=== PATIENT | female | born 1950 | race Caucasian/White ===

== ENCOUNTER 2016-06-29 10:37 | Day surgery (SDC) | payer OTHER ==
[2016-06-11 14:38] VITALS: BMI 43.0
--- NOTE | 2016-06-11 15:29 | PAT Medication Instructions ---
Service Date Jun 11, 2016. Current Home Medication List Aspirin (Aspirin Ec), 81 MG PO QAM Citalopram (Celexa *), 40 MG PO QAM Dicyclomine Hcl (Dicyclomine Hcl), 1-2 TAB PO QID PRN for RN Diphenoxylate/Atropine (Lomotil), 1 TAB PO QID PRN for RN Furosemide (Lasix), 40 MG PO QAM PRN for EDEMA Insulin Glargine (Lantus Solostar), 52 UNITS SQ BID Lisinopril (Zestril), 10 MG PO HS Lisinopril (Zestril), 5 MG PO QAM Lorazepam (Ativan), 0.5 MG PO TID Multivitamin (Multivitamin), 1 TAB PO QAM Omeprazole (Prilosec), 20 MG PO QAM Pramipexole (Mirapex), 0.25 MG PO HS Pregabalin (Lyrica), 150 MG PO BID Quetiapine Fumarate (Seroquel), 400 MG PO HS Rifaximin (Xifaxan), 550 MG PO TID Medication Instructions For Your Scheduled Surgery - Hold the following medications evening prior to surgery: Pramipexole (Mirapex), 0.25 MG PO HS Lisinopril (Zestril), 10 MG PO HS - Hold the following medications the morning of surgery: Multivitamin (Multivitamin), 1 TAB PO QAM Lisinopril (Zestril), 5 MG PO QAM Furosemide (Lasix), 40 MG PO QAM PRN for EDEMA Diphenoxylate/Atropine (Lomotil), 1 TAB PO QID PRN for RN Dicyclomine Hcl (Dicyclomine Hcl), 1-2 TAB PO QID PRN for RN Rifaximin (Xifaxan), 550 MG PO TID - Take the following medications the morning of surgery with a sip of water: Aspirin (Aspirin Ec), 81 MG PO QAM Citalopram (Celexa *), 40 MG PO QAM Pregabalin (Lyrica), 150 MG PO BID Omeprazole (Prilosec), 20 MG PO QAM Lorazepam (Ativan), 0.5 MG PO TID - Take the following medications as scheduled the night before surgery: Quetiapine Fumarate (Seroquel), 400 MG PO HS Pregabalin (Lyrica), 150 MG PO BLorazepam (Ativan), 0.5 MG PO TID Insulin Glargine (Lantus Solostar), 52 UNITS SQ BID Diphenoxylate/Atropine (Lomotil), 1 TAB PO QID PRN for RN Dicyclomine Hcl (Dicyclomine Hcl), 1-2 TAB PO QID PRN for RN Rifaximin (Xifaxan), 550 MG PO TID CHECK BLOOD SUGAR MORNING OF SURGERY ---If blood sugar is greater than 150, take half of your Lantus dose (Lantus 26 units) ---If blood sugar is less than 150, do not take any Lantus morning of surgery If you have any questions please call us at [phone] or [phone] ( [place]) or [phone]
--- NOTE | 2016-06-11 16:15 | DIAGNOSTIC IMAGING REPORT ---
TWO VIEW CHEST CLINICAL HISTORY: Preoperative examination. FINDINGS: PA and lateral chest radiographs are compared to study dated 02/28/2015. The cardiomediastinal silhouette is unremarkable. There is mild atherosclerotic calcification of the thoracic aorta. Chronic interstitial thickening is similar to previous. The lungs and pleural spaces are otherwise clear. Small calcified granulomas are suspected in the lower lobes. There is no pneumothorax. The skeletal structures are osteopenic. Mild degenerative change is noted throughout the thoracic spine. Cholecystectomy clips are seen in the right upper quadrant. IMPRESSION: No active disease in the chest. Electronically signed by: Leonard Landa M.D. 06/11/2016 4:13 PM Dictated Date/Time: 06/11/2016 4:12 PM
[2016-06-11 16:56] LABS: BASO % 0.4 %; BASO ABS # 0.02 K/uL (0-0.2); COMPLETE YES; EOS % 2.3 %; HEMATOCRIT 37.5 % (37-47); IG% 0.2 %; LYMPH % 29.1 %; LYMPH ABS # 1.52 K/uL (1.2-3.4); MEAN CELL VOLUME 85.4 fL (80-100); MEAN CORPUSCULAR HEMOGLOBIN 28.7 pg (25-34); MEAN CORPUSCULAR HGB CONC 33.6 g/dl (32-36); MEAN PLATELET VOLUME 11.7 fL (7.4-10.4); MONO % 8.4 %; NEUT % 59.6 %; PLATELET COUNT 210 K/uL (130-400); RED BLOOD COUNT 4.39 M/uL (4.2-5.4); WHITE BLOOD COUNT 5.23 K/uL (4.8-10.8)
[2016-06-11 17:09] LABS: PROTHROMBIN TIME (PATIENT) 10.7 SECONDS (9.0-12.0)
[2016-06-11 17:26] LABS: BUN/CREATININE RATIO 15.6 (10-20); CALCIUM 9.3 mg/dl (8.5-10.1); CREATININE 1.1 mg/dl (0.60-1.20); POTASSIUM 4.5 mmol/L (3.5-5.1)
--- NOTE | 2016-06-27 13:02 | HISTORY & PHYSICAL EXAMINATION ---
DATE OF ADMISSION: 06/29/2016 CHIEF COMPLAINT: Severe external impingement and small rotator cuff tear of the right shoulder. HISTORY OF PRESENT ILLNESS: Liane is a pleasant 66-year-old female who has been dealing with chronic right shoulder pain. MRI and clinical examination were diagnostic for severe external impingement with possible small cuff tear. After failing years of conservative treatment and multiple injections, she has elected to proceed with a right shoulder arthroscopy. She understands the risks, benefits, alternatives to the procedure and has elected to proceed. PAST MEDICAL HISTORY: Significant for anxiety, insulin-dependent diabetes, GERD, and obesity. PAST SURGICAL HISTORY: Significant for hysterectomy, cholecystectomy, left total knee arthroplasty and removal of scar tissue from her ovaries. MEDICATIONS: Include insulin 52 units twice a day, blood pressure medications 5 mg in the morning and 10 mg in the evening, Lomotil, Prilosec, Mirapex 0.25 mg at night, and Seroquel 400 mg at night. ALLERGIES: INCLUDE SHELLFISH, BEES AND KLONOPIN. FAMILY HISTORY: Noncontributory. SOCIAL HISTORY: She denies any tobacco, alcohol or IV drug use. She does little activity at this time. REVIEW OF SYSTEMS: She complains of right shoulder pain. All other pertinent review of systems is negative. PHYSICAL EXAMINATION: GENERAL: She is awake, alert and oriented x3. She is in no apparent distress. She is very pleasant. HEENT: Pupils are equal, round and reactive to light. Extraocular motion intact. Oral mucosa is pink and moist. VITAL SIGNS: Regular rate per radial pulse. LUNGS: [place] symmetrically bilaterally with no audible breath sounds. ABDOMEN: Soft, nontender, nondistended. MUSCULOSKELETAL: On physical examination of the right shoulder, she has 100 degrees of forward flexion, 100 degrees of abduction and a lot of pain at end ranges. She has significant tenderness to palpation in the subacromial space and a lot of pain over the AC joint. Very positive Neer and Nunn impingement signs. Her whole shoulder is basically sore. IMAGING: MRI of the shoulder shows severe external impingement with a small far anterior rotator cuff tear. There is also fluid in the AC joint and significant bursitis in the anterior subdeltoid space. IMPRESSION: Severe external impingement on the right shoulder with possible small cuff tear and AC joint arthritis. PLAN: I will proceed with a right shoulder arthroscopy to include decompression, possible rotator cuff repair and distal clavicle resection. Postoperatively, she will be placed in an arm sling and discharged to home on oral pain medications.
[~2016-06-29] VITALS: Ht 172.7 cm; Wt 129.0 kg
[~2016-06-29 10:37] MED LIST: ACETAMINOPHEN 500 MG TAB PO SCH; ASPI81TA28 PO; CEFAZOLIN 3000 MG/65 ML D5W 65 ML IV SCH; CLX20 PO; DICY10CA12 PO; DIPH-416 PO; FAMOTIDINE 20 MG TAB PO SCH; FRS/40 PO; GABAPENTIN 300 MG CAP PO SCH; INSDGIPEN SQ; LACTATED RINGER'S 1000ML 1,000 ML IV SCH; LISI-461 PO; LISI-729 PO; LORA-741 PO; MULT-506 PO; PRAM0.129 PO; PREG100C PO; PRLSR20 PO; QUET-206 PO; RIFA550T2 PO; ROPIVACAINE 0.5% 5 MG/ML 30 ML VIAL ONE
--- NOTE | 2016-06-29 10:49 | History & Physical Bridge Note ---
H&P Re-Evaluation Bridge Note: I have examined the patient, reviewed the History & Physical and in the interval since the performance of the History & Physical I have noted the following changes of clinical significance: No changes noted
[2016-06-29 11:13] VITALS: BP 126/69; PULSE 105; TEMP 36.9; O2SAT 92; Ht 172.7 cm; Wt 129.0 kg
[2016-06-29] MEDS ORDERED: ONDANSETRON INJ 2 MG/ML 2 ML VIAL ONE ×2 (11:54→14:06)
[2016-06-29] MEDS ORDERED: PROPOFOL IV EMULSION 10 MG/ML 20 ML VIAL IV ONE (11:54)
[2016-06-29] MEDS ORDERED: DEXAMETHASONE SOD INJ 4 MG/ML VIAL ONE (11:54)
[2016-06-29] MEDS ORDERED: LIDOCAINE HCL 2% 2 ML VIAL (20MG/ML) ONE (11:54)
[2016-06-29] MEDS ORDERED: MIDAZOLAM HCL 1 MG/ML 2ML VIAL ONE (11:55)
[2016-06-29] MEDS ORDERED: FENTANYL CITRATE INJ 50 MCG/1 ML 2 ML VIAL ONE (11:55)
[2016-06-29] MEDS ORDERED: KETOROLAC TROMETHAMINE 30 MG/ML VIAL IV. PRN (13:30)
[2016-06-29] MEDS ORDERED: FENTANYL CITRATE INJ 50 MCG/1 ML 2 ML VIAL IV PRN (13:30)
[2016-06-29] MEDS ORDERED: LABETALOL HCL IV 5 MG/ML 20ML IV PRN (13:30)
[2016-06-29] MEDS ORDERED: ONDANSETRON INJ 2 MG/ML 2 ML VIAL IV PRN ×2 (13:30→15:00)
[2016-06-29] MEDS ORDERED: ATROPINE SULFATE 0.1 MG/ML 5ML SYR IV PRN (13:30)
[2016-06-29] MEDS ORDERED: EpHEDrine SULFATE 50MG/5ML SYR ONE (13:58)
[2016-06-29] MEDS ORDERED: PHENYLEPHRINE HCL INJ 10 MG/ML VIAL ONE (14:10)
[2016-06-29] MEDS ORDERED: ROCURONIUM BROMIDE 10 MG/ML 5 ML VIAL ONE (14:28)
[2016-06-29] MEDS ORDERED: NEOSTIGMINE METHYLSULFATE 5 MG/5 ML SYR ONE (14:28)
[2016-06-29] MEDS ORDERED: GLYCOPYRROLATE INJ 0.2 MG/ML VIAL ONE (14:28)
--- NOTE | 2016-06-29 14:50 | OPERATIVE REPORT ---
DATE OF OPERATION: 06/29/2016 PREOPERATIVE DIAGNOSES: Severe external impingement of the right shoulder with possible small rotator cuff tear and acromioclavicular joint arthritis. POSTOPERATIVE DIAGNOSES: Severe external impingement with small rotator cuff tear of the right shoulder with acromioclavicular joint arthritis. PROCEDURES: Right shoulder diagnostic arthroscopy with limited debridement, acromioplasty, small traumatic rotator cuff repair and distal clavicle resection. SURGEON: Dr. Parker Cazares. PIPE COVERER HELPER: Mitul Vo PA-C, whose assistance was necessary for positioning the arm and helping with instrumentation. ANESTHESIA: General with a right interscalene nerve block. COMPLICATIONS: None. CONDITION: Stable to PACU. INDICATIONS: Liane is a pleasant 66-year-old female who presented to my office with complaints of right shoulder pain. MRI and clinical examination were diagnostic for severe external impingement, acromioclavicular joint arthritis and possible small cuff tear. After failing conservative treatment, she elected to undergo arthroscopy. DESCRIPTION OF PROCEDURE: On 06/29/2016, she arrived at the [facility] for the above procedures. She was seen in the preoperative holding area and the operative extremity was identified and signed. She was given a preoperative antibiotic and a right interscalene nerve block. She was taken back to the operating room, laid on the table in supine position and put under general anesthesia. She was then put into the beachchair position. The right shoulder was prepped and draped in sterile fashion. Time-out was done and the patient and operative extremity was properly identified. A scope was introduced in the posterior portal. Diagnostic arthroscopy showed no cartilage damage to the humeral head or the glenoid. There was a lot of fraying of the labrum. The biceps tendon was slightly frayed on the anterior aspect. The subscapularis was intact. There was a tear at the mid portion of the supraspinatus. The anterior cable of the supraspinatus was intact. The entire infraspinatus and teres minor were intact. An anterior portal was made. A shaver was used to do a limited debridement of the intraarticular structures and the biceps tendon was arthroscopically tenotomized. The scope was then put into the subacromial space. A lateral portal was made. A shaver was used to do a complete subacromial and subdeltoid bursectomy. An ablator was used to tease the coracoacromial ligament off the undersurface of the acromion and a 5-0 mami was used to complete an acromioplasty of a large Bigliani type 3 acromion. A shaver was used to remove any excess debris and attention was turned to the rotator cuff. An additional anterolateral portal was made and Tanya cannulas were placed in each of the lateral portals. A shaver was used to better define the tear. The greater tuberosity was prepared with a ring curette and a microfracture. The rotator cuff was then fixed with an Arthrex modified SpeedBridge configuration with a single 4.75-mm BioComposite SwiveLock suture anchors placed along the medial row and 2 fiber tapes were passed through the cuff and brought down to a single lateral row SwiveLock suture anchor. This gave a nice knotless repair. Multiple pictures were taken. Attention was turned to the distal clavicle. Through the anterior portal, a shaver and ablator were used to skeletonize the distal clavicle. A 5-0 mami was then used to resect the distal 5 mm from the clavicle. Complete resection was checked under direct visualization. A final debris was removed. No other pathology was found. Arthroscopic instruments were removed from the shoulder. Portal sites were closed with 3-0 nylon. She was then placed in a soft dressing and a regular arm sling. She was then extubated, transferred to a litter and taken to the postanesthesia care unit in stable condition. She tolerated the procedure well. I attest to the content of the Intraoperative Record and any orders documented therein. Any exceptio ns are noted below.
[2016-06-29] MEDS ORDERED: OXYC-57 PO (14:56)
[2016-06-29] MEDS ORDERED: SODIUM CHLORIDE 0.9% 1000ML 1,000 ML IV SCH (14:57)
--- NOTE | 2016-06-29 14:57 | Discharge Instructions ---
Discharge Instructions Admission Reason for Admission: Right Shoulder Impingement Syndrome, Pain, Full Th Discharge Discharge Diagnosis / Problem: SAME ABOVE Discharge Goals Goal(s): Decrease discomfort, Improve function Activity Recommendations Activity Limitations: as noted below Lifting Limitations: until after follow-up appointment Exercise/Sports Limitations: until after follow-up appointment Shower/Bathe: may shower/bathe in 3 days . Instructions / Follow-Up Instructions / Follow-Up MEDICATIONS: * Resume previous medications unless instructed otherwise by your surgeon. * Always take pain medication on a full stomach or with food to avoid upset stomach. * Do not drink alcohol or drive while taking narcotics. * Ibuprofen or Tylenol may be taken if narcotic not needed. SPECIAL CARE INSTRUCTIONS: __ None _X_ Keep extremity elevated and iced x 48 hours; apply ice 20-30 minutes 8-10 times/day. May remove at night. _X_ Sling (MAY REMOVE AFTER 48 HOURS ONLY TO SHOWER AND FOR THERAPY) _X_24 hrs/day __ Remove at night __ Shoulder Immobilizer __ 24 hrs/day __ Remove at night _X_ Dressing __ Maintain until seen in office, may shower with plastic over site _X_ Remove dressings in 24-48 hours and then may shower _X_ Cover incisions with band-aids after showering __ Do not remove steri-strips Call physician if chills or temperature rises above 102 degrees or pain unrelieved by prescribed pain medications at . . Current Hospital Diet Patient's current hospital diet: Discharge Diet Recommended Diet: Regular Diet Fluid Restriction: None Procedures Procedures Performed: Right Shoulder arthroscopy, Rotator cuff repair, Acromioplasty, distal- clavicle repair Pending Studies Studies pending at discharge: no Medical Emergencies . Who to Call and When: Medical Emergencies: If at any time you feel your situation is an emergency, please call 911 immediately. . Non-Emergent Contact Non-Emergency issues call your: Primary Care Provider Call Non-Emergent contact if: you have a fever, temperature is above 101.5 . "Provider Documentation" section prepared by Pranav Vo. VTE Core Measure Inpt VTE Proph given/why not?: Treatment not indicated
[2016-06-29] MEDS ORDERED: OXYCODONE/ACETAMINOPHEN 5-325 TAB PO PRN ×2 (15:00)
--- NOTE | 2016-06-29 15:39 | Anesthesiology Progress Note ---
Anesthesia Post Op Note Date & Time Jun 29, 2016 at 15:39 Vital Signs Pain Intensity: 0 Vital Signs Past 12 Hours Date Time Temp Pulse Resp B/P Pulse Ox O2 Delivery O2 Flow Rate FiO2 06/29/16 15:30 36.2 91 16 108/68 97 Nasal Cannula 2 06/29/16 15:20 36.2 94 16 122/53 94 Nasal Cannula 3 06/29/16 15:10 93 16 101/61 95 Mask 15 06/29/16 15:00 95 16 106/62 92 Mask 15 06/29/16 14:53 36.4 102 16 112/61 93 Mask 15 06/29/16 11:13 36.9 105 20 126/69 92 Room Air Notes Mental Status: alert / awake / arousable, participated in evaluation Pt Amnestic to Procedure: Yes Nausea / Vomiting: adequately controlled Pain: adequately controlled Airway Patency, RR, SpO2: stable & adequate BP & HR: stable & adequate Hydration State: stable & adequate Anesthetic Complications: no major complications apparent
[2016-06-29 15:50] VITALS: BP 96/64; PULSE 89; TEMP 36.5; O2SAT 92
[2016-06-29 16:20] VITALS: BP 101/58; PULSE 89; TEMP 36.7; O2SAT 93
[2016-06-29 16:40] VITALS: BP 141/83; PULSE 98; TEMP 36.3; O2SAT 93
--- NOTE | 2016-06-29 17:17 | [facility] Post Operative Brief Note ---
Immediate Operative Summary Operative Date Jun 29, 2016. Pre-Operative Diagnosis Severe external impingement on the right shoulder with small cuff tear and acromioclavicular joint arthritis Post-Operative Diagnosis Severe external impingement on the right shoulder with small cuff tear and acromioclavicular joint arthritis Procedure(s) Performed Right Shoulder arthroscopy, Rotator cuff repair, Acromioplasty, distal- clavicle repair Surgeon Dr. Parker Cazares Dental Hygiene Instructor Surgeon(s) Pranav Vo Estimated Blood Loss 5 ML Findings as above Specimens None per surgeon Complication(s) None Disposition Recovery Room / PACU
== END 2016-06-29 16:50 | disposition home or self-care (01) ==
LOC: C.ACU 10:37
PROVIDERS: ATTEND Orthopaedic Surgery
DX: M25.811 Other specified joint disorders, right shoulder (principal); M75.101 Unspecified rotator cuff tear or rupture of right shoulder, not specified as traumatic; E11.9 Type 2 diabetes mellitus without complications; K21.9 Gastro-esophageal reflux disease without esophagitis; E66.9 Obesity, unspecified; Z79.4 Long term (current) use of insulin; Z79.899 Other long term (current) drug therapy; Z98.890 Other specified postprocedural states

== ENCOUNTER → 2016-10-07 | Outpatient (CLI) | payer OTHER ==
[~2016-10-07] MED LIST changes: -ACETAMINOPHEN 500 MG TAB PO SCH; -CEFAZOLIN 3000 MG/65 ML D5W 65 ML IV SCH; +CITA40TA4 PO; +CLON0.5T3 PO; +DICL1GEL12 TOP; -FAMOTIDINE 20 MG TAB PO SCH; +FLVHFA110 INH; -GABAPENTIN 300 MG CAP PO SCH; +HYDR-5688 PO; -LACTATED RINGER'S 1000ML 1,000 ML IV SCH; -LORA-741 PO; +MELO7.5T5 PO; +METH1TAB7 PO; +NVLG SQ; +OXYC-57 PO; +PREG1CAP70 PO; +QUET400T PO; -ROPIVACAINE 0.5% 5 MG/ML 30 ML VIAL ONE; +VNTHFA/IN INH
--- NOTE | 2016-10-07 13:09 | DIAGNOSTIC IMAGING REPORT ---
CHEST 2 VIEWS ROUTINE CLINICAL HISTORY: Cough. Congestion. COMPARISON STUDY: Chest radiograph June 11, 2016. FINDINGS: Lung volumes are normal. No pneumothorax or pleural effusion is present. There is no consolidation to suggest pneumonia. Pulmonary vascularity is normal. There are cholecystectomy clips. Cardiomediastinal silhouette is normal. A left lower lung nodular density is unchanged from earlier studies. This is benign. IMPRESSION: No acute cardiopulmonary findings. Electronically signed by: Nolan Gastelum M.D. 10/07/2016 1:08 PM Dictated Date/Time: 10/07/2016 1:06 PM
== END | disposition home or self-care (01) ==
LOC: C.RAD 12:00
PROVIDERS: ATTEND Physician Assistant Medical
DX: J22 Unspecified acute lower respiratory infection (principal)

== ENCOUNTER 2017-01-22 11:30 | Emergency (ER) | payer OTHER ==
[~2017-01-22] VITALS: Ht 172.7 cm; Wt 120.6 kg
[~2017-01-22 11:30] MED LIST changes: -CITA40TA4 PO; -CLON0.5T3 PO; -DICL1GEL12 TOP; -FLVHFA110 INH; -HYDR-5688 PO; -MELO7.5T5 PO; -METH1TAB7 PO; -NVLG SQ; -OXYC-57 PO; -PREG1CAP70 PO; -QUET400T PO; -VNTHFA/IN INH
[2017-01-22 11:37] VITALS: TEMP 36.8; Ht 172.7 cm; Wt 120.6 kg
[2017-01-22] MEDS ORDERED: PREG1CAP70 PO (12:29)
[2017-01-22] MEDS ORDERED: QUET400T PO (12:29)
[2017-01-22] MEDS ORDERED: CITA40TA4 PO (12:29)
[2017-01-22] MEDS ORDERED: METH1TAB7 PO (12:30)
--- NOTE | 2017-01-22 12:50 | DIAGNOSTIC IMAGING REPORT ---
RIGHT FOOT MIN 3 VIEWS ROUTINE, RIGHT ANKLE MIN 3 VIEWS ROUTINE HISTORY: 66 years-old Female R ankle and foot pain; twisted last week Right COMPARISON: Right foot radiographs 09/28/2015 TECHNIQUE: 3 views of the right foot and 3 views of the right ankle FINDINGS: FOOT: Bones are mildly demineralized. Prominent spurring involving the base of the fifth metatarsal is redemonstrated. Mild first MTP joint degenerative changes noted. Nonspecific sclerosis involve the base of the fifth proximal phalanx. No acute fracture or dislocation is identified. Moderate soft tissue swelling is noted about the ankle with small joint effusion. Moderate tibiotalar degenerative changes are noted with prominent spurring about the plantar surface of the calcaneus. Mild dorsal forefoot soft tissue swelling also noted. ANKLE: No acute fracture, dislocation or osteochondral defect. Moderate soft tissue swelling is noted about the ankle, greatest medially with small joint effusion. Moderate tibiotalar degenerative changes are noted. There is prominent spurring of the plantar surface calcaneus. Mild pes planus deformity. IMPRESSION: 1. Moderate soft tissue swelling about the ankle, greatest medially with small joint effusion. No acute bony abnormality of the right foot or ankle. 2. Degenerative changes as above. The above report was generated using voice recognition software. It may contain grammatical, syntax or spelling errors. Electronically signed by: Caleb Campos M.D. 01/22/2017 12:49 PM Dictated Date/Time: 01/22/2017 12:45 PM
[2017-01-22] MEDS ORDERED: HYDR-5688 PO (13:16)
[2017-01-22 13:34] VITALS: BP 124/106; PULSE 79; O2SAT 93
--- NOTE | 2017-01-23 08:46 | EMERGENCY ROOM VISIT NOTE ---
ED Visit Note First contact with patient: 11:46 Chief Complaint: Right ankle and foot pain. History of Present Illness: Ms. Alejandre is a 66-year-old white female who is brought into the ED via wheelchair complaining of right lateral ankle and right foot pain. Patient reports approximately one week ago she was walking up a flight of stairs. Somebody called her from behind and she twisted her body and reports that in the process she twisted her right ankle and foot. Since that time she has been having pain and swelling over the lateral aspect of the right ankle and the lateral aspect of the foot. She reports initially was mild and has gradually increased in intensity. Currently she describes her pain as a sharp and burning sensation. She rates her discomfort 9/10. She feels that the ankle pain is actually radiating into the foot and it also radiates into the lower tibia/fibula area. She has been taken ibuprofen without relief of her discomfort. Ambulation, weightbearing, inversion, plantar flexion and palpation increases her discomfort. She has not identified any alleviating factors related to the pain. Associated with her pain she has noted swelling; historically she has a history of peripheral neuropathy and reports she always has paresthesias or numbness in the feet and this has not worsened since her injury. She denies hip pain, knee pain. She denies any previous significant injuries or surgeries to her ankle or foot. Review of Systems: As noted above in history of present illness. Past Medical History: Diabetes, hypertension, asthma, unspecified urinary symptoms, status post cholecystectomy, hysterectomy cardiac tumor removal and I& D of perianal abscess. Current Medications: Prilosec, Zestril, Lantus, multivitamins, Lasix, Lomotil, Seroquel, Lyrica, citalopram, Mirapex, Xifaxan, methscopolamine, multivitamins. Allergies to Medications: Clonazepam, colestipol, diphenhydramine, doxycycline, hydralazine, iodine, pseudoephedrine, glyburide, aspartame, at [place], tramadol , glyburide, pioglitazone, rosuvastatin. Social History: Patient is not employed; she feels safe in her home environment ; she denies tobacco and alcohol use. Physical Examination: Vital Signs: Date Time Temp Pulse Resp B/P (MAP) Pulse Ox O2 Delivery O2 Flow Rate FiO2 01/22/17 13:34 79 16 124/106 93 01/22/17 11:37 36.8 95 20 133/77 94 Room Air GENERAL: 66-year-old female in moderate distress due to pain, nontoxic-appearing , afebrile and hemodynamically stable. NEUROLOGICAL: Awake, alert and oriented to person, place and time. Answering questions appropriately and following commands. SKIN: Warm, dry and pink. No soft tissue trauma noted. RIGHT LOWER EXTREMITY: No gross bony deformity. No shortening or malrotation. No tenderness over the hip, thigh, knee or proximal lower leg. Moderate tenderness over the distal aspect of the femur without bony deformity, bony crepitus, swelling or ecchymosis. Moderate tenderness over the lateral ankle with no bony deformity or bony crepitus. There is swelling around the malleolus but no ecchymosis. I did not appreciate any ligamentous laxity on testing. Mild tenderness over the medial malleolus with mild swelling but no bony deformity, bony crepitus or ecchymosis. Over the lateral aspect of the foot including the lateral cuneiform and fourth and fifth metatarsals patient had moderate tenderness without bony deformity or crepitus. There is mild swelling in this area but no ecchymosis. Throughout the foot the skin was warm and pink and capillary refill was brisk. Distal pulses were intact. She was not able to distinguish light sensations because of her neuropathy. ED Course: Patient is assessed as noted above. Patient's medication list was reviewed. Patient was offered pain medication and refused. Right Foot X-Rays: Were read by myself and the radiologist showing no acute fractures or dislocations. Moderate soft tissue swelling noted about the ankle with a small joint effusion and moderate tibiotalar degenerative changes. Right Ankle X-Rays: Were read by myself and the radiologist once again showing no acute fractures or dislocations. Moderate swelling was once again noted as well as degenerative changes. Patient's case was reviewed with Dr. Wisdom; she apparently assessed the patient we agreed on diagnostic approach, treatment, disposition and plan. Patient was placed in a gel splint; she was offered a walker but reported she had walker at home. Patient was educated about today's findings and instructed on her treatment plan ; she verbalizes understanding and agreement with this plan. Clinical Impression: Right ankle pain and right foot pain. Disposition: Patient discharged home in stable condition; prior to departure she was reassessed and subjectively reported she was feeling slightly better and rated her discomfort 7/10. Plan: Comfort measures were discussed with the patient including rest, ice, elevation , gel splint and walker use and she was placed on a sliding pain medication scale of acetaminophen and [place]; she was given appropriate narcotic precautions and her name was checked in the state database and no red flags were noted. Patient was encouraged to follow-up with cryptologic support specialist if no better in 5 -6 days. Patient was encouraged return ED for worsening/uncontrolled pain, uncontrolled swelling, worsening numbness/tingling of the foot or any new/concerning symptoms.
== END 2017-01-22 13:35 | disposition home or self-care (01) ==
LOC: C.EDB 11:31 → C.EDD 13:35
DX: M25.571 Pain in right ankle and joints of right foot (principal); M79.671 Pain in right foot; E11.9 Type 2 diabetes mellitus without complications; I10 Essential (primary) hypertension; J45.909 Unspecified asthma, uncomplicated; Z90.710 Acquired absence of both cervix and uterus; Z90.49 Acquired absence of other specified parts of digestive tract; Z79.4 Long term (current) use of insulin; Z79.899 Other long term (current) drug therapy; Z88.8 Allergy status to other drugs, medicaments and biological substances

== ENCOUNTER 2017-01-29 11:56 | Emergency (ER) | payer OTHER ==
[~2017-01-29] VITALS: Ht 172.7 cm; Wt 130.7 kg
[~2017-01-29 11:56] MED LIST changes: -ASPI81TA28 PO; +CITA40TA4 PO; -CLX20 PO; -DICY10CA12 PO; +HYDR-5688 PO; +METH1TAB7 PO; -PREG100C PO; +PREG1CAP70 PO; -QUET-206 PO; +QUET400T PO
[2017-01-29 12:16] VITALS: TEMP 37.1; Ht 172.7 cm; Wt 130.7 kg
[2017-01-29] MEDS ORDERED: MELO7.5T5 PO (12:29)
[2017-01-29] MEDS ORDERED: NVLG SQ (12:32)
[2017-01-29] MEDS ORDERED: VNTHFA/IN INH (12:32)
[2017-01-29] MEDS ORDERED: DICL1GEL12 TOP (12:32)
[2017-01-29] MEDS ORDERED: CLON0.5T3 PO (12:32)
[2017-01-29] MEDS ORDERED: FLVHFA110 INH (12:32)
--- NOTE | 2017-01-29 13:21 | DIAGNOSTIC IMAGING REPORT ---
RIGHT ANKLE 3 VIEWS CLINICAL HISTORY: Right ankle pain. FINDINGS: 3 views of the right ankle are compared to study dated 01/22/2017. The skeletal structures are osteopenic. There is increasing periostitis identified along the distal fibular shaft, likely related to a healing fracture. No acute fracture is seen. The ankle mortise is intact. Degenerative spurring is noted along the anterior tibial plafond and the dorsal aspect of the tarsal bones. There is a large plantar calcaneal enthesophyte. There is a joint effusion as well as soft tissue swelling around the ankle. IMPRESSION: 1. Increasing periostitis is noted along the distal fibular shaft, likely represent a healing fracture/stress fracture. Clinical correlation will be required. 2. Joint effusion and soft tissue swelling. 3. Osteopenia, degenerative change, and large plantar heel spur as above. Electronically signed by: Leonard Landa M.D. 01/29/2017 1:20 PM Dictated Date/Time: 01/29/2017 1:18 PM
[2017-01-29] MEDS ORDERED: HYDR-5688 PO (14:23)
[2017-01-29 14:46] VITALS: BP 104/60; PULSE 94; O2SAT 95
--- NOTE | 2017-01-30 14:22 | EMERGENCY ROOM VISIT NOTE ---
ED Visit Note First contact with patient: 12:27 Chief Complaint: Right ankle pain. History of Present Illness: Ms. Alejandre is a 66-year-old white female who ambulates into the ED with a gel splint on her right ankle complaining of right lateral ankle foot pain. She reports she was seen in the ED last week and was diagnosed with arthritis in her ankle and foot; I saw the patient last week and she was diagnosed with an ankle sprain and told there was degenerative changes related to arthritis in her ankle or foot. She reports since being discharged she has been wearing her ankle splint but because she could not ambulate on crutches she was instructed to use a walker. She reports she uses a walker only at home but does not take it with her. A she reports she's been having ongoing pain over the lateral ankle and lower leg since being discharged. She reports she has contacted Dr. Titus's office for follow-up but has not been given an appointment because he has no openings. Currently she describes the pain as an achy sensation at rest that becomes sharp with ambulation and palpation. She rates her discomfort 9.5/10. Her pain is nonradiating. Her pain worsens with all movement of the ankle, weightbearing, ambulation and palpation. She does report last week she did trip over the sidewalk but did not really injure her ankle. She denies any associated pain including knee pain, foot pain, leg weakness/numbness/tingling. On her last visit she was given [place] for pain and she reports she used her last tablet today; she also reports that was controlling most of her discomfort. Review of Systems: As noted above in history of present illness. Past Medical History: Diabetes, hypertension, asthma, unspecified urinary symptoms, status post cholecystectomy, hysterectomy cardiac tumor removal and I& D of perianal abscess. Current Medications: Prilosec, Zestril, Lantus, multivitamins, Lasix, Lomotil, Seroquel, Lyrica, citalopram, Mirapex, Xifaxan, methscopolamine, multivitamins. Allergies to Medications: Clonazepam, colestipol, diphenhydramine, doxycycline, hydralazine, iodine, pseudoephedrine, glyburide, aspartame, at [place], tramadol , glyburide, pioglitazone, rosuvastatin. Social History: Patient is not employed; she feels safe in her home environment ; she denies tobacco and alcohol use. Physical Examination: Vital Signs: Date Time Temp Pulse Resp B/P (MAP) Pulse Ox O2 Delivery O2 Flow Rate FiO2 01/29/17 14:46 94 104/60 95 01/29/17 14:13 73 16 104/60 97 01/29/17 12:16 37.1 96 18 116/66 95 Room Air GENERAL: 66-year-old female in mild distress due to pain, nontoxic-appearing, afebrile and hemodynamically stable. NEUROLOGICAL: Awake, alert and oriented to person, place and time. Answering questions appropriately and following commands. SKIN: Warm, dry and pink. No soft tissue trauma noted. RIGHT LOWER EXTREMITY: No gross bony deformity. No shortening or malrotation. No tenderness over the hip, thigh, knee or proximal lower leg. Moderate tenderness over the distal aspect of the femur without bony deformity, bony crepitus, swelling or ecchymosis. Moderate tenderness over the lateral ankle with no bony deformity or bony crepitus. There is swelling around the malleolus but no ecchymosis. I did not appreciate any ligamentous laxity on testing. No tenderness over the medial malleolus. Decreased range of motion at the ankle due to pain. No tenderness throughout the foot. Throughout the foot the skin was warm and pink and capillary refill was brisk. Distal pulses were intact. She was not able to distinguish light sensations because of her neuropathy. ED Course: Patient is assessed as noted above. Patient's medication list was reviewed. Right Ankle X-Rays: Were read by myself and the radiologist showing increasing periostitis along the shaft of the distal fibula likely representing a healing/ stress fracture. Joint effusion with soft tissue swelling. Osteopenia, degenerative changes and large plantar calcaneal spur. Patient was placed in a Ortho-Glass ankle stirrup splint. She was encouraged to continue to use her walker. Patient was educated about today's findings and instructed on her treatment plan ; she verbalizes understanding and agreement with this plan. Clinical Impression: Healing right distal fibula fracture. Disposition: Patient discharged home in stable condition; prior to departure she was reassessed and subjectively reported she was feeling slightly better and rated her discomfort 7/10. Plan: Comfort measures were discussed with the patient including rest, ice, elevation , gel splint and walker use and she was placed on a sliding pain medication scale of acetaminophen and [place]; she was given appropriate narcotic precautions and her name was checked in the state database and no red flags were noted. Patient was encouraged to follow-up with orthopedic or definitive care and treatment. Patient was encouraged return ED for worsening/uncontrolled pain, uncontrolled swelling, worsening numbness/tingling of the foot or any new/concerning symptoms.
== END 2017-01-29 14:47 | disposition home or self-care (01) ==
LOC: C.EDB 11:57 → C.EDD 14:47
DX: S82.401D Unspecified fracture of shaft of right fibula, subsequent encounter for closed fracture with routine healing (principal); X58.XXXD Exposure to other specified factors, subsequent encounter; E11.9 Type 2 diabetes mellitus without complications; I10 Essential (primary) hypertension; J45.909 Unspecified asthma, uncomplicated; Z90.49 Acquired absence of other specified parts of digestive tract; Z90.710 Acquired absence of both cervix and uterus; Z79.4 Long term (current) use of insulin; Z79.899 Other long term (current) drug therapy

== ENCOUNTER → 2017-02-13 | Outpatient (CLI) | payer OTHER ==
[~2017-02-13] MED LIST changes: +CLON0.5T3 PO; +DICL1GEL12 TOP; +FLVHFA110 INH; +MELO7.5T5 PO; +NVLG SQ; +VNTHFA/IN INH
--- NOTE | 2017-02-13 13:40 | DIAGNOSTIC IMAGING REPORT ---
RIGHT ANKLE 3 VIEWS CLINICAL HISTORY: Right fibular fracture follow-up. FINDINGS: 3 views of the right ankle are compared to study dated 01/29/2017. A wrap is present around the foot and ankle. The skeletal structures are osteopenic. There is increasing periostitis identified along the distal fibular shaft as compared to 01/29/2017, likely related to a healing fracture. No acute fracture is seen. The ankle mortise is intact. Degenerative spurring is noted along the anterior tibial plafond and the dorsal aspect of the tarsal bones. There is a large plantar calcaneal enthesophyte. There is a joint effusion as well as soft tissue swelling around the ankle. IMPRESSION: 1. Increasing periostitis is noted along the distal fibular shaft, likely represent a healing fracture/stress fracture. Follow-up to resolution is recommended. 2. Joint effusion and soft tissue swelling. 3. Osteopenia, degenerative change, and large plantar heel spur as above. Electronically signed by: Leonard Landa M.D. 02/13/2017 1:38 PM Dictated Date/Time: 02/13/2017 1:37 PM
--- NOTE | 2017-02-26 13:17 | CODING QUERY MEDICAL NECESSITY ---
SUPPORTING DIAGNOSIS NEEDED Luis Miguel HARMON-Demetria, A supporting diagnosis is required for the test/procedure performed on this patient in order for us to be reimbursed by the patient's insurance. Please provide a supporting diagnosis for the following test/procedure listed below next to the test name along with your signature. *If there is no additional diagnosis for this patient that would support the following test/procedure please document that below next to the test/procedure. Test(s)/Procedure(s) that require a supporting diagnosis: * ([id number]) VITAMIN D ASSAY DIAGNOSIS: DATE OF SERVICE: 02/13/17 Provider Signature: Date: Thank you Ernie Kwan [facility] Information Management Once completed, please kindly fax back to [phone] For questions please call [phone]
== END | disposition home or self-care (01) ==
LOC: C.RDSM 12:26
PROVIDERS: ATTEND Physician Assistant
DX: S82.424A Nondisplaced transverse fracture of shaft of right fibula, initial encounter for closed fracture (principal); X58.XXXA Exposure to other specified factors, initial encounter; M84.363A Stress fracture, right fibula, initial encounter for fracture

== ENCOUNTER → 2017-02-13 | Outpatient (CLI) | payer OTHER ==
--- NOTE | 2017-02-26 13:06 | CODING QUERY MEDICAL NECESSITY ---
SUPPORTING DIAGNOSIS NEEDED Luis Miguel HARMON-Demetria, A supporting diagnosis is required for the test/procedure performed on this patient in order for us to be reimbursed by the patient's insurance. Please provide a supporting diagnosis for the following test/procedure listed below next to the test name along with your signature. *If there is no additional diagnosis for this patient that would support the following test/procedure please document that below next to the test/procedure. Test(s)/Procedure(s) that require a supporting diagnosis: * ([id number]) VITAMIN D ASSAY DIAGNOSIS: DATE OF SERVICE: 02/13/17 Provider Signature: Date: Thank you Ernie Kwan [facility] Information Management Once completed, please kindly fax back to [phone] For questions please call [phone]
== END | disposition home or self-care (01) ==
LOC: C.LAB1850 14:05
PROVIDERS: ATTEND Physician Assistant
DX: M84.363A Stress fracture, right fibula, initial encounter for fracture (principal)

== ENCOUNTER → 2017-04-16 | Outpatient (CLI) | payer OTHER ==
--- NOTE | 2017-04-16 10:05 | DIAGNOSTIC IMAGING REPORT ---
R ANKLE MIN 3 VIEWS CLINICAL HISTORY: RIGHT FIBULAR FRACTURE COMPARISON: 02/13/2017 DISCUSSION: Distal fibular fracture with abundant callus formation. The fracture line appears more evident. This could indicate incomplete bony union. No tibial fractures are visualized. The ankle mortise appears intact. There is a plantar calcaneal spur. IMPRESSION: Distal fibular fracture with abundant callus formation. The fracture line is more evident, a finding which may indicate incomplete bony union. Electronically signed by: Jayesh Hamilton M.D. 04/16/2017 10:03 AM Dictated Date/Time: 04/16/2017 10:01 AM
== END | disposition home or self-care (01) ==
LOC: C.RDSM 11:14
PROVIDERS: ATTEND Physician Assistant
DX: S82.301A Unspecified fracture of lower end of right tibia, initial encounter for closed fracture (principal); X58.XXXA Exposure to other specified factors, initial encounter

== ENCOUNTER 2017-08-05 11:26 | Emergency (ER) | payer OTHER ==
[~2017-08-05] VITALS: Ht 172.7 cm; Wt 135.3 kg
[~2017-08-05 11:26] MED LIST changes: -HYDR-5688 PO; +PRAM0.1212 PO; -PRAM0.129 PO
[2017-08-05 11:29] VITALS: Ht 172.7 cm; Wt 135.3 kg
[2017-08-05] MEDS ORDERED: ATOR-22 PO (12:02)
[2017-08-05] MEDS ORDERED: OXYCODONE/ACETAMINOPHEN 5-325 TAB PO ONE (12:30)
--- NOTE | 2017-08-05 12:57 | EMERGENCY ROOM VISIT NOTE ---
ED Visit Note First contact with patient: 11:34 The patient was seen and examined with Misti CHAPMAN. I agree with the history, physical and findings. Please see the note for disposition and details.
[2017-08-05] MEDS ORDERED: LIDOCAINE/EPINEPHRINE 1% 20 ML VIAL INFIL ONE (13:15)
[2017-08-05] MEDS ORDERED: SULFAMETHOXAZOLE/TRIMETHOPRIM DS 800/160MG TAB PO STA (13:39)
[2017-08-05] MEDS ORDERED: CEPHALEXIN MONOHYDRATE 250 MG CAP PO ONE (13:45)
[2017-08-05] MEDS ORDERED: SULF800T23 PO (14:16)
[2017-08-05] MEDS ORDERED: CEPH500C PO (14:16)
--- NOTE | 2017-08-05 14:19 | EMERGENCY ROOM VISIT NOTE ---
ED Visit Note First contact with patient: 11:34 CHIEF COMPLAINT: Infection of the right forehead HISTORY OF PRESENT ILLNESS: This 67-year-old female patient presents to the emergency department by private vehicle with her friend after they noticed a hard, red, tender area on the right forehead. She states the area initially started as a pimple that was very painful and has progressively gotten larger, more painful and tender. She states that now her pain is severe and wraps around her entire head and spreads down both sides of her face. She denies any eye redness, pain, or vision changes. No fever, chills, or loss of appetite. There has been no drainage from the area. There was no injury to the area preceding the infection. They rate the pain as dull and aching and 7/10. Tetanus shot is up to date. They have tried no medications for the pain. The patient is a diabetic. The patient has no history of subcutaneous abscesses. She states she is here because she is concerned this might be shingles, as she had an episode of shingles one year ago on the other side of her forehead that seemed similar. She denies neck pain or stiffness, vision changes, chest pain, shortness of breath, abdominal pain, nausea or vomiting, urinary symptoms. REVIEW OF SYSTEMS: A review of systems was performed with positives and pertinent negatives listed in the history of present illness. All other systems were reviewed and are negative. ALLERGIES: Reviewed in chart. MEDICATIONS: Reviewed in chart. PMH: Reviewed in chart. SOCIAL HISTORY: Lives at home. She is not a smoker. PHYSICAL EXAM: Vital Signs: Reviewed Nurse's notes, vital signs stable. CONSTITUTIONAL: Pleasant and cooperative. No acute distress, but appears to be in pain. Well appearing and well nourished. HEENT: Normocephalic. There is an erythematous, raised and indurated area on the right lateral forehead which measures about 3 cm in diameter. It is fluctuant with central pointing and small scab, but no drainage. There is a zone of inflammation around it but no lymphangitis. PERRL, EOMI, normal conjunctiva and sclera clear bilaterally. Fluorescein uptake was observed with ultraviolet light under slit lamp, noting no dendritic lesions. TMs normal. Pharynx normal. NECK: Supple, full active range of motion without discomfort. No cervical adenopathy. RESPIRATORY: Clear to auscultation bilaterally with no wheezing, crackles, rhonchi or stridor. Equal expansion bilaterally. CARDIOVASCULAR: Regular rate and rhythm with no murmurs, rubs or gallops. Normal peripheral perfusion. No edema. GASTROINTESTINAL: Soft, nontender, nondistended. Bowel sounds present in all quadrants. MUSCULOSKELETAL: Full range of motion of all joints without discomfort. INTEGUMENTARY: No rash or other significant dermatologic conditions noted. NEUROLOGIC: Alert and oriented 4. Cranial nerves II-XII grossly intact. No focal neurologic deficits noted. Normal speech. EMERGENCY DEPARTMENT COURSE: I examined the patient. Differential diagnosis includes rash, abscess, cellulitis, herpes zoster, MRSA, among others. Patient' s history and presentation do not seem consistent with herpes zoster, as her symptoms began as a pimple and has grown larger into a small abscess with surrounding cellulitis. Slit-lamp was performed to the right eye with fluorescein stain, confirming no dendritic lesions to suggest that this is a zoster infection. I obtained verbal consent from the patient to perform the procedure. After chlorhexidine cleansing and 2 mL of 1% buffered lidocaine with epinephrine anesthesia, the abscess was incised with a number 11 scalpel blade. A small amount of purulent material was released with more expressed by pressure. A wound culture was obtained and sent to the lab. The abscess cavity was fully expressed. The abscess cavity was then copiously irrigated with sterile saline under pressure. The wound itself is quite superficial, with no need for packing. After drainage, it was again cleansed with chlorhexidine, bacitracin and Band-Aid were applied. The patient tolerated the procedure well. Hemostasis was achieved. Patient does report a history of exposure to MRSA, will cover for this with Bactrim, as well as Keflex, Rx sent to the pharmacy and patient was given her first doses in the ED. Patient was educated regarding wound care, follow-up, and return precautions, she verbalized understanding. The patient was discharged home in stable condition and ambulatory. Problem List Medical Problems: (1) Allergic rhinitis Status: Chronic (2) Anxiety Status: Chronic (3) Depression Status: Chronic (4) DJD (degenerative joint disease), cervical Status: Chronic (5) DM type 2 (diabetes mellitus, type 2) Status: Chronic (6) Dyslipidemia Status: Chronic (7) GERD (gastroesophageal reflux disease) Status: Chronic (8) Hypertension Status: Chronic (9) IBS (irritable bowel syndrome) Status: Chronic (10) Left Knee DJD Status: Resolved (11) Neuropathy in diabetes Status: Chronic (12) Opioid withdrawal delirium Status: Resolved (13) Osteoporosis Status: Chronic (14) Oxycodone use disorder, severe, dependence Status: Chronic (15) Panic disorder Status: Chronic (16) Venous insufficiency Status: Chronic Surgical Problems: (1) H/O arthroscopic knee surgery Status: Chronic (2) H/O colonoscopy Permanent Comment: 12/07/14- ischemic colitis, hyperplastic polyp Status: Chronic (3) S/P cholecystectomy Status: Chronic (4) S/P hysterectomy Status: Chronic (5) s/p left lung/lymph node biopsy Status: Chronic (6) Total knee replacement status Status: Resolved Current/Historical Medications Scheduled Albuterol Hfa (Ventolin Hfa), 2-4 PUFFS INH Q6H Atorvastatin (Lipitor), 20 MG PO DAILY Cephalexin Monohydrate (Keflex), 500 MG PO QID Citalopram (Citalopram Hydrobromide), 40 MG PO DAILY Fluticasone Propionate (Flovent Hfa), 2 PUFFS INH BID Insulin Aspart (Novolog), 6 UNITS SQ TIDM Insulin Glargine (Lantus Solostar), 52 UNITS SQ BID Lisinopril (Zestril), 10 MG PO HS Lisinopril (Zestril), 5 MG PO QAM Multivitamin (Multivitamin), 1 TAB PO QAM Omeprazole (Prilosec), 20 MG PO QAM Pramipexole (Mirapex), 0.25 MG PO HS Pregabalin (Lyrica), 150 MG PO BID Quetiapine Fumarate (Seroquel), 400 MG PO HS Sulfa/Trimethoprim (Bactrim Ds 800MG/160MG), 1 TAB PO BID Scheduled PRN Clonazepam (Klonopin), 0.5 MG PO UD PRN for Anxiety/Agitation Diphenoxylate/Atropine (Lomotil), 1 TAB PO QID PRN for RN Furosemide (Lasix), 40 MG PO QAM PRN for EDEMA Methscopolamine [place] (Methscopolamine [place]), 2.5 MG PO TID PRN for Diarrhea Rifaximin (Xifaxan), 550 MG PO TID PRN for ABDOMINAL CRAMPING Allergies Coded Allergies: BEE STING (Verified Allergy, Severe, ANAPHYLAXIS, 01/29/17) Iodine (Verified Allergy, Severe, ANAPHYLAXIS, 01/29/17) Aspartame (Unverified Allergy, Unknown, RASH, 01/29/17) Clonazepam (Unverified Allergy, Unknown, ITCHING RASH, 01/29/17) Colestipol (Unverified Allergy, Unknown, RASH, 01/29/17) Diphenhydramine (Unverified Allergy, Unknown, UNKNOWN, 01/29/17) Doxycycline (Unverified Allergy, Unknown, HIVES, 01/29/17) Glimepiride (Unverified Allergy, Unknown, RASH, 01/29/17) Glyburide (Unverified Allergy, Unknown, RASH, 01/29/17) Hydroxyzine (Unverified Allergy, Unknown, MENTAL CONFUSION, 01/29/17) Metformin (Unverified Allergy, Unknown, RASH, 01/29/17) Pioglitazone (Verified Allergy, Unknown, RASH, 01/29/17) Pseudoephedrine (Unverified Allergy, Unknown, JITTERINESS, 01/29/17) Rosuvastatin (Unverified Allergy, Unknown, IRCHING RASH, 01/29/17) Shellfish (Unverified Allergy, Unknown, SWELLING OF FACE AND MOUTH , ) Tramadol (Unverified Allergy, Unknown, NAUSE A VOMITING, 01/29/17) Vital Signs Date Time Temp Pulse Resp B/P (MAP) Pulse Ox O2 Delivery O2 Flow Rate FiO2 08/05/17 14:33 36.7 94 18 124/76 92 08/05/17 14:31 36.7 94 18 124/76 92 Room Air 08/05/17 11:29 36.7 113 20 127/75 93 Room Air Laboratory Results Date/Time Source Procedure Growth Status 08/05/17 13:30 Abscess Face , Right Gram Stain - Final Complete 08/05/17 13:30 Wound Culture - Final Staph. Aureus Mrsa Coag Neg Staphylococcus Complete Medications Administered Medications (Trade) Dose Ordered Sig/Tiarra Route Start Time Stop Time Status Last Admin Dose Admin Oxycodone/ Acetaminophen (Percocet 5-325mg Tab) 1 tab NOW ONCE PO 08/05/17 12:30 08/05/17 12:31 DC 08/05/17 12:40 1 TAB Cephalexin Monohydrate (Keflex Cap) 500 mg NOW ONCE PO 08/05/17 13:45 08/05/17 13:46 DC 08/05/17 13:54 500 MG Trimethoprim/ Sulfamethoxazole (Septra Ds 800/ 160MG Tab) 1 tab NOW STAT PO 08/05/17 13:39 08/05/17 13:42 DC 08/05/17 13:54 1 TAB Departure Information Impression Primary Impression: Abscess of forehead Additional Impression: Cellulitis of forehead Dispostion Home / Self-Care Condition GOOD Prescriptions Cephalexin Monohydrate (Keflex) 500 Mg Cap 500 MG PO QID for 10 Days, #40 CAP Prov: Misti Temple CRNP 08/05/17 Sulfa/Trimethoprim (Bactrim Ds 800MG/160MG) Tab 1 TAB PO BID for 10 Days, #20 TAB Prov: Misti Temple CRNP 08/05/17 Referrals Pranav Sanchez M.D. (PCP) Patient Instructions ED Abscess AlexisndEmiliana, [facility] Additional Instructions You were seen in the Emergency Department for Incision and Drainage of abscess on your forehead. You were prescribed Keflex and Bactrim to be taken for 10 days. Both of these medications are antibiotics to treat your infection, please take as prescribed.. Stop these medications and contact a medical provider if you were to develop any significant adverse side effects including: wheezing, shortness of breath, passing out, vomiting, or a diffuse rash. Always take antibiotics as directed and COMPLETE the ENTIRE course regardless of the improvement of your symptoms. Proper wound care is essential for adequate wound healing and infection prevention. You can shower and clean the wound with soap and water. Do not scour over the wound. Pat dry with a towel. Do not submerse the wound (i.e. bathe or dish wash) until the skin over the wound has fully healed. You can use an antibiotic ointment with a dressing over the wound for the next 3-4 days. After this time you may leave the wound dry and open to the air. If crust develops over the wound you can use a Q-tip to apply a 1:1 peroxide:water solution to clean the wound. Look for signs of worsening infection of the wound including: increased pain, redness swelling, large amount of foul discharge, streaking, or fever/chills. If any of these are noticed you should return to the Emergency Department for further assessment and treatment. As with any laceration you may have received nerve damage to the surrounding tissues. This damage may or may not be permanent. For pain control, you can use the following [id number] medicines (if >12 yo): - Extra strength (500mg/tab) Tylenol (acetaminophen) 1-2 tabs every 6-8 hours as needed. Do not exceed 6 tablets in a 24 hour period. Avoid taking more than 3 grams (3000 mg) of Tylenol per day. This includes any other sources of acetaminophen you may take on a regular basis. - Regular strength (200 mg/tab) Advil (ibuprofen) 1-2 tabs every 4-6 hours as needed. Do not exceed a dose of 2400 mg per day. Please follow-up with your primary care provider in the next 1-2 days for recheck of your infection, or sooner for worsening symptoms. Problem Qualifiers
[2017-08-05 14:33] VITALS: BP 124/76; PULSE 94; TEMP 36.7; O2SAT 92
--- NOTE | 2017-08-09 11:47 | EDITING REQUIRED CODING QUERY ---
TREATMENT RENDERED WITHOUT A DIAGNOSIS To promote full compliance with coding requirements relating to patient care, physician participation is requested in all cases of senior data warehouse architect uncertainty. Please assist us with providing a diagnosis/symptom for the test(s) below: A diagnosis/symptom was not documented. A valid diagnosis/symptom is required to bill all insurances. Please remember that we are unable to code a diagnosis of rule out, probable, possible, questionable, or suspected. Visit that requires a diagnosis: ER Visit 08/05/17 * Please clarify is the Primary Impression is an abscess or cellulitis. Both abscess and cellulitis of the forehead. Diagnoses in the chart have been amended and signed. Provider Signature: Date: Thank you [facility] Information Management Once completed, please kindly fax back to [phone] For questions please call [phone]
== END 2017-08-05 14:34 | disposition home or self-care (01) ==
LOC: C.EDB 11:28 → C.EDD 14:34
DX: L02.01 Cutaneous abscess of face (principal); L03.211 Cellulitis of face; I10 Essential (primary) hypertension; E78.5 Hyperlipidemia, unspecified; E11.40 Type 2 diabetes mellitus with diabetic neuropathy, unspecified; Z79.4 Long term (current) use of insulin; K58.9 Irritable bowel syndrome, unspecified; K21.9 Gastro-esophageal reflux disease without esophagitis; I87.2 Venous insufficiency (chronic) (peripheral); M81.0 Age-related osteoporosis without current pathological fracture; J30.9 Allergic rhinitis, unspecified; F32.9 Major depressive disorder, single episode, unspecified; F41.0 Panic disorder [episodic paroxysmal anxiety]; M47.812 Spondylosis without myelopathy or radiculopathy, cervical region; F11.21 Opioid dependence, in remission; Z96.659 Presence of unspecified artificial knee joint; Z98.890 Other specified postprocedural states; Z90.710 Acquired absence of both cervix and uterus; Z90.49 Acquired absence of other specified parts of digestive tract; Z91.030 Bee allergy status; Z88.8 Allergy status to other drugs, medicaments and biological substances; Z88.1 Allergy status to other antibiotic agents; Z91.013 Allergy to seafood; Z88.5 Allergy status to narcotic agent

== ENCOUNTER → 2017-08-08 | Outpatient (CLI) | payer OTHER ==
[~2017-08-08] MED LIST changes: +ATOR-22 PO; +CEPH500C PO; -DICL1GEL12 TOP; -MELO7.5T5 PO; +SULF800T23 PO
[2017-08-08 12:24] LABS: HEMOGLOBIN A1C 11.8 % (4.5-5.6)
[2017-08-08 12:43] LABS: ALBUMIN 3.5 gm/dl (3.4-5.0); ALKALINE PHOSPHATASE 131 U/L (45-117); ALT/SGPT 56 U/L (12-78); AST/SGOT 36 U/L (15-37); BLOOD UREA NITROGEN 18 mg/dl (7-18); CALCIUM 9.9 mg/dl (8.5-10.1); CARBON DIOXIDE 23 mmol/L (21-32); CREATININE 1.45 mg/dl (0.60-1.20); GLUCOSE 469 mg/dl (70-99); POTASSIUM 4.8 mmol/L (3.5-5.1); SODIUM 128 mmol/L (136-145); TOTAL PROTEIN 7.5 gm/dl (6.4-8.2)
== END | disposition home or self-care (01) ==
LOC: C.LAB1850 11:12
PROVIDERS: ATTEND Internal Medicine Endocrinology, Diabetes & Metabolism
DX: E11.42 Type 2 diabetes mellitus with diabetic polyneuropathy (principal)

== ENCOUNTER → 2017-09-17 | Outpatient (CLI) | payer OTHER ==
[~2017-09-17] MED LIST changes: -CEPH500C PO; +NVLG SC; -NVLG SQ; -SULF800T23 PO
[2017-09-17 16:55] LABS: BLOOD UREA NITROGEN 20 mg/dl (7-18); CALCIUM 9.5 mg/dl (8.5-10.1); CARBON DIOXIDE 27 mmol/L (21-32); CREATININE 1.28 mg/dl (0.60-1.20); GLUCOSE 186 mg/dl (70-99); POTASSIUM 4.2 mmol/L (3.5-5.1); SODIUM 136 mmol/L (136-145)
== END | disposition home or self-care (01) ==
LOC: C.LAB1850 15:23
PROVIDERS: ATTEND Internal Medicine Endocrinology, Diabetes & Metabolism
DX: E11.65 Type 2 diabetes mellitus with hyperglycemia (principal)

== ENCOUNTER 2017-09-21 17:04 | Emergency (ER) | payer OTHER ==
[~2017-09-21] VITALS: Ht 172.7 cm; Wt 140.0 kg
[2017-09-21 17:13] VITALS: TEMP 36.7; Ht 172.7 cm; Wt 140.0 kg
[2017-09-21] MEDS ORDERED: HYDROCODONE/ACETAMIN 5/325MG TAB PO STA (17:30)
[2017-09-21] MEDS ORDERED: ERYTHROMYCIN OP OINT 1 GM PKT OPR STA (17:30)
--- NOTE | 2017-09-21 17:37 | EMERGENCY ROOM VISIT NOTE ---
ED Visit Note First contact with patient: 17:17 CHIEF COMPLAINT: Right eyelid pain and swelling HISTORY OF PRESENT ILLNESS: This 67-year-old female presents to ER with chief complaint that she has pain and swelling to her right eyelid. She states that she thinks it is a stye but she has been using warm compresses without any relief for the past 5 days. The patient denies any visual changes. REVIEW OF SYSTEMS: 6 system review was performed and was negative unless stated otherwise in history of present illness. PMH: The patient is healthy; EMR was reviewed and there are no changes. SOCIAL HISTORY: Patient lives at home. The patient denies tobacco use. PHYSICAL EXAM: Vital Signs: Were reviewed reviewed Nurse's notes. GENERAL: 67- year-old female appears in no acute distress. MENTAL STATUS: Alert and oriented 3. EYES: Pupils are round, equal, and react to light. EOMs are full. There is erythema and edema with a pustule noted on the lid margin of the upper eyelid. There is no drainage at this time. EMERGENCY DEPARTMENT COURSE: The patient was evaluated. The area was cleansed with alcohol since she is allergic to iodine. The stye was lanced with a 27- gauge needle. Purulent fluid was expressed. Erythromycin ointment was applied. Patient was also given Ethel 5/325 mg 1 tablet p.o. for pain. The patient was discharged home in stable condition. DIAGNOSIS: Stye right eye DISCHARGE INSTRUCTIONS AND TREATMENT: Apply erythromycin ointment 3 times a day to the affected area for the next 5 days. Warm compresses frequently to promote drainage. Tylenol as needed for pain. If symptoms persist or worsen, follow-up with your family doctor. Problem List Medical Problems: (1) Allergic rhinitis Status: Chronic (2) Anxiety Status: Chronic (3) Depression Status: Chronic (4) DJD (degenerative joint disease), cervical Status: Chronic (5) DM type 2 (diabetes mellitus, type 2) Status: Chronic (6) Dyslipidemia Status: Chronic (7) GERD (gastroesophageal reflux disease) Status: Chronic (8) Hypertension Status: Chronic (9) IBS (irritable bowel syndrome) Status: Chronic (10) Left Knee DJD Status: Resolved (11) Neuropathy in diabetes Status: Chronic (12) Opioid withdrawal delirium Status: Resolved (13) Osteoporosis Status: Chronic (14) Oxycodone use disorder, severe, dependence Status: Chronic (15) Panic disorder Status: Chronic (16) Venous insufficiency Status: Chronic Surgical Problems: (1) H/O arthroscopic knee surgery Status: Chronic (2) H/O colonoscopy Permanent Comment: 12/07/14- ischemic colitis, hyperplastic polyp Status: Chronic (3) S/P cholecystectomy Status: Chronic (4) S/P hysterectomy Status: Chronic (5) s/p left lung/lymph node biopsy Status: Chronic (6) Total knee replacement status Status: Resolved Current/Historical Medications Scheduled Albuterol Hfa (Ventolin Hfa), 2-4 PUFFS INH Q6H Atorvastatin (Lipitor), 20 MG PO DAILY Citalopram (Citalopram Hydrobromide), 40 MG PO DAILY Fluticasone Propionate (Flovent Hfa), 2 PUFFS INH BID Insulin Aspart (Novolog), 6 UNITS SQ TIDM Insulin Glargine (Lantus Solostar), 52 UNITS SQ BID Lisinopril (Zestril), 10 MG PO HS Lisinopril (Zestril), 5 MG PO QAM Multivitamin (Multivitamin), 1 TAB PO QAM Omeprazole (Prilosec), 20 MG PO QAM Pramipexole (Mirapex), 0.25 MG PO HS Pregabalin (Lyrica), 150 MG PO BID Quetiapine Fumarate (Seroquel), 400 MG PO HS Scheduled PRN Clonazepam (Klonopin), 0.5 MG PO UD PRN for Anxiety/Agitation Diphenoxylate/Atropine (Lomotil), 1 TAB PO QID PRN for RN Furosemide (Lasix), 40 MG PO QAM PRN for EDEMA Methscopolamine [place] (Methscopolamine [place]), 2.5 MG PO TID PRN for Diarrhea Rifaximin (Xifaxan), 550 MG PO TID PRN for ABDOMINAL CRAMPING Allergies Coded Allergies: BEE STING (Verified Allergy, Severe, ANAPHYLAXIS, 01/29/17) Iodine (Verified Allergy, Severe, ANAPHYLAXIS, 01/29/17) Aspartame (Unverified Allergy, Unknown, RASH, 01/29/17) Clonazepam (Unverified Allergy, Unknown, ITCHING RASH, 01/29/17) Colestipol (Unverified Allergy, Unknown, RASH, 01/29/17) Diphenhydramine (Unverified Allergy, Unknown, UNKNOWN, 01/29/17) Doxycycline (Unverified Allergy, Unknown, HIVES, 01/29/17) Glimepiride (Unverified Allergy, Unknown, RASH, 01/29/17) Glyburide (Unverified Allergy, Unknown, RASH, 01/29/17) Hydroxyzine (Unverified Allergy, Unknown, MENTAL CONFUSION, 01/29/17) Metformin (Unverified Allergy, Unknown, RASH, 01/29/17) Pioglitazone (Verified Allergy, Unknown, RASH, 01/29/17) Pseudoephedrine (Unverified Allergy, Unknown, JITTERINESS, 01/29/17) Rosuvastatin (Unverified Allergy, Unknown, IRCHING RASH, 01/29/17) Shellfish (Unverified Allergy, Unknown, SWELLING OF FACE AND MOUTH , ) Tramadol (Unverified Allergy, Unknown, NAUSE A VOMITING, 01/29/17) Vital Signs Date Time Temp Pulse Resp B/P (MAP) Pulse Ox O2 Delivery O2 Flow Rate FiO2 09/21/17 17:13 36.7 115 20 181/82 96 Room Air Departure Information Referrals Pranav Sanchez M.D. (PCP) Patient Instructions My [facility]
[2017-09-21] MEDS ORDERED: ERYTHROMYCIN OP OINT 5 MG/GM 3.5 GM TUBE ONE (17:41)
--- NOTE | 2017-09-21 17:44 | EMERGENCY ROOM VISIT NOTE ---
ED Visit Note First contact with patient: 17:39 I have personally evaluated and examined this patient. I agree with assessment and plan of Rhona Aparicio PA-C. Right upper eyelid sty drained with improvement. Discussed follow up with Ophtho.
[2017-09-21 18:20] VITALS: BP 119/90; PULSE 108; O2SAT 93
== END 2017-09-21 18:20 | disposition home or self-care (01) ==
LOC: C.EDB 17:05 → C.EDD 18:20
DX: H00.011 Hordeolum externum right upper eyelid (principal); E11.9 Type 2 diabetes mellitus without complications; I10 Essential (primary) hypertension; F41.8 Other specified anxiety disorders; E78.5 Hyperlipidemia, unspecified; Z79.4 Long term (current) use of insulin; Z79.899 Other long term (current) drug therapy; Z91.030 Bee allergy status; Z91.041 Radiographic dye allergy status; Z91.018 Allergy to other foods; Z88.8 Allergy status to other drugs, medicaments and biological substances; Z88.1 Allergy status to other antibiotic agents; Z88.6 Allergy status to analgesic agent; Z91.013 Allergy to seafood

== ENCOUNTER 2017-09-24 16:50 | Emergency (ER) | payer OTHER ==
[~2017-09-24] VITALS: Ht 172.7 cm; Wt 137.5 kg
[2017-09-24 17:00] VITALS: Ht 172.7 cm; Wt 137.5 kg
[2017-09-24] MEDS ORDERED: ACET-749 PO (17:46)
--- NOTE | 2017-09-24 17:50 | EMERGENCY ROOM VISIT NOTE ---
ED Visit Note First contact with patient: 17:05 CHIEF COMPLAINT: Stye in the right eyelid HISTORY OF PRESENT ILLNESS: This 67-year-old female patient presents to the emergency department, ambulatory, for the second time complaining of a stye in the right upper eyelid. The patient was here recently and diagnosed with the stye. She states the stye was drained with a needle at that time. She was told to follow-up with ophthalmology, but has not done this. She has been using erythromycin ointment, and warm compresses. She has been attempting to drain the stye with direct compression and squeezing. She has not noticed any improvement, and states she feels that the stye is rubbing against the surface of her cornea. She is uncertain how often she is using the antibiotic ointment. She states she returned to the emergency department because she was told to come back if her symptoms did not improve. She states she was told by the doctor that the stye would be removed here in the emergency department with a needle on the inside of the eyelid. The patient denies any fever, chills, nausea, vomiting, recent illness, purulent drainage from the eye or eyelid, redness of the eye, or other concerning symptoms. REVIEW OF SYSTEMS: A 6 system review of systems was performed with positives and pertinent negatives listed in the history of present illness. All other systems were reviewed and are negative. ALLERGIES: Bee stings, iodine, aspartame, clonazepam, colestipol, Benadryl, doxycycline, glimepiride, glyburide, hydroxyzine, metformin, Pioglitazone, pseudo-ephedrine, rosuvastatin, shellfish, tramadol MEDICATIONS: Albuterol, atorvastatin, citalopram, Klonopin, Lomotil, Flovent, Lasix, NovoLog, Lantus, Zestril, multivitamin, Prilosec, Mirapex, Lyrica, Seroquel, Xifaxan, methscopolamine bromide PMH: Asthma, hyperlipidemia, anxiety, diabetes SOCIAL HISTORY: The patient lives locally with family. She denies drug, alcohol , tobacco use. PHYSICAL EXAM: VITALS: Vitals are noted on the nurse's note and reviewed by myself. Vital signs stable. GENERAL: This is a 67-year-old white female, in no acute distress, nondiaphoretic, well-developed well-nourished. SKIN: The skin was without rashes, erythema, edema, or bruising. There is no tenting of the skin. Capillary reflex less than 2 seconds. HEAD: Normocephalic atraumatic. EYES: Pupils equal round and reactive to light and accommodation. Conjunctivae without injection, sclerae without icterus. Extraocular movements intact. There is an external hordeolum noted in the right upper eyelid. This is erythematous, but there is no head or active drainage at this time. NECK: Supple without nuchal rigidity. No lymphadenopathy. No thyromegaly. Cervical spine is nontender. No JVD. MUSCULOSKELETAL: No muscle atrophy, erythema, or edema noted. Full range of motion without joint tenderness in all extremities. No tenderness to palpation. Normal gait. Strength 5/5 throughout. NEURO: Patient was alert and oriented to person place and time. Normal sensation to light and sharp touch. Deep tendon reflexes 2+ throughout. No focal neurological deficits. EMERGENCY DEPARTMENT COURSE: The patient was seen and evaluated as above. She was educated on the proper use of antibiotic ointment and management of styes. I advised the patient that it will likely take up to 7-10 days for the symptoms to fully improve. I advised her that we would not be draining the stye again were able to remove it here in the emergency department. She would have to see a an pierce and shave press operator for this. She was given the contact information for a local pierce and shave press operator. The patient was given instructions on stye management at home. She was encouraged not to attempt to squeeze the stye for drainage. She did request pain medication and was given Tylenol with codeine. PDMP consulted and no suspicious findings noted. Discharge instructions were reviewed, and the patient was discharged home in good condition. I attest that I have personally reviewed the patient's current medication list. Patient was found to have normal blood pressure on screening and does not require follow-up. Etiologies such as hordeolum, chalazion, conjunctivitis, corneal abrasion, uveitis, glaucoma, periorbital cellulitis, orbital cellulitis, abscess, trauma, as well as others were entertained. DIAGNOSIS: External stye of right upper eye lid The chart was completed utilizing [employer] voice recognition software. Grammatical errors, random word insertions, pronoun errors, and incomplete sentences are an occasional consequence of this system due to software limitations, ambient noise, and hardware issues. Any formal questions or concerns about the content, text, or information contained within the body of this dictation should be directly addressed to the provider for clarification. Problem List Medical Problems: (1) Allergic rhinitis Status: Chronic (2) Anxiety Status: Chronic (3) Depression Status: Chronic (4) DJD (degenerative joint disease), cervical Status: Chronic (5) DM type 2 (diabetes mellitus, type 2) Status: Chronic (6) Dyslipidemia Status: Chronic (7) GERD (gastroesophageal reflux disease) Status: Chronic (8) Hypertension Status: Chronic (9) IBS (irritable bowel syndrome) Status: Chronic (10) Left Knee DJD Status: Resolved (11) Neuropathy in diabetes Status: Chronic (12) Opioid withdrawal delirium Status: Resolved (13) Osteoporosis Status: Chronic (14) Oxycodone use disorder, severe, dependence Status: Chronic (15) Panic disorder Status: Chronic (16) Venous insufficiency Status: Chronic Surgical Problems: (1) H/O arthroscopic knee surgery Status: Chronic (2) H/O colonoscopy Permanent Comment: 12/07/14- ischemic colitis, hyperplastic polyp Status: Chronic (3) S/P cholecystectomy Status: Chronic (4) S/P hysterectomy Status: Chronic (5) s/p left lung/lymph node biopsy Status: Chronic (6) Total knee replacement status Status: Resolved Current/Historical Medications Scheduled Albuterol Hfa (Ventolin Hfa), 2-4 PUFFS INH Q6H Atorvastatin (Lipitor), 20 MG PO DAILY Citalopram (Citalopram Hydrobromide), 40 MG PO DAILY Fluticasone Propionate (Flovent Hfa), 2 PUFFS INH BID Insulin Aspart (Novolog), 1 DOSE SC AC Insulin Glargine (Lantus Solostar), 75 UNITS SQ AMPM Lisinopril (Zestril), 10 MG PO HS Lisinopril (Zestril), 5 MG PO QAM Multivitamin (Multivitamin), 1 TAB PO QAM Omeprazole (Prilosec), 20 MG PO QAM Pramipexole (Mirapex), 0.25 MG PO HS Pregabalin (Lyrica), 150 MG PO BID Quetiapine Fumarate (Seroquel), 400 MG PO HS Scheduled PRN Acetaminophen/Codeine (Tylenol W/Codeine #3), 1 TAB PO Q4-6H PRN for Pain Clonazepam (Klonopin), 0.5 MG PO UD PRN for Anxiety/Agitation Diphenoxylate/Atropine (Lomotil), 1 TAB PO QID PRN for RN Furosemide (Lasix), 40 MG PO QAM PRN for EDEMA Methscopolamine [place] (Methscopolamine [place]), 2.5 MG PO TID PRN for Diarrhea Rifaximin (Xifaxan), 550 MG PO TID PRN for ABDOMINAL CRAMPING Allergies Coded Allergies: BEE STING (Verified Allergy, Severe, ANAPHYLAXIS, 09/21/17) Iodine (Verified Allergy, Severe, ANAPHYLAXIS, 09/21/17) Aspartame (Unverified Allergy, Unknown, RASH, 09/21/17) Clonazepam (Unverified Allergy, Unknown, ITCHING RASH, 09/21/17) Colestipol (Unverified Allergy, Unknown, RASH, 09/21/17) Diphenhydramine (Unverified Allergy, Unknown, UNKNOWN, 09/21/17) Doxycycline (Unverified Allergy, Unknown, HIVES, 09/21/17) Glimepiride (Unverified Allergy, Unknown, RASH, 09/21/17) Glyburide (Unverified Allergy, Unknown, RASH, 09/21/17) Hydroxyzine (Unverified Allergy, Unknown, MENTAL CONFUSION, 09/21/17) Metformin (Unverified Allergy, Unknown, RASH, 09/21/17) Pioglitazone (Verified Allergy, Unknown, RASH, 09/21/17) Pseudoephedrine (Unverified Allergy, Unknown, JITTERINESS, 09/21/17) Rosuvastatin (Unverified Allergy, Unknown, IRCHING RASH, 09/21/17) Shellfish (Unverified Allergy, Unknown, SWELLING OF FACE AND MOUTH , ) Tramadol (Unverified Allergy, Unknown, NAUSE A VOMITING, 09/21/17) Vital Signs Date Time Temp Pulse Resp B/P (MAP) Pulse Ox O2 Delivery O2 Flow Rate FiO2 09/24/17 17:59 37.2 101 20 128/77 95 09/24/17 17:58 101 20 128/77 95 Room Air 09/24/17 17:00 37.2 107 20 132/75 95 Room Air Departure Information Impression Primary Impression: External hordeolum Dispostion Home / Self-Care Condition GOOD Prescriptions Acetaminophen/Codeine (Tylenol W/Codeine #3) 300 Mg/30 Mg Tab 1 TAB PO Q4-6H Y for Pain, #12 TAB For Initial Treatment Prov: Mary Jo Cordoba PA-C 09/24/17 Referrals Pranav Sanchez M.D. (PCP) Lasha Mims D.O. Patient Instructions ED [facility], My [facility] Additional Instructions You have been seen in the Emergency Department for the Hordeolum (Stye) in your right eye. Continue erythromycin ointment as previously prescribed. You have been prescribed Tylenol #3 to be used for pain control. Take 1 tablets every 4-6 hours as needed for pain. This is a narcotic medication. You cannot drive or consume alcohol while on this medicine. This medicine should only be used for pain that cannot be controlled with [id number] pain medicines. Warm, moist compresses to the affected eye is the best treatment. You should follow-up with your Physics Department Chair or Primary Care Provider from today's Emergency Department visit. Problem Qualifiers Primary Impression: External hordeolum Laterality: right Eyelid: upper Qualified Codes: H00.011 - Hordeolum externum right upper eyelid
[2017-09-24 17:59] VITALS: BP 128/77; PULSE 101; TEMP 37.2; O2SAT 95
== END 2017-09-24 18:00 | disposition home or self-care (01) ==
LOC: C.EDB 16:51 → C.EDD 18:00
DX: H00.011 Hordeolum externum right upper eyelid (principal); Z91.030 Bee allergy status; Z88.8 Allergy status to other drugs, medicaments and biological substances; Z91.013 Allergy to seafood; Z79.899 Other long term (current) drug therapy; Z79.4 Long term (current) use of insulin; J45.909 Unspecified asthma, uncomplicated; E78.5 Hyperlipidemia, unspecified; M47.892 Other spondylosis, cervical region; K21.9 Gastro-esophageal reflux disease without esophagitis; I10 Essential (primary) hypertension; K58.9 Irritable bowel syndrome, unspecified; E11.40 Type 2 diabetes mellitus with diabetic neuropathy, unspecified; M81.0 Age-related osteoporosis without current pathological fracture; F41.0 Panic disorder [episodic paroxysmal anxiety]; Z90.49 Acquired absence of other specified parts of digestive tract; Z90.710 Acquired absence of both cervix and uterus; Z96.659 Presence of unspecified artificial knee joint

== ENCOUNTER 2018-01-03 19:48 | Emergency (ER) | payer OTHER ==
[~2018-01-03] VITALS: Ht 172.7 cm; Wt 138.0 kg
[~2018-01-03 19:48] MED LIST changes: -CLON0.5T3 PO; +HYDR-5688 PO; +KLN/5 PO
[2018-01-03 19:52] VITALS: TEMP 36.8; Ht 172.7 cm; Wt 138.0 kg
[2018-01-03] MEDS ORDERED: HYDROCODONE/ACETAMIN 5/325MG TAB PO STA (20:29)
--- NOTE | 2018-01-03 20:58 | DIAGNOSTIC IMAGING REPORT ---
L HUMERUS MIN 2 VIEWS ROUTINE CLINICAL HISTORY: Left upper arm pain following fall to COMPARISON: Left humerus radiographs October 22, 2017. FINDINGS: No acute fracture of the left humerus is identified. Several well-corticated ossific densities along the left humeral head are chronic. Alignment of the left elbow appears anatomic. IMPRESSION: No acute fracture of the left humerus. Electronically signed by: Nolan Gastelum M.D. 01/03/2018 8:56 PM Dictated Date/Time: 01/03/2018 8:55 PM
[2018-01-03] MEDS ORDERED: SRQ/100 PO (21:31)
--- NOTE | 2018-01-03 21:40 | DIAGNOSTIC IMAGING REPORT ---
CT OF THE HEAD WITHOUT CONTRAST CLINICAL HISTORY: CHI/neck pain s/p fall. COMPARISON STUDY: Head CT September 19, 2014. CT DOSE: 1107.12 mGy.cm TECHNIQUE: Helical axial images of the head were obtained without IV contrast. Automated exposure control was utilized for the study. A dose lowering technique was utilized adhering to the principles of ALARA. FINDINGS: No acute intracranial hemorrhage, midline shift or mass effect is present. Brain volume is normal for age. Basilar cisterns are patent. Ventricular system is unremarkable. Aly-white differentiation is maintained. There is no calvarial fracture. IMPRESSION: 1. No acute intracranial findings. 2. No calvarial fracture. Electronically signed by: Nolan Gastelum M.D. 01/03/2018 9:39 PM Dictated Date/Time: 01/03/2018 9:37 PM
--- NOTE | 2018-01-03 21:43 | DIAGNOSTIC IMAGING REPORT ---
CT OF THE CERVICAL SPINE WITHOUT CONTRAST CLINICAL HISTORY: CHI/neck pain s/p fall. COMPARISON STUDY: Cervical spine MRI August 29, 2007 and cervical spine radiographs October 31, 2016. TECHNIQUE: Helical axial images of the cervical spine were obtained without IV contrast. Sagittal and coronal reconstructions were viewed. A dose lowering technique was utilized adhering to the principles of ALARA. FINDINGS: Exam is mildly compromised by artifact. No acute fractures identified. Craniocervical junction is intact. Facet joints are intact. There is no prevertebral edema. Moderate multilevel facet arthrosis is noted as well as mild to moderate multilevel degenerative disc disease. IMPRESSION: No acute cervical spine fracture or subluxation. Electronically signed by: Nolan Gastelum M.D. 01/03/2018 9:42 PM Dictated Date/Time: 01/03/2018 9:39 PM
--- NOTE | 2018-01-03 22:45 | EMERGENCY ROOM VISIT NOTE ---
ED Visit Note First contact with patient: 19:56 I did evaluate and examine this patient myself. I did guide management for the patient. I agree with the PA's assessment as discussed. Please see the PAs dictation for further details. I did independently review the CT scan. She does have degenerative disc disease. Her symptoms are consistent with radiculopathy. She will follow-up with orthopedics. She has no neurologic deficits to warrant emergent MRI at this time.
[2018-01-03 23:01] VITALS: BP 160/94; PULSE 75; O2SAT 94
--- NOTE | 2018-01-04 00:46 | EMERGENCY ROOM VISIT NOTE ---
History First contact with patient: 19:56 Chief Complaint: ARM PAIN Stated Complaint: PAIN IN L ARM History of Present Illness The patient is a 67 year old female who presents to the Emergency Room with complaints of left upper arm pain, as well as neck discomfort radiating across the top of both shoulders, left worse than right. The patient reports that she fell in her home approximately 3 weeks ago when her cat slid across the floor on a rug, landed between her feet, causing her to trip and fall onto her left side. The patient reports that she did hit her head when she fell, and still has persistent headaches. She also reports a history of an arthritic neck. She denies any weakness in wall steamer. Movement of the left shoulder worsens her discomfort. She reports feeling a clicking sensation in the left upper arm region as well. She denies any back pain, chest pain, shortness of breath or abdominal pain. She rates her overall discomfort a 6 out of 10. She has not follow-up with her PCP regarding her symptoms since her fall. Review of Systems HEENT: Denies dizziness, visual problems, hearing loss, tinnitus. Denies difficulty swallowing or oral lesions. PULMONARY: Denies cough, shortness of breath, sputum production or hemoptysis. CARDIOVASCULAR: Denies chest pain, palpitations, dyspnea on exertion, orthopnea or peripheral edema. GASTROINTESTINAL: Denies diarrhea, constipation, nausea, vomiting, or abdominal pain. GENITOURINARY: Denies dysuria, frequency, urgency or nocturia. NEUROLOGIC: Denies history of epilepsy, CVA, TIA or chronic headaches. MUSCULOSKELETAL: History of chronic neck and back pain. SKIN: Denies rashes or lesions. PSYCHIATRIC: History of anxiety and depression. ENDOCRINE: History of diabetes. Denies thyroid disorders. Past Medical/Surgical History Medical Problems: (1) Allergic rhinitis (2) Anxiety (3) Depression (4) DJD (degenerative joint disease), cervical (5) DM type 2 (diabetes mellitus, type 2) (6) Dyslipidemia (7) GERD (gastroesophageal reflux disease) (8) Hypertension (9) IBS (irritable bowel syndrome) (10) Left Knee DJD (11) Neuropathy in diabetes (12) Opioid withdrawal delirium (13) Osteoporosis (14) Oxycodone use disorder, severe, dependence (15) Panic disorder (16) Venous insufficiency Surgical Problems: (1) H/O arthroscopic knee surgery (2) H/O colonoscopy (3) S/P cholecystectomy (4) S/P hysterectomy (5) s/p left lung/lymph node biopsy (6) Total knee replacement status Family History Diabetes mellitus MOTHER SISTER BROTHER FH: cancer FATHER (lung CA) SISTER (colon CA) SISTER (uterine CA) Social History Smoking Status: Never Smoker Alcohol Use: none Drug Use: none Marital Status: Housing Status: lives with family Current/Historical Medications Scheduled Albuterol Hfa (Ventolin Hfa), 2-4 PUFFS INH Q6H Atorvastatin (Lipitor), 20 MG PO DAILY Citalopram (Citalopram Hydrobromide), 40 MG PO DAILY Fluticasone Propionate (Flovent Hfa), 2 PUFFS INH BID Insulin Aspart (Novolog), 1 DOSE SC AC Insulin Glargine (Lantus Solostar), 75 UNITS SQ AMPM Lisinopril (Zestril), 10 MG PO HS Lisinopril (Zestril), 5 MG PO QAM Multivitamin (Multivitamin), 1 TAB PO QAM Omeprazole (Prilosec), 20 MG PO QAM Pramipexole (Mirapex), 0.25 MG PO HS Pregabalin (Lyrica), 150 MG PO BID Quetiapine Fumarate (Seroquel), 100 MG PO HS Scheduled PRN Clonazepam (Klonopin), 0.5 MG PO UD PRN for Anxiety/Agitation Diphenoxylate/Atropine (Lomotil), 1 TAB PO QID PRN for RN Furosemide (Lasix), 40 MG PO QAM PRN for EDEMA Methscopolamine [place] (Methscopolamine [place]), 2.5 MG PO TID PRN for Diarrhea Rifaximin (Xifaxan), 550 MG PO TID PRN for ABDOMINAL CRAMPING Physical Exam Vital Signs Date Time Temp Pulse Resp B/P (MAP) Pulse Ox O2 Delivery O2 Flow Rate FiO2 01/03/18 23:01 75 18 160/94 94 01/03/18 19:52 36.8 98 16 156/92 96 Room Air Physical Exam CONSTITUTIONAL: Morbidly obese female, alert and oriented X 3 with positive affect. She does not appear in any acute distress. HEENT: Normocephalic, atraumatic. Pupils equal, round and reactive. No hemotympanum, epistaxis, subconjunctival hemorrhage, raccoon's eyes or maldonado sign. NECK: The patient is exhibiting practically full active range of motion without obvious discomfort. RESPIRATORY: Clear to auscultation bilaterally with no wheezing, crackles, rhonchi or stridor. CARDIOVASCULAR: Regular rate and rhythm with no murmurs, rubs or gallops. GASTROINTESTINAL: Bowel sounds present in all quadrants. Soft and nontender to palpation. MUSCULOSKELETAL: Examination shows generalized tenderness to palpation of the left upper extremity and left shoulder region. Equal handgrip bilaterally. Distal pulses are intact. INTEGUMENTARY: No rash or other significant dermatologic conditions noted. NEUROLOGIC: Cranial nerves II-XII grossly intact. No focal neurologic deficits noted. Left upper extremity and deltoid sensation are intact. Median , radial and ulnar motor and sensory are intact to the left upper extremity. Medical Decision & Procedures ER Provider Diagnostic Interpretation: My interpretation of left humerus x-rays does not show any obvious fractures, dislocations or separation of the left shoulder, humerus or elbow. Radiologist report is as follows: L HUMERUS MIN 2 VIEWS ROUTINE CLINICAL HISTORY: Left upper arm pain following fall to COMPARISON: Left humerus radiographs October 22, 2017. FINDINGS: No acute fracture of the left humerus is identified. Several well-corticated ossific densities along the left humeral head are chronic. Alignment of the left elbow appears anatomic. IMPRESSION: No acute fracture of the left humerus. Noncontrast CT of the head and cervical spine shows moderate cervical degenerative disc disease. No intracranial bleed, mass-effect or midline shift is noted. Radiologist reports are as follows: CT OF THE CERVICAL SPINE WITHOUT CONTRAST CLINICAL HISTORY: CHI/neck pain s/p fall. COMPARISON STUDY: Cervical spine MRI August 29, 2007 and cervical spine radiographs October 31, 2016. TECHNIQUE: Helical axial images of the cervical spine were obtained without IV contrast. Sagittal and coronal reconstructions were viewed. A dose lowering technique was utilized adhering to the principles of ALARA. FINDINGS: Exam is mildly compromised by artifact. No acute fractures identified. Craniocervical junction is intact. Facet joints are intact. There is no prevertebral edema. Moderate multilevel facet arthrosis is noted as well as mild to moderate multilevel degenerative disc disease. IMPRESSION: No acute cervical spine fracture or subluxation. CT OF THE HEAD WITHOUT CONTRAST CLINICAL HISTORY: CHI/neck pain s/p fall. COMPARISON STUDY: Head CT September 19, 2014. CT DOSE: 1107.12 mGy.cm TECHNIQUE: Helical axial images of the head were obtained without IV contrast. Automated exposure control was utilized for the study. A dose lowering technique was utilized adhering to the principles of ALARA. FINDINGS: No acute intracranial hemorrhage, midline shift or mass effect is present. Brain volume is normal for age. Basilar cisterns are patent. Ventricular system is unremarkable. Aly-white differentiation is maintained. There is no calvarial fracture. IMPRESSION: 1. No acute intracranial findings. 2. No calvarial fracture. Medications Administered Medications (Trade) Dose Ordered Sig/Tiarra Route Start Time Stop Time Status Last Admin Dose Admin Acetaminophen/ Hydrocodone Bitart (Drayden 5/325 Tab) 1 tab ONE STAT PO 01/03/18 20:29 01/03/18 20:30 DC 01/03/18 20:39 1 TAB ED Course Patient history and physical exam were performed. Nurse's notes were reviewed. Vital signs were reviewed, showing an elevated blood pressure 156/92. Patient appears in mild discomfort. She was administered Drayden 5/325 for pain. The patient reports multiple medication allergies. Noncontrast CT of the head and cervical spine were normal, showing moderate degenerative disc disease. Left upper extremity x-rays were normal. The patient was advised that her history is consistent with a cervical radiculitis. She was encouraged to intermittently apply ice to the neck. An arm sling was applied to the left arm. She was encouraged to follow-up with [facility] for further reevaluation as she has had a joint replacement performed by Dr. Titus. She was encouraged alternate ibuprofen and Tylenol as needed for pain. Return to the emergency department for any developing weakness of the left upper extremity or other concerning symptoms. The patient was happy with plan of care, voiced understanding of all discharge instructions, and rated her discomfort a 3 out of 10 at the conclusion of my exam. The case was also discussed with Dr. Kaufman, ED attending physician, who also evaluated the patient and agrees with workup and plan of care. The patient was also instructed to follow-up with her PCP for blood pressure recheck. Medical Decision The patient's injury happened several weeks ago. Her CT imaging of the neck does not show any evidence for fracture. I do believe that the patient is at low risk for cervical cord syndrome. I do not feel that an MRI is warranted at this time, and this was also discussed with Dr. Kaufman who agrees that an MRI is not indicated at this time. [place] Drug Monitoring Program Search Results: patient reviewed within database, no issues identified Medication Reconcilliation Current Medication List: was personally reviewed by me Blood Pressure Screening Patient's blood pressure: Elevated blood pressure Impression Primary Impression: Cervical radiculitis Additional Impression: Elevated blood pressure reading Departure Information Referrals Pranav Sanchez M.D. (PCP) Patient Instructions [facility] Problem Qualifiers
== END 2018-01-03 23:02 | disposition home or self-care (01) ==
LOC: C.EDB 19:50 → C.EDD 23:02
DX: M50.10 Cervical disc disorder with radiculopathy, unspecified cervical region (principal); W01.0XXA Fall on same level from slipping, tripping and stumbling without subsequent striking against object, initial encounter; Y92.009 Unspecified place in unspecified non-institutional (private) residence as the place of occurrence of the external cause; I10 Essential (primary) hypertension; E66.01 Morbid (severe) obesity due to excess calories; E78.5 Hyperlipidemia, unspecified; F32.9 Major depressive disorder, single episode, unspecified; E11.40 Type 2 diabetes mellitus with diabetic neuropathy, unspecified; Z79.4 Long term (current) use of insulin; K21.9 Gastro-esophageal reflux disease without esophagitis; F41.9 Anxiety disorder, unspecified

== ENCOUNTER 2018-05-03 11:07 | Inpatient (IN) ==
[2018-05-03] MEDS ORDERED: SODIUM CHLORIDE 0.9% 1000ML 500 ML IV ONE (11:28)
[2018-05-03 11:53] LABS: Basophils # (auto) 0.01 K/uL (0-0.2); Basophils % (auto) 0.1 %; Eosinophils # (auto) 0.01 K/uL (0-0.5); Eosinophils % (auto) 0.1 %; Hematocrit (blood only) 33.5 % (37-47); Hemoglobin 10.9 g/dL (12.0-16.0); Immature Granulocytes # (auto) 0.01 K/uL (0.00-0.02); Immature Granulocytes % (auto) 0.1 %; Lymphocytes # (auto) 0.57 K/uL (1.2-3.4); Lymphocytes % (auto) 6.4 %; Mean Corpuscular Hgb Conc 32.5 g/dL (32-36); Mean Corpuscular Volume 86.3 fL (80-100); Mean Platelet Volume 11.7 fL (7.4-10.4); Monocytes # (auto) 0.48 K/uL (0.11-0.59); Monocytes % (auto) 5.4 %; Neutrophils # (auto) 7.85 K/uL (1.4-6.5); Neutrophils % (auto) 87.9 %; Platelet Count 178 K/uL (130-400); RDW Standard Deviation 56.1 fL (36.4-46.3); Red Blood Count 3.88 M/uL (4.2-5.4); White Blood Count 8.93 K/uL (4.8-10.8)
--- NOTE | 2018-05-03 11:58 | XRay Report ---
XR chest 1V portable CLINICAL HISTORY: Chest Pain dyspnea COMPARISON STUDY: 06/11/2016 FINDINGS: The bones soft tissues and hemidiaphragms are normal. The cardiomediastinal silhouette is n ormal. The lungs are clear. The pulmonary vasculature is normal. IMPRESSION: Negative chest. The above report was generated using voice recognition software. It may contain grammatical, syntax or spelling errors. Electronically signed by: Parmjit Aparicio M.D. 05/03/2018 11:56 AM
[2018-05-03 12:19] LABS: Alanine Aminotransferase 53 U/L (12-78); Albumin Globulin Ratio 0.7 (0.9-2); Albumin Level 3.4 gm/dl (3.4-5.0); Alkaline Phosphatase 133 U/L (45-117); Aspartate Aminotransferase 81 U/L (15-37); BUN Creatinine Ratio 15.4 (10-20); Bilirubin,Total 0.9 mg/dl (0.1-1); Blood Urea Nitrogen 134 mg/dl (7-18); Calcium 9.4 mg/dl (8.5-10.1); Carbon Dioxide 19 mmol/L (21-32); Chloride 92 mmol/L (98-107); Est GFR (Non-African American) 4.3; Glucose 170 mg/dl (70-99); Magnesium 2.3 mg/dl (1.8-2.4); NT Pro B Type Natriuretic Pept 1439 pg/ml (0-900); Potassium 6.3 mmol/L (3.5-5.1); Sodium 127 mmol/L (136-145); Total Protein 8.4 gm/dl (6.4-8.2); Troponin I < 0.015 ng/ml (0-0.045)
[2018-05-03] MEDS ORDERED: DEXTROSE 50% 50 ML SYRINGE IV STA (12:32)
[2018-05-03] MEDS ORDERED: SODIUM POLYSTYRENE SULFONATE 15G/60ML SUSP PO STA (12:32)
[2018-05-03] MEDS ORDERED: INSULIN HUMAN REGULAR PER UNIT 10 UNITS in SYRINGE 9.9 ML IV STA (12:32)
[2018-05-03] MEDS ORDERED: CALCIUM GLUCONATE 10% 2,000 MG in SODIUM CHLORIDE 0.9% 50 ML IV STA (12:32)
[2018-05-03] MEDS ORDERED: SODIUM CHLORIDE 0.9% 1000ML 1,000 ML IV STA (12:36)
[2018-05-03 12:44] LABS: Phosphorus 8.9 mg/dl (2.5-4.9)
[2018-05-03] MEDS ORDERED: CALCIUM GLUCONATE 10% 10 ML VIAL IV ONE (12:57)
[2018-05-03] MEDS ORDERED: NovoLIN-R INSULIN PER UNIT CHARGE ONE (12:59)
[2018-05-03 13:18] LABS: Base Excess VBG -6.9 mEq/L; HCO3 VBG 19 mmol/L; Oxygen Saturation VBG < 60.0 %; PCO2 VBG 40 mmHg (38-50); PO2 VBG 26 mmHg
--- NOTE | 2018-05-03 14:40 | History & Physical Report ---
Date of Service May 03, 2018 Assessment & Plan (1) Acute renal failure: In the setting of polypharmacy -Initial Cr of 8.7 (baseline ~1 in May 12), K of 6.3, anion gap of 16 -Schaefer catheter in place, recorded urine output of 1.35 L -Repeat BMP with downtrending Cr and K -Nephrology consulted * D5 with 150 meq sodium bicarb @100 cc/hr * No need for HD today -Repeat BMP at 2100 (2) Hyperkalemia: Initial K of 6.3. Given Kayexelate, D50 and insulin in ED -Repeat K of 5.3 -EKG with sinus tachycardia, no T wave changes -Continue IV fluids per nephrology -Monitor on telemetry -Repeat EKG in AM (3) Chest pain: Atypical presentation of chest pain in setting of acute renal failure -States that she "hurts all over" -EKG without acute ST changes, initial troponin negative -Monitor on telemetry (4) Acute metabolic encephalopathy: (5) Polypharmacy: History of altered state due to overtaking prescribed medications -Alert on exam but tangential, has difficulty remembering questions & requires redirection -Sister recently , anxiety and depression are not controlled -Admits to taking more muscle relaxants (Flexeril, Skelatin) and seroquel than prescribed -Will order head CT to r/o bleed due to reported falls at home -Utox negative -Hold all medications for now -Psych consulted. Liaison seeing today. -May require a 1 to 1 (6) Hypertension: Normotensive currently -Holding lisinopril in setting of ARF (7) DM type 2 (diabetes mellitus, type 2): Most recent a1c of 11.8 in July 2017 -Repeat a1c pending -Given 10u IV insulin in ED for hyperkalemia -Hold home meds -SSI while in-patient -NPO for now (8) History of opioid abuse: Utox negative for opioids (9) Anxiety: (10) Depression: States that mood has been worse for past week -Unsure if taking correct dose of Cymbalta. Admits to taking more Seroquel than prescribed -Psych consulted DVT Ppx: SCDs for now Code status: FULL PCP: Luis M Dispo: Admitted to telemetry. Discharge planning ordered. Patient seen in collaboration with Dr. Alisson. Please see addendum. History of Present Illness Chief Complaint: chest pain, AMS Primary Care Provider: Chris Asencio DO This is a 68yo F with a PMH of anxiety, depression, h/o opioid dependence, DM II , HTN, asthma, chronic back pain and other medical problems listed below who presents with altered mental status and chest pain x 2 days. Patient is a poor historian due to altered state, so history was obtained from at bedside. Patient has a history of "over taking" prescribed medications and recently switched to a new PCP, per . He has noticed in the past few days that she has been "acting strangely", and complaining of dizziness and weakness. Slept on the ground in her bedroom last night because she was unable to get up. He states that she has acted this way in the past when she is taking more medication than prescribed. Patient admits to taking more muscle relaxers and seroquel than prescribed, but is unsure whether or not she is taking other prescribed medications appropriately. States that her sister last month and that she has been anxious and sad ever since. Tearful throughout exam. Denies an intentional overdose or suicide attempt, but states that she has been taking medication to "make herself feel better". Endorses auditory hallucinations. States that her daughter has been stealing her medication as well. states that she has been admitted for altered mental status in setting of polypharmacy/prescription medication abuse in the past. Currently, patient endorses dizziness and generalized weakness. Endorses chest pain that she believes is due to panic. Patient is unable to characterize pain. Denies fever chills. Endorses tremors, nausea, decreased urinary output and diarrhea since yesterday. Allergies Allergy/AdvReac Type Severity Reaction Status Date / Time bee venom protein (honey bee) Allergy Severe ANAPHYLAXIS Verified 05/03/18 13:39 iodine Allergy Severe ANAPHYLAXIS Verified 05/03/18 13:39 aspartame Allergy Unknown RASH Unverified 05/03/18 13:39 clonazepam Allergy Unknown ITCHING Unverified 05/03/18 13:39 RASH colestipol Allergy Unknown RASH Unverified 05/03/18 13:39 diphenhydramine Allergy Unknown UNKNOWN Unverified 05/03/18 13:39 doxycycline Allergy Unknown HIVES Unverified 05/03/18 13:39 glimepiride Allergy Unknown RASH Unverified 05/03/18 13:39 glyburide Allergy Unknown RASH Unverified 05/03/18 13:39 hydroxyzine Allergy Unknown MENTAL Unverified 05/03/18 13:39 CONFUSION metformin Allergy Unknown RASH Unverified 05/03/18 13:39 pioglitazone Allergy Unknown RASH Verified 05/03/18 13:39 pseudoephedrine Allergy Unknown JITTERINESS Unverified 05/03/18 13:39 rosuvastatin Allergy Unknown IRCHING Unverified 05/03/18 13:39 RASH shellfish derived Allergy Unknown SWELLING Unverified 05/03/18 13:39 OF FACE AND MOUTH tramadol Allergy Unknown NAUSE A Unverified 05/03/18 13:39 VOMITING Home Medications Home Medications Medication Instructions Recorded Confirmed Type atorvastatin 20 mg PO DAILY 05/03/18 05/03/18 History clonazepam 0.5 mg PO TID PRN 05/03/18 05/03/18 History cyclobenzaprine 10 mg PO BID PRN 05/03/18 05/03/18 History diphenoxylate-atropine 2 tab PO QID PRN 05/03/18 05/03/18 History duloxetine 120 mg PO DAILY 05/03/18 05/03/18 History fluticasone 2 spray INTRANASAL DAILY 05/03/18 05/03/18 History fluticasone [Flovent HFA] 2 puff INHALATION BID 05/03/18 05/03/18 History furosemide 40 mg PO DAILY PRN 05/03/18 05/03/18 History insulin aspart U-100 [Novolog 15 - 25 units SUBCUT QID MDD 100 05/03/18 History Flexpen U-100 Insulin] UNITS insulin glargine U-300 conc 75 units SUBCUT BID 05/03/18 05/03/18 History [Toujeo SoloStar U-300 Insulin] lisinopril 10 mg PO DAILY 05/03/18 05/03/18 History metaxalone 800 mg PO QID PRN 05/03/18 05/03/18 History methscopolamine 2.5 mg PO TID PRN 05/03/18 05/03/18 History omeprazole 20 mg PO DAILY 05/03/18 05/03/18 History pramipexole 1 mg PO TID 05/03/18 05/03/18 History pregabalin [Lyrica] 150 mg PO BID 05/03/18 05/03/18 History quetiapine 1 tab PO HS 05/03/18 05/03/18 History Past Med/Surg History Medical History History of opioid abuse (Chronic) Hypertension (Chronic) Anxiety (Chronic) Dyslipidemia (Chronic) Osteoporosis (Chronic) IBS (irritable bowel syndrome) (Chronic) DM type 2 (diabetes mellitus, type 2) (Chronic) Neuropathy in diabetes (Chronic) Venous insufficiency (Chronic) GERD (gastroesophageal reflux disease) (Chronic) DJD (degenerative joint disease), cervical (Chronic) Depression (Chronic) Panic disorder (Chronic) Allergic rhinitis (Chronic) Surgical History S/P hysterectomy (Chronic) H/O colonoscopy (Chronic) "12/07/14- ischemic colitis, hyperplastic polyp" S/P cholecystectomy (Chronic) H/O arthroscopic knee surgery (Chronic) Family History Other Diabetes Social History Current Living Situation: Spouse current occupational status: retired Other Information That Helps Us Care for You: No Feels Safe at Home: Yes Safety Concerns: Feels Safe At This Time Smoking Status: Never smoker Do You Dip or Chew Tobacco: No Second Hand Exposure: No Tobacco Cessation Education Requested by Patient: No Hx Alcohol Use: No Hx Substance Use: No Beliefs That Will Affect Care: None Preferred Language: Lithuanian Communication Ability: Effective Ship Scraper Required: No Review of Systems All systems reviewed & are unremarkable except as noted in HPI & below Physical Exam 2 Vital Signs (Past 24 Hours): Last Vital Signs Temp 37.1 C 05/03/18 11:26 Pulse 99 H 05/03/18 13:38 Resp 20 05/03/18 13:38 BP 111/66 05/03/18 13:38 Pulse Ox 100 05/03/18 13:38 Physical Exam: General Appearance: WD/WN, bilateral tremors of UE, tearful intermittently Head: normocephalic, atraumatic Eyes: normal inspection, PERRL, EOMI ENT: hearing grossly normal, pharynx normal (dry mucous membranes) Neck: supple, no JVD, no adenopathy Respiratory/Chest: lungs clear to auscultation. No wheezes, rales or rhonci. No respiratory distress or accessory muscle use Cardiovascular: regular rate, rhythm, no murmur, normal peripheral pulses Abdomen/GI: normal bowel sounds, soft, non-tender to palpation Extremities/Musculoskelatal: normal inspection, no calf tenderness, normal capillary refill, 1+ BLE edema Neurologic/Psych: alert and oriented to self, depressed mood, tangential speech requiring redirection Skin: normal color, warm/dry, diffuse small ecchymosis on BLE due to falls Results & Data Laboratory Results Laboratory Results - last 24 hr 05/03/18 05/03/18 05/03/18 11:34 11:34 11:34 WBC 8.93 RBC 3.88 L Hgb 10.9 L Hct 33.5 L MCV 86.3 MCH 28.1 MCHC 32.5 RDW Std Deviation 56.1 H RDW Coeff of Pérez 18.0 H Plt Count 178 MPV 11.7 H Immature Gran % (Auto) 0.1 Neut % (Auto) 87.9 Lymph % (Auto) 6.4 Child[place] % (Auto) 5.4 Eos % (Auto) 0.1 Baso % (Auto) 0.1 Immature Gran # (Auto) 0.01 Neut # (Auto) 7.85 H Lymph # (Auto) 0.57 L Childress # (Auto) 0.48 Eos # (Auto) 0.01 Baso # (Auto) 0.01 VBG pH VBG pCO2 VBG pO2 VBG HCO3 VBG O2 Saturation VBG Base Excess Barometric Pressure Sodium 127 L Potassium 6.3 H* Chloride 92 L Carbon Dioxide 19 L Anion Gap 16.0 H BUN 134 H Creatinine 8.71 H* Est Cr Clr Drug Dosing Not Reportable Est GFR ( Amer) 5.0 Est GFR (Non-Af Amer) 4.3 BUN/Creatinine Ratio 15.4 Glucose 170 H Lactate Calcium 9.4 Phosphorus 8.9 H Magnesium 2.3 Total Bilirubin 0.9 AST 81 H ALT 53 Alkaline Phosphatase 133 H Troponin I < 0.015 NT-Pro-B Natriuret Pep 1439 H Cancelled Total Protein 8.4 H Albumin 3.4 Globulin 5.0 H Albumin/Globulin Ratio 0.7 L Lipase 433 H 05/03/18 05/03/18 13:05 13:05 WBC RBC Hgb Hct MCV MCH MCHC RDW Std Deviation RDW Coeff of Pérez Plt Count MPV Immature Gran % (Auto) Neut % (Auto) Lymph % (Auto) Childress % (Auto) Eos % (Auto) Baso % (Auto) Immature Gran # (Auto) Neut # (Auto) Lymph # (Auto) Childress # (Auto) Eos # (Auto) Baso # (Auto) VBG pH 7.30 L VBG pCO2 40 VBG pO2 26 VBG HCO3 19 VBG O2 Saturation < 60.0 VBG Base Excess -6.9 Barometric Pressure 742.7 Sodium Potassium Chloride Carbon Dioxide Anion Gap BUN Creatinine Est Cr Clr Drug Dosing Est GFR ( Amer) Est GFR (Non-Af Amer) BUN/Creatinine Ratio Glucose Lactate 0.8 Calcium Phosphorus Magnesium Total Bilirubin AST ALT Alkaline Phosphatase Troponin I NT-Pro-B Natriuret Pep Total Protein Albumin Globulin Albumin/Globulin Ratio Lipase Diagnostic Findings CXR: IMPRESSION: Negative chest. CT abd/pelvis: IMPRESSION: No significant abnormality identified within the abdomen or pelvis. ECG Rhythm: sinus tachycardia Code Status & VTE Plan Code Status FULL VTE Prophylaxis Plan VTE Prophylaxis will be ordered: Yes Supervising Physician Co-Signing Physician Notes 68yo F with a PMH of anxiety, depression, h/o opioid dependence, DM II, HTN, asthma, chronic back pain and other medical problems listed below who presents with altered mental status and chest pain. Pt is a very poor historian and unreliable story due to changed in mental status. She said that she was not feeling herself and was afraid because she was not able to urinate. She said that she had diarrhea for the last few days. She said that she has been hearing a voice that is telling her things about herself and cause her to be afraid. In the ER lab showed elevated creatinine above [address] abd/ pelvis showed no significant abnormality identified within the abdomen or pelvis. CT head showed no acute intracranial abnormality. Nephrology on board and recommended to continue IVF with bicarb. Monitor BMP closely. Will monitor in telemetry and I asked for her to give a room next to the nursing station that she can be monitored very closely. Psych consult. Hold benzo or any med that can worsening her mental status. Alisson, MD _ (1) Acute renal failure Acute renal failure type: unspecified Qualified Code(s): N17.9 - Acute kidney failure, unspecified
[2018-05-03] MEDS ORDERED: D5W AND NSS IV SCH (15:00)
[2018-05-03] MEDS ORDERED: SODIUM BICARBONATE IV SCH (15:00)
--- NOTE | 2018-05-03 15:11 | CT Scan Report ---
CT abd pelvis wo con CT DOSE: 1753.65 mGy.cm HISTORY: Pain acute renal failure TECHNIQUE: Multiaxial CT images of the abdomen and pelvis were performed without contrast. A dose lo wering technique was utilized adhering to the principles of ALARA. COMPARISON STUDY: None. FINDINGS: The lung bases are clear. The unenhanced liver, spleen, gallbladder, pancreas, kidneys, and adrenal glands are within normal limits. No bowel wall thickening or obstruction. The pelvic organs are unremarkable. No suspicious lytic or blastic osseous lesions. Prior cholecystectomy. IMPRESSION: No significant abnormality identified within the abdomen or pelvis. The above report was generated using voice recognition software. It may contain grammatical, syntax or spelling errors. Electronically signed by: Parmjit Aparicio M.D. 05/03/2018 3:10 PM
--- NOTE | 2018-05-03 15:13 | Emergency Department Note ---
Entered by Pierce Carter acting as a scribe for History of Present Illness General Chief complaint: Cardiac Assessment Stated complaint: CHEST PAIN, SOB, ABUSED MEDS Time Seen by Provider: 05/03/18 11:13 Source: patient Limitations: no limitations History of Present Illness Provider complaint: Chest Pain Onset (ago): day(s) (3) Location: chest Pain Consistency: + constant Quality: + other (pressure) Associated symptoms: + fever/chills, + nausea/vomiting and + shortness of breath Treatments prior to arrival: none The patient is a 68 year old female who presents to the Emergency Room with complaints of constant chest pain for the past 3 days. The patient states that she has felt chest discomfort for the past 3 days, which she describes as a "pressure." She notes that the pressure was "terrible" earlier today, but has now improved and is only a 2/10 in severity. The patient also complains of intermittent diffuse "tingling" across her body. She adds that she has a history of panic attacks, and admits that her current symptoms feel similar to her panic attack episodes. The patient endorses multiple other symptoms including sorethroat, nausea, vomiting, diarrhea, shortness of breath, and fever. She denies any history of OR, but does note a history of COPD and asthma. She has had asthma attacks over the past year. The patient became tearful and states that she is worried that she is an "addict." She expressed concern that she is addicted to Klonapin but states she only takes her prescribed medications. Home Medications Home Medications Medication Instructions Recorded Confirmed Type atorvastatin 20 mg PO DAILY 05/03/18 05/03/18 History clonazepam 0.5 mg PO TID PRN 05/03/18 05/03/18 History cyclobenzaprine 10 mg PO BID PRN 05/03/18 05/03/18 History diphenoxylate-atropine 2 tab PO QID PRN 05/03/18 05/03/18 History duloxetine 120 mg PO DAILY 05/03/18 05/03/18 History fluticasone 2 spray INTRANASAL DAILY 05/03/18 05/03/18 History fluticasone [Flovent HFA] 2 puff INHALATION BID 05/03/18 05/03/18 History furosemide 40 mg PO DAILY PRN 05/03/18 05/03/18 History insulin aspart U-100 [Novolog 15 - 25 units SUBCUT QID MDD 100 05/03/18 History Flexpen U-100 Insulin] UNITS insulin glargine U-300 conc 75 units SUBCUT BID 05/03/18 05/03/18 History [Mathew SoloStar U-300 Insulin] lisinopril 10 mg PO DAILY 05/03/18 05/03/18 History metaxalone 800 mg PO QID PRN 05/03/18 05/03/18 History methscopolamine 2.5 mg PO TID PRN 05/03/18 05/03/18 History omeprazole 20 mg PO DAILY 05/03/18 05/03/18 History pramipexole 1 mg PO TID 05/03/18 05/03/18 History pregabalin [Lyrica] 150 mg PO BID 05/03/18 05/03/18 History quetiapine 1 tab PO HS 05/03/18 05/03/18 History Allergies Allergy/AdvReac Type Severity Reaction Status Date / Time bee venom protein (honey bee) Allergy Severe ANAPHYLAXIS Verified 05/03/18 13:39 iodine Allergy Severe ANAPHYLAXIS Verified 05/03/18 13:39 aspartame Allergy Unknown RASH Unverified 05/03/18 13:39 clonazepam Allergy Unknown ITCHING Unverified 05/03/18 13:39 RASH colestipol Allergy Unknown RASH Unverified 05/03/18 13:39 diphenhydramine Allergy Unknown UNKNOWN Unverified 05/03/18 13:39 doxycycline Allergy Unknown HIVES Unverified 05/03/18 13:39 glimepiride Allergy Unknown RASH Unverified 05/03/18 13:39 glyburide Allergy Unknown RASH Unverified 05/03/18 13:39 hydroxyzine Allergy Unknown MENTAL Unverified 05/03/18 13:39 CONFUSION metformin Allergy Unknown RASH Unverified 05/03/18 13:39 pioglitazone Allergy Unknown RASH Verified 05/03/18 13:39 pseudoephedrine Allergy Unknown JITTERINESS Unverified 05/03/18 13:39 rosuvastatin Allergy Unknown IRCHING Unverified 05/03/18 13:39 RASH shellfish derived Allergy Unknown SWELLING Unverified 05/03/18 13:39 OF FACE AND MOUTH tramadol Allergy Unknown NAUSE A Unverified 05/03/18 13:39 VOMITING Past Med/Surg History Medical History History of opioid abuse (Chronic) Hypertension (Chronic) Anxiety (Chronic) Dyslipidemia (Chronic) Osteoporosis (Chronic) IBS (irritable bowel syndrome) (Chronic) DM type 2 (diabetes mellitus, type 2) (Chronic) Neuropathy in diabetes (Chronic) Venous insufficiency (Chronic) GERD (gastroesophageal reflux disease) (Chronic) DJD (degenerative joint disease), cervical (Chronic) Depression (Chronic) Panic disorder (Chronic) Allergic rhinitis (Chronic) Surgical History S/P hysterectomy (Chronic) H/O colonoscopy (Chronic) "12/07/14- ischemic colitis, hyperplastic polyp" S/P cholecystectomy (Chronic) H/O arthroscopic knee surgery (Chronic) Family History Other Diabetes Social History Current Living Situation: Spouse current occupational status: retired Other Information That Helps Us Care for You: No Feels Safe at Home: Yes Safety Concerns: Feels Safe At This Time Smoking Status: Never smoker Do You Dip or Chew Tobacco: No Second Hand Exposure: No Tobacco Cessation Education Requested by Patient: No Hx Alcohol Use: No Hx Substance Use: No Beliefs That Will Affect Care: None Preferred Language: Djiboutian Communication Ability: Effective Locker Attendant Required: No Review of Systems See HPI for pertinent positives & negatives. and A total of 10 systems reviewed and were otherwise negative Physical Exam Vital Signs Vital Signs - 24 hr 05/03/18 11:17 05/03/18 11:26 05/03/18 11:34 Temperature 37.1 C 37.1 C Temperature Source Oral Oral Sepsis Recent Fever Within 48 Hours No Sepsis New/Unexplained Change in Mental Status No Sepsis Action Taken by Nursing No Action Required Pulse Rate 106 H Pulse Rate [Apical] 102 H 101 H Pulse Rhythm Regular Respiratory Rate 20 20 20 Respiratory Effort / Characteristics Non-Labored Spontaneous Non-Labored Spontaneous Non-Labored Spontaneous Respiratory Depth Normal Normal Normal Respiratory Pattern Regular Regular Regular Blood Pressure 92/58 L Blood Pressure [Right Arm] 92/58 L 124/64 Blood Pressure Mean 69 Blood Pressure Mean [Right Arm] 69 84 Blood Pressure Position Lying Blood Pressure Position [Right Arm] Lying Lying Pulse Oximetry 95 95 96 Oxygen Delivery Method Room Air Room Air Room Air 05/03/18 12:04 05/03/18 12:30 05/03/18 13:00 Temperature Temperature Source Sepsis Recent Fever Within 48 Hours Sepsis New/Unexplained Change in Mental Status Sepsis Action Taken by Nursing Pulse Rate Pulse Rate [Apical] 102 H 95 H 95 H Pulse Rhythm Respiratory Rate 20 20 20 Respiratory Effort / Characteristics Non-Labored Spontaneous Non-Labored Spontaneous Non-Labored Spontaneous Respiratory Depth Normal Normal Normal Respiratory Pattern Regular Regular Regular Blood Pressure Blood Pressure [Right Arm] 120/59 L 135/49 L 106/76 Blood Pressure Mean Blood Pressure Mean [Right Arm] 79 77 86 Blood Pressure Position Blood Pressure Position [Right Arm] Lying Lying Lying Pulse Oximetry 97 97 97 Oxygen Delivery Method Room Air Room Air Room Air 05/03/18 13:38 05/03/18 14:00 05/03/18 15:10 Temperature Temperature Source Sepsis Recent Fever Within 48 Hours Sepsis New/Unexplained Change in Mental Status Sepsis Action Taken by Nursing Pulse Rate Pulse Rate [Apical] 99 H 101 H Pulse Rhythm Respiratory Rate 20 18 Respiratory Effort / Characteristics Non-Labored Spontaneous Spontaneous Spontaneous Respiratory Depth Normal Normal Normal Respiratory Pattern Regular Regular Regular Blood Pressure Blood Pressure [Right Arm] 111/66 120/60 Blood Pressure Mean Blood Pressure Mean [Right Arm] 81 80 Blood Pressure Position Blood Pressure Position [Right Arm] Lying Pulse Oximetry 100 95 Oxygen Delivery Method Room Air Room Air Room Air 05/03/18 15:11 05/03/18 16:22 05/03/18 16:30 Temperature 37.1 C Temperature Source Oral Sepsis Recent Fever Within 48 Hours Sepsis New/Unexplained Change in Mental Status Sepsis Action Taken by Nursing Pulse Rate 108 H Pulse Rate [Apical] 104 H 108 H Pulse Rhythm Respiratory Rate 18 18 18 Respiratory Effort / Characteristics Spontaneous Respiratory Depth Normal Respiratory Pattern Regular Blood Pressure 113/57 L Blood Pressure [Right Arm] 103/87 113/57 L Blood Pressure Mean Blood Pressure Mean [Right Arm] 92 75 Blood Pressure Position Blood Pressure Position [Right Arm] Pulse Oximetry 95 95 95 Oxygen Delivery Method Room Air Room Air 05/03/18 19:32 Temperature 36.4 C L Temperature Source Oral Sepsis Recent Fever Within 48 Hours Sepsis New/Unexplained Change in Mental Status Sepsis Action Taken by Nursing Pulse Rate Pulse Rate [Apical] 104 H Pulse Rhythm Respiratory Rate 20 Respiratory Effort / Characteristics Respiratory Depth Respiratory Pattern Blood Pressure Blood Pressure [Right Arm] 97/53 L Blood Pressure Mean Blood Pressure Mean [Right Arm] 67 Blood Pressure Position Blood Pressure Position [Right Arm] Lying Pulse Oximetry 94 Oxygen Delivery Method Room Air GENERAL: Awake, alert, anxious appearing. BMI 47.7kg/m2 HENT: Normocephalic, atraumatic. Oropharynx with dry mucous membranes and otherwise unremarkable. EYES: Normal conjunctiva. Sclera non-icteric. NECK: Supple. No nuchal rigidity. FROM. No JVD. RESPIRATORY: Diminished at bases, otherwise clear to auscultation. CARDIAC: Regular rate, normal rhythm. Extremities warm and well perfused. Pulses equal. ABDOMEN: Soft, non-distended. No tenderness to palpation. No rebound or guarding. No masses. RECTAL: Deferred. MUSCULOSKELETAL: Chest examination reveals no tenderness. The back is symmetrical on inspection without obvious abnormality. There is no CVA tenderness to palpation. LOWER EXTREMITIES: Calves are equal size bilaterally and non-tender. 1+ bilateral LE edema. No discoloration. NEURO: Normal sensorium. No sensory or motor deficits noted. SKIN: No rash or jaundice noted. Course 1119: Past medical records reviewed. The patient was evaluated in room C5, and a complete history and physical examination were performed. 1246: I reviewed the patient's case with Dr. Moe Pop. He will evaluate the patient for further management. Consultations Consultation #2: [id number]: I reviewed the patient's case with Dr. Moe Pop. He will evaluate the patient for further management. Administered Medications Sodium Bicarbonate 150 meq/ (Dextrose) 1,150 mls @ 100 mls/hr IV .[id number] [facility] Stop: 06/02/18 15:59 Last Admin: 05/03/18 17:30 Dose: 100 mls/hr Insulin Aspart (Novolog Flexpen) 0 units SC [facility]; Protocol Stop: 06/02/18 19:29 Last Admin: 05/03/18 21:16 Dose: Not Given Admin: 05/03/18 21:06 Dose: 1 units Discontinued Medications Calcium Gluconate (Calcium Gluconate 10%) Confirm Administered Dose 1,000 mg IV .Glazeon-MED ONE Stop: 05/03/18 12:58 Last Admin: 05/03/18 13:16 Dose: Not Given Dextrose (Dextrose 50%) 50 ml IV NOW STA Stop: 05/03/18 12:33 Last Admin: 05/03/18 13:05 Dose: 50 ml Sodium Chloride (Nss 1000ml) 500 mls @ 999 mls/hr IV .Q31M ONE Stop: 05/03/18 11:58 Last Infusion: 05/03/18 12:08 Dose: 0 mls/hr Admin: 05/03/18 11:37 Dose: 999 mls/hr Insulin Human Regular 10 units (/ Syringe) 9.9 mls @ 3 mls/sec IV ONE STA Stop: 05/03/18 12:33 Last Admin: 05/03/18 13:05 Dose: 3 mls/sec Calcium Gluconate 2,000 mg/ (Sodium Chloride) 70 mls @ 240 mls/hr IV NOW STA Stop: 05/03/18 12:46 Last Infusion: 05/03/18 13:32 Dose: 0 mls/hr Admin: 05/03/18 13:14 Dose: 240 mls/hr Sodium Chloride (Nss 1000ml) 1,000 mls @ 125 mls/hr IV .Q8H STA Stop: 05/03/18 20:35 Last Admin: 05/03/18 13:06 Dose: 125 mls/hr Sodium Bicarbonate 150 meq/ (Dextrose/Sodium Chloride) 1,150 mls @ 100 mls/hr IV .[id number] [facility] Stop: 06/02/18 14:59 Last Infusion: 05/03/18 15:37 Dose: 0 mls/hr Admin: 05/03/18 15:16 Dose: 100 mls/hr Insulin Glargine (Lantus Solostar Pen) 60 units SC TODAY@2100 ONE; Protocol Stop: 05/03/18 21:01 Last Admin: 05/03/18 21:07 Dose: 60 units Insulin Human Regular (Novolin R U-100 Per Unit) Confirm Administered Dose 10 units .ROUTE .STK-MED ONE Stop: 05/03/18 13:00 Last Admin: 05/03/18 13:11 Dose: Not Given Sodium Polystyrene Sulfonate (Kayexalate) 15 gm PO NOW STA Stop: 05/03/18 12:33 Last Admin: 05/03/18 13:04 Dose: 15 gm Medical Decision Making Differential Diagnosis Differential diagnosis: Etiologies such as shingles, musculoskeletal pain, pericarditis, myocarditis, cardiac ischemia, pericardial tamponade, pneumonia, pneumothorax, pleural effusion, hemothorax, pleurisy, aortic pathology, pulmonary embolism, intra- abdominal process, as well as others were considered. Medical Records Attestation: I reviewed the patient's medical records. Home Medications Current Medication List: was personally reviewed by me Laboratory Data Attestation: I reviewed the patient's lab results. Result diagrams: 05/03/18 11:34 05/03/18 20:41 Lab Results 05/03/18 05/03/18 05/03/18 Range/Units 11:34 11:34 11:34 WBC 8.93 (4.8-10.8) K/uL RBC 3.88 L (4.2-5.4) M/uL Hgb 10.9 L (12.0-16.0) g/dL Hct 33.5 L (37-47) % MCV 86.3 (80-100) fL MCH 28.1 (25-34) pg MCHC 32.5 (32-36) g/dL RDW Std Deviation 56.1 H (36.4-46.3) fL RDW Coeff of Pérez 18.0 H (11.5-14.5) % Plt Count 178 (130-400) K/uL MPV 11.7 H (7.4-10.4) fL Immature Gran % (Auto) 0.1 % Neut % (Auto) 87.9 % Lymph % (Auto) 6.4 % [place] % (Auto) 5.4 % Eos % (Auto) 0.1 % Baso % (Auto) 0.1 % Immature Gran # (Auto) 0.01 (0.00-0.02) K/uL Neut # (Auto) 7.85 H (1.4-6.5) K/uL Lymph # (Auto) 0.57 L (1.2-3.4) K/uL [place] # (Auto) 0.48 (0.11-0.59) K/uL Eos # (Auto) 0.01 (0-0.5) K/uL Baso # (Auto) 0.01 (0-0.2) K/uL VBG pH (7.36-7.41) VBG pCO2 (38-50) mmHg VBG pO2 mmHg VBG HCO3 mmol/L VBG O2 Saturation % VBG Base Excess mEq/L Barometric Pressure mm/Hg Sodium 127 L (136-145) mmol/L Potassium 6.3 H* (3.5-5.1) mmol/L Chloride 92 L (98-107) mmol/L Carbon Dioxide 19 L (21-32) mmol/L Anion Gap 16.0 H (3-11) BUN 134 H (7-18) mg/dl Creatinine 8.71 H* (0.6-1.2) mg/dl Est Cr Clr Drug Dosing Not Reportable Est GFR ( Amer) 5.0 Est GFR (Non-Af Amer) 4.3 BUN/Creatinine Ratio 15.4 (10-20) Glucose 170 H (70-99) mg/dl POC Glucose (70-99) Osmolality (280-300) mOsm/kg Lactate (0.4-2.0) mmol/L Calcium 9.4 (8.5-10.1) mg/dl Phosphorus 8.9 H (2.5-4.9) mg/dl Magnesium 2.3 (1.8-2.4) mg/dl Total Bilirubin 0.9 (0.1-1) mg/dl AST 81 H (15-37) U/L ALT 53 (12-78) U/L Alkaline Phosphatase 133 H (45-117) U/L Troponin I < 0.015 (0-0.045) ng/ml NT-Pro-B Natriuret Pep 1439 H Cancelled (0-900) pg/ml Total Protein 8.4 H (6.4-8.2) gm/dl Albumin 3.4 (3.4-5.0) gm/dl Globulin 5.0 H (2.5-4.0) gm/dl Albumin/Globulin Ratio 0.7 L (0.9-2) Lipase 433 H (73-393) U/L Urine Color Urine Appearance (Clear) Urine pH (4.5-7.5) Ur Specific Jeffers (1.000-1.030) Urine Protein (Negative) Urine Glucose (UA) (Negative) Urine Ketones (Negative) Urine Blood (Negative) Urine Nitrite (Negative) Urine Bilirubin (Negative) Urine Urobilinogen (Negative) Ur Leukocyte Esterase (Negative) Urine WBC (Auto) (0-5) /hpf Urine RBC (Auto) (0-4) /hpf U Hyaline Cast (Auto) (0-5) /lpf U Epithel Cells (Auto) (0-5) /lpf Urine Bacteria (Auto) (Negative) Urine Osmolality (500-800) mOsm/kg Ur Random Creatinine mg/dl Ur Random Sodium mmol/L Urine Opiates Screen (Neg) Ur Methadone, Qual (Neg) Urine Barbiturates (Neg) Ur Phencyclidine (PCP) (Neg) U Amphetamin/Meth Scrn (Neg) MDMA (Ecstasy) Screen (Neg) U Benzodiazepines Scrn (Neg) Ur Cocaine Metabolite (Neg) U Marijuana (THC) Screen (Neg) 05/03/18 05/03/18 05/03/18 Range/Units 11:34 13:05 13:05 WBC (4.8-10.8) K/uL RBC (4.2-5.4) M/uL Hgb (12.0-16.0) g/dL Hct (37-47) % MCV (80-100) fL MCH (25-34) pg MCHC (32-36) g/dL RDW Std Deviation (36.4-46.3) fL RDW Coeff of Pérez (11.5-14.5) % Plt Count (130-400) K/uL MPV (7.4-10.4) fL Immature Gran % (Auto) % Neut % (Auto) % Lymph % (Auto) % [place] % (Auto) % Eos % (Auto) % Baso % (Auto) % Immature Gran # (Auto) (0.00-0.02) K/uL Neut # (Auto) (1.4-6.5) K/uL Lymph # (Auto) (1.2-3.4) K/uL [place] # (Auto) (0.11-0.59) K/uL Eos # (Auto) (0-0.5) K/uL Baso # (Auto) (0-0.2) K/uL VBG pH 7.30 L (7.36-7.41) VBG pCO2 40 (38-50) mmHg VBG pO2 26 mmHg VBG HCO3 19 mmol/L VBG O2 Saturation < 60.0 % VBG Base Excess -6.9 mEq/L Barometric Pressure 742.7 mm/Hg Sodium (136-145) mmol/L Potassium (3.5-5.1) mmol/L Chloride (98-107) mmol/L Carbon Dioxide (21-32) mmol/L Anion Gap (3-11) BUN (7-18) mg/dl Creatinine (0.6-1.2) mg/dl Est Cr Clr Drug Dosing Est GFR ( Amer) Est GFR (Non-Af Amer) BUN/Creatinine Ratio (10-20) Glucose (70-99) mg/dl POC Glucose (70-99) Osmolality 325 H (280-300) mOsm/kg Lactate 0.8 (0.4-2.0) mmol/L Calcium (8.5-10.1) mg/dl Phosphorus (2.5-4.9) mg/dl Magnesium (1.8-2.4) mg/dl Total Bilirubin (0.1-1) mg/dl AST (15-37) U/L ALT (12-78) U/L Alkaline Phosphatase (45-117) U/L Troponin I (0-0.045) ng/ml NT-Pro-B Natriuret Pep (0-900) pg/ml Total Protein (6.4-8.2) gm/dl Albumin (3.4-5.0) gm/dl Globulin (2.5-4.0) gm/dl Albumin/Globulin Ratio (0.9-2) Lipase (73-393) U/L Urine Color Urine Appearance (Clear) Urine pH (4.5-7.5) Ur Specific Jeffers (1.000-1.030) Urine Protein (Negative) Urine Glucose (UA) (Negative) Urine Ketones (Negative) Urine Blood (Negative) Urine Nitrite (Negative) Urine Bilirubin (Negative) Urine Urobilinogen (Negative) Ur Leukocyte Esterase (Negative) Urine WBC (Auto) (0-5) /hpf Urine RBC (Auto) (0-4) /hpf U Hyaline Cast (Auto) (0-5) /lpf U Epithel Cells (Auto) (0-5) /lpf Urine Bacteria (Auto) (Negative) Urine Osmolality (500-800) mOsm/kg Ur Random Creatinine mg/dl Ur Random Sodium mmol/L Urine Opiates Screen (Neg) Ur Methadone, Qual (Neg) Urine Barbiturates (Neg) Ur Phencyclidine (PCP) (Neg) U Amphetamin/Meth Scrn (Neg) MDMA (Ecstasy) Screen (Neg) U Benzodiazepines Scrn (Neg) Ur Cocaine Metabolite (Neg) U Marijuana (THC) Screen (Neg) 05/03/18 05/03/18 05/03/18 Range/Units 15:08 15:18 18:35 WBC (4.8-10.8) K/uL RBC (4.2-5.4) M/uL Hgb (12.0-16.0) g/dL Hct (37-47) % MCV (80-100) fL MCH (25-34) pg MCHC (32-36) g/dL RDW Std Deviation (36.4-46.3) fL RDW Coeff of Pérez (11.5-14.5) % Plt Count (130-400) K/uL MPV (7.4-10.4) fL Immature Gran % (Auto) % Neut % (Auto) % Lymph % (Auto) % [place] % (Auto) % Eos % (Auto) % Baso % (Auto) % Immature Gran # (Auto) (0.00-0.02) K/uL Neut # (Auto) (1.4-6.5) K/uL Lymph # (Auto) (1.2-3.4) K/uL [place] # (Auto) (0.11-0.59) K/uL Eos # (Auto) (0-0.5) K/uL Baso # (Auto) (0-0.2) K/uL VBG pH (7.36-7.41) VBG pCO2 (38-50) mmHg VBG pO2 mmHg VBG HCO3 mmol/L VBG O2 Saturation % VBG Base Excess mEq/L Barometric Pressure mm/Hg Sodium 131 L (136-145) mmol/L Potassium 5.3 H D (3.5-5.1) mmol/L Chloride 96 L (98-107) mmol/L Carbon Dioxide 19 L (21-32) mmol/L Anion Gap 16.0 H (3-11) BUN 134 H (7-18) mg/dl Creatinine 7.82 H* D (0.6-1.2) mg/dl Est Cr Clr Drug Dosing 10.6 Est GFR ( Amer) 5.7 Est GFR (Non-Af Amer) 4.9 BUN/Creatinine Ratio 17.1 (10-20) Glucose 90 (70-99) mg/dl POC Glucose 130 H (70-99) Osmolality (280-300) mOsm/kg Lactate (0.4-2.0) mmol/L Calcium 9.8 (8.5-10.1) mg/dl Phosphorus (2.5-4.9) mg/dl Magnesium (1.8-2.4) mg/dl Total Bilirubin 0.8 (0.1-1) mg/dl AST 78 H (15-37) U/L ALT 52 (12-78) U/L Alkaline Phosphatase 122 H (45-117) U/L Troponin I (0-0.045) ng/ml NT-Pro-B Natriuret Pep (0-900) pg/ml Total Protein 7.8 (6.4-8.2) gm/dl Albumin 3.1 L (3.4-5.0) gm/dl Globulin 4.7 H (2.5-4.0) gm/dl Albumin/Globulin Ratio 0.7 L (0.9-2) Lipase (73-393) U/L Urine Color Urine Appearance (Clear) Urine pH (4.5-7.5) Ur Specific Jeffers (1.000-1.030) Urine Protein (Negative) Urine Glucose (UA) (Negative) Urine Ketones (Negative) Urine Blood (Negative) Urine Nitrite (Negative) Urine Bilirubin (Negative) Urine Urobilinogen (Negative) Ur Leukocyte Esterase (Negative) Urine WBC (Auto) (0-5) /hpf Urine RBC (Auto) (0-4) /hpf U Hyaline Cast (Auto) (0-5) /lpf U Epithel Cells (Auto) (0-5) /lpf Urine Bacteria (Auto) (Negative) Urine Osmolality (500-800) mOsm/kg Ur Random Creatinine mg/dl Ur Random Sodium mmol/L Urine Opiates Screen Neg (Neg) Ur Methadone, Qual Neg (Neg) Urine Barbiturates Neg (Neg) Ur Phencyclidine (PCP) Neg (Neg) U Amphetamin/Meth Scrn Neg (Neg) MDMA (Ecstasy) Screen Neg (Neg) U Benzodiazepines Scrn Neg (Neg) Ur Cocaine Metabolite Neg (Neg) U Marijuana (THC) Screen Neg (Neg) 05/03/18 05/03/18 05/03/18 Range/Units 20:41 20:45 22:20 WBC (4.8-10.8) K/uL RBC (4.2-5.4) M/uL Hgb (12.0-16.0) g/dL Hct (37-47) % MCV (80-100) fL MCH (25-34) pg MCHC (32-36) g/dL RDW Std Deviation (36.4-46.3) fL RDW Coeff of Pérez (11.5-14.5) % Plt Count (130-400) K/uL MPV (7.4-10.4) fL Immature Gran % (Auto) % Neut % (Auto) % Lymph % (Auto) % [place] % (Auto) % Eos % (Auto) % Baso % (Auto) % Immature Gran # (Auto) (0.00-0.02) K/uL Neut # (Auto) (1.4-6.5) K/uL Lymph # (Auto) (1.2-3.4) K/uL [place] # (Auto) (0.11-0.59) K/uL Eos # (Auto) (0-0.5) K/uL Baso # (Auto) (0-0.2) K/uL VBG pH (7.36-7.41) VBG pCO2 (38-50) mmHg VBG pO2 mmHg VBG HCO3 mmol/L VBG O2 Saturation % VBG Base Excess mEq/L Barometric Pressure mm/Hg Sodium 133 L (136-145) mmol/L Potassium 4.9 (3.5-5.1) mmol/L Chloride 97 L (98-107) mmol/L Carbon Dioxide 17 L (21-32) mmol/L Anion Gap 19.0 H (3-11) BUN 128 H (7-18) mg/dl Creatinine 6.81 H* D (0.6-1.2) mg/dl Est Cr Clr Drug Dosing 12.2 Est GFR ( Amer) 6.7 Est GFR (Non-Af Amer) 5.8 BUN/Creatinine Ratio 18.7 (10-20) Glucose 150 H (70-99) mg/dl POC Glucose 155 H (70-99) Osmolality (280-300) mOsm/kg Lactate (0.4-2.0) mmol/L Calcium 9.2 (8.5-10.1) mg/dl Phosphorus (2.5-4.9) mg/dl Magnesium (1.8-2.4) mg/dl Total Bilirubin (0.1-1) mg/dl AST (15-37) U/L ALT (12-78) U/L Alkaline Phosphatase (45-117) U/L Troponin I (0-0.045) ng/ml NT-Pro-B Natriuret Pep (0-900) pg/ml Total Protein (6.4-8.2) gm/dl Albumin (3.4-5.0) gm/dl Globulin (2.5-4.0) gm/dl Albumin/Globulin Ratio (0.9-2) Lipase (73-393) U/L Urine Color Yellow Urine Appearance Clear (Clear) Urine pH 5.0 (4.5-7.5) Ur Specific [place] 1.011 (1.000-1.030) Urine Protein Trace H (Negative) Urine Glucose (UA) Negative (Negative) Urine Ketones Negative (Negative) Urine Blood 2+ H (Negative) Urine Nitrite Negative (Negative) Urine Bilirubin Negative (Negative) Urine Urobilinogen Negative (Negative) Ur Leukocyte Esterase 2+ H (Negative) Urine WBC (Auto) >30 H (0-5) /hpf Urine RBC (Auto) 0-4 (0-4) /hpf U Hyaline Cast (Auto) 1-5 (0-5) /lpf U Epithel Cells (Auto) 0-5 (0-5) /lpf Urine Bacteria (Auto) 1+ H (Negative) Urine Osmolality (500-800) mOsm/kg Ur Random Creatinine mg/dl Ur Random Sodium mmol/L Urine Opiates Screen (Neg) Ur Methadone, Qual (Neg) Urine Barbiturates (Neg) Ur Phencyclidine (PCP) (Neg) U Amphetamin/Meth Scrn (Neg) MDMA (Ecstasy) Screen (Neg) U Benzodiazepines Scrn (Neg) Ur Cocaine Metabolite (Neg) U Marijuana (THC) Screen (Neg) 05/03/18 05/03/18 Range/Units 22:20 22:20 WBC (4.8-10.8) K/uL RBC (4.2-5.4) M/uL Hgb (12.0-16.0) g/dL Hct (37-47) % MCV (80-100) fL MCH (25-34) pg MCHC (32-36) g/dL RDW Std Deviation (36.4-46.3) fL RDW Coeff of Préez (11.5-14.5) % Plt Count (130-400) K/uL MPV (7.4-10.4) fL Immature Gran % (Auto) % Neut % (Auto) % Lymph % (Auto) % [place] % (Auto) % Eos % (Auto) % Baso % (Auto) % Immature Gran # (Auto) (0.00-0.02) K/uL Neut # (Auto) (1.4-6.5) K/uL Lymph # (Auto) (1.2-3.4) K/uL [place] # (Auto) (0.11-0.59) K/uL Eos # (Auto) (0-0.5) K/uL Baso # (Auto) (0-0.2) K/uL VBG pH (7.36-7.41) VBG pCO2 (38-50) mmHg VBG pO2 mmHg VBG HCO3 mmol/L VBG O2 Saturation % VBG Base Excess mEq/L Barometric Pressure mm/Hg Sodium (136-145) mmol/L Potassium (3.5-5.1) mmol/L Chloride (98-107) mmol/L Carbon Dioxide (21-32) mmol/L Anion Gap (3-11) BUN (7-18) mg/dl Creatinine (0.6-1.2) mg/dl Est Cr Clr Drug Dosing Est GFR ( Amer) Est GFR (Non-Af Amer) BUN/Creatinine Ratio (10-20) Glucose (70-99) mg/dl POC Glucose (70-99) Osmolality (280-300) mOsm/kg Lactate (0.4-2.0) mmol/L Calcium (8.5-10.1) mg/dl Phosphorus (2.5-4.9) mg/dl Magnesium (1.8-2.4) mg/dl Total Bilirubin (0.1-1) mg/dl AST (15-37) U/L ALT (12-78) U/L Alkaline Phosphatase (45-117) U/L Troponin I (0-0.045) ng/ml NT-Pro-B Natriuret Pep (0-900) pg/ml Total Protein (6.4-8.2) gm/dl Albumin (3.4-5.0) gm/dl Globulin (2.5-4.0) gm/dl Albumin/Globulin Ratio (0.9-2) Lipase (73-393) U/L Urine Color Urine Appearance (Clear) Urine pH (4.5-7.5) Ur Specific [place] (1.000-1.030) Urine Protein (Negative) Urine Glucose (UA) (Negative) Urine Ketones (Negative) Urine Blood (Negative) Urine Nitrite (Negative) Urine Bilirubin (Negative) Urine Urobilinogen (Negative) Ur Leukocyte Esterase (Negative) Urine WBC (Auto) (0-5) /hpf Urine RBC (Auto) (0-4) /hpf U Hyaline Cast (Auto) (0-5) /lpf U Epithel Cells (Auto) (0-5) /lpf Urine Bacteria (Auto) (Negative) Urine Osmolality 343 L (500-800) mOsm/kg Ur Random Creatinine 64.5 mg/dl Ur Random Sodium 68 mmol/L Urine Opiates Screen (Neg) Ur Methadone, Qual (Neg) Urine Barbiturates (Neg) Ur Phencyclidine (PCP) (Neg) U Amphetamin/Meth Scrn (Neg) MDMA (Ecstasy) Screen (Neg) U Benzodiazepines Scrn (Neg) Ur Cocaine Metabolite (Neg) U Marijuana (THC) Screen (Neg) Imaging Data Attestation: I personally reviewed and interpreted this imaging study as follows : Radiologist's Impression: XR chest 1V portable CLINICAL HISTORY: Chest Pain dyspnea COMPARISON STUDY: 06/11/2016 FINDINGS: The bones soft tissues and hemidiaphragms are normal. The cardiomediastinal silhouette is normal. The lungs are clear. The pulmonary vasculature is normal. IMPRESSION: Negative chest. The above report was generated using voice recognition software. It may contain grammatical, syntax or spelling errors. Electronically signed by: Parmjit Aparicio M.D. 05/03/2018 11:56 AM ECG Data Attestation: I personally reviewed and interpreted this ECG as follows: Indication: chest pain Rate (beats per minute): 108 Rhythm: sinus tachycardia Findings: + other (Normal axis, no peaked t-waves. QRS is 92. ); no acute ischemic change Blood Pressure Blood Pressure Findings: Low blood pressure Blood Pressure Disposition: further management by hospitalist JAXSON Narrative The patient is a pleasant 68-year-old woman with a past medical history of anxiety, fluid retention on Lasix who presents to emergency department with constant chest pain shortness of breath for the past several days per hpi. Of note, the patient is a poor historian, slightly confused and perseverates on feeling her symptoms are related to her anxiety/panic attacks and is somewhat tearful when saying that she feels she is addicted to her medications for which to me she reports taking only her prescribed medications. On arrival the patient is in no acute distress, afebrile with heart rate in the 100 and blood pressure in the 90s/50s. EKG without evidence of acute ischemia and without peak T waves or QRS widening. Chest x-ray unremarkable. WBC within normal limits. Hemoglobin is 10.9 without reasons for comparison. Chemistry demonstrates new acute renal failure with creatinine of 8.7 and BUN of 134. Hyperkalemia of 6.3. Hyponatremia of 127. Phosphorus 8.9. Troponin negative. Patient ordered for CT abdomen pelvis given new renal failure and is pending. Otherwise, the patient was treated for her renal failure and and hyperkalemia with IV fluid hydration as well as calcium, insulin and Kayexalate. BP improved to 120s/60s with hydration. Case was discussed with Dr. Vinson, [facility] hospitalist, who will evaluate the patient for admission. Impression & Plan Acute renal failure, Hyperkalemia Critical Care Time I have personally spent greater than 60 minutes of critical care time in the direct management of this patient. This includes bedside care, interpretation of diagnostic studies, and testing, discussion with consultants, patient, and family members, and other required patient management activities. This 60 minutes is in excess of all separately billable procedures. Critical Care Time: Yes Total Critical Care Time: 60 Discharge Plan Visit Data *Final* Discharge Date/Time: 05/03/18 16:30 Chief Complaint: Cardiac Assessment Stated Complaint: CHEST PAIN, SOB, ABUSED MEDS ED Provider: Cross,Justin E Discharge Problem: Acute renal failure, Hyperkalemia Patient Disposition: Admitted As Inpatient Discharge Instructions Interventions: ED Discharge Assessment Last Done: 05/03/18 16:30 The scribe's documentation has been prepared under my direction and personally reviewed by me in its entirety. I confirm that the note above accurately reflects all work, treatment, procedures, and medical decision making performed by me.
[2018-05-03 15:52] LABS: Albumin Globulin Ratio 0.7 (0.9-2); Albumin Level 3.1 gm/dl (3.4-5.0); BUN Creatinine Ratio 17.1 (10-20); Bilirubin,Total 0.8 mg/dl (0.1-1); Calcium 9.8 mg/dl (8.5-10.1); Creatinine Clr Calc Pharmacy 10.6 ml/min; Est GFR (African American) 5.7; Est GFR (Non-African American) 4.9; Globulin 4.7 gm/dl (2.5-4.0); Potassium 5.3 mmol/L (3.5-5.1); Total Protein 7.8 gm/dl (6.4-8.2)
[2018-05-03 16:13] LABS: Amphetamines+Metham, Urine Neg (Neg); Barbiturates, Urine Neg (Neg); Benzodiazepine, Urine Neg (Neg); Cocaine, Urine Neg (Neg); MDMA (Ecstacy), Urine Neg (Neg); Methadone, Urine Neg (Neg); Opiate, Urine Neg (Neg); Phencyclidine, Urine Neg (Neg)
[2018-05-03] MEDS ORDERED: PHARMACY GLYCEMIC MGMT CONSULT SCH (17:10)
[2018-05-03] MEDS ORDERED: DEXTROSE 50% 50 ML SYRINGE IV PRN (17:17)
[2018-05-03] MEDS ORDERED: GLUCOSE 10 TABS/TUBE PO PRN (17:17)
[2018-05-03] MEDS ORDERED: GLUCOSE 40% GEL 15 GM TUBE PO PRN (17:17)
[2018-05-03] MEDS ORDERED: GLUCAGON FOR INJ 1 MG VIAL IM PRN (17:17)
--- NOTE | 2018-05-03 17:27 | CT Scan Report ---
CT head/brain wo con CT DOSE: 1228.53 mGy.cm HISTORY: Mental status change repeated falls at home, AMS TECHNIQUE: Multiaxial CT images of the head were performed without the use of intravenous contrast. A dose lowering technique was utilized adhering to the principles of ALARA. Comparison: None. Findings: The paranasal sinuses and mastoid air cells are clear. The calvarium and skull base are int act. The ventricles and sulci are within normal limits. There is no mass, hematoma, midline shift, or acute infarct. Impression: No acute intracranial abnormality. The above report was generated using voice recognition software. It may contain grammatical, syntax or spelling errors. Electronically signed by: Parmjit Aparicio M.D. 05/03/2018 5:25 PM
[2018-05-03] MEDS: SODIUM BICARBONATE 8.4% 150 MEQ in DEXTROSE 5% 1,000 ML IV SCH (17:30)
--- NOTE | 2018-05-03 17:35 | Pharmacy Report ---
Glycemic Control Consultation - Date of Service May 03, 2018 - Scope Scope: Glycemic Pharmacist consulted by Denise Titus PA-C on 05/03/18 for glycemic control and to write orders per [facility] inpatient glycemic control protocol - Objective Weight: 142.3 kg Accuchecks BSG (last 24hrs): 05/03/18 05/03/18 11:34 15:08 Glucose 170 H 90 Laboratory Data (last 24hrs): 05/03/18 05/03/18 05/03/18 11:34 11:34 15:08 Potassium 6.3 H* 5.3 H D Carbon Dioxide 19 L 19 L Anion Gap 16.0 H 16.0 H Creatinine 8.71 H* 7.82 H* D Est Cr Clr Drug Dosing Not Reportable 10.6 Osmolality 325 H - Recent Pertinent Medications Outpatient Anti-diabetic Regimen: * Insulin glargine U-300 units (Toujeo) 75units BID * Novolog 15-25 units QID * A1c = 8.9% 02/11/18 - NOTE Pt on HD Risk Factors for Insulin Resistance: * IVF: D5 + 150meq NaBicarb * Diet: NPO - Assessment & Plan Assessment & Plan: ASSESSMENT: * 68 year old female, admitted with ARF, CP, polypharmacy, admitting to overtaking seroquel, also found to have cyclobenzaprine and metaxalone. * Type 2 diabetic on Toujeo (insulin glargine U-300) and Novolog at home, A1c above goal at 8.9%, although not completely reliable for patient on HD. * With NPO status and patient using Lantus, will give 80% of home Toujeo dose with Lantus as recommended, then begin 1:1 conversion tomorrow morning - based on blood sugars. * Will begin a CF and CR based on a TDD of 210 units (pt uses up to 250 units/ day), and tighten as needed, as BSG is 90mg/dl at this time. * ADA & AACE recommend a goal blood sugar range 140-180 mg/dl for the majority of critically ill & non-critically ill patients. However, more stringent targets may be selected in individual cases. Will utilize more stringent goal of 120-150mg/dl based on patient age & comorbidities. Additionally, tighter glycemic control is warranted to facilitate wound/infection healing. PLAN FOR INPATIENT GLYCEMIC CONTROL: * Basal insulin * Lantus 60 units SQ tonight x 1 then * 75 units SQ BID starting tomorrow morning, after blood sugars evaluated * Bolus insulin * NovoLog per scale Q6hrs NPO * Goal Range: Low 120 mg/dL - High 150 mg/dL * Correction Factor: 12 mg/dL/unit * Nutritional / Prandial insulin per carb ratio of 1 unit per 4 grams CHO consumed * Please note that the plan above was derived based on current level of insulin resistance and hospital stress. These recommendations are appropriate for inpatient admission only. Plan of care upon discharge will need to be reassessed to avoid potential outpatient hypo/hyperglycemia. Thank you.
[2018-05-03] MEDS ORDERED: INSULIN ASPART 100 UNITS/ML 3 ML PEN SC SCH ×2 (18:00)
[2018-05-03] MEDS ORDERED: INSULIN GLARGINE SOLOSTAR 100 UNITS/ML 3 ML PEN SC ONE (21:00)
[2018-05-03] MEDS: INSULIN ASPART 100 UNITS/ML 3 ML PEN SC SCH ×2 (21:06→21:16)
[2018-05-03 21:38] LABS: BUN Creatinine Ratio 18.7 (10-20); Calcium 9.2 mg/dl (8.5-10.1); Creatinine Clr Calc Pharmacy 12.2 ml/min; Est GFR (African American) 6.7; Est GFR (Non-African American) 5.8; Potassium 4.9 mmol/L (3.5-5.1)
[2018-05-03 22:45] LABS: Appearance Urine Clear (Clear); Bacteria Urine Automated 1+ (Negative); Bilirubin Urine Negative (Negative); Color Urine Yellow; Epithelial Cell Urine Auto 0-5 /lpf (0-5); Glucose Urine UA Negative (Negative); Ketones Urine Negative (Negative); Leukocyte Esterase Urine 2+ (Negative); Nitrite Urine Negative (Negative); Protein Urine Trace (Negative); Specific Gravity Urine 1.011 (1.000-1.030); Urobilinogen Urine Negative (Negative); WBC Urine Automated >30 /hpf (0-5)
[2018-05-03 23:18] LABS: Creatinine Urine Random 64.5 mg/dl
--- NOTE | 2018-05-03 23:22 | Hospitalist Progress Note ---
Date of Service May 03, 2018 Subjective Overnight developments : 05/03, 11 PM Made aware by RN of abnormal UA results - WBC esterase positive. IV Cefepime initiated for possible UTI as cause of encephalopathy. 05/04, 3:45 AM SBP 70-80s, patient febrile, sweaty as per RN Cultures obtained, IVF bolus given, IV Vancomycin added to Cefepime for sepsis. Lactic acid noted to be normal. SBP up to 99 later 80s despite fluid resuscitation. Decadron 1 dose given for possible adrenal insufficiency as cause of hypotension. Will relay to AM provider. Physical Exam 2 Vital Signs (Past 24 Hours): Last Vital Signs Temp 36.4 C L 05/03/18 19:32 Pulse 104 H 05/03/18 19:32 Resp 20 05/03/18 19:32 BP 97/53 L 05/03/18 19:32 Pulse Ox 94 05/03/18 19:32
[2018-05-03] MEDS ORDERED: CEFEPIME 2,000 MG in SYRINGE 7.5 ML IV STA (23:49)
[2018-05-04] MEDS ORDERED: ACETAMINOPHEN 650 MG/65 ML VIAL IV ONE (04:05)
[2018-05-04] MEDS ORDERED: VANCOMYCIN CONSULT ACTIVE PRN (04:08)
[2018-05-04] MEDS: SODIUM CHLORIDE 0.9% 500 ML IV ONE ×2 (04:22→05:21)
[2018-05-04] MEDS ORDERED: SODIUM CHLORIDE 0.9% 1,000 ML IV ONE (04:26)
[2018-05-04 04:49] LABS: Basophils # (auto) 0.01 K/uL (0-0.2); Basophils % (auto) 0.2 %; Hematocrit (blood only) 28.1 % (37-47); Hemoglobin 9.4 g/dL (12.0-16.0); Immature Granulocytes # (auto) 0.01 K/uL (0.00-0.02); Immature Granulocytes % (auto) 0.2 %; Lymphocytes # (auto) 0.28 K/uL (1.2-3.4); Lymphocytes % (auto) 6.6 %; Mean Corpuscular Hgb Conc 33.5 g/dL (32-36); Mean Corpuscular Volume 84.6 fL (80-100); Mean Platelet Volume 11.5 fL (7.4-10.4); Monocytes # (auto) 0.69 K/uL (0.11-0.59); Monocytes % (auto) 16.2 %; Neutrophils # (auto) 3.27 K/uL (1.4-6.5); Neutrophils % (auto) 76.8 %; Platelet Count 124 K/uL (130-400); RDW Coefficient of Variation 17.6 % (11.5-14.5); RDW Standard Deviation 54.3 fL (36.4-46.3); Red Blood Count 3.32 M/uL (4.2-5.4); White Blood Count 4.26 K/uL (4.8-10.8)
[2018-05-04 04:51] LABS: Base Excess VBG -0.2 mEq/L; HCO3 VBG 23 mmol/L; Oxygen Saturation VBG 91.9 %; PCO2 VBG 33 mmHg (38-50); PO2 VBG 66 mmHg; pH VBG 7.47 (7.36-7.41)
[2018-05-04] MEDS ORDERED: VANCOMYCIN HCL 2,000 MG in SODIUM CHLORIDE 0.9% 500 ML IV ONE (05:00)
[2018-05-04] MEDS ORDERED: SODIUM CHLORIDE 0.9% 1000ML 1,000 ML IV SCH (05:00)
[2018-05-04 05:23] LABS: Prothrombin Time 10.9 Seconds (9.0-12.0)
[2018-05-04 05:27] LABS: Salicylate 1.8 mg/dl (2.8-20)
[2018-05-04 05:30] LABS: Alanine Aminotransferase 42 U/L (12-78); Albumin Globulin Ratio 0.6 (0.9-2); Albumin Level 2.7 gm/dl (3.4-5.0); Alkaline Phosphatase 108 U/L (45-117); Aspartate Aminotransferase 60 U/L (15-37); BUN Creatinine Ratio 22.8 (10-20); Bilirubin,Total 0.7 mg/dl (0.1-1); Blood Urea Nitrogen 120 mg/dl (7-18); Calcium 8.9 mg/dl (8.5-10.1); Carbon Dioxide 22 mmol/L (21-32); Chloride 96 mmol/L (98-107); Creatine Kinase 848 U/L (26-192); Creatinine Clr Calc Pharmacy 15.8 ml/min; Est GFR (African American) 9.1; Est GFR (Non-African American) 7.9; Globulin 4.4 gm/dl (2.5-4.0); Glucose 189 mg/dl (70-99); Magnesium 1.9 mg/dl (1.8-2.4); Potassium 4.1 mmol/L (3.5-5.1); Sodium 132 mmol/L (136-145); Total Protein 7.1 gm/dl (6.4-8.2); Troponin I < 0.015 ng/ml (0-0.045)
[2018-05-04] MEDS: SODIUM CHLORIDE 0.9% 1000ML 1,000 ML IV SCH ×3 (05:43→17:03)
[2018-05-04] MEDS ORDERED: HEPARIN SOD 5,000 UNIT/0.5 ML VIAL SQ SCH (06:00)
[2018-05-04] MEDS ORDERED: DEXAMETHASONE SOD PHOSPHATE 4 MG in SYRINGE 0 ML IV STA (06:11)
--- NOTE | 2018-05-04 06:58 | Ultrasound Report ---
US venous doppler LE LT CLINICAL HISTORY: Left leg swelling COMPARISON STUDY: No previous studies for comparison. FINDINGS: Real-time and color flow Doppler imaging were performed. Flow was seen within the femoral, popliteal and calf veins with no intraluminal thrombus demonstrated. The saphenous vein is patent. IMPRESSION: No evidence of left lower extremity DVT. Electronically signed by: Jayesh Hamilton M.D. 05/04/2018 6:57 AM
[2018-05-04] MEDS: INSULIN ASPART 100 UNITS/ML 3 ML PEN SC SCH ×4 (07:49→21:07)
[2018-05-04] MEDS: SODIUM BICARBONATE 8.4% 150 MEQ in DEXTROSE 5% 1,000 ML IV SCH (07:51)
[2018-05-04] MEDS ORDERED: INSULIN GLARGINE SOLOSTAR 100 UNITS/ML 3 ML PEN SC SCH ×2 (09:00)
[2018-05-04] MEDS ORDERED: CEFEPIME CONSULT ACTIVE PRN (09:00)
--- NOTE | 2018-05-04 09:34 | Pharmacy Report ---
Pharmacy Abx Initial Consult - Date of Service May 04, 2018 - Pharmacy Dosing Scope Date of Consult: 05/04/18 Consultation requested by: Dr. Aguilar Pharmacy is consulted to initiate Vancomycin and Cefepime IV dosing therapy, order appropriate labs and adjust drug dose/frequency. - Subjective The patient is a 68 year old F admitted on 05/03/18 14:34. - Objective Height: 5 ft 7.99 in Weight: 136.9 kg Vital Signs (Past 12hrs): Vital Signs Temp Pulse Pulse Resp BP BP Pulse Ox 05/04/18 06:36 93/58 L 05/04/18 06:04 88/49 L 05/04/18 05:26 99/47 L 05/04/18 03:24 38.5 C H 101 H 24 84/44 L 76/51 L 90 05/04/18 00:05 37.1 C 99 H 24 127/97 96 05/03/18 23:47 99 H Lab Results (24hrs): Laboratory Tests (24 Hours) 05/04/18 05/04/18 05/03/18 04:37 04:37 20:41 WBC 4.26 L Neut # (Auto) 3.27 Creatinine 5.26 H* D 6.81 H* D Est Cr Clr Drug Dosing 15.8 12.2 Total Creatine Kinase 848 H 05/03/18 05/03/18 05/03/18 15:08 11:34 11:34 WBC 8.93 Neut # (Auto) 7.85 H Creatinine 7.82 H* D 8.71 H* Est Cr Clr Drug Dosing 10.6 Not Reportable Total Creatine Kinase Micro Results: 05/04/18 04:45 Blood Culture - Pending Blood 05/04/18 04:37 Blood Culture - Pending Blood 05/03/18 22:20 Urine Culture - Pending Urine,Clean Catch 05/03/18 22:20 Urine Culture - Pending Urine,Straight Cath - Risk Factors for Resistance * 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 - Assessment & Plan Assessment 68 year old F with h/o COPD and polypharmacy admitted from the ED with acute renal failure (SCr 8.7 >> 5.3, baseline ~1). Urine and blood cultures pending UA +high counts of WBCs and leuk crys, some bacteria. Over 4L of urine drained from [place]. Plan Vancomycin and Cefepime for treatment of complicated UTI. Vancomycin IV * Estimated PK Parameters: Vd 0.7 L/kg, Vinicio 0.0175 hr-1, t1/2 ~40hr * Loading dose: 2000 mg (14 mg/kg) * Goal trough level : 15 to 20 mcg/mL * Due to prolonged estimated 1/2 life, it is likely that the patient will not need another dose of Vancomycin today. Will plan to order a random level with AM labs tomorrow and redose if warranted. However, if patient's renal function improves significantly over the next 8-12 hours, will reassess. * Trough/Random level ordered for 05/05/18 Cefepime * Target dose: 2gm IV Q12h * For CrCl 11-29 mL/min give 1gm IV Q24h * Anticipate dose adjusts will need to be made regularly as renal function improves. Pharmacy will continue to follow and will adjust dose/frequency as necessary. Thank you.
[2018-05-04 12:32] LABS: BUN Creatinine Ratio 29.3 (10-20); Blood Urea Nitrogen 109 mg/dl (7-18); Calcium 8.6 mg/dl (8.5-10.1); Carbon Dioxide 23 mmol/L (21-32); Chloride 101 mmol/L (98-107); Creatinine Clr Calc Pharmacy 21.9 ml/min; Est GFR (African American) 13.9; Glucose 154 mg/dl (70-99); Potassium 4.2 mmol/L (3.5-5.1); Sodium 137 mmol/L (136-145)
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
[2018-05-04 12:37] LABS: Troponin I < 0.015 ng/ml (0-0.045)
--- NOTE | 2018-05-04 13:39 | Pharmacy Report ---
Pharmacy Glycemic Short Note 2 - Date of Service May 04, 2018 - Glycemic Short BSG Results (Last 24 hours): 05/03/18 05/03/18 05/03/18 15:08 18:35 20:41 Glucose 90 150 H POC Glucose 130 H 05/03/18 05/04/18 05/04/18 20:45 04:15 04:37 Glucose 189 H POC Glucose 155 H 208 H 05/04/18 05/04/18 05/04/18 07:26 11:09 11:41 Glucose 154 H POC Glucose 191 H 163 H OUTPATIENT ANTIDIABETIC REGIMEN: * Toujeo 120 75 units SQ BID * NovoLog 15-25 units four times daily * Total daily dose ~ 210-250 units/day ASSESSMENT: * 68yo T2DM female maintained on large outpatient doses of insulin with near- adequate control. * A1c = 8.9% which is above goal of about 7-8%, however, this is a marked improvement from July 2017 when A1c was 11.8% * Concern for possible hypoglycemia with ARF and large outpatient doses may be to cover uncontrolled CHO intake as an outpatient * Renal impairment leads to pharmacodynamic changes which increase insulin sensitivity * BSGs seem to be trending downwards today. Will change Lantus dosing to dosing per scale to prevent hypoglycemia PLAN FOR INPATIENT GLYCEMIC CONTROL: * Basal insulin * Lantus SQ BID - dosing based on BSG * BSG below 140 mg/dl --> 55 units * BSG 140-180 mg/dl --> 65 units * BSG above 180 mg/dl --> 75 units (this is outpatient dosing) * Bolus insulin * NovoLog per scale ACHS or Q6hrs while NPO * Goal Range: Low 120 mg/dL - High 150 mg/dL * Correction Factor: 10 mg/dL/unit * Nutritional / Prandial insulin per carb ratio of 1 unit per 3 grams CHO consumed
--- NOTE | 2018-05-04 14:45 | Progress Note ---
DATE: 05/04/2018 SUBJECTIVE: Overnight, patient has had remarkable improvement. Her mental status seems better. She is awake, alert and oriented. Urine output is very high and renal labs have improved very fast. PHYSICAL EXAMINATION: VITAL SIGNS: Blood pressure 110/54, pulse rate 86, 97% on room air. HEENT: Mucous membrane moist. NECK: Supple. No jugular venous distention. CHEST: Bilaterally clear to auscultation. CARDIOVASCULAR: S1 and S2, regular. ABDOMEN: Soft, nontender, obese. EXTREMITIES: Shows 1+ edema, but related with obesity. LABORATORY TESTS: Reviewed in detail. This morning labs show remarkable improvement with a BUN now down to 109. Creatinine is down to 3.7. Sodium 137, potassium 4.2, chloride 101, bicarbonate 23. Hemoglobin is 9.4, platelet count 124. ASSESSMENT AND PLAN: A 68-year-old female with severe acute renal failure. 1. Acute renal failure. It appears based on the rapid rate of correction etiology was predominantly prerenal. Although it is quite remarkable how bad the renal labs got and how fast they are improving. But she is also having remarkably good urine output. So I believe she will not be any further problem. Continue normal saline at 100 mL per hour. On her initial urinalysis, she did have some blood and protein. So we do like to repeat the UA to see whether she still has hematuria and proteinuria. Renal imaging has already been done and does not have hydronephrosis. Labs can be done once a day. [facility]
--- NOTE | 2018-05-04 14:53 | Hospitalist Progress Note ---
Date of Service May 04, 2018 Assessment & Plan (1) Acute renal failure: Mostly related to dehydration Creatinine on admssion 8.7 (baseline ~1 in May 12) Creatine improved 3.7 after received adequate fluid CT abd/pelvis showed no significant abnormality identified within the abdomen or pelvis. Nephrology on board Case discussed with nephrology IVF changed from bicarb to NSS at 100cc Avoid nephrotoxic agents Lisinopril and furosemide on hold Continue monitor BMP (2) Sepsis: Developed fever with Temp 38.5, tachycardia and hypotension with SBP in the 70's Elevated procalcitonin Urine cx positive for Ecoli Blood cx pending Starting on cefepime and Vanco Received bolus NSS (3) UTI (urinary tract infection): Urine cx grew Ecoli On IV cefepime Follow up urine sensitivity (4) Hypotension: Due to sepsis /dehydration Received IVF bolus BP improves Continue NS at 100ml (5) Hyperkalemia: K on admission 6.3. Received Kayexelate, D50 and insulin in ED K today 4.2 Continue monitor electrolytes (6) Chest pain: Atypical presentation with vague complaint of chest pain, abdominal pain and back pain EKG without acute ST changes Troponin x3 negative Continue monitor in tele ECHO pending (7) Acute metabolic encephalopathy: Due to DAVONTE in the setting of polypharmacy Admits to taking more muscle relaxants (Flexeril, Skelatin) and seroquel than prescribed CT head showed no acute intracranial abnormality Benzo and other antipsychotics med on hold Mental status improves (8) Polypharmacy: History of altered state due to overtaking prescribed medications Received excessive amount of Benzo in Nov On Klonopin/Lyrica/Seroquel/Pramipexole/ cyclobenzaprine/Metaxalone/duloxetine that can alter mental status Will plan to taper on some of these med (9) Hypertension: BP dropped and Bolus NS given Continue holding lisinopril due to DAVONTE and hypotension (10) DM type 2 (diabetes mellitus, type 2): Most recent a1c of 11.8 in July 2017 Repeat a1c pending Monitor BS Hold home meds On SSI while in-patient (11) History of opioid abuse: Utox negative for opioids (12) Anxiety: (13) Depression: Psych on board Ok to continue to hold klonopin for now in the setting of DAVONTE Recommended to start at a low dose of 0.25 mg BID if develops any sign/symptoms of withdrawn Seroquel can start tomorrow at 100mg if her mental status improves Continue monitor DVT Ppx: SCDs Code status: FULL Disposition Monitor in tele Subjective Pt was seen and examined Lying in bed with no distress Pt said that she feels better today She said that early today she had some hallucination She said that she saw her daughter sitting in the room by the wall She said that she had 2 episodes of diarrhea today complaint of back pain radiating across her abdomen Denies any chest pain, palpitation, dizziness and SOB Physical Exam 2 Vital Signs (Past 24 Hours): Last Vital Signs Temp 36.6 C 05/04/18 12:03 Pulse 72 05/04/18 12:03 Resp 16 05/04/18 12:03 BP 145/57 H 05/04/18 12:03 Pulse Ox 97 05/04/18 12:03 Physical Exam: General- No acute distress Head- atraumatic Eyes- PERRL, EOMI, ENT- oropharynx clear Neck- supple, no JVD Lungs- Diminish BS Heart- regular rhythm; no murmur Abdomen- normal bowel sounds, +tender with palpation, obese Extremities- no calf tenderness, +edema Neuro- alert, oriented, PERRL, EOMI; no facial palsy; no dysarthria Skin- warm & dry _ (1) Acute renal failure Acute renal failure type: unspecified Qualified Code(s): N17.9 - Acute kidney failure, unspecified
[2018-05-04 15:53] LABS: Appearance Urine Clear (Clear); Bacteria Urine Automated Negative (Negative); Bilirubin Urine Negative (Negative); Color Urine Yellow; Glucose Urine UA Negative (Negative); Ketones Urine Negative (Negative); Leukocyte Esterase Urine 3+ (Negative); Nitrite Urine Negative (Negative); Protein Urine Trace (Negative); Specific Gravity Urine 1.011 (1.000-1.030); Urobilinogen Urine Negative (Negative); WBC Urine Automated >30 /hpf (0-5); pH Urine 5.5 (4.5-7.5)
[2018-05-04] MEDS: ACETAMINOPHEN 325 MG TAB PO PRN (17:29)
[2018-05-04] MEDS ORDERED: CEFEPIME 1,000 MG in SYRINGE 0 ML IV SCH (20:00)
[2018-05-04] MEDS ORDERED: CEFEPIME 500 MG in SYRINGE 0 ML IV SCH (20:00)
[2018-05-04] MEDS ORDERED: XOPENEX/ATROVENT 1.25mg/0.5MG NEB COMBO NEB PRN (20:13)
[2018-05-04] MEDS ORDERED: XOPENEX/ATROVENT 1.25mg/0.5MG NEB COMBO NEB STA (20:14)
[2018-05-04] MEDS ORDERED: LEVALBUTEROL 1.25MG/0.5ML NEB INH PRN (20:15)
[2018-05-04] MEDS ORDERED: IPRATROPIUM BROMIDE NEB SOLN 0.02% 2.5 ML VIAL INH PRN (20:15)
[2018-05-04] MEDS ORDERED: IPRATROPIUM BROMIDE NEB SOLN 0.02% 2.5 ML VIAL INH STA (20:35)
[2018-05-04] MEDS ORDERED: LEVALBUTEROL 1.25MG/0.5ML NEB INH STA (20:35)
--- NOTE | 2018-05-04 20:40 | XRay Report ---
XR chest 1V portable CLINICAL HISTORY: Shortness of breath COMPARISON STUDY: 05/03/2018 FINDINGS: There is a poor inspiration. The heart is borderline enlarged. There is stable hilar promin ence. There is stable interstitial thickening. There is no lobar consolidation. There are no signific ant pleural effusions.[ IMPRESSION: 1. Low lung volumes 2. Stable hilar fullness 3. No evidence of acute parenchymal consolidation Electronically signed by: Jayesh Hamilton M.D. 05/04/2018 8:38 PM
[2018-05-04] MEDS ORDERED: PIPERACILL/TAZOBAC CONSULT ACTIVE PRN (20:45)
--- NOTE | 2018-05-04 20:46 | Hospitalist Progress Note ---
Date of Service May 04, 2018 Subjective Patient complaning of wheezing episodes asking for inhaler. Coughing out yellow sputum as per patient. Good oxygenation as per RN although notable expiratory wheezes appreciated. CXR interstitial infiltrates AP Aspiration pneumonitis hx admission for decreased sensorium. Change current IV Vanco, Cefepime antibiotics to Zosyn Solu-Medrol, nebs for bronchospasm Will relay to AM provider. Physical Exam 2 Vital Signs (Past 24 Hours): Last Vital Signs Temp 36.7 C 05/04/18 19:28 Pulse 83 05/04/18 19:28 Resp 22 05/04/18 19:28 BP 104/59 L 05/04/18 19:28 Pulse Ox 92 05/04/18 19:28
[2018-05-04] MEDS ORDERED: methylPREDNISolone 20 MG in SYRINGE 0 ML IV ONE (21:00)
[2018-05-04] MEDS: INSULIN GLARGINE SOLOSTAR 100 UNITS/ML 3 ML PEN SC SCH (21:13)
[2018-05-04] MEDS: PIPERACILLIN/TAZOBACTAM 4.5 GM in DEXTROSE 5% 100 ML IV SCH (22:12)
[2018-05-05] MEDS ORDERED: PIPERACILLIN/TAZOBACTAM 4.5 GM in DEXTROSE 5% 100 ML IV SCH (05:00)
[2018-05-05] MEDS: ACETAMINOPHEN 325 MG TAB PO PRN (05:10)
[2018-05-05] MEDS: PIPERACILLIN/TAZOBACTAM 4.5 GM in DEXTROSE 5% 100 ML IV SCH ×3 (05:10→21:39)
[2018-05-05] MEDS: SODIUM CHLORIDE 0.9% 1000ML 1,000 ML IV SCH ×2 (06:06→18:58)
[2018-05-05 06:19] LABS: Estimated Average Glucose 163 mg/dl
[2018-05-05 06:54] LABS: BUN Creatinine Ratio 35.2 (10-20); Calcium 8.7 mg/dl (8.5-10.1); Creatinine Clr Calc Pharmacy 39.8 ml/min; Est GFR (African American) 28.7; Est GFR (Non-African American) 24.8; Potassium 3.6 mmol/L (3.5-5.1)
--- NOTE | 2018-05-05 08:19 | Progress Note ---
DATE: 05/03/2018 REASON FOR CONSULT: Acute renal failure and hyperkalemia. HISTORY OF PRESENT ILLNESS: The patient is a 68-year-old female with past medical history of anxiety, depression, history of opiate dependence, diabetes, hypertension, asthma, chronic back pain and multiple other medical problems, presented to the hospital with altered mental status and chest pain/shortness of breath for 2 days. The patient is a horrible historian due to altered state and psychiatric problems. So history was mainly constructed from the H and P and the records available. Blood work done in the Emergency Department was very abnormal with acute renal failure. Sodium was 127, potassium was 6.3, carbon dioxide/bicarb was 19, anion gap was 16, BUN 134, creatinine 8.71, glucose 160, lactic 0.8, phosphorus 8.9. CT scan already done and does not show hydronephrosis. She is making urine and has a Schaefer catheter. Vital signs are acceptable, 95% on room air and blood pressure most recently is 111/66. She has made 1350 mL of urine already so far. There is a suspicion that patient might have taken multiple medications more than she was supposed to. She denies intentional overdose or suicidal attempt. She has been admitted for altered mental status in the setting of polypharmacy, prescription medication abuse in the past also. HOME MEDICATIONS: List was reviewed in detail. PAST MEDICAL AND SURGICAL HISTORY: Includes hypertension, anxiety, dyslipidemia, osteoporosis, irritable bowel syndrome, type 2 diabetes, neuropathy, chronic venous insufficiency, gastroesophageal reflux disease, degenerative joint disease, depression, panic disorder. PAST SURGICAL HISTORY: Hysterectomy, colonoscopy, cholecystectomy, knee surgery. SOCIAL HISTORY: Reviewed. No smoking. ALLERGIES: List is very extensive and was reviewed in detail. PHYSICAL EXAMINATION: GENERAL: Middle-aged female who is obese. She is awake and alert, but her talk does not make much sense. VITAL SIGNS: Stable with a blood pressure of 110 systolic/60 diastolic, pulse rate is 90, pulse oximetry 95% on room air. HEENT: Mucous membrane is moist. NECK: Supple. No jugular venous distention. CHEST: Bilateral clear to auscultation. CARDIOVASCULAR: S1, S2 regular. ABDOMEN: Soft, nontender, obese. EXTREMITIES: Shows 1+ edema bilaterally but mostly related with obesity. LABORATORY DATA: Laboratory test was reviewed in detailed. CT scan of her abdomen shows no hydronephrosis. Sodium 127, potassium 6.3, bicarbonate 19, creatinine 8.71, BUN 134. Hemoglobin 10.9, platelet count 178. WBC count 8.93. Urine test, not available. ASSESSMENT AND PLAN: A 68-year-old female with severe acute renal failure at this time and associated hyperkalemia as well as metabolic acidosis. The etiology of acute renal failure is hard to pinpoint given very sketchy history, but we still need to do multiple tests including urinalysis, urine electrolytes for further clarification. She does not appear to be severely volume depleted at least based on the exam but for the time being, I would continue with IV fluid to help with the hyperkalemia management. Continue with D5 water with 3 amps of sodium bicarbonate and we will give that at 100 mL per hour. She is making good amount of urine and has already made 1350 mL, so hopefully we should be able to manage her renal failure without dialysis, but that will be evident in the next 24-48 hours. Case was discussed with primary service.
[2018-05-05] MEDS: INSULIN ASPART 100 UNITS/ML 3 ML PEN SC SCH ×4 (08:49→21:37)
--- NOTE | 2018-05-05 09:00 | Hospitalist Progress Note ---
Date of Service May 05, 2018 Assessment & Plan (1) Acute renal failure: Mostly related to dehydration Creatinine on admission 8.7 (baseline ~1 in May 12) Creatinine improved 2.04 after received adequate fluid CT abd/pelvis showed no significant abnormality identified within the abdomen or pelvis. Nephrology on board Case discussed with nephrology recommended to continue IVF @ 75ml Will monitor closely for sign of overload Avoid nephrotoxic agents Lisinopril and furosemide on hold Continue monitor BMP (2) Sepsis: Developed fever with Temp 38.5, tachycardia and hypotension with SBP in the 70's Elevated procalcitonin Urine cx positive for Ecoli Blood cx no growth Vanco d/c Cefepime was changed to Zosyn to cover for any aspiration PNA Stable (3) UTI (urinary tract infection): Urine cx grew Ecoli Cefepime changed to Zosyn (4) Hypotension: Due to sepsis /dehydration Received IVF bolus BP improves Continue NS at 75ml (5) Hyperkalemia: K on admission 6.3. Received Kayexelate, D50 and insulin in ED K today 3.6 Continue monitor electrolytes (6) Chest pain: Atypical presentation with vague complaint of chest pain, abdominal pain and back pain EKG without acute ST changes Troponin x3 negative Continue monitor in tele ECHO pending (7) Acute metabolic encephalopathy: Due to DAVONTE in the setting of polypharmacy Admits to taking more muscle relaxants (Flexeril, Skelatin) and seroquel than prescribed CT head showed no acute intracranial abnormality Benzo and other antipsychotics med on hold has been having hallucination (8) Polypharmacy: History of altered state due to overtaking prescribed medications Received excessive amount of Benzo in Nov On Klonopin/Lyrica/Seroquel/Pramipexole/ cyclobenzaprine/Metaxalone/duloxetine that can alter mental status Will plan to taper on some of these med (9) Hypertension: BP dropped and Bolus NS was given Continue holding lisinopril due to DAVONTE and hypotension BP stable (10) DM type 2 (diabetes mellitus, type 2): Recent Hba1c 7.3 (05/04)g Monitor BS Hold home meds On SSI while in-patient Pharmacy on board for glycemic management (11) Morbid obesity: Counseling on weight loss Diet and exercise (12) History of opioid abuse: Utox negative for opioids (13) Anxiety: (14) Depression: Psych on board Ok to continue to hold klonopin for now in the setting of DAVONTE Recommended to start at a low dose of 0.25 mg BID if develops any sign/symptoms of withdrawn Seroquel can start tomorrow at 100mg if her mental status improves Continue monitor 05/05 Having hallucination and paranoid Will discuss with psych about restarting seroquel and when to resume the klonopin Continue monitor DVT Ppx: SCDs Code status: FULL Disposition Monitor in tele Subjective Pt was seen and examined. Lying in bed with no distress. Pt is having hallucination She said that last night there were men standing at the window watching her her. She said that because of that she did not sleep last night. Pt said that her nurse was talking bad about her last night Last night she was coughing and wheezing She had a neb treatment that helped Currently denies any chest pain, palpitation, dizziness and SOB Physical Exam 2 Vital Signs (Past 24 Hours): Last Vital Signs Temp 37.1 C 05/05/18 06:32 Pulse 82 05/05/18 06:32 Resp 22 05/05/18 06:32 BP 117/61 05/05/18 06:32 Pulse Ox 94 05/05/18 06:32 Physical Exam: General- No acute distress Head- atraumatic Eyes- PERRL, EOMI, ENT- oropharynx clear Neck- supple, no JVD Lungs- Diminish BS Heart- regular rhythm; no murmur Abdomen- normal bowel sounds, +tender with palpation, obese Extremities- no calf tenderness, +edema Neuro- alert, oriented, PERRL, EOMI; no facial palsy; no dysarthria Skin- warm & dry _ (1) Acute renal failure Acute renal failure type: unspecified Qualified Code(s): N17.9 - Acute kidney failure, unspecified
[2018-05-05] MEDS: INSULIN GLARGINE SOLOSTAR 100 UNITS/ML 3 ML PEN SC SCH ×2 (10:02→21:37)
--- NOTE | 2018-05-05 10:51 | Clinical Documentation Query ---
QUERY [address] MOREIRA, Please Document Present on Admission Status for Sepsis The diagnosis of sepsis is not documented in the H/P. For proper coding of this diagnosis, please include the following information with the diagnosis of sepsis: ( ) Sepsis, POA ( x ) Sepsis, not POA QUERY 2 OF 2 In your clinical opinion is this patient being managed for: ( x) Morbid obesity ( ) Not Agree ( ) Other explanation of clinical findings (No explanation is considered a No Response) ( ) Unable to determine ( ) Need to Discuss (Phone CDS or qliq) (No discussion is considered a No Response) BMI: A significantly high (>40) or significantly low (<19) BMI will impact the severity of illness and risk of mortality of your patient. However, the physician must document a correlating diagnosis in the medical record. Please clarify and document your clinical opinion in the progress notes and discharge summary. Terms such as "probable", "suspected", "likely", "questionable", "possible", or "still to be ruled out" are acceptable. IF IN AGREEMENT, YOU MUST DOCUMENT ABOVE DIAGNOSTIC STATEMENT IN DAILY PROGRESS NOTES AND DISCHARGE SUMMARY. This document is not part of the patient' s record. Thank You, Jerrica Portillo RN [phone] NICH[facility] NO[facility]ORIAL HOSPITALEmiliana
--- NOTE | 2018-05-05 10:55 | Progress Note ---
Date of Service May 05, 2018 Assessment & Plan (1) Acute metabolic encephalopathy: 05/04 - agreed with hold Klonopin, will take time to clear given creatinine. Reviewed with patient that she is at risk for a delayed withdrawal reaction and that generally 1.5 mg Klonopin total daily dose would be tapered. May benefit from Klonopin 0.25 mg BID acute dosing then taper if symptoms/signs of withdrawal, will defer at this time. given some of her symptoms, can't exclude an underlying bipolar component, ideally would restart Seroquel at lower dose of 100 mg tomorrow if MSE continues to improve. There is no evidence of agitation or need for acute inpatient psychiatric hospitalization. GRANT signed for outpatient provider and liaison nurse Ion Mcdaniels RN to speak with for collateral and safety plan around meds at home. 05/05 - Consider pursuing recommendations above, as A/V hallucinations and delusions reported regarding comments the patient heard from "nurses" may be consistent with withdrawal from clonazepam overdose. Orders entered to begin clonazepam 0.25mg BID and suggest taper to discontinuation over the course of her hospitalization. Would be appropriate to begin Seroquel as per recommendations above. Subjective Reports from primary team indicated patient has been hallucinating and did not sleep well last evening. Request for psychiatry to make recommendations regarding reports that patient seeing "men standing at the window watching her" and reported hearing "nurses" speaking badly of her last evening. Pt was seen by psychiatric liaison nurse and there is concern patient may be going through withdrawal following her overdose of clonazepam. Physical Exam 2 Vital Signs (Past 24 Hours): Last Vital Signs Temp 37.1 C 05/05/18 06:32 Pulse 82 05/05/18 06:32 Resp 22 05/05/18 06:32 BP 117/61 05/05/18 06:32 Pulse Ox 94 05/05/18 06:32
[2018-05-05] MEDS: clonazePAM 0.5 MG TAB PO SCH ×2 (11:38→20:03)
--- NOTE | 2018-05-05 14:28 | Pharmacy Report ---
Pharmacy Glycemic Short Note 2 - Date of Service May 05, 2018 - Glycemic Short BSG Results (Last 24 hours): 05/04/18 05/04/18 05/04/18 16:24 20:46 23:59 Glucose POC Glucose 117 H 110 H 205 H 05/05/18 05/05/18 05/05/18 05:52 07:33 11:40 Glucose 220 H POC Glucose 236 H 190 H OUTPATIENT ANTIDIABETIC REGIMEN: * Toujeo 120 75 units SQ BID * NovoLog 15-25 units four times daily * Total daily dose ~ 210-250 units/day ASSESSMENT: 05/05 * SCr decrease to 2.04 * Received 199 units of insulin yesterday * 130 units of basal * 69 units of prandial * Fasting was elevated this morning- received lowest dose from scale, patient also received 1x dose of SM- will adjust * Post prandial improved- will continue current bolus parameters 05/04 * 68yo T2DM female maintained on large outpatient doses of insulin with near- adequate control. * A1c = 8.9% which is above goal of about 7-8%, however, this is a marked improvement from July 2017 when A1c was 11.8% * Concern for possible hypoglycemia with ARF and large outpatient doses may be to cover uncontrolled CHO intake as an outpatient * Renal impairment leads to pharmacodynamic changes which increase insulin sensitivity * BSGs seem to be trending downwards today. Will change Lantus dosing to dosing per scale to prevent hypoglycemia PLAN FOR INPATIENT GLYCEMIC CONTROL: * Basal insulin * Lantus SQ BID - dosing based on BSG * BSG less than or equal to 180 mg/dl --> 65 units * BSG above 180 mg/dl --> 75 units (this is outpatient dosing) * Bolus insulin * NovoLog per scale ACHS or Q6hrs while NPO * Goal Range: Low 120 mg/dL - High 150 mg/dL * Correction Factor: 15 mg/dL/unit * Nutritional / Prandial insulin per carb ratio of 1 unit per 3 grams CHO consumed
--- NOTE | 2018-05-05 16:59 | Nephrology Progress Note ---
Date of Service May 05, 2018 Assessment & Plan (1) Acute renal failure: severe prerenal DAVONTE w/ continued improvement. baseline creatinine earlier this year in [facility] labs 1.2-1.4 -cont NS at 75 mL /hr -- electrolytes show this is acceptable ivf currently -daily bmp -cont strict I/O -cont to renally dose meds -no need at this time for renal diet Present on Admission?: Yes (2) Hyperkalemia: hyperkalemia and metabolic acidosis resolved w/ aggressive hydration, other care since admission Present on Admission?: Yes (3) Acute metabolic encephalopathy: per primary service; psych also following Present on Admission?: Yes (4) UTI (urinary tract infection): had been on broad spectrum abtx covering this; bld cxs neg Present on Admission?: Yes Subjective seen on rounds thsi am 0745; difficult to get full ros from pt >> some confusion -- for example states had F ON but was yesterday AM not this AM. eating well. no n/v/d/c. no chest pain; does not feel tachycardia. no flank pain; tolerating fernandes. no rash; no focal numbness/weakness that is new; no sob or cough; no bleeding that she reports; abtx coverage broadened ON w/ concern for aspiration pna component/ more wheezing Physical Exam 2 Vital Signs (Past 24 Hours): Last Vital Signs Temp 36.7 C 05/05/18 16:16 Pulse 91 H 05/05/18 16:16 Resp 18 05/05/18 16:16 BP 144/81 H 05/05/18 16:16 Pulse Ox 94 05/05/18 16:16 Constitutional: well developed and well nourished 02 off while she eats; alert, interactive, some confusion about time Eyes: EOM intact bilaterally ENMT: Ears: no external ear abnormality Nose: no external nose abnormality Mouth: + dry oral mucous membranes Neck: no nuchal rigidity Respiratory: normal respiratory effort Auscultation: + diminished lung sounds Cardiovascular: Rate/Rhythm: + tachycardic (regularly spaced beatsin 90s) Extremities: + edema (pedal) Gastrointestinal (Abdomen): Inspection/Auscultation: normal bowel sounds Percussion/Palpation: abdomen soft; abdomen nontender Musculoskeletal: Extremities: strength 5/5 throughout and + abnormal strength (large effort to roll partway in bed side to side but rolls unassisted) Skin: no rashes, warm and dry Neurologic: pastrana but mild / moderate generalized weakness , fluent speech, no tremor Psychiatric: Orientation: alert and oriented to place Eye Contact: + fair eye contact Affect: + anxious affect some confusion/unreliable hx Results & Data Laboratory Results reveiwed _ (1) Acute renal failure Acute renal failure type: unspecified Qualified Code(s): N17.9 - Acute kidney failure, unspecified (2) UTI (urinary tract infection) Encounter type: subsequent encounter
[2018-05-05] MEDS ORDERED: SODIUM CHLORIDE 0.9% 1000ML 1,000 ML IV SCH (17:00)
[2018-05-05] MEDS: QUETIAPINE FUMARATE 25 MG TABLET PO PRN (18:58)
[2018-05-05] MEDS: QUETIAPINE FUMARATE 100 MG TABLET PO SCH (20:07)
[2018-05-06] MEDS: QUETIAPINE FUMARATE 25 MG TABLET PO PRN ×2 (00:38→02:21)
[2018-05-06] MEDS ORDERED: HALOPERIDOL 5 MG TAB PO ONE (04:46)
[2018-05-06] MEDS: PIPERACILLIN/TAZOBACTAM 4.5 GM in DEXTROSE 5% 100 ML IV SCH ×3 (06:07→21:42)
[2018-05-06 06:16] LABS: Hematocrit (blood only) 34.2 % (37-47); Mean Corpuscular Hgb Conc 32.2 g/dL (32-36); Mean Corpuscular Volume 88.4 fL (80-100); Mean Platelet Volume 11.1 fL (7.4-10.4); Platelet Count 149 K/uL (130-400); RDW Coefficient of Variation 18.4 % (11.5-14.5); RDW Standard Deviation 59.1 fL (36.4-46.3); Red Blood Count 3.87 M/uL (4.2-5.4); White Blood Count 6.05 K/uL (4.8-10.8)
[2018-05-06 07:00] LABS: BUN Creatinine Ratio 30.5 (10-20); Creatinine Clr Calc Pharmacy 62.4 ml/min; Est GFR (African American) 49.5; Est GFR (Non-African American) 42.7; Potassium 3.3 mmol/L (3.5-5.1)
[2018-05-06] MEDS: clonazePAM 0.5 MG TAB PO SCH ×2 (07:52→20:33)
[2018-05-06] MEDS: INSULIN ASPART 100 UNITS/ML 3 ML PEN SC SCH ×4 (07:54→21:39)
[2018-05-06] MEDS: INSULIN GLARGINE SOLOSTAR 100 UNITS/ML 3 ML PEN SC SCH ×2 (07:56→21:41)
--- NOTE | 2018-05-06 09:39 | Nephrology Progress Note ---
Date of Service May 06, 2018 Assessment & Plan (1) Acute renal failure: severe prerenal DAVONTE w/ continued improvement and now resolved/ back to baseline w/ creat today 1.3. baseline creatinine earlier this year in [facility] labs 1.2-1.4 -for another day at least, would continue IVF if tolerating but w/ hyperchloremia and lower K, will change to normosol and turn off hs -daily bmp -cont strict I/O -no need at this time for renal diet (2) Acute metabolic encephalopathy: per primary service; psych also following; c/b hx of major depressive disorder w/ psychotic ff, panic disorder w/ agoraphobia, PTSD, unspecified neurocognitive disorder per psych note from 2017 (3) UTI (urinary tract infection): had been on broad spectrum abtx covering this; bld cxs neg; will remove fernandes (4) Electrolyte disorder: see fluid changes under renal failure above to address hyperchloremia, hypokalemia Present on Admission?: Yes Subjective pt w/ sitter today; again states had F ON; c/o stable chronic L knee pain / L leg swelling. no n/v/d/c. denies palpitations or chest pain; no voiding concerns; still w/ fernandes. denie sfocal weakness - states ambulates to commode for bm w/o issue. denies rash; denies sob or cough or bleeding Physical Exam 2 Vital Signs (Past 24 Hours): Last Vital Signs Temp 36.7 C 05/06/18 06:20 Pulse 98 H 05/06/18 07:20 Resp 18 05/06/18 06:20 BP 140/79 05/06/18 06:20 Pulse Ox 97 05/06/18 06:20 Constitutional: well developed and well nourished sitting in chair on RA going through her purse Eyes: EOM intact bilaterally ENMT: Ears: no external ear abnormality Nose: no external nose abnormality Mouth: + dry oral mucous membranes Neck: no nuchal rigidity Respiratory: normal respiratory effort Auscultation: + diminished lung sounds Cardiovascular: Rate/Rhythm: + tachycardic (regularly spaced beats again in 90s) Extremities: + edema (pedal/ trace L ankle) Gastrointestinal (Abdomen): Inspection/Auscultation: normal bowel sounds Percussion/Palpation: abdomen soft; abdomen nontender Musculoskeletal: Extremities: strength 5/5 throughout and + abnormal strength (large effort to roll partway in bed side to side but rolls unassisted) Skin: no rashes, warm and dry Psychiatric: Orientation: alert and oriented to place Eye Contact: + poor eye contact Affect: + anxious affect Judgement: + limited judgement Genitourinary: dena present Results & Data Laboratory Results Abnormal lab results 05/05/18 05/05/18 05/05/18 Range/Units 11:40 16:18 20:39 RBC (4.2-5.4) M/uL Hgb (12.0-16.0) g/dL Hct (37-47) % RDW Std Deviation (36.4-46.3) fL RDW Coeff of Pérez (11.5-14.5) % MPV (7.4-10.4) fL Potassium (3.5-5.1) mmol/L Chloride (98-107) mmol/L BUN (7-18) mg/dl Creatinine (0.6-1.2) mg/dl BUN/Creatinine Ratio (10-20) POC Glucose 190 H 144 H 157 H (70-99) 05/06/18 05/06/18 Range/Units 06:04 06:04 RBC 3.87 L (4.2-5.4) M/uL Hgb 11.0 L (12.0-16.0) g/dL Hct 34.2 L (37-47) % RDW Std Deviation 59.1 H (36.4-46.3) fL RDW Coeff of Pérez 18.4 H (11.5-14.5) % MPV 11.1 H (7.4-10.4) fL Potassium 3.3 L (3.5-5.1) mmol/L Chloride 108 H (98-107) mmol/L BUN 40 H (7-18) mg/dl Creatinine 1.30 H D (0.6-1.2) mg/dl BUN/Creatinine Ratio 30.5 H (10-20) POC Glucose (70-99) Diagnostic Findings TTE 05/05 > basically unremarkable; impression / results reviewed _ (1) UTI (urinary tract infection) Encounter type: subsequent encounter Hematuria presence: Indwelling urinary catheter type: Urinary tract infection type: (2) Acute renal failure Acute renal failure type: unspecified Qualified Code(s): N17.9 - Acute kidney failure, unspecified
--- NOTE | 2018-05-06 10:34 | Hospitalist Progress Note ---
Date of Service May 06, 2018 Assessment & Plan (1) Acute renal failure: Mostly related to dehydration Creatinine on admission 8.7 (baseline ~1 in May 12) Creatinine improved 1.3 currently Continue IV fluids per nephrology CT abd/pelvis showed no significant abnormality identified within the abdomen or pelvis. Nephrology on board Will monitor closely for sign of overload Avoid nephrotoxic agents Lisinopril and furosemide on hold Continue monitor BMP (2) Sepsis: Developed fever with Temp 38.5, tachycardia and hypotension with SBP in the 70's Afebrile last 48 hours Elevated procalcitonin Urine cx positive for Ecoli Blood cx no growth Off vancomycin Cefepime was changed to Zosyn to cover for any aspiration PNA Stable (3) UTI (urinary tract infection): Urine cx grew Ecoli Cefepime changed to Zosyn (4) Hypotension: Due to sepsis /dehydration Resolved Received IVF bolus BP improved Continue IV fluids per nephrology (5) Hyperkalemia: K on admission 6.3. Received Kayexelate, D50 and insulin in ED K today 3.3 Continue monitor electrolytes (6) Chest pain: Atypical presentation with vague complaint of chest pain, abdominal pain and back pain EKG without acute ST changes Troponin x3 negative Continue monitor in tele ECHO pending (7) Acute metabolic encephalopathy: Due to DAVONTE in the setting of polypharmacy Admits to taking more muscle relaxants (Flexeril, Skelatin) and seroquel than prescribed CT head showed no acute intracranial abnormality Benzo and other antipsychotics med on hold has been having hallucination Required Haldol last night (8) Polypharmacy: History of altered state due to overtaking prescribed medications Received excessive amount of Benzo in Nov On Klonopin/Lyrica/Seroquel/Pramipexole/ cyclobenzaprine/Metaxalone/duloxetine that can alter mental status Will plan to taper on some of these med (9) Hypertension: BP dropped and Bolus NS was given Continue holding lisinopril due to DAVONTE and hypotension BP stable (10) DM type 2 (diabetes mellitus, type 2): Recent Hba1c 7.3 (05/04)g Monitor BS Hold home meds On SSI while in-patient Pharmacy on board for glycemic management (11) Morbid obesity: Counseling on weight loss Diet and exercise (12) History of opioid abuse: Utox negative for opioids (13) Anxiety: As above (14) Depression: Psych on board Ok to continue to hold klonopin for now in the setting of DAVONTE Recommended to start at a low dose of 0.25 mg BID if develops any sign/symptoms of withdrawn Seroquel started at 100mg Continue monitor had a 6 beat run of V. tach last night Having hallucination and paranoia Will discuss with psych about restarting seroquel and when to resume the klonopin Continue monitor DVT Ppx: SCDs Code status: FULL Disposition Monitor in tele Subjective Pt was seen and examined. She was sitting in a recliner. RN reports that she had to be sedated with Haldol last night. She said to me if you leave I am done. ROS-No Headache, No Visual Changes, No Fever, No Chills, No Neck Pain or Stiffness, No Chest Pain, No Palpitations, No SOB, No WILLIAM, No Cough, No Sputum, No Wheezing, No Abdominal Pain, No Diarrhea, No Hematemesis, No Hemoptysis, No Unexpected Weight Loss, No Flank pain, No Melena, No Hematochezia, No Frequency , No Urgency, No Burning, No Hematuria, No Rashes, No Diaphoresis. Appetite is Normal Physical Exam Gen-AAO x 3, NAD, Afebrile, very flat affect, obese Head-NCAT, EOMI, PERRLA, Anicteric Sclera, No Posterior Pharyngeal Erythema Neck-Supple, No JVD, No Thyromegaly, No Masses, No LAD, No Bruits Lungs-Clear to Auscultation Bilaterally, No Rales, No Rhonchi, No Wheezing, No Crepitus Chest-No S4, +S1, +S2, No S3, No Murmurs, No Rubs, No Gallops, No Ectopy Abdomen-Soft, Bowel Sounds Present, Non Tender, Non Distended, No Hepatomegaly, No Splenomegaly, No Palpable Masses, No Rebound, No Rigidity, No Guarding Musculoskeletal-Full Range of Motion Bilaterally, No CVAT Extremities-No Cyanosis, No Clubbing, No Edema Nuero-Cranial Nerves II-XII grossly intact, Motor WNL, DTRs WNL, Strength WNL, No Focal GUFoley catheter in place Psych-psychotic Physical Exam 2 Vital Signs (Past 24 Hours): Last Vital Signs Temp 36.7 C 05/06/18 06:20 Pulse 98 H 05/06/18 07:20 Resp 18 05/06/18 06:20 BP 140/79 05/06/18 06:20 Pulse Ox 97 05/06/18 06:20 Results & Data Laboratory Results Current Diagnoses Sepsis, unspecified organism (05/03/18) Type 2 diabetes mellitus without complications (05/03/18) Morbid (severe) obesity due to excess calories (05/03/18) Hyperkalemia (05/03/18) Major depressive disorder, single episode, unspecified (05/03/18) Anxiety disorder, unspecified (05/03/18) Metabolic encephalopathy (05/03/18) Essential (primary) hypertension (05/03/18) Hypotension, unspecified (05/03/18) Acute kidney failure, unspecified (05/03/18) Urinary tract infection, site not specified (05/03/18) Chest pain, unspecified (05/03/18) 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 (05/03/18) Personal history of other specified conditions (05/03/18) Allergies bee venom protein (honey bee) Allergy (Severe, Verified 05/03/18 13:39) ANAPHYLAXIS iodine Allergy (Severe, Verified 05/03/18 13:39) ANAPHYLAXIS aspartame Allergy (Unknown, Unverified 05/03/18 13:39) RASH clonazepam Allergy (Unknown, Unverified 05/03/18 13:39) ITCHING RASH colestipol Allergy (Unknown, Unverified 05/03/18 13:39) RASH diphenhydramine Allergy (Unknown, Unverified 05/03/18 13:39) UNKNOWN doxycycline Allergy (Unknown, Unverified 05/03/18 13:39) HIVES glimepiride Allergy (Unknown, Unverified 05/03/18 13:39) RASH glyburide Allergy (Unknown, Unverified 05/03/18 13:39) RASH hydroxyzine Allergy (Unknown, Unverified 05/03/18 13:39) MENTAL CONFUSION metformin Allergy (Unknown, Unverified 05/03/18 13:39) RASH pioglitazone Allergy (Unknown, Verified 05/03/18 13:39) RASH pseudoephedrine Allergy (Unknown, Unverified 05/03/18 13:39) JITTERINESS rosuvastatin Allergy (Unknown, Unverified 05/03/18 13:39) IRCHING RASH shellfish derived Allergy (Unknown, Unverified 05/03/18 13:39) SWELLING OF FACE AND MOUTH tramadol Allergy (Unknown, Unverified 05/03/18 13:39) NAUSE A VOMITING Height/Weight/Isolation Height 5 ft 7.9 in Weight 136.8 kg Isolation Type Contact Precautions Chemistry 05/04/18 05/05/18 05/06/18 11:41 05:52 06:04 Sodium 137 140 144 Potassium 4.2 3.6 3.3 L Chloride 101 105 108 H Carbon Dioxide 23 25 26 Anion Gap 13.0 H 10.0 10.0 BUN 109 H 72 H 40 H Creatinine 3.72 H D 2.04 H D 1.30 H D Glucose 154 H 220 H 84 Urinalysis 05/04/18 Unknown Urine Color Yellow Urine Appearance Clear Urine pH 5.5 Ur Specific [place] 1.011 Urine Protein Trace H Urine Glucose (UA) Negative Urine Ketones Negative Urine Blood 2+ H Urine Nitrite Negative Urine Bilirubin Negative Microbiology 05/03/18 22:20 Urine,Clean Catch Urine Culture - Final Escherichia coli 05/04/18 21:20 Sputum, Expectorated Gram Stain - Final 05/04/18 21:20 Sputum, Expectorated Sputum Culture - Final Light normal akiko. 05/03/18 22:20 Urine,Straight Cath Urine Culture - Final Escherichia coli 05/04/18 04:45 Blood Blood Culture - Preliminary No growth to date. 05/04/18 04:37 Blood Blood Culture - Preliminary No growth to date. _ (1) UTI (urinary tract infection) Encounter type: subsequent encounter Hematuria presence: Indwelling urinary catheter type: Urinary tract infection type: (2) Acute renal failure Acute renal failure type: unspecified Qualified Code(s): N17.9 - Acute kidney failure, unspecified
--- NOTE | 2018-05-06 13:08 | Pharmacy Report ---
Pharmacy Glycemic Short Note 2 - Date of Service May 06, 2018 - Glycemic Short BSG Results (Last 24 hours): 05/05/18 05/05/18 05/06/18 16:18 20:39 06:04 Glucose 84 POC Glucose 144 H 157 H OUTPATIENT ANTIDIABETIC REGIMEN: * Toujeo 120 75 units SQ BID * NovoLog 15-25 units four times daily * Total daily dose ~ 210-250 units/day ASSESSMENT: 05/06 * SCr continues to improve, 1.3 today * Received 163 units of insulin yesterday * 140 units of basal * 21 units of prandial * Fasting improved today- random level 84, POC 123, reduced lantus dose this AM with scale * Post prandial continue to be acceptable- no changes 05/05 * SCr decrease to 2.04 * Received 199 units of insulin yesterday * 130 units of basal * 69 units of prandial * Fasting was elevated this morning- received lowest dose from scale, patient also received 1x dose of SM- will adjust * Post prandial improved- will continue current bolus parameters 05/04 * 68yo T2DM female maintained on large outpatient doses of insulin with near- adequate control. * A1c = 8.9% which is above goal of about 7-8%, however, this is a marked improvement from July 2017 when A1c was 11.8% * Concern for possible hypoglycemia with ARF and large outpatient doses may be to cover uncontrolled CHO intake as an outpatient * Renal impairment leads to pharmacodynamic changes which increase insulin sensitivity * BSGs seem to be trending downwards today. Will change Lantus dosing to dosing per scale to prevent hypoglycemia PLAN FOR INPATIENT GLYCEMIC CONTROL: * Basal insulin * Lantus SQ BID - dosing based on BSG * BSG less than or equal to 180 mg/dl --> 65 units * BSG above 180 mg/dl --> 75 units (this is outpatient dosing) * Bolus insulin * NovoLog per scale ACHS or Q6hrs while NPO * Goal Range: Low 120 mg/dL - High 150 mg/dL * Correction Factor: 15 mg/dL/unit * Nutritional / Prandial insulin per carb ratio of 1 unit per 3 grams CHO consumed
[2018-05-06] MEDS ORDERED: NORMOSOL-R 1,000 ML IV SCH (18:15)
[2018-05-06] MEDS: QUETIAPINE FUMARATE 100 MG TABLET PO SCH ×2 (20:32→21:15)
[2018-05-06] MEDS ORDERED: HALOPERIDOL 1 MG TAB PO STA (20:45)
[2018-05-07] MEDS: ACETAMINOPHEN 325 MG TAB PO PRN ×2 (00:45→11:47)
[2018-05-07] MEDS: QUETIAPINE FUMARATE 25 MG TABLET PO PRN ×2 (00:46→15:42)
[2018-05-07 05:49] LABS: Hematocrit (blood only) 34.7 % (37-47); Hemoglobin 11.1 g/dL (12.0-16.0); Mean Corpuscular Volume 88.3 fL (80-100); Mean Platelet Volume 11.1 fL (7.4-10.4); Platelet Count 172 K/uL (130-400); RDW Standard Deviation 58.1 fL (36.4-46.3); Red Blood Count 3.93 M/uL (4.2-5.4); White Blood Count 7.76 K/uL (4.8-10.8)
[2018-05-07 06:14] LABS: Albumin Level 2.9 gm/dl (3.4-5.0); Calcium 8.4 mg/dl (8.5-10.1); Creatinine Clr Calc Pharmacy 58.8 ml/min; Est GFR (African American) 46.1; Est GFR (Non-African American) 39.7
[2018-05-07 06:17] LABS: Albumin Globulin Ratio 0.6 (0.9-2); Bilirubin,Total 0.5 mg/dl (0.1-1); Globulin 4.9 gm/dl (2.5-4.0); Total Protein 7.8 gm/dl (6.4-8.2)
[2018-05-07] MEDS: PIPERACILLIN/TAZOBACTAM 4.5 GM in DEXTROSE 5% 100 ML IV SCH ×2 (06:40→14:17)
[2018-05-07] MEDS ORDERED: POTASSIUM CHLORIDE 20 MEQ TABCR PO STA ×2 (06:48→07:12)
--- NOTE | 2018-05-07 06:49 | Nephrology Progress Note ---
Date of Service May 07, 2018 Assessment & Plan (1) Urinary retention with incomplete bladder emptying: new since fernandes removal last evening; ? relation to psych meds -repeat PVR this am -if no spontaneous void by noon, low threshold for straight cath Present on Admission?: No (2) Electrolyte disorder: ongoing, worsening hypokalemia > gave 40 mEq po now; started 20 mEq tid standing po; will recheck in am hyperchloremia has resolved volume status probably appropriate (3) UTI (urinary tract infection): remains on broad spectrum abtx Subjective pt w/ sitter again today; sleepless night; stable chronic low back and BL L>R knee pain; stable swelling; no n/v/d/c -- denies issues moving bowels. she states she is voiding well after fernandes removal but nurse states after fernandes removal 1999 yesterday but since then BM and no void; PVR this am 275; hospitalist aware. denies dyspnea or cough. poor appetite and some temp in high 37s. denies palpitations or chest pain; no focal weakness - states ambulates to commode for bm w/o issue. denies rash; no bleeding Physical Exam 2 Vital Signs (Past 24 Hours): Last Vital Signs Temp 37.6 C H 05/07/18 04:35 Pulse 106 H 05/07/18 04:35 Resp 18 05/07/18 04:35 BP 107/76 05/07/18 04:35 Pulse Ox 95 05/07/18 04:35 Constitutional: well developed and well nourished sitting up in chair on RA Eyes: EOM intact bilaterally ENMT: Ears: no external ear abnormality Nose: no external nose abnormality Mouth: + dry oral mucous membranes Neck: no nuchal rigidity Respiratory: normal respiratory effort Auscultation: + diminished lung sounds Cardiovascular: Rate/Rhythm: + tachycardic (regularly spaced beats again in 100s) Extremities: + edema (trace BLE) Gastrointestinal (Abdomen): Inspection/Auscultation: normal bowel sounds Percussion/Palpation: abdomen soft; abdomen nontender Musculoskeletal: Extremities: strength 5/5 throughout Skin: no rashes, warm and dry Psychiatric: Orientation: alert and oriented to place Eye Contact: + poor eye contact Affect: + anxious affect Judgement: + limited judgement Results & Data Laboratory Results Abnormal lab results 05/06/18 05/06/18 05/06/18 Range/Units 07:12 11:24 16:16 RBC (4.2-5.4) M/uL Hgb (12.0-16.0) g/dL Hct (37-47) % RDW Std Deviation (36.4-46.3) fL RDW Coeff of Pérez (11.5-14.5) % MPV (7.4-10.4) fL Potassium (3.5-5.1) mmol/L Anion Gap (3-11) BUN (7-18) mg/dl Creatinine (0.6-1.2) mg/dl BUN/Creatinine Ratio (10-20) POC Glucose 123 H 144 H 102 H (70-99) Calcium (8.5-10.1) mg/dl AST (15-37) U/L Albumin (3.4-5.0) gm/dl Globulin (2.5-4.0) gm/dl Albumin/Globulin Ratio (0.9-2) 05/06/18 05/07/18 05/07/18 Range/Units 21:24 05:33 05:33 RBC 3.93 L (4.2-5.4) M/uL Hgb 11.1 L (12.0-16.0) g/dL Hct 34.7 L (37-47) % RDW Std Deviation 58.1 H (36.4-46.3) fL RDW Coeff of Pérez 18.0 H (11.5-14.5) % MPV 11.1 H (7.4-10.4) fL Potassium 3.0 L (3.5-5.1) mmol/L Anion Gap 12.0 H (3-11) BUN 30 H (7-18) mg/dl Creatinine 1.38 H (0.6-1.2) mg/dl BUN/Creatinine Ratio 22.0 H (10-20) POC Glucose 117 H (70-99) Calcium 8.4 L (8.5-10.1) mg/dl AST 68 H (15-37) U/L Albumin 2.9 L (3.4-5.0) gm/dl Globulin 4.9 H (2.5-4.0) gm/dl Albumin/Globulin Ratio 0.6 L (0.9-2) Diagnostic Findings none new _ (1) UTI (urinary tract infection) Encounter type: subsequent encounter Hematuria presence: Indwelling urinary catheter type: Urinary tract infection type:
[2018-05-07] MEDS: clonazePAM 0.5 MG TAB PO SCH ×2 (08:04→20:55)
[2018-05-07] MEDS: INSULIN GLARGINE SOLOSTAR 100 UNITS/ML 3 ML PEN SC SCH (08:06)
[2018-05-07] MEDS: INSULIN ASPART 100 UNITS/ML 3 ML PEN SC SCH ×4 (08:06→21:30)
[2018-05-07] MEDS ORDERED: POTASSIUM CHLORIDE 20 MEQ TABCR PO SCH (09:00)
--- NOTE | 2018-05-07 09:38 | Hospitalist Progress Note ---
Date of Service May 07, 2018 Assessment & Plan (1) Acute renal failure: Mostly related to dehydration Creatinine on admission 8.7 (baseline ~1 in May 12) Creatinine 1.34 currently Replete potassium Continue IV fluids per nephrology CT abd/pelvis showed no significant abnormality identified within the abdomen or pelvis. Nephrology on board Will monitor closely for sign of overload Avoid nephrotoxic agents Lisinopril and furosemide on hold Continue monitor BMP (2) Sepsis: Status post fever with Temp 38.5, tachycardia and hypotension with SBP in the 70's Now afebrile Elevated procalcitonin Urine cx positive for Ecoli Blood cx no growth Off vancomycin On Zosyn to cover for any aspiration PNA Stable (3) UTI (urinary tract infection): Urine cx grew Ecoli On Zosyn (4) Hypotension: Due to sepsis /dehydration Resolved Received IVF bolus BP improved Continue IV fluids per nephrology (5) Hyperkalemia: K on admission 6.3. Received Kayexelate, D50 and insulin in ED K today 3.0 Patient on 40 mEq potassium twice daily and received 80 mEq this morning continue monitor electrolytes (6) Chest pain: Atypical presentation with vague complaint of chest pain, abdominal pain and back pain EKG without acute ST changes Troponin x3 negative Continue monitor in tele ECHO pending (7) Acute metabolic encephalopathy: Due to DAVONTE in the setting of polypharmacy Admits to taking more muscle relaxants (Flexeril, Skelatin) and seroquel than prescribed CT head showed no acute intracranial abnormality Benzo and other antipsychotics med on hold has been having hallucinations Required Haldol 12/9 pm (8) Polypharmacy: History of altered state due to overtaking prescribed medications Received excessive amount of Benzo in Nov On Klonopin/Lyrica/Seroquel/Pramipexole/ cyclobenzaprine/Metaxalone/duloxetine that can alter mental status Will plan to taper on some of these med (9) Hypertension: BP dropped and Bolus NS was given Continue holding lisinopril due to DAVONTE and hypotension BP stable (10) DM type 2 (diabetes mellitus, type 2): Recent Hba1c 7.3 (05/04)g Monitor BS Hold home meds On SSI while in-patient Pharmacy on board for glycemic management (11) Morbid obesity: Counseling on weight loss Diet and exercise (12) History of opioid abuse: Utox negative for opioids (13) Anxiety: As above (14) Depression: Psych on board Recommended to start at a low dose of 0.25 mg BID if develops any sign/symptoms of withdrawn Seroquel 100mg Continue monitor had a 6 beat run of V. tach 05/04 Having hallucination and paranoia Continue monitor DVT Ppx: SCDs Code status: FULL Disposition Needs inpatient psych in my opinion, still hallucinating, await further input from psych Subjective Pt was seen and examined. She was sitting in a recliner. Feels much better than yesterday. ROS-No Headache, No Visual Changes, No Fever, No Chills, No Neck Pain or Stiffness, No Chest Pain, No Palpitations, No SOB, No WILLIAM, No Cough, No Sputum, No Wheezing, No Abdominal Pain, No Diarrhea, No Hematemesis, No Hemoptysis, No Unexpected Weight Loss, No Flank pain, No Melena, No Hematochezia, No Frequency , No Urgency, No Burning, No Hematuria, No Rashes, No Diaphoresis. Appetite is Normal Physical Exam Gen-AAO x 3, NAD, Afebrile, better affect, smiling today, obese Head-NCAT, EOMI, PERRLA, Anicteric Sclera, No Posterior Pharyngeal Erythema Neck-Supple, No JVD, No Thyromegaly, No Masses, No LAD, No Bruits Lungs-Clear to Auscultation Bilaterally, No Rales, No Rhonchi, No Wheezing, No Crepitus Chest-No S4, +S1, +S2, No S3, No Murmurs, No Rubs, No Gallops, No Ectopy Abdomen-Soft, Bowel Sounds Present, Non Tender, Non Distended, No Hepatomegaly, No Splenomegaly, No Palpable Masses, No Rebound, No Rigidity, No Guarding Musculoskeletal-Full Range of Motion Bilaterally, No CVAT Extremities-No Cyanosis, No Clubbing, No Edema Nuero-Cranial Nerves II-XII grossly intact, Motor WNL, DTRs WNL, Strength WNL, No Focal GUFoley catheter in place Psych-still psychotic, hallucinating Physical Exam 2 Vital Signs (Past 24 Hours): Last Vital Signs Temp 37.5 C 05/07/18 06:53 Pulse 100 H 05/07/18 06:53 Resp 20 12/12/18 06:53 BP 121/75 05/07/18 06:53 Pulse Ox 96 05/07/18 06:53 _ (1) Acute renal failure Acute renal failure type: unspecified Qualified Code(s): N17.9 - Acute kidney failure, unspecified (2) UTI (urinary tract infection) Urinary tract infection type: Hematuria presence: Indwelling urinary catheter type: Encounter type: subsequent encounter
--- NOTE | 2018-05-07 13:10 | Pharmacy Report ---
Pharmacy Glycemic Short Note 2 - Date of Service May 07, 2018 - Glycemic Short BSG Results (Last 24 hours): 05/06/18 05/06/18 05/06/18 07:12 11:24 16:16 Glucose POC Glucose 123 H 144 H 102 H 05/06/18 05/07/18 05/07/18 21:24 05:33 07:34 Glucose 98 POC Glucose 117 H 96 05/07/18 11:12 Glucose POC Glucose 86 OUTPATIENT ANTIDIABETIC REGIMEN: * Toujeo 120 75 units SQ BID * NovoLog 15-25 units four times daily * Total daily dose ~ 210-250 units/day ASSESSMENT: 05/07 * Received 142 units of insulin yesterday * 130 units of basal * 12 units of prandial * Fasting 96 today- will decrease lantus slightly * BSGs 86-144- slightly loosen scale 05/06 * SCr continues to improve, 1.3 today * Received 163 units of insulin yesterday * 140 units of basal * 21 units of prandial * Fasting improved today- random level 84, POC 123, reduced lantus dose this AM with scale * Post prandial continue to be acceptable- no changes 05/05 * SCr decrease to 2.04 * Received 199 units of insulin yesterday * 130 units of basal * 69 units of prandial * Fasting was elevated this morning- received lowest dose from scale, patient also received 1x dose of SM- will adjust * Post prandial improved- will continue current bolus parameters 05/04 * 68yo T2DM female maintained on large outpatient doses of insulin with near- adequate control. * A1c = 8.9% which is above goal of about 7-8%, however, this is a marked improvement from July 2017 when A1c was 11.8% * Concern for possible hypoglycemia with ARF and large outpatient doses may be to cover uncontrolled CHO intake as an outpatient * Renal impairment leads to pharmacodynamic changes which increase insulin sensitivity * BSGs seem to be trending downwards today. Will change Lantus dosing to dosing per scale to prevent hypoglycemia PLAN FOR INPATIENT GLYCEMIC CONTROL: * Basal insulin * Lantus SQ BID - dosing based on BSG * 55 units tonight then dosing based on scale set for AM * BSG less than or equal to 180 mg/dl --> 55 units * BSG above 180 mg/dl --> 65 units (this is outpatient dosing) * Bolus insulin * NovoLog per scale ACHS or Q6hrs while NPO * Goal Range: Low 120 mg/dL - High 150 mg/dL * Correction Factor: 15 mg/dL/unit * Nutritional / Prandial insulin per carb ratio of 1 unit per 4 grams CHO consumed
[2018-05-07] MEDS: ZIPRASIDONE 20 MG/ML SDV IM PRN (16:16)
[2018-05-07] MEDS ORDERED: HALOPERIDOL LACTATE 5 MG/ML 1 ML VIAL IV STA (17:23)
[2018-05-07] MEDS: HALOPERIDOL LACTATE 5 MG/ML 1 ML VIAL IV PRN ×4 (18:20→20:10)
[2018-05-07] MEDS: cefUROXime axetil 500 MG TAB PO SCH (20:54)
[2018-05-07] MEDS: POTASSIUM CHLORIDE 20 MEQ TABCR PO SCH (20:54)
[2018-05-07] MEDS: QUETIAPINE FUMARATE 100 MG TABLET PO SCH (20:54)
[2018-05-07] MEDS ORDERED: INSULIN GLARGINE SOLOSTAR 100 UNITS/ML 3 ML PEN SC ONE (21:00)
[2018-05-08 06:21] LABS: Basophils # (auto) 0.03 K/uL (0-0.2); Basophils % (auto) 0.4 %; Eosinophils # (auto) 0.14 K/uL (0-0.5); Eosinophils % (auto) 1.8 %; Hematocrit (blood only) 32.9 % (37-47); Hemoglobin 10.3 g/dL (12.0-16.0); Immature Granulocytes # (auto) 0.16 K/uL (0.00-0.02); Immature Granulocytes % (auto) 2.1 %; Lymphocytes # (auto) 1.74 K/uL (1.2-3.4); Lymphocytes % (auto) 22.8 %; Mean Corpuscular Hgb Conc 31.3 g/dL (32-36); Mean Corpuscular Volume 89.4 fL (80-100); Mean Platelet Volume 10.9 fL (7.4-10.4); Monocytes # (auto) 0.97 K/uL (0.11-0.59); Monocytes % (auto) 12.7 %; Neutrophils # (auto) 4.58 K/uL (1.4-6.5); Neutrophils % (auto) 60.2 %; Platelet Count 140 K/uL (130-400); RDW Coefficient of Variation 18.1 % (11.5-14.5); RDW Standard Deviation 59.3 fL (36.4-46.3); Red Blood Count 3.68 M/uL (4.2-5.4); White Blood Count 7.62 K/uL (4.8-10.8)
[2018-05-08 06:53] LABS: BUN Creatinine Ratio 20.5 (10-20); Creatinine Clr Calc Pharmacy 71.1 ml/min; Est GFR (Non-African American) 50.1; Potassium 3.6 mmol/L (3.5-5.1)
[2018-05-08] MEDS: clonazePAM 0.5 MG TAB PO SCH ×2 (07:37→20:56)
[2018-05-08] MEDS: QUETIAPINE FUMARATE 25 MG TABLET PO PRN (07:37)
[2018-05-08] MEDS: cefUROXime axetil 500 MG TAB PO SCH ×2 (07:38→20:41)
[2018-05-08] MEDS: CARBOHYDRATES FOR HYPOGLYCEMIA PO PRN ×2 (07:39→07:54)
[2018-05-08] MEDS: POTASSIUM CHLORIDE 20 MEQ TABCR PO SCH ×3 (07:39→20:41)
[2018-05-08] MEDS: INSULIN ASPART 100 UNITS/ML 3 ML PEN SC SCH ×4 (07:50→20:48)
--- NOTE | 2018-05-08 09:08 | Hospitalist Progress Note ---
Date of Service May 08, 2018 Assessment & Plan (1) Acute renal failure: Off IV fluids CT abd/pelvis showed no significant abnormality identified within the abdomen or pelvis. Nephrology on board Avoid nephrotoxic agents Lisinopril and furosemide on hold Continue monitor BMP Creatinine 1.14 (2) Sepsis: Status post fever with Temp 38.5, tachycardia and hypotension with SBP in the 70's Now afebrile Urine cx positive for Ecoli Blood cx no growth On Ceftin 500 every 12 until 05/12 (3) UTI (urinary tract infection): Urine cx grew Ecoli Ceftin as above (4) Hypotension: Due to sepsis /dehydration Resolved Received IVF bolus (5) Hyperkalemia: K on admission 6.3. Received Kayexelate, D50 and insulin in ED K today 3.6 Patient on 40 mEq potassium twice daily and received 80 mEq yesterday morning (6) Chest pain: Atypical presentation with vague complaint of chest pain, abdominal pain and back pain EKG without acute ST changes Troponin x3 negative Continue monitor in tele ECHO normal EF 60-65% (7) Acute metabolic encephalopathy: Due to DAVONTE in the setting of polypharmacy Admits to taking more muscle relaxants (Flexeril, Skelatin) and seroquel than prescribed CT head showed no acute intracranial abnormality has been having hallucinations Required Haldol 05/04 and 05/05 No longer encephalopathic, now Psychotic (8) Polypharmacy: History of altered state due to overtaking prescribed medications Received excessive amount of Benzo in Nov On Klonopin/Lyrica/Seroquel/Pramipexole/ cyclobenzaprine/Metaxalone/duloxetine that can alter mental status (9) Hypertension: BP dropped and Bolus NS was given Continue holding lisinopril due to DAVONTE and hypotension BP stable (10) DM type 2 (diabetes mellitus, type 2): Recent Hba1c 7.3 (05/04)g Monitor BS Hold home meds On SSI while in-patient Pharmacy on board for glycemic management Sugar is low today because she is not eating much (11) Morbid obesity: Counseling on weight loss Diet and exercise (12) History of opioid abuse: Utox negative for opioids (13) Anxiety: As above (14) Depression: Psych on board Recommended to start at a low dose of 0.25 mg BID if develops any sign/symptoms of withdrawn Seroquel 100mg Continue monitor had a 6 beat run of V. tach 05/04 none since 03/04 Having hallucination and paranoia Continue monitor DVT Ppx: SCDs Code status: FULL Disposition Needs inpatient psych in my opinion, still hallucinating, await further input from psych. She either needs to go to inpatient psych or be cleared by Psych to go home. Subjective Pt was seen and examined. She was sitting down. Has been very anxious and combative the last couple days. ROS-No Headache, No Visual Changes, No Fever, No Chills, No Neck Pain or Stiffness, No Chest Pain, No Palpitations, No SOB, No WILLIAM, No Cough, No Sputum, No Wheezing, No Abdominal Pain, No Diarrhea, No Hematemesis, No Hemoptysis, No Unexpected Weight Loss, No Flank pain, No Melena, No Hematochezia, No Frequency , No Urgency, No Burning, No Hematuria, No Rashes, No Diaphoresis. Appetite is Normal, anxious Physical Exam Gen-AAO x 3, NAD, Afebrile, better affect, flat affect, obese Head-NCAT, EOMI, PERRLA, Anicteric Sclera, No Posterior Pharyngeal Erythema Neck-Supple, No JVD, No Thyromegaly, No Masses, No LAD, No Bruits Lungs-Clear to Auscultation Bilaterally, No Rales, No Rhonchi, No Wheezing, No Crepitus Chest-No S4, +S1, +S2, No S3, No Murmurs, No Rubs, No Gallops, No Ectopy Abdomen-Soft, Bowel Sounds Present, Non Tender, Non Distended, No Hepatomegaly, No Splenomegaly, No Palpable Masses, No Rebound, No Rigidity, No Guarding Musculoskeletal-Full Range of Motion Bilaterally, No CVAT Extremities-No Cyanosis, No Clubbing, No Edema Nuero-Cranial Nerves II-XII grossly intact, Motor WNL, DTRs WNL, Strength WNL, No Focal GUFoley catheter in place Psych-still psychotic, hallucinating Physical Exam 2 Vital Signs (Past 24 Hours): Last Vital Signs Temp 37.1 C 05/08/18 04:00 Pulse 75 05/08/18 04:00 Resp 20 05/08/18 07:31 BP 106/61 05/08/18 04:00 Pulse Ox 96 12/13/18 04:00 _ (1) UTI (urinary tract infection) Encounter type: subsequent encounter Hematuria presence: Indwelling urinary catheter type: Urinary tract infection type: (2) Acute renal failure Acute renal failure type: unspecified Qualified Code(s): N17.9 - Acute kidney failure, unspecified
--- NOTE | 2018-05-08 09:17 | Communication Note ---
Date of Service: May 08, [address] Corado last evening. Patient had once again been acutely agitated, code chloe called and meds given. He has medically cleared her and believes that she is in need on inpatient psychiatrice treatment. I have attempted to evaluate her today, but she is sedated, unable to participate fully in the interview. She is disoriented thinking that its 2010 and does not know the month, but is aware she is in the hospital. I have asked nursing to call me as soon as she is more alert and I will try to evaluate again.
[2018-05-08] MEDS: CALCIUM CARBONATE 1250MG TAB PO SCH ×2 (09:22→20:42)
[2018-05-08] MEDS: ACETAMINOPHEN 325 MG TAB PO PRN ×3 (10:12→22:12)
--- NOTE | 2018-05-08 13:06 | Psychiatric Progress Note ---
Date of Service May 08, 2018 Impression / Recommendations Impression Patient previously seen by CL team. Judged to be delirious. No psychiatric inpatient treatment indicated at the time. She has since had periods of agitation, particularly in the evenings, requiring antipsychotics and at least 2 code greys. Today she has little recall of yesterday's events, but remembers being fearful. She is now oriented, but quickly loses that grasp if not actively reality oriented. She is not agitated today and not hallucinating. This waxing and waning course is more indicative of a delirium, rather than psychosis, and I have concerns that, given her age and history of medication abuse (opiates and BZD's), she may take longer to clear from delirium. The pattern of worsening behavior and mentation in the evenings is concerning for sundowning and I have asked the liaison nurse to talk with her to inquire about her sleep patterns, memory problems, any similar sundowning symptoms at home, in the event we may be looking at delirium superimposed on an early dementing process. Will have nursing attempt to to obtain a full MoCA test for cognitive functioning. I do no believe that what we are seeing is a primary mental health issue, but delirium, which is a medical problem. It may help to move her HS Seroquel to 8 pm or earlier to target her periods of evening agitation. I have reviewed this extensively with Dr. Pickett who is in agreement with this assessment. (1) Acute metabolic encephalopathy: 05/04 - agreed with hold Klonopin, will take time to clear given creatinine. Reviewed with patient that she is at risk for a delayed withdrawal reaction and that generally 1.5 mg Klonopin total daily dose would be tapered. May benefit from Klonopin 0.25 mg BID acute dosing then taper if symptoms/signs of withdrawal, will defer at this time. given some of her symptoms, can't exclude an underlying bipolar component, ideally would restart Seroquel at lower dose of 100 mg tomorrow if MSE continues to improve. There is no evidence of agitation or need for acute inpatient psychiatric hospitalization. GRANT signed for outpatient provider and liaison nurse Ion Mcdaniels RN to speak with for collateral and safety plan around meds at home. 05/05 - Consider pursuing recommendations above, as A/V hallucinations and delusions reported regarding comments the patient heard from "nurses" may be consistent with withdrawal from clonazepam overdose. Orders entered to begin clonazepam 0.25mg BID and suggest taper to discontinuation over the course of her hospitalization. Would be appropriate to begin Seroquel as per recommendations above. 05/08 - Continues with waxing waning mental status, indicative of ongoing delirium - Would encourage nursing staff to keep awake in the day and asleep at night - Would recommend moving HS Seroquel to 8 pm or earlier to target difficult evening times. - Will have liaison obtain additional supplemental information from relative to a possible early dementing process and also to count her controlled substances to determine if appropriate usage. Risk Factors Assessment Do You Have Access To A Gun?: No Subjective Subjective Patient was seen & assessed and interval progress reviewed with Nursing. Patient was agitated and paranoid yesterday requiring two code greys. Was given ativan, haldol and Geodon which eventually allowed her to calm and sleep. Attempted to see her earlier this AM, but patient sedated and unable to participate. Upon my return later the patient was more alert, seated in the bedside chair. I re-introduce myself and my purpose in being there. She again says that her mental hasn't been stable in the past and says that she has had multiple hospitalizations for mental illness, but can't remember where or when. She is oriented now to person, place, year, month, but not to events. She says that she remembers getting agitated last evening, remembers feeling afraid , but can't say what of. She cannot clearly answer questions regarding hallucinations, saying that she thinks she has had them in the past, but says " I don't remember" when asked for additional information. In trying to further explore her memory of last evening's events she says that she doesn't understand "the program" and what to expect. I remind her that she is in the hospital for medical reasons and that there is no program and she just stares at me. When asked about her mood she says its "not too good" but says "I don't remember" when asked to talk more about that. She does admit that her sleep at home had been disturbed, staying awake at night and taking naps in the day. She also says she was taking 2-3 pills of Klonopin daily at home and maybe 2 pain pills but when asked what kind, says "I don't remember". She denies SI/ HI. Physical Exam Psychiatric Orientation: oriented to person and oriented to time Apperance: appropriately dressed and appropriately groomed Eye Contact: + fair eye contact Motor Behavior: no abnormal motor movements Speech: normal rate/rhythm/volume of speech poverty of thought, no spontaneous conversation Affect: + flat affect Mood: + anxious mood slowed, with latency to responses Thought Content: + cognitive distortions Suicidal Thoughts: denies suicidal thoughts Homicidal Thoughts: denies homicidal thoughts unclear answers Estimated Intelligence: average estimated intelligence Insight: + impaired insight Judgement: + impaired judgement Vital Signs (Past 24 Hours) Last Vital Signs Temp 36.7 C 05/08/18 11:02 Pulse 80 05/08/18 11:02 Resp 20 05/08/18 11:02 BP 93/74 L 05/08/18 11:02 Pulse Ox 94 05/08/18 11:02 Results & Data Laboratory Results Laboratory Results - last 24 hr 05/07/18 05/07/18 05/07/18 16:21 16:39 20:38 WBC RBC Hgb Hct MCV MCH MCHC RDW Std Deviation RDW Coeff of Pérez Plt Count MPV Immature Gran % (Auto) Neut % (Auto) Lymph % (Auto) [place] % (Auto) Eos % (Auto) Baso % (Auto) Immature Gran # (Auto) Neut # (Auto) Lymph # (Auto) [place] # (Auto) Eos # (Auto) Baso # (Auto) Sodium Potassium 3.5 D Chloride Carbon Dioxide Anion Gap BUN Creatinine Est Cr Clr Drug Dosing Est GFR ( Amer) Est GFR (Non-Af Amer) BUN/Creatinine Ratio Glucose POC Glucose 79 80 Calcium Magnesium 05/08/18 05/08/18 05/08/18 06:05 06:05 06:05 WBC 7.62 RBC 3.68 L Hgb 10.3 L Hct 32.9 L MCV 89.4 MCH 28.0 MCHC 31.3 L RDW Std Deviation 59.3 H RDW Coeff of Pérez 18.1 H Plt Count 140 MPV 10.9 H Immature Gran % (Auto) 2.1 Neut % (Auto) 60.2 Lymph % (Auto) 22.8 [place] % (Auto) 12.7 Eos % (Auto) 1.8 Baso % (Auto) 0.4 Immature Gran # (Auto) 0.16 H Neut # (Auto) 4.58 Lymph # (Auto) 1.74 [place] # (Auto) 0.97 H Eos # (Auto) 0.14 Baso # (Auto) 0.03 Sodium 143 Potassium 3.6 Chloride 109 H Carbon Dioxide 26 Anion Gap 8.0 BUN 23 H Creatinine 1.14 Est Cr Clr Drug Dosing 71.1 Est GFR ( Amer) 58.0 Est GFR (Non-Af Amer) 50.1 BUN/Creatinine Ratio 20.5 H Glucose 58 L POC Glucose Calcium 8.0 L Magnesium 1.2 L 05/08/18 05/08/18 05/08/18 07:36 07:54 08:11 WBC RBC Hgb Hct MCV MCH MCHC RDW Std Deviation RDW Coeff of Pérez Plt Count MPV Immature Gran % (Auto) Neut % (Auto) Lymph % (Auto) [place] % (Auto) Eos % (Auto) Baso % (Auto) Immature Gran # (Auto) Neut # (Auto) Lymph # (Auto) [place] # (Auto) Eos # (Auto) Baso # (Auto) Sodium Potassium Chloride Carbon Dioxide Anion Gap BUN Creatinine Est Cr Clr Drug Dosing Est GFR ( Amer) Est GFR (Non-Af Amer) BUN/Creatinine Ratio Glucose POC Glucose 62 L* 65 L* 118 H Calcium Magnesium Current Inpatient Medications Current Inpatient Medications: Current Inpatient Medications Acetaminophen (Tylenol) 325 mg PO Q4H PRN PRN Reason: Mild Pain Stop: 06/03/18 04:17 Last Admin: 05/08/18 10:12 Dose: 325 mg Calcium Carbonate (Os-Marin 500) 1,250 mg PO BID [facility] Stop: 06/07/18 08:59 Last Admin: 05/08/18 09:22 Dose: Not Given Cefuroxime Axetil (Ceftin) 500 mg PO Q12 [facility] Stop: 05/12/18 20:59 Last Admin: 05/08/18 07:38 Dose: 500 mg Clonazepam (Klonopin) 0.25 mg PO BID [facility] Stop: 06/04/18 10:59 Last Admin: 05/08/18 07:37 Dose: 0.25 mg Glucagon (Glucagen) 1 mg IM UD PRN; Protocol PRN Reason: Hypoglycemia Protocol Stop: 06/02/18 17:16 Glucose (Glucose 40%) 15 - 30 gm PO UD PRN; Protocol PRN Reason: Hypoglycemia Protocol Stop: 06/02/18 17:16 Glucose (Dex4 Glucose) 4 - 8 tabs PO UD PRN; Protocol PRN Reason: Hypoglycemia Protocol Stop: 06/02/18 17:16 Insulin Aspart (Novolog Flexpen) 0 units SC ACHS [facility]; Protocol Stop: 06/02/18 19:29 Last Admin: 05/08/18 12:09 Dose: 12 units Insulin Glargine (Lantus Solostar Pen) 0 units SC BID [facility]; Protocol Stop: 06/03/18 20:59 Last Admin: 05/07/18 08:06 Dose: 65 units Ipratropium [place] (Atrovent 0.02% 0.5mg/2.5ml) 0.5 mg INH Q4H PRN PRN Reason: Wheezing Stop: 06/03/18 20:14 Levalbuterol HCl (Xopenex 1.25mg/0.5ml Neb) 1.25 mg INH Q4H PRN PRN Reason: Wheezing Stop: 06/03/18 20:14 Magnesium Oxide (Mag-Ox) 400 mg PO TID [facility] Stop: 05/11/18 23:00 Miscellaneous (Carbohydrates For Hypoglycemia) 15 - 30 gm PO UD PRN PRN Reason: Hypoglycemia Treatment Stop: 06/02/18 17:16 Last Admin: 05/08/18 07:54 Dose: 15 gm Miscellaneous Information (Consult Glycemic Management Pharmacy) 1 ea N/A UD [facility] Stop: 06/02/18 17:09 Potassium Chloride (Klor-Con M20) 40 meq PO BID [facility] Stop: 06/06/18 20:59 Last Admin: 05/08/18 08:31 Dose: Not Given Quetiapine Fumarate (Seroquel) 200 mg PO HS [facility] Stop: 06/04/18 20:59 Last Admin: 05/07/18 20:54 Dose: 200 mg Quetiapine Fumarate (Seroquel) 50 mg PO Q4H PRN PRN Reason: Anxiety/Agitation Stop: 06/04/18 17:29 Last Admin: 05/08/18 07:37 Dose: 50 mg Ziprasidone (Geodon) 20 mg IM Q12 PRN PRN Reason: Agitation Stop: 06/06/18 20:59 Last Admin: 05/07/18 16:16 Dose: 20 mg CPT Code CPT Code 54845
[2018-05-08] MEDS: MAGNESIUM OXIDE 400 MG TAB PO SCH ×2 (14:52→20:42)
[2018-05-08] MEDS ORDERED: INSULIN GLARGINE SOLOSTAR 100 UNITS/ML 3 ML PEN SC ONE ×3 (15:00→21:00)
--- NOTE | 2018-05-08 15:07 | Pharmacy Report ---
PHA: Glycemic Control AP - Date of Service May 08, 2018 - Assessment & Plan Assessment * BSG's ranging 62-96 mg/dL over the last 24 hours. Hypoglycemia noted this AM. Etiology likely 2nd poor po intake per provider note yesterday and Lantus dose being too high (despite being a reduction from home dose). * Of note, patient only received 65 units of Lantus yesterday (which is 1/2 of previous days' totals) but still experienced hypoglycemia this AM * Waited until lunch today to admin AM dose of Lantus to ensure BSG's increased appropriately - lunch BSG 176 mg/dL therefore OK to resume. Will do so at 20% reduction from yesterday's total dose. * Will loosen CHO ratio slightly as patient may experience repeat hypoglycemia due to higher insulin doses if/when CHO intake increases Plan * Basal insulin: Lantus 50 units x1 now. Additional 10 units tonight if BSG > 180 mg/dL * Correctional Insulin: Novolog Correction per scale ACHS Goal Range: Low 120 mg/dL - High 150 mg/dL Correction Factor: 15 mg/dL/unit * Prandial insulin: Per carb ratio of 1 unit per 5 grams CHO consumed Pharmacy will continue to monitor patient daily and write orders per [facility] ED inpatient glycemic control protocol. Thanks. * Please note that the plan above was derived based on current level of insulin resistance and hospital stress. These recommendations are appropriate for inpatient admission only. Plan of care upon discharge will need to be reassessed to avoid potential outpatient hypo/hyperglycemia.
[2018-05-08] MEDS: QUETIAPINE FUMARATE 100 MG TABLET PO SCH (20:40)
[2018-05-09] MEDS: ZIPRASIDONE 20 MG/ML SDV IM PRN (01:30)
[2018-05-09] MEDS: ACETAMINOPHEN 325 MG TAB PO PRN (04:10)
[2018-05-09 07:44] LABS: Hematocrit (blood only) 33.5 % (37-47); Hemoglobin 10.8 g/dL (12.0-16.0); Mean Corpuscular Hgb Conc 32.2 g/dL (32-36); Mean Corpuscular Volume 89.6 fL (80-100); Mean Platelet Volume 11.4 fL (7.4-10.4); Platelet Count 154 K/uL (130-400); RDW Coefficient of Variation 17.9 % (11.5-14.5); RDW Standard Deviation 58.7 fL (36.4-46.3); Red Blood Count 3.74 M/uL (4.2-5.4); White Blood Count 9.18 K/uL (4.8-10.8)
[2018-05-09 08:22] LABS: BUN Creatinine Ratio 20.5 (10-20); Calcium 8.6 mg/dl (8.5-10.1); Creatinine Clr Calc Pharmacy 87.2 ml/min; Est GFR (African American) 74.2; Potassium 4.4 mmol/L (3.5-5.1)
[2018-05-09] MEDS ORDERED: INSULIN GLARGINE SOLOSTAR 100 UNITS/ML 3 ML PEN SC STA (08:22)
[2018-05-09] MEDS: CALCIUM CARBONATE 1250MG TAB PO SCH (09:27)
[2018-05-09] MEDS: MAGNESIUM OXIDE 400 MG TAB PO SCH ×2 (09:27→13:31)
[2018-05-09] MEDS: clonazePAM 0.5 MG TAB PO SCH (09:27)
[2018-05-09] MEDS: cefUROXime axetil 500 MG TAB PO SCH (09:28)
[2018-05-09] MEDS: POTASSIUM CHLORIDE 20 MEQ TABCR PO SCH (09:28)
[2018-05-09] MEDS: INSULIN ASPART 100 UNITS/ML 3 ML PEN SC SCH ×2 (09:30→13:32)
--- NOTE | 2018-05-09 12:32 | Discharge Summary ---
Date of Service May 09, 2018 Admission HPI Per Admitting Provider Mrs. Alejandre is a 68yo F with a PMH of anxiety, depression, h/o opioid dependence, DM II, HTN, who was previously evaluated by our service in 2014. Patient was also admitted at that time with AMS with concern about not taking medications as prescribed. On admission her reported to hospitalist that she was complaining of dizziness and weakness, to the point that he slept on the ground in her bedroom because she was unable to get up. Today patient describes stress related to her daughter's bipolar disorder and the same paranoid belief that daughter may be taking her medications. She states that she uses a pill minder and keeps her remaining meds in a lock box but that Klonopin have gone missing. There are concerns that maybe she was taking more muscle relaxers and seroquel than prescribed as her sister last month and that she has been anxious and sad ever since. She continues to deny any intentional overdose or suicide attempt. She had also endorsed non- specific auditory hallucinations but denies them at the time of the exam. Principal Diagnosis Acute renal failure Hyperkalemia Chest pain Acute metabolic encephalopathy Polypharmacy Hypertension DM type 2 History of opioid abuse Anxiety Depression Discharge Exam Pt was seen and examined. She looks great today compared to all the other days discussed with her she is comfortable to go home and she is we will DC her today she can follow-up with psych as an outpatient when she will be on a tapering dose of Klonopin and she will be on Seroquel 100 mg at 8 PM 50 mg in the morning ROS-No Headache, No Visual Changes, No Fever, No Chills, No Neck Pain or Stiffness, No Chest Pain, No Palpitations, No SOB, No WILLIAM, No Cough, No Sputum, No Wheezing, No Abdominal Pain, No Diarrhea, No Hematemesis, No Hemoptysis, No Unexpected Weight Loss, No Flank pain, No Melena, No Hematochezia, No Frequency , No Urgency, No Burning, No Hematuria, No Rashes, No Diaphoresis. Appetite is Normal, calm today Physical Exam Gen-AAO x 3, NAD, Afebrile, very pleasant today, obese Head-NCAT, EOMI, PERRLA, Anicteric Sclera, No Posterior Pharyngeal Erythema Neck-Supple, No JVD, No Thyromegaly, No Masses, No LAD, No Bruits Lungs-Clear to Auscultation Bilaterally, No Rales, No Rhonchi, No Wheezing, No Crepitus Chest-No S4, +S1, +S2, No S3, No Murmurs, No Rubs, No Gallops, No Ectopy Abdomen-Soft, Bowel Sounds Present, Non Tender, Non Distended, No Hepatomegaly, No Splenomegaly, No Palpable Masses, No Rebound, No Rigidity, No Guarding Musculoskeletal-Full Range of Motion Bilaterally, No CVAT Extremities-No Cyanosis, No Clubbing, No Edema Nuero-Cranial Nerves II-XII grossly intact, Motor WNL, DTRs WNL, Strength WNL, No Focal Psych-pleasant mood today Discharge Data Allergies Allergy/AdvReac Type Severity Reaction Status Date / Time bee venom protein (honey bee) Allergy Severe ANAPHYLAXIS Verified 05/03/18 13:39 iodine Allergy Severe ANAPHYLAXIS Verified 05/03/18 13:39 aspartame Allergy Unknown RASH Unverified 05/03/18 13:39 clonazepam Allergy Unknown ITCHING Unverified 05/03/18 13:39 RASH colestipol Allergy Unknown RASH Unverified 05/03/18 13:39 diphenhydramine Allergy Unknown UNKNOWN Unverified 05/03/18 13:39 doxycycline Allergy Unknown HIVES Unverified 05/03/18 13:39 glimepiride Allergy Unknown RASH Unverified 05/03/18 13:39 glyburide Allergy Unknown RASH Unverified 05/03/18 13:39 hydroxyzine Allergy Unknown MENTAL Unverified 05/03/18 13:39 CONFUSION metformin Allergy Unknown RASH Unverified 05/03/18 13:39 pioglitazone Allergy Unknown RASH Verified 05/03/18 13:39 pseudoephedrine Allergy Unknown JITTERINESS Unverified 05/03/18 13:39 rosuvastatin Allergy Unknown IRCHING Unverified 05/03/18 13:39 RASH shellfish derived Allergy Unknown SWELLING Unverified 05/03/18 13:39 OF FACE AND MOUTH tramadol Allergy Unknown NAUSE A Unverified 05/03/18 13:39 VOMITING Consultations 05/03/18 12:37 ED Decision to Admit Stat 05/03/18 17:06 Consult Case Management - Discharge Planning Routine Consult Nephrology Routine Consult Psychiatry Routine 05/07/18 15:58 Consult Psychiatry Routine Ordered Studies 05/03/18 12:35 CT abd pelvis wo con Stat 05/03/18 16:37 CT head/brain wo con Urgent 05/03/18 22:39 US venous doppler LE LT Urgent Hospital Course (1) Acute renal failure: Patient was admitted with acute renal failure and sepsis secondary to urinary tract infection. She was placed on IV Zosyn. She had delirium secondary to polypharmacy and infection. She had a long and [facility] hospital course was evaluated by psychiatry who felt that she was delirious and had metabolic encephalopathy instead of psychosis. Her renal function returned to normal with IV fluids. Her mood is now normal. She will go home today on a tapering dose of Klonopin and Seroquel at the evening and in the morning. She has follow-up appointments with her primary care physician as well as psychiatry (2) Urinary retention with incomplete bladder emptying: Schaefer catheter is out (3) Acute delirium: Tapering dose of Klonopin and twice daily Seroquel (4) Sepsis: Resolved status post Zosyn and Ceftin (5) Electrolyte disorder: Resolved (6) Morbid obesity: Weight loss discussed with patient (7) Hypotension: Resolved with IV fluids (8) UTI (urinary tract infection): Resolved (9) Chest pain: Cardiac workup negative (10) Polypharmacy: Was counseled on polypharmacy (11) Acute metabolic encephalopathy: Resolved at this point continue Seroquel and Klonopin (12) History of opioid abuse: Not on any opiates (13) Hyperkalemia: Resolved Total Time Total Time Spent Total Time Spent (In Minutes): 60 mins Discharge Plan Discharge Items Patient Disposition: Home - Self-Care Reason For Visit: ACUTE RENAL FAILURE, MEDICATION OVERDOSE Discharge Diagnosis: Acute Renal Failure UTI Delirium Discharge Goals: Decrease discomfort, Improve disease control and Improve function Activity: Resume your previous activity Lifting: Gradually increase as tolerated Exercise/Sports: Gradually increase as tolerated Non-emergency contact: Primary Care Provider and Psychiatrist Call non-emergency contact if: you have any medication questions, your symptoms worsen, your pain is concerning for you and you have a fever Follow-up/Referrals: Chris Asencio DO [Primary Care Provider] - 05/14/18 11:00 am Diet: Carb Consistent or DM2 Addtl Provider Instructions: Take 1/2 tablet of 0.5mg clonazepam (Klonopin) for 3 days then stop Increase quetiapine (Seroquel) to 4 50mg tablets at 8pm STOP taking: lisinopril, duloxetine (Cymbalta), pregabalin (Lyrica) Follow up with PCP as scheduled Follow up with Dr. Tomlinson at [facility] as scheduled Prescriptions: New clonazepam 0.5 mg Tablet 0.25 mg PO DAILY 3 Days Qty: 1.5 RF: 0 quetiapine [Seroquel] 50 mg tablet 200 mg PO HS Qty: 1 RF: 0 Continue cyclobenzaprine 10 mg tablet 10 mg PO BID PRN (Reason: Muscle Spasm) RF: 0 pramipexole 1 mg Tablet 1 mg PO TID RF: 0 furosemide 40 mg tablet 40 mg PO DAILY PRN (Reason: Edema) RF: 0 atorvastatin 20 mg Tablet 20 mg PO DAILY RF: 0 diphenoxylate-atropine 2.5-0.025 mg tablet 2 tab PO QID PRN (Reason: Diarrhea) RF: 0 methscopolamine 2.5 mg tablet 2.5 mg PO TID PRN (Reason: Cramps) RF: 0 omeprazole 20 mg Capsule,Delayed Release(Dr/Ec) 20 mg PO DAILY RF: 0 fluticasone [Flovent HFA] 220 mcg/actuation HFA aerosol inhaler 2 puff Inhalation BID RF: 0 fluticasone 50 mcg/actuation spray,suspension 2 spray Intranasal DAILY RF: 0 metaxalone 800 mg tablet 800 mg PO QID PRN (Reason: Pain) RF: 0 insulin aspart U-100 [Novolog Flexpen U-100 Insulin] 100 unit/mL insulin pen 15 - 25 units subcut QID MDD 100 UNITS RF: 0 insulin glargine U-300 conc [Toujeo SoloStar U-300 Insulin] 300 unit/mL (1.5 mL) insulin pen 75 units subcut BID RF: 0 Discontinued clonazepam 0.5 mg tablet 0.5 mg PO TID PRN (Reason: Anxiety) RF: 0 lisinopril 10 mg tablet 10 mg PO DAILY RF: 0 duloxetine 60 mg capsule,delayed release(DR/EC) 120 mg PO DAILY RF: 0 pregabalin [Lyrica] 150 mg capsule 150 mg PO BID RF: 0 quetiapine 50 mg tablet 150 mg PO HS RF: 0 Visit Report Forms: My [facility] Portal Discharge Orders: Discharge Order (Routine); Ordered 05/09/18 Ordered By: Deangelo Corado Admission Data Admit Date/Time: 05/03/18 14:34 Attending Provider: Deangelo Corado Admit Provider: Cathryn Vinson Primary Care Provider: Chris Asencio Other Providers: Home,Nursing Agency ; Cathryn Vinson ; Analisa Day ; Nataliia Gamboa ; Catherine Pickett Service: Telemetry
--- NOTE | 2018-05-13 09:22 | Coding Query ---
PRESENT ON ADMISSION QUERY To promote full compliance with coding requirements relating to pateint care, physician participation is requested in all cases of test and turn up technician uncertainty. Please assist us with the question(s) below: Please place an X within the parenthesis (x). The following diagnosis(es) listed in this patient's medical record require physician assistance to determine if they were present on admission (POA) or not. Please advise for each diagnosis whether it was present on admission, not present on admission, or if it was clinically undetermined. 1. SEPSIS (documented beginning with your 05/03 Progress Note and onward throughout the record) ( ) Present On Admission ( ) Not Present On Admission ( ) Clinically Undetermined Thank you Katelynn Zhang *Definition of the present on admission (POA)-Present on admission is defined as present at the time the order for inpatient admission occurs. Conditions that develop during an outpatient encounter prior to a written order for inpatient admission (including emergency department, observation, or outpatient surgery) are considered present on admission. CHIARAD
--- NOTE | 2018-05-30 06:44 | Coding Query ---
PRESENT ON ADMISSION QUERY To promote full compliance with coding requirements relating to pateint care, physician participation is requested in all cases of medical coder uncertainty. Please assist us with the question(s) below: Please place an X within the parenthesis (x). The following diagnosis(es) listed in this patient's medical record require physician assistance to determine if they were present on admission (POA) or not. Please advise for each diagnosis whether it was present on admission, not present on admission, or if it was clinically undetermined. 1. SEPSIS (documented beginning with your 05/03 Progress Note and onward throughout the record) ( ) Present On Admission ( x) Not Present On Admission ( ) Clinically Undetermined Thank you Katelynn Zhang *Definition of the present on admission (POA)-Present on admission is defined as present at the time the order for inpatient admission occurs. Conditions that develop during an outpatient encounter prior to a written order for inpatient admission (including emergency department, observation, or outpatient surgery) are considered present on admission. BLAIR
== END 2018-05-09 17:10 | disposition home or self-care (01) | DRG 682 ==
LOC: ED 11:07 → 2E 14:34 → SUATTDRO 14:34 → 2E 16:30 → 4E 05-08 12:14

== ENCOUNTER 2018-08-26 07:56 | Inpatient (IN) ==
--- NOTE | 2018-08-05 14:21 | PAT Medication Instructions ---
Medication Instructions Date of Service August 05, 2018 Home Medications Medication Instructions Recorded quetiapine 200 mg PO HS #14 tab 05/09/18 atorvastatin 20 mg PO HS cyclobenzaprine 10 mg PO BID PRN diphenoxylate-atropine 2 tab PO TID PRN furosemide 40 mg PO DAILY PRN metaxalone 800 mg PO BID PRN methscopolamine 2.5 mg PO TID PRN omeprazole 20 mg PO BID pramipexole 1 mg PO TID quetiapine 200 mg PO HS acetaminophen [Tylenol Arthritis 1,300 mg PO Q12H PRN aspirin [Aspir-81] 81 mg PO QAM diclofenac sodium 2 g TOPICAL QID PRN fluticasone [Flovent HFA] 1 puff INHALATION BID PRN fluticasone-vilanterol [Breo 1 inh INHALATION QAM Toujeo (insulin glargine) 75 unit SUBCUT BID insulin aspart U-100 [Novolog 10 - 20 unit SUBCUT QID lactobacillus combination no.4 3,000 mmu cells PO QAM lisinopril 5 mg PO QAM meloxicam 7.5 mg PO BID multivitamin 2 tab PO QAM ondansetron 4 mg PO Q6H PRN pregabalin [Lyrica] 50 mg PO TID ranitidine HCl [Zantac] 150 mg PO BID ASK your surgeon for instructions meloxicam 7.5 mg PO BID STOP taking 24 hours before surgery diclofenac sodium 2 g TOPICAL QID PRN pramipexole 1 mg PO TID DO NOT take the morning of surgery cyclobenzaprine 10 mg PO BID PRN diphenoxylate-atropine 2 tab PO TID PRN furosemide 40 mg PO DAILY PRN metaxalone 800 mg PO BID PRN methscopolamine 2.5 mg PO TID PRN lactobacillus combination no.4 3,000 mmu cells PO QAM lisinopril 5 mg PO QAM multivitamin 2 tab PO QAM ranitidine HCl [Zantac] 150 mg PO BID insulin aspart U-100 [Novolog 10 - 20 unit SUBCUT QID Take morning of surgery With a small sip of water, OTHERWISE NOTHING TO EAT OR DRINK AFTER MIDNIGHT: omeprazole 20 mg PO BID acetaminophen [Tylenol Arthritis 1,300 mg PO Q12H PRN (okay to take up to 4 hours prior to surgery if needed) aspirin [Aspir-81] 81 mg PO QAM fluticasone [Flovent HFA] 1 puff INHALATION BID PRN (if needed) fluticasone-vilanterol [Breo 1 inh INHALATION QAM ondansetron 4 mg PO Q6H PRN (if needed) pregabalin [Lyrica] 50 mg PO TID Insulin Dependent Diabetic Patients * Test your blood sugar the morning of surgery * If Blood Sugar is GREATER THAN 150, take HALF of your regular dose of: Toujeo (insulin glargine); take 37 units * If Blood Sugar is LESS THAN 150, DO NOT TAKE ANY: Toujeo (insulin glargine) Other Notes If you have any questions please call us at [phone] or [phone] or [phone] or [phone]
--- NOTE | 2018-08-06 10:57 | Anesthesiology Consultation ---
Date of Service August 06, 2018 Assessment & Plan (1) Encounter for pre-operative examination: - Check BSG AM DOS - Hx glidescope intubation: RIGHT SHOULDER SCOPE WITH RCR= 06/29/16= GLIDESCOPE #3 "GOOD VIEW", ETT 7 AT [facility] - PCP= 07/10/18= "stable on current regimen." Aware of upcoming TKA. Chart Review Chart Review: Acceptable Risk for Surgery and Patient seen in Pre Admission Testing Teaching & Discussion Pre-Anesthesia Teaching/Discussion Notes: Instructed NPO after midnight before surgery,except medications with 15 cc of water. Medication instructions provided according to the PAT guidelines. History Surgery Operation Date: 08/26/18 07:00 Proposed Procedures p Right Total Knee Arthroplasty - Beni Titus MD Height/Weight Height: 5 ft 8 in Weight: 127 kg Allergies Allergy/AdvReac Type Severity Reaction Status Date / Time bee venom protein (honey bee) Allergy Severe ANAPHYLAXIS Verified 07/22/18 09:18 iodine Allergy Severe ANAPHYLAXIS Verified 07/22/18 09:18 -SHELLFISH aspartame Allergy Unknown RASH Verified 07/22/18 09:18 colestipol Allergy Unknown RASH Verified 07/22/18 09:18 diphenhydramine Allergy Unknown HEAD GOES Verified 07/22/18 09:18 CRAZY-RINGING EARS,STRANGE doxycycline Allergy Unknown HIVES Verified 07/22/18 09:18 glimepiride Allergy Unknown RASH Verified 07/22/18 09:18 glyburide Allergy Unknown RASH Verified 07/22/18 09:18 hydroxyzine Allergy Unknown MENTAL Verified 07/22/18 09:18 CONFUSION metformin Allergy Unknown RASH Verified 07/22/18 09:18 pioglitazone Allergy Unknown RASH Verified 07/22/18 09:18 pseudoephedrine Allergy Unknown JITTERINESS Verified 07/22/18 09:18 rosuvastatin Allergy Unknown ITCHING Unverified 07/22/18 09:18 RASH shellfish derived Allergy Unknown SWELLING Verified 07/22/18 09:18 OF FACE AND MOUTH tramadol Allergy Unknown EARS RING, Verified 07/22/18 09:18 FUZZY VISION amitriptyline [From Elavil] AdvReac Unknown WT GAIN Verified 07/22/18 09:19 Medications Home Medications Medication Instructions Recorded Confirmed Last Taken atorvastatin 20 mg PO HS 05/03/18 07/22/18 Unknown cyclobenzaprine 10 mg PO BID PRN 05/03/18 07/22/18 Unknown diphenoxylate-atropine 2 tab PO TID PRN 05/03/18 07/22/18 Unknown furosemide 40 mg PO DAILY PRN 05/03/18 07/22/18 Unknown metaxalone 800 mg PO BID PRN 05/03/18 07/22/18 Unknown methscopolamine 2.5 mg PO TID PRN 05/03/18 07/22/18 Unknown omeprazole 20 mg PO BID 05/03/18 07/22/18 Unknown pramipexole 1 mg PO TID 05/03/18 07/22/18 Unknown quetiapine 200 mg PO HS #14 tab 05/09/18 07/22/18 Unknown acetaminophen [Tylenol Arthritis 1,300 mg PO Q12H PRN 07/22/18 07/22/18 Unknown Pain] aspirin [Aspir-81] 81 mg PO QAM 07/22/18 07/22/18 Unknown diclofenac sodium 2 g TOPICAL QID PRN 07/22/18 07/22/18 Unknown fluticasone [Flovent HFA] 1 puff INHALATION BID PRN 07/22/18 07/22/18 Unknown fluticasone-vilanterol [Breo 1 inh INHALATION QAM 07/22/18 07/22/18 Unknown Ellipta] insulin aspart U-100 [Novolog 10 - 20 unit SUBCUT QID 07/22/18 07/22/18 Unknown Flexpen U-100 Insulin] lactobacillus combination no.4 3,000 mmu cells PO QAM 07/22/18 07/22/18 Unknown [Probiotic] lisinopril 5 mg PO QAM 07/22/18 07/22/18 Unknown meloxicam 7.5 mg PO BID 07/22/18 07/22/18 Unknown multivitamin 2 tab PO QAM 07/22/18 07/22/18 Unknown ondansetron 4 mg PO Q6H PRN 07/22/18 07/22/18 Unknown pregabalin [Lyrica] 50 mg PO TID 07/22/18 07/22/18 Unknown ranitidine HCl [Zantac] 150 mg PO BID 07/22/18 07/22/18 Unknown insulin glargine U-300 conc 75 unit SUBCUT BID 08/05/18 08/05/18 Unknown [Mathew Burks U-300 Insulin] Past Medical History Medical History History of difficult intubation RIGHT SHOULDER SCOPE WITH RCR= 06/29/16= GLIDESCOPE #3 "GOOD VIEW", ETT 7 AT [facility] History of opioid abuse PER RECORDS Hypertension Anxiety Dyslipidemia Osteoporosis IBS (irritable bowel syndrome) DM type 2 (diabetes mellitus, type 2) IDDM Venous insufficiency GERD (gastroesophageal reflux disease) DJD (degenerative joint disease), cervical Depression Panic disorder Asthma Chronic back pain LOWER 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 Diverticular disease GERD (gastroesophageal reflux disease) CONTROLLED Migraine Neuropathy DIABETIC NEUROPATHY- FEET Osteoarthritis Temporomandibular joint disorder + CLICKING; NO LOCKING Past Family History Family History Sister Family history of diabetes mellitus Family hx of colon cancer Brother Family history of diabetes mellitus Grandmother (Maternal) Family history of diabetes mellitus Family/Other Family history of diabetes mellitus Other Diabetes Past Surgical History Surgical History S/P hysterectomy H/O colonoscopy S/P cholecystectomy H/O arthroscopic knee surgery LEFT History of colonoscopy History of esophagogastroduodenoscopy (EGD) History of repair of rotator cuff B/L History of total knee replacement LEFT Perianal abscess S/P DRAINAGE Past Anesthesia History Difficult Airway (RIGHT SHOULDER SCOPE WITH RCR= 06/29/16= GLIDESCOPE #3 "GOOD VIEW", ETT 7 AT [facility]) and No Family Hx of Anesthesia Complications History of PONV No Motion Sickness Screening History of Motion Sickness: No Social History Smoking Status: Never smoker Do You Dip or Chew Tobacco: No Hx Alcohol Use: No Hx Substance Use: No Exercise / Class Metabolic Activity III < 4 Walking/Shop/Light housework Review of Systems Patient denies chest pain, shortness of breath, cough, wheezing, palpitations. Physical Exam Vital Signs VITALS BP 122/81 P 84 TEMP 98.2 SP02 93%RA RESP 18 PHYSICAL Full neck and c-spine range of motion. Full TMJ range of motion. TMD 3 finger breaths Mallampati Score 2 Dentition: intact Lungs: clear throughout to auscultation Cardiac: regular rate and rhythm, no murmurs noted Spine: cervical fat pad noted Carotid arteries: negative bruit Extremities: no edema Short thick neck Testing Electrocardiogram Date: 08/06/18 Findings: + NSR @ (79) Chest X-Ray Date: 08/06/18 Findings: + NAD Chronic interstitial thickening is similar to previous. There is no airspace consolidation or pleural effusion. A calcified granuloma is seen at the left lung base. Echocardiogram Date: 05/04/18 EF 60-65%. No RWMA. No significant valvular disease. Technically limited study. Laboratory Results 08/06/18 11:25 08/06/18 11:25 Blood Type B Positive 08/06/18 11:25 Antibody Screen NEGATIVE 08/06/18 11:25 PT 10.3 Seconds (9.0-12.0) 08/06/18 11:25 INR 1.0 (0.9-1.1) 08/06/18 11:25 APTT 24.8 Seconds (21.0-31.0) 08/06/18 11:25 Hemoglobin A1c 6.6 % (4.5-5.6) H 08/06/18 11:25
--- NOTE | 2018-08-06 12:12 | XRay Report ---
TWO VIEW CHEST CLINICAL HISTORY: Preoperative examination. FINDINGS: PA and lateral chest radiographs are compared to study dated 05/04/2018. The cardiomediastin al silhouette is unremarkable. Chronic interstitial thickening is similar to previous. There is no ai rspace consolidation or pleural effusion. A calcified granuloma is seen at the left lung base. There is no pneumothorax. The skeletal structures are osteopenic. Degenerative change is noted throughout t he thoracic spine. The bony thorax appears intact. Cholecystectomy clips are noted. IMPRESSION: No active disease in the chest. Electronically signed by: Leonard Landa M.D. 08/06/2018 12:11 PM
[2018-08-06 12:14] LABS: Basophils # (auto) 0.01 K/uL (0-0.2); Basophils % (auto) 0.1 %; Eosinophils # (auto) 0.08 K/uL (0-0.5); Eosinophils % (auto) 1.2 %; Hematocrit (blood only) 39.1 % (37-47); Hemoglobin 12.5 g/dL (12.0-16.0); Immature Granulocytes # (auto) 0.02 K/uL (0.00-0.02); Immature Granulocytes % (auto) 0.3 %; Lymphocytes # (auto) 1.22 K/uL (1.2-3.4); Mean Corpuscular Volume 90.3 fL (80-100); Mean Platelet Volume 11.6 fL (7.4-10.4); Monocytes # (auto) 0.52 K/uL (0.11-0.59); Monocytes % (auto) 7.7 %; Neutrophils # (auto) 4.91 K/uL (1.4-6.5); Neutrophils % (auto) 72.7 %; Platelet Count 297 K/uL (130-400); RDW Coefficient of Variation 15.9 % (11.5-14.5); RDW Standard Deviation 53.2 fL (36.4-46.3); Red Blood Count 4.33 M/uL (4.2-5.4); White Blood Count 6.76 K/uL (4.8-10.8)
[2018-08-06 12:28] LABS: BUN Creatinine Ratio 16.3 (10-20); Blood Urea Nitrogen 16 mg/dl (7-18); C Reactive Protein < 0.29 mg/dl (0-0.29); Calcium 8.8 mg/dl (8.5-10.1); Carbon Dioxide 27 mmol/L (21-32); Chloride 103 mmol/L (98-107); Creatinine Clr Calc Pharmacy 78.7 ml/min; Est GFR (African American) 68.8; Est GFR (Non-African American) 59.4; Glucose 95 mg/dl (70-99); Potassium 3.9 mmol/L (3.5-5.1); Sodium 135 mmol/L (136-145)
[2018-08-06 12:31] LABS: Partial Thromboplastin Ratio 0.9; Partial Thromboplastin Time 24.8 Seconds (21.0-31.0); Prothrombin Time 10.3 Seconds (9.0-12.0)
[2018-08-06 12:56] LABS: Estimated Average Glucose 143 mg/dl; Hemoglobin A1C 6.6 % (4.5-5.6)
--- NOTE | 2018-08-20 13:14 | History and Physical Report ---
DATE OF ADMISSION: 08/26/2018 CHIEF COMPLAINT: Right knee pain and discomfort. HISTORY OF PRESENT ILLNESS: This is a 68-year-old white female who presents for surgical treatment of her right knee. She had a long history of knee problems and had her left knee replaced back in February of 2015. She has done well from that side. She has developed increased pain and discomfort in her right knee. I have seen her on multiple occasions and injected her knee which provided some temporary relief only. This has become less successful over time. Pain has become more debilitating. She has global pain. The more she walks, the more she hurts. She has difficulty walking more than a couple blocks. She has nighttime pain. She would like to proceed with knee replacement. Of note, the patient does have a history of MRSA infection in the past. PAST MEDICAL HISTORY: 1. Hypertension. 2. Elevated cholesterol. 3. Anxiety. 4. Asthma. 5. Diabetes. 6. Gastroesophageal reflux disease. 7. Obesity with a BMI of 43 and a recent 45-pound weight loss. 8. History of kidney failure, on multiple medicines, but now back to normal. PAST SURGICAL HISTORY: Previous surgeries include: 1. Left knee replacement done on 03/15/2015. 2. Hysterectomy. 3. Cholecystectomy. ALLERGIES: BEE STINGS. CURRENT MEDICINES: Include: 1. Flovent 2 puffs as needed. 2. Breo 100/25. 3. Klonopin 0.5 mg 3 times a day. 4. Seroquel 200 mg at nighttime. 5. Lyrica 50 mg at night. 6. Lisinopril 5 mg q.a.m. 7. Meloxicam 1-2 tablets a day. 8. Zantac 150 mg twice a day. 9. Pramipexole 1 mg 3 times a day. 10. Aspirin 81 mg a day. 11. Atorvastatin 20 mg at nighttime. 12. Omeprazole 20 mg a day. 13. Methscopolamine 2.5 mg 3 times a day. 14. NovoLog insulin. 15. Toujeo 75 units in the morning and evening. 16. Extra-strength Tylenol. SOCIAL HISTORY: A 68-year-old white female. She is from [place]. Lives with one of her children. Does not smoke. FAMILY HISTORY: Noncontributory. REVIEW OF SYSTEMS: Significant for diabetes, pretty well controlled. Denies any chest pain or shortness of breath. No history of DVT or PE. She has had recent intentional weight loss. PHYSICAL EXAMINATION: GENERAL: Physical examination shows a pleasant 68-year-old white female. HEENT: Benign. NECK: Supple. No lymphadenopathy. LUNGS: Clear to auscultation. HEART: Regular rate and rhythm. ABDOMEN: Soft, nontender, nondistended. EXTREMITIES: Grossly neurovascularly intact except as follows: Examination of the right knee and leg reveals the patient walks with a significant limp. She walks with bit of a stiff knee gait. She has got a small to moderate sized knee effusion. She is tender diffusely around the knee. Range of motion is 5 degrees short of full extension and 120 degrees of flexion. There is no instability. No pain with hip motion. Examination of the left knee reveals well-healed incision. Range of motion 0-120. Good straight leg raise. X-RAYS: X-ray of the right knee reviewed. Shows advanced right knee DJD. She has complete loss of medial joint space. She has some tibial femoral subluxation. She has tricompartment disease. Significant patellofemoral disease as well. ASSESSMENT: A 68-year-old white female status post left knee replacement with multiple underlying medical issues with advanced right knee degenerative joint disease. She has failed conservative treatment and would like to have her right knee replaced. PLAN: We are going to proceed with right total knee replacement. The risks and benefits of this procedure were explained to the patient and include but not limited to DVT, PE, , infection, neurological injury, vascular injury, bleeding problem, pain, limited range of motion, stiffness, failure to relieve symptoms, incomplete relief of symptoms, need for further surgery in the future, fracture, leg length inequality, nerve palsy, etc. The patient understands and desires to proceed. Informed consent was obtained. We did talk about holding her lisinopril in the morning of surgery. She does not do well with tramadol and will likely use oxycodone for pain. She does have this history of MRSA infections, so we are going to give her vancomycin and Ancef preoperatively.
[~2018-08-26 07:56] MED LIST changes: +ACETAMINOPHEN 500 MG TAB PO SCH; -ATOR-22 PO; +BUPIVACAINE 0.5 % 5 MG/1 ML PF 10ML VIAL ONE; +BUPIVACAINE LIPOSOME/PF 266 MG, BUPIVACAINE/EPINEPHRINE 50 ML, SODIUM CHLORIDE 0.9% 30 ... INFIL SCH; +CEFAZOLIN 3000MG 65 ML IV SCH; -CITA40TA4 PO; -DIPH-416 PO; +FAMOTIDINE 20 MG TAB PO SCH; -FLVHFA110 INH; -FRS/40 PO; +GABAPENTIN 300 MG PO SCH; -HYDR-5688 PO; -INSDGIPEN SQ; -KLN/5 PO; -LISI-461 PO; -LISI-729 PO; +LR 500ML BOLUS, THEN 15ML/HR IV SCH; +LR 60ML/HR IV SCH; -METH1TAB7 PO; +METOCLOPRAMIDE HCL 10 MG TABLET PO SCH; +MIDAZOLAM HCL 1 MG/ML 2ML VIAL ONE; -MULT-506 PO; -NVLG SC; -PRAM0.1212 PO; -PREG1CAP70 PO; -PRLSR20 PO; -QUET400T PO; -RIFA550T2 PO; +ROPIVACAINE 0.5% 5 MG/ML 30 ML VIAL ONE; +SCOPOLAMINE 1.5 MG TDSY TD SCH; +TRANEXAMIC ACID 1,000 MG **IV Intra-op IV SCH; +VANCOMYCIN HCL 2,000 MG in SODIUM CHLORIDE 0.9% 500 ML IV SCH; -VNTHFA/IN INH; +fentaNYL citrate 100 MCG/2 ML VIAL ONE
--- NOTE | 2018-08-26 09:02 | History & Physical Bridge Note ---
Date of Service August 26, 2018 History & Physical Bridge Note I have examined the patient, reviewed the History & Physical and in the interval since the performance of the History & Physical I have noted the following changes of clinical significance: no changes noted
[2018-08-26] MEDS ORDERED: ATROPINE SULFATE 0.1 MG/ML 10ML SYR IV PRN (09:53)
[2018-08-26] MEDS ORDERED: ePHEDrine sulfate 50 MG/ML AMP IV PRN (09:53)
[2018-08-26] MEDS ORDERED: BACITRACIN INJ 50,000 UNIT VIAL ONE (10:54)
[2018-08-26] MEDS ORDERED: BUPIVACAINE LIPOSOME 1.3% 266 MG/20 ML VIAL ONE (10:54)
[2018-08-26] MEDS ORDERED: SODIUM CHLORIDE 0.9% PF 50 ML VIAL ONE (10:54)
[2018-08-26] MEDS ORDERED: BUPIVACAINE 0.25% 30 ML VIAL ONE (10:54)
[2018-08-26] MEDS ORDERED: EPINEPHrine INJ 1 MG/ML AMP ONE (10:54)
[2018-08-26] MEDS ORDERED: VANCOMYCIN HCL 1000MG/20ML VIAL ONE (11:15)
[2018-08-26] MEDS ORDERED: PROPOFOL IV EMULSION 10 MG/ML 20 ML VIAL IV ONE (12:46)
[2018-08-26] MEDS ORDERED: MIDAZOLAM HCL 1 MG/ML 2ML VIAL ONE (12:46)
[2018-08-26] MEDS ORDERED: LIDOCAINE HCL 2% 2 ML VIAL/AMP(20MG/ML) INFIL ONE (12:47)
[2018-08-26] MEDS ORDERED: PHENYLEPHRINE HCL 10 MG/ML VIAL ONE (12:47)
[2018-08-26] MEDS ORDERED: ONDANSETRON INJ 2 MG/ML 2 ML VIAL ONE (12:47)
[2018-08-26] MEDS ORDERED: PHENYLEPHRINE 100MCG/ML 5ML SYR ONE (12:48)
--- NOTE | 2018-08-26 12:55 | Post Operative Brief Note ---
Immediate Post Op Note v1 Date of Surgery August 26, 2018 Pre & Post Diagnosis Operation Date: 08/26/18 10:40 Pre-Op Diagnosis: Right Knee Advanced Degenerative Joint Disease Post-Op Diagnosis: Right Knee Advanced Degenerative Joint Disease Procedure Operation Date: 08/26/18 10:40 Actual Procedures p Right Total Knee Arthroplasty(Right) - Beni Titus MD Surgeon Beni Titus MD Deputy Administrator Shahnaz, PAC Estimated Blood Loss 50 Findings Consistent with Post-Op Diagnosis Fluids 1200 cc Specimens Right Knee Drains Fernandes Catheter (16 German fernandes catheter was inserted by FAUSTINO Alonzo, without difficulty, clear yellow urine obtained, output to be monitored by Anesthesia.) Anesthesia Type Spinal MAC Complications none Disposition Accompanied Patient To Recovery: No Disposition: Recovery Room
[2018-08-26] MEDS ORDERED: fentaNYL citrate 100 MCG/2 ML VIAL ONE (13:31)
[2018-08-26] MEDS: fentaNYL citrate 100 MCG/2 ML VIAL IV PRN ×3 (13:34→13:54)
--- NOTE | 2018-08-26 14:02 | Orthopedic Progress Note ---
Date of Service August 26, 2018 Assessment & Plan (1) Total knee replacement status: We will continue to follow this along. She can't feel touch yet in foot but does report this burning. She has good capillary refill. I did check on her a second time in pacu and she still had some burning in the right foot but states that it did improve some. Dr. Titus aware. Subjective I was called about Liane in pacu. She's complaining of burning in her right foot. Says it feels similar to her neuropathy symptoms but worse. Physical Exam Vital Signs (Past 24 Hours): Last Vital Signs Temp 36.6 C 08/26/18 13:01 Pulse 92 H 08/26/18 13:40 Resp 16 08/26/18 13:40 BP 101/55 L 08/26/18 13:40 Pulse Ox 96 08/26/18 13:40 Musculoskeletal: Right foot: not able to move toes or foot yet. She has brisk capillary refill. Dressing is appropriate, does not seem too tight. Reports that she cannot feel sensation to touch yet.
--- NOTE | 2018-08-26 14:05 | Anesthesiology Progress Note ---
Date of Service August 26, 2018 Anesthesia Post Procedure Vital Signs Vital Signs: Temp Pulse Pulse Resp BP Pulse Ox 08/26/18 13:50 89 16 119/71 93 08/26/18 13:40 92 H 16 101/55 L 96 08/26/18 13:30 90 16 144/70 H 98 08/26/18 13:20 90 16 108/63 98 08/26/18 13:10 90 16 125/68 98 08/26/18 13:01 36.6 C 94 H 16 101/55 L 95 08/26/18 08:35 36.0 C L 102 H 16 116/75 94 Pain Intensity Right Knee: Pain Intensity: 5 Notes Mental Status: alert / awake / arousable and participated in evaluation Patient Amnestic to Procedure: Yes Nausea / Vomiting: adequately controlled Pain: adequately controlled Airway Patency, RR, SpO2: stable & adequate BP & HR: stable & adequate Hydration State: stable & adequate Neuraxial Anesthesia: was administered and sensory block is resolving Anesthetic Complications: no major complications apparent
--- NOTE | 2018-08-26 14:09 | XRay Report ---
XR knee RT 2V routine HISTORY: 68 years-old Female Surgical Post Op right knee total joint arthroplasty. History of genita l disease. COMPARISON: None available TECHNIQUE: 2 views of the right knee FINDINGS: Right knee total joint arthroplasty with patellar resurfacing. Anterior midline skin spencer are note d along with expected postsurgical soft tissue swelling and deep tissue air. No acute fracture or ret ained foreign body. Satisfactory alignment. IMPRESSION: Right knee total joint arthroplasty and patella resurfacing with satisfactory alignment. The above report was generated using voice recognition software. It may contain grammatical, syntax o r spelling errors. Electronically signed by: Caleb Campos M.D. 08/26/2018 2:07 PM
[2018-08-26] MEDS ORDERED: PHARMACY GLYCEMIC MGMT CONSULT STA (14:35)
[2018-08-26] MEDS ORDERED: BISACODYL 10 MG SUPP PR PRN (14:35)
[2018-08-26] MEDS ORDERED: DICLOFENAC SOD 1% GEL 100 GM TUBE EXT PRN (14:35)
[2018-08-26] MEDS ORDERED: ONDANSETRON 4 MG OD TAB PO PRN (14:35)
[2018-08-26] MEDS ORDERED: METOCLOPRAMIDE HCL INJ 5 MG/ML 2 ML VIAL IV PRN (14:35)
[2018-08-26] MEDS ORDERED: ONDANSETRON INJ 2 MG/ML 2 ML VIAL IV PRN (14:35)
[2018-08-26] MEDS ORDERED: FUROSEMIDE 40 MG TAB PO PRN (14:35)
[2018-08-26] MEDS ORDERED: VANCOMYCIN CONSULT ACTIVE PRN (14:35)
[2018-08-26] MEDS ORDERED: GLUCOSE 10 TABS/TUBE PO PRN (14:35)
[2018-08-26] MEDS ORDERED: NALOXONE HCL 0.4 MG/1 ML VIAL/CARP IV PRN (14:35)
[2018-08-26] MEDS ORDERED: DEXTROSE 50% 50 ML SYRINGE IV PRN (14:35)
[2018-08-26] MEDS ORDERED: GLUCAGON FOR INJ 1 MG VIAL SQ PRN (14:35)
[2018-08-26] MEDS ORDERED: HYDROmorphone INJ 0.5 MG/0.5 ML SYR IV PRN (14:35)
[2018-08-26] MEDS ORDERED: ALUMINUM/MAGNESIUM SUSP 30 ML UDC PO PRN (14:35)
[2018-08-26] MEDS ORDERED: MAGNESIUM HYDROXIDE SUSP 30 ML UDC PO PRN (14:35)
[2018-08-26] MEDS ORDERED: DIPHENOXYLATE/ATROPINE 2.5/0.025MG TAB PO PRN (14:35)
[2018-08-26] MEDS ORDERED: FLUTICASONE HFA 220 MCG INHALER INH PRN (14:35)
[2018-08-26] MEDS ORDERED: METAXALONE 800 MG TABLET PO PRN (14:35)
[2018-08-26] MEDS ORDERED: GLUCOSE 40% GEL 15 GM TUBE PO PRN (14:35)
[2018-08-26] MEDS ORDERED: PHARMACY GLYCEMIC MGMT CONSULT PRN (14:44)
--- NOTE | 2018-08-26 14:44 | Operative Report ---
DATE OF OPERATION: 08/26/2018 SURGEON: Beni Titus MD [employer] REPRESENTATIVE: FAUSTINO Harkins PREOPERATIVE DIAGNOSIS: Right knee degenerative joint disease. POSTOPERATIVE DIAGNOSIS: Right knee degenerative joint disease. PROCEDURE PERFORMED: Right cemented posterior stabilized total knee arthroplasty. COMPLICATIONS: None. ESTIMATED BLOOD LOSS: 50 mL. FLUID REPLACEMENT: 1200 mL crystalloid fluid replacement. TOURNIQUET TIME: 60 minutes at 300 mmHg. ANESTHESIA: Spinal with adductor canal block. DRAINS: None. SPECIMENS: Right knee sent for pathology. OPERATIVE INDICATIONS: The patient is a 68-year-old female with underlying diabetes with a history of a left knee replacement done several years ago, who has developed increasing pain and discomfort in her right knee over the past several years. She has been through extensive conservative treatment in the past that have become less successful. X-rays showed advanced knee DJD. She elected to proceed with surgical treatment. OPERATIVE FINDINGS: Operative findings revealed advanced right knee DJD. She had grade 4 changes in all 3 compartments pretty severe, but most severe in the medial and patellofemoral compartments with eburnation of both surfaces. She had more spotty changes laterally. She had osteophytes in all 3 compartments. Some moderate osteopenia. She had moderate knee effusion. OPERATIVE IMPLANTS: Operative implants consisted of: 1. A Biomet Vanguard size 62.5 right posterior stabilized femoral component. 2. A Biomet size 71 tibial tray. 3. A 12 mm posterior stabilized polyethylene insert. 4. A 31 x 8 all poly patella. OPERATIVE PROCEDURE: The patient was taken to the operating room, identified and placed on the operative table in supine position. All contact areas were appropriately padded. IV antibiotics provided by anesthesia team. A spinal anesthetic and adductor canal block had been provided in the holding area. Schaefer catheter was placed in sterile fashion. A right thigh tourniquet was then placed and the right lower extremity was then prepped and draped in usual sterile fashion. The right leg was elevated and exsanguinated using Esmarch and tourniquet was placed at 300 mmHg. An anterior approach to the right knee was then performed through a longitudinal incision centered over the patella. Sharp dissection was carried through the subcutaneous tissues down to the level of the extensor mechanism. A medial parapatellar arthrotomy incision was made. Some subperiosteal dissection was carried out medially. The fat pad resected from beneath the patellar tendon. Lateral patellofemoral ligament was released. The patella was everted and knee was flexed. The osteophytes were taken off the distal femur. The ACL and PCL were then released from the distal femur. The tibia subluxated anteriorly. The external tibial alignment jig was then placed in the anterior face of the tibia and adjusted 14 mm medially. Proximal tibial cut was made to remove about 2 mm of bone from the most deficient aspect of the medial tibial side. Some osteophytes were taken off medial and posteromedially. Tibia was sized to a size 71. Attention was then drawn to the femur. The distal femur was entered with a sharp drill bit. Intramedullary canal was suctioned. A right 5-degree valgus cutting guide was placed. Distal femoral cutting block was pinned in place. Distal femoral cut was made to take an additional 5 mm of bone off the distal femur. She did have a flexion contracture preoperatively. We did need to take 5 mm in order to get just a little bit beyond the base of the notch area. The femur was then sized to a size 62.5. We did downsize this slightly. The AP cutting block was pinned parallel to the epicondylar axis, which was 5 degrees of external rotation. The anterior cut, anterior chamfer, posterior cut, posterior chamfer cuts were made. Box cutting guide was placed and adjusted slightly lateral and the box cut was made. The knee was flexed. The remnants of the medial and lateral menisci were excised. The osteophytes were taken off the posterior aspect of the femur. Trial femoral component was placed. Tibial tray was pinned in maximum external rotation and drill and stem punch were used to create defect in proximal tibia for the tibial tray. The knee was then trialed and the 12 mm insert fit most appropriately. Attention was then drawn to patella. The patella was cleaned of all soft tissues. Patella thickness measured 20 mm in thickness, it was cut down to 14. It was sized to a size 31 patella. Lug holes were drilled for 31 patella. Lateral osteophyte was removed. Patella button was placed. Knee was taken through range of motion and patella tracked nicely with no thumbs test. Attention was then turned toward placing the permanent components. All trial components were removed. A bone plug was placed in the distal femur. A double batch of Palacos G cement was mixed. 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 A Biomet Vanguard size 62.5 right posterior stabilized femoral component, a size 71 tibial tray, a 12 mm posterior stabilized polyethylene insert, and a 31 x 8 all poly patella then cemented in place. Knee was brought down into full extension until cement hardened. A final cement check was then performed. Pericapsular tissues were injected with a total of 100 mL of a combination of 20 mL Exparel, 30 mL of normal saline, 50 mL of 0.25% Marcaine with epinephrine. The patient did receive 1 gram of tranexamic acid. The tourniquet was then let down for a final tourniquet time of 60 minutes. Hemostasis was assured using electrocautery. The extensor mechanism was then closed with a combination of #1 PDS suture and #1 Vicryl suture in [id number] fashion. Extensor mechanism was checked and found to be intact. The subcutaneous tissue was then closed with #2 Dexon suture in a buried interrupted fashion. Skin was closed with skin spencer. Leg was then cleaned and dried and a sterile dressing of Xeroform, 4 x 4s, sterile cast padding and Bryant bandage were applied. The patient then transferred to the recovery room in stable condition. The patient tolerated the procedure well with no complications. All needle and sponge counts were correct at the end of the operation. I attest to the content of the Intraoperative Record and any orders documented therein. Any exception s are noted below.
[2018-08-26] MEDS ORDERED: INSULIN GLARGINE 100 UNIT/ML VIAL SC ONE (15:45)
--- NOTE | 2018-08-26 16:24 | Pharmacy Report ---
Pharmacy Glycemic Short Note 2 - Date of Service August 26, 2018 - Glycemic Short BSG Results (Last 24 hours): 08/26/18 08/26/18 08:23 13:07 POC Glucose 134 H 129 H OUTPATIENT ANTIDIABETIC REGIMEN: * Toujeo 75 units SQ BID * Aspart 10-20 units SQ QID * A1c 6.6% (08/06/18) ASSESSMENT: * 68 yr old T2DM female s/p R TKA * Patient is known to the glycemic service from past admission in April of 2019. Of note, her A1c has significantly improved and weight has significantly decreased since then (A1c 8.9-> 6.6, weight 142 kg -> 127 kg). During her previous admission, her insulin requirements decreased to 80 units/day compared to 210-250 units at home. * Her last dose of basal insulin was taken 08/25 @ 1900 (75 units) * I have ordered a one time dose of 75 units for now since patient is basal deficient at this point in time. Further Lantus dosing will be decreased to 35-40 units BID (based on needs of ~80 units/day). PLAN FOR INPATIENT GLYCEMIC CONTROL: * Basal insulin * Lantus 75 units SQ x 1, then per scale BID: * 35 units for BSG 140 mg/dL or less * 40 units for BSG > 140 mg/dL * Bolus insulin * NovoLog per scale ACHS or Q6hrs while NPO * Goal Range: Low 110 mg/dL - High 140 mg/dL * Correction Factor: 15 mg/dL/unit * Nutritional / Prandial insulin per carb ratio of 1 unit per 4 grams CHO consumed * Add overnight checks on POD #0 thank you
[2018-08-26] MEDS: CHECK SCOPOLAMINE PATCH PLACEMENT SCH (16:42)
[2018-08-26] MEDS: HYDROmorphone HCL 2 MG TAB PO PRN ×2 (16:49→23:24)
[2018-08-26] MEDS: PREGABALIN 50 MG CAP PO SCH ×2 (16:49→20:25)
[2018-08-26] MEDS: KETOROLAC TROMETHAMINE 15 MG/ML VIAL IV SCH ×2 (16:53→21:31)
[2018-08-26] MEDS: FERROUS GLUCONATE 324 MG TAB PO SCH (16:55)
[2018-08-26] MEDS: INSULIN ASPART 100 UNITS/ML 3 ML PEN SQ SCH ×2 (18:39→21:32)
[2018-08-26] MEDS: ACETAMINOPHEN 500 MG TAB PO SCH (18:44)
[2018-08-26] MEDS ORDERED: TRANEXAMIC ACID 1,000 MG in 0.9 % SODIUM CHLORIDE 100 ML IV SCH (19:00)
[2018-08-26] MEDS: CYCLOBENZAPRINE HCL 10 MG TAB PO PRN (19:35)
[2018-08-26] MEDS: SODIUM CHLORIDE 0.9% 1000ML 1,000 ML IV SCH ×2 (19:39→23:24)
[2018-08-26] MEDS: ASPIRIN 81 MG ECTAB PO SCH (19:42)
[2018-08-26] MEDS: DOCUSATE SODIUM 100 MG CAP PO SCH (19:42)
[2018-08-26] MEDS: ATORVASTATIN 20 MG TAB PO SCH (19:43)
[2018-08-26] MEDS: PRAMIPEXOLE DIHYDROCHLO 0.5 MG TAB PO SCH (19:44)
[2018-08-26] MEDS: PANTOprazole 40 MG TAB PO SCH (19:45)
[2018-08-26] MEDS: SENNA 8.6 MG TAB PO SCH (19:45)
[2018-08-26] MEDS: QUETIAPINE FUMARATE 100 MG TABLET PO SCH (19:46)
[2018-08-26] MEDS: clonazePAM 0.5 MG TAB PO PRN (20:25)
[2018-08-26] MEDS: TAPENTADOL HCL ER 50 MG TABCR PO SCH (20:25)
[2018-08-26] MEDS: CEFAZOLIN 2000MG 2,000 MG/15 ML SYR IV SCH (20:26)
[2018-08-26] MEDS ORDERED: INSULIN GLARGINE U U SQ SCH (21:00)
[2018-08-26] MEDS ORDERED: VANCOMYCIN HCL 2,000 MG in SODIUM CHLORIDE 0.9% 500 ML IV SCH (21:00)
[2018-08-27] MEDS: CHECK SCOPOLAMINE PATCH PLACEMENT SCH
[2018-08-27] MEDS: CARBOHYDRATES FOR HYPOGLYCEMIA PO PRN ×2 (00:04→00:21)
[2018-08-27] MEDS: INSULIN ASPART 100 UNITS/ML 3 ML PEN SQ SCH ×6 (00:05→21:17)
[2018-08-27] MEDS ORDERED: INSULIN ASPART 100 UNITS/ML 3 ML PEN SQ SCH (02:00)
[2018-08-27] MEDS: KETOROLAC TROMETHAMINE 15 MG/ML VIAL IV SCH ×4 (04:25→21:09)
[2018-08-27] MEDS: SODIUM CHLORIDE 0.9% 1000ML 1,000 ML IV SCH (04:48)
[2018-08-27] MEDS: HYDROmorphone HCL 2 MG TAB PO PRN ×5 (04:48→23:14)
[2018-08-27] MEDS: CEFAZOLIN 2000MG 2,000 MG/15 ML SYR IV SCH (04:48)
[2018-08-27] MEDS: ACETAMINOPHEN 500 MG TAB PO SCH ×3 (04:49→21:09)
[2018-08-27 06:08] LABS: Hematocrit (blood only) 34.3 % (37-47); Hemoglobin 10.8 g/dL (12.0-16.0); Mean Corpuscular Hgb Conc 31.5 g/dL (32-36); Mean Corpuscular Volume 87.9 fL (80-100); Mean Platelet Volume 10.5 fL (7.4-10.4); Platelet Count 207 K/uL (130-400); RDW Coefficient of Variation 15.6 % (11.5-14.5); RDW Standard Deviation 50.4 fL (36.4-46.3); White Blood Count 6.39 K/uL (4.8-10.8)
[2018-08-27 06:43] LABS: BUN Creatinine Ratio 11.7 (10-20); Calcium 8.6 mg/dl (8.5-10.1); Creatinine Clr Calc Pharmacy 97.3 ml/min; Est GFR (Non-African American) 76.8; Potassium 3.9 mmol/L (3.5-5.1)
[2018-08-27] MEDS: MULTIVITAMIN TAB PO SCH (07:55)
[2018-08-27] MEDS: ASPIRIN 81 MG ECTAB PO SCH ×2 (07:55→21:07)
[2018-08-27] MEDS: FERROUS GLUCONATE 324 MG TAB PO SCH ×2 (07:56→17:31)
[2018-08-27] MEDS: PRAMIPEXOLE DIHYDROCHLO 0.5 MG TAB PO SCH ×3 (07:56→21:08)
[2018-08-27] MEDS: PANTOprazole 40 MG TAB PO SCH ×2 (07:56→21:08)
[2018-08-27] MEDS: FLUTICASONE/VILANTEROL INHALER INH SCH (07:57)
[2018-08-27] MEDS: CYCLOBENZAPRINE HCL 10 MG TAB PO PRN (07:58)
[2018-08-27] MEDS: PREGABALIN 50 MG CAP PO SCH ×3 (07:58→21:08)
[2018-08-27] MEDS: TAPENTADOL HCL ER 50 MG TABCR PO SCH ×2 (07:58→21:08)
[2018-08-27] MEDS: LACTOBACILLUS ACIDOPHILUS 1 GM PACK PO SCH (07:58)
[2018-08-27] MEDS: DOCUSATE SODIUM 100 MG CAP PO SCH ×2 (07:59→21:07)
[2018-08-27] MEDS: LISINOPRIL 5 MG TAB PO SCH (08:00)
--- NOTE | 2018-08-27 08:03 | Anesthesiology Progress Note ---
Date of Service August 27, 2018 Anesthesia Post Procedure Vital Signs Vital Signs: Temp Pulse Pulse Pulse Resp BP Pulse Ox 08/27/18 07:48 37.5 C 115 H 19 129/65 91 08/27/18 02:34 37.0 C 97 H 14 133/83 94 08/26/18 23:13 37.0 C 83 15 117/74 94 08/26/18 20:10 36.4 C L 83 17 99/68 L 97 08/26/18 17:28 36.4 C L 86 17 123/74 97 08/26/18 16:35 85 14 99/64 L 95 08/26/18 16:15 36.4 C L 84 18 121/59 L 93 08/26/18 15:26 36.5 C 86 18 115/77 100 08/26/18 14:37 36.8 C 88 14 121/73 99 08/26/18 14:20 90 16 112/90 98 08/26/18 14:10 90 16 111/74 96 08/26/18 14:00 36.2 C L 90 16 112/61 96 08/26/18 13:50 89 16 119/71 93 08/26/18 13:40 92 H 16 101/55 L 96 08/26/18 13:30 90 16 144/70 H 98 08/26/18 13:20 90 16 108/63 98 08/26/18 13:10 90 16 125/68 98 08/26/18 13:01 36.6 C 94 H 16 101/55 L 95 08/26/18 08:35 36.0 C L 102 H 16 116/75 94 Pain Intensity Right Knee: Pain Intensity: 8 Bilateral Foot: Pain Intensity: 3 Notes Mental Status: alert / awake / arousable and participated in evaluation Patient Amnestic to Procedure: Yes Nausea / Vomiting: adequately controlled Pain: see Notes below Airway Patency, RR, SpO2: stable & adequate BP & HR: stable & adequate Hydration State: stable & adequate Neuraxial Anesthesia: was administered and sensory block resolved Anesthetic Complications: no major complications apparent Notes: patient c/o bad knee pain (8/10) spreading up into the back. Tacho has not yet been to see patient but RN and patient aware of need to notify him of uncontrolled pain/ location of pain.
[2018-08-27] MEDS ORDERED: MULTIVITAMIN PO SCH (09:00)
[2018-08-27] MEDS ORDERED: INSULIN GLARGINE 100 UNIT/ML VIAL SC SCH (09:00)
--- NOTE | 2018-08-27 11:15 | Pharmacy Report ---
Pharmacy Glycemic Short Note 2 - Date of Service August 27, 2018 - Glycemic Short BSG Results (Last 24 hours): 08/26/18 08/26/18 08/26/18 13:07 17:31 20:41 Glucose POC Glucose 129 H 161 H 158 H 08/27/18 08/27/18 08/27/18 00:02 00:04 00:20 Glucose POC Glucose 63 L* 69 L* 60 L* 08/27/18 08/27/18 08/27/18 00:37 02:03 04:11 Glucose POC Glucose 75 125 H 144 H 08/27/18 08/27/18 05:44 07:52 Glucose 137 H POC Glucose 154 H OUTPATIENT ANTIDIABETIC REGIMEN: * Toujeo 75 units SQ BID * Aspart 10-20 units SQ QID * A1c 6.6% (08/06/18) ASSESSMENT: * 68 yr old T2DM female s/p R TKA * Patient is known to the glycemic service from past admission in April of 2019. Of note, her A1c has significantly improved and weight has significantly decreased since then (A1c 8.9-> 6.6, weight 142 kg -> 127 kg). During her previous admission, her insulin requirements decreased to 80 units/day compared to 210-250 units at home. * Her last dose of basal insulin was taken 08/25 @ 1900 (75 units) * I have ordered a one time dose of 75 units for now since patient is basal deficient at this point in time. Further Lantus dosing will be decreased to 35-40 units BID (based on needs of ~80 units/day). 08/27: * Patient received total of 95 units of insulin yesterday, of which 75 units were basal insulin * Fasting this am 154 mg/dL - however patient BSGs low overnight at 63 mg/dL and 69 mg/dL - unclear to reasoning/loosened CF/CR for this morning; did treat with some juice * Nurse states that patient decided to take her own insulin this morning. States they were checking her morning BSG and patient told nurse that she took her own Toujeo 74 units to "make it easier for us". Emphasized importance to patient to not take her own medications for safety reasons. Plan is to have patient send her Toujeo pen home with family. * Confirmed with nurse patient has diet ordered as anticipate BSGs to likely trend down with this higher dosing of insulin this morning. * Went in and spoke with patient to reemphasize not taking her home insulin and that we will manage it for her. When asked about BSGs at home she states that her BSGs range from 60s - 200s. She follows Dr. Chris Asencio for her diabetes outpatient and states she was recently in there and he kept her insulin dosing the same. Asked if she had told him about having low BSGs in 60s and she states she did not. Since last admission she has lost about 30 lbs and A1C has improved. States she does use short acting insulin scale, but she does her own thing and does not follow her PCP's recommendations. Anticipate her needs to be less than her home dosing - will continue to follow however will likely need adjustments to her insulin regimen on discharge and close follow up outpatient. PLAN FOR INPATIENT GLYCEMIC CONTROL: * Basal insulin * Patient took home Toujeo this morning 74 units x 1 * Will continue to hold further Lantus * Bolus insulin - loosen and add overnight checks * NovoLog per scale ACHS or Q6hrs while NPO * Goal Range: Low 110 mg/dL - High 140 mg/dL * Correction Factor: 20 mg/dL/unit * Nutritional / Prandial insulin per carb ratio of 1 unit per 6 grams CHO consumed thank you
--- NOTE | 2018-08-27 16:05 | Progress Note ---
DATE: 08/27/2018 SUBJECTIVE: A 68-year-old white female postop day #1 from right knee replacement. She has been pretty anxious at this hospital visit. She did get her Klonopin and is doing better since that. Complaining of quite a bit of pain in her entire right leg. No chest pain or shortness of breath. OBJECTIVE: VITAL SIGNS: Temperature 37.7. Vital signs stable. Some mild hypertension and tachycardia intermittently. PHYSICAL EXAMINATION: GENERAL: The patient is sitting up in her chair. She looks pretty comfortable, but is clearly pretty pessimistic about the outlook. EXTREMITIES: Examination of the right leg reveals the dressing to be clean, dry and intact. Leg is well aligned. She can dorsiflex and plantarflex her foot appropriately. She cannot quite do a straight leg raise. She is otherwise neurologically intact. LABORATORY DATA: Hemoglobin is 10.8. Hematocrit 34.3. Electrolytes are stable. ASSESSMENT: A 68-year-old white female postop day #1 from right knee replacement, doing okay. She has been fairly pessimistic the whole admission including even before surgery a bit. She seems to have a lot of anxiety. She is doing better since she took some Klonopin, which she takes at home. PLAN: 1. DVT prophylaxis including thigh-high TEDs, SCDs, and aspirin twice a day. 2. PT/OT. Weightbear as tolerated. Right total knee protocol. 3. Pain control. Will continue the current pain regimen. She does not do well with some meds but seems to be taking Dilaudid okay. 4. Disposition: She is hoping to be discharged to rehab. I think rehab would be appropriate for her considering her underlying social situation and mental situation.
[2018-08-27] MEDS: SENNA 8.6 MG TAB PO SCH (21:07)
[2018-08-27] MEDS: ATORVASTATIN 20 MG TAB PO SCH (21:08)
[2018-08-27] MEDS: QUETIAPINE FUMARATE 100 MG TABLET PO SCH (21:09)
[2018-08-27] MEDS ORDERED: INSULIN GLARGINE 100 UNIT/ML VIAL SC ONE (21:15)
[2018-08-28] MEDS: INSULIN ASPART 100 UNITS/ML 3 ML PEN SQ SCH ×6 (00:21→21:37)
[2018-08-28] MEDS: HYDROmorphone HCL 2 MG TAB PO PRN ×4 (03:26→17:07)
[2018-08-28] MEDS: KETOROLAC TROMETHAMINE 15 MG/ML VIAL IV SCH ×2 (04:14→09:19)
[2018-08-28] MEDS: ACETAMINOPHEN 500 MG TAB PO SCH ×3 (06:21→21:31)
--- NOTE | 2018-08-28 07:42 | Progress Note ---
DATE: 08/28/2018 SUBJECTIVE: A 68-year-old white female postop day 2 from right knee replacement. She is doing a bit better today. The pain is a little bit better controlled. She seems to be a bit more optimistic as well. Denies any chest pain or shortness of breath. Not feeling dizzy or lightheaded. OBJECTIVE: VITAL SIGNS: Temperature 36.3. Vital signs stable. GENERAL: Physical examination shows a pleasant, middle-aged female. She is lying in bed, seems a bit more comfortable today. Also, more optimistic. EXTREMITIES: Examination of the right leg reveals the dressing to be clean, dry and intact. Her leg is well aligned. Calf is soft and supple. She can dorsiflex and plantarflex her foot appropriately. She is neurologically intact. ASSESSMENT: A 68-year-old white female postop day 2 from right knee replacement, doing better. Seems more optimistic. Her pain is better controlled. She is neurologically intact. PLAN: 1. DVT prophylaxis including thigh-high TEDs, SCDs, and aspirin twice a day. 2. PT/OT. She is weight bear as tolerated. Right total knee protocol. 3. Pain control, doing pretty well with current pain regimen. Does not really tolerate narcotics well, but seems to be doing okay with Dilaudid. 4. Disposition: Plan to discharge to either rehab or correction facility. She does not feel like she is able to go home with the assistance that she has. Social service is working on that.
[2018-08-28] MEDS: PREGABALIN 50 MG CAP PO SCH ×3 (07:57→21:29)
[2018-08-28] MEDS: DOCUSATE SODIUM 100 MG CAP PO SCH ×2 (07:58→21:29)
[2018-08-28] MEDS: LACTOBACILLUS ACIDOPHILUS 1 GM PACK PO SCH (07:58)
[2018-08-28] MEDS: TAPENTADOL HCL ER 50 MG TABCR PO SCH ×2 (07:58→21:30)
[2018-08-28] MEDS: PRAMIPEXOLE DIHYDROCHLO 0.5 MG TAB PO SCH ×3 (07:59→21:30)
[2018-08-28] MEDS: FERROUS GLUCONATE 324 MG TAB PO SCH ×2 (07:59→17:09)
[2018-08-28] MEDS: MULTIVITAMIN TAB PO SCH (07:59)
[2018-08-28] MEDS: LISINOPRIL 5 MG TAB PO SCH (07:59)
[2018-08-28] MEDS: ASPIRIN 81 MG ECTAB PO SCH ×2 (07:59→21:29)
[2018-08-28] MEDS: PANTOprazole 40 MG TAB PO SCH ×2 (07:59→21:30)
[2018-08-28] MEDS: FLUTICASONE/VILANTEROL INHALER INH SCH (08:02)
[2018-08-28] MEDS ORDERED: INSULIN GLARGINE SOLOSTAR 100 UNITS/ML 3 ML PEN SC STA ×2 (09:14→14:41)
--- NOTE | 2018-08-28 14:59 | Pharmacy Report ---
Pharmacy Glycemic Short Note 2 - Date of Service August 28, 2018 - Glycemic Short BSG Results (Last 24 hours): 08/27/18 08/27/18 08/28/18 17:07 20:13 00:17 POC Glucose 133 H 257 H 141 H 08/28/18 08/28/18 08/28/18 04:09 07:51 12:05 POC Glucose 107 H 124 H 222 H OUTPATIENT ANTIDIABETIC REGIMEN: * Toujeo 75 units SQ BID * Aspart 10-20 units SQ QID * A1c 6.6% (08/06/18) ASSESSMENT: * Pt's BSGs hyperglycemic this afternoon. Likely 2/2 to carb heavy breakfast. Pt verbalized this morning that she is not to administer her home Rx of Toujeo. PLAN FOR INPATIENT GLYCEMIC CONTROL: * Basal insulin Lantus per scale * BSGs <140mg/dL give 55 units * BSGs 140-200mg/dL give 65 units * BSGs > 200mg/dL give 75 units, home Rx * Bolus insulin - loosen and add overnight checks * NovoLog per scale ACHS or Q6hrs while NPO * Goal Range: Low 110 mg/dL - High 140 mg/dL * Correction Factor: 20 mg/dL/unit * Nutritional / Prandial insulin per carb ratio of 1 unit per 6 grams CHO consumed
[2018-08-28] MEDS ORDERED: INSULIN GLARGINE SOLOSTAR 100 UNITS/ML 3 ML PEN SC SCH (21:00)
[2018-08-28] MEDS: SENNA 8.6 MG TAB PO SCH (21:28)
[2018-08-28] MEDS: ATORVASTATIN 20 MG TAB PO SCH (21:29)
[2018-08-28] MEDS: QUETIAPINE FUMARATE 100 MG TABLET PO SCH (21:31)
[2018-08-29] MEDS: HYDROmorphone HCL 2 MG TAB PO PRN ×3 (04:46→14:44)
[2018-08-29] MEDS: ACETAMINOPHEN 500 MG TAB PO SCH ×2 (05:55→13:56)
[2018-08-29] MEDS ORDERED: INSULIN GLARGINE SOLOSTAR 100 UNITS/ML 3 ML PEN SC SCH (09:00)
[2018-08-29] MEDS: ASPIRIN 81 MG ECTAB PO SCH (09:22)
[2018-08-29] MEDS: PREGABALIN 50 MG CAP PO SCH ×2 (09:22→13:56)
[2018-08-29] MEDS: FERROUS GLUCONATE 324 MG TAB PO SCH (09:22)
[2018-08-29] MEDS: TAPENTADOL HCL ER 50 MG TABCR PO SCH (09:22)
[2018-08-29] MEDS: DOCUSATE SODIUM 100 MG CAP PO SCH (09:22)
[2018-08-29] MEDS: MULTIVITAMIN TAB PO SCH (09:23)
[2018-08-29] MEDS: PANTOprazole 40 MG TAB PO SCH (09:23)
[2018-08-29] MEDS: PRAMIPEXOLE DIHYDROCHLO 0.5 MG TAB PO SCH ×2 (09:23→13:56)
[2018-08-29] MEDS: LISINOPRIL 5 MG TAB PO SCH (09:24)
[2018-08-29] MEDS: FLUTICASONE/VILANTEROL INHALER INH SCH (09:26)
[2018-08-29] MEDS: LACTOBACILLUS ACIDOPHILUS 1 GM PACK PO SCH (09:26)
[2018-08-29] MEDS: INSULIN ASPART 100 UNITS/ML 3 ML PEN SQ SCH ×2 (09:28→12:49)
--- NOTE | 2018-08-29 10:55 | Pharmacy Report ---
Pharmacy Glycemic Short Note 2 - Date of Service August 29, 2018 - Glycemic Short BSG Results (Last 24 hours): 08/28/18 08/28/18 08/28/18 12:05 16:58 20:14 POC Glucose 222 H 124 H 164 H 08/29/18 08:19 POC Glucose 139 H OUTPATIENT ANTIDIABETIC REGIMEN: * Toujeo 75 units SQ BID * Aspart 10-20 units SQ QID * A1c 6.6% (08/06/18) ASSESSMENT: 08/29 * Pt's BSG 177 mg/dL this AM after receiving a total of 120 units of basal insulin yesterday. 08/28 * Pt's BSGs hyperglycemic this afternoon. Likely 2/2 to carb heavy breakfast. Pt verbalized this morning that she is not to administer her home Rx of Toujeo. PLAN FOR INPATIENT GLYCEMIC CONTROL: * Basal insulin- * will increase to Lantus 65 units BID to correct for AM hyperglycemia * Bolus insulin - loosen and add overnight checks * NovoLog per scale ACHS or Q6hrs while NPO * Goal Range: Low 110 mg/dL - High 140 mg/dL * Correction Factor: 20 mg/dL/unit * Nutritional / Prandial insulin per carb ratio of 1 unit per 6 grams CHO consumed
[2018-08-29] MEDS: clonazePAM 0.5 MG TAB PO PRN (11:16)
--- NOTE | 2018-08-29 13:07 | Progress Note ---
DATE: 08/29/2018 SUBJECTIVE: A 68-year-old white female postop day 3 from a right knee replacement. Seems to be getting a little bit better daily. Still a little bit pessimistic attitude. She is frustrated that she cannot do a leg lift on her own. She describes a lot of aching in her quad area. No chest pain or shortness of breath. Not feeling dizzy or lightheaded. OBJECTIVE: VITAL SIGNS: Temperature 37.2. Vital signs stable. GENERAL: Physical examination shows a pleasant, middle-aged female. She is sitting up in her bed. Does not look particularly uncomfortable. EXTREMITIES: Examination of the right leg reveals the dressing to be clean, dry and intact. Leg is well aligned. Calf is soft and supple. She can dorsiflex and plantarflex her foot appropriately. She is neurologically intact. ASSESSMENT: A 68-year-old white female postop day 3 from right knee replacement, doing pretty well clinically. She has a little bit of a pessimistic attitude and frustrated that she cannot lift her leg which is all normal. PLAN: I explained to her that inability to lift her leg at this point is normal and more the rule than the exception. We will continue DVT prophylaxis including thigh-high TEDs, SCDs, and aspirin twice a day. We will continue current pain regimen. She is hoping to be discharged to rehab. This is pending.
--- NOTE | 2018-09-01 16:48 | Discharge Summary ---
ADMITTING PHYSICIAN AND SURGEON: Dr. Beni Titus. ADMITTING DIAGNOSIS: Right knee degenerative joint disease. SURGERY PERFORMED: Right total knee arthroplasty. SECONDARY DIAGNOSES: Hypertension, elevated cholesterol, anxiety, asthma, diabetes, gastroesophageal reflux disease, obesity, history of kidney failure. CONSULTS: None obtained. HISTORY AND PHYSICAL EXAMINATION: Well documented in the patient's chart. HOSPITAL COURSE: The patient was admitted on 08/26/2018 underwent total knee arthroplasty. She tolerated the procedure well. There were no complications. She was transferred to the PACU postoperatively and later to the orthopedic for further care. She was given Ancef for antibiotic prophylaxis, DEL stockings, SCDs and aspirin for DVT prophylaxis. Hemoglobin, hematocrit and vital signs were monitored during hospital stay and remained stable. She did not require any blood transfusions. There were no complications. By postoperative day 3 she was tolerating a diabetic diet. Pain was reasonably controlled with oral pain medicine. She was participating in physical therapy. On postop day 3 she was discharged and [facility]. She was given printed discharge instructions including new prescription for extra strength Tylenol, aspirin, iron supplement, hydromorphone. Continue her home medications with the exception of her home dose of Tylenol, which was changed and Vicodin which was stopped. Continue physical therapy, weightbearing as tolerated, DEL stockings. Follow up approximately 2 weeks postoperatively or sooner if there are any problems or concerns.
== END 2018-08-29 16:19 | DRG 470 ==
LOC: ASU 07:56 → 3E 12:57

== ENCOUNTER 2021-09-14 13:30 | Inpatient (IN) ==
[2021-09-14] MEDS ORDERED: dexAMETHasone**PF** 10 MG/ML VIAL IV ONE (13:51)
[2021-09-14] MEDS ORDERED: ALBUT/IPRATROP 3MG/0.5MG NEB 3 ML VIAL NEB ONE (13:51)
[2021-09-14] MEDS ORDERED: SODIUM CHLORIDE 0.9% 1000ML 1,000 ML IV ONE (13:53)
--- NOTE | 2021-09-14 13:58 | Emergency Department Note ---
Impression & Plan Hypoxia, SOB (shortness of breath), Asthma exacerbation, COVID-19 ED Provider Note NAME: EVA FOOTE AGE: 71 SEX: F : 1950 ARRIVES VIA: Walk-In INFORMANT: [Patient] ED PROVIDER(S): [Leonard Daly MD] CHIEF COMPLAINT: Asthma, short of breath HISTORY OF PRESENT ILLNESS: The patient is a 71-year-old female who has felt short of breath with some congestion for 6 days. For the first 2 days, she was able to maintain her breathing on her own with her at home medications. She does have a nebulizer. She went to urgent care a few days ago and was diagnosed with a bronchitis. She was placed on Zithromax and prednisone. She has become more short of breath. She also feels weak and has some diarrhea, she thinks that the diarrhea is from the Zithromax. Patient is not improving on the meds she was given, she did have a COVID test this week which was negative. She has not been tested for the flu. There has been no fever, no vomiting. Her chest feels tight, she does not really have chest pain. REVIEW OF SYSTEMS: See HPI for pertinent positives and negatives. A total of ten systems were reviewed and were otherwise negative. PMHx/PSHx: See Below SOCIAL HISTORY: See Below. PHYSICAL EXAM: GENERAL: Patient is in moderate respiratory distress. HEENT: No acute trauma, normocephalic atraumatic, mucous membranes moist, mild nasal congestion, no scleral icterus. NECK: No stridor, no adenopathy, no meningismus, trachea is midline. LUNGS: Accessory muscle use, increased respiratory rate, dry cough noted. She is wheezing throughout both the right and left lung. Breath sounds are diminished bilaterally. Moderate respiratory distress present. HEART: Rhythm seems regular but I cannot really assess for murmurs with the overriding lung sounds. ABDOMEN: Soft, nontender, bowel sounds positive, no hernias, no peritonitis. EXTREMITIES: No cyanosis or edema, full range of motion of all the joints without pain or difficulty, no signs for acute trauma. NEUROLOGIC: Oriented x 3, no acute motor or sensory deficits, no focal weakness. SKIN: No rash, no jaundice, no diaphoresis. DIFFERENTIAL DIAGNOSIS: Reactive airway disease, COVID-19, influenza, viral illness, pneumonia, pneumothorax, COPD, CHF, infection, dehydration, cardiac ischemia, pulmonary embolism, bronchitis, musculoskeletal, gastrointestinal, as well as other pathologies. EMERGENCY DEPARTMENT COURSE/PROCEDURES: ECG: Indication was shortness of breath. The ECG shows a normal sinus rhythm with a rate of 69. There is no ST elevation, no PVCs. The QTc is 390. Continuous Cardiac Monitoring: An order was placed for continuous cardiac monitoring. The monitor shows a rate of 102 with sinus tachycardia. Critical Care Note: I have personally spent 41 minutes of critical care time in the direct management of this patient. This includes bedside care, inte rpretation of diagnostic studies, and testing, discussion with consultants, patient, and family members, and other required patient management activities. This 41 minutes is in excess of all separately billable procedures. MEDICAL DECISION MAKING: There is no leukocytosis or concerning anemia. There is a normal platelet count. No significant electrolyte abnormality or renal failure. Lactic acid level is not elevated making severe sepsis less likely. No concerning liver enzyme elevation. ECG shows a sinus rhythm, no ischemia. Cardiac enzyme testing x1 is not consistent with acute cardiac injury. Respiratory bio fire testing returned positive for coronavirus as well as COVID-19. Chest film showed some parenchymal congestion throughout, no focal pneumonia. No pneumothorax. On exam, the patient was visibly short of breath, she was wheezing. She seemed in moderate respiratory distress. The patient was aggressively managed. She received a 1 hour DuoNeb. She was given oral Tylenol, IV saline, she received IV Decadron. With the above treatment, the patient has made improvement. She has required a low amount of O2 supplementation to keep her saturation adequate. The patient has COVID-19 as well as a another coronavirus. This has flared her asthma and led to her dyspnea, wheezing and hypoxia. I do think a hospital stay is warranted. I did speak with the patient and case fitter. The on-call hospitalist was consulted. 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 Depression Diverticular disease DJD (degenerative joint disease), cervical DM type 2 (diabetes mellitus, type 2) IDDM Dyslipidemia GERD (gastroesophageal reflux disease) GERD (gastroesophageal reflux disease) CONTROLLED History of opioid abuse PER RECORDS Hypertension IBS (irritable bowel syndrome) Migraine Neuropathy DIABETIC NEUROPATHY- FEET KATERIN (obstructive sleep apnea) Osteoarthritis Osteoporosis Panic disorder Pulmonary HTN RLS (restless legs syndrome) Temporomandibular joint disorder + CLICKING; NO LOCKING Venous insufficiency Surgical History (Updated 09/14/21 @ 17:10 by Marlee Law PA-C) H/O arthroscopic knee surgery LEFT H/O colonoscopy History of colonoscopy 02/2021, sigmoid diverticulosis, poor prep History of difficult intubation RIGHT SHOULDER SCOPE WITH RCR= 06/29/16= GLIDESCOPE #3 "GOOD VIEW", ETT 7 AT [facility] History of esophagogastroduodenoscopy (EGD) History of repair of rotator cuff B/L History of total knee replacement LEFT Perianal abscess S/P DRAINAGE S/P cholecystectomy S/P hysterectomy Family History Sister Family history of diabetes mellitus Family hx of colon cancer Brother Family history of diabetes mellitus Grandmother (Maternal) Family history of diabetes mellitus Family/Other Family history of diabetes mellitus Other Diabetes Social History Smoking Status: Never smoker Second Hand Exposure: No; Hx Alcohol Use: No Hx Substance Use: No Preferred Language: Greenlandic Communication Ability: Effective 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: No Beliefs That Will Affect Care: None marital status: Current Living Situation: Spouse and Family current occupational status: retired Feels Safe at Home: Yes Assistive Devices: Walker Allergies Allergies Allergy/AdvReac Type Severity Reaction Status Date / Time bee venom protein (honey bee) Allergy Severe ANAPHYLAXIS Verified 09/14/21 17:11 iodine Allergy Severe ANAPHYLAXIS Verified 09/14/21 17:11 -SHELLFISH aspartame Allergy Unknown RASH Verified 09/14/21 17:11 colestipol Allergy Unknown RASH Verified 09/14/21 17:11 doxycycline Allergy Unknown HIVES Verified 09/14/21 17:11 glimepiride Allergy Unknown RASH Verified 09/14/21 17:11 glyburide Allergy Unknown RASH Verified 09/14/21 17:11 metformin Allergy Unknown RASH Verified 09/14/21 17:11 ondansetron [From Zofran] Allergy Unknown Unknown Verified 09/14/21 17:35 pioglitazone Allergy Unknown RASH Verified 09/14/21 17:11 rosuvastatin Allergy Unknown ITCHING Verified 09/14/21 17:11 RASH shellfish derived Allergy Unknown SWELLING Verified 09/14/21 17:11 OF FACE AND MOUTH tramadol Allergy Unknown EARS RING, Verified 09/14/21 17:11 FUZZY VISION amitriptyline [From Elavil] AdvReac Unknown WT GAIN Verified 09/14/21 17:11 diphenhydramine AdvReac Unknown HEAD GOES Verified 09/14/21 17:11 CRAZY-RINGING EARS,STRANGE hydroxyzine AdvReac Unknown MENTAL Verified 09/14/21 17:11 CONFUSION pseudoephedrine AdvReac Unknown JITTERINESS Verified 09/14/21 17:11 sulfamethoxazole AdvReac Unknown Unknown Verified 09/14/21 17:35 [From Bactrim] trimethoprim [From Bactrim] AdvReac Unknown Unknown Verified 09/14/21 17:35 Home Meds Home Medications Medication Instructions Recorded Confirmed diphenoxylate-atropine 2.5 2 tab PO TID PRN 05/03/18 09/14/21 mg-0.025 mg tablet furosemide 40 mg tablet 40 mg PO HS 05/03/18 09/14/21 methscopolamine 2.5 mg tablet 2.5 mg PO TID PRN 05/03/18 09/14/21 omeprazole 20 mg capsule,delayed 20 mg PO QAM 05/03/18 09/14/21 release pramipexole 1 mg tablet 1 mg PO QAM 05/03/18 09/14/21 diclofenac sodium 1 % topical gel 2 g TOPICAL QID PRN 07/22/18 09/14/21 fluticasone furoate 100 1 inh INHALATION QAM 07/22/18 09/14/21 mcg-vilanterol 25 mcg/dose inhalation powder (Breo Ellipta) fluticasone propionate 220 1 - 2 puff INHALATION BID PRN 07/22/18 09/14/21 mcg/actuation HFA aerosol inhaler (Flovent HFA) insulin aspart U-100 100 unit/mL 0 unit SUBCUT QID 07/22/18 09/14/21 (3 mL) subcutaneous pen (Novolog Flexpen U-100 Insulin aspart) multivitamin 1 tab PO QAM 07/22/18 09/14/21 ondansetron 4 mg disintegrating 4 mg PO Q6H PRN 07/22/18 09/14/21 tablet insulin glargine U-300 conc 300 60 unit SUBCUT BID 08/05/18 09/14/21 unit/mL (1.5 mL) subcutaneous pen (Toujesseo SoloStar U-300 Insulin) acetaminophen 500 mg tablet 1,000 mg PO Q6H PRN 09/14/21 09/14/21 (Tylenol Extra Strength) albuterol sulfate 2.5 mg CONTINUOUS NEBULIZATION Q4 09/14/21 09/14/21 PRN albuterol sulfate 90 mcg/actuation 1 - 2 inh INHALATION QID PRN 09/14/21 09/14/21 aerosol inhaler (Proventil HFA) alosetron 1 mg tablet 1 mg PO BID 09/14/21 09/14/21 alosetron 1 mg tablet 1 mg PO BID 09/14/21 09/14/21 aspirin 81 mg chewable tablet 81 mg PO DAILY 09/14/21 09/14/21 atorvastatin 40 mg tablet 40 mg PO QPM 09/14/21 09/14/21 azithromycin 250 mg tablet 250 mg PO DAILY 09/14/21 09/14/21 clonazepam 0.5 mg tablet 0.5 mg PO TID 09/14/21 09/14/21 clonidine HCl 0.1 mg tablet 0.1 mg PO HS 09/14/21 09/14/21 doxepin 100 mg capsule 100 mg PO 09/14/21 09/14/21 famotidine 40 mg tablet 40 mg PO DAILY 09/14/21 09/14/21 ferrous gluconate 240 mg (27 mg 240 mg PO QAM 09/14/21 09/14/21 iron) tablet fluticasone propionate 50 1 spray INTRANASAL BID 09/14/21 09/14/21 mcg/actuation nasal spray,suspension lisinopril 20 mg tablet 20 mg PO QAM 09/14/21 09/14/21 metoprolol succinate 25 mg 12.5 mg PO HS 09/14/21 09/14/21 tablet,extended release 24 hr metoprolol succinate 25 mg 25 mg PO QAM 09/14/21 09/14/21 tablet,extended release 24 hr peg 400-propylene glycol (PF) 0.4 1 drp OPB QID 09/14/21 09/14/21 %-0.3 % eye drops in a dropperette (Systane (PF)) pramipexole 1 mg tablet 2 mg PO HS 09/14/21 09/14/21 prednisone 10 mg tablet 10 mg PO .TAPER UD 09/14/21 09/14/21 prochlorperazine maleate 10 mg 10 mg PO Q6H PRN 09/14/21 09/14/21 tablet (Compazine) Results & Data (ED) Vital Signs Vital Signs - 24 hr 09/14/21 13:32 09/14/21 14:09 09/14/21 14:11 Temperature 36.8 C Temperature Source Temporal Artery Scan Pulse Rate 77 77 Pulse Rate [Finger] 69 Pulse Rate from SpO2 Sensor Pulse Rhythm Regular Regular Pulse Strength Normal Respiratory Rate 26 H 24 24 Respiratory Effort / Characteristics Non-Labored Spontaneous Spontaneous Short of Breath Respiratory Depth Normal Respiratory Pattern Regular Blood Pressure 159/86 H Blood Pressure Mean 110 Blood Pressure Position Sitting Pulse Oximetry 96 96 96 Oxygen Delivery Method Room Air Nasal Cannula Nasal Cannula Oxygen Flow Rate 2 2 Sepsis Recent Fever Within 48 Hours No Sepsis New/Unexplained Change in Mental Status N/A Sepsis Action Taken by Nursing No Action Required 09/14/21 14:18 09/14/21 14:38 09/14/21 17:00 Temperature Temperature Source Pulse Rate 61 102 H Pulse Rate [Finger] Pulse Rate from SpO2 Sensor 61 Pulse Rhythm Pulse Strength Respiratory Rate 17 17 Respiratory Effort / Characteristics Spontaneous Short of Breath Respiratory Depth Normal Respiratory Pattern Regular Blood Pressure 134/84 152/82 H Blood Pressure Mean 100 105 Blood Pressure Position Pulse Oximetry 92 93 Oxygen Delivery Method Nasal Cannula Nebulizer Nasal Cannula Oxygen Flow Rate 2 2 Sepsis Recent Fever Within 48 Hours Sepsis New/Unexplained Change in Mental Status Sepsis Action Taken by Skilled Nursing Medications Current Medication List: was personally reviewed by me Laboratory Data Attestation: I reviewed the patient's lab results. Result diagrams: 09/14/21 14:03 09/14/21 14:03 Lab Results 09/14/21 09/14/21 09/14/21 Range/Units 14:02 14:03 14:03 WBC 7.21 (4.8-10.8) K/uL RBC 4.97 (4.2-5.4) M/uL Hgb 14.5 (12.0-16.0) g/dL Hct 43.5 (37-47) % MCV 87.5 (80-100) fL MCH 29.2 (25-34) pg MCHC 33.3 (32-36) g/dL RDW Std Deviation 49.3 H (36.4-46.3) fL RDW Coeff of Pérez 15.3 H (11.5-14.5) % Plt Count 287 (130-400) K/uL MPV 10.9 H (7.4-10.4) fL Immature Gran % (Auto) 0.1 % Neut % (Auto) 80.5 % Lymph % (Auto) 13.9 % [place] % (Auto) 5.1 % Eos % (Auto) 0.1 % Baso % (Auto) 0.3 % Neut # (Auto) 5.80 (1.4-6.5) K/uL Lymph # (Auto) 1.00 L (1.2-3.4) K/uL [place] # (Auto) 0.37 (0.11-0.59) K/uL Eos # (Auto) 0.01 (0-0.5) K/uL Baso # (Auto) 0.02 (0-0.2) K/uL Immature Gran # (Auto) 0.01 (0.00-0.02) K/uL Sodium 136 (136-145) mmol/L Potassium 4.5 (3.5-5.1) mmol/L Chloride 104 (98-107) mmol/L Carbon Dioxide 23 (21-32) mmol/L Anion Gap 9 (3-11) BUN 25 H (6-23) mg/dl Creatinine 1.02 (0.6-1.2) mg/dl Est Cr Clr Drug Dosing 73.7 ml/min Est GFR ( Amer) 65.0 ml/min Est GFR (Non-Af Amer) 56.1 ml/min BUN/Creatinine Ratio 24.5 H (10-20) Glucose 140 H (70-99(Fasting)) mg/dl Lactate (0.4-2.0) mmol/L Calcium 9.4 (8.5-10.1) mg/dl Magnesium 2.0 (1.7-2.4) mg/dl Total Bilirubin 0.4 (0.2-1.0) mg/dl AST 22 (13-39) U/L ALT 15 (7-52) U/L Alkaline Phosphatase 94 (34-104) U/L Troponin I High Sens 9.4 (0-14) pg/ml Total Protein 7.7 (6.0-8.3) gm/dl Albumin 4.0 (3.4-5.0) gm/dl Globulin 3.7 (2.5-4.0) gm/dl Albumin/Globulin Ratio 1.1 (0.9-2) Adenovirus (PCR) (NotDetected) B. pertussis DNA (PCR) (NotDetected) B.parapertussis DNA PCR (NotDetected) C. pneumoniae DNA (PCR) (NotDetected) Coronavirus OC43 (PCR) (NotDetected) Coronavirus HKU1 (PCR) (NotDetected) Coronavirus 229E (PCR) (NotDetected) SARS-CoV-2 (PCR) (NotDetected) Coronavirus NL63 (PCR) (NotDetected) Human Metapneumovir PCR (NotDetected) Influenza Type A (PCR) (NotDetected) Influenza Type B (PCR) (NotDetected) M. pneumoniae (PCR) (NotDetected) Parainfluenza 1 (PCR) (NotDetected) Parainfluenza 2 (PCR) (NotDetected) Parainfluenza 3 (PCR) (NotDetected) Parainfluenza 4 (PCR) (NotDetected) RSV (PCR) (NotDetected) Entero/Rhino (PCR) (NotDetected) 09/14/21 09/14/21 Range/Units 14:03 14:11 WBC (4.8-10.8) K/uL RBC (4.2-5.4) M/uL Hgb (12.0-16.0) g/dL Hct (37-47) % MCV (80-100) fL MCH (25-34) pg MCHC (32-36) g/dL RDW Std Deviation (36.4-46.3) fL RDW Coeff of Pérez (11.5-14.5) % Plt Count (130-400) K/uL MPV (7.4-10.4) fL Immature Gran % (Auto) % Neut % (Auto) % Lymph % (Auto) % [place] % (Auto) % Eos % (Auto) % Baso % (Auto) % Neut # (Auto) (1.4-6.5) K/uL Lymph # (Auto) (1.2-3.4) K/uL [place] # (Auto) (0.11-0.59) K/uL Eos # (Auto) (0-0.5) K/uL Baso # (Auto) (0-0.2) K/uL Immature Gran # (Auto) (0.00-0.02) K/uL Sodium (136-145) mmol/L Potassium (3.5-5.1) mmol/L Chloride (98-107) mmol/L Carbon Dioxide (21-32) mmol/L Anion Gap (3-11) BUN (6-23) mg/dl Creatinine (0.6-1.2) mg/dl Est Cr Clr Drug Dosing ml/min Est GFR ( Amer) ml/min Est GFR (Non-Af Amer) ml/min BUN/Creatinine Ratio (10-20) Glucose (70-99(Fasting)) mg/dl Lactate 1.9 (0.4-2.0) mmol/L Calcium (8.5-10.1) mg/dl Magnesium (1.7-2.4) mg/dl Total Bilirubin (0.2-1.0) mg/dl AST (13-39) U/L ALT (7-52) U/L Alkaline Phosphatase (34-104) U/L Troponin I High Sens (0-14) pg/ml Total Protein (6.0-8.3) gm/dl Albumin (3.4-5.0) gm/dl Globulin (2.5-4.0) gm/dl Albumin/Globulin Ratio (0.9-2) Adenovirus (PCR) Not Detected (NotDetected) B. pertussis DNA (PCR) Not Detected (NotDetected) B.parapertussis DNA PCR Not Detected (NotDetected) C. pneumoniae DNA (PCR) Not Detected (NotDetected) Coronavirus OC43 (PCR) DETECTED A* (NotDetected) Coronavirus HKU1 (PCR) Not Detected (NotDetected) Coronavirus 229E (PCR) Not Detected (NotDetected) SARS-CoV-2 (PCR) DETECTED A* (NotDetected) Coronavirus NL63 (PCR) Not Detected (NotDetected) Human Metapneumovir PCR Not Detected (NotDetected) Influenza Type A (PCR) Not Detected (NotDetected) Influenza Type B (PCR) Not Detected (NotDetected) M. pneumoniae (PCR) Not Detected (NotDetected) Parainfluenza 1 (PCR) Not Detected (NotDetected) Parainfluenza 2 (PCR) Not Detected (NotDetected) Parainfluenza 3 (PCR) Not Detected (NotDetected) Parainfluenza 4 (PCR) Not Detected (NotDetected) RSV (PCR) Not Detected (NotDetected) Entero/Rhino (PCR) Not Detected (NotDetected) Administered Medications Discontinued Medications Acetaminophen (Acetaminophen 500 Mg Tab) Confirm Administered Dose 1,000 mg .ROUTE .STK-MED ONE Stop: 09/14/21 17:32 Last Admin: 09/14/21 17:33 Dose: 1,000 mg Documented by: [id number] Albuterol (Albut/Ipratrop 3mg/0.5mg Neb 3 Ml Vial) 12 ml NEB ONE ONE; Protocol Stop: 09/14/21 13:52 Last Admin: 09/14/21 14:10 Dose: 12 ml Documented by: [id number] Dexamethasone Sodium Phosphate (DexamethasonePf 10 Mg/Ml Vial) 6 mg IV NOW ONE Stop: 09/14/21 13:52 Last Admin: 09/14/21 14:10 Dose: 6 mg Documented by: [id number] Sodium Chloride (Nss 1000ml) 1,000 mls @ 999 mls/hr IV .Q1H1M ONE Stop: 09/14/21 14:53 Last Infusion: 09/14/21 16:13 Dose: 0 mls/hr Documented by: [id number] Admin: 09/14/21 14:19 Dose: 999 mls/hr Documented by: [id number] Imaging Data Radiologist's Impression: Chest X-Ray 09/14/21 13:53 XR chest 1V portable HISTORY: 71 years-old Female Dyspnea acute shortness of breath COMPARISON: Chest radiographs 09/12/2021 TECHNIQUE: Portable AP view of the chest FINDINGS: Cardiac silhouette is mildly enlarged. Mild nonspecific interstitial coarsening is again noted. Mild bibasilar densities. No pneumothorax, pleural effusion or lobar airspace consolidation. Degenerative changes of the shoulders and spine. IMPRESSION: Mild bibasilar densities suggest atelectasis. A mild nonspecific pneumonitis could appear similarly. ACT 112: Negative or not required by law. The above report was generated using voice recognition software. It may contain grammatical, syntax or spelling errors. Electronically signed by: Mauri Campos M.D. 09/14/2021 2:59 PM Discharge Plan Visit Data Chief Complaint: Asthma Stated Complaint: SHORTNESS OF BREATH ED Provider: Leonard Daly Discharge Problem: Hypoxia, SOB (shortness of breath), Asthma exacerbation, COVID-19 Patient Disposition: Admitted As Inpatient Condition: Fair Forms Stand Alone Forms: [facility] [place] [employer] Prescriptions Prescriptions: No Action pramipexole 1 mg Tablet 1 mg PO QAM RF: 0 furosemide 40 mg tablet 40 mg PO HS RF: 0 diphenoxylate-atropine 2.5-0.025 mg tablet 2 tab PO TID PRN (Reason: Diarrhea) RF: 0 methscopolamine 2.5 mg tablet 2.5 mg PO TID PRN (Reason: Cramps) RF: 0 omeprazole 20 mg Capsule,Delayed Release(Dr/Ec) 20 mg PO QAM RF: 0 Flovent HFA 220 mcg/actuation Hfa Aerosol Inhaler 1 - 2 puff INHALATION BID PRN (Reason: Wheezing) RF: 0 insulin aspart U-100 [Novolog Flexpen U-100 Insulin] 100 unit/mL Insulin Pen 0 unit SUBCUT QID RF: 0 Breo Ellipta 100-25 mcg/dose Blister With Device 1 inh INHALATION QAM RF: 0 multivitamin Tablet,Chewable 1 tab PO QAM RF: 0 diclofenac sodium 1 % Gel 2 g TOPICAL QID PRN (Reason: Pain) RF: 0 ondansetron 4 mg Tablet,Disintegrating 4 mg PO Q6H PRN (Reason: Nausea) RF: 0 Toujeo SoloStar U-300 Insulin 300 unit/mL (1.5 mL) Insulin Pen 60 unit SUBCUT BID RF: 0 aspirin 81 mg tablet,chewable 81 mg PO DAILY RF: 0 atorvastatin 40 mg tablet 40 mg PO QPM RF: 0 lisinopril 20 mg tablet 20 mg PO QAM RF: 0 acetaminophen [Tylenol Extra Strength] 500 mg Tablet 1,000 mg PO Q6H PRN (Reason: Pain) RF: 0 pramipexole 1 mg tablet 2 mg PO HS RF: 0 albuterol sulfate 2.5 mg /3 mL (0.083 %) solution for nebulization 2.5 mg continuous nebulization Q4 PRN (Reason: Shortness Of Breath Or Wheezing) RF: 0 famotidine 40 mg tablet 40 mg PO DAILY RF: 0 prochlorperazine maleate [Compazine] 10 mg Tablet 10 mg PO Q6H PRN (Reason: Nausea) RF: 0 ferrous gluconate 240 mg (27 mg iron) tablet 240 mg PO QAM RF: 0 metoprolol succinate 25 mg tablet extended release 24 hr 25 mg PO QAM RF: 0 metoprolol succinate 25 mg tablet extended release 24 hr 12.5 mg PO HS RF: 0 albuterol sulfate [Proventil HFA] 90 mcg/actuation Hfa Aerosol Inhaler 1 - 2 inh INHALATION QID PRN (Reason: Shortness Of Breath Or Wheezing) RF: 0 clonidine HCl 0.1 mg tablet 0.1 mg PO HS RF: 0 prednisone 10 mg tablet 10 mg PO .TAPER UD RF: 0 azithromycin 250 mg tablet 250 mg PO DAILY RF: 0 clonazepam 0.5 mg tablet 0.5 mg PO TID RF: 0 alosetron 1 mg tablet 1 mg PO BID RF: 0 fluticasone propionate 50 mcg/actuation spray,suspension 1 spray INTRANASAL BID RF: 0 Systane (PF) 0.4-0.3 % Dropperette 1 drp OPB QID RF: 0 alosetron 1 mg tablet 1 mg PO BID RF: 0 doxepin 100 mg capsule 100 mg PO HS RF: 0 Referrals Referrals: Chris Asencio DO [Primary Care Provider] -
[2021-09-14 14:18] LABS: Basophils # (auto) 0.02 K/uL (0-0.2); Basophils % (auto) 0.3 %; Eosinophils # (auto) 0.01 K/uL (0-0.5); Eosinophils % (auto) 0.1 %; Hematocrit (blood only) 43.5 % (37-47); Hemoglobin 14.5 g/dL (12.0-16.0); Immature Granulocytes # (auto) 0.01 K/uL (0.00-0.02); Immature Granulocytes % (auto) 0.1 %; Lymphocytes % (auto) 13.9 %; Mean Corpuscular Hemoglobin 29.2 pg (25-34); Mean Corpuscular Hgb Conc 33.3 g/dL (32-36); Mean Corpuscular Volume 87.5 fL (80-100); Mean Platelet Volume 10.9 fL (7.4-10.4); Monocytes # (auto) 0.37 K/uL (0.11-0.59); Monocytes % (auto) 5.1 %; Neutrophils % (auto) 80.5 %; Platelet Count 287 K/uL (130-400); RDW Coefficient of Variation 15.3 % (11.5-14.5); RDW Standard Deviation 49.3 fL (36.4-46.3); Red Blood Count 4.97 M/uL (4.2-5.4); White Blood Count 7.21 K/uL (4.8-10.8)
[2021-09-14 14:37] LABS: Albumin Globulin Ratio 1.1 (0.9-2); BUN Creatinine Ratio 24.5 (10-20); Bilirubin,Total 0.4 mg/dl (0.2-1.0); Calcium 9.4 mg/dl (8.5-10.1); Creatinine Clr Calc Pharmacy 73.7 ml/min; Est GFR (Non-African American) 56.1 ml/min; Globulin 3.7 gm/dl (2.5-4.0); Potassium 4.5 mmol/L (3.5-5.1); Total Protein 7.7 gm/dl (6.0-8.3)
--- NOTE | 2021-09-14 15:00 | XRay Report ---
XR chest 1V portable HISTORY: 71 years-old Female Dyspnea acute shortness of breath COMPARISON: Chest radiographs 09/12/2021 TECHNIQUE: Portable AP view of the chest FINDINGS: Cardiac silhouette is mildly enlarged. Mild nonspecific interstitial coarsening is again noted. Mild bibasilar densities. No pneumothorax, pleural effusion or lobar airspace consolidation. Degenerative changes of the shoulders and spine. IMPRESSION: Mild bibasilar densities suggest atelectasis. A mild nonspecific pneumonitis could appear similarly. ACT 112: Negative or not required by law. The above report was generated using voice recognition software. It may contain grammatical, syntax o r spelling errors. Electronically signed by: Mauri Campos M.D. 09/14/2021 2:59 PM
[2021-09-14 15:45] LABS: Adenovirus PCR Not Detected (NotDetected); Bordetella parapertussis PCR Not Detected (NotDetected); Bordetella pertussis PCR Not Detected (NotDetected); Chlamydia pneumoniae PCR Not Detected (NotDetected); Coronavirus 229E PCR Not Detected (NotDetected); Coronavirus HKU1 PCR Not Detected (NotDetected); Coronavirus NL63 PCR Not Detected (NotDetected); Human Metapneumovirus PCR Not Detected (NotDetected); Influenza A PCR Not Detected (NotDetected); Influenza B PCR Not Detected (NotDetected); Mycoplasma pneumoniae PCR Not Detected (NotDetected); Parainfluenza Virus 1 PCR Not Detected (NotDetected); Parainfluenza Virus 2 PCR Not Detected (NotDetected); Parainfluenza Virus 3 PCR Not Detected (NotDetected); Parainfluenza Virus 4 PCR Not Detected (NotDetected); Respiratory Syncytial VirusPCR Not Detected (NotDetected); Rhinovirus/Enterovirus PCR Not Detected (NotDetected)
[2021-09-14 15:47] LABS: Coronavirus CoV-2 (COVID19)PCR DETECTED (NotDetected); Coronavirus OC43PCR DETECTED (NotDetected)
--- NOTE | 2021-09-14 17:13 | History & Physical Report ---
Date of Service September 14, 2021 Assessment & Plan (1) Hypoxia: Plan: 2/2 asthma exacerbation in setting of COVID-19 infection (2) Asthma exacerbation: Plan: wheezing in lungs despite steroids and 1 hr neb treatment. Still requiring oxygen. Typically uses oxygen at night only. No pneumonia on CXR. Procalcitonin and CRP pending. Admit to medicine for monitoring. Trend CRP. Cont daily decadron, start remdesivir. Lovenox for DVT prophylaxis. COVID isolation precautions. Scheduled albuterol nebs. (3) COVID-19: Plan: Plan as above including decadron and remdesivir until hypoxia has resolved. She is an obese diabetic making her more high risk for complications of this viral infection. (4) RLS (restless legs syndrome): Plan: chronic, stable. Cont home pramipexole. (5) KATERIN (obstructive sleep apnea): Plan: Noncompliant with BIPAP. Follows with [facility] pulm/sleep medicine. Nocturnal hypoxia at baseline and uses 3-4 LPM overnight. (6) CKD (chronic kidney disease) stage 3, GFR 30-59 ml/min: Plan: chronic, stable. Creat at baseline. Follows with [facility]ph[facility]. (7) Morbid obesity: Plan: Lifestyle changes recommended to decrease percent body fat and increase lean muscle mass. (8) Anxiety: Plan: chronic, patient reports increased anxiety related to her SOB. Takes clonazepam TID scheduled as monotherapy. (9) IBS (irritable bowel syndrome): Plan: chronic, diarrhea predominant. With recent abx use will order stool study to rule out c-diff (10) DM type 2 (diabetes mellitus, type 2): Plan: Insulin dependent. A1c in am. Cont basal bolus insulin at higher scale with steroids on board. (11) DVT prophylaxis: Plan: Lovenox DNR confirmed, agrees this is how she has always felt. Dispo-to med tele. To home when feeling improved and off oxygen. Pt does have a portable concentrator for oxygen at home. [facility] History of Present Illness Chief Complaint: SOB Primary Care Provider: Chris Asencio DO 71 yo F presenting with shortness of breath. Symptoms began last Fridya with a severe runny nose. Other family members also sick with these symptoms. On 09/12 was seen at urgent care reporting sinus drainage, congestion that went into upper chest and then was having cough with yellow mucus x 4 days. She has a h/o KATERIN, asthma, pulmonary HTN, obesity and diabetes. She has been noncompliant with her BIPAP for 4 months now because she cannot sleep with the mask and feels claustrophobic. She reports using 3-4 LPM nocturnal oxygen instead--reports no daytime sleepiness, but states "I have to keep moving and doing things." At the urgent care visit, she was given a Zpak, prednisone taper and albuterol inhaler, also Flonase. She began getting more SOB, audibly wheezing, coughing and anxious. Also reported some diarrhea from the Zpak. She has a h/o IBS and chronic diarrhea at baseline and reports some chronic colon tenderness. She reported a lot of mucous production and nothing was relieving her symptoms. In the ER today she has received Tylenol for a headache, which has now improved, an hour long albuterol neb and decadron, which has started to help her symptoms. She still reports anxiety, back pain from the bed and lateral neck pain related to her arhritis. She is tolerating PO and asking for food. She has some cough. Denies fevers, chills. "Liquid diarrhea all day long today." Denies abdominal pain or symptoms and no urinary symptoms. Denies sore throat, ear pain, sinus pressure or tenderness. in the room and corroborates her story. Allergies Allergy/AdvReac Type Severity Reaction Status Date / Time bee venom protein (honey bee) Allergy Severe ANAPHYLAXIS Verified 09/14/21 17:11 iodine Allergy Severe ANAPHYLAXIS Verified 09/14/21 17:11 -SHELLFISH aspartame Allergy Unknown RASH Verified 09/14/21 17:11 colestipol Allergy Unknown RASH Verified 09/14/21 17:11 doxycycline Allergy Unknown HIVES Verified 09/14/21 17:11 glimepiride Allergy Unknown RASH Verified 09/14/21 17:11 glyburide Allergy Unknown RASH Verified 09/14/21 17:11 metformin Allergy Unknown RASH Verified 09/14/21 17:11 ondansetron [From Zofran] Allergy Unknown Unknown Verified 09/14/21 17:35 pioglitazone Allergy Unknown RASH Verified 09/14/21 17:11 rosuvastatin Allergy Unknown ITCHING Verified 09/14/21 17:11 RASH shellfish derived Allergy Unknown SWELLING Verified 09/14/21 17:11 OF FACE AND MOUTH tramadol Allergy Unknown EARS RING, Verified 09/14/21 17:11 FUZZY VISION amitriptyline [From Elavil] AdvReac Unknown WT GAIN Verified 09/14/21 17:11 diphenhydramine AdvReac Unknown HEAD GOES Verified 09/14/21 17:11 CRAZY-RINGING EARS,STRANGE hydroxyzine AdvReac Unknown MENTAL Verified 09/14/21 17:11 CONFUSION pseudoephedrine AdvReac Unknown JITTERINESS Verified 09/14/21 17:11 sulfamethoxazole AdvReac Unknown Unknown Verified 09/14/21 17:35 [From Bactrim] trimethoprim [From Bactrim] AdvReac Unknown Unknown Verified 09/14/21 17:35 Home Medications Medication Instructions Recorded Confirmed Type diphenoxylate-atropine 2.5 2 tab PO TID PRN 05/03/18 09/14/21 History mg-0.025 mg tablet furosemide 40 mg tablet 40 mg PO HS 05/03/18 09/14/21 History methscopolamine 2.5 mg tablet 2.5 mg PO TID PRN 05/03/18 09/14/21 History omeprazole 20 mg capsule,delayed 20 mg PO QAM 05/03/18 09/14/21 History release pramipexole 1 mg tablet 1 mg PO QAM 05/03/18 09/14/21 History diclofenac sodium 1 % topical gel 2 g TOPICAL QID 07/22/18 09/14/21 History fluticasone furoate 100 1 inh INHALATION QAM 07/22/18 09/14/21 History mcg-vilanterol 25 mcg/dose inhalation powder (Breo Ellipta) fluticasone propionate 220 1 - 2 puff INHALATION BID PRN 07/22/18 09/14/21 History mcg/actuation HFA aerosol inhaler (Flovent HFA) insulin aspart U-100 100 unit/mL 0 unit SUBCUT TIDM 07/22/18 09/14/21 History (3 mL) subcutaneous pen (Novolog Flexpen U-100 Insulin aspart) multivitamin 1 tab PO QAM 07/22/18 09/14/21 History ondansetron 4 mg disintegrating 4 mg PO Q6H PRN 07/22/18 09/14/21 History tablet insulin glargine U-300 conc 300 60 unit SUBCUT BID 08/05/18 09/14/21 History unit/mL (1.5 mL) subcutaneous pen (Mathew Vicentear U-300 Insulin) acetaminophen 500 mg tablet 1,000 mg PO Q6H PRN 09/14/21 09/14/21 History (Tylenol Extra Strength) albuterol sulfate 2.5 mg CONTINUOUS NEBULIZATION Q4 09/14/21 09/14/21 History PRN albuterol sulfate 90 mcg/actuation 1 - 2 inh INHALATION QID PRN 09/14/21 09/14/21 History aerosol inhaler (Proventil HFA) alosetron 1 mg tablet 1 mg PO BID 09/14/21 09/14/21 History aspirin 81 mg chewable tablet 81 mg PO DAILY 09/14/21 09/14/21 History atorvastatin 40 mg tablet 40 mg PO QPM 09/14/21 09/14/21 History azithromycin 250 mg tablet 250 mg PO DAILY 09/14/21 09/14/21 History clonazepam 0.5 mg tablet 0.5 mg PO TID 09/14/21 09/14/21 History clonidine HCl 0.1 mg tablet 0.1 mg PO HS 09/14/21 09/14/21 History doxepin 100 mg capsule 100 mg PO HS 09/14/21 09/14/21 History famotidine 40 mg tablet 40 mg PO DAILY 09/14/21 09/14/21 History ferrous gluconate 240 mg (27 mg 240 mg PO QAM 09/14/21 09/14/21 History iron) tablet fluticasone propionate 50 1 spray INTRANASAL BID 09/14/21 09/14/21 History mcg/actuation nasal spray,suspension lisinopril 20 mg tablet 20 mg PO QAM 09/14/21 09/14/21 History metoprolol succinate 25 mg 12.5 mg PO HS 09/14/21 09/14/21 History tablet,extended release 24 hr metoprolol succinate 25 mg 25 mg PO QAM 09/14/21 09/14/21 History tablet,extended release 24 hr montelukast 10 mg tablet 10 mg PO QAM 09/14/21 09/14/21 History nystatin-triamcinolone 100,000 1 applic TOPICAL BID 09/14/21 09/14/21 History unit/g-0.1 % topical cream peg 400-propylene glycol (PF) 0.4 1 drp OPB QID 09/14/21 09/14/21 History %-0.3 % eye drops in a dropperette (Systane (PF)) pramipexole 1 mg tablet 2 mg PO HS 09/14/21 09/14/21 History prednisone 10 mg tablet 10 mg PO .TAPER UD 09/14/21 09/14/21 History prochlorperazine maleate 10 mg 10 mg PO Q6H PRN 09/14/21 09/14/21 History tablet (Compazine) 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 Depression Diverticular disease DJD (degenerative joint disease), cervical DM type 2 (diabetes mellitus, type 2) IDDM Dyslipidemia GERD (gastroesophageal reflux disease) GERD (gastroesophageal reflux disease) CONTROLLED History of opioid abuse PER RECORDS Hypertension IBS (irritable bowel syndrome) Migraine Neuropathy DIABETIC NEUROPATHY- FEET KATERIN (obstructive sleep apnea) Osteoarthritis Osteoporosis Panic disorder Pulmonary HTN RLS (restless legs syndrome) Temporomandibular joint disorder + CLICKING; NO LOCKING Venous insufficiency Surgical History H/O arthroscopic knee surgery LEFT H/O colonoscopy History of colonoscopy 02/2021, sigmoid diverticulosis, poor prep History of difficult intubation RIGHT SHOULDER SCOPE WITH RCR= 06/29/16= GLIDESCOPE #3 "GOOD VIEW", ETT 7 AT [facility] History of esophagogastroduodenoscopy (EGD) History of repair of rotator cuff B/L History of total knee replacement LEFT Perianal abscess S/P DRAINAGE S/P cholecystectomy S/P hysterectomy Family History Sister Family history of diabetes mellitus Family hx of colon cancer Brother Family history of diabetes mellitus Grandmother (Maternal) Family history of diabetes mellitus Family/Other Family history of diabetes mellitus Other Diabetes Social History Smoking Status: Never smoker Second Hand Exposure: No; Hx Alcohol Use: No Hx Substance Use: No Preferred Language: Pashto Communication Ability: Effective Network Admin Required: No Beliefs That Will Affect Care: None marital status: Current Living Situation: Spouse and Family current occupational status: retired Feels Safe at Home: Yes Assistive Devices: Walker Review of Systems Review of Systems: All systems were reviewed and negative except as indicated above. Physical Exam Physical Exam: CONSTITUTIONAL: obesity, vitals as above, generally well- appearing, NAD EYES: normal conjunctivae, no scleral icterus, ENT: external ear and nose normal, MMM NECK: trachea midline RESPIRATORY: wheezing in upper lung [place]k both posteriorly and anteriorly, no crackles or rales. Expiratory wheezing most audible in upper airways. She is on 1LPM supplemental oxygen and is not tachypneic. She is speaking in full sentences. CARDIOVASCULAR: regular rate and rhythm, S1 and 2 heard without murmurs, gallops or rubs, no JVD, no peripheral edema CHEST: inspection of chest was normal GASTROINTESTINAL: soft, mild tenderness in upper abdomen, ND, no guarding MUSCULOSKELETAL: strength 5/5 throughout, head is normocephalic and atraumatic SKIN: warm and dry, +circular rash that is flat and purplish in color- 2 quarter sized on her legs, scattered rash on her abdomen. NEUROLOGIC: CN 2-12 grossly intact, no sensory deficit, normal cognition, normal speech, no tremor PSYCHIATRIC: alert cooperative and oriented to person, place and time. Anxious appearing. Results & Data Results & Data ([facility]) Vital Signs (Past 12 Hours) Vital Signs Temp Pulse Pulse Resp BP Pulse Ox 09/14/21 14:38 61 17 134/84 92 09/14/21 14:11 69 24 96 09/14/21 14:09 77 24 96 09/14/21 13:32 36.8 C 77 26 H 159/86 H 96 Laboratory Results Short CBC 09/14/21 Range/Units 14:03 WBC 7.21 (4.8-10.8) K/uL Hgb 14.5 (12.0-16.0) g/dL Hct 43.5 (37-47) % Plt Count 287 (130-400) K/uL BMP 09/14/21 14:03 Sodium 136 Potassium 4.5 Chloride 104 Carbon Dioxide 23 BUN 25 H Creatinine 1.02 Glucose 140 H Calcium 9.4 Liver Function 09/14/21 Range/Units 14:03 Total Bilirubin 0.4 (0.2-1.0) mg/dl AST 22 (13-39) U/L ALT 15 (7-52) U/L Alkaline Phosphatase 94 (34-104) U/L Albumin 4.0 (3.4-5.0) gm/dl Diagnostic Findings Chest X-Ray 09/14/21 13:53 XR chest 1V portable HISTORY: 71 years-old Female Dyspnea acute shortness of breath COMPARISON: Chest radiographs 09/12/2021 TECHNIQUE: Portable AP view of the chest FINDINGS: Cardiac silhouette is mildly enlarged. Mild nonspecific interstitial coarsening is again noted. Mild bibasilar densities. No pneumothorax, pleural effusion or lobar airspace consolidation. Degenerative changes of the shoulders and spine. IMPRESSION: Mild bibasilar densities suggest atelectasis. A mild nonspecific pneumonitis could appear similarly. ACT 112: Negative or not required by law. The above report was generated using voice recognition software. It may contain grammatical, syntax or spelling errors. Electronically signed by: Mauri Campos M.D. 09/14/2021 2:59 PM Code Status & VTE Plan VTE Prophylaxis Plan VTE Prophylaxis will be ordered: Yes (1) Asthma exacerbation Asthma persistence: persistent Asthma severity: severe Qualified Code(s): J 45.51 - Severe persistent asthma with (acute) exacerbation
[2021-09-14] MEDS ORDERED: ACETAMINOPHEN 500 MG TAB ONE (17:31)
[2021-09-14] MEDS ORDERED: REMDESIVIR 200 MG in SODIUM CHLORIDE 0.9% 210 ML IV STA (18:01)
[2021-09-14] MEDS ORDERED: GLUCOSE 10 TABS/TUBE PO PRN (18:41)
[2021-09-14] MEDS ORDERED: PROCHLORPERAZINE MALEATE 10 MG TAB PO PRN (18:41)
[2021-09-14] MEDS ORDERED: DEXTROSE 50% 50 ML SYRINGE IV PRN (18:41)
[2021-09-14] MEDS ORDERED: CARBOHYDRATES FOR HYPOGLYCEMIA PO PRN (18:41)
[2021-09-14] MEDS ORDERED: GLUCOSE 40% GEL 15 GM TUBE PO PRN (18:41)
[2021-09-14] MEDS ORDERED: GLUCAGON FOR INJ 1 MG VIAL SQ PRN (18:41)
[2021-09-14] MEDS: ALBUTEROL 0.083% NEBU SOLN 3 ML VIAL NEB SCH (19:33)
[2021-09-14] MEDS: clonazePAM 0.5 MG TAB PO SCH (20:31)
[2021-09-14] MEDS: ATORVASTATIN 40 MG TAB PO SCH (20:31)
[2021-09-14] MEDS: METOPROLOL SUCC 25MG EXT REL TAB PO SCH (20:31)
[2021-09-14] MEDS: DOXEPIN HCL 50 MG CAPSULE PO SCH (20:32)
[2021-09-14] MEDS: PRAMIPEXOLE DIHYDROCHLO 0.5 MG TAB PO SCH (20:32)
[2021-09-14] MEDS: cloNIDine HCL 0.1 MG TAB PO SCH (20:33)
[2021-09-14] MEDS: FUROSEMIDE 40 MG TAB PO SCH (20:33)
[2021-09-14] MEDS: ENOXAPARIN INJ 40 MG/0.4 ML SYR SQ SCH (20:34)
[2021-09-14] MEDS: ACETAMINOPHEN 325 MG TAB PO PRN (20:34)
[2021-09-14] MEDS: NYSTATIN/TRIAMCIN CR 15 GM TUBE EXT SCH (20:35)
[2021-09-14] MEDS ORDERED: PRAMIPEXOLE DIHYDROCHLORIDE 1 MG TAB PO SCH (21:00)
[2021-09-14] MEDS ORDERED: INSULIN GLARGINE SOLOSTAR 100 UNITS/ML 3 ML PEN SC SCH (21:00)
[2021-09-14] MEDS: INSULIN ASPART PER UNIT SC SCH (21:16)
[2021-09-15] MEDS: ACETAMINOPHEN 325 MG TAB PO PRN ×2 (03:25→13:01)
[2021-09-15] MEDS: ALBUTEROL 0.083% NEBU SOLN 3 ML VIAL NEB SCH ×4 (07:29→19:31)
[2021-09-15] MEDS ORDERED: PHARMACY GLYCEMIC MGMT CONSULT PRN (07:46)
[2021-09-15] MEDS: ENOXAPARIN INJ 40 MG/0.4 ML SYR SQ SCH ×2 (08:13→20:39)
[2021-09-15] MEDS: MONTELUKAST SODIUM 10 MG TABLET PO SCH (08:14)
[2021-09-15] MEDS: ALOSETRON HCL 1 MG EXT SCH ×2 (08:14→20:40)
[2021-09-15] MEDS: PANTOprazole 40 MG TAB PO SCH (08:15)
[2021-09-15] MEDS: FAMOTIDINE 40 MG TABLET PO SCH (08:15)
[2021-09-15] MEDS: FERROUS GLUCONATE 324 MG TAB PO SCH (08:15)
[2021-09-15] MEDS: METOPROLOL SUCC 25MG EXT REL TAB PO SCH ×2 (08:16→20:37)
[2021-09-15] MEDS: lisinopril 20 MG TAB PO SCH (08:16)
[2021-09-15] MEDS: FLUTICASONE/VILANTEROL 100/25MCG 14 PUFFS/INHALER INH SCH (08:16)
[2021-09-15] MEDS: ASPIRIN 81 MG CHEW PO SCH (08:16)
[2021-09-15] MEDS: MULTIVITAMIN CHEWABLE TAB PO SCH (08:16)
[2021-09-15] MEDS: PRAMIPEXOLE DIHYDROCHLO 0.5 MG TAB PO SCH ×2 (08:17→20:36)
[2021-09-15] MEDS: dexAMETHasone 6 MG in SYRINGE 0 ML IV SCH (08:18)
[2021-09-15] MEDS: NYSTATIN/TRIAMCIN CR 15 GM TUBE EXT SCH ×2 (08:21→20:41)
[2021-09-15] MEDS: INSULIN ASPART PER UNIT SC SCH ×4 (08:34→20:54)
[2021-09-15 08:46] LABS: Hematocrit (blood only) 40.8 % (37-47); Hemoglobin 13.5 g/dL (12.0-16.0); Mean Corpuscular Hemoglobin 28.8 pg (25-34); Mean Corpuscular Hgb Conc 33.1 g/dL (32-36); Mean Corpuscular Volume 87.2 fL (80-100); Mean Platelet Volume 10.8 fL (7.4-10.4); Platelet Count 262 K/uL (130-400); RDW Coefficient of Variation 16.1 % (11.5-14.5); RDW Standard Deviation 50.9 fL (36.4-46.3); Red Blood Count 4.68 M/uL (4.2-5.4); White Blood Count 7.98 K/uL (4.8-10.8)
--- NOTE | 2021-09-15 08:47 | Pharmacy Report ---
Pharmacy Glycemic Short Note 2 - Date of Service September 15, 2021 - Glycemic Short BSG Results (Last 24 hours): 09/14/21 09/14/21 09/14/21 14:03 20:29 20:48 Glucose 140 H POC Glucose 304 H* 291 H 09/15/21 08:05 Glucose POC Glucose 127 H OUTPATIENT ANTIDIABETIC REGIMEN: * Toujeo 60 units SC BID * Novolog sliding scale TIDM (up to 25 units) * HbA1c pending ASSESSMENT: * DF is a 71 year old female admitted evening of 09/14/21 for inpatient treatment of asthma exacerbation secondary to COVID-19 * BSG last evening of 304 mg/dL likely elevated secondary to administration of IV dexamethasone in ED * Given Novolog and Lantus, BSG of 127 mg/dL this morning * Patient received 85 units of basal insulin yesterday, 60 units reported prior to admission and 25 units at HS * Ordered dexamethasone 6 mg IV daily -> will plan to cover with NPH insulin PLAN FOR INPATIENT GLYCEMIC CONTROL: * Basal insulin * Lantus 50 units SQ daily * NPH 35 units SC daily (~0.4 unit/kg of adjusted body weight) with IV dexamethasone * Bolus insulin * NovoLog per scale ACHS or Q6hrs while NPO * Goal Range: Low 110 mg/dL - High 140 mg/dL * Correction Factor: 15 mg/dL/unit * Nutritional / Prandial insulin per carb ratio of 1 unit per 4 grams CHO consumed
[2021-09-15] MEDS: clonazePAM 0.5 MG TAB PO SCH ×3 (08:53→20:59)
[2021-09-15] MEDS ORDERED: INSULIN HUMAN NPH SC SCH (09:00)
[2021-09-15] MEDS ORDERED: INSULIN GLARGINE SOLOSTAR 100 UNITS/ML 3 ML PEN SC SCH (09:00)
[2021-09-15 09:15] LABS: Estimated Average Glucose 131 mg/dl; Hemoglobin A1C 6.2 % (4.5-5.6)
[2021-09-15 09:24] LABS: Anion Gap 9 (3-11); BUN Creatinine Ratio 29.1 (10-20); Blood Urea Nitrogen 25 mg/dl (6-23); C Reactive Protein < 0.50 mg/dl (0-0.5); Calcium 9.1 mg/dl (8.5-10.1); Carbon Dioxide 22 mmol/L (21-32); Chloride 104 mmol/L (98-107); Creatinine Clr Calc Pharmacy 86.1 ml/min; Est GFR (African American) 79.9 ml/min; Est GFR (Non-African American) 68.9 ml/min; Glucose 128 mg/dl (70-99(Fasting)); Potassium 4.3 mmol/L (3.5-5.1); Sodium 135 mmol/L (136-145)
--- NOTE | 2021-09-15 12:08 | Electrocardiogram Report ---
Test Reason : Blood Pressure : / mmHG Vent. Rate : 069 BPM Atrial Rate : 069 BPM P-R Int : 142 ms QRS Dur : 086 ms QT Int : 364 ms P-R-T Axes : 037 009 046 degrees QTc Int : 390 ms Poor data quality, interpretation may be adversely affected Normal sinus rhythm Normal ECG When compared with ECG of 06-AUG-2018 11:20, No significant change was found Confirmed by Lasha Adair ([id number]) on 09/15/2021 12:08:18 PM Referred By: REFERRED SELF Confirmed By:Gera Adair
[2021-09-15] MEDS: BENZONATATE 100 MG CAPSULE PO SCH ×2 (14:04→20:59)
--- NOTE | 2021-09-15 14:38 | Hospitalist Progress Note ---
Date of Service September 15, 2021 Assessment & Plan (1) Hypoxia: Plan: Likely Multifactorial due to COVID-19 infection, asthma exacerbation, obstructive sleep apnea Chronic oxygen dependency--on 4 L at bedtime Wean off of supplemental oxygen during daytime as able (2) Asthma exacerbation: Plan: --CXR:Mild bibasilar densities suggest atelectasis. A mild nonspecific pneumonitis could appear similarly. Continue IV steroids Continue DuoNebs Supplemental oxygen as needed (3) COVID-19: Plan: COVID 19 Infection Possible Pneumonia due to COVID Normal CRP, procalcitonin Continue on Decadron, remdesivir Monitor LFTs On Lovenox for DVT prophylaxis Isolation precautions Wean off of supplemental oxygen as able (4) RLS (restless legs syndrome): Plan: Continue pramipexole (5) KATERIN (obstructive sleep apnea): Plan: Noncompliant with BIPAP. Follows with [facility] pulm/sleep medicine Nocturnal hypoxia at baseline and uses 3-4 LPM overnight (6) CKD (chronic kidney disease) stage 3, GFR 30-59 ml/min: Plan: Creatinine at baseline. Follows with [facility]. Monitor renal function (7) Morbid obesity: Plan: Lifestyle changes BMI:44 (8) Anxiety: Plan: On clonazepam TID PRN (9) IBS (irritable bowel syndrome): Plan: chronic, diarrhea predominant Stool study to rule out c-diff (10) DM type 2 (diabetes mellitus, type 2): Plan: HbA1C: 6.2 Continue Insulin Monitor BGs (11) DVT prophylaxis: Plan: Lovenox SQ Code Status DNR/DNI Admission and Anticipated Discharge Date Admission Date: September 14, 2021 Subjective Patient is seen and examined at bedside States feeling tired and has generalized weakness Feels short of breath, also reports wheezing Denies any chest pain, dizziness, nausea, abdominal pain Also has chronic arthritic pain Review of Systems Review of Systems: All systems reviewed & are unremarkable except as noted in Subjective Physical Exam Physical Exam: Physical Exam: Vitals signs as noted above General Appearance:Morbidly obese, no apparent distress Head: normocephalic, Atraumatic Eyes: normal inspection, EOMI Neck: supple, Trachea midline Respiratory/Chest: Decreased breath sounds, Scattered wheezes, No accessory muscle use Cardiovascular: S1, S2, No murmur Abdomen/GI:Soft, Non tender, Bowel sounds present Extremities/Musculoskeletal:normal inspection, Trace pedal edema Neurologic/Psych:AAOX3, grossly no focal neurological deficits Skin: normal color, warm Results & Data Results & Data ([facility]) Vital Signs (Past 12 Hours) Vital Signs Temp Pulse Pulse Resp BP Pulse Ox 09/15/21 10:58 36.5 C 69 20 106/65 94 09/15/21 10:35 78 18 98 09/15/21 07:35 53 L 09/15/21 07:29 56 L 16 96 09/15/21 07:20 36.4 C L 55 L 18 124/67 97 09/15/21 03:12 37.2 C 64 16 112/69 97 Laboratory Results Short CBC 09/15/21 Range/Units 08:00 WBC 7.98 (4.8-10.8) K/uL Hgb 13.5 (12.0-16.0) g/dL Hct 40.8 (37-47) % Plt Count 262 (130-400) K/uL BMP 09/14/21 09/15/21 14:03 08:00 Sodium 136 135 L Potassium 4.5 4.3 Chloride 104 104 Carbon Dioxide 23 22 BUN 25 H 25 H Creatinine 1.02 0.86 Glucose 140 H 128 H Calcium 9.4 9.1 Liver Function 09/14/21 Range/Units 14:03 Total Bilirubin 0.4 (0.2-1.0) mg/dl AST 22 (13-39) U/L ALT 15 (7-52) U/L Alkaline Phosphatase 94 (34-104) U/L Albumin 4.0 (3.4-5.0) gm/dl (1) Asthma exacerbation Asthma persistence: persistent Asthma severity: severe Qualified Code(s): J45.51 - Severe persistent asthma with (acute) exacerbation
[2021-09-15] MEDS: DICLOFENAC SOD 1% GEL 100 GM TUBE EXT SCH ×2 (16:05→20:40)
[2021-09-15] MEDS: REMDESIVIR 100 MG in SODIUM CHLORIDE 0.9% 230 ML IV SCH (20:35)
[2021-09-15] MEDS: cloNIDine HCL 0.1 MG TAB PO SCH (20:38)
[2021-09-15] MEDS: ATORVASTATIN 40 MG TAB PO SCH (20:38)
[2021-09-15] MEDS: DOXEPIN HCL 50 MG CAPSULE PO SCH (20:38)
[2021-09-15] MEDS: INSULIN GLARGINE SOLOSTAR 100 UNITS/ML 3 ML PEN SC SCH (20:55)
[2021-09-15] MEDS: FUROSEMIDE 40 MG TAB PO SCH (21:12)
[2021-09-16] MEDS ORDERED: INSULIN ASPART PER UNIT SC SCH (02:00)
[2021-09-16 05:49] LABS: Hematocrit (blood only) 39.3 % (37-47); Hemoglobin 12.9 g/dL (12.0-16.0); Mean Corpuscular Hemoglobin 29.3 pg (25-34); Mean Corpuscular Hgb Conc 32.8 g/dL (32-36); Mean Corpuscular Volume 89.3 fL (80-100); Mean Platelet Volume 10.9 fL (7.4-10.4); Platelet Count 240 K/uL (130-400); RDW Coefficient of Variation 15.5 % (11.5-14.5); RDW Standard Deviation 50.8 fL (36.4-46.3); White Blood Count 6.67 K/uL (4.8-10.8)
[2021-09-16 06:13] LABS: BUN Creatinine Ratio 34.6 (10-20); Calcium 9.1 mg/dl (8.5-10.1); Creatinine Clr Calc Pharmacy 91.4 ml/min; Est GFR (African American) 85.9 ml/min; Est GFR (Non-African American) 74.1 ml/min; Magnesium 2.2 mg/dl (1.7-2.4)
[2021-09-16] MEDS: ALBUTEROL 0.083% NEBU SOLN 3 ML VIAL NEB SCH ×4 (07:53→19:04)
[2021-09-16] MEDS: dexAMETHasone 6 MG in SYRINGE 0 ML IV SCH (08:12)
[2021-09-16] MEDS: FAMOTIDINE 40 MG TABLET PO SCH (08:14)
[2021-09-16] MEDS: FLUTICASONE/VILANTEROL 100/25MCG 14 PUFFS/INHALER INH SCH (08:14)
[2021-09-16] MEDS: MONTELUKAST SODIUM 10 MG TABLET PO SCH (08:15)
[2021-09-16] MEDS: PANTOprazole 40 MG TAB PO SCH (08:15)
[2021-09-16] MEDS: ASPIRIN 81 MG CHEW PO SCH (08:15)
[2021-09-16] MEDS: FERROUS GLUCONATE 324 MG TAB PO SCH (08:15)
[2021-09-16] MEDS: METOPROLOL SUCC 25MG EXT REL TAB PO SCH ×2 (08:15→23:11)
[2021-09-16] MEDS: lisinopril 20 MG TAB PO SCH (08:15)
[2021-09-16] MEDS: MULTIVITAMIN CHEWABLE TAB PO SCH (08:15)
[2021-09-16] MEDS: PRAMIPEXOLE DIHYDROCHLO 0.5 MG TAB PO SCH ×2 (08:15→23:11)
[2021-09-16] MEDS: ALOSETRON HCL 1 MG EXT SCH ×2 (08:16→21:58)
[2021-09-16] MEDS: ENOXAPARIN INJ 40 MG/0.4 ML SYR SQ SCH ×2 (08:18→23:11)
[2021-09-16] MEDS: DICLOFENAC SOD 1% GEL 100 GM TUBE EXT SCH ×2 (08:19→21:58)
[2021-09-16] MEDS: NYSTATIN/TRIAMCIN CR 15 GM TUBE EXT SCH ×2 (08:19→21:59)
[2021-09-16] MEDS ORDERED: INSULIN GLARGINE SOLOSTAR 100 UNITS/ML 3 ML PEN SC SCH (09:00)
[2021-09-16] MEDS: INSULIN ASPART PER UNIT SC SCH ×4 (09:04→21:41)
[2021-09-16] MEDS: INSULIN HUMAN NPH SC SCH (09:05)
[2021-09-16] MEDS: BENZONATATE 100 MG CAPSULE PO SCH ×3 (09:06→23:12)
[2021-09-16] MEDS: clonazePAM 0.5 MG TAB PO SCH ×3 (09:06→21:55)
[2021-09-16] MEDS: ACETAMINOPHEN 325 MG TAB PO PRN ×2 (11:37→21:55)
[2021-09-16] MEDS: guaiFENesin 600 MG TABCR PO SCH ×2 (12:55→23:12)
--- NOTE | 2021-09-16 14:02 | Hospitalist Progress Note ---
Date of Service September 16, 2021 Assessment & Plan (1) Hypoxia: Plan: Likely Multifactorial due to COVID-19 infection, asthma exacerbation, obstructive sleep apnea Chronic oxygen dependency--on 4 L at bedtime Wean off of supplemental oxygen during daytime as able (2) Asthma exacerbation: Plan: --CXR:Mild bibasilar densities suggest atelectasis. A mild nonspecific pneumonitis could appear similarly. Continue IV steroids Continue DuoNebs Supplemental oxygen as needed Continue current management (3) COVID-19: Plan: COVID 19 Infection Possible Pneumonia due to COVID Normal CRP, procalcitonin Continue on Decadron, remdesivir Monitor LFTs On Lovenox for DVT prophylaxis Isolation precautions Wean off of supplemental oxygen as able Pulmonary Hygiene Added Mucinex (4) RLS (restless legs syndrome): Plan: Continue pramipexole (5) KATERIN (obstructive sleep apnea): Plan: Noncompliant with BIPAP. Follows with [facility] pulm/sleep medicine Nocturnal hypoxia at baseline and uses 3-4 LPM overnight (6) CKD (chronic kidney disease) stage 3, GFR 30-59 ml/min: Plan: Creatinine at baseline. Follows with [facility]. Monitor renal function (7) Morbid obesity: Plan: Lifestyle changes BMI:44 (8) Anxiety: Plan: On clonazepam TID PRN (9) IBS (irritable bowel syndrome): Plan: chronic, diarrhea predominant Stool study to rule out c-diff (10) DM type 2 (diabetes mellitus, type 2): Plan: HbA1C: 6.2 Continue Insulin Monitor BGs (11) DVT prophylaxis: Plan: Lovenox SQ Code Status DNR/DNI Admission and Anticipated Discharge Date Admission Date: September 14, 2021 Subjective Patient is seen and examined at bedside Cough, Dyspnea about same as yesterday Feels chest is congested Has poor appetite and feels tired Denies any chest pain, dizziness, abdominal pain, diarrhea Offers no other complaints Review of Systems Review of Systems: All systems reviewed & are unremarkable except as noted in Subjective Physical Exam Physical Exam: Physical Exam: Vitals signs as noted above General Appearance:Morbidly obese, no apparent distress Head: normocephalic, Atraumatic Eyes: normal inspection, EOMI Neck: supple, Trachea midline Respiratory/Chest: Decreased breath sounds, Scattered wheezes, No accessory muscle use Cardiovascular: S1, S2, No murmur Abdomen/GI:Soft, Non tender, Bowel sounds present Extremities/Musculoskeletal:normal inspection, Trace pedal edema Neurologic/Psych:AAOX3, grossly no focal neurological deficits Skin: normal color, warm Results & Data Results & Data ([facility]) Vital Signs (Past 12 Hours) Vital Signs Temp Pulse Pulse Resp BP Pulse Ox 09/16/21 11:39 37.1 C 76 18 136/84 94 09/16/21 11:24 71 16 94 09/16/21 09:44 49 L 09/16/21 07:56 73 16 93 09/16/21 07:41 36.4 C L 53 L 19 117/61 93 09/16/21 04:00 36.7 C 59 L 18 108/72 92 Laboratory Results Short CBC 09/16/21 Range/Units 05:37 WBC 6.67 (4.8-10.8) K/uL Hgb 12.9 (12.0-16.0) g/dL Hct 39.3 (37-47) % Plt Count 240 (130-400) K/uL BMP 09/16/21 05:37 Sodium 135 L Potassium 4.0 Chloride 103 Carbon Dioxide 27 BUN 28 H Creatinine 0.81 Glucose 114 H Calcium 9.1 Liver Function 09/16/21 Range/Units 05:37 AST 14 (13-39) U/L ALT 12 (7-52) U/L (1) Asthma exacerbation Asthma persistence: persistent Asthma severity: severe Qualified Code(s): J45.51 - Severe persistent asthma with (acute) exacerbation
[2021-09-16] MEDS: INSULIN GLARGINE SOLOSTAR 100 UNITS/ML 3 ML PEN SC SCH (21:42)
[2021-09-16] MEDS: REMDESIVIR 100 MG in SODIUM CHLORIDE 0.9% 230 ML IV SCH (21:51)
[2021-09-16] MEDS: cloNIDine HCL 0.1 MG TAB PO SCH (23:11)
[2021-09-16] MEDS: ATORVASTATIN 40 MG TAB PO SCH (23:12)
[2021-09-16] MEDS: DOXEPIN HCL 50 MG CAPSULE PO SCH (23:12)
[2021-09-16] MEDS: FUROSEMIDE 40 MG TAB PO SCH (23:12)
[2021-09-17 06:59] LABS: Hematocrit (blood only) 40.3 % (37-47); Hemoglobin 13.5 g/dL (12.0-16.0); Mean Corpuscular Hemoglobin 28.8 pg (25-34); Mean Corpuscular Hgb Conc 33.5 g/dL (32-36); Mean Corpuscular Volume 86.1 fL (80-100); Mean Platelet Volume 10.6 fL (7.4-10.4); Platelet Count 221 K/uL (130-400); RDW Coefficient of Variation 15.5 % (11.5-14.5); RDW Standard Deviation 49.1 fL (36.4-46.3); Red Blood Count 4.68 M/uL (4.2-5.4)
[2021-09-17] MEDS: ALBUTEROL 0.083% NEBU SOLN 3 ML VIAL NEB SCH ×4 (07:09→18:56)
[2021-09-17 07:17] LABS: BUN Creatinine Ratio 31.8 (10-20); Calcium 8.9 mg/dl (8.5-10.1); Creatinine Clr Calc Pharmacy 87.2 ml/min; Est GFR (Non-African American) 69.9 ml/min; Potassium 3.6 mmol/L (3.5-5.1)
[2021-09-17] MEDS: clonazePAM 0.5 MG TAB PO SCH ×3 (08:25→20:52)
[2021-09-17] MEDS: INSULIN ASPART PER UNIT SC SCH ×4 (08:25→20:48)
[2021-09-17] MEDS: dexAMETHasone 6 MG in SYRINGE 0 ML IV SCH (08:25)
[2021-09-17] MEDS: BENZONATATE 100 MG CAPSULE PO SCH ×3 (08:25→20:52)
[2021-09-17] MEDS: INSULIN HUMAN NPH SC SCH (08:25)
[2021-09-17] MEDS: ENOXAPARIN INJ 40 MG/0.4 ML SYR SQ SCH ×2 (08:25→21:00)
[2021-09-17] MEDS: guaiFENesin 600 MG TABCR PO SCH ×2 (08:26→20:54)
[2021-09-17] MEDS: lisinopril 20 MG TAB PO SCH (08:28)
[2021-09-17] MEDS: FERROUS GLUCONATE 324 MG TAB PO SCH (08:29)
[2021-09-17] MEDS: FAMOTIDINE 40 MG TABLET PO SCH (08:29)
[2021-09-17] MEDS: FLUTICASONE/VILANTEROL 100/25MCG 14 PUFFS/INHALER INH SCH (08:29)
[2021-09-17] MEDS: ASPIRIN 81 MG CHEW PO SCH (08:30)
[2021-09-17] MEDS: MONTELUKAST SODIUM 10 MG TABLET PO SCH (08:30)
[2021-09-17] MEDS: METOPROLOL SUCC 25MG EXT REL TAB PO SCH ×3 (08:30→20:55)
[2021-09-17] MEDS: DICLOFENAC SOD 1% GEL 100 GM TUBE EXT SCH ×2 (08:30→20:59)
[2021-09-17] MEDS: PANTOprazole 40 MG TAB PO SCH (08:30)
[2021-09-17] MEDS: MULTIVITAMIN CHEWABLE TAB PO SCH (08:30)
[2021-09-17] MEDS: PRAMIPEXOLE DIHYDROCHLO 0.5 MG TAB PO SCH ×2 (08:31→21:01)
[2021-09-17] MEDS: NYSTATIN/TRIAMCIN CR 15 GM TUBE EXT SCH ×2 (08:31→20:59)
[2021-09-17] MEDS: ALOSETRON HCL 1 MG EXT SCH ×2 (08:31→20:57)
[2021-09-17] MEDS ORDERED: INSULIN GLARGINE SOLOSTAR 100 UNITS/ML 3 ML PEN SC SCH (09:00)
[2021-09-17] MEDS ORDERED: DOCUSATE SODIUM 100 MG CAP PO PRN (10:55)
[2021-09-17] MEDS ORDERED: DOCUSATE SODIUM 100 MG CAP PO SCH (11:00)
[2021-09-17] MEDS: POLYETHYLENE (MIRALAX) 17 GM PACK PO PRN (14:23)
--- NOTE | 2021-09-17 14:25 | Pharmacy Report ---
Pharmacy Glycemic Short Note 2 - Date of Service September 17, 2021 - Glycemic Short BSG Results (Last 24 hours): 09/16/21 09/16/21 09/17/21 17:03 21:39 02:26 Glucose POC Glucose 120 H 148 H 113 H 09/17/21 09/17/21 09/17/21 06:12 07:49 07:50 Glucose 70 POC Glucose 67 L* 69 L* 09/17/21 12:07 Glucose POC Glucose 87 OUTPATIENT ANTIDIABETIC REGIMEN: * Toujeo 60 units SC BID * Novolog sliding scale TIDM (up to 25 units) * HbA1c pending ASSESSMENT: 09/17/21 * Patient's BSGs yesterday were 35-156-605-148 mg/dL. This morning's fasting BSG is 69 mg/dL. * Patient received 100 units of basal yesterday (70 units of Lantus and 30 units of NPH). This was a decrease of 25% from 09/15/21. * Held AM Lantus. Will cut Lantus in half to 30 units nightly. Continue NPH as BSGs throughout the day were stable. * Loosen Novolog to prevent overcorrection. BACKGROUND * DF is a 71 year old female admitted evening of 09/14/21 for inpatient treatment of asthma exacerbation secondary to COVID-19 * BSG last evening of 304 mg/dL likely elevated secondary to administration of IV dexamethasone in ED * Given Novolog and Lantus, BSG of 127 mg/dL this morning * Patient received 85 units of basal insulin yesterday, 60 units reported prior to admission and 25 units at HS * Ordered dexamethasone 6 mg IV daily -> will plan to cover with NPH insulin PLAN FOR INPATIENT GLYCEMIC CONTROL: * Basal insulin * Lantus 30 units SQ HS * NPH 30 units SC daily with IV dexamethasone * Bolus insulin * NovoLog per scale ACHS or Q6hrs while NPO * Goal Range: Low 110 mg/dL - High 140 mg/dL * Correction Factor: 18 mg/dL/unit * Nutritional / Prandial insulin per carb ratio of 1 unit per 5 grams CHO consumed
--- NOTE | 2021-09-17 14:55 | Hospitalist Progress Note ---
Date of Service September 17, 2021 Assessment & Plan (1) Hypoxia: Plan: Likely Multifactorial due to COVID-19 infection, asthma exacerbation, obstructive sleep apnea Chronic oxygen dependency--on 4 L at bedtime Weaned off of supplemental oxygen during daytime Saturating well on room air (2) Asthma exacerbation: Plan: --CXR:Mild bibasilar densities suggest atelectasis. A mild nonspecific pneumonitis could appear similarly. Continue IV steroids Continue DuoNebs Supplemental oxygen as needed Continue current management Slowly improving (3) COVID-19: Plan: COVID 19 Infection Possible Pneumonia due to COVID Normal CRP, procalcitonin Continue on Decadron, remdesivir Monitor LFTs On Lovenox for DVT prophylaxis Isolation precautions Wean off of supplemental oxygen as able Pulmonary Hygiene Added Mucinex Slowly improving (4) RLS (restless legs syndrome): Plan: Continue pramipexole (5) KATERIN (obstructive sleep apnea): Plan: Noncompliant with BIPAP. Follows with [facility] pulm/sleep medicine Nocturnal hypoxia at baseline and uses 3-4 LPM overnight (6) CKD (chronic kidney disease) stage 3, GFR 30-59 ml/min: Plan: Creatinine at baseline. Follows with [facility]. Monitor renal function (7) Morbid obesity: Plan: Lifestyle changes BMI:44 (8) Anxiety: Plan: On clonazepam TID PRN (9) IBS (irritable bowel syndrome): Plan: chronic, diarrhea predominant Stool study to rule out c-diff No recurrence of diarrhea (10) DM type 2 (diabetes mellitus, type 2): Plan: HbA1C: 6.2 Continue Insulin Monitor BGs (11) DVT prophylaxis: Plan: Lovenox SQ Code Status DNR/DNI Admission and Anticipated Discharge Date Admission Date: September 14, 2021 Subjective Patient is seen and examined at bedside Wheezing, Cough, Dyspnea slowly improving Saturating well on room air States feeling tired and has nausea intermittency Denies any chest pain, dizziness, abdominal pain, diarrhea Review of Systems Review of Systems: All systems reviewed & are unremarkable except as noted in Subjective Physical Exam Physical Exam: Physical Exam: Vitals signs as noted above General Appearance:Morbidly obese, no apparent distress Head: normocephalic, Atraumatic Eyes: normal inspection, EOMI Neck: supple, Trachea midline Respiratory/Chest: Decreased breath sounds, CTA, No accessory muscle use Cardiovascular: S1, S2, No murmur Abdomen/GI:Soft, Non tender, Bowel sounds present Extremities/Musculoskeletal:normal inspection, Trace pedal edema Neurologic/Psych:AAOX3, grossly no focal neurological deficits Skin: normal color, warm Results & Data Results & Data ([facility]) Vital Signs (Past 12 Hours) Vital Signs Temp Pulse Pulse Pulse Resp BP BP 09/17/21 13:40 52 L 09/17/21 10:55 36.7 C 96 H 20 114/63 09/17/21 08:39 55 L 106/64 09/17/21 07:51 36.2 C L 51 L 20 93/57 L 09/17/21 07:11 49 L 16 Pulse Ox 09/17/21 13:40 09/17/21 10:55 96 09/17/21 08:39 09/17/21 07:51 96 09/17/21 07:11 97 Laboratory Results Short CBC 09/17/21 Range/Units 06:12 WBC 7.30 (4.8-10.8) K/uL Hgb 13.5 (12.0-16.0) g/dL Hct 40.3 (37-47) % Plt Count 221 (130-400) K/uL BMP 09/17/21 06:12 Sodium 136 Potassium 3.6 Chloride 103 Carbon Dioxide 26 BUN 27 H Creatinine 0.85 Glucose 70 Calcium 8.9 Liver Function 09/17/21 Range/Units 06:12 AST 13 (13-39) U/L ALT 14 (7-52) U/L (1) Asthma exacerbation Asthma persistence: persistent Asthma severity: severe Qualified Code(s): J45.51 - Severe persistent asthma with (acute) exacerbation
[2021-09-17] MEDS: REMDESIVIR 100 MG in SODIUM CHLORIDE 0.9% 230 ML IV SCH (20:47)
[2021-09-17] MEDS: INSULIN GLARGINE SOLOSTAR 100 UNITS/ML 3 ML PEN SC SCH (20:49)
[2021-09-17] MEDS: FUROSEMIDE 40 MG TAB PO SCH (20:51)
[2021-09-17] MEDS: ATORVASTATIN 40 MG TAB PO SCH (20:52)
[2021-09-17] MEDS: cloNIDine HCL 0.1 MG TAB PO SCH (20:53)
[2021-09-17] MEDS: DOXEPIN HCL 50 MG CAPSULE PO SCH (20:54)
[2021-09-18] MEDS: ALBUTEROL 0.083% NEBU SOLN 3 ML VIAL NEB SCH ×4 (07:08→19:05)
[2021-09-18] MEDS: POLYETHYLENE (MIRALAX) 17 GM PACK PO PRN (08:18)
[2021-09-18] MEDS: clonazePAM 0.5 MG TAB PO SCH ×3 (08:18→22:35)
[2021-09-18] MEDS: dexAMETHasone 6 MG in SYRINGE 0 ML IV SCH (08:18)
[2021-09-18] MEDS: BENZONATATE 100 MG CAPSULE PO SCH ×3 (08:19→21:46)
[2021-09-18] MEDS: MULTIVITAMIN CHEWABLE TAB PO SCH (08:19)
[2021-09-18] MEDS: lisinopril 20 MG TAB PO SCH (08:20)
[2021-09-18] MEDS: MONTELUKAST SODIUM 10 MG TABLET PO SCH (08:20)
[2021-09-18] MEDS: FAMOTIDINE 40 MG TABLET PO SCH (08:20)
[2021-09-18] MEDS: FERROUS GLUCONATE 324 MG TAB PO SCH (08:20)
[2021-09-18] MEDS: guaiFENesin 600 MG TABCR PO SCH ×2 (08:20→21:47)
[2021-09-18] MEDS: PANTOprazole 40 MG TAB PO SCH (08:20)
[2021-09-18] MEDS: PRAMIPEXOLE DIHYDROCHLO 0.5 MG TAB PO SCH ×2 (08:20→21:45)
[2021-09-18] MEDS: ASPIRIN 81 MG CHEW PO SCH (08:20)
[2021-09-18] MEDS: FLUTICASONE/VILANTEROL 100/25MCG 14 PUFFS/INHALER INH SCH (08:21)
[2021-09-18] MEDS: DICLOFENAC SOD 1% GEL 100 GM TUBE EXT SCH ×2 (08:21→21:48)
[2021-09-18] MEDS: ENOXAPARIN INJ 40 MG/0.4 ML SYR SQ SCH ×2 (08:21→21:44)
[2021-09-18] MEDS: ALOSETRON HCL 1 MG EXT SCH ×2 (08:23→21:43)
[2021-09-18] MEDS: NYSTATIN/TRIAMCIN CR 15 GM TUBE EXT SCH ×2 (08:23→21:49)
[2021-09-18] MEDS: METOPROLOL SUCC 25MG EXT REL TAB PO SCH ×3 (08:23→21:45)
[2021-09-18 08:59] LABS: BUN Creatinine Ratio 34.9 (10-20); Calcium 9.1 mg/dl (8.5-10.1); Creatinine Clr Calc Pharmacy 85.3 ml/min; Est GFR (African American) 79.9 ml/min; Est GFR (Non-African American) 68.9 ml/min
[2021-09-18] MEDS: INSULIN ASPART PER UNIT SC SCH ×4 (09:07→22:32)
[2021-09-18] MEDS: INSULIN HUMAN NPH SC SCH (09:08)
--- NOTE | 2021-09-18 14:17 | Pharmacy Report ---
Pharmacy Glycemic Short Note 2 - Date of Service September 18, 2021 - Glycemic Short BSG Results (Last 24 hours): 09/17/21 09/17/21 09/18/21 17:14 20:27 07:53 Glucose POC Glucose 110 H 195 H 108 H 09/18/21 09/18/21 08:21 12:06 Glucose 106 H POC Glucose 160 H OUTPATIENT ANTIDIABETIC REGIMEN: * Toujeo 60 units SC BID * Novolog sliding scale TIDM (up to 25 units) * HbA1c pending ASSESSMENT: 09/18: * BSGS [phone] mg/dL yesterday. This AM fasting with lantus reduction 108 mg/dL. Will continue current lantus dosing, monitor for need to increase * Continue current novolog parameters 09/17/21 * Patient's BSGs yesterday were [phone] mg/dL. This morning's fasting BSG is 69 mg/dL. * Patient received 100 units of basal yesterday (70 units of Lantus and 30 units of NPH). This was a decrease of 25% from 09/15/21. * Held AM Lantus. Will cut Lantus in half to 30 units nightly. Continue NPH as BSGs throughout the day were stable. * Loosen Novolog to prevent overcorrection. BACKGROUND * DF is a 71 year old female admitted evening of 09/14/21 for inpatient treatment of asthma exacerbation secondary to COVID-19 * BSG last evening of 304 mg/dL likely elevated secondary to administration of IV dexamethasone in ED * Given Novolog and Lantus, BSG of 127 mg/dL this morning * Patient received 85 units of basal insulin yesterday, 60 units reported prior to admission and 25 units at HS * Ordered dexamethasone 6 mg IV daily -> will plan to cover with NPH insulin PLAN FOR INPATIENT GLYCEMIC CONTROL: * Basal insulin * Lantus 30 units SQ HS * NPH 30 units SC daily with IV dexamethasone * Bolus insulin * NovoLog per scale ACHS or Q6hrs while NPO * Goal Range: Low 110 mg/dL - High 140 mg/dL * Correction Factor: 18 mg/dL/unit * Nutritional / Prandial insulin per carb ratio of 1 unit per 5 grams CHO consumed
--- NOTE | 2021-09-18 15:18 | Hospitalist Progress Note ---
Date of Service September 18, 2021 Assessment & Plan (1) Hypoxia: Plan: Likely Multifactorial due to COVID-19 infection, asthma exacerbation, obstructive sleep apnea Chronic oxygen dependency--on 4 L at bedtime Weaned off of supplemental oxygen during daytime Saturating well on room air (2) Asthma exacerbation: Plan: --CXR:Mild bibasilar densities suggest atelectasis. A mild nonspecific pneumonitis could appear similarly. Continue IV steroids Continue DuoNebs Supplemental oxygen as needed Still has mild wheezing on exam (3) COVID-19: Plan: COVID 19 Infection Possible Pneumonia due to COVID Normal CRP, procalcitonin Continue on Decadron, remdesivir Day #5 Monitor LFTs On Lovenox for DVT prophylaxis Isolation precautions Pulmonary Hygiene Added Mucinex Saturating well on room air (4) RLS (restless legs syndrome): Plan: Continue pramipexole (5) KATERIN (obstructive sleep apnea): Plan: Noncompliant with BIPAP. Follows with [facility] pulm/sleep medicine Nocturnal hypoxia at baseline and uses 3-4 LPM overnight (6) CKD (chronic kidney disease) stage 3, GFR 30-59 ml/min: Plan: Creatinine at baseline. Follows with [facility]. Monitor renal function (7) Morbid obesity: Plan: Lifestyle changes BMI:44 (8) Anxiety: Plan: On clonazepam TID PRN (9) IBS (irritable bowel syndrome): Plan: chronic, diarrhea predominant Stool study to rule out c-diff No recurrence of diarrhea (10) DM type 2 (diabetes mellitus, type 2): Plan: HbA1C: 6.2 Continue Insulin Monitor BGs (11) DVT prophylaxis: Plan: Lovenox SQ Code Status DNR/DNI Admission and Anticipated Discharge Date Admission Date: September 14, 2021 Subjective Patient is seen and examined at bedside States feeling better Still has cough with expectoration and WILLIMA Reports being tired Denies any chest pain, dizziness, abdominal pain, diarrhea No other complaints Review of Systems Review of Systems: All systems reviewed & are unremarkable except as noted in Subjective Physical Exam Physical Exam: Physical Exam: Vitals signs as noted above General Appearance:Morbidly obese, no apparent distress Head: normocephalic, Atraumatic Eyes: normal inspection, EOMI Neck: supple, Trachea midline Respiratory/Chest: Decreased breath sounds, scant wheezing, No accessory muscle use Cardiovascular: S1, S2, No murmur Abdomen/GI:Soft, Non tender, Bowel sounds present Extremities/Musculoskeletal:normal inspection, Trace pedal edema Neurologic/Psych:AAOX3, grossly no focal neurological deficits Skin: normal color, warm Results & Data Results & Data ([facility]) Vital Signs (Past 12 Hours) Vital Signs Temp Pulse Pulse Resp BP Pulse Ox Pulse Ox 09/18/21 15:11 62 20 96 09/18/21 12:20 36.8 C 62 20 125/73 96 09/18/21 10:55 55 L 20 95 95 09/18/21 07:54 36.0 C L 50 L 22 116/72 96 09/18/21 07:09 52 L 22 95 09/18/21 07:02 44 L (1) Asthma exacerbation Asthma persistence: persistent Asthma severity: severe Qualified Code(s): J45.51 - Severe persistent asthma with (acute) exacerbation
[2021-09-18] MEDS: REMDESIVIR 100 MG in SODIUM CHLORIDE 0.9% 230 ML IV SCH (20:29)
[2021-09-18] MEDS: ATORVASTATIN 40 MG TAB PO SCH (21:45)
[2021-09-18] MEDS: DOXEPIN HCL 50 MG CAPSULE PO SCH (21:46)
[2021-09-18] MEDS: FUROSEMIDE 40 MG TAB PO SCH (21:47)
[2021-09-18] MEDS: INSULIN GLARGINE SOLOSTAR 100 UNITS/ML 3 ML PEN SC SCH (22:33)
[2021-09-19] MEDS: ALBUTEROL 0.083% NEBU SOLN 3 ML VIAL NEB SCH ×4 (07:11→19:42)
[2021-09-19 08:16] LABS: Creatinine Clr Calc Pharmacy 72.2 ml/min; Est GFR (African American) 62.8 ml/min; Est GFR (Non-African American) 54.1 ml/min
[2021-09-19] MEDS ORDERED: INSULIN GLARGINE SOLOSTAR 100 UNITS/ML 3 ML PEN SC SCH ×2 (09:00→21:00)
[2021-09-19] MEDS: INSULIN ASPART PER UNIT SC SCH ×4 (09:15→22:18)
[2021-09-19] MEDS: dexAMETHasone 6 MG in SYRINGE 0 ML IV SCH (09:36)
[2021-09-19] MEDS: clonazePAM 0.5 MG TAB PO SCH ×3 (09:36→21:15)
[2021-09-19] MEDS: MONTELUKAST SODIUM 10 MG TABLET PO SCH (09:39)
[2021-09-19] MEDS: FAMOTIDINE 40 MG TABLET PO SCH (09:39)
[2021-09-19] MEDS: FERROUS GLUCONATE 324 MG TAB PO SCH (09:39)
[2021-09-19] MEDS: guaiFENesin 600 MG TABCR PO SCH ×2 (09:39→21:38)
[2021-09-19] MEDS: PRAMIPEXOLE DIHYDROCHLO 0.5 MG TAB PO SCH ×2 (09:39→21:12)
[2021-09-19] MEDS: MULTIVITAMIN CHEWABLE TAB PO SCH (09:39)
[2021-09-19] MEDS: PANTOprazole 40 MG TAB PO SCH (09:39)
[2021-09-19] MEDS: ENOXAPARIN INJ 40 MG/0.4 ML SYR SQ SCH ×2 (09:39→21:11)
[2021-09-19] MEDS: ASPIRIN 81 MG CHEW PO SCH (09:40)
[2021-09-19] MEDS: BENZONATATE 100 MG CAPSULE PO SCH ×3 (09:40→21:15)
[2021-09-19] MEDS: FLUTICASONE/VILANTEROL 100/25MCG 14 PUFFS/INHALER INH SCH (09:40)
[2021-09-19] MEDS: ALOSETRON HCL 1 MG EXT SCH ×3 (09:42→21:11)
[2021-09-19] MEDS: lisinopril 20 MG TAB PO SCH (09:48)
[2021-09-19] MEDS: DICLOFENAC SOD 1% GEL 100 GM TUBE EXT SCH ×2 (09:54→21:22)
[2021-09-19] MEDS: NYSTATIN/TRIAMCIN CR 15 GM TUBE EXT SCH ×2 (09:54→21:22)
[2021-09-19] MEDS: METOPROLOL SUCC 25MG EXT REL TAB PO SCH ×2 (10:19→21:14)
[2021-09-19] MEDS: INSULIN HUMAN NPH SC SCH (10:20)
[2021-09-19] MEDS: POLYETHYLENE (MIRALAX) 17 GM PACK PO PRN (13:04)
--- NOTE | 2021-09-19 15:39 | Electrocardiogram Report ---
Test Reason : Blood Pressure : / mmHG Vent. Rate : 063 BPM Atrial Rate : 063 BPM P-R Int : 150 ms QRS Dur : 090 ms QT Int : 394 ms P-R-T Axes : 058 016 040 degrees QTc Int : 403 ms Normal sinus rhythm Normal ECG When compared with ECG of 14-SEP-2021 14:09, No significant change was found Confirmed by Andrés Harmon ([id number]) on 09/19/2021 3:39:04 PM Referred By: REFERRED SELF Confirmed By:Andrés Harmon
--- NOTE | 2021-09-19 17:10 | Hospitalist Progress Note ---
Date of Service September 19, 2021 Assessment & Plan (1) Hypoxia: Plan: Likely Multifactorial due to COVID-19 infection, asthma exacerbation, obstructive sleep apnea Chronic oxygen dependency--on 4 L at bedtime Weaned off of supplemental oxygen during daytime Saturating well on room air (2) Asthma exacerbation: Plan: --CXR:Mild bibasilar densities suggest atelectasis. A mild nonspecific pneumonitis could appear similarly. Continue IV steroids Continue DuoNebs Supplemental oxygen as needed Improved (3) COVID-19: Plan: COVID 19 Infection Possible Pneumonia due to COVID Normal CRP, procalcitonin Continue on Decadron Completed Remdesivir Day #5/5 Monitor LFTs On Lovenox for DVT prophylaxis Isolation precautions Pulmonary Hygiene Added Mucinex Saturating well on room air (4) RLS (restless legs syndrome): Plan: Continue pramipexole (5) KATERIN (obstructive sleep apnea): Plan: Noncompliant with BIPAP. [facility] Nocturnal hypoxia at baseline and uses 3-4 LPM overnight Sinus Bradycardia Hypotension Clonidine, lisinopril held today Metoprolol dose decreased to 12.5 mg a.m., 12.5 mg at bedtime Monitor on tele (6) CKD (chronic kidney disease) stage 3, GFR 30-59 ml/min: Plan: Creatinine at baseline. Follows with [facility] Neph[facility]. Monitor renal function (7) Morbid obesity: Plan: Lifestyle changes BMI:44 (8) Anxiety: Plan: On clonazepam TID PRN (9) IBS (irritable bowel syndrome): Plan: chronic, diarrhea predominant Stool study to rule out c-diff No recurrence of diarrhea (10) DM type 2 (diabetes mellitus, type 2): Plan: HbA1C: 6.2 Continue Insulin Monitor BGs (11) DVT prophylaxis: Plan: Lovenox SQ Code Status DNR/DNI Admission and Anticipated Discharge Date Admission Date: September 14, 2021 Subjective Patient is seen and examined at bedside Hypotensive this morning Less cough and dyspnea No new complaints States having minimal dizziness and chest discomfort earlier today Troponins within normal limits, EKG showed no acute changes No other complaints Review of Systems Review of Systems: All systems reviewed & are unremarkable except as noted in Subjective Physical Exam Physical Exam: Physical Exam: Vitals signs as noted above General Appearance:Morbidly obese, no apparent distress Head: normocephalic, Atraumatic Eyes: normal inspection, EOMI Neck: supple, Trachea midline Respiratory/Chest: Decreased breath sounds, CTA, No accessory muscle use Cardiovascular: S1, S2, No murmur Abdomen/GI:Soft, Non tender, Bowel sounds present Extremities/Musculoskeletal:normal inspection, Trace pedal edema Neurologic/Psych:AAOX3, grossly no focal neurological deficits Skin: normal color, warm Results & Data Results & Data ([facility]) Vital Signs (Past 12 Hours) Vital Signs Temp Pulse Pulse Resp BP BP Pulse Ox 09/19/21 16:37 36.9 C 77 16 148/88 H 95 09/19/21 15:25 73 20 96 09/19/21 15:20 68 09/19/21 12:06 36.5 C 95 H 14 114/69 96 09/19/21 10:56 57 L 18 97 09/19/21 08:18 45 L 09/19/21 07:54 36.5 C 63 16 92/61 L 96 09/19/21 07:13 54 L 18 97 Laboratory Results BMP 09/19/21 07:34 Creatinine 1.05 Liver Function 09/19/21 Range/Units 07:34 AST 13 (13-39) U/L ALT 18 (7-52) U/L (1) Asthma exacerbation Asthma persistence: persistent Asthma severity: severe Qualified Code(s): J45.51 - Severe persistent asthma with (acute) exacerbation
[2021-09-19] MEDS: DOXEPIN HCL 50 MG CAPSULE PO SCH (21:14)
[2021-09-19] MEDS: FUROSEMIDE 40 MG TAB PO SCH (21:14)
[2021-09-19] MEDS: ATORVASTATIN 40 MG TAB PO SCH (21:15)
[2021-09-19] MEDS: INSULIN GLARGINE SOLOSTAR 100 UNITS/ML 3 ML PEN SC SCH (22:18)
[2021-09-20] MEDS: ALBUTEROL 0.083% NEBU SOLN 3 ML VIAL NEB SCH ×4 (07:24→19:30)
[2021-09-20] MEDS: ENOXAPARIN INJ 40 MG/0.4 ML SYR SQ SCH (08:08)
[2021-09-20] MEDS: MONTELUKAST SODIUM 10 MG TABLET PO SCH (08:08)
[2021-09-20] MEDS: ASPIRIN 81 MG CHEW PO SCH (08:09)
[2021-09-20] MEDS: FERROUS GLUCONATE 324 MG TAB PO SCH (08:10)
[2021-09-20] MEDS: FLUTICASONE/VILANTEROL 100/25MCG 14 PUFFS/INHALER INH SCH (08:11)
[2021-09-20] MEDS: MULTIVITAMIN CHEWABLE TAB PO SCH (08:11)
[2021-09-20] MEDS: PRAMIPEXOLE DIHYDROCHLO 0.5 MG TAB PO SCH (08:11)
[2021-09-20] MEDS: BENZONATATE 100 MG CAPSULE PO SCH ×2 (08:11→12:26)
[2021-09-20] MEDS: FAMOTIDINE 40 MG TABLET PO SCH (08:15)
[2021-09-20] MEDS: guaiFENesin 600 MG TABCR PO SCH (08:15)
[2021-09-20] MEDS: NYSTATIN/TRIAMCIN CR 15 GM TUBE EXT SCH (08:16)
[2021-09-20] MEDS: ALOSETRON HCL 1 MG EXT SCH ×2 (08:16→15:53)
[2021-09-20] MEDS: PANTOprazole 40 MG TAB PO SCH (08:17)
[2021-09-20] MEDS: DICLOFENAC SOD 1% GEL 100 GM TUBE EXT SCH (08:18)
[2021-09-20] MEDS: dexAMETHasone 6 MG in SYRINGE 0 ML IV SCH (08:19)
[2021-09-20] MEDS: clonazePAM 0.5 MG TAB PO SCH ×2 (08:25→12:25)
[2021-09-20 08:36] LABS: Hematocrit (blood only) 44.5 % (37-47); Hemoglobin 15.1 g/dL (12.0-16.0); Mean Corpuscular Hemoglobin 28.9 pg (25-34); Mean Corpuscular Hgb Conc 33.9 g/dL (32-36); Mean Corpuscular Volume 85.1 fL (80-100); Platelet Count 259 K/uL (130-400); RDW Coefficient of Variation 15.5 % (11.5-14.5); RDW Standard Deviation 48.3 fL (36.4-46.3); Red Blood Count 5.23 M/uL (4.2-5.4); White Blood Count 10.34 K/uL (4.8-10.8)
[2021-09-20 08:38] LABS: BUN Creatinine Ratio 30.5 (10-20); Calcium 9.4 mg/dl (8.5-10.1); Creatinine Clr Calc Pharmacy 79.7 ml/min; Est GFR (African American) 70.8 ml/min; Est GFR (Non-African American) 61.1 ml/min; Potassium 3.8 mmol/L (3.5-5.1)
[2021-09-20] MEDS: INSULIN ASPART PER UNIT SC SCH ×3 (08:46→17:43)
[2021-09-20] MEDS: INSULIN HUMAN NPH SC SCH (08:47)
[2021-09-20] MEDS ORDERED: METOPROLOL SUCC 25MG EXT REL TAB PO SCH (09:00)
--- NOTE | 2021-09-20 13:34 | Hospitalist Progress Note ---
Date of Service September 20, 2021 Assessment & Plan (1) Hypoxia: Plan: per Dr. Emerson's notes with addendum: Likely Multifactorial due to COVID-19 infection, asthma exacerbation, obstructive sleep apnea Chronic oxygen dependency--on 4 L at bedtime Weaned off of supplemental oxygen during daytime Saturating well on room air 2 step exercise test pending (2) Asthma exacerbation: Plan: --CXR:Mild bibasilar densities suggest atelectasis. A mild nonspecific pneumonitis could appear similarly. given IV steroids and DuoNebs Supplemental oxygen as needed wheezing resolved (3) COVID-19: Plan: COVID 19 Infection Possible Pneumonia due to COVID Normal CRP, procalcitonin CXR: Mild bibasilar densities suggest atelectasis. A mild nonspecific pneumonitis could appear similarly. given IV Decadron Completed Remdesivir Day #5/ Mucinex LFTs ok Lovenox for DVT prophylaxis Pulmonary Hygiene Added Saturating well on room air Discharge plan: Prednisone taper x 4 days Mucinex Incentive spirometer encouraged to ambulate frequently Isolate x 5 more days to complete 10 days PCP in 1 week (4) RLS (restless legs syndrome): Plan: Continue pramipexole (5) KATERIN (obstructive sleep apnea): Plan: Noncompliant with BIPAP. [facility] pul[facility] Nocturnal hypoxia at baseline and uses 3-4 LPM overnight Sinus Bradycardia Hypotension noted while admitted on 09/19 HR 45-47 Clonidine, lisinopril held Metoprolol dose decreased to 12.5 mg a.m., 12.5 mg at bedtime 09/20: HR 80s BP elevated resume Lisinopril Metoprolol 12.5mg BID hold clonidine ff up with PCP in 1 week (6) CKD (chronic kidney disease) stage 3, GFR 30-59 ml/min: Plan: Creatinine at baseline. Follows with [facility] Nephrology. renal function stable (7) Morbid obesity: Plan: Lifestyle changes BMI:44 (8) Anxiety: Plan: On clonazepam TID PRN (9) IBS (irritable bowel syndrome): Plan: chronic, diarrhea predominant No recurrence of diarrhea (10) DM type 2 (diabetes mellitus, type 2): Plan: HbA1C: 6.2 Continue Insulin Monitor BGs (11) DVT prophylaxis: Plan: Lovenox SQ Code Status DNR/DNI Plan: plan of care discussed with patient in detail and at length all questions answered she is understanding, agreeable, comfortable with the plan of care Admission and Anticipated Discharge Date Admission Date: September 14, 2021 Subjective ff up for acute hypoxic respiratory failure, COVID 19 pneumonia, etc seen resting in bed, sitting up on room air comfortable in good spirits states she feels better overall cough is much less no chest pain, fever/chills no palpitations, dizziness, shortness of breath or leg pain no other symptoms states she is ready and would like to be discharged today Review of Systems Review of Systems: all noted and negative except for above Physical Exam Physical Exam: General- oriented x 3, not in distress, speaks in sentences with no effort or accessory muscle use Eyes- anicteric Neck- no JVD Lungs- clear breath sounds bilaterally, no rales/wheezes Heart- normal rate, regular rhythm; no murmurs Abdomen- normal bowel sounds, nondistended, soft, nontender Extremities- no pretibial edema, no calf tenderness Neuro- alert, oriented x 3; no gross focal neurologic deficits Skin- warm & dry Results & Data Results & Data ([facility]) Vital Signs (Past 12 Hours) Vital Signs Temp Pulse Pulse Resp BP Pulse Ox 09/20/21 12:08 37.4 C 84 20 164/98 H 96 09/20/21 11:05 60 16 95 09/20/21 07:25 63 16 94 09/20/21 07:02 53 L 09/20/21 06:37 36.8 C 51 L 18 119/63 95 all noted and reviewed including below (1) Asthma exacerbation Asthma persistence: persistent Asthma severity: severe Qualified Code(s): J45.51 - Severe persistent asthma with (acute) exacerbation
[2021-09-20] MEDS ORDERED: lisinopril 20 MG TAB PO ONE (14:40)
--- NOTE | 2021-09-20 18:25 | Discharge Summary ---
Date of Service September 20, 2021 Admission HPI Per Admitting Provider 71 yo F presenting with shortness of breath. Symptoms began last with a severe runny nose. Other family members also sick with these symptoms. On 09/12 was seen at urgent care reporting sinus drainage, congestion that went into upper chest and then was having cough with yellow mucus x 4 days. She has a h/o KATERIN, asthma, pulmonary HTN, obesity and diabetes. She has been noncompliant with her BIPAP for 4 months now because she cannot sleep with the mask and feels claustrophobic. She reports using 3-4 LPM nocturnal oxygen instead--reports no daytime sleepiness, but states "I have to keep moving and doing things." At the urgent care visit, she was given a Zpak, prednisone taper and albuterol inhaler, also Flonase. She began getting more SOB, audibly wheezing, coughing and anxious. Also reported some diarrhea from the Zpak. She has a h/o IBS and chronic diarrhea at baseline and reports some chronic colon tenderness. She reported a lot of mucous production and nothing was relieving her symptoms. In the ER today she has received Tylenol for a headache, which has now improved, an hour long albuterol neb and decadron, which has started to help her symptoms. She still reports anxiety, back pain from the bed and lateral neck pain related to her arhritis. She is tolerating PO and asking for food. She has some cough. Denies fevers, chills. "Liquid diarrhea all day long today." Denies abdominal pain or symptoms and no urinary symptoms. Denies sore throat, ear pain, sinus pressure or tenderness. in the room and corroborates her story. Discharge Data Allergies Allergy/AdvReac Type Severity Reaction Status Date / Time bee venom protein (honey bee) Allergy Severe ANAPHYLAXIS Verified 09/14/21 17:11 iodine Allergy Severe ANAPHYLAXIS Verified 09/14/21 17:11 -SHELLFISH colestipol Allergy Unknown RASH Verified 09/14/21 17:11 doxycycline Allergy Unknown HIVES Verified 09/14/21 17:11 glimepiride Allergy Unknown RASH Verified 09/14/21 17:11 glyburide Allergy Unknown RASH Verified 09/14/21 17:11 metformin Allergy Unknown RASH Verified 09/14/21 17:11 ondansetron [From Zofran] Allergy Unknown Unknown Verified 09/14/21 17:35 pioglitazone Allergy Unknown RASH Verified 09/14/21 17:11 rosuvastatin Allergy Unknown ITCHING Verified 09/14/21 17:11 RASH shellfish derived Allergy Unknown SWELLING Verified 09/14/21 17:11 OF FACE AND MOUTH tramadol Allergy Unknown EARS RING, Verified 09/14/21 17:11 FUZZY VISION amitriptyline [From Elavil] AdvReac Unknown WT GAIN Verified 09/14/21 17:11 diphenhydramine AdvReac Unknown HEAD GOES Verified 09/14/21 17:11 CRAZY-RINGING EARS,STRANGE hydroxyzine AdvReac Unknown MENTAL Verified 09/14/21 17:11 CONFUSION pseudoephedrine AdvReac Unknown JITTERINESS Verified 09/14/21 17:11 sulfamethoxazole AdvReac Unknown Unknown Verified 09/14/21 17:35 [From Bactrim] trimethoprim [From Bactrim] AdvReac Unknown Unknown Verified 09/14/21 17:35 Consultations 09/14/21 16:39 ED Decision to Admit Stat Hospital Course (1) Hypoxia: per Dr. Emerson's notes with addendum: Likely Multifactorial due to COVID-19 infection, asthma exacerbation, obstructive sleep apnea Chronic oxygen dependency--on 4 L at bedtime Weaned off of supplemental oxygen during daytime Saturating well on room air 2 step exercise test pending (2) Asthma exacerbation: --CXR:Mild bibasilar densities suggest atelectasis. A mild nonspecific pneumonitis could appear similarly. given IV steroids and DuoNebs Supplemental oxygen as needed wheezing resolved (3) COVID-19: COVID 19 Infection Possible Pneumonia due to COVID Normal CRP, procalcitonin CXR: Mild bibasilar densities suggest atelectasis. A mild nonspecific pneumonitis could appear similarly. given IV Decadron Completed Remdesivir Day #5/5 Mucinex LFTs ok Lovenox for DVT prophylaxis Pulmonary Hygiene Added Saturating well on room air Discharge plan: Prednisone taper x 4 days Mucinex Incentive spirometer encouraged to ambulate frequently Isolate x 5 more days to complete 10 days PCP in 1 week (4) RLS (restless legs syndrome): Continue pramipexole (5) KATERIN (obstructive sleep apnea): Noncompliant with BIPAP. Follows with [facility] pulm/sleep medicine Nocturnal hypoxia at baseline and uses 3-4 LPM overnight Sinus Bradycardia Hypotension noted while admitted on 09/19 HR 45-47 Clonidine, lisinopril held Metoprolol dose decreased to 12.5 mg a.m., 12.5 mg at bedtime 09/20: HR 80s BP elevated resume Lisinopril Metoprolol 12.5mg BID hold clonidine ff up with PCP in 1 week (6) CKD (chronic kidney disease) stage 3, GFR 30-59 ml/min: Creatinine at baseline. Follows with [facility]. renal function stable (7) Morbid obesity: Lifestyle changes BMI:44 (8) Anxiety: On clonazepam TID PRN (9) IBS (irritable bowel syndrome): chronic, diarrhea predominant No recurrence of diarrhea (10) DM type 2 (diabetes mellitus, type 2): HbA1C: 6.2 Continue Insulin Monitor BGs (11) DVT prophylaxis: Lovenox SQ Code Status DNR/DNI plan of care discussed with patient in detail and at length all questions answered she is understanding, agreeable, comfortable with the plan of care Discharge Plan Discharge Items Patient Disposition: Home - Self-Care Reason For Visit: ASTHMA EXACERBATION, COVID + Discharge Diagnosis: COVID 19 PNEUMONIA WITH HYPOXIA ASTHMA EXACERBATION Activity: As commented below Activity Comment: INCREASE GRADUALLY TOLERATED Lifting: Wait until after follow-up appointment Exercise/Sports: Wait until after follow-up appointment Driving/Machine Use: NO DRIVING UNTIL RE-EVALUATED AND ALLOWED BY PRIMARY CARE PHYSICIAN Non-emergency contact: Primary Care Provider Call non-emergency contact if: you have any medication questions, your symptoms worsen, your pain is not controlled and you have a fever Follow-up/Referrals: [facility] [Other] ([facility] will contact you this afternoon or tomorrow to set up humidification for your nighttime oxygen.) Chris Asencio DO [Primary Care Provider] - (Date & Time 09/28/2021 10:20 AM Provider Chris Asencio DO [facility] ) Diet: Carb Consistent or DM2 and Heart Healthy Addtl Attending Provider Instructions: PLEASE REFER TO YOUR NEW MEDICATION LIST AND FOLLOW INSTRUCTIONS CAREFULLY. YOUR NEW MEDICATIONS INCLUDE: PREDNISONE TAPER 40MG X 1 DAY, THEN 30MG X 1 DAY, THEN 20MG X 1 DAY, THEN 10MG X 1 DAY THEN STOP MUCINEX REDUCE METOPROLOL TO 12.5MG TWICE A DAY. DISCONTINUE CLONIDINE. CHECK YOUR BLOOD PRESSURE AT LEAST ONCE A DAY 2 HRS AFTER TAKING LISINOPRIL AND METOPROLOL. CALL YOUR DOCTOR IMMEDIATELY IF SYSTOLIC BP IS PERSISTENTLY ABOVE 150 AND/OR HEART RATE BELOW 60. PLEASE CALL YOUR PRIMARY CARE PHYSICIAN OR RETURN TO THE ER IF WITH WORSENING OF SYMPTOMS, INCLUDING WORSENING SHORTNESS OF BREATH, COUGH, CHEST PAIN, WEAKNESS, DIZZINESS, LEG SWELLING OR PAIN. ALWAYS AMBULATE FREQUENTLY TO PREVENT BLOOD CLOTS. USE INCENTIVE SPIROMETRY EVERY 2-3 HOURS. FOLLOW UP WITH PRIMARY CARE PHYSICIAN OUTLINED ABOVE. YOU STILL NEED TO ISOLATE AT HOME, IN YOUR OWN ROOM FOR AT LEAST 5 MORE DAYS. Home Isolation COVID-19 Instructions The following information about Home Isolation is from the CDC Website: https://www.cdc.gov/coronavirus/2019-ncov/hcp/bubjaxwb-nmijvhf-ryvxzl.html Stay home except to get medical care People who are mildly ill with COVID-19 are able to isolate at home during their illness. You should restrict activities outside your home, except for getting medical care. Do not go to work, school, or public areas. Avoid using public transportation, ride-sharing, or taxis. Separate yourself from other people and animals in your home People: As much as possible, you should stay in a specific room and away from other people in your home. Also, you should use a separate bathroom, if available. Animals: You should restrict contact with pets and other animals while you are sick with COVID-19, just like you would around other people. Although there have not been reports of pets or other animals becoming sick with COVID-19, it is still recommended that people sick with COVID-19 limit contact with animals until more information is known about the virus. When possible, have another member of your household care for your animals while you are sick. If you are sick with COVID-19, avoid contact with your pet, including petting, snuggling, being kissed or licked, and sharing food. If you must care for your pet or be around animals while you are sick, wash your hands before and after you interact with pets and wear a face mask. Call ahead before visiting your doctor If you have a medical appointment, call the healthcare provider and tell them that you have or may have COVID-19. This will help the healthcare providers office take steps to keep other people from getting infected or exposed. Wear a face mask You should wear a face mask when you are around other people (e.g., sharing a room or vehicle) or pets and before you enter a healthcare providers office. If you are not able to wear a face mask (for example, because it causes trouble breathing), then people who live with you should not stay in the same room with you, or they should wear a face mask if they enter your room. Cover your coughs and sneezes Cover your mouth and nose with a tissue when you cough or sneeze. Throw used tissues in a lined trash can. Immediately wash your hands with soap and water for at least 20 seconds or, if soap and water are not available, clean your hands with an alcohol-based hand clam bed worker that contains at least 60% alcohol. Clean your hands often Wash your hands often with soap and water for at least 20 seconds, especially after blowing your nose, coughing, or sneezing; going to the bathroom; and before eating or preparing food. If soap and water are not readily available, use an alcohol-based hand clam bed worker with at least 60% alcohol, covering all surfaces of your hands and rubbing them together until they feel dry. Soap and water are the best option if hands are visibly dirty. Avoid touching your eyes, nose, and mouth with unwashed hands. Avoid sharing personal household items You should not share dishes, drinking glasses, cups, eating utensils, towels, or bedding with other people or pets in your home. After using these items, they should be washed thoroughly with soap and water. Clean all high-touch surfaces everyday High touch surfaces include counters, tabletops, doorknobs, bathroom fixtures, toilets, phones, keyboards, tablets, and bedside tables. Also, clean any surfaces that may have blood, stool, or body fluids on them. Use a household cleaning spray or wipe, according to the label instructions. Labels contain instructions for safe and effective use of the cleaning product including precautions you should take when applying the product, such as wearing gloves and making sure you have good ventilation during use of the product. Monitor your symptoms Seek prompt medical attention if your illness is worsening (e.g., difficulty breathing).Beforeseeking care, call your healthcare provider and tell them that you have, or are being evaluated for, COVID-19. Put on a face mask before you enter the facility. These steps will help the healthcare providers office to keep other people in the office or waiting room from getting infected or exposed. Ask your healthcare provider to call the local or state health department. Persons who are placed under active monitoring or facilitated self- monitoring should follow instructions provided by their local health department or occupational health professionals, as appropriate. When working with your local health department check their available hours. If you have a medical emergency and need to call 911, notify the dispatch personnel that you have, or are being evaluated for COVID-19. If possible, put on a face mask before emergency medical services arrive. Discontinuing home isolation Patients with confirmed COVID-19 should remain under home isolation precautions until the risk of secondary transmission to others is thought to be low. The decision to discontinue home isolation precautions should be made on a c ase-by-case basis, in consultation with healthcare providers and [facility] and [facility] health departments. Pending Studies at Discharge: No Stand-Alone Forms: My [facility] [place], Smoking Cessation Medications and DC Order Prescriptions: New prednisone 10 mg tablet 10 mg PO UD Qty: 10 RF: 0 guaifenesin [Mucinex] 600 mg Tablet Extended Release 12hr 600 mg PO Q12 2 Days Qty: 4 RF: 0 Continued pramipexole 1 mg Tablet 1 mg PO QAM RF: 0 furosemide 40 mg tablet 40 mg PO HS RF: 0 diphenoxylate-atropine 2.5-0.025 mg tablet 2 tab PO TID PRN (Reason: Diarrhea) RF: 0 methscopolamine 2.5 mg tablet 2.5 mg PO TID PRN (Reason: Cramps) RF: 0 omeprazole 20 mg Capsule,Delayed Release(Dr/Ec) 20 mg PO QAM RF: 0 Flovent HFA 220 mcg/actuation Hfa Aerosol Inhaler 1 - 2 puff INHALATION BID PRN (Reason: Wheezing) RF: 0 insulin aspart U-100 [Novolog Flexpen U-100 Insulin] 100 unit/mL Insulin Pen 0 unit SUBCUT TIDM RF: 0 Breo Ellipta 100-25 mcg/dose Blister With Device 1 inh INHALATION QAM RF: 0 multivitamin Tablet,Chewable 1 tab PO QAM RF: 0 diclofenac sodium 1 % Gel 2 g TOPICAL QID RF: 0 ondansetron 4 mg Tablet,Disintegrating 4 mg PO Q6H PRN (Reason: Nausea) RF: 0 Mathew SoloStar U-300 Insulin 300 unit/mL (1.5 mL) Insulin Pen 60 unit SUBCUT BID RF: 0 aspirin 81 mg tablet,chewable 81 mg PO DAILY RF: 0 atorvastatin 40 mg tablet 40 mg PO QPM RF: 0 lisinopril 20 mg tablet 20 mg PO QAM RF: 0 acetaminophen [Tylenol Extra Strength] 500 mg Tablet 1,000 mg PO Q6H PRN (Reason: Pain) RF: 0 pramipexole 1 mg tablet 2 mg PO HS RF: 0 albuterol sulfate 2.5 mg /3 mL (0.083 %) solution for nebulization 2.5 mg continuous nebulization Q4 PRN (Reason: Shortness Of Breath Or Wheezing) RF: 0 famotidine 40 mg tablet 40 mg PO DAILY RF: 0 prochlorperazine maleate [Compazine] 10 mg Tablet 10 mg PO Q6H PRN (Reason: Nausea) RF: 0 ferrous gluconate 240 mg (27 mg iron) tablet 240 mg PO QAM RF: 0 metoprolol succinate 25 mg tablet extended release 24 hr 12.5 mg PO HS RF: 0 albuterol sulfate [Proventil HFA] 90 mcg/actuation Hfa Aerosol Inhaler 1 - 2 inh INHALATION QID PRN (Reason: Shortness Of Breath Or Wheezing) RF: 0 fluticasone propionate 50 mcg/actuation spray,suspension 1 spray INTRANASAL BID RF: 0 Systane (PF) 0.4-0.3 % Dropperette 1 drp OPB QID RF: 0 alosetron 1 mg tablet 1 mg PO BID RF: 0 clonazepam 0.5 mg tablet 0.5 mg PO TID RF: 0 doxepin 100 mg capsule 100 mg PO HS RF: 0 nystatin-triamcinolone 100,000-0.1 unit/g-% cream 1 applic TOPICAL BID RF: 0 montelukast 10 mg tablet 10 mg PO QAM RF: 0 Changed metoprolol succinate 25 mg tablet extended release 24 hr 12.5 mg PO QAM 30 Days Qty: 0 RF: 0 Discontinued clonidine HCl 0.1 mg tablet 0.1 mg PO HS RF: 0 prednisone 10 mg tablet 10 mg PO .TAPER UD RF: 0 azithromycin 250 mg tablet 250 mg PO DAILY RF: 0 Discharge Orders: Discharge Order (Routine); Ordered 09/20/21 Ordered By: Berhane Mcadams Admission Data Admit Date/Time: 09/14/21 17:03 Attending Provider: Berhane Mcadams Admit Provider: Eliana Carter Primary Care Provider: Chris Asencio Other Providers: Eliana Carter ; Oscar Emerson
== END 2021-09-20 21:40 | disposition home or self-care (01) | DRG 177 ==
LOC: ED 13:30 → 2N 17:03 → SUATTDRO 17:03 → 2N 17:58

== ENCOUNTER 2022-12-12 18:57 | Inpatient (IN) ==
[2022-12-12] MEDS ORDERED: SODIUM CHLORIDE 0.9% 1000ML 1,000 ML IV SCH (19:30)
--- NOTE | 2022-12-12 19:42 | Emergency Department Note ---
History of Present Illness General Chief complaint: Diarrhea Stated complaint: DIARREAH 5 DAYS,SICK,VOMIT Time Seen by Provider: 12/12/22 19:08 History of Present Illness Provider Complaint: + diarrhea and + abdominal pain Onset (ago): week(s) 1 Description of Diarrhea: + blood-streaked; no mucousy, no tarry or no bloody (bright red) Associated Abdominal Pain: Yes Location of pain: + diffuse Radiation: + diffuse Severity: moderate Quality: + cramping Pain Consistency: + intermittent Relieved By: + none Exacerbated By: + none Context: + marijuana use; no foreign travel, no possible food poisoning, no sick contacts, no recent antibiotic use, no alcohol abuse, no trauma, no NSAID use, no caffeine or no self induced Associated symptoms: + myalgias; no chest pain, no cough, no fever/chills, no headaches, no nausea/vomiting, no dysuria, no syncope, no weakness, no decreased urine output or no altered mental status Home Medications Medication Instructions Recorded Confirmed Type diphenoxylate-atropine 2.5 2 tab PO Q6 PRN Diarrhea 05/03/18 12/12/22 History mg-0.025 mg tablet furosemide 40 mg tablet 40 mg PO DAILY 05/03/18 12/12/22 History methscopolamine 2.5 mg tablet 2.5 mg PO TID PRN Cramps 05/03/18 12/12/22 History omeprazole 20 mg capsule,delayed 20 mg PO QAM 05/03/18 12/12/22 History release diclofenac sodium 1 % topical gel 2 g topical QID 07/22/18 12/12/22 History fluticasone furoate 100 1 inh inhalation QAM 07/22/18 12/12/22 History mcg-vilanterol 25 mcg/dose inhalation powder (Breo Ellipta) ondansetron 4 mg disintegrating 4 mg PO Q6H PRN Nausea 07/22/18 12/12/22 History tablet albuterol sulfate 2.5 mg/3 mL 2.5 mg continuous nebulization Q4 09/14/21 12/12/22 History (0.083 %) solution for nebulization PRN Shortness Of Breath Or Wheezing albuterol sulfate 90 mcg/actuation 1 - 2 inh inhalation QID PRN 09/14/21 12/12/22 History aerosol inhaler (Proventil HFA) Shortness Of Breath Or Wheezing alosetron 1 mg tablet 1 mg PO BID 09/14/21 12/12/22 History aspirin 81 mg chewable tablet 81 mg PO DAILY 09/14/21 12/12/22 History atorvastatin 40 mg tablet 40 mg PO QAM 09/14/21 12/12/22 History clonazepam 0.5 mg tablet 0.5 mg PO TID PRN Anxiety 09/14/21 12/12/22 History doxepin 100 mg capsule 100 mg PO HS 09/14/21 12/12/22 History famotidine 40 mg tablet 40 mg PO DAILY 09/14/21 12/12/22 History fluticasone propionate 50 2 spray intranasal BID 09/14/21 12/12/22 History mcg/actuation nasal spray,suspension lisinopril 20 mg tablet 20 mg PO QAM 09/14/21 12/12/22 History metoprolol succinate 25 mg 25 mg PO QAM 09/14/21 12/12/22 History tablet,extended release 24 hr montelukast 10 mg tablet 10 mg PO QAM 09/14/21 12/12/22 History pramipexole 1 mg tablet 1 mg PO HS 09/14/21 12/12/22 History prochlorperazine maleate 10 mg 10 mg PO Q6H PRN Nausea 09/14/21 12/12/22 History tablet (Compazine) clonidine HCl 0.1 mg tablet 0.1 mg PO BID 12/12/22 12/12/22 History ferrous gluconate 240 mg (27 mg 240 mg PO DAILY 12/12/22 12/12/22 History iron) tablet (Ferate) metoprolol succinate 25 mg 12.5 mg PO HS 12/12/22 12/12/22 History tablet,extended release 24 hr semaglutide 2 mg/dose (8 mg/3 mL) 0.75 mg subcut WK 12/12/22 12/12/22 History subcutaneous pen injector (Ozempic) Allergies Allergy/AdvReac Type Severity Reaction Status Date / Time bee venom protein (honey bee) Allergy Severe ANAPHYLAXIS Verified 09/14/21 17:11 iodine Allergy Severe ANAPHYLAXIS Verified 09/14/21 17:11 -SHELLFISH colestipol Allergy Unknown RASH Verified 09/14/21 17:11 doxycycline Allergy Unknown HIVES Verified 09/14/21 17:11 glimepiride Allergy Unknown RASH Verified 09/14/21 17:11 glyburide Allergy Unknown RASH Verified 09/14/21 17:11 metformin Allergy Unknown RASH Verified 09/14/21 17:11 ondansetron [From Zofran] Allergy Unknown Unknown Verified 09/14/21 17:35 pioglitazone Allergy Unknown RASH Verified 09/14/21 17:11 rosuvastatin Allergy Unknown ITCHING Verified 09/14/21 17:11 RASH shellfish derived Allergy Unknown SWELLING Verified 09/14/21 17:11 OF FACE AND MOUTH tramadol Allergy Unknown EARS RING, Verified 09/14/21 17:11 FUZZY VISION amitriptyline [From Elavil] AdvReac Unknown WT GAIN Verified 09/14/21 17:11 diphenhydramine AdvReac Unknown HEAD GOES Verified 09/14/21 17:11 CRAZY-RINGING EARS,STRANGE hydroxyzine AdvReac Unknown MENTAL Verified 09/14/21 17:11 CONFUSION pseudoephedrine AdvReac Unknown JITTERINESS Verified 09/14/21 17:11 sulfamethoxazole AdvReac Unknown Unknown Verified 09/14/21 17:35 [From Bactrim] trimethoprim [From Bactrim] AdvReac Unknown Unknown Verified 09/14/21 17:35 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 Depression Diverticular disease DJD (degenerative joint disease), cervical DM type 2 (diabetes mellitus, type 2) IDDM Dyslipidemia GERD (gastroesophageal reflux disease) GERD (gastroesophageal reflux disease) CONTROLLED History of opioid abuse PER RECORDS Hypertension IBS (irritable bowel syndrome) Migraine Neuropathy DIABETIC NEUROPATHY- FEET KATERIN (obstructive sleep apnea) Osteoarthritis Osteoporosis Panic disorder Pulmonary HTN RLS (restless legs syndrome) Temporomandibular joint disorder + CLICKING; NO LOCKING Venous insufficiency Surgical History H/O arthroscopic knee surgery LEFT H/O colonoscopy History of colonoscopy 02/2021, sigmoid diverticulosis, poor prep History of difficult intubation RIGHT SHOULDER SCOPE WITH RCR= 06/29/16= GLIDESCOPE #3 "GOOD VIEW", ETT 7 AT [facility] History of esophagogastroduodenoscopy (EGD) History of repair of rotator cuff B/L History of total knee replacement LEFT Perianal abscess S/P DRAINAGE S/P cholecystectomy S/P hysterectomy Family History Sister Family history of diabetes mellitus Family hx of colon cancer Brother Family history of diabetes mellitus Grandmother (Maternal) Family history of diabetes mellitus Family/Other Family history of diabetes mellitus Other Diabetes Social History Smoking Status: Never smoker Second Hand Exposure: No; Do You Dip or Chew Tobacco: No; Hx Alcohol Use: No Hx Substance Use: No Preferred Language: Latvian Communication Ability: Effective Agency Recruiter Required: No Beliefs That Will Affect Care: None marital status: Current Living Situation: Spouse Current Living Situation Comment: home current occupational status: retired Feels Safe at Home: Yes Assistive Devices: Cane, Glasses, Oxygen - at Night and Walker Physical Exam Vital Signs: Vital Signs - 24 hr 12/12/22 19:02 12/12/22 19:35 12/12/22 19:35 Temperature 36.4 C Temperature Source Oral Pulse Rate 79 74 Pulse Rate [Apical ] 75 Pulse Rate from Sp O2 Sensor Pulse Rhythm [Apic al] Pulse Strength [Ap ical] Respiratory Rate 16 18 Respiratory Effort / Characteristics Respiratory Depth Respiratory Patter n Blood Pressure 65/49 L Blood Pressure [Ri ght Arm] 117/56 L Blood Pressure Jimena n 54 Blood Pressure Jimena n [Right Arm] 76 Pulse Oximetry 98 98 Oxygen Delivery Me thod Room Air Sepsis Recent Feve r Within 48 Hours No Sepsis New/Unexpla ined Change in Men enrique Status No Sepsis Action Take n by Nursing No Action Required 12/12/22 19:35 12/12/22 19:49 12/12/22 20:21 Temperature Temperature Source Pulse Rate Pulse Rate [Apical ] 79 74 Pulse Rate from Sp O2 Sensor Pulse Rhythm [Apic al] Pulse Strength [Ap ical] Respiratory Rate 20 Respiratory Effort / Characteristics Non-Labored Respiratory Depth Normal Respiratory Patter n Regular Blood Pressure Blood Pressure [Ri ght Arm] 107/51 L 74/45 L Blood Pressure Jimena n Blood Pressure Jimena n [Right Arm] 69 54 Pulse Oximetry 98 98 Oxygen Delivery Me thod Room Air Sepsis Recent Feve r Within 48 Hours Sepsis New/Unexpla ined Change in Men enrique Status Sepsis Action Take n by Nursing 12/12/22 20:49 12/12/22 20:57 12/12/22 19:29 Temperature Temperature Source Pulse Rate 74 Pulse Rate [Apical ] 85 82 Pulse Rate from Sp O2 Sensor Pulse Rhythm [Apic al] Regular Pulse Strength [Ap ical] Normal Respiratory Rate 21 22 23 Respiratory Effort / Characteristics Non-Labored Non-Labored Respiratory Depth Normal Normal Respiratory Patter n Regular Regular Blood Pressure Blood Pressure [Ri ght Arm] 91/43 L 70/43 L Blood Pressure Jimena n Blood Pressure Jimena n [Right Arm] 59 52 Pulse Oximetry 100 98 Oxygen Delivery Me thod Room Air Sepsis Recent Feve r Within 48 Hours Sepsis New/Unexpla ined Change in Men enrique Status Sepsis Action Take n by Nursing 12/12/22 19:30 12/12/22 19:35 12/12/22 19:40 Temperature Temperature Source Pulse Rate 75 74 74 Pulse Rate [Apical ] Pulse Rate from Sp O2 Sensor Pulse Rhythm [Apic al] Pulse Strength [Ap ical] Respiratory Rate 21 18 18 Respiratory Effort / Characteristics Respiratory Depth Respiratory Patter n Blood Pressure Blood Pressure [Ri ght Arm] Blood Pressure Jimena n Blood Pressure Jimena n [Right Arm] Pulse Oximetry Oxygen Delivery Me thod Sepsis Recent Feve r Within 48 Hours Sepsis New/Unexpla ined Change in Men enrique Status Sepsis Action Take n by Nursing 12/12/22 19:45 12/12/22 19:50 12/12/22 19:55 Temperature Temperature Source Pulse Rate 80 78 78 Pulse Rate [Apical ] Pulse Rate from Sp O2 Sensor Pulse Rhythm [Apic al] Pulse Strength [Ap ical] Respiratory Rate 24 20 24 Respiratory Effort / Characteristics Respiratory Depth Respiratory Patter n Blood Pressure Blood Pressure [Ri ght Arm] Blood Pressure Jimena n Blood Pressure Jimena n [Right Arm] Pulse Oximetry Oxygen Delivery Me thod Sepsis Recent Feve r Within 48 Hours Sepsis New/Unexpla ined Change in Men enrique Status Sepsis Action Take n by Nursing 12/12/22 20:12 12/12/22 20:12 12/12/22 20:15 Temperature Temperature Source Pulse Rate 76 76 Pulse Rate [Apical ] Pulse Rate from Sp O2 Sensor Pulse Rhythm [Apic al] Pulse Strength [Ap ical] Respiratory Rate 19 28 H Respiratory Effort / Characteristics Respiratory Depth Respiratory Patter n Blood Pressure 84/42 L Blood Pressure [Ri ght Arm] Blood Pressure Jimena n 50 Blood Pressure Jimena n [Right Arm] Pulse Oximetry Oxygen Delivery Me thod Sepsis Recent Feve r Within 48 Hours Sepsis New/Unexpla ined Change in Men enrique Status Sepsis Action Take n by Nursing 12/12/22 20:16 12/12/22 20:16 12/12/22 20:20 Temperature Temperature Source Pulse Rate 78 75 Pulse Rate [Apical ] Pulse Rate from Sp O2 Sensor Pulse Rhythm [Apic al] Pulse Strength [Ap ical] Respiratory Rate 21 19 Respiratory Effort / Characteristics Respiratory Depth Respiratory Patter n Blood Pressure 74/45 L Blood Pressure [Ri ght Arm] Blood Pressure Jimena n 63 Blood Pressure Jimena n [Right Arm] Pulse Oximetry Oxygen Delivery Me thod Sepsis Recent Feve r Within 48 Hours Sepsis New/Unexpla ined Change in Men enrique Status Sepsis Action Take n by Nursing 12/12/22 20:25 12/12/22 20:26 12/12/22 20:26 Temperature Temperature Source Pulse Rate 75 80 Pulse Rate [Apical ] Pulse Rate from Sp O2 Sensor Pulse Rhythm [Apic al] Pulse Strength [Ap ical] Respiratory Rate 22 27 H Respiratory Effort / Characteristics Respiratory Depth Respiratory Patter n Blood Pressure 81/42 L Blood Pressure [Ri ght Arm] Blood Pressure Jimena n 50 Blood Pressure Jimena n [Right Arm] Pulse Oximetry Oxygen Delivery Me thod Sepsis Recent Feve r Within 48 Hours Sepsis New/Unexpla ined Change in Men enrique Status Sepsis Action Take n by Nursing 12/12/22 20:30 12/12/22 20:33 12/12/22 20:33 Temperature Temperature Source Pulse Rate 77 75 Pulse Rate [Apical ] Pulse Rate from Sp O2 Sensor Pulse Rhythm [Apic al] Pulse Strength [Ap ical] Respiratory Rate 21 20 Respiratory Effort / Characteristics Respiratory Depth Respiratory Patter n Blood Pressure 82/34 L Blood Pressure [Ri ght Arm] Blood Pressure Jimena n 48 Blood Pressure Jimena n [Right Arm] Pulse Oximetry Oxygen Delivery Me thod Sepsis Recent Feve r Within 48 Hours Sepsis New/Unexpla ined Change in Men enrique Status Sepsis Action Take n by Nursing 12/12/22 20:35 12/12/22 20:35 12/12/22 20:40 Temperature Temperature Source Pulse Rate 80 Pulse Rate [Apical ] Pulse Rate from Sp O2 Sensor Pulse Rhythm [Apic al] Pulse Strength [Ap ical] Respiratory Rate 22 Respiratory Effort / Characteristics Respiratory Depth Respiratory Patter n Blood Pressure 63/43 L 75/46 L Blood Pressure [Ri ght Arm] Blood Pressure Jimena n 51 55 Blood Pressure Jimena n [Right Arm] Pulse Oximetry Oxygen Delivery Me thod Sepsis Recent Feve r Within 48 Hours Sepsis New/Unexpla ined Change in Men enrique Status Sepsis Action Take n by Nursing 12/12/22 20:40 12/12/22 20:45 12/12/22 20:45 Temperature Temperature Source Pulse Rate 81 81 Pulse Rate [Apical ] Pulse Rate from Sp O2 Sensor 78 81 Pulse Rhythm [Apic al] Pulse Strength [Ap ical] Respiratory Rate 20 22 Respiratory Effort / Characteristics Respiratory Depth Respiratory Patter n Blood Pressure 91/43 L Blood Pressure [Ri ght Arm] Blood Pressure Jimena n 61 Blood Pressure Jimena n [Right Arm] Pulse Oximetry 97 100 Oxygen Delivery Me thod Sepsis Recent Feve r Within 48 Hours Sepsis New/Unexpla ined Change in Men enrique Status Sepsis Action Take n by Nursing 12/12/22 20:50 12/12/22 20:55 12/12/22 20:56 Temperature Temperature Source Pulse Rate 84 80 Pulse Rate [Apical ] Pulse Rate from Sp O2 Sensor 84 Pulse Rhythm [Apic al] Pulse Strength [Ap ical] Respiratory Rate 21 25 H Respiratory Effort / Characteristics Respiratory Depth Respiratory Patter n Blood Pressure 70/43 L Blood Pressure [Ri ght Arm] Blood Pressure Jimena n 50 Blood Pressure Jimena n [Right Arm] Pulse Oximetry 98 Oxygen Delivery Me thod Sepsis Recent Feve r Within 48 Hours Sepsis New/Unexpla ined Change in Men enrique Status Sepsis Action Take n by Nursing 12/12/22 20:56 12/12/22 21:00 12/12/22 21:01 Temperature Temperature Source Pulse Rate 82 82 82 Pulse Rate [Apical ] Pulse Rate from Sp O2 Sensor Pulse Rhythm [Apic al] Pulse Strength [Ap ical] Respiratory Rate 22 29 H 23 Respiratory Effort / Characteristics Respiratory Depth Respiratory Patter n Blood Pressure Blood Pressure [Ri ght Arm] Blood Pressure Jimena n Blood Pressure Jimena n [Right Arm] Pulse Oximetry Oxygen Delivery Me thod Sepsis Recent Feve r Within 48 Hours Sepsis New/Unexpla ined Change in Men enrique Status Sepsis Action Take n by Nursing 12/12/22 21:01 12/12/22 21:05 12/12/22 21:06 Temperature Temperature Source Pulse Rate 83 83 Pulse Rate [Apical ] Pulse Rate from Sp O2 Sensor 87 86 Pulse Rhythm [Apic al] Pulse Strength [Ap ical] Respiratory Rate 25 H 25 H Respiratory Effort / Characteristics Respiratory Depth Respiratory Patter n Blood Pressure 83/30 L Blood Pressure [Ri ght Arm] Blood Pressure Jimena n 59 Blood Pressure Jimena n [Right Arm] Pulse Oximetry 100 90 Oxygen Delivery Me thod Sepsis Recent Feve r Within 48 Hours Sepsis New/Unexpla ined Change in Men enrique Status Sepsis Action Take n by Nursing 12/12/22 21:06 12/12/22 21:10 12/12/22 21:11 Temperature Temperature Source Pulse Rate 83 85 Pulse Rate [Apical ] Pulse Rate from Sp O2 Sensor 83 102 H Pulse Rhythm [Apic al] Pulse Strength [Ap ical] Respiratory Rate 23 23 Respiratory Effort / Characteristics Respiratory Depth Respiratory Patter n Blood Pressure 75/45 L Blood Pressure [Ri ght Arm] Blood Pressure Jimena n 58 Blood Pressure Jimena n [Right Arm] Pulse Oximetry 98 73 L Oxygen Delivery Me thod Sepsis Recent Feve r Within 48 Hours Sepsis New/Unexpla ined Change in Men enrique Status Sepsis Action Take n by Nursing 12/12/22 21:11 12/12/22 21:15 12/12/22 21:20 Temperature Temperature Source Pulse Rate 85 88 Pulse Rate [Apical ] Pulse Rate from Sp O2 Sensor 85 84 Pulse Rhythm [Apic al] Pulse Strength [Ap ical] Respiratory Rate 23 28 H Respiratory Effort / Characteristics Respiratory Depth Respiratory Patter n Blood Pressure 93/45 L Blood Pressure [Ri ght Arm] Blood Pressure Jimena n 46 Blood Pressure Jimena n [Right Arm] Pulse Oximetry 98 98 Oxygen Delivery Me thod Sepsis Recent Feve r Within 48 Hours Sepsis New/Unexpla ined Change in Men enrique Status Sepsis Action Take n by Nursing 12/12/22 21:21 12/12/22 21:21 12/12/22 21:25 Temperature Temperature Source Pulse Rate 89 Pulse Rate [Apical ] Pulse Rate from Sp O2 Sensor Pulse Rhythm [Apic al] Pulse Strength [Ap ical] Respiratory Rate 25 H Respiratory Effort / Characteristics Respiratory Depth Respiratory Patter n Blood Pressure 70/37 L 77/41 L Blood Pressure [Ri ght Arm] Blood Pressure Jimena n 56 61 Blood Pressure Jimena n [Right Arm] Pulse Oximetry 72 L Oxygen Delivery Me thod Sepsis Recent Feve r Within 48 Hours Sepsis New/Unexpla ined Change in Men enrique Status Sepsis Action Take n by Nursing 12/12/22 21:25 12/12/22 21:30 12/12/22 21:30 Temperature Temperature Source Pulse Rate 87 89 Pulse Rate [Apical ] Pulse Rate from Sp O2 Sensor 86 83 Pulse Rhythm [Apic al] Pulse Strength [Ap ical] Respiratory Rate 21 20 Respiratory Effort / Characteristics Respiratory Depth Respiratory Patter n Blood Pressure 84/46 L Blood Pressure [Ri ght Arm] Blood Pressure Jimena n 51 Blood Pressure Jimena n [Right Arm] Pulse Oximetry 99 98 Oxygen Delivery Me thod Sepsis Recent Feve r Within 48 Hours Sepsis New/Unexpla ined Change in Men enrique Status Sepsis Action Take n by Nursing 12/12/22 21:46 12/12/22 21:35 12/12/22 21:36 Temperature 36.5 C Temperature Source Oral Pulse Rate 84 Pulse Rate [Apical ] Pulse Rate from Sp O2 Sensor 84 Pulse Rhythm [Apic al] Pulse Strength [Ap ical] Respiratory Rate 17 Respiratory Effort / Characteristics Respiratory Depth Respiratory Patter n Blood Pressure 79/40 L Blood Pressure [Ri ght Arm] Blood Pressure Jimena n 54 Blood Pressure Jimena n [Right Arm] Pulse Oximetry 99 Oxygen Delivery Me thod Sepsis Recent Feve r Within 48 Hours Sepsis New/Unexpla ined Change in Men enrique Status Sepsis Action Take n by Nursing 12/12/22 21:36 12/12/22 21:40 12/12/22 21:40 Temperature Temperature Source Pulse Rate 83 81 Pulse Rate [Apical ] Pulse Rate from Sp O2 Sensor 82 82 Pulse Rhythm [Apic al] Pulse Strength [Ap ical] Respiratory Rate 21 23 Respiratory Effort / Characteristics Respiratory Depth Respiratory Patter n Blood Pressure 53/39 L Blood Pressure [Ri ght Arm] Blood Pressure Jimena n 46 Blood Pressure Jimena n [Right Arm] Pulse Oximetry 98 97 Oxygen Delivery Me thod Sepsis Recent Feve r Within 48 Hours Sepsis New/Unexpla ined Change in Men enrique Status Sepsis Action Take n by Nursing 12/12/22 21:44 12/12/22 21:44 12/12/22 21:45 Temperature Temperature Source Pulse Rate 83 83 Pulse Rate [Apical ] Pulse Rate from Sp O2 Sensor 84 80 Pulse Rhythm [Apic al] Pulse Strength [Ap ical] Respiratory Rate 21 20 Respiratory Effort / Characteristics Respiratory Depth Respiratory Patter n Blood Pressure 75/40 L Blood Pressure [Ri ght Arm] Blood Pressure Jimena n 54 Blood Pressure Jimena n [Right Arm] Pulse Oximetry 96 91 Oxygen Delivery Me thod Sepsis Recent Feve r Within 48 Hours Sepsis New/Unexpla ined Change in Men enrique Status Sepsis Action Take n by Nursing 12/12/22 21:46 12/12/22 21:46 12/12/22 21:50 Temperature Temperature Source Pulse Rate 82 88 Pulse Rate [Apical ] Pulse Rate from Sp O2 Sensor 82 79 Pulse Rhythm [Apic al] Pulse Strength [Ap ical] Respiratory Rate 22 21 Respiratory Effort / Characteristics Respiratory Depth Respiratory Patter n Blood Pressure 89/42 L Blood Pressure [Ri ght Arm] Blood Pressure Jimena n 54 Blood Pressure Jimena n [Right Arm] Pulse Oximetry 99 91 Oxygen Delivery Me thod Sepsis Recent Feve r Within 48 Hours Sepsis New/Unexpla ined Change in Men enrique Status Sepsis Action Take n by Nursing 12/12/22 21:51 12/12/22 21:51 12/12/22 21:55 Temperature Temperature Source Pulse Rate 87 87 Pulse Rate [Apical ] Pulse Rate from Sp O2 Sensor 82 87 Pulse Rhythm [Apic al] Pulse Strength [Ap ical] Respiratory Rate 21 25 H Respiratory Effort / Characteristics Respiratory Depth Respiratory Patter n Blood Pressure 129/56 L Blood Pressure [Ri ght Arm] Blood Pressure Jimena n 75 Blood Pressure Jimena n [Right Arm] Pulse Oximetry 95 100 Oxygen Delivery Me thod Sepsis Recent Feve r Within 48 Hours Sepsis New/Unexpla ined Change in Men enrique Status Sepsis Action Take n by Nursing Physical Exam: Physical Exam HENT: Exam performed. -Head: Normocephalic and atraumatic. -Right Ear: External ear normal. No mastoid erythema -Left Ear: External ear normal. No mastoid erythema -Mouth/Throat: The oropharynx is clear and moist. No trismus in the jaw. No dental abscesses or uvula swelling. No oropharyngeal exudate or tonsillar abscesses. EYES: Conjunctivae and EOM are normal. Right eye exhibits no discharge. Left eye exhibits no discharge. No scleral icterus. NECK: Normal range of motion. Neck supple. No tracheal deviation and normal range of motion present. CV: Normal rate, regular rhythm, normal heart sounds and intact distal pulses. There is no peripheral edema. Palpable radial pulses bue. PULM/CHEST: Effort normal and breath sounds normal. No respiratory distress. No stridor. She has no wheezes. She has no rales. ABD: The abdomen is soft.There is diffuse tenderness to palpation. There is no rebound, no guarding. MUSC: pelvis stable NEURO: She is alert and oriented to person, place, and time. She has normal strength. No cranial nerve deficit or sensory deficit. Coordination and gait normal. GCS eye subscore is 4. GCS verbal subscore is 5. GCS motor subscore is 6. Cerebellar tests wnl. Course Course 1907: The patient was evaluated in room C11. A complete history and physical exam was performed Cardiac monitoring: An order was placed for continuous cardiac monitoring. The monitor shows a rate of 80 with sinus rhythm interpreted by nj Sepsis protocols initiated. EKG shows peaked T waves. 1954: Blood pressure improved with IV fluids. Lactic acid is elevated 2.7. Second liter of IV fluids ordered for the patient for 30 cc/kg bolus based off the patient's ideal body weight. 2029: Patient becoming hypotensive again. Labs show leukocytosis of 31.14. Hemoglobin 10.7. VBG venous pH 7.22. Venous PCO2 25. Venous bicarb 10. Sodium 122. Potassium 6.6. Chloride 88. Bicarb 9. BUN 174. Creatinine 13.3. Patient has history of CKD however her last creatinine in 2021 was 0.95. Lactic acid 2.7. Troponin 81.7. Total CK7 21. Procalcitonin 14.61. Third l iter of IV fluid ordered for the patient. Procalcitonin 14.61. Cefepime 2 g ordered for the patient, Schaefer catheter was placed and appears very cloudy. Spoke with Dr. Mimi Trejo nephrology and I went over the labs and electrolytes with him verbatim. He states he thinks that the patient is in prerenal DAVONTE. He agrees with the calcium gluconate dextrose and insulin combination for hyperkalemia. He agrees with continuing the IV fluids third liter as necessary. He states to give 2 Amps of bicarb at this time. He recommends no bicarb drip and no insulin drip at this time. He recommends Lokelma 30 g p.o. immediately and then 10 g PO 3 times daily after that. He recommends checking a BMP every 4 hours and states that the patient can be managed at this facility no need for transfer at this time. He states that the hospitalist team can call him if they need help with her electrolyte management. It is thought that the patient is most likely suffering from sepsis which is resulting in the patient's DAVONTE. Discussed the case with Sy SUPERVISOR SALVAGE for ICU made him aware that the patient will be coming over to the ICU. [facility] who is in agreement with the plan also. 2054: Repeat blood pressure 91/43 with IV fluids running. We will continue IV fluids. 2115: Blood pressure 90/40 receiving third liter of fluid. Dr. Hinton at bedside evaluating the patient. 2139: Patient becoming hypotensive again with third liter of normal saline almo st done, patient be started on Levophed drip. Administered Medications Norepinephrine Bitartrate (Levophed/D5w) 4 mg in 250 mls @ 20.963 mls/hr IV .[id number] [facility]; Protocol Stop: 01/11/23 21:29 Last Titration: 12/12/22 21:41 Dose: 0.15 mcg/kg/min, 62.9 mls/hr Documented By: Admin: 12/12/22 21:28 Dose: 0.05 mcg/kg/min, 21 mls/hr Documented By: JACKELIN Co-signed By: JEISON Discontinued Medications Dextrose (Dextrose 50% 50 Ml Syringe) 50 ml IV NOW STA Stop: 12/12/22 20:11 Last Admin: 12/12/22 20:29 Dose: 50 ml Documented By: PHYLLIS Sodium Chloride (Nss 1000ml) 1,000 mls @ 999 mls/hr IV .Q1H1M FRANCESCO Stop: 12/12/22 20:30 Last Infusion: 12/12/22 21:08 Dose: 0 mls/hr Documented By: Admin: 12/12/22 19:38 Dose: 999 mls/hr Documented By: PHYLLIS Sodium Chloride (Nss 1000ml) 1,000 mls @ 999 mls/hr IV .Q1H1M ONE Stop: 12/12/22 20:48 Last Infusion: 12/12/22 21:38 Dose: 0 mls/hr Documented By: Admin: 12/12/22 20:29 Dose: 999 mls/hr Documented By: PHYLLIS Calcium Chloride 500 mg/ (Dextrose) 55 mls @ 240 mls/hr IV ONCE STA Stop: 12/12/22 20:23 Last Infusion: 12/12/22 21:08 Dose: 0 mls/hr Documented By: Admin: 12/12/22 20:38 Dose: 240 mls/hr Documented By: PHYLLIS Insulin Human Regular 10 units (/ Syringe) 9.9 mls @ 3 mls/sec IV ONE STA Stop: 12/12/22 20:11 Last Admin: 12/12/22 20:28 Dose: 3 mls/sec Documented By: PHYLLIS Co-signed By: JACKELIN Cefepime HCl (Maxipime) 2,000 mg in 20 mls @ 5 mls/min IV NOW STA; Protocol Stop: 12/12/22 20:23 Last Admin: 12/12/22 20:29 Dose: 5 mls/min Documented By: PHYLLIS Sodium Bicarbonate 150 meq/ (Dextrose) 1,150 mls @ 290 mls/hr IV .Q3H58M STA Stop: 12/13/22 00:21 Last Admin: 12/12/22 20:47 Dose: Not Given Documented By: PHYLLIS Acetaminophen (Ofirmev) 1,000 mg in 100 mls @ 400 mls/hr IV NOW STA Stop: 12/12/22 22:11 Last Admin: 12/12/22 22:03 Dose: 400 mls/hr Documented By: JACKELIN Insulin Human Regular (Novolin-R Insulin Per Unit Charge) Confirm Administered Dose 10 units .ROUTE .STK-MED ONE Stop: 12/12/22 20:26 Last Admin: 12/12/22 20:29 Dose: Not Given Documented By: PHYLLIS Norepinephrine Bitartrate (Norepinephrine/D5w 4 Mg/250 Ml) Confirm Administered Dose 4 mg IV .STK-MED ONE Stop: 12/12/22 21:24 Last Admin: 12/12/22 21:28 Dose: Not Given Documented By: JACKELIN Sodium Bicarbonate (Sodium Bicarb 8.4% Inj 50 Meq/50 Ml Syr) 50 meq IV NOW STA Stop: 12/12/22 20:33 Last Admin: 12/12/22 20:40 Dose: 50 meq Documented By: PHYLLIS Sodium Bicarbonate (Sodium Bicarb 8.4% Inj 50 Meq/50 Ml Syr) 50 meq IV NOW STA Stop: 12/12/22 20:33 Last Admin: 12/12/22 20:40 Dose: 50 meq Documented By: PHYLLIS Sodium Zirconium Cyclosilicate (Sodium Zirconium Cyclosilicate 10 Gm Packet) 30 gm PO NOW STA Stop: 12/12/22 20:35 Last Admin: 12/12/22 20:41 Dose: 30 gm Documented By: PHYLLIS Medical Decision Making Laboratory Data Attestation: I reviewed the patient's lab results. 12/12/22 19:27 12/12/22 19:27 Lab Results 12/12/22 12/12/22 12/12/22 Range/Units 19:27 19:27 19:27 WBC 31.14 H* (4.8-10.8) K/ul RBC 3.51 L (4.20-5.40) M/uL Hgb 10.7 L (12.0-16.0) g/dl Hct 30.8 L (37.0-47.0) % MCV 87.7 (80.0-100.0) fL MCH 30.5 (25.0-34.0) pg MCHC 34.7 (32.0-36.0) g/dL RDW Std Deviation 46.5 H (36.4-46.3) fL RDW Coeff of Pérez 14.5 (11.5-14.5) % Plt Count 300 (130-400) K/uL MPV 12.4 (9.4-12.4) fL Immature Gran % (Auto) 1.3 % Neut % (Auto) 91.2 % Lymph % (Auto) 1.5 % [place] % (Auto) 5.4 % Eos % (Auto) 0.4 % Baso % (Auto) 0.2 % Neut # (Auto) 28.40 H (1.40-6.50) K/uL Lymph # (Auto) 0.47 L (1.2-3.4) K/uL [place] # (Auto) 1.68 H (0.11-0.59) K/uL Eos # (Auto) 0.11 (0-0.50) K/uL Baso # (Auto) 0.07 (0-0.2) K/uL Immature Gran # (Auto) 0.41 H (0.01-0.20) K/uL Dohle Bodies 1+ Polychromasia 1+ Echinocytes 1+ PT 11.9 (9.0-12.0) Seconds INR 1.1 (0.9-1.1) APTT 24.2 (21.0-31.0) Seconds PTT Ratio 0.9 VBG pH (7.36-7.41) VBG pCO2 (38-50) mmHg VBG pO2 mmHg VBG HCO3 mmol/L VBG O2 Saturation % VBG Base Excess mEq/L Sodium 122 L (136-145) mmol/L Potassium 6.6 H* (3.5-5.1) mmol/L Chloride 88 L (98-107) mmol/L Carbon Dioxide 9 L* (21-32) mmol/L Anion Gap 25 H (3-11) BUN 174 H (6-23) mg/dl Creatinine 13.30 H* (0.6-1.2) mg/dl Est Cr Clr Drug Dosing Not Reportable Est GFR ( Amer) 2.9 ml/min Est GFR (Non-Af Amer) 2.5 ml/min BUN/Creatinine Ratio 13.1 (10-20) Glucose 230 H (70-99(Fasting)) mg/dl POC Glucose (70-99) mg/dl Lactate (0.4-2.0) mmol/L Calcium 9.7 (8.6-10.3) mg/dl Magnesium 1.8 (1.7-2.4) mg/dl Total Bilirubin 0.6 (0.2-1.0) mg/dl Direct Bilirubin 0.3 H (0-0.2) mg/dl AST 53 H (13-39) U/L ALT 32 (7-52) U/L Alkaline Phosphatase 246 H (34-104) U/L Total Creatine Kinase 721 H (26-192) U/L Troponin I High Sens 81.7 H* (0-14) pg/ml Total Protein 7.3 (6.0-8.3) gm/dl Albumin 3.4 (3.4-5.0) gm/dl Lipase 187 H (11-82) U/L Procalcitonin (0-0.5) ng/ml Urine Color Urine Appearance (Clear) Urine pH (4.5-7.5) Ur Specific [place] (1.000-1.030) Urine Protein (Negative) Urine Glucose (UA) (Negative) Urine Ketones (Negative) Urine Blood (Negative) Urine Nitrite (Negative) Urine Bilirubin (Negative) Urine Urobilinogen (Negative) Ur Leukocyte Esterase (Negative) Urine WBC (Auto) (0-5) /hpf Urine RBC (Auto) (0-4) /hpf U Hyaline Cast (Auto) (0-5) /lpf U Epithel Cells (Auto) (0-5) /lpf Urine Bacteria (Auto) (Negative) Ur Renal Epithelial Cell (0-5) /lpf Urine Yeast Adenovirus (PCR) (NotDetected) B. pertussis DNA (PCR) (NotDetected) B.parapertussis DNA PCR (NotDetected) C. pneumoniae DNA (PCR) (NotDetected) Coronavirus OC43 (PCR) (NotDetected) Coronavirus HKU1 (PCR) (NotDetected) Coronavirus 229E (PCR) (NotDetected) SARS-CoV-2 (PCR) (NotDetected) Coronavirus NL63 (PCR) (NotDetected) Human Metapneumovir PCR (NotDetected) Influenza Type A (PCR) (NotDetected) Influenza Type B (PCR) (NotDetected) M. pneumoniae (PCR) (NotDetected) Parainfluenza 1 (PCR) (NotDetected) Parainfluenza 2 (PCR) (NotDetected) Parainfluenza 3 (PCR) (NotDetected) Parainfluenza 4 (PCR) (NotDetected) RSV (PCR) (NotDetected) Entero/Rhino (PCR) (NotDetected) 12/12/22 12/12/22 12/12/22 Range/Units 19:27 19:27 19:27 WBC (4.8-10.8) K/ul RBC (4.20-5.40) M/uL Hgb (12.0-16.0) g/dl Hct (37.0-47.0) % MCV (80.0-100.0) fL MCH (25.0-34.0) pg MCHC (32.0-36.0) g/dL RDW Std Deviation (36.4-46.3) fL RDW Coeff of Pérez (11.5-14.5) % Plt Count (130-400) K/uL MPV (9.4-12.4) fL Immature Gran % (Auto) % Neut % (Auto) % Lymph % (Auto) % [place] % (Auto) % Eos % (Auto) % Baso % (Auto) % Neut # (Auto) (1.40-6.50) K/uL Lymph # (Auto) (1.2-3.4) K/uL [place] # (Auto) (0.11-0.59) K/uL Eos # (Auto) (0-0.50) K/uL Baso # (Auto) (0-0.2) K/uL Immature Gran # (Auto) (0.01-0.20) K/uL Dohle Bodies Polychromasia Echinocytes PT (9.0-12.0) Seconds INR (0.9-1.1) APTT (21.0-31.0) Seconds PTT Ratio VBG pH (7.36-7.41) VBG pCO2 (38-50) mmHg VBG pO2 mmHg VBG HCO3 mmol/L VBG O2 Saturation % VBG Base Excess mEq/L Sodium (136-145) mmol/L Potassium (3.5-5.1) mmol/L Chloride (98-107) mmol/L Carbon Dioxide (21-32) mmol/L Anion Gap (3-11) BUN (6-23) mg/dl Creatinine (0.6-1.2) mg/dl Est Cr Clr Drug Dosing Est GFR ( Amer) ml/min Est GFR (Non-Af Amer) ml/min BUN/Creatinine Ratio (10-20) Glucose (70-99(Fasting)) mg/dl POC Glucose (70-99) mg/dl Lactate 2.7 H* (0.4-2.0) mmol/L Calcium (8.6-10.3) mg/dl Magnesium (1.7-2.4) mg/dl Total Bilirubin (0.2-1.0) mg/dl Direct Bilirubin (0-0.2) mg/dl AST (13-39) U/L ALT (7-52) U/L Alkaline Phosphatase (34-104) U/L Total Creatine Kinase (26-192) U/L Troponin I High Sens (0-14) pg/ml Total Protein (6.0-8.3) gm/dl Albumin (3.4-5.0) gm/dl Lipase (11-82) U/L Procalcitonin 14.61 H (0-0.5) ng/ml Urine Color Urine Appearance (Clear) Urine pH (4.5-7.5) Ur Specific [place] (1.000-1.030) Urine Protein (Negative) Urine Glucose (UA) (Negative) Urine Ketones (Negative) Urine Blood (Negative) Urine Nitrite (Negative) Urine Bilirubin (Negative) Urine Urobilinogen (Negative) Ur Leukocyte Esterase (Negative) Urine WBC (Auto) (0-5) /hpf Urine RBC (Auto) (0-4) /hpf U Hyaline Cast (Auto) (0-5) /lpf U Epithel Cells (Auto) (0-5) /lpf Urine Bacteria (Auto) (Negative) Ur Renal Epithelial Cell (0-5) /lpf Urine Yeast Adenovirus (PCR) Not Detected (NotDetected) B. pertussis DNA (PCR) Not Detected (NotDetected) B.parapertussis DNA PCR Not Detected (NotDetected) C. pneumoniae DNA (PCR) Not Detected (NotDetected) Coronavirus OC43 (PCR) Not Detected (NotDetected) Coronavirus HKU1 (PCR) Not Detected (NotDetected) Coronavirus 229E (PCR) Not Detected (NotDetected) SARS-CoV-2 (PCR) Not Detected (NotDetected) Coronavirus NL63 (PCR) Not Detected (NotDetected) Human Metapneumovir PCR Not Detected (NotDetected) Influenza Type A (PCR) Not Detected (NotDetected) Influenza Type B (PCR) Not Detected (NotDetected) M. pneumoniae (PCR) Not Detected (NotDetected) Parainfluenza 1 (PCR) Not Detected (NotDetected) Parainfluenza 2 (PCR) Not Detected (NotDetected) Parainfluenza 3 (PCR) Not Detected (NotDetected) Parainfluenza 4 (PCR) Not Detected (NotDetected) RSV (PCR) Not Detected (NotDetected) Entero/Rhino (PCR) Not Detected (NotDetected) 12/12/22 12/12/22 12/12/22 Range/Units 19:34 19:46 20:33 WBC (4.8-10.8) K/ul RBC (4.20-5.40) M/uL Hgb (12.0-16.0) g/dl Hct (37.0-47.0) % MCV (80.0-100.0) fL MCH (25.0-34.0) pg MCHC (32.0-36.0) g/dL RDW Std Deviation (36.4-46.3) fL RDW Coeff of Pérez (11.5-14.5) % Plt Count (130-400) K/uL MPV (9.4-12.4) fL Immature Gran % (Auto) % Neut % (Auto) % Lymph % (Auto) % [place] % (Auto) % Eos % (Auto) % Baso % (Auto) % Neut # (Auto) (1.40-6.50) K/uL Lymph # (Auto) (1.2-3.4) K/uL [place] # (Auto) (0.11-0.59) K/uL Eos # (Auto) (0-0.50) K/uL Baso # (Auto) (0-0.2) K/uL Immature Gran # (Auto) (0.01-0.20) K/uL Dohle Bodies Polychromasia Echinocytes PT (9.0-12.0) Seconds INR (0.9-1.1) APTT (21.0-31.0) Seconds PTT Ratio VBG pH 7.22 L (7.36-7.41) VBG pCO2 25 L (38-50) mmHg VBG pO2 39 mmHg VBG HCO3 10 mmol/L VBG O2 Saturation < 60.0 % VBG Base Excess -15.8 mEq/L Sodium (136-145) mmol/L Potassium (3.5-5.1) mmol/L Chloride (98-107) mmol/L Carbon Dioxide (21-32) mmol/L Anion Gap (3-11) BUN (6-23) mg/dl Creatinine (0.6-1.2) mg/dl Est Cr Clr Drug Dosing Est GFR ( Amer) ml/min Est GFR (Non-Af Amer) ml/min BUN/Creatinine Ratio (10-20) Glucose (70-99(Fasting)) mg/dl POC Glucose 236 H (70-99) mg/dl Lactate (0.4-2.0) mmol/L Calcium (8.6-10.3) mg/dl Magnesium (1.7-2.4) mg/dl Total Bilirubin (0.2-1.0) mg/dl Direct Bilirubin (0-0.2) mg/dl AST (13-39) U/L ALT (7-52) U/L Alkaline Phosphatase (34-104) U/L Total Creatine Kinase (26-192) U/L Troponin I High Sens (0-14) pg/ml Total Protein (6.0-8.3) gm/dl Albumin (3.4-5.0) gm/dl Lipase (11-82) U/L Procalcitonin (0-0.5) ng/ml Urine Color Dark Yellow Urine Appearance Turbid A (Clear) Urine pH 7.0 (4.5-7.5) Ur Specific [place] 1.016 (1.000-1.030) Urine Protein 3+ H (Negative) Urine Glucose (UA) Negative (Negative) Urine Ketones Negative (Negative) Urine Blood 3+ H (Negative) Urine Nitrite Negative (Negative) Urine Bilirubin Negative (Negative) Urine Urobilinogen Negative (Negative) Ur Leukocyte Esterase 3+ H (Negative) Urine WBC (Auto) >30 H (0-5) /hpf Urine RBC (Auto) 10-30 H (0-4) /hpf U Hyaline Cast (Auto) 0 (0-5) /lpf U Epithel Cells (Auto) >30 H (0-5) /lpf Urine Bacteria (Auto) 4+ H (Negative) Ur Renal Epithelial Cell 10-20 H (0-5) /lpf Urine Yeast Not Reportable Adenovirus (PCR) (NotDetected) B. pertussis DNA (PCR) (NotDetected) B.parapertussis DNA PCR (NotDetected) C. pneumoniae DNA (PCR) (NotDetected) Coronavirus OC43 (PCR) (NotDetected) Coronavirus HKU1 (PCR) (NotDetected) Coronavirus 229E (PCR) (NotDetected) SARS-CoV-2 (PCR) (NotDetected) Coronavirus NL63 (PCR) (NotDetected) Human Metapneumovir PCR (NotDetected) Influenza Type A (PCR) (NotDetected) Influenza Type B (PCR) (NotDetected) M. pneumoniae (PCR) (NotDetected) Parainfluenza 1 (PCR) (NotDetected) Parainfluenza 2 (PCR) (NotDetected) Parainfluenza 3 (PCR) (NotDetected) Parainfluenza 4 (PCR) (NotDetected) RSV (PCR) (NotDetected) Entero/Rhino (PCR) (NotDetected) 12/12/22 Range/Units 21:33 WBC (4.8-10.8) K/ul RBC (4.20-5.40) M/uL Hgb (12.0-16.0) g/dl Hct (37.0-47.0) % MCV (80.0-100.0) fL MCH (25.0-34.0) pg MCHC (32.0-36.0) g/dL RDW Std Deviation (36.4-46.3) fL RDW Coeff of Pérez (11.5-14.5) % Plt Count (130-400) K/uL MPV (9.4-12.4) fL Immature Gran % (Auto) % Neut % (Auto) % Lymph % (Auto) % [place] % (Auto) % Eos % (Auto) % Baso % (Auto) % Neut # (Auto) (1.40-6.50) K/uL Lymph # (Auto) (1.2-3.4) K/uL [place] # (Auto) (0.11-0.59) K/uL Eos # (Auto) (0-0.50) K/uL Baso # (Auto) (0-0.2) K/uL Immature Gran # (Auto) (0.01-0.20) K/uL Dohle Bodies Polychromasia Echinocytes PT (9.0-12.0) Seconds INR (0.9-1.1) APTT (21.0-31.0) Seconds PTT Ratio VBG pH (7.36-7.41) VBG pCO2 (38-50) mmHg VBG pO2 mmHg VBG HCO3 mmol/L VBG O2 Saturation % VBG Base Excess mEq/L Sodium (136-145) mmol/L Potassium (3.5-5.1) mmol/L Chloride (98-107) mmol/L Carbon Dioxide (21-32) mmol/L Anion Gap (3-11) BUN (6-23) mg/dl Creatinine (0.6-1.2) mg/dl Est Cr Clr Drug Dosing Est GFR ( Amer) ml/min Est GFR (Non-Af Amer) ml/min BUN/Creatinine Ratio (10-20) Glucose (70-99(Fasting)) mg/dl POC Glucose (70-99) mg/dl Lactate 2.4 H* (0.4-2.0) mmol/L Calcium (8.6-10.3) mg/dl Magnesium (1.7-2.4) mg/dl Total Bilirubin (0.2-1.0) mg/dl Direct Bilirubin (0-0.2) mg/dl AST (13-39) U/L ALT (7-52) U/L Alkaline Phosphatase (34-104) U/L Total Creatine Kinase (26-192) U/L Troponin I High Sens (0-14) pg/ml Total Protein (6.0-8.3) gm/dl Albumin (3.4-5.0) gm/dl Lipase (11-82) U/L Procalcitonin (0-0.5) ng/ml Urine Color Urine Appearance (Clear) Urine pH (4.5-7.5) Ur Specific [place] (1.000-1.030) Urine Protein (Negative) Urine Glucose (UA) (Negative) Urine Ketones (Negative) Urine Blood (Negative) Urine Nitrite (Negative) Urine Bilirubin (Negative) Urine Urobilinogen (Negative) Ur Leukocyte Esterase (Negative) Urine WBC (Auto) (0-5) /hpf Urine RBC (Auto) (0-4) /hpf U Hyaline Cast (Auto) (0-5) /lpf U Epithel Cells (Auto) (0-5) /lpf Urine Bacteria (Auto) (Negative) Ur Renal Epithelial Cell (0-5) /lpf Urine Yeast Adenovirus (PCR) (NotDetected) B. pertussis DNA (PCR) (NotDetected) B.parapertussis DNA PCR (NotDetected) C. pneumoniae DNA (PCR) (NotDetected) Coronavirus OC43 (PCR) (NotDetected) Coronavirus HKU1 (PCR) (NotDetected) Coronavirus 229E (PCR) (NotDetected) SARS-CoV-2 (PCR) (NotDetected) Coronavirus NL63 (PCR) (NotDetected) Human Metapneumovir PCR (NotDetected) Influenza Type A (PCR) (NotDetected) Influenza Type B (PCR) (NotDetected) M. pneumoniae (PCR) (NotDetected) Parainfluenza 1 (PCR) (NotDetected) Parainfluenza 2 (PCR) (NotDetected) Parainfluenza 3 (PCR) (NotDetected) Parainfluenza 4 (PCR) (NotDetected) RSV (PCR) (NotDetected) Entero/Rhino (PCR) (NotDetected) Imaging Data Attestation: I personally reviewed and interpreted this imaging study as follows: My Impression: No significant change from the x-ray in August 2021 Radiologist's Impression: Abdomen/Pelvis CT 12/12/22 19:21 Exam(s): CT ABDOMEN + PELVIS Without Contrast EXAM: CT Abdomen and Pelvis Without Intravenous Contrast CLINICAL HISTORY: Reason for exam: abd apin. TECHNIQUE: Axial computed tomography images of the abdomen and pelvis without intravenous contrast. CTDI is 28.14 mGy and DLP is 1415.4 mGy-cm. Automated exposure control was utilized for the study. A dose lowering technique was utilized adhering to the principles of ALARA. COMPARISON: No relevant prior studies available. FINDINGS: Lung bases: Unremarkable. No mass. No consolidation. ABDOMEN: Liver: Unremarkable. Gallbladder and bile ducts: Cholecystectomy clips. No ductal dilation. Pancreas: Unremarkable. No ductal dilation. Spleen: Unremarkable. No splenomegaly. Adrenals: Unremarkable. No mass. Kidneys and ureters: Unremarkable. No hydronephrosis or nephrolithiasis. Stomach and bowel: Circumferential wall thickening of the descending and sigmoid colon, with mild pericolonic fat stranding, consistent with mild colitis. No obstruction. PELVIS: Appendix: No findings to suggest acute appendicitis. Bladder: Decompressed urinary bladder. No stones. Reproductive: Unremarkable as visualized. ABDOMEN and PELVIS: Intraperitoneal space: Unremarkable. No free air. No significant fluid collection. Bones/joints: Degenerative changes of the spine. No acute fracture. No dislocation. Soft tissues: Unremarkable. Vasculature: Atherosclerotic changes of the aorta. No abdominal aortic aneurysm. Lymph nodes: Unremarkable. No enlarged lymph nodes. IMPRESSION: Circumferential wall thickening of the descending and sigmoid colon, with mild pericolonic fat stranding, consistent with mild colitis. Electronically signed by: Cezar Hansen MD 12/12/22 20:14 PM ECG Data Attestation: I personally reviewed and interpreted this ECG as follows: Indication: palpitations Rate (beats per minute): 73 Rhythm: normal sinus Findings: + peaked T-waves; no ST depression, no ST elevation or no prolonged QT MDM Narrative 1907: The patient was evaluated in room C11. A complete history and physical exam was performed Cardiac monitoring: An order was placed for continuous cardiac monitoring. The monitor shows a rate of 80 with sinus rhythm interpreted by nj Sepsis protocols initiated. EKG shows peaked T waves. 1954: Blood pressure improved with IV fluids. Lactic acid is elevated 2.7. Second liter of IV fluids ordered for the patient for 30 cc/kg bolus based off the patient's ideal body weight. 2029: Patient becoming hypotensive again. Labs show leukocytosis of 31.14. Hemoglobin 10.7. VBG venous pH 7.22. Venous PCO2 25. Venous bicarb 10. Sodium 122. Potassium 6.6. Chloride 88. Bicarb 9. BUN 174. Creatinine 13.3. Patient has history of CKD however her last creatinine in 2021 was 0.95. Lactic acid 2.7. Troponin 81.7. Total CK7 21. Procalcitonin 14.61. Third liter of IV fluid ordered for the patient. Procalcitonin 14.61. Cefepime 2 g ordered for the patient, Schaefer catheter was placed and appears very cloudy. Spoke with Dr. Mimi Trejo nephrology and I went over the labs and electrolytes with him verbatim. He states he thinks that the patient is in prerenal DAVONTE. He agrees with the calcium gluconate dextrose and insulin combination for hyperkalemia. He agrees with continuing the IV fluids third liter as necessary. He states to give 2 Amps of bicarb at this time. He recommends no bicarb drip and no insulin drip at this time. He recommends Lokelma 30 g p.o. immediately and then 10 g PO 3 times daily after that. He recommends checking a BMP every 4 hours and states that the patient can be managed at this facility no need for transfer at this time. He states that the hospitalist team can call him if they need help with her electrolyte management. It is thought that the patient is most likely suffering from sepsis which is resulting in the patient's DAVONTE. Discussed the case with Sy SUPERVISOR SALVAGE for ICU made him aware that the patient will be coming over to the ICU. Discussed case with Dr. Jamaal Trejo hospitalist who is in agreement with the plan also. 2054: Repeat blood pressure 91/43 with IV fluids running. We will continue IV fluids. 2115: Blood pressure 90/40 receiving third liter of fluid. Dr. Hinton at bedside evaluating the patient. 2139: Patient becoming hypotensive again with third liter of normal saline almost done, patient be started on Levophed drip. Impression & Plan Sepsis, DAVONTE (acute kidney injury) Critical Care Time Critical Care Time: Yes Total Critical Care Time: 107 I have personally spent greater than 107 minutes of critical care time in the direct management of this patient. This includes bedside care, interpretation of diagnostic studies, and testing, discussion with consultants, patient, and family members, and other required patient management activities. This 107 minutes is in excess of all separately billable procedures. Discharge Plan Visit Data Chief Complaint: Diarrhea Stated Complaint: DIARREAH 5 DAYS,SICK,VOMIT ED Provider: Eliezer Dixon Discharge Problem: Sepsis, DAVONTE (acute kidney injury) Patient Disposition: Admitted As Inpatient Discharge Instructions Interventions: ED Discharge Assessment Last Done: 12/12/22 22:21
[2022-12-12] MEDS ORDERED: SODIUM CHLORIDE 0.9% 1000ML 1,000 ML IV ONE (19:48)
[2022-12-12 20:04] LABS: Hematocrit (blood only) 30.8 % (37.0-47.0); Hemoglobin 10.7 g/dl (12.0-16.0); Mean Corpuscular Hemoglobin 30.5 pg (25.0-34.0); Mean Corpuscular Hgb Conc 34.7 g/dL (32.0-36.0); Mean Corpuscular Volume 87.7 fL (80.0-100.0); Mean Platelet Volume 12.4 fL (9.4-12.4); Platelet Count 300 K/uL (130-400); RDW Coefficient of Variation 14.5 % (11.5-14.5); RDW Standard Deviation 46.5 fL (36.4-46.3); Red Blood Count 3.51 M/uL (4.20-5.40); White Blood Count 31.14 K/ul (4.8-10.8)
[2022-12-12] MEDS ORDERED: CALCIUM CHLORIDE 10% 500 MG in DEXTROSE 5% 50 ML IV STA (20:10)
[2022-12-12] MEDS ORDERED: INSULIN HUMAN REGULAR PER UNIT 10 UNITS in SYRINGE 9.9 ML IV STA (20:10)
[2022-12-12] MEDS ORDERED: DEXTROSE 50% 50 ML SYRINGE IV STA (20:10)
[2022-12-12 20:11] LABS: INR 1.1 (0.9-1.1); Partial Thromboplastin Ratio 0.9; Partial Thromboplastin Time 24.2 Seconds (21.0-31.0); Prothrombin Time 11.9 Seconds (9.0-12.0)
[2022-12-12 20:12] LABS: Base Excess VBG -15.8 mEq/L; HCO3 VBG 10 mmol/L; Oxygen Saturation VBG < 60.0 %; PCO2 VBG 25 mmHg (38-50); PO2 VBG 39 mmHg; pH VBG 7.22 (7.36-7.41)
[2022-12-12 20:14] LABS: Alanine Aminotransferase 32 U/L (7-52); Albumin Level 3.4 gm/dl (3.4-5.0); Alkaline Phosphatase 246 U/L (34-104); Anion Gap 25 (3-11); Aspartate Aminotransferase 53 U/L (13-39); Bilirubin Direct 0.3 mg/dl (0-0.2); Bilirubin,Total 0.6 mg/dl (0.2-1.0); Calcium 9.7 mg/dl (8.6-10.3); Carbon Dioxide 9 mmol/L (21-32); Chloride 88 mmol/L (98-107); Creatine Kinase 721 U/L (26-192); Est GFR (African American) 2.9 ml/min; Est GFR (Non-African American) 2.5 ml/min; Glucose 230 mg/dl (70-99(Fasting)); Magnesium 1.8 mg/dl (1.7-2.4); Potassium 6.6 mmol/L (3.5-5.1); Sodium 122 mmol/L (136-145); Total Protein 7.3 gm/dl (6.0-8.3); Troponin I High Sensitivity 81.7 pg/ml (0-14)
--- NOTE | 2022-12-12 20:14 | CT Scan Report ---
Exam(s): CT ABDOMEN + PELVIS Without Contrast EXAM: CT Abdomen and Pelvis Without Intravenous Contrast CLINICAL HISTORY: Reason for exam: abd apin. TECHNIQUE: Axial computed tomography images of the abdomen and pelvis without intravenous contrast. CTDI is 28.14 mGy and DLP is 1415.4 mGy-cm. Automated exposure control was utilized for the study. A dose lowering technique was utilized adhering to the principles of ALARA. COMPARISON: No relevant prior studies available. FINDINGS: Lung bases: Unremarkable. No mass. No consolidation. ABDOMEN: Liver: Unremarkable. Gallbladder and bile ducts: Cholecystectomy clips. No ductal dilation. Pancreas: Unremarkable. No ductal dilation. Spleen: Unremarkable. No splenomegaly. Adrenals: Unremarkable. No mass. Kidneys and ureters: Unremarkable. No hydronephrosis or nephrolithiasis. Stomach and bowel: Circumferential wall thickening of the descending and sigmoid colon, with mild pericolonic fat stranding, consistent with mild colitis. No obstruction. PELVIS: Appendix: No findings to suggest acute appendicitis. Bladder: Decompressed urinary bladder. No stones. Reproductive: Unremarkable as visualized. ABDOMEN and PELVIS: Intraperitoneal space: Unremarkable. No free air. No significant fluid collection. Bones/joints: Degenerative changes of the spine. No acute fracture. No dislocation. Soft tissues: Unremarkable. Vasculature: Atherosclerotic changes of the aorta. No abdominal aortic aneurysm. Lymph nodes: Unremarkable. No enlarged lymph nodes. IMPRESSION: Circumferential wall thickening of the descending and sigmoid colon, with mild pericolonic fat stranding, consistent with mild colitis. Electronically signed by: Cezar Hansen MD 12/12/22 20:14 PM
[2022-12-12 20:18] LABS: BUN Creatinine Ratio 13.1 (10-20); Basophils # (auto) 0.07 K/uL (0-0.2); Basophils % (auto) 0.2 %; Blood Urea Nitrogen 174 mg/dl (6-23); Dohle Bodies 1+; Echinocytes 1+; Eosinophils # (auto) 0.11 K/uL (0-0.50); Eosinophils % (auto) 0.4 %; Immature Granulocytes # (auto) 0.41 K/uL (0.01-0.20); Immature Granulocytes % (auto) 1.3 %; Lymphocytes # (auto) 0.47 K/uL (1.2-3.4); Lymphocytes % (auto) 1.5 %; Monocytes # (auto) 1.68 K/uL (0.11-0.59); Monocytes % (auto) 5.4 %; Neutrophils % (auto) 91.2 %; Polychromasia 1+
[2022-12-12] MEDS ORDERED: CEFEPIME 2,000 MG/20 ML VIAL IV STA (20:20)
[2022-12-12] MEDS ORDERED: SODIUM BICARBONATE 8.4% 150 MEQ in DEXTROSE 5% 1,000 ML IV STA (20:24)
[2022-12-12] MEDS ORDERED: NovoLIN-R INSULIN PER UNIT CHARGE ONE (20:25)
[2022-12-12] MEDS ORDERED: SODIUM BICARB 8.4% INJ 50 MEQ/50 ML SYR IV STA ×2 (20:32)
[2022-12-12] MEDS ORDERED: SODIUM ZIRCONIUM CYCLOSILICATE 10 GM PACKET PO STA (20:34)
[2022-12-12 21:12] LABS: Adenovirus PCR Not Detected (NotDetected); Bordetella parapertussis PCR Not Detected (NotDetected); Bordetella pertussis PCR Not Detected (NotDetected); Chlamydia pneumoniae PCR Not Detected (NotDetected); Coronavirus 229E PCR Not Detected (NotDetected); Coronavirus CoV-2 (COVID19)PCR Not Detected (NotDetected); Coronavirus HKU1 PCR Not Detected (NotDetected); Coronavirus NL63 PCR Not Detected (NotDetected); Coronavirus OC43PCR Not Detected (NotDetected); Human Metapneumovirus PCR Not Detected (NotDetected); Influenza A PCR Not Detected (NotDetected); Influenza B PCR Not Detected (NotDetected); Mycoplasma pneumoniae PCR Not Detected (NotDetected); Parainfluenza Virus 1 PCR Not Detected (NotDetected); Parainfluenza Virus 2 PCR Not Detected (NotDetected); Parainfluenza Virus 3 PCR Not Detected (NotDetected); Parainfluenza Virus 4 PCR Not Detected (NotDetected); Respiratory Syncytial VirusPCR Not Detected (NotDetected); Rhinovirus/Enterovirus PCR Not Detected (NotDetected)
[2022-12-12 21:23] LABS: Appearance Urine Turbid (Clear); Bacteria Urine Automated 4+ (Negative); Bilirubin Urine Negative (Negative); Blood Urine 3+ (Negative); Color Urine Dark Yellow; Epithelial Cell Urine Auto >30 /lpf (0-5); Glucose Urine UA Negative (Negative); Ketones Urine Negative (Negative); Leukocyte Esterase Urine 3+ (Negative); Nitrite Urine Negative (Negative); Protein Urine 3+ (Negative); Specific Gravity Urine 1.016 (1.000-1.030); Urobilinogen Urine Negative (Negative); WBC Urine Automated >30 /hpf (0-5)
[2022-12-12] MEDS ORDERED: NOREPINEPHRINE/D5W 4 MG/250 ML IV ONE (21:23)
[2022-12-12 21:24] LABS: Lipase 187 U/L (11-82)
[2022-12-12] MEDS ORDERED: STAT IV Infusion **Titration per Protocol STA ×2 (21:25→22:59)
[2022-12-12] MEDS: NOREPINEPHRINE/D5W 4 MG/250 ML PLCT IV SCH (21:28)
[2022-12-12 21:55] LABS: Cast Urine Automated 0 /lpf (0-5)
[2022-12-12] MEDS ORDERED: ACETAMINOPHEN 1,000 MG/100 ML VIAL IV STA (21:57)
--- NOTE | 2022-12-12 22:10 | History & Physical Report ---
Date of Service December 12, 2022 Assessment & Plan (1) Severe sepsis: Plan: 72-year-old female past medical history significant for type 2 diabetes, on long-term insulin, iron metabolism disease, diabetic retinopathy, hyperlipidemia, moderate persistent asthma, obstructive sleep apnea does not tolerate BiPAP nocturnal oxygen 3 to 4 L, hypertension, pulmonary hypertension, PVCs, irritable bowel syndrome, GERD, chronic kidney disease stage III, restless leg syndrome, medical marijuana use, depression, KARI, PTSD, panic disorder, history of COVID, presents with diarrhea going on for 1 week and found to have severe sepsis, DAVONTE, hyperkalemia, hyponatremia and metabolic acidosis. Severe sepsis Hypotension and elevated lactic acid 2.7 and WBC of 31 and procalcitonin of 14. UA positive. Most likely UTI. Also has cough and phlegm. Chest x-ray looks okay. Empirically started Zosyn and daptomycin. Received cefepime in the ER. Received 3 L of fluids in the ER but still hypotensive so started on Levophed drip. We will follow the cultures. Close monitor in ICU. DAVONTE on chronic and stage III Presented to creatinine of 13.3 Baseline creatinine 0.8-1 Patient states having diarrhea since last 1 week since her Ozempic dose was increased Discussed with nephrology mostly prerenal To follow BMP every 4 hours Close monitoring ICU Nephrology consulted. Hyponatremia Presented with sodium of 122 Already received 3 L of fluids for sepsis. Nephrology recommended to follow BMP every 4 hours. If sodium level increased by 2 points next labs to start on D5 water at 100 ml per hour as per nephrology Close monitoring. Hyperkalemia Presents with potassium 6.6 Received insulin and dextrose and 2 Amps of bicarb and Lokelma 30 g Nephrology recommended Lokelma 10 g p.o. 3 times daily We will closely follow the labs. Metabolic acidosis Bicarb of 9 Received 2 A of bicarb We will follow the labs Elevated troponin Troponin 1 of 81 we will follow serial enzymes Mostly from DAVONTE and demand ischemia from sepsis If any concerns will consult cardiology. Diarrhea We will follow stool studies Mild colitis on CT scan -Consider consult GI We will monitor the hemodynamics Possible side effect of Ozempic increased dose. Diabetes Patient states this takes 8o units of long-acting insulin the morning and and as needed short-acting She is also on Ozempic Currently we will place on insulin sliding scale Consult pharmacy. We will follow HbA1c levels and blood sugars. Obstructive sleep apnea Does not tolerate BiPAP On oxygen 3 to 4 L nightly Restless leg syndrome On pramipexole which is on hold for now Hypertension Holding lisinopril metoprolol and Lasix as patient currently having DAVONTE and hypotension. Insomnia On clonidine nightly which we will hold for hypotension. Hyperlipidemia Hold statin while patient is on Dapto Irritable bowel syndrome Hold home medications for now History of asthma Continue home inhalers and nebs as needed GERD Will place on IV. Pepcid DVT prophylaxis Heparin subcu Disposition Close monitoring ICU Full code (2) DAVONTE (acute kidney injury): (3) Hyponatremia: (4) Metabolic acidosis: (5) Diarrhea: History of Present Illness Chief Complaint: Diarrhea and weakness. Primary Care Provider: Chrsi Asencio DO This is 72-year-old female with past medical history significant for type 2 diabetes, on long-term insulin, iron metabolism disease, diabetic retinopathy, hyperlipidemia, moderate persistent asthma, obstructive sleep apnea does not tolerate BiPAP nocturnal oxygen 3 to 4 L, hypertension, pulmonary hypertension, PVCs, irritable bowel syndrome, GERD, chronic kidney disease stage III, restless leg syndrome, medical marijuana use, depression, KARI, PTSD, panic disorder, history of COVID, presents with diarrhea going on for 1 week but got worse last 3 to 4 days and weakness and not feeling well. Patient states that she was Ozempic 1 mg dose and last over 96 pounds in last 1 year and recently it was increased to 2 mg dose about 10 days ago since then she thinks started having diarrhea. Also has some chest on and off discomfort. Has some neck pain. C omplains of cough with phlegm going on for last few days. Denies any fevers. Has abdominal pain in the middle of the abdomen. Has some nausea. Patient somewhat shaky but she thinks she is anxious. Denies any headache. On and off blurred visions. No earache. Has some runny nose and sore throat. Has some blood in the stools but she thinks it is from irritation from diarrhea. Says she has not been making much urine lately. Patient was hypotensive in the ER. Even after 3 L of fluids she still was hypotensive so was started on Levophed. Patient states she takes marijuana sometimes for her pain Allergies Allergy/AdvReac Type Severity Reaction Status Date / Time bee venom protein (honey bee) Allergy Severe ANAPHYLAXIS Verified 09/14/21 17:11 iodine Allergy Severe ANAPHYLAXIS Verified 09/14/21 17:11 -SHELLFISH colestipol Allergy Unknown RASH Verified 09/14/21 17:11 doxycycline Allergy Unknown HIVES Verified 09/14/21 17:11 glimepiride Allergy Unknown RASH Verified 09/14/21 17:11 glyburide Allergy Unknown RASH Verified 09/14/21 17:11 metformin Allergy Unknown RASH Verified 09/14/21 17:11 ondansetron [From Zofran] Allergy Unknown Unknown Verified 09/14/21 17:35 pioglitazone Allergy Unknown RASH Verified 09/14/21 17:11 rosuvastatin Allergy Unknown ITCHING Verified 09/14/21 17:11 RASH shellfish derived Allergy Unknown SWELLING Verified 09/14/21 17:11 OF FACE AND MOUTH tramadol Allergy Unknown EARS RING, Verified 09/14/21 17:11 FUZZY VISION amitriptyline [From Elavil] AdvReac Unknown WT GAIN Verified 09/14/21 17:11 diphenhydramine AdvReac Unknown HEAD GOES Verified 09/14/21 17:11 CRAZY-RINGING EARS,STRANGE hydroxyzine AdvReac Unknown MENTAL Verified 09/14/21 17:11 CONFUSION pseudoephedrine AdvReac Unknown JITTERINESS Verified 09/14/21 17:11 sulfamethoxazole AdvReac Unknown Unknown Verified 09/14/21 17:35 [From Bactrim] trimethoprim [From Bactrim] AdvReac Unknown Unknown Verified 09/14/21 17:35 Home Medications Medication Instructions Recorded Confirmed Type diphenoxylate-atropine 2.5 2 tab PO Q6 PRN Diarrhea 05/03/18 12/12/22 History mg-0.025 mg tablet furosemide 40 mg tablet 40 mg PO DAILY 05/03/18 12/12/22 History methscopolamine 2.5 mg tablet 2.5 mg PO TID PRN Cramps 05/03/18 12/12/22 History omeprazole 20 mg capsule,delayed 20 mg PO QAM 05/03/18 12/12/22 History release diclofenac sodium 1 % topical gel 2 g topical QID 07/22/18 12/12/22 History fluticasone furoate 100 1 inh inhalation QAM 07/22/18 12/12/22 History mcg-vilanterol 25 mcg/dose inhalation powder (Breo Ellipta) ondansetron 4 mg disintegrating 4 mg PO Q6H PRN Nausea 07/22/18 12/12/22 History tablet albuterol sulfate 2.5 mg/3 mL 2.5 mg continuous nebulization Q4 09/14/21 12/12/22 History (0.083 %) solution for nebulization PRN Shortness Of Breath Or Wheezing albuterol sulfate 90 mcg/actuation 1 - 2 inh inhalation QID PRN 09/14/21 12/12/22 History aerosol inhaler (Proventil HFA) Shortness Of Breath Or Wheezing alosetron 1 mg tablet 1 mg PO BID 09/14/21 12/12/22 History aspirin 81 mg chewable tablet 81 mg PO DAILY 09/14/21 12/12/22 History atorvastatin 40 mg tablet 40 mg PO QAM 09/14/21 12/12/22 History clonazepam 0.5 mg tablet 0.5 mg PO TID PRN Anxiety 09/14/21 12/12/22 History doxepin 100 mg capsule 100 mg PO HS 09/14/21 12/12/22 History famotidine 40 mg tablet 40 mg PO DAILY 09/14/21 12/12/22 History fluticasone propionate 50 2 spray intranasal BID 09/14/21 12/12/22 History mcg/actuation nasal spray,suspension lisinopril 20 mg tablet 20 mg PO QAM 09/14/21 12/12/22 History metoprolol succinate 25 mg 25 mg PO QAM 09/14/21 12/12/22 History tablet,extended release 24 hr montelukast 10 mg tablet 10 mg PO QAM 09/14/21 12/12/22 History pramipexole 1 mg tablet 1 mg PO HS 09/14/21 12/12/22 History prochlorperazine maleate 10 mg 10 mg PO Q6H PRN Nausea 09/14/21 12/12/22 History tablet (Compazine) clonidine HCl 0.1 mg tablet 0.1 mg PO BID 12/12/22 12/12/22 History ferrous gluconate 240 mg (27 mg 240 mg PO DAILY 12/12/22 12/12/22 History iron) tablet (Ferate) metoprolol succinate 25 mg 12.5 mg PO HS 12/12/22 12/12/22 History tablet,extended release 24 hr semaglutide 2 mg/dose (8 mg/3 mL) 0.75 mg subcut WK 12/12/22 12/12/22 History subcutaneous pen injector (Ozempic) 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 Depression Diverticular disease DJD (degenerative joint disease), cervical DM type 2 (diabetes mellitus, type 2) IDDM Dyslipidemia GERD (gastroesophageal reflux disease) GERD (gastroesophageal reflux disease) CONTROLLED History of opioid abuse PER RECORDS Hypertension IBS (irritable bowel syndrome) Migraine Neuropathy DIABETIC NEUROPATHY- FEET KATERIN (obstructive sleep apnea) Osteoarthritis Osteoporosis Panic disorder Pulmonary HTN RLS (restless legs syndrome) Temporomandibular joint disorder + CLICKING; NO LOCKING Venous insufficiency Surgical History H/O arthroscopic knee surgery LEFT H/O colonoscopy History of colonoscopy 02/2021, sigmoid diverticulosis, poor prep History of difficult intubation RIGHT SHOULDER SCOPE WITH RCR= 06/29/16= GLIDESCOPE #3 "GOOD VIEW", ETT 7 AT [facility] History of esophagogastroduodenoscopy (EGD) History of repair of rotator cuff B/L History of total knee replacement LEFT Perianal abscess S/P DRAINAGE S/P cholecystectomy S/P hysterectomy Family History Sister Family history of diabetes mellitus Family hx of colon cancer Brother Family history of diabetes mellitus Grandmother (Maternal) Family history of diabetes mellitus Family/Other Family history of diabetes mellitus Other Diabetes Social History Smoking Status: Never smoker Second Hand Exposure: No; Do You Dip or Chew Tobacco: No; Hx Alcohol Use: No Hx Substance Use: No Preferred Language: Setswana Communication Ability: Effective Window/Distribution Clerk Required: No Beliefs That Will Affect Care: None marital status: Current Living Situation: Spouse Current Living Situation Comment: home current occupational status: retired Feels Safe at Home: Yes Assistive Devices: Cane, Glasses, Oxygen - at Night and Walker Review of Systems Review of Systems: All systems reviewed & are unremarkable except as noted in Subjective Physical Exam Physical Exam: General- adult Head- atraumatic Eyes- PERRL ENT- oropharynx dry Neck- supple, no JVD, Lungs- clear to auscultation and percussion Heart- regular rhythm; no murmur, no gallop, no rub appreciated Abdomen- normal bowel sounds, soft, mild diffuse tenderness , no masses or hepatosplenomegaly Extremities- trace pretibial edema present, No erythema seen Neuro- alert, oriented x 3; PERRL, EOMI; no facial palsy; no dysarthria; non focal. Skin- warm & dry Results & Data Results & Data Vital Signs (Past 12 Hours) Vital Signs Temp Pulse Pulse Resp BP BP Pulse Ox 12/12/22 22:05 87 24 98 12/12/22 22:01 91/40 L 12/12/22 22:01 86 23 98 12/12/22 22:00 86 23 99 12/12/22 21:56 124/53 L 12/12/22 21:56 87 21 98 12/12/22 21:55 87 25 H 100 12/12/22 21:51 129/56 L 12/12/22 21:51 87 21 95 12/12/22 21:50 88 21 91 12/12/22 21:46 89/42 L 12/12/22 21:46 82 22 99 12/12/22 21:45 83 20 91 12/12/22 21:44 75/40 L 12/12/22 21:44 83 21 96 12/12/22 21:40 81 23 97 12/12/22 21:40 53/39 L 12/12/22 21:36 83 21 98 12/12/22 21:36 79/40 L 12/12/22 21:35 84 17 99 12/12/22 21:46 36.5 C 12/12/22 21:30 89 20 98 12/12/22 21:30 84/46 L 12/12/22 21:25 87 21 99 12/12/22 21:25 77/41 L 12/12/22 21:21 70/37 L 12/12/22 21:21 89 25 H 72 L 12/12/22 21:20 88 28 H 98 12/12/22 21:15 85 23 98 12/12/22 21:11 93/45 L 12/12/22 21:11 85 23 73 L 12/12/22 21:10 83 23 98 12/12/22 21:06 75/45 L 12/12/22 21:06 83 25 H 90 12/12/22 21:05 83 25 H 100 12/12/22 21:01 83/30 L 12/12/22 21:01 82 23 12/12/22 21:00 82 29 H 12/12/22 20:56 82 22 12/12/22 20:56 70/43 L 12/12/22 20:55 80 25 H 12/12/22 20:50 84 21 98 12/12/22 20:45 81 22 100 12/12/22 20:45 91/43 L 12/12/22 20:40 81 20 97 12/12/22 20:40 75/46 L 12/12/22 20:35 80 22 12/12/22 20:35 63/43 L 12/12/22 20:33 75 20 12/12/22 20:33 82/34 L 12/12/22 20:30 77 21 12/12/22 20:26 81/42 L 12/12/22 20:26 80 27 H 12/12/22 20:25 75 22 12/12/22 20:20 75 19 12/12/22 20:16 74/45 L 12/12/22 20:16 78 21 12/12/22 20:15 76 28 H 12/12/22 20:12 76 19 12/12/22 20:12 84/42 L 12/12/22 19:55 78 24 12/12/22 19:50 78 20 12/12/22 19:45 80 24 12/12/22 19:40 74 18 12/12/22 19:35 74 18 12/12/22 19:30 75 21 12/12/22 19:29 74 23 12/12/22 20:57 82 22 70/43 L 98 12/12/22 20:49 85 21 91/43 L 100 12/12/22 20:21 74 74/45 L 12/12/22 19:49 79 20 107/51 L 98 12/12/22 19:35 98 12/12/22 19:35 75 18 117/56 L 98 12/12/22 19:35 74 12/12/22 19:02 36.4 C 79 16 65/49 L 98 O2 Del Method 12/12/22 22:05 12/12/22 22:01 12/12/22 22:01 Room Air 12/12/22 22:00 12/12/22 21:56 12/12/22 21:56 12/12/22 21:55 12/12/22 21:51 12/12/22 21:51 12/12/22 21:50 12/12/22 21:46 12/12/22 21:46 12/12/22 21:45 12/12/22 21:44 12/12/22 21:44 12/12/22 21:40 12/12/22 21:40 12/12/22 21:36 12/12/22 21:36 12/12/22 21:35 12/12/22 21:46 12/12/22 21:30 12/12/22 21:30 12/12/22 21:25 12/12/22 21:25 12/12/22 21:21 12/12/22 21:21 12/12/22 21:20 12/12/22 21:15 12/12/22 21:11 12/12/22 21:11 12/12/22 21:10 12/12/22 21:06 12/12/22 21:06 12/12/22 21:05 12/12/22 21:01 12/12/22 21:01 12/12/22 21:00 12/12/22 20:56 12/12/22 20:56 12/12/22 20:55 12/12/22 20:50 12/12/22 20:45 12/12/22 20:45 12/12/22 20:40 12/12/22 20:40 12/12/22 20:35 12/12/22 20:35 12/12/22 20:33 12/12/22 20:33 12/12/22 20:30 12/12/22 20:26 12/12/22 20:26 12/12/22 20:25 12/12/22 20:20 12/12/22 20:16 12/12/22 20:16 12/12/22 20:15 12/12/22 20:12 12/12/22 20:12 12/12/22 19:55 12/12/22 19:50 12/12/22 19:45 12/12/22 19:40 12/12/22 19:35 12/12/22 19:30 12/12/22 19:29 12/12/22 20:57 12/12/22 20:49 Room Air 12/12/22 20:21 12/12/22 19:49 Room Air 12/12/22 19:35 12/12/22 19:35 12/12/22 19:35 12/12/22 19:02 Room Air Laboratory Results Laboratory Results WBC 31.14 K/ul (4.8-10.8) H* 12/12/22 19: RBC 3.51 M/uL (4.20-5.40) L 12/12/22 19: Hgb 10.7 g/dl (12.0-16.0) L 12/12/22 19: Hct 30.8 % (37.0-47.0) L 12/12/22 19: MCV 87.7 fL (80.0-100.0) 12/12/22 19: MCH 30.5 pg (25.0-34.0) 12/12/22 19: MCHC 34.7 g/dL (32.0-36.0) 12/12/22 19: RDW Std Deviation 46.5 fL (36.4-46.3) H 12/12/22: RDW Coeff of Pérez 14.5 % (11.5-14.5) 12/12/22 19: Plt Count 300 K/uL (130-400) 12/12/22 19: MPV 12.4 fL (9.4-12.4) 12/12/22 19: Immature Gran % (Auto) 1.3 % 12/12/22 19: Neut % (Auto) 91.2 % 12/12/22 19: Lymph % (Auto) 1.5 % 12/12/22: Yell % (Auto) 5.4 % 12/12/22 19: Eos % (Auto) 0.4 % 12/12/22 19:27 Baso % (Auto) 0.2 % 12/12/22 19:27 Neut # (Auto) 28.40 K/uL (1.40-6.50) H 12/12/22 19:27 Lymph # (Auto) 0.47 K/uL (1.2-3.4) L 12/12/22 19:27 Yell # (Auto) 1.68 K/uL (0.11-0.59) H 12/12/22 19:27 Eos # (Auto) 0.11 K/uL (0-0.50) 12/12/22 19:27 Baso # (Auto) 0.07 K/uL (0-0.2) 12/12/22 19: Immature Gran # (Auto) 0.41 K/uL (0.01-0.20) H 12/12/22 19:27 Dohle Bodies 1+ 12/12/22 19:27 Polychromasia 1+ 12/12/22 19:27 Echinocytes 1+ 12/12/22 19:27 PT 11.9 Seconds (9.0-12.0) 12/12/22 19: INR 1.1 (0.9-1.1) 12/12/22 19: APTT 24.2 Seconds (21.0-31.0) 12/12/22 19:27 PTT Ratio 0.9 12/12/22 19:27 VBG pH 7.22 (7.36-7.41) L 12/12/22 19:46 VBG pCO2 25 mmHg (38-50) L 12/12/22 19:46 VBG pO2 39 mmHg 12/12/22 19:46 VBG HCO3 10 mmol/L 12/12/22 19:46 VBG O2 Saturation < 60.0 % 12/12/22 19:46 VBG Base Excess -15.8 mEq/L 12/12/22 19:46 Sodium 122 mmol/L (136-145) L 12/12/22 19:27 Potassium 6.6 mmol/L (3.5-5.1) H* 12/12/22 19:27 Chloride 88 mmol/L (98-107) L 12/12/22 19:27 Carbon Dioxide 9 mmol/L (21-32) L* 12/12/22 19:27 Anion Gap 25 (3-11) H 12/12/22 19:27 BUN 174 mg/dl (6-23) H 12/12/22 19: Creatinine 13.30 mg/dl (0.6-1.2) H* 12/12/22 19:27 Est Cr Clr Drug Dosing Not Reportable 12/12/22 19: Est GFR ( Amer) 2.9 ml/min 12/12/22 19: Est GFR (Non-Af Amer) 2.5 ml/min 12/12/22 19: BUN/Creatinine Ratio 13.1 (10-20) 12/12/22 19:27 Glucose 230 mg/dl (70-99(Fasting)) H 12/12/22 19: POC Glucose 236 mg/dl (70-99) H 12/12/22 19:34 Lactate 2.4 mmol/L (0.4-2.0) H* 12/12/22 21:33 Calcium 9.7 mg/dl (8.6-10.3) 12/12/22 19: Magnesium 1.8 mg/dl (1.7-2.4) 12/12/22 19:27 Total Bilirubin 0.6 mg/dl (0.2-1.0) 12/12/22 19: Direct Bilirubin 0.3 mg/dl (0-0.2) H 12/12/22 19:27 AST 53 U/L (13-39) H 12/12/22 19:27 ALT 32 U/L (7-52) 12/12/22 19:27 Alkaline Phosphatase 246 U/L (34-104) H 12/12/22 19:27 Total Creatine Kinase 721 U/L (26-192) H 12/12/22 19:27 Troponin I High Sens 81.7 pg/ml (0-14) H* 12/12/22 19:27 Total Protein 7.3 gm/dl (6.0-8.3) 12/12/22 19:27 Albumin 3.4 gm/dl (3.4-5.0) 12/12/22 19: Lipase 187 U/L (11-82) H 12/12/22 19:27 Procalcitonin 14.61 ng/ml (0-0.5) H 12/12/22 19: Urine Color Dark Yellow 12/12/22 20:33 Urine Appearance Turbid (Clear) A 12/12/22 20: Urine pH 7.0 (4.5-7.5) 12/12/22 20:33 Ur Specific [place] 1.016 (1.000-1.030) 12/12/22 20:33 Urine Protein 3+ (Negative) H 12/12/22 20:33 Urine Glucose (UA) Negative (Negative) 12/12/22 20: Urine Ketones Negative (Negative) 12/12/22 20: Urine Blood 3+ (Negative) H 12/12/22 20: Urine Nitrite Negative (Negative) 12/12/22 20: Urine Bilirubin Negative (Negative) 12/12/22 20: Urine Urobilinogen Negative (Negative) 12/12/22 20:33 Ur Leukocyte Esterase 3+ (Negative) H 12/12/22 20:33 Urine WBC (Auto) >30 /hpf (0-5) H 12/12/22 20:33 Urine RBC (Auto) 10-30 /hpf (0-4) H 12/12/22 20:33 U Hyaline Cast (Auto) 0 /lpf (0-5) 12/12/22 20:33 U Epithel Cells (Auto) >30 /lpf (0-5) H 12/12/22 20:33 Urine Bacteria (Auto) 4+ (Negative) H 12/12/22 20:33 Ur Renal Epithelial Cell 10-20 /lpf (0-5) H 12/12/22 20:33 Urine Yeast Not Reportable 12/12/22 20:33 Adenovirus (PCR) Not Detected (NotDetected) 12/12/22 19: B. pertussis DNA (PCR) Not Detected (NotDetected) 12/12/22 19: B.parapertussis DNA PCR Not Detected (NotDetected) 12/12/22 19: C. pneumoniae DNA (PCR) Not Detected (NotDetected) 12/12/22 19: Coronavirus OC43 (PCR) Not Detected (NotDetected) 12/12/22 19: Coronavirus HKU1 (PCR) Not Detected (NotDetected) 12/12/22 19:27 Coronavirus 229E (PCR) Not Detected (NotDetected) 12/12/22 19:27 SARS-CoV-2 (PCR) Not Detected (NotDetected) 12/12/22 19:27 Coronavirus NL63 (PCR) Not Detected (NotDetected) 12/12/22 19:27 Human Metapneumovir PCR Not Detected (NotDetected) 12/12/22 19:27 Influenza Type A (PCR) Not Detected (NotDetected) 12/12/22 19:27 Influenza Type B (PCR) Not Detected (NotDetected) 12/12/22 19:27 M. pneumoniae (PCR) Not Detected (NotDetected) 12/12/22 19:27 Parainfluenza 1 (PCR) Not Detected (NotDetected) 12/12/22 19:27 Parainfluenza 2 (PCR) Not Detected (NotDetected) 12/12/22 19:27 Parainfluenza 3 (PCR) Not Detected (NotDetected) 12/12/22 19:27 Parainfluenza 4 (PCR) Not Detected (NotDetected) 12/12/22 19:27 RSV (PCR) Not Detected (NotDetected) 12/12/22 19:27 Entero/Rhino (PCR) Not Detected (NotDetected) 12/12/22 19:27 Impressions Abdomen/Pelvis CT 12/12/22 19:21 Exam(s): CT ABDOMEN + PELVIS Without Contrast EXAM: CT Abdomen and Pelvis Without Intravenous Contrast CLINICAL HISTORY: Reason for exam: abd apin. TECHNIQUE: Axial computed tomography images of the abdomen and pelvis without intravenous contrast. CTDI is 28.14 mGy and DLP is 1415.4 mGy-cm. Automated exposure control was utilized for the study. A dose lowering technique was utilized adhering to the principles of ALARA. COMPARISON: No relevant prior studies available. FINDINGS: Lung bases: Unremarkable. No mass. No consolidation. ABDOMEN: Liver: Unremarkable. Gallbladder and bile ducts: Cholecystectomy clips. No ductal dilation. Pancreas: Unremarkable. No ductal dilation. Spleen: Unremarkable. No splenomegaly. Adrenals: Unremarkable. No mass. Kidneys and ureters: Unremarkable. No hydronephrosis or nephrolithiasis. Stomach and bowel: Circumferential wall thickening of the descending and sigmoid colon, with mild pericolonic fat stranding, consistent with mild colitis. No obstruction. PELVIS: Appendix: No findings to suggest acute appendicitis. Bladder: Decompressed urinary bladder. No stones. Reproductive: Unremarkable as visualized. ABDOMEN and PELVIS: Intraperitoneal space: Unremarkable. No free air. No significant fluid collection. Bones/joints: Degenerative changes of the spine. No acute fracture. No dislocation. Soft tissues: Unremarkable. Vasculature: Atherosclerotic changes of the aorta. No abdominal aortic aneurysm. Lymph nodes: Unremarkable. No enlarged lymph nodes. IMPRESSION: Circumferential wall thickening of the descending and sigmoid colon, with mild pericolonic fat stranding, consistent with mild colitis. Electronically signed by: Cezar Hansen MD 12/12/22 20:14 PM ECG Additional Comments: ECG normal sinus rhythm at a rate of 73 and T wave inversions in inferior leads. Code Status & VTE Plan VTE Prophylaxis Plan VTE Prophylaxis will be ordered: Yes
[2022-12-12] MEDS ORDERED: GLUCOSE 10 TAB/TUBE PO PRN (22:32)
[2022-12-12] MEDS ORDERED: CARBOHYDRATES FOR HYPOGLYCEMIA PO PRN (22:32)
[2022-12-12] MEDS ORDERED: GLUCAGON FOR INJ 1 MG VIAL SQ PRN (22:32)
[2022-12-12] MEDS ORDERED: DEXTROSE 50% 50 ML SYRINGE IV PRN (22:32)
[2022-12-12] MEDS ORDERED: ALBUTEROL 0.083% NEBU SOLN 3 ML VIAL NEB PRN (22:32)
[2022-12-12] MEDS ORDERED: GLUCOSE 40% GEL 15 GM TUBE PO PRN (22:32)
[2022-12-12] MEDS ORDERED: ALBUTEROL HFA 8 GM INHALER INH PRN (22:32)
[2022-12-12] MEDS ORDERED: PHARMACY GLYCEMIC MGMT CONSULT PRN (22:32)
[2022-12-12] MEDS ORDERED: PIPERACILLIN/TAZOBACTAM 4.5 GM (over 30 mins) IV ONE (22:45)
[2022-12-12] MEDS: HEPARIN SOD 5,000 UNIT/0.5 ML VIAL SQ SCH (23:02)
[2022-12-12] MEDS: VASOPRESSIN 20 UNITS in 0.9 % SODIUM CHLORIDE 100 ML IV SCH (23:26)
[2022-12-12] MEDS ORDERED: DAPTOmycin 500 MG in SYRINGE 0 ML IV SCH (23:30)
--- NOTE | 2022-12-12 23:32 | Critical Care Consultation ---
Date of Consultation December 12, 2022 Assessment & Plan (1) Septic shock: Reason Critically Ill: 72-year-old female with extensive past medical history presents to the ICU with septic shock and acute renal failure, currently on vasopressor support and bicarb drip, following 1 week of diarrhea and urinalysis concerning for UTI. Neuro - [facility] ICU: Negative Anxiety and depression Doxepin and clonazepam currently on hold. Continue when appropriate Neuropathysecondary to history of diabetes and spinal radiculopathy. Patient reports use of marijuana for control of her pain in the outpatient in favor of opioids. Cardiac - Septic shock Suspect primarily due to sepsis although acute renal failure Likely contributing. Cannot rule out component of heart failure at this time -Received 3 Liters crystalloid bolus in the ED, continue with IV fluid resuscitation with bicarb drip - Last TTE 2017 with normal Cardiac function, will repeat study -Mildly elevated troponin of 81 in the setting of renal failure and septic shock. EKG without ST elevation. Trend troponin for now but low suspicion for developing ACS - Random cortisol 33, no indication for hydrocortisone at this time - See treatment of sepsis below - Hold antihypertensives - Levophed drip, titrate to maintain MAP greater than 65. Vasopressin added to augment. - CVC and A-line inserted. Continuous hemodynamic monitoring HLDcontinue statin Respiratory - Asthma/KATERIN No issue at this time. Continuous monitoring on pulse ox. Continue Breo Ellipta. Nebs as needed GI - Diarrhea Reports 7 days of diarrhea. No incidence at this time. C. difficile and stool culture pending collection. - Correlates with increased dose of Ozempic. Consider discontinuing this med in the outpatient - CT abdomen and pelvis concerning for colitis GERDPPI RENAL/LYTES - Acute renal failure History of CKD stage III, now has creatinine of 12 with hyperkalemia and metabolic acidosis -Adding bicarb drip - Nonoliguric, appears to be making adequate urine. - We will continue with fluid resuscitation and maintaining maps greater than 65 -Avoid nephrotoxins and renally adjust medications - Continue Lokelma - Trend BMPs every 4 hours - Follow-up nephrology recommendations Hyponatremia Improved from 122-125 with 3 L NSS bolus. Goal correction of 8 mEq per 24 hours - Currently on bicarb drip 150 mEq/h. Monitoring BMPs every 4 hours and will adjust fluids as necessary - Nephrology following, appreciate recommendations - Foleystrict I's and O's ENDO - DM type IIhemoglobin A1c pending. Continue with sliding scale for now. ICU hyperglycemic protocol HEME - H&H stable, monitor routine CBC ID - Sepsis Unclear source at this time although urinalysis concerning for UTI with +4 bacteria, diarrhea x1 week - Pro-Marin elevated at 12, WBC 32,000, lactate 2.7 - CT abdomen pelvis as above - Urine culture and blood cultures pending -Continue broad-spectrum antibiotics with daptomycin and Zosyn for now LINES/IV ACCESS - Right IJ CVC, right radial A-line DVT PROPHYLAXIS - SCDs, Subcu heparin I have personally spent 80 minutes of critical care time in the direct management of this patient. This is a life/limb threatening event. This includes time spent evaluating patient, direct bedside care, chart review, placing orders, interpretation of diagnostic studies, discussion with consultants, patient, and family members, as well as other required patient management activities. This time is exclusive of all separately billable procedures, and teaching time and separate from and in addition to any other critical care service time. Thank you for allowing us to participate in the care of this patient. Please refer to my attending physician's documentation for any further recommendations. (2) Metabolic acidosis: (3) Hyponatremia: (4) Acute renal failure: (5) CKD (chronic kidney disease) stage 3, GFR 30-59 ml/min: (6) KATERIN (obstructive sleep apnea): (7) RLS (restless legs syndrome): (8) Hypertension: (9) Anxiety: (10) Dyslipidemia: (11) DM type 2 (diabetes mellitus, type 2): (12) GERD (gastroesophageal reflux disease): (13) DJD (degenerative joint disease), cervical: (14) Depression: History of Present Illness Attending Physician: Sean Castro MD History of Present Illness Patient is a 72-year-old female with past medical history significant for DM type II, HLD, asthma, KATERIN (3 to 4 L nasal cannula at bedtime), HTN, pulmonary HTN, IBS, GERD, CKD stage III anxiety and depression, Neuropathy, and chronic pain (treated with medicinal marijuana) who presented to the emergency department earlier this evening with complaints of diarrhea x1 week. Patient developed generalized weakness with worsening diarrhea over the past 3 to 4 days. Patient states that she has been on Ozempic 1 mg dose over the last year and has lost 96 pounds. Her dose was increased to 2 mg 10 days ago and she developed significant diarrhea. CT abdomen and pelvis concerning for colitis, but otherwise unremarkable. She was found to be hypotensive in the emergency department and received 3 L crystalloid bolus. She remained hypotensive and was started on Levophed drip. Patient was also found to be in acute renal failure with creatinine of 12, hyperkalemic with potassium of 6.6, Hyponatremic with sodium of 122, and metabolic acidosis with pH of 7.22. Her procalcitonin was elevated at 12 and she had a leukocytosis with WBC 36. Lactic acid elevated at 2.7. Urinalysis concerning for UTI. Blood cultures were drawn and she was started on broad-spectrum antibiotics. Schaefer was inserted and she was noted to be making urine. Nephrology consulted and recommended fluid resuscitation with bicarb bolus. Patient is now being admitted to ICU for further management at this time. On arrival to the ICU the patient is alert and oriented. Patient is very shaky and states that she often has muscle spasms. She reports headache for the past 3 days, neck stiffness which has been chronic for several years, generalized joint pain, abdominal pain, diarrhea x1 week, and generalized weakness. She also reports swelling in her feet bilaterally. She also reports recent pr oductive cough x1 week. She denies dizziness, fevers, shortness of breath, chest pain or palpitations, nausea or vomiting. Allergies Allergy/AdvReac Type Severity Reaction Status Date / Time bee venom protein (honey bee) Allergy Severe ANAPHYLAXIS Verified 09/14/21 17:11 iodine Allergy Severe ANAPHYLAXIS Verified 09/14/21 17:11 -SHELLFISH colestipol Allergy Unknown RASH Verified 09/14/21 17:11 doxycycline Allergy Unknown HIVES Verified 09/14/21 17:11 glimepiride Allergy Unknown RASH Verified 09/14/21 17:11 glyburide Allergy Unknown RASH Verified 09/14/21 17:11 metformin Allergy Unknown RASH Verified 09/14/21 17:11 ondansetron [From Zofran] Allergy Unknown Unknown Verified 09/14/21 17:35 pioglitazone Allergy Unknown RASH Verified 09/14/21 17:11 rosuvastatin Allergy Unknown ITCHING Verified 09/14/21 17:11 RASH shellfish derived Allergy Unknown SWELLING Verified 09/14/21 17:11 OF FACE AND MOUTH tramadol Allergy Unknown EARS RING, Verified 09/14/21 17:11 FUZZY VISION amitriptyline [From Elavil] AdvReac Unknown WT GAIN Verified 09/14/21 17:11 diphenhydramine AdvReac Unknown HEAD GOES Verified 09/14/21 17:11 CRAZY-RINGING EARS,STRANGE hydroxyzine AdvReac Unknown MENTAL Verified 09/14/21 17:11 CONFUSION pseudoephedrine AdvReac Unknown JITTERINESS Verified 09/14/21 17:11 sulfamethoxazole AdvReac Unknown Unknown Verified 09/14/21 17:35 [From Bactrim] trimethoprim [From Bactrim] AdvReac Unknown Unknown Verified 09/14/21 17:35 Home Medications Medication Instructions Recorded Confirmed Type diphenoxylate-atropine 2.5 2 tab PO Q6 PRN Diarrhea 05/03/18 12/12/22 History mg-0.025 mg tablet furosemide 40 mg tablet 40 mg PO DAILY 05/03/18 12/12/22 History methscopolamine 2.5 mg tablet 2.5 mg PO TID PRN Cramps 05/03/18 12/12/22 History omeprazole 20 mg capsule,delayed 20 mg PO QAM 05/03/18 12/12/22 History release diclofenac sodium 1 % topical gel 2 g topical QID 07/22/18 12/12/22 History fluticasone furoate 100 1 inh inhalation QAM 07/22/18 12/12/22 History mcg-vilanterol 25 mcg/dose inhalation powder (Breo Ellipta) ondansetron 4 mg disintegrating 4 mg PO Q6H PRN Nausea 07/22/18 12/12/22 History tablet albuterol sulfate 2.5 mg/3 mL 2.5 mg continuous nebulization Q4 09/14/21 12/12/22 History (0.083 %) solution for nebulization PRN Shortness Of Breath Or Wheezing albuterol sulfate 90 mcg/actuation 1 - 2 inh inhalation QID PRN 09/14/21 12/12/22 History aerosol inhaler (Proventil HFA) Shortness Of Breath Or Wheezing alosetron 1 mg tablet 1 mg PO BID 09/14/21 12/12/22 History aspirin 81 mg chewable tablet 81 mg PO DAILY 09/14/21 12/12/22 History atorvastatin 40 mg tablet 40 mg PO QAM 09/14/21 12/12/22 History clonazepam 0.5 mg tablet 0.5 mg PO TID PRN Anxiety 09/14/21 12/12/22 History doxepin 100 mg capsule 100 mg PO HS 09/14/21 12/12/22 History famotidine 40 mg tablet 40 mg PO DAILY 09/14/21 12/12/22 History fluticasone propionate 50 2 spray intranasal BID 09/14/21 12/12/22 History mcg/actuation nasal spray,suspension lisinopril 20 mg tablet 20 mg PO QAM 09/14/21 12/12/22 History metoprolol succinate 25 mg 25 mg PO QAM 09/14/21 12/12/22 History tablet,extended release 24 hr montelukast 10 mg tablet 10 mg PO QAM 09/14/21 12/12/22 History pramipexole 1 mg tablet 1 mg PO HS 09/14/21 12/12/22 History prochlorperazine maleate 10 mg 10 mg PO Q6H PRN Nausea 09/14/21 12/12/22 History tablet (Compazine) clonidine HCl 0.1 mg tablet 0.1 mg PO BID 12/12/22 12/12/22 History ferrous gluconate 240 mg (27 mg 240 mg PO DAILY 12/12/22 12/12/22 History iron) tablet (Ferate) metoprolol succinate 25 mg 12.5 mg PO HS 12/12/22 12/12/22 History tablet,extended release 24 hr semaglutide 2 mg/dose (8 mg/3 mL) 0.75 mg subcut WK 12/12/22 12/12/22 History subcutaneous pen injector (Ozempic) Patient History Medical History Anxiety Asthma moderate persistent Chronic back pain LOWER CKD (chronic kidney disease) stage 3, GFR 30-59 ml/min 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 Depression Diverticular disease DJD (degenerative joint disease), cervical DM type 2 (diabetes mellitus, type 2) IDDM Dyslipidemia GERD (gastroesophageal reflux disease) GERD (gastroesophageal reflux disease) CONTROLLED History of opioid abuse PER RECORDS Hypertension IBS (irritable bowel syndrome) Migraine Neuropathy DIABETIC NEUROPATHY- FEET KATERIN (obstructive sleep apnea) Osteoarthritis Osteoporosis Panic disorder Pulmonary HTN RLS (restless legs syndrome) Temporomandibular joint disorder + CLICKING; NO LOCKING Venous insufficiency Surgical History H/O arthroscopic knee surgery LEFT H/O colonoscopy History of colonoscopy 02/2021, sigmoid diverticulosis, poor prep History of difficult intubation RIGHT SHOULDER SCOPE WITH RCR= 06/29/16= GLIDESCOPE #3 "GOOD VIEW", ETT 7 AT [facility] History of esophagogastroduodenoscopy (EGD) History of repair of rotator cuff B/L History of total knee replacement LEFT Perianal abscess S/P DRAINAGE S/P cholecystectomy S/P hysterectomy Family History Sister Family history of diabetes mellitus Family hx of colon cancer Brother Family history of diabetes mellitus Grandmother (Maternal) Family history of diabetes mellitus Family/Other Family history of diabetes mellitus Other Diabetes Social History Smoking Status: Never smoker Second Hand Exposure: No; Do You Dip or Chew Tobacco: No; Hx Alcohol Use: No Hx Substance Use: No Preferred Language: Greenlandic Communication Ability: Effective 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: No Beliefs That Will Affect Care: None marital status: Current Living Situation: Spouse Current Living Situation Comment: home current occupational status: retired Feels Safe at Home: Yes Assistive Devices: Cane Physical Exam Constitutional: cooperative and comfortable; no acute distress Eyes: PERRL, conjunctivae normal, anicteric sclerae ENMT: external ear and nose normal, oropharynx normal Neck: trachea midline, no thyromegaly Respiratory: normal respiratory effort, lungs clear to auscultation Cardiovascular: RRR, no murmur, no edema Heart Sounds: normal S1 and normal S2; no murmur Extremities: normal capillary refill and + edema (Bilateral pedal edema +1) Gastrointestinal (Abdomen): Abdomen soft, obese, tender to palpation in all 4 quadrants, bowel sounds auscultated all 4 quadrants Musculoskeletal: no cyanosis or clubbing, extremities motor strength 5/5 Skin: no rashes, warm and dry Neurologic: PERRL, EOMI, accommodation nl, no face palsy, no dysarthria Psychiatric: A+Ox3, euthymic affect Genitourinary: Indwelling Schaefer catheter present, urine dark concentrated yellow, no sediment Results & Data Results & Data Vital Signs (Past 12 Hours) Vital Signs Temp Pulse Pulse Resp BP BP Pulse Ox 12/12/22 22:11 96/39 L 12/12/22 22:11 84 24 98 12/12/22 22:10 84 25 H 99 12/12/22 22:06 103/71 12/12/22 22:06 87 22 96 12/12/22 22:05 87 24 98 12/12/22 22:01 91/40 L 12/12/22 22:01 86 23 98 12/12/22 22:00 86 23 99 12/12/22 21:56 124/53 L 12/12/22 21:56 87 21 98 12/12/22 21:55 87 25 H 100 12/12/22 21:51 129/56 L 12/12/22 21:51 87 21 95 12/12/22 21:50 88 21 91 12/12/22 21:46 89/42 L 12/12/22 21:46 82 22 99 12/12/22 21:45 83 20 91 12/12/22 21:44 75/40 L 12/12/22 21:44 83 21 96 12/12/22 21:40 81 23 97 12/12/22 21:40 53/39 L 12/12/22 21:36 83 21 98 12/12/22 21:36 79/40 L 12/12/22 21:35 84 17 99 12/12/22 21:46 36.5 C 12/12/22 21:30 89 20 98 12/12/22 21:30 84/46 L 12/12/22 21:25 87 21 99 12/12/22 21:25 77/41 L 12/12/22 21:21 70/37 L 12/12/22 21:21 89 25 H 72 L 12/12/22 21:20 88 28 H 98 12/12/22 21:15 85 23 98 12/12/22 21:11 93/45 L 12/12/22 21:11 85 23 73 L 12/12/22 21:10 83 23 98 12/12/22 21:06 75/45 L 12/12/22 21:06 83 25 H 90 12/12/22 21:05 83 25 H 100 12/12/22 21:01 83/30 L 12/12/22 21:01 82 23 12/12/22 21:00 82 29 H 12/12/22 20:56 82 22 12/12/22 20:56 70/43 L 12/12/22 20:55 80 25 H 12/12/22 20:50 84 21 98 12/12/22 20:45 81 22 100 12/12/22 20:45 91/43 L 12/12/22 20:40 81 20 97 12/12/22 20:40 75/46 L 12/12/22 20:35 80 22 12/12/22 20:35 63/43 L 12/12/22 20:33 75 20 12/12/22 20:33 82/34 L 12/12/22 20:30 77 21 12/12/22 20:26 81/42 L 12/12/22 20:26 80 27 H 12/12/22 20:25 75 22 12/12/22 20:20 75 19 12/12/22 20:16 74/45 L 12/12/22 20:16 78 21 12/12/22 20:15 76 28 H 12/12/22 20:12 76 19 12/12/22 20:12 84/42 L 12/12/22 19:55 78 24 12/12/22 19:50 78 20 12/12/22 19:45 80 24 12/12/22 19:40 74 18 12/12/22 19:35 74 18 12/12/22 19:30 75 21 12/12/22 19:29 74 23 12/12/22 20:57 82 22 70/43 L 98 12/12/22 20:49 85 21 91/43 L 100 12/12/22 20:21 74 74/45 L 12/12/22 19:49 79 20 107/51 L 98 12/12/22 19:35 98 12/12/22 19:35 75 18 117/56 L 98 12/12/22 19:35 74 12/12/22 19:02 36.4 C 79 16 65/49 L 98 O2 Del Method 12/12/22 22:11 12/12/22 22:11 12/12/22 22:10 07/19/23 22:06 12/12/22 22:06 12/12/22 22:05 12/12/22 22:01 12/12/22 22:01 Room Air 12/12/22 22:00 12/12/22 21:56 12/12/22 21:56 12/12/22 21:55 12/12/22 21:51 12/12/22 21:51 12/12/22 21:50 12/12/22 21:46 12/12/22 21:46 12/12/22 21:45 12/12/22 21:44 12/12/22 21:44 12/12/22 21:40 12/12/22 21:40 12/12/22 21:36 12/12/22 21:36 12/12/22 21:35 12/12/22 21:46 12/12/22 21:30 12/12/22 21:30 12/12/22 21:25 12/12/22 21:25 12/12/22 21:21 12/12/22 21:21 12/12/22 21:20 12/12/22 21:15 12/12/22 21:11 12/12/22 21:11 12/12/22 21:10 12/12/22 21:06 12/12/22 21:06 12/12/22 21:05 12/12/22 21:01 12/12/22 21:01 12/12/22 21:00 12/12/22 20:56 12/12/22 20:56 12/12/22 20:55 12/12/22 20:50 12/12/22 20:45 12/12/22 20:45 12/12/22 20:40 12/12/22 20:40 12/12/22 20:35 12/12/22 20:35 12/12/22 20:33 12/12/22 20:33 12/12/22 20:30 12/12/22 20:26 12/12/22 20:26 12/12/22 20:25 12/12/22 20:20 12/12/22 20:16 12/12/22 20:16 12/12/22 20:15 12/12/22 20:12 12/12/22 20:12 12/12/22 19:55 12/12/22 19:50 12/12/22 19:45 12/12/22 19:40 12/12/22 19:35 12/12/22 19:30 12/12/22 19:29 12/12/22 20:57 12/12/22 20:49 Room Air 12/12/22 20:21 12/12/22 19:49 Room Air 12/12/22 19:35 12/12/22 19:35 12/12/22 19:35 12/12/22 19:02 Room Air Coding Level of Care Code 92835 CRITICAL CARE EA ADD 30M Diagnoses Septic shock A41.9; R65.21 Metabolic acidosis E87.20 Hyponatremia E87.1 Acute renal failure N17.9 Acute renal failure type: unspecified CKD (chronic kidney disease) stage 3, GFR 30-59 ml/min N18.30 KATERIN (obstructive sleep apnea) G47.33 RLS (restless legs syndrome) G25.81 Hypertension I10 Anxiety F41.9 Dyslipidemia E78.5 DM type 2 (diabetes mellitus, type 2) E11.9 GERD (gastroesophageal reflux disease) K21.9 DJD (degenerative joint disease), cervical M47.812 Depression F32.9 (4) Acute renal failure Acute renal failure type: unspecified Qualified Code(s): N17.9 - Acute kidney failure, unspecified
[2022-12-13] MEDS: INSULIN ASPART PER UNIT CHARGE SC SCH ×7 (00:17→23:42)
[2022-12-13 00:39] LABS: Base Excess VBG -12.8 mEq/L; HCO3 VBG 12 mmol/L; Oxygen Saturation VBG 75.5 %; PCO2 VBG 26 mmHg (38-50); PO2 VBG 47 mmHg; pH VBG 7.28 (7.36-7.41)
[2022-12-13] MEDS: NOREPINEPHRINE/D5W 4 MG/250 ML PLCT IV SCH ×4 (00:49→14:10)
--- NOTE | 2022-12-13 01:04 | Procedure Note ---
Procedure Note Date of Service December 13, 2022 Note INTERNAL JUGULAR CENTRAL LINE PROCEDURE NOTE: Procedure: Internal Jugular Central Line Placement Attending: Dr. Evan Johnson Provider: ADELA Deal Indication: Central Drug Administration, Poor Venous Access, Multiple Lab Draws Necessary, etc. Anesthesia: Lidocaine 1% Consent was signed and placed on the chart prior to procedure. Indication, risks, and benefits were explained at length. A time-out was completed verifying correct patient, procedure, site, positioning, and implants(s) or special equipment if applicable. Patients Right Neck was cleansed and draped in the typical sterile fashion using Chloraprep. The Internal Jugular Vein and Carotid Artery were identified using ultrasound. The superficial tissue was anesthetized using 3 mL of 1% lidocaine without epinephrine under direct visualization with the ultrasound. After adequate anesthetization was achieved, the Internal Jugular vein was cannulated under direct ultrasound guidance using an introducer needle on a syringe. Good venous blood return was maintained prior to removal of syringe from introducer needle. Using Seldinger Technique, a guide wire was advanced through the introducer needle without resistance. The introducer needle was removed and ultrasound images were obtained of the guide wire within the Internal Jugular Vein and saved to the patients medical record. A small incision was made in penetrating fashion at the guide wire insertion site utilizing an 11 blade scalpel. The dilator was advanced to the vessel without resistance. The dilator was exchanged for the triple lumen catheter which was advanced into the vessel without resistance. The guide wire was removed intact from the catheter without issue. Claves were placed on each catheter tip with confirmation of good blood flow from each lumen. Each port was easily flushed with sterile saline. The catheter was placed at 16 cm and sutured in place. BioPatch was applied to the catheter and a sterile Tegaderm dressing was applied over the catheter with careful attention to sterility. Patient tolerated procedure well. No immediate complications were met. Post procedure x-ray was completed, placement was appropriate and no pneumothorax was noted. Images obtained are saved for permanent record Procedural Ultrasound Guidance: Procedure Date: 12/13/2022 Indication: Central venous catheter insertion Attending: Dr. Johnson Provider: ADELA Deal Artery AND Vein visualized: Yes Compressible Vein: Yes Guidewire or Short Catheter seen in vein prior to dilation: Yes Line confirmed in Vein with ultrasound: Yes Images obtained are saved for permanent record. Coding CPT Codes Tubes, Drains, and Vasc Access - Tubes, Drains, and Vasc Access: [id number] Place catheter in vein superior or inferior vena cava ([id number]) Tubes, Drains, and Vasc Access - Tubes, Drains, and Vasc Access: [id number] Ultrasound Guidance For Vascular ([id number]) [facility] [place] Codes (Charges) Tubes, Drains, and Vasc Access Procedure 1: Tubes, Drains, and Vasc Access: [id number] Place catheter in vein superior or inferior vena cava Procedure 2: Tubes, Drains, and Vasc Access: [id number] Ultrasound Guidance For Vascular
[2022-12-13 01:08] LABS: Calcium 8.5 mg/dl (8.6-10.3); Creatinine Clr Calc Pharmacy 5.9 ml/min; Est GFR (African American) 3.4 ml/min; Est GFR (Non-African American) 2.9 ml/min; Potassium 5.3 mmol/L (3.5-5.1); Troponin I High Sensitivity 88.9 pg/ml (0-14)
--- NOTE | 2022-12-13 01:31 | Procedure Note ---
Procedure Note Date of Service December 13, 2022 Note ARTERIAL LINE PROCEDURE NOTE: Procedure: Arterial Line Placement Attending: Dr. Johnson Provider: ADELA Deal Indication: Monitoring on Pressors Anesthesia: Lidocaine 1% Consent was signed and placed on the chart prior to procedure. Indication, risks, and benefits were explained at length. A time-out was completed verifying correct patient, procedure, site, positioning, and implant(s) or special equipment if applicable. Allens test was performed to ensure adequate perfusion. Patients right wrist was prepped and draped in the usual sterile fashion. Ultrasound guidance was used to aid needle placement. A 20g Arrow arterial line was introduced into the right radial artery. Catheter was threaded, and the needle was removed with appropriate blood return. Good waveform was observed. The patient tolerated the procedure well. Confirmation of placement with ultrasound. Blood Loss: Minimal Complications: None Procedural Ultrasound Guidance: Procedure Date: 12/13/2022 Indication: Arterial line insertion Attending: Dr. Johnson Provider: ADELA Deal Artery Identified: YES Line confirmed in Artery with ultrasound: Yes Complications: NONE Patient tolerated procedure: WELL Coding CPT Codes Tubes, Drains, and Vasc Access - Tubes, Drains, and Vasc Access: [id number] Arterial Cath/Cannulation Sampling/Monitoring/Transfusion ([id number]) Tubes, Drains, and Vasc Access - Tubes, Drains, and Vasc Access: [id number] Ultrasound Guidance For Vascular ([id number]) [facility] [place] Procedure Codes (Charges) Tubes, Drains, and Vasc Access Procedure 1: Tubes, Drains, and Vasc Access: [id number] Arterial Cath/Cannulation Sampling/Monitoring/Transfusion Procedure 2: Tubes, Drains, and Vasc Access: [id number] Ultrasound Guidance For Vascular
[2022-12-13 01:32] LABS: BUN Creatinine Ratio 14.6 (10-20)
[2022-12-13] MEDS ORDERED: SODIUM CHLORIDE 0.9% 1000ML 500 ML IV ONE (01:35)
[2022-12-13] MEDS: SODIUM BICARBONATE 8.4% 150 MEQ in WATER, STERILE 1,000 ML IV SCH ×3 (01:48→19:03)
[2022-12-13 03:23] LABS: HCO3 VBG 13 mmol/L; Oxygen Saturation VBG 81.1 %; PCO2 VBG 27 mmHg (38-50); PO2 VBG 51 mmHg; pH VBG 7.29 (7.36-7.41)
[2022-12-13 03:45] LABS: Calcium 8.4 mg/dl (8.6-10.3); Creatinine Clr Calc Pharmacy 6.2 ml/min; Est GFR (African American) 3.6 ml/min; Est GFR (Non-African American) 3.1 ml/min; Potassium 4.4 mmol/L (3.5-5.1)
[2022-12-13 04:03] LABS: BUN Creatinine Ratio 14.9 (10-20)
[2022-12-13] MEDS ORDERED: SODIUM CHLORIDE 0.45 % 500 ML IV ONE (04:44)
[2022-12-13] MEDS ORDERED: VANCOMYCIN CONSULT ACTIVE PRN (04:45)
[2022-12-13] MEDS ORDERED: VANCOMYCIN HCL 2,250 MG in SODIUM CHLORIDE 0.9% 500 ML IV SCH (05:00)
[2022-12-13] MEDS ORDERED: VANCOMYCIN HCL 2,250 MG in SODIUM CHLORIDE 0.9% 500 ML IV ONE (05:00)
[2022-12-13 05:43] LABS: Hematocrit (blood only) 27.4 % (37.0-47.0); Hemoglobin 9.8 g/dl (12.0-16.0); Mean Corpuscular Hemoglobin 30.4 pg (25.0-34.0); Mean Corpuscular Hgb Conc 35.8 g/dL (32.0-36.0); Mean Corpuscular Volume 85.1 fL (80.0-100.0); Mean Platelet Volume 11.7 fL (9.4-12.4); Platelet Count 248 K/uL (130-400); RDW Coefficient of Variation 14.1 % (11.5-14.5); RDW Standard Deviation 43.8 fL (36.4-46.3); Red Blood Count 3.22 M/uL (4.20-5.40); White Blood Count 28.73 K/ul (4.8-10.8)
[2022-12-13 06:00] LABS: Albumin Level 2.7 gm/dl (3.4-5.0); Bilirubin Direct 0.6 mg/dl (0-0.2); Bilirubin,Total 0.9 mg/dl (0.2-1.0); Magnesium 1.6 mg/dl (1.7-2.4); Phosphorus 6.3 mg/dl (2.5-4.9)
[2022-12-13] MEDS: HEPARIN SOD 5,000 UNIT/0.5 ML VIAL SQ SCH ×3 (06:00→22:18)
[2022-12-13 06:03] LABS: Basophils # (auto) 0.06 K/uL (0-0.2); Basophils % (auto) 0.2 %; Dohle Bodies 1+; Echinocytes 2+; Eosinophils # (auto) 0.34 K/uL (0-0.50); Eosinophils % (auto) 1.2 %; Immature Granulocytes # (auto) 0.45 K/uL (0.01-0.20); Immature Granulocytes % (auto) 1.6 %; Lymphocytes # (auto) 0.48 K/uL (1.2-3.4); Lymphocytes % (auto) 1.7 %; Monocytes # (auto) 2.04 K/uL (0.11-0.59); Monocytes % (auto) 7.1 %; Neutrophils # (auto) 25.36 K/uL (1.40-6.50); Neutrophils % (auto) 88.2 %
[2022-12-13 06:25] LABS: Estimated Average Glucose 137 mg/dl; Hemoglobin A1C 6.4 % (4.5-5.6)
[2022-12-13] MEDS: VASOPRESSIN 20 UNITS in 0.9 % SODIUM CHLORIDE 100 ML IV SCH ×2 (06:25→14:12)
[2022-12-13] MEDS: MAGNESIUM SULFATE / D5W 1 GM/100 ML BAG IV SCH ×3 (06:33→10:15)
--- NOTE | 2022-12-13 06:44 | XRay Report ---
XR chest 1V portable CLINICAL HISTORY: Sepsis TECHNIQUE: Single frontal radiograph of the chest was obtained. Comparison: Comparison is made to chest radiograph 09/14/2021 FINDINGS: No lines and tubes are seen. The cardiomediastinal silhouette is normal. The lungs are clear. No evid ence of pleural effusion or pneumothorax. IMPRESSION: No acute abnormalities and in particular no radiographic evidence of pneumonia. ACT 112: Negative or not required by law. Electronically signed by: Liban Jessica M.D. 12/13/2022 6:42 AM
--- NOTE | 2022-12-13 06:59 | XRay Report ---
XR chest 1V portable CLINICAL HISTORY: new central line R IJ placement TECHNIQUE: Single frontal radiograph of the chest was obtained. Comparison: Comparison is made to chest radiograph 12/12/2022 FINDINGS: Right sided venous catheter terminates in the lower SVC. The cardiomediastinal silhouette is normal. The lungs are clear. No evidence of pleural effusion or pneumothorax. IMPRESSION: Satisfactory position of right central line without evidence of pneumothorax. ACT 112: Negative or not required by law. Electronically signed by: Liban Jessica M.D. 12/13/2022 6:58 AM
[2022-12-13] MEDS ORDERED: SODIUM ZIRCONIUM CYCLOSILICATE 10 GM PACKET PO SCH (07:00)
[2022-12-13] MEDS ORDERED: PIPERACILLIN/TAZOBACTAM 4.5 GM in DEXTROSE 5% 100 ML IV SCH (07:00)
[2022-12-13 07:29] LABS: Base Excess VBG -10.9 mEq/L; HCO3 VBG 13 mmol/L; Oxygen Saturation VBG 98.8 %; PCO2 VBG 24 mmHg (38-50); PO2 VBG 95 mmHg; pH VBG 7.35 (7.36-7.41)
[2022-12-13] MEDS ORDERED: ICU Protocol for HYPERglycemia SCH (07:30)
--- NOTE | 2022-12-13 07:31 | Nephrology Consultation ---
Date of Consultation December 13, 2022 Assessment & Plan (1) DAVONTE (acute kidney injury): improving stage 3 non oliguric DAOVNTE on progressive CKD 3 versus preexisting DAVONTE based on August 2022 creatinine reading of 1.7. Patient is clinically and in terms of labs from a kidney standpoint improving though still critical. Note also however her OP creatinine is increasing dramatically over the past year from 1.0 on 08/2021 [facility] labs to 1.1 in 02/2022 and 1.7 08/2022 on [facility] readings; no definite baseline value at this time; would guess around 1.5 but this is a guess only and no way to establish it. inflamed, nephritic UA noted > could be UTI, could be interstitial, tubular, or glomerular process at this point. Paula wisdom w/ RTE in UA is ATN. -currently no strong indication for dialysis discussion though her situation is still tenuous clinically and cannot rule out need -continue supoortive care for GN bacteremia > BP support, targeted abtx -continue strict I/O -contiue pressors and bicarb gtt current rate 125 ml/hr for now (2) Severe sepsis: blood cultures as I complete this consult now 08/28 GNR along w/ urine culture; pt [id number] hx of e coli UTI >f/u pending culture data >broad spectrum abtx now narrowed to ceftriaxone >continue BP support -f/u TTE report (3) Hyponatremia: needs urine osm, urine sodium, serum osms > so ordered goal is sNa 128-130 for this evening >continue q 4-6 hr bmp -maintain eukalemia (especially tricky w/ her creatinine) >may need to modify fluid tonicity to control rate of change Na >> will follow for this; may need pressors longer depending on status History of Present Illness Reason for Consultation: DAVONTE, hyponatremia, hyperkalemia Requesting Physician: Dr Hinton Attending Physician: Sean Castro MD History of Present Illness 72-year-old female whom I am asked to see for acute kidney injury, hyponatremia, hyperkalemia was admitted overnight with septic shock after presenting with a week of diarrhea. Past medical history includes nonproteinuric CKD 3 w/ labile creatinine (1.1 in 02/2022 and 1.7 08/2022 on [facility] labs, [facility]), HTN, DM2, HL, asthma, KATERIN (3 to 4 L NC HS), pulmonary HTN, IBS, GERD, anxiety and depression, RLS, neuropathy and chronic pain. Pt had increased her ozempic dose about 10 days prior to presentation. A few days after dose increase she developed diarrhea > 7 bm daily w/ some formed and darker bm as week progressed. She had markedly decreased po same timeframe but continued her OP medications. No nsaid use. Presenting creatinine 13.3 > 11.1 this AM. Presenting BUN 174. Presenting K 6.6 w/ bicarb of 9 > 4.4 and 13 this am respectively. sodium was 122 1930 last evening >126 this am at 0300. WBC 31K > 29. UA collected in ER contaminated specimen but also w/ 4+ bacteria and renal tubular cells. CT a/p non con and CXR w/o acute process apart from possible colitis. She had 3 L of saline and then emergency department followed by a bicarb drip currently at 125 ml/hr. Currently requiring Levophed and vasopressin to maintain MAP greater than 65, though pressor needs downtrending. As of this AM she is 1.5L positive and has made 2L of urine. She was started on zosyn and vancomycin. She has not had BM since arrival to hospital. denies dysuria, gross hematuria. no nausea though tells me she did have emesis x 1 day of admission NBNB. no f/c. significant wt loss (about 90 lb) in past year on ozempic. no rash. no edema. no abdominal pain. marked generalized weakness and some tremors/spasms. stable chronic neck stiffness and generalized stable chronic joint pain. 3 days of WARNER. Rest of 12 system review otherwise negative. Allergies Allergy/AdvReac Type Severity Reaction Status Date / Time bee venom protein (honey bee) Allergy Severe ANAPHYLAXIS Verified 09/14/21 17:11 iodine Allergy Severe ANAPHYLAXIS Verified 09/14/21 17:11 -SHELLFISH colestipol Allergy Unknown RASH Verified 09/14/21 17:11 doxycycline Allergy Unknown HIVES Verified 09/14/21 17:11 glimepiride Allergy Unknown RASH Verified 09/14/21 17:11 glyburide Allergy Unknown RASH Verified 09/14/21 17:11 metformin Allergy Unknown RASH Verified 09/14/21 17:11 ondansetron [From Zofran] Allergy Unknown Unknown Verified 09/14/21 17:35 pioglitazone Allergy Unknown RASH Verified 09/14/21 17:11 rosuvastatin Allergy Unknown ITCHING Verified 09/14/21 17:11 RASH shellfish derived Allergy Unknown SWELLING Verified 09/14/21 17:11 OF FACE AND MOUTH tramadol Allergy Unknown EARS RING, Verified 09/14/21 17:11 FUZZY VISION amitriptyline [From Elavil] AdvReac Unknown WT GAIN Verified 09/14/21 17:11 diphenhydramine AdvReac Unknown HEAD GOES Verified 09/14/21 17:11 CRAZY-RINGING EARS,STRANGE hydroxyzine AdvReac Unknown MENTAL Verified 09/14/21 17:11 CONFUSION pseudoephedrine AdvReac Unknown JITTERINESS Verified 09/14/21 17:11 sulfamethoxazole AdvReac Unknown Unknown Verified 09/14/21 17:35 [From Bactrim] trimethoprim [From Bactrim] AdvReac Unknown Unknown Verified 09/14/21 17:35 Home Medications Medication Instructions Recorded Confirmed Type diphenoxylate-atropine 2.5 2 tab PO Q6 PRN Diarrhea 05/03/18 12/12/22 History mg-0.025 mg tablet furosemide 40 mg tablet 40 mg PO DAILY 05/03/18 12/12/22 History methscopolamine 2.5 mg tablet 2.5 mg PO TID PRN Cramps 05/03/18 12/12/22 History omeprazole 20 mg capsule,delayed 20 mg PO QAM 05/03/18 12/12/22 History release diclofenac sodium 1 % topical gel 2 g topical QID 07/22/18 12/12/22 History fluticasone furoate 100 1 inh inhalation QAM 07/22/18 12/12/22 History mcg-vilanterol 25 mcg/dose inhalation powder (Breo Ellipta) ondansetron 4 mg disintegrating 4 mg PO Q6H PRN Nausea 07/22/18 12/12/22 History tablet albuterol sulfate 2.5 mg/3 mL 2.5 mg continuous nebulization Q4 09/14/21 12/12/22 History (0.083 %) solution for nebulization PRN Shortness Of Breath Or Wheezing albuterol sulfate 90 mcg/actuation 1 - 2 inh inhalation QID PRN 09/14/21 12/12/22 History aerosol inhaler (Proventil HFA) Shortness Of Breath Or Wheezing alosetron 1 mg tablet 1 mg PO BID 09/14/21 12/12/22 History aspirin 81 mg chewable tablet 81 mg PO DAILY 09/14/21 12/12/22 History atorvastatin 40 mg tablet 40 mg PO QAM 09/14/21 12/12/22 History clonazepam 0.5 mg tablet 0.5 mg PO TID PRN Anxiety 09/14/21 12/12/22 History doxepin 100 mg capsule 100 mg PO HS 09/14/21 12/12/22 History famotidine 40 mg tablet 40 mg PO DAILY 09/14/21 12/12/22 History fluticasone propionate 50 2 spray intranasal BID 09/14/21 12/12/22 History mcg/actuation nasal spray,suspension lisinopril 20 mg tablet 20 mg PO QAM 09/14/21 12/12/22 History metoprolol succinate 25 mg 25 mg PO QAM 09/14/21 12/12/22 History tablet,extended release 24 hr montelukast 10 mg tablet 10 mg PO QAM 09/14/21 12/12/22 History pramipexole 1 mg tablet 1 mg PO HS 09/14/21 12/12/22 History prochlorperazine maleate 10 mg 10 mg PO Q6H PRN Nausea 09/14/21 12/12/22 History tablet (Compazine) clonidine HCl 0.1 mg tablet 0.1 mg PO BID 12/12/22 12/12/22 History ferrous gluconate 240 mg (27 mg 240 mg PO DAILY 12/12/22 12/12/22 History iron) tablet (Ferate) metoprolol succinate 25 mg 12.5 mg PO HS 12/12/22 12/12/22 History tablet,extended release 24 hr semaglutide 2 mg/dose (8 mg/3 mL) 0.75 mg subcut WK 12/12/22 12/12/22 History subcutaneous pen injector (Ozempic) Patient History Medical History Anxiety Asthma moderate persistent Chronic back pain LOWER CKD (chronic kidney disease) stage 3, GFR 30-59 ml/min 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 Depression Diverticular disease DJD (degenerative joint disease), cervical DM type 2 (diabetes mellitus, type 2) IDDM Dyslipidemia GERD (gastroesophageal reflux disease) GERD (gastroesophageal reflux disease) CONTROLLED History of opioid abuse PER RECORDS Hypertension IBS (irritable bowel syndrome) Migraine Neuropathy DIABETIC NEUROPATHY- FEET KATERIN (obstructive sleep apnea) Osteoarthritis Osteoporosis Panic disorder Pulmonary HTN RLS (restless legs syndrome) Temporomandibular joint disorder + CLICKING; NO LOCKING Venous insufficiency Surgical History H/O arthroscopic knee surgery LEFT H/O colonoscopy History of colonoscopy 02/2021, sigmoid diverticulosis, poor prep History of difficult intubation RIGHT SHOULDER SCOPE WITH RCR= 06/29/16= GLIDESCOPE #3 "GOOD VIEW", ETT 7 AT [facility] History of esophagogastroduodenoscopy (EGD) History of repair of rotator cuff B/L History of total knee replacement LEFT Perianal abscess S/P DRAINAGE S/P cholecystectomy S/P hysterectomy Family History Sister Family history of diabetes mellitus Family hx of colon cancer Brother Family history of diabetes mellitus Grandmother (Maternal) Family history of diabetes mellitus Family/Other Family history of diabetes mellitus Other Diabetes Social History Smoking Status: Never smoker Second Hand Exposure: No; Do You Dip or Chew Tobacco: No; Hx Alcohol Use: No Hx Substance Use: No Preferred Language: [place]an Communication Ability: Effective Manager Biostatistics Required: No Beliefs That Will Affect Care: None marital status: Current Living Situation: Spouse Current Living Situation Comment: home current occupational status: retired Other Information That Helps Us Care for You: No Feels Safe at Home: Yes Safety Concerns: Feels Safe At This Time Assistive Devices: Cane Review of Systems Review of Systems: All systems reviewed & are unremarkable except as noted in HPI & below Physical Exam Constitutional: well developed, well nourished, + frail appearing and hernán ative; no acute distress Eyes: EOM intact bilaterally ENMT: Ears: no external ear abnormality Nose: no external nose abnormality Mouth: + dry oral mucous membranes Neck: no nuchal rigidity Respiratory: normal respiratory effort Auscultation: lungs clear to auscultation bilaterally and + diminished lung sounds Cardiovascular: Rate/Rhythm: regular rate and regular rhythm Extremities: no edema Gastrointestinal (Abdomen): Inspection/Auscultation: normal bowel sounds Percussion/Palpation: abdomen soft; abdomen nontender Musculoskeletal: Extremities: strength 5/5 throughout Skin: no rashes, warm and dry Neurologic: pastrana, fluent speech, + limb tremor Psychiatric: Orientation: alert and oriented x 3 Genitourinary: fernandes w/ ample light yellow urine Results & Data Vital Signs (Past 12 Hours) Vital Signs Temp Pulse Pulse Resp BP BP Pulse Ox 12/13/22 06:31 89 21 123/59 L 94 12/13/22 06:00 92 H 24 124/56 L 95 12/13/22 05:30 130/71 12/13/22 05:30 94 H 25 H 94 12/13/22 05:00 93 H 24 93 12/13/22 05:00 118/62 12/13/22 04:31 101 H 29 H 128/57 L 94 12/13/22 04:00 92 H 24 128/68 92 12/13/22 03:30 36.9 C 92 H 26 H 120/66 92 12/13/22 03:00 89 25 H 122/55 L 91 12/13/22 02:31 103 H 20 127/58 L 94 12/13/22 02:00 101 H 29 H 94 12/13/22 01:31 93 H 18 132/60 94 12/13/22 04:00 93 H 120/49 L 12/13/22 00:00 89 12/13/22 01:00 36.5 C 94 H 16 120/69 98 12/13/22 00:30 92 H 20 101/43 L 98 12/13/22 00:01 93 H 30 H 107/41 L 97 12/12/22 23:52 94 H 19 115/45 L 98 12/12/22 23:29 97 H 20 74/43 L 12/12/22 23:00 91 H 18 102/50 L 97 12/12/22 22:45 36.4 C L 90 23 96/78 L 97 12/12/22 22:32 92 H 12/12/22 23:00 12/13/22 01:20 89 130/41 L 12/12/22 23:35 36.4 C L 88 18 105/64 98 12/12/22 22:11 96/39 L 12/12/22 22:11 84 24 98 12/12/22 22:10 84 25 H 99 12/12/22 22:06 103/71 12/12/22 22:06 87 22 96 12/12/22 22:05 87 24 98 12/12/22 22:01 91/40 L 12/12/22 22:01 86 23 98 12/12/22 22:00 86 23 99 12/12/22 21:56 124/53 L 12/12/22 21:56 87 21 98 12/12/22 21:55 87 25 H 100 12/12/22 21:51 129/56 L 12/12/22 21:51 87 21 95 12/12/22 21:50 88 21 91 12/12/22 21:46 89/42 L 12/12/22 21:46 82 22 99 12/12/22 21:45 83 20 91 12/12/22 21:44 75/40 L 12/12/22 21:44 83 21 96 12/12/22 21:40 81 23 97 12/12/22 21:40 53/39 L 12/12/22 21:36 83 21 98 12/12/22 21:36 79/40 L 12/12/22 21:35 84 17 99 12/12/22 21:46 36.5 C 12/12/22 21:30 89 20 98 12/12/22 21:30 84/46 L 12/12/22 21:25 87 21 99 12/12/22 21:25 77/41 L 12/12/22 21:21 70/37 L 12/12/22 21:21 89 25 H 72 L 12/12/22 21:20 88 28 H 98 12/12/22 21:15 85 23 98 12/12/22 21:11 93/45 L 12/12/22 21:11 85 23 73 L 12/12/22 21:10 83 23 98 12/12/22 21:06 75/45 L 12/12/22 21:06 83 25 H 90 12/12/22 21:05 83 25 H 100 12/12/22 21:01 83/30 L 12/12/22 21:01 82 23 07/19/23 21:00 82 29 H 12/12/22 20:56 82 22 12/12/22 20:56 70/43 L 12/12/22 20:55 80 25 H 12/12/22 20:50 84 21 98 12/12/22 20:45 81 22 100 12/12/22 20:45 91/43 L 12/12/22 20:40 81 20 97 12/12/22 20:40 75/46 L 12/12/22 20:35 80 22 12/12/22 20:35 63/43 L 12/12/22 20:33 75 20 12/12/22 20:33 82/34 L 12/12/22 20:30 77 21 12/12/22 20:26 81/42 L 12/12/22 20:26 80 27 H 12/12/22 20:25 75 22 12/12/22 20:20 75 19 12/12/22 20:16 74/45 L 12/12/22 20:16 78 21 12/12/22 20:15 76 28 H 12/12/22 20:12 76 19 12/12/22 20:12 84/42 L 12/12/22 19:55 78 24 12/12/22 19:50 78 20 12/12/22 19:45 80 24 12/12/22 19:40 74 18 12/12/22 19:35 74 18 12/12/22 19:30 75 21 12/12/22 19:29 74 23 12/12/22 20:57 82 22 70/43 L 98 12/12/22 20:49 85 21 91/43 L 100 12/12/22 20:21 74 74/45 L 12/12/22 19:49 79 20 107/51 L 98 12/12/22 19:35 98 12/12/22 19:35 75 18 117/56 L 98 12/12/22 19:35 74 O2 Del Method 12/13/22 06:31 12/13/22 06:00 12/13/22 05:30 12/13/22 05:30 12/13/22 05:00 12/13/22 05:00 12/13/22 04:31 Room Air 12/13/22 04:00 Room Air 12/13/22 03:30 Room Air 12/13/22 03:00 12/13/22 02:31 12/13/22 02:00 12/13/22 01:31 Room Air 12/13/22 04:00 12/13/22 00:00 12/13/22 01:00 Room Air 12/13/22 00:30 12/13/22 00:01 12/12/22 23:52 12/12/22 23:29 12/12/22 23:00 12/12/22 22:45 Room Air 12/12/22 22:32 12/12/22 23:00 Room Air 12/13/22 01:20 12/12/22 23:35 Room Air 12/12/22 22:11 12/12/22 22:11 12/12/22 22:10 12/12/22 22:06 12/12/22 22:06 12/12/22 22:05 12/12/22 22:01 12/12/22 22:01 Room Air 12/12/22 22:00 12/12/22 21:56 12/12/22 21:56 12/12/22 21:55 12/12/22 21:51 12/12/22 21:51 12/12/22 21:50 12/12/22 21:46 12/12/22 21:46 12/12/22 21:45 12/12/22 21:44 12/12/22 21:44 12/12/22 21:40 12/12/22 21:40 12/12/22 21:36 12/12/22 21:36 12/12/22 21:35 12/12/22 21:46 12/12/22 21:30 12/12/22 21:30 12/12/22 21:25 12/12/22 21:25 12/12/22 21:21 12/12/22 21:21 12/12/22 21:20 12/12/22 21:15 12/12/22 21:11 12/12/22 21:11 12/12/22 21:10 12/12/22 21:06 12/12/22 21:06 12/12/22 21:05 12/12/22 21:01 12/12/22 21:01 12/12/22 21:00 12/12/22 20:56 12/12/22 20:56 12/12/22 20:55 12/12/22 20:50 12/12/22 20:45 12/12/22 20:45 12/12/22 20:40 12/12/22 20:40 12/12/22 20:35 12/12/22 20:35 12/12/22 20:33 12/12/22 20:33 12/12/22 20:30 12/12/22 20:26 12/12/22 20:26 12/12/22 20:25 12/12/22 20:20 12/12/22 20:16 12/12/22 20:16 12/12/22 20:15 12/12/22 20:12 12/12/22 20:12 12/12/22 19:55 12/12/22 19:50 12/12/22 19:45 12/12/22 19:40 12/12/22 19:35 12/12/22 19:30 12/12/22 19:29 12/12/22 20:57 12/12/22 20:49 Room Air 12/12/22 20:21 12/12/22 19:49 Room Air 12/12/22 19:35 12/12/22 19:35 12/12/22 19:35 Laboratory Results 0700 BMP > 125/ 4.7/ 93/ 14/ 156/ 10 bmp, VBG, UACM reviewed Diagnostic Findings CT a/p non con IMPRESSION: Circumferential wall thickening of the descending and sigmoid colon, with mild pericolonic fat stranding, consistent with mild colitis. (kidneys/ureters/adrenals unremarkable) CXR w/o acute abnormality
[2022-12-13] MEDS ORDERED: LANTUS PER UNIT CHARGE SC ONE ×2 (08:00→20:00)
[2022-12-13 08:14] LABS: BUN Creatinine Ratio 15.6 (10-20); Calcium 8.1 mg/dl (8.6-10.3); Creatinine Clr Calc Pharmacy 6.7 ml/min; Est GFR (African American) 4.1 ml/min; Est GFR (Non-African American) 3.5 ml/min; Potassium 4.7 mmol/L (3.5-5.1)
[2022-12-13 08:26] LABS: A calco-baum cmplx NotReported Not Detected (NotDetected); Bact fragilis Not Reported Not Detected (NotDetected); C auris Not Reported Not Detected (NotDetected); CTX-M Resistant Gene Not Detected (NotDetected); Calbicans Not Reported Not Detected (NotDetected); Candida glabrata Not Reported Not Detected (NotDetected); Candida krusei Not Reported Not Detected (NotDetected); Cneoformans/gatti Not Reported Not Detected (NotDetected); Cparapsilosis Not Reported Not Detected (NotDetected); Ctropicalis Not Reported Not Detected (NotDetected); E cloacae compx Not Reported Not Detected (NotDetected); Efaecalis Not Reported Not Detected (NotDetected); Efaecium Not Reported Not Detected (NotDetected); Enterobacterales DETECTED (NotDetected); Enterobacterales Not Reported DETECTED (NotDetected); Escherichia coli Not Reported Not Detected (NotDetected); H influenzae Not Reported Not Detected (NotDetected); IMP Resistant Gene Not Detected (NotDetected); K aerogenes Not Reported Not Detected (NotDetected); KPC Resistant Gene Not Detected (NotDetected); Koxytoca Not Reported Not Detected (NotDetected); Kpneumoniae grp Not Reported DETECTED (NotDetected); Lmonocyt Not Reported Not Detected (NotDetected); N meningitidis Not Reported Not Detected (NotDetected); NDM Resistant Gene Not Detected (NotDetected); OXA 48 Like Resistant Gene Not Detected (NotDetected); P aeruginosa Not Reported Not Detected (NotDetected); Proteus spp Not Reported Not Detected (NotDetected); Salmonella spp Not Reported Not Detected (NotDetected); Smarcescens Not Reported Not Detected (NotDetected); Staph lugdunensis Not Reported Not Detected (NotDetected); Staph spp. Not Reported Not Detected (NotDetected); Staphaureus Not Reported Not Detected (NotDetected); Staphepi Not Reported Not Detected (NotDetected); Stenmaltophilia Not Reported Not Detected (NotDetected); Strep agal(GrpB) Not Reported Not Detected (NotDetected); Strep pneum Not Reported Not Detected (NotDetected); Strep pyog (GrpA) Not Reported Not Detected (NotDetected); Strep spp Not Reported Not Detected (NotDetected); VIM Resistant Gene Not Detected (NotDetected); mcr-1 Colistin Resistant Gene Not Detected (NotDetected)
[2022-12-13] MEDS: FLUTICASONE/VILANTEROL 100/25MCG 14 PUFFS/INHALER INH SCH (08:41)
[2022-12-13] MEDS: ASPIRIN 81 MG ECTAB PO SCH (08:42)
[2022-12-13] MEDS: PANTOprazole 40 MG TAB PO SCH (08:42)
[2022-12-13] MEDS: MONTELUKAST SODIUM 10 MG TABLET PO SCH (08:42)
[2022-12-13 08:56] LABS: Klebsiella pneumoniae group DETECTED (NotDetected)
[2022-12-13] MEDS ORDERED: FAMOTIDINE 20 MG in SYRINGE 3 ML IV SCH (09:00)
--- NOTE | 2022-12-13 11:18 | Pharmacy Report ---
Pharmacy Glycemic Short Note 2 - Date of Service December 13, 2022 - Glycemic Short BSG Results (Last 24 hours): 12/12/22 12/12/22 12/12/22 19:27 19:34 22:57 Glucose 230 H POC Glucose 236 H 183 H POC Glucose (other) 12/13/22 12/13/22 12/13/22 00:23 03:14 04:31 Glucose 204 H 199 H POC Glucose POC Glucose (other) 217 H 12/13/22 12/13/22 07:11 07:25 Glucose 250 H POC Glucose POC Glucose (other) 250 H OUTPATIENT ANTIDIABETIC REGIMEN: * Ozempic * Note: diarrhea on admission correlates with increased Ozempic dose * HbA1c 6/4% on 12/13/22 ASSESSMENT: * 72 yo F with T2DM admitted to the ICU with sepsis 2nd K. pneumo bacteremia, likely UTI or GI source. Currently NPO and weaning off pressors. * Previous admissions reviewed - most recent one where patient was on steroids for COVID - not likely helpful for this admission while not on steroids. Also reviewed multiple day admission in 2018 while not on steroids. Lantus dose initially exceeded 130 units/day for many days initially but was decreased down to ~50 units/day after AM hypoglycemic episode ~3 days into the admission. * Will half Lantus dose as compared to the end of the previous admission due to NPO status and also ICU status (goal BSG 140-180 mg/dL) * OK to utilized more aggressive correction factor - similar to previous and also low-dose Lantus. Weight-based moderate stress CHO ratio for if/when patient is ordered a diet PLAN FOR INPATIENT GLYCEMIC CONTROL: * Hold outpatient diabetes medications * Basal insulin * Lantus 25 units SQ x1. Additional 10 units tonight if BSG >180 mg/dL * Bolus insulin * NovoLog per scale ACHS or Q6hrs while NPO * Goal Range: Low 140 mg/dL - High 180 mg/dL * Correction Factor: 15 mg/dL/unit * Nutritional / Prandial insulin per carb ratio of 1 unit per 7 grams CHO consumed
[2022-12-13] MEDS ORDERED: ALBUMIN 25% 25 GM/100 ML VIAL IV ONE (11:46)
[2022-12-13] MEDS ORDERED: CALCIUM CHLORIDE 10% 1,000 MG in DEXTROSE 5% 50 ML IV STA (11:46)
--- NOTE | 2022-12-13 11:48 | Critical Care Progress Note ---
Date of Service December 13, 2022 Assessment & Plan (1) Septic shock: (2) DAVONTE (acute kidney injury): (3) Severe sepsis: (4) Metabolic acidosis: (5) Bacteremia due to Klebsiella pneumoniae: (6) Pyelonephritis: Plan Reason Critically Ill: 72-year-old female with extensive past medical history presents to the ICU with septic shock and acute renal failure, currently on vasopressor support and bicarb drip, following 1 week of diarrhea and urinalysis concerning for UTI. 24-hour events: Patient was admitted to the ICU from the ER. A central line and arterial line were placed. She continued high-dose vasopressor agents. She was adequately resuscitated with IV volume. Her lactate is cleared. Kidney function is improving. Nephrology consult completed. Recommendations Neuro -no current issues. Holding outpatient anxiolytic and antidepressant medications. Cardiac -severe sepsis with septic shock due to ascending urinary tract infection with gram-negative bacteremia. Await follow-up echocardiogram. Tropo janie trivially elevated due to supply/demand mismatch. Continue efforts to wean norepinephrine and then vasopressin to off. We will give single dose of albumin for volume expansion. Respiratory -history of sleep disordered breathing and asthma. Continue Breo inhaler. Not bronchospastic. Minimal oxygen requirement currently. Wean as tolerated to defend oxygen saturations greater than or equal to 90% GI -antecedent history of diarrhea. CT scan showed some evidence of colitis. Continue metronidazole and supportive care. Keep on clear liquids for now. Once vasopressor requirements decreased we will advance diet as tolerated. Continue PPI RENAL/LYTES -acute renal failure, likely secondary to hypovolemia and acute ATN. Discussed with nephrology today. Serum creatinine is slowly improving. Continue bicarb drip. Continue serial labs. No indication for acute renal replacement currently. We will replace calcium. No evidence of uremic complications. No evidence of hydronephrosis or perinephric stranding or perinephric abscess on CT imaging. - Foleystrict I's and O's ENDO -random cortisol appropriate. Glycemic control per protocol. HEME - H&H stable, monitor routine CBC ID -gram-negative bacteremia (Klebsiella). Antibiogram shows sensitivity to Rocephin. Will transition antibiotics to Rocephin metronidazole for now. Anticipate 7-day course. LINES/IV ACCESS - Right IJ CVC, right radial A-line DVT PROPHYLAXIS - SCDs, Subcu heparin The patient is critically ill on vasopressor support. Significant probability of clinical decline and or . A total of 55 minutes in critical care time was spent in evaluation management and coordinating care of this patient including on multidisciplinary rounds and discussion with multiple consultants. Admission and Anticipated Discharge Date Admission Date: December 12, 2022 Subjective Patient seen and examined. EMR reviewed. Discussed on multidisciplinary rounds. The patient reports that she is feeling better this morning. She is tolerating ice chips without difficulty. Her norepinephrine has been weaned down but she remains on 2 vasopressors. Her blood cultures and urine culture largely resulted positive with Klebsiella. She denies any abdominal pain. No nausea or vomiting. Review of Systems Review of Systems: All systems reviewed & are unremarkable except as noted in Subjective Physical Exam Constitutional: WD/WN, vitals as above Neck: trachea midline, no thyromegaly Respiratory: normal respiratory effort, lungs clear to auscultation Cardiovascular: RRR, no murmur, no edema Gastrointestinal (Abdomen): normal bowel sounds, soft, nontender, no hepatosplenomegaly Musculoskeletal: Extremities: extremities normal to inspection Skin: no rashes, warm and dry Neurologic: Nonfocal exam Lymphatic: no cervical lymphadenopathy Results & Data Results & Data Vital Signs (Past 12 Hours) Vital Signs Temp Pulse Resp BP Pulse Ox O2 Del Method 12/13/22 09:47 Room Air 12/13/22 10:15 68 24 94 12/13/22 10:01 72 24 94 12/13/22 10:01 118/51 L 12/13/22 10:00 72 25 H 95 12/13/22 09:45 74 22 96 12/13/22 09:31 118/41 L 12/13/22 09:31 68 20 93 12/13/22 09:30 70 23 96 12/13/22 09:15 69 22 96 12/13/22 09:00 78 20 94 12/13/22 09:00 117/54 L 12/13/22 08:45 72 20 94 12/13/22 08:30 78 17 94 12/13/22 08:30 103/61 12/13/22 08:15 76 25 H 93 12/13/22 08:01 84/70 L 12/13/22 08:01 83 18 94 12/13/22 08:00 84 22 94 12/13/22 07:45 78 22 93 12/13/22 07:30 82 24 94 12/13/22 07:30 135/78 12/13/22 07:15 86 22 94 12/13/22 07:00 82 22 94 12/13/22 07:00 127/66 12/13/22 06:45 83 24 94 12/13/22 08:00 Room Air 12/13/22 08:00 36.8 C 12/13/22 08:00 89 12/13/22 08:00 89 12/13/22 06:31 89 21 123/59 L 94 12/13/22 06:00 92 H 24 124/56 L 95 12/13/22 05:30 130/71 12/13/22 05:30 94 H 25 H 94 12/13/22 05:00 93 H 24 93 12/13/22 05:00 118/62 12/13/22 04:31 101 H 29 H 128/57 L 94 Room Air 12/13/22 04:00 92 H 24 128/68 92 Room Air 12/13/22 03:30 36.9 C 92 H 26 H 120/66 92 Room Air 12/13/22 03:00 89 25 H 122/55 L 91 12/13/22 02:31 103 H 20 127/58 L 94 12/13/22 02:00 101 H 29 H 94 12/13/22 01:31 93 H 18 132/60 94 Room Air 12/13/22 04:00 93 H 120/49 L 12/13/22 00:00 89 12/13/22 01:00 36.5 C 94 H 16 120/69 98 Room Air 12/13/22 00:30 92 H 20 101/43 L 98 12/13/22 00:01 93 H 30 H 107/41 L 97 12/12/22 23:52 94 H 19 115/45 L 98 12/13/22 01:20 89 130/41 L Critical Care Results & Data Vital Signs (Past 12 Hours) Vital Signs Temp Pulse Resp BP Pulse Ox O2 Del Method 12/13/22 09:47 Room Air 12/13/22 10:15 68 24 94 12/13/22 10:01 72 24 94 12/13/22 10:01 118/51 L 12/13/22 10:00 72 25 H 95 12/13/22 09:45 74 22 96 12/13/22 09:31 118/41 L 12/13/22 09:31 68 20 93 12/13/22 09:30 70 23 96 12/13/22 09:15 69 22 96 12/13/22 09:00 78 20 94 12/13/22 09:00 117/54 L 12/13/22 08:45 72 20 94 12/13/22 08:30 78 17 94 12/13/22 08:30 103/61 12/13/22 08:15 76 25 H 93 12/13/22 08:01 84/70 L 12/13/22 08:01 83 18 94 12/13/22 08:00 84 22 94 12/13/22 07:45 78 22 93 12/13/22 07:30 82 24 94 12/13/22 07:30 135/78 12/13/22 07:15 86 22 94 12/13/22 07:00 82 22 94 12/13/22 07:00 127/66 12/13/22 06:45 83 24 94 12/13/22 08:00 Room Air 12/13/22 08:00 36.8 C 12/13/22 08:00 89 12/13/22 08:00 89 12/13/22 06:31 89 21 123/59 L 94 12/13/22 06:00 92 H 24 124/56 L 95 12/13/22 05:30 130/71 12/13/22 05:30 94 H 25 H 94 12/13/22 05:00 93 H 24 93 12/13/22 05:00 118/62 12/13/22 04:31 101 H 29 H 128/57 L 94 Room Air 12/13/22 04:00 92 H 24 128/68 92 Room Air 12/13/22 03:30 36.9 C 92 H 26 H 120/66 92 Room Air 12/13/22 03:00 89 25 H 122/55 L 91 12/13/22 02:31 103 H 20 127/58 L 94 12/13/22 02:00 101 H 29 H 94 12/13/22 01:31 93 H 18 132/60 94 Room Air 12/13/22 04:00 93 H 120/49 L 12/13/22 00:00 89 12/13/22 01:00 36.5 C 94 H 16 120/69 98 Room Air 07/20/23 00:30 92 H 20 101/43 L 98 12/13/22 00:01 93 H 30 H 107/41 L 97 12/12/22 23:52 94 H 19 115/45 L 98 12/13/22 01:20 89 130/41 L Lab & Micro Results (Past 24 Hours) RBC 3.22 M/uL (4.20-5.40) L 12/13/22 WBC 28.73 K/ul (4.8-10.8) H 12/13/22 Hgb 9.8 g/dl (12.0-16.0) L 12/13/22 Hct 27.4 % (37.0-47.0) L 12/13/22 MCV 85.1 fL (80.0-100.0) 12/13/22 MCH 30.4 pg (25.0-34.0) 12/13/22 MCHC 35.8 g/dL (32.0-36.0) 12/13/22 RDW Standard Deviation 43.8 fL (36.4-46.3) 12/13/22 RDW Coefficient of Variation 14.1 % (11.5-14.5) 12/13/22 Plt Count 248 K/uL (130-400) 12/13/22 MPV 11.7 fL (9.4-12.4) 12/13/22 Neutrophils (%) (Auto) 88.2 % 12/13/22 Lymphocytes (%) (Auto) 1.7 % 12/13/22 Monocytes # (Auto) 2.04 K/uL (0.11-0.59) H 12/13/22 Eosinophils # (Auto) 0.34 K/uL (0-0.50) 12/13/22 Immature Granulocyte % (Auto) 1.6 % 12/13/22 Neutrophils # (Auto) 25.36 K/uL (1.40-6.50) H 12/13/22 Lymphocytes # (Auto) 0.48 K/uL (1.2-3.4) L 12/13/22 Monocytes # (Auto) 2.04 K/uL (0.11-0.59) H 12/13/22 Eosinophils # (Auto) 0.34 K/uL (0-0.50) 12/13/22 Basophils # (Auto) 0.06 K/uL (0-0.2) 12/13/22 Immature Granulocyte # (Auto) 0.45 K/uL (0.01-0.20) H 12/13 Polychromasia 1+ 12/12/22 Echinocytes 2+ 12/13/22 Dohle Bodies 1+ 12/13/22 Na 125 mmol/L (136-145) L 12/13/22 K 4.7 mmol/L (3.5-5.1) 12/13/22 Cl 93 mmol/L (98-107) L 12/13/22 CO2 14 mmol/L (21-32) L 12/13/22 Anion Gap 18 (3-11) H 12/13/22 BUN 156 mg/dl (6-23) H 12/13/22 Creatinine 10.00 mg/dl (0.6-1.2) H* 12/13/22 Estimated GFR ( Amer) 4.1 ml/min 12/13/22 Estimated GFR (Non-Af Amer) 3.5 ml/min 12/13/22 BUN/Creatinine Ratio 15.6 (10-20) 12/13/22 Glu 250 mg/dl (70-99(Fasting)) H 12/13/22 Ca 8.1 mg/dl (8.6-10.3) L 12/13/22 Phosphorus Level 6.3 mg/dl (2.5-4.9) H 12/13/22 Total Bilirubin 0.9 mg/dl (0.2-1.0) 12/13/22 Direct Bilirubin 0.6 mg/dl (0-0.2) H 12/13/22 AST 45 U/L (13-39) H 12/13/22 ALT 26 U/L (7-52) 12/13/22 Alkaline Phosphatase 219 U/L (34-104) H 12/13/22 TP 6.0 gm/dl (6.0-8.3) 12/13/22 Albumin 2.7 gm/dl (3.4-5.0) L 12/13/22 Mg 1.6 mg/dl (1.7-2.4) L 12/13/22 05:25 Calcium Level 8.1 mg/dl (8.6-10.3) L 12/13/22 07:11 Prothromb Time International Ratio 1.1 (0.9-1.1) 12/12/22 19:2 7 Venous Blood pH 7.42 (7.36-7.41) H 12/13/22 11:39 Venous Blood Partial Pressure CO2 25 mmHg (38-50) L 12/13/22 11 :39 Venous Blood Partial Pressure O2 84 mmHg 12/13/22 11:39 Venous Blood HCO3 16 mmol/L 12/13/22 11:39 Venous Blood Base Excess -7.0 mEq/L 12/13/22 11:39 Venous Blood Oxygen Saturation 98.5 % 12/13/22 11:39 Microbiology 12/12/22 19:46 Aerobic Blood Culture - Preliminary Blood Gram negative bacilli Anaerobic Blood Culture - Preliminary Gram negative bacilli 12/12/22 19:27 Aerobic Blood Culture - Preliminary Blood Gram negative bacilli Anaerobic Blood Culture - Preliminary Gram negative bacilli 12/12/22 20:33 Urine Culture - Preliminary Urine,Clean Catch Gram negative bacilli Diagnostic Findings (Past 24 Hours) Chest X-Ray 12/12/22 19:19 XR chest 1V portable CLINICAL HISTORY: Sepsis TECHNIQUE: Single frontal radiograph of the chest was obtained. Comparison: Comparison is made to chest radiograph 09/14/2021 FINDINGS: No lines and tubes are seen. The cardiomediastinal silhouette is normal. The lungs are clear. No evidence of pleural effusion or pneumothorax. IMPRESSION: No acute abnormalities and in particular no radiographic evidence of pneumonia. ACT 112: Negative or not required by law. Electronically signed by: Liban Jessica M.D. 12/13/2022 6:42 AM Abdomen/Pelvis CT 12/12/22 19:21 Exam(s): CT ABDOMEN + PELVIS Without Contrast EXAM: CT Abdomen and Pelvis Without Intravenous Contrast CLINICAL HISTORY: Reason for exam: abd apin. TECHNIQUE: Axial computed tomography images of the abdomen and pelvis without intravenous contrast. CTDI is 28.14 mGy and DLP is 1415.4 mGy-cm. Automated exposure control was utilized for the study. A dose lowering technique was utilized adhering to the principles of ALARA. COMPARISON: No relevant prior studies available. FINDINGS: Lung bases: Unremarkable. No mass. No consolidation. ABDOMEN: Liver: Unremarkable. Gallbladder and bile ducts: Cholecystectomy clips. No ductal dilation. Pancreas: Unremarkable. No ductal dilation. Spleen: Unremarkable. No splenomegaly. Adrenals: Unremarkable. No mass. Kidneys and ureters: Unremarkable. No hydronephrosis or nephrolithiasis. Stomach and bowel: Circumferential wall thickening of the descending and sigmoid colon, with mild pericolonic fat stranding, consistent with mild colitis. No obstruction. PELVIS: Appendix: No findings to suggest acute appendicitis. Bladder: Decompressed urinary bladder. No stones. Reproductive: Unremarkable as visualized. ABDOMEN and PELVIS: Intraperitoneal space: Unremarkable. No free air. No significant fluid collection. Bones/joints: Degenerative changes of the spine. No acute fracture. No dislocation. Soft tissues: Unremarkable. Vasculature: Atherosclerotic changes of the aorta. No abdominal aortic aneurysm. Lymph nodes: Unremarkable. No enlarged lymph nodes. IMPRESSION: Circumferential wall thickening of the descending and sigmoid colon, with mild pericolonic fat stranding, consistent with mild colitis. Electronically signed by: Cezar Hansen MD 12/12/22 20:14 PM Chest X-Ray 12/12/22 23:57 XR chest 1V portable CLINICAL HISTORY: new central line R IJ placement TECHNIQUE: Single frontal radiograph of the chest was obtained. Comparison: Comparison is made to chest radiograph 12/12/2022 FINDINGS: Right sided venous catheter terminates in the lower SVC. The cardiomediastinal silhouette is normal. The lungs are clear. No evidence of pleural effusion or pneumothorax. IMPRESSION: Satisfactory position of right central line without evidence of pneumothorax. ACT 112: Negative or not required by law. Electronically signed by: Liban Jessica M.D. 12/13/2022 6:58 AM I & O Totals 24 Hours 12/12/22 12/13/22 12/14/22 06:59 06:59 06:59 Intake Total 3761.135 / 3761.135 2691.858 / 2691.858 Output Total 2250 / 2250 1300 / 1300 Balance 1511.135 / 4921.972 0879.858 / 1391.858 Cumulative 12/12/22 18:57 thru 12/13/22 10:15 Intake Total 6452.993 Output Total 3550 Balance 2902.993 RT Ventilator Mngmt (Last Documented) Ventilator Ordered Settings Respiratory Rate 24 12/13/22 10:15 Ventilator - PT Measurements Respiratory Rate 24 Coding Level of Care Code 38246 CRITICAL CARE 1ST 30-74M Diagnoses Septic shock A41.9; R65.21 DAVONTE (acute kidney injury) N17.9 Severe sepsis A41.9; R65.20 Metabolic acidosis E87.20 Bacteremia due to Klebsiella pneumoniae R78.81; B96.1 Pyelonephritis N12
[2022-12-13 11:50] LABS: HCO3 VBG 16 mmol/L; Oxygen Saturation VBG 98.5 %; PCO2 VBG 25 mmHg (38-50); PO2 VBG 84 mmHg; pH VBG 7.42 (7.36-7.41)
--- NOTE | 2022-12-13 11:59 | Hospitalist Progress Note ---
Date of Service December 13, 2022 Assessment & Plan (1) Severe sepsis: Plan: 72-year-old female past medical history significant for type 2 diabetes, on long-term insulin, iron metabolism disease, diabetic retinopathy, hyperlipidemia, moderate persistent asthma, obstructive sleep apnea does not tolerate BiPAP nocturnal oxygen 3 to 4 L, hypertension, pulmonary hypertension, PVCs, irritable bowel syndrome, GERD, chronic kidney disease stage III, restless leg syndrome, medical marijuana use, depression, KARI, PTSD, panic disorder, history of COVID, presents with diarrhea going on for 1 week and found to have severe sepsis, DAVONTE, hyperkalemia, hyponatremia and metabolic acidosis. Septic shock Urosepsis Hypotension and elevated lactic acid 2.7 Leukocytosis present Urinalysis suggestive of infection Blood culture positive for Klebsiella pneumoniae on PCR Continue hemodynamic support with vasopressors, IV fluids. Currently on ceftriaxone and Flagyl. Await sensitivities on blood culture Repeat blood culture tomorrow a.m. Rest of care per ICU DAVONTE Hyponatremia Hyperkalemia Metabolic acidosis DAVONTE likely due to septic shock Resulting in hyponatremia, hyperkalemia and metabolic acidosis Urine output reassuring Presented to creatinine of 13.3 Baseline creatinine 0.8-1 Currently on bicarb drip; continue till acidosis resolved. Nephrology on board Close monitoring of serum sodium and potassium level Elevated troponin likely due to demand ischemia from septic shock High-sensitivity troponin elevated Mostly from DAVONTE and demand ischemia from sepsis Diarrhea Decreased appetite We will follow stool studies CT abdomen and pelvis reviewed; consistent with colitis. -Consider consult GI We will monitor the hemodynamics Possible side effect of Ozempic increased dose. Type II diabetes Patient states this takes 8o units of long-acting insulin the morning and and as needed short-acting She is also on Ozempic Currently we will place on insulin sliding scale Consult pharmacy. We will follow HbA1c levels and blood sugars. Obstructive sleep apnea Does not tolerate BiPAP On oxygen 3 to 4 L nightly Restless leg syndrome On pramipexole which is on hold for now Hypertension Holding lisinopril metoprolol and Lasix as patient currently having DAVONTE and hypotension. Insomnia On clonidine nightly which we will hold for hypotension. Hyperlipidemia Currently on hold due to elevated CK. Irritable bowel syndrome Hold home medications for now History of asthma Continue home inhalers and nebs as needed GERD Will place on IV. Pepcid DVT prophylaxis Heparin subcu Disposition Close monitoring ICU Full code Time spent evaluating patient, direct bedside care, chart review, placing orders, interpretation of diagnostic studies, discussion with consultants, patient, and family members, as well as other required patient management activities is 60 minutes. Please note the above document was generated using voice recognition software. It may contain grammatical, syntax or spelling errors. Any formal questions or concerns about the content, text or information contained within the body of this dictation should be directly addressed to the provider for clarification (2) DAVONTE (acute kidney injury): (3) Hyponatremia: (4) Metabolic acidosis: (5) Diarrhea: Admission and Anticipated Discharge Date Admission Date: December 12, 2022 Subjective Patient seen and examined at bedside. She is lying in the bed; reports that she is feeling better compared to yesterday. She is alert oriented x3. Urine output assuring. Currently on norepinephrine and vasopressin. Review of Systems Review of Systems: All systems reviewed & are unremarkable except as noted in Subjective Physical Exam Physical Exam: Constitutional: Awake, alert orient x3. Not in any distress Respiratory: Bilateral vesicular breath sound Cardiovascular: RRR, no murmur, no edema Vessels: no JVD or carotid bruit Chest: normal inspection of chest Abdomen: normal bowel sounds, soft, nontender, no hepatosplenomegaly. Schaefer in place draining clear urine. Musculoskeletal: no cyanosis or clubbing, extremities motor strength 5/5 Skin: no rashes, warm and dry normal turgor Neurologic: PERRL, EOMI, accommodation nl, no face palsy, no dysarthria CN's II- XI intact bilaterally and moves all extremities Psychiatric: A+Ox3, euthymic affect Results & Data Results & Data Vital Signs (Past 12 Hours) Vital Signs Temp Pulse Resp BP Pulse Ox O2 Del Method 12/13/22 09:47 Room Air 12/13/22 10:15 68 24 94 12/13/22 10:01 72 24 94 12/13/22 10:01 118/51 L 12/13/22 10:00 72 25 H 95 12/13/22 09:45 74 22 96 12/13/22 09:31 118/41 L 12/13/22 09:31 68 20 93 12/13/22 09:30 70 23 96 12/13/22 09:15 69 22 96 12/13/22 09:00 78 20 94 12/13/22 09:00 117/54 L 12/13/22 08:45 72 20 94 12/13/22 08:30 78 17 94 12/13/22 08:30 103/61 12/13/22 08:15 76 25 H 93 12/13/22 08:01 84/70 L 12/13/22 08:01 83 18 94 12/13/22 08:00 84 22 94 12/13/22 07:45 78 22 93 12/13/22 07:30 82 24 94 12/13/22 07:30 135/78 12/13/22 07:15 86 22 94 12/13/22 07:00 82 22 94 12/13/22 07:00 127/66 12/13/22 06:45 83 24 94 12/13/22 08:00 Room Air 12/13/22 08:00 36.8 C 12/13/22 08:00 89 12/13/22 08:00 89 12/13/22 06:31 89 21 123/59 L 94 12/13/22 06:00 92 H 24 124/56 L 95 12/13/22 05:30 130/71 12/13/22 05:30 94 H 25 H 94 12/13/22 05:00 93 H 24 93 12/13/22 05:00 118/62 12/13/22 04:31 101 H 29 H 128/57 L 94 Room Air 12/13/22 04:00 92 H 24 128/68 92 Room Air 12/13/22 03:30 36.9 C 92 H 26 H 120/66 92 Room Air 12/13/22 03:00 89 25 H 122/55 L 91 12/13/22 02:31 103 H 20 127/58 L 94 12/13/22 02:00 101 H 29 H 94 12/13/22 01:31 93 H 18 132/60 94 Room Air 12/13/22 04:00 93 H 120/49 L 12/13/22 00:00 89 12/13/22 01:00 36.5 C 94 H 16 120/69 98 Room Air 12/13/22 00:30 92 H 20 101/43 L 98 12/13/22 00:01 93 H 30 H 107/41 L 97 12/13/22 01:20 89 130/41 L Laboratory Results Laboratory Results WBC 28.73 K/ul (4.8-10.8) H 12/13/22 05:25 RBC 3.22 M/uL (4.20-5.40) L 12/13/22 05:25 Hgb 9.8 g/dl (12.0-16.0) L 12/13/22 05:25 Hct 27.4 % (37.0-47.0) L 12/13/22 05:25 MCV 85.1 fL (80.0-100.0) 12/13/22 05:25 MCH 30.4 pg (25.0-34.0) 12/13/22 05:25 MCHC 35.8 g/dL (32.0-36.0) 12/13/22 05:25 RDW Std Deviation 43.8 fL (36.4-46.3) 12/13/22 05:25 RDW Coeff of Pérez 14.1 % (11.5-14.5) 12/13/22 05:25 Plt Count 248 K/uL (130-400) 12/13/22 05:25 MPV 11.7 fL (9.4-12.4) 12/13/22 05:25 Immature Gran % (Auto) 1.6 % 12/13/22 05:25 Neut % (Auto) 88.2 % 12/13/22 05:25 Lymph % (Auto) 1.7 % 12/13/22 05:25 Rich % (Auto) 7.1 % 12/13/22 05:25 Eos % (Auto) 1.2 % 12/13/22 05:25 Baso % (Auto) 0.2 % 12/13/22 05:25 Neut # (Auto) 25.36 K/uL (1.40-6.50) H 12/13/22 05:25 Lymph # (Auto) 0.48 K/uL (1.2-3.4) L 12/13/22 05:25 Rich # (Auto) 2.04 K/uL (0.11-0.59) H 12/13/22 05:25 Eos # (Auto) 0.34 K/uL (0-0.50) 12/13/22 05:25 Baso # (Auto) 0.06 K/uL (0-0.2) 12/13/22 05:25 Immature Gran # (Auto) 0.45 K/uL (0.01-0.20) H 12/13/22 05:25 Dohle Bodies 1+ 12/13/22 05:25 Polychromasia 1+ 12/12/22 19:27 Echinocytes 2+ 12/13/22 05:25 PT 11.9 Seconds (9.0-12.0) 12/12/22 19: INR 1.1 (0.9-1.1) 12/12/22 19: APTT 24.2 Seconds (21.0-31.0) 12/12/22 19: PTT Ratio 0.9 12/12/22 19:27 VBG pH 7.42 (7.36-7.41) H 12/13/22 11:39 VBG pCO2 25 mmHg (38-50) L 12/13/22 11:39 VBG pO2 84 mmHg 12/13/22 11:39 VBG HCO3 16 mmol/L 12/13/22 11:39 VBG O2 Saturation 98.5 % 12/13/22 11:39 VBG Base Excess -7.0 mEq/L 12/13/22 11:39 Sodium 125 mmol/L (136-145) L 12/13/22 07:11 Potassium 4.7 mmol/L (3.5-5.1) 12/13/22 07:11 Chloride 93 mmol/L (98-107) L 12/13/22 07:11 Carbon Dioxide 14 mmol/L (21-32) L 12/13/22 07:11 Anion Gap 18 (3-11) H 12/13/22 07:11 BUN 156 mg/dl (6-23) H 12/13/22 07:11 Creatinine 10.00 mg/dl (0.6-1.2) H* D 12/13/22 07:11 Est Cr Clr Drug Dosing 6.7 ml/min 12/13/22 07:11 Est GFR ( Amer) 4.1 ml/min 12/13/22 07:11 Est GFR (Non-Af Amer) 3.5 ml/min 12/13/22 07:11 BUN/Creatinine Ratio 15.6 (10-20) 12/13/22 07:11 Glucose 250 mg/dl (70-99(Fasting)) H 12/13/22 07:11 POC Glucose 183 mg/dl (70-99) H 12/12/22 22:57 POC Glucose (other) 250 mg/dl (70-99) H 12/13/22 07:25 Estimat Average Glucose 137 mg/dl 12/13/22 05:25 Hemoglobin A1c 6.4 % (4.5-5.6) H 12/13/22 05:25 Lactate 1.3 mmol/L (0.4-2.0) 12/13/22 00:27 Calcium 8.1 mg/dl (8.6-10.3) L 12/13/22 07:11 Phosphorus 6.3 mg/dl (2.5-4.9) H 12/13/22 05:25 Magnesium 1.6 mg/dl (1.7-2.4) L 12/13/22 05:25 Total Bilirubin 0.9 mg/dl (0.2-1.0) 12/13/22 05:25 Direct Bilirubin 0.6 mg/dl (0-0.2) H 12/13/22 05:25 AST 45 U/L (13-39) H 12/13/22 05:25 ALT 26 U/L (7-52) 12/13/22 05:25 Alkaline Phosphatase 219 U/L (34-104) H 12/13/22 05:25 Total Creatine Kinase 721 U/L (26-192) H 12/12/22 19:27 Troponin I High Sens 93.4 pg/ml (0-14) H* 12/13/22 05:25 Total Protein 6.0 gm/dl (6.0-8.3) 12/13/22 05:25 Albumin 2.7 gm/dl (3.4-5.0) L 12/13/22 05:25 Lipase 187 U/L (11-82) H 12/12/22 19:27 Procalcitonin 14.61 ng/ml (0-0.5) H 12/12/22 19:27 Random Cortisol 31.95 mcg/dl 12/13/22 00:23 Urine Color Dark Yellow 12/12/22 20:33 Urine Appearance Turbid (Clear) A 12/12/22 20:33 Urine pH 7.0 (4.5-7.5) 12/12/22 20:33 Ur Specific [place] 1.016 (1.000-1.030) 12/12/22 20:33 Urine Protein 3+ (Negative) H 12/12/22 20:33 Urine Glucose (UA) Negative (Negative) 12/12/22 20:33 Urine Ketones Negative (Negative) 12/12/22 20:33 Urine Blood 3+ (Negative) H 12/12/22 20:33 Urine Nitrite Negative (Negative) 12/12/22 20:33 Urine Bilirubin Negative (Negative) 12/12/22 20:33 Urine Urobilinogen Negative (Negative) 12/12/22 20:33 Ur Leukocyte Esterase 3+ (Negative) H 12/12/22 20:33 Urine WBC (Auto) >30 /hpf (0-5) H 12/12/22 20:33 Urine RBC (Auto) 10-30 /hpf (0-4) H 12/12/22 20:33 U Hyaline Cast (Auto) 0 /lpf (0-5) 12/12/22 20:33 U Epithel Cells (Auto) >30 /lpf (0-5) H 12/12/22 20:33 Urine Bacteria (Auto) 4+ (Negative) H 12/12/22 20:33 Ur Renal Epithelial Cell 10-20 /lpf (0-5) H 12/12/22 20:33 Urine Yeast Not Reportable 12/12/22 20:33 Nasal Screen MRSA (PCR) Positive (Negative) A 12/12/22 23:00 Adenovirus (PCR) Not Detected (NotDetected) 12/12/22 19:27 B. pertussis DNA (PCR) Not Detected (NotDetected) 12/12/22 19:27 B.parapertussis DNA PCR Not Detected (NotDetected) 12/12/22 19:27 C. pneumoniae DNA (PCR) Not Detected (NotDetected) 12/12/22 19:27 Coronavirus OC43 (PCR) Not Detected (NotDetected) 12/12/22 19:27 Coronavirus HKU1 (PCR) Not Detected (NotDetected) 12/12/22 19:27 Coronavirus 229E (PCR) Not Detected (NotDetected) 12/12/22 19:27 SARS-CoV-2 (PCR) Not Detected (NotDetected) 12/12/22 19:27 Coronavirus NL63 (PCR) Not Detected (NotDetected) 12/12/22 19:27 Enterobacterales (PCR) DETECTED (NotDetected) A 12/12/22 19:27 Human Metapneumovir PCR Not Detected (NotDetected) 12/12/22 19:27 Influenza Type A (PCR) Not Detected (NotDetected) 12/12/22 19:27 Influenza Type B (PCR) Not Detected (NotDetected) 12/12/22 19:27 K. pneumoniae group (PCR) DETECTED (NotDetected) A 12/12/22 19:27 M. pneumoniae (PCR) Not Detected (NotDetected) 12/12/22 19:27 Parainfluenza 1 (PCR) Not Detected (NotDetected) 12/12/22 19:27 Parainfluenza 2 (PCR) Not Detected (NotDetected) 12/12/22 19:27 Parainfluenza 3 (PCR) Not Detected (NotDetected) 12/12/22 19:27 Parainfluenza 4 (PCR) Not Detected (NotDetected) 12/12/22 19:27 RSV (PCR) Not Detected (NotDetected) 12/12/22 19:27 Entero/Rhino (PCR) Not Detected (NotDetected) 12/12/22 19:27 mcr-1 Colistin Res Gene PCR Not Detected (NotDetected) 12/12/22 19:27 blaIMP Car res Gene PCR Not Detected (NotDetected) 12/12/22 19:27 KPC-Carbap Res Gene PCR Not Detected (NotDetected) 12/12/22 19:27 blaNDM Car Res Gene PCR Not Detected (NotDetected) 12/12/22 19:27 OXA-48 Carbapenem Resis Gene (PCR) Not Detected (NotDetected) 12/12/22 19: 27 blaVIM Car Res Gene PCR Not Detected (NotDetected) 12/12/22 19:27 CTX-M Gene Resistance (PCR) Not Detected (NotDetected) 12/12/22 19:27 Bld Cult ID Panel PCR See PCR Comment (NotDetected) 12/12/22 19:27 Impressions Abdomen/Pelvis CT 12/12/22 19:21 Exam(s): CT ABDOMEN + PELVIS Without Contrast EXAM: CT Abdomen and Pelvis Without Intravenous Contrast CLINICAL HISTORY: Reason for exam: abd apin. TECHNIQUE: Axial computed tomography images of the abdomen and pelvis without intravenous contrast. CTDI is 28.14 mGy and DLP is 1415.4 mGy-cm. Automated exposure control was utilized for the study. A dose lowering technique was utilized adhering to the principles of ALARA. COMPARISON: No relevant prior studies available. FINDINGS: Lung bases: Unremarkable. No mass. No consolidation. ABDOMEN: Liver: Unremarkable. Gallbladder and bile ducts: Cholecystectomy clips. No ductal dilation. Pancreas: Unremarkable. No ductal dilation. Spleen: Unremarkable. No splenomegaly. Adrenals: Unremarkable. No mass. Kidneys and ureters: Unremarkable. No hydronephrosis or nephrolithiasis. Stomach and bowel: Circumferential wall thickening of the descending and sigmoid colon, with mild pericolonic fat stranding, consistent with mild colitis. No obstruction. PELVIS: Appendix: No findings to suggest acute appendicitis. Bladder: Decompressed urinary bladder. No stones. Reproductive: Unremarkable as visualized. ABDOMEN and PELVIS: Intraperitoneal space: Unremarkable. No free air. No significant fluid collection. Bones/joints: Degenerative changes of the spine. No acute fracture. No dislocation. Soft tissues: Unremarkable. Vasculature: Atherosclerotic changes of the aorta. No abdominal aortic aneurysm. Lymph nodes: Unremarkable. No enlarged lymph nodes. IMPRESSION: Circumferential wall thickening of the descending and sigmoid colon, with mild pericolonic fat stranding, consistent with mild colitis. Electronically signed by: Cezar Hansen MD 12/12/22 20:14 PM Chest X-Ray 12/12/22 23:57 XR chest 1V portable CLINICAL HISTORY: new central line R IJ placement TECHNIQUE: Single frontal radiograph of the chest was obtained. Comparison: Comparison is made to chest radiograph 12/12/2022 FINDINGS: Right sided venous catheter terminates in the lower SVC. The cardiomediastinal silhouette is normal. The lungs are clear. No evidence of pleural effusion or pneumothorax. IMPRESSION: Satisfactory position of right central line without evidence of pneumothorax. ACT 112: Negative or not required by law. Electronically signed by: Liban Jessica M.D. 12/13/2022 6:58 AM
[2022-12-13 12:33] LABS: BUN Creatinine Ratio 16.5 (10-20); Calcium 8.2 mg/dl (8.6-10.3); Creatinine Clr Calc Pharmacy 7.4 ml/min; Est GFR (African American) 4.5 ml/min; Est GFR (Non-African American) 3.9 ml/min; Potassium 4.6 mmol/L (3.5-5.1)
[2022-12-13] MEDS: metroNIDAZOLE 500 MG/100 ML BAG IV SCH ×2 (14:04→22:17)
--- NOTE | 2022-12-13 14:32 | Electrocardiogram Report ---
Test Reason : Blood Pressure : / mmHG Vent. Rate : 073 BPM Atrial Rate : 073 BPM P-R Int : 172 ms QRS Dur : 094 ms QT Int : 338 ms P-R-T Axes : 034 -08 009 degrees QTc Int : 372 ms Normal sinus rhythm Inferior infarct , age undetermined Poor R wave progression, consider anterior GA vs. lead placement vs. LVH Abnormal ECG When compared with ECG of 19-SEP-2021 13:23, T wave inversion now evident in Inferior leads Confirmed by Lasha Adair ([id number]) on 12/13/2022 2:32:21 PM Referred By: REFERRED SELF Confirmed By:Gera Adair
[2022-12-13 15:37] LABS: Base Excess VBG -4.9 mEq/L; HCO3 VBG 18 mmol/L; Oxygen Saturation VBG > 100.0 %; PCO2 VBG 26 mmHg (38-50); PO2 VBG 95 mmHg; pH VBG 7.44 (7.36-7.41)
[2022-12-13 16:00] LABS: Calcium 8.9 mg/dl (8.6-10.3); Creatinine Clr Calc Pharmacy 7.9 ml/min; Est GFR (African American) 4.9 ml/min; Est GFR (Non-African American) 4.2 ml/min; Potassium 4.4 mmol/L (3.5-5.1)
[2022-12-13 16:14] LABS: BUN Creatinine Ratio 16.8 (10-20)
[2022-12-13] MEDS: cefTRIAXone SODIUM 2,000 MG in DEXTROSE 5% 50 ML IV SCH (16:19)
[2022-12-13] MEDS: ACETAMINOPHEN 325 MG TAB PO PRN (17:00)
[2022-12-13] MEDS: SODIUM CHLORIDE 0.9% 1000ML 1,000 ML IV SCH (19:41)
[2022-12-13 19:55] LABS: Calcium 8.8 mg/dl (8.6-10.3); Creatinine Clr Calc Pharmacy 7.8 ml/min; Est GFR (African American) 4.9 ml/min; Est GFR (Non-African American) 4.2 ml/min; Potassium 3.8 mmol/L (3.5-5.1)
[2022-12-13 20:03] LABS: Troponin I High Sensitivity 146.2 pg/ml (0-14)
[2022-12-13] MEDS: POTASSIUM CHLORIDE / WTR 10 MEQ/100 ML PLCT IV SCH ×2 (22:17→23:18)
[2022-12-13 23:30] LABS: Base Excess VBG -1.5 mEq/L; HCO3 VBG 21 mmol/L; Oxygen Saturation VBG 98.3 %; PCO2 VBG 29 mmHg (38-50); PO2 VBG 81 mmHg; pH VBG 7.47 (7.36-7.41)
[2022-12-14 00:21] LABS: BUN Creatinine Ratio 16.4 (10-20); Calcium 8.7 mg/dl (8.6-10.3); Creatinine Clr Calc Pharmacy 8.1 ml/min; Est GFR (African American) 5.1 ml/min; Est GFR (Non-African American) 4.4 ml/min; Potassium 3.8 mmol/L (3.5-5.1)
[2022-12-14] MEDS ORDERED: POTASSIUM CHLORIDE CRTAB 20 MEQ TABCR PO STA (00:37)
[2022-12-14] MEDS: SODIUM CHLORIDE 0.9% 1000ML 1,000 ML IV SCH ×3 (03:47→19:02)
[2022-12-14] MEDS: INSULIN ASPART PER UNIT CHARGE SC SCH ×5 (04:28→20:14)
[2022-12-14] MEDS: metroNIDAZOLE 500 MG/100 ML BAG IV SCH ×3 (04:45→22:56)
[2022-12-14] MEDS: HEPARIN SOD 5,000 UNIT/0.5 ML VIAL SQ SCH ×3 (04:46→22:56)
[2022-12-14 05:09] LABS: Albumin Level 2.9 gm/dl (3.4-5.0); Bilirubin Direct 0.4 mg/dl (0-0.2); Bilirubin,Total 0.9 mg/dl (0.2-1.0); Magnesium 1.8 mg/dl (1.7-2.4); Phosphorus 6.6 mg/dl (2.5-4.9)
[2022-12-14 05:12] LABS: Basophils # (auto) 0.03 K/uL (0-0.2); Basophils % (auto) 0.2 %; Eosinophils # (auto) 0.02 K/uL (0-0.50); Eosinophils % (auto) 0.1 %; Hematocrit (blood only) 23.4 % (37.0-47.0); Hemoglobin 8.6 g/dl (12.0-16.0); Immature Granulocytes # (auto) 0.12 K/uL (0.01-0.20); Immature Granulocytes % (auto) 0.8 %; Lymphocytes # (auto) 0.52 K/uL (1.2-3.4); Lymphocytes % (auto) 3.6 %; Mean Corpuscular Hemoglobin 30.7 pg (25.0-34.0); Mean Corpuscular Hgb Conc 36.8 g/dL (32.0-36.0); Mean Corpuscular Volume 83.6 fL (80.0-100.0); Monocytes # (auto) 1.35 K/uL (0.11-0.59); Monocytes % (auto) 9.4 %; Neutrophils # (auto) 12.29 K/uL (1.40-6.50); Neutrophils % (auto) 85.9 %; Platelet Count 182 K/uL (130-400); RDW Coefficient of Variation 13.6 % (11.5-14.5); RDW Standard Deviation 41.5 fL (36.4-46.3); White Blood Count 14.33 K/ul (4.8-10.8)
[2022-12-14] MEDS: NOREPINEPHRINE/D5W 4 MG/250 ML PLCT IV SCH (06:24)
[2022-12-14] MEDS: MAGNESIUM SULFATE / D5W 1 GM/100 ML BAG IV SCH ×2 (06:40→08:44)
[2022-12-14 07:32] LABS: BUN Creatinine Ratio 16.7 (10-20); Calcium 8.4 mg/dl (8.6-10.3); Creatinine Clr Calc Pharmacy 9.4 ml/min; Est GFR (Non-African American) 5.2 ml/min; Potassium 3.5 mmol/L (3.5-5.1)
--- NOTE | 2022-12-14 07:50 | Critical Care Progress Note ---
Date of Service December 14, 2022 Assessment & Plan (1) Septic shock: (2) DAVONTE (acute kidney injury): (3) Severe sepsis: (4) Metabolic acidosis: (5) Bacteremia due to Klebsiella pneumoniae: (6) Pyelonephritis: Plan Reason Critically Ill: 72-year-old female with extensive past medical history presents to the ICU with gram-negative bacteremia (Klebsiella) likely from a urinary source with severe sepsis and severe septic shock in acute renal failure 24-hour events: Vasopressin weaned off. Cultures resulted with sensitive Klebsiella. Patient feels better and wants to get out of bed. She is requesting BALWINDER Recommendations Neuro -no current issues. Holding outpatient anxiolytic and antidepressant medications. Cardiac -severe sepsis with septic shock due to Klebsiella bacteremia. Echo reviewed and unremarkable. Troponin trivially elevated due to supply/demand mismatch. Now off vasopressin. Will place on low-dose oral midodrine to see if we can get her off norepinephrine. Respiratory -history of sleep disordered breathing and asthma. Continue Breo inhaler. Not bronchospastic. Minimal oxygen requirement currently. Wean as tolerated to defend oxygen saturations greater than or equal to 90% GI -antecedent history of diarrhea. CT scan showed some evidence of colitis. Continue metronidazole and supportive care. Keep on clear liquids for now. Advance diet to liquids and follow. RENAL/LYTES -acute renal failure, likely secondary to hypovolemia and acute ATN. Serum creatinine is slowly improving. Off bicarb drip. Continue serial labs. No indication for acute renal replacement currently. No evidence of uremic complications. No evidence of hydronephrosis or perinephric stranding or perinephric abscess on CT imaging. - Foleystrict I's and O's ENDO -random cortisol appropriate. Glycemic control per protocol. HEME - H&H stable, monitor routine CBC ID -gram-negative bacteremia (Klebsiella). Antibiogram shows sensitivity to Rocephin. Check surveillance cultures today. D#3/7 rocephin/flagyl LINES/IV ACCESS - Right IJ CVC, right radial A-line DVT PROPHYLAXIS - SCDs, Subcu heparin The patient is critically ill on vasopressor support. Significant probability of clinical decline and or . A total of 45 minutes in critical care time was spent in evaluation management and coordinating care of this patient including on multidisciplinary rounds and discussion with multiple consultants. Admission and Anticipated Discharge Date Admission Date: December 12, 2022 Subjective Patient seen and examined. EMR reviewed. The patient is awake alert and conversant this morning. She states she feels better. Her abdominal discomfort is resolved. She is tolerating ice chips. Vasopressin's been weaned off. She is on a low-dose of norepinephrine but so far we have been unable to successfully wean it off. She is not experiencing any chest pain or palpitations. No shortness of breath. She overall feels significantly improved Review of Systems Review of Systems: All systems reviewed & are unremarkable except as noted in Subjective Physical Exam Constitutional: WD/WN, vitals as above Neck: trachea midline, no thyromegaly Respiratory: normal respiratory effort, lungs clear to auscultation Cardiovascular: RRR, no murmur, no edema Gastrointestinal (Abdomen): normal bowel sounds, soft, nontender, no hepatosplenomegaly Musculoskeletal: Extremities: extremities normal to inspection Skin: no rashes, warm and dry Lymphatic: no cervical lymphadenopathy Results & Data Results & Data Vital Signs (Past 12 Hours) Vital Signs Temp Pulse Pulse Resp BP Pulse Ox O2 Del Method 12/14/22 06:00 83 21 105/42 L 94 12/14/22 05:30 88 14 118/50 L 94 12/14/22 05:00 90 22 125/51 L 93 12/14/22 05:00 125/51 L 12/14/22 04:30 88 22 135/56 L 94 12/14/22 04:00 84 24 122/54 L 92 12/14/22 03:30 87 22 115/46 L 92 12/14/22 03:00 88 20 107/45 L 95 12/14/22 02:30 85 24 106/48 L 94 12/14/22 02:00 83 21 105/41 L 95 12/14/22 01:30 84 21 95/42 L 96 12/14/22 01:01 85 22 107/51 L 98 12/14/22 00:30 88 18 91/46 L 98 12/14/22 00:00 91 H 24 103/70 96 12/13/22 23:32 78 21 83/32 L 97 12/13/22 23:30 81 17 113/36 L 95 12/14/22 01:00 75 12/13/22 23:42 78 16 96 Room Air 12/13/22 23:00 75 20 113/36 L 94 12/13/22 22:30 74 19 97 12/13/22 22:24 73 21 106/60 97 12/13/22 22:00 69 15 96 12/13/22 21:30 77 17 95 12/13/22 23:09 37.0 C 12/13/22 21:00 75 19 95 12/13/22 20:00 74 21 96 Critical Care Results & Data Vital Signs (Past 12 Hours) Vital Signs Temp Pulse Pulse Resp BP Pulse Ox O2 Del Method 12/14/22 06:00 83 21 105/42 L 94 12/14/22 05:30 88 14 118/50 L 94 12/14/22 05:00 90 22 125/51 L 93 12/14/22 05:00 125/51 L 12/14/22 04:30 88 22 135/56 L 94 12/14/22 04:00 84 24 122/54 L 92 12/14/22 03:30 87 22 115/46 L 92 12/14/22 03:00 88 20 107/45 L 95 12/14/22 02:30 85 24 106/48 L 94 12/14/22 02:00 83 21 105/41 L 95 12/14/22 01:30 84 21 95/42 L 96 12/14/22 01:01 85 22 107/51 L 98 12/14/22 00:30 88 18 91/46 L 98 12/14/22 00:00 91 H 24 103/70 96 12/13/22 23:32 78 21 83/32 L 97 12/13/22 23:30 81 17 113/36 L 95 12/14/22 01:00 75 12/13/22 23:42 78 16 96 Room Air 12/13/22 23:00 75 20 113/36 L 94 12/13/22 22:30 74 19 97 12/13/22 22:24 73 21 106/60 97 12/13/22 22:00 69 15 96 12/13/22 21:30 77 17 95 12/13/22 23:09 37.0 C 12/13/22 21:00 75 19 95 12/13/22 20:00 74 21 96 Lab & Micro Results (Past 24 Hours) RBC 2.80 M/uL (4.20-5.40) L 12/14/22 WBC 14.33 K/ul (4.8-10.8) H 12/14/22 Hgb 8.6 g/dl (12.0-16.0) L 12/14/22 Hct 23.4 % (37.0-47.0) L 12/14/22 MCV 83.6 fL (80.0-100.0) 12/14/22 MCH 30.7 pg (25.0-34.0) 12/14/22 MCHC 36.8 g/dL (32.0-36.0) H 12/14/22 RDW Standard Deviation 41.5 fL (36.4-46.3) 12/14/22 RDW Coefficient of Variation 13.6 % (11.5-14.5) 12/14/22 Plt Count 182 K/uL (130-400) 12/14/22 MPV 12.0 fL (9.4-12.4) 12/14/22 Neutrophils (%) (Auto) 85.9 % 12/14/22 Lymphocytes (%) (Auto) 3.6 % 12/14/22 Monocytes # (Auto) 1.35 K/uL (0.11-0.59) H 12/14/22 Eosinophils # (Auto) 0.02 K/uL (0-0.50) 12/14/22 Immature Granulocyte % (Auto) 0.8 % 12/14/22 Neutrophils # (Auto) 12.29 K/uL (1.40-6.50) H 12/14/22 Lymphocytes # (Auto) 0.52 K/uL (1.2-3.4) L 12/14/22 Monocytes # (Auto) 1.35 K/uL (0.11-0.59) H 12/14/22 Eosinophils # (Auto) 0.02 K/uL (0-0.50) 12/14/22 Basophils # (Auto) 0.03 K/uL (0-0.2) 12/14/22 Immature Granulocyte # (Auto) 0.12 K/uL (0.01-0.20) 3 Na 130 mmol/L (136-145) L 12/14/22 K 3.5 mmol/L (3.5-5.1) 12/14/22 Cl 93 mmol/L (98-107) L 12/14/22 CO2 22 mmol/L (21-32) 12/14/22 Anion Gap 15 (3-11) H 12/14/22 BUN 122 mg/dl (6-23) H 12/14/22 Creatinine 7.30 mg/dl (0.6-1.2) H* 12/14/22 Estimated GFR ( Amer) 6.0 ml/min 12/14/22 Estimated GFR (Non-Af Amer) 5.2 ml/min 12/14/22 BUN/Creatinine Ratio 16.7 (10-20) 12/14/22 Glu 133 mg/dl (70-99(Fasting)) H 12/14/22 Ca 8.4 mg/dl (8.6-10.3) L 12/14/22 Phosphorus Level 6.6 mg/dl (2.5-4.9) H 12/14/22 Total Bilirubin 0.9 mg/dl (0.2-1.0) 12/14/22 Direct Bilirubin 0.4 mg/dl (0-0.2) H 12/14/22 AST 51 U/L (13-39) H 12/14/22 ALT 26 U/L (7-52) 12/14/22 Alkaline Phosphatase 183 U/L (34-104) H 12/14/22 TP 6.0 gm/dl (6.0-8.3) 12/14/22 Albumin 2.9 gm/dl (3.4-5.0) L 12/14/22 Mg 1.8 mg/dl (1.7-2.4) 12/14/22 04:10 Calcium Level 8.4 mg/dl (8.6-10.3) L 12/14/22 06:43 Venous Blood pH 7.47 (7.36-7.41) H 12/13/22 23:21 Venous Blood Partial Pressure CO2 29 mmHg (38-50) L 12/13/22 23 :21 Venous Blood Partial Pressure O2 81 mmHg 12/13/22 23:21 Venous Blood HCO3 21 mmol/L 12/13/22 23:21 Venous Blood Base Excess -1.5 mEq/L 12/13/22 23:21 Venous Blood Oxygen Saturation 98.3 % 12/13/22 23:21 Microbiology 12/12/22 19:46 Aerobic Blood Culture - Preliminary Blood Gram negative bacilli Anaerobic Blood Culture - Preliminary Gram negative bacilli 12/12/22 19:27 Aerobic Blood Culture - Preliminary Blood Gram negative bacilli Anaerobic Blood Culture - Preliminary Gram negative bacilli 12/12/22 20:33 Urine Culture - Preliminary Urine,Clean Catch Klebsiella pneumoniae I & O Totals 24 Hours 12/13/22 12/14/22 12/15/22 06:59 06:59 06:59 Intake Total 3761.135 / 3761.135 6752.699 / 6752.699 Output Total 2250 / 2250 5327 / 5327 Balance 1511.135 / 1046.974 7771.699 / 1425.699 Cumulative 12/12/22 18:57 thru 12/14/22 06:09 Intake Total 90338.834 Output Total 7577 Balance 2936.834 RT Ventilator Mngmt (Last Documented) Ventilator Ordered Settings Respiratory Rate 21 12/14/22 06:00 Ventilator - PT Measurements Respiratory Rate 21 Coding Level of Care Code 46784 CRITICAL CARE 1ST 30-74M Diagnoses Septic shock A41.9; R65.21 DAVONTE (acute kidney injury) N17.9 Severe sepsis A41.9; R65.20 Metabolic acidosis E87.20 Bacteremia due to Klebsiella pneumoniae R78.81; B96.1 Pyelonephritis N12
--- NOTE | 2022-12-14 08:12 | Nephrology Progress Note ---
Date of Service December 14, 2022 Assessment & Plan (1) DAVONTE (acute kidney injury): Plan: further improving stage 3 non oliguric DAVONTE on progressive CKD 3 versus preexisti ng DAVONTE based on August 2022 creatinine reading of 1.7. Patient is clinically and in terms of labs from a kidney standpoint improving though still critical. Note also however her OP creatinine is increasing dramatically over the past year from 1.0 on 08/2021 [facility] labs to 1.1 in 02/2022 and 1.7 08/2022 on G readings; no definite baseline value at this time; would guess around 1.5 but this is a guess only and no way to establish it. inflamed, nephritic UA noted > could be UTI, could be interstitial, tubular, or glomerular process at this point. Likeliest w/ RTE in UA is ATN. -currently no strong indication for dialysis discussion though improving daily her situation is still tenuous clinically and cannot rule out need -continue supportive care for GN bacteremia presume Kp> BP support, targeted abtx -continue strict I/O -continue pressor >NS is for now appropriate cyrstalloid; agree w/ current rate 125 ml/hr (2) Severe sepsis: Plan: blood cultures remain 08/28 GNR along w/ K pniaeurine culture; pt w/ 2017 hx of e coli UTI. persistent hypotension/pressor dependence >> TTE w/o WMA, abnormal EF, or valvular pathology >f/u pending culture data >broad spectrum abtx now narrowed to ceftriaxone >continue BP support (3) Hyponatremia: Plan: goal is sNa in low normal range for tomorrow AM >would do BMP q8-12 hrs now -maintain eukalemia (especially tricky w/ her creatinine) Admission and Anticipated Discharge Date Admission Date: December 12, 2022 Subjective can't get off of NE; IVF changed to NS; no specific c/o but when asked further c/o R hip pain. no sob, no n/v, minimal appetite. ur cx klebsiella; 4.8 L UOP Review of Systems Review of Systems: All systems reviewed & are unremarkable except as noted in Subjective Physical Exam Constitutional: well developed, well nourished, + frail appearing and cooperative; no acute distress Eyes: EOM intact bilaterally ENMT: Ears: no external ear abnormality Nose: no external nose abnormality Mouth: + dry oral mucous membranes Neck: no nuchal rigidity Respiratory: normal respiratory effort; no labored breathing and no cough Auscultation: + diminished lung sounds and + crackles (fine bibasilar) Cardiovascular: Rate/Rhythm: regular rate and regular rhythm Extremities: no edema Gastrointestinal (Abdomen): Inspection/Auscultation: normal bowel sounds Percussion/Palpation: abdomen soft; abdomen nontender Musculoskeletal: Extremities: strength 5/5 throughout Skin: no rashes, warm and dry Neurologic: pastrana, fluent speech, no tremor Psychiatric: Orientation: alert and oriented x 3 Speech: normal rate/rhythm/volume of speech some slight issues w/ recall Results & Data Vital Signs (Past 12 Hours) Vital Signs Temp Pulse Pulse Resp BP Pulse Ox O2 Del Method 12/14/22 06:00 83 21 105/42 L 94 12/14/22 05:30 88 14 118/50 L 94 12/14/22 05:00 90 22 125/51 L 93 12/14/22 05:00 125/51 L 12/14/22 04:30 88 22 135/56 L 94 12/14/22 04:00 84 24 122/54 L 92 12/14/22 03:30 87 22 115/46 L 92 12/14/22 03:00 88 20 107/45 L 95 12/14/22 02:30 85 24 106/48 L 94 12/14/22 02:00 83 21 105/41 L 95 12/14/22 01:30 84 21 95/42 L 96 12/14/22 01:01 85 22 107/51 L 98 12/14/22 00:30 88 18 91/46 L 98 12/14/22 00:00 91 H 24 103/70 96 12/13/22 23:32 78 21 83/32 L 97 12/13/22 23:30 81 17 113/36 L 95 12/14/22 01:00 75 12/13/22 23:42 78 16 96 Room Air 12/13/22 23:00 75 20 113/36 L 94 12/13/22 22:30 74 19 97 12/13/22 22:24 73 21 106/60 97 12/13/22 22:00 69 15 96 12/13/22 21:30 77 17 95 12/13/22 23:09 37.0 C 12/13/22 21:00 75 19 95 Laboratory Results 12/14/22 04:10 12/14/22 06:43 cxs reviewed
[2022-12-14] MEDS ORDERED: INSULIN ASPART PER UNIT CHARGE SC SCH (08:15)
[2022-12-14] MEDS: FLUTICASONE/VILANTEROL 100/25MCG 14 PUFFS/INHALER INH SCH (08:46)
[2022-12-14] MEDS: ASPIRIN 81 MG ECTAB PO SCH (08:51)
[2022-12-14] MEDS: PANTOprazole 40 MG TAB PO SCH (08:51)
[2022-12-14] MEDS: MIDODRINE HCL 2.5 MG TAB PO SCH ×3 (08:51→17:08)
[2022-12-14] MEDS: MONTELUKAST SODIUM 10 MG TABLET PO SCH (08:51)
[2022-12-14] MEDS ORDERED: LANTUS PER UNIT CHARGE SC SCH ×2 (09:00→21:00)
[2022-12-14] MEDS: VASOPRESSIN 20 UNITS in 0.9 % SODIUM CHLORIDE 100 ML IV SCH (09:43)
--- NOTE | 2022-12-14 11:46 | Pharmacy Report ---
Pharmacy Glycemic Short Note 2 - Date of Service December 14, 2022 - Glycemic Short BSG Results (Last 24 hours): 12/13/22 12/13/22 12/13/22 11:32 11:39 15:25 Glucose 250 H 215 H POC Glucose POC Glucose (other) 249 H 12/13/22 12/13/22 12/13/22 15:29 19:17 19:50 Glucose 173 H POC Glucose 175 H POC Glucose (other) 215 H 12/13/22 12/13/22 12/14/22 23:21 23:31 04:13 Glucose 157 H POC Glucose 146 H 149 H POC Glucose (other) 12/14/22 12/14/22 12/14/22 06:43 07:48 10:55 Glucose 133 H POC Glucose 249 H POC Glucose (other) 142 H OUTPATIENT ANTIDIABETIC REGIMEN: * Ozempic 2 mg SC once weekly * Note: diarrhea on admission correlates with increased Ozempic dose * HbA1c 6/4% on 12/13/22 ASSESSMENT: 12/14: * Liane received 43 units of insulin yesterday, 25 units basal + 18 units bolus. BSGs were: [phone] mg/dL. * Remains on Ceftriaxone and Metronidazole today. Vasopressin was titrated off over night. Still requiring a very minor dose of Norepinephrine to maintain MAPs > 65. Midodrine added this morning to help titrate off pressor. NS is running at 125 mL/hr. Diet was advanced to full liquid this morning. * Fasting BSG was 142 mg/dL this AM. Gave a 20 unit dose of Lantus this AM. Will also add a scaled basal dose for this evening given patient is now eating (tolerated 42 g of CHO with breakfast). * Postprandial BSG at lunch was elevated at 249 mg/dL. Will tighten carb ratio. 12/13: * 72 yo F with T2DM admitted to the ICU with sepsis 2nd K. pneumo bacteremia, likely UTI or GI source. Currently NPO and weaning off pressors. * Previous admissions reviewed - most recent one where patient was on steroids for COVID - not likely helpful for this admission while not on steroids. Also reviewed multiple day admission in 2018 while not on steroids. Lantus dose initially exceeded 130 units/day for many days initially but was decreased down to ~50 units/day after AM hypoglycemic episode ~3 days into the admission. * Will half Lantus dose as compared to the end of the previous admission due to NPO status and also ICU status (goal BSG 140-180 mg/dL) * OK to utilized more aggressive correction factor - similar to previous and also low-dose Lantus. Weight-based moderate stress CHO ratio for if/when patient is ordered a diet PLAN FOR INPATIENT GLYCEMIC CONTROL: * Basal insulin * Lantus 20 units SC daily * Lantus 5-10 units SC HS (see eMAR for more details) * Bolus insulin * NovoLog per scale ACHS or Q6hrs while NPO * Goal Range: Low 110 mg/dL - High 140 mg/dL * Correction Factor: 15 mg/dL/unit * Nutritional / Prandial insulin per carb ratio of 1 unit per 5 grams CHO consumed
--- NOTE | 2022-12-14 12:04 | Electrocardiogram Report ---
Test Reason : Blood Pressure : / mmHG Vent. Rate : 087 BPM Atrial Rate : 087 BPM P-R Int : 156 ms QRS Dur : 096 ms QT Int : 368 ms P-R-T Axes : 040 002 016 degrees QTc Int : 442 ms Poor data quality, interpretation may be adversely affected Normal sinus rhythm Normal ECG When compared with ECG of 13-DEC-2022 06:15, No significant change was found Confirmed by Javon Posey ([id number]) on 12/14/2022 12:04:03 PM Referred By: REFERRED SELF Confirmed By:Javon Posey
--- NOTE | 2022-12-14 12:10 | Hospitalist Progress Note ---
Date of Service December 14, 2022 Assessment & Plan (1) Severe sepsis: Plan: 72-year-old female past medical history significant for type 2 diabetes, on long-term insulin, iron metabolism disease, diabetic retinopathy, hyperlipidemia, moderate persistent asthma, obstructive sleep apnea does not tolerate BiPAP nocturnal oxygen 3 to 4 L, hypertension, pulmonary hypertension, PVCs, irritable bowel syndrome, GERD, chronic kidney disease stage III, restless leg syndrome, medical marijuana use, depression, KARI, PTSD, panic disorder, history of COVID, presents with diarrhea going on for 1 week and found to have severe sepsis, DAVONTE, hyperkalemia, hyponatremia and metabolic acidosis. Septic shock Urosepsis On admission, hypotension and elevated lactic acid 2.7. Required vasopressors. Leukocytosis present, downtrending Urinalysis suggestive of infection Blood culture positive for Klebsiella pneumoniae Off vasopressors; was started on midodrine. On IV normal saline at 125 cc/h Currently on ceftriaxone and Flagyl. Await sensitivities on blood culture Repeat blood culture done today. Rest of care per ICU DAVONTE Hyponatremia Hyperkalemia Metabolic acidosis DAVONTE likely due to septic shock Resulting in hyponatremia, hyperkalemia and metabolic acidosis, improving Urine output reassuring Presented to creatinine of 13.3, downtrending. Baseline creatinine 0.8-1 Currently on normal saline at 125 cc/h Close monitoring of serum sodium and potassium level Elevated troponin likely due to demand ischemia from septic shock High-sensitivity troponin elevated Mostly from DAVONTE and demand ischemia from sepsis Echocardiogram showed EF of 55 to 60%; no significant valvular abnormity or wall motion abnormalities. Diarrhea Decreased appetite CT abdomen and pelvis reviewed; consistent with colitis. Possible side effect of Ozempic increased dose. Type II diabetes Patient states this takes 8o units of long-acting insulin the morning and and as needed short-acting She is also on Ozempic Currently we will place on insulin sliding scale Pharmacy on board. Obstructive sleep apnea Does not tolerate BiPAP On oxygen 3 to 4 L nightly Restless leg syndrome On pramipexole which is on hold for now Hypertension Holding lisinopril metoprolol and Lasix as patient currently having DAVONTE and hypotension. Insomnia On clonidine nightly which we will hold for hypotension. Hyperlipidemia Statin currently on hold due to elevated CK. Irritable bowel syndrome Hold home medications for now History of asthma Continue home inhalers and nebs as needed GERD Will place on IV. Pepcid DVT prophylaxis Heparin subcu Disposition Close monitoring ICU Full code Time spent evaluating patient, direct bedside care, chart review, placing orders, interpretation of diagnostic studies, discussion with consultants, patient, and family members, as well as other required patient management activities is 60 minutes. Please note the above document was generated using voice recognition software. It may contain grammatical, syntax or spelling errors. Any formal questions or concerns about the content, text or information contained within the body of this dictation should be directly addressed to the provider for clarification (2) DAVONTE (acute kidney injury): (3) Hyponatremia: (4) Metabolic acidosis: (5) Diarrhea: Admission and Anticipated Discharge Date Admission Date: December 12, 2022 Subjective Patient seen and examined at bedside. She is sitting up on the bed comfortably; not in distress. Urine output of 4.6 L. Review of Systems Review of Systems: All systems reviewed & are unremarkable except as noted in Subjective Physical Exam Physical Exam: Constitutional: Awake, alert orient x3. Not in any distress Respiratory: Bilateral vesicular breath sound Cardiovascular: RRR, no murmur, no edema Vessels: no JVD or carotid bruit Chest: normal inspection of chest Abdomen: normal bowel sounds, soft, nontender, no hepatosplenomegaly. Schaefer in place draining clear urine. Musculoskeletal: no cyanosis or clubbing, extremities motor strength 5/5 Skin: no rashes, warm and dry normal turgor Neurologic: PERRL, EOMI, accommodation nl, no face palsy, no dysarthria CN's II- XI intact bilaterally and moves all extremities Psychiatric: A+Ox3, euthymic affect Results & Data Results & Data Vital Signs (Past 12 Hours) Vital Signs Pulse Resp BP Pulse Ox O2 Del Method 12/14/22 11:00 84 17 95 12/14/22 10:45 88 19 93 12/14/22 10:30 89 25 H 94 12/14/22 10:30 99/40 L 12/14/22 10:15 86 22 94 12/14/22 10:00 87 20 93 12/14/22 10:00 92/35 L 12/14/22 09:45 86 19 94 12/14/22 09:35 91/42 L 12/14/22 09:35 88 22 94 12/14/22 09:30 87/36 L 12/14/22 09:39 Room Air 12/14/22 09:30 88 23 93 12/14/22 09:28 94/42 L 12/14/22 09:28 87 22 95 12/14/22 09:15 90 19 94 12/14/22 09:00 87 23 96 12/14/22 08:45 85 20 96 12/14/22 08:30 85 17 96 12/14/22 08:15 83 24 94 12/14/22 08:00 86 18 94 12/14/22 07:45 93 H 25 H 94 12/14/22 07:30 91 H 21 96 12/14/22 07:30 128/52 L 12/14/22 07:15 81 20 94 12/14/22 07:00 80 20 94 12/14/22 07:00 100/45 L 12/14/22 06:45 85 20 96 12/14/22 06:30 83 21 95 12/14/22 06:30 119/52 L 12/14/22 06:15 80 20 93 12/14/22 08:00 83 12/14/22 06:00 83 21 105/42 L 94 12/14/22 05:30 88 14 118/50 L 94 12/14/22 05:00 90 22 125/51 L 93 12/14/22 05:00 125/51 L 12/14/22 04:30 88 22 135/56 L 94 12/14/22 04:00 84 24 122/54 L 92 12/14/22 03:30 87 22 115/46 L 92 12/14/22 03:00 88 20 107/45 L 95 12/14/22 02:30 85 24 106/48 L 94 12/14/22 02:00 83 21 105/41 L 95 12/14/22 01:30 84 21 95/42 L 96 12/14/22 01:01 85 22 107/51 L 98 12/14/22 00:30 88 18 91/46 L 98 12/14/22 01:00 75 Laboratory Results Laboratory Results WBC 14.33 K/ul (4.8-10.8) H D 12/14/22 04:10 RBC 2.80 M/uL (4.20-5.40) L 12/14/22 04:10 Hgb 8.6 g/dl (12.0-16.0) L 12/14/22 04:10 Hct 23.4 % (37.0-47.0) L 12/14/22 04:10 MCV 83.6 fL (80.0-100.0) 12/14/22 04:10 MCH 30.7 pg (25.0-34.0) 12/14/22 04:10 MCHC 36.8 g/dL (32.0-36.0) H 12/14/22 04:10 RDW Std Deviation 41.5 fL (36.4-46.3) 12/14/22 04:10 RDW Coeff of Pérez 13.6 % (11.5-14.5) 12/14/22 04:10 Plt Count 182 K/uL (130-400) 12/14/22 04:10 MPV 12.0 fL (9.4-12.4) 12/14/22 04:10 Immature Gran % (Auto) 0.8 % 12/14/22 04:10 Neut % (Auto) 85.9 % 12/14/22 04:10 Lymph % (Auto) 3.6 % 12/14/22 04:10 [place] % (Auto) 9.4 % 12/14/22 04:10 Eos % (Auto) 0.1 % 12/14/22 04:10 Baso % (Auto) 0.2 % 12/14/22 04:10 Neut # (Auto) 12.29 K/uL (1.40-6.50) H 12/14/22 04:10 Lymph # (Auto) 0.52 K/uL (1.2-3.4) L 12/14/22 04:10 [place] # (Auto) 1.35 K/uL (0.11-0.59) H 12/14/22 04:10 Eos # (Auto) 0.02 K/uL (0-0.50) 12/14/22 04:10 Baso # (Auto) 0.03 K/uL (0-0.2) 12/14/22 04:10 Immature Gran # (Auto) 0.12 K/uL (0.01-0.20) 12/14/22 04:10 Dohle Bodies 1+ 12/13/22 05:25 Polychromasia 1+ 12/12/22 19:27 Echinocytes 2+ 12/13/22 05:25 PT 11.9 Seconds (9.0-12.0) 12/12/22 19: INR 1.1 (0.9-1.1) 12/12/22 19: APTT 24.2 Seconds (21.0-31.0) 12/12/22 19: PTT Ratio 0.9 12/12/22 19: VBG pH 7.47 (7.36-7.41) H 12/13/22 23:21 VBG pCO2 29 mmHg (38-50) L 12/13/22 23:21 VBG pO2 81 mmHg 12/13/22 23:21 VBG HCO3 21 mmol/L 12/13/22 23: VBG O2 Saturation 98.3 % 12/13/22 23: VBG Base Excess -1.5 mEq/L 12/13/22 23:21 Sodium 130 mmol/L (136-145) L 12/14/22 06:43 Potassium 3.5 mmol/L (3.5-5.1) 12/14/22 06:43 Chloride 93 mmol/L (98-107) L 12/14/22 06:43 Carbon Dioxide 22 mmol/L (21-32) 12/14/22 06:43 Anion Gap 15 (3-11) H 12/14/22 06:43 BUN 122 mg/dl (6-23) H 12/14/22 06:43 Creatinine 7.30 mg/dl (0.6-1.2) H* D 12/14/22 06:43 Est Cr Clr Drug Dosing 9.4 ml/min 12/14/22 06:43 Est GFR ( Amer) 6.0 ml/min 12/14/22 06:43 Est GFR (Non-Af Amer) 5.2 ml/min 12/14/22 06:43 BUN/Creatinine Ratio 16.7 (10-20) 12/14/22 06:43 Glucose 133 mg/dl (70-99(Fasting)) H 12/14/22 06:43 POC Glucose 249 mg/dl (70-99) H 12/14/22 10:55 POC Glucose (other) 142 mg/dl (70-99) H 12/14/22 07:48 Estimat Average Glucose 137 mg/dl 12/13/22 05:25 Hemoglobin A1c 6.4 % (4.5-5.6) H 12/13/22 05:25 Lactate 1.3 mmol/L (0.4-2.0) 12/13/22 00:27 Calcium 8.4 mg/dl (8.6-10.3) L 12/14/22 06:43 Phosphorus 6.6 mg/dl (2.5-4.9) H 12/14/22 04:10 Magnesium 1.8 mg/dl (1.7-2.4) 12/14/22 04:10 Total Bilirubin 0.9 mg/dl (0.2-1.0) 12/14/22 04:10 Direct Bilirubin 0.4 mg/dl (0-0.2) H 12/14/22 04:10 AST 51 U/L (13-39) H 12/14/22 04:10 ALT 26 U/L (7-52) 12/14/22 04:10 Alkaline Phosphatase 183 U/L (34-104) H 12/14/22 04:10 Total Creatine Kinase 721 U/L (26-192) H 12/12/22 19:27 Troponin I High Sens 146.2 pg/ml (0-14) H* 12/13/22 19:17 Troponin I High Sens Cancelled 12/13/22 19:17 Total Protein 6.0 gm/dl (6.0-8.3) 12/14/22 04:10 Albumin 2.9 gm/dl (3.4-5.0) L 12/14/22 04:10 Lipase 187 U/L (11-82) H 12/12/22 19:27 Procalcitonin 14.61 ng/ml (0-0.5) H 12/12/22 19:27 Random Cortisol 31.95 mcg/dl 12/13/22 00:23 Urine Color Dark Yellow 12/12/22 20:33 Urine Appearance Turbid (Clear) A 12/12/22 20:33 Urine pH 7.0 (4.5-7.5) 12/12/22 20:33 Ur Specific [place] 1.016 (1.000-1.030) 12/12/22 20:33 Urine Protein 3+ (Negative) H 12/12/22 20:33 Urine Glucose (UA) Negative (Negative) 12/12/22 20:33 Urine Ketones Negative (Negative) 12/12/22 20:33 Urine Blood 3+ (Negative) H 12/12/22 20:33 Urine Nitrite Negative (Negative) 12/12/22 20:33 Urine Bilirubin Negative (Negative) 12/12/22 20:33 Urine Urobilinogen Negative (Negative) 12/12/22 20:33 Ur Leukocyte Esterase 3+ (Negative) H 12/12/22 20:33 Urine WBC (Auto) >30 /hpf (0-5) H 12/12/22 20:33 Urine RBC (Auto) 10-30 /hpf (0-4) H 12/12/22 20:33 U Hyaline Cast (Auto) 0 /lpf (0-5) 12/12/22 20:33 U Epithel Cells (Auto) >30 /lpf (0-5) H 12/12/22 20:33 Urine Bacteria (Auto) 4+ (Negative) H 12/12/22 20:33 Ur Renal Epithelial Cell 10-20 /lpf (0-5) H 12/12/22 20:33 Urine Yeast Not Reportable 12/12/22 20:33 Nasal Screen MRSA (PCR) Positive (Negative) A 12/12/22 23:00 Adenovirus (PCR) Not Detected (NotDetected) 12/12/22 19:27 B. pertussis DNA (PCR) Not Detected (NotDetected) 12/12/22 19:27 B.parapertussis DNA PCR Not Detected (NotDetected) 12/12/22 19:27 C. pneumoniae DNA (PCR) Not Detected (NotDetected) 12/12/22 19:27 Coronavirus OC43 (PCR) Not Detected (NotDetected) 12/12/22 19:27 Coronavirus HKU1 (PCR) Not Detected (NotDetected) 12/12/22 19:27 Coronavirus 229E (PCR) Not Detected (NotDetected) 12/12/22 19:27 SARS-CoV-2 (PCR) Not Detected (NotDetected) 12/12/22 19:27 Coronavirus NL63 (PCR) Not Detected (NotDetected) 12/12/22 19:27 Enterobacterales (PCR) DETECTED (NotDetected) A 12/12/22 19:27 Human Metapneumovir PCR Not Detected (NotDetected) 12/12/22 19:27 Influenza Type A (PCR) Not Detected (NotDetected) 12/12/22 19:27 Influenza Type B (PCR) Not Detected (NotDetected) 12/12/22 19:27 K. pneumoniae group (PCR) DETECTED (NotDetected) A 12/12/22 19:27 M. pneumoniae (PCR) Not Detected (NotDetected) 12/12/22 19:27 Parainfluenza 1 (PCR) Not Detected (NotDetected) 12/12/22 19:27 Parainfluenza 2 (PCR) Not Detected (NotDetected) 12/12/22 19:27 Parainfluenza 3 (PCR) Not Detected (NotDetected) 12/12/22 19:27 Parainfluenza 4 (PCR) Not Detected (NotDetected) 12/12/22 19:27 RSV (PCR) Not Detected (NotDetected) 12/12/22 19:27 Entero/Rhino (PCR) Not Detected (NotDetected) 12/12/22 19:27 mcr-1 Colistin Res Gene PCR Not Detected (NotDetected) 12/12/22 19:27 blaIMP Car res Gene PCR Not Detected (NotDetected) 12/12/22 19:27 KPC-Carbap Res Gene PCR Not Detected (NotDetected) 12/12/22 19:27 blaNDM Car Res Gene PCR Not Detected (NotDetected) 12/12/22 19:27 OXA-48 Carbapenem Resis Gene (PCR) Not Detected (NotDetected) 12/12/22 19:27 blaVIM Car Res Gene PCR Not Detected (NotDetected) 12/12/22 19:27 CTX-M Gene Resistance (PCR) Not Detected (NotDetected) 12/12/22 19:27 Bld Cult ID Panel PCR See PCR Comment (NotDetected) 12/12/22 19:27 Impressions Abdomen/Pelvis CT 12/12/22 19:21 Exam(s): CT ABDOMEN + PELVIS Without Contrast EXAM: CT Abdomen and Pelvis Without Intravenous Contrast CLINICAL HISTORY: Reason for exam: abd apin. TECHNIQUE: Axial computed tomography images of the abdomen and pelvis without intravenous contrast. CTDI is 28.14 mGy and DLP is 1415.4 mGy-cm. Automated exposure control was utilized for the study. A dose lowering technique was utilized adhering to the principles of ALARA. COMPARISON: No relevant prior studies available. FINDINGS: Lung bases: Unremarkable. No mass. No consolidation. ABDOMEN: Liver: Unremarkable. Gallbladder and bile ducts: Cholecystectomy clips. No ductal dilation. Pancreas: Unremarkable. No ductal dilation. Spleen: Unremarkable. No splenomegaly. Adrenals: Unremarkable. No mass. Kidneys and ureters: Unremarkable. No hydronephrosis or nephrolithiasis. Stomach and bowel: Circumferential wall thickening of the descending and sigmoid colon, with mild pericolonic fat stranding, consistent with mild colitis. No obstruction. PELVIS: Appendix: No findings to suggest acute appendicitis. Bladder: Decompressed urinary bladder. No stones. Reproductive: Unremarkable as visualized. ABDOMEN and PELVIS: Intraperitoneal space: Unremarkable. No free air. No significant fluid collection. Bones/joints: Degenerative changes of the spine. No acute fracture. No dislocation. Soft tissues: Unremarkable. Vasculature: Atherosclerotic changes of the aorta. No abdominal aortic aneurysm. Lymph nodes: Unremarkable. No enlarged lymph nodes. IMPRESSION: Circumferential wall thickening of the descending and sigmoid colon, with mild pericolonic fat stranding, consistent with mild colitis. Electronically signed by: Cezar Hansen MD 12/12/22 20:14 PM Chest X-Ray 12/12/22 23:57 XR chest 1V portable CLINICAL HISTORY: new central line R IJ placement TECHNIQUE: Single frontal radiograph of the chest was obtained. Comparison: Comparison is made to chest radiograph 12/12/2022 FINDINGS: Right sided venous catheter terminates in the lower SVC. The cardiomediastinal silhouette is normal. The lungs are clear. No evidence of pleural effusion or pneumothorax. IMPRESSION: Satisfactory position of right central line without evidence of pneumothorax. ACT 112: Negative or not required by law. Electronically signed by: Liban Jessica M.D. 12/13/2022 6:58 AM
[2022-12-14] MEDS: cefTRIAXone SODIUM 2,000 MG in DEXTROSE 5% 50 ML IV SCH (14:01)
[2022-12-15] MEDS: SODIUM CHLORIDE 0.9% 1000ML 1,000 ML IV SCH ×3 (04:13→22:26)
[2022-12-15 04:50] LABS: Basophils # (auto) 0.01 K/uL (0-0.2); Basophils % (auto) 0.1 %; Eosinophils # (auto) 0.06 K/uL (0-0.50); Eosinophils % (auto) 0.6 %; Hematocrit (blood only) 21.6 % (37.0-47.0); Hemoglobin 7.7 g/dl (12.0-16.0); Immature Granulocytes # (auto) 0.28 K/uL (0.01-0.20); Immature Granulocytes % (auto) 2.6 %; Lymphocytes # (auto) 0.64 K/uL (1.2-3.4); Lymphocytes % (auto) 5.9 %; Mean Corpuscular Hemoglobin 29.7 pg (25.0-34.0); Mean Corpuscular Hgb Conc 35.6 g/dL (32.0-36.0); Mean Corpuscular Volume 83.4 fL (80.0-100.0); Mean Platelet Volume 11.9 fL (9.4-12.4); Monocytes # (auto) 0.95 K/uL (0.11-0.59); Monocytes % (auto) 8.8 %; Neutrophils # (auto) 8.88 K/uL (1.40-6.50); Platelet Count 170 K/uL (130-400); RDW Coefficient of Variation 13.8 % (11.5-14.5); RDW Standard Deviation 42.1 fL (36.4-46.3); Red Blood Count 2.59 M/uL (4.20-5.40); White Blood Count 10.82 K/ul (4.8-10.8)
[2022-12-15 05:01] LABS: Albumin Level 2.5 gm/dl (3.4-5.0); BUN Creatinine Ratio 20.7 (10-20); Bilirubin Direct 0.3 mg/dl (0-0.2); Bilirubin,Total 0.7 mg/dl (0.2-1.0); Est GFR (African American) 8.9 ml/min; Est GFR (Non-African American) 7.6 ml/min; Magnesium 1.9 mg/dl (1.7-2.4); Phosphorus 5.9 mg/dl (2.5-4.9); Total Protein 5.6 gm/dl (6.0-8.3)
[2022-12-15 05:08] LABS: RBC Morphology Unremarkable
[2022-12-15] MEDS ORDERED: POTASSIUM CHLORIDE CRTAB 20 MEQ TABCR PO STA (06:06)
[2022-12-15] MEDS: metroNIDAZOLE 500 MG/100 ML BAG IV SCH ×3 (06:12→22:44)
[2022-12-15] MEDS: HEPARIN SOD 5,000 UNIT/0.5 ML VIAL SQ SCH ×3 (06:13→22:46)
[2022-12-15] MEDS: NOREPINEPHRINE/D5W 4 MG/250 ML PLCT IV SCH (07:08)
[2022-12-15] MEDS: INSULIN ASPART PER UNIT CHARGE SC SCH ×4 (07:49→20:09)
[2022-12-15] MEDS: FLUTICASONE/VILANTEROL 100/25MCG 14 PUFFS/INHALER INH SCH (07:51)
[2022-12-15] MEDS: ASPIRIN 81 MG ECTAB PO SCH (07:52)
[2022-12-15] MEDS: MONTELUKAST SODIUM 10 MG TABLET PO SCH (07:52)
[2022-12-15] MEDS: PANTOprazole 40 MG TAB PO SCH (07:52)
[2022-12-15] MEDS: MIDODRINE HCL 2.5 MG TAB PO SCH ×3 (07:52→17:32)
--- NOTE | 2022-12-15 08:18 | Critical Care Progress Note ---
Date of Service December 15, 2022 Assessment & Plan (1) Septic shock: (2) DAVONTE (acute kidney injury): (3) Severe sepsis: (4) Metabolic acidosis: (5) Bacteremia due to Klebsiella pneumoniae: (6) Pyelonephritis: Plan Reason Critically Ill: 72-year-old female with extensive past medical history presents to the ICU with gram-negative bacteremia (Klebsiella) likely from a urinary source with severe sepsis and severe septic shock in acute renal failure 24-hour events: Pressors now weaned off completely. She is hemodynamically stable. She has been out of bed to the chair. She is tolerating a diet. Recommendations Neuro -no current issues. Holding outpatient anxiolytic and antidepressant medications given her renal function. She seems to be doing well clinically. May consider restarting them depending on clinical scenario and kidney function. Cardiac -severe sepsis with septic shock due to Klebsiella bacteremia. Echo reviewed and unremarkable. Troponin trivially elevated due to supply/demand mismatch. Off pressors since yesterday morning. Continue midodrine for now with plans to wean off as tolerated by blood pressure. Hold on diuretics given kidney function and blood pressure issues Respiratory -history of sleep disordered breathing and asthma. Continue Breo inhaler. Not bronchospastic. Minimal oxygen requirement currently. Wean as tolerated to defend oxygen saturations greater than or equal to 90% GI -antecedent history of diarrhea. CT scan showed some evidence of colitis. Continue metronidazole and supportive care. Advance diet as tolerated RENAL/LYTES -acute renal failure, likely secondary to hypovolemia and acute ATN. Serum creatinine is slowly improving. Continues to show slow and steady improvement. Potassium repleted. Continue per nephrology. - Foleystrict I's and O's ENDO -random cortisol appropriate. Glycemic control per protocol. HEME - H&H stable, monitor routine CBC ID -gram-negative bacteremia (Klebsiella). Antibiogram shows sensitivity to Rocephin. Surveillance cultures no growth to date. D#4/7 rocephin/flagyl LINES/IV ACCESS - Right IJ CVC, right radial A-line. We will discontinue central line prior to transfer out of the ICU as long as peripheral access is okay DVT PROPHYLAXIS - SCDs, Subcu heparin Discussed with bedside critical care nurse as well as with pharmacist on multidisciplinary rounds. The patient is doing well and no longer requires critical care services. She can transfer out of the ICU. Critical care will sign off and the patient will be turned back over to the hospitalist. Feel free to contact us with additional questions or concerns. Admission and Anticipated Discharge Date Admission Date: December 12, 2022 Subjective Patient continues to show clinical improvement. She states she feels quite a bit better today. She is not experiencing any abdominal pain. She is tolerating a diet. No nausea or vomiting. No chest pain or palpitations. She continues to make an adequate amount of urine. No abdominal pain or flank pain. Review of Systems Review of Systems: All systems reviewed & are unremarkable except as noted in Subjective Physical Exam Constitutional: WD/WN, vitals as above Neck: trachea midline, no thyromegaly Respiratory: normal respiratory effort, lungs clear to auscultation Cardiovascular: RRR, no murmur, no edema Gastrointestinal (Abdomen): normal bowel sounds, soft, nontender, no hepatosplenomegaly Musculoskeletal: Extremities: extremities normal to inspection Skin: no rashes, warm and dry Lymphatic: no cervical lymphadenopathy Results & Data Results & Data Vital Signs (Past 12 Hours) Vital Signs Temp Pulse Resp BP Pulse Ox O2 Del Method 12/15/22 07:00 79 23 112/50 L 96 Room Air 12/15/22 07:28 36.8 C 12/15/22 06:30 77 17 116/51 L 95 12/15/22 05:31 78 21 91/52 L 97 12/15/22 05:00 73 19 107/45 L 93 12/15/22 04:50 75 19 107/56 L 96 12/15/22 04:40 78 17 111/53 L 98 12/15/22 04:30 79 21 105/51 L 97 12/15/22 04:20 80 18 109/55 L 97 12/15/22 04:00 110 H 21 100/54 L 96 12/15/22 04:00 100/54 L 12/15/22 03:50 82 14 110/52 L 95 12/15/22 03:40 80 20 94/51 L 96 12/15/22 03:20 71 18 93/52 L 97 12/15/22 03:10 74 17 90/39 L 96 12/15/22 03:00 73 16 96/43 L 95 12/15/22 02:50 73 18 93/42 L 97 12/15/22 02:40 75 18 90/40 L 95 12/15/22 02:30 75 19 95/41 L 95 12/15/22 02:20 75 18 85/39 L 96 12/15/22 02:00 86 23 104/50 L 95 12/15/22 01:30 92 H 18 109/50 L 95 12/15/22 01:20 91 H 15 97/57 L 96 12/15/22 01:11 98 H 24 112/61 96 12/15/22 01:05 91 H 23 115/55 L 99 12/15/22 01:00 92 H 27 H 97/49 L 94 12/14/22 22:30 88 20 111/65 97 12/14/22 21:40 88 16 120/60 12/14/22 20:31 88 17 99/55 L 94 Critical Care Results & Data Vital Signs (Past 12 Hours) Vital Signs Temp Pulse Resp BP Pulse Ox O2 Del Method 12/15/22 08:00 81 23 102/56 L 96 Room Air 12/15/22 07:00 79 23 112/50 L 96 Room Air 12/15/22 07:28 36.8 C 12/15/22 06:30 77 17 116/51 L 95 12/15/22 05:31 78 21 91/52 L 97 12/15/22 05:00 73 19 107/45 L 93 12/15/22 04:50 75 19 107/56 L 96 12/15/22 04:40 78 17 111/53 L 98 12/15/22 04:30 79 21 105/51 L 97 12/15/22 04:20 80 18 109/55 L 97 12/15/22 04:00 110 H 21 100/54 L 96 12/15/22 04:00 100/54 L 12/15/22 03:50 82 14 110/52 L 95 12/15/22 03:40 80 20 94/51 L 96 12/15/22 03:20 71 18 93/52 L 97 12/15/22 03:10 74 17 90/39 L 96 12/15/22 03:00 73 16 96/43 L 95 12/15/22 02:50 73 18 93/42 L 97 12/15/22 02:40 75 18 90/40 L 95 12/15/22 02:30 75 19 95/41 L 95 12/15/22 02:20 75 18 85/39 L 96 12/15/22 02:00 86 23 104/50 L 95 12/15/22 01:30 92 H 18 109/50 L 95 12/15/22 01:20 91 H 15 97/57 L 96 12/15/22 01:11 98 H 24 112/61 96 12/15/22 01:05 91 H 23 115/55 L 99 12/15/22 01:00 92 H 27 H 97/49 L 94 12/14/22 22:30 88 20 111/65 97 12/14/22 21:40 88 16 120/60 12/14/22 20:31 88 17 99/55 L 94 Lab & Micro Results (Past 24 Hours) RBC 2.59 M/uL (4.20-5.40) L 12/15/22 WBC 10.82 K/ul (4.8-10.8) H 12/15/22 Hgb 7.7 g/dl (12.0-16.0) L 12/15/22 Hct 21.6 % (37.0-47.0) L 12/15/22 MCV 83.4 fL (80.0-100.0) 12/15/22 MCH 29.7 pg (25.0-34.0) 12/15/22 MCHC 35.6 g/dL (32.0-36.0) 12/15/22 RDW Standard Deviation 42.1 fL (36.4-46.3) 12/15/22 RDW Coefficient of Variation 13.8 % (11.5-14.5) 12/15/22 Plt Count 170 K/uL (130-400) 12/15/22 MPV 11.9 fL (9.4-12.4) 12/15/22 Neutrophils (%) (Auto) 82.0 % 12/15/22 Lymphocytes (%) (Auto) 5.9 % 12/15/22 Monocytes # (Auto) 0.95 K/uL (0.11-0.59) H 12/15/22 Eosinophils # (Auto) 0.06 K/uL (0-0.50) 12/15/22 Immature Granulocyte % (Auto) 2.6 % 12/15/22 Neutrophils # (Auto) 8.88 K/uL (1.40-6.50) H 12/15/22 Lymphocytes # (Auto) 0.64 K/uL (1.2-3.4) L 12/15/22 Monocytes # (Auto) 0.95 K/uL (0.11-0.59) H 12/15/22 Eosinophils # (Auto) 0.06 K/uL (0-0.50) 12/15/22 Basophils # (Auto) 0.01 K/uL (0-0.2) 12/15/22 Immature Granulocyte # (Auto) 0.28 K/uL (0.01-0.20) H 12/15 Red Blood Cell Morphology Unremarkable 12/15/22 Na 135 mmol/L (136-145) L 12/15/22 K 3.0 mmol/L (3.5-5.1) L 12/15/22 Cl 100 mmol/L (98-107) 12/15/22 CO2 21 mmol/L (21-32) 12/15/22 Anion Gap 14 (3-11) H 12/15/22 BUN 109 mg/dl (6-23) H 12/15/22 Creatinine 5.27 mg/dl (0.6-1.2) H* 12/15/22 Estimated GFR ( Amer) 8.9 ml/min 12/15/22 Estimated GFR (Non-Af Amer) 7.6 ml/min 12/15/22 BUN/Creatinine Ratio 20.7 (10-20) H 12/15/22 Glu 138 mg/dl (70-99(Fasting)) H 12/15/22 Ca 8.0 mg/dl (8.6-10.3) L 12/15/22 Phosphorus Level 5.9 mg/dl (2.5-4.9) H 12/15/22 Total Bilirubin 0.7 mg/dl (0.2-1.0) 12/15/22 Direct Bilirubin 0.3 mg/dl (0-0.2) H 12/15/22 AST 45 U/L (13-39) H 12/15/22 ALT 23 U/L (7-52) 12/15/22 Alkaline Phosphatase 163 U/L (34-104) H 12/15/22 TP 5.6 gm/dl (6.0-8.3) L 12/15/22 Albumin 2.5 gm/dl (3.4-5.0) L 12/15/22 Mg 1.9 mg/dl (1.7-2.4) 12/15/22 04:17 Calcium Level 8.0 mg/dl (8.6-10.3) L 12/15/22 04:17 Microbiology 12/12/22 19:27 Aerobic Blood Culture - Preliminary Blood Klebsiella pneumoniae Anaerobic Blood Culture - Preliminary Gram negative bacilli 12/12/22 20:33 Urine Culture - Final Urine,Clean Catch Klebsiella pneumoniae 12/12/22 19:46 Aerobic Blood Culture - Preliminary Blood Gram negative bacilli Anaerobic Blood Culture - Preliminary Gram negative bacilli I & O Totals 24 Hours 12/14/22 12/15/22 12/16/22 06:59 06:59 06:59 Intake Total 6752.699 / 6752.699 5827.143 / 5827.143 199.107 / 199.107 Output Total 5327 / 5327 4751 / 4751 Balance 1425.699 / 6734.449 5517.143 / 1076.143 199.107 / 199.107 Cumulative 12/12/22 18:57 thru 12/15/22 07:26 Intake Total 40771.084 Output Total 91942 Balance 4212.084 RT Ventilator Mngmt (Last Documented) Ventilator Ordered Settings Respiratory Rate 23 12/15/22 08:00 Ventilator - PT Measurements Respiratory Rate 23 Coding Level of Care Code 36644 SUB INP/OBS CARE 2/35MIN Diagnoses Septic shock A41.9; R65.21 DAVONTE (acute kidney injury) N17.9 Severe sepsis A41.9; R65.20 Metabolic acidosis E87.20 Bacteremia due to Klebsiella pneumoniae R78.81; B96.1 Pyelonephritis N12
[2022-12-15] MEDS: POTASSIUM CHLORIDE 20 MEQ/15 ML UDC PO SCH ×2 (08:29→20:50)
[2022-12-15] MEDS ORDERED: LANTUS PER UNIT CHARGE SC SCH ×2 (09:00→16:30)
[2022-12-15 10:47] LABS: Cdiff Toxin B Gene (2yr or >) Positive Cdiff Gene (Neg)
[2022-12-15 11:24] LABS: Adenovirus F 40/41 PCR Not Detected (NotDetected); Astrovirus PCR Not Detected (NotDetected); Campylobacter PCR Not Detected (NotDetected); Cryptosporidium PCR Not Detected (NotDetected); Cyclospora cayetanensis PCR Not Detected (NotDetected); Entamoeba histolytica PCR Not Detected (NotDetected); Enteroaggregative E.coli(EAEC) Not Detected (NotDetected); Enteropathogenic E.coli (EPEC) Not Detected (NotDetected); Enterotoxigenic E.coli (ETEC) Not Detected (NotDetected); Giardia lamblia PCR Not Detected (NotDetected); Norovirus GI/GII PCR Not Detected (NotDetected); Plesiomonas shigelloides PCR Not Detected (NotDetected); Rotavirus A PCR Not Detected (NotDetected); Salmonella PCR Not Detected (NotDetected); Sapovirus PCR Not Detected (NotDetected); Shiga-like Toxin E.coli (STEC) Not Detected (NotDetected); Shigella/Enteroinvasive E.coli Not Detected (NotDetected); Vibrio cholerae PCR Not Detected (NotDetected); Vibrio species PCR Not Detected (NotDetected); Yersinia enterocolitica PCR Not Detected (NotDetected)
[2022-12-15 11:30] LABS: Cdiff Antigen Positive
[2022-12-15 11:31] LABS: Cdiff Toxin A+B Negative Cdiff Toxin (Negative)
[2022-12-15] MEDS ORDERED: clonazePAM 0.25 MG TAB PO PRN (11:50)
--- NOTE | 2022-12-15 11:51 | Hospitalist Progress Note ---
Date of Service December 15, 2022 Assessment & Plan (1) Severe sepsis: (2) DAVONTE (acute kidney injury): (3) Hyponatremia: (4) Metabolic acidosis: (5) Diarrhea: Plan 72-year-old female past medical history significant for type 2 diabetes, on long-term insulin, iron metabolism disease, diabetic retinopathy, hyperlipidemia, moderate persistent asthma, obstructive sleep apnea does not tolerate BiPAP nocturnal oxygen 3 to 4 L, hypertension, pulmonary hypertension, PVCs, irritable bowel syndrome, GERD, chronic kidney disease stage III, restless leg syndrome, medical marijuana use, depression, KARI, PTSD, panic disorder, history of COVID, presents with diarrhea going on for 1 week and found to have severe sepsis, DAVONTE, hyperkalemia, hyponatremia and metabolic acidosis. Septic shock on POA Urosepsis on POA On admission, hypotension and elevated lactic acid 2.7. Required vasopressors. Leukocytosis present on admission, downtrending Urinalysis suggestive of infection Blood culture on admission positive for Klebsiella pneumoniae; pansensitive Repeat blood cultures negative so far. Currently on ceftriaxone and Flagyl. Plan to treat with total duration of antibiotic for 10 days for bacteremia. Will stop Flagyl after 5 days. Follow-up on repeat blood culture Transfer out of ICU. DAVONTE Hyponatremia Hyperkalemia Metabolic acidosis DAVONTE likely due to septic shock Resulting in hyponatremia, hyperkalemia and metabolic acidosis, improving Urine output reassuring Presented to creatinine of 13.3, downtrending. Baseline creatinine 0.8-1 Normal saline rate decreased to 100 cc/h. Continue strict input and output monitoring. Close monitoring of serum sodium and potassium level Elevated troponin likely due to demand ischemia from septic shock High-sensitivity troponin elevated Mostly from DAVONTE and demand ischemia from sepsis Echocardiogram showed EF of 55 to 60%; no significant valvular abnormity or wall motion abnormalities. Diarrhea Decreased appetite C. difficile colonization CT abdomen and pelvis reviewed; consistent with colitis. Possible side effect of Ozempic increased dose. C. difficile gene positive, toxin negative; likely due to colonization. Monitor for now. MRSA nares positive: Bactroban 2% on anterior nares for 5 days Type II diabetes Patient states this takes 8o units of long-acting insulin the morning and and as needed short-acting She is also on Ozempic Currently we will place on insulin sliding scale Pharmacy on board. Obstructive sleep apnea Does not tolerate BiPAP On oxygen 3 to 4 L nightly Restless leg syndrome On pramipexole Hypertension Holding lisinopril metoprolol and Lasix as patient currently having DAVONTE and hypotension. Insomnia On clonidine nightly which we will hold for hypotension. Patient not taking it. Will discontinue at discharge. Hyperlipidemia Statin currently on hold due to elevated CK. Irritable bowel syndrome Hold home medications for now History of asthma Continue home inhalers and nebs as needed GERD Will place on IV. Pepcid DVT prophylaxis Heparin subcu Disposition Transfer out of ICU today Full code Time spent evaluating patient, direct bedside care, chart review, placing orders, interpretation of diagnostic studies, discussion with consultants, patient, and family members, as well as other required patient management activities is 60 minutes. Please note the above document was generated using voice recognition software. It may contain grammatical, syntax or spelling errors. Any formal questions or concerns about the content, text or information contained within the body of this dictation should be directly addressed to the provider for clarification Admission and Anticipated Discharge Date Admission Date: December 12, 2022 Subjective Patient seen and examined at bedside. She is sitting up on the chair; comfortably. She reports that she is feeling much better. Off vasopressors. Review of Systems Review of Systems: All systems reviewed & are unremarkable except as noted in Subjective Physical Exam Physical Exam: Constitutional: Awake, alert orient x3. Not in any distress Respiratory: Bilateral vesicular breath sound Cardiovascular: RRR, no murmur, no edema Vessels: no JVD or carotid bruit Chest: normal inspection of chest Abdomen: normal bowel sounds, soft, nontender, no hepatosplenomegaly. Schaefer in place draining clear urine. Musculoskeletal: no cyanosis or clubbing, extremities motor strength 5/5 Skin: no rashes, warm and dry normal turgor Neurologic: PERRL, EOMI, accommodation nl, no face palsy, no dysarthria CN's II- XI intact bilaterally and moves all extremities Psychiatric: A+Ox3, euthymic affect Results & Data Results & Data Vital Signs (Past 12 Hours) Vital Signs Temp Pulse Pulse Resp BP BP Pulse Ox 12/15/22 11:05 36.8 C 79 18 112/84 93 12/15/22 08:00 81 23 102/56 L 96 12/15/22 07:00 79 23 112/50 L 96 12/15/22 07:28 36.8 C 12/15/22 06:30 77 17 116/51 L 95 12/15/22 05:31 78 21 91/52 L 97 12/15/22 05:00 73 19 107/45 L 93 12/15/22 04:50 75 19 107/56 L 96 12/15/22 04:40 78 17 111/53 L 98 12/15/22 04:30 79 21 105/51 L 97 12/15/22 04:20 80 18 109/55 L 97 12/15/22 04:00 110 H 21 100/54 L 96 12/15/22 04:00 100/54 L 12/15/22 03:50 82 14 110/52 L 95 12/15/22 03:40 80 20 94/51 L 96 12/15/22 03:20 71 18 93/52 L 97 12/15/22 03:10 74 17 90/39 L 96 12/15/22 03:00 73 16 96/43 L 95 12/15/22 02:50 73 18 93/42 L 97 12/15/22 02:40 75 18 90/40 L 95 12/15/22 02:30 75 19 95/41 L 95 12/15/22 02:20 75 18 85/39 L 96 12/15/22 02:00 86 23 104/50 L 95 12/15/22 01:30 92 H 18 109/50 L 95 12/15/22 01:20 91 H 15 97/57 L 96 12/15/22 01:11 98 H 24 112/61 96 12/15/22 01:05 91 H 23 115/55 L 99 12/15/22 01:00 92 H 27 H 97/49 L 94 O2 Del Method 12/15/22 11:05 Room Air 12/15/22 08:00 Room Air 12/15/22 07:00 Room Air 12/15/22 07:28 12/15/22 06:30 12/15/22 05:31 12/15/22 05:00 12/15/22 04:50 12/15/22 04:40 12/15/22 04:30 12/15/22 04:20 12/15/22 04:00 12/15/22 04:00 12/15/22 03:50 12/15/22 03:40 12/15/22 03:20 12/15/22 03:10 12/15/22 03:00 12/15/22 02:50 12/15/22 02:40 12/15/22 02:30 12/15/22 02:20 12/15/22 02:00 12/15/22 01:30 12/15/22 01:20 12/15/22 01:11 12/15/22 01:05 12/15/22 01:00 Laboratory Results Laboratory Results WBC 10.82 K/ul (4.8-10.8) H 12/15/22 04:17 RBC 2.59 M/uL (4.20-5.40) L 12/15/22 04:17 Hgb 7.7 g/dl (12.0-16.0) L 12/15/22 04:17 Hct 21.6 % (37.0-47.0) L 12/15/22 04:17 MCV 83.4 fL (80.0-100.0) 12/15/22 04:17 MCH 29.7 pg (25.0-34.0) 12/15/22 04:17 MCHC 35.6 g/dL (32.0-36.0) 12/15/22 04:17 RDW Std Deviation 42.1 fL (36.4-46.3) 12/15/22 04:17 RDW Coeff of Pérez 13.8 % (11.5-14.5) 12/15/22 04:17 Plt Count 170 K/uL (130-400) 12/15/22 04:17 MPV 11.9 fL (9.4-12.4) 12/15/22 04:17 Immature Gran % (Auto) 2.6 % 12/15/22 04:17 Neut % (Auto) 82.0 % 12/15/22 04:17 Lymph % (Auto) 5.9 % 12/15/22 04:17 Centre % (Auto) 8.8 % 12/15/22 04:17 Eos % (Auto) 0.6 % 12/15/22 04:17 Baso % (Auto) 0.1 % 12/15/22 04:17 Neut # (Auto) 8.88 K/uL (1.40-6.50) H 12/15/22 04:17 Lymph # (Auto) 0.64 K/uL (1.2-3.4) L 12/15/22 04:17 Centre # (Auto) 0.95 K/uL (0.11-0.59) H 12/15/22 04:17 Eos # (Auto) 0.06 K/uL (0-0.50) 12/15/22 04:17 Baso # (Auto) 0.01 K/uL (0-0.2) 12/15/22 04:17 Immature Gran # (Auto) 0.28 K/uL (0.01-0.20) H 12/15/22 04:17 Dohle Bodies 1+ 12/13/22 05:25 RBC Morphology Unremarkable 12/15/22 04:17 Polychromasia 1+ 12/12/22 19:27 Echinocytes 2+ 12/13/22 05:25 PT 11.9 Seconds (9.0-12.0) 12/12/22 19:27 INR 1.1 (0.9-1.1) 12/12/22 19:27 APTT 24.2 Seconds (21.0-31.0) 12/12/22 19:27 PTT Ratio 0.9 12/12/22 19:27 VBG pH 7.47 (7.36-7.41) H 12/13/22 23:21 VBG pCO2 29 mmHg (38-50) L 12/13/22 23:21 VBG pO2 81 mmHg 12/13/22 23:21 VBG HCO3 21 mmol/L 12/13/22 23:21 VBG O2 Saturation 98.3 % 12/13/22 23:21 VBG Base Excess -1.5 mEq/L 12/13/22 23:21 Sodium 135 mmol/L (136-145) L 12/15/22 04:17 Potassium 3.0 mmol/L (3.5-5.1) L 12/15/22 04:17 Chloride 100 mmol/L (98-107) 12/15/22 04:17 Carbon Dioxide 21 mmol/L (21-32) 12/15/22 04:17 Anion Gap 14 (3-11) H 12/15/22 04:17 BUN 109 mg/dl (6-23) H 12/15/22 04:17 Creatinine 5.27 mg/dl (0.6-1.2) H* D 12/15/22 04:17 Est Cr Clr Drug Dosing 13.0 ml/min 12/15/22 04:17 Est GFR ( Amer) 8.9 ml/min 12/15/22 04:17 Est GFR (Non-Af Amer) 7.6 ml/min 12/15/22 04:17 BUN/Creatinine Ratio 20.7 (10-20) H 12/15/22 04:17 Glucose 138 mg/dl (70-99(Fasting)) H 12/15/22 04:17 POC Glucose 225 mg/dl (70-99) H 12/15/22 10:59 POC Glucose (other) 94 mg/dl (70-99) 12/14/22 16:26 Estimat Average Glucose 137 mg/dl 12/13/22 05:25 Hemoglobin A1c 6.4 % (4.5-5.6) H 12/13/22 05:25 Lactate 1.3 mmol/L (0.4-2.0) 12/13/22 00:27 Calcium 8.0 mg/dl (8.6-10.3) L 12/15/22 04:17 Phosphorus 5.9 mg/dl (2.5-4.9) H 12/15/22 04:17 Magnesium 1.9 mg/dl (1.7-2.4) 12/15/22 04:17 Total Bilirubin 0.7 mg/dl (0.2-1.0) 12/15/22 04:17 Direct Bilirubin 0.3 mg/dl (0-0.2) H 12/15/22 04:17 AST 45 U/L (13-39) H 12/15/22 04:17 ALT 23 U/L (7-52) 12/15/22 04:17 Alkaline Phosphatase 163 U/L (34-104) H 12/15/22 04:17 Total Creatine Kinase 721 U/L (26-192) H 12/12/22 19:27 Troponin I High Sens 146.2 pg/ml (0-14) H* 12/13/22 19:17 Troponin I High Sens Cancelled 12/13/22 19:17 Total Protein 5.6 gm/dl (6.0-8.3) L 07/22/23 04:17 Albumin 2.5 gm/dl (3.4-5.0) L 12/15/22 04:17 Lipase 187 U/L (11-82) H 12/12/22 19:27 Procalcitonin 14.61 ng/ml (0-0.5) H 12/12/22 19:27 Random Cortisol 31.95 mcg/dl 12/13/22 00:23 Urine Color Dark Yellow 12/12/22 20:33 Urine Appearance Turbid (Clear) A 12/12/22 20: Urine pH 7.0 (4.5-7.5) 12/12/22 20:33 Ur Specific [place] 1.016 (1.000-1.030) 12/12/22 20:33 Urine Protein 3+ (Negative) H 12/12/22 20:33 Urine Glucose (UA) Negative (Negative) 12/12/22 20: Urine Ketones Negative (Negative) 12/12/22 20: Urine Blood 3+ (Negative) H 12/12/22 20:33 Urine Nitrite Negative (Negative) 12/12/22 20: Urine Bilirubin Negative (Negative) 12/12/22 20:33 Urine Urobilinogen Negative (Negative) 12/12/22 20:33 Ur Leukocyte Esterase 3+ (Negative) H 12/12/22 20:33 Urine WBC (Auto) >30 /hpf (0-5) H 12/12/22 20:33 Urine RBC (Auto) 10-30 /hpf (0-4) H 12/12/22 20:33 U Hyaline Cast (Auto) 0 /lpf (0-5) 12/12/22 20:33 U Epithel Cells (Auto) >30 /lpf (0-5) H 12/12/22 20:33 Urine Bacteria (Auto) 4+ (Negative) H 12/12/22 20:33 Ur Renal Epithelial Cell 10-20 /lpf (0-5) H 12/12/22 20:33 Urine Yeast Not Reportable 12/12/22 20:33 Nasal Screen MRSA (PCR) Positive (Negative) A 12/12/22 23:00 Stl C. cayetanensis PCR Not Detected (NotDetected) 12/15/22 09:27 Stool Rotavirus A PCR Not Detected (NotDetected) 12/15/22 09:27 Stl Adenov F 40/41 PCR Not Detected (NotDetected) 12/15/22 09:27 Stool Astrovirus (PCR) Not Detected (NotDetected) 12/15/22 09:27 Stool Campylobacter PCR Not Detected (NotDetected) 12/15/22 09:27 Stl C. diff Tox B Gene Positive Cdiff Gene (Neg) H 12/15/22 09:27 Stl C.difficile Tox A&B Negative Cdiff Toxin (Negative) 12/15/22 09:27 Stool Cryptosporidium PCR Not Detected (NotDetected) 12/15/22 09:27 Stl E.coli Shiga Tox PCR Not Detected (NotDetected) 12/15/22 09:27 Stl Enterotoxigenic E PCR Not Detected (NotDetected) 12/15/22 09:27 Stool EPEC (PCR) Not Detected (NotDetected) 12/15/22 09:27 Stool EAEC (PCR) Not Detected (NotDetected) 12/15/22 09:27 Stl E. histolytica PCR Not Detected (NotDetected) 12/15/22 09:27 Stool Giardia Lamblia PCR Not Detected (NotDetected) 12/15/22 09:27 Stool Salmonella PCR Not Detected (NotDetected) 12/15/22 09:27 Stool Sapovirus (PCR) Not Detected (NotDetected) 12/15/22 09:27 Stl P. shigelloides PCR Not Detected (NotDetected) 12/15/22 09:27 Stl Shigella/EIEC PCR Not Detected (NotDetected) 12/15/22 09:27 St Y.enterocolitica PCR Not Detected (NotDetected) 12/15/22 09:27 Stool Vibrio (PCR) Not Detected (NotDetected) 12/15/22 09:27 Stl Vibrio cholerae PCR Not Detected (NotDetected) 12/15/22 09:27 Stl Norovirus GI/GII PCR Not Detected (NotDetected) 12/15/22 09:27 Adenovirus (PCR) Not Detected (NotDetected) 12/12/22 19:27 B. pertussis DNA (PCR) Not Detected (NotDetected) 12/12/22 19:27 B.parapertussis DNA PCR Not Detected (NotDetected) 12/12/22 19:27 C. pneumoniae DNA (PCR) Not Detected (NotDetected) 12/12/22 19:27 Coronavirus OC43 (PCR) Not Detected (NotDetected) 12/12/22 19:27 Coronavirus HKU1 (PCR) Not Detected (NotDetected) 12/12/22 19:27 Coronavirus 229E (PCR) Not Detected (NotDetected) 12/12/22 19:27 SARS-CoV-2 (PCR) Not Detected (NotDetected) 12/12/22 19:27 Coronavirus NL63 (PCR) Not Detected (NotDetected) 12/12/22 19:27 Enterobacterales (PCR) DETECTED (NotDetected) A 12/12/22 19:27 Human Metapneumovir PCR Not Detected (NotDetected) 12/12/22 19:27 Influenza Type A (PCR) Not Detected (NotDetected) 12/12/22 19:27 Influenza Type B (PCR) Not Detected (NotDetected) 12/12/22 19:27 K. pneumoniae group (PCR) DETECTED (NotDetected) A 12/12/22 19:27 M. pneumoniae (PCR) Not Detected (NotDetected) 12/12/22 19:27 Parainfluenza 1 (PCR) Not Detected (NotDetected) 12/12/22 19:27 Parainfluenza 2 (PCR) Not Detected (NotDetected) 12/12/22 19:27 Parainfluenza 3 (PCR) Not Detected (NotDetected) 12/12/22 19:27 Parainfluenza 4 (PCR) Not Detected (NotDetected) 12/12/22 19:27 RSV (PCR) Not Detected (NotDetected) 12/12/22 19:27 Entero/Rhino (PCR) Not Detected (NotDetected) 12/12/22 19:27 mcr-1 Colistin Res Gene PCR Not Detected (NotDetected) 12/12/22 19:27 blaIMP Car res Gene PCR Not Detected (NotDetected) 12/12/22 19:27 KPC-Carbap Res Gene PCR Not Detected (NotDetected) 07/19/23 19:27 blaNDM Car Res Gene PCR Not Detected (NotDetected) 12/12/22 19:27 OXA-48 Carbapenem Resis Gene (PCR) Not Detected (NotDetected) 12/12/22 19:27 blaVIM Car Res Gene PCR Not Detected (NotDetected) 12/12/22 19:27 CTX-M Gene Resistance (PCR) Not Detected (NotDetected) 12/12/22 19:27 Bld Cult ID Panel PCR See PCR Comment (NotDetected) 12/12/22 19:27 Impressions Abdomen/Pelvis CT 12/12/22 19:21 Exam(s): CT ABDOMEN + PELVIS Without Contrast EXAM: CT Abdomen and Pelvis Without Intravenous Contrast CLINICAL HISTORY: Reason for exam: abd apin. TECHNIQUE: Axial computed tomography images of the abdomen and pelvis without intravenous contrast. CTDI is 28.14 mGy and DLP is 1415.4 mGy-cm. Automated exposure control was utilized for the study. A dose lowering technique was utilized adhering to the principles of ALARA. COMPARISON: No relevant prior studies available. FINDINGS: Lung bases: Unremarkable. No mass. No consolidation. ABDOMEN: Liver: Unremarkable. Gallbladder and bile ducts: Cholecystectomy clips. No ductal dilation. Pancreas: Unremarkable. No ductal dilation. Spleen: Unremarkable. No splenomegaly. Adrenals: Unremarkable. No mass. Kidneys and ureters: Unremarkable. No hydronephrosis or nephrolithiasis. Stomach and bowel: Circumferential wall thickening of the descending and sigmoid colon, with mild pericolonic fat stranding, consistent with mild colitis. No obstruction. PELVIS: Appendix: No findings to suggest acute appendicitis. Bladder: Decompressed urinary bladder. No stones. Reproductive: Unremarkable as visualized. ABDOMEN and PELVIS: Intraperitoneal space: Unremarkable. No free air. No significant fluid collection. Bones/joints: Degenerative changes of the spine. No acute fracture. No dislocation. Soft tissues: Unremarkable. Vasculature: Atherosclerotic changes of the aorta. No abdominal aortic aneurysm. Lymph nodes: Unremarkable. No enlarged lymph nodes. IMPRESSION: Circumferential wall thickening of the descending and sigmoid colon, with mild pericolonic fat stranding, consistent with mild colitis. Electronically signed by: Cezar Hansen MD 12/12/22 20:14 PM Chest X-Ray 12/12/22 23:57 XR chest 1V portable CLINICAL HISTORY: new central line R IJ placement TECHNIQUE: Single frontal radiograph of the chest was obtained. Comparison: Comparison is made to chest radiograph 12/12/2022 FINDINGS: Right sided venous catheter terminates in the lower SVC. The cardiomediastinal silhouette is normal. The lungs are clear. No evidence of pleural effusion or pneumothorax. IMPRESSION: Satisfactory position of right central line without evidence of pneumothorax. ACT 112: Negative or not required by law. Electronically signed by: Liban Jessica M.D. 12/13/2022 6:58 AM
[2022-12-15] MEDS: MUPIROCIN 2% OINT 22 GM TUBE EXT SCH ×2 (12:09→20:45)
[2022-12-15] MEDS: cefTRIAXone SODIUM 2,000 MG in DEXTROSE 5% 50 ML IV SCH (13:58)
--- NOTE | 2022-12-15 15:43 | Nephrology Progress Note ---
Date of Service December 15, 2022 Assessment & Plan Admission and Anticipated Discharge Date Admission Date: December 12, 2022 Subjective Assessment & Plan (1) DAVONTE (acute kidney injury): Plan: further improving stage 3 non oliguric DAVONTE on progressive CKD 3 versus preexisting DAVONTE based on August 2022 creatinine reading of 1.7. Patient is clinically and in terms of labs from a kidney standpoint improving though still critical. Note also however her OP creatinine is increasing dramatically over the past year from 1.0 on 08/2021 [facility] labs to 1.1 in 02/2022 and 1.7 08/2022 on G readings; no definite baseline value at this time; would guess around 1.5 but this is a guess only and no way to establish it. inflamed, nephritic UA noted > could be UTI, could be interstitial, tubular, or glomerular process at this point. Likeliest w/ RTE in UA is ATN. Currently no indication for dialysis discussion improving daily continue supportive care for GN bacteremia continue strict I/O NS is for now appropriate Change lower to 75/hr. She is autodiuresing very well from post ATN diuresis--4750 ml urine. K dropped to 3 from this--agree with kcl supplement. may need more. Also check for low mag and low Phos with Autodiuresis (3) Hyponatremia: Plan: na is rising nicely with Diuresis as expected Subjective Now totally off pressors and with decent BP. made 4750 ml urine. On NS. C/o Some abd pain. Review of Systems Review of Systems: All systems reviewed & are unremarkable except as noted in Subjective Physical Exam Constitutional: well developed, well nourished, + frail appearing and cooperative; no acute distress Eyes: EOM intact bilaterally ENMT: Ears: no external ear abnormality Nose: no external nose abnormality Mouth: + dry oral mucous membranes Neck: no nuchal rigidity Respiratory: normal respiratory effort; no labored breathing and no cough Auscultation: + diminished lung sounds and + crackles (fine bibasilar) Cardiovascular: Rate/Rhythm: regular rate and regular rhythm Extremities: no edema Gastrointestinal (Abdomen): Inspection/Auscultation: normal bowel sounds Percussion/Palpation: abdomen soft; abdomen nontender Musculoskeletal: Extremities: strength 5/5 throughout Skin: no rashes, warm and dry Neurologic: pastrana, fluent speech, no tremor Psychiatric: Orientation: alert and oriented x 3 Speech: normal rate/rhythm/volume of speech some slight issues w/ recall Results & Data Vital Signs (Past 12 Hours) Vital Signs Temp Pulse Pulse Resp BP BP Pulse Ox 12/15/22 15:17 82 12/15/22 11:05 36.8 C 79 18 112/84 93 12/15/22 08:00 81 23 102/56 L 96 12/15/22 07:00 79 23 112/50 L 96 12/15/22 07:28 36.8 C 12/15/22 06:30 77 17 116/51 L 95 12/15/22 05:31 78 21 91/52 L 97 12/15/22 05:00 73 19 107/45 L 93 12/15/22 04:50 75 19 107/56 L 96 12/15/22 04:40 78 17 111/53 L 98 12/15/22 04:30 79 21 105/51 L 97 12/15/22 04:20 80 18 109/55 L 97 12/15/22 04:00 110 H 21 100/54 L 96 12/15/22 04:00 100/54 L 12/15/22 03:50 82 14 110/52 L 95 O2 Del Method 12/15/22 15:17 12/15/22 11:05 Room Air 12/15/22 08:00 Room Air 12/15/22 07:00 Room Air 12/15/22 07:28 12/15/22 06:30 12/15/22 05:31 12/15/22 05:00 12/15/22 04:50 12/15/22 04:40 12/15/22 04:30 12/15/22 04:20 12/15/22 04:00 12/15/22 04:00 12/15/22 03:50
[2022-12-16] MEDS: metroNIDAZOLE 500 MG/100 ML BAG IV SCH ×3 (06:23→21:09)
[2022-12-16 07:34] LABS: BUN Creatinine Ratio 23.8 (10-20); Calcium 7.8 mg/dl (8.6-10.3); Creatinine Clr Calc Pharmacy 16.9 ml/min; Est GFR (African American) 12.2 ml/min; Est GFR (Non-African American) 10.5 ml/min; Magnesium 1.5 mg/dl (1.7-2.4); Phosphorus 4.8 mg/dl (2.5-4.9); Potassium 3.2 mmol/L (3.5-5.1)
[2022-12-16 07:35] LABS: Hematocrit (blood only) 20.2 % (37.0-47.0); Mean Corpuscular Hemoglobin 29.9 pg (25.0-34.0); Mean Corpuscular Hgb Conc 34.7 g/dL (32.0-36.0); Mean Corpuscular Volume 86.3 fL (80.0-100.0); Mean Platelet Volume 11.2 fL (9.4-12.4); Platelet Count 185 K/uL (130-400); RDW Coefficient of Variation 13.8 % (11.5-14.5); RDW Standard Deviation 43.1 fL (36.4-46.3); Red Blood Count 2.34 M/uL (4.20-5.40); White Blood Count 8.87 K/ul (4.8-10.8)
[2022-12-16 07:46] LABS: Basophils # (auto) 0.01 K/uL (0-0.2); Basophils % (auto) 0.1 %; Eosinophils # (auto) 0.16 K/uL (0-0.50); Eosinophils % (auto) 1.8 %; Immature Granulocytes # (auto) 0.12 K/uL (0.01-0.20); Immature Granulocytes % (auto) 1.4 %; Lymphocytes # (auto) 0.74 K/uL (1.2-3.4); Lymphocytes % (auto) 8.3 %; Monocytes # (auto) 1.02 K/uL (0.11-0.59); Monocytes % (auto) 11.5 %; Neutrophils # (auto) 6.82 K/uL (1.40-6.50); Neutrophils % (auto) 76.9 %; RBC Morphology Unremarkable
[2022-12-16] MEDS: HEPARIN SOD 5,000 UNIT/0.5 ML VIAL SQ SCH (07:49)
[2022-12-16] MEDS: POTASSIUM CHLORIDE / WTR 10 MEQ/100 ML PLCT IV SCH ×4 (08:03→12:06)
[2022-12-16] MEDS ORDERED: LANTUS PER UNIT CHARGE SC SCH (09:00)
[2022-12-16] MEDS: MIDODRINE HCL 2.5 MG TAB PO SCH ×2 (09:11→12:44)
[2022-12-16] MEDS: PANTOprazole 40 MG TAB PO SCH (09:11)
[2022-12-16] MEDS: MONTELUKAST SODIUM 10 MG TABLET PO SCH (09:11)
[2022-12-16] MEDS: FLUTICASONE/VILANTEROL 100/25MCG 14 PUFFS/INHALER INH SCH (09:13)
[2022-12-16] MEDS: MUPIROCIN 2% OINT 22 GM TUBE EXT SCH ×2 (09:13→21:08)
[2022-12-16] MEDS: POTASSIUM CHLORIDE 20 MEQ/15 ML UDC PO SCH ×2 (09:13→21:07)
[2022-12-16] MEDS: INSULIN ASPART PER UNIT CHARGE SC SCH ×4 (09:26→21:08)
[2022-12-16] MEDS: LANTUS PER UNIT CHARGE SC SCH (09:27)
[2022-12-16] MEDS: ACETAMINOPHEN 325 MG TAB PO PRN (11:12)
--- NOTE | 2022-12-16 11:31 | Nephrology Progress Note ---
Date of Service December 16, 2022 Assessment & Plan Admission and Anticipated Discharge Date Admission Date: December 12, 2022 Subjective Subjective Assessment & Plan (1) DAVONTE (acute kidney injury): Plan: further improving stage 3 non oliguric DAVONTE on progressive CKD 3 versus preexisting DAVONTE based on August 2022 creatinine reading of 1.7. Patient is clinically and in terms of labs from a kidney standpoint improving though still critical. Note also however her OP creatinine is increasing dramatically over the past year from 1.0 on 08/2021 [facility] labs to 1.1 in 02/2022 and 1.7 08/2022 on [facility] readings; no definite baseline value at this time; would guess around 1.5 but this is a guess only and no way to establish it. inflamed, nephritic UA not ed > could be UTI, could be interstitial, tubular, or glomerular process at this point. Likeliest w/ RTE in UA is ATN. Currently no indication for dialysis discussion improving daily continue supportive care for GN bacteremia continue strict I/O NS is for now appropriate 75/hr. She is auto diuresing very well from post ATN diuresis kcl supplement. may need more. 2 gmiv for low mag Daily labs. No need of dialysis and now recovering really fast (3) Hyponatremia: Plan: na is rising nicely with Diuresis as expected Subjective Now totally off pressors and with decent BP. made 2750 ml urine. On NS. C/o Some abd pain. Review of Systems Review of Systems: All systems reviewed & are unremarkable except as noted in Subjective Physical Exam Constitutional: well developed, well nourished, + frail appearing and cooperative; no acute distress Eyes: EOM intact bilaterally ENMT: Ears: no external ear abnormality Nose: no external nose abnormality Mouth: + dry oral mucous membranes Neck: no nuchal rigidity Respiratory: normal respiratory effort; no labored breathing and no cough Auscultation: + diminished lung sounds and + crackles (fine bibasilar) Cardiovascular: Rate/Rhythm: regular rate and regular rhythm Extremities: no edema Gastrointestinal (Abdomen): Inspection/Auscultation: normal bowel sounds Percussion/Palpation: abdomen soft; abdomen nontender Musculoskeletal: Extremities: strength 5/5 throughout Skin: no rashes, warm and dry Neurologic: pastrana, fluent speech, no tremor Psychiatric: Orientation: alert and oriented x 3 Speech: normal rate/rhythm/volume of speech some slight issues w/ recall Results & Data Vital Signs (Past 12 Hours) Vital Signs Temp Pulse Pulse Resp BP Pulse Ox O2 Del Method 12/16/22 08:00 82 12/16/22 07:24 36.7 C 85 18 105/51 L 95 Room Air 12/16/22 03:36 36.9 C 75 18 116/69 96 Room Air 12/15/22 23:38 82 12/15/22 23:35 36.6 C 83 19 100/61 95 Room Air
[2022-12-16] MEDS: MAGNESIUM SULFATE / D5W 1 GM/100 ML BAG IV SCH ×2 (11:53→13:44)
[2022-12-16] MEDS ORDERED: SODIUM CHLORIDE 0.9% 250 ML IV PRN (12:35)
--- NOTE | 2022-12-16 12:51 | Hospitalist Progress Note ---
Date of Service December 16, 2022 Assessment & Plan (1) Severe sepsis: (2) DAVONTE (acute kidney injury): (3) Hyponatremia: (4) Metabolic acidosis: (5) Diarrhea: Plan 72-year-old female past medical history significant for type 2 diabetes, on long-term insulin, iron metabolism disease, diabetic retinopathy, hyperlipidemia, moderate persistent asthma, obstructive sleep apnea does not tolerate BiPAP nocturnal oxygen 3 to 4 L, hypertension, pulmonary hypertension, PVCs, irritable bowel syndrome, GERD, chronic kidney disease stage III, restless leg syndrome, medical marijuana use, depression, KARI, PTSD, panic disorder, history of COVID, presents with diarrhea going on for 1 week and found to have severe sepsis, DAVONTE, hyperkalemia, hyponatremia and metabolic acidosis. Septic shock on POA Urosepsis on POA On admission, hypotension and elevated lactic acid 2.7. Required vasopressors. Leukocytosis present on admission, normalized. Urinalysis suggestive of infection Blood culture on admission positive for Klebsiella pneumoniae; pansensitive Repeat blood cultures negative so far. Currently on ceftriaxone and Flagyl. Plan to treat with total duration of antibiotic for 10 days for bacteremia. Will stop Flagyl after 5 days. Repeat blood culture negative so far. DAVONTE Hyponatremia Hyperkalemia Metabolic acidosis DAVONTE likely due to septic shock Resulting in hyponatremia, hyperkalemia and metabolic acidosis, improving Urine output reassuring Presented to creatinine of 13.3, downtrending. Baseline creatinine 0.8-1 Normal saline rate decreased to 75 cc/h. Continue strict input and output monitoring. Close monitoring of serum sodium and potassium level Acute blood loss anemia Likely secondary to upper GI bleed Hemoglobin down trended from 10.7 on admission to 7 today. Fecal occult positive Started on Protonix IV twice daily N.p.o. from midnight Transfuse 1 unit of packed RBC GI consulted. Hold aspirin and heparin Elevated troponin likely due to demand ischemia from septic shock High-sensitivity troponin elevated Mostly from DAVONTE and demand ischemia from sepsis Echocardiogram showed EF of 55 to 60%; no significant valvular abnormity or wall motion abnormalities. Diarrhea Decreased appetite C. difficile colonization CT abdomen and pelvis reviewed; consistent with colitis. Possible side effect of Ozempic increased dose. C. difficile gene positive, toxin negative; likely due to colonization. Monitor for now. MRSA nares positive: Bactroban 2% on anterior nares for 5 days Type II diabetes Patient states this takes 8o units of long-acting insulin the morning and and as needed short-acting She is also on Ozempic Currently we will place on insulin sliding scale Pharmacy on board. Obstructive sleep apnea Does not tolerate BiPAP On oxygen 3 to 4 L nightly Restless leg syndrome On pramipexole Hypertension Holding lisinopril metoprolol and Lasix as patient currently having DAVONTE and hypotension. Insomnia On clonidine nightly which we will hold for hypotension. Patient not taking it. Will discontinue at discharge. Hyperlipidemia Statin currently on hold due to elevated CK. Irritable bowel syndrome Hold home medications for now History of asthma Continue home inhalers and nebs as needed GERD on Protonix DVT prophylaxis Heparin on hold due to concern for upper GI bleed. Disposition PT OT evaluation done. Recommend rehab. Case management on board. Full code Time spent evaluating patient, direct bedside care, chart review, placing orders, interpretation of diagnostic studies, discussion with consultants, patient, and family members, as well as other required patient management activities is 60 minutes. Please note the above document was generated using voice recognition software. It may contain grammatical, syntax or spelling errors. Any formal questions or concerns about the content, text or information contained within the body of this dictation should be directly addressed to the provider for clarification Admission and Anticipated Discharge Date Admission Date: December 12, 2022 Subjective Patient seen and examined at bedside. She is sitting up on the chair comfortably; not in distress. Hemodynamically stable. Afebrile Urine output reassuring. Review of Systems Review of Systems: All systems reviewed & are unremarkable except as noted in Subjective Physical Exam Physical Exam: Constitutional: Awake, alert orient x3. Not in any distress Respiratory: Bilateral vesicular breath sound Cardiovascular: RRR, no murmur, no edema Vessels: no JVD or carotid bruit Chest: normal inspection of chest Abdomen: normal bowel sounds, soft, nontender, no hepatosplenomegaly. Schaefer in place draining clear urine. Musculoskeletal: no cyanosis or clubbing, extremities motor strength 5/5 Skin: no rashes, warm and dry normal turgor Neurologic: PERRL, EOMI, accommodation nl, no face palsy, no dysarthria CN's II- XI intact bilaterally and moves all extremities Psychiatric: A+Ox3, euthymic affect Results & Data Results & Data Vital Signs (Past 12 Hours) Vital Signs Temp Pulse Pulse Resp BP Pulse Ox O2 Del Method 12/16/22 11:28 36.7 C 92 H 18 112/70 97 Room Air 12/16/22 08:00 82 12/16/22 07:24 36.7 C 85 18 105/51 L 95 Room Air 12/16/22 03:36 36.9 C 75 18 116/69 96 Room Air Laboratory Results Laboratory Results WBC 8.87 K/ul (4.8-10.8) 12/16/22 06:41 RBC 2.34 M/uL (4.20-5.40) L 12/16/22 06:41 Hgb 7.0 g/dl (12.0-16.0) L 12/16/22 06:41 Hct 20.2 % (37.0-47.0) L* 12/16/22 06:41 MCV 86.3 fL (80.0-100.0) 12/16/22 06:41 MCH 29.9 pg (25.0-34.0) 12/16/22 06:41 MCHC 34.7 g/dL (32.0-36.0) 12/16/22 06:41 RDW Std Deviation 43.1 fL (36.4-46.3) 12/16/22 06:41 RDW Coeff of Pérez 13.8 % (11.5-14.5) 12/16/22 06:41 Plt Count 185 K/uL (130-400) 12/16/22 06:41 MPV 11.2 fL (9.4-12.4) 12/16/22 06:41 Immature Gran % (Auto) 1.4 % 12/16/22 06:41 Neut % (Auto) 76.9 % 12/16/22 06:41 Lymph % (Auto) 8.3 % 12/16/22 06:41 [place] % (Auto) 11.5 % 12/16/22 06:41 Eos % (Auto) 1.8 % 12/16/22 06:41 Baso % (Auto) 0.1 % 12/16/22 06:41 Neut # (Auto) 6.82 K/uL (1.40-6.50) H 12/16/22 06:41 Lymph # (Auto) 0.74 K/uL (1.2-3.4) L 12/16/22 06:41 [place] # (Auto) 1.02 K/uL (0.11-0.59) H 12/16/22 06:41 Eos # (Auto) 0.16 K/uL (0-0.50) 12/16/22 06:41 Baso # (Auto) 0.01 K/uL (0-0.2) 12/16/22 06:41 Immature Gran # (Auto) 0.12 K/uL (0.01-0.20) 12/16/22 06:41 Dohle Bodies 1+ 12/13/22 05:25 RBC Morphology Unremarkable 12/16/22 06:41 Polychromasia 1+ 12/12/22 19:27 Echinocytes 2+ 12/13/22 05:25 PT 11.9 Seconds (9.0-12.0) 12/12/22 19:27 INR 1.1 (0.9-1.1) 12/12/22 19:27 APTT 24.2 Seconds (21.0-31.0) 12/12/22 19:27 PTT Ratio 0.9 12/12/22 19:27 VBG pH 7.47 (7.36-7.41) H 12/13/22 23:21 VBG pCO2 29 mmHg (38-50) L 12/13/22 23:21 VBG pO2 81 mmHg 12/13/22 23:21 VBG HCO3 21 mmol/L 12/13/22 23:21 VBG O2 Saturation 98.3 % 12/13/22 23:21 VBG Base Excess -1.5 mEq/L 12/13/22 23:21 Sodium 138 mmol/L (136-145) 12/16/22 06:41 Potassium 3.2 mmol/L (3.5-5.1) L 12/16/22 06:41 Chloride 105 mmol/L (98-107) 12/16/22 06:41 Carbon Dioxide 22 mmol/L (21-32) 12/16/22 06:41 Anion Gap 11 (3-11) 12/16/22 06:41 BUN 96 mg/dl (6-23) H 12/16/22 06:41 Creatinine 4.04 mg/dl (0.6-1.2) H D 12/16/22 06:41 Est Cr Clr Drug Dosing 16.9 ml/min 12/16/22 06:41 Est GFR ( Amer) 12.2 ml/min 12/16/22 06:41 Est GFR (Non-Af Amer) 10.5 ml/min 12/16/22 06:41 BUN/Creatinine Ratio 23.8 (10-20) H 12/16/22 06:41 Glucose 99 mg/dl (70-99(Fasting)) 12/16/22 06:41 POC Glucose 184 mg/dl (70-99) H 12/16/22 11:21 POC Glucose (other) 94 mg/dl (70-99) 12/14/22 16:26 Estimat Average Glucose 137 mg/dl 12/13/22 05:25 Hemoglobin A1c 6.4 % (4.5-5.6) H 12/13/22 05:25 Lactate 1.3 mmol/L (0.4-2.0) 12/13/22 00:27 Calcium 7.8 mg/dl (8.6-10.3) L 12/16/22 06:41 Phosphorus 4.8 mg/dl (2.5-4.9) D 12/16/22 06:41 Magnesium 1.5 mg/dl (1.7-2.4) L 12/16/22 06:41 Total Bilirubin 0.7 mg/dl (0.2-1.0) 12/15/22 04:17 Direct Bilirubin 0.3 mg/dl (0-0.2) H 12/15/22 04:17 AST 45 U/L (13-39) H 12/15/22 04:17 ALT 23 U/L (7-52) 12/15/22 04:17 Alkaline Phosphatase 163 U/L (34-104) H 12/15/22 04:17 Total Creatine Kinase 721 U/L (26-192) H 12/12/22 19:27 Troponin I High Sens 146.2 pg/ml (0-14) H* 12/13/22 19:17 Troponin I High Sens Cancelled 12/13/22 19:17 Total Protein 5.6 gm/dl (6.0-8.3) L 12/15/22 04:17 Albumin 2.5 gm/dl (3.4-5.0) L 12/15/22 04:17 Lipase 187 U/L (11-82) H 12/12/22 19:27 Procalcitonin 14.61 ng/ml (0-0.5) H 12/12/22 19: Random Cortisol 31.95 mcg/dl 12/13/22 00:23 Urine Color Dark Yellow 12/12/22 20:33 Urine Appearance Turbid (Clear) A 12/12/22 20:33 Urine pH 7.0 (4.5-7.5) 12/12/22 20:33 Ur Specific [place] 1.016 (1.000-1.030) 12/12/22 20:33 Urine Protein 3+ (Negative) H 12/12/22 20:33 Urine Glucose (UA) Negative (Negative) 12/12/22 20: Urine Ketones Negative (Negative) 12/12/22 20:33 Urine Blood 3+ (Negative) H 12/12/22 20:33 Urine Nitrite Negative (Negative) 12/12/22 20:33 Urine Bilirubin Negative (Negative) 12/12/22 20:33 Urine Urobilinogen Negative (Negative) 12/12/22 20:33 Ur Leukocyte Esterase 3+ (Negative) H 12/12/22 20:33 Urine WBC (Auto) >30 /hpf (0-5) H 12/12/22 20:33 Urine RBC (Auto) 10-30 /hpf (0-4) H 12/12/22 20:33 U Hyaline Cast (Auto) 0 /lpf (0-5) 12/12/22 20:33 U Epithel Cells (Auto) >30 /lpf (0-5) H 12/12/22 20:33 Urine Bacteria (Auto) 4+ (Negative) H 12/12/22 20:33 Ur Renal Epithelial Cell 10-20 /lpf (0-5) H 12/12/22 20:33 Urine Yeast Not Reportable 12/12/22 20:33 Nasal Screen MRSA (PCR) Positive (Negative) A 12/12/22 23:00 Stool Occult Bld Scrn Positive (Negative) A 12/16/22 10:45 Stl C. cayetanensis PCR Not Detected (NotDetected) 12/15/22 09:27 Stool Rotavirus A PCR Not Detected (NotDetected) 12/15/22 09:27 Stl Adenov F 40/41 PCR Not Detected (NotDetected) 12/15/22 09:27 Stool Astrovirus (PCR) Not Detected (NotDetected) 12/15/22 09:27 Stool Campylobacter PCR Not Detected (NotDetected) 12/15/22 09:27 Stl C. diff Tox B Gene Positive Cdiff Gene (Neg) H 12/15/22 09:27 Stl C.difficile Tox A&B Negative Cdiff Toxin (Negative) 12/15/22 09:27 Stool Cryptosporidium PCR Not Detected (NotDetected) 12/15/22 09:27 Stl E.coli Shiga Tox PCR Not Detected (NotDetected) 12/15/22 09:27 Stl Enterotoxigenic E PCR Not Detected (NotDetected) 12/15/22 09:27 Stool EPEC (PCR) Not Detected (NotDetected) 12/15/22 09:27 Stool EAEC (PCR) Not Detected (NotDetected) 12/15/22 09:27 Stl E. histolytica PCR Not Detected (NotDetected) 12/15/22 09:27 Stool Giardia Lamblia PCR Not Detected (NotDetected) 12/15/22 09:27 Stool Salmonella PCR Not Detected (NotDetected) 12/15/22 09:27 Stool Sapovirus (PCR) Not Detected (NotDetected) 12/15/22 09:27 Stl P. shigelloides PCR Not Detected (NotDetected) 12/15/22 09:27 Stl Shigella/EIEC PCR Not Detected (NotDetected) 12/15/22 09:27 St Y.enterocolitica PCR Not Detected (NotDetected) 12/15/22 09:27 Stool Vibrio (PCR) Not Detected (NotDetected) 12/15/22 09:27 Stl Vibrio cholerae PCR Not Detected (NotDetected) 12/15/22 09:27 Stl Norovirus GI/GII PCR Not Detected (NotDetected) 12/15/22 09:27 Adenovirus (PCR) Not Detected (NotDetected) 12/12/22 19:27 B. pertussis DNA (PCR) Not Detected (NotDetected) 12/12/22 19:27 B.parapertussis DNA PCR Not Detected (NotDetected) 12/12/22 19:27 C. pneumoniae DNA (PCR) Not Detected (NotDetected) 12/12/22 19:27 Coronavirus OC43 (PCR) Not Detected (NotDetected) 12/12/22 19:27 Coronavirus HKU1 (PCR) Not Detected (NotDetected) 12/12/22 19:27 Coronavirus 229E (PCR) Not Detected (NotDetected) 12/12/22 19:27 SARS-CoV-2 (PCR) Not Detected (NotDetected) 12/12/22 19:27 Coronavirus NL63 (PCR) Not Detected (NotDetected) 12/12/22 19:27 Enterobacterales (PCR) DETECTED (NotDetected) A 12/12/22 19:27 Human Metapneumovir PCR Not Detected (NotDetected) 12/12/22 19:27 Influenza Type A (PCR) Not Detected (NotDetected) 12/12/22 19:27 Influenza Type B (PCR) Not Detected (NotDetected) 12/12/22 19:27 K. pneumoniae group (PCR) DETECTED (NotDetected) A 12/12/22 19:27 M. pneumoniae (PCR) Not Detected (NotDetected) 12/12/22 19:27 Parainfluenza 1 (PCR) Not Detected (NotDetected) 12/12/22 19:27 Parainfluenza 2 (PCR) Not Detected (NotDetected) 12/12/22 19:27 Parainfluenza 3 (PCR) Not Detected (NotDetected) 12/12/22 19:27 Parainfluenza 4 (PCR) Not Detected (NotDetected) 12/12/22 19:27 RSV (PCR) Not Detected (NotDetected) 12/12/22 19:27 Entero/Rhino (PCR) Not Detected (NotDetected) 12/12/22 19:27 mcr-1 Colistin Res Gene PCR Not Detected (NotDetected) 12/12/22 19:27 blaIMP Car res Gene PCR Not Detected (NotDetected) 12/12/22 19:27 KPC-Carbap Res Gene PCR Not Detected (NotDetected) 12/12/22 19:27 blaNDM Car Res Gene PCR Not Detected (NotDetected) 12/12/22 19:27 OXA-48 Carbapenem Resis Gene (PCR) Not Detected (NotDetected) 12/12/22 19:27 blaVIM Car Res Gene PCR Not Detected (NotDetected) 12/12/22 19:27 CTX-M Gene Resistance (PCR) Not Detected (NotDetected) 12/12/22 19:27 Bld Cult ID Panel PCR See PCR Comment (NotDetected) 12/12/22 19:27 Impressions Abdomen/Pelvis CT 12/12/22 19:21 Exam(s): CT ABDOMEN + PELVIS Without Contrast EXAM: CT Abdomen and Pelvis Without Intravenous Contrast CLINICAL HISTORY: Reason for exam: abd apin. TECHNIQUE: Axial computed tomography images of the abdomen and pelvis without intravenous contrast. CTDI is 28.14 mGy and DLP is 1415.4 mGy-cm. Automated exposure control was utilized for the study. A dose lowering technique was utilized adhering to the principles of ALARA. COMPARISON: No relevant prior studies available. FINDINGS: Lung bases: Unremarkable. No mass. No consolidation. ABDOMEN: Liver: Unremarkable. Gallbladder and bile ducts: Cholecystectomy clips. No ductal dilation. Pancreas: Unremarkable. No ductal dilation. Spleen: Unremarkable. No splenomegaly. Adrenals: Unremarkable. No mass. Kidneys and ureters: Unremarkable. No hydronephrosis or nephrolithiasis. Stomach and bowel: Circumferential wall thickening of the descending and sigmoid colon, with mild pericolonic fat stranding, consistent with mild colitis. No obstruction. PELVIS: Appendix: No findings to suggest acute appendicitis. Bladder: Decompressed urinary bladder. No stones. Reproductive: Unremarkable as visualized. ABDOMEN and PELVIS: Intraperitoneal space: Unremarkable. No free air. No significant fluid collection. Bones/joints: Degenerative changes of the spine. No acute fracture. No dislocation. Soft tissues: Unremarkable. Vasculature: Atherosclerotic changes of the aorta. No abdominal aortic aneurysm. Lymph nodes: Unremarkable. No enlarged lymph nodes. IMPRESSION: Circumferential wall thickening of the descending and sigmoid colon, with mild pericolonic fat stranding, consistent with mild colitis. Electronically signed by: Cezar Hansen MD 12/12/22 20:14 PM Chest X-Ray 12/12/22 23:57 XR chest 1V portable CLINICAL HISTORY: new central line R IJ placement TECHNIQUE: Single frontal radiograph of the chest was obtained. Comparison: Comparison is made to chest radiograph 12/12/2022 FINDINGS: Right sided venous catheter terminates in the lower SVC. The cardiomediastinal silhouette is normal. The lungs are clear. No evidence of pleural effusion or pneumothorax. IMPRESSION: Satisfactory position of right central line without evidence of pneumothorax. ACT 112: Negative or not required by law. Electronically signed by: Liban Jessica M.D. 12/13/2022 6:58 AM
[2022-12-16] MEDS: cefTRIAXone SODIUM 2,000 MG in DEXTROSE 5% 50 ML IV SCH (16:02)
[2022-12-16 19:35] LABS: Hematocrit (blood only) 24.8 % (37.0-47.0); Hemoglobin 8.5 g/dl (12.0-16.0)
[2022-12-16] MEDS: PANTOprazole 40 MG in SYRINGE 0 ML IV SCH (21:07)
[2022-12-17] MEDS: metroNIDAZOLE 500 MG/100 ML BAG IV SCH (06:08)
[2022-12-17 06:28] LABS: Basophils # (auto) 0.02 K/uL (0-0.2); Basophils % (auto) 0.2 %; Eosinophils # (auto) 0.12 K/uL (0-0.50); Eosinophils % (auto) 1.3 %; Hemoglobin 8.6 g/dl (12.0-16.0); Immature Granulocytes # (auto) 0.15 K/uL (0.01-0.20); Immature Granulocytes % (auto) 1.6 %; Lymphocytes # (auto) 0.81 K/uL (1.2-3.4); Lymphocytes % (auto) 8.5 %; Mean Corpuscular Hemoglobin 30.1 pg (25.0-34.0); Mean Corpuscular Hgb Conc 34.4 g/dL (32.0-36.0); Mean Corpuscular Volume 87.4 fL (80.0-100.0); Mean Platelet Volume 11.2 fL (9.4-12.4); Monocytes # (auto) 0.94 K/uL (0.11-0.59); Monocytes % (auto) 9.9 %; Neutrophils # (auto) 7.47 K/uL (1.40-6.50); Neutrophils % (auto) 78.5 %; Platelet Count 204 K/uL (130-400); RDW Coefficient of Variation 14.6 % (11.5-14.5); RDW Standard Deviation 46.7 fL (36.4-46.3); Red Blood Count 2.86 M/uL (4.20-5.40); White Blood Count 9.51 K/ul (4.8-10.8)
[2022-12-17 06:52] LABS: BUN Creatinine Ratio 23.8 (10-20); Calcium 8.2 mg/dl (8.6-10.3); Creatinine Clr Calc Pharmacy 21.4 ml/min; Est GFR (African American) 16.3 ml/min; Magnesium 1.6 mg/dl (1.7-2.4); Phosphorus 3.7 mg/dl (2.5-4.9); Potassium 3.6 mmol/L (3.5-5.1)
[2022-12-17] MEDS: INSULIN ASPART PER UNIT CHARGE SC SCH ×4 (08:41→20:34)
[2022-12-17] MEDS ORDERED: LANTUS PER UNIT CHARGE SC SCH (09:00)
[2022-12-17] MEDS: SODIUM CHLORIDE 0.9% 1000ML 1,000 ML IV SCH ×2 (09:23→22:40)
[2022-12-17] MEDS: FLUTICASONE/VILANTEROL 100/25MCG 14 PUFFS/INHALER INH SCH (09:23)
[2022-12-17] MEDS: MONTELUKAST SODIUM 10 MG TABLET PO SCH (09:23)
[2022-12-17] MEDS: MUPIROCIN 2% OINT 22 GM TUBE EXT SCH ×2 (09:23→20:35)
[2022-12-17] MEDS: PANTOprazole 40 MG in SYRINGE 0 ML IV SCH ×2 (09:24→20:38)
[2022-12-17] MEDS: clonazePAM 0.5 MG TAB PO PRN ×2 (09:36→20:35)
--- NOTE | 2022-12-17 10:42 | Nephrology Progress Note ---
Date of Service December 17, 2022 Assessment & Plan (1) DAVONTE (acute kidney injury): Plan: Stage 3 non oliguric DAVONTE on progressive CKD 3 versus preexisting DAVONTE based on Ap ril 2022 creatinine reading of 1.7. Renal function is improving with a creatinine of 3.19 today from 4 yesterday. Note also however her OP creatinine is increasing dramatically over the past year from 1.0 on 08/2021 [facility] labs to 1.1 in 02/2022 and 1.7 08/2022 on [facility] readings; baseline creatinine around 1.5. inflamed, nephritic UA noted > could be UTI, could be interstitial, tubular, or glomerular process at this point. Likeliest w/ RTE in UA is ATN. -continue supportive care for GN bacteremia presume Kp> BP support, targeted abtx -continue strict I/O -Daily BMP Admission and Anticipated Discharge Date Admission Date: December 12, 2022 Subjective Seen in follow-up for acute kidney injury in setting of sepsis. She is making urine. Creatinine is improving. She denies shortness of breath. She is having an anxiety attack this morning and frustrated by the prolonged hospital stay. Review of Systems Review of Systems: All other systems were reviewed and negative except as noted in HPI Physical Exam Physical Exam: General exam: Appears comfortable, no acute distress HEENT: Pupils are equal and reactive to light Neck: No JVD, neck is supple trachea is midline Respiratory system: Clear breath sounds bilaterally. Gastrointestinal: Abdomen is soft, non distended, non tender, bowel sounds are present CVS: Regular rate and rhythm. No murmurs, rubs or gallops Musculoskeletal: No joint or muscle tenderness Extremities: Non tender, no edema, peripheral pulses are present Neuro: Oriented, no tremors, no focal neurological deficits Skin: No rashes Results & Data Vital Signs (Past 12 Hours) Vital Signs Temp Pulse Pulse Resp BP Pulse Ox O2 Del Method 12/17/22 08:00 85 12/17/22 07:36 37 C 83 18 136/81 96 Room Air 12/17/22 02:35 37.2 C 88 18 108/69 94 Room Air 12/16/22 23:16 82 12/16/22 23:01 36.6 C 83 18 144/66 H 100 Room Air Laboratory Results 12/17/22 05:31 12/17/22 12/17/22 05:31 05:31 WBC 9.51 RBC 2.86 L MCV 87.4 MCH 30.1 MCHC 34.4 RDW Std Deviation 46.7 H RDW Coeff of Pérez 14.6 H Plt Count 204 MPV 11.2 Phosphorus 3.7 D
--- NOTE | 2022-12-17 10:58 | History & Physical Bridge Note ---
Date of Service December 17, 2022 History & Physical Bridge Note I have examined the patient, reviewed the History & Physical and in the interval since the performance of the History & Physical I have noted the following changes of clinical significance: no changes noted Full consult note is pending. We were asked to do an upper endoscopy for evaluation of her recent drop in hemoglobin and hematocrit in the setting of diarrhea and heme positive stool. Patient does have a history of COPD and numerous problems to include chronic renal insufficiency. She denies having difficulty with swallowing pain with swallowing or dark sticky stools today. Plan Upper endoscopy If upper endoscopy is negative we will recommend outpatient colonoscopy.
--- NOTE | 2022-12-17 11:03 | Gastrointestinal Consultation ---
Date of Consultation December 17, 2022 Assessment & Plan (1) Diarrhea: Most recent colonoscopy was in 2020 with sigmoid diverticulosis. For now because stool studies are negative, would recommend antidiarrheal such as Imodium 3 times daily if needed. (2) GERD (gastroesophageal reflux disease): EGD today by Dr. Mora. Further recommendations to follow EGD. (3) Acute blood loss anemia: EGD today by Dr. Mora. Further recommendations to follow EGD Plan See above. Supervising Physician Co-Signing Physician Notes Asked to see the patient with a recent drop in her hemoglobin and hematocrit. Has had a prior colonoscopy which was performed in 2000 notable for diverticulosis of the colon and a poor bowel preparation. The patient notes having some pain with swallowing but denies having difficulty with swallowing fevers chills or sweats. She does note having irregular bowel movements described as diarrhea which has been ongoing for a number of years. Bright red blood per rectum or dark sticky stool today. Physical examination Elderly appearing female, no obvious distress Obese Patient had difficulty with ambulation Impression: consulted for evaluation of drop in hemoglobin and hematocrit. Gastrointestinal bleeding. We will plan to do upper endoscopy today for further assessment. If the upper endoscopy is negative the patient may benefit from outpatient colonoscopy as her prior bowel preparation 2020 was fair.: History of Present Illness Reason for Consultation: Concern for Upper GI bleed Requesting Physician: Dr. Castro Attending Physician: Sean Castro MD History of Present Illness Ms. Liane white is a 72 yr old female pt of Dr. Chris Asencio w a hx of DM-2 requiring insulin, Dm retinopathy, hyperlipidemia, asthma, KATERIN on BIPAP, Pulm HTN, CKD 3, who presented to the ED 12/12 and is being tx for acute on chronic CKD and urosepsis. GI is consulted for drop in Hb which was 10.7 on arrival and today is 8.6. She has not had gross GI bleeding. She denies abdominal pain. She has had diarrhea x about 2 wks. she is C. difficile gene positive, toxin negative other GI pathogens negative. Allergies Allergy/AdvReac Type Severity Reaction Status Date / Time bee venom protein (honey bee) Allergy Severe ANAPHYLAXIS Verified 09/14/21 17:11 iodine Allergy Severe ANAPHYLAXIS Verified 09/14/21 17:11 -SHELLFISH colestipol Allergy Unknown RASH Verified 09/14/21 17:11 doxycycline Allergy Unknown HIVES Verified 09/14/21 17:11 glimepiride Allergy Unknown RASH Verified 09/14/21 17:11 glyburide Allergy Unknown RASH Verified 09/14/21 17:11 metformin Allergy Unknown RASH Verified 09/14/21 17:11 ondansetron [From Zofran] Allergy Unknown Unknown Verified 09/14/21 17:35 pioglitazone Allergy Unknown RASH Verified 09/14/21 17:11 rosuvastatin Allergy Unknown ITCHING Verified 09/14/21 17:11 RASH shellfish derived Allergy Unknown SWELLING Verified 09/14/21 17:11 OF FACE AND MOUTH tramadol Allergy Unknown EARS RING, Verified 09/14/21 17:11 FUZZY VISION amitriptyline [From Elavil] AdvReac Unknown WT GAIN Verified 09/14/21 17:11 diphenhydramine AdvReac Unknown HEAD GOES Verified 09/14/21 17:11 CRAZY-RINGING EARS,STRANGE hydroxyzine AdvReac Unknown MENTAL Verified 09/14/21 17:11 CONFUSION pseudoephedrine AdvReac Unknown JITTERINESS Verified 09/14/21 17:11 sulfamethoxazole AdvReac Unknown Unknown Verified 09/14/21 17:35 [From Bactrim] trimethoprim [From Bactrim] AdvReac Unknown Unknown Verified 09/14/21 17:35 Home Medications Medication Instructions Recorded Confirmed Type diphenoxylate-atropine 2.5 2 tab PO Q6 PRN Diarrhea 05/03/18 12/12/22 History mg-0.025 mg tablet furosemide 40 mg tablet 40 mg PO DAILY 05/03/18 12/12/22 History methscopolamine 2.5 mg tablet 2.5 mg PO TID PRN Cramps 05/03/18 12/12/22 History omeprazole 20 mg capsule,delayed 20 mg PO QAM 05/03/18 12/12/22 History release diclofenac sodium 1 % topical gel 2 g topical QID 07/22/18 12/12/22 History fluticasone furoate 100 1 inh inhalation QAM 07/22/18 12/12/22 History mcg-vilanterol 25 mcg/dose inhalation powder (Breo Ellipta) ondansetron 4 mg disintegrating 4 mg PO Q6H PRN Nausea 07/22/18 12/12/22 History tablet albuterol sulfate 2.5 mg/3 mL 2.5 mg continuous nebulization Q4 09/14/21 12/12/22 History (0.083 %) solution for nebulization PRN Shortness Of Breath Or Wheezing albuterol sulfate 90 mcg/actuation 1 - 2 inh inhalation QID PRN 09/14/21 12/12/22 History aerosol inhaler (Proventil HFA) Shortness Of Breath Or Wheezing alosetron 1 mg tablet 1 mg PO BID 09/14/21 12/12/22 History aspirin 81 mg chewable tablet 81 mg PO DAILY 09/14/21 12/12/22 History atorvastatin 40 mg tablet 40 mg PO QAM 09/14/21 12/12/22 History clonazepam 0.5 mg tablet 0.5 mg PO TID PRN Anxiety 09/14/21 12/12/22 History doxepin 100 mg capsule 100 mg PO HS 09/14/21 12/12/22 History famotidine 40 mg tablet 40 mg PO DAILY 09/14/21 12/12/22 History fluticasone propionate 50 2 spray intranasal BID 09/14/21 12/12/22 History mcg/actuation nasal spray,suspension lisinopril 20 mg tablet 20 mg PO QAM 09/14/21 12/12/22 History metoprolol succinate 25 mg 25 mg PO QAM 09/14/21 12/12/22 History tablet,extended release 24 hr montelukast 10 mg tablet 10 mg PO QAM 09/14/21 12/12/22 History pramipexole 1 mg tablet 1 mg PO HS 09/14/21 12/12/22 History prochlorperazine maleate 10 mg 10 mg PO Q6H PRN Nausea 09/14/21 12/12/22 History tablet (Compazine) clonidine HCl 0.1 mg tablet 0.1 mg PO BID 12/12/22 12/12/22 History ferrous gluconate 240 mg (27 mg 240 mg PO DAILY 12/12/22 12/12/22 History iron) tablet (Ferate) metoprolol succinate 25 mg 12.5 mg PO HS 12/12/22 12/12/22 History tablet,extended release 24 hr semaglutide 2 mg/dose (8 mg/3 mL) 0.75 mg subcut WK 12/12/22 12/12/22 History subcutaneous pen injector (Ozempic) Patient History Medical History Anxiety Asthma moderate persistent Chronic back pain LOWER CKD (chronic kidney disease) stage 3, GFR 30-59 ml/min 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 Depression Diverticular disease DJD (degenerative joint disease), cervical DM type 2 (diabetes mellitus, type 2) IDDM Dyslipidemia GERD (gastroesophageal reflux disease) GERD (gastroesophageal reflux disease) CONTROLLED History of opioid abuse PER RECORDS Hypertension IBS (irritable bowel syndrome) Migraine Neuropathy DIABETIC NEUROPATHY- FEET KATERIN (obstructive sleep apnea) Osteoarthritis Osteoporosis Panic disorder Pulmonary HTN RLS (restless legs syndrome) Temporomandibular joint disorder + CLICKING; NO LOCKING Venous insufficiency Surgical History H/O arthroscopic knee surgery LEFT H/O colonoscopy History of colonoscopy 02/2021, sigmoid diverticulosis, poor prep History of difficult intubation RIGHT SHOULDER SCOPE WITH RCR= 06/29/16= GLIDESCOPE #3 "GOOD VIEW", ETT 7 AT [facility] History of esophagogastroduodenoscopy (EGD) History of repair of rotator cuff B/L History of total knee replacement LEFT Perianal abscess S/P DRAINAGE S/P cholecystectomy S/P hysterectomy Family History Sister Family history of diabetes mellitus Family hx of colon cancer Brother Family history of diabetes mellitus Grandmother (Maternal) Family history of diabetes mellitus Family/Other Family history of diabetes mellitus Other Diabetes Social History Smoking Status: Never smoker Second Hand Exposure: No; Do You Dip or Chew Tobacco: No; Hx Alcohol Use: No Hx Substance Use: No Preferred Language: [place] Communication Ability: Effective [employer] Required: No Beliefs That Will Affect Care: None marital status: Current Living Situation: Spouse Current Living Situation Comment: home current occupational status: retired Other Information That Helps Us Care for You: No Feels Safe at Home: Yes Safety Concerns: Feels Safe At This Time Assistive Devices: Cane, Oxygen - at Night, Oxygen - Continuous and Walker Review of Systems Review of Systems: ROS: Gen: Weakness, improving Eyes: No eye redness, or pain, no recent vision changes Resp: No SOB, no cough Cardio: No palpitations/irregular beats, no chest pain GI: As per HPI otherwise negative : Denies pain on urination Skin: No jaundice, itching or new rashes Physical Exam Constitutional: well developed, well nourished and + overweight; no acute distress Eyes: PERRL, conjunctivae normal, anicteric sclerae ENMT: external ear and nose normal, oropharynx normal Neck: trachea midline, no thyromegaly Respiratory: normal respiratory effort, lungs clear to auscultation Cardiovascular: Rate/Rhythm: regular rate and regular rhythm Gastrointestinal (Abdomen): normal bowel sounds, soft, nontender, no hepatosplenomegaly Skin: no rashes, warm and dry Psychiatric: A+Ox3, euthymic affect Results & Data Vital Signs (Past 12 Hours) Vital Signs Temp Pulse Pulse Resp BP Pulse Ox O2 Del Method 12/17/22 08:00 85 12/17/22 07:36 37 C 83 18 136/81 96 Room Air 12/17/22 02:35 37.2 C 88 18 108/69 94 Room Air 12/16/22 23:16 82 12/16/22 23:01 36.6 C 83 18 144/66 H 100 Room Air Laboratory Results WBC 9, Hb 8.6, HCT 25, PLT 204, NA 138, K3.6, CL 107, CO2 27, BUN 96, CR 3.19, glucose 109, magnesium one-point Diagnostic Findings CTAP 12/11/22: Circumferential wall thickening of the descending and sigmoid colon, with mild pericolonic fat stranding, consistent with mild colitis.
--- NOTE | 2022-12-17 11:07 | Anesthesiology Consultation ---
Date of Service December 17, 2022 Assessment & Plan Chart Review Chart Review: Acceptable Risk for Surgery, Patient NOT seen in Pre Admission Testing and life agent initiated Consults Requested none History Surgery Operation Date: 12/17/22 17:15 Proposed Procedures p Esophagogastroduodenoscopy Dr Morgan Mora, Height/Weight Height: 5 ft 9 in Weight: 107.5 kg Allergies Allergy/AdvReac Type Severity Reaction Status Date / Time bee venom protein (honey bee) Allergy Severe ANAPHYLAXIS Verified 09/14/21 17:11 iodine Allergy Severe ANAPHYLAXIS Verified 09/14/21 17:11 -SHELLFISH colestipol Allergy Unknown RASH Verified 09/14/21 17:11 doxycycline Allergy Unknown HIVES Verified 09/14/21 17:11 glimepiride Allergy Unknown RASH Verified 09/14/21 17:11 glyburide Allergy Unknown RASH Verified 09/14/21 17:11 metformin Allergy Unknown RASH Verified 09/14/21 17:11 ondansetron [From Zofran] Allergy Unknown Unknown Verified 09/14/21 17:35 pioglitazone Allergy Unknown RASH Verified 09/14/21 17:11 rosuvastatin Allergy Unknown ITCHING Verified 09/14/21 17:11 RASH shellfish derived Allergy Unknown SWELLING Verified 09/14/21 17:11 OF FACE AND MOUTH tramadol Allergy Unknown EARS RING, Verified 09/14/21 17:11 FUZZY VISION amitriptyline [From Elavil] AdvReac Unknown WT GAIN Verified 09/14/21 17:11 diphenhydramine AdvReac Unknown HEAD GOES Verified 09/14/21 17:11 CRAZY-RINGING EARS,STRANGE hydroxyzine AdvReac Unknown MENTAL Verified 09/14/21 17:11 CONFUSION pseudoephedrine AdvReac Unknown JITTERINESS Verified 09/14/21 17:11 sulfamethoxazole AdvReac Unknown Unknown Verified 09/14/21 17:35 [From Bactrim] trimethoprim [From Bactrim] AdvReac Unknown Unknown Verified 09/14/21 17:35 Medications Home Medications Medication Instructions Recorded Confirmed Last Taken diphenoxylate-atropine 2.5 2 tab PO Q6 PRN Diarrhea 05/03/18 12/12/22 09/14/21 08:00 mg-0.025 mg tablet furosemide 40 mg tablet 40 mg PO DAILY 05/03/18 12/12/22 09/14/21 08:00 methscopolamine 2.5 mg tablet 2.5 mg PO TID PRN Cramps 05/03/18 12/12/22 08/25/18 20:00 omeprazole 20 mg capsule,delayed 20 mg PO QAM 05/03/18 12/12/22 09/14/21 08:00 release diclofenac sodium 1 % topical gel 2 g topical QID 07/22/18 12/12/22 08/23/17 fluticasone furoate 100 1 inh inhalation QAM 07/22/18 12/12/22 09/14/21 08:00 mcg-vilanterol 25 mcg/dose inhalation powder (Breo Ellipta) ondansetron 4 mg disintegrating 4 mg PO Q6H PRN Nausea 07/22/18 12/12/22 Unknown tablet albuterol sulfate 2.5 mg/3 mL 2.5 mg continuous nebulization Q4 09/14/2109/14/21 08:00 (0.083 %) solution for nebulization PRN Shortness Of Breath Or Wheezing albuterol sulfate 90 mcg/actuation 1 - 2 inh inhalation QID PRN 09/14/21 12/12/22 Unknown aerosol inhaler (Proventil HFA) Shortness Of Breath Or Wheezing alosetron 1 mg tablet 1 mg PO BID 09/14/21 12/12/22 09/14/21 08:00 aspirin 81 mg chewable tablet 81 mg PO DAILY 09/14/21 12/12/22 09/14/21 08:00 atorvastatin 40 mg tablet 40 mg PO QAM 09/14/21 12/12/22 Unknown clonazepam 0.5 mg tablet 0.5 mg PO TID PRN Anxiety 09/14/21 12/12/22 Unknown doxepin 100 mg capsule 100 mg PO HS 09/14/21 12/12/22 Unknown famotidine 40 mg tablet 40 mg PO DAILY 09/14/21 12/12/22 Unknown fluticasone propionate 50 2 spray intranasal BID 09/14/21 12/12/22 09/14/21 08:00 mcg/actuation nasal spray,suspension lisinopril 20 mg tablet 20 mg PO QAM 09/14/21 12/12/22 Unknown metoprolol succinate 25 mg 25 mg PO QAM 09/14/21 12/12/22 Unknown tablet,extended release 24 hr montelukast 10 mg tablet 10 mg PO QAM 09/14/21 12/12/22 09/14/21 08:00 pramipexole 1 mg tablet 1 mg PO HS 09/14/21 12/12/22 Unknown prochlorperazine maleate 10 mg 10 mg PO Q6H PRN Nausea 09/14/21 12/12/22 Unknown tablet (Compazine) clonidine HCl 0.1 mg tablet 0.1 mg PO BID 12/12/22 12/12/22 Unknown ferrous gluconate 240 mg (27 mg 240 mg PO DAILY 12/12/22 12/12/22 Unknown iron) tablet (Ferate) metoprolol succinate 25 mg 12.5 mg PO HS 12/12/22 12/12/22 Unknown tablet,extended release 24 hr semaglutide 2 mg/dose (8 mg/3 mL) 0.75 mg subcut WK 12/12/22 12/12/22 Unknown subcutaneous pen injector (Ozempic) Active Medications Generic Name Dose Route Start Last Admin Trade Name Freq PRN Reason Stop Dose Admin Acetaminophen 650 mg 12/13/22 16:40 12/16/22 11:12 Acetaminophen 325 Mg Tab PO 01/12/23 16:39 650 mg Q4H PRN Administration Fever/Mild Pain (Pain 1,2,3) Albuterol 1 - 2 puffs 12/12/22 22:32 12/13/22 23:42 Albuterol Hfa 8 Gm Inhaler INH 01/11/23 22:31 2 puffs QID PRN Administration Shortness Of Breath Or Wheezin Aspirin 81 mg 12/13/22 09:00 12/15/22 07:52 Aspirin 81 Mg Ectab PO 01/12/23 08:59 81 mg DAILY FRANCESCO Administration Clonazepam 0.5 mg 12/17/22 09:22 12/17/22 09:36 Clonazepam 0.5 Mg Tab PO 01/16/23 09:21 0.5 mg TID PRN Administration Anxiety Fluticasone/Vilanterol 1 puffs 12/13/22 09:00 12/17/22 09:23 Fluticasone/Vilanterol 100/25mcg 14 Puffs/Inhaler INH 01/12/23 08:59 1 puffs QAM FRANCESCO Administration Heparin Sodium (Porcine) 5,000 units 12/12/22 22:32 12/16/22 07:49 Heparin Sod 5,000 Unit/0.5 Ml Vial SQ 01/11/23 22:31 Not Given Q8 FRANCESCO Ceftriaxone Sodium 2,000 mg/ 70 mls @ 140 mls/hr 12/13/22 14:00 12/16/22 16: 32 Dextrose IV 12/27/22 13:59 Infused Q24H FRANCESCO Infusion Metronidazole 500 mg in 100 mls @ 100 mls/hr 12/13/22 14:00 12/17/22 07:07 Flagyl IV 12/27/22 13:59 Infused Q8 FRANCESCO Infusion Pantoprazole Sodium 40 mg/ 10 mls @ 5 mls/min 12/16/22 21:00 12/17/22 09:24 Syringe IV 01/15/23 20:59 5 mls/min BID FRANCESCO Administration Sodium Chloride 1,000 mls @ 75 mls/hr 12/17/22 08:00 12/17/22 09:23 Nss 1000ml IV 01/16/23 07:59 75 mls/hr .[id number] FRANCESCO Administration Insulin Aspart 0 units 12/16/22 16:30 12/16/22 21:08 Insulin Aspart Per Unit Charge RI 01/15/23 16:29 2 units DAILY@1130,1630,2100 [facility] Administration Protocol Insulin Aspart 0 units 12/17/22 07:30 12/17/22 08:41 Insulin Aspart Per Unit Charge RI 01/16/23 07:29 Not Given DAILY@0730 [facility] Protocol Insulin Glargine 25 units 12/16/22 09:00 12/16/22 09:27 Lantus Per Unit Charge RI 01/15/23 08:59 25 units DAILY FRANCESCO Administration Protocol Montelukast Sodium 10 mg 12/13/22 09:00 12/17/22 09:23 Montelukast Sodium 10 Mg Tablet PO 01/12/23 08:59 10 mg QAM FRANCESCO Administration Mupirocin 1 appln 12/15/22 12:00 12/17/22 09:23 Mupirocin 2% Oint 22 Gm Tube EXT 12/20/22 11:59 1 appln BID FRANCESCO Administration NPO Date Last Intake of Fluids: 12/17/22 Time Last Intake of Fluids: 09:00 Date Last Intake of Solids: 12/16/22 Time Last Intake of Solids: 18:00 Past Medical History Medical History Anxiety Asthma moderate persistent Chronic back pain LOWER CKD (chronic kidney disease) stage 3, GFR 30-59 ml/min 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 Depression Diverticular disease DJD (degenerative joint disease), cervical DM type 2 (diabetes mellitus, type 2) IDDM Dyslipidemia GERD (gastroesophageal reflux disease) GERD (gastroesophageal reflux disease) CONTROLLED History of opioid abuse PER RECORDS Hypertension IBS (irritable bowel syndrome) Migraine Neuropathy DIABETIC NEUROPATHY- FEET KATERIN (obstructive sleep apnea) Osteoarthritis Osteoporosis Panic disorder Pulmonary HTN RLS (restless legs syndrome) Temporomandibular joint disorder + CLICKING; NO LOCKING Venous insufficiency Past Family History Family History Sister Family history of diabetes mellitus Family hx of colon cancer Brother Family history of diabetes mellitus Grandmother (Maternal) Family history of diabetes mellitus Family/Other Family history of diabetes mellitus Other Diabetes Past Surgical History Surgical History H/O arthroscopic knee surgery LEFT H/O colonoscopy History of colonoscopy 02/2021, sigmoid diverticulosis, poor prep History of difficult intubation RIGHT SHOULDER SCOPE WITH RCR= 06/29/16= GLIDESCOPE #3 "GOOD VIEW", ETT 7 AT [facility] History of esophagogastroduodenoscopy (EGD) History of repair of rotator cuff B/L History of total knee replacement LEFT Perianal abscess S/P DRAINAGE S/P cholecystectomy S/P hysterectomy Social History Smoking Status: Never smoker Do You Dip or Chew Tobacco: No Hx Alcohol Use: No Hx Substance Use: No substance use type: does not use Physical Exam Vital Signs Last Vital Signs Temp 37 C 12/17/22 10:54 Pulse 103 H 12/17/22 10:54 Resp 18 12/17/22 10:54 BP 121/61 12/17/22 10:54 Pulse Ox 98 12/17/22 10:54 O2 Del Method Room Air 12/17/22 10:54 Testing Laboratory Results 12/17/22 05:31 12/17/22 05:31 PT 11.9 Seconds (9.0-12.0) 12/12/22 19: INR 1.1 (0.9-1.1) 12/12/22 19: APTT 24.2 Seconds (21.0-31.0) 12/12/22 19: Hemoglobin A1c 6.4 % (4.5-5.6) H 12/13/22 05:25 Urine Color Dark Yellow 12/12/22 20:33 Urine Appearance Turbid (Clear) A 12/12/22 20:33 Urine pH 7.0 (4.5-7.5) 12/12/22 20:33 Ur Specific [place] 1.016 (1.000-1.030) 12/12/22 20:33 Urine Protein 3+ (Negative) H 12/12/22 20:33 Urine Glucose (UA) Negative (Negative) 12/12/22 20: Urine Ketones Negative (Negative) 12/12/22 20:33 Urine Nitrite Negative (Negative) 12/12/22 20:33 Ur Leukocyte Esterase 3+ (Negative) H 12/12/22 20:33 Urine WBC (Auto) >30 /hpf (0-5) H 12/12/22 20:33 Urine RBC (Auto) 10-30 /hpf (0-4) H 12/12/22 20:33 U Hyaline Cast (Auto) 0 /lpf (0-5) 12/12/22 20:33 U Epithel Cells (Auto) >30 /lpf (0-5) H 12/12/22 20:33 Urine Bacteria (Auto) 4+ (Negative) H 12/12/22 20:33 Blood Type B Positive 12/16/22 13:02 Antibody Screen NEGATIVE 12/16/22 13:02 12/14/22 08:53 Aerobic Blood Culture - Preliminary Blood No growth in Aerobic bottle after 48 hours. Anaerobic Blood Culture - Preliminary No growth in Anaerobic bottle after 48 hours. 12/14/22 08:53 Aerobic Blood Culture - Preliminary Blood No growth in Aerobic bottle after 48 hours. Anaerobic Blood Culture - Preliminary No growth in Anaerobic bottle after 48 hours. 12/12/22 19:46 Aerobic Blood Culture - Final Blood Klebsiella pneumoniae Anaerobic Blood Culture - Final Klebsiella pneumoniae 12/12/22 19:27 Aerobic Blood Culture - Final Blood Klebsiella pneumoniae Anaerobic Blood Culture - Final Klebsiella pneumoniae 12/12/22 20:33 Urine Culture - Final Urine,Clean Catch Klebsiella pneumoniae 12/17/22 12/17/22 08:49 06:06 POC Glucose 124 H 108 H Electrocardiogram Date: 12/13/22 :[id number] 13-DEC-2022 06:15:57 [facility] ROUTINE RETRIEVAL Normal sinus rhythm Normal ECG When compared with ECG of 12-DEC-2022 19:27, (unconfirmed) Non specific T wave abnormality has replaced inverted T waves in Inferior leads Confirmed by Lasha Adair ([id number]) on 12/13/2022 2:35:55 PM 25mm/s10mm/[id number]: [id number] by: REFERRED SELF Confirmed By: Lasha Moura. rate 91 BPM NJ interval 162 ms QRS duration 90 ms Chest X-Ray Date: 12/12/22 XR chest 1V portable CLINICAL HISTORY: new central line R IJ placement TECHNIQUE: Single frontal radiograph of the chest was obtained. Comparison: Comparison is made to chest radiograph 12/12/2022 FINDINGS: Right sided venous catheter terminates in the lower SVC. The cardiomediastinal silhouette is normal. The lungs are clear. No evidence of pleural effusion or pneumothorax. IMPRESSION: Satisfactory position of right central line without evidence of pneumothorax. Echocardiogram Date: 12/13/22 EF: 55-60% LV Function: normal RWMA: + none Other Findings: + LVH (borderline) Valvular Disease: + MR (trace)
[2022-12-17] MEDS ORDERED: LIDOCAINE 2% 2 ML VIAL/AMP(20MG/ML) INFIL ONE (11:18)
[2022-12-17] MEDS ORDERED: PROPOFOL IV EMULSION 10 MG/ML 20 ML VIAL IV ONE ×2 (11:18→11:35)
--- NOTE | 2022-12-17 11:40 | Communication Note ---
Date of Service: December 17, 2022 The patient underwent upper endoscopy today without any complications. The patient was found to have what appears to be a severe Harriet esophagitis. The re was also evidence of mild gastritis, biopsies were obtained from the stomach and esophagus. Recommendations Proceed with Diflucan 200 mg day 1 and then 100 mg daily for 14 days OP colonoscopy to be scheduled Advance diet as tolerated Please call with any questions or concerns
--- NOTE | 2022-12-17 11:45 | GI REPORT ---
Patient Name: Liane Alejandre Procedure Date: 12/17/2022 11:08 AM Date of : 1950 Admit Type: Inpatient Age: 72 Gender: Female Attending MD: Jennifer Mora DO, Procedure: Upper GI endoscopy Providers: Jennifer Mora DO Referring MD: Sean Castro Md Indications: Iron deficiency anemia secondary to chronic blood loss, Diarrhea Medicines: Monitored Anesthesia Care Complications: No immediate complications. Estimated blood loss: Minimal. Estimated Blood Loss: Estimated blood loss was minimal. Procedure: Pre-Anesthesia Assessment: - Prior to the procedure, a History and Physical was performed, and patient medications, allergies and sensitivities were reviewed. The patient's tolerance of previous anesthesia was reviewed. - The risks and benefits of the procedure and the sedation options and risks were discussed with the patient. All questions were answered and informed consent was obtained. - Patient identification and proposed procedure were verified prior to the procedure by the physician, the nurse and the fitting room supervisor. The procedure was verified in the procedure room. - Pre-procedure physical examination revealed no contraindications to sedation. - ASA Grade Assessment: III - A patient with severe systemic disease. - After reviewing the risks and benefits, the patient was deemed in satisfactory condition to undergo the procedure. - The anesthesia plan was to use monitored anesthesia care (MAC). - Immediately prior to administration of medications, the patient was re-assessed for adequacy to receive sedatives. - The heart rate, respiratory rate, oxygen saturations, blood pressure, adequacy of pulmonary ventilation, and response to care were monitored throughout the procedure. - The physical status of the patient was re-assessed after the procedure. After obtaining informed consent, the endoscope was passed under direct vision. Throughout the procedure, the patient's blood pressure, pulse, and oxygen saturations were monitored continuously. The Endoscope was introduced through the mouth, and advanced to the third part of duodenum. The upper GI endoscopy was accomplished without difficulty. The patient tolerated the procedure well. Findings: Diffuse, white plaques were found in the entire esophagus. Cells for cytology were obtained by brushing. Biopsies were taken with a cold forceps for histology. The pathology specimen was placed into Bottle C. Estimated blood loss was minimal. Diffuse moderate inflammation characterized by congestion (edema) and granularity was found in the entire examined stomach. Biopsies were taken with a cold forceps for histology. The pathology specimen was placed into Bottle B. Estimated blood loss was minimal. The examined duodenum was normal. Biopsies were taken with a cold forceps for histology. The pathology specimen was placed into Bottle A. Estimated blood loss was minimal. Impression: - Esophageal plaques were found, suspicious for candidiasis. Cells for cytology obtained. Biopsied. - Diffuse gastritis, likely medication related. Biopsied. - Normal examined duodenum. Biopsied. Recommendation: - Return patient to [facility] for [facility] care. - Advance diet as tolerated. - Diflucan (fluconazole) 200 mg day 1 then 100 mg PO daily for 2 weeks. - Perform a colonoscopy at appointment to be scheduled (outpatient with a 2 day bowel preparation). Jennifer Mora D.O. Jennifer Mora, DO 12/17/2022 11:45:17 AM This report has been signed electronically. Note Initiated On: 12/17/2022 11:08 AM Number of Addenda: 0 I attest to the content of the Intraoperative Record and orders documented therein, exceptions below {[id number]}
[2022-12-17] MEDS ORDERED: FLUCONAZOLE 100 MG TAB PO ONE ×2 (11:48→14:15)
--- NOTE | 2022-12-17 12:29 | Hospitalist Progress Note ---
Date of Service December 17, 2022 Assessment & Plan (1) Severe sepsis: (2) DAVONTE (acute kidney injury): (3) Hyponatremia: (4) Metabolic acidosis: (5) Diarrhea: Plan 72-year-old female past medical history significant for type 2 diabetes, on long-term insulin, iron metabolism disease, diabetic retinopathy, hyperlipidemia, moderate persistent asthma, obstructive sleep apnea does not tolerate BiPAP nocturnal oxygen 3 to 4 L, hypertension, pulmonary hypertension, PVCs, irritable bowel syndrome, GERD, chronic kidney disease stage III, restless leg syndrome, medical marijuana use, depression, KARI, PTSD, panic disorder, history of COVID, presents with diarrhea going on for 1 week and found to have severe sepsis, DAVONTE, hyperkalemia, hyponatremia and metabolic acidosis. Septic shock on POA Urosepsis on POA On admission, hypotension and elevated lactic acid 2.7. Required vasopressors. Leukocytosis present on admission, normalized. Urinalysis suggestive of infection Blood culture on admission positive for Klebsiella pneumoniae; pansensitive Repeat blood cultures negative so far. Currently on ceftriaxone and Flagyl. Plan to treat with total duration of antibiotic for 10 days for bacteremia. Will stop Flagyl after 5 days. Repeat blood culture negative so far. DAVONTE Hyponatremia Hyperkalemia Metabolic acidosis DAVONTE likely due to septic shock Resulting in hyponatremia, hyperkalemia and metabolic acidosis, improving Urine output reassuring Presented to creatinine of 13.3, downtrending. Baseline creatinine 0.8-1 Normal saline rate decreased to 75 cc/h. Continue strict input and output monitoring. Close monitoring of serum sodium and potassium level Acute blood loss anemia Likely secondary to upper GI bleed Esophageal candidiasis Diffuse gastritis Hemoglobin down trended from 10.7 on admission to 7 on 12/16/2022 Transfuse 1 unit of packed RBC Fecal occult positive Underwent endoscopy on 12/17esophageal plaques found suspicious for candidiasis. Diffuse gastritis. Started on Diflucan as per recommendation. Plan for colonoscopy as outpatient. Continue Protonix twice daily. Elevated troponin likely due to demand ischemia from septic shock High-sensitivity troponin elevated Mostly from DAVONTE and demand ischemia from sepsis Echocardiogram showed EF of 55 to 60%; no significant valvular abnormity or wall motion abnormalities. Diarrhea Decreased appetite C. difficile colonization CT abdomen and pelvis reviewed; consistent with colitis. Possible side effect of Ozempic increased dose. C. difficile gene positive, toxin negative; likely due to colonization. Monitor for now. MRSA nares positive: Bactroban 2% on anterior nares for 5 days Type II diabetes Patient states this takes 8o units of long-acting insulin the morning and and as needed short-acting She is also on Ozempic Currently we will place on insulin sliding scale Pharmacy on board. Obstructive sleep apnea Does not tolerate BiPAP On oxygen 3 to 4 L nightly Restless leg syndrome On pramipexole Hypertension Holding lisinopril metoprolol and Lasix as patient currently having DAVONTE and hypotension. Anxiety Resume Klonopin. Insomnia On clonidine nightly. Patient not taking it. Will discontinue at discharge. Hyperlipidemia Statin currently on hold due to elevated CK. Irritable bowel syndrome Hold home medications for now History of asthma Continue home inhalers and nebs as needed GERD on Protonix DVT prophylaxis Heparin . Disposition PT OT evaluation done. Recommend rehab. Case management on board. DNR/DNI Time spent evaluating patient, direct bedside care, chart review, placing orders, interpretation of diagnostic studies, discussion with consultants, patient, and family members, as well as other required patient management activities is 60 minutes. Please note the above document was generated using voice recognition software. It may contain grammatical, syntax or spelling errors. Any formal questions or concerns about the content, text or information contained within the body of this dictation should be directly addressed to the provider for clarification Admission and Anticipated Discharge Date Admission Date: December 12, 2022 Subjective Patient seen and examined at bedside. She feels anxious. No overnight events. Urine output of 2400 cc. Review of Systems Review of Systems: All systems reviewed & are unremarkable except as noted in Subjective Physical Exam Physical Exam: Constitutional: Awake, alert orient x3. Not in any distress Respiratory: Bilateral vesicular breath sound Cardiovascular: RRR, no murmur, no edema Vessels: no JVD or carotid bruit Chest: normal inspection of chest Abdomen: normal bowel sounds, soft, nontender, no hepatosplenomegaly. Musculoskeletal: no cyanosis or clubbing, extremities motor strength 5/5 Skin: no rashes, warm and dry normal turgor Neurologic: PERRL, EOMI, accommodation nl, no face palsy, no dysarthria CN's II- XI intact bilaterally and moves all extremities Psychiatric: A+Ox3, euthymic affect Results & Data Results & Data Vital Signs (Past 12 Hours) Vital Signs Temp Pulse Pulse Pulse Resp BP Pulse Ox 12/17/22 12:05 88 16 139/73 100 12/17/22 11:50 89 16 135/63 100 12/17/22 11:35 85 16 110/49 L 100 12/17/22 10:54 37 C 103 H 18 121/61 98 12/17/22 08:00 85 12/17/22 07:36 37 C 83 18 136/81 96 12/17/22 02:35 37.2 C 88 18 108/69 94 O2 Del Method 12/17/22 12:05 Room Air 12/17/22 11:50 Room Air 12/17/22 11:35 Room Air 12/17/22 10:54 Room Air 12/17/22 08:00 12/17/22 07:36 Room Air 12/17/22 02:35 Room Air Laboratory Results Laboratory Results WBC 9.51 K/ul (4.8-10.8) 12/17/22 05:31 RBC 2.86 M/uL (4.20-5.40) L 12/17/22 05:31 Hgb 8.6 g/dl (12.0-16.0) L 12/17/22 05:31 Hct 25.0 % (37.0-47.0) L 12/17/22 05:31 MCV 87.4 fL (80.0-100.0) 12/17/22 05:31 MCH 30.1 pg (25.0-34.0) 12/17/22 05:31 MCHC 34.4 g/dL (32.0-36.0) 12/17/22 05:31 RDW Std Deviation 46.7 fL (36.4-46.3) H 12/17/22 05:31 RDW Coeff of Pérez 14.6 % (11.5-14.5) H 12/17/22 05:31 Plt Count 204 K/uL (130-400) 12/17/22 05:31 MPV 11.2 fL (9.4-12.4) 12/17/22 05:31 Immature Gran % (Auto) 1.6 % 12/17/22 05:31 Neut % (Auto) 78.5 % 12/17/22 05:31 Lymph % (Auto) 8.5 % 12/17/22 05:31 [place] % (Auto) 9.9 % 12/17/22 05:31 Eos % (Auto) 1.3 % 12/17/22 05:31 Baso % (Auto) 0.2 % 12/17/22 05:31 Neut # (Auto) 7.47 K/uL (1.40-6.50) H 12/17/22 05:31 Lymph # (Auto) 0.81 K/uL (1.2-3.4) L 12/17/22 05:31 [place] # (Auto) 0.94 K/uL (0.11-0.59) H 12/17/22 05:31 Eos # (Auto) 0.12 K/uL (0-0.50) 12/17/22 05:31 Baso # (Auto) 0.02 K/uL (0-0.2) 12/17/22 05:31 Immature Gran # (Auto) 0.15 K/uL (0.01-0.20) 12/17/22 05:31 Dohle Bodies 1+ 12/13/22 05:25 RBC Morphology Unremarkable 12/16/22 06:41 Polychromasia 1+ 12/12/22 19:27 Echinocytes 2+ 12/13/22 05:25 PT 11.9 Seconds (9.0-12.0) 12/12/22 19:27 INR 1.1 (0.9-1.1) 12/12/22 19:27 APTT 24.2 Seconds (21.0-31.0) 12/12/22 19:27 PTT Ratio 0.9 12/12/22 19:27 VBG pH 7.47 (7.36-7.41) H 12/13/22 23:21 VBG pCO2 29 mmHg (38-50) L 12/13/22 23:21 VBG pO2 81 mmHg 12/13/22 23:21 VBG HCO3 21 mmol/L 12/13/22 23:21 VBG O2 Saturation 98.3 % 12/13/22 23:21 VBG Base Excess -1.5 mEq/L 12/13/22 23:21 Sodium 138 mmol/L (136-145) 12/17/22 05:31 Potassium 3.6 mmol/L (3.5-5.1) 12/17/22 05:31 Chloride 107 mmol/L (98-107) 12/17/22 05:31 Carbon Dioxide 22 mmol/L (21-32) 12/17/22 05:31 Anion Gap 9 (3-11) 12/17/22 05:31 BUN 76 mg/dl (6-23) H D 12/17/22 05:31 Creatinine 3.19 mg/dl (0.6-1.2) H D 12/17/22 05:31 Est Cr Clr Drug Dosing 21.4 ml/min 12/17/22 05:31 Est GFR ( Amer) 16.3 ml/min 12/17/22 05:31 Est GFR (Non-Af Amer) 14.0 ml/min 12/17/22 05:31 BUN/Creatinine Ratio 23.8 (10-20) H 12/17/22 05:31 Glucose 107 mg/dl (70-99(Fasting)) H 12/17/22 05:31 POC Glucose 124 mg/dl (70-99) H 12/17/22 08:49 POC Glucose (other) 94 mg/dl (70-99) 12/14/22 16:26 Estimat Average Glucose 137 mg/dl 12/13/22 05:25 Hemoglobin A1c 6.4 % (4.5-5.6) H 12/13/22 05:25 Lactate 1.3 mmol/L (0.4-2.0) 12/13/22 00:27 Calcium 8.2 mg/dl (8.6-10.3) L 12/17/22 05:31 Phosphorus 3.7 mg/dl (2.5-4.9) D 12/17/22 05:31 Magnesium 1.6 mg/dl (1.7-2.4) L 12/17/22 05:31 Total Bilirubin 0.7 mg/dl (0.2-1.0) 12/15/22 04:17 Direct Bilirubin 0.3 mg/dl (0-0.2) H 12/15/22 04:17 AST 45 U/L (13-39) H 12/15/22 04:17 ALT 23 U/L (7-52) 12/15/22 04:17 Alkaline Phosphatase 163 U/L (34-104) H 12/15/22 04:17 Total Creatine Kinase 721 U/L (26-192) H 12/12/22 19:27 Troponin I High Sens 146.2 pg/ml (0-14) H* 12/13/22 19:17 Troponin I High Sens Cancelled 12/13/22 19:17 Total Protein 5.6 gm/dl (6.0-8.3) L 12/15/22 04:17 Albumin 2.5 gm/dl (3.4-5.0) L 12/15/22 04:17 Lipase 187 U/L (11-82) H 12/12/22 19:27 Procalcitonin 14.61 ng/ml (0-0.5) H 12/12/22 19: Random Cortisol 31.95 mcg/dl 12/13/22 00:23 Urine Color Dark Yellow 12/12/22 20:33 Urine Appearance Turbid (Clear) A 12/12/22 20:33 Urine pH 7.0 (4.5-7.5) 12/12/22 20:33 Ur Specific [place] 1.016 (1.000-1.030) 12/12/22 20:33 Urine Protein 3+ (Negative) H 12/12/22 20:33 Urine Glucose (UA) Negative (Negative) 12/12/22 20:33 Urine Ketones Negative (Negative) 12/12/22 20:33 Urine Blood 3+ (Negative) H 12/12/22 20:33 Urine Nitrite Negative (Negative) 12/12/22 20:33 Urine Bilirubin Negative (Negative) 12/12/22 20:33 Urine Urobilinogen Negative (Negative) 12/12/22 20:33 Ur Leukocyte Esterase 3+ (Negative) H 12/12/22 20:33 Urine WBC (Auto) >30 /hpf (0-5) H 12/12/22 20:33 Urine RBC (Auto) 10-30 /hpf (0-4) H 12/12/22 20:33 U Hyaline Cast (Auto) 0 /lpf (0-5) 12/12/22 20:33 U Epithel Cells (Auto) >30 /lpf (0-5) H 12/12/22 20:33 Urine Bacteria (Auto) 4+ (Negative) H 12/12/22 20:33 Ur Renal Epithelial Cell 10-20 /lpf (0-5) H 12/12/22 20:33 Urine Yeast Not Reportable 12/12/22 20:33 Nasal Screen MRSA (PCR) Positive (Negative) A 12/12/22 23:00 Stool Occult Bld Scrn Positive (Negative) A 12/16/22 10:45 Stl C. cayetanensis PCR Not Detected (NotDetected) 12/15/22 09:27 Stool Rotavirus A PCR Not Detected (NotDetected) 12/15/22 09:27 Stl Adenov F 40/41 PCR Not Detected (NotDetected) 12/15/22 09:27 Stool Astrovirus (PCR) Not Detected (NotDetected) 12/15/22 09:27 Stool Campylobacter PCR Not Detected (NotDetected) 12/15/22 09:27 Stl C. diff Tox B Gene Positive Cdiff Gene (Neg) H 12/15/22 09:27 Stl C.difficile Tox A&B Negative Cdiff Toxin (Negative) 12/15/22 09:27 Stool Cryptosporidium PCR Not Detected (NotDetected) 12/15/22 09:27 Stl E.coli Shiga Tox PCR Not Detected (NotDetected) 12/15/22 09:27 Stl Enterotoxigenic E PCR Not Detected (NotDetected) 12/15/22 09:27 Stool EPEC (PCR) Not Detected (NotDetected) 12/15/22 09:27 Stool EAEC (PCR) Not Detected (NotDetected) 12/15/22 09:27 Stl E. histolytica PCR Not Detected (NotDetected) 12/15/22 09:27 Stool Giardia Lamblia PCR Not Detected (NotDetected) 12/15/22 09:27 Stool Salmonella PCR Not Detected (NotDetected) 12/15/22 09:27 Stool Sapovirus (PCR) Not Detected (NotDetected) 12/15/22 09:27 Stl P. shigelloides PCR Not Detected (NotDetected) 12/15/22 09:27 Stl Shigella/EIEC PCR Not Detected (NotDetected) 12/15/22 09:27 St Y.enterocolitica PCR Not Detected (NotDetected) 12/15/22 09:27 Stool Vibrio (PCR) Not Detected (NotDetected) 12/15/22 09:27 Stl Vibrio cholerae PCR Not Detected (NotDetected) 12/15/22 09:27 Stl Norovirus GI/GII PCR Not Detected (NotDetected) 12/15/22 09:27 Adenovirus (PCR) Not Detected (NotDetected) 12/12/22 19:27 B. pertussis DNA (PCR) Not Detected (NotDetected) 12/12/22 19:27 B.parapertussis DNA PCR Not Detected (NotDetected) 12/12/22 19:27 C. pneumoniae DNA (PCR) Not Detected (NotDetected) 12/12/22 19:27 Coronavirus OC43 (PCR) Not Detected (NotDetected) 12/12/22 19:27 Coronavirus HKU1 (PCR) Not Detected (NotDetected) 12/12/22 19:27 Coronavirus 229E (PCR) Not Detected (NotDetected) 12/12/22 19:27 SARS-CoV-2 (PCR) Not Detected (NotDetected) 12/12/22 19:27 Coronavirus NL63 (PCR) Not Detected (NotDetected) 12/12/22 19:27 Enterobacterales (PCR) DETECTED (NotDetected) A 12/12/22 19:27 Human Metapneumovir PCR Not Detected (NotDetected) 12/12/22 19:27 Influenza Type A (PCR) Not Detected (NotDetected) 12/12/22 19:27 Influenza Type B (PCR) Not Detected (NotDetected) 12/12/22 19:27 K. pneumoniae group (PCR) DETECTED (NotDetected) A 12/12/22 19:27 M. pneumoniae (PCR) Not Detected (NotDetected) 12/12/22 19:27 Parainfluenza 1 (PCR) Not Detected (NotDetected) 12/12/22 19:27 Parainfluenza 2 (PCR) Not Detected (NotDetected) 12/12/22 19:27 Parainfluenza 3 (PCR) Not Detected (NotDetected) 12/12/22 19:27 Parainfluenza 4 (PCR) Not Detected (NotDetected) 12/12/22 19:27 RSV (PCR) Not Detected (NotDetected) 07/19/23 19:27 Entero/Rhino (PCR) Not Detected (NotDetected) 12/12/22 19:27 mcr-1 Colistin Res Gene PCR Not Detected (NotDetected) 12/12/22 19:27 blaIMP Car res Gene PCR Not Detected (NotDetected) 12/12/22 19:27 KPC-Carbap Res Gene PCR Not Detected (NotDetected) 12/12/22 19:27 blaNDM Car Res Gene PCR Not Detected (NotDetected) 12/12/22 19:27 OXA-48 Carbapenem Resis Gene (PCR) Not Detected (NotDetected) 12/12/22 19:27 blaVIM Car Res Gene PCR Not Detected (NotDetected) 12/12/22 19:27 CTX-M Gene Resistance (PCR) Not Detected (NotDetected) 12/12/22 19:27 Bld Cult ID Panel PCR See PCR Comment (NotDetected) 12/12/22 19:27 Blood Type B Positive 12/16/22 13:02 Antibody Screen NEGATIVE 12/16/22 13:02 Crossmatch See Detail 12/16/22 13:02 Impressions Abdomen/Pelvis CT 12/12/22 19:21 Exam(s): CT ABDOMEN + PELVIS Without Contrast EXAM: CT Abdomen and Pelvis Without Intravenous Contrast CLINICAL HISTORY: Reason for exam: abd apin. TECHNIQUE: Axial computed tomography images of the abdomen and pelvis without intravenous contrast. CTDI is 28.14 mGy and DLP is 1415.4 mGy-cm. Automated exposure control was utilized for the study. A dose lowering technique was utilized adhering to the principles of ALARA. COMPARISON: No relevant prior studies available. FINDINGS: Lung bases: Unremarkable. No mass. No consolidation. ABDOMEN: Liver: Unremarkable. Gallbladder and bile ducts: Cholecystectomy clips. No ductal dilation. Pancreas: Unremarkable. No ductal dilation. Spleen: Unremarkable. No splenomegaly. Adrenals: Unremarkable. No mass. Kidneys and ureters: Unremarkable. No hydronephrosis or nephrolithiasis. Stomach and bowel: Circumferential wall thickening of the descending and sigmoid colon, with mild pericolonic fat stranding, consistent with mild colitis. No obstruction. PELVIS: Appendix: No findings to suggest acute appendicitis. Bladder: Decompressed urinary bladder. No stones. Reproductive: Unremarkable as visualized. ABDOMEN and PELVIS: Intraperitoneal space: Unremarkable. No free air. No significant fluid collection. Bones/joints: Degenerative changes of the spine. No acute fracture. No dislocation. Soft tissues: Unremarkable. Vasculature: Atherosclerotic changes of the aorta. No abdominal aortic aneurysm. Lymph nodes: Unremarkable. No enlarged lymph nodes. IMPRESSION: Circumferential wall thickening of the descending and sigmoid colon, with mild pericolonic fat stranding, consistent with mild colitis. Electronically signed by: Cezar Hansen MD 12/12/22 20:14 PM Chest X-Ray 12/12/22 23:57 XR chest 1V portable CLINICAL HISTORY: new central line R IJ placement TECHNIQUE: Single frontal radiograph of the chest was obtained. Comparison: Comparison is made to chest radiograph 12/12/2022 FINDINGS: Right sided venous catheter terminates in the lower SVC. The cardiomediastinal silhouette is normal. The lungs are clear. No evidence of pleural effusion or pneumothorax. IMPRESSION: Satisfactory position of right central line without evidence of pneumothorax. ACT 112: Negative or not required by law. Electronically signed by: Liban Jessica M.D. 12/13/2022 6:58 AM
--- NOTE | 2022-12-17 12:38 | Anesthesiology Progress Note ---
Date of Service December 17, 2022 Anesthesia Post Procedure Vital Signs Vital Signs: Temp Pulse Pulse Pulse Resp BP BP 12/17/22 12:05 88 16 139/73 12/17/22 11:50 89 16 135/63 12/17/22 11:35 85 16 110/49 L 12/17/22 10:54 37 C 103 H 18 121/61 12/17/22 08:00 85 12/17/22 07:36 37 C 83 18 136/81 12/17/22 02:35 37.2 C 88 18 108/69 12/16/22 23:16 82 12/16/22 23:01 36.6 C 83 18 144/66 H 12/16/22 18:59 36.7 C 86 18 112/67 12/16/22 18:24 36.7 C 93 H 18 118/78 12/16/22 17:47 36.6 C 88 18 119/77 12/16/22 16:00 80 12/16/22 16:47 36.7 C 82 18 118/65 12/16/22 16:17 36.6 C 82 18 113/58 L 12/16/22 16:02 36.7 C 83 18 116/63 12/16/22 15:38 36.6 C 88 18 118/56 L Pulse Ox O2 Del Method 12/17/22 12:05 100 Room Air 12/17/22 11:50 100 Room Air 12/17/22 11:35 100 Room Air 12/17/22 10:54 98 Room Air 12/17/22 08:00 12/17/22 07:36 96 Room Air 12/17/22 02:35 94 Room Air 12/16/22 23:16 12/16/22 23:01 100 Room Air 12/16/22 18:59 100 Room Air 12/16/22 18:24 96 12/16/22 17:47 98 12/16/22 16:00 12/16/22 16:47 98 12/16/22 16:17 96 12/16/22 16:02 96 12/16/22 15:38 98 Pain Intensity Back: Pain Intensity: 2 Abdomen: Pain Intensity: 0 Transfer of Care Handoff Completed per policy Notes Mental Status: alert / awake / arousable and participated in evaluation Patient Amnestic to Procedure: Yes Nausea / Vomiting: adequately controlled Pain: adequately controlled Airway Patency, RR, SpO2: stable & adequate BP & HR: stable & adequate Hydration State: stable & adequate Anesthetic Complications: no major complications apparent
--- NOTE | 2022-12-17 12:40 | Pharmacy Report ---
Pharmacy Glycemic Short Note 2 - Date of Service December 17, 2022 - Glycemic Short BSG Results (Last 24 hours): 12/16/22 12/16/22 12/17/22 16:23 20:03 05:31 Glucose 107 H POC Glucose 208 H 168 H 12/17/22 12/17/22 06:06 08:49 Glucose POC Glucose 108 H 124 H OUTPATIENT ANTIDIABETIC REGIMEN: * Ozempic 2 mg SC once weekly * Note: diarrhea on admission correlates with increased Ozempic dose * HbA1c 6/4% on 12/13/22 ASSESSMENT: 12/17: * Patient received 57 units of insulin yesterday, 25 of which were basal. BSGs were [phone] mg/dL and today's fasting was 107 mg/dL. * Lantus dose was decreased somewhat this morning as patient was NPO at the time pending GI evaluation. Patient is now ordered a diet, but no carbs consumed for breakfast and lunch. Lunch BSG elevation at 221 mg/dL may be in part a stress response immediately post endoscopy. Will resume previous lantus dose of 25 units for tomorrow morning. * Will assess dinner BSG trend again today to determine if tighter CR is needed at lunchtime. 12/14: * Liane received 43 units of insulin yesterday, 25 units basal + 18 units bolus. BSGs were: [phone] mg/dL. * Remains on Ceftriaxone and Metronidazole today. Vasopressin was titrated off over night. Still requiring a very minor dose of Norepinephrine to maintain MAPs > 65. Midodrine added this morning to help titrate off pressor. NS is running at 125 mL/hr. Diet was advanced to full liquid this morning. * Fasting BSG was 142 mg/dL this AM. Gave a 20 unit dose of Lantus this AM. Will also add a scaled basal dose for this evening given patient is now eating (tolerated 42 g of CHO with breakfast). * Postprandial BSG at lunch was elevated at 249 mg/dL. Will tighten carb ratio. 12/13: * 72 yo F with T2DM admitted to the ICU with sepsis 2nd K. pneumo bacteremia, likely UTI or GI source. Currently NPO and weaning off pressors. * Previous admissions reviewed - most recent one where patient was on steroids for COVID - not likely helpful for this admission while not on steroids. Also reviewed multiple day admission in 2018 while not on steroids. Lantus dose initially exceeded 130 units/day for many days initially but was decreased down to ~50 units/day after AM hypoglycemic episode ~3 days into the admission. * Will half Lantus dose as compared to the end of the previous admission due to NPO status and also ICU status (goal BSG 140-180 mg/dL) * OK to utilized more aggressive correction factor - similar to previous and also low-dose Lantus. Weight-based moderate stress CHO ratio for if/when patient is ordered a diet PLAN FOR INPATIENT GLYCEMIC CONTROL: * Basal insulin * Lantus 18 units SC X 1 today, 25 units SC qam to resume tomorrow * Bolus insulin * NovoLog per scale ACHS or Q6hrs while NPO * Goal Range: Low 110 mg/dL - High 140 mg/dL * Correction Factor: 20 mg/dL/unit * Nutritional / Prandial insulin per carb ratio of 1 unit per 5 (4 for breakfast) grams CHO consumed
[2022-12-17] MEDS: cefTRIAXone SODIUM 2,000 MG in DEXTROSE 5% 50 ML IV SCH (13:28)
[2022-12-17] MEDS: HEPARIN SOD 5,000 UNIT/0.5 ML VIAL SQ SCH ×2 (13:29→22:23)
[2022-12-17] MEDS: ACETAMINOPHEN 325 MG TAB PO PRN (17:29)
[2022-12-18] MEDS: HEPARIN SOD 5,000 UNIT/0.5 ML VIAL SQ SCH ×3 (06:22→21:18)
[2022-12-18 07:41] LABS: BUN Creatinine Ratio 25.8 (10-20); Calcium 8.1 mg/dl (8.6-10.3); Est GFR (African American) 23.4 ml/min; Est GFR (Non-African American) 20.2 ml/min; Magnesium 1.2 mg/dl (1.7-2.4); Phosphorus 3.4 mg/dl (2.5-4.9); Potassium 3.7 mmol/L (3.5-5.1)
[2022-12-18 07:47] LABS: Basophils # (auto) 0.01 K/uL (0-0.2); Basophils % (auto) 0.1 %; Eosinophils # (auto) 0.12 K/uL (0-0.50); Eosinophils % (auto) 1.5 %; Hematocrit (blood only) 26.3 % (37.0-47.0); Hemoglobin 8.6 g/dl (12.0-16.0); Immature Granulocytes % (auto) 1.3 %; Lymphocytes # (auto) 0.58 K/uL (1.2-3.4); Lymphocytes % (auto) 7.3 %; Mean Corpuscular Hemoglobin 30.4 pg (25.0-34.0); Mean Corpuscular Hgb Conc 32.7 g/dL (32.0-36.0); Mean Corpuscular Volume 92.9 fL (80.0-100.0); Mean Platelet Volume 10.9 fL (9.4-12.4); Monocytes # (auto) 0.58 K/uL (0.11-0.59); Monocytes % (auto) 7.3 %; Neutrophils # (auto) 6.59 K/uL (1.40-6.50); Neutrophils % (auto) 82.5 %; Platelet Count 186 K/uL (130-400); RDW Coefficient of Variation 15.1 % (11.5-14.5); RDW Standard Deviation 51.8 fL (36.4-46.3); Red Blood Count 2.83 M/uL (4.20-5.40); White Blood Count 7.98 K/ul (4.8-10.8)
[2022-12-18] MEDS ORDERED: FLUCONAZOLE 100 MG TAB PO ONE (08:48)
[2022-12-18] MEDS: INSULIN ASPART PER UNIT CHARGE SC SCH ×4 (09:00→20:22)
[2022-12-18] MEDS: LANTUS PER UNIT CHARGE SC SCH (09:00)
[2022-12-18] MEDS: MAGNESIUM SULFATE / D5W 1 GM/100 ML BAG IV SCH ×4 (09:01→15:33)
[2022-12-18] MEDS: FLUTICASONE/VILANTEROL 100/25MCG 14 PUFFS/INHALER INH SCH (09:02)
[2022-12-18] MEDS: MUPIROCIN 2% OINT 22 GM TUBE EXT SCH ×2 (09:03→21:24)
[2022-12-18] MEDS: FLUCONAZOLE 100 MG TAB PO SCH (09:03)
[2022-12-18] MEDS: MONTELUKAST SODIUM 10 MG TABLET PO SCH (09:03)
[2022-12-18] MEDS: PANTOprazole 40 MG in SYRINGE 0 ML IV SCH (09:04)
--- NOTE | 2022-12-18 10:26 | Nephrology Progress Note ---
Date of Service December 18, 2022 Assessment & Plan Admission and Anticipated Discharge Date Admission Date: December 12, 2022 Subjective Assessment & Plan (1) DAVONTE (acute kidney injury): Plan: further improving stage 3 non oliguric DAVONTE on progressive CKD 3 versus preexisting DAVONTE based on August 2022 creatinine reading of 1.7. Patient is clinically and in terms of labs from a kidney standpoint improving though still critical. Note also however her OP creatinine is increasing dramatically over the past year from 1.0 on 08/2021 [facility] labs to 1.1 in 02/2022 and 1.7 08/2022 on [facility] readings; no definite baseline value at this time; would guess around 1.5. continue supportive care for GN bacteremia continue strict I/O Good urine Output. Creat trending down nicely and no in the 2's. No issues with na or K today. Daily labs. Subjective Good urine. had EGD yesterday and had Harriet esophagitis. Review of Systems Review of Systems: All systems reviewed & are unremarkable except as noted in Subjective Physical Exam Constitutional: well developed, well nourished, + frail appearing and cooperative; no acute distress Eyes: EOM intact bilaterally ENMT: Ears: no external ear abnormality Nose: no external nose abnormality Mouth: + dry oral mucous membranes Neck: no nuchal rigidity Respiratory: normal respiratory effort; no labored breathing and no cough Auscultation: + diminished lung sounds and + crackles (fine bibasilar) Cardiovascular: Rate/Rhythm: regular rate and regular rhythm Extremities: no edema Gastrointestinal (Abdomen): Inspection/Auscultation: normal bowel sounds Percussion/Palpation: abdomen soft; abdomen nontender Musculoskeletal: Extremities: strength 5/5 throughout Skin: no rashes, warm and dry Neurologic: pastrana, fluent speech, no tremor Psychiatric: Orientation: alert and oriented x 3 Results & Data Vital Signs (Past 12 Hours) Vital Signs Temp Pulse Pulse Pulse Resp BP Pulse Ox 12/18/22 08:00 36.7 C 20 L 69 18 121/66 97 12/18/22 07:25 75 12/18/22 03:19 36.6 C 89 18 136/80 97 12/18/22 01:44 70 12/17/22 22:50 37 C 75 18 114/51 L 96 O2 Del Method 12/18/22 08:00 Room Air 12/18/22 07:25 12/18/22 03:19 Room Air 12/18/22 01:44 12/17/22 22:50 Room Air
[2022-12-18] MEDS: clonazePAM 0.5 MG TAB PO PRN ×2 (12:36→21:22)
--- NOTE | 2022-12-18 12:47 | Hospitalist Progress Note ---
Date of Service December 18, 2022 Assessment & Plan (1) Severe sepsis: (2) DAVONTE (acute kidney injury): (3) Hyponatremia: (4) Metabolic acidosis: (5) Diarrhea: Plan 72-year-old female past medical history significant for type 2 diabetes, on long-term insulin, iron metabolism disease, diabetic retinopathy, hyperlipidemia, moderate persistent asthma, obstructive sleep apnea does not tolerate BiPAP nocturnal oxygen 3 to 4 L, hypertension, pulmonary hypertension, PVCs, irritable bowel syndrome, GERD, chronic kidney disease stage III, restless leg syndrome, medical marijuana use, depression, KARI, PTSD, panic disorder, history of COVID, presents with diarrhea going on for 1 week and found to have severe sepsis, DAVONTE, hyperkalemia, hyponatremia and metabolic acidosis. Septic shock on POA Urosepsis on POA On admission, hypotension and elevated lactic acid 2.7. Required vasopressors. Leukocytosis present on admission, normalized. Urine culture growing Klebsiella pneumoniae; pansensitive. Blood culture on admission positive for Klebsiella pneumoniae; pansensitive Repeat blood cultures negative so far. Currently on ceftriaxone and Flagyl. Plan to treat with total duration of antibiotic for 10 days for bacteremia. Will stop Flagyl after 5 days. Repeat blood culture negative so far. DAVONTE Hyponatremia Hyperkalemia Metabolic acidosis DAVONTE likely due to septic shock Resulting in hyponatremia, hyperkalemia and metabolic acidosis, improving Urine output reassuring Presented to creatinine of 13.3, downtrending. Baseline creatinine 0.8-1 Stop IV fluids. Continue strict input and output monitoring. Close monitoring of serum sodium and potassium level Acute blood loss anemia Likely secondary to upper GI bleed Esophageal candidiasis Diffuse gastritis Hemoglobin down trended from 10.7 on admission to 7 on 12/16/2022 Transfuse 1 unit of packed RBC Fecal occult positive Underwent endoscopy on 12/17esophageal plaques found suspicious for candidiasis. Diffuse gastritis. Started on Diflucan as per recommendation. Plan for colonoscopy as outpatient. Continue Protonix twice daily. Elevated troponin likely due to demand ischemia from septic shock High-sensitivity troponin elevated Mostly from DAVONTE and demand ischemia from sepsis Echocardiogram showed EF of 55 to 60%; no significant valvular abnormality or wall motion abnormalities. Diarrhea Decreased appetite C. difficile colonization CT abdomen and pelvis reviewed; consistent with colitis. Possible side effect of Ozempic increased dose. C. difficile gene positive, toxin negative; likely due to colonization. Monitor for now. MRSA nares positive: Bactroban 2% on anterior nares for 5 days Type II diabetes Patient states this takes 8o units of long-acting insulin the morning and and as needed short-acting She is also on Ozempic Currently we will place on insulin sliding scale Pharmacy on board. Obstructive sleep apnea Does not tolerate BiPAP On oxygen 3 to 4 L nightly Restless leg syndrome On pramipexole Hypertension Holding lisinopril metoprolol and Lasix as patient currently having DAVONTE and hypotension. Anxiety Resume Klonopin. Insomnia On clonidine nightly. Patient not taking it. Will discontinue at discharge. Hyperlipidemia Statin currently on hold due to elevated CK. Irritable bowel syndrome Hold home medications for now History of asthma Continue home inhalers and nebs as needed GERD on Protonix DVT prophylaxis Heparin . Disposition PT OT evaluation done. Recommend rehab. Case management on board. Patient wants to go home. DNR/DNI Time spent evaluating patient, direct bedside care, chart review, placing orders, interpretation of diagnostic studies, discussion with consultants, patient, and family members, as well as other required patient management activities is 60 minutes. Please note the above document was generated using voice recognition software. It may contain grammatical, syntax or spelling errors. Any formal questions or concerns about the content, text or information contained within the body of this dictation should be directly addressed to the provider for clarification Admission and Anticipated Discharge Date Admission Date: December 12, 2022 Subjective Patient seen and patient seen and examined at bedside. She reports that she is feeling much stronger. Hemodynamics better Afebrile. Review of Systems Review of Systems: All systems reviewed & are unremarkable except as noted in Subjective Physical Exam Physical Exam: Constitutional: Awake, alert orient x3. Not in any distress Respiratory: Bilateral vesicular breath sound Cardiovascular: RRR, no murmur, no edema Vessels: no JVD or carotid bruit Chest: normal inspection of chest Abdomen: normal bowel sounds, soft, nontender, no hepatosplenomegaly. Musculoskeletal: no cyanosis or clubbing, extremities motor strength 5/5 Skin: no rashes, warm and dry normal turgor Neurologic: PERRL, EOMI, accommodation nl, no face palsy, no dysarthria CN's II- XI intact bilaterally and moves all extremities Psychiatric: A+Ox3, euthymic affect Results & Data Results & Data Vital Signs (Past 12 Hours) Vital Signs Temp Pulse Pulse Pulse Resp BP Pulse Ox 12/18/22 11:00 36.8 C 76 18 120/59 L 99 12/18/22 08:00 36.7 C 20 L 69 18 121/66 97 12/18/22 07:25 75 12/18/22 03:19 36.6 C 89 18 136/80 97 12/18/22 01:44 70 O2 Del Method 12/18/22 11:00 Room Air 12/18/22 08:00 Room Air 12/18/22 07:25 12/18/22 03:19 Room Air 12/18/22 01:44 Laboratory Results Laboratory Results WBC 7.98 K/ul (4.8-10.8) 12/18/22 06:39 RBC 2.83 M/uL (4.20-5.40) L 12/18/22 06:39 Hgb 8.6 g/dl (12.0-16.0) L 12/18/22 06:39 Hct 26.3 % (37.0-47.0) L 12/18/22 06:39 MCV 92.9 fL (80.0-100.0) D 12/18/22 06:39 MCH 30.4 pg (25.0-34.0) 12/18/22 06:39 MCHC 32.7 g/dL (32.0-36.0) 12/18/22 06:39 RDW Std Deviation 51.8 fL (36.4-46.3) H 12/18/22 06:39 RDW Coeff of Pérez 15.1 % (11.5-14.5) H 12/18/22 06:39 Plt Count 186 K/uL (130-400) 12/18/22 06:39 MPV 10.9 fL (9.4-12.4) 12/18/22 06:39 Immature Gran % (Auto) 1.3 % 12/18/22 06:39 Neut % (Auto) 82.5 % 12/18/22 06:39 Lymph % (Auto) 7.3 % 12/18/22 06:39 Roane % (Auto) 7.3 % 12/18/22 06:39 Eos % (Auto) 1.5 % 12/18/22 06:39 Baso % (Auto) 0.1 % 12/18/22 06:39 Neut # (Auto) 6.59 K/uL (1.40-6.50) H 12/18/22 06:39 Lymph # (Auto) 0.58 K/uL (1.2-3.4) L 12/18/22 06:39 Roane # (Auto) 0.58 K/uL (0.11-0.59) 12/18/22 06:39 Eos # (Auto) 0.12 K/uL (0-0.50) 12/18/22 06:39 Baso # (Auto) 0.01 K/uL (0-0.2) 12/18/22 06:39 Immature Gran # (Auto) 0.10 K/uL (0.01-0.20) 12/18/22 06:39 Dohle Bodies 1+ 12/13/22 05:25 RBC Morphology Unremarkable 12/16/22 06:41 Polychromasia 1+ 12/12/22 19:27 Echinocytes 2+ 12/13/22 05:25 PT 11.9 Seconds (9.0-12.0) 12/12/22 19:27 INR 1.1 (0.9-1.1) 12/12/22 19:27 APTT 24.2 Seconds (21.0-31.0) 12/12/22 19:27 PTT Ratio 0.9 12/12/22 19:27 VBG pH 7.47 (7.36-7.41) H 12/13/22 23:21 VBG pCO2 29 mmHg (38-50) L 12/13/22 23:21 VBG pO2 81 mmHg 12/13/22 23:21 VBG HCO3 21 mmol/L 12/13/22 23:21 VBG O2 Saturation 98.3 % 12/13/22 23:21 VBG Base Excess -1.5 mEq/L 12/13/22 23:21 Sodium 139 mmol/L (136-145) 12/18/22 06:39 Potassium 3.7 mmol/L (3.5-5.1) 12/18/22 06:39 Chloride 109 mmol/L (98-107) H 12/18/22 06:39 Carbon Dioxide 21 mmol/L (21-32) 12/18/22 06:39 Anion Gap 9 (3-11) 12/18/22 06:39 BUN 61 mg/dl (6-23) H 12/18/22 06:39 Creatinine 2.36 mg/dl (0.6-1.2) H D 12/18/22 06:39 Est Cr Clr Drug Dosing 29.0 ml/min 12/18/22 06:39 Est GFR ( Amer) 23.4 ml/min 12/18/22 06:39 Est GFR (Non-Af Amer) 20.2 ml/min 12/18/22 06:39 BUN/Creatinine Ratio 25.8 (10-20) H 12/18/22 06:39 Glucose 115 mg/dl (70-99(Fasting)) H 12/18/22 06:39 POC Glucose 279 mg/dl (70-99) H 12/18/22 11:07 POC Glucose (other) 94 mg/dl (70-99) 12/14/22 16:26 Estimat Average Glucose 137 mg/dl 12/13/22 05:25 Hemoglobin A1c 6.4 % (4.5-5.6) H 12/13/22 05:25 Lactate 1.3 mmol/L (0.4-2.0) 12/13/22 00:27 Calcium 8.1 mg/dl (8.6-10.3) L 12/18/22 06:39 Phosphorus 3.4 mg/dl (2.5-4.9) 12/18/22 06:39 Magnesium 1.2 mg/dl (1.7-2.4) L 12/18/22 06:39 Total Bilirubin 0.7 mg/dl (0.2-1.0) 12/15/22 04:17 Direct Bilirubin 0.3 mg/dl (0-0.2) H 12/15/22 04:17 AST 45 U/L (13-39) H 12/15/22 04:17 ALT 23 U/L (7-52) 12/15/22 04:17 Alkaline Phosphatase 163 U/L (34-104) H 12/15/22 04:17 Total Creatine Kinase 721 U/L (26-192) H 12/12/22 19:27 Troponin I High Sens 146.2 pg/ml (0-14) H* 12/13/22 19:17 Troponin I High Sens Cancelled 12/13/22 19:17 Total Protein 5.6 gm/dl (6.0-8.3) L 12/15/22 04:17 Albumin 2.5 gm/dl (3.4-5.0) L 12/15/22 04:17 Lipase 187 U/L (11-82) H 12/12/22 19:27 Procalcitonin 14.61 ng/ml (0-0.5) H 12/12/22 19:27 Random Cortisol 31.95 mcg/dl 12/13/22 00:23 Urine Color Dark Yellow 12/12/22 20:33 Urine Appearance Turbid (Clear) A 12/12/22 20: Urine pH 7.0 (4.5-7.5) 12/12/22 20:33 Ur Specific [place] 1.016 (1.000-1.030) 12/12/22 20:33 Urine Protein 3+ (Negative) H 12/12/22 20:33 Urine Glucose (UA) Negative (Negative) 12/12/22 20: Urine Ketones Negative (Negative) 12/12/22 20:33 Urine Blood 3+ (Negative) H 12/12/22 20:33 Urine Nitrite Negative (Negative) 12/12/22 20:33 Urine Bilirubin Negative (Negative) 12/12/22 20:33 Urine Urobilinogen Negative (Negative) 12/12/22 20:33 Ur Leukocyte Esterase 3+ (Negative) H 12/12/22 20:33 Urine WBC (Auto) >30 /hpf (0-5) H 12/12/22 20:33 Urine RBC (Auto) 10-30 /hpf (0-4) H 12/12/22 20:33 U Hyaline Cast (Auto) 0 /lpf (0-5) 12/12/22 20:33 U Epithel Cells (Auto) >30 /lpf (0-5) H 12/12/22 20:33 Urine Bacteria (Auto) 4+ (Negative) H 12/12/22 20:33 Ur Renal Epithelial Cell 10-20 /lpf (0-5) H 12/12/22 20:33 Urine Yeast Not Reportable 12/12/22 20:33 Nasal Screen MRSA (PCR) Positive (Negative) A 12/12/22 23:00 Stool Occult Bld Scrn Positive (Negative) A 12/16/22 10:45 Stl C. cayetanensis PCR Not Detected (NotDetected) 12/15/22 09:27 Stool Rotavirus A PCR Not Detected (NotDetected) 12/15/22 09:27 Stl Adenov F 40/41 PCR Not Detected (NotDetected) 12/15/22 09:27 Stool Astrovirus (PCR) Not Detected (NotDetected) 12/15/22 09:27 Stool Campylobacter PCR Not Detected (NotDetected) 12/15/22 09:27 Stl C. diff Tox B Gene Positive Cdiff Gene (Neg) H 12/15/22 09:27 Stl C.difficile Tox A&B Negative Cdiff Toxin (Negative) 12/15/22 09:27 Stool Cryptosporidium PCR Not Detected (NotDetected) 12/15/22 09:27 Stl E.coli Shiga Tox PCR Not Detected (NotDetected) 12/15/22 09:27 Stl Enterotoxigenic E PCR Not Detected (NotDetected) 12/15/22 09:27 Stool EPEC (PCR) Not Detected (NotDetected) 12/15/22 09:27 Stool EAEC (PCR) Not Detected (NotDetected) 12/15/22 09:27 Stl E. histolytica PCR Not Detected (NotDetected) 12/15/22 09:27 Stool Giardia Lamblia PCR Not Detected (NotDetected) 12/15/22 09:27 Stool Salmonella PCR Not Detected (NotDetected) 12/15/22 09:27 Stool Sapovirus (PCR) Not Detected (NotDetected) 12/15/22 09:27 Stl P. shigelloides PCR Not Detected (NotDetected) 12/15/22 09:27 Stl Shigella/EIEC PCR Not Detected (NotDetected) 12/15/22 09:27 St Y.enterocolitica PCR Not Detected (NotDetected) 12/15/22 09:27 Stool Vibrio (PCR) Not Detected (NotDetected) 12/15/22 09:27 Stl Vibrio cholerae PCR Not Detected (NotDetected) 12/15/22 09:27 Stl Norovirus GI/GII PCR Not Detected (NotDetected) 12/15/22 09:27 Adenovirus (PCR) Not Detected (NotDetected) 12/12/22 19:27 B. pertussis DNA (PCR) Not Detected (NotDetected) 12/12/22 19:27 B.parapertussis DNA PCR Not Detected (NotDetected) 12/12/22 19:27 C. pneumoniae DNA (PCR) Not Detected (NotDetected) 12/12/22 19:27 Coronavirus OC43 (PCR) Not Detected (NotDetected) 12/12/22 19:27 Coronavirus HKU1 (PCR) Not Detected (NotDetected) 12/12/22 19:27 Coronavirus 229E (PCR) Not Detected (NotDetected) 12/12/22 19:27 SARS-CoV-2 (PCR) Not Detected (NotDetected) 12/12/22 19:27 Coronavirus NL63 (PCR) Not Detected (NotDetected) 12/12/22 19:27 Enterobacterales (PCR) DETECTED (NotDetected) A 12/12/22 19:27 Human Metapneumovir PCR Not Detected (NotDetected) 12/12/22 19:27 Influenza Type A (PCR) Not Detected (NotDetected) 12/12/22 19:27 Influenza Type B (PCR) Not Detected (NotDetected) 12/12/22 19:27 K. pneumoniae group (PCR) DETECTED (NotDetected) A 12/12/22 19:27 M. pneumoniae (PCR) Not Detected (NotDetected) 12/12/22 19:27 Parainfluenza 1 (PCR) Not Detected (NotDetected) 12/12/22 19:27 Parainfluenza 2 (PCR) Not Detected (NotDetected) 12/12/22 19:27 Parainfluenza 3 (PCR) Not Detected (NotDetected) 12/12/22 19:27 Parainfluenza 4 (PCR) Not Detected (NotDetected) 12/12/22 19:27 RSV (PCR) Not Detected (NotDetected) 12/12/22 19:27 Entero/Rhino (PCR) Not Detected (NotDetected) 12/12/22 19:27 mcr-1 Colistin Res Gene PCR Not Detected (NotDetected) 12/12/22 19:27 blaIMP Car res Gene PCR Not Detected (NotDetected) 12/12/22 19:27 KPC-Carbap Res Gene PCR Not Detected (NotDetected) 12/12/22 19:27 blaNDM Car Res Gene PCR Not Detected (NotDetected) 12/12/22 19:27 OXA-48 Carbapenem Resis Gene (PCR) Not Detected (NotDetected) 12/12/22 19:27 blaVIM Car Res Gene PCR Not Detected (NotDetected) 12/12/22 19:27 CTX-M Gene Resistance (PCR) Not Detected (NotDetected) 12/12/22 19:27 Bld Cult ID Panel PCR See PCR Comment (NotDetected) 12/12/22 19:27 Blood Type B Positive 12/16/22 13:02 Antibody Screen NEGATIVE 12/16/22 13:02 Crossmatch See Detail 12/16/22 13:02 Impressions Abdomen/Pelvis CT 12/12/22 19:21 Exam(s): CT ABDOMEN + PELVIS Without Contrast EXAM: CT Abdomen and Pelvis Without Intravenous Contrast CLINICAL HISTORY: Reason for exam: abd apin. TECHNIQUE: Axial computed tomography images of the abdomen and pelvis without intravenous contrast. CTDI is 28.14 mGy and DLP is 1415.4 mGy-cm. Automated exposure control was utilized for the study. A dose lowering technique was utilized adhering to the principles of ALARA. COMPARISON: No relevant prior studies available. FINDINGS: Lung bases: Unremarkable. No mass. No consolidation. ABDOMEN: Liver: Unremarkable. Gallbladder and bile ducts: Cholecystectomy clips. No ductal dilation. Pancreas: Unremarkable. No ductal dilation. Spleen: Unremarkable. No splenomegaly. Adrenals: Unremarkable. No mass. Kidneys and ureters: Unremarkable. No hydronephrosis or nephrolithiasis. Stomach and bowel: Circumferential wall thickening of the descending and sigmoid colon, with mild pericolonic fat stranding, consistent with mild colitis. No obstruction. PELVIS: Appendix: No findings to suggest acute appendicitis. Bladder: Decompressed urinary bladder. No stones. Reproductive: Unremarkable as visualized. ABDOMEN and PELVIS: Intraperitoneal space: Unremarkable. No free air. No significant fluid collection. Bones/joints: Degenerative changes of the spine. No acute fracture. No dislocation. Soft tissues: Unremarkable. Vasculature: Atherosclerotic changes of the aorta. No abdominal aortic aneurysm. Lymph nodes: Unremarkable. No enlarged lymph nodes. IMPRESSION: Circumferential wall thickening of the descending and sigmoid colon, with mild pericolonic fat stranding, consistent with mild colitis. Electronically signed by: Cezar Hansen MD 12/12/22 20:14 PM Chest X-Ray 12/12/22 23:57 XR chest 1V portable CLINICAL HISTORY: new central line R IJ placement TECHNIQUE: Single frontal radiograph of the chest was obtained. Comparison: Comparison is made to chest radiograph 12/12/2022 FINDINGS: Right sided venous catheter terminates in the lower SVC. The cardiomediastinal silhouette is normal. The lungs are clear. No evidence of pleural effusion or pneumothorax. IMPRESSION: Satisfactory position of right central line without evidence of pneumothorax. ACT 112: Negative or not required by law. Electronically signed by: Liban Jessica M.D. 12/13/2022 6:58 AM
[2022-12-18] MEDS: cefTRIAXone SODIUM 2,000 MG in DEXTROSE 5% 50 ML IV SCH (15:02)
[2022-12-18] MEDS: PANTOprazole 40 MG TAB PO SCH (21:17)
[2022-12-19] MEDS: HEPARIN SOD 5,000 UNIT/0.5 ML VIAL SQ SCH ×3 (05:48→21:54)
[2022-12-19 06:18] LABS: Basophils # (auto) 0.02 K/uL (0-0.2); Basophils % (auto) 0.2 %; Eosinophils % (auto) 1.2 %; Hematocrit (blood only) 25.9 % (37.0-47.0); Hemoglobin 8.6 g/dl (12.0-16.0); Immature Granulocytes # (auto) 0.15 K/uL (0.01-0.20); Immature Granulocytes % (auto) 1.8 %; Lymphocytes # (auto) 0.87 K/uL (1.2-3.4); Lymphocytes % (auto) 10.2 %; Mean Corpuscular Hemoglobin 30.5 pg (25.0-34.0); Mean Corpuscular Hgb Conc 33.2 g/dL (32.0-36.0); Mean Corpuscular Volume 91.8 fL (80.0-100.0); Mean Platelet Volume 10.7 fL (9.4-12.4); Monocytes # (auto) 0.71 K/uL (0.11-0.59); Monocytes % (auto) 8.3 %; Neutrophils # (auto) 6.69 K/uL (1.40-6.50); Neutrophils % (auto) 78.3 %; Platelet Count 223 K/uL (130-400); RDW Coefficient of Variation 14.6 % (11.5-14.5); RDW Standard Deviation 49.3 fL (36.4-46.3); Red Blood Count 2.82 M/uL (4.20-5.40); White Blood Count 8.54 K/ul (4.8-10.8)
[2022-12-19 06:41] LABS: BUN Creatinine Ratio 25.4 (10-20); Calcium 8.5 mg/dl (8.6-10.3); Creatinine Clr Calc Pharmacy 37.7 ml/min; Est GFR (African American) 32.3 ml/min; Est GFR (Non-African American) 27.8 ml/min; Potassium 4.2 mmol/L (3.5-5.1)
[2022-12-19] MEDS: INSULIN ASPART PER UNIT CHARGE SC SCH ×4 (07:58→21:54)
[2022-12-19] MEDS: clonazePAM 0.5 MG TAB PO PRN ×2 (07:59→21:54)
[2022-12-19] MEDS: FLUTICASONE/VILANTEROL 100/25MCG 14 PUFFS/INHALER INH SCH (08:01)
[2022-12-19] MEDS: LANTUS PER UNIT CHARGE SC SCH (08:01)
[2022-12-19] MEDS: MONTELUKAST SODIUM 10 MG TABLET PO SCH (08:05)
[2022-12-19] MEDS: PANTOprazole 40 MG TAB PO SCH ×2 (08:05→21:57)
[2022-12-19] MEDS: FLUCONAZOLE 100 MG TAB PO SCH (08:05)
[2022-12-19] MEDS: MUPIROCIN 2% OINT 22 GM TUBE EXT SCH (08:37)
[2022-12-19] MEDS ORDERED: FLUCONAZOLE 100 MG TAB PO SCH (09:00)
--- NOTE | 2022-12-19 10:06 | Nephrology Progress Note ---
Date of Service December 19, 2022 Assessment & Plan Admission and Anticipated Discharge Date Admission Date: December 12, 2022 Subjective Assessment & Plan (1) DAVONTE (acute kidney injury): Plan: further improving stage 3 non oliguric DAVONTE on progressive CKD 3 versus preexisting DAVONTE based on August 2022 creatinine reading of 1.7. Patient is clinically and in terms of labs from a kidney standpoint improving though still critical. Note also however her OP creatinine is increasing dramatically over the past year from 1.0 on 08/2021 [facility] labs to 1.1 in 02/2022 and 1.7 08/2022 on [facility] readings; no definite baseline value at this time; would guess around 1.5. continue supportive care for GN bacteremia continue strict I/O Good urine Output. Creat trending down nicely and now 06/03 close enough to baseline. No electrolyte issues either. Daily labs. will sign off. Call if any new issues. Subjective Good urine. had EGD and had Harriet esophagitis. Review of Systems Review of Systems: All systems reviewed & are unremarkable except as noted in Subjective Physical Exam Constitutional: well developed, well nourished, + frail appearing and cooperative; no acute distress Eyes: EOM intact bilaterally ENMT: Ears: no external ear abnormality Nose: no external nose abnormality Mouth: + dry oral mucous membranes Neck: no nuchal rigidity Respiratory: normal respiratory effort; no labored breathing and no cough Auscultation: + diminished lung sounds and + crackles (fine bibasilar) Cardiovascular: Rate/Rhythm: regular rate and regular rhythm Extremities: no edema Gastrointestinal (Abdomen): Inspection/Auscultation: normal bowel sounds Percussion/Palpation: abdomen soft; abdomen nontender Musculoskeletal: Extremities: strength 5/5 throughout Skin: no rashes, warm and dry Neurologic: pastrana, fluent speech, no tremor Psychiatric: Orientation: alert and oriented x 3 Results & Data Vital Signs (Past 12 Hours) Vital Signs Temp Pulse Pulse Resp BP Pulse Ox O2 Del Method 12/19/22 07:30 88 12/19/22 07:12 37.2 C 85 18 101/63 97 Room Air 12/19/22 02:35 36.7 C 70 18 112/89 98 Room Air 12/18/22 23:07 79 12/18/22 22:43 37 C 72 18 135/68 98 Room Air
--- NOTE | 2022-12-19 11:34 | Hospitalist Progress Note ---
Date of Service December 19, 2022 Assessment & Plan (1) Severe sepsis: (2) DAVONTE (acute kidney injury): (3) Hyponatremia: (4) Metabolic acidosis: (5) Diarrhea: Plan 72-year-old female past medical history significant for type 2 diabetes, on long-term insulin, iron metabolism disease, diabetic retinopathy, hyperlipidemia, moderate persistent asthma, obstructive sleep apnea does not tolerate BiPAP nocturnal oxygen 3 to 4 L, hypertension, pulmonary hypertension, PVCs, irritable bowel syndrome, GERD, chronic kidney disease stage III, restless leg syndrome, medical marijuana use, depression, KARI, PTSD, panic disorder, history of COVID, presents with diarrhea going on for 1 week and found to have severe sepsis, DAVONTE, hyperkalemia, hyponatremia and metabolic acidosis. Septic shock on POA Urosepsis on POA On admission, hypotension and elevated lactic acid 2.7. Required vasopressors. Leukocytosis present on admission, normalized. Urine culture growing Klebsiella pneumoniae; pansensitive. Blood culture on admission positive for Klebsiella pneumoniae; pansensitive Repeat blood cultures negative so far. Status post Flagyl for 5 days. Plan to treat bacteremia with IV ceftriaxone for total of 10 days. She will switch over to p.o. ciprofloxacin if discharged before 10 days. 3 more days of antibiotic. Repeat blood culture negative so far. DAVONTE Hyponatremia Hyperkalemia Metabolic acidosis DAVONTE likely due to septic shock Resulting in hyponatremia, hyperkalemia and metabolic acidosis, improving Urine output reassuring Presented to creatinine of 13.3, downtrending. Baseline creatinine 0.8-1 Continue strict input and output monitoring. Close monitoring of serum sodium and potassium level Acute blood loss anemia Likely secondary to upper GI bleed Esophageal candidiasis Diffuse gastritis Hemoglobin down trended from 10.7 on admission to 7 on 12/16/2022 Transfuse 1 unit of packed RBC Fecal occult positive Underwent endoscopy on 12/17esophageal plaques found suspicious for candidiasis. Diffuse gastritis. Started on Diflucan as per recommendation. Currently on Diflucan 100 mg; plan to continue for 2 weeks. Plan for colonoscopy as outpatient. Continue Protonix twice daily. Elevated troponin likely due to demand ischemia from septic shock High-sensitivity troponin elevated Mostly from DAVONTE and demand ischemia from sepsis Echocardiogram showed EF of 55 to 60%; no significant valvular abnormality or wall motion abnormalities. Diarrhea Decreased appetite C. difficile colonization CT abdomen and pelvis reviewed; consistent with colitis. Possible side effect of Ozempic increased dose. C. difficile gene positive, toxin negative; likely due to colonization. Monitor for now. MRSA nares positive: Bactroban 2% on anterior nares for 5 days Type II diabetes Patient states this takes 8o units of long-acting insulin the morning and and as needed short-acting She is also on Ozempic Currently we will place on insulin sliding scale Pharmacy on board. Obstructive sleep apnea Does not tolerate BiPAP On oxygen 3 to 4 L nightly Restless leg syndrome On pramipexole Hypertension Holding lisinopril metoprolol and Lasix as patient currently having AK. Anxiety Resume Klonopin. Insomnia On clonidine nightly. Patient not taking it. Will discontinue at discharge. Hyperlipidemia Statin resumed. CK down trended. Irritable bowel syndrome Hold home medications for now History of asthma Continue home inhalers and nebs as needed GERD on Protonix DVT prophylaxis Heparin . Disposition PT OT evaluation done. Recommend rehab. Initially, patient wants to go home. Discussed in detail with the patient that she will benefit from going to rehab given the prolonged hospitalization with multiple medical issues. She is open to the idea of rehab. Case management informed. DNR/DNI Time spent evaluating patient, direct bedside care, chart review, placing orders, interpretation of diagnostic studies, discussion with consultants, patient, and family members, as well as other required patient management activities is 60 minutes. Please note the above document was generated using voice recognition software. It may contain grammatical, syntax or spelling errors. Any formal questions or concerns about the content, text or information contained within the body of this dictation should be directly addressed to the provider for clarification Admission and Anticipated Discharge Date Admission Date: December 12, 2022 Subjective Patient seen and examined at bedside. She is sitting up on the bed comfortably; not in distress. Denies fever or chills. Tolerating diet well. Review of Systems Review of Systems: All systems reviewed & are unremarkable except as noted in Subjective Physical Exam Physical Exam: Constitutional: Awake, alert orient x3. Not in any distress Respiratory: Bilateral vesicular breath sound Cardiovascular: RRR, no murmur, no edema Vessels: no JVD or carotid bruit Chest: normal inspection of chest Abdomen: normal bowel sounds, soft, nontender, no hepatosplenomegaly. Musculoskeletal: no cyanosis or clubbing, extremities motor strength 5/5. 1+ pitting edema present. Skin: no rashes, warm and dry normal turgor Neurologic: PERRL, EOMI, accommodation nl, no face palsy, no dysarthria CN's II- XI intact bilaterally and moves all extremities Psychiatric: A+Ox3, euthymic affect Results & Data Results & Data Vital Signs (Past 12 Hours) Vital Signs Temp Pulse Pulse Resp BP Pulse Ox O2 Del Method 12/19/22 11:17 37.1 C 87 18 109/78 98 Room Air 12/19/22 07:30 88 12/19/22 07:12 37.2 C 85 18 101/63 97 Room Air 12/19/22 02:35 36.7 C 70 18 112/89 98 Room Air Laboratory Results Laboratory Results WBC 8.54 K/ul (4.8-10.8) 12/19/22 06:01 RBC 2.82 M/uL (4.20-5.40) L 12/19/22 06:01 Hgb 8.6 g/dl (12.0-16.0) L 12/19/22 06:01 Hct 25.9 % (37.0-47.0) L 12/19/22 06:01 MCV 91.8 fL (80.0-100.0) 12/19/22 06:01 MCH 30.5 pg (25.0-34.0) 12/19/22 06:01 MCHC 33.2 g/dL (32.0-36.0) 12/19/22 06:01 RDW Std Deviation 49.3 fL (36.4-46.3) H 12/19/22 06:01 RDW Coeff of Pérez 14.6 % (11.5-14.5) H 12/19/22 06:01 Plt Count 223 K/uL (130-400) 12/19/22 06:01 MPV 10.7 fL (9.4-12.4) 12/19/22 06:01 Immature Gran % (Auto) 1.8 % 12/19/22 06:01 Neut % (Auto) 78.3 % 12/19/22 06:01 Lymph % (Auto) 10.2 % 12/19/22 06:01 [place] % (Auto) 8.3 % 12/19/22 06:01 Eos % (Auto) 1.2 % 12/19/22 06:01 Baso % (Auto) 0.2 % 12/19/22 06:01 Neut # (Auto) 6.69 K/uL (1.40-6.50) H 12/19/22 06:01 Lymph # (Auto) 0.87 K/uL (1.2-3.4) L 12/19/22 06:01 [place] # (Auto) 0.71 K/uL (0.11-0.59) H 12/19/22 06:01 Eos # (Auto) 0.10 K/uL (0-0.50) 12/19/22 06:01 Baso # (Auto) 0.02 K/uL (0-0.2) 12/19/22 06:01 Immature Gran # (Auto) 0.15 K/uL (0.01-0.20) 12/19/22 06:01 Dohle Bodies 1+ 12/13/22 05:25 RBC Morphology Unremarkable 12/16/22 06:41 Polychromasia 1+ 12/12/22 19:27 Echinocytes 2+ 12/13/22 05:25 PT 11.9 Seconds (9.0-12.0) 12/12/22 19:27 INR 1.1 (0.9-1.1) 12/12/22 19:27 APTT 24.2 Seconds (21.0-31.0) 12/12/22 19:27 PTT Ratio 0.9 12/12/22 19:27 VBG pH 7.47 (7.36-7.41) H 12/13/22 23:21 VBG pCO2 29 mmHg (38-50) L 12/13/22 23:21 VBG pO2 81 mmHg 12/13/22 23:21 VBG HCO3 21 mmol/L 12/13/22 23:21 VBG O2 Saturation 98.3 % 12/13/22 23:21 VBG Base Excess -1.5 mEq/L 12/13/22 23:21 Sodium 136 mmol/L (136-145) 12/19/22 06:01 Potassium 4.2 mmol/L (3.5-5.1) 12/19/22 06:01 Chloride 107 mmol/L (98-107) 12/19/22 06:01 Carbon Dioxide 21 mmol/L (21-32) 12/19/22 06:01 Anion Gap 8 (3-11) 12/19/22 06:01 BUN 46 mg/dl (6-23) H 12/19/22 06:01 Creatinine 1.81 mg/dl (0.6-1.2) H D 12/19/22 06:01 Est Cr Clr Drug Dosing 37.7 ml/min 12/19/22 06:01 Est GFR ( Amer) 32.3 ml/min 12/19/22 06:01 Est GFR (Non-Af Amer) 27.8 ml/min 12/19/22 06:01 BUN/Creatinine Ratio 25.4 (10-20) H 12/19/22 06:01 Glucose 143 mg/dl (70-99(Fasting)) H 12/19/22 06:01 POC Glucose 132 mg/dl (70-99) H 12/19/22 11:19 POC Glucose (other) 94 mg/dl (70-99) 12/14/22 16:26 Estimat Average Glucose 137 mg/dl 12/13/22 05:25 Hemoglobin A1c 6.4 % (4.5-5.6) H 12/13/22 05:25 Lactate 1.3 mmol/L (0.4-2.0) 12/13/22 00:27 Calcium 8.5 mg/dl (8.6-10.3) L 12/19/22 06:01 Phosphorus 3.4 mg/dl (2.5-4.9) 12/18/22 06:39 Magnesium 1.2 mg/dl (1.7-2.4) L 12/18/22 06:39 Total Bilirubin 0.7 mg/dl (0.2-1.0) 12/15/22 04:17 Direct Bilirubin 0.3 mg/dl (0-0.2) H 12/15/22 04:17 AST 45 U/L (13-39) H 12/15/22 04:17 ALT 23 U/L (7-52) 12/15/22 04:17 Alkaline Phosphatase 163 U/L (34-104) H 12/15/22 04:17 Total Creatine Kinase 42 U/L (26-192) 12/19/22 06:01 Troponin I High Sens 146.2 pg/ml (0-14) H* 12/13/22 19:17 Troponin I High Sens Cancelled 12/13/22 19:17 Total Protein 5.6 gm/dl (6.0-8.3) L 12/15/22 04:17 Albumin 2.5 gm/dl (3.4-5.0) L 12/15/22 04:17 Lipase 187 U/L (11-82) H 12/12/22 19:27 Procalcitonin 14.61 ng/ml (0-0.5) H 12/12/22 19:27 Random Cortisol 31.95 mcg/dl 12/13/22 00:23 Urine Color Dark Yellow 12/12/22 20:33 Urine Appearance Turbid (Clear) A 12/12/22 20:33 Urine pH 7.0 (4.5-7.5) 12/12/22 20:33 Ur Specific [place] 1.016 (1.000-1.030) 12/12/22 20:33 Urine Protein 3+ (Negative) H 12/12/22 20:33 Urine Glucose (UA) Negative (Negative) 12/12/22 20:33 Urine Ketones Negative (Negative) 12/12/22 20:33 Urine Blood 3+ (Negative) H 12/12/22 20:33 Urine Nitrite Negative (Negative) 12/12/22 20:33 Urine Bilirubin Negative (Negative) 12/12/22 20:33 Urine Urobilinogen Negative (Negative) 12/12/22 20:33 Ur Leukocyte Esterase 3+ (Negative) H 12/12/22 20:33 Urine WBC (Auto) >30 /hpf (0-5) H 12/12/22 20:33 Urine RBC (Auto) 10-30 /hpf (0-4) H 12/12/22 20:33 U Hyaline Cast (Auto) 0 /lpf (0-5) 12/12/22 20:33 U Epithel Cells (Auto) >30 /lpf (0-5) H 12/12/22 20:33 Urine Bacteria (Auto) 4+ (Negative) H 12/12/22 20:33 Ur Renal Epithelial Cell 10-20 /lpf (0-5) H 12/12/22 20:33 Urine Yeast Not Reportable 12/12/22 20:33 Nasal Screen MRSA (PCR) Positive (Negative) A 12/12/22 23:00 Stool Occult Bld Scrn Positive (Negative) A 12/16/22 10:45 Stl C. cayetanensis PCR Not Detected (NotDetected) 12/15/22 09:27 Stool Rotavirus A PCR Not Detected (NotDetected) 12/15/22 09:27 Stl Adenov F 40/41 PCR Not Detected (NotDetected) 12/15/22 09:27 Stool Astrovirus (PCR) Not Detected (NotDetected) 12/15/22 09:27 Stool Campylobacter PCR Not Detected (NotDetected) 12/15/22 09:27 Stl C. diff Tox B Gene Positive Cdiff Gene (Neg) H 12/15/22 09:27 Stl C.difficile Tox A&B Negative Cdiff Toxin (Negative) 12/15/22 09:27 Stool Cryptosporidium PCR Not Detected (NotDetected) 12/15/22 09:27 Stl E.coli Shiga Tox PCR Not Detected (NotDetected) 12/15/22 09:27 Stl Enterotoxigenic E PCR Not Detected (NotDetected) 12/15/22 09:27 Stool EPEC (PCR) Not Detected (NotDetected) 12/15/22 09:27 Stool EAEC (PCR) Not Detected (NotDetected) 12/15/22 09:27 Stl E. histolytica PCR Not Detected (NotDetected) 12/15/22 09:27 Stool Giardia Lamblia PCR Not Detected (NotDetected) 12/15/22 09:27 Stool Salmonella PCR Not Detected (NotDetected) 12/15/22 09:27 Stool Sapovirus (PCR) Not Detected (NotDetected) 12/15/22 09:27 Stl P. shigelloides PCR Not Detected (NotDetected) 12/15/22 09:27 Stl Shigella/EIEC PCR Not Detected (NotDetected) 12/15/22 09:27 St Y.enterocolitica PCR Not Detected (NotDetected) 12/15/22 09:27 Stool Vibrio (PCR) Not Detected (NotDetected) 12/15/22 09:27 Stl Vibrio cholerae PCR Not Detected (NotDetected) 12/15/22 09:27 Stl Norovirus GI/GII PCR Not Detected (NotDetected) 12/15/22 09:27 Adenovirus (PCR) Not Detected (NotDetected) 12/12/22 19:27 B. pertussis DNA (PCR) Not Detected (NotDetected) 12/12/22 19:27 B.parapertussis DNA PCR Not Detected (NotDetected) 12/12/22 19:27 C. pneumoniae DNA (PCR) Not Detected (NotDetected) 12/12/22 19:27 Coronavirus OC43 (PCR) Not Detected (NotDetected) 12/12/22 19:27 Coronavirus HKU1 (PCR) Not Detected (NotDetected) 12/12/22 19:27 Coronavirus 229E (PCR) Not Detected (NotDetected) 12/12/22 19:27 SARS-CoV-2 (PCR) Not Detected (NotDetected) 12/12/22 19:27 Coronavirus NL63 (PCR) Not Detected (NotDetected) 12/12/22 19:27 Enterobacterales (PCR) DETECTED (NotDetected) A 12/12/22 19:27 Human Metapneumovir PCR Not Detected (NotDetected) 12/12/22 19:27 Influenza Type A (PCR) Not Detected (NotDetected) 12/12/22 19:27 Influenza Type B (PCR) Not Detected (NotDetected) 12/12/22 19:27 K. pneumoniae group (PCR) DETECTED (NotDetected) A 12/12/22 19:27 M. pneumoniae (PCR) Not Detected (NotDetected) 12/12/22 19:27 Parainfluenza 1 (PCR) Not Detected (NotDetected) 12/12/22 19:27 Parainfluenza 2 (PCR) Not Detected (NotDetected) 12/12/22 19:27 Parainfluenza 3 (PCR) Not Detected (NotDetected) 12/12/22 19:27 Parainfluenza 4 (PCR) Not Detected (NotDetected) 12/12/22 19:27 RSV (PCR) Not Detected (NotDetected) 12/12/22 19:27 Entero/Rhino (PCR) Not Detected (NotDetected) 12/12/22 19:27 mcr-1 Colistin Res Gene PCR Not Detected (NotDetected) 12/12/22 19:27 blaIMP Car res Gene PCR Not Detected (NotDetected) 12/12/22 19:27 KPC-Carbap Res Gene PCR Not Detected (NotDetected) 12/12/22 19:27 blaNDM Car Res Gene PCR Not Detected (NotDetected) 12/12/22 19:27 OXA-48 Carbapenem Resis Gene (PCR) Not Detected (NotDetected) 12/12/22 19:27 blaVIM Car Res Gene PCR Not Detected (NotDetected) 12/12/22 19:27 CTX-M Gene Resistance (PCR) Not Detected (NotDetected) 12/12/22 19:27 Bld Cult ID Panel PCR See PCR Comment (NotDetected) 12/12/22 19:27 Blood Type B Positive 12/16/22 13:02 Antibody Screen NEGATIVE 12/16/22 13:02 Crossmatch See Detail 12/16/22 13:02 Impressions Abdomen/Pelvis CT 12/12/22 19:21 Exam(s): CT ABDOMEN + PELVIS Without Contrast EXAM: CT Abdomen and Pelvis Without Intravenous Contrast CLINICAL HISTORY: Reason for exam: abd apin. TECHNIQUE: Axial computed tomography images of the abdomen and pelvis without intravenous contrast. CTDI is 28.14 mGy and DLP is 1415.4 mGy-cm. Automated exposure control was utilized for the study. A dose lowering technique was utilized adhering to the principles of ALARA. COMPARISON: No relevant prior studies available. FINDINGS: Lung bases: Unremarkable. No mass. No consolidation. ABDOMEN: Liver: Unremarkable. Gallbladder and bile ducts: Cholecystectomy clips. No ductal dilation. Pancreas: Unremarkable. No ductal dilation. Spleen: Unremarkable. No splenomegaly. Adrenals: Unremarkable. No mass. Kidneys and ureters: Unremarkable. No hydronephrosis or nephrolithiasis. Stomach and bowel: Circumferential wall thickening of the descending and sigmoid colon, with mild pericolonic fat stranding, consistent with mild colitis. No obstruction. PELVIS: Appendix: No findings to suggest acute appendicitis. Bladder: Decompressed urinary bladder. No stones. Reproductive: Unremarkable as visualized. ABDOMEN and PELVIS: Intraperitoneal space: Unremarkable. No free air. No significant fluid collection. Bones/joints: Degenerative changes of the spine. No acute fracture. No dislocation. Soft tissues: Unremarkable. Vasculature: Atherosclerotic changes of the aorta. No abdominal aortic aneurysm. Lymph nodes: Unremarkable. No enlarged lymph nodes. IMPRESSION: Circumferential wall thickening of the descending and sigmoid colon, with mild pericolonic fat stranding, consistent with mild colitis. Electronically signed by: Cezar Hansen MD 12/12/22 20:14 PM Chest X-Ray 12/12/22 23:57 XR chest 1V portable CLINICAL HISTORY: new central line R IJ placement TECHNIQUE: Single frontal radiograph of the chest was obtained. Comparison: Comparison is made to chest radiograph 12/12/2022 FINDINGS: Right sided venous catheter terminates in the lower SVC. The cardiomediastinal silhouette is normal. The lungs are clear. No evidence of pleural effusion or pneumothorax. IMPRESSION: Satisfactory position of right central line without evidence of pneumothorax. ACT 112: Negative or not required by law. Electronically signed by: Liban Jessica M.D. 12/13/2022 6:58 AM
--- NOTE | 2022-12-19 12:09 | Pharmacy Report ---
Pharmacy Glycemic Short Note 2 - Date of Service December 19, 2022 - Glycemic Short BSG Results (Last 24 hours): 12/18/22 12/18/22 12/19/22 16:08 20:18 06:01 Glucose 143 H POC Glucose 106 H 137 H 12/19/22 12/19/22 07:14 11:19 Glucose POC Glucose 139 H 132 H OUTPATIENT ANTIDIABETIC REGIMEN: * Ozempic 2 mg SC once weekly * Note: diarrhea on admission correlates with increased Ozempic dose * HbA1c 6/4% on 12/13/22 ASSESSMENT: 12/19: * Patient received 51 units of insulin yesterday, 25 of which were basal. BSGs were [phone] mg/dL and fasting this morning was 139 mg/dL. * Will continue with current basal dose. * Breakfast NovoLog CR was tightened this morning and lunch BSG subsequently improved at 132 mg/dL. 12/17: * Patient received 57 units of insulin yesterday, 25 of which were basal. BSGs were [phone] mg/dL and today's fasting was 107 mg/dL. * Lantus dose was decreased somewhat this morning as patient was NPO at the time pending GI evaluation. Patient is now ordered a diet, but no carbs consumed for breakfast and lunch. Lunch BSG elevation at 221 mg/dL may be in part a stress response immediately post endoscopy. Will resume previous lantus dose of 25 units for tomorrow morning. * Will assess dinner BSG trend again today to determine if tighter CR is needed at lunchtime. 12/14: * Liane received 43 units of insulin yesterday, 25 units basal + 18 units bolus. BSGs were: [phone] mg/dL. * Remains on Ceftriaxone and Metronidazole today. Vasopressin was titrated off over night. Still requiring a very minor dose of Norepinephrine to maintain MA Ps > 65. Midodrine added this morning to help titrate off pressor. NS is running at 125 mL/hr. Diet was advanced to full liquid this morning. * Fasting BSG was 142 mg/dL this AM. Gave a 20 unit dose of Lantus this AM. Will also add a scaled basal dose for this evening given patient is now eating (tolerated 42 g of CHO with breakfast). * Postprandial BSG at lunch was elevated at 249 mg/dL. Will tighten carb ratio. 12/13: * 72 yo F with T2DM admitted to the ICU with sepsis 2nd K. pneumo bacteremia, likely UTI or GI source. Currently NPO and weaning off pressors. * Previous admissions reviewed - most recent one where patient was on steroids for COVID - not likely helpful for this admission while not on steroids. Also reviewed multiple day admission in 2018 while not on steroids. Lantus dose in itially exceeded 130 units/day for many days initially but was decreased down to ~50 units/day after AM hypoglycemic episode ~3 days into the admission. * Will half Lantus dose as compared to the end of the previous admission due to NPO status and also ICU status (goal BSG 140-180 mg/dL) * OK to utilized more aggressive correction factor - similar to previous and also low-dose Lantus. Weight-based moderate stress CHO ratio for if/when patient is ordered a diet PLAN FOR INPATIENT GLYCEMIC CONTROL: * Basal insulin * Lantus 18 units SC X 1 today, 25 units SC qam to resume tomorrow * Bolus insulin * NovoLog per scale ACHS or Q6hrs while NPO * Goal Range: Low 110 mg/dL - High 140 mg/dL * Correction Factor: 20 mg/dL/unit * Nutritional / Prandial insulin per carb ratio of 1 unit per 5 (3 for breakfast) grams CHO consumed
[2022-12-19] MEDS: ATORVASTATIN 40 MG TAB PO SCH (12:37)
[2022-12-19] MEDS: ASPIRIN 81 MG ECTAB PO SCH (12:55)
[2022-12-19] MEDS: ACETAMINOPHEN 325 MG TAB PO PRN (13:25)
[2022-12-19] MEDS: cefTRIAXone SODIUM 2,000 MG in DEXTROSE 5% 50 ML IV SCH (13:26)
[2022-12-19] MEDS: PRAMIPEXOLE DIHYDROCHLO 0.5 MG TAB PO SCH (21:57)
[2022-12-20] MEDS: HEPARIN SOD 5,000 UNIT/0.5 ML VIAL SQ SCH ×3 (06:29→21:17)
[2022-12-20 07:28] LABS: Basophils # (auto) 0.01 K/uL (0-0.2); Basophils % (auto) 0.2 %; Eosinophils # (auto) 0.09 K/uL (0-0.50); Eosinophils % (auto) 1.4 %; Hematocrit (blood only) 24.2 % (37.0-47.0); Hemoglobin 7.7 g/dl (12.0-16.0); Immature Granulocytes # (auto) 0.12 K/uL (0.01-0.20); Immature Granulocytes % (auto) 1.9 %; Lymphocytes # (auto) 0.87 K/uL (1.2-3.4); Lymphocytes % (auto) 13.9 %; Mean Corpuscular Hemoglobin 29.6 pg (25.0-34.0); Mean Corpuscular Hgb Conc 31.8 g/dL (32.0-36.0); Mean Corpuscular Volume 93.1 fL (80.0-100.0); Mean Platelet Volume 11.2 fL (9.4-12.4); Monocytes # (auto) 0.57 K/uL (0.11-0.59); Monocytes % (auto) 9.1 %; Neutrophils # (auto) 4.61 K/uL (1.40-6.50); Neutrophils % (auto) 73.5 %; Platelet Count 231 K/uL (130-400); RDW Coefficient of Variation 14.6 % (11.5-14.5); RDW Standard Deviation 49.5 fL (36.4-46.3); White Blood Count 6.27 K/ul (4.8-10.8)
[2022-12-20 07:53] LABS: RBC Morphology Unremarkable
[2022-12-20 07:54] LABS: Albumin Globulin Ratio 0.7 (0.9-2); Albumin Level 2.7 gm/dl (3.4-5.0); BUN Creatinine Ratio 21.1 (10-20); Bilirubin,Total 0.4 mg/dl (0.2-1.0); Calcium 8.4 mg/dl (8.6-10.3); Creatinine Clr Calc Pharmacy 46.1 ml/min; Est GFR (African American) 39.8 ml/min; Est GFR (Non-African American) 34.4 ml/min; Globulin 3.9 gm/dl (2.5-4.0); Potassium 4.4 mmol/L (3.5-5.1); Total Protein 6.6 gm/dl (6.0-8.3)
[2022-12-20] MEDS: INSULIN ASPART PER UNIT CHARGE SC SCH ×4 (08:23→20:51)
[2022-12-20] MEDS: LANTUS PER UNIT CHARGE SC SCH (08:25)
[2022-12-20] MEDS: MONTELUKAST SODIUM 10 MG TABLET PO SCH (08:27)
[2022-12-20] MEDS: PANTOprazole 40 MG TAB PO SCH ×2 (08:28→21:18)
[2022-12-20] MEDS: ATORVASTATIN 40 MG TAB PO SCH (08:28)
[2022-12-20] MEDS: FLUCONAZOLE 100 MG TAB PO SCH (08:29)
[2022-12-20] MEDS: ASPIRIN 81 MG ECTAB PO SCH (08:31)
[2022-12-20] MEDS: FLUTICASONE/VILANTEROL 100/25MCG 14 PUFFS/INHALER INH SCH (08:32)
[2022-12-20] MEDS: clonazePAM 0.5 MG TAB PO PRN ×2 (08:35→21:18)
[2022-12-20] MEDS: FUROSEMIDE 40 MG/4 ML VIAL IV SCH ×2 (10:17→14:41)
--- NOTE | 2022-12-20 12:38 | Hospitalist Progress Note ---
Date of Service December 20, 2022 Assessment & Plan (1) Severe sepsis: (2) DAVONTE (acute kidney injury): (3) Hyponatremia: (4) Metabolic acidosis: (5) Diarrhea: Plan 72-year-old female past medical history significant for type 2 diabetes, on long-term insulin, iron metabolism disease, diabetic retinopathy, hyperlipidemia, moderate persistent asthma, obstructive sleep apnea does not tolerate BiPAP nocturnal oxygen 3 to 4 L, hypertension, pulmonary hypertension, PVCs, irritable bowel syndrome, GERD, chronic kidney disease stage III, restless leg syndrome, medical marijuana use, depression, KARI, PTSD, panic disorder, history of COVID, presents with diarrhea going on for 1 week and found to have severe sepsis, DAVONTE, hyperkalemia, hyponatremia and metabolic acidosis. Septic shock on POA Urosepsis on POA On admission, hypotension and elevated lactic acid 2.7. Required vasopressors. Leukocytosis present on admission, normalized. Urine culture growing Klebsiella pneumoniae; pansensitive. Blood culture on admission positive for Klebsiella pneumoniae; pansensitive Repeat blood cultures negative so far. Status post Flagyl for 5 days. Plan to treat bacteremia with IV ceftriaxone for total of 10 days. She will switch over to p.o. ciprofloxacin if discharged before 10 days. 2 more days of antibiotic. Repeat blood culture negative so far. Ambulatory dysfunction Patient has 3+ pitting edema in bilateral lower extremities. Likely due to volume resuscitation during the hospitalization due to septic shock Reports difficulty putting on shoes and ambulation due to it. Plan to start diuretics 40 mg twice daily. PT OT evaluation has completed; recommended rehab. However, patient has declined to go to rehab and plans to go home with home PT OT. DAVONTE Hyponatremia Hyperkalemia Metabolic acidosis DAVONTE likely due to septic shock Resulting in hyponatremia, hyperkalemia and metabolic acidosis, improving Urine output reassuring Presented to creatinine of 13.3, downtrending. Baseline creatinine 1.5 as per nephrology. Continue strict input and output monitoring. Close monitoring of serum sodium and potassium level Acute blood loss anemia Likely secondary to upper GI bleed Esophageal candidiasis Diffuse gastritis Hemoglobin down trended from 10.7 on admission to 7 on 12/16/2022 Transfuse 1 unit of packed RBC Fecal occult positive Underwent endoscopy on 12/17esophageal plaques found suspicious for candidiasis. Diffuse gastritis. Started on Diflucan as per recommendation. Currently on Diflucan 100 mg; plan to continue for 2 weeks. Plan for colonoscopy as outpatient. Continue Protonix twice daily. Elevated troponin likely due to demand ischemia from septic shock High-sensitivity troponin elevated Mostly from DAVONTE and demand ischemia from sepsis Echocardiogram showed EF of 55 to 60%; no significant valvular abnormality or wall motion abnormalities. Diarrhea Decreased appetite C. difficile colonization CT abdomen and pelvis reviewed; consistent with colitis. Possible side effect of Ozempic increased dose. C. difficile gene positive, toxin negative; likely due to colonization. Monitor for now. MRSA nares positive: Bactroban 2% on anterior nares for 5 days Type II diabetes Patient states this takes 8o units of long-acting insulin the morning and and as needed short-acting She is also on Ozempic Currently we will place on insulin sliding scale Pharmacy on board. Obstructive sleep apnea Does not tolerate BiPAP On oxygen 3 to 4 L nightly Restless leg syndrome On pramipexole Hypertension Holding lisinopril metoprolol and Lasix as patient currently having AK. Anxiety Resume Klonopin. Insomnia On clonidine nightly. Patient not taking it. Will discontinue at discharge. Hyperlipidemia Statin resumed. CK down trended. Irritable bowel syndrome Hold home medications for now History of asthma Continue home inhalers and nebs as needed GERD on Protonix DVT prophylaxis Heparin . Disposition PT OT evaluation done. Recommend rehab. Initially, patient wants to go home. Discussed in detail with the patient that she will benefit from going to rehab given the prolonged hospitalization with multiple medical issues. Patient continues to be hospitalized due to need for IV diuretics. DNR/DNI Time spent evaluating patient, direct bedside care, chart review, placing orders, interpretation of diagnostic studies, discussion with consultants, patient, and family members, as well as other required patient management activities is 60 minutes. Please note the above document was generated using voice recognition software. It may contain grammatical, syntax or spelling errors. Any formal questions or concerns about the content, text or information contained within the body of this dictation should be directly addressed to the provider for clarification Admission and Anticipated Discharge Date Admission Date: December 12, 2022 Subjective Patient seen and examined at bedside. She reports swelling of bilateral leg with significant edema. Reports that she has difficulty ambulation due to it. Review of Systems Review of Systems: All systems reviewed & are unremarkable except as noted in Subjective Physical Exam Physical Exam: Constitutional: Awake, alert orient x3. Not in any distress Respiratory: Bilateral vesicular breath sound Cardiovascular: RRR, no murmur, no edema Vessels: no JVD or carotid bruit Chest: normal inspection of chest Abdomen: normal bowel sounds, soft, nontender, no hepatosplenomegaly. Musculoskeletal: no cyanosis or clubbing, extremities motor strength 5/5. 3+ pitting edema present. Skin: no rashes, warm and dry normal turgor Neurologic: PERRL, EOMI, accommodation nl, no face palsy, no dysarthria CN's II- XI intact bilaterally and moves all extremities Psychiatric: A+Ox3, euthymic affect Results & Data Results & Data Vital Signs (Past 12 Hours) Vital Signs Temp Pulse Pulse Resp BP Pulse Ox O2 Del Method 12/20/22 11:34 36.9 C 91 H 18 130/83 96 Room Air 12/20/22 06:00 83 12/20/22 07:14 37.3 C 87 18 139/74 97 Room Air 12/20/22 03:21 36.9 C 84 16 129/77 97 Room Air Laboratory Results Laboratory Results WBC 6.27 K/ul (4.8-10.8) 12/20/22 06:32 RBC 2.60 M/uL (4.20-5.40) L 12/20/22 06:32 Hgb 7.7 g/dl (12.0-16.0) L 12/20/22 06:32 Hct 24.2 % (37.0-47.0) L 12/20/22 06:32 MCV 93.1 fL (80.0-100.0) 12/20/22 06:32 MCH 29.6 pg (25.0-34.0) 12/20/22 06:32 MCHC 31.8 g/dL (32.0-36.0) L 12/20/22 06:32 RDW Std Deviation 49.5 fL (36.4-46.3) H 12/20/22 06:32 RDW Coeff of Pérez 14.6 % (11.5-14.5) H 12/20/22 06:32 Plt Count 231 K/uL (130-400) 12/20/22 06:32 MPV 11.2 fL (9.4-12.4) 12/20/22 06:32 Immature Gran % (Auto) 1.9 % 12/20/22 06:32 Neut % (Auto) 73.5 % 12/20/22 06:32 Lymph % (Auto) 13.9 % 12/20/22 06:32 [place] % (Auto) 9.1 % 12/20/22 06:32 Eos % (Auto) 1.4 % 12/20/22 06:32 Baso % (Auto) 0.2 % 12/20/22 06:32 Neut # (Auto) 4.61 K/uL (1.40-6.50) 12/20/22 06:32 Lymph # (Auto) 0.87 K/uL (1.2-3.4) L 12/20/22 06:32 [place] # (Auto) 0.57 K/uL (0.11-0.59) 12/20/22 06:32 Eos # (Auto) 0.09 K/uL (0-0.50) 12/20/22 06:32 Baso # (Auto) 0.01 K/uL (0-0.2) 12/20/22 06:32 Immature Gran # (Auto) 0.12 K/uL (0.01-0.20) 12/20/22 06:32 Dohle Bodies 1+ 12/13/22 05:25 RBC Morphology Unremarkable 12/20/22 06:32 Polychromasia 1+ 12/12/22 19: Echinocytes 2+ 12/13/22 05:25 PT 11.9 Seconds (9.0-12.0) 12/12/22 19: INR 1.1 (0.9-1.1) 12/12/22 19: APTT 24.2 Seconds (21.0-31.0) 12/12/22 19: PTT Ratio 0.9 12/12/22 19: VBG pH 7.47 (7.36-7.41) H 12/13/22 23: VBG pCO2 29 mmHg (38-50) L 12/13/22 23:21 VBG pO2 81 mmHg 12/13/22 23:21 VBG HCO3 21 mmol/L 12/13/22 23:21 VBG O2 Saturation 98.3 % 12/13/22 23: VBG Base Excess -1.5 mEq/L 12/13/22 23:21 Sodium 136 mmol/L (136-145) 12/20/22 06:32 Potassium 4.4 mmol/L (3.5-5.1) 12/20/22 06:32 Chloride 108 mmol/L (98-107) H 12/20/22 06:32 Carbon Dioxide 21 mmol/L (21-32) 12/20/22 06:32 Anion Gap 7 (3-11) 12/20/22 06:32 BUN 32 mg/dl (6-23) H 12/20/22 06:32 Creatinine 1.52 mg/dl (0.6-1.2) H 12/20/22 06:32 Est Cr Clr Drug Dosing 46.1 ml/min 12/20/22 06:32 Est GFR ( Amer) 39.8 ml/min 12/20/22 06:32 Est GFR (Non-Af Amer) 34.4 ml/min 12/20/22 06:32 BUN/Creatinine Ratio 21.1 (10-20) H 12/20/22 06:32 Glucose 160 mg/dl (70-99(Fasting)) H 12/20/22 06:32 POC Glucose 122 mg/dl (70-99) H 12/20/22 11:37 POC Glucose (other) 94 mg/dl (70-99) 12/14/22 16:26 Estimat Average Glucose 137 mg/dl 12/13/22 05:25 Hemoglobin A1c 6.4 % (4.5-5.6) H 12/13/22 05:25 Lactate 1.3 mmol/L (0.4-2.0) 12/13/22 00:27 Calcium 8.4 mg/dl (8.6-10.3) L 12/20/22 06:32 Phosphorus 3.4 mg/dl (2.5-4.9) 12/18/22 06:39 Magnesium 1.2 mg/dl (1.7-2.4) L 12/18/22 06:39 Total Bilirubin 0.4 mg/dl (0.2-1.0) 12/20/22 06:32 Direct Bilirubin 0.3 mg/dl (0-0.2) H 12/15/22 04:17 AST 19 U/L (13-39) 12/20/22 06:32 ALT 17 U/L (7-52) 12/20/22 06:32 Alkaline Phosphatase 117 U/L (34-104) H 12/20/22 06:32 Total Creatine Kinase 42 U/L (26-192) 12/19/22 06:01 Troponin I High Sens 146.2 pg/ml (0-14) H* 12/13/22 19:17 Troponin I High Sens Cancelled 12/13/22 19:17 Total Protein 6.6 gm/dl (6.0-8.3) 12/20/22 06:32 Albumin 2.7 gm/dl (3.4-5.0) L 12/20/22 06:32 Globulin 3.9 gm/dl (2.5-4.0) 12/20/22 06:32 Albumin/Globulin Ratio 0.7 (0.9-2) L 12/20/22 06:32 Lipase 187 U/L (11-82) H 12/12/22 19:27 Procalcitonin 14.61 ng/ml (0-0.5) H 12/12/22 19:27 Random Cortisol 31.95 mcg/dl 12/13/22 00:23 Urine Color Dark Yellow 12/12/22 20:33 Urine Appearance Turbid (Clear) A 12/12/22 20:33 Urine pH 7.0 (4.5-7.5) 12/12/22 20:33 Ur Specific [place] 1.016 (1.000-1.030) 12/12/22 20:33 Urine Protein 3+ (Negative) H 12/12/22 20:33 Urine Glucose (UA) Negative (Negative) 12/12/22 20:33 Urine Ketones Negative (Negative) 12/12/22 20:33 Urine Blood 3+ (Negative) H 12/12/22 20:33 Urine Nitrite Negative (Negative) 12/12/22 20:33 Urine Bilirubin Negative (Negative) 12/12/22 20:33 Urine Urobilinogen Negative (Negative) 12/12/22 20:33 Ur Leukocyte Esterase 3+ (Negative) H 12/12/22 20:33 Urine WBC (Auto) >30 /hpf (0-5) H 12/12/22 20:33 Urine RBC (Auto) 10-30 /hpf (0-4) H 12/12/22 20:33 U Hyaline Cast (Auto) 0 /lpf (0-5) 12/12/22 20:33 U Epithel Cells (Auto) >30 /lpf (0-5) H 12/12/22 20:33 Urine Bacteria (Auto) 4+ (Negative) H 12/12/22 20:33 Ur Renal Epithelial Cell 10-20 /lpf (0-5) H 12/12/22 20:33 Urine Yeast Not Reportable 12/12/22 20:33 Nasal Screen MRSA (PCR) Positive (Negative) A 12/12/22 23:00 Stool Occult Bld Scrn Positive (Negative) A 12/16/22 10:45 Stl C. cayetanensis PCR Not Detected (NotDetected) 12/15/22 09:27 Stool Rotavirus A PCR Not Detected (NotDetected) 12/15/22 09:27 Stl Adenov F 40/41 PCR Not Detected (NotDetected) 12/15/22 09:27 Stool Astrovirus (PCR) Not Detected (NotDetected) 12/15/22 09:27 Stool Campylobacter PCR Not Detected (NotDetected) 12/15/22 09:27 Stl C. diff Tox B Gene Positive Cdiff Gene (Neg) H 12/15/22 09:27 Stl C.difficile Tox A&B Negative Cdiff Toxin (Negative) 12/15/22 09:27 Stool Cryptosporidium PCR Not Detected (NotDetected) 12/15/22 09:27 Stl E.coli Shiga Tox PCR Not Detected (NotDetected) 12/15/22 09:27 Stl Enterotoxigenic E PCR Not Detected (NotDetected) 12/15/22 09:27 Stool EPEC (PCR) Not Detected (NotDetected) 12/15/22 09:27 Stool EAEC (PCR) Not Detected (NotDetected) 12/15/22 09:27 Stl E. histolytica PCR Not Detected (NotDetected) 12/15/22 09:27 Stool Giardia Lamblia PCR Not Detected (NotDetected) 12/15/22 09:27 Stool Salmonella PCR Not Detected (NotDetected) 12/15/22 09:27 Stool Sapovirus (PCR) Not Detected (NotDetected) 12/15/22 09:27 Stl P. shigelloides PCR Not Detected (NotDetected) 12/15/22 09:27 Stl Shigella/EIEC PCR Not Detected (NotDetected) 12/15/22 09:27 St Y.enterocolitica PCR Not Detected (NotDetected) 12/15/22 09:27 Stool Vibrio (PCR) Not Detected (NotDetected) 12/15/22 09:27 Stl Vibrio cholerae PCR Not Detected (NotDetected) 12/15/22 09:27 Stl Norovirus GI/GII PCR Not Detected (NotDetected) 12/15/22 09:27 Adenovirus (PCR) Not Detected (NotDetected) 12/12/22 19:27 B. pertussis DNA (PCR) Not Detected (NotDetected) 12/12/22 19:27 B.parapertussis DNA PCR Not Detected (NotDetected) 12/12/22 19:27 C. pneumoniae DNA (PCR) Not Detected (NotDetected) 12/12/22 19:27 Coronavirus OC43 (PCR) Not Detected (NotDetected) 12/12/22 19:27 Coronavirus HKU1 (PCR) Not Detected (NotDetected) 12/12/22 19:27 Coronavirus 229E (PCR) Not Detected (NotDetected) 12/12/22 19:27 SARS-CoV-2 (PCR) Not Detected (NotDetected) 12/12/22 19:27 Coronavirus NL63 (PCR) Not Detected (NotDetected) 12/12/22 19:27 Enterobacterales (PCR) DETECTED (NotDetected) A 12/12/22 19:27 Human Metapneumovir PCR Not Detected (NotDetected) 12/12/22 19:27 Influenza Type A (PCR) Not Detected (NotDetected) 12/12/22 19:27 Influenza Type B (PCR) Not Detected (NotDetected) 12/12/22 19:27 K. pneumoniae group (PCR) DETECTED (NotDetected) A 12/12/22 19:27 M. pneumoniae (PCR) Not Detected (NotDetected) 12/12/22 19:27 Parainfluenza 1 (PCR) Not Detected (NotDetected) 12/12/22 19:27 Parainfluenza 2 (PCR) Not Detected (NotDetected) 12/12/22 19:27 Parainfluenza 3 (PCR) Not Detected (NotDetected) 12/12/22 19:27 Parainfluenza 4 (PCR) Not Detected (NotDetected) 12/12/22 19:27 RSV (PCR) Not Detected (NotDetected) 12/12/22 19:27 Entero/Rhino (PCR) Not Detected (NotDetected) 12/12/22 19:27 mcr-1 Colistin Res Gene PCR Not Detected (NotDetected) 12/12/22 19:27 blaIMP Car res Gene PCR Not Detected (NotDetected) 12/12/22 19:27 KPC-Carbap Res Gene PCR Not Detected (NotDetected) 12/12/22 19:27 blaNDM Car Res Gene PCR Not Detected (NotDetected) 12/12/22 19:27 OXA-48 Carbapenem Resis Gene (PCR) Not Detected (NotDetected) 12/12/22 19:27 blaVIM Car Res Gene PCR Not Detected (NotDetected) 12/12/22 19:27 CTX-M Gene Resistance (PCR) Not Detected (NotDetected) 12/12/22 19:27 Bld Cult ID Panel PCR See PCR Comment (NotDetected) 12/12/22 19:27 Blood Type B Positive 12/16/22 13:02 Antibody Screen NEGATIVE 12/16/22 13:02 Crossmatch See Detail 12/16/22 13:02 Impressions Abdomen/Pelvis CT 12/12/22 19:21 Exam(s): CT ABDOMEN + PELVIS Without Contrast EXAM: CT Abdomen and Pelvis Without Intravenous Contrast CLINICAL HISTORY: Reason for exam: abd apin. TECHNIQUE: Axial computed tomography images of the abdomen and pelvis without intravenous contrast. CTDI is 28.14 mGy and DLP is 1415.4 mGy-cm. Automated exposure control was utilized for the study. A dose lowering technique was utilized adhering to the principles of ALARA. COMPARISON: No relevant prior studies available. FINDINGS: Lung bases: Unremarkable. No mass. No consolidation. ABDOMEN: Liver: Unremarkable. Gallbladder and bile ducts: Cholecystectomy clips. No ductal dilation. Pancreas: Unremarkable. No ductal dilation. Spleen: Unremarkable. No splenomegaly. Adrenals: Unremarkable. No mass. Kidneys and ureters: Unremarkable. No hydronephrosis or nephrolithiasis. Stomach and bowel: Circumferential wall thickening of the descending and sigmoid colon, with mild pericolonic fat stranding, consistent with mild colitis. No obstruction. PELVIS: Appendix: No findings to suggest acute appendicitis. Bladder: Decompressed urinary bladder. No stones. Reproductive: Unremarkable as visualized. ABDOMEN and PELVIS: Intraperitoneal space: Unremarkable. No free air. No significant fluid collection. Bones/joints: Degenerative changes of the spine. No acute fracture. No dislocation. Soft tissues: Unremarkable. Vasculature: Atherosclerotic changes of the aorta. No abdominal aortic aneurysm. Lymph nodes: Unremarkable. No enlarged lymph nodes. IMPRESSION: Circumferential wall thickening of the descending and sigmoid colon, with mild pericolonic fat stranding, consistent with mild colitis. Electronically signed by: Cezar Hansen MD 12/12/22 20:14 PM Chest X-Ray 12/12/22 23:57 XR chest 1V portable CLINICAL HISTORY: new central line R IJ placement TECHNIQUE: Single frontal radiograph of the chest was obtained. Comparison: Comparison is made to chest radiograph 12/12/2022 FINDINGS: Right sided venous catheter terminates in the lower SVC. The cardiomediastinal silhouette is normal. The lungs are clear. No evidence of pleural effusion or pneumothorax. IMPRESSION: Satisfactory position of right central line without evidence of pneumothorax. ACT 112: Negative or not required by law. Electronically signed by: Liban Jessica M.D. 12/13/2022 6:58 AM
[2022-12-20] MEDS ORDERED: FUROSEMIDE 40 MG/4 ML VIAL IV ONE (14:00)
[2022-12-20] MEDS: cefTRIAXone SODIUM 2,000 MG in DEXTROSE 5% 50 ML IV SCH (14:30)
[2022-12-20] MEDS: ACETAMINOPHEN 325 MG TAB PO PRN (14:48)
[2022-12-20] MEDS: PRAMIPEXOLE DIHYDROCHLO 0.5 MG TAB PO SCH (21:18)
[2022-12-21] MEDS: PROMETHAZINE HCL 12.5 MG in SODIUM CHLORIDE 0.9% 50 ML IV PRN ×2 (00:59→08:56)
[2022-12-21] MEDS: HEPARIN SOD 5,000 UNIT/0.5 ML VIAL SQ SCH ×3 (06:16→19:51)
[2022-12-21 06:50] LABS: BUN Creatinine Ratio 18.4 (10-20); Creatinine Clr Calc Pharmacy 49.8 ml/min; Est GFR (African American) 43.6 ml/min; Est GFR (Non-African American) 37.6 ml/min; Potassium 3.9 mmol/L (3.5-5.1)
[2022-12-21] MEDS: FUROSEMIDE 40 MG/4 ML VIAL IV SCH ×2 (08:09→14:11)
[2022-12-21] MEDS: FLUCONAZOLE 100 MG TAB PO SCH (08:10)
[2022-12-21] MEDS: ASPIRIN 81 MG ECTAB PO SCH (08:10)
[2022-12-21] MEDS: MONTELUKAST SODIUM 10 MG TABLET PO SCH (08:10)
[2022-12-21] MEDS: FLUTICASONE/VILANTEROL 100/25MCG 14 PUFFS/INHALER INH SCH (08:10)
[2022-12-21] MEDS: PANTOprazole 40 MG TAB PO SCH ×2 (08:10→19:53)
[2022-12-21] MEDS: ATORVASTATIN 40 MG TAB PO SCH (08:10)
[2022-12-21] MEDS: clonazePAM 0.5 MG TAB PO PRN ×3 (08:20→19:50)
[2022-12-21] MEDS: LANTUS PER UNIT CHARGE SC SCH (08:20)
[2022-12-21] MEDS: INSULIN ASPART PER UNIT CHARGE SC SCH ×4 (08:20→20:57)
[2022-12-21 09:19] LABS: Basophils # (auto) 0.02 K/uL (0-0.2); Basophils % (auto) 0.4 %; Eosinophils # (auto) 0.09 K/uL (0-0.50); Eosinophils % (auto) 1.7 %; Hematocrit (blood only) 23.9 % (37.0-47.0); Hemoglobin 7.7 g/dl (12.0-16.0); Immature Granulocytes # (auto) 0.05 K/uL (0.01-0.20); Lymphocytes # (auto) 0.88 K/uL (1.2-3.4); Mean Corpuscular Hemoglobin 30.6 pg (25.0-34.0); Mean Corpuscular Hgb Conc 32.2 g/dL (32.0-36.0); Mean Corpuscular Volume 94.8 fL (80.0-100.0); Mean Platelet Volume 11.3 fL (9.4-12.4); Monocytes # (auto) 0.46 K/uL (0.11-0.59); Monocytes % (auto) 8.9 %; Neutrophils # (auto) 3.69 K/uL (1.40-6.50); Platelet Count 226 K/uL (130-400); RDW Coefficient of Variation 14.5 % (11.5-14.5); RDW Standard Deviation 49.6 fL (36.4-46.3); Red Blood Count 2.52 M/uL (4.20-5.40); White Blood Count 5.19 K/ul (4.8-10.8)
[2022-12-21 09:51] LABS: RBC Morphology Unremarkable
--- NOTE | 2022-12-21 12:15 | Pharmacy Report ---
Pharmacy Glycemic Short Note 2 - Date of Service December 21, 2022 - Glycemic Short BSG Results (Last 24 hours): 12/20/22 12/20/22 12/21/22 16:23 20:29 05:39 Glucose 156 H POC Glucose 187 H 126 H 12/21/22 10:59 Glucose POC Glucose 171 H OUTPATIENT ANTIDIABETIC REGIMEN: * Ozempic 2 mg SC once weekly * Note: diarrhea on admission correlates with increased Ozempic dose * HbA1c 6/4% on 12/13/22 ASSESSMENT: 12/21: * BSGs within goal range the last 48h. Received 25 units of basal and 33 units of bolus insulin yesterday. * Tolerating diet, other stressors stable. * Continue current regimen of Lantus 25 units daily and Novolog ACHS with 20/3 at breakfast and 20/5 all other times of day. 12/19: * Patient received 51 units of insulin yesterday, 25 of which were basal. BSGs were [phone] mg/dL and fasting this morning was 139 mg/dL. * Will continue with current basal dose. * Breakfast NovoLog CR was tightened this morning and lunch BSG subsequently improved at 132 mg/dL. 12/17: * Patient received 57 units of insulin yesterday, 25 of which were basal. BSGs were [phone] mg/dL and today's fasting was 107 mg/dL. * Lantus dose was decreased somewhat this morning as patient was NPO at the time pending GI evaluation. Patient is now ordered a diet, but no carbs consumed for breakfast and lunch. Lunch BSG elevation at 221 mg/dL may be in part a stress response immediately post endoscopy. Will resume previous lantus dose of 25 units for tomorrow morning. * Will assess dinner BSG trend again today to determine if tighter CR is needed at lunchtime. 12/14: * Liane received 43 units of insulin yesterday, 25 units basal + 18 units bolus. BSGs were: [phone] mg/dL. * Remains on Ceftriaxone and Metronidazole today. Vasopressin was titrated off over night. Still requiring a very minor dose of Norepinephrine to maintain MAPs > 65. Midodrine added this morning to help titrate off pressor. NS is running at 125 mL/hr. Diet was advanced to full liquid this morning. * Fasting BSG was 142 mg/dL this AM. Gave a 20 unit dose of Lantus this AM. Will also add a scaled basal dose for this evening given patient is now eating (tolerated 42 g of CHO with breakfast). * Postprandial BSG at lunch was elevated at 249 mg/dL. Will tighten carb ratio. 12/13: * 72 yo F with T2DM admitted to the ICU with sepsis 2nd K. pneumo bacteremia, likely UTI or GI source. Currently NPO and weaning off pressors. * Previous admissions reviewed - most recent one where patient was on steroids for COVID - not likely helpful for this admission while not on steroids. Also reviewed multiple day admission in 2018 while not on steroids. Lantus dose initially exceeded 130 units/day for many days initially but was decreased down to ~50 units/day after AM hypoglycemic episode ~3 days into the a dmission. * Will half Lantus dose as compared to the end of the previous admission due to NPO status and also ICU status (goal BSG 140-180 mg/dL) * OK to utilized more aggressive correction factor - similar to previous and also low-dose Lantus. Weight-based moderate stress CHO ratio for if/when patient is ordered a diet PLAN FOR INPATIENT GLYCEMIC CONTROL: * Basal insulin * Lantus 25 units SQ qAM * Bolus insulin * NovoLog per scale ACHS or Q6hrs while NPO * Goal Range: Low 110 mg/dL - High 140 mg/dL * Correction Factor: 20 mg/dL/unit * Nutritional / Prandial insulin per carb ratio of 1 unit per 5 (3 for breakfast) grams CHO consumed
--- NOTE | 2022-12-21 13:16 | Hospitalist Progress Note ---
Date of Service December 21, 2022 Assessment & Plan (1) Severe sepsis: (2) DAVONTE (acute kidney injury): (3) Hyponatremia: (4) Metabolic acidosis: (5) Diarrhea: Plan 72-year-old female past medical history significant for type 2 diabetes, on long-term insulin, iron metabolism disease, diabetic retinopathy, hyperlipidemia, moderate persistent asthma, obstructive sleep apnea does not tolerate BiPAP nocturnal oxygen 3 to 4 L, hypertension, pulmonary hypertension, PVCs, irritable bowel syndrome, GERD, chronic kidney disease stage III, restless leg syndrome, medical marijuana use, depression, KARI, PTSD, panic disorder, history of COVID, presents with diarrhea going on for 1 week and found to have severe sepsis, DAVONTE, hyperkalemia, hyponatremia and metabolic acidosis. Septic shock on POA Urosepsis on POA On admission, hypotension and elevated lactic acid 2.7. Required vasopressors. Leukocytosis present on admission, normalized. Urine culture growing Klebsiella pneumoniae; pansensitive. Blood culture on admission positive for Klebsiella pneumoniae; pansensitive Repeat blood cultures negative so far. Status post Flagyl for 5 days. Plan to treat bacteremia with IV ceftriaxone for total of 10 days. She will switch over to p.o. ciprofloxacin if discharged before 10 days. 1 more days of antibiotic. Repeat blood culture negative so far. Ambulatory dysfunction . Overload Patient has 3+ pitting edema in bilateral lower extremities. Likely due to volume resuscitation during the hospitalization due to septic shock Reports difficulty putting on shoes and ambulation due to it. Started on diuretics 40 mg twice daily. PT OT evaluation has completed; recommended rehab. However, patient has declined to go to rehab and plans to go home with home PT OT. DAVONTE Hyponatremia Hyperkalemia Metabolic acidosis DAVONTE likely due to septic shock Resulting in hyponatremia, hyperkalemia and metabolic acidosis, improving Urine output reassuring Presented to creatinine of 13.3, downtrending. Baseline creatinine 1.5 as per nephrology. Continue strict input and output monitoring. Close monitoring of serum sodium and potassium level Acute blood loss anemia Likely secondary to upper GI bleed Esophageal candidiasis Diffuse gastritis Hemoglobin down trended from 10.7 on admission to 7 on 12/16/2022 Transfuse 1 unit of packed RBC Fecal occult positive Underwent endoscopy on 12/17esophageal plaques found suspicious for candidiasis. Diffuse gastritis. Started on Diflucan as per recommendation. Currently on Diflucan 100 mg; plan to continue for 2 weeks. Plan for colonoscopy as outpatient. Continue Protonix twice daily. Elevated troponin likely due to demand ischemia from septic shock High-sensitivity troponin elevated Mostly from DAVONTE and demand ischemia from sepsis Echocardiogram showed EF of 55 to 60%; no significant valvular abnormality or wall motion abnormalities. Diarrhea Decreased appetite C. difficile colonization CT abdomen and pelvis reviewed; consistent with colitis. Possible side effect of Ozempic increased dose. C. difficile gene positive, toxin negative; likely due to colonization. Monitor for now. MRSA nares positive: Bactroban 2% on anterior nares for 5 days Type II diabetes Patient states this takes 8o units of long-acting insulin the morning and and as needed short-acting She is also on Ozempic Currently we will place on insulin sliding scale Pharmacy on board. Obstructive sleep apnea Does not tolerate BiPAP On oxygen 3 to 4 L nightly Restless leg syndrome On pramipexole Hypertension Holding lisinopril metoprolol and Lasix as patient currently having AK. Anxiety Resume Klonopin. Insomnia On clonidine nightly. Patient not taking it. Will discontinue at discharge. Hyperlipidemia Statin resumed. CK down trended. Irritable bowel syndrome Hold home medications for now History of asthma Continue home inhalers and nebs as needed GERD on Protonix DVT prophylaxis Heparin . Disposition PT OT evaluation done. Recommend rehab. Initially, patient wants to go home. Discussed in detail with the patient that she will benefit from going to rehab given the prolonged hospitalization with multiple medical issues. Patient continues to be hospitalized due to need for IV diuretics. DNR/DNI Time spent evaluating patient, direct bedside care, chart review, placing orders, interpretation of diagnostic studies, discussion with consultants, patient, and family members, as well as other required patient management activities is 60 minutes. Please note the above document was generated using voice recognition software. It may contain grammatical, syntax or spelling errors. Any formal questions or concerns about the content, text or information contained within the body of this dictation should be directly addressed to the provider for clarification Admission and Anticipated Discharge Date Admission Date: December 12, 2022 Subjective Patient seen and examined at bedside. Reports that her leg swelling is slightly better compared to yesterday. Urine output of 4 L overnight. Review of Systems Review of Systems: All systems reviewed & are unremarkable except as noted in Subjective Physical Exam Physical Exam: Constitutional: Awake, alert orient x3. Not in any distress Respiratory: Bilateral vesicular breath sound Cardiovascular: RRR, no murmur, no edema Vessels: no JVD or carotid bruit Chest: normal inspection of chest Abdomen: normal bowel sounds, soft, nontender, no hepatosplenomegaly. Musculoskeletal: no cyanosis or clubbing, extremities motor strength 5/5. 3+ pitting edema present. Skin: no rashes, warm and dry normal turgor Neurologic: PERRL, EOMI, accommodation nl, no face palsy, no dysarthria CN's II- XI intact bilaterally and moves all extremities Psychiatric: A+Ox3, euthymic affect Results & Data Results & Data Vital Signs (Past 12 Hours) Vital Signs Temp Pulse Pulse Resp BP Pulse Ox O2 Del Method 12/21/22 11:12 36.7 C 77 19 114/65 95 Room Air 12/21/22 07:39 36.6 C 79 20 131/53 L 97 Room Air 12/21/22 07:27 74 12/21/22 03:11 36.9 C 80 18 129/67 98 Room Air Laboratory Results Laboratory Results WBC 5.19 K/ul (4.8-10.8) 12/21/22 05:39 RBC 2.52 M/uL (4.20-5.40) L 12/21/22 05:39 Hgb 7.7 g/dl (12.0-16.0) L 12/21/22 05:39 Hct 23.9 % (37.0-47.0) L 12/21/22 05:39 MCV 94.8 fL (80.0-100.0) 12/21/22 05:39 MCH 30.6 pg (25.0-34.0) 12/21/22 05:39 MCHC 32.2 g/dL (32.0-36.0) 12/21/22 05:39 RDW Std Deviation 49.6 fL (36.4-46.3) H 12/21/22 05:39 RDW Coeff of Pérez 14.5 % (11.5-14.5) 12/21/22 05:39 Plt Count 226 K/uL (130-400) 12/21/22 05:39 MPV 11.3 fL (9.4-12.4) 12/21/22 05:39 Immature Gran % (Auto) 1.0 % 12/21/22 05:39 Neut % (Auto) 71.0 % 12/21/22 05:39 Lymph % (Auto) 17.0 % 12/21/22 05:39 Travis % (Auto) 8.9 % 12/21/22 05:39 Eos % (Auto) 1.7 % 12/21/22 05:39 Baso % (Auto) 0.4 % 12/21/22 05:39 Neut # (Auto) 3.69 K/uL (1.40-6.50) 12/21/22 05:39 Lymph # (Auto) 0.88 K/uL (1.2-3.4) L 12/21/22 05:39 Travis # (Auto) 0.46 K/uL (0.11-0.59) 12/21/22 05:39 Eos # (Auto) 0.09 K/uL (0-0.50) 12/21/22 05:39 Baso # (Auto) 0.02 K/uL (0-0.2) 12/21/22 05:39 Immature Gran # (Auto) 0.05 K/uL (0.01-0.20) 12/21/22 05:39 Dohle Bodies 1+ 12/13/22 05:25 RBC Morphology Unremarkable 12/21/22 05:39 Polychromasia 1+ 12/12/22 19:27 Echinocytes 2+ 12/13/22 05:25 PT 11.9 Seconds (9.0-12.0) 12/12/22 19:27 INR 1.1 (0.9-1.1) 12/12/22 19:27 APTT 24.2 Seconds (21.0-31.0) 12/12/22 19:27 PTT Ratio 0.9 12/12/22 19:27 VBG pH 7.47 (7.36-7.41) H 12/13/22 23:21 VBG pCO2 29 mmHg (38-50) L 12/13/22 23:21 VBG pO2 81 mmHg 12/13/22 23:21 VBG HCO3 21 mmol/L 12/13/22 23:21 VBG O2 Saturation 98.3 % 12/13/22 23:21 VBG Base Excess -1.5 mEq/L 12/13/22 23:21 Sodium 138 mmol/L (136-145) 12/21/22 05:39 Potassium 3.9 mmol/L (3.5-5.1) 12/21/22 05:39 Chloride 106 mmol/L (98-107) 12/21/22 05:39 Carbon Dioxide 26 mmol/L (21-32) 12/21/22 05:39 Anion Gap 6 (3-11) 12/21/22 05:39 BUN 26 mg/dl (6-23) H 12/21/22 05:39 Creatinine 1.41 mg/dl (0.6-1.2) H 12/21/22 05:39 Est Cr Clr Drug Dosing 49.8 ml/min 12/21/22 05:39 Est GFR ( Amer) 43.6 ml/min 12/21/22 05:39 Est GFR (Non-Af Amer) 37.6 ml/min 12/21/22 05:39 BUN/Creatinine Ratio 18.4 (10-20) 12/21/22 05:39 Glucose 156 mg/dl (70-99(Fasting)) H 12/21/22 05:39 POC Glucose 171 mg/dl (70-99) H 12/21/22 10:59 POC Glucose (other) 94 mg/dl (70-99) 12/14/22 16:26 Estimat Average Glucose 137 mg/dl 12/13/22 05:25 Hemoglobin A1c 6.4 % (4.5-5.6) H 12/13/22 05:25 Lactate 1.3 mmol/L (0.4-2.0) 12/13/22 00:27 Calcium 8.0 mg/dl (8.6-10.3) L 12/21/22 05:39 Phosphorus 3.4 mg/dl (2.5-4.9) 12/18/22 06:39 Magnesium 1.2 mg/dl (1.7-2.4) L 12/18/22 06:39 Total Bilirubin 0.4 mg/dl (0.2-1.0) 12/20/22 06:32 Direct Bilirubin 0.3 mg/dl (0-0.2) H 12/15/22 04:17 AST 19 U/L (13-39) 12/20/22 06:32 ALT 17 U/L (7-52) 12/20/22 06:32 Alkaline Phosphatase 117 U/L (34-104) H 12/20/22 06:32 Total Creatine Kinase 42 U/L (26-192) 12/19/22 06:01 Troponin I High Sens 146.2 pg/ml (0-14) H* 12/13/22 19:17 Troponin I High Sens Cancelled 12/13/22 19:17 Total Protein 6.6 gm/dl (6.0-8.3) 12/20/22 06:32 Albumin 2.7 gm/dl (3.4-5.0) L 12/20/22 06:32 Globulin 3.9 gm/dl (2.5-4.0) 12/20/22 06:32 Albumin/Globulin Ratio 0.7 (0.9-2) L 12/20/22 06:32 Lipase 187 U/L (11-82) H 12/12/22 19:27 Procalcitonin 14.61 ng/ml (0-0.5) H 12/12/22 19:27 Random Cortisol 31.95 mcg/dl 12/13/22 00:23 Urine Color Dark Yellow 12/12/22 20:33 Urine Appearance Turbid (Clear) A 12/12/22 20:33 Urine pH 7.0 (4.5-7.5) 12/12/22 20:33 Ur Specific [place] 1.016 (1.000-1.030) 12/12/22 20:33 Urine Protein 3+ (Negative) H 12/12/22 20:33 Urine Glucose (UA) Negative (Negative) 12/12/22 20:33 Urine Ketones Negative (Negative) 12/12/22 20:33 Urine Blood 3+ (Negative) H 12/12/22 20:33 Urine Nitrite Negative (Negative) 12/12/22 20:33 Urine Bilirubin Negative (Negative) 12/12/22 20:33 Urine Urobilinogen Negative (Negative) 12/12/22 20:33 Ur Leukocyte Esterase 3+ (Negative) H 12/12/22 20:33 Urine WBC (Auto) >30 /hpf (0-5) H 12/12/22 20:33 Urine RBC (Auto) 10-30 /hpf (0-4) H 12/12/22 20:33 U Hyaline Cast (Auto) 0 /lpf (0-5) 12/12/22 20:33 U Epithel Cells (Auto) >30 /lpf (0-5) H 12/12/22 20:33 Urine Bacteria (Auto) 4+ (Negative) H 12/12/22 20:33 Ur Renal Epithelial Cell 10-20 /lpf (0-5) H 12/12/22 20:33 Urine Yeast Not Reportable 12/12/22 20:33 Nasal Screen MRSA (PCR) Positive (Negative) A 12/12/22 23:00 Stool Occult Bld Scrn Positive (Negative) A 12/16/22 10:45 Stl C. cayetanensis PCR Not Detected (NotDetected) 12/15/22 09:27 Stool Rotavirus A PCR Not Detected (NotDetected) 12/15/22 09:27 Stl Adenov F 40/41 PCR Not Detected (NotDetected) 12/15/22 09:27 Stool Astrovirus (PCR) Not Detected (NotDetected) 12/15/22 09:27 Stool Campylobacter PCR Not Detected (NotDetected) 12/15/22 09:27 Stl C. diff Tox B Gene Positive Cdiff Gene (Neg) H 12/15/22 09:27 Stl C.difficile Tox A&B Negative Cdiff Toxin (Negative) 12/15/22 09:27 Stool Cryptosporidium PCR Not Detected (NotDetected) 12/15/22 09:27 Stl E.coli Shiga Tox PCR Not Detected (NotDetected) 12/15/22 09:27 Stl Enterotoxigenic E PCR Not Detected (NotDetected) 12/15/22 09:27 Stool EPEC (PCR) Not Detected (NotDetected) 12/15/22 09:27 Stool EAEC (PCR) Not Detected (NotDetected) 12/15/22 09:27 Stl E. histolytica PCR Not Detected (NotDetected) 12/15/22 09:27 Stool Giardia Lamblia PCR Not Detected (NotDetected) 12/15/22 09:27 Stool Salmonella PCR Not Detected (NotDetected) 12/15/22 09:27 Stool Sapovirus (PCR) Not Detected (NotDetected) 12/15/22 09:27 Stl P. shigelloides PCR Not Detected (NotDetected) 12/15/22 09:27 Stl Shigella/EIEC PCR Not Detected (NotDetected) 12/15/22 09:27 St Y.enterocolitica PCR Not Detected (NotDetected) 12/15/22 09:27 Stool Vibrio (PCR) Not Detected (NotDetected) 12/15/22 09:27 Stl Vibrio cholerae PCR Not Detected (NotDetected) 12/15/22 09:27 Stl Norovirus GI/GII PCR Not Detected (NotDetected) 12/15/22 09:27 Adenovirus (PCR) Not Detected (NotDetected) 12/12/22 19:27 B. pertussis DNA (PCR) Not Detected (NotDetected) 12/12/22 19:27 B.parapertussis DNA PCR Not Detected (NotDetected) 12/12/22 19:27 C. pneumoniae DNA (PCR) Not Detected (NotDetected) 12/12/22 19:27 Coronavirus OC43 (PCR) Not Detected (NotDetected) 12/12/22 19:27 Coronavirus HKU1 (PCR) Not Detected (NotDetected) 12/12/22 19:27 Coronavirus 229E (PCR) Not Detected (NotDetected) 12/12/22 19:27 SARS-CoV-2 (PCR) Not Detected (NotDetected) 12/12/22 19:27 Coronavirus NL63 (PCR) Not Detected (NotDetected) 12/12/22 19:27 Enterobacterales (PCR) DETECTED (NotDetected) A 12/12/22 19:27 Human Metapneumovir PCR Not Detected (NotDetected) 12/12/22 19:27 Influenza Type A (PCR) Not Detected (NotDetected) 12/12/22 19:27 Influenza Type B (PCR) Not Detected (NotDetected) 12/12/22 19:27 K. pneumoniae group (PCR) DETECTED (NotDetected) A 12/12/22 19:27 M. pneumoniae (PCR) Not Detected (NotDetected) 12/12/22 19:27 Parainfluenza 1 (PCR) Not Detected (NotDetected) 12/12/22 19:27 Parainfluenza 2 (PCR) Not Detected (NotDetected) 12/12/22 19:27 Parainfluenza 3 (PCR) Not Detected (NotDetected) 12/12/22 19:27 Parainfluenza 4 (PCR) Not Detected (NotDetected) 12/12/22 19:27 RSV (PCR) Not Detected (NotDetected) 12/12/22 19:27 Entero/Rhino (PCR) Not Detected (NotDetected) 12/12/22 19:27 mcr-1 Colistin Res Gene PCR Not Detected (NotDetected) 12/12/22 19:27 blaIMP Car res Gene PCR Not Detected (NotDetected) 12/12/22 19:27 KPC-Carbap Res Gene PCR Not Detected (NotDetected) 12/12/22 19:27 blaNDM Car Res Gene PCR Not Detected (NotDetected) 12/12/22 19:27 OXA-48 Carbapenem Resis Gene (PCR) Not Detected (NotDetected) 12/12/22 19:27 blaVIM Car Res Gene PCR Not Detected (NotDetected) 12/12/22 19:27 CTX-M Gene Resistance (PCR) Not Detected (NotDetected) 12/12/22 19:27 Bld Cult ID Panel PCR See PCR Comment (NotDetected) 12/12/22 19:27 Blood Type B Positive 12/16/22 13:02 Antibody Screen NEGATIVE 12/16/22 13:02 Crossmatch See Detail 12/16/22 13:02 Impressions Abdomen/Pelvis CT 12/12/22 19:21 Exam(s): CT ABDOMEN + PELVIS Without Contrast EXAM: CT Abdomen and Pelvis Without Intravenous Contrast CLINICAL HISTORY: Reason for exam: abd apin. TECHNIQUE: Axial computed tomography images of the abdomen and pelvis without intravenous contrast. CTDI is 28.14 mGy and DLP is 1415.4 mGy-cm. Automated exposure control was utilized for the study. A dose lowering technique was utilized adhering to the principles of ALARA. COMPARISON: No relevant prior studies available. FINDINGS: Lung bases: Unremarkable. No mass. No consolidation. ABDOMEN: Liver: Unremarkable. Gallbladder and bile ducts: Cholecystectomy clips. No ductal dilation. Pancreas: Unremarkable. No ductal dilation. Spleen: Unremarkable. No splenomegaly. Adrenals: Unremarkable. No mass. Kidneys and ureters: Unremarkable. No hydronephrosis or nephrolithiasis. Stomach and bowel: Circumferential wall thickening of the descending and sigmoid colon, with mild pericolonic fat stranding, consistent with mild colitis. No obstruction. PELVIS: Appendix: No findings to suggest acute appendicitis. Bladder: Decompressed urinary bladder. No stones. Reproductive: Unremarkable as visualized. ABDOMEN and PELVIS: Intraperitoneal space: Unremarkable. No free air. No significant fluid collection. Bones/joints: Degenerative changes of the spine. No acute fracture. No dislocation. Soft tissues: Unremarkable. Vasculature: Atherosclerotic changes of the aorta. No abdominal aortic aneurysm. Lymph nodes: Unremarkable. No enlarged lymph nodes. IMPRESSION: Circumferential wall thickening of the descending and sigmoid colon, with mild pericolonic fat stranding, consistent with mild colitis. Electronically signed by: Cezar Hansen MD 12/12/22 20:14 PM Chest X-Ray 12/12/22 23:57 XR chest 1V portable CLINICAL HISTORY: new central line R IJ placement TECHNIQUE: Single frontal radiograph of the chest was obtained. Comparison: Comparison is made to chest radiograph 12/12/2022 FINDINGS: Right sided venous catheter terminates in the lower SVC. The cardiomediastinal silhouette is normal. The lungs are clear. No evidence of pleural effusion or pneumothorax. IMPRESSION: Satisfactory position of right central line without evidence of pneumothorax. ACT 112: Negative or not required by law. Electronically signed by: Liban Jessica M.D. 12/13/2022 6:58 AM
[2022-12-21] MEDS: cefTRIAXone SODIUM 2,000 MG in DEXTROSE 5% 50 ML IV SCH (14:10)
[2022-12-21] MEDS: ACETAMINOPHEN 325 MG TAB PO PRN (19:50)
[2022-12-21] MEDS: PRAMIPEXOLE DIHYDROCHLO 0.5 MG TAB PO SCH (19:53)
[2022-12-22] MEDS: HEPARIN SOD 5,000 UNIT/0.5 ML VIAL SQ SCH ×2 (05:35→13:20)
[2022-12-22 06:22] LABS: Basophils # (auto) 0.02 K/uL (0-0.2); Basophils % (auto) 0.3 %; Eosinophils % (auto) 1.5 %; Hemoglobin 8.2 g/dl (12.0-16.0); Immature Granulocytes # (auto) 0.05 K/uL (0.01-0.20); Immature Granulocytes % (auto) 0.7 %; Lymphocytes # (auto) 1.13 K/uL (1.2-3.4); Lymphocytes % (auto) 16.4 %; Mean Corpuscular Hemoglobin 30.3 pg (25.0-34.0); Mean Corpuscular Hgb Conc 32.8 g/dL (32.0-36.0); Mean Corpuscular Volume 92.3 fL (80.0-100.0); Mean Platelet Volume 11.2 fL (9.4-12.4); Monocytes # (auto) 0.63 K/uL (0.11-0.59); Monocytes % (auto) 9.2 %; Neutrophils # (auto) 4.94 K/uL (1.40-6.50); Neutrophils % (auto) 71.9 %; Platelet Count 290 K/uL (130-400); RDW Coefficient of Variation 14.2 % (11.5-14.5); RDW Standard Deviation 48.1 fL (36.4-46.3); Red Blood Count 2.71 M/uL (4.20-5.40); White Blood Count 6.87 K/ul (4.8-10.8)
[2022-12-22 06:35] LABS: BUN Creatinine Ratio 17.8 (10-20); Calcium 8.2 mg/dl (8.6-10.3); Creatinine Clr Calc Pharmacy 54.5 ml/min; Est GFR (African American) 48.6 ml/min; Est GFR (Non-African American) 41.9 ml/min
[2022-12-22] MEDS: FUROSEMIDE 40 MG/4 ML VIAL IV SCH ×2 (07:55→13:20)
[2022-12-22] MEDS: FLUCONAZOLE 100 MG TAB PO SCH (07:59)
[2022-12-22] MEDS: ASPIRIN 81 MG ECTAB PO SCH (07:59)
[2022-12-22] MEDS: MONTELUKAST SODIUM 10 MG TABLET PO SCH (07:59)
[2022-12-22] MEDS: ATORVASTATIN 40 MG TAB PO SCH (07:59)
[2022-12-22] MEDS: PANTOprazole 40 MG TAB PO SCH (08:00)
[2022-12-22] MEDS: FLUTICASONE/VILANTEROL 100/25MCG 14 PUFFS/INHALER INH SCH (08:00)
[2022-12-22] MEDS: INSULIN ASPART PER UNIT CHARGE SC SCH ×2 (08:12→12:13)
[2022-12-22] MEDS: clonazePAM 0.5 MG TAB PO PRN (08:14)
[2022-12-22] MEDS: LANTUS PER UNIT CHARGE SC SCH (08:14)
[2022-12-22] MEDS: ACETAMINOPHEN 325 MG TAB PO PRN (12:56)
--- NOTE | 2022-12-22 13:00 | Hospitalist Progress Note ---
Date of Service December 22, 2022 Assessment & Plan (1) Severe sepsis: (2) DAVONTE (acute kidney injury): (3) Hyponatremia: (4) Metabolic acidosis: (5) Diarrhea: Plan Patient is a 72 yr female with H/O Type 2 diabetes, on long-term insulin, iron metabolism disease, diabetic retinopathy, hyperlipidemia, moderate persistent asthma, obstructive sleep apnea does not tolerate BiPAP nocturnal oxygen 3 to 4 L, hypertension, pulmonary hypertension, PVCs, irritable bowel syndrome, GERD, chronic kidney disease stage III, restless leg syndrome, medical marijuana use, depression, KARI, PTSD, panic disorder, history of COVID, presents with diarrhea going on for 1 week and found to have severe sepsis, DAVONTE, hyperkalemia, hyponatremia and metabolic acidosis. Septic shock on POA Urosepsis on POA Off pressors. Urine culture and Blood culture grew Klebsiella pneumoniae; pansensitive. Repeat blood cultures negative so far. Status post Flagyl for 5 days Completed IV ceftriaxone coarse. Ambulatory dysfunction Volume Overload Patient has 3+ pitting edema in bilateral lower extremities. Likely due to volume resuscitation during the hospitalization due to septic shock Started on diuretics 40 mg twice daily. PT OT evaluation has completed; recommended rehab. Patient declined to go to rehab and plans to go home with home PT OT. Continue home diuretics on discharge DAVONTE Hyponatremia Hyperkalemia Metabolic acidosis DVAONTE likely due to septic shock Cr level improved to 1.2 Appreciate Nephrology Input Avoid nephrotoxic agents as able Acute blood loss anemia Likely secondary to upper GI bleed Esophageal candidiasis Diffuse gastritis Hemoglobin down trended from 10.7 on admission to 7 on 12/16/2022 S/P 1 unit of packed RBC Fecal occult positive --Underwent endoscopy on 12/17esophageal plaques found suspicious for candidiasis. Diffuse gastritis. --Started on Diflucan as per recommendation. Currently on Diflucan 100 mg; plan to continue for 2 weeks. Plan for colonoscopy as outpatient. Continue Protonix twice daily Continue fluconazole to complete the course Elevated troponin likely due to demand ischemia from septic shock, DAVONTE Echocardiogram showed EF of 55 to 60%; no significant valvular abnormality or wall motion abnormalities. Diarrhea Decreased appetite C. difficile colonization --CT abdomen and pelvis reviewed; consistent with colitis. Possible side effect of Ozempic increased dose. C. difficile gene positive, toxin negative; likely due to colonization. Improved MRSA nares positive: Bactroban 2% on anterior nares for 5 days Type II diabetes Patient states this takes 8o units of long-acting insulin the morning and and as needed short-acting HbA1c 6.4 She is also on Ozempic Currently we will place on insulin sliding scale Pharmacy on board. Obstructive sleep apnea Does not tolerate BiPAP On oxygen 3 to 4 L nightly Restless leg syndrome On pramipexole Hypertension Hold lisinopril, clonidine Advised to follow-up with PCP for further management Anxiety Continue Klonopin. Insomnia Monitor Irritable bowel syndrome Continue home medication History of asthma Continue home inhalers and nebs as needed GERD on Protonix DVT prophylaxis Heparin . Code Status DNR/DNI Disposition Home with HH Refused Rehab Admission and Anticipated Discharge Date Admission Date: December 12, 2022 Subjective Patient is seen and examined at bedside States feeling tired but otherwise feels well Denies any chest pain, dyspnea, dizziness, nausea, vomiting, abdominal pain No other complaints Eager to get discharged Review of Systems Review of Systems: All systems reviewed & are unremarkable except as noted in Subjective Physical Exam Physical Exam: Physical Exam: Vitals signs as noted above General Appearance:Obese, no apparent distress Head: normocephalic, Atraumatic Eyes: normal inspection, EOMI Neck: supple, Trachea midline Respiratory/Chest: Normal breath sounds, CTA, No accessory muscle use Cardiovascular: S1, S2, No murmur Abdomen/GI:Soft, Non tender, Bowel sounds present Extremities/Musculoskeletal:normal inspection, 2+ Pedal edema Neurologic/Psych:AAOX3, grossly no focal neurological deficits Skin: normal color, warm Results & Data Results & Data Vital Signs (Past 12 Hours) Vital Signs Temp Pulse Pulse Resp BP Pulse Ox O2 Del Method 12/22/22 11:45 37.1 C 76 19 121/72 97 Room Air 12/22/22 07:14 73 12/22/22 06:58 37.1 C 75 18 139/77 97 Room Air 12/22/22 03:53 36.9 C 72 15 127/57 L 97 Room Air Laboratory Results Short CBC 12/22/22 Range/Units 05:39 WBC 6.87 (4.8-10.8) K/ul Hgb 8.2 L (12.0-16.0) g/dl Hct 25.0 L (37.0-47.0) % Plt Count 290 (130-400) K/uL BMP 12/22/22 05:39 Sodium 136 Potassium 4.0 Chloride 102 Carbon Dioxide 26 BUN 23 Creatinine 1.29 H Glucose 120 H Calcium 8.2 L
[2022-12-22] MEDS: cefTRIAXone SODIUM 2,000 MG in DEXTROSE 5% 50 ML IV SCH (13:19)
--- NOTE | 2022-12-22 17:34 | Discharge Summary ---
Date of Service December 22, 2022 Admission HPI Per Admitting Provider This is 72-year-old female with past medical history significant for type 2 diabetes, on long-term insulin, iron metabolism disease, diabetic retinopathy, hyperlipidemia, moderate persistent asthma, obstructive sleep apnea does not tolerate BiPAP nocturnal oxygen 3 to 4 L, hypertension, pulmonary hypertension, PVCs, irritable bowel syndrome, GERD, chronic kidney disease stage III, restless leg syndrome, medical marijuana use, depression, KARI, PTSD, panic disorder, history of COVID, presents with diarrhea going on for 1 week but got worse last 3 to 4 days and weakness and not feeling well. Patient states that she was Ozempic 1 mg dose and last over 96 pounds in last 1 year and recently it was increased to 2 mg dose about 10 days ago since then she thinks started having diarrhea. Also has some chest on and off discomfort. Has some neck pain. Complains of cough with phlegm going on for last few days. Denies any fevers. Has abdominal pain in the middle of the abdomen. Has some nausea. Patient somewhat shaky but she thinks she is anxious. Denies any headache. On and off blurred visions. No earache. Has some runny nose and sore throat. Has some blood in the stools but she thinks it is from irritation from diarrhea. Says she has not been making much urine lately. Patient was hypotensive in the ER. Even after 3 L of fluids she still was hypotensive so was started on Levophed. Patient states she takes marijuana sometimes for her pain Admission Exam Per Admitting Provider General- adult Head- atraumatic Eyes- PERRL ENT- oropharynx dry Neck- supple, no JVD, Lungs- clear to auscultation and percussion Heart- regular rhythm; no murmur, no gallop, no rub appreciated Abdomen- normal bowel sounds, soft, mild diffuse tenderness , no masses or hepatosplenomegaly Extremities- trace pretibial edema present, No erythema seen Neuro- alert, oriented x 3; PERRL, EOMI; no facial palsy; no dysarthria; non foc al. Skin- warm & dry Principal Diagnosis Septic shock Urinary tract infection Volume overload Acute kidney injury Hyponatremia Hyperkalemia Metabolic acidosis Esophageal candidiasis Diffuse Gastritis Acute blood loss anemia Discharge Data Allergies Allergy/AdvReac Type Severity Reaction Status Date / Time bee venom protein (honey bee) Allergy Severe ANAPHYLAXIS Verified 09/14/21 17:11 iodine Allergy Severe ANAPHYLAXIS Verified 09/14/21 17:11 -SHELLFISH colestipol Allergy Unknown RASH Verified 09/14/21 17:11 doxycycline Allergy Unknown HIVES Verified 09/14/21 17:11 glimepiride Allergy Unknown RASH Verified 09/14/21 17:11 glyburide Allergy Unknown RASH Verified 09/14/21 17:11 metformin Allergy Unknown RASH Verified 09/14/21 17:11 ondansetron [From Zofran] Allergy Unknown Unknown Verified 09/14/21 17:35 pioglitazone Allergy Unknown RASH Verified 09/14/21 17:11 rosuvastatin Allergy Unknown ITCHING Verified 09/14/21 17:11 RASH shellfish derived Allergy Unknown SWELLING Verified 09/14/21 17:11 OF FACE AND MOUTH tramadol Allergy Unknown EARS RING, Verified 09/14/21 17:11 FUZZY VISION amitriptyline [From Elavil] AdvReac Unknown WT GAIN Verified 09/14/21 17:11 diphenhydramine AdvReac Unknown HEAD GOES Verified 09/14/21 17:11 CRAZY-RINGING EARS,STRANGE hydroxyzine AdvReac Unknown MENTAL Verified 09/14/21 17:11 CONFUSION pseudoephedrine AdvReac Unknown JITTERINESS Verified 09/14/21 17:11 sulfamethoxazole AdvReac Unknown Unknown Verified 09/14/21 17:35 [From Bactrim] trimethoprim [From Bactrim] AdvReac Unknown Unknown Verified 09/14/21 17:35 Consultations 12/12/22 20:44 ED Decision to Admit Stat 12/12/22 22:32 Consult Monitoring And Evaluation Advisor Routine 12/13/22 08:00 Consult Nephrology Routine 12/16/22 12:38 Consult Gastroenterology Routine Procedures Performed Operation Date: 12/17/22 17:15 Actual Procedures p EGD Biopsy Cytology - Jennifer Mora DO Ordered Studies 12/12/22 19:21 CT abd pelvis wo con Stat 12/12/22 23:32 US point of care ultrasound Stat Laboratory Results WBC 6.87 K/ul (4.8-10.8) 12/22/22 05:39 RBC 2.71 M/uL (4.20-5.40) L 12/22/22 05:39 Hgb 8.2 g/dl (12.0-16.0) L 12/22/22 05:39 Hct 25.0 % (37.0-47.0) L 12/22/22 05:39 MCV 92.3 fL (80.0-100.0) 12/22/22 05:39 MCH 30.3 pg (25.0-34.0) 12/22/22 05:39 MCHC 32.8 g/dL (32.0-36.0) 12/22/22 05:39 RDW Std Deviation 48.1 fL (36.4-46.3) H 12/22/22 05:39 RDW Coeff of Pérez 14.2 % (11.5-14.5) 12/22/22 05:39 Plt Count 290 K/uL (130-400) 12/22/22 05:39 MPV 11.2 fL (9.4-12.4) 12/22/22 05:39 Immature Gran % (Auto) 0.7 % 12/22/22 05:39 Neut % (Auto) 71.9 % 12/22/22 05:39 Lymph % (Auto) 16.4 % 12/22/22 05:39 Cameron % (Auto) 9.2 % 12/22/22 05:39 Eos % (Auto) 1.5 % 12/22/22 05:39 Baso % (Auto) 0.3 % 12/22/22 05:39 Neut # (Auto) 4.94 K/uL (1.40-6.50) 12/22/22 05:39 Lymph # (Auto) 1.13 K/uL (1.2-3.4) L 12/22/22 05:39 Cameron # (Auto) 0.63 K/uL (0.11-0.59) H 12/22/22 05:39 Eos # (Auto) 0.10 K/uL (0-0.50) 12/22/22 05:39 Baso # (Auto) 0.02 K/uL (0-0.2) 12/22/22 05:39 Immature Gran # (Auto) 0.05 K/uL (0.01-0.20) 12/22/22 05:39 Dohle Bodies 1+ 12/13/22 05:25 RBC Morphology Unremarkable 12/21/22 05:39 Polychromasia 1+ 12/12/22 19: Echinocytes 2+ 12/13/22 05:25 PT 11.9 Seconds (9.0-12.0) 12/12/22 19: INR 1.1 (0.9-1.1) 12/12/22 19: APTT 24.2 Seconds (21.0-31.0) 12/12/22 19: PTT Ratio 0.9 12/12/22 19: VBG pH 7.47 (7.36-7.41) H 12/13/22 23:21 VBG pCO2 29 mmHg (38-50) L 12/13/22 23:21 VBG pO2 81 mmHg 12/13/22 23:21 VBG HCO3 21 mmol/L 12/13/22 23:21 VBG O2 Saturation 98.3 % 12/13/22 23:21 VBG Base Excess -1.5 mEq/L 12/13/22 23:21 Sodium 136 mmol/L (136-145) 12/22/22 05:39 Potassium 4.0 mmol/L (3.5-5.1) 12/22/22 05:39 Chloride 102 mmol/L (98-107) 12/22/22 05:39 Carbon Dioxide 26 mmol/L (21-32) 12/22/22 05:39 Anion Gap 8 (3-11) 12/22/22 05:39 BUN 23 mg/dl (6-23) 12/22/22 05:39 Creatinine 1.29 mg/dl (0.6-1.2) H 12/22/22 05:39 Est Cr Clr Drug Dosing 54.5 ml/min 12/22/22 05:39 Est GFR ( Amer) 48.6 ml/min 12/22/22 05:39 Est GFR (Non-Af Amer) 41.9 ml/min 12/22/22 05:39 BUN/Creatinine Ratio 17.8 (10-20) 12/22/22 05:39 Glucose 120 mg/dl (70-99(Fasting)) H 12/22/22 05:39 POC Glucose 178 mg/dl (70-99) H 12/22/22 10:54 POC Glucose (other) 94 mg/dl (70-99) 12/14/22 16:26 Estimat Average Glucose 137 mg/dl 12/13/22 05:25 Hemoglobin A1c 6.4 % (4.5-5.6) H 12/13/22 05:25 Lactate 1.3 mmol/L (0.4-2.0) 12/13/22 00:27 Calcium 8.2 mg/dl (8.6-10.3) L 12/22/22 05:39 Phosphorus 3.4 mg/dl (2.5-4.9) 12/18/22 06:39 Magnesium 1.2 mg/dl (1.7-2.4) L 12/18/22 06:39 Total Bilirubin 0.4 mg/dl (0.2-1.0) 12/20/22 06:32 Direct Bilirubin 0.3 mg/dl (0-0.2) H 12/15/22 04:17 AST 19 U/L (13-39) 12/20/22 06:32 ALT 17 U/L (7-52) 12/20/22 06:32 Alkaline Phosphatase 117 U/L (34-104) H 12/20/22 06:32 Total Creatine Kinase 42 U/L (26-192) 12/19/22 06:01 Troponin I High Sens 146.2 pg/ml (0-14) H* 12/13/22 19:17 Troponin I High Sens Cancelled 12/13/22 19:17 Total Protein 6.6 gm/dl (6.0-8.3) 12/20/22 06:32 Albumin 2.7 gm/dl (3.4-5.0) L 12/20/22 06:32 Globulin 3.9 gm/dl (2.5-4.0) 12/20/22 06:32 Albumin/Globulin Ratio 0.7 (0.9-2) L 12/20/22 06:32 Lipase 187 U/L (11-82) H 12/12/22 19:27 Procalcitonin 14.61 ng/ml (0-0.5) H 12/12/22 19:27 Random Cortisol 31.95 mcg/dl 12/13/22 00:23 Urine Color Dark Yellow 12/12/22 20:33 Urine Appearance Turbid (Clear) A 12/12/22 20:33 Urine pH 7.0 (4.5-7.5) 12/12/22 20:33 Ur Specific [place] 1.016 (1.000-1.030) 12/12/22 20:33 Urine Protein 3+ (Negative) H 12/12/22 20:33 Urine Glucose (UA) Negative (Negative) 12/12/22 20:33 Urine Ketones Negative (Negative) 12/12/22 20:33 Urine Blood 3+ (Negative) H 12/12/22 20:33 Urine Nitrite Negative (Negative) 12/12/22 20:33 Urine Bilirubin Negative (Negative) 12/12/22 20:33 Urine Urobilinogen Negative (Negative) 12/12/22 20:33 Ur Leukocyte Esterase 3+ (Negative) H 12/12/22 20:33 Urine WBC (Auto) >30 /hpf (0-5) H 12/12/22 20:33 Urine RBC (Auto) 10-30 /hpf (0-4) H 12/12/22 20:33 U Hyaline Cast (Auto) 0 /lpf (0-5) 12/12/22 20:33 U Epithel Cells (Auto) >30 /lpf (0-5) H 12/12/22 20:33 Urine Bacteria (Auto) 4+ (Negative) H 12/12/22 20:33 Ur Renal Epithelial Cell 10-20 /lpf (0-5) H 12/12/22 20:33 Urine Yeast Not Reportable 12/12/22 20:33 Nasal Screen MRSA (PCR) Positive (Negative) A 12/12/22 23:00 Stool Occult Bld Scrn Positive (Negative) A 12/16/22 10:45 Stl C. cayetanensis PCR Not Detected (NotDetected) 12/15/22 09:27 Stool Rotavirus A PCR Not Detected (NotDetected) 12/15/22 09:27 Stl Adenov F 40/41 PCR Not Detected (NotDetected) 12/15/22 09:27 Stool Astrovirus (PCR) Not Detected (NotDetected) 12/15/22 09:27 Stool Campylobacter PCR Not Detected (NotDetected) 12/15/22 09:27 Stl C. diff Tox B Gene Positive Cdiff Gene (Neg) H 12/15/22 09:27 Stl C.difficile Tox A&B Negative Cdiff Toxin (Negative) 12/15/22 09:27 Stool Cryptosporidium PCR Not Detected (NotDetected) 12/15/22 09:27 Stl E.coli Shiga Tox PCR Not Detected (NotDetected) 12/15/22 09:27 Stl Enterotoxigenic E PCR Not Detected (NotDetected) 12/15/22 09:27 Stool EPEC (PCR) Not Detected (NotDetected) 12/15/22 09:27 Stool EAEC (PCR) Not Detected (NotDetected) 12/15/22 09:27 Stl E. histolytica PCR Not Detected (NotDetected) 12/15/22 09:27 Stool Giardia Lamblia PCR Not Detected (NotDetected) 12/15/22 09:27 Stool Salmonella PCR Not Detected (NotDetected) 12/15/22 09:27 Stool Sapovirus (PCR) Not Detected (NotDetected) 12/15/22 09:27 Stl P. shigelloides PCR Not Detected (NotDetected) 12/15/22 09:27 Stl Shigella/EIEC PCR Not Detected (NotDetected) 12/15/22 09:27 St Y.enterocolitica PCR Not Detected (NotDetected) 12/15/22 09:27 Stool Vibrio (PCR) Not Detected (NotDetected) 12/15/22 09:27 Stl Vibrio cholerae PCR Not Detected (NotDetected) 12/15/22 09:27 Stl Norovirus GI/GII PCR Not Detected (NotDetected) 12/15/22 09:27 Adenovirus (PCR) Not Detected (NotDetected) 12/12/22 19:27 B. pertussis DNA (PCR) Not Detected (NotDetected) 12/12/22 19:27 B.parapertussis DNA PCR Not Detected (NotDetected) 12/12/22 19:27 C. pneumoniae DNA (PCR) Not Detected (NotDetected) 12/12/22 19:27 Coronavirus OC43 (PCR) Not Detected (NotDetected) 12/12/22 19:27 Coronavirus HKU1 (PCR) Not Detected (NotDetected) 12/12/22 19:27 Coronavirus 229E (PCR) Not Detected (NotDetected) 12/12/22 19:27 SARS-CoV-2 (PCR) Not Detected (NotDetected) 12/12/22 19:27 Coronavirus NL63 (PCR) Not Detected (NotDetected) 12/12/22 19:27 Enterobacterales (PCR) DETECTED (NotDetected) A 12/12/22 19:27 Human Metapneumovir PCR Not Detected (NotDetected) 12/12/22 19:27 Influenza Type A (PCR) Not Detected (NotDetected) 12/12/22 19:27 Influenza Type B (PCR) Not Detected (NotDetected) 12/12/22 19:27 K. pneumoniae group (PCR) DETECTED (NotDetected) A 12/12/22 19:27 M. pneumoniae (PCR) Not Detected (NotDetected) 12/12/22 19:27 Parainfluenza 1 (PCR) Not Detected (NotDetected) 12/12/22 19:27 Parainfluenza 2 (PCR) Not Detected (NotDetected) 12/12/22 19:27 Parainfluenza 3 (PCR) Not Detected (NotDetected) 12/12/22 19:27 Parainfluenza 4 (PCR) Not Detected (NotDetected) 12/12/22 19:27 RSV (PCR) Not Detected (NotDetected) 12/12/22 19:27 Entero/Rhino (PCR) Not Detected (NotDetected) 12/12/22 19:27 mcr-1 Colistin Res Gene PCR Not Detected (NotDetected) 12/12/22 19:27 blaIMP Car res Gene PCR Not Detected (NotDetected) 12/12/22 19:27 KPC-Carbap Res Gene PCR Not Detected (NotDetected) 12/12/22 19:27 blaNDM Car Res Gene PCR Not Detected (NotDetected) 12/12/22 19:27 OXA-48 Carbapenem Resis Gene (PCR) Not Detected (NotDetected) 12/12/22 19:27 blaVIM Car Res Gene PCR Not Detected (NotDetected) 12/12/22 19:27 CTX-M Gene Resistance (PCR) Not Detected (NotDetected) 12/12/22 19:27 Bld Cult ID Panel PCR See PCR Comment (NotDetected) 12/12/22 19:27 Blood Type B Positive 12/16/22 13:02 Antibody Screen NEGATIVE 12/16/22 13:02 Crossmatch See Detail 12/16/22 13:02 Impressions Abdomen/Pelvis CT 12/12/22 19:21 Exam(s): CT ABDOMEN + PELVIS Without Contrast EXAM: CT Abdomen and Pelvis Without Intravenous Contrast CLINICAL HISTORY: Reason for exam: abd apin. TECHNIQUE: Axial computed tomography images of the abdomen and pelvis without intravenous contrast. CTDI is 28.14 mGy and DLP is 1415.4 mGy-cm. Automated exposure control was utilized for the study. A dose lowering technique was utilized adhering to the principles of ALARA. COMPARISON: No relevant prior studies available. FINDINGS: Lung bases: Unremarkable. No mass. No consolidation. ABDOMEN: Liver: Unremarkable. Gallbladder and bile ducts: Cholecystectomy clips. No ductal dilation. Pancreas: Unremarkable. No ductal dilation. Spleen: Unremarkable. No splenomegaly. Adrenals: Unremarkable. No mass. Kidneys and ureters: Unremarkable. No hydronephrosis or nephrolithiasis. Stomach and bowel: Circumferential wall thickening of the descending and sigmoid colon, with mild pericolonic fat stranding, consistent with mild colitis. No obstruction. PELVIS: Appendix: No findings to suggest acute appendicitis. Bladder: Decompressed urinary bladder. No stones. Reproductive: Unremarkable as visualized. ABDOMEN and PELVIS: Intraperitoneal space: Unremarkable. No free air. No significant fluid collection. Bones/joints: Degenerative changes of the spine. No acute fracture. No dislocation. Soft tissues: Unremarkable. Vasculature: Atherosclerotic changes of the aorta. No abdominal aortic aneurysm. Lymph nodes: Unremarkable. No enlarged lymph nodes. IMPRESSION: Circumferential wall thickening of the descending and sigmoid colon, with mild pericolonic fat stranding, consistent with mild colitis. Electronically signed by: Cezar Hansen MD 12/12/22 20:14 PM Chest X-Ray 12/12/22 23:57 XR chest 1V portable CLINICAL HISTORY: new central line R IJ placement TECHNIQUE: Single frontal radiograph of the chest was obtained. Comparison: Comparison is made to chest radiograph 12/12/2022 FINDINGS: Right sided venous catheter terminates in the lower SVC. The cardiomediastinal silhouette is normal. The lungs are clear. No evidence of pleural effusion or pneumothorax. IMPRESSION: Satisfactory position of right central line without evidence of pneumothorax. ACT 112: Negative or not required by law. Electronically signed by: Liban Jessica M.D. 12/13/2022 6:58 AM Hospital Course (1) Severe sepsis: (2) DAVONTE (acute kidney injury): (3) Hyponatremia: (4) Metabolic acidosis: (5) Diarrhea: Plan Patient is a 72 yr female with H/O Type 2 diabetes, on long-term insulin, iron metabolism disease, diabetic retinopathy, hyperlipidemia, moderate persistent asthma, obstructive sleep apnea does not tolerate BiPAP nocturnal oxygen 3 to 4 L, hypertension, pulmonary hypertension, PVCs, irritable bowel syndrome, GERD, chronic kidney disease stage III, restless leg syndrome, medical marijuana use, depression, KARI, PTSD, panic disorder, history of COVID, presents with diarrhea going on for 1 week and found to have severe sepsis, DAVONTE, hyperkalemia, hyponatremia and metabolic acidosis. Septic shock on POA Urosepsis on POA Off pressors. Urine culture and Blood culture grew Klebsiella pneumoniae; pansensitive. Repeat blood cultures negative so far. Status post Flagyl for 5 days Completed IV ceftriaxone coarse. Ambulatory dysfunction Volume Overload Patient has 3+ pitting edema in bilateral lower extremities. Likely due to volume resuscitation during the hospitalization due to septic shock Started on diuretics 40 mg twice daily. PT OT evaluation has completed; recommended rehab. Patient declined to go to rehab and plans to go home with home PT OT. Continue home diuretics on discharge DAVONTE Hyponatremia Hyperkalemia Metabolic acidosis DAVONTE likely due to septic shock Cr level improved to 1.2 Appreciate Nephrology Input Avoid nephrotoxic agents as able Acute blood loss anemia Likely secondary to upper GI bleed Esophageal candidiasis Diffuse gastritis Hemoglobin down trended from 10.7 on admission to 7 on 12/16/2022 S/P 1 unit of packed RBC Fecal occult positive --Underwent endoscopy on 12/17esophageal plaques found suspicious for candidiasis. Diffuse gastritis. --Started on Diflucan as per recommendation. Currently on Diflucan 100 mg; plan to continue for 2 weeks. Plan for colonoscopy as outpatient. Continue Protonix twice daily Continue fluconazole to complete the course Elevated troponin likely due to demand ischemia from septic shock, DAVONTE Echocardiogram showed EF of 55 to 60%; no significant valvular abnormality or wall motion abnormalities. Diarrhea Decreased appetite C. difficile colonization --CT abdomen and pelvis reviewed; consistent with colitis. Possible side effect of Ozempic increased dose. C. difficile gene positive, toxin negative; likely due to colonization. Improved MRSA nares positive: Bactroban 2% on anterior nares for 5 days Type II diabetes Patient states this takes 8o units of long-acting insulin the morning and and as needed short-acting HbA1c 6.4 She is also on Ozempic Currently we will place on insulin sliding scale Pharmacy on board. Obstructive sleep apnea Does not tolerate BiPAP On oxygen 3 to 4 L nightly Restless leg syndrome On pramipexole Hypertension Hold lisinopril, clonidine Advised to follow-up with PCP for further management Anxiety Continue Klonopin. Insomnia Monitor Irritable bowel syndrome Continue home medication History of asthma Continue home inhalers and nebs as needed GERD on Protonix DVT prophylaxis Heparin . Code Status DNR/DNI Disposition Home with HH Refused Rehab Total Time Total Time Spent Total Time Spent (In Minutes): 56 minutes Discharge Plan Discharge Items Patient Disposition: Home - Home Health Services Reason For Visit: DIARREAH Discharge Diagnosis: Septic shock Urinary tract infection Volume overload Acute kidney injury Hyponatremia Hyperkalemia Metabolic acidosis Esophageal candidiasis Diffuse Gastritis Acute blood loss anemia Activity: Per Instructions section Exercise/Sports: Gradually increase as tolerated Non-emergency contact: Primary Care Provider Call non-emergency contact if: you have any medication questions, your symptoms worsen, your pain is concerning for you and you have a fever Follow-up/Referrals: Chris Asencio, [Primary Care Provider] - (Date & Time 12/24/2022 3:20 PM Provider ADELA Shaikh Department [facility] ) Diet: Carb Consistent or DM2 and Heart Healthy Addtl Attending Provider Instructions: Follow-up with your primary care physician Dr. Chris Asencio on 12/24/2022 3:20 PM Follow up with your campground attendant Dr. Mora in 2 to 4 weeks. --Obtain colonoscopy as outpatient as recommended by your campground attendant. -- Your blood pressure medications are held due to low blood pressure. Monitor your blood pressure regularly at home and discuss with your primary care physician for further adjustment of medications as needed. --Complete the fluconazole course for esophageal candidiasis as advised. Seek immediate medical attention if your symptoms reoccur or worsen Please take all medications as instructed on discharge list below. Please call if you have any questions or problems. You can reach a [facility] hospitalist on duty at [facility] 24 hours a day by calling [phone] Pending Studies at Discharge: No Stand-Alone Forms: My [facility], Smoking Cessation Medications and DC Order Prescriptions: New fluconazole [Diflucan] 100 mg Tablet 100 mg PO QAM Qty: 9 0RF pantoprazole 40 mg Tablet,Delayed Release (Dr/Ec) 40 mg PO BID Qty: 60 1RF Continued furosemide 40 mg tablet 40 mg PO DAILY diphenoxylate-atropine 2.5-0.025 mg tablet 2 tab PO Q6 PRN (Reason: Diarrhea) methscopolamine 2.5 mg tablet 2.5 mg PO TID PRN (Reason: Cramps) Rx Instructions: TAKE 1 TAB UP TO 3 TIMES DAILY NEEDED FOR ABD CRAMPS & DIARRHEA fluticasone furoate-vilanterol [Breo Ellipta] 100-25 mcg/dose Blister With Device 1 inh INHALATION QAM diclofenac sodium 1 % Gel 2 g TOPICAL QID Rx Instructions: Apply to both knees ondansetron 4 mg Tablet,Disintegrating 4 mg PO Q6H PRN (Reason: Nausea) aspirin 81 mg tablet,chewable 81 mg PO DAILY atorvastatin 40 mg tablet 40 mg PO QAM pramipexole 1 mg tablet 1 mg PO HS albuterol sulfate 2.5 mg /3 mL (0.083 %) solution for nebulization 2.5 mg continuous nebulization Q4 PRN (Reason: Shortness Of Breath Or Wheezing) famotidine 40 mg tablet 40 mg PO DAILY prochlorperazine maleate [Compazine] 10 mg Tablet 10 mg PO Q6H PRN (Reason: Nausea) metoprolol succinate 25 mg tablet extended release 24 hr 25 mg PO QAM albuterol sulfate [Proventil HFA] 90 mcg/actuation Hfa Aerosol Inhaler 1 - 2 inh INHALATION QID PRN (Reason: Shortness Of Breath Or Wheezing) fluticasone propionate 50 mcg/actuation spray,suspension 2 spray INTRANASAL BID alosetron 1 mg tablet 1 mg PO BID clonazepam 0.5 mg tablet 0.5 mg PO TID PRN (Reason: Anxiety) doxepin 100 mg capsule 100 mg PO HS montelukast 10 mg tablet 10 mg PO QAM Ozempic 2 mg/dose (8 mg/3 mL) pen injector 0.75 mg SUBCUT WK metoprolol succinate 25 mg tablet extended release 24 hr 12.5 mg PO HS ferrous gluconate [Ferate] 240 mg (27 mg iron) tablet 240 mg PO DAILY Held lisinopril 20 mg tablet 20 mg PO QAM Hold Instructions: To be determined by Primary Care Physician as to when to resume clonidine HCl 0.1 mg tablet 0.1 mg PO BID Hold Instructions: To be determined by Primary Care Physician as to when to resume Discontinued omeprazole 20 mg Capsule,Delayed Release(Dr/Ec) 20 mg PO QAM Discharge Orders: Discharge Order (Routine); Ordered 12/22/22 Ordered By: Oscar Zhou/Other Patient Handouts: Managing Type 2 Diabetes, Special Foot Care for Diabetes Admission Data Admit Date/Time: 12/12/22 21:56 Attending Provider: Oscar Emerson Admit Provider: Carlitos Hinton Primary Care Provider: Chris Asencio Other Providers: Carlitos Hinton ; Parker Chavez ; Ernie Le ; Geovanna Bahena ; Chandra Stahl ; Naila Almaraz ; Kellie Padron ; Torri Dickey ; Rossy Gonzales ; Tavon Sherman ; Jose Keenan ; Jennifer Mora ; Sumit Pike ; Adán De La Garza ; Linda Miller ; Shalini Springer ; Clare Madrigal ; Brittany Blackman ; Samira Simons ; Haider Lam ; Jose Elias Dave ; Esthela Kang ; Krystle Eaton Jr ; [facility] ; [facility],Referral Center ; [facility],Home Healthcare Other Interventions: Discharge Summary Assessment (RN) Last Done: 12/22/22 13:42 Discharge Summary Assessment (RN) Last Done: 12/17/22 11:39
== END 2022-12-22 15:02 | disposition home health service (06) | DRG 871 ==
LOC: ED 18:57 → SUATTDRO 21:56 → 1E 21:56 → 2E 12-15 14:43

== ENCOUNTER 2023-06-19 15:10 | Inpatient (IN) ==
--- NOTE | 2023-06-19 15:16 | ED Triage Note ---
Date of Service June 19, 2023 Provider in Triage Author: Olya Hernandez History of Present Illness This patient was briefly evaluated while in triage. An abbreviated physical exam was performed. This patient is a 73-year-old Female who presents to the ED for evaluation following referral by PCP. Outpatient labs demonstrate hyperkalemia and ARF. Denies any illness or pain. Physical Exam Constitutional: alert and oriented x3. no acute distress. HEENT: normocephalic, atraumatic. normal conjunctiva.PERRLA. EOM's grossly intact. Respiratory: equal chest rise. normal respiratory effort, no accessory muscle use. Cardiovascular: regular rate and rhythm. MSK: moves all 4 extremities spontaneously Psych:appropriate mood and affect. Initial orders for labs and / or imaging were placed and patient was placed in the waiting area until a bed is available. Please see further documentation for the full ED course.
[2023-06-19 16:25] LABS: Basophils # (auto) 0.01 K/uL (0.00-0.20); Basophils % (auto) 0.1 %; Eosinophils # (auto) 0.13 K/uL (0.00-0.50); Eosinophils % (auto) 1.7 %; Hematocrit (blood only) 35.5 % (37.0-47.0); Hemoglobin 11.6 g/dl (12.0-16.0); Immature Granulocytes # (auto) 0.03 K/uL (0.01-0.20); Immature Granulocytes % (auto) 0.4 %; Lymphocytes # (auto) 1.21 K/uL (1.20-3.40); Lymphocytes % (auto) 16.1 %; Mean Corpuscular Hgb Conc 32.7 g/dL (32.0-36.0); Mean Corpuscular Volume 91.7 fL (80.0-100.0); Mean Platelet Volume 10.9 fL (9.4-12.4); Monocytes # (auto) 0.48 K/uL (0.11-0.59); Monocytes % (auto) 6.4 %; Neutrophils # (auto) 5.66 K/uL (1.40-6.50); Neutrophils % (auto) 75.3 %; Platelet Count 300 K/uL (130-400); RDW Coefficient of Variation 15.8 % (11.5-14.5); RDW Standard Deviation 53.1 fL (36.4-46.3); Red Blood Count 3.87 M/uL (4.20-5.40); White Blood Count 7.52 K/ul (4.8-10.8)
[2023-06-19 16:34] LABS: Alanine Aminotransferase 11 U/L (7-52); Albumin Globulin Ratio 1.3 (0.9-2); Albumin Level 4.7 gm/dl (3.4-5.0); Alkaline Phosphatase 110 U/L (34-104); Anion Gap 9 (3-11); Aspartate Aminotransferase 12 U/L (13-39); BUN Creatinine Ratio 23.5 (10-20); Bilirubin,Total 0.8 mg/dl (0.2-1.0); Blood Urea Nitrogen 95 mg/dl (6-23); Calcium 10.3 mg/dl (8.6-10.3); Carbon Dioxide 25 mmol/L (21-32); Chloride 97 mmol/L (98-107); Est GFR (African American) 12.1 ml/min; Est GFR (Non-African American) 10.4 ml/min; Globulin 3.5 gm/dl (2.5-4.0); Glucose 173 mg/dl (70-99(Fasting)); Potassium 5.2 mmol/L (3.5-5.1); Sodium 131 mmol/L (136-145); Total Protein 8.2 gm/dl (6.0-8.3)
--- NOTE | 2023-06-19 16:50 | XRay Report ---
XR chest 1V portable HISTORY: 73 years-old Female cP acute chest pain COMPARISON: 12/13/2022 TECHNIQUE: AP view of the chest FINDINGS: Cardiac silhouette is mildly enlarged. No pneumothorax, pleural effusion or pulmonary edema. Mild sub segmental left basilar atelectasis versus scarring. Numerous round radiodensities projected of the le ft shoulder redemonstrated. Degenerative changes of the shoulders and spine. IMPRESSION: No acute process. ACT 112: Negative or not required by law. The above report was generated using voice recognition software. It may contain grammatical, syntax o r spelling errors. Electronically signed by: Mauri Campos M.D. 06/19/2023 4:49 PM
--- NOTE | 2023-06-19 17:50 | History & Physical Report ---
Date of Service June 19, 2023 Assessment & Plan (1) Acute renal failure: Plan: Acute on chronic renal failure likely combination of possible underlying renal disease? in combination with lisinopril, lasix and NSAID use in addition to poor PO intake. This patient has a h/o sepsis induced ATN with a high creatinine peaking around 13 during admission November 2022 that was responsive to fluids and she did not require hemodialysis. She had two episodes of this type of thing in the past. 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 Cont with IVF overnight and trend BMP in am. Cont voltaren gel for now pending further recs from nephrology. Otherwise avoid NSAIDs, ACEI and diuretics. Notably ANCA neg, ANU, MILAGROS, ds MILAGROS all negative and no proteinuria per outpatient records reviewed. Urine studies are pending. Nephrology consulted. (2) Hyperkalemia: Plan: K is elevated but not critical at 5.2 today on repeat check. Counseled her on avoiding fruit juices and bananas or other high K sources of food. Holding lisinopril. Trend in am. (3) DM type 2 (diabetes mellitus, type 2): Plan: chronic, well controlled on care home insulin therapy. Cont basal/bolus insulin. (4) Hypertension: Plan: chronic, currently hypotensive. Holding antihypertensives. (5) Morbid obesity: Plan: weight loss recommended for overall better health. Chronic pain possibly contributing. Scheduled tylenol for joint pain. She continues on Ozempic on fridays. (6) Anxiety: Plan: chronic, controlled. Cont scheduled clonazepam per home regimen and doxepin. Heparin-DVT proph Full Code-initial resuscitation ok with temporary ventilator support. NO PROLONGED VENTILATOR SUPPORT DESIRED, per my conversation with she and her on admission. Dispo-to telemetry. Will be here for a min of two midnights. I spent a total [id number] coordinating, documenting, and providing care for this patient excluding time spent in the performance of separately billed services Eliana Carter DO [facility] Hospitalist History of Present Illness Chief Complaint: abnormal labs Primary Care Provider: Chris Asencio DO 73-year-old female referred by her medical records analyst after outpatient testing revealed hyperkalemia with a K of 6.2 and an elevated creatinine despite stopping lisinopril and Lasix. The patient has a history of sepsis induced ATN with a max creatinine of around 13 with her last admission over the summer 2022. She has recently been noted on trending lab work to have a rising creatinine. She is being followed by Dr. Soni of [facility] nephrology who recently ordered complement and ANCA panels which were negative. ANU, MILAGROS and dsDNA evaluations were also negative. No evidence of proteinuria on outpatient lab work yesterday. Was told to stop her lasix and lisinopril. She just stopped two weeks ago as advised but then restarted the lisinopril again because of high BP readings at home. Then she noticed her urine output decreasing despite drinking 3-4 small jugs of water each day. Noticed her hands and feet were swelling and that she was starting to gain weight. She restarted the lasix again but only took 40mg once per day. This helped her symptoms and improved her urine output initially, but then felt her urine output decreasing again, so she gave herself a second dose of 40mg in the afternoons, and the urine output improved again. She was feeling fine but noticed her urine output declining again. Noted having recently taken naproxen two days only about 1-2 weeks ago for severe joint pain. Denies chest pain, SOB, abd pain, nausea, vomiting, changes in bowels, no urination issues except for that lower amount noted above. Reports a 13 lb weight gain in last 2-4 weeks from poor appetite. Reports food didn't taste good to her. is at bedside and assists with the history. Allergies Allergy/AdvReac Type Severity Reaction Status Date / Time bee venom protein (honey bee) Allergy Severe ANAPHYLAXIS Verified 06/19/23 17:11 iodine Allergy Severe ANAPHYLAXIS Verified 06/19/23 17:11 -SHELLFISH colestipol Allergy Unknown RASH Verified 06/19/23 17:11 doxycycline Allergy Unknown HIVES Verified 06/19/23 17:11 glimepiride Allergy Unknown RASH Verified 06/19/23 17:11 glyburide Allergy Unknown RASH Verified 06/19/23 17:11 metformin Allergy Unknown RASH Verified 06/19/23 17:11 ondansetron [From Zofran] Allergy Unknown Unknown Verified 06/19/23 17:11 pioglitazone Allergy Unknown RASH Verified 06/19/23 17:11 rosuvastatin Allergy Unknown ITCHING Verified 06/19/23 17:11 RASH shellfish derived Allergy Unknown SWELLING Verified 06/19/23 17:11 OF FACE AND MOUTH tramadol Allergy Unknown EARS RING, Verified 06/19/23 17:11 FUZZY VISION melatonin AdvReac Intermediate Causes Unverified 06/19/23 17:12 insomnia and makes me wide awake amitriptyline [From Elavil] AdvReac Unknown WT GAIN Verified 06/19/23 17:11 diphenhydramine AdvReac Unknown HEAD GOES Verified 06/19/23 17:11 CRAZY-RINGING EARS,STRANGE hydroxyzine AdvReac Unknown MENTAL Verified 06/19/23 17:11 CONFUSION pseudoephedrine AdvReac Unknown JITTERINESS Verified 06/19/23 17:11 sulfamethoxazole AdvReac Unknown Unknown Verified 06/19/23 17:11 [From Bactrim] trimethoprim [From Bactrim] AdvReac Unknown Unknown Verified 06/19/23 17:11 Home Medications Medication Instructions Recorded Confirmed Type furosemide 40 mg tablet 40 mg PO QAM 05/03/18 06/19/23 History methscopolamine 2.5 mg tablet 2.5 mg PO QAM Cramps 05/03/18 06/19/23 History diclofenac sodium 1 % topical gel 2 g topical QID PRN joint pain 07/22/18 06/19/23 History fluticasone furoate 100 1 inh inhalation QAM 07/22/18 06/19/23 History mcg-vilanterol 25 mcg/dose inhalation powder (Breo Ellipta) ondansetron 4 mg disintegrating 4 mg PO Q6H PRN Nausea 07/22/18 06/19/23 History tablet albuterol sulfate 90 mcg/actuation 1 - 2 inh inhalation QID PRN 09/14/21 4 History aerosol inhaler (Proventil HFA) Shortness Of Breath Or Wheezing aspirin 81 mg chewable tablet 81 mg PO QAM 09/14/21 06/19/23 History atorvastatin 40 mg tablet 40 mg PO HS 09/14/21 06/19/23 History clonazepam 0.5 mg tablet 0.5 mg PO TID Anxiety 09/14/21 06/19/23 History famotidine 40 mg tablet 40 mg PO QAM 09/14/21 06/19/23 History fluticasone propionate 50 2 spray intranasal BID 09/14/21 06/19/23 History mcg/actuation nasal spray,suspension lisinopril 20 mg tablet 20 mg PO QAM 09/14/21 06/19/23 History metoprolol succinate 25 mg See Rx Instructions .Route .COMPLEX 09/14/21 06/19/23 History tablet,extended release 24 hr montelukast 10 mg tablet 10 mg PO QAM 09/14/21 06/19/23 History pramipexole 1 mg tablet 1 mg PO HS 09/14/21 06/19/23 History ferrous gluconate 240 mg (27 mg 240 mg PO Q2D 12/12/22 06/19/23 History iron) tablet (Ferate) pantoprazole 40 mg tablet,delayed 40 mg PO BID #60 tabs 12/22/22 06/19/23 Rx release budesonide 0.5 mg/2 mL suspension 0.5 mg inhalation BID 06/19/23 06/19/23 History for nebulization conjugated estrogens 0.625 mg/gram 1 applic vaginal HS 06/19/23 06/19/23 History vaginal cream (Premarin) doxepin 150 mg capsule 150 mg PO HS 06/19/23 06/19/23 History insulin aspart U-100 100 unit/mL 4 unit subcut TID PRN sliding scale 06/19/23 06/19/23 History (3 mL) subcutaneous pen (Novolog FlexPen U-100 Insulin aspart) insulin glargine U-300 conc 300 22 unit subcut QAM 06/19/23 06/19/23 History unit/mL (1.5 mL) subcutaneous pen (Toujeo SoloStar U-300 Insulin) semaglutide 0.25 mg or 0.5 mg (2 0.5 mg subcut WK 06/19/23 06/19/23 History mg/3 mL) subcutaneous pen injector (Ozempic) Past Med/Surg History Medical History RLS (restless legs syndrome) Pulmonary HTN KATERIN (obstructive sleep apnea) CKD (chronic kidney disease) stage 3, GFR 30-59 ml/min 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 Neuropathy DIABETIC NEUROPATHY- FEET Chronic back pain LOWER Osteoarthritis Temporomandibular joint disorder + CLICKING; NO LOCKING Diverticular disease GERD (gastroesophageal reflux disease) CONTROLLED Asthma moderate persistent Migraine History of opioid abuse PER RECORDS Panic disorder Depression DJD (degenerative joint disease), cervical GERD (gastroesophageal reflux disease) Venous insufficiency DM type 2 (diabetes mellitus, type 2) IDDM IBS (irritable bowel syndrome) Osteoporosis Dyslipidemia Anxiety Hypertension Surgical History History of difficult intubation RIGHT SHOULDER SCOPE WITH RCR= 06/29/16= GLIDESCOPE #3 "GOOD VIEW", ETT 7 AT [facility] Perianal abscess S/P DRAINAGE History of repair of rotator cuff B/L History of esophagogastroduodenoscopy (EGD) History of colonoscopy 02/2021, sigmoid diverticulosis, poor prep History of total knee replacement LEFT H/O arthroscopic knee surgery LEFT S/P cholecystectomy H/O colonoscopy S/P hysterectomy Family History Sister Family history of diabetes mellitus Family hx of colon cancer Brother Family history of diabetes mellitus Grandmother (Maternal) Family history of diabetes mellitus Family/Other Family history of diabetes mellitus Other Diabetes Social History Smoking Status: Never smoker Second Hand Exposure: No; Do You Dip or Chew Tobacco: No; Hx Alcohol Use: No Hx Substance Use: No Preferred Language: Romanian Communication Ability: Effective Wedding Designer Required: No Beliefs That Will Affect Care: None marital status: Current Living Situation: Spouse Current Living Situation Comment: home current occupational status: retired Feels Safe at Home: Yes Assistive Devices: Cane, Oxygen - at Night, Oxygen - Continuous and Walker Physical Exam Physical Exam: CONSTITUTIONAL: obese, vitals as above, generally well-appearing, NAD EYES: pupils are round and equal bilaterally, normal conjunctivae, no scleral icterus ENT: external ear and nose normal, oropharynx clear, MMM NECK: trachea midline, RESPIRATORY: clear to auscultation bilaterally, no crackles, rales or wheezes, normal respiratory effort CARDIOVASCULAR: regular rate and rhythm, S1 and 2 heard without murmurs, gallops or rubs, no JVD, no peripheral edema CHEST: inspection of chest was normal GASTROINTESTINAL: soft, nontender, ND, no guarding MUSCULOSKELETAL: strength 5/5 throughout, head is normocephalic and atraumatic SKIN: warm and dry NEUROLOGIC: CN 2-12 grossly intact, no sensory deficit, normal cognition, normal speech, no tremor PSYCHIATRIC: alert cooperative and oriented to person, place and time. Euthymic mood, makes good eye contact, language grossly intact, recent and remote memory grossly intact. Results & Data Results & Data Vital Signs (Past 12 Hours) Vital Signs Temp Pulse Resp BP Pulse Ox O2 Del Method 06/19/23 16:13 71 06/19/23 15:15 36.6 C 74 20 120/65 95 Room Air Laboratory Results Short CBC 06/19/23 Range/Units 15:46 WBC 7.52 (4.8-10.8) K/ul Hgb 11.6 L (12.0-16.0) g/dl Hct 35.5 L (37.0-47.0) % Plt Count 300 (130-400) K/uL BMP 06/19/23 15:46 Sodium 131 L Potassium 5.2 H Chloride 97 L Carbon Dioxide 25 BUN 95 H Creatinine 4.05 H Glucose 173 H Calcium 10.3 Liver Function 06/19/23 Range/Units 15:46 Total Bilirubin 0.8 (0.2-1.0) mg/dl AST 12 L (13-39) U/L ALT 11 (7-52) U/L Alkaline Phosphatase 110 H (34-104) U/L Albumin 4.7 (3.4-5.0) gm/dl Diagnostic Findings Chest X-Ray 06/19/23 15:17 XR chest 1V portable HISTORY: 73 years-old Female cP acute chest pain COMPARISON: 12/13/2022 TECHNIQUE: AP view of the chest FINDINGS: Cardiac silhouette is mildly enlarged. No pneumothorax, pleural effusion or pulmonary edema. Mild subsegmental left basilar atelectasis versus scarring. Numerous round radiodensities projected of the left shoulder redemonstrated. Degenerative changes of the shoulders and spine. IMPRESSION: No acute process. ACT 112: Negative or not required by law. The above report was generated using voice recognition software. It may contain grammatical, syntax or spelling errors. Electronically signed by: Mauri Campos M.D. 06/19/2023 4:49 PM (1) Acute renal failure Acute renal failure type: unspecified Qualified Code(s): N17.9 - Acute kidney failure, unspecified
[2023-06-19] MEDS: SODIUM CHLORIDE 0.9% 1,000 ML IV SCH (18:31)
[2023-06-19 18:33] LABS: Appearance Urine Clear (Clear); Bacteria Urine Automated Negative (Negative); Bilirubin Urine Negative (Negative); Blood Urine Negative (Negative); Cast Urine Automated 0 /lpf (0-5); Color Urine Yellow; Epithelial Cell Urine Auto >30 /lpf (0-5); Glucose Urine UA Negative (Negative); Ketones Urine Negative (Negative); Leukocyte Esterase Urine 1+ (Negative); Nitrite Urine Negative (Negative); Protein Urine Negative (Negative); RBC Urine Automated 0-4 /hpf (0-4); Specific Gravity Urine 1.007 (1.000-1.030); Urobilinogen Urine Negative (Negative); pH Urine 5.5 (4.5-7.5)
[2023-06-19 19:17] LABS: Amphetamines+Metham, Urine Neg (Neg); Barbiturates, Urine Neg (Neg); Benzodiazepine, Urine Neg (Neg); Cocaine, Urine Neg (Neg); MDMA (Ecstacy), Urine Neg (Neg); Marijuana, Urine Neg (Neg); Methadone, Urine Neg (Neg); Opiate, Urine Neg (Neg); Phencyclidine, Urine Neg (Neg)
[2023-06-19 20:23] LABS: Total Protein Urine Random 8.1 mg/dl (0-11.9)
[2023-06-19 20:28] LABS: Creatinine Urine Random 26.9 mg/dl; Protein Creatinine Ratio Urine 0.3 (0-0.2)
--- NOTE | 2023-06-19 21:28 | Emergency Department Note ---
History of Present Illness General Chief Complaint: Referred by Doctor Stated Complaint: DOC TOLD TO COME OVER Time Seen by Provider: 06/19/23 15:58 History of Present Illness Provider Complaint: + abnormal lab Description of abnormal result: Potassium 6.2 BUN 91 creatinine 3.8 referred by [facility] neph[facility] Dr. Rutledge Associated symptoms: + none; no fever, no chills, no chest pain, no shortness of breath, no rash or no abdominal pain Home Medications Medication Instructions Recorded Confirmed Type furosemide 40 mg tablet 40 mg PO QAM 05/03/18 06/19/23 History methscopolamine 2.5 mg tablet 2.5 mg PO QAM Cramps 05/03/18 06/19/23 History diclofenac sodium 1 % topical gel 2 g topical QID PRN joint pain 07/22/18 06/19/23 History fluticasone furoate 100 1 inh inhalation QAM 07/22/18 06/19/23 History mcg-vilanterol 25 mcg/dose inhalation powder (Breo Ellipta) ondansetron 4 mg disintegrating 4 mg PO Q6H PRN Nausea 07/22/18 06/19/23 History tablet albuterol sulfate 90 mcg/actuation 1 - 2 inh inhalation QID PRN 09/14/21 06/19/23 History aerosol inhaler (Proventil HFA) Shortness Of Breath Or Wheezing aspirin 81 mg chewable tablet 81 mg PO QAM 09/14/21 06/19/23 History atorvastatin 40 mg tablet 40 mg PO HS 09/14/21 06/19/23 History clonazepam 0.5 mg tablet 0.5 mg PO TID Anxiety 09/14/21 06/19/23 History famotidine 40 mg tablet 40 mg PO QAM 09/14/21 06/19/23 History fluticasone propionate 50 2 spray intranasal BID 09/14/21 06/19/23 History mcg/actuation nasal spray,suspension lisinopril 20 mg tablet 20 mg PO QAM 09/14/21 06/19/23 History metoprolol succinate 25 mg See Rx Instructions .Route .COMPLEX 09/14/21 06/19/23 History tablet,extended release 24 hr montelukast 10 mg tablet 10 mg PO QAM 09/14/21 06/19/23 History pramipexole 1 mg tablet 1 mg PO HS 09/14/21 06/19/23 History ferrous gluconate 240 mg (27 mg 240 mg PO Q2D 12/12/22 06/19/23 History iron) tablet (Ferate) pantoprazole 40 mg tablet,delayed 40 mg PO BID #60 tabs 12/22/22 06/19/23 Rx release budesonide 0.5 mg/2 mL suspension 0.5 mg inhalation BID 06/19/23 06/19/23 History for nebulization conjugated estrogens 0.625 mg/gram 1 applic vaginal HS 06/19/23 06/19/23 History vaginal cream (Premarin) doxepin 150 mg capsule 150 mg PO HS 06/19/23 06/19/23 History insulin aspart U-100 100 unit/mL 4 unit subcut TID PRN sliding scale 06/19/23 06/19/23 History (3 mL) subcutaneous pen (Novolog FlexPen U-100 Insulin aspart) insulin glargine U-300 conc 300 22 unit subcut QAM 06/19/23 06/19/23 History unit/mL (1.5 mL) subcutaneous pen (Toujeo SoloStar U-300 Insulin) semaglutide 0.25 mg or 0.5 mg (2 0.5 mg subcut WK 06/19/23 06/19/23 History mg/3 mL) subcutaneous pen injector (Ozempic) Allergies Allergy/AdvReac Type Severity Reaction Status Date / Time bee venom protein (honey bee) Allergy Severe ANAPHYLAXIS Verified 06/19/23 17:11 iodine Allergy Severe ANAPHYLAXIS Verified 06/19/23 17:11 -SHELLFISH colestipol Allergy Unknown RASH Verified 06/19/23 17:11 doxycycline Allergy Unknown HIVES Verified 06/19/23 17:11 glimepiride Allergy Unknown RASH Verified 06/19/23 17:11 glyburide Allergy Unknown RASH Verified 06/19/23 17:11 metformin Allergy Unknown RASH Verified 06/19/23 17:11 ondansetron [From Zofran] Allergy Unknown Unknown Verified 06/19/23 17:11 pioglitazone Allergy Unknown RASH Verified 06/19/23 17:11 rosuvastatin Allergy Unknown ITCHING Verified 06/19/23 17:11 RASH shellfish derived Allergy Unknown SWELLING Verified 06/19/23 17:11 OF FACE AND MOUTH tramadol Allergy Unknown EARS RING, Verified 06/19/23 17:11 FUZZY VISION melatonin AdvReac Intermediate Causes Unverified 06/19/23 17:12 insomnia and makes me wide awake amitriptyline [From Elavil] AdvReac Unknown WT GAIN Verified 06/19/23 17:11 diphenhydramine AdvReac Unknown HEAD GOES Verified 06/19/23 17:11 CRAZY-RINGING EARS,STRANGE hydroxyzine AdvReac Unknown MENTAL Verified 06/19/23 17:11 CONFUSION pseudoephedrine AdvReac Unknown JITTERINESS Verified 06/19/23 17:11 sulfamethoxazole AdvReac Unknown Unknown Verified 06/19/23 17:11 [From Bactrim] trimethoprim [From Bactrim] AdvReac Unknown Unknown Verified 06/19/23 17:11 Past Med/Surg History Medical History RLS (restless legs syndrome) Pulmonary HTN KATERIN (obstructive sleep apnea) CKD (chronic kidney disease) stage 3, GFR 30-59 ml/min 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 Neuropathy DIABETIC NEUROPATHY- FEET Chronic back pain LOWER Osteoarthritis Temporomandibular joint disorder + CLICKING; NO LOCKING Diverticular disease GERD (gastroesophageal reflux disease) CONTROLLED Asthma moderate persistent Migraine History of opioid abuse PER RECORDS Panic disorder Depression DJD (degenerative joint disease), cervical GERD (gastroesophageal reflux disease) Venous insufficiency DM type 2 (diabetes mellitus, type 2) IDDM IBS (irritable bowel syndrome) Osteoporosis Dyslipidemia Anxiety Hypertension Surgical History History of difficult intubation RIGHT SHOULDER SCOPE WITH RCR= 06/29/16= GLIDESCOPE #3 "GOOD VIEW", ETT 7 AT [facility] Perianal abscess S/P DRAINAGE History of repair of rotator cuff B/L History of esophagogastroduodenoscopy (EGD) History of colonoscopy 02/2021, sigmoid diverticulosis, poor prep History of total knee replacement LEFT H/O arthroscopic knee surgery LEFT S/P cholecystectomy H/O colonoscopy S/P hysterectomy Family History Sister Family history of diabetes mellitus Family hx of colon cancer Brother Family history of diabetes mellitus Grandmother (Maternal) Family history of diabetes mellitus Family/Other Family history of diabetes mellitus Other Diabetes Social History Smoking Status: Never smoker Second Hand Exposure: No; Do You Dip or Chew Tobacco: No; Hx Alcohol Use: No Hx Substance Use: No Preferred Language: [place] Communication Ability: Effective Trouble Tracer Required: No Beliefs That Will Affect Care: None marital status: Current Living Situation: Spouse Current Living Situation Comment: home current occupational status: retired Feels Safe at Home: Yes Assistive Devices: Cane, Oxygen - at Night, Oxygen - Continuous and Walker Physical Exam 2 Vital Signs: Vital Signs - 24 hr 06/19/23 15:15 06/19/23 16:03 06/19/23 16:10 Temperature 36.6 C Temperature Source Oral Pulse Rate 74 72 73 Pulse Rate [Apical ] Pulse Rate from Sp O2 Sensor 73 Respiratory Rate 20 15 21 Respiratory Effort / Characteristics Non-Labored Respiratory Depth Normal Blood Pressure 120/65 Blood Pressure [Le ft Arm] Blood Pressure Jimena n 83 Blood Pressure Jimena n [Left Arm] Pulse Oximetry 95 98 Oxygen Delivery Me thod Room Air Sepsis Recent Feve r Within 48 Hours No Sepsis New/Unexpla ined Change in Men enrique Status No Sepsis Action Take n by Nursing No Action Required 06/19/23 16:13 06/19/23 16:20 06/19/23 16:30 Temperature Temperature Source Pulse Rate 71 68 Pulse Rate [Apical ] Pulse Rate from Sp O2 Sensor 69 72 Respiratory Rate 19 Respiratory Effort / Characteristics Respiratory Depth Blood Pressure Blood Pressure [Le ft Arm] Blood Pressure Jimena n Blood Pressure Jimena n [Left Arm] Pulse Oximetry 98 97 Oxygen Delivery Me thod Sepsis Recent Feve r Within 48 Hours Sepsis New/Unexpla ined Change in Men enrique Status Sepsis Action Take n by Nursing 06/19/23 16:40 06/19/23 16:50 06/19/23 17:00 Temperature Temperature Source Pulse Rate 71 94 H Pulse Rate [Apical ] Pulse Rate from Sp O2 Sensor 71 67 66 Respiratory Rate 23 21 Respiratory Effort / Characteristics Respiratory Depth Blood Pressure Blood Pressure [Le ft Arm] Blood Pressure Jimena n Blood Pressure Jimena n [Left Arm] Pulse Oximetry 99 98 98 Oxygen Delivery Me thod Sepsis Recent Feve r Within 48 Hours Sepsis New/Unexpla ined Change in Men enrique Status Sepsis Action Take n by Nursing 06/19/23 17:10 06/19/23 17:20 06/19/23 17:30 Temperature Temperature Source Pulse Rate 68 72 67 Pulse Rate [Apical ] Pulse Rate from Sp O2 Sensor 66 66 67 Respiratory Rate 18 18 18 Respiratory Effort / Characteristics Respiratory Depth Blood Pressure Blood Pressure [Le ft Arm] Blood Pressure Jimena n Blood Pressure Jimena n [Left Arm] Pulse Oximetry 99 98 98 Oxygen Delivery Me thod Sepsis Recent Feve r Within 48 Hours Sepsis New/Unexpla ined Change in Men enrique Status Sepsis Action Take n by Nursing 06/19/23 17:40 06/19/23 17:50 06/19/23 18:00 Temperature Temperature Source Pulse Rate 68 67 76 Pulse Rate [Apical ] Pulse Rate from Sp O2 Sensor 67 66 Respiratory Rate 18 17 20 Respiratory Effort / Characteristics Respiratory Depth Blood Pressure Blood Pressure [Le ft Arm] Blood Pressure Jimena n Blood Pressure Jimena n [Left Arm] Pulse Oximetry 100 100 Oxygen Delivery Me thod Sepsis Recent Feve r Within 48 Hours Sepsis New/Unexpla ined Change in Men enrique Status Sepsis Action Take n by Nursing 06/19/23 18:10 06/19/23 18:20 06/19/23 18:30 Temperature Temperature Source Pulse Rate 64 63 63 Pulse Rate [Apical ] Pulse Rate from Sp O2 Sensor 64 63 64 Respiratory Rate 14 19 17 Respiratory Effort / Characteristics Respiratory Depth Blood Pressure Blood Pressure [Le ft Arm] Blood Pressure Jimena n Blood Pressure Jimena n [Left Arm] Pulse Oximetry 99 100 100 Oxygen Delivery Me thod Sepsis Recent Feve r Within 48 Hours Sepsis New/Unexpla ined Change in Men enrique Status Sepsis Action Take n by Nursing 06/19/23 18:30 06/19/23 18:36 06/19/23 18:40 Temperature Temperature Source Pulse Rate 65 Pulse Rate [Apical ] 62 Pulse Rate from Sp O2 Sensor 64 Respiratory Rate 15 16 Respiratory Effort / Characteristics Respiratory Depth Blood Pressure 98/72 L Blood Pressure [Le ft Arm] 98/72 L Blood Pressure Jimena n 79 Blood Pressure Jimena n [Left Arm] 80 Pulse Oximetry 99 100 Oxygen Delivery Me thod Room Air Sepsis Recent Feve r Within 48 Hours Sepsis New/Unexpla ined Change in Men enrique Status Sepsis Action Take n by Nursing 06/19/23 18:50 06/19/23 19:00 06/19/23 19:10 Temperature Temperature Source Pulse Rate 64 63 Pulse Rate [Apical ] Pulse Rate from Sp O2 Sensor 65 65 66 Respiratory Rate 23 18 19 Respiratory Effort / Characteristics Respiratory Depth Blood Pressure Blood Pressure [Le ft Arm] Blood Pressure Jimena n Blood Pressure Jimena n [Left Arm] Pulse Oximetry 100 99 96 Oxygen Delivery Me thod Sepsis Recent Feve r Within 48 Hours Sepsis New/Unexpla ined Change in Men enrique Status Sepsis Action Take n by Nursing 06/19/23 19:20 06/19/23 19:27 06/19/23 19:27 Temperature Temperature Source Pulse Rate 79 62 Pulse Rate [Apical ] Pulse Rate from Sp O2 Sensor 66 62 Respiratory Rate 18 14 Respiratory Effort / Characteristics Respiratory Depth Blood Pressure 100/60 Blood Pressure [Le ft Arm] Blood Pressure Jimena n 73 Blood Pressure Jimena n [Left Arm] Pulse Oximetry 97 100 Oxygen Delivery Me thod Sepsis Recent Feve r Within 48 Hours Sepsis New/Unexpla ined Change in Men enrique Status Sepsis Action Take n by Nursing 06/19/23 19:30 06/19/23 19:40 06/19/23 19:50 Temperature Temperature Source Pulse Rate 127 H 70 67 Pulse Rate [Apical ] Pulse Rate from Sp O2 Sensor 71 71 67 Respiratory Rate 13 23 13 Respiratory Effort / Characteristics Respiratory Depth Blood Pressure Blood Pressure [Le ft Arm] Blood Pressure Jimena n Blood Pressure Jimena n [Left Arm] Pulse Oximetry 100 100 100 Oxygen Delivery Me thod Sepsis Recent Feve r Within 48 Hours Sepsis New/Unexpla ined Change in Men enrique Status Sepsis Action Take n by Nursing 06/19/23 20:00 06/19/23 20:10 06/19/23 20:20 Temperature Temperature Source Pulse Rate 69 84 Pulse Rate [Apical ] Pulse Rate from Sp O2 Sensor 69 69 70 Respiratory Rate 14 22 12 Respiratory Effort / Characteristics Respiratory Depth Blood Pressure Blood Pressure [Le ft Arm] Blood Pressure Jimena n Blood Pressure Jimena n [Left Arm] Pulse Oximetry 98 98 98 Oxygen Delivery Me thod Sepsis Recent Feve r Within 48 Hours Sepsis New/Unexpla ined Change in Men enrique Status Sepsis Action Take n by Nursing 06/19/23 20:30 06/19/23 20:40 06/19/23 20:43 Temperature Temperature Source Pulse Rate 71 79 68 Pulse Rate [Apical ] Pulse Rate from Sp O2 Sensor 71 72 Respiratory Rate 17 13 Respiratory Effort / Characteristics Respiratory Depth Blood Pressure Blood Pressure [Le ft Arm] Blood Pressure Jimena n Blood Pressure Jimena n [Left Arm] Pulse Oximetry 98 98 Oxygen Delivery Me thod Sepsis Recent Feve r Within 48 Hours Sepsis New/Unexpla ined Change in Men enrique Status Sepsis Action Take n by Nursing 06/19/23 20:50 Temperature Temperature Source Pulse Rate 68 Pulse Rate [Apical ] Pulse Rate from Sp O2 Sensor 68 Respiratory Rate 18 Respiratory Effort / Characteristics Respiratory Depth Blood Pressure Blood Pressure [Le ft Arm] Blood Pressure Jimena n Blood Pressure Jimena n [Left Arm] Pulse Oximetry 97 Oxygen Delivery Me thod Sepsis Recent Feve r Within 48 Hours Sepsis New/Unexpla ined Change in Men enrique Status Sepsis Action Take n by Nursing Physical Exam: Physical Exam GENERAL: oriented to person, place, and time. appears well-developed and well- nourished. HENT: Exam performed. - Head: Normocephalic and atraumatic. EYES: Conjunctivae and EOM are normal. Right eye exhibits no discharge. Left eye exhibits no discharge. No scleral icterus. NECK: Normal range of motion. Neck supple. No JVD present. CV: Normal rate, regular rhythm, normal heart sounds and intact distal pulses. There is no peripheral edema. Palpable radial pulses bue. PULM/CHEST: Effort normal and breath sounds normal. No respiratory distress. No stridor. no wheezes. no rales. ABD: The abdomen is soft. There is no tenderness. NEURO: Motor and sensation grossly intact. SKIN: Skin is warm and dry. He is not diaphoretic. PSYCH: normal mood and affect. Behavior is normal. Judgment and thought content normal. Course Course 1558: The patient was evaluated in room C1. A complete history and physical exam was performed Cardiac monitoring: An order was placed for continuous cardiac monitoring. The monitor shows a rate of 70 with sinus rhythm interpreted by me 1710: Vital signs stable. Labs are significant for potassium of 5.2 BUN of 95 creatinine of 4.05. Patient will be admitted to the [facility] service Dr. Carter's team will be notified. Administered Medications Sodium Chloride (Nss) 1,000 mls @ 125 mls/hr IV .Q8H FRANCESCO Stop: 06/20/23 09:59 Last Admin: 06/19/23 18:31 Dose: 125 mls/hr Documented By: [facility] Medical Decision Making Laboratory Data Attestation: I reviewed the patient's lab results. 06/19/23 15:46 06/19/23 15:46 Lab Results 06/19/23 06/19/23 Range/Units 15:46 18:00 WBC 7.52 (4.8-10.8) K/ul RBC 3.87 L (4.20-5.40) M/uL Hgb 11.6 L (12.0-16.0) g/dl Hct 35.5 L (37.0-47.0) % MCV 91.7 (80.0-100.0) fL MCH 30.0 (25.0-34.0) pg MCHC 32.7 (32.0-36.0) g/dL RDW Std Deviation 53.1 H (36.4-46.3) fL RDW Coeff of Pérez 15.8 H (11.5-14.5) % Plt Count 300 (130-400) K/uL MPV 10.9 (9.4-12.4) fL Immature Gran % (Auto) 0.4 % Neut % (Auto) 75.3 % Lymph % (Auto) 16.1 % [place] % (Auto) 6.4 % Eos % (Auto) 1.7 % Baso % (Auto) 0.1 % Neut # (Auto) 5.66 (1.40-6.50) K/uL Lymph # (Auto) 1.21 (1.20-3.40) K/uL [place] # (Auto) 0.48 (0.11-0.59) K/uL Eos # (Auto) 0.13 (0.00-0.50) K/uL Baso # (Auto) 0.01 (0.00-0.20) K/uL Immature Gran # (Auto) 0.03 (0.01-0.20) K/uL Sodium 131 L (136-145) mmol/L Potassium 5.2 H (3.5-5.1) mmol/L Chloride 97 L (98-107) mmol/L Carbon Dioxide 25 (21-32) mmol/L Anion Gap 9 (3-11) BUN 95 H (6-23) mg/dl Creatinine 4.05 H (0.6-1.2) mg/dl Est Cr Clr Drug Dosing Not Reportable Est GFR ( Amer) 12.1 ml/min Est GFR (Non-Af Amer) 10.4 ml/min BUN/Creatinine Ratio 23.5 H (10-20) Glucose 173 H (70-99(Fasting)) mg/dl Calcium 10.3 (8.6-10.3) mg/dl Total Bilirubin 0.8 (0.2-1.0) mg/dl AST 12 L (13-39) U/L ALT 11 (7-52) U/L Alkaline Phosphatase 110 H (34-104) U/L Total Protein 8.2 (6.0-8.3) gm/dl Albumin 4.7 (3.4-5.0) gm/dl Globulin 3.5 (2.5-4.0) gm/dl Albumin/Globulin Ratio 1.3 (0.9-2) Urine Color Yellow Urine Appearance Clear (Clear) Urine pH 5.5 (4.5-7.5) Ur Specific [place] 1.007 (1.000-1.030) Urine Protein Negative (Negative) Urine Glucose (UA) Negative (Negative) Urine Ketones Negative (Negative) Urine Blood Negative (Negative) Urine Nitrite Negative (Negative) Urine Bilirubin Negative (Negative) Urine Urobilinogen Negative (Negative) Ur Leukocyte Esterase 1+ H (Negative) Urine WBC (Auto) 10-30 H (0-5) /hpf Urine RBC (Auto) 0-4 (0-4) /hpf U Hyaline Cast (Auto) 0 (0-5) /lpf U Epithel Cells (Auto) >30 H (0-5) /lpf Urine Bacteria (Auto) Negative (Negative) Urine Osmolality 229 L (500-800) mOsm/kg Ur Random Creatinine 26.9 mg/dl U Random Total Protein 8.1 (0-11.9) mg/dl Ur Random Sodium 48 mmol/L Protein/Creatinin Ratio 0.3 H (0-0.2) Urine Opiates Screen Neg (Neg) Ur Methadone, Qual Neg (Neg) Urine Barbiturates Neg (Neg) Ur Phencyclidine (PCP) Neg (Neg) U Amphetamin/Meth Scrn Neg (Neg) MDMA (Ecstasy) Screen Neg (Neg) U Benzodiazepines Scrn Neg (Neg) Ur Cocaine Metabolite Neg (Neg) U Marijuana (THC) Screen Neg (Neg) Imaging Data Attestation: I personally reviewed and interpreted this imaging study as follows: My Impression: Chest x-ray negative. Airway clear. No pneumothorax. No consolidation. No cardiomegaly or cephalization.. No free air under the diaphragm. No fractures of the skeletal structures. Radiologist's Impression: Chest X-Ray 06/19/23 15:17 XR chest 1V portable HISTORY: 73 years-old Female cP acute chest pain COMPARISON: 12/13/2022 TECHNIQUE: AP view of the chest FINDINGS: Cardiac silhouette is mildly enlarged. No pneumothorax, pleural effusion or pulmonary edema. Mild subsegmental left basilar atelectasis versus scarring. Numerous round radiodensities projected of the left shoulder redemonstrated. Degenerative changes of the shoulders and spine. IMPRESSION: No acute process. ACT 112: Negative or not required by law. The above report was generated using voice recognition software. It may contain grammatical, syntax or spelling errors. Electronically signed by: Mauri Campos M.D. 06/19/2023 4:49 PM ECG Data Attestation: I personally reviewed and interpreted this ECG as follows: Rate (beats per minute): 70 Rhythm: normal sinus Findings: no ST depression, no ST elevation or no prolonged QT Additional Comments: Left ventricular hypertrophy [facility] Narrative 1558: The patient was evaluated in room C1. A complete history and physical exam was performed Cardiac monitoring: An order was placed for continuous cardiac monitoring. The monitor shows a rate of 70 with sinus rhythm interpreted by me 1710: Vital signs stable. Labs are significant for potassium of 5.2 BUN of 95 creatinine of 4.05. Patient will be admitted to the [facility] service Dr. Carter's team will be notified. Impression & Plan DAVONTE (acute kidney injury) Discharge Plan Visit Data Chief Complaint: Referred by Doctor Stated Complaint: DOC TOLD TO COME OVER ED Provider: Eliezer Dixon Discharge Problem: DAVONTE (acute kidney injury) Patient Disposition: Admitted As Inpatient Forms Stand Alone Forms: My [facility] [employer] Prescriptions Prescriptions: No Action furosemide 40 mg tablet 40 mg PO QAM methscopolamine 2.5 mg tablet 2.5 mg PO QAM Rx Instructions: Can take 2.5mg by mouth later in the day if needed fluticasone furoate-vilanterol [Breo Ellipta] 100-25 mcg/dose Blister With Device 1 inh INHALATION QAM diclofenac sodium 1 % Gel 2 g TOPICAL QID PRN (Reason: joint pain) Rx Instructions: Apply to both knees ondansetron 4 mg Tablet,Disintegrating 4 mg PO Q6H PRN (Reason: Nausea) aspirin 81 mg tablet,chewable 81 mg PO QAM atorvastatin 40 mg tablet 40 mg PO HS lisinopril 20 mg tablet 20 mg PO QAM Hold Instructions: To be determined by Primary Care Physician as to when to resume pramipexole 1 mg tablet 1 mg PO HS famotidine 40 mg tablet 40 mg PO QAM metoprolol succinate 25 mg tablet extended release 24 hr See Rx Instructions .ROUTE .COMPLEX Rx Instructions: Take 25mg by mouth in the morning and 12.5mg by mouth at bedtime albuterol sulfate [Proventil HFA] 90 mcg/actuation Hfa Aerosol Inhaler 1 - 2 inh INHALATION QID PRN (Reason: Shortness Of Breath Or Wheezing) fluticasone propionate 50 mcg/actuation spray,suspension 2 spray INTRANASAL BID clonazepam 0.5 mg tablet 0.5 mg PO TID montelukast 10 mg tablet 10 mg PO QAM Premarin 0.625 mg/gram cream 1 applic vaginal HS budesonide 0.5 mg/2 mL suspension for nebulization 0.5 mg inhalation BID doxepin 150 mg capsule 150 mg PO HS insulin aspart U-100 [Novolog FlexPen U-100 Insulin] 100 unit/mL (3 mL) insulin pen 4 unit SUBCUT TID PRN (Reason: sliding scale) Toujeo SoloStar U-300 Insulin 300 unit/mL (1.5 mL) insulin pen 22 unit SUBCUT QAM Ozempic 0.25 mg or 0.5 mg (2 mg/3 mL) pen injector 0.5 mg SUBCUT WK Rx Instructions: Fridays ferrous gluconate [Ferate] 240 mg (27 mg iron) tablet 240 mg PO Q2D pantoprazole 40 mg Tablet,Delayed Release (Dr/Ec) 40 mg PO BID Qty: 60 1RF Referrals Referrals: Chris Asencio DO [Primary Care Provider] -
[2023-06-19] MEDS ORDERED: LANTUS PER UNIT CHARGE SQ SCH (21:59)
[2023-06-19] MEDS ORDERED: CARBOHYDRATES FOR HYPOGLYCEMIA PO PRN (21:59)
[2023-06-19] MEDS ORDERED: DEXTROSE 50% 50 ML SYRINGE IV PRN (21:59)
[2023-06-19] MEDS ORDERED: DICLOFENAC SOD 1% GEL 100 GM TUBE EXT PRN (21:59)
[2023-06-19] MEDS ORDERED: GLUCAGON FOR INJ 1 MG VIAL SQ PRN (21:59)
[2023-06-19] MEDS ORDERED: PROCHLORPERAZINE MALEATE 10 MG TAB PO PRN (21:59)
[2023-06-19] MEDS ORDERED: METOPROLOL SUCC 25MG EXT REL TAB PO SCH (21:59)
[2023-06-19] MEDS ORDERED: GLUCOSE 10 TAB/TUBE PO PRN (21:59)
[2023-06-19] MEDS: BUDESONIDE 0.5 MG/2 ML VIAL (PULMICORT) INH SCH (22:27)
[2023-06-19] MEDS: INSULIN ASPART PER UNIT CHARGE SC SCH (22:39)
[2023-06-19] MEDS: PREMARIN VAG CRM 14 APPLN/30 GM TUBE PV SCH (22:41)
[2023-06-19] MEDS: FLUTICASONE PROPIONATE NA SPR 16 GM BTL NAE SCH (22:41)
[2023-06-19] MEDS: DOXEPIN HCL 75 MG CAPSULE PO SCH (22:42)
[2023-06-19] MEDS: PRAMIPEXOLE DIHYDROCHLO 0.5 MG TAB PO SCH (22:42)
[2023-06-19] MEDS: ATORVASTATIN 40 MG TAB PO SCH (22:42)
[2023-06-19] MEDS: PANTOprazole 40 MG TAB PO SCH (22:42)
[2023-06-19] MEDS: clonazePAM 0.5 MG TAB PO SCH (22:47)
[2023-06-19] MEDS: ACETAMINOPHEN 500 MG TAB PO SCH (22:47)
[2023-06-19] MEDS: HEPARIN SOD 5,000 UNIT/0.5 ML VIAL SQ SCH (22:58)
--- OUTSIDE RECORDS SUMMARY | 2023-06-20 00:27 | External Medical Summary | Summary of Care ---
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 Name Role Phone Chris Asencioanay Primary Care Provider Reason for Visit * Reason Comments Outpatient Testing Encounter Details Date Type Department Care Team (Late st Contact Info) Description 06/18/2023 12:00 PM EST Laboratory Laboratory, [place] [address] [place] [address] [place] [address] [place] [address] [employer] Other*[id number]; Hypertensive kidney disease with stage 3b chronic kidney disease (HCC) Allergies Active Allergy Reactions Criticality Noted Date Comments Pioglitazone Hydrochloride Rash 03/01/2010 Amaryl 01/02/2007 Sulfamethoxazole-Trimeth oprim Other (Please comment) 02/16/2021 Headache reported Bismuth Nausea/vomiting 03/01/2022 Codeine Itching 08/05/2013 Colestipol Hcl 05/05/2015 Rash Prochlorperazine 05/06/2023 "Nervous" Rosuvastatin Itching,Rash 04/16/2016 Diphenhydramine Hcl 09/09/2007 Doxycycline 08/07/1999 hives (per patient) Glyburide 11/04/2006 Rash Hydroxyzine Hcl Neuro complications (Please comment) 06/06/2010 Mental confusion Melatonin Low 10/18/2020 Nervous , anxiety Metformin Hcl Rash 03/01/2010 Nutritional Supplements Other (Please comment) Medium 12/13/2008 Facial swelling, some throat swelling, pt does not use epi pen Other Allergy (See Comments) 06/01/2020 Silicone Shellfish Anaphylaxis High 10/15/2008 Pseudoephedrine 03/01/2010 jitteriness Tramadol Nausea/vomiting 08/15/2010 Hydroxyzine Hcl 08/24/2011 "thousand of lights going off" Ondansetron Other (Please comment) 09/06/2020 Pt requesting zofran be placed on allergy list due to extreme tiredness and fatigue after medication. documented as of this encounter (statuses as of 06/18/2023) Medications Medication Sig Dispensed Refills Start Date End Date Status Spacer/Aero-Holding Chambers DEVIIndications:Moder ate persistent asthma without complication Use with inhaler. 1 Device 0 07/10/2018 Active multivitamin (MVI) Tablet TAKE 1 TABLET BY MOUTH EVERY DAY FOR SUPPLEMENT 1 09/17/2018 Active ONETOUCH DELICA LANCETS FINE MISC Use up to four times a day as directed DX E11.9 400 Each 3 04/16/2019 Active Additional Information Patient not taking.Reported on 05/09/2023 clonazePAM 0.5 MG Oral Tablet Take 1 Tablet by mouth 3 times a day as needed for Anxiety. 0 Active Doxepin HCl 100 MG Oral Capsule (SINEquan) Take 150 mg by mouth at bedtime. 0 08/10/2020 Active Dexcom G6 TransmitterIndication s:Type 2 diabetes mellitus with stage 3a chronic kidney disease, with long-term current use of insulin (HCC) Use as directed. 1 Each 1 10/20/2020 Active Dexcom G6 SensorIndications:Typ e 2 diabetes mellitus with stage 3a chronic kidney disease, with long-term current use of insulin (HCC) Use as directed. 1 Each 5 10/20/2020 Active Dexcom G6 Gold Marker DeviceIndications:Typ e 2 diabetes mellitus with stage 3a chronic kidney disease, with long-term current use of insulin (HCC) Use as directed. 1 Each 1 10/20/2020 Active Systane Complete 0.6 % Ophthalmic Solution (Propylene Glycol) Instill 1 Drop into both eyes in the morning and 1 Drop at noon and 1 Drop in the evening and 1 Drop before bedtime. 0 Active Proventil HFA 108 (90 Base) MCG/ACT Inhalation Aerosol Solution Inhale 1-2 Puffs by mouth 4 times a day as needed for Shortness of Breath or Wheezing. As needed 0 Active Acetaminophen ER 650 MG Oral Tablet Extended Release Take 1 Tablet by mouth every 8 hours as needed. 0 Active EpiPen 2-Ronni 0.3 MG/0.3ML Injection Solution Auto-injectorIndicati ons:Allergy, subsequent encounter For a severe reaction: Place orange end against the outer thigh, press firmly, hold in place for 10 seconds and go to the Emergency room. 2 Each 3 09/06/2022 Active Additional Information Patient not taking.Reported on 05/09/2023 Vitamin C 500 MG Oral Capsule Take 1 Capsule by mouth in the morning and 1 Capsule before bedtime. 0 Active Ferrous Gluconate 240 (27 Fe) MG Oral Tablet (Ferate) Take 1 Tablet by mouth in the morning. 0 Active NovoLOG FlexPen 100 UNIT/ML Subcutaneous Solution Pen-injector (insulin aspart)Indications:No t taking 4 units under the skin with breakfast 0 03/22/2023 Active OneTouch Verio In Vitro Strip (Glucose Blood)Indications:Typ e 2 diabetes mellitus with stage 3b chronic kidney disease, with long-term current use of insulin (HCC) Use up to 3 times a day E11.9 400 Strip 5 04/17/2023 Active Additional Information Patient not taking.Reported on 05/09/2023 OneTouch UltraSoft LancetsIndications:Ty pe 2 diabetes mellitus with stage 3b chronic kidney disease, with long-term current use of insulin (HCC) Use as directed 4 times a day. Use up to four times a day as directed to check blood glucose E 11.9 400 Each 5 04/17/2023 Active Additional Information Patient not taking.Reported on 05/09/2023 Aspirin 81 MG Oral Tablet Chewable (Aspirin Low Dose)Indications:Type 2 diabetes mellitus with diabetic nephropathy, with long-term current use of insulin (HCC) CHEW 1 TABLET BY MOUTH EVERY DAY 90 Tablet 3 05/09/2023 Active Diphenoxylate-Atropin e 2.5-0.025 MG Oral Tablet (Lomotil)Indications: Irritable bowel syndrome with diarrhea Take 2 Tablets by mouth every 6 hours as needed for Diarrhea. 60 Tablet 5 05/09/2023 Active Atorvastatin Calcium 40 MG Oral Tablet (Lipitor)Indications: Dyslipidemia, goal LDL below 70 TAKE 1 TABLET BY MOUTH EVERY DAY IN THE MORNING 90 Tablet 3 05/09/2023 Active BD Pen Needle Mini U/F 31G X 5 MM (Insulin Pen Needle)Indications:Ty pe 2 diabetes mellitus with diabetic nephropathy, with long-term current use of insulin (HCC) USE DIRECTED WITH NOVOLOG 300 Each 1 05/09/2023 Active Fluticasone Furoate-Vilanterol 100-25 MCG/ACT Inhalation Aerosol Powder Breath Activated (BREO ellipta)Indications:M oderate persistent asthma without complication INHALE 1 PUFF BY MOUTH EVERY DAY 180 Each 3 05/09/2023 Active Budesonide 0.5 MG/2ML Inhalation Suspension (Pulmicort)Indication s:Acute respiratory disease due to COVID-19 virus INHALE VIA NEBULIZER 1 VIAL IN THE MORNING AND 1 VIAL BEFORE BEDTIME 360 mL 3 05/09/2023 Active Diclofenac Sodium 1 % External Gel (Voltaren)Indications :Right knee pain, unspecified chronicity PLACE 4 GRAMS TOPICALLY ON THE SKIN TWICE DAILY DIRECTED 300 g 4 05/09/2023 Active Estrogens Conjugated 0.625 MG/GM Vaginal Cream (Premarin)Indications :Vaginal atrophy Administer 0.5 g into the vagina at bedtime. Do this 3 evenings per week 30 g 5 05/09/2023 Active Famotidine 40 MG Oral Tablet (Pepcid)Indications:G astroesophageal reflux disease with esophagitis without hemorrhage Take 1 Tablet by mouth in the morning. 90 Tablet 3 05/09/2023 Active Fluticasone Propionate 50 MCG/ACT Nasal Suspension (Flonase)Indications: LRTI (lower respiratory tract infection),Moderate persistent asthma with acute exacerbation,Acute URI Administer 2 Sprays into each nostril in the morning and 2 Sprays before bedtime. 48 mL 3 05/09/2023 Active Methscopolamine [place] 2.5 MG Oral TabletIndications:Irr itable bowel syndrome with diarrhea TAKE 1 TAB UP TO 3 TIMES DAILY NEEDED FOR ABDOMINAL CRAMPS & DIARRHEA, 270 Tablet 1 05/09/2023 Active Metoprolol Succinate ER 25 MG Oral Tablet Extended Release 24 Hour (toPROL XL)Indications:PVC's (premature ventricular contractions) TAKE 1 TAB BY MOUTH EVERY MORNING AND ONE-HALF TAB AT BEDTIME. 135 Tablet 3 05/09/2023 Active Montelukast Sodium 10 MG Oral Tablet (Singulair)Indication s:Moderate persistent asthma without complication Take 1 Tablet by mouth in the morning. 90 Tablet 3 05/09/2023 Active Ozempic (0.25 or 0.5 MG/DOSE) 2 MG/3ML Solution Pen-injector (Semaglutide(0.25 or 0.5MG/DOS))Indication s:Type 2 diabetes mellitus with stage 3b chronic kidney disease, with long-term current use of insulin (HCC) Inject 0.5 mg under the skin once a week. 9 mL 3 05/09/2023 Active Pantoprazole Sodium 40 MG Oral Tablet Delayed Release (Protonix)Indications :Gastroesophageal reflux disease with esophagitis without hemorrhage Take 1 Tablet by mouth in the morning and 1 Tablet before bedtime. 180 Tablet 3 05/09/2023 Active Pramipexole Dihydrochloride 1 MG Oral Tablet (Mirapex)Indications: Right knee pain, unspecified chronicity Take 1 Tablet by mouth at bedtime. 90 Tablet 3 05/09/2023 Active Toujeo SoloStar 300 UNIT/ML Subcutaneous Solution Pen-injector (Insulin Glargine (1 Unit Dial))Indications:Typ e 2 diabetes mellitus with stage 3a chronic kidney disease, with long-term current use of insulin ([facility]),Type II diabetes mellitus with neurological manifestations (HCC) INJECT UNDER THE SKIN 20 units in am. 9 mL 5 05/09/2023 Active Triamcinolone Acetonide 0.1 % External Cream (Aristocort)Indicatio ns:Rash and nonspecific skin eruption Apply to rash on body nightly as needed 80 g 3 05/09/2023 Active ClassiphixTouch Verio Flex System DeviceIndications:Typ e 2 diabetes mellitus with stage 3b chronic kidney disease, with long-term current use of insulin ([facility]) Use 1 Device as directed every evening. Up to 4 times a day to check blood glucose E11.9 1 Each 0 05/16/2023 Active Hospital, Clinic, or Other Facility Administered Medication Ordered Dose Route Frequency Start Date End Date Status albuterol sulfate (PROVENTIL) (2.5 MG/3ML) 0.083% inhalation solution 2.5 mgIndications:Moderate persistent asthma without complication 2.5 mg NEBULIZER Q4H PRN 08/13/2018 Active documented as of this encounter (statuses as of 06/18/2023) Active Problems Patient Care Coordination No te Formatting of this note migh t be different from the original. Patient's 'Red Flags': 1. N/v/diarrhea 2. Decreased urine output 3. 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 08/22/2021 Unspecified mood (affective) disorder 08/22/2021 Panic disorder 08/22/2021 KARI (generalized anxiety disorder) 10/14/2020 PVC's (premature ventricular contractions) 10/14 PTSD (post-traumatic stress disorder) 10/14/2020 Persistent insomnia 10/05/2020 Type 2 diabetes mellitus wit h stage 3a chronic kidney disease, with long-term current use of insulin 10/04/2020 Overview: Per CKD protocol Last Assessment & Plan: Current Status: "Stable" for patient / At or near baseline Degree of Condition Awareness: Demonstrates very good awareness of condition, disease course, and prognosis "RED FLAG" Diabetic symptoms: none Goal HgbA1c <7 Diabetic Complications Vascular (examples: PVD, PAD, CAD, CVA) Neurologic (example: Peripheral Neuropathy) Renal (example: CKD, Proteinuria, Dialysis) Medication Regimen GLP-1 Agonist (ex: Victoza, Trulicity, Ozempic) Other: toujeo DM Secondary Prevention CLARITA Inhibitor / ARB Moderate-High Intensity Statin Aspirin Routine Podiatry Care Yearly Diabetic Eye Exam Hemoglobin AIC Results: Lab Results Component Value Date/Time HEMOGLOBIN A1C - [facility] 6.0 (H) 01/24/2023 01:57 PM HEMOGLOBIN A1C - [facility] 6.7 (H) 09/06/2022 12:35 PM HEMOGLOBIN A1C - [facility] 6.7 (H) 08/10/2022 11:22 AM HEMOGLOBIN A1C - [facility] 6.7 (H) 05/24/2020 11:20 AM HEMOGLOBIN A1C - [facility] 7.0 (H) 11/13/2019 03:25 PM HEMOGLOBIN A1C - [facility] 7.6 (H) 05/06/2019 11:23 AM Major depressive disorder, recurrent, moderate 0 08/15/2020 Iron metabolism disease 08/15/2020 KATERIN (obstructive sleep apnea) 11/13/2019 Last Assessment & Plan: Reports she does not tolerate BIPAP Medical marijuana use 11/13/2019 Ganglion cyst of volar aspect of left wrist 09/2019 Primary pulmonary hypertension 11/04/2018 Last Assessment & Plan: Continue diuretic Type 2 diabetes mellitus wit h diabetic nephropathy, with long-term current use of insulin 11/04/2018 Moderate persistent asthma without complication 07/10/2018 Last Assessment & Plan: singulair daily breo daily pulmicort nebs BID PFT 2018 Has rescue inhaler uses very seldom Cannot use albuterol nebs d/t hear racing and increased anxiety Restless legs syndrome 07/10/2018 Type II diabetes mellitus with neurological ana festations 06/05/2018 HTN, goal below 130/80 08/01/2015 Overview: Per HTN Protocol #27. Gastroesophageal reflux dise ase with esophagitis without hemorrhage 01/16/2012 Last Assessment & Plan: protonix 40 mg BID Irritable bowel syndrome documented as of this encounter (statuses as of 06/18/2023) Resolved Problems Problem Noted Date Diagnosed Date Resolved Date Type 2 diabetes mellitus wit h stage 3b chronic kidney disease, with long-term current use of insulin 01/07/2023 03/26/2023 Overview: Per CKD protocol Cardiogenic shock 01/03/2023 01/03/2023 Acute respiratory disease du e to COVID-19 virus 09/22/2021 02/15/2022 Chronic kidney disease, stage 3a 10/04/2020 01/10/2023 Overview: Per CKD protocol Unspecified mood (affective) disorder 08/15/2020 10/14/2020 Hypertensive kidney disease with stage 3a chronic kidney disease 04/04/2020 01/10/2023 Overview: Per CKD protocol - HTN + CKD III - conditions have assumed relationship per current coding guidelines. Last Assessment & Plan: Current Status: "Stable" for patient / At or near baseline Degree of Condition Awareness: Demonstrates very good awareness of condition, disease course, and prognosis Current CKD Stage: Stage III "RED FLAG" symptoms: o Swelling of the legs, hands, or feet ("I have to keep my legs elevated all of the time or else they swell", "I can't wear a wedding ring anymore since starting HD because my hands are so swollen") CKD Complications: o CAD o HTN Continues furosemide 40 mg daily Lisinopril remains on hold 2/2 hypotension Type 2 diabetes mellitus wit h stage 3 chronic kidney disease, with long-term current use of insulin 10/27/2019 10/06/2020 Overview: DM2 + CKD III - conditions have assumed relationship per current coding guidelines. Hypertensive kidney disease with chronic kidney disease stage III 10/27/2019 04/07/2020 Overview: HTN + CKD III - conditions have assumed relationship per current coding guidelines. Kidney disease, chronic, sta ge III (GFR 30-59 ml/min) 06/08/2019 11/05/2019 Overview: Per CKD protocol Type 2 diabetes mellitus wit h hemoglobin A1c goal of less than 8.0% 11/04/2018 01/03/2023 Current use of insulin 07/10/201810/14 Body mass index (BMI) of 40. 0 to 44.9 in adult 06/09/2018 10/27/2019 Overview: Per Obesity protocol #1 Duplicate. Primary osteoarthritis of right knee 06/05/2018 11/13/2019 Acute adjustment disorder with anxiety 04/07/2018 10/14/2020 Diabetes mellitus due to und erlying condition with diabetic mononeuropathy 04/07/2018 05/14/2018 Adult BMI 45.0-49.9 kg/sq m 04/07/2018 06/13/2018 Overview: Per Obesity protocol #1 Opioid dependence in remission 04/07/2018 05/14/2018 Body mass index (BMI) of 45. 0 to 49.9 in adult 03/03/2018 05/09/2018 Overview: Per Obesity protocol #1 Morbid obesity with body mas s index of 40.0-44.9 in adult 07/10/2017 09/06/2022 Moderate persistent asthma with exacerbation 8 07/10/2018 Uncontrolled type 2 diabetes mellitus with microalbuminuria, with long-term current use of insulin 07/10/2017 07/10/2018 Asthma exacerbation 10/17/2016 02/03/20 17 MEDICATION USE AGREEMENT 06/04/2014 Overview: Signed 06/04/2014 Pranav Sanchez MD [facility] [place] Spinal pain 06/04/2014 02/02/2017 Type 2 diabetes mellitus wit h hemoglobin A1c goal of 7.0%-8.0% 05/13/2014 10/14/2020 Overview: ICD-10 update of inactive term Spinal pain 05/13/2014 06/04/2014 DM type 2 causing renal disease 06/16/2012 10/14/2020 HTN, GOAL BELOW 140/80 01/14/201208/31 Overview: Per HTN Protocol #27. Acute cystitis 06/12/2010 03/09/2011 OBESITY, BMI 30-34 (SEE ACTUAL BMI) 08/18/2009 01/07/2018 Overview: Per Obesity Taxonomy HTN, GOAL BELOW 130/80 06/22/200901/16 Overview: Per HTN Taxonomy. Dyslipidemia 05/11/2009 08/09/2022 Overview: Per Lipid Taxonomy. Type 2 diabetes mellitus wit h hemoglobin A1c goal of less than 7.0% 03/24/2009 06/16/2012 Overview: Per Diabetes Taxonomy. ICD-10 update of inactive term Type 2 diabetes mellitus wit h hemoglobin A1c goal of less than 7.0% 08/20/2006 03/24/2009 Overview: Per Diabetes Taxonomy. ICD-10 update of inactive term ADVANCE DIRECTIVE INFORMATION 01/08/2006 03/09/2011 Overview: Pt declines booklet. Carpal tunnel syndrome 09/11/200503/09 HTN, goal below 140/90 07/11/200509/06 Overview: Per HTN Taxonomy. OBESITY, UNSPECIFIED 08/13/2004 010 Overview: Per Obesity Taxonomy Venous insufficiency 04/27/2002 021 NEURALGIA-NEURITIS NOS 12/18/200107/24 OTHER SPECIFIED COMPLICATION S OF PROCEDURES NOT ELSEWHERE CLASSIFIED 06/16/2001 07/24/2011 Edema 03/06/2001 07/24/2011 Mixed dyslipidemia 03/06/2001 9 Overview: Per Lipid Taxonomy. Varicose vein of leg 11/21/2000 018 FAMILY HX-BREAST MALIG 03/18/200010/26 FAMILY HX-GI MALIGNANCY 06/08/199706/27 Panic disorder 10/14/2020 CLASSICAL MIGRAINE WITHOU ME NTION OF INTRACTABLE MIGRAINE 09/24/2013 BACKACHE NOS 02/02/2017 Menopause 07/24/2011 Allergic rhinitis 10/27/2019 Overview: Acute. Dysthymic disorder 1 Neuralgia of chest 8 Asthma exacerbation 10/18/19 17 Asthma dependent on inhaled steroids 02/02/2017 documented as of this encounter (statuses as of 06/18/2023) Immunizations Name Administration Dates Next Due COVID-19 mRNA, LNP-s, No Pre serve, 2-Dose Series (Pfizer) 09/09/2020,08/19/2020 Pneumococcal Conjugate Vacc, 13 Valent (Prevnar) 04/03/2018,10/17/2016 Pneumococcal Polysaccharide PPV23 (Pneumovax) 04/04/2019,11/04/2018,12/10/2006 Seasonal Influenza, PF, 6 M & above, IM , (FluLaval or Fluzone) 02/25/2020,02/05/2019,01/29/2018,04/16 Seasonal Influenza, Quadriva lent Hd (Fluzone Hd) 01/24/2023,03/01/2022,03/27/2021 Seasonal Influenza, Quadriva lent, No Preserve, IM 03/04/2020,02/25/2020,04/16/2016 Seasonal Influenza, Split, I IV3, With Preserve, Inj 01/27/2015,02/10/2014,03/12/2013,06/10,02/13/2011,03/01/2010,07/19/2009 ,04/19/2008,03/10/2007,04/12/2006 Seasonal Influenza, Trivalen t, High Dose, No Preserve, IM 02/16/2019,01/29/2018 TD, Preservative Free 04/16/2016 TDAP (age 11 and older)(Adacel) 04/12/2006 Varicella Zoster Vaccine (Adult) 03/12/2013 documented as of this encounter Social History Tobacco Use Types Packs/Day Years Used Date Smoking Tobacco: Never Smokeless Tobacco: Never Comments:Vape THC every nigh t to help with pain to sleep Alcohol Use Standard Drinks/Week Comments No 0 (1 standard drink = 0.6 oz pur e alcohol) PHQ-2 Answer Date Recorded PHQ Adult Total Score 1 10/12/2022 Hunger Vital Sign Answer Date Recorded Within the past 12 months, y ou worried that your food would run out before you got the money to buy more. Never true 10/13/19 23 Within the past 12 months, t he food you bought just didn't last and you didn't have money to get more. Never true 10/12/2022 Sex and Gender Information Value Date Recorded Sex Assigned at Female 02/25/2020 5:15 PM EDT Gender Identity Female 02/25/2020 5:15 PM EDT Sexual Orientation Straight 02/25/2020 5: 15 PM EDT Job Start Date Occupation Industry Not on file Not on file Not on file documented as of this encounter Plan of Treatment Upcoming Encounters Date Type Department Care Team (Late st Contact Info) Description 06/21/2023 1:40 PM EST Office Visit Nephrology, [facility] [address] [place] [address] Eric Day MD [address] [place] [address] 06/28/2023 4:00 PM EST Telemedicine Orthopaedics [facility] [address] [place] [address] Carlos A Cid MD [address] [place] [phone] 08/08/2023 2:00 PM EDT Office Visit Family Practice [facility] [address] [place] [address] Taty Tobar CRNP [address] [place] [address] 08/30/2023 2:00 PM EDT Office Visit Nephrology, Misty Calderon [address] [place] [address] Eric Day MD [address] [place] [address] 09/25/2023 1:00 PM EDT Laboratory Laboratory, [place] [address] [place] [phone] [facility] [address] [place] [address] 10/02/2023 4:00 PM EDT Office Visit [facility]ology[facility] [address] [place] [address] Henok Stauffer MD [address] [place] [address] 10/03/2023 6:20 PM EDT [facility] [place] [address] Chris Asencio, DO [address] [place] [address] 11/07/2023 3:40 PM EDT Office Visit [facility] [address] [facility] [place] [address] Chris Asencio, DO [address] [facility] [place] [address] 02/06/2024 2:00 PM EDT Office Visit [facility] [address] [facility] [place] [address] Taty Tobar CRNP [address] [facility] [place] [address] 02/28/2024 1:30 PM EDT Imaging Radiology [facility] 1st Floor, [place] [address] [facility] [place] [address] 03/05/2024 2:00 PM EDT Office Visit Ophthalmology, [facility] [address] [facility] [place] [address] Ernie Rivers, DO [address] [place] [address] 05/14/2024 1:00 PM EST Office Visit [facility] [address] [facility] [place] [address] Chris Asencio, DO [address] [place] [address] Pending Results Name Type Priority Associated Diagnoses Date /Time MYCODE SUBSEQUENT ADULT Lab Routine MyCode Research Other*[id number] 06/18/2023 12:06 PM EST ANCA REFLEX PANEL Lab Routine Hypertensive kidney disease with stage 3b chronic kidney disease (HCC) 06/18/2023 12:06 PM EST ANTINUCLEAR ANTIBODY (ANU) EIA SCREEN WITH REFLEX AB QUANT Lab Routine Hypertensive kidney disease with stage 3b chronic kidney disease (HCC) 06/18/2023 12:06 PM EST COMPLEMENT C3 Lab Routine Hypertensive kidney disease with stage 3b chronic kidney disease (HCC) 06/18/2023 12:06 PM EST COMPLEMENT C4 Lab Routine Hypertensive kidney disease with stage 3b chronic kidney disease (HCC) 06/18/2023 12:06 PM EST CBC Lab Routine Hypertensive kidney disease with stage 3b chronic kidney disease (HCC) 06/18/2023 12:06 PM EST RENAL FUNCTION PANEL Lab Routine Hypertensive kidney disease with stage 3b chronic kidney disease (HCC) 06/18/2023 12:06 PM EST URINALYSIS WITH MICROSCOPIC EXAM Lab Routine Hypertensive kidney disease with stage 3b chronic kidney disease (HCC) 06/18/2023 12:06 PM EST PROTEIN/ CREATININE RATIO, URINE Lab Routine Hypertensive kidney disease with stage 3b chronic kidney disease (HCC) 06/18/2023 12:06 PM EST MYCODE SST1 Lab Routine MyCode Research Other*[id number] 06/18/2023 12:06 PM EST MYCODE SST2 Lab Routine MyCode Research Other*[id number] 06/18/2023 12:06 PM EST ANCA, IFA Lab Routine Hypertensive kidney disease with stage 3b chronic kidney disease (HCC) 06/18/2023 12:06 PM EST ANTINUCLEAR ANTIBODY (ANU) SCREEN, TRACEY Lab Routine Hypertensive kidney disease with stage 3b chronic kidney disease (HCC) 06/18/2023 12:06 PM EST Scheduled Procedures Name Priority Associated Diagnoses Date/Ti me COLONOSCOPY FLEXIBLE PROXIMA L DIAGNOSTIC Recall Family history of colon cancer Health Maintenance Due Date Last Done Comments Hepatitis B (1 of 3 - Risk 3-dose series) 2012 Zoster Vaccines (2 of 3) 05/07/2013 03/12/2013 Diabetic Foot Exam 05/23/2021 05/23/2020, 1 06/06/2018, 06/05/2018, Additional history exists COVID-19 Vaccine ( season) 2023 09/09/2020, 08/19/2020 Depression Screening 10/13/2023 10/12/2022 HbA1c 10/23/2023 04/24/2023, 12/27, 09/06/2022, Additional history exists GFR 12/05/2023 06/06/2023, 06/2023, 05/06/2023, Additional history exists Albumin/Creatinine Ratio 01/25/2024 023, 09/06/2022, 11/24/2021, Additional history exists Diabetic Eye Exam 02/22/2024 02/21/2023, , 02/21/2023, Additional history exists Mammogram 02/27/2024 02/26/2023, 12/26, 01/02/2022, Additional history exists CKD HGB USE SMARTSET [id number] 05/28/202405/28, 05/28/2023, 05/06/2023, Additional history exists CKD PHOS USE SMARTSET 60232 06/06/202405/27, 05/06/2023, 01/10/2023, Additional history exists COLONOSCOPY-EVERY 5 YRS AGES 18-100 03/17/2026 03/17/2021, 03/17/2021, 12/07/2014, Additional history exists DTaP,Tdap,and Td Vaccines (3 - Td or Tdap) 04/16/2026 04/16/2016, 04/12/2006 Lipid Panel 01/25/2028 01/24/2023, 08/25, 03/01/2022, Additional history exists DXA Scan 08/22/2031 08/21/2022, 10/2019, 01/19/2008 Pneumococcal Vaccine: 65+ Years Completed 04/04/2019, 11/04/2018, 04/03/2018, Additional history exists Influenza Vaccine (FLU shot) Completed , 03/01/2022, 03/27/2021, Additional history exists GARDASIL-HPV IMMUNIZATION SERIES Aged Out No longer eligible based on patient's age to complete this topic MENINGOCOCCAL (MENACTRA/MENVEO) Aged Out No longer eligible based on patient's age to complete this topic documented as of this encounter Medical Devices Not on filedocumented as of this encounter Visit Diagnoses Diagnosis MyCode Research Other*[id number] Hypertensive kidney disease with stage 3b chronic kidney disease (HCC) documented in this encounter Advance Directives Documents on File Type Date Recorded 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 Question Answer Comments Discussion of Advance Directives occurred with: Patient Does the patient have a Living Will? No Does the patient have Health Care Power of Termination Clerk? No Care Teams Splicer Operator Relationship Specialty Start Date End Date Chris Asencio DO [address] [place] [address] PCP - General Family Medicine 01/07/18 documented as of this encounter
--- OUTSIDE RECORDS SUMMARY | 2023-06-20 00:27 | External Medical Summary ---
Author Name Unknown Address Unknown Organization K01:[facility] [address] [place] [address] Laboratory Report Ordering Provider Test Date Status JOSE HAWKJULISA 06/18/2023 12:06:45 Final Observation Date Value Abnormality Reference (Units ) Status C4 06/18/2023 12:06:45 30 10-40 (mg/ dL) Final Performing Location [facility] - [address] [place] [address]
--- OUTSIDE RECORDS SUMMARY | 2023-06-20 00:27 | External Medical Summary ---
Author Name Unknown Address Unknown Organization [id number]:[facility] [place] [address] [place] [address] Laboratory Report Ordering Provider Test Date Status KALEB JJ 06/18/2023 12:06:45 Final Observation Date Value Abnormality Reference (Units ) Status MYCODE SPECIMEN-SST 06/18/2023 12:06:45 Freezing of extracted DNA, whole blood and/or serum. Final Performing Location [facility] - [address] [place] [address]
--- OUTSIDE RECORDS SUMMARY | 2023-06-20 00:27 | External Medical Summary ---
Author Name Unknown Address Unknown Organization K01:[facility] [place] [address] [facility] [address] Laboratory Report Ordering Provider Test Date Status ERIKA HAWK 06/18/2023 12:06:45 Final Observation Date Value Abnormality Reference (Units ) Status Nuclear IgG Ab [Ratio] in Serum by Immunoassay 06/18/2023 12:06:45 Negative Negative Final DNA double strand Ab [Presence] in Serum 06/18/2023 12:06:45 Negative Negative Final DOUBLE STRANDED DNA VALUE - [facility] 06/18/2023 12:06:45 2.4 <20 (IU/mL) Final Extractable nuclear Ab [Presence] in Serum 06/18/2023 12:06:45 Negative Negative Final Nuclear IgG Ab [Ratio] in Serum by Immunoassay 06/18/2023 12:06:45 0.2 <0.7 (Ratio) Final Screening is based on detect ion of the following antibodies: dsDNA, U1-AGILITY INSTRUCTOR (RNP70, A, C), SS-A/Ro, SS-B / La, Briana-1, Scl-70, Centromere B proteins and Sm proteins. In conjunction with clinical findings, this can aid in the diagnosis of systemic lupus erythematosous (SLE), mixed connective tissue disease (MCTD), Sjogren's syndrome, scleroderma and polymyositis/dermatomyositis.
However, a negative result does not rule out systemic rheumatic or other autoimmune disease. If clinically suspected, further evaluation and testing may be necessary. Please consult with Rheumatology Department.
Methodology: Fluorescent Enzyme Immunoassay. Performing Location [facility]ATORY [place] [address] [facility] [address]
--- OUTSIDE RECORDS SUMMARY | 2023-06-20 00:27 | External Medical Summary ---
Author Name Unknown Address Unknown Organization K01:LABORATORY [facility] [place] - [address] [place] [address] Laboratory Report Ordering Provider Test Date Status ERIKA HAWK 06/18/2023 12:06:45 Final Observation Date Value Abnormality Reference (Units ) Status Complement C3c [Mass/volume] in Serum or Plasma 06/18/2023 12:06:45 133 90-180 (mg/dL) Final Performing Location [facility] - [address] [place] [address]
--- OUTSIDE RECORDS SUMMARY | 2023-06-20 00:27 | External Medical Summary ---
Author Name Unknown Address Unknown Organization K01:[facility] [place] [address] [place] [address] Laboratory Report Ordering Provider Test Date Status KALEB JJ 06/18/2023 12:06:45 Final Observation Date Value Abnormality Reference (Units ) Status MYCODE SPECIMEN-SST 06/18/2023 12:06:45 Freezing of extracted DNA, whole blood and/or serum. Final Performing Location [facility] - [address] [place] [address]
--- OUTSIDE RECORDS SUMMARY | 2023-06-20 00:27 | External Medical Summary ---
Author Name Unknown Address Unknown Organization K01:[facility] [place] [address] [place] [address] Laboratory Report Ordering Provider Test Date Status ERIKA HAWK 06/18/2023 12:06:45 Final Observation Date Value Abnormality Reference (Units ) Status Neutrophil cytoplasmic Ab [Presence] in Serum by Immunofluorescence 06/18/2023 12:06:45 Negative Negative Final Neutrophil cytoplasmic Ab [Presence] in Serum by Immunofluorescence 06/18/2023 12:06:45 Negative Negative Final Negative for ANCA. Performing Location LABORATORY [facility] - [address] [place] [address]
--- OUTSIDE RECORDS SUMMARY | 2023-06-20 00:27 | External Medical Summary ---
Author Name Unknown Address Unknown Organization K01:LABORATORY [facility] [place] - [address] [facility] [address] Laboratory Report Ordering Provider Test Date Status ERIKA HAWK 06/18/2023 12:06:45 Final Observation Date Value Abnormality Reference (Units ) Status Color of Urine by Auto 06/18/2023 12:06:45 Light Yellow Colorless, Light Yellow, Yellow, Dark Yellow Final Clarity, Urine 06/18/2023 12:06:45 Clear Clear Final Glucose [Mass/volume] in Urine by Automated test strip 06/18/2023 12:06:45 Negative Negative (mg/dL) Final Bilirubin.total [Presence] in Urine by Automated test strip 06/18/2023 12:06:45 Negative Negative Final Ketones [Mass/volume] in Urine by Automated test strip 06/18/2023 12:06:45 Negative Negative (mg/dL) Final Specific gravity, Urine 06/18/2023 12:06:45 1.013 1.003-1.030 Final Hemoglobin [Presence] in Urine by Automated test strip 06/18/2023 12:06:45 Negative Negative Final pH, Urine 06/18/2023 12:06:45 6.0 5.0-7.5 (Units) Final Protein [Mass/volume] in Urine by Automated test strip 06/18/2023 12:06:45 Negative Negative (mg/dL) Final Urobilinogen [Mass/volume] in Urine by Automated test strip 06/18/2023 12:06:45 Normal Normal (mg/dL) Final Nitrite [Presence] in Urine by Automated test strip 06/18/2023 12:06:45 Negative Negative Final Leukocyte esterase [Presence] in Urine by Automated test strip 06/18/2023 12:06:45 Moderate Abnormal Negative Final RBC, Urine 06/18/2023 12:06:45 0-2 0-2 (/HPF) Final WBC, Urine 06/18/2023 12:06:45 10-19 Abnormal 0-2 (/HPF) Final Bacteria [#/area] in Urine sediment by Microscopy high power field 06/18/2023 12:06:45 51-100 Abnormal 0-25 (/HPF) Final Hyaline casts, Urine 06/18/2023 12:06:45 5-9 Abnormal None (/LPF) Final Performing Location [facility] [place] [address] [facility] [address]
--- OUTSIDE RECORDS SUMMARY | 2023-06-20 00:27 | External Medical Summary ---
Author Name Unknown Address Unknown Organization K01:LABORATORY [facility] [place] - [address] [place] [address] Laboratory Report Ordering Provider Test Date Status ERIKA HAWK 06/18/2023 12:06:45 Final Observation Date Value Abnormality Reference (Units ) Status WBC, Total 06/18/2023 12:06:45 8.48 4.00-10.80 (K/uL) Final RBC 06/18/2023 12:06:45 3.60 3.85-5.15 (M/uL) Final Hemoglobin 06/18/2023 12:06:45 11.1 Below low normal 12.0-15.3 (g/dL) Final HCT 06/18/2023 12:06:45 34.6 Below low normal 36.0-45.2 (%) Final MCV 06/18/2023 12:06:45 96.1 81.5-97.5 (fL) Final MCH 06/18/2023 12:06:45 30.8 27.0-34.0 (pg) Final MCHC 06/18/2023 12:06:45 32.1 32.0-36.0 (g/dL) Final RDW 06/18/2023 12:06:45 15.9 11.5-15.5 (%) Final Platelets 06/18/2023 12:06:45 304 140-400 (K/uL) Final MPV 06/18/2023 12:06:45 11.5 6.6-11.1 (fL) Final Nucleated erythrocytes/100 leukocytes [Ratio] in Blood by Automated count 06/18/2023 12:06:45 0 <=0 (/100 WBCs) Final Performing Location LABORATORY [facility] [place] - [address] [place] [address]
--- OUTSIDE RECORDS SUMMARY | 2023-06-20 00:28 | External Medical Summary | Summary of Care ---
Author Name Unknown Organization [facility] Address [address] [address] Phone [phone] Care Team Providers Care Auto Tire Recapper Name Role Phone Chris Asencio DO Primary Care Provider Reason for Visit * Reason Onset Date Comments FYI 04/15/2023 Encounter Details Date Type Department Care Team (Late st Contact Info) Description 04/15/2023 Telephone Family Practice [facility] [address] [place] [address] Chris Asencio DO [address] [place] [address] FYI Allergies Active Allergy Reactions Criticality Noted Date [...] as of this encounter (statuses as of 06/13/2023) Medications Medication Sig Dispensed Refills Start Date End Date Status Spacer/Aero-Holding Chambers DEVIIndications:Mode rate persistent asthma without complication Use with inhaler. [...] at bedtime. 0 08/10/2020 Active Dexcom G6 TransmitterIndicatio ns:Type 2 diabetes mellitus with stage 3a chronic kidney disease, with long-term current use of insulin (HCC) Use as directed. 1 Each 1 10/20/2020 Active Dexcom G6 SensorIndications:Ty pe 2 diabetes mellitus with stage 3a chronic kidney disease, with long-term current use of insulin (HCC) Use as directed. 1 Each 5 10/20/2020 Active Dexcom G6 Land Sales Agent DeviceIndications:Ty pe 2 diabetes mellitus with stage 3a chronic [...] Active EpiPen 2-Ronni 0.3 MG/0.3ML Injection Solution Auto-injectorIndicat ions:Allergy, subsequent encounter For a severe reaction: Place [...] FlexPen 100 UNIT/ML Subcutaneous Solution Pen-injector (insulin aspart)Indications:N ot taking 4 units under the skin with breakfast 0 03/22/2023 Active Hospital, Clinic, or Other Facility Administered Medication Ordered Dose Route Frequency Start Date End Date Status albuterol sulfate (PROVENTIL) (2.5 MG/3ML) 0.083% inhalation solution 2.5 mgIndications:Moderate persistent asthma without complication 2.5 mg NEBULIZER Q4H PRN 08/13/2018 Active documented as of this encounter (statuses as of 06/13/2023) Active Problems Patient Care Coordination No te [...] daily breo daily pulmicort nebs BID PFT 2019 Has rescue inhaler uses very seldom Cannot [...] as of this encounter (statuses as of 06/13/2023) Resolved Problems Problem Noted Date Diagnosed Date [...] 06/04/2014 Overview: Signed 06/04/2014 Pranav Sanchez MD [facility] [place] Spinal pain 06/04/2014 02/02/2017 Type 2 diabetes [...] as of this encounter (statuses as of 06/13/2023) Immunizations Name Administration Dates Next Due COVID-19 mRNA, LNP-s, No Pre serve, 2-Dose Series (ePod Solar) 09/09/2020,08/19/2020 Pneumococcal Conjugate Vacc, 13 Valent (Prevnar) [...] on file documented as of this encounter Miscellaneous Notes * Telephone Encounter - Екатерина Lizarraga MED ASSIST - 04/17/2023 7:58 AM EST Addressed in another encounter. * Telephone Encounter - Ronn Obando OSA - 04/15/2023 12:04 PM EST Pt called stated the test strips for her new glucometer are not covered by her insurance would likeDr. Asencio to send in a override or a PA to her insurance so they can possibly be covered documented in this encounter Plan of Treatment Upcoming Encounters Date Type Department Care Team (Late st Contact Info) Description 06/21/2023 1:40 PM EST Office Visit [facility] [address] [place] [address] Eric Day MD [address] [place] [address] 06/28/2023 4:00 PM EST Telemedicine Orthopaedics [facility] [address] [place] [address] Carlos A Cid MD [address] [place] [id number] 08/08/2023 2:00 PM EDT Office Visit Family Practice [facility] [address] [place] [address] Taty Tobar CRNP [address] [place] [address] 08/30/2023 2:00 PM EDT Office Visit Nephrology, [facility] [address] [place] [address] Eric Day MD [address] [place] [address] 09/25/2023 1:00 PM EDT Laboratory Laboratory, [place] [address] [place] [phone] [place] [address] [place] [address] 10/02/2023 4:00 PM EDT Office Visit Hematology/Oncology [facility] [address] [place] [address] Henok Stauffer MD [address] [place] [address] 10/03/2023 6:20 PM EDT Office Visit [facility] [address] [facility] [place] [address] Chris Asencio, DO [address] [facility] [place] [address] 11/07/2023 3:40 PM EDT Office Visit [facility] [address] [facility] [address] [place] [address] Chris Asencio, DO [address] [facility] [place] [address] 02/06/2024 2:00 PM EDT Office Visit [facility] [address] [facility] [place] [address] Taty Tobar CRNP [address] [facility] [place] [address] 02/28/2024 1:30 PM EDT Imaging Radiology [facility] [address] [facility] [place] [address] 03/05/2024 2:00 PM EDT Office Visit Ophthalmology, [facility] [address] [facility] [place] [address] Ernie Rivers, DO [address] [facility] [place] [address] 05/14/2024 1:00 PM EST Office Visit [facility] [address] [facility] [place] [address] Chris Asencio DO [address] [facility] [place] [address] Scheduled Procedures Name Priority Associated Diagnoses Date/Ti me COLONOSCOPY FLEXIBLE PROXIMA L DIAGNOSTIC Recall Family history of colon cancer Health Maintenance Due Date Last Done Comments Hepatitis B (1 of 3 - Risk 3-dose series) 2012 Zoster Vaccines (2 of 3) 05/07/2013 03/12/2013 Diabetic Foot Exam 05/23/2021 05/23/2020, 1 06/06/2018, 06/05/2018, Additional history exists COVID-19 Vaccine (3 - season) 2023 09/09/2020, 08/19/2020 Depression Screening 10/13/2023 10/12/2022 HbA1c 10/23/2023 04/24/2023, 12/27, 09/06/2022, Additional history exists GFR 12/05/2023 06/06/2023, 06/2023, 05/06/2023, Additional history exists Albumin/Creatinine Ratio 01/25/2024 023, 09/06/2022, 11/24/2021, Additional history exists Diabetic Eye Exam 02/22/2024 02/21/2023, , 02/21/2023, Additional history exists Mammogram 02/27/2024 02/26/2023, 12/26, 01/02/2022, Additional history exists CKD HGB USE SMARTSET 11011 05/28/202405/28, 05/28/2023, 05/06/2023, Additional history exists CKD PHOS USE SMARTSET 16337 06/06/202405/27, 05/06/2023, 01/10/2023, Additional history exists COLONOSCOPY-EVERY [...] Not on filedocumented as of this encounter Advance Directives Documents on File Type Date Recorded 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 Question Answer Comments Discussion of Advance Directives occurred with: Patient Does the patient have a Living Will? No Does the patient have Health Care Power of Air Director? No Care Teams Auto Tire Recapper Relationship Specialty Start Date End Date Chris Asencio DO [address] [address] PCP - General Family Medicine 01/07/18 documented as of this encounter
--- OUTSIDE RECORDS SUMMARY | 2023-06-20 00:28 | External Medical Summary | Summary of Care ---
Author Name Unknown Organization [facility] Address [address] [place] [address] Phone [phone] Care Team Providers Care Electric Power Machine Operator Name Role Phone Chris Asencio DO Primary Care Provider Reason for Visit * Reason Onset Date Comments Outpatient Testing 06/06/2023 Encounter Details Date Type Department Care Team (Late st Contact Info) Description 06/06/2023 Telephone [facility] [address] [place] [address] Eric Day MD 200 [place] [address] Outpatient Testing Allergies Active Allergy Reactions Criticality Noted Date [...] as of this encounter (statuses as of 06/06/2023) Medications Medication Sig Dispensed Refills Start Date [...] 1 Each 5 10/20/2020 Active Dexcom G6 Veneer Supervisor DeviceIndications:Typ e 2 diabetes mellitus with stage [...] the morning. 90 Tablet 3 05/09/2023 Active Furosemide 40 MG Oral Tablet (Lasix)Indications:Bi lateral lower extremity edema Take 1 Tablet by mouth in the morning and 1 Tablet before bedtime. for fluid accumulation or weight gain. 180 Tablet 11 05/09/2023 Active Fluticasone Propionate 50 MCG/ACT Nasal Suspension (Flonase)Indications: LRTI (lower respiratory tract infection),Moderate persistent asthma with acute exacerbation,Acute URI Administer 2 Sprays into each nostril in the morning and 2 Sprays before bedtime. 48 mL 3 05/09/2023 Active Lisinopril 20 MG Oral Tablet (Prinivil)Indications :HTN, goal below 130/80,Stage 3a chronic kidney disease (HCC) Take 1 Tablet by mouth in the morning. 90 Tablet 3 05/09/2023 Active Methscopolamine [place] 2.5 MG Oral TabletIndications:Irr itable bowel syndrome [...] disease, with long-term current use of insulin ([facility]) Inject 0.5 mg under the skin once [...] disease, with long-term current use of insulin (HCC),Type II diabetes mellitus with neurological manifestations (HCC) INJECT UNDER THE SKIN 20 units in am. 9 mL 5 05/09/2023 Active Triamcinolone Acetonide 0.1 % External Cream (Aristocort)Indicatio ns:Rash and nonspecific skin eruption Apply to rash on body nightly as needed 80 g 3 05/09/2023 Active BatesHook Verio Flex System DeviceIndications: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 [...] as of this encounter (statuses as of 06/06/2023) Active Problems Patient Care Coordination No te [...] as of this encounter (statuses as of 06/06/2023) Resolved Problems Problem Noted Date Diagnosed Date [...] 06/04/2014 Overview: Signed 06/04/2014 Pranav Sanchez MD [facility] [place] Spinal pain 06/04/2014 02/02/2017 Type 2 diabetes [...] 06/16/2001 07/24/2011 Edema 03/06/2001 07/24/2011 Mixed dyslipidemia 03/06/200105/11/200 9 Overview: Per Lipid Taxonomy. Varicose vein of leg 11/21/2000 018 FAMILY HX-BREAST MALIG 03/18/200010/26 FAMILY HX-GI MALIGNANCY 06/08/199706/27 Panic disorder 10/14/2020 CLASSICAL MIGRAINE WITHOU ME NTION OF INTRACTABLE MIGRAINE 09/24/2013 BACKACHE NOS 02/02/2017 Menopause 07/24/2011 Allergic rhinitis 10/27/2019 Overview: Acute. Dysthymic disorder 05/21/202 1 Neuralgia of chest 8 Asthma exacerbation 10/18/19 17 Asthma dependent on inhaled steroids 02/02/2017 documented as of this encounter (statuses as of 06/06/2023) Immunizations Name Administration Dates Next Due COVID-19 [...] encounter Miscellaneous Notes * Telephone Encounter - Domi Mallory RN - 06/06/2023 9:49 AM EST LMAM and message sent via [employer]. * Telephone Encounter - Domi Mallory RN - 06/06/2023 9:45 AM EST ----- Message from Eric Day MD sent at 06/03/2023 2:54 PM EST ----- Regarding: Labs She had labs done through Hematology on May 28. I see her kidney function was lot worse but since I did not order the test it did not come to my inbox. She has history of very severe renal failure in the past. I do want to repeat the renal panel this week. Eric Day MD documented in this encounter Plan of Treatment Upcoming Encounters Date Type Department Care Team (Late st Contact Info) Description 06/07/2023 10:30 AM EST Office Visit Gastroenterology, [facility] [address] [place] [address] Geovanna Bahena CRNP [address] [place] [address] 06/11/2023 1:30 PM EST Office Visit Cardiology, [facility] [address] [place] [address] Sophy Sands PA-C [address] [place] [address] 06/21/2023 1:40 PM EST Office Visit Nephrology, [facility] [address] [employer], [place] [address] Eric Day MD [address] [place] [address] 06/28/2023 4:00 PM EST Telemedicine Orthopaedics [facility] [address] [place] [address] Carlos A Cid MD [address] [place] [phone] 07/05/2023 8:00 AM EST Office Visit Nutrition & Weight Management, [facility] [address] [place] [address] Iris Cerrato PA-C [address] [place] [address] 08/08/2023 2:00 PM EDT Office Visit Family Practice [facility] [address] [place] [address] Taty Tobar CRNP [address] [place] [address] 08/30/2023 2:00 PM EDT Office Visit Nephrology, [facility] [address] [place] [address] Eric Day MD [address] [place] [address] 09/25/2023 1:00 PM EDT Laboratory Laboratory, [address] [phone] [address] [address] 10/02/2023 4:00 PM EDT Office Visit Hematology/Oncology [facility] 200 [facility] [place] [address] Henok Stauffer MD 200 [facility] [place] [address] 10/03/2023 6:20 PM EDT Office [facility] [place] [address] Chris Asencio, [address] [place] [address] 11/07/2023 3:40 PM EDT Office Visit [facility] [place] [address] Chris Asencio, [address] [place] [address] 02/06/2024 2:00 PM EDT Office Visit [facility] 132 [facility] [place] [address] Taty Tobar CRNP [address] [place] [address] 02/28/2024 1:30 PM EDT Imaging [facility] [address] [facility] [place] [address] 03/05/2024 2:00 PM EDT Office Visit Ophthalmology, [facility] [address] [facility] [place] [address] Ernie Rivers, DO [address] [facility] [place] [address] 05/14/2024 1:00 PM EST Office Visit Family Practice [facility] [address] [place] [address] Chris Asencio, [address] [place] [address] Scheduled Orders Name Type Priority Associated Diagnoses Orde r Schedule RENAL FUNCTION PANEL Lab Routine Hypertensive kidney disease with stage 3b chronic kidney disease (HCC) Expected: 06/07/2023 (Approximate), Expires: 06/06/2024 Scheduled Procedures Name Priority Associated Diagnoses Date/Ti [...] 04/24/2023, 12/27, 09/06/2022, Additional history exists GFR 11/26/2023 05/28/2023, 04/26, 01/24/2023, Additional history exists Albumin/Creatinine Ratio 01/25/2024 023, 09/06/2022, 11/24/2021, Additional history exists Diabetic Eye Exam 02/22/2024 02/21/2023, , 02/21/2023, Additional history exists Mammogram 02/27/2024 02/26/2023, 12/26, 01/02/2022, Additional history exists CKD PHOS USE SMARTSET 52533 05/06/202404/26, 01/10/2023, 09/06/2022, Additional history exists CKD HGB USE SMARTSET 42151 05/28/202405/28, 05/28/2023, 05/06/2023, Additional history exists COLONOSCOPY-EVERY 5 YRS AGES [...] as of this encounter Visit Diagnoses Diagnosis Hypertensive kidney disease with stage 3b chronic kidney disease (HCC)- Primary documented in this encounter Advance Directives Documents on File Type Date Recorded 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 Question Answer Comments Discussion of Advance Directives occurred with: Patient Does the patient have a Living Will? No Does the patient have Health Care Power of Driver'S License Examiner? No Care Teams Electric Power Machine Operator Relationship Specialty Start Date End Date Chris Asencio DO [address] [place] [place] [address] PCP - General Family Medicine 01/07/18 documented as of this encounter
--- OUTSIDE RECORDS SUMMARY | 2023-06-20 00:28 | External Medical Summary ---
Author Name Unknown Address Unknown Organization K01:[facility] [place] [address] [place] [address] Laboratory Report Ordering Provider Test Date Status ERIKA HAWK 06/18/2023 12:06:45 Final Normal: <150 mg/ g creatinine
High: 150-500 mg/g creatinine
Very High: >500 mg/g creatinine
Nephrotic: >3000 mg/g creatinine Observation Date Value Abnormality Reference (Units ) Status Protein/Creatinine [Ratio] in Urine 06/18/2023 12:06:45 110 <150 (mg/g ) Final Protein, Urine 06/18/2023 12:06:45 8 (mg/dL) Final Creatinine, Urine 06/18/2023 12:06:45 73 (mg/dL) Final Performing Location [facility] [place] [address] [place] [address]
--- OUTSIDE RECORDS SUMMARY | 2023-06-20 00:28 | External Medical Summary | Summary of Care ---
Author Name Unknown Organization [facility] Address [address] [place] [address] Phone [phone] Care Team Providers Care Sofa Back Upholsterer Name Role Phone Chris Asencioanay Primary Care Provider Reason for Visit * Reason Onset Date Comments Test Results 06/07/2023 Encounter Details Date Type Department Care Team (Late st Contact Info) Description 06/07/2023 Telephone [facility] [address] [place] [address] Eric Day MD 200 [place] [address] Test Results Allergies Active Allergy Reactions Criticality Noted Date [...] as of this encounter (statuses as of 06/07/2023) Medications Medication Sig Dispensed Refills Start Date End Date Status Spacer/Aero-Holding Chambers DEVIIndications:Mode rate persistent asthma without complication Use with inhaler. 1 Device 0 9 Active multivitamin (MVI) Tablet TAKE 1 TABLET BY MOUTH EVERY DAY FOR SUPPLEMENT 1 9 Active ONETOUCH DELICA LANCETS FINE MISC Use up to four times a day as directed DX E11.9 400 Each 3 9 Active Additional Information Patient not taking.Reported on 05/09/2023 clonazePAM 0.5 MG Oral Tablet Take 1 Tablet by mouth 3 times a day as needed for Anxiety. 0 Active Doxepin HCl 100 MG Oral Capsule (SINEquan) Take 150 mg by mouth at bedtime. 0 1 Active Dexcom G6 TransmitterIndicatio ns:Type 2 diabetes mellitus with stage 3a chronic kidney disease, with long-term current use of insulin (HCC) Use as directed. 1 Each 1 1 Active Dexcom G6 SensorIndications:Ty pe 2 diabetes mellitus with stage 3a chronic kidney disease, with long-term current use of insulin (HCC) Use as directed. 1 Each 5 1 Active Dexcom G6 Squaring Shear Operator DeviceIndications:Ty pe 2 diabetes mellitus with stage 3a chronic kidney disease, with long-term current use of insulin (HCC) Use as directed. 1 Each 1 1 Active Systane Complete 0.6 % Ophthalmic Solution [...] to the Emergency room. 2 Each 3 3 Active Additional Information Patient not taking.Reported on [...] units under the skin with breakfast 0 3 Active OneTouch Verio In Vitro Strip (Glucose Blood)Indications:Ty pe 2 diabetes mellitus with stage 3b chronic kidney disease, with long-term current use of insulin (HCC) Use up to 3 times a day E11.9 400 Strip 5 3 Active Additional Information Patient not taking.Reported on 05/09/2023 OneTouch UltraSoft LancetsIndications:T ype 2 diabetes mellitus with stage 3b chronic kidney disease, with long-term current use of insulin (HCC) Use as directed 4 times a day. 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 60 Tablet 5 3 Active Atorvastatin Calcium 40 MG Oral Tablet (Lipitor)Indications :Dyslipidemia, goal LDL below 70 TAKE 1 TABLET BY MOUTH EVERY DAY IN THE MORNING 90 Tablet 3 3 Active BD Pen Needle Mini U/F 31G X 5 MM (Insulin Pen Needle)Indications:T ype 2 diabetes mellitus with diabetic nephropathy, with long-term current use of insulin (HCC) USE DIRECTED WITH NOVOLOG 300 Each 1 3 Active Fluticasone Furoate-Vilanterol 100-25 MCG/ACT Inhalation Aerosol Powder Breath Activated (BREO ellipta)Indications: Moderate persistent asthma without complication INHALE 1 PUFF BY MOUTH EVERY DAY 180 Each 3 3 Active Budesonide 0.5 MG/2ML Inhalation Suspension (Pulmicort)Indicatio ns:Acute respiratory disease due to COVID-19 virus INHALE VIA NEBULIZER 1 VIAL IN THE MORNING AND 1 VIAL BEFORE BEDTIME 360 mL 3 3 Active Diclofenac Sodium 1 % External Gel (Voltaren)Indication s:Right knee pain, unspecified chronicity PLACE 4 GRAMS TOPICALLY ON THE SKIN TWICE DAILY DIRECTED 300 g 4 3 Active Estrogens Conjugated 0.625 MG/GM Vaginal Cream (Premarin)Indication s:Vaginal atrophy Administer 0.5 g into the vagina at bedtime. Do this 3 evenings per week 30 g 5 3 Active Famotidine 40 MG Oral Tablet (Pepcid)Indications: Gastroesophageal reflux disease with esophagitis without hemorrhage Take 1 Tablet by mouth in the morning. 90 Tablet 3 3 Active Fluticasone Propionate 50 MCG/ACT Nasal Suspension (Flonase)Indications :LRTI (lower respiratory tract infection),Moderate persistent asthma with acute exacerbation,Acute URI Administer 2 Sprays into each nostril in the morning and 2 Sprays before bedtime. 48 mL 3 3 Active Methscopolamine [place] 2.5 MG Oral TabletIndications:Ir ritable bowel syndrome with diarrhea TAKE 1 TAB UP TO 3 TIMES DAILY NEEDED FOR ABDOMINAL CRAMPS & DIARRHEA, 270 Tablet 1 3 Active Metoprolol Succinate ER 25 MG Oral Tablet Extended Release 24 Hour (toPROL XL)Indications:PVC's (premature ventricular contractions) TAKE 1 TAB BY MOUTH EVERY MORNING AND ONE-HALF TAB AT BEDTIME. 135 Tablet 3 3 Active Montelukast Sodium 10 MG Oral Tablet (Singulair)Indicatio ns:Moderate persistent asthma without complication Take 1 Tablet by mouth in the morning. 90 Tablet 3 3 Active Ozempic (0.25 or 0.5 MG/DOSE) 2 MG/3ML Solution Pen-injector (Semaglutide(0.25 or 0.5MG/DOS))Indicatio ns:Type 2 diabetes mellitus with stage 3b chronic kidney disease, with long-term current use of insulin ([facility]) Inject 0.5 mg under the skin once a week. 9 mL 3 3 Active Pantoprazole Sodium 40 MG Oral Tablet Delayed Release (Protonix)Indication s:Gastroesophageal reflux disease with esophagitis without hemorrhage Take 1 Tablet by mouth in the morning and 1 Tablet before bedtime. 180 Tablet 3 3 Active Pramipexole Dihydrochloride 1 MG Oral Tablet (Mirapex)Indications :Right knee pain, unspecified chronicity Take 1 Tablet by mouth at bedtime. 90 Tablet 3 3 Active Toujeo SoloStar 300 UNIT/ML Subcutaneous Solution Pen-injector (Insulin Glargine (1 Unit Dial))Indications:Ty pe 2 diabetes mellitus with stage 3a chronic kidney disease, with long-term current use of insulin ([facility]),Type II diabetes mellitus with neurological manifestations ([facility]) INJECT UNDER THE SKIN 20 units in am. 9 mL 5 3 Active Triamcinolone Acetonide 0.1 % External Cream (Aristocort)Indicati ons:Rash and nonspecific skin eruption Apply to rash on body nightly as needed 80 g 3 3 Active OneTouch Verio Flex System DeviceIndications:Ty pe 2 diabetes mellitus with stage 3b chronic kidney disease, with long-term current use of insulin ([facility]) Use 1 Device as directed every evening. Up to 4 times a day to check blood glucose E11.9 1 Each 0 3 Active Furosemide 40 MG Oral Tablet (Lasix)Indications:B ilateral lower extremity edema Take 1 Tablet by mouth in the morning and 1 Tablet before bedtime. for fluid accumulation or weight gain. 180 Tablet 11 3 06/07/19 24 Discontinu ed(Patient preference /discontin uation) Lisinopril 20 MG Oral Tablet (Prinivil)Indication s:HTN, goal below 130/80,Stage 3a chronic kidney disease (HCC) Take 1 Tablet by mouth in the morning. 90 Tablet 3 3 06/07/19 24 Discontinu ed(Patient preference /discontin uation) Hospital, Clinic, or Other Facility Administered Medication Ordered Dose Route Frequency Start Date End Date Status albuterol sulfate (PROVENTIL) (2.5 MG/3ML) 0.083% inhalation solution 2.5 mgIndications:Moderate persistent asthma without complication 2.5 mg NEBULIZER Q4H PRN 08/13/2018 Active documented as of this encounter (statuses as of 06/07/2023) Active Problems Patient Care Coordination No te [...] as of this encounter (statuses as of 06/07/2023) Resolved Problems Problem Noted Date Diagnosed Date [...] 06/04/2014 Overview: Signed 06/04/2014 Pranav Sanchez MD [facility] [place] Spinal pain 06/04/2014 02/02/2017 Type 2 diabetes [...] as of this encounter (statuses as of 06/07/2023) Immunizations Name Administration Dates Next Due COVID-19 [...] Telephone Encounter - Domi Mallory RN - 06/07/2023 3:26 PM EST TE with pt regarding lab results . She repeated all instructions given back to me-Stop Lisinopril and Lasix. She states she had taken some Naproxen. She is aware that she should not take this type ofmedication and she is aware that it is OK to take Tylenol for pain but no NSAIDs. Orders placed andpt is aware to complete these tests on Saturday. She is going to monitor her blood pressure and notify her home nurse. She is aware to increase her water intake. * Telephone Encounter - Domi Mallory RN - 06/07/2023 3:19 PM EST ----- Message from Eric Day MD sent at 06/07/2023 2:57 PM EST ----- Renal function even worse now. Stop lisinopril and stop Lasix Repeat labs on Saturday Do ANCA, ANU, c3 and c4, CBC, renal panel UA, protein to creatinine ratio on Saturday--very important. Tell her to drink more water and make sure not taking any NSAIDs documented in this encounter Plan of Treatment Upcoming Encounters Date Type Department Care Team (Late st Contact Info) Description 06/11/2023 1:30 PM EST Office Visit Cardiology, [facility] [address] [place] [address] Sophy Sands PA-C [address] [place] [address] 06/21/2023 1:40 PM EST Office Visit Nephrology, [facility] [address] [place] [address] Eric Day MD [address] [place] [address] 06/28/2023 4:00 PM EST Telemedicine Orthopaedics [facility] [address] [place] [address] Carlos A Cid MD [address] [place] [phone] 07/05/2023 8:00 AM EST Office Visit Nutrition & Weight Management, [facility] [address] [place] [address] Iris Cerrato PA-C [address] [place] [address] 08/08/2023 2:00 PM EDT Office Visit Family Practice [facility] [address] [place] [address] Taty Tobar CRNP [address] [place] [address] 08/30/2023 2:00 PM EDT Office Visit Nephrology, [facility] [address] [place] [address] Eric Day MD [address] [place] [address] 09/25/2023 1:00 PM EDT Laboratory Laboratory, [place] [address] [place] [facility] [address] [facility] [address] [place] [address] 10/02/2023 4:00 PM EDT Office Visit Hematology/Oncology [facility] 200 [facility] [place] [address] Henok Stauffer MD 200 [facility] [place] [address] 10/03/2023 6:20 PM EDT Office Visit [facility] [address] [place] [address] Chris Asencio, [address] [place] [address] 11/07/2023 3:40 PM EDT Office Visit [facility] [address] [place] [address] Chris Asencio, [address] [place] [address] 02/06/2024 2:00 PM EDT Office Visit [facility] [address] [place] [address] Taty Tobar CRNP [address] [place] [address] 02/28/2024 1:30 PM EDT Imaging Radiology [facility] [address] [place] [address] 03/05/2024 2:00 PM EDT Office Visit Ophthalmology, [facility] [address] [place] [address] Ernie Rivers, DO [address] [place] [address] 05/14/2024 1:00 PM EST Office Visit Family [facility] [address] [place] [address] Chris Asencio, DO [address] [place] [address] Scheduled Orders Name Type Priority Associated Diagnoses Orde r Schedule ANCA REFLEX PANEL Lab Routine Hypertensive kidney disease with stage 3b chronic kidney disease (HCC) Expected: 06/10/2023 (Approximate), Expires: 06/07/2024 ANTINUCLEAR ANTIBODY (ANU) EIA SCREEN WITH REFLEX AB QUANT Lab Routine Hypertensive kidney disease with stage 3b chronic kidney disease (HCC) Expected: 06/10/2023 (Approximate), Expires: 06/07/2024 COMPLEMENT C3 Lab Routine Hypertensive kidney disease with stage 3b chronic kidney disease (HCC) Expected: 06/10/2023 (Approximate), Expires: 06/07/2024 COMPLEMENT C4 Lab Routine Hypertensive kidney disease with stage 3b chronic kidney disease (HCC) Expected: 06/10/2023 (Approximate), Expires: 06/07/2024 CBC Lab Routine Hypertensive kidney disease with stage 3b chronic kidney disease (HCC) Expected: 06/10/2023 (Approximate), Expires: 06/07/2024 RENAL FUNCTION PANEL Lab Routine Hypertensive kidney disease with stage 3b chronic kidney disease (HCC) Expected: 06/10/2023 (Approximate), Expires: 06/07/2024 URINALYSIS WITH MICROSCOPIC EXAM Lab Routine Hypertensive kidney disease with stage 3b chronic kidney disease (HCC) Expected: 06/10/2023 (Approximate), Expires: 06/07/2024 PROTEIN/ CREATININE RATIO, URINE Lab Routine Hypertensive kidney disease with stage 3b chronic kidney disease (HCC) Expected: 06/10/2023 (Approximate), Expires: 06/07/2024 Scheduled Procedures Name Priority Associated Diagnoses Date/Ti me COLONOSCOPY FLEXIBLE PROXIMA L DIAGNOSTIC Recall Family history of colon cancer Health Maintenance Due Date Last Done Comments Hepatitis B (1 of 3 - Risk 3-dose series) 2012 Zoster Vaccines (2 of 3) 05/07/2013 03/12/2013 Diabetic Foot Exam 05/23/2021 05/23/2020, 1 06/06/2018, 06/05/2018, Additional history exists COVID-19 Vaccine (3 - 2022- season) 2023 09/09/2020, 08/19/2020 Depression Screening 10/13/2023 10/12/2022 HbA1c 10/23/2023 04/24/2023, 12/27, 09/06/2022, Additional history exists GFR 12/05/2023 06/06/2023, 06/2023, 05/06/2023, Additional history exists Albumin/Creatinine Ratio 01/25/2024 023, 09/06/2022, 11/24/2021, Additional history exists Diabetic Eye Exam 02/22/2024 02/21/2023, , 02/21/2023, Additional history exists Mammogram 02/27/2024 02/26/2023, 12/26, 01/02/2022, Additional history exists CKD HGB USE SMARTSET 01422 05/28/202405/28, 05/28/2023, 05/06/2023, Additional history exists CKD PHOS USE SMARTSET 31960 06/06/202405/27, 05/06/2023, 01/10/2023, Additional history exists COLONOSCOPY-EVERY [...] Documents on File Type Date Recorded 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 Question Answer Comments Discussion of Advance Directives occurred with: Patient Does the patient have a Living Will? No Does the patient have Health Care Power of Chemical Educator? No Care Teams Sofa Back Upholsterer Relationship Specialty Start Date End Date Chris Asencio DO [address] [place] [address] PCP - General Family Medicine 01/07/18 documented as of this encounter
--- OUTSIDE RECORDS SUMMARY | 2023-06-20 00:28 | External Medical Summary | Summary of Care ---
Author Name Unknown Organization [facility] Address [address] [place] [address] Phone [phone] Care Team Providers Care Strike On Machine Operator Name Role Phone Chris Asencio Primary Care Provider Encounter Details Date Type Department Care Team (Late st Contact Info) Description 06/06/2023 Population Health External Data Unspecified Department Allergies Active Allergy Reactions Criticality Noted Date [...] as of this encounter (statuses as of 06/10/2023) Medications Medication Sig Dispensed Refills Start Date [...] 1 Each 5 10/20/2020 Active Dexcom G6 Procedure Writer DeviceIndications:Typ e 2 diabetes mellitus with stage [...] bedtime. 48 mL 3 05/09/2023 Active Methscopolamine Frederick 2.5 MG Oral TabletIndications:Irr itable bowel syndrome [...] as needed 80 g 3 05/09/2023 Active PLYmediaToGetaround Verio Flex System DeviceIndications:Typ e 2 diabetes mellitus with stage 3b chronic kidney disease, with long-term current use of insulin ([facility]) Use 1 Device as directed [...] as of this encounter (statuses as of 06/10/2023) Active Problems Patient Care Coordination No te [...] as of this encounter (statuses as of 06/10/2023) Resolved Problems Problem Noted Date Diagnosed Date [...] 06/04/2014 Overview: Signed 06/04/2014 Pranav Sanchez MD [facility] [place] Spinal pain 06/04/2014 02/02/2017 Type 2 diabetes [...] as of this encounter (statuses as of 06/10/2023) Immunizations Name Administration Dates Next Due COVID-19 mRNA, LNP-s, No Pre serve, 2-Dose Series ([employer]) 09/09/2020,08/19/2020 Pneumococcal Conjugate Vacc, 13 Valent (Prevnar) [...] 06/11/2023 1:30 PM EST Office Visit Cardiology, [address] [place] [address] Sophy Sands PA-C [address] [place] [address] 06/21/2023 1:40 PM EST Office Visit Nephrology, [facility] [address] [place] [address] Eric Day MD [address] [place] [address] 06/28/2023 4:00 PM EST Telemedicine Orthopaedics [facility] [address] [place] [address] Carlos A Cid MD [address] [place] [phone] 08/08/2023 2:00 PM EDT Office Visit Family Practice [facility] [address] [facility] [place] [address] Taty Tobar CRNP [address] [place] [address] 08/30/2023 2:00 PM EDT Office Visit Nephrology, [facility] [address] [place] [address] Eric Day MD [address] [place], [place] [address] 09/25/2023 1:00 PM EDT Laboratory Laboratory, [place] [address] [place] [phone] [place], [facility] [address] [place] [address] 10/02/2023 4:00 PM EDT Office Visit Hematology/Oncology [facility] [address] [place] [address] Henok Stauffer MD 200 [facility] [address] [place], [place] [address] 10/03/2023 6:20 PM EDT Office Visit [facility] [address] [place] [address] Chris Asencio, DO [address] [place] [address] 11/07/2023 3:40 PM EDT Office Visit [facility] 132 [facility] [place] [address] Chris Asencio, DO 132 [facility] [place] [address] 02/06/2024 2:00 PM EDT Office Visit [facility] 132 [facility] [place] [address] Taty Tobar CRNP 132 [facility] [place] [address] 02/28/2024 1:30 PM EDT Imaging Radiology [facility] 1st Floor, [place] 132 [facility] [place] [address] 03/05/2024 2:00 PM EDT Office Visit Ophthalmology, [facility] 132 [facility] [place] [address] Ernie Rivers, DO [address] [facility] [place] [address] 05/14/2024 1:00 PM EST Office Visit [facility] 132 [facility] [place] [address] Chris Asencio, 132 [facility] [place] [address] Scheduled Procedures Name Priority Associated Diagnoses Date/Ti [...] Additional history exists CKD HGB USE SMARTSET 43603 05/28/202405/28, 05/28/2023, 05/06/2023, Additional history exists CKD PHOS USE SMARTSET 10088 06/06/202405/27, 05/06/2023, 01/10/2023, Additional history exists COLONOSCOPY-EVERY [...] Documents on File Type Date Recorded Patient Sld Educational Aide Expl anation POLST 10/20/2021 [place] OR [facility] FOR LIFE-SUSTAINING TREATMENT Latest Code Status on File Code Status Date Activated Date Inactivated Comments Full Code 03/30/2022 6:40 AM 03/30/2022 2:12 PM This order reflects the patients wishes and were consensually agreed upon. Question Answer Comments Discussion of Advance Directives occurred with: Patient Does the patient have a Living Will? No Does the patient have Health Care Power of Cabin Furnishings Installer? No Care Teams Strike On Machine Operator Relationship Specialty Start Date End Date Chris Asenico DO [address] [place] [address] PCP - General Family Medicine 01/07/18 documented as of this encounter
--- OUTSIDE RECORDS SUMMARY | 2023-06-20 00:28 | External Medical Summary | Summary of Care ---
Author Name Unknown Organization [facility] Address [address] [place] [address] Phone [phone] Care Team Providers Care Room Service Server Name Role Phone Chris Asencioanay Primary Care Provider Reason for Visit * Reason Comments Outpatient Testing Encounter Details Date Type Department Care Team (Late st Contact Info) Description 06/06/2023 11:20 AM EST Laboratory Laboratory, [place] [address] [place] [address] [place], Laboratory [address] [place] [address] Hypertensive kidney disease with stage 3b chronic [...] 1 Each 5 10/20/2020 Active Dexcom G6 Specialty Department Supervisor DeviceIndications:Typ e 2 diabetes mellitus with [...] morning. 90 Tablet 3 05/09/2023 Active Methscopolamine [place] 2.5 MG Oral TabletIndications:Irr itable bowel syndrome [...] of insulin ([facility]),Type II diabetes mellitus with neurological manifestations ([facility]) INJECT UNDER THE SKIN 20 units in am. 9 mL 5 05/09/2023 Active Triamcinolone Acetonide 0.1 % External Cream (Aristocort)Indicatio ns:Rash and nonspecific skin eruption Apply to rash on body nightly as needed 80 g 3 05/09/2023 Active GCommerceio Flex System DeviceIndications:Typ e 2 diabetes mellitus with stage 3b chronic kidney disease, with long-term current use of insulin ([facility]) Use 1 Device as directed every evening. [...] GLP-1 Agonist (ex: Victoza, Trulicity, Ozempic) Other: toufrederick DM Secondary Prevention CLARITA Inhibitor / ARB [...] 06/04/2014 Overview: Signed 06/04/2014 Pranav Sanchez MD [facility] [place] Spinal pain 06/04/2014 02/02/2017 Type 2 diabetes [...] 06/07/2023 10:30 AM EST Office Visit Gastroenterology, [facility] [address] [place] [address] Geovanna Bahena CRNP [address] [place] [address] 06/11/2023 1:30 PM EST Office Visit Cardiology, [facility] 132 [facility] [place] [address] Sophy Sands, LG [facility] [place] [address] 06/21/2023 1:40 PM EST Office Visit Nephrology, [facility] [address] [place] [address] Eric Day MD [address] [place] [address] 06/28/2023 4:00 PM EST Telemedicine Orthopaedics [facility] 132 [facility] [place] [address] Carlos A Cid MD [address] [place] [phone] 07/05/2023 8:00 AM EST Office Visit Nutrition & Weight Management, [facility] [address] [facility] [place], [place] [address] Iris Cerrato PA-C [address] [place], [place] [address] 08/08/2023 2:00 PM EDT Office Visit [facility] 132 [facility] [place] [address] Taty Tobar CRNP [address] [place] [address] 08/30/2023 2:00 PM EDT Office Visit Nephrology, [facility] [address] [place] [address] Eric Day MD 200 [facility] [address] 09/25/2023 1:00 PM EDT Laboratory Laboratory, [address] [phone] [place] [address] [place] [address] 10/02/2023 4:00 PM EDT Office Visit Hematology/Oncology [facility] [address] [place] [address] Henok Stauffer MD [address] [place] [address] 10/03/2023 6:20 PM EDT Office Visit [facility] 132 [facility] [place] [address] Chris Asencio DO [address] [place] [address] 11/07/2023 3:40 PM EDT Office Visit [facility] 132 [facility] [place] [address] Chris Asencio, DO 132 [facility] [place] [address] 02/06/2024 2:00 PM EDT Office Visit [facility] 132 [facility] [place] [address] Taty Tobar CRNP 132 [facility] [place] [address] 02/28/2024 1:30 PM EDT Imaging Radiology [facility] 1st Floor, [place] 132 [facility] [place] [address] 03/05/2024 2:00 PM EDT Office Visit Ophthalmology, [facility] 132 [facility] [place] [address] Ernie Rivers, DO [address] [facility] [place] [address] 05/14/2024 1:00 PM EST Office Visit [facility] 132 [facility] [place] [address] Chris Asencio, 132 [facility] [place] [address] Pending Results Name Type Priority Associated Diagnoses Date /Time RENAL FUNCTION PANEL Lab Routine Hypertensive kidney disease with stage 3b chronic kidney disease (HCC) 06/06/2023 11:28 AM EST Scheduled Procedures Name Priority Associated Diagnoses Date/Ti me COLONOSCOPY FLEXIBLE PROXIMA L DIAGNOSTIC Recall Family history of colon cancer Health Maintenance Due Date Last Done Comments Hepatitis B (1 of 3 - Risk 3-dose series) 2012 Zoster Vaccines (2 of 3) 05/07/2013 03/12/2013 Diabetic Foot Exam 05/23/2021 05/23/2020, 1 06/06/2018, 06/05/2018, Additional history exists COVID-19 Vaccine (3 - 2022-24 season) 2023 09/09/2020, 08/19/2020 Depression Screening 10/13/2023 10/12/2022 HbA1c 10/23/2023 04/24/2023, 12/27, 09/06/2022, Additional history exists GFR 11/26/2023 05/28/2023, 04/26, 01/24/2023, Additional history exists Albumin/Creatinine Ratio 01/25/2024 023, 09/06/2022, 11/24/2021, Additional history exists Diabetic Eye Exam 02/22/2024 02/21/2023, , 02/21/2023, Additional history exists Mammogram 02/27/2024 02/26/2023, 12/26, 01/02/2022, Additional history exists CKD PHOS USE SMARTSET 24712 05/06/202404/26, 01/10/2023, 09/06/2022, Additional history exists CKD HGB USE SMARTSET 61684 05/28/202405/28, 05/28/2023, 05/06/2023, Additional history exists COLONOSCOPY-EVERY [...] Documents on File Type Date Recorded Patient Conference Planning Manager Expl anation POLST 10/20/2021 [place] OR [facility] FOR LIFE-SUSTAINING TREATMENT Latest Code Status on File Code Status Date Activated Date Inactivated Comments Full Code 03/30/2022 6:40 AM 03/30/2022 2:12 PM This order reflects the patients wishes and were consensually agreed upon. Question Answer Comments Discussion of Advance Directives occurred with: Patient Does the patient have a Living Will? No Does the patient have Health Care Power of Civilian Jail Officer? No Care Teams Room Service Server Relationship Specialty Start Date End Date Chris Asencio DO [address] [place] [address] PCP - General Family Medicine 01/07/18 documented as of this encounter
--- OUTSIDE RECORDS SUMMARY | 2023-06-20 00:28 | External Medical Summary | Summary of Care ---
Author Name Unknown Organization [facility] [address] [facility] [address] Phone [phone] Care Team Providers Care Armature Balancer Name Role Phone Asencio Chris Fabiananay Primary Care Provider Encounter Details Date Type Department Care Team (Late st Contact Info) Description 06/11/2023 Orders Only PATIENT PORTAL DO NOT DELETE THIS DEPT USED BY [place] [id number] Allergies Active Allergy Reactions Criticality Noted Date [...] as of this encounter (statuses as of 06/11/2023) Medications Medication Sig Dispensed Refills Start Date [...] 1 Each 5 10/20/2020 Active Dexcom G6 Booster Operator DeviceIndications:Typ e 2 diabetes mellitus with stage [...] bedtime. 48 mL 3 05/09/2023 Active Methscopolamine [place] 2.5 MG Oral TabletIndications:Irr itable bowel syndrome [...] as needed 80 g 3 05/09/2023 Active OneTouch Verio Flex System DeviceIndications:Typ e 2 diabetes mellitus with stage 3b chronic kidney disease, with long-term current use of insulin ([facility]) Use 1 Device as directed every evening. [...] as of this encounter (statuses as of 06/11/2023) Active Problems Patient Care Coordination No te [...] as of this encounter (statuses as of 06/11/2023) Resolved Problems Problem Noted Date Diagnosed Date [...] Pranav Sanchez MD [facility] [place] Spinal pain 06/04/2014 02/02/2017 Type 2 diabetes [...] as of this encounter (statuses as of 06/11/2023) Immunizations Name Administration Dates Next Due COVID-19 mRNA, LNP-s, No Pre serve, 2-Dose Series ([employer]) 09/09/2020,08/19/2020 Pneumococcal Conjugate Vacc, 13 Valent (Prevnar) [...] 06/21/2023 1:40 PM EST Office Visit Nephrology, [facility] [place] [address] [facility], [place] [address] Eric Day MD [address] [place], [place] [address] 06/28/2023 4:00 PM EST Telemedicine Orthopaedics [facility] [address] [facility] [place] [address] Carlos A Cid MD [address] [place] [phone] 08/08/2023 2:00 PM EDT Office Visit [facility] [place] [address] Taty Tobar CRNP [address] [place] [address] 08/30/2023 2:00 PM EDT Office Visit Nephrology, [facility] [address] [place] [address] Eric Day MD [address] [place], [place] [address] 09/25/2023 1:00 PM EDT Laboratory Laboratory, [address] [address] [address] 10/02/2023 4:00 PM EDT Office Visit Hematology/Oncology [facility] [place] [address] [place] [address] Henok Stauffer MD [address] [place] [address] 10/03/2023 6:20 PM EDT Office Visit [facility] [place] [address] Chris Asencio, DO [address] [place] [address] 11/07/2023 3:40 PM EDT Office Visit [facility] [address] [place] [address] Chris Asencio, DO [address] [place] [address] 02/06/2024 2:00 PM EDT Office Visit [facility] [place] [address] Taty Tobar CRNP [address] [place] [address] 02/28/2024 1:30 PM EDT Imaging [facility] [address] [place] [address] 03/05/2024 2:00 PM EDT Office Visit Ophthalmology, [facility] 132 [facility] [place] [address] Ernie Rivers, DO [address] [place] [address] 05/14/2024 1:00 PM EST Office Visit [facility] [address] [place] [address] Chris Asencio, DO [address] [place] [address] Scheduled Procedures Name Priority Associated Diagnoses Date/Ti me COLONOSCOPY FLEXIBLE PROXIMA L DIAGNOSTIC Recall Family history of colon cancer Health Maintenance Due Date Last Done Comments Hepatitis B (1 of 3 - Risk 3-dose series) 2012 Zoster Vaccines (2 of 3) 05/07/2013 03/12/2013 Diabetic Foot Exam 05/23/2021 05/23/2020, 1 06/06/2018, 06/05/2018, Additional history exists COVID-19 Vaccine ( - 2022- season) 2023 09/09/2020, 08/19/2020 Depression Screening 10/13/2023 10/12/2022 HbA1c 10/23/2023 04/24/2023, 12/27, 09/06/2022, Additional history exists GFR 12/05/2023 06/06/2023, 06/2023, 05/06/2023, Additional history exists Albumin/Creatinine Ratio 01/25/2024 023, 09/06/2022, 11/24/2021, Additional history exists Diabetic Eye Exam 02/22/2024 02/21/2023, , 02/21/2023, Additional history exists Mammogram 02/27/2024 02/26/2023, 12/26, 01/02/2022, Additional history exists CKD HGB USE SMARTSET 13418 05/28/202405/28, 05/28/2023, 05/06/2023, Additional history exists CKD PHOS USE SMARTSET 92002 06/06/202405/27, 05/06/2023, 01/10/2023, Additional history exists COLONOSCOPY-EVERY [...] Documents on File Type Date Recorded 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 Question Answer Comments Discussion of Advance Directives occurred with: Patient Does the patient have a Living Will? No Does the patient have Health Care Power of Assembler Caterpillar Spider? No Care Teams Armature Balancer Relationship Specialty Start Date End Date Chris Asencio DO [address] [place] [address] PCP - General Family Medicine 01/07/18 documented as of this encounter
--- OUTSIDE RECORDS SUMMARY | 2023-06-20 00:28 | External Medical Summary ---
Author Name Unknown Address Unknown Organization K01:LABORATORY [facility] - [facility] [address] [place] [address] Laboratory Report Ordering Provider Test Date Status ERIKA HAWK 06/06/2023 11:28:43 Final Observation Date Value Abnormality Reference (Units ) Status BUN 06/06/2023 11:28:43 79 Above high normal 6-20 (mg/dL) Final Creatinine 06/06/2023 11:28:43 3.1 Above high normal 0.5-1.0 (mg/dL) Final Glomerular filtration rate/1.73 sq M.predicted [Volume Rate/Area] in Serum, Plasma or Blood by Creatinine-based formula (CKD-EPI) 06/06/2023 11:28:43 15 Below low normal >=60 (mL/min) Final eGFR is calculated based on the CKD-EPI 2020 equation SODIUM 06/06/2023 11:28:43 136 135-146 (m mol/L) Final Potassium 06/06/2023 11:28:43 4.7 3.5-5.1 (m mol/L) Final Cl 06/06/2023 11:28:43 97 Below low normal 98- 107 (mmol/L) Final CO2 06/06/2023 11:28:43 23 22-32 (mmo l/L) Final Anion gap 06/06/2023 11:28:43 16 Above high normal 7- 15 (mmol/L) Final Glucose 06/06/2023 11:28:43 123 Above high normal 70 -120 (mg/dL) Final Calcium 06/06/2023 11:28:43 9.6 8.4-10.2 ( mg/dL) Final Albumin 06/06/2023 11:28:43 4.4 3.8-5.0 (g /dL) Final Phosphate 06/06/2023 11:28:43 5.1 Above high normal 2. 5-4.8 (mg/dL) Final Performing Location [facility]ATORY [facility] - [address] [facility] [address]
--- OUTSIDE RECORDS SUMMARY | 2023-06-20 00:28 | External Medical Summary ---
Author Name Unknown Address Unknown Organization K01:LABORATORY [facility] - [address] [place] [address] Laboratory Report Ordering Provider Test Date Status ERIKA HAWK 06/18/2023 12:06:45 Final Observation Date Value Abnormality Reference (Units ) Status BUN 06/18/2023 12:06:45 91 Above high normal 6-20 (mg/dL) Final Creatinine 06/18/2023 12:06:45 3.8 Above high normal 0.5-1.0 (mg/dL) Final Glomerular filtration rate/1.73 sq M.predicted [Volume Rate/Area] in Serum, Plasma or Blood by Creatinine-based formula (CKD-EPI) 06/18/2023 12:06:45 12 Below low normal >=60 (mL/min) Final eGFR is calculated based on the CKD-EPI 2020 equation SODIUM 06/18/2023 12:06:45 134 Below low normal 135 -146 (mmol/L) Final Potassium 06/18/2023 12:06:45 6.2 Above high normal 3. 5-5.1 (mmol/L) Final Cl 06/18/2023 12:06:45 96 Below low normal 98- 107 (mmol/L) Final CO2 06/18/2023 12:06:45 25 22-32 (mmo l/L) Final Anion gap 06/18/2023 12:06:45 13 7-15 (mmol /L) Final Glucose 06/18/2023 12:06:45 99 70-120 (mg /dL) Final Calcium 06/18/2023 12:06:45 10.4 Above high normal 8. 4-10.2 (mg/dL) Final Albumin 06/18/2023 12:06:45 4.5 3.8-5.0 (g /dL) Final Phosphate 06/18/2023 12:06:45 5.4 Above high normal 2. 5-4.8 (mg/dL) Final Performing Location [facility] - [address] [facility] [address]
--- OUTSIDE RECORDS SUMMARY | 2023-06-20 00:29 | External Medical Summary | Summary of Care ---
Author Name Unknown Organization [facility] Address [address] [facility] [place] [address] Phone [phone] Care Team Providers Care Ocean Freight Agent Name Role Phone Jessica Asencio DO Primary Care Provider Reason for Visit * Reason Onset Date Comments Medication Refill 05/15/2023 Encounter Details Date Type Department Care Team (Late st Contact Info) Description 05/15/2023 Refill Family Practice [facility] [address] [place] [address] eJssica Asencio DO [address] [place] [address] Type 2 diabetes mellitus with stage 3b chronic kidney disease, with long-term current use of insulin ([facility]) Allergies Active Allergy Reactions Criticality Noted Date [...] as of this encounter (statuses as of 05/16/2023) Medications Medication Sig Dispensed Refills Start Date [...] 1 Each 5 1 Active Dexcom G6 Cutter Out DeviceIndications:Ty pe 2 diabetes mellitus with stage [...] the morning. 90 Tablet 3 3 Active Furosemide 40 MG Oral Tablet (Lasix)Indications:B ilateral lower extremity edema Take 1 Tablet by mouth in the morning and 1 Tablet before bedtime. for fluid accumulation or weight gain. 180 Tablet 11 3 Active Fluticasone Propionate 50 MCG/ACT Nasal Suspension (Flonase)Indications :LRTI (lower respiratory tract infection),Moderate persistent asthma with acute exacerbation,Acute URI Administer 2 Sprays into each nostril in the morning and 2 Sprays before bedtime. 48 mL 3 3 Active Lisinopril 20 MG Oral Tablet (Prinivil)Indication s:HTN, goal below 130/80,Stage 3a chronic kidney disease (HCC) Take 1 Tablet by mouth in the morning. 90 Tablet 3 3 Active Methscopolamine [place] 2.5 MG Oral TabletIndications:Ir ritable bowel syndrome [...] long-term current use of insulin ([facility]) Inject 0.5 mg under the skin once [...] long-term current use of insulin ([facility]),Type II diabetes mellitus with neurological manifestations ([facility]) INJECT UNDER THE SKIN 20 units in am. 9 mL 5 3 Active Triamcinolone Acetonide 0.1 % External Cream (Aristocort)Indicati ons:Rash and nonspecific skin eruption Apply to rash on body nightly as needed 80 g 3 3 Active predniSONE 20 MG Oral Tablet (Deltasone) Take 1 Tablet by mouth in the morning for 5 days. 10 Tablet 0 3 05/18/20 23 Active OneTouch Verio Flex System DeviceIndications:Ty pe 2 diabetes mellitus with stage 3b chronic kidney disease, with long-term current use of insulin (HCC) Use 1 Device as directed every evening. Up to 4 times a day to check blood glucose E11.9 1 Each 0 3 Active OneTouch Verio Flex System DeviceIndications:Ty pe 2 diabetes mellitus with stage 3b chronic kidney disease, with long-term current use of insulin (HCC) Use 1 Device as directed every evening. Up to 4 times a day to check blood glucose E11.9 1 Each 0 3 05/15/20 23 Discontinu ed(Refill) Hospital, Clinic, or Other Facility Administered Medication Ordered Dose Route Frequency Start Date End Date Status albuterol sulfate (PROVENTIL) (2.5 MG/3ML) 0.083% inhalation solution 2.5 mgIndications:Moderate persistent asthma without complication 2.5 mg NEBULIZER Q4H PRN 08/13/2018 Active documented as of this encounter (statuses as of 05/16/2023) Active Problems Patient Care Coordination No te [...] as of this encounter (statuses as of 05/16/2023) Resolved Problems Problem Noted Date Diagnosed Date [...] 06/04/2014 Overview: Signed 06/04/2014 Pranav Sanchez MD [facility] [place] Spinal pain 06/04/2014 02/02/2017 Type 2 diabetes [...] as of this encounter (statuses as of 05/16/2023) Immunizations Name Administration Dates Next Due COVID-19 mRNA, LNP-s, No Pre serve, 2-Dose Series (Captalis) 09/09/2020,08/19/2020 Pneumococcal Conjugate Vacc, 13 Valent (Prevnar) [...] encounter Miscellaneous Notes * Telephone Encounter - Jessica Asencio DO - 05/16/2023 8:57 AM EST Signed Prescriptions: Disp Refills OneTouch Verio Flex System Device 1 Each 0 Sig: Use 1 Device as directed every evening. Up to 4 times a day to check blood glucose E11.9 Authorizing Provider: JESSICA ASENCIO * Telephone Encounter - Madison Jones LPN - 05/16/2023 8:06 AM ESTPending Prescriptions: Disp Refills OneTouch Verio Flex System Device 1 Each 0 Sig: Use 1 Device as directed every evening. Up to 4 times a day to check blood glucose E11.9 * Telephone Encounter - Soni Ortiz OSA - 05/15/2023 1:55 PM EST Did you pend patient's preferred pharmacy and medication before forwarding?yes Pharmacy: [id number] [address] [facility] Pending Prescriptions: Disp Refills ORDISSIMO Flex System Device 1 Each 0 Sig: Use 1 Device as directed every evening. Up to 4 times a day to check blood glucose E11.9 Last Visit: 05/09/2023 (in office), 06/30/2021 (telemedicine) Next Visit: 08/08/2023 If no future appointments scheduled, and last appointment is greater than a year ago, please schedule patient for a follow-up appointment Last date the medication was ordered: 04.17.23 Is this request for a controlled substance?No 90 day refill request Urine Drug Screen:No results found. However, due to the size of the patient record, not all encounters were searched. Please check Results Review for a complete set of results. Patient Phone Numbers Labs: Lab Results Component Value Date/Time CREAT 1.9 (H) 05/06/2023 04:36 PM CREAT 0.95 09/20/2021 12:00 AM CREAT 1.0 05/24/2020 11:20 AM POTASSIUM 4.4 05/06/2023 04:36 PM POTASSIUM 3.8 09/20/2021 12:00 AM POTASSIUM 4.0 05/24/2020 11:20 AM TSH 3.15 12/28/2022 11:49 AM TSH 1.19 05/06/2019 11:23 AM LDLCALC 34 09/06/2022 12:35 PM LDLCALC 78 05/14/2018 12:26 PM LDLDIRECT 51 01/24/2023 01:57 PM LDLDIRECT 61 10/30/2019 03:49 PM LDLDIRECT 71 05/14/2017 01:52 PM ALT 10 01/24/2023 01:57 PM ALT 15 10/30/2019 03:49 PM HGBA1C 6.9 (H) 04/24/2023 11:18 AM HGBA1C 6.2 (A) 09/15/2021 12:00 AM HGBA1C 6.7 (H) 05/24/2020 11:20 AM documented in this encounter Plan of Treatment Upcoming Encounters Date Type Department Care Team (Late st Contact Info) Description 05/17/2023 10:00 AM EST Home Visit [facility] at [facility] [address] [place] [address] Penny Parikh RN [address] [facility] [place] [address] 05/28/2023 11:30 AM EST Laboratory Laboratory, [place] [address] [place] [address] [place] [address] [place] [address] 06/03/2023 2:30 PM EST Office Visit [facility] [address] [place] [address] Henok Stauffer MD [address] [place] [address] 06/07/2023 10:30 AM EST Office Visit Gastroenterology, [facility] [address] [place] [address] Geovanna Bahena CRNP [address] [place] [address] 06/11/2023 1:30 PM EST Office Visit Cardiology, [facility] [address] [place] [address] Sophy Sands PA-C [address] [place] [address] 06/28/2023 4:00 PM EST Telemedicine Orthopaedics [facility] [address] [place] [address] Carlos A Cid MD [address] [place] [phone] 07/05/2023 8:00 AM EST Office Visit Nutrition & Weight Management, [facility] [address] [place] [address] Iris Cerrato PA-C [address] [place] [address] 08/08/2023 2:00 PM EDT Office Visit Family Practice [facility] [place] [address] Taty Tobar CRNP [address] [place] [address] 08/30/2023 2:00 PM EDT Office Visit Nephrology, [facility] [address] [place] [address] Eric Day MD [address] [place] [address] 10/03/2023 6:20 PM EDT Office Visit Family Practice [facility] [address] [place] [address] Jessica Asencio DO [address] [place] [address] 11/07/2023 3:40 PM EDT Office Visit [facility] [address] [facility] [place] [address] Jessica Asencio, DO [address] [facility] [place] [address] 02/06/2024 2:00 PM EDT Office Visit [facility] [address] [facility] [place] [address] Taty Tobar CRNP [address] [facility] [place] [address] 02/28/2024 1:30 PM EDT Imaging Radiology [facility] 1st Floor, [place] [address] [facility] [place] [address] 03/05/2024 2:00 PM EDT Office Visit Ophthalmology, [facility] [address] [facility] [place] [address] Ernie Rivers, DO [address] [facility] [place] [address] 05/14/2024 1:00 PM EST Office Visit [facility] [address] [facility] [place] [address] Jessica Asencio, [address] [facility] [place] [address] Scheduled Procedures Name Priority Associated Diagnoses Date/Ti [...] 04/24/2023, 12/27, 09/06/2022, Additional history exists GFR 11/05/2023 05/06/2023, 12/27, 01/10/2023, Additional history exists Albumin/Creatinine Ratio 01/25/2024 023, 09/06/2022, 11/24/2021, Additional history exists Diabetic Eye Exam 02/22/2024 02/21/2023, , 02/21/2023, Additional history exists Mammogram 02/27/2024 02/26/2023, 12/26, 01/02/2022, Additional history exists CKD HGB USE SMARTSET 69294 05/06/202405/06, 05/06/2023, 01/24/2023, Additional history exists CKD PHOS USE SMARTSET 76012 05/06/202404/26, 01/10/2023, 09/06/2022, Additional history exists COLONOSCOPY-EVERY 5 YRS AGES [...] as of this encounter Visit Diagnoses Diagnosis Type 2 diabetes mellitus with stage 3b chronic kidney disease, with long-term current use of insulin (HCC) documented in this encounter Advance Directives Documents on File Type Date Recorded Patient Trouble Operator Expl anation POLST 10/20/2021 [place] [facility] FOR LIFE-SUSTAINING TREATMENT Latest Code Status on File Code Status Date Activated Date Inactivated Comments Full Code 03/30/2022 6:40 AM 03/30/2022 2:12 PM This order reflects the patients wishes and were consensually agreed upon. Question Answer Comments Discussion of Advance Directives occurred with: Patient Does the patient have a Living Will? No Does the patient have Health Care Power of Demurrage Agent? No Care Teams Ocean Freight Agent Relationship Specialty Start Date End Date Jessica Asencio DO [address] [place] [address] PCP - General Family Medicine 01/07/18 documented as of this encounter
--- OUTSIDE RECORDS SUMMARY | 2023-06-20 00:29 | External Medical Summary ---
Author Name Unknown Address Unknown Organization K01:[facility] [place] [address] [facility] [place] [address] Laboratory Report Ordering Provider Test Date Status RIGO LEE 05/28/2023 11:35:03 Final Observation Date Value Abnormality Reference (Units ) Status SYNC LEUKOCYTES IN BLOOD BY AUTOMATED COUNT 05/28/2023 11:35:03 9.64 4.00-10.80 (K/uL) Final Segs 05/28/2023 11:35:03 75.8 Above high normal 40.0-75.0 (%) Final Lymphs % 05/28/2023 11:35:03 15.7 Below low normal 18.0-42.0 (%) Final Monos 05/28/2023 11:35:03 6.2 1.0-11.0 (%) Final Eosinophils 05/28/2023 11:35:03 1.3 0.0-6.0 (%) Final Basos 05/28/2023 11:35:03 0.4 0.0-2.0 (%) Final Immature Granulocyte, Percent 05/28/2023 11:35:03 0.6 0.0-2.0 (%) Final Absolute Segs 05/28/2023 11:35:03 7.30 1.80-7.70 (K/uL) Final Lymphs, absolute 05/28/2023 11:35:03 1.51 1.00-4.80 (K/ul) Final Monos, Abs 05/28/2023 11:35:03 0.60 0.00-1.10 (K/uL) Final Eos, Abs 05/28/2023 11:35:03 0.13 0.00-0.70 (K/uL) Final Basos, Abs 05/28/2023 11:35:03 0.04 0.00-0.20 (K/uL) Final Immature Granulocytes, Number 05/28/2023 11:35:03 0.06 0.00-0.20 (K/uL) Final Performing Location [facility] [place] [facility] [place] [address]
--- OUTSIDE RECORDS SUMMARY | 2023-06-20 00:29 | External Medical Summary | Summary of Care ---
Author Name Unknown Organization [facility] Address [address] [place] [address] Phone [phone] Care Team Providers Care Mold Chipper Name Role Phone Chris Asencio DO Primary Care Provider Reason for Visit * Reason Comments Outpatient Testing Encounter Details Date Type Department Care Team (Late st Contact Info) Description 05/28/2023 11:30 AM EST Laboratory Laboratory, [place] [address] [place] [address] [place], Laboratory [address] [place] [address] Anemia, unspecified type; Type 2 diabetes mellitus with stage 3a chronic kidney disease, with long-term current use of insulin (HCC) Allergies Active Allergy Reactions Criticality Noted [...] as of this encounter (statuses as of 05/28/2023) Medications Medication Sig Dispensed Refills Start Date [...] 1 Each 5 10/20/2020 Active Dexcom G6 Mechanical Insulator DeviceIndications:Typ e 2 diabetes mellitus with stage [...] morning. 90 Tablet 3 05/09/2023 Active Methscopolamine [place] 2.5 MG Oral TabletIndications:Irr itable bowel syndrome [...] long-term current use of insulin ([facility]) Inject 0.5 mg under the [...] long-term current use of insulin ([facility]),Type II diabetes mellitus with neurological manifestations ([facility]) INJECT UNDER THE SKIN 20 units in am. 9 mL 5 05/09/2023 Active Triamcinolone Acetonide 0.1 % External Cream (Aristocort)Indicatio ns:Rash and nonspecific skin eruption Apply to rash on body nightly as needed 80 g 3 05/09/2023 Active ExhbitToGroupTie Verio Flex System DeviceIndications:Typ e 2 diabetes mellitus with stage 3b chronic kidney disease, with long-term current use of insulin ([facility]) Use 1 Device as directed [...] as of this encounter (statuses as of 05/28/2023) Active Problems Patient Care Coordination No te [...] as of this encounter (statuses as of 05/28/2023) Resolved Problems Problem Noted Date Diagnosed Date [...] 06/04/2014 Overview: Signed 06/04/2014 Pranav Sanchez MD [facility] [place] Spinal pain 06/04/2014 02/02/2017 Type 2 diabetes [...] as of this encounter (statuses as of 05/28/2023) Immunizations Name Administration Dates Next Due COVID-19 [...] Care Team (Late st Contact Info) Description 06/03/2023 2:30 PM EST Office Visit Hematology/[facility] [address] [facility] [place] [address] Henok Stauffer MD [address] [facility] [place] [address] 06/07/2023 10:30 AM EST Office Visit Gastroenterology, [facility] [address] [facility] [place] [address] Geovanna Bahena CRNP [address] [place] [address] 06/11/2023 1:30 PM EST Office Visit Cardiology, [facility] [place] [address] Sophy Sands PA-C [address] [place] [address] 06/28/2023 4:00 PM EST Telemedicine Orthopaedics [facility] [address] [place] [address] Carlos A Cid MD [address] [place] [phone] 07/05/2023 8:00 AM EST Office Visit Nutrition & Weight Management, [facility] [address] [place] [address] Iris Cerraot PA-C [address] [place] [address] 08/08/2023 2:00 PM EDT Office Visit [facility] [address] [place] [address] Taty Tobar CRNP [address] [place] [address] 08/30/2023 2:00 PM EDT Office Visit Nephrology, [facility] [address] [place], [place] [address] Eric Day MD [address] [facility] [place], [place] [address] 10/03/2023 6:20 PM EDT Office Visit [facility] [address] [place] [address] Chris Asencio, DO [address] [place] [address] 11/07/2023 3:40 PM EDT Office Visit [facility] [address] [place] [address] Chris Asencio, DO [address] [place] [address] 02/06/2024 2:00 PM EDT Office Visit [facility] [address] [place] [address] Taty Tobar CRNP [address] [place] [address] 02/28/2024 1:30 PM EDT Imaging Radiology [facility] 1st Floor, [place] [address] [facility] [place] [address] 03/05/2024 2:00 PM EDT Office Visit Ophthalmology, [facility] [address] [facility] [place] [address] Ernie Rivers, DO [facility] [place] [address] 05/14/2024 1:00 PM EST Office Visit Family Practice [facility] [address] [facility] [place] [address] Chris Asencio, DO [address] [place] [address] Pending Results Name Type Priority Associated Diagnoses Date /Time CBC WITH WBC DIFFERENTIAL Lab Routine Anemia, unspecified type 05/28/2023 11:35 AM EST COMPREHENSIVE METABOLIC PANEL Lab Routine Anemia, unspecified type 05/28/2023 11:35 AM EST FERRITIN Lab Routine Anemia, unspecified type 05/28/2023 11:35 AM EST ERYTHROPOIETIN (EPO) Lab Routine Anemia, unspecified type 05/28/2023 11:35 AM EST CBC Lab Routine Anemia, unspecified type 05/28/2023 11:35 AM EST DIFFERENTIAL, AUTOMATED Lab Routine Anemia, unspecified type 05/28/2023 11:35 AM EST Scheduled Procedures Name Priority Associated [...] Additional history exists CKD HGB USE SMARTSET 39467 05/06/202405/06, 05/06/2023, 01/24/2023, Additional history exists CKD PHOS USE SMARTSET 47502 05/06/202404/26, 01/10/2023, 09/06/2022, Additional history exists COLONOSCOPY-EVERY [...] as of this encounter Visit Diagnoses Diagnosis Anemia, unspecified type Type 2 diabetes mellitus with stage 3a chronic kidney disease, with long-term current use of insulin (HCC) documented in this encounter Advance Directives Documents on File Type Date Recorded 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 Question Answer Comments Discussion of Advance Directives occurred with: Patient Does the patient have a Living Will? No Does the patient have Health Care Power of Health Education Director? No Care Teams Mold Chipper Relationship Specialty Start Date End Date Chris Asencio DO [address] [place] [address] PCP - General Family Medicine 01/07/18 documented as of this encounter
--- OUTSIDE RECORDS SUMMARY | 2023-06-20 00:29 | External Medical Summary ---
Author Name Unknown Address Unknown Organization K01:[facility] [place] [facility] [address] [facility] [place] [address] Laboratory Report Ordering Provider Test Date Status RIGO LEE 05/28/2023 11:35:03 Final Observation Date Value Abnormality Reference (Units ) Status BUN 05/28/2023 11:35:03 57 Above high normal 6-20 (mg/dL) Final Creatinine 05/28/2023 11:35:03 2.7 Above high normal 0.5-1.0 (mg/dL) Final Glomerular filtration rate/1.73 sq M.predicted [Volume Rate/Area] in Serum, Plasma or Blood by Creatinine-based formula (CKD-EPI) 05/28/2023 11:35:03 18 Below low normal >=60 (mL/min) Final eGFR is calculated based on the CKD-EPI 2020 equation SODIUM 05/28/2023 11:35:03 134 Below low normal 135 -146 (mmol/L) Final Potassium 05/28/2023 11:35:03 5.1 3.5-5.1 (m mol/L) Final Cl 05/28/2023 11:35:03 95 Below low normal 98- 107 (mmol/L) Final CO2 05/28/2023 11:35:03 26 22-32 (mmo l/L) Final Anion gap 05/28/2023 11:35:03 13 7-15 (mmol /L) Final Glucose 05/28/2023 11:35:03 120 70-120 (mg /dL) Final Albumin 05/28/2023 11:35:03 4.3 3.8-5.0 (g /dL) Final AST (Aspartate aminotransferase) 05/28/2023 11:35:03 15 10-35 (U/L) Fin al Alk Phos 05/28/2023 11:35:03 100 35-130 (U/ L) Final Bilirubin, Total 05/28/2023 11:35:03 0.7 <=1 .2 (mg/dL) Final Calcium 05/28/2023 11:35:03 9.8 8.4-10.2 ( mg/dL) Final Protein 05/28/2023 11:35:03 7.0 6.0-8.3 (g /dL) Final ALT (Alanine aminotransferase) 05/28/2023 11:35:03 20 10-35 (U/L) Spencer galvez Performing Location [facility] [place] - [facility] [address] [address]
--- OUTSIDE RECORDS SUMMARY | 2023-06-20 00:29 | External Medical Summary ---
Author Name Unknown Address Unknown Organization K01:LAB[facility]ATORY [facility] [place] - [address] [place] [address] Laboratory Report Ordering Provider Test Date Status RIGO LEE 05/28/2023 11:35:03 Final Observation Date Value Abnormality Reference (Units ) Status Ferritin 05/28/2023 11:35:03 281 Above high normal 13 -150 (ng/mL) Final Postmenopausal women have hi gher ferritin levels than pre-menopausal women. The above reference interval is based on pre-menopausal women. Performing Location LABORATORY [facility] [place] - [address] [place] [address]
--- OUTSIDE RECORDS SUMMARY | 2023-06-20 00:29 | External Medical Summary | Summary of Care ---
Author Name Unknown Organization [facility] Address [address] [facility] [place] [address] Phone [phone] Care Team Providers Care Supervisor Denture Department Name Role Phone Chris Asencio DO Primary Care Provider Reason for Visit * Reason Onset Date Comments Advice 05/22/2023 Encounter Details Date Type Department Care Team (Late st Contact Info) Description 05/22/2023 Telephone Family Practice [facility] [address] [place] [address] Chris Asencio DO [address] [place] [address] Advice Allergies Active Allergy Reactions Criticality Noted Date [...] as of this encounter (statuses as of 05/23/2023) Medications Medication Sig Dispensed Refills Start Date [...] 1 Each 5 10/20/2020 Active Dexcom G6 Chief Chemist DeviceIndications:Typ e 2 diabetes mellitus with stage [...] morning. 90 Tablet 3 05/09/2023 Active Methscopolamine Chad[place] 2.5 MG Oral TabletIndications:Irr itable bowel syndrome [...] long-term current use of insulin ([facility]) Inject 0.5 mg under the skin [...] (HCC),Type II diabetes mellitus with neurological manifestations ([facility]) INJECT UNDER THE SKIN 20 units in am. 9 mL 5 05/09/2023 Active Triamcinolone Acetonide 0.1 % External Cream (Aristocort)Indicatio ns:Rash and nonspecific skin eruption Apply to rash on body nightly as needed 80 g 3 05/09/2023 Active SERVICEINFINITYio Flex System DeviceIndications:Typ e 2 diabetes mellitus with stage 3b chronic kidney disease, with long-term current use of insulin ([facility]) Use 1 Device as directed every [...] as of this encounter (statuses as of 05/23/2023) Active Problems Patient Care Coordination No te [...] GLP-1 Agonist (ex: Victoza, Trulicity, Ozempic) Other: flory DM Secondary Prevention CLARITA Inhibitor / ARB [...] as of this encounter (statuses as of 05/23/2023) Resolved Problems Problem Noted Date Diagnosed Date [...] 06/04/2014 Overview: Signed 06/04/2014 Pranav Sanchez MD [facility] Pharm[facility] [place] Spinal pain 06/04/2014 02/02/2017 Type 2 diabetes [...] as of this encounter (statuses as of 05/23/2023) Immunizations Name Administration Dates Next Due COVID-19 [...] encounter Miscellaneous Notes * Telephone Encounter - Bridgette Crowell MED ASSIST - 05/23/2023 10:21 AM EST Patient informed. * Telephone Encounter - Chris Asencio DO - 05/22/2023 1:44 PM EST Advise trying OTC lidocaine patches? * Telephone Encounter - Keisha Merino LPN - 05/22/2023 12:47 PM EST Patient is calling. She has a history of kidney failure. She is going to PT twice a week for her shoulder. Doing ultrasound, ice and attenuation unit. It helps while she is there. Taking tylenol only. She was told there is a patch she can put on her shoulder for inflammation. Can't take advil. Ghislaine has voltaren gel. Tried the ones at the drug store. They heat up and she was told that makes the inflammation worse in a joint that is bad. She doesn't know what else she can do. PT is helping, but it hurts if she even has a drink in her left hand. Has to walk with a cane with her right hand. She was told the name of the patches, but she can't remember it. She doesn't want to take anything that would cause her kidneys to be under stress. She is between a rock and a hard place. She takes theTylenol ES release and it does help. Just needs something more to take the edge off. documented in this encounter Plan of Treatment Upcoming Encounters Date Type Department Care Team (Late st Contact Info) Description 05/28/2023 11:30 AM EST Laboratory Laboratory, [place] [address] [place] [facility] [place] [id number] [facility] [address] [place] [facility] [place] [address] 06/03/2023 2:30 PM EST Office Visit Hematology/Oncology [facility] [address] [facility] [place] [address] Henok Stauffer MD [address] [place] [address] 06/07/2023 10:30 AM EST Office Visit Gastroenterology, [facility] [place] [address] Geovanna Bahena CRNP [address] [place] [address] 06/11/2023 1:30 PM EST Office Visit Cardiology, [facility] [address] [facility] [place] [address] Sophy Sands PA-C [address] [place] [address] 06/28/2023 4:00 PM EST Telemedicine Orthopaedics [facility] [address] [place] [address] Carlos A Cid MD [address] [place] [address] 07/05/2023 8:00 AM EST Office Visit Nutrition & Weight Management, [facility] [address] [place] [address] Iris Cerrato PA-C [address] [place] [address] 08/08/2023 2:00 PM EDT Office Visit [facility] [address] [place] [address] Taty Tobar CRNP [address] [place] [address] 08/30/2023 2:00 PM EDT Office Visit Nephrology, [facility] [address] [facility] [place], [place] [address] Eric Day MD [address] [facility] [place], [place] [address] 10/03/2023 6:20 PM EDT Office Visit [facility] [address] [place] [address] Chris Asencio, [address] [place] [address] 11/07/2023 3:40 PM EDT Office Visit [facility] [address] [place] [address] Chris Asencio, [address] [place] [address] 02/06/2024 2:00 PM EDT Office Visit [facility] [address] [place] [address] Taty Tobar CRNP [address] [place] [address] 02/28/2024 1:30 PM EDT Imaging Radiology [facility] 1st Floor, [place] [address] [facility] [place] [address] 03/05/2024 2:00 PM EDT Office Visit Ophthalmology, [facility] [address] [place] [address] Ernie Rivers, DO [address] [facility] [place] [address] 05/14/2024 1:00 PM EST Office Visit Family Practice [facility] [address] [facility] [place] [address] Chris Asencio, [address] [place] [address] Scheduled Procedures Name Priority Associated Diagnoses Date/Ti [...] Additional history exists CKD HGB USE SMARTSET 32200 05/06/202405/06, 05/06/2023, 01/24/2023, Additional history exists CKD PHOS USE SMARTSET 98927 05/06/202404/26, 01/10/2023, 09/06/2022, Additional history exists COLONOSCOPY-EVERY [...] Documents on File Type Date Recorded 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 Question Answer Comments Discussion of Advance Directives occurred with: Patient Does the patient have a Living Will? No Does the patient have Health Care Power of [place]? No Care Teams Supervisor Denture Department Relationship Specialty Start Date End Date Chris Asencio DO [facility] [place] [address] PCP - General Family Medicine 01/07/18 documented as of this encounter
--- OUTSIDE RECORDS SUMMARY | 2023-06-20 00:29 | External Medical Summary | Summary of Care ---
Author Name Unknown Organization [facility] Address [address] [place] [facility] [place] [address] Phone [phone] Care Team Providers Care Search Engine Optimization Specialist Name Role Phone Chris Asencio DO Primary Care Provider Reason for Visit * Reason Onset Date Comments No Show 05/17/2023 Encounter Details Date Type Department Care Team (Late st Contact Info) Description 05/17/2023 10:00 AM EST [facility] [place] [address] Penny Parikh, RN [facility] [place] [address] NO SHOW/FAILED TO KEEP APPOINTMENT* Allergies Active Allergy Reactions Criticality Noted Date [...] as of this encounter (statuses as of 05/17/2023) Medications Medication Sig Dispensed Refills Start Date [...] 1 Each 5 10/20/2020 Active Dexcom G6 Truck Sales Representative DeviceIndications:Typ e 2 diabetes mellitus with stage [...] morning. 90 Tablet 3 05/09/2023 Active Methscopolamine [place] 2.5 MG Oral TabletIndications:Irr itable bowel syndrome [...] disease, with long-term current use of insulin ([facility]) Inject 0.5 mg under the skin [...] as needed 80 g 3 05/09/2023 Active predniSONE 20 MG Oral Tablet (Deltasone) Take 1 Tablet by mouth in the morning for 5 days. 10 Tablet 0 05/13/2023 Active [email or web address] System DeviceIndications:Typ e 2 diabetes mellitus with [...] as of this encounter (statuses as of 05/17/2023) Active Problems Patient Care Coordination No te [...] as of this encounter (statuses as of 05/17/2023) Resolved Problems Problem Noted Date Diagnosed Date [...] Overview: Signed 06/04/2014 Pranav Sanchez MD [facility] Pharm[facility] [place] Spinal pain 06/04/2014 02/02/2017 Type 2 diabetes [...] as of this encounter (statuses as of 05/17/2023) Immunizations Name Administration Dates Next Due COVID-19 [...] on file documented as of this encounter Progress Notes * Penny Parikh RN - 05/17/2023 9:38 AM EST Patient failed to keep scheduled appointment. Penny Parikh RN documented in this encounter Plan of Treatment Upcoming Encounters Date Type Department Care Team (Late st Contact Info) Description 05/28/2023 11:30 AM EST Laboratory Laboratory, [address] [address] [place] [address] [place] [address] 06/03/2023 2:30 PM EST Office Visit Hematology/Oncology [facility] [address] [place] [address] Henok Stauffer MD [address] [facility] [place] [address] 06/07/2023 10:30 AM EST Office Visit Gastroenterology, [facility] [address] [place] [address] Geovanna Bahena CRNP [address] [place] [address] 06/11/2023 1:30 PM EST Office Visit Cardiology, [facility] [address] [place] [address] Sophy Sands PALillyC [address] [place] [address] 06/28/2023 4:00 PM EST Telemedicine Orthopaedics [facility] [address] [place] [address] Carlos A Cid MD [address] [place] [address] 07/05/2023 8:00 AM EST Office Visit Nutrition & Weight Management, [facility] [address] [place] [address] Iris Cerrato PA-C [address] [place] [address] 08/08/2023 2:00 PM EDT Office Visit Family Practice [facility] [address] [place] [address] Taty Tobar CRNP [address] [place] [address] 08/30/2023 2:00 PM EDT Office Visit Nephrology, [facility] [address] [place] [address] Eric Day MD [address] [place] [address] 10/03/2023 6:20 PM EDT Office Visit Family Practice [facility] [address] [place] [address] Chris Asencio DO [address] [place] [address] 11/07/2023 3:40 PM EDT Office Visit [facility] [address] [place] [address] Chris Asencio, DO [address] [place] [address] 02/06/2024 2:00 PM EDT Office Visit [facility] [place] [address] Taty Tobar CRNP [address] [place] [address] 02/28/2024 1:30 PM EDT Imaging Radiology [facility] 1st Floor, [place] [address] [facility] [place] [address] 03/05/2024 2:00 PM EDT Office Visit Ophthalmology, [facility] [address] [facility] [place] [address] Ernie Rivers, DO [address] [facility] [place] [address] 05/14/2024 1:00 PM EST Office Visit [facility] [address] [facility] [place] [address] Chris Asencio, DO [address] 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 Question Answer Comments Discussion of Advance Directives occurred with: Patient Does the patient have a Living Will? No Does the patient have Health Care Power of Lens Blank Gauger? No Care Teams Search Engine Optimization Specialist Relationship Specialty Start Date End Date Chris Asencio DO [address] [place] [address] PCP - General Family Medicine 01/07/18 documented as of this encounter
--- OUTSIDE RECORDS SUMMARY | 2023-06-20 00:29 | External Medical Summary | Summary of Care ---
Author Name Unknown Organization [facility] Address [address] [place] [facility] [place] [place] [address] Phone [phone] Care Team Providers Care Clinical Professor Name Role Phone Chris Asencio DO Primary Care Provider Reason for Visit * Reason Onset Date Comments [facility]: Maintenance 06/03/2023 Encounter Details Date Type Department Care Team ([facility] st Contact Info) Description 06/03/2023 Telephone [facility], [facility] [address] [place] [address] [facility], Nurse [facility] [address] [place] [address] [facility]: Maintenance Allergies Active Allergy Reactions Criticality Noted Date [...] as of this encounter (statuses as of 06/03/2023) Medications Medication Sig Dispensed Refills Start Date [...] 1 Each 5 10/20/2020 Active Dexcom G6 Campus Recruiting Intern DeviceIndications:Typ e 2 diabetes mellitus with stage [...] morning. 90 Tablet 3 05/09/2023 Active Methscopolamine [place] 2.5 MG Oral TabletIndications:Irr itable bowel syndrome [...] long-term current use of insulin ([facility]) Inject 0.5 mg under the [...] long-term current use of insulin ([facility]),Type II diabetes mellitus with neurological manifestations ([facility]) INJECT UNDER THE SKIN 20 units in am. 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, with long-term current use of insulin ([facility]) Use 1 Device as directed [...] as of this encounter (statuses as of 06/03/2023) Active Problems Patient Care Coordination No te [...] as of this encounter (statuses as of 06/03/2023) Resolved Problems Problem Noted Date Diagnosed Date [...] 06/04/2014 Overview: Signed 06/04/2014 Pranav Sanchez MD [facility] [place] Spinal pain 06/04/2014 02/02/2017 Type 2 diabetes [...] as of this encounter (statuses as of 06/03/2023) Immunizations Name Administration Dates Next Due COVID-19 [...] encounter Miscellaneous Notes * Telephone Encounter - Evon Martin RN - 06/03/2023 3:11 PM EST Patient calling. She had an appointment today with hem/onc. She said her iron levels are better. Blood work showed worsening Kidney function and she has an appt with nephrology on 07/04/23. She said she wants her appt moved up. Chart reviewed and appt with Nephrology 07/04/23 was canceled and rescheduled to 08/30/23. She said it should not of been canceled. I told her I am unable to tell her why it as canceled and she would have to call his office to reschedule. I provided her his number. Attempted ot do direct transfer but it did not go through. She will call. Routed to care team\\\\Evon Martin. RN [facility] RN [phone]' documented in this encounter Plan of Treatment Upcoming Encounters Date Type Department Care Team (Late st Contact Info) Description 06/07/2023 10:30 AM EST Office Visit Gastroenterology, [facility] [address] [place] [address] Geovanna Bahena CRNP [address] [place] [address] 06/11/2023 1:30 PM EST Office Visit Cardiology, [facility] [address] [place] [address] Sophy Sands PA-C [address] [place] [address] 06/21/2023 1:40 PM EST Office Visit Nephrology, [facility] [address] [place] [address] Eric Day MD [address] [place] [address] 06/28/2023 4:00 PM EST Telemedicine Orthopaedics [facility] [address] [place] [address] Carlos A Cid MD [address] [place] [address] 07/05/2023 8:00 AM EST Office Visit Nutrition & Weight Management, [facility] [address] [place] [address] Iris Cerrato PA-C [address] [place] [address] 08/08/2023 2:00 PM EDT Office Visit Family Practice [facility] [address] [place] [address] Taty Tobar CRNP [address] [place] [address] 08/30/2023 2:00 PM EDT Office Visit Nephrology, [facility] [address] [place] [address] Eric Day MD [address] [place] [address] 09/25/2023 1:00 PM EDT Laboratory Laboratory, [address] [place] [address] [facility] [address] [facility] [address] 10/02/2023 4:00 PM EDT Office Visit Hematology/Oncology [facility] [address] [place] [address] Henok Stauffer MD [address] [place] [address] 10/03/2023 6:20 PM EDT Office Visit [facility] [address] [place] [address] Chris Asencio, [address] [place] [address] 11/07/2023 3:40 PM EDT Office Visit [facility] [address] [place] [address] Chris Asencio DO [address] [place] [address] 02/06/2024 2:00 PM EDT Office Visit [facility] [address] [place] [address] Taty Tobar CRNP [address] [place] [address] 02/28/2024 1:30 PM EDT Imaging [facility] [address] [place] [address] 03/05/2024 2:00 PM EDT Office Visit Ophthalmology, [facility] [address] [place] [address] Ernie Rivers, DO [address] [facility] [place] [address] 05/14/2024 1:00 PM EST Office Visit Family Practice [facility] [address] [place] [address] Chris Asencio, [address] [address] Scheduled Procedures Name Priority Associated Diagnoses Date/Ti [...] Additional history exists CKD PHOS USE SMARTSET 05421 05/06/202404/26, 01/10/2023, 09/06/2022, Additional history exists CKD HGB USE SMARTSET 31114 05/28/202405/28, 05/28/2023, 05/06/2023, Additional history exists COLONOSCOPY-EVERY 5 YRS AGES 18-100 03/17/2026 03/17/2021, 03/17/2021, 12/07/2014, Additional history exists DTaP,Tdap,and Td Vaccines (3 - Td or Tdap) 04/16/2026 04/16/2016, 04/12/2006 Lipid Panel 01/25/2028 01/24/2023, 04/1 07/2022, 03/01/2022, Additional history exists DXA Scan 08/22/2031 [...] Documents on File Type Date Recorded 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 Question Answer Comments Discussion of Advance Directives occurred with: Patient Does the patient have a Living Will? No Does the patient have Health Care Power of Complaint Coordinator? No Care Teams Clinical Professor Relationship Specialty Start Date End Date Chris Asencio DO [address] [place] [address] PCP - General Family Medicine 01/07/18 documented as of this encounter
--- OUTSIDE RECORDS SUMMARY | 2023-06-20 00:29 | External Medical Summary | Summary of Care ---
Author Name Unknown Organization [facility] Address [address] [place] [address] Phone [phone] Care Team Providers Care Rug Repairer Name Role Phone Chris Asencio DO Primary Care Provider Reason for Visit * Reason Comments Follow Up 4m Encounter Details Date Type Department Care Team (Late st Contact Info) Description 06/03/2023 2:30 PM EST Office Visit Hematology/Oncology Misty Calderon [place] [address] [facility] [place] [address] Henok Stauffer MD [address] [facility] [place] [address] Anemia, chronic disease* Allergies Active Allergy Reactions Criticality Noted Date [...] 1 Each 5 10/20/2020 Active Dexcom G6 Cannon Pinion Adjuster DeviceIndications:Typ e 2 diabetes mellitus with stage [...] morning. 90 Tablet 3 05/09/2023 Active Methscopolamine [place] 2.5 MG Oral TabletIndications:Irr itable bowel syndrome [...] disease, with long-term current use of insulin ([facility]) Inject 0.5 mg under the skin once [...] disease, with long-term current use of insulin ([facility]),Type II diabetes mellitus with neurological manifestations ([facility]) INJECT UNDER THE SKIN 20 units in am. 9 mL 5 05/09/2023 Active Triamcinolone Acetonide 0.1 % External Cream (Aristocort)Indicatio ns:Rash and nonspecific skin eruption Apply to rash on body nightly as needed 80 g 3 05/09/2023 Active Proxioio Flex System DeviceIndications:Typ e 2 diabetes mellitus with stage 3b chronic kidney disease, with long-term current use of insulin ([facility]) Use 1 Device as directed every evening. [...] 06/04/2014 Overview: Signed 06/04/2014 Pranav Sanchez MD [facility] [place] Spinal pain 06/04/2014 02/02/2017 Type 2 diabetes [...] Date Smoking Tobacco: Never Smokeless Tobacco: Never Tobacco Cessation:Counseling Given: Not Answered Comments:Vape THC every night to help with pain to sleep Alcohol [...] on file documented as of this encounter Last Filed Vital Signs Vital Sign Reading Time Taken Comments Blood Pressure 138/81 06/03/2023 2:09 PM EST Pulse 66 06/03/2023 2:09 PM EST Temperature 36.7 C (98.1 F) 06/03/2023 2:09 PM ES T Respiratory Rate 16 06/03/2023 2:09 PM EST Oxygen Saturation 95% 06/03/2023 2:09 PM EST Inhaled Oxygen Concentration - - Weight 111.6 kg (246 lb) 06/03/2023 2:09 PM EST Height - - Body Mass Index 36.33 10/12/2022 2:18 PM EDT documented in this encounter Progress Notes * Henok Stauffer MD - 06/03/2023 2:35 PM EST Outpatient Consult Note Data Source: Patient, Epic record. Data Source: Patient, Epic record. 06/03/2023 2:35 PM Liane Alejandre [id number] 73 year old Patient Encounter: HEMATOLOGY/ONCOLOGY [facility] Cancer Diagnosis: Iron deficiency anemia? Current Treatment: Previous Treatment: Oncologic History : 73-year-old female with complicated past medical history including diabetes, on long-term insulin, iron metabolism disease, diabetic retinopathy, hyperlipidemia, moderate persistent asthma, obstructive sleep apnea does not tolerate BiPAP nocturnal oxygen 3 to 4 L, hypertension, pulmonary hypertension, PVCs, irritable bowel syndrome, GERD, chronic kidney disease stage III, restless leg syndrome, depression, KARI, PTSD, , history of COVID referred with the above diagnosis. She was admitted in [facility] November 2022 and was discharged December 22. Admission was for sepsis, respiratory failure and acute renal failure with a peak creatinine of 13.3 BUN of 174 and a potassium of 6.6. On the day of discharge creatinine was down to 1.3. She had upper endoscopy done on 12/17/2022 which showed esophageal plaques and diffuse gastritis. Biopsy was positive for Harriet esophagitis with negative for dysplasia or malignancy. Biopsy from the stomach and duodenal were negative. Last colonoscopy was done on 03/17/2021 which showed diverticulosis in the sigmoid colon and biopsywas negative for malignancy or any other abnormality. Recent blood test were done on 01/24/2023 which shows WBC count of 5.07, hemoglobin 10.8 and platelet count 250. Creatinine was 1.2 and the rest of the electrolytes and LFTs are within acceptable range. She had anemia workup done including vitamin B12, folic acid and TSH all within normal limit. Reticulocyte count was normal. Iron screen revealed normal iron level, iron binding capacity and transferrin saturation and ferritin level was 419. She is complaining generalized weakness and fatigue. Denies any blurred vision, chest pain, headache, palpitation, abdominal pain, nausea, vomiting, fever, night sweats. Her appetite is improving. She denies smoking or drinking. Family history significant for father was diagnosed of lung cancer and he was smoker. Sister was diagnosed of colon cancer. Maternal grandmother was diagnosed of cancer involving the spine and grandfather was diagnosed of testicular cancer. One niece was diagnosed of labial cancer. Interval History: Overall clinically she is stable without any new symptoms complain. Denies any dizziness, blurred vision, chest pain, palpitation abdominal pain or distention, nausea vomiting, fever, night sweats, bleeding, bruising. LABS/IMAGING: Results for orders placed or performed in visit on 05/28/23 COMPREHENSIVE METABOLIC PANEL Result Value Ref Range BUN 57 (H) 6 - 20 mg/dL Creatinine 2.7 (H) 0.5 - 1.0 mg/dL Estimated Glomerular Filtration Rate 18 (L) >=60 mL/min Sodium 134 (L) 135 - 146 mmol/L Potassium 5.1 3.5 - 5.1 mmol/L Chloride 95 (L) 98 - 107 mmol/L CO2 26 22 - 32 mmol/L Anion Gap 13 7 - 15 mmol/L Glucose 120 70 - 120 mg/dL Albumin 4.3 3.8 - 5.0 g/dL AST 15 10 - 35 U/L Alkaline Phosphatase 100 35 - 130 U/L Bilirubin, Total 0.7 <=1.2 mg/dL Calcium 9.8 8.4 - 10.2 mg/dL Protein 7.0 6.0 - 8.3 g/dL ALT 20 10 - 35 U/L FERRITIN Result Value Ref Range Ferritin 281 (H) 13 - 150 ng/mL ERYTHROPOIETIN (EPO) Result Value Ref Range Erythropoietin (EPO) 7.6 2.6 - 18.5 mIU/mL CBC Result Value Ref Range WBC 9.64 4.00 - 10.80 K/uL RBC 3.96 3.85 - 5.15 M/uL HGB 11.7 (L) 12.0 - 15.3 g/dL HCT 36.5 36.0 - 45.2 % MCV 92.2 81.5 - 97.5 fL MCH 29.5 27.0 - 34.0 pg MCHC 32.1 32.0 - 36.0 g/dL RDW 16.4 11.5 - 15.5 % PLT 253 140 - 400 K/uL MPV 11.5 6.6 - 11.1 fL nRBCs 0 <=0 /100 WBCs DIFFERENTIAL, AUTOMATED Result Value Ref Range WBC 9.64 4.00 - 10.80 K/uL Neutrophils % 75.8 (H) 40.0 - 75.0 % Lymphocytes % 15.7 (L) 18.0 - 42.0 % Monocytes % 6.2 1.0 - 11.0 % Eosinophils % 1.3 0.0 - 6.0 % Basophils % 0.4 0.0 - 2.0 % Immature Granulocytes % 0.6 0.0 - 2.0 % Absolute Neutrophils 7.30 1.80 - 7.70 K/uL Absolute Lymphocytes 1.51 1.00 - 4.80 K/ul Absolute Monocytes 0.60 0.00 - 1.10 K/uL Absolute Eosinophils 0.13 0.00 - 0.70 K/uL Absolute Basophils 0.04 0.00 - 0.20 K/uL Absolute Immature Granulocytes 0.06 0.00 - 0.20 K/uL *Note: Due to a large number of results and/or encounters for the requested time period, some results have not been displayed. A complete set of results can be found in Results Review. Kidney function is getting worse with increasing creatinine and decreasing GFR and she is followingNephrology. Hemoglobin is stable at 11.7 with normal WBC count and platelet counts. MCV and RDW allwithin normal limit. Ferritin is 281 and erythropoietin level is 7.6. REVIEW OF SYSTEMS: General: No Fever, chills, night sweats, or weight loss. HEENT: No change in visual acuity, blurred or double vision. No epistaxis, facial pain, nasal discharge or change in hearing. Denies dysphagia, no muscosal ulceration, or sores noted. Cardiovascular: No chest pain, WILLIAM, or palpitations Respiratory: No shortness of breath, cough, hemoptysis, or pleuritic chest pain Gastrointestinal: No abdominal pain, nausea, vomiting, diarrhea, rectal pain or bleeding Genitourinary: Denies Hematuria or dysuria Musculoskeletal: No bone pain Psychiatric: No vegetative signs of depression Endocrine: No symptoms of hypothyroidism or hyperglycemia Hematologic: No bleeding or lymph nodes noted As mentioned above, all of the systems were reviewed in full and are unremarkable. Past Medical History: Diagnosis Date Acute respiratory disease due to COVID-19 virus 09/22/2021 Asthma dependent on inhaled steroids Asthma exacerbation Atypical ductal hyperplasia of breast 02/14/2022 Dyslipidemia, goal to be determined KARI (generalized anxiety disorder) 10/14/2020 Irritable bowel syndrome Medical marijuana use 11/13/2019 Mixed sleep apnea 11/13/2019 Neuralgia of chest post surgery Osteoporosis severe in back & knee's per pt Other specified complications 04/2001 lung disease PTSD (post-traumatic stress disorder) 10/14/2020 PVC's (premature ventricular contractions) 10/14/2020 Sleep apnea, obstructive Current Outpatient Medications Medication Sig Dispense Refill Spacer/Aero-Holding Chambers LAURA Use with inhaler. 1 Device 0 multivitamin (MVI) Tablet TAKE 1 TABLET BY MOUTH EVERY DAY FOR SUPPLEMENT 1 ONETOUCH DELICA LANCETS FINE MISC Use up to four times a day as directed DX E11.9 (Patient not taking: Reported on 05/09/2023) 400 Each 3 clonazePAM 0.5 MG Oral Tablet Take 1 Tablet by mouth 3 times a day as needed for Anxiety. Doxepin HCl 100 MG Oral Capsule (SINEquan) Take 150 mg by mouth at bedtime. Dexcom G6 Transmitter Use as directed. 1 Each 1 Dexcom G6 Sensor Use as directed. 1 Each 5 Dexcom G6 Cannon Pinion Adjuster Device Use as directed. 1 Each 1 Systane Complete 0.6 % Ophthalmic Solution (Propylene Glycol) Instill 1 Drop into both eyes in the morning and 1 Drop at noon and 1 Drop in the evening and 1 Drop before bedtime. Proventil HFA 108 (90 Base) MCG/ACT Inhalation Aerosol Solution Inhale 1-2 Puffs by mouth 4 times aday as needed for Shortness of Breath or Wheezing. As needed Acetaminophen ER 650 MG Oral Tablet Extended Release Take 1 Tablet by mouth every 8 hours as needed. EpiPen 2-Ronni 0.3 MG/0.3ML Injection Solution Auto-injector For a severe reaction: Place orange end against the outer thigh, press firmly, hold in place for 10 seconds and go to the Emergency room. (Patient not taking: Reported on 05/09/2023) 2 Each 3 Vitamin C 500 MG Oral Capsule Take 1 Capsule by mouth in the morning and 1 Capsule before bedtime. Ferrous Gluconate 240 (27 Fe) MG Oral Tablet (Ferate) Take 1 Tablet by mouth in the morning. NovoLOG FlexPen 100 UNIT/ML Subcutaneous Solution Pen-injector (insulin aspart) 4 units under the skin with breakfast OneTouch Verio In Vitro Strip (Glucose Blood) Use up to 3 times a day E11.9 (Patient not taking: Reported on 05/09/2023) 400 Strip 5 OneTouch UltraSoft Lancets Use as directed 4 times a day. Use up to four times a day as directed [facility] blood glucose E 11.9 (Patient not taking: Reported on 05/09/2023) 400 Each 5 Aspirin 81 MG Oral Tablet Chewable (Aspirin Low Dose) CHEW 1 TABLET BY MOUTH EVERY DAY 90 Tablet 3 Diphenoxylate-Atropine 2.5-0.025 MG Oral Tablet (Lomotil) Take 2 Tablets by mouth every 6 hours as needed for Diarrhea. 60 Tablet 5 Atorvastatin Calcium 40 MG Oral Tablet (Lipitor) TAKE 1 TABLET BY MOUTH EVERY DAY IN THE MORNING 90Tablet 3 BD Pen Needle Mini U/F 31G X 5 MM (Insulin Pen Needle) USE DIRECTED WITH NOVOLOG 300 Each 1 Fluticasone Furoate-Vilanterol 100-25 MCG/ACT Inhalation Aerosol Powder Breath Activated (BREO ellipta) INHALE 1 PUFF BY MOUTH EVERY DAY 180 Each 3 Budesonide 0.5 MG/2ML Inhalation Suspension (Pulmicort) INHALE VIA NEBULIZER 1 VIAL IN THE MORNING AND 1 VIAL BEFORE BEDTIME 360 mL 3 Diclofenac Sodium 1 % External Gel (Voltaren) PLACE 4 GRAMS TOPICALLY ON THE SKIN TWICE DAILY DIRECTED 300 g 4 Estrogens Conjugated 0.625 MG/GM Vaginal Cream (Premarin) Administer 0.5 g into the vagina at bedtime. Do this 3 evenings per week 30 g 5 Famotidine 40 MG Oral Tablet (Pepcid) Take 1 Tablet by mouth in the morning. 90 Tablet 3 Furosemide 40 MG Oral Tablet (Lasix) Take 1 Tablet by mouth in the morning and 1 Tablet before bedtime. for fluid accumulation or weight gain. 180 Tablet 11 Fluticasone Propionate 50 MCG/ACT Nasal Suspension (Flonase) Administer 2 Sprays into each nostril in the morning and 2 Sprays before bedtime. 48 mL 3 Lisinopril 20 MG Oral Tablet (Prinivil) Take 1 Tablet by mouth in the morning. 90 Tablet 3 Methscopolamine [place] 2.5 MG Oral Tablet TAKE 1 TAB UP TO 3 TIMES DAILY NEEDED FOR ABDOMINAL CRAMPS & DIARRHEA, 270 Tablet 1 Metoprolol Succinate ER 25 MG Oral Tablet Extended Release 24 Hour (toPROL XL) TAKE 1 TAB BY MOUTH EVERY MORNING AND ONE-HALF TAB AT BEDTIME. 135 Tablet 3 Montelukast Sodium 10 MG Oral Tablet (Singulair) Take 1 Tablet by mouth in the morning. 90 Tablet 3 Ozempic (0.25 or 0.5 MG/DOSE) 2 MG/3ML Solution Pen-injector (Semaglutide(0.25 or 0.5MG/DOS)) Inject 0.5 mg under the skin once a week. 9 mL 3 Pantoprazole Sodium 40 MG Oral Tablet Delayed Release (Protonix) Take 1 Tablet by mouth in the morning and 1 Tablet before bedtime. 180 Tablet 3 Pramipexole Dihydrochloride 1 MG Oral Tablet (Mirapex) Take 1 Tablet by mouth at bedtime. 90 Tablet3 Toujeo SoloStar 300 UNIT/ML Subcutaneous Solution Pen-injector (Insulin Glargine (1 Unit Dial)) INJECT UNDER THE SKIN 20 units in am. 9 mL 5 Triamcinolone Acetonide 0.1 % External Cream (Aristocort) Apply to rash on body nightly as needed 80 g 3 [employer] System Device Use 1 Device as directed every evening. Up to 4 times a day to check blood glucose E11.9 1 Each 0 Current Facility-Administered Medications Medication Dose Route Frequency Provider Last Rate Last Admin albuterol sulfate (PROVENTIL) (2.5 MG/3ML) 0.083% inhalation solution 2.5 mg 2.5 mg Nebulizer Q4H PRN Ernie Coker PA-C 2.5 mg at 08/22/18 1326 Social History Tobacco Use Smoking status: Never Smokeless tobacco: Never Tobacco comments: Vape THC every night to help with pain to sleep Vaping Use Vaping Use: Every day Substances: THC Devices: Disposable Substance Use Topics Alcohol use: No Drug use: No Review of patient's allergies indicates: Allergen Reactions Shellfish Anaphylaxis Nutritional Supplements Other (Please comment) Facial swelling, some throat swelling, pt does not use epi pen Actos [Pioglitazone Hydrochloride] Rash Amaryl Bactrim [Sulfamethoxazole-Trimethoprim] Other (Please comment) Headache reported Bismuth Nausea/vomiting Codeine Itching Colestid [Colestipol Hcl] Rash Compazine [Prochlorperazine] "Nervous" Crestor [Rosuvastatin] Itching and Rash Diphenhydramine Hcl Doxycycline hives (per patient) Glyburide Rash Hydroxyzine Hcl Neuro complications (Please comment) Mental confusion Metformin Hcl Rash Other Allergy (See Comments) Silicone Sudafed [Pseudoephedrine] jitteriness Tramadol Nausea/vomiting Vistaril [Hydroxyzine Hcl] "thousand of lights going off" Zofran [Ondansetron] Other (Please comment) Pt requesting zofran be placed on allergy list due to extreme tiredness and fatigue after medication. Melatonin Nervous , anxiety PHYSICAL EXAMINATION: General Appearance: Healthy appearing patient in no acute distress BP 138/81 (BP Site: Left Arm, BP Position: Sitting, BP Cuff Size: Large) | Pulse 66 | Temp 36.7 C(98.1 F) (Tympanic) | Resp 16 | Wt 111.6 kg (246 lb) | SpO2 95% | BMI 36.33 kg/m | BSA 2.33 m Vitals reviewed. HEENT: No oral or pharyngeal masses, ulceration or thrush noted, no sinus tenderness. Neck is supple with no thyromegaly or JVD noted. Lymph Nodes: No lymphadenopathy noted in the occipital, pre and post auricular, cervical, supra andinfraclavicular, axillary, epitrochlear, inguinal, and popliteal region. Lungs/Thorax: Clear to auscultation, no accessory muscles of respiration being used. Heart: Regular rate and rhythm, normal S1, S2 Abdomen: Soft, nontender, bowel sounds present, no appreciable hepatosplenomegaly, no palpable masses Extremeties: Good pulses bilaterally, no peripheral edema. ASSESSMENT: 73-year-old female with complicated past medical history including diabetes, on long-term insulin, iron metabolism disease, diabetic retinopathy, hyperlipidemia, moderate persistent asthma, obstructive sleep apnea does not tolerate BiPAP nocturnal oxygen 3 to 4 L, hypertension, pulmonary hypertension, PVCs, irritable bowel syndrome, GERD, chronic kidney disease stage III, restless leg syndrome, depression, KARI, PTSD, , history of COVID referred with a diagnosis of iron deficiency anemia. Patient had anemia workup done including vitamin B12, ferritin, retic count, TSH, ferritin and iron screen. Ferritin was elevated. Most likely patient has anemia of chronic disease. Cause can be because of the underlying multiple medical comorbid condition, infection, medication or underlying bone marrow issues. As far as her hemoglobin is stable, best option is to continue to monitor the patient clinically. Overall clinically she is stable without any new symptoms complain. Recent blood test shows stable hemoglobin level but worsening kidney function. She will continue follow nephrology and has follow-up appointment on 07/04/2023. Discussed with the patient about diagnosis reviewed all the available blood test result with her. As far as her hemoglobin is stable, the best option is continue to monitor the patient clinically. PLAN: Return to clinic in 4 months with CBC and CMP. She will continue follow her PCP and Nephrology for all other medical problems. The patient voiced understanding of all of the above. All questions and concerns were addressed in an apparently satisfactory manner. Henok Stauffer MD (This note was completed using the dictation program Fluency Direct. As such, there may be misspellings, word substitutions, or other variations that should not change the essence of the clinical content of this encounter note. If there is need for further clarification, please direct questions to me.) documented in this encounter Nursing Notes * Samantha Asencio CMA - 06/03/2023 2:14 PM EST Patient identifed by name and birthdate Do you have any concerns about pain management for today's visit? No Living Will or Advance Directive for Health Care as noted on the problem list. [facility] is a way you can talk to your provider on line through e-mail. Would you like to sign up? I can activate it for you? ALREADY ACTIVE Filed Vitals: 06/03/23 1409 BP: 138/81 Pulse: 66 Resp: 16 Temp: 36.7 C (98.1 F) TempSrc: Tympanic SpO2: 95% Weight: 111.6 kg (246 lb) Patient was instructed to not get up on the exam table/exam chair until directed and assisted by their provider; patient is to remain seated in the chair/ wheelchair/ exam table/ exam chair for fall prevention and safety reasons. Patient is aware to have assistance to step down off exam table/exam chair with personnel. Patient voiced full comprehension of instructions. documented in this encounter Plan of Treatment Upcoming Encounters Date Type Department Care Team (Late st Contact Info) Description 06/07/2023 10:30 AM EST Office Visit Gastroenterology, [facility] [address] [place] [address] Geovanna Bahena CRNP [address] [place] [address] 06/11/2023 1:30 PM EST Office Visit Cardiology, [facility] [address] [place] [address] Sophy Sands PA-C [address] [place] [address] 06/28/2023 4:00 PM EST Telemedicine Orthopaedics [facility] [address] [place] [address] Carlos A Cid MD [address] [place] [id number] 07/05/2023 8:00 AM EST Office Visit Nutrition & Weight Management, [facility] [address] [place] [address] Iris Cerrato PA-C [address] [place] [address] 08/08/2023 2:00 PM EDT [facility] [place] [address] Taty Tobar CRNP [address] [place] [address] 08/30/2023 2:00 PM EDT Office Visit Nephrology, [facility] [address] [place] [address] Eric Day MD [address] [place] [address] 09/25/2023 1:00 PM EDT Laboratory Laboratory, [address] [id number] [address] [address] 10/02/2023 4:00 PM EDT Office Visit Hematology/Oncology [facility] [address] [place] [address] Henok Stauffer MD [address] [place] [address] 10/03/2023 6:20 PM EDT Office [facility] [place] [address] Chris Asencio DO [address] [place] [address] 11/07/2023 3:40 PM EDT Office [facility] [place] [address] Chris Asencio, DO [address] [place] [address] 02/06/2024 2:00 PM EDT Office [facility] [place] [address] Taty Tobar CRNP [address] [place] [address] 02/28/2024 1:30 PM EDT Imaging Radiology [facility] 1st Floor, [place] [address] [facility] [place] [address] 03/05/2024 2:00 PM EDT Office Visit Ophthalmology, [facility] [address] [facility] [place] [address] Ernie Rivers, DO [address] [facility] [place] [address] 05/14/2024 1:00 PM EST Office Visit [facility] [address] [facility] [place] [address] Chris Asencio, [address] [facility] [place] [address] Scheduled Orders Name Type Priority Associated Diagnoses Orde r Schedule CBC WITH WBC DIFFERENTIAL Lab Routine Anemia, chronic disease Expected: 09/30/2023, Expires: 05/19/2024 COMPREHENSIVE METABOLIC PANEL Lab Routine Anemia, chronic disease Expected: 09/30/2023, Expires: 05/19/2024 LD Lab Routine Anemia, chronic disease Expected: 09/30/2023, Expires: 05/19/2024 Scheduled Procedures Name Priority Associated Diagnoses Date/Ti [...] Additional history exists CKD PHOS USE SMARTSET 86947 05/06/202404/26, 01/10/2023, 09/06/2022, Additional history exists CKD HGB USE SMARTSET 20358 05/28/202405/28, 05/28/2023, 05/06/2023, Additional history exists COLONOSCOPY-EVERY [...] of this encounter Visit Diagnoses Diagnosis Anemia, chronic disease- Primary Anemia of other chronic disease documented in this encounter Advance Directives Documents on File Type Date 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 Question Answer Comments Discussion of Advance Directives occurred with: Patient Does the patient have a Living Will? No Does the patient have Health Care Power of Real Estate Account Executive? No Care Teams Rug Repairer Relationship Specialty Start Date End Date Chris Asencio DO [address] [place] [address] PCP - General Family Medicine 01/07/18 documented as of this encounter
--- OUTSIDE RECORDS SUMMARY | 2023-06-20 00:29 | External Medical Summary ---
Author Name Unknown Address Unknown Organization K01:[facility] [place] [facility] [address] [place] [address] Laboratory Report Ordering Provider Test Date Status RIGO LEE 05/28/2023 11:35:03 Final Observation Date Value Abnormality Reference (Units ) Status WBC, Total 05/28/2023 11:35:03 9.64 4.00-10.80 (K/uL) Final RBC 05/28/2023 11:35:03 3.96 3.85-5.15 (M/uL) Final Hemoglobin 05/28/2023 11:35:03 11.7 Below low normal 12.0-15.3 (g/dL) Final HCT 05/28/2023 11:35:03 36.5 36.0-45.2 (%) Final MCV 05/28/2023 11:35:03 92.2 81.5-97.5 (fL) Final MCH 05/28/2023 11:35:03 29.5 27.0-34.0 (pg) Final MCHC 05/28/2023 11:35:03 32.1 32.0-36.0 (g/dL) Final RDW 05/28/2023 11:35:03 16.4 11.5-15.5 (%) Final Platelets 05/28/2023 11:35:03 253 140-400 (K/uL) Final MPV 05/28/2023 11:35:03 11.5 6.6-11.1 (fL) Final Nucleated erythrocytes/100 leukocytes [Ratio] in Blood by Automated count 05/28/2023 11:35:03 0 <=0 (/100 WBCs) Final Performing Location [facility] [place] [address] [place] [address]
--- OUTSIDE RECORDS SUMMARY | 2023-06-20 00:29 | External Medical Summary ---
Author Name Unknown Address Unknown Organization : Laboratory Report Ordering Provider Test Date Status RIGO LEE 05/28/2023 11:35:03 Final Observation Date Value Abnormality Reference (Units ) Status ERYTHROPOIETIN (EPO) 05/28/2023 11:35:03 7.6 2.6-18.5 (mIU/mL) Final
Test Performed at:
[email or web address]
[address]
[place] [address]
Rafael Duarte M.D., Ph.D.,Director of Laboratories Performing Location
--- OUTSIDE RECORDS SUMMARY | 2023-06-20 00:30 | External Medical Summary | Summary of Care ---
Author Name Unknown Organization [facility] Address [address] [place] [address] Phone [phone] Care Team Providers Care Assembly Machine Tender Name Role Phone Luis M Chris Fabiananay Primary Care Provider Reason for Visit * Reason Comments eRx-Medication Refill Encounter Details Date Type Department Care Team (Late st Contact Info) Description 05/14/2023 Refill Dermatology [facility] [address] 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 Up to 4 times a day to check blood glucose E11.9 1 Each 0 04/17/2023 Active Additional Information Patient not taking.Reported [...] morning. 90 Tablet 3 05/09/2023 Active Methscopolamine [place] 2.5 MG Oral TabletIndications:Irr itable bowel syndrome [...] disease, with long-term current use of insulin ([facility]) Inject 0.5 mg under the skin [...] disease, with long-term current use of insulin ([facility]),Type II diabetes mellitus with neurological manifestations ([facility]) INJECT UNDER THE SKIN 20 units in am. 9 mL 5 05/09/2023 Active Triamcinolone Acetonide 0.1 % External Cream (Aristocort)Indicatio ns:Rash and nonspecific skin eruption Apply to rash on body nightly as needed 80 g 3 05/09/2023 Active predniSONE 20 MG Oral Tablet (Deltasone) Take 1 Tablet by mouth in the morning for 5 days. 10 Tablet 0 05/13/2023 3 Active Hospital, Clinic, or Other Facility Administered Medication Ordered Dose Route Frequency Start Date End Date Status albuterol sulfate (PROVENTIL) (2.5 MG/3ML) 0.083% inhalation solution 2.5 mgIndications:Moderate persistent asthma without complication 2.5 mg NEBULIZER Q4H PRN 08/13/2018 Active documented as of this encounter (statuses as of 05/14/2023) Active Problems Patient Care Coordination No te [...] as of this encounter (statuses as of 05/14/2023) Resolved Problems Problem Noted Date Diagnosed Date [...] MD [facility] [place] Spinal pain 06/04/2014 02/02/2017 Type 2 diabetes [...] as of this encounter (statuses as of 05/14/2023) Immunizations Name Administration Dates Next Due COVID-19 [...] encounter Miscellaneous Notes * Telephone Encounter - Rosangela Stern LPN - 05/14/2023 10:24 AM EST Refused Prescriptions: Disp Refills Triamcinolone Acetonide 0.1 % External Cre*30 g Sig: APPLY TO RASH ON BODY NIGHTLY NEEDEDRefused By: ROSANGELA STERN for Refusal: Duplicate Request---- documented in this encounter Plan of Treatment Upcoming Encounters Date Type Department Care Team (Late st Contact Info) Description 05/17/2023 10:00 AM EST Home Visit [facility] [address] [address] Penny Parikh RN [address] [place] [address] 05/28/2023 11:30 AM EST [facility], [place] [address] [facility] [id number] [facility] [address] [facility] [id number] 06/03/2023 2:30 PM EST Office [facility]ology/[facility] [address] [facility] [place] [address] Henok Stauffer MD [address] [facility] [place] [address] 06/07/2023 10:30 AM EST Office Visit Gastroenterology, [facility] [address] [place] [address] Geovanna Bahena CRNP [address] [place] [address] 06/11/2023 1:30 PM EST Office Visit Cardiology, [facility] [address] [place] [address] Sophy Sands [place] [address] [place] [address] 06/28/2023 4:00 PM EST Telemedicine Orthopaedics [facility] [address] [place] [address] Carlos A Cid MD [address] [place] [phone] 07/05/2023 8:00 AM EST Office Visit Nutrition & Weight Management, [facility] [address] [place] [address] Iris Cerrato [place] [address] [place] [address] 08/08/2023 2:00 PM EDT Office Visit Family Practice [facility] [address] [place] [address] Taty Tobar CRNP [address] [place] [address] 08/30/2023 2:00 PM EDT Office Visit Nephrology, [facility] [address] [place] [address] Eric Day MD [address] [place] [address] 10/03/2023 6:20 PM EDT Office Visit [facility] [address] [place] [address] Chris Asencio, [address] [place] [address] 11/07/2023 3:40 PM EDT Office Visit [facility] [address] [place] [address] Chris Asencio, [address] [place] [address] 02/06/2024 2:00 PM EDT Office Visit [facility] [address] [place] [address] Taty Tobar CRNP [address] [place] [address] 02/28/2024 1:30 PM EDT Imaging Rad[facility] [address] [place] [address] 03/05/2024 2:00 PM EDT Office Visit Ophthalmology, [facility] [address] [place] [address] Ernie Rivers, DO [address] [facility] [place] [address] 05/14/2024 1:00 PM EST Office Visit Family Practice [facility] [address] [place] [address] Chris Asencio, [address] [place] [address] Scheduled Procedures Name Priority Associated Diagnoses Date/Ti [...] Additional history exists CKD HGB USE SMARTSET 16351 05/06/202405/06, 05/06/2023, 01/24/2023, Additional history exists CKD PHOS USE SMARTSET 97516 05/06/202404/26, 01/10/2023, 09/06/2022, Additional history exists COLONOSCOPY-EVERY 5 YRS AGES 18-100 03/17/2026 03/17/2021, 03/17/2021, 12/07/2014, Additional history exists DTaP,Tdap,and Td Vaccines (3 - Td or Tdap) 04/16/2026 04/16/2016, 04/12/2006 Lipid Panel 01/25/2028 01/24/2023, 04/07/2022, 03/01/2022, Additional history exists DXA Scan 08/22/2031 [...] as of this encounter Visit Diagnoses Diagnosis Rash and nonspecific skin eruption Rash and other nonspecific skin eruption documented in this encounter Advance Directives Documents on File Type Date Recorded Patient Product Development Director Expl anation POLST 10/20/2021 [place] [facility]SUSTAINING TREATMENT Latest Code Status on File Code Status Date Activated Date Inactivated Comments Full Code 03/30/2022 6:40 AM 03/30/2022 2:12 PM This order reflects the patients wishes and were consensually agreed upon. Question Answer Comments Discussion of Advance Directives occurred with: Patient Does the patient have a Living Will? No Does the patient have Health Care Power of Bread Dumper? No Care Teams Assembly Machine Tender Relationship Specialty Start Date End Date Chris Asencio DO [address] [place] [address] PCP - General Family Medicine 01/07/18 documented as of this encounter
--- OUTSIDE RECORDS SUMMARY | 2023-06-20 00:30 | External Medical Summary | Summary of Care ---
Author Name Unknown Organization [facility] Address [address] [place] [address] Phone [phone] Care Team Providers Care Emery Wheel Worker Name Role Phone Chris Asencio DO Primary Care Provider Reason for Visit * Reason Comments Return Visit Pt here for f/o, has questions re: recent labs ordered from Dr. Day. Encounter Details Date Type Department Care Team (Latest Contact Info) Description 05/09/2023 1:40 PM EST Office Visit [facility] [address] [facility] [address] Chris Asencio DO [address] [facility] [place] [address] Type 2 diabetes mellitus with stage 3a chronic kidney disease, with long-term current use of insulin ([facility])*; Type II diabetes mellitus with neurological manifestations ([facility]); Type 2 diabetes mellitus with diabetic nephropathy, with long-term current use of insulin ([facility]); Type 2 diabetes mellitus with both eyes affected by mild nonproliferative retinopathy without macular edema, without long-term current use of insulin ([facility]); Dyslipidemia, goal LDL below 70; KATERIN (obstructive sleep apnea); Moderate persistent asthma without complication; HTN, goal below 130/80; Pulmonary hypertension, unspecified (HCC); Primary pulmonary hypertension (HCC); Irritable bowel syndrome with diarrhea; Acute respiratory disease due to COVID-19 virus; Vaginal atrophy; Bilateral lower extremity edema; LRTI (lower respiratory tract infection); Moderate persistent asthma with acute exacerbation; Acute URI; Stage 3a chronic kidney disease (HCC); PVC's (premature ventricular contractions); Type 2 diabetes mellitus with stage 3b chronic kidney disease, with long-term current use of insulin (HCC); Gastroesophageal reflux disease with esophagitis without hemorrhage; Right knee pain, unspecified chronicity; Rash and nonspecific skin eruption Allergies Active [...] as of this encounter (statuses as of 05/09/2023) Medications Medication Sig Dispensed Refills Start Date [...] 1 Each 5 1 Active Dexcom G6 Cnc Set Up Operator DeviceIndications:Ty pe 2 diabetes mellitus with stage 3a chronic kidney disease, with long-term current use of insulin ([facility]) Use as directed. 1 Each 1 1 [...] taking.Reported on 05/09/2023 OneTouch Verio Flex System DeviceIndications:Ty pe 2 diabetes mellitus with stage 3b chronic kidney disease, with long-term current use of insulin (HCC) Use 1 Device as directed every evening. Up to 4 times a day to check blood glucose E11.9 1 Each 0 3 Active Additional Information Patient not taking.Reported [...] morning. 90 Tablet 3 3 Active Methscopolamine [place] 2.5 MG Oral TabletIndications:Ir ritable bowel syndrome [...] disease, with long-term current use of insulin ([facility]) Inject 0.5 mg under the [...] disease, with long-term current use of insulin ([facility]),Type II diabetes mellitus with neurological manifestations ([facility]) INJECT UNDER THE SKIN 20 units in am. 9 mL 5 3 Active Triamcinolone Acetonide 0.1 % External Cream (Aristocort)Indicati ons:Rash and nonspecific skin eruption Apply to rash on body nightly as needed 80 g 3 3 Active BD Pen Needle Mini U/F 31G X 5 MM (Insulin Pen Needle) USE DIRECTED WITH NOVOLOG 300 Each 1 1 05/09/20 23 Discontinu ed(Refill) Aspirin Low Dose 81 MG Oral Tablet Chewable (aspirin)Indications :Type 2 diabetes mellitus with diabetic nephropathy, with long-term current use of insulin ([facility]) CHEW 1 TABLET BY MOUTH EVERY DAY 90 Tablet 1 2 05/09/20 23 Discontinu ed(Refill) Budesonide 0.5 MG/2ML Inhalation Suspension (Pulmicort)Indicatio ns:Acute respiratory disease due to COVID-19 virus INHALE VIA NEBULIZER 1 VIAL IN THE MORNING AND 1 VIAL BEFORE BEDTIME 360 mL 2 3 05/09/20 23 Discontinu ed(Refill) Lisinopril 20 MG Oral Tablet (Prinivil)Indication s:HTN, goal below 130/80,Stage 3a chronic kidney disease (HCC) Take 1 Tablet by mouth in the morning. 90 Tablet 3 3 05/09/20 23 Discontinu ed(Refill) Diphenoxylate-Atropi ne 2.5-0.025 MG Oral Tablet (Lomotil)Indications :Irritable bowel syndrome with diarrhea Take 2 Tablets by mouth every 6 hours as needed for Diarrhea. 30 Tablet 3 3 05/09/20 Discontinu ed(Refill) Breo Ellipta 100-25 MCG/ACT Inhalation Aerosol Powder Breath Activated (fluticasone furoate-vilanterol)I ndications:Moderate persistent asthma without complication INHALE 1 PUFF BY MOUTH EVERY DAY 180 Each 1 3 05/09/20 Discontinu ed(Refill) Pramipexole Dihydrochloride 1 MG Oral Tablet (Mirapex)Indications :Right knee pain, unspecified chronicity Take 1 Tablet by mouth at bedtime. 90 Tablet 3 3 05/09/20 Discontinu ed(Refill) Pantoprazole Sodium 40 MG Oral Tablet Delayed Release (Protonix)Indication s:Gastroesophageal reflux disease with esophagitis without hemorrhage Take 1 Tablet by mouth in the morning and 1 Tablet before bedtime. 180 Tablet 3 3 05/09/20 Discontinu ed(Refill) Furosemide 40 MG Oral Tablet (Lasix)Indications:B ilateral lower extremity edema Take 1 Tablet by mouth in the morning and 1 Tablet before bedtime. for fluid accumulation or weight gain. 180 Tablet 11 3 05/09/20 Discontinu ed(Refill) Ozempic (0.25 or 0.5 MG/DOSE) 2 MG/3ML Solution Pen-injector (Semaglutide(0.25 or 0.5MG/DOS))Indicatio ns:Type 2 diabetes mellitus with stage 3b chronic kidney disease, with long-term current use of insulin ([facility]) Inject 0.5 mg under the skin once a week. 9 mL 3 3 05/09/20 Discontinu ed(Refill) Toujeo SoloStar 300 UNIT/ML Subcutaneous Solution Pen-injector (Insulin Glargine (1 Unit Dial))Indications:Ty pe 2 diabetes mellitus with stage 3a chronic kidney disease, with long-term current use of insulin (HCC),Type II diabetes mellitus with neurological manifestations (HCC) INJECT UNDER THE SKIN 20 units in am. 0 3 05/09/20 Discontinu ed(Refill) Triamcinolone Acetonide 0.1 % External Cream (Aristocort)Indicati ons:Rash and nonspecific skin eruption Apply to rash on body nightly as needed 30 g 0 3 05/09/20 Discontinu ed(Refill) Metoprolol Succinate ER 25 MG Oral Tablet Extended Release 24 Hour (toPROL XL)Indications:PVC's (premature ventricular contractions) TAKE 1 TAB BY MOUTH EVERY MORNING AND ONE-HALF TAB AT BEDTIME. 135 Tablet 3 3 05/09/20 Discontinu ed(Refill) Atorvastatin Calcium 40 MG Oral Tablet (Lipitor) TAKE 1 TABLET BY MOUTH EVERY DAY IN THE MORNING 90 Tablet 3 3 05/09/20 Discontinu ed(Refill) Famotidine 40 MG Oral Tablet (Pepcid) TAKE 1 TABLET BY MOUTH EVERY DAY 90 Tablet 3 3 05/09/20 Discontinu ed(Refill) Montelukast Sodium 10 MG Oral Tablet (Singulair) TAKE 1 TABLET BY MOUTH EVERY DAY 90 Tablet 3 3 05/09/20 Discontinu ed(Refill) Fluticasone Propionate 50 MCG/ACT Nasal Suspension (Flonase)Indications :LRTI (lower respiratory tract infection),Moderate persistent asthma with acute exacerbation,Acute URI Administer 2 Sprays into each nostril in the morning and 2 Sprays before bedtime. 48 mL 3 3 05/09/20 Discontinu ed(Refill) Diclofenac Sodium 1 % External Gel (Voltaren) PLACE 4 GRAMS TOPICALLY ON THE SKIN TWICE DAILY DIRECTED 300 g 4 3 05/09/20 Discontinu ed(Refill) Methscopolamine [place] 2.5 MG Oral TabletIndications:Ir ritable bowel syndrome with diarrhea TAKE 1 TAB UP TO 3 TIMES DAILY NEEDED FOR ABDOMINAL CRAMPS & DIARRHEA, 270 Tablet 1 3 05/09/20 Discontinu ed(Refill) Estrogens Conjugated 0.625 MG/GM Vaginal Cream (Premarin)Indication s:Vaginal atrophy Administer 0.5 g into the vagina at bedtime. Do this 3 evenings per week 30 g 5 3 05/09/20 23 Discontinu ed(Refill) Hospital, Clinic, or Other Facility Administered Medication Ordered Dose Route Frequency Start Date End Date Status albuterol sulfate (PROVENTIL) (2.5 MG/3ML) 0.083% inhalation solution 2.5 mgIndications:Moderate persistent asthma without complication 2.5 mg NEBULIZER Q4H PRN 08/13/2018 Active documented as of this encounter (statuses as of 05/09/2023) Active Problems Patient Care Coordination No te [...] as of this encounter (statuses as of 05/09/2023) Resolved Problems Problem Noted Date Diagnosed Date [...] 06/04/2014 Overview: Signed 06/04/2014 Pranav Sanchez MD [facility] Spinal pain 06/04/2014 02/02/2017 Type 2 diabetes [...] as of this encounter (statuses as of 05/09/2023) Immunizations Name Administration Dates Next Due COVID-19 [...] Sign Reading Time Taken Comments Blood Pressure 124/68 05/09/2023 1:19 PM EST Pulse 68 05/09/2023 1:19 PM EST Temperature 36.8 C (98.2 F) 05/09/2023 1:19 PM ES T Respiratory Rate 16 05/09/2023 1:19 PM EST Oxygen Saturation 96% 05/09/2023 1:19 PM EST Inhaled Oxygen Concentration - - Weight - - Height - - Body Mass Index - - documented in this encounter Progress Notes * Chris Asencio, DO - 05/09/2023 1:23 PM EST Images from the original note were not included. Assessment and Plan CKD stage 3b Will repeat BMP in 1 week With good hydration Type 2 diabetes mellitus with stage 3a chronic kidney disease, with long-term current use of insulin ([facility]) - Toujeo SoloStar 300 UNIT/ML Subcutaneous Solution Pen-injector (Insulin Glargine (1 Unit Dial)); INJECT UNDER THE SKIN 20 units in am. - BASIC METABOLIC PANEL; Future Type II diabetes mellitus with neurological manifestations ([facility]) - Toujeo SoloStar 300 UNIT/ML Subcutaneous Solution Pen-injector (Insulin Glargine (1 Unit Dial));INJECT UNDER THE SKIN 20 units in am. Type 2 diabetes mellitus with diabetic nephropathy, with long-term current use of insulin (HCC) - Aspirin 81 MG Oral Tablet Chewable (Aspirin Low Dose); CHEW 1 TABLET BY MOUTH EVERY DAY - BD Pen Needle Mini U/F 31G X 5 MM (Insulin Pen Needle); USE DIRECTED WITH NOVOLOG Type 2 diabetes mellitus with both eyes affected by mild nonproliferative retinopathy without macular edema, without long-term current use of insulin (HCC) Dyslipidemia, goal LDL below 70 - Atorvastatin Calcium 40 MG Oral Tablet (Lipitor); TAKE 1 TABLET BY MOUTH EVERY DAY IN THE MORNING KATERIN (obstructive sleep apnea) Moderate persistent asthma without complication - Fluticasone Furoate-Vilanterol 100-25 MCG/ACT Inhalation Aerosol Powder Breath Activated (BREO ellipta); INHALE 1 PUFF BY MOUTH EVERY DAY - Montelukast Sodium 10 MG Oral Tablet (Singulair); Take 1 Tablet by mouth in the morning. HTN, goal below 130/80 - Lisinopril 20 MG Oral Tablet (Prinivil); Take 1 Tablet by mouth in the morning. Pulmonary hypertension, unspecified (HCC) Primary pulmonary hypertension (HCC) Irritable bowel syndrome with diarrhea - Diphenoxylate-Atropine 2.5-0.025 MG Oral Tablet (Lomotil); Take 2 Tablets by mouth every 6 hours as needed for Diarrhea. - Methscopolamine [place] 2.5 MG Oral Tablet; TAKE 1 TAB UP TO 3 TIMES DAILY NEEDED FOR ABDOMINAL CRAMPS & DIARRHEA, Acute respiratory disease due to COVID-19 virus - Budesonide 0.5 MG/2ML Inhalation Suspension (Pulmicort); INHALE VIA NEBULIZER 1 VIAL IN THE MORNING AND 1 VIAL BEFORE BEDTIME Vaginal atrophy - Estrogens Conjugated 0.625 MG/GM Vaginal Cream (Premarin); Administer 0.5 g into the vagina at bedtime. Do this 3 evenings per week Bilateral lower extremity edema - Furosemide 40 MG Oral Tablet (Lasix); Take 1 Tablet by mouth in the morning and 1 Tablet before bedtime. for fluid accumulation or weight gain. LRTI (lower respiratory tract infection) - Fluticasone Propionate 50 MCG/ACT Nasal Suspension (Flonase); Administer 2 Sprays into each nostril in the morning and 2 Sprays before bedtime. Moderate persistent asthma with acute exacerbation - Fluticasone Propionate 50 MCG/ACT Nasal Suspension (Flonase); Administer 2 Sprays into each nostril in the morning and 2 Sprays before bedtime. Acute URI - Fluticasone Propionate 50 MCG/ACT Nasal Suspension (Flonase); Administer 2 Sprays into each nostril in the morning and 2 Sprays before bedtime. Stage 3a chronic kidney disease (HCC) - Lisinopril 20 MG Oral Tablet (Prinivil); Take 1 Tablet by mouth in the morning. PVC's (premature ventricular contractions) - Metoprolol Succinate ER 25 MG Oral Tablet Extended Release 24 Hour (toPROL XL); TAKE 1 TAB BY MOUTH EVERY MORNING AND ONE-HALF TAB AT BEDTIME. Type 2 diabetes mellitus with stage 3b chronic kidney disease, with long-term current use of insulin ([facility]) - Ozempic (0.25 or 0.5 MG/DOSE) 2 MG/3ML Solution Pen-injector (Semaglutide(0.25 or 0.5MG/DOS)); Inject 0.5 mg under the skin once a week. Gastroesophageal reflux disease with esophagitis without hemorrhage - Famotidine 40 MG Oral Tablet (Pepcid); Take 1 Tablet by mouth in the morning. - Pantoprazole Sodium 40 MG Oral Tablet Delayed Release (Protonix); Take 1 Tablet by mouth in the morning and 1 Tablet before bedtime. Right knee pain, unspecified chronicity - Diclofenac Sodium 1 % External Gel (Voltaren); PLACE 4 GRAMS TOPICALLY ON THE SKIN TWICE DAILY ASDIRECTED - Pramipexole Dihydrochloride 1 MG Oral Tablet (Mirapex); Take 1 Tablet by mouth at bedtime. Rash and nonspecific skin eruption - Triamcinolone Acetonide 0.1 % External Cream (Aristocort); Apply to rash on body nightly as needed History of Present Illness Liane Alejandre is a 73 year old female that presents for Return Visit (Pt here for f/o, has questions re: recent labs ordered from Dr. Day. ) Presents today in f/u Doing well overall and Doing well with medications Has questions about her renal function That concerned her with her recent labs Physical Exam Vitals: 05/09/23 1319 Temp: 36.8 C (98.2 F) Pulse: 68 Resp: 16 SpO2: 96% BP: 124/68 Physical Exam Constitutional: Appearance: Normal appearance. HENT: Head: Normocephalic and atraumatic. Eyes: Extraocular Movements: Extraocular movements intact. Pupils: Pupils are equal, round, and reactive to light. Cardiovascular: Rate and Rhythm: Normal rate and regular rhythm. Pulmonary: Effort: Pulmonary effort is normal. Breath sounds: Normal breath sounds. Neurological: General: No focal deficit present. Mental Status: She is alert and oriented to person, place, and time. Psychiatric: Mood and Affect: Mood normal. Behavior: Behavior normal. Wrap-Up Time: Total time today was 43 minutes excluding any time spent in the performance of separately billed services. documented in this encounter Plan of Treatment Upcoming Encounters Date Type Department Care Team (Late st Contact Info) Description 05/17/2023 10:00 AM EST Home Visit [facility] at [facility] [address] [facility] [place] [address] Penny Parikh RN [address] [facility] [place] [address] 05/28/2023 11:30 AM EST Laboratory Laboratory, [facility] [address] [place] [address] [facility] [address] [place] [address] 06/03/2023 2:30 PM EST Office Visit Hematology/Oncology [facility] [address] [facility] [place] [address] Henok Stauffer MD [address] [facility] [address] 06/07/2023 10:30 AM EST Office Visit Gastroenterology, [facility] [address] [facility] [place] [address] Geovanna Bahena CRNP [address] [place] [address] 06/11/2023 1:30 PM EST Office Visit Cardiology, [facility] [address] [facility] [place] [address] Sophy Sands PA-C [address] [place] [address] 06/28/2023 4:00 PM EST Telemedicine Orthopaedics [facility] [address] [place] [address] Carlos A Cid MD [address] [place] [id number] 07/05/2023 8:00 AM EST Office Visit Nutrition & Weight Management, [facility] [address] [place] [address] Iris Cerrato PA-C [address] [place] [address] 08/08/2023 2:00 PM EDT Office Visit Family [facility] [address] [place] [address] Taty Tobar CRNP [address] [place] [address] 08/30/2023 2:00 PM EDT Office Visit Nephrology, [facility] [address] [place] [address] Eric Day MD [address] [facility] [place], [place] [address] 10/03/2023 6:20 PM EDT Office Visit [facility] [address] [place] [address] Chris Asencio DO [address] [place] [address] 11/07/2023 3:40 PM EDT Office Visit Family [facility] [address] [place] [address] Chris Asencio, DO [address] [place] [address] 02/06/2024 2:00 PM EDT Office Visit [facility] [address] [place] [address] Taty Tobar CRNP [address] [place] [address] 02/28/2024 1:30 PM EDT Imaging Radiology [facility] 1st Floor, [place] [address] [facility] [place] [address] 03/05/2024 2:00 PM EDT Office Visit Ophthalmology, [facility] [address] [facility] [place] [address] Ernie Rivers, DO [address] [facility] [place] [address] 05/14/2024 1:00 PM EST Office Visit [facility] [place] [address] Chris Asencio, [address] [place] [address] Scheduled Orders Name Type Priority Associated Diagnoses Orde r Schedule BASIC METABOLIC PANEL Lab Routine Type 2 diabetes mellitus with stage 3a chronic kidney disease, with long-term current use of insulin (HCC) Expected: 05/16/2023 (Approximate), Expires: 05/08/2024 Scheduled Procedures Name Priority Associated Diagnoses Date/Ti [...] Additional history exists CKD HGB USE SMARTSET 67052 05/06/202405/06, 05/06/2023, 01/24/2023, Additional history exists CKD PHOS USE SMARTSET 80690 05/06/202404/26, 01/10/2023, 09/06/2022, Additional history exists COLONOSCOPY-EVERY [...] Diagnosis Type 2 diabetes mellitus with stage 3a chronic kidney disease, with long-term current use of insulin (HCC)- Primary Type II diabetes mellitus with neurological manifestations (HCC) Type II or unspecified type diabetes mellitus with neurological manifestations, not stated as uncontrolled Type 2 diabetes mellitus with diabetic nephropathy, with long-term current use of insulin (HCC) Type 2 diabetes mellitus with both eyes affected by mild nonproliferative retinopathy without macular edema, without long-term current use of insulin (HCC) Dyslipidemia, goal LDL below 70 Other and unspecified hyperlipidemia KATERIN (obstructive sleep apnea) Obstructive sleep apnea (adult) (pediatric) Moderate persistent asthma without complication Unspecified asthma HTN, goal below 130/80 Unspecified essential hypertension Pulmonary hypertension, unspecified (HCC) Primary pulmonary hypertension (HCC) Primary pulmonary hypertension Irritable bowel syndrome with diarrhea Irritable bowel syndrome Acute respiratory disease due to COVID-19 virus Vaginal atrophy Postmenopausal atrophic vaginitis Bilateral lower extremity edema Edema LRTI (lower respiratory tract infection) Other diseases of respiratory system, not elsewhere classified Moderate persistent asthma with acute exacerbation Acute URI Acute upper respiratory infections of unspecified site Stage 3a chronic kidney disease (HCC) PVC's (premature ventricular contractions) Other premature beats Type 2 diabetes mellitus with stage 3b chronic kidney disease, with long-term current use of insulin (HCC) Gastroesophageal reflux disease with esophagitis without hemorrhage Right knee pain, unspecified chronicity Rash and nonspecific skin eruption Rash and other nonspecific skin eruption documented in this encounter Advance Directives Documents on File Type Date Recorded Patient Rn Compliance Expl anation POLST 10/20/2021 [place] [facility] FOR LIFE-SUSTAINING TREATMENT Latest Code Status on File Code Status Date Activated Date Inactivated Comments Full Code 03/30/2022 6:40 AM 03/30/2022 2:12 PM This order reflects the patients wishes and were consensually agreed upon. Question Answer Comments Discussion of Advance Directives occurred with: Patient Does the patient have a Living Will? No Does the patient have Health Care Power of [employer] Specialist? No Care Teams Emery Wheel Worker Relationship Specialty Start Date End Date Chris Asencio DO [facility] [place] [address] PCP - General Family Medicine 01/07/18 documented as of this encounter
--- OUTSIDE RECORDS SUMMARY | 2023-06-20 00:30 | External Medical Summary | Summary of Care ---
Author Name Unknown Organization [facility] Address [address] [facility] [place] [address] Phone [phone] Care Team Providers Care Junior Architect Name Role Phone Chris Asencio DO Primary Care Provider Reason for Visit * Reason Onset Date Comments Advice 05/10/2023 Encounter Details Date Type Department Care Team (Late st Contact Info) Description 05/10/2023 Telephone Family Practice [facility] [address] [place] [address] Chris Asencio DO [address] [place] [address] Advice Allergies Active Allergy Reactions Criticality Noted [...] as of this encounter (statuses as of 05/13/2023) Medications Medication Sig Dispensed Refills Start Date [...] 1 Each 5 10/20/2020 Active Dexcom G6 Bakery Manager DeviceIndications:Typ e 2 diabetes mellitus with stage [...] the skin with breakfast 0 03/22/2023 Active Carmenta BioscienceTouch Verio In Vitro Strip (Glucose Blood)Indications:Typ e [...] morning. 90 Tablet 3 05/09/2023 Active Methscopolamine [place] 2.5 MG Oral TabletIndications:Irr itable bowel syndrome [...] long-term current use of insulin ([facility]),Type II diabetes mellitus with neurological manifestations ([facility]) INJECT UNDER THE SKIN 20 units in am. 9 mL 5 05/09/2023 Active Triamcinolone Acetonide 0.1 % External Cream (Aristocort)Indicatio ns:Rash and nonspecific skin eruption Apply to rash on body nightly as needed 80 g 3 05/09/2023 Active predniSONE 20 MG Oral Tablet (Deltasone) Take 1 Tablet by mouth in the morning for 5 days. 10 Tablet 0 05/13/2023 Active Hospital, Clinic, or Other Facility Administered Medication Ordered Dose Route Frequency Start Date End Date Status albuterol sulfate (PROVENTIL) (2.5 MG/3ML) 0.083% inhalation solution 2.5 mgIndications:Moderate persistent asthma without complication 2.5 mg NEBULIZER Q4H PRN 08/13/2018 Active documented as of this encounter (statuses as of 05/13/2023) Active Problems Patient Care Coordination No te [...] mood (affective) disorder 08/22/2021 Panic disorder 08/22/2021 KAIR (generalized anxiety disorder) 10/14/2020 PVC's (premature ventricular [...] as of this encounter (statuses as of 05/13/2023) Resolved Problems Problem Noted Date Diagnosed Date [...] 06/04/2014 Overview: Signed 06/04/2014 Pranav Sanchez MD [facility] [place] Spinal pain 06/04/2014 02/02/2017 Type 2 diabetes [...] as of this encounter (statuses as of 05/13/2023) Immunizations Name Administration Dates Next Due COVID-19 [...] encounter Miscellaneous Notes * Telephone Encounter - Kellie Gutierres LPN - 05/10/2023 11:36 AM EST Patient calling in stating that she saw Dr. Asencio yesterday. She stated that she has a rash from her diabetes. She said that her outbound sales advisor prescribed her a cream but she has run out of it and yesterday Dr. Asencio refilled the cream, he also asked if she needed a refill on the prednisone which she declined yesterday but she believes that she needs the prednisone now. She stated that her outbound sales advisor usually gives her prednisone 20mg for 5 days. documented in this encounter Plan of Treatment Upcoming Encounters Date Type Department Care Team (Late st Contact Info) Description 05/17/2023 10:00 AM EST Home Visit [facility] [address] [place] [address] Penny Parikh RN [address] [place] [address] 05/28/2023 11:30 AM EST Laboratory Laboratory, [place] [address] [address] [facility] [phone] [facility] [address] [facility] [address] 06/03/2023 2:30 PM EST Office Visit Hematology/Oncology [facility] [address] [facility] [place] [address] Henok Stauffer MD [address] [facility] [place] [address] 06/07/2023 10:30 AM EST Office Visit Gastroenterology, [facility] [address] [place] [address] Geovanna Bahena CRNP [address] [place] [address] 06/11/2023 1:30 PM EST Office Visit Cardiology, [facility] [address] [place] [address] Sophy Sands PALillyC [address] [place] [address] 06/28/2023 4:00 PM EST Telemedicine Orthopaedics [facility] [address] [place] [address] Carlos A Cid MD [address] [place] [address] 07/05/2023 8:00 AM EST Office Visit Nutrition & Weight Management, [facility] [address] [place] [address] Iris Cerrato PA-C [address] [place] [address] 08/08/2023 2:00 PM EDT Office Visit Family Practice [facility] [address] [place] [address] Taty Tobar CRNP [address] [place] [address] 08/30/2023 2:00 PM EDT Office Visit Nephrology, [facility] [address] [place] [address] Eric Day MD [address] [facility] [place] [place] [address] 10/03/2023 6:20 PM EDT Office Visit [facility] [address] [place] [address] Chris Asencio DO [address] [place] [address] 11/07/2023 3:40 PM EDT Office Visit [facility] [address] [place] [address] Chris Asencio DO [address] [place] [address] 02/06/2024 2:00 PM EDT Office Visit [facility] [address] [facility] [place] [address] Taty Tobar CRNP [address] [place] [address] 02/28/2024 1:30 PM EDT Imaging [facility] [address] [place] [address] 03/05/2024 2:00 PM EDT Office Visit Ophthalmology, [facility] [place] [address] Ernie Rivers, DO [address] [facility] [place] [address] 05/14/2024 1:00 PM EST Office Visit Family Practice [facility] [address] [place] [address] Chris Asencio, [address] [place] [address] Scheduled Procedures Name Priority Associated Diagnoses Date/Ti [...] Additional history exists CKD HGB USE SMARTSET 38099 05/06/202405/06, 05/06/2023, 01/24/2023, Additional history exists CKD PHOS USE SMARTSET 03813 05/06/202404/26, 01/10/2023, 09/06/2022, Additional history exists COLONOSCOPY-EVERY [...] Documents on File Type Date Recorded 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 FOR LIFE-SUSTAINING TREATMENT Latest Code Status on File Code Status Date Activated Date Inactivated Comments Full Code 03/30/2022 6:40 AM 03/30/2022 2:12 PM This order reflects the patients wishes and were consensually agreed upon. Question Answer Comments Discussion of Advance Directives occurred with: Patient Does the patient have a Living Will? No Does the patient have Health Care Power of Sound Engineer? No Care Teams Junior Architect Relationship Specialty Start Date End Date Chris Asencio DO [address] [place] [address] PCP - General Family Medicine 01/07/18 documented as of this encounter
--- OUTSIDE RECORDS SUMMARY | 2023-06-20 00:30 | External Medical Summary | Summary of Care ---
Author Name Unknown Organization [facility] Address [address] [facility] [place] [address] Phone [phone] Care Team Providers Care E Marketing Specialist Name Role Phone Chris Asencio DO Primary Care Provider Reason for Visit * Reason Onset Date Comments Test Results 05/03/2023 Encounter Details Date Type Department Care Team (Late st Contact Info) Description 05/03/2023 Telephone Family Practice [facility] [address] [place] [address] Chris Asencio DO [address] [place] [address] Test Results Allergies Active Allergy Reactions Criticality [...] as of this encounter (statuses as of 05/07/2023) Medications Medication Sig Dispensed Refills Start Date End Date Status Spacer/Aero-Holding Chambers DEVIIndications:Mod erate persistent asthma without complication Use with inhaler. 1 Device 0 9 Active multivitamin (MVI) Tablet TAKE 1 TABLET BY MOUTH EVERY DAY FOR SUPPLEMENT 1 9 Active ONETOUCH DELICA LANCETS FINE MISC Use up to four times a day as directed DX E11.9 400 Each 3 9 Active clonazePAM 0.5 MG Oral Tablet Take 1 Tablet by mouth 3 times a day as needed for Anxiety. 0 Active Doxepin HCl 100 MG Oral Capsule (SINEquan) Take 150 mg by mouth at bedtime. 0 1 Active Dexcom G6 TransmitterIndicati ons:Type 2 diabetes mellitus with stage 3a chronic kidney disease, with long-term current use of insulin (HCC) Use as directed. 1 Each 1 1 Active Dexcom G6 SensorIndications:T ype 2 diabetes mellitus with stage 3a chronic kidney disease, with long-term current use of insulin (HCC) Use as directed. 1 Each 5 1 Active Dexcom G6 Squirrel Man DeviceIndications:T ype 2 diabetes mellitus with stage 3a chronic kidney disease, with long-term current use of insulin (HCC) Use as directed. 1 Each 1 1 Active BD Pen Needle Mini U/F 31G X 5 MM (Insulin Pen Needle) USE DIRECTED WITH NOVOLOG 300 Each 1 1 Active Systane Complete 0.6 [...] every 8 hours as needed. 0 Active Aspirin Low Dose 81 MG Oral Tablet Chewable (aspirin)Indication s:Type 2 diabetes mellitus with diabetic nephropathy, with long-term current use of insulin (HCC) CHEW 1 TABLET BY MOUTH EVERY DAY 90 Tablet 1 2 Active Additional Information Patient not taking.Reported on 05/06/2023 Budesonide 0.5 MG/2ML Inhalation Suspension (Pulmicort)Indicati ons:Acute respiratory disease due to COVID-19 virus INHALE VIA NEBULIZER 1 VIAL IN THE MORNING AND 1 VIAL BEFORE BEDTIME 360 mL 2 3 Active EpiPen 2-Ronni 0.3 MG/0.3ML Injection Solution Auto-injectorIndica tions:Allergy, subsequent encounter For a severe reaction: Place orange end against the outer thigh, press firmly, hold in place for 10 seconds and go to the Emergency room. 2 Each 3 3 Active Lisinopril 20 MG Oral Tablet (Prinivil)Indicatio ns:HTN, goal below 130/80,Stage 3a chronic kidney disease (HCC) Take 1 Tablet by mouth in the morning. 90 Tablet 3 3 Active Diphenoxylate-Atrop ine 2.5-0.025 MG Oral Tablet (Lomotil)Indication s:Irritable bowel syndrome with diarrhea Take 2 Tablets by mouth every 6 hours as needed for Diarrhea. 30 Tablet 3 3 Active Breo Ellipta 100-25 MCG/ACT Inhalation Aerosol Powder Breath Activated (fluticasone furoate-vilanterol) Indications:Moderat e persistent asthma without complication INHALE 1 PUFF BY MOUTH EVERY DAY 180 Each 1 3 Active Pramipexole Dihydrochloride 1 MG Oral Tablet (Mirapex)Indication s:Right knee pain, unspecified chronicity Take 1 Tablet by mouth at bedtime. 90 Tablet 3 3 Active Pantoprazole Sodium 40 MG Oral Tablet Delayed Release (Protonix)Indicatio ns:Gastroesophageal reflux disease with esophagitis without hemorrhage Take 1 Tablet by mouth in the morning and 1 Tablet before bedtime. 180 Tablet 3 3 Active Furosemide 40 MG Oral Tablet (Lasix)Indications: Bilateral lower extremity edema Take 1 Tablet by mouth in the morning and 1 Tablet before bedtime. for fluid accumulation or weight gain. 180 Tablet 11 3 Active Vitamin C 500 MG Oral Capsule Take 1 Capsule by mouth in the morning and 1 Capsule before bedtime. 0 Active Ferrous Gluconate 240 (27 Fe) MG Oral Tablet (Ferate) Take 1 Tablet by mouth in the morning. 0 Active Ozempic (0.25 or 0.5 MG/DOSE) 2 MG/3ML Solution Pen-injector (Semaglutide(0.25 or 0.5MG/DOS))Indicati ons:Type 2 diabetes mellitus with stage 3b chronic kidney disease, with long-term current use of insulin (HCC) Inject 0.5 mg under the skin once a week. 9 mL 3 3 Active Toujeo SoloStar 300 UNIT/ML Subcutaneous Solution Pen-injector (Insulin Glargine (1 Unit Dial))Indications:T ype 2 diabetes mellitus with stage 3a chronic kidney disease, with long-term current use of insulin (HCC),Type II diabetes mellitus with neurological manifestations (HCC) INJECT UNDER THE SKIN 20 units in am. 0 3 Active NovoLOG FlexPen 100 UNIT/ML Subcutaneous Solution Pen-injector (insulin aspart)Indications: Not taking 4 units under the skin with breakfast 0 3 Active Triamcinolone Acetonide 0.1 % External Cream (Aristocort)Indicat ions:Rash and nonspecific skin eruption Apply to rash on body nightly as needed 30 g 0 3 Active OneTouch Verio In Vitro Strip (Glucose Blood)Indications:T ype 2 diabetes mellitus with stage 3b chronic kidney disease, with long-term current use of insulin (HCC) Use up to 3 times a day E11.9 400 Strip 5 3 Active OneTouch Verio Flex System DeviceIndications:T ype 2 diabetes mellitus with stage 3b chronic kidney disease, with long-term current use of insulin (HCC) Use 1 Device as directed every evening. Up to 4 times a day to check blood glucose E11.9 1 Each 0 3 Active OneTouch UltraSoft LancetsIndications: Type 2 diabetes mellitus with stage 3b chronic kidney disease, with long-term current use of insulin (HCC) Use as directed 4 times a day. Use up to four times a day as directed to check blood glucose E 11.9 400 Each 5 3 Active Metoprolol Succinate ER 25 MG Oral Tablet Extended Release 24 Hour (toPROL XL)Indications:PVC' s (premature ventricular contractions) TAKE 1 TAB BY MOUTH EVERY MORNING AND ONE-HALF TAB AT BEDTIME. 135 Tablet 3 3 Active Atorvastatin Calcium 40 MG Oral Tablet (Lipitor) TAKE 1 TABLET BY MOUTH EVERY DAY IN THE MORNING 90 Tablet 3 3 Active Famotidine 40 MG Oral Tablet (Pepcid) TAKE 1 TABLET BY MOUTH EVERY DAY 90 Tablet 3 3 Active Montelukast Sodium 10 MG Oral Tablet (Singulair) TAKE 1 TABLET BY MOUTH EVERY DAY 90 Tablet 3 3 Active Fluticasone Propionate 50 MCG/ACT Nasal Suspension (Flonase)Indication s:LRTI (lower respiratory tract infection),Moderate persistent asthma with acute exacerbation,Acute URI Administer 2 Sprays into each nostril in the morning and 2 Sprays before bedtime. 48 mL 3 3 Active Diclofenac Sodium 1 % External Gel (Voltaren) PLACE 4 GRAMS TOPICALLY ON THE SKIN TWICE DAILY DIRECTED 300 g 4 3 Active Methscopolamine [place] 2.5 MG Oral TabletIndications:I rritable bowel syndrome with diarrhea TAKE 1 TAB UP TO 3 TIMES DAILY NEEDED FOR ABDOMINAL CRAMPS & DIARRHEA, 270 Tablet 1 3 Active Estrogens Conjugated 0.625 MG/GM Vaginal Cream (Premarin)Indicatio ns:Vaginal atrophy Administer 0.5 g into the vagina at bedtime. Do this 3 evenings per week 30 g 5 3 Active Prochlorperazine Maleate 10 MG Oral Tablet (Compazine)Indicati ons:Gastroesophagea l reflux disease with esophagitis without hemorrhage,Irritabl e bowel syndrome, unspecified type TAKE 1 TABLET BY MOUTH EVERY 6 HOURS NEEDED FOR NAUSEA 30 Tablet 0 3 023 Discontinued predniSONE 20 MG Oral Tablet (Deltasone)Indicati ons:Type 2 diabetes mellitus with stage 3b chronic kidney disease, with long-term current use of insulin (HCC) Take 2 Tablets by mouth in the morning. 10 Tablet 0 3 023 Discontinued Hospital, Clinic, or Other Facility Administered Medication Ordered Dose Route Frequency Start Date End Date Status albuterol sulfate (PROVENTIL) (2.5 MG/3ML) 0.083% inhalation solution 2.5 mgIndications:Moderate persistent asthma without complication 2.5 mg NEBULIZER Q4H PRN 08/13/2018 Active documented as of this encounter (statuses as of 05/07/2023) Active Problems Patient Care Coordination No te [...] as of this encounter (statuses as of 05/07/2023) Resolved Problems Problem Noted Date Diagnosed Date [...] 06/04/2014 Overview: Signed 06/04/2014 Pranav Sanchez MD [facility] Pharm[facility] [place] Spinal pain 06/04/2014 02/02/2017 Type 2 diabetes [...] as of this encounter (statuses as of 05/07/2023) Immunizations Name Administration Dates Next Due COVID-19 [...] encounter Miscellaneous Notes * Telephone Encounter - Misti Alcaraz LPN - 05/07/2023 9:58 AM EST Patient returned call. Informed of message. Verbalized understanding. * Telephone Encounter - Rosi Armstrong OSA - 05/07/2023 9:56 AM EST Pt calling back, states someone from clinic called but did not leave a message. Please advise. * Telephone Encounter - Chris Asencio DO - 05/06/2023 4:21 PM EST The repeat chest x-ray was ok Shoulder x-ray pending * Telephone Encounter - Misti Alcaraz LPN - 05/06/2023 1:51 PM EST Pt calling to check on repeat chest xray returned. Year ago she had tumors removed on the left side of her chest, she wonder if the incidental findings from shoulder xray could be scar tissue from the previous surgery. Please advise. * Telephone Encounter - Екатерина Lizarraga MED ASSIST - 05/03/2023 11:31 AM EST Tests are still in-process at this time. * Telephone Encounter - Nisha Liu LPN - 05/03/2023 10:35 AM EST Who is Requesting Test Results: Patient Primary Care Provider : Chris Asencio DO Tests Results Requested : CXR and Shoulder Xray Date of Test : 05/02/23 Location of Test: [facility] Ordering Provider: Chris Asencio DO Callback Number: [phone] Patient has been made aware that the turnaround time for test results are typically as follows: Laboratory results = within 2 days Urine Cultures = within 2-3 days depending on growth within the culture Pathology results (biopsy results/PAP) = 1-2 weeks Radiology results = within 1 week Cologuard results = within 2 weeks from the shipment date COVID results = within 2 days Test results are still in process. No final result at this time. documented in this encounter Plan of Treatment Upcoming Encounters Date Type Department Care Team (Late st Contact Info) Description 05/09/2023 1:40 PM EST Office Visit [facility] [address] [address] Chris Asencio DO [address] [address] 05/17/2023 10:00 AM EST Home Visit [facility] [address] [address] Penny Parikh, RN [address] [address] 05/28/2023 11:30 AM EST Laboratory Laboratory, [place] [address] [facility] [place] [address] [facility] [address] [facility] [place] [address] 06/03/2023 2:30 PM EST Office Visit Hematology/Oncology [facility] [address] [facility] [place] [address] Henok Stauffer MD [address] [facility] [place] [address] 06/07/2023 10:30 AM EST Office Visit Gastroenterology, [facility] [address] [place] [address] Geovanna Bahena CRNP [address] [place] [address] 06/11/2023 1:30 PM EST Office Visit Cardiology, [facility] [address] [place] [address] Sophy Sands PALillyC [address] [place] [address] 06/28/2023 4:00 PM EST Telemedicine Orthopaedics [facility] [address] [place] [address] Carlos A Cid MD [address] [place] [address] 07/05/2023 8:00 AM EST Office Visit Nutrition & Weight Management, [facility] [address] [place] [address] Iris Cerrato PALillyC [address] [place] [address] 08/08/2023 2:00 PM EDT Office Visit [facility] [address] [place], [place] [address] Taty Tobar CRNP [address] [place] [address] 08/30/2023 2:00 PM EDT Office Visit Nephrology, [facility] [place] [address] [place] [address] Eric Day MD [address] [place] [address] 10/03/2023 6:20 PM EDT Office Visit [facility] [address] [place] [address] Chris Asencio DO [address] [place] [address] 11/07/2023 3:40 PM EDT Office Visit [facility] [address] [place] [address] Chris Asencio, [address] [place] [address] 02/06/2024 2:00 PM EDT Office Visit [facility] [address] [place] [address] Taty Tobar CRNP [address] [place] [address] 02/28/2024 1:30 PM EDT Imaging Radiology [facility] [facility] [address] [place] [address] 03/05/2024 2:00 PM EDT Office Visit Ophthalmology, [facility] 132 [facility] [place] [address] Ernie Rivers, DO [address] [place] [id number] Scheduled Procedures Name Priority Associated Diagnoses Date/Ti [...] Additional history exists CKD HGB USE SMARTSET 59643 05/06/202405/06, 05/06/2023, 01/24/2023, Additional history exists CKD PHOS USE SMARTSET 45045 05/06/202404/26, 01/10/2023, 09/06/2022, Additional history exists COLONOSCOPY-EVERY [...] Documents on File Type Date Recorded 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 Question Answer Comments Discussion of Advance Directives occurred with: Patient Does the patient have a Living Will? No Does the patient have Health Care Power of Bisque Kiln Placer? No Care Teams E Marketing Specialist Relationship Specialty Start Date End Date Chris Asencio DO [address] [place] [address] PCP - General Family Medicine 01/07/18 documented as of this encounter
--- OUTSIDE RECORDS SUMMARY | 2023-06-20 00:30 | External Medical Summary | Summary of Care ---
Author Name Unknown Organization [facility] Address [address] [place] [address] Phone [phone] Care Team Providers Care Evs Tech Name Role Phone Luis M Chris Fabiananay Primary Care Provider Reason for Visit * Reason Onset Date Comments Advice 05/07/2023 Encounter Details Date Type Department Care Team (Late st Contact Info) Description 05/07/2023 Telephone Nephrology, [address] [phone] Services, Scheduling [address] [place] [address] Advice Allergies Active Allergy Reactions Criticality Noted [...] DX E11.9 400 Each 3 04/16/2019 Active clonazePAM 0.5 MG Oral Tablet Take [...] 1 Each 5 10/20/2020 Active Dexcom G6 Fiscal Accounting Clerk DeviceIndications:Typ e 2 diabetes mellitus with stage 3a chronic kidney disease, with long-term current use of insulin ([facility]) Use as directed. 1 Each 1 10/20/2020 Active BD Pen Needle Mini U/F 31G X 5 MM (Insulin Pen Needle) USE DIRECTED WITH NOVOLOG 300 Each 1 04/19/2021 Active Systane Complete 0.6 % Ophthalmic Solution [...] Low Dose 81 MG Oral Tablet Chewable (aspirin)Indications: Type 2 diabetes mellitus with diabetic nephropathy, with long-term current use of insulin (HCC) CHEW 1 TABLET BY MOUTH EVERY DAY 90 Tablet 1 09/22/2021 Active Additional Information Patient not taking.Reported on 05/06/2023 Budesonide 0.5 MG/2ML Inhalation Suspension (Pulmicort)Indication s:Acute respiratory disease due to COVID-19 virus INHALE VIA NEBULIZER 1 VIAL IN THE MORNING AND 1 VIAL BEFORE BEDTIME 360 mL 2 08/06/2022 Active EpiPen 2-Ronni 0.3 MG/0.3ML Injection Solution Auto-injectorIndicati ons:Allergy, subsequent encounter For a severe reaction: Place orange end against the outer thigh, press firmly, hold in place for 10 seconds and go to the Emergency room. 2 Each 3 09/06/2022 Active Lisinopril 20 MG Oral Tablet (Prinivil)Indications :HTN, goal below 130/80,Stage 3a chronic kidney disease (HCC) Take 1 Tablet by mouth in the morning. 90 Tablet 3 09/06/2022 Active Diphenoxylate-Atropin e 2.5-0.025 MG Oral Tablet (Lomotil)Indications: Irritable bowel syndrome with diarrhea Take 2 Tablets by mouth every 6 hours as needed for Diarrhea. 30 Tablet 3 09/06/2022 Active Breo Ellipta 100-25 MCG/ACT Inhalation Aerosol Powder Breath Activated (fluticasone furoate-vilanterol)In dications:Moderate persistent asthma without complication INHALE 1 PUFF BY MOUTH EVERY DAY 180 Each 1 09/13/2022 Active Pramipexole Dihydrochloride 1 MG Oral Tablet (Mirapex)Indications: Right knee pain, unspecified chronicity Take 1 Tablet by mouth at bedtime. 90 Tablet 3 10/23/2022 Active Pantoprazole Sodium 40 MG Oral Tablet Delayed Release (Protonix)Indications :Gastroesophageal reflux disease with esophagitis without hemorrhage Take 1 Tablet by mouth in the morning and 1 Tablet before bedtime. 180 Tablet 3 01/24/2023 Active Furosemide 40 MG Oral Tablet (Lasix)Indications:Bi lateral lower extremity edema Take 1 Tablet by mouth in the morning and 1 Tablet before bedtime. for fluid accumulation or weight gain. 180 Tablet 11 01/24/2023 Active Vitamin C 500 MG Oral Capsule [...] skin once a week. 9 mL 3 03/05/2023 Active Toujeo SoloStar 300 UNIT/ML Subcutaneous Solution Pen-injector (Insulin Glargine (1 Unit Dial))Indications:Typ e 2 diabetes mellitus with stage 3a chronic kidney disease, with long-term current use of insulin (HCC),Type II diabetes mellitus with neurological manifestations (HCC) INJECT UNDER THE SKIN 20 units in am. 0 03/22/2023 Active NovoLOG FlexPen 100 UNIT/ML Subcutaneous Solution Pen-injector (insulin aspart)Indications:No t taking 4 units under the skin with breakfast 0 03/22/2023 Active Triamcinolone Acetonide 0.1 % External Cream (Aristocort)Indicatio ns:Rash and nonspecific skin eruption Apply to rash on body nightly as needed 30 g 0 04/15/2023 Active OneTouch Verio In Vitro Strip (Glucose Blood)Indications:Typ e 2 diabetes mellitus with stage 3b chronic kidney disease, with long-term current use of insulin (HCC) Use up to 3 times a day E11.9 400 Strip 5 04/17/2023 Active OneTouch Verio Flex System DeviceIndications: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 Up to 4 times a day to check blood glucose E11.9 1 Each 0 04/17/2023 Active OneTouch UltraSoft LancetsIndications:Ty pe 2 diabetes mellitus with stage 3b chronic kidney disease, with long-term current use of insulin (HCC) Use as directed 4 times a day. Use up to four times a day as directed to check blood glucose E 11.9 400 Each 5 04/17/2023 Active Metoprolol Succinate ER 25 MG Oral Tablet Extended Release 24 Hour (toPROL XL)Indications:PVC's (premature ventricular contractions) TAKE 1 TAB BY MOUTH EVERY MORNING AND ONE-HALF TAB AT BEDTIME. 135 Tablet 3 04/17/2023 Active Atorvastatin Calcium 40 MG Oral Tablet (Lipitor) TAKE 1 TABLET BY MOUTH EVERY DAY IN THE MORNING 90 Tablet 3 04/17/2023 Active Famotidine 40 MG Oral Tablet (Pepcid) TAKE 1 TABLET BY MOUTH EVERY DAY 90 Tablet 3 04/17/2023 Active Montelukast Sodium 10 MG Oral Tablet (Singulair) TAKE 1 TABLET BY MOUTH EVERY DAY 90 Tablet 3 04/17/2023 Active Fluticasone Propionate 50 MCG/ACT Nasal Suspension (Flonase)Indications: LRTI (lower respiratory tract infection),Moderate persistent asthma with acute exacerbation,Acute URI Administer 2 Sprays into each nostril in the morning and 2 Sprays before bedtime. 48 mL 3 04/22/2023 Active Diclofenac Sodium 1 % External Gel (Voltaren) PLACE 4 GRAMS TOPICALLY ON THE SKIN TWICE DAILY DIRECTED 300 g 4 04/22/2023 Active Methscopolamine [place] 2.5 MG Oral TabletIndications:Irr itable bowel syndrome with diarrhea TAKE 1 TAB UP TO 3 TIMES DAILY NEEDED FOR ABDOMINAL CRAMPS & DIARRHEA, 270 Tablet 1 04/22/2023 Active Estrogens Conjugated 0.625 MG/GM Vaginal Cream (Premarin)Indications :Vaginal atrophy Administer 0.5 g into the vagina at bedtime. Do this 3 evenings per week 30 g 5 04/23/2023 Active Hospital, Clinic, or Other Facility Administered [...] Sanchez MD [facility] [place] Spinal pain 06/04/2014 02/02/2017 Type 2 diabetes [...] mRNA, LNP-s, No Pre serve, 2-Dose Series (Zefanclub) 09/09/2020,08/19/2020 Pneumococcal Conjugate Vacc, 13 Valent (Prevnar) [...] encounter Miscellaneous Notes * Telephone Encounter - Ayesha Be OSA - 05/07/2023 11:00 AM EST Pt has concerns about lab work and would like a phone call to go over everything [phone] documented in this encounter Plan of Treatment Upcoming Encounters Date Type Department Care Team (Late st Contact Info) Description 05/09/2023 1:40 PM EST Office Visit Family Practice [facility] [address] [place] [address] Chris Asencio DO [address] [place] [address] 05/17/2023 10:00 AM EST Home Visit [facility] [address] [place] [address] Penny Parikh RN [address] [facility] [place] [address] 05/28/2023 11:30 AM EST Laboratory Laboratory, [place] [address] [place] [phone] [facility] [address] [place] [address] 06/03/2023 2:30 PM EST Office Visit Hematology/Oncology [facility] [place] [address] [place] [address] Henok Stauffer MD [address] [place] [address] 06/07/2023 10:30 AM EST Office Visit Gastroenterology, [facility] [address] [place] [address] [address] Geovanna Bahena CRNP [address] [place] [address] 06/11/2023 1:30 PM EST Office Visit Cardiology, [facility] [address] [place] [address] Sophy Sands PA-C [address] [place] [address] 06/28/2023 4:00 PM EST Telemedicine Orthopaedics [facility] [address] [place] [address] Carlos A Cid MD [address] [place] [phone] 07/05/2023 8:00 AM EST Office Visit Nutrition & Weight Management, [facility] [address] [place] [address] Iris Cerrato PA-C [address] [place] [address] 08/08/2023 2:00 PM EDT Office [facility] [place] [address] Taty Tobar CRNP [address] [place] [address] 08/30/2023 2:00 PM EDT Office Visit Nephrology, [facility] [address] [place] [address] Eric Day MD [address] [place] [address] 10/03/2023 6:20 PM EDT Office Visit Family Practice [facility] [address] [place] [address] Chris Asencio DO [address] [place] [address] 11/07/2023 3:40 PM EDT Office Visit [facility] [address] [place] [address] Chris Asencio, [address] [place] [address] 02/06/2024 2:00 PM EDT Office Visit [facility] [place] [address] Taty Tobar CRNP [address] [place] [address] 02/28/2024 1:30 PM EDT Imaging Radiology [facility] 1st Floor, [place] [address] [facility] [place] [address] 03/05/2024 2:00 PM EDT Office Visit Ophthalmology, [facility] [address] [facility] [place] [address] Ernie Rivers, DO [address] [place] [address] Scheduled Procedures Name Priority Associated Diagnoses Date/Ti [...] Additional history exists CKD HGB USE SMARTSET 51732 05/06/202405/06, 05/06/2023, 01/24/2023, Additional history exists CKD PHOS USE SMARTSET 61903 05/06/202404/26, 01/10/2023, 09/06/2022, Additional history exists COLONOSCOPY-EVERY [...] Documents on File Type Date Recorded Patient Suede Brusher Expl anation POLST 10/20/2021 [place] OR [facility] FOR LIFE-SUSTAINING TREATMENT Latest Code Status on File Code Status Date Activated Date Inactivated Comments Full Code 03/30/2022 6:40 AM 03/30/2022 2:12 PM This order reflects the patients wishes and were consensually agreed upon. Question Answer Comments Discussion of Advance Directives occurred with: Patient Does the patient have a Living Will? No Does the patient have Health Care Power of Admissions Supervisor? No Care Teams Evs Tech Relationship Specialty Start Date End Date Chris Asencio DO [address] [place] [address] PCP - General Family Medicine 01/07/18 documented as of this encounter
--- OUTSIDE RECORDS SUMMARY | 2023-06-20 00:30 | External Medical Summary | Summary of Care ---
Author Name Unknown Organization [facility] Address [address] [place] [address] Phone [phone] Care Team Providers Care Setter Off Name Role Phone Luis M Chris Fabiananay Primary Care Provider Reason for Visit * Reason Onset Date Comments Advice 05/07/2023 Encounter Details Date Type Department Care Team (Late st Contact Info) Description 05/07/2023 Telephone Nephrology, [address] [phone] Services, Scheduling [address] [place] [address] Advice Allergies Active Allergy Reactions Criticality Noted [...] 1 Each 5 10/20/2020 Active Dexcom G6 Fruit Vendor DeviceIndications:Typ e 2 diabetes mellitus with stage 3a chronic kidney disease, with long-term current use of insulin ([facility]) Use as directed. 1 Each 1 10/20/2020 [...] DIRECTED 300 g 4 04/22/2023 Active Methscopolamine [place] 2.5 MG Oral TabletIndications:Irr itable bowel syndrome [...] Sanchez MD [facility] [place] Spinal pain 06/04/2014 02/02/2017 Type 2 diabetes [...] mRNA, LNP-s, No Pre serve, 2-Dose Series (Astaro) 09/09/2020,08/19/2020 Pneumococcal Conjugate Vacc, 13 Valent (Prevnar) 04/03/2018,10/17/2016 Pneumococcal Polysaccharide PPV23 (Pneumovax) 04/04/2019,11/04/2018,12/10/2006 Seasonal Influenza, PF, 6 M & above, IM , (FluLaval or Fluzone) 02/25/2020,02/05/2019,01/29/2018,04/16 Seasonal Influenza, Quadriva lent Hd (Fluzone Hd) 01/24/2023,03/01/2022,03/27/2021 Seasonal Influenza, Quadriva lent, No Preserve, IM 03/04/2020,02/25/2020,04/16/2016 Seasonal Influenza, Split, I IV3, With Preserve, Inj 01/27/2015,02/10/2014,03/12/2013,06/10,02/13/2011,03/01/2010,07/19/2009 ,04/19/2008,03/10/2007,04/12/2006,02/25 Seasonal Influenza, Trivalen t, High Dose, No [...] encounter Miscellaneous Notes * Telephone Encounter - Faby Milan LPN - 05/07/2023 11:36 AM EST Spoke with pt in regards to lab results. * Telephone Encounter - Ayesha Be OSA - 05/07/2023 11:00 AM EST Pt has concerns about lab work and would like a phone call to go over everything [phone] documented in this encounter Plan of Treatment Upcoming Encounters Date Type Department Care Team (Late st Contact Info) Description 05/09/2023 1:40 PM EST Office Visit [facility] [place] [address] Chris Asencio DO [address] [place] [address] 05/17/2023 10:00 AM EST Home Visit [facility] [address] [place] [address] Penny Parikh RN [address] [place] [address] 05/28/2023 11:30 AM EST Laboratory Laboratory, [place] [address] [place] [address] [place] [address] [place] [address] 06/03/2023 2:30 PM EST Office Visit Hematology/Oncology Misty Calderon [place] [address] [place] [address] Henok Stauffer MD [address] [place] [address] 06/07/2023 10:30 AM EST Office Visit Gastroenterology, [facility] [address] [place] [address] Geovanna Bahena CRNP [address] [place] [address] 06/11/2023 1:30 PM EST Office Visit Cardiology, [facility] [address] [facility] [place] [address] Sophy Sands PA-C [address] [place] [address] 06/28/2023 4:00 PM EST Telemedicine Orthopaedics [facility] [address] [place] [address] Carlos A Cid MD [address] [place] [phone] 07/05/2023 8:00 AM EST Office Visit Nutrition & Weight Management, [facility] [address] [place] [address] Iris Cerrato PA-C [address] [place] [address] 08/08/2023 2:00 PM EDT Office Visit Family Practice [facility] [address] [place] [address] Taty Tobar CRNP [address] [place] [address] 08/30/2023 2:00 PM EDT Office Visit Nephrology, [facility] [address] [place] [address] Eric Day MD [address] [place] [address] 10/03/2023 6:20 PM EDT Office Visit [facility] [address] [facility] [place] [address] Chris Asencio, DO [address] [place] [address] 11/07/2023 3:40 PM EDT Office Visit [facility] [address] [place] [address] Chris Asencio, DO [address] [place] [address] 02/06/2024 2:00 PM EDT Office Visit [facility] [address] [place] [address] Taty Tobar CRNP [address] [facility] [place] [address] 02/28/2024 1:30 PM EDT Imaging Radiology [facility] 1st Floor, [place] [address] [place] [address] 03/05/2024 2:00 PM EDT Office Visit Ophthalmology, [facility] [address] [place] [address] Ernie Rivers, DO [address] [place] [address] Scheduled Procedures Name Priority Associated Diagnoses Date/Ti [...] Additional history exists CKD HGB USE SMARTSET 89127 05/06/202405/06, 05/06/2023, 01/24/2023, Additional history exists CKD PHOS USE SMARTSET 09199 05/06/202404/26, 01/10/2023, 09/06/2022, Additional history exists COLONOSCOPY-EVERY [...] Documents on File Type Date Recorded 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 Question Answer Comments Discussion of Advance Directives occurred with: Patient Does the patient have a Living Will? No Does the patient have Health Care Power of Coating Technician? No Care Teams Setter Off Relationship Specialty Start Date End Date Chris Asencio DO [address] [place] [address] PCP - General Family Medicine 01/07/18 documented as of this encounter
--- OUTSIDE RECORDS SUMMARY | 2023-06-20 00:31 | External Medical Summary ---
Author Name Unknown Address Unknown Organization K01:[facility] [address] [facility] [place] [address] Laboratory Report Ordering Provider Test Date Status ERIKA HAWK 05/06/2023 16:36:23 Final Observation Date Value Abnormality Reference (Units ) Status SYNC LEUKOCYTES IN BLOOD BY AUTOMATED COUNT 05/06/2023 16:36:23 5.51 4.00-10.80 (K/uL) Final Segs 05/06/2023 16:36:23 67.3 40.0-75.0 (%) Final Lymphs % 05/06/2023 16:36:23 22.7 18.0-42.0 (%) Final Monos 05/06/2023 16:36:23 7.3 1.0-11.0 (%) Final Eosinophils 05/06/2023 16:36:23 1.8 0.0-6.0 (%) Final Basos 05/06/2023 16:36:23 0.5 0.0-2.0 (%) Final Immature Granulocyte, Percent 05/06/2023 16:36:23 0.4 0.0-2.0 (%) Final Absolute Segs 05/06/2023 16:36:23 3.71 1.80-7.70 (K/uL) Final Lymphs, absolute 05/06/2023 16:36:23 1.25 1.00-4.80 (K/ul) Final Monos, Abs 05/06/2023 16:36:23 0.40 0.00-1.10 (K/uL) Final Eos, Abs 05/06/2023 16:36:23 0.10 0.00-0.70 (K/uL) Final Basos, Abs 05/06/2023 16:36:23 0.03 0.00-0.20 (K/uL) Final Immature Granulocytes, Number 05/06/2023 16:36:23 0.02 0.00-0.20 (K/uL) Final Performing Location [facility] [place] [address]
--- OUTSIDE RECORDS SUMMARY | 2023-06-20 00:31 | External Medical Summary | Summary of Care ---
Author Name Unknown Organization [facility] Address [address] [place] [address] Phone [phone] Care Team Providers Care [place] Conservationist Name Role Phone Chris Asencio DO Primary Care Provider Reason for Visit * Reason Comments Follow Up Recheck "wants to di scuss shoulder surgery" Encounter Details Date Type Department Care Team (Late st Contact Info) Description 05/06/2023 3:20 PM EST Office Visit Nephrology, [facility] [address] [place] [address] Eric Day MD [address] [facility] [place] [address] Stage 3a chronic kidney disease (HCC)*; DAVONTE (acute kidney injury) (HCC); HTN, goal below 130/80 Allergies Active Allergy Reactions Criticality Noted Date [...] as of this encounter (statuses as of 05/06/2023) Medications Medication Sig Dispensed Refills Start Date [...] 1 Each 5 1 Active Dexcom G6 Silk Trimmer DeviceIndications:T ype 2 diabetes mellitus with stage [...] DIRECTED 300 g 4 3 Active Methscopolamine Cameron 2.5 MG Oral TabletIndications:I rritable bowel syndrome [...] as of this encounter (statuses as of 05/06/2023) Active Problems Patient Care Coordination No te [...] as of this encounter (statuses as of 05/06/2023) Resolved Problems Problem Noted Date Diagnosed Date [...] 06/04/2014 Overview: Signed 06/04/2014 Pranav Sanchez MD [facility] [place] Spinal pain 06/04/2014 02/02/2017 Type 2 diabetes [...] as of this encounter (statuses as of 05/06/2023) Immunizations Name Administration Dates Next Due COVID-19 mRNA, LNP-s, No Pre serve, 2-Dose Series ([employer]) 09/09/2020,08/19/2020 Pneumococcal Conjugate Vacc, 13 Valent (Prevnar) 04/03/2018,10/17/2016 Pneumococcal Polysaccharide PPV23 (Pneumovax) 04/04/2019,11/04/2018,12/10/2006 SEASONAL INFLUENZA, PF, 6 M & Above, IM , (FLULAVAL or FLUZONE) 02/25/2020,02/05/2019,01/29/2018,04/16 Seasonal Influenza, Quadriva lent Hd (Fluzone [...] Sign Reading Time Taken Comments Blood Pressure 106/60 05/06/2023 3:25 PM EST Pulse 66 05/06/2023 3:25 PM EST Temperature 36.4 C (97.6 F) 05/06/2023 3:25 PM ES T Respiratory Rate 18 05/06/2023 3:25 PM EST Oxygen Saturation 97% 05/06/2023 3:25 PM EST Inhaled Oxygen Concentration - - Weight 110.2 kg (243 lb) 05/06/2023 3:25 PM EST Height - - Body Mass Index 35.88 10/12/2022 2:18 PM EDT documented in this encounter Progress Notes * Eric Day MD - 05/06/2023 3:39 PM EST Chief Complaint Patient presents with Follow Up Recheck "wants to discuss shoulder surgery" HPI: 72/F with h/o Severe ARF peak creat 8+ in 04/2018 with high K ( sec to ATN in the setting of Polypharmacy drug overdose). Got better with iv fluids and no dialysis. Recent baseline creat normal.Last 2 BMP abnormal with creat 1.3 GFR 41. Has DM2 on insulin for 10+ years, obesity, lymphedema onChronic Lasix 40 , Primary Pulm HTN, Chronic NSAID/meloxicam--stopped just recently. Has Sig Psych problems too. ----was admitted in [facility] November 2022 and was discharged December 22. Admission was for sepsis respiratory failure acute renal failure with a peak creatinine of 13.3 BUNof 174 and a potassium of 6.6 !!!!. Summary of other hospital issues : [facility] 12/12/22 to 12/22/22 UTI, severe sepsis, DAVONTE, blood transfusion. Her Ozempic dose was increase to 2 mg and she had severe diarrhea about 10 days prior to admission. Urosepsis - Klebsiella pneumoniae, treated with IV flagyl and ceftriaxone Acute blood loss anemia EGD on 12/17 gastritis and esophageal candidiasis Hgb down from 10.7 on admission to 7 1 unit of PRBC + Fecal occult Protonix BID Fluconazole Outpatient colonoscopy planned Diarrhea C.diff colonization, CT abdo/pelvis colitis Ambulatory dysfunction Declined rehab, home PT/OT Since last visit ---no major health issues. She is back on lisinopril as well as Lasix. Feelsshe is back to her baseline She is making good urine and edema is going down. She has not restarted Ozempic yet. 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 Moderate persistent asthma without complication J45.40 Restless legs syndrome G25.81 Primary pulmonary hypertension (HCC) I27.0 Type 2 diabetes mellitus with diabetic nephropathy, with long-term current use of insulin ([facility]) E11.21, Z79.4 Ganglion cyst of volar aspect of left wrist M67.432 KATERIN (obstructive sleep apnea) G47.33 Medical marijuana use Z79.899 Major depressive disorder, recurrent, moderate ([facility]) F33.1 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 Persistent insomnia G47.00 Type 2 diabetes mellitus with stage 3a chronic kidney disease, with long-term current use of insulin ([facility]) E11.22, N18.31, Z79.4 KARI (generalized anxiety disorder) F41.1 PVC's (premature ventricular contractions) I49.3 PTSD (post-traumatic stress disorder) F43.10 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 1 Device 0 multivitamin (MVI) Tablet TAKE 1 TABLET BY MOUTH EVERY DAY FOR SUPPLEMENT 1 clonazePAM 0.5 MG Oral Tablet Take 1 Tablet by mouth 3 times a day as needed for Anxiety. Doxepin HCl 100 MG Oral Capsule (SINEquan) Take 150 mg by mouth at bedtime. Dexcom G6 Transmitter Use as directed. 1 Each 1 Dexcom G6 Sensor Use as directed. 1 Each 5 Dexcom G6 Silk Trimmer Device Use as directed. 1 Each 1 BD Pen Needle Mini U/F 31G X 5 MM (Insulin Pen Needle) USE DIRECTED WITH NOVOLOG 300 Each 1 Systane Complete 0.6 % Ophthalmic [...] by mouth every 8 hours as needed. Budesonide 0.5 MG/2ML Inhalation Suspension (Pulmicort) INHALE VIA NEBULIZER 1 VIAL IN THE MORNING AND 1 VIAL BEFORE BEDTIME 360 mL 2 EpiPen 2-Ronni 0.3 MG/0.3ML Injection Solution Auto-injector For a severe reaction: Place orange end against the outer thigh, press firmly, hold in place for 10 seconds and go to the Emergency room. 2 Each 3 Lisinopril 20 MG Oral Tablet (Prinivil) Take 1 Tablet by mouth in the morning. 90 Tablet 3 Diphenoxylate-Atropine 2.5-0.025 MG Oral Tablet (Lomotil) Take 2 Tablets by mouth every 6 hours as needed for Diarrhea. 30 Tablet 3 Breo Ellipta 100-25 MCG/ACT Inhalation Aerosol Powder Breath Activated (fluticasone furoate-vilanterol) INHALE 1 PUFF BY MOUTH EVERY DAY 180 Each 1 Pramipexole Dihydrochloride 1 MG Oral Tablet (Mirapex) Take 1 Tablet by mouth at bedtime. 90 Tablet3 Pantoprazole Sodium 40 MG Oral Tablet Delayed Release (Protonix) Take 1 Tablet by mouth in the morning and 1 Tablet before bedtime. 180 Tablet 3 Furosemide 40 MG Oral Tablet (Lasix) Take 1 Tablet by mouth in the morning and 1 Tablet before bedtime. for fluid accumulation or weight gain. 180 Tablet 11 Vitamin C 500 MG Oral Capsule Take 1 Capsule by mouth in the morning and 1 Capsule before bedtime. Ferrous Gluconate 240 (27 Fe) MG Oral Tablet (Ferate) Take 1 Tablet by mouth in the morning. Ozempic (0.25 or 0.5 MG/DOSE) 2 MG/3ML Solution Pen-injector (Semaglutide(0.25 or 0.5MG/DOS)) Inject 0.5 mg under the skin once a week. 9 mL 3 Toujeo SoloStar 300 UNIT/ML Subcutaneous Solution Pen-injector (Insulin Glargine (1 Unit Dial)) INJECT UNDER THE SKIN 20 units in am. NovoLOG FlexPen 100 UNIT/ML Subcutaneous Solution Pen-injector (insulin aspart) 4 units under the skin with breakfast Triamcinolone Acetonide 0.1 % External Cream (Aristocort) Apply to rash on body nightly as needed 30 g 0 Metoprolol Succinate ER 25 MG Oral Tablet Extended Release 24 Hour (toPROL XL) TAKE 1 TAB BY MOUTH EVERY MORNING AND ONE-HALF TAB AT BEDTIME. 135 Tablet 3 Atorvastatin Calcium 40 MG Oral Tablet (Lipitor) TAKE 1 TABLET BY MOUTH EVERY DAY IN THE MORNING 90Tablet 3 Famotidine 40 MG Oral Tablet (Pepcid) TAKE 1 TABLET BY MOUTH EVERY DAY 90 Tablet 3 Montelukast Sodium 10 MG Oral Tablet (Singulair) TAKE 1 TABLET BY MOUTH EVERY DAY 90 Tablet 3 Fluticasone Propionate 50 MCG/ACT Nasal Suspension (Flonase) Administer 2 Sprays into each nostril in the morning and 2 Sprays before bedtime. 48 mL 3 Diclofenac Sodium 1 % External Gel (Voltaren) PLACE 4 GRAMS TOPICALLY ON THE SKIN TWICE DAILY DIRECTED 300 g 4 Methscopolamine Cameron 2.5 MG Oral Tablet TAKE 1 TAB UP TO 3 TIMES DAILY NEEDED FOR ABDOMINAL CRAMPS & DIARRHEA, 270 Tablet 1 Estrogens Conjugated 0.625 MG/GM Vaginal Cream (Premarin) Administer 0.5 g into the vagina at bedtime. Do this 3 evenings per week 30 g 5 ONETOUCH DELICA LANCETS FINE MISC Use up to four times a day as directed DX E11.9 400 Each 3 Aspirin Low Dose 81 MG Oral Tablet Chewable (aspirin) CHEW 1 TABLET BY MOUTH EVERY DAY (Patient nottaking: Reported on 05/06/2023) 90 Tablet 1 OneTouch Verio In Vitro Strip (Glucose Blood) Use up to 3 times a day E11.9 400 Strip 5 OneTouch Verio Flex System Device Use 1 Device as directed every evening. Up to 4 times a day to check blood glucose E11.9 1 Each 0 OneTouch UltraSoft Lancets Use as directed 4 times a day. Use up to four times a day as directed tocheck blood glucose E 11.9 400 Each 5 Current Facility-Administered Medications Medication Dose Route Frequency Provider Last Rate Last Admin albuterol sulfate (PROVENTIL) (2.5 MG/3ML) 0.083% inhalation solution 2.5 mg 2.5 mg Nebulizer Q4H PRN Ernie Coker PA-C 2.5 mg at 08/22/18 1326 Past Medical History: Diagnosis Date Acute respiratory [...] (premature ventricular contractions) 10/14/2020 Sleep apnea, obstructive Past Surgical History: Procedure Laterality Date ANESTHESIA, CLOSED CHEST PROCEDURE Left 04/2001 Left video-assisted, lung/lymph node biopsy ARTHROPLASTY KNEE TOTAL 02/2015 L BREAST BIOPSY Right 10/21/2014 Benign BREAST BIOPSY Right 02/14/2022 ADH COLONOSCOPY 1999 COLONOSCOPY W/ BIOPSY (RECTUM) 12/17/2008 diverticulosis, stool aspirate,repeat in 5 yrs , random bx show no evidence of microscopic colitis COLONOSCOPY, DIAGNOSTIC (RECTUM) 12/07/2014 ischemic colitis, hyperplastic polyp, repeat 5 yrs/[facility] COLONOSCOPY, DIAGNOSTIC (RECTUM) 03/17/2021 poor prep/sigmoid diverticulosis/biopsies normal/recall 5 years/COLONOSCOPY FLEXIBLE PROXIMAL DIAGNOSTIC performed by Brittany Blackman MD at ENDOSCOPY [facility] EGD, FLEXIBLE, DIAGNOSTIC N/A 12/17/2022 esophageal plaques, suspicious for candidias/diffuse gastritis/biopsies confirm casie/EGD/PR EXC BREAST LESION RADMARK Right 03/30/2022 EXCISION OF BREAST LESION RADIOLOGICAL MARKER performed by Lila Mora MD at OR [facility] KNEE ARTHROSCOPY, DIAGNOSTIC 1989 Knee Arthroscopy REMOVE GALLBLADDER 1974 Cholecystectomy, Open TOTAL ABD HYSTERECTOMY W/WO REMOVAL OF TUBE(S) 1986 for endometriosis Review of patient's allergies indicates: Allergen Reactions [...] fatigue after medication. Melatonin Nervous , anxiety Family History Problem Relation Age of Onset Musculo-skeletal Disorder Mother severe osteoporosis, age 76 Diabetes Mother Cancer Father lung cancer Colon cancer Sister Uterine cancer Sister Diabetes Sister Diabetes Sister Diabetes Brother Family Status Relation Status Mo Fa at age 50 Lung Ca Sis at age 51 Colon CA Sis Alive Sis Alive Bro Alive Laura Alive Son Alive Bro at age 62 Social History Socioeconomic History Marital status: Spouse name: Igor Number of children: 2 Years of education: Not on file Highest education level: Not on file Occupational History Occupation: on disability Social Needs Financial resource strain: Not on file Food insecurity Worry: Never true Inability: Never true Transportation needs Medical: Not on file Non-medical: Not on file Tobacco Use Smoking status: Never Smoker Smokeless tobacco: Never Used Substance and Sexual Activity Alcohol use: No Drug use: No Sexual activity: Never Lifestyle Physical activity Days per week: Not on file Minutes per session: Not on file Stress: Not on file Relationships Social connections Talks on phone: Not on file Gets together: Not on file Attends episcopal service: Not on file Active member of club or organization: Not on file Attends meetings of clubs or organizations: Not on file Relationship status: Not on file Intimate partner violence Fear of current or ex partner: Not on file Emotionally abused: Not on file Physically abused: Not on file Forced sexual activity: Not on file Other Topics Concern Service Not Asked Blood Transfusions Yes Comment: plasma after hysterectomy Caffeine Concern Not Asked Occupational Exposure Not Asked Hobby Hazards Not Asked Sleep Concern Yes Comment: due to pain in neck Stress Concern Yes Comment: pain Weight Concern No Special Diet Yes Comment: bland diet, allergic to shellfish Back Care Not Asked Exercise Not Asked Bike Helmet Not Asked Seat Belt Yes Self-Exams Not Asked Social History Narrative Not on file Vaping/E-Cigarette Use Vaping/E-Cigarette Use Current Every Day User Comments uses every night to help with pain Vaping/E-Cigarette Substances Nicotine No Other No Flavoring No THC Yes Cannabidiol (CBD) No Vaping/E-Cigarette Devices Disposable Yes Review of Systems: 12 systems reviewed and negative OBJECTIVE:Physical Exam: BP 106/60 (BP Site: Right Arm, BP Position: Sitting) | Pulse 66 | Temp 36.4 C (97.6 F) (Tympanic) | Resp 18 | Wt 110.2 kg (243 lb) | SpO2 97% | BMI 35.88 kg/m | BSA 2.32 m MM-moist. No JVD Chest CTA CVS---RRR Abd--Soft non tender Ext--1+ edema. NEPH-FLOW Latest Ref Rng & Units 10/30/2019 11/13/2019 05/24/2020 Bun 6 - 20 mg/dL 20 19 Cr 0.5 - 1.0 mg/dL 1.1 (H) 1.0 eGFR >=60.0 mL/min eGFR >60 54.3 (L) 57.8 (L) K 3.5 - 5.1 mmol/L 4.4 4.0 Hb 12.0 - 15.3 g/dL 13.8 13.1 Microalb/cr ratio <30 mg/g Creat NEPH-FLOW Latest Ref Rng & Units 09/22/2020 11/01/2020 11/15/2020 Bun 6 - 20 mg/dL 25 (H) 38 (H) Cr 0.5 - 1.0 mg/dL 1.4 (H) 1.3 (H) eGFR >=60.0 mL/min 39.0 (L) 41.5 (L) eGFR >60 K 3.5 - 5.1 mmol/L 4.6 4.9 Hb 12.0 - 15.3 g/dL Microalb/cr ratio <30 mg/g Creat <10 NEPH-FLOW Latest Ref Rng & Units 12/27/2020 03/27/2021 08/23/2021 Bun 6 - 20 mg/dL 17 16 16 Cr 0.5 - 1.0 mg/dL 0.9 1.0 1.0 eGFR >=60 mL/min 69.6 62 60 eGFR >60 K 3.5 - 5.1 mmol/L 5.1 4.7 4.3 Hb 12.0 - 15.3 g/dL 14.8 14.5 Pro/Cr ratio <150 mg/g 70 Microalb/cr ratio <30 mg/g creat Stage 3a chronic kidney disease (HCC) (Primary) CKD stage 3 with somewhat fluctuating creatinine given multiple episodes of acute renal failure of severe type She has been stable now for many months so blood work we have today could be regarded as her baseline Etiology of underlying CKD multifactorial with hypertension diabetes repeated acute renal failure with partial recovery No edema on current dose of Lasix plus she also uses compression stockings - CBC WITH WBC DIFFERENTIAL; Future; Expected date: 05/06/2023 - PTH; Future; Expected date: 05/06/2023 - PROTEIN/ CREATININE RATIO, URINE; Future; Expected date: 05/06/2023 - RENAL FUNCTION PANEL; Future; Expected date: 05/06/2023 - URINALYSIS WITH MICROSCOPIC EXAM; Future; Expected date: 05/06/2023 - IRON SCREEN, INCLUDING TIBC; Future; Expected date: 05/06/2023 DAVONTE (acute kidney injury) (HCC) H/o Severe DAVONTE 2 times. November 2022 peak creatinine of 13 and previous episode in 2018 with a peak creatinine of 8.8. Both time caused by sepsis with ATN and recovered without dialysis HTN, goal below 130/80 Bp is at goal. Continue same. Follow Up: Return in about 6 months (around 11/05/2023). Eric Day MD documented in this encounter Nursing Notes * Milind Lee LPN - 05/06/2023 3:20 PM EST Chief Complaint Patient presents with Follow Up Recheck "wants to discuss shoulder surgery" documented in this encounter Plan of Treatment Upcoming Encounters Date Type Department Care Team (Late st Contact Info) Description 05/09/2023 1:40 PM EST Office Visit [facility] [address] [facility] [place] [address] Chris Asencio DO [address] [place] [address] 05/17/2023 10:00 AM EST Home Visit [facility] [place], [facility] [address] [place] [address] Penny Parikh RN [address] [place] [address] 05/28/2023 11:30 AM EST Laboratory Laboratory, [place] [address] [facility] [place] [id number] [place], Laboratory [address] [place] [address] 06/03/2023 2:30 PM EST Office Visit Hematology/Oncology [facility] [place] [address] [place] [address] Henok Stauffer MD [address] [place] [address] 06/07/2023 10:30 AM EST Office Visit Gastroenterology, [facility] [address] [facility] [place] [address] Geovanna Bahena CRNP [address] [place] [address] 06/11/2023 1:30 PM EST Office Visit Cardiology, [facility] [address] [facility] [place] [address] Sophy Sands [place] [address] [place] [address] 06/28/2023 4:00 PM EST Telemedicine Orthopaedics [facility] [address] [facility] [place] [address] Carlos A Cid MD [address] [place] [phone] 07/05/2023 8:00 AM EST Office Visit Nutrition & Weight Management, [facility] [address] [facility] [place] [address] Iris Cerrato PA-C [address] [place] [address] 08/08/2023 2:00 PM EDT Office Visit Family Practice [facility] [address] [place] [address] Taty Tobar CRNP [address] [place] [address] 08/30/2023 2:00 PM EDT Office Visit Nephrology, [facility] [address] [place] [address] Eric Day MD [address] [place] [address] 10/03/2023 6:20 PM EDT Office Visit [facility] [address] [facility] [place] [address] Chris Asencio, DO [address] [place] [address] 11/07/2023 3:40 PM EDT Office Visit [facility] [address] [facility] [place] [address] Chris Asencio, DO [address] [place] [address] 02/06/2024 2:00 PM EDT Office Visit [facility] [address] [facility] [place] [address] Taty Tobar CRNP [address] [facility] [address] 02/28/2024 1:30 PM EDT Imaging Radiology [facility] 1st Floor, [place] [address] [facility] [place] [address] 03/05/2024 2:00 PM EDT Office Visit Ophthalmology, [facility] [address] [facility] [place] [address] Ernie Rivers, DO [address] [place] [address] Scheduled Orders Name Type Priority Associated Diagnoses Orde r Schedule CBC WITH WBC DIFFERENTIAL Lab Routine Stage 3a chronic kidney disease (HCC) Expected: 05/06/2023 (Approximate), Expires: 11/02/2023 PTH Lab Routine Stage 3a chronic kidney disease (HCC) Expected: 05/06/2023 (Approximate), Expires: 11/02/2023 PROTEIN/ CREATININE RATIO, URINE Lab Routine Stage 3a chronic kidney disease (HCC) Expected: 05/06/2023 (Approximate), Expires: 11/02/2023 RENAL FUNCTION PANEL Lab Routine Stage 3a chronic kidney disease (HCC) Expected: 05/06/2023 (Approximate), Expires: 11/02/2023 URINALYSIS WITH MICROSCOPIC EXAM Lab Routine Stage 3a chronic kidney disease (HCC) Expected: 05/06/2023 (Approximate), Expires: 11/02/2023 IRON SCREEN, INCLUDING TIBC Lab Routine Stage 3a chronic kidney disease (HCC) Expected: 05/06/2023 (Approximate), Expires: 11/02/2023 Scheduled Procedures Name Priority Associated Diagnoses Date/Ti me COLONOSCOPY FLEXIBLE PROXIMA L DIAGNOSTIC Recall Family history of colon cancer Health Maintenance Due Date Last Done Comments Hepatitis B (1 of 3 - Risk 3-dose series) 2012 Zoster Vaccines (2 of 3) 05/07/2013 03/12/2013 Diabetic Foot Exam 05/23/2021 05/23/2020, 1 06/06/2018, 06/05/2018, Additional history exists COVID-19 Vaccine ( season) 2023 09/09/2020, 08/19/2020 GFR 07/25/2023 01/24/2023, 12/25, 01/03/2023, Additional history exists Depression Screening 10/13/2023 10/12/2022 HbA1c 10/23/2023 04/24/2023, 08/05/2022, 09/06/2022, Additional history exists CKD PHOS USE SMARTSET 57136 01/11/202412/25, 09/06/2022, 03/01/2022, Additional history exists Albumin/Creatinine Ratio 01/25/202401/24/ 023, 09/06/2022, 11/24/2021, Additional history exists CKD HGB USE SMARTSET 37767 01/25/202401/24, 01/24/2023, 01/10/2023, Additional history exists Diabetic Eye Exam 02/22/2024 02/21/2023, , 02/21/2023, Additional history exists Mammogram 02/27/2024 02/26/2023, 12/26, 01/02/2022, Additional history exists COLONOSCOPY-EVERY 5 YRS AGES [...] as of this encounter Visit Diagnoses Diagnosis Stage 3a chronic kidney disease (HCC)- Primary DAVONTE (acute kidney injury) (HCC) Acute kidney failure, unspecified HTN, goal below 130/80 Unspecified essential hypertension documented in this encounter Advance Directives Documents on File Type Date Recorded 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 Question Answer Comments Discussion of Advance Directives occurred with: Patient Does the patient have a Living Will? No Does the patient have Health Care Power of Pharmacy Informaticist? No Care Teams Grass[employer] Conservationist Relationship Specialty Start Date End Date Chris Asencio DO [address] [place] [address] PCP - General Family Medicine 01/07/18 documented as of this encounter
--- OUTSIDE RECORDS SUMMARY | 2023-06-20 00:31 | External Medical Summary | Summary of Care ---
Author Name Unknown Organization [facility] Address [address] [place] [address] Phone [phone] Care Team Providers Care Edger Technician Name Role Phone Chris Asencio DO Primary Care Provider Reason for Visit * Reason Comments Outpatient Testing Encounter Details Date Type Department Care Team (Late st Contact Info) Description 05/06/2023 11:10 AM EST Laboratory Laboratory Scenery [facility] [address] [place] [address] [facility] [address] [place] [address] Stage 3a chronic kidney disease (HCC) Allergies Active Allergy [...] 1 Each 5 10/20/2020 Active Dexcom G6 Partner Marketing Manager DeviceIndications:Typ e 2 diabetes mellitus with [...] DIRECTED 300 g 4 04/22/2023 Active Methscopolamine [place] 2.5 MG Oral TabletIndications:Irr itable bowel syndrome [...] Signed 06/04/2014 Pranav Sanchez MD [facility] [place] Spinal pain 06/04/2014 02/02/2017 Type 2 diabetes [...] mRNA, LNP-s, No Pre serve, 2-Dose Series ([employer] 09/09/2020,08/19/2020 Pneumococcal Conjugate Vacc, 13 Valent (Prevnar) [...] 1:40 PM EST Office Visit Family Practice [facility] [address] [place] [address] Chris Asencio DO [address] [place] [address] 05/17/2023 10:00 AM EST [facility] [address] [place] [address] Penny Parikh RN [address] [place] [address] 05/28/2023 11:30 AM EST Laboratory Laboratory, [place] [address] [place] [phone] [facility] [address] [place] [address] 06/03/2023 2:30 PM EST Office Visit Hematology/Oncology [facility] [address] [facility] [place] [address] Henok Stauffer MD [address] [facility] [place] [address] 06/07/2023 10:30 AM EST Office Visit [facility]ology, [facility] [place] [address] Geovanna Bahena CRNP [address] [place] [address] 06/11/2023 1:30 PM EST Office Visit Cardiology, [facility] [place] [address] Sophy Sands PA-C [address] [place] [address] 06/28/2023 4:00 PM EST Telemedicine Orthopaedics [facility] [address] [place] [address] Carlos A Cid MD [address] [place] [phone] 07/05/2023 8:00 AM EST Office Visit Nutrition & Weight Management, [facility] [address] [place] [address] Iris Cerrato PA-C [address] [place] [address] 08/08/2023 2:00 PM EDT Office Visit Family Practice [facility] [address] [place] [address] Taty Tobar CRNP [address] [place] [address] 08/30/2023 2:00 PM EDT Office Visit Nephrology, [facility] [address] [facility] [place], [place] [address] Erci Day MD [address] [facility] [place], [place] [address] 10/03/2023 6:20 PM EDT Office Visit Family [facility] [address] [place] [address] Chris Asencio, [address] [place] [address] 11/07/2023 3:40 PM EDT Office Visit Family [facility] [address] [place] [address] Chris Asencio, DO [address] [place] [address] 02/06/2024 2:00 PM EDT Office Visit Family Practice [facility] [address] [place] [address] Taty Tobar CRNP [address] [place] [address] 02/28/2024 1:30 PM EDT Imaging [facility] [address] [facility] [place] [address] 03/05/2024 2:00 PM EDT Office Visit Ophthalmology, [facility] [address] [facility] [place] [address] Ernie Rivers, DO [address] [facility] [place] [address] Pending Results Name Type Priority Associated Diagnoses Date /Time CBC WITH WBC DIFFERENTIAL Lab Routine Stage 3a chronic kidney disease (HCC) 05/06/2023 4:36 PM EST PTH Lab Routine Stage 3a chronic kidney disease (HCC) 05/06/2023 4:36 PM EST PROTEIN/ CREATININE RATIO, URINE Lab Routine Stage 3a chronic kidney disease (HCC) 05/06/2023 4:36 PM EST RENAL FUNCTION PANEL Lab Routine Stage 3a chronic kidney disease (HCC) 05/06/2023 4:36 PM EST URINALYSIS WITH MICROSCOPIC EXAM Lab Routine Stage 3a chronic kidney disease (HCC) 05/06/2023 4:36 PM EST IRON SCREEN, INCLUDING TIBC Lab Routine Stage 3a chronic kidney disease (HCC) 05/06/2023 4:36 PM EST CBC Lab Routine Stage 3a chronic kidney disease (HCC) 05/06/2023 4:36 PM EST DIFFERENTIAL, AUTOMATED Lab Routine Stage 3a chronic kidney disease (HCC) 05/06/2023 4:36 PM EST Scheduled Procedures Name Priority Associated [...] (3 - 2022- season) 2023 09/09/2020, 08/19/2020 GFR 07/25/2023 01/24/2023, 12/25, 01/03/2023, Additional history exists Depression Screening 10/13/2023 10/12/2022 HbA1c 10/23/2023 04/24/2023, 12/27, 09/06/2022, Additional history exists CKD PHOS USE SMARTSET 62289 01/11/202412/25, 09/06/2022, 03/01/2022, Additional history exists Albumin/Creatinine Ratio 01/25/2024 023, 09/06/2022, 11/24/2021, Additional history exists CKD HGB USE SMARTSET 67235 01/25/202401/24, 01/24/2023, 01/10/2023, Additional history exists Diabetic Eye Exam 02/22/2024 02/21/2023, , 02/21/2023, Additional history exists Mammogram 02/27/2024 02/26/2023, 12/26, 01/02/2022, Additional history exists COLONOSCOPY-EVERY 5 YRS AGES 18-100 03/17/2026 03/17/2021, 03/17/2021, 12/07/2014, Additional history exists DTaP,Tdap,and Td Vaccines (3 - Td or Tdap) 04/16/2026 04/16/2016, 04/12/2006 Lipid Panel 01/25/2028 01/24/2023, 08/25, 03/01/2022, Additional history exists DXA Scan 08/22/2031 08/21/2022, 01/0 10/2019, 01/19/2008 Pneumococcal Vaccine: 65+ Years Completed [...] Diagnoses Diagnosis Stage 3a chronic kidney disease (HCC) documented in this encounter Advance Directives Documents on File Type Date Recorded 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 Question Answer Comments Discussion of Advance Directives occurred with: Patient Does the patient have a Living Will? No Does the patient have Health Care Power of Cable Ferryboat Operator? No Care Teams Edger Technician Relationship Specialty Start Date End Date Chris Asencio DO [address] [place] [address] PCP - General Family Medicine 01/07/18 documented as of this encounter
--- OUTSIDE RECORDS SUMMARY | 2023-06-20 00:31 | External Medical Summary | Summary of Care ---
Author Name Unknown Organization [facility] Address [address] [place] [address] Phone [phone] Care Team Providers Care Apple Peeler Operator Name Role Phone Chris Asencio DO Primary Care Provider Reason for Referral * Evaluate & Treat - Unlimited Visits (Within 10 days (routine)) - Authorized Specialty Diagnoses / Procedures Referred By Kristin mayer Referred To Contact Physical Therapy / Physical Medicine And Rehab Diagnoses Glenohumeral arthritis, left Carlos A Cid MD [address] [place] [phone] Referral ID Status Reason Start Date Expiration Date Visits Requested Visits Authorized [id number] Authorized Specialty Services Required 05/02/[phone] Question Answer Referral Priority Within 10 days (routine) Where should this appointment be scheduled? [facility] Comments Left shoulder glenohumeral arthritis Deep massage ROM, ADLs 2x week for 4-6 weeks Reason for Visit * Reason Comments Joint Pain Left shoulder * Evaluate & Treat - Unlimited Visits (Within 10 days (routine)) - Authorized Specialty Diagnoses / Procedures Referred By Kristin mayer Referred To Contact Orthopaedic Surgery / Orthopedics Diagnoses Chronic left shoulder pain Chris Asencio DO [address] [place] [address] Referral ID Status Reason Start Date Expiration Date Visits Requested Visits Authorized [id number] Authorized Specialty Services Required [phone] Encounter Details Date Type Department Care Team (Late st Contact Info) Description 05/02/2023 2:00 PM EST Office Visit Orthopaedics [facility] [address] [place] [address] Carlos A Cid MD [address] [place] [phone] Glenohumeral arthritis, left*; Type 2 diabetes mellitus with stage 3a chronic kidney disease, with long-term current use of insulin (HCC); Chronic kidney disease, stage 3b (HCC) Allergies Active Allergy Reactions Criticality Noted Date Comments Pioglitazone Hydrochloride Rash 03/01/2010 Amaryl 01/02/2007 Sulfamethoxazole-Trimet hoprim Other (Please comment) 02/16/2021 Headache reported Bismuth Nausea/vomiting 03/01/2022 Codeine Itching 08/05/2013 Colestipol Hcl 05/05/2015 Rash Rosuvastatin Itching,Rash 04/16/2016 Diphenhydramine Hcl 09/09/2007 Doxycycline [...] as of this encounter (statuses as of 05/02/2023) Medications Medication Sig Dispensed Refills Start Date End Date Status Spacer/Aero-Holding Chambers DEVIIndications:Moder ate persistent asthma without complication Use with inhaler. 1 Device 0 07/10/2018 Active multivitamin (MVI) Tablet TAKE 1 TABLET BY MOUTH EVERY DAY FOR SUPPLEMENT 1 09/17/2018 Active ONETOUCH DELLALO LANCYVONNE FINE MISC Use up to four times [...] disease, with long-term current use of insulin ([facility]) Use as directed. 1 Each 1 10/20/2020 Active Dexcom G6 SensorIndications:Typ e 2 diabetes mellitus with stage 3a chronic kidney disease, with long-term current use of insulin ([facility]) Use as directed. 1 Each 5 10/20/2020 Active Dexcom G6 Eyeglass Lens Grinder DeviceIndications:Typ e 2 diabetes mellitus with stage 3a chronic kidney disease, with long-term current use of insulin ([facility]) Use as directed. 1 Each 1 10/20/2020 [...] EVERY DAY 90 Tablet 1 09/22/2021 Active Budesonide 0.5 MG/2ML Inhalation Suspension (Pulmicort)Indication [...] the morning. 90 Tablet 3 09/06/2022 Active Prochlorperazine Maleate 10 MG Oral Tablet (Compazine)Indication s:Gastroesophageal reflux disease with esophagitis without hemorrhage,Irritable bowel syndrome, unspecified type TAKE 1 TABLET BY MOUTH EVERY 6 HOURS NEEDED FOR NAUSEA 30 Tablet 0 09/06/2022 Active Additional Information Patient not taking.Reported on 02/01/2023 Diphenoxylate-Atropin e 2.5-0.025 MG Oral Tablet (Lomotil)Indications: Irritable bowel syndrome with diarrhea Take 2 Tablets by mouth every 6 hours as needed for Diarrhea. 30 Tablet 3 09/06/2022 Active Breo Ellipta 100-25 MCG/ACT Inhalation Aerosol Powder Breath Activated (fluticasone furoate-vilanterol)In dications:Moderate persistent asthma without complication INHALE 1 PUFF BY MOUTH EVERY DAY 180 Each 09/13/2022 Active Pramipexole Dihydrochloride 1 MG Oral [...] as needed 30 g 0 04/15/2023 Active predniSONE 20 MG Oral Tablet (Deltasone)Indication s:Type 2 diabetes mellitus with stage 3b chronic kidney disease, with long-term current use of insulin ([facility]) Take 2 Tablets by mouth in the morning. 10 Tablet 0 04/15/2023 Active OneTouch Verio In Vitro Strip (Glucose Blood)Indications:Typ e 2 diabetes mellitus with stage 3b chronic kidney disease, with long-term current use of insulin ([facility]) Use up to 3 times a day E11.9 400 Strip 5 04/17/2023 Active OneTouch Verio Flex System DeviceIndications:Typ e 2 diabetes mellitus with stage 3b chronic kidney disease, with long-term current use of insulin ([facility]) Use 1 Device as directed every evening. Up to 4 times a day to check blood glucose E11.9 1 Each 0 04/17/2023 Active OneTouch UltraSoft LancetsIndications:Ty pe 2 diabetes mellitus with stage 3b chronic kidney disease, with long-term current use of insulin ([facility]) Use as directed 4 times a day. [...] DIRECTED 300 g 4 04/22/2023 Active Methscopolamine [place] 2.5 MG Oral TabletIndications:Irr itable bowel syndrome [...] as of this encounter (statuses as of 05/02/2023) Active Problems Patient Care Coordination No te [...] as of this encounter (statuses as of 05/02/2023) Resolved Problems Problem Noted Date Diagnosed Date [...] Overview: Signed 06/04/2014 Pranav Sanchez MD [facility] [place] Spinal pain 06/04/2014 02/02/2017 Type 2 diabetes [...] as of this encounter (statuses as of 05/02/2023) Immunizations Name Administration Dates Next Due COVID-19 mRNA, LNP-s, No Pre serve, 2-Dose Series (eROI) 09/09/2020,08/19/2020 Pneumococcal Conjugate Vacc, 13 Valent (Prevnar) [...] as of this encounter Progress Notes * Carlos A Cid MD - 05/02/2023 2:40 PM EST CHIEF COMPLAINT: Chief Complaint Patient presents with Joint Pain Left shoulder Impression: M19.012 Glenohumeral arthritis, left (primary encounter diagnosis) E11.22,N18.31,Z79.4 Type 2 diabetes mellitus with stage 3a chronic kidney disease, with long-term current use of insulin (HCC) N18.32 Chronic kidney disease, stage 3b (HCC) Recent treatment of sepsis in the ICU at [facility] 3 months ago Plan: We discussed the diagnosis and treatment options with the patient today. We discussed the patient'streatment options with the left shoulder arthritis. Considering the patient's comorbidities and recent history of being in the ICU for sepsis we recommend course of conservative management. Patient would benefit from a course of physical therapy. We instructed her on the use of ice and avoidance of heat for her left shoulder. Patient will continue with the Voltaren gel anti-inflammatory cream that she uses for her knees. We would not recommend cortisone injections at this time secondary to her recent history of sepsis and UTIs. Follow Up: Return in about 8 weeks (around 06/27/2023) for Telephone Visit. | For: Telephone Visit. If her infection history stabilizes and she continues to have shoulder pain she may benefit from seeing non operative sports medicine for ultrasound-guided injection to the glenohumeral joint. There are no Patient Instructions on file for this visit. HISTORY OF PRESENT ILLNESS: Liane Alejandre is a 73 year old right hand dominant female who presents to orthopedic Sports Medicine for consultation at the request of Chris Asencio DO to us with a history of left shoulder pain . Patient states that she started having left shoulder pain and proximally 3 weeks ago. He feels it may be related to doing her crocheting and with using heat on the shoulder. States she has difficulty with raising the arm above her head. She denies any recent trauma. Of note patient was in the ICU 3 months ago and underwent treatment for sepsis. She states she is currently dealing with frequent UTIs. Patient also has history of diabetes and stage 3 kidney disease. Patient states that she does have pain down the arm to the elbow. She also complains of pain aroundthe shoulder blade. Wakes at night? no. Physical Therapy? no. Injections? no. Nursing Notes: Tatiana Robertson LPN 05/02/[address] Chris Asencio for left shoulder pain X 1 month much worse. Pt is RHD. Tatiana Auugstin LPN Past Surgical History: Procedure Laterality Date ANESTHESIA, [...] 12/07/2014 ischemic colitis, hyperplastic polyp, repeat 5 yrs/[facility] COLONOSCOPY, DIAGNOSTIC (RECTUM) 03/17/2021 poor prep/sigmoid diverticulosis/biopsies normal/recall 5 years/COLONOSCOPY FLEXIBLE PROXIMAL DIAGNOSTIC performed by Brittany Blackman MD at ENDOSCOPY [facility] EGD, FLEXIBLE, DIAGNOSTIC N/A 12/17/2022 esophageal plaques, suspicious for candidias/diffuse gastritis/biopsies confirm casie/EGD/[place] EXC BREAST LESION RADMARK Right 03/30/2022 EXCISION OF BREAST LESION RADIOLOGICAL MARKER performed by Lila Mora MD at OR [facility] KNEE ARTHROSCOPY, DIAGNOSTIC 1989 Knee Arthroscopy REMOVE [...] Nausea/vomiting Codeine Itching Colestid [Colestipol Hcl] Rash Crestor [Rosuvastatin] Itching and Rash Diphenhydramine Hcl [...] fatigue after medication. Melatonin Nervous , anxiety Current Outpatient Medications Medication Sig Dispense Refill Spacer/Aero-Holding Chambers LAURA Use with inhaler. 1 Device 0 multivitamin (MVI) Tablet TAKE 1 TABLET BY MOUTH EVERY DAY FOR SUPPLEMENT 1 ONETOUCH DELICA LANCETS FINE MISC Use up to four times a day as directed DX E11.9 400 Each 3 clonazePAM 0.5 MG Oral Tablet Take 1 Tablet by mouth 3 times a day as needed for Anxiety. Doxepin HCl 100 MG Oral Capsule (SINEquan) Take 150 mg by mouth at bedtime. Dexcom G6 Transmitter Use as directed. 1 Each 1 Dexcom G6 Sensor Use as directed. 1 Each 5 Dexcom G6 Eyeglass Lens Grinder Device Use as directed. 1 Each 1 [...] by mouth every 8 hours as needed. Aspirin Low Dose 81 MG Oral Tablet Chewable (aspirin) CHEW 1 TABLET BY MOUTH EVERY DAY 90 Tablet 1 Budesonide 0.5 MG/2ML Inhalation Suspension (Pulmicort) INHALE [...] mouth in the morning. 90 Tablet 3 Prochlorperazine Maleate 10 MG Oral Tablet (Compazine) TAKE 1 TABLET BY MOUTH EVERY 6 HOURS NEEDED FOR NAUSEA (Patient not taking: Reported on 02/01/2023) 30 Tablet 0 Diphenoxylate-Atropine 2.5-0.025 MG Oral Tablet (Lomotil) Take [...] body nightly as needed 30 g 0 predniSONE 20 MG Oral Tablet (Deltasone) Take 2 Tablets by mouth in the morning. 10 Tablet 0 OneTouch Verio In Vitro Strip (Glucose Blood) Use up to 3 times a day E11.9 400 Strip 5 OneTouch Verio Flex System Device Use 1 Device as directed every evening. Up to 4 times a day to check blood glucose E11.9 1 Each 0 OneTouch UltraSoft Lancets Use as directed 4 times a day. Use up to four times a day as directed [facility] blood glucose E 11.9 400 Each 5 Metoprolol Succinate ER 25 MG Oral Tablet [...] TWICE DAILY DIRECTED 300 g 4 Methscopolamine [place] 2.5 MG Oral Tablet TAKE 1 TAB UP TO 3 TIMES DAILY NEEDED FOR ABDOMINAL CRAMPS & DIARRHEA, 270 Tablet 1 Estrogens Conjugated 0.625 MG/GM Vaginal Cream (Premarin) Administer 0.5 g into the vagina at bedtime. Do this 3 evenings per week 30 g 5 Current Facility-Administered Medications Medication Dose Route Frequency Provider Last Rate Last Admin albuterol sulfate (PROVENTIL) (2.5 MG/3ML) 0.083% inhalation solution 2.5 mg 2.5 mg Nebulizer Q4H PRN Ernie Coker PA-C 2.5 mg at 08/22/18 1326 Social History Socioeconomic History Marital status: Spouse name: Igor Number of children: 2 Occupational History Occupation: on disability Tobacco Use Smoking status: Never Smokeless tobacco: Never Tobacco comments: Vape THC every night to help with pain to sleep Vaping Use Vaping Use: Every day Substances: THC Devices: Disposable Substance and Sexual Activity Alcohol use: No Drug use: No Sexual activity: Never Other Topics Concern Blood Transfusions Yes Comment: plasma after hysterectomy Sleep Concern Yes Comment: due to pain in neck Stress Concern Yes Comment: pain Weight Concern No Special Diet Yes Comment: bland diet, allergic to shellfish Seat Belt Yes Social Determinants of Health Food Insecurity: No Food Insecurity (10/12/2022) Hunger Vital Sign Worried About Running Out of Food in the Last Year: Never true Ran Out of Food in the Last Year: Never true Family History Problem Relation Age of Onset Musculo-skeletal Disorder Mother severe osteoporosis, age 76 Diabetes Mother Cancer Father lung cancer Colon cancer Sister Uterine cancer Sister Diabetes Sister Diabetes Sister Diabetes Brother Past Medical History: Diagnosis Date Acute respiratory [...] (premature ventricular contractions) 10/14/2020 Sleep apnea, obstructive ROS: Constitional: No change in weight, No weakness, No fatigue, and No fevers, sweats, or chills Skin: No edema, No rash, and No itching Psychiatric: No depression, No anxiety, and No psychosis Xray: I personally reviewed the xrays. Patient underwent x-rays of the left shoulder today. Those x-rays show evidence of concentric wear of the glenohumeral joint consistent with moderate to severe glenohumeral DJD. There is evidence of multiple loose chondral bodies most likely in the subdeltoid and bicipital space. No evidence of fracture. No evidence dislocation. PHYSICAL EXAM: General: generally well-nourished and in no acute distress HEENT: normocephalic, atraumatic, EOMI, sclera anicteric. Psych: mood and affect normal , cooperative Card: Peripheral pulses: normal in affected extremity (s) Resp: equal chest rise, non-tachypneic, non-labored breathing Skin: no rash, normal Neuro: Coordination: normal; Sensation: normal on affected extremity (s) Skin: normal. C-Spine evaluation: Does patient have neck symptoms and/or numbness/tingling in upper extremities: no Inspection: bilateral and symmetrical without apparent abnormality Shoulder ROM: ABD (170') - Right - 170 degrees Left - 140 degrees ER (40') - Bilateral and equal Passive ER -Bilateral and equal IR (T10) - right T12 left T12 FF (180') - Right - 150 degrees Left - 140 degrees Scapular elevation with forward flexion:negativeBilateral Tenderness/Location: yes - SS , AC , and Traps/Levs Inspection AC Joint Prominence: normal Cross-arm maneuver: positive Impingement sign: positive Sulcus sign: negative Lift-off test: negative Apprehension:negative [place]'s test: negative Load and shift: negative Speed's test: negative Drop-arm test: negative Instability Testing: Shoulder instability testing: normal bilaterally negative scapular winging negative scapular dyskinesis Strength: ABD: Right - 5/5 Left - 5/5 ER: Right - 5/5 Left - 5/5 IR: Right - 5/5 Left - 5/5 Biceps: Right - 5/5 Left - 5/5 "Empty can": Right - 5/5 Left - 5/5 Neurovascular assessment: negative for deficit Neck ROM: Extension 10 Flexion to the chest Spurlings test: Right negative Left negative Lateral bending and rotation pain: right negative left negative TTP: negative Ligamentous laxity testing: negative Bilateral Carlos A Cid MD Orthopaed[facility] [address] [facility] [place] [address] Orthopedic Sports Medicine Surgery 05/02/2023 2:40 PM This chart was completed in part utilizing [employer] Speech Voice Recognition Software. Grammatical errors, random word insertions, pronoun errors, and incomplete sentences are an occasional consequence of this system due to software limitations, ambient noise, and hardware issues. Any formal questions or concerns about the content, text, or information contained within the body of this dictation should be directly addressed to the provider for clarification. documented in this encounter Nursing Notes * Tatiana Robertson LPN - 05/02/2023 1:24 PM EST Referred by Dr Chris Asencio for left shoulder pain X 1 month much worse. Pt is RHD. Tatiana Augustin LPN documented in this encounter Plan of Treatment Upcoming Encounters Date Type Department Care Team (Late st Contact Info) Description 05/06/2023 3:20 PM EST Office Visit Nephrology, [facility] Calder[facility] [address] [place] [address] Eric Day MD [address] [place] [address] 05/09/2023 1:40 PM EST Office Visit Family Practice [facility] [address] [facility] [place] [address] Chris Asencio, [address] [place] [address] 05/17/2023 10:00 AM EST Home Visit [facility]inger at [facility] [address] [place] [address] Penny Parikh, RN [address] [place] [address] 05/28/2023 11:30 AM EST Laboratory Laboratory, [place] [address] [place] [id number] [facility] [address] [place] [address] 06/03/2023 2:30 PM EST Office Visit Hematology/Oncology [facility] [address] [facility] [place] [address] Henok Stauffer MD [address] [facility] [place] [address] 06/07/2023 10:30 AM EST Office Visit Gastroenterology, [facility] [address] [facility] [place] [address] Geovanna Bahena CRNP [address] [facility] [place] [address] 06/11/2023 1:30 PM EST Office Visit Cardiology, [facility] [address] [facility] [place] [address] Sophy Sands PA-C [facility] [place] [address] 06/28/2023 4:00 PM EST Telemedicine [facility]opaedics [facility] [place] [address] Carlos A Cid MD [address] [place] [phone] 07/05/2023 8:00 AM EST Office Visit Nutrition & Weight Management, [facility] [address] [place] [address] Iris Cerrato PA-C [address] [place] [address] 08/08/2023 2:00 PM EDT Office Visit [facility] [address] [place] [address] Taty Tobar CRNP [address] [place] [address] 10/03/2023 6:20 PM EDT Office Visit [facility] [address] [place] [address] Chris Asencio DO [address] [place] [address] 11/07/2023 3:40 PM EDT Office Visit [facility] [address] [place] [address] Chris Asencio, [address] [place] [address] 02/06/2024 2:00 PM EDT Office Visit [facility] [address] [place] [address] Taty Tobar CRNP [address] [place] [address] 02/28/2024 1:30 PM EDT Imaging Radiology [facility] 1st Floor, [place] [address] [place] [address] 03/05/2024 2:00 PM EDT Office Visit Ophthalmology, [facility] [address] [place] [address] Ernie Rivers, DO [address] [place] [address] Pending Results Name Type Priority Associated Diagnoses Date /Time XR SHOULDER, 2 OR MORE VIEWS Medical Imaging Routine 05/02/2023 1:51 PM EST Scheduled Procedures Name Priority Associated Diagnoses Date/Ti me COLONOSCOPY FLEXIBLE PROXIMA L DIAGNOSTIC Recall Family history of colon cancer Scheduled Referrals Name Type Priority Associated Diagnoses Orde r Schedule PHYSICAL THERAPY REFERRAL OP Referral Within 10 days (routine) Glenohumeral arthritis, left Ordered: 05/02/2023 Health Maintenance Due Date Last Done Comments Hepatitis B (1 of 3 - Risk 3-dose series) 2012 Zoster Vaccines (2 of 3) 05/07/2013 03/12/2013 Diabetic Foot Exam 05/23/2021 05/23/2020, 1 06/06/2018, 06/05/2018, Additional history exists COVID-19 Vaccine ( season) 2023 09/09/2020, 08/19/2020 GFR 07/25/2023 01/24/2023, 12/25, 01/03/2023, Additional history exists Depression Screening 10/13/2023 10/12/2022 HbA1c 10/23/2023 04/24/2023, 0805/2022, 09/06/2022, Additional history exists CKD PHOS USE SMARTSET 77266 01/11/202412/25, 09/06/2022, 03/01/2022, Additional history exists Albumin/Creatinine Ratio 01/25/20242 023, 09/06/2022, 11/24/2021, Additional history exists CKD HGB USE SMARTSET 37369 01/25/202401/24, 01/24/2023, 01/10/2023, Additional history exists Diabetic [...] as of this encounter Visit Diagnoses Diagnosis Glenohumeral arthritis, left- Primary Type 2 diabetes mellitus with stage 3a chronic kidney disease, with long-term current use of insulin (HCC) Chronic kidney disease, stage 3b (HCC) documented in this encounter Advance Directives Documents on File Type Date Recorded 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 Question Answer Comments Discussion of Advance Directives occurred with: Patient Does the patient have a Living Will? No Does the patient have Health Care Power of Securities Compliance Examiner? No Care Teams Apple Peeler Operator Relationship Specialty Start Date End Date Chris Asencio DO [address] [place] [address] PCP - General Family Medicine 01/07/18 documented as of this encounter
--- OUTSIDE RECORDS SUMMARY | 2023-06-20 00:31 | External Medical Summary ---
Author Name Unknown Address Unknown Organization K01:[facility]ORY [facility] [place], [place] - [address] [place] [address] Laboratory Report Ordering Provider Test Date Status ERIKA HAWK 05/06/2023 16:36:23 Final Normal: <150 mg/ g creatinine
High: 150-500 mg/g creatinine
Very High: >500 mg/g creatinine
Nephrotic: >3000 mg/g creatinine Observation Date Value Abnormality Reference (Units ) Status Protein/Creatinine [Ratio] in Urine 05/06/2023 16:36:23 <114 <150 (mg/g ) Final Protein, Urine 05/06/2023 16:36:23 <4 (mg/dL) Final Creatinine, Urine 05/06/2023 16:36:23 35 (mg/dL) Final Performing Location LAB[facility]ORY [facility] [place], [place] - [address] [place] [address]
--- OUTSIDE RECORDS SUMMARY | 2023-06-20 00:31 | External Medical Summary ---
Author Name Unknown Address Unknown Organization K01:LABORATORY [facility] [place] - [address] [facility] [address] Laboratory Report Ordering Provider Test Date Status ERIKA HAWK 05/06/2023 16:36:23 Final Observation Date Value Abnormality Reference (Units ) Status Color of Urine by Auto 05/06/2023 16:36:23 Colorless Colorless, Light Yellow, Yellow, Dark Yellow Final Clarity, Urine 05/06/2023 16:36:23 Clear Clear Final Glucose [Mass/volume] in Urine by Automated test strip 05/06/2023 16:36:23 Negative Negative (mg/dL) Final Bilirubin.total [Presence] in Urine by Automated test strip 05/06/2023 16:36:23 Negative Negative Final Ketones [Mass/volume] in Urine by Automated test strip 05/06/2023 16:36:23 Negative Negative (mg/dL) Final Specific gravity, Urine 05/06/2023 16:36:23 1.009 1.003-1.030 Final Hemoglobin [Presence] in Urine by Automated test strip 05/06/2023 16:36:23 Negative Negative Final pH, Urine 05/06/2023 16:36:23 6.5 5.0-7.5 (Units) Final Protein [Mass/volume] in Urine by Automated test strip 05/06/2023 16:36:23 Negative Negative (mg/dL) Final Urobilinogen [Mass/volume] in Urine by Automated test strip 05/06/2023 16:36:23 Normal Normal (mg/dL) Final Nitrite [Presence] in Urine by Automated test strip 05/06/2023 16:36:23 Negative Negative Final Leukocyte esterase [Presence] in Urine by Automated test strip 05/06/2023 16:36:23 Small Abnormal Negative Final RBC, Urine 05/06/2023 16:36:23 0-2 0-2 (/HPF) Final WBC, Urine 05/06/2023 16:36:23 3-5 Abnormal 0-2 (/HPF) Final Bacteria [#/area] in Urine sediment by Microscopy high power field 05/06/2023 16:36:23 0-25 0-25 (/HPF) Final Hyaline casts, Urine 05/06/2023 16:36:23 5-9 Abnormal None (/LPF) Final Transitional cells [#/area] in Urine sediment by Microscopy high power field 05/06/2023 16:36:23 1-4 Abnormal None (/HPF) Final Performing Location LABORATORY [facility] [place] - [address] [facility] [address]
--- OUTSIDE RECORDS SUMMARY | 2023-06-20 00:31 | External Medical Summary ---
Author Name Unknown Address Unknown Organization K01:LABORATORY [facility] [place] - [address] [place] [address] Laboratory Report Ordering Provider Test Date Status ERIKA HAWK 05/06/2023 16:36:23 Final Observation Date Value Abnormality Reference (Units ) Status Iron 05/06/2023 16:36:23 59 33-151 (ug /dL) Final Iron-binding capacity 05/06/2023 16:36:23 308 250-425 (ug/dL) Final Transferrin Sat % 05/06/2023 16:36:23 19 15 -55 (%) Final Performing Location LABORATORY [facility] [place] - [address] [place] [address]
--- OUTSIDE RECORDS SUMMARY | 2023-06-20 00:31 | External Medical Summary ---
Author Name Unknown Address Unknown Organization K01:[facility]ATORY [facility] [place] - [facility] [address] [facility] [address] Laboratory Report Ordering Provider Test Date Status ERIKA HAWK 05/06/2023 16:36:23 Final Observation Date Value Abnormality Reference (Units ) Status WBC, Total 05/06/2023 16:36:23 5.51 4.00-10.80 (K/uL) Final RBC 05/06/2023 16:36:23 4.10 3.85-5.15 (M/uL) Final Hemoglobin 05/06/2023 16:36:23 12.1 12.0-15.3 (g/dL) Final HCT 05/06/2023 16:36:23 37.5 36.0-45.2 (%) Final MCV 05/06/2023 16:36:23 91.5 81.5-97.5 (fL) Final MCH 05/06/2023 16:36:23 29.5 27.0-34.0 (pg) Final MCHC 05/06/2023 16:36:23 32.3 32.0-36.0 (g/dL) Final RDW 05/06/2023 16:36:23 15.8 11.5-15.5 (%) Final Platelets 05/06/2023 16:36:23 238 140-400 (K/uL) Final MPV 05/06/2023 16:36:23 11.3 6.6-11.1 (fL) Final Nucleated erythrocytes/100 leukocytes [Ratio] in Blood by Automated count 05/06/2023 16:36:23 0 <=0 (/100 WBCs) Final Performing Location [facility]ORY [facility] [place] - [address] [place] [address]
--- OUTSIDE RECORDS SUMMARY | 2023-06-20 00:31 | External Medical Summary ---
Author Name Unknown Address Unknown Organization K01:[facility] [place] [address] [place] [address] Laboratory Report Ordering Provider Test Date Status ERIKA HAWK 05/06/2023 16:36:23 Final Observation Date Value Abnormality Reference (Units ) Status BUN 05/06/2023 16:36:23 41 Above high normal 6-20 (mg/dL) Final Creatinine 05/06/2023 16:36:23 1.9 Above high normal 0.5-1.0 (mg/dL) Final Glomerular filtration rate/1.73 sq M.predicted [Volume Rate/Area] in Serum, Plasma or Blood by Creatinine-based formula (CKD-EPI) 05/06/2023 16:36:23 28 Below low normal >=60 (mL/min) Final eGFR is calculated based on the CKD-EPI 2020 equation SODIUM 05/06/2023 16:36:23 139 135-146 (m mol/L) Final Potassium 05/06/2023 16:36:23 4.4 3.5-5.1 (m mol/L) Final Cl 05/06/2023 16:36:23 103 98-107 (mm ol/L) Final CO2 05/06/2023 16:36:23 24 22-32 (mmo l/L) Final Anion gap 05/06/2023 16:36:23 12 7-15 (mmol /L) Final Glucose 05/06/2023 16:36:23 90 70-120 (mg /dL) Final Calcium 05/06/2023 16:36:23 9.8 8.4-10.2 ( mg/dL) Final Albumin 05/06/2023 16:36:23 4.3 3.8-5.0 (g /dL) Final Phosphate 05/06/2023 16:36:23 3.8 2.5-4.8 (m g/dL) Final Performing Location LABORATORY [facility] - [address] [place] [address]
--- OUTSIDE RECORDS SUMMARY | 2023-06-20 00:31 | External Medical Summary | Summary of Care ---
Author Name Unknown Organization [facility] Address [address] [place] [address] Phone [phone] Care Team Providers Care Chemical Pumper Name Role Phone Luis M Chris Fabiananay Primary Care Provider Encounter Details Date Type Department Care Team (Late st Contact Info) Description 05/06/2023 Patient Reported Data Patient Survey Ortho OBERD Allergies Active Allergy Reactions Criticality Noted Date [...] 1 Each 5 10/20/2020 Active Dexcom G6 Lace And Textiles Restorer DeviceIndications:Typ e 2 diabetes mellitus with stage [...] disease, with long-term current use of insulin ([facility]) Take 2 Tablets by mouth in the [...] DIRECTED 300 g 4 04/22/2023 Active Methscopolamine [place] 2.5 MG Oral TabletIndications:Irr itable bowel syndrome [...] 06/04/2014 Overview: Signed 06/04/2014 Pranav Sanchez MD [facility] Pharmacy [place] Spinal pain 06/04/2014 02/02/2017 Type 2 diabetes [...] 05/06/2023 3:20 PM EST Office Visit [facility], [facility] [address] [facility] [place] [address] Eric Day MD [address] [facility] [place] [address] 05/09/2023 1:40 PM EST Office Visit Family Practice [facility] [address] [facility] [place] [place] [address] Chris Asencio DO [address] [facility] [place] [address] 05/17/2023 10:00 AM EST [facility] [address] [facility] [place] [place] [address] Penny Parikh, RN [address] [place] [address] 05/28/2023 11:30 AM EST Laboratory Laboratory, [address] [id number] [place] [address] [place] [address] 06/03/2023 2:30 PM EST Office Visit Hematology/Oncology [facility] [address] [facility] [place] [address] Henok Stauffer MD [address] [place] [address] 06/07/2023 10:30 AM EST Office Visit [facility]ology, [facility] [place] [address] Geovanna Bahena CRNP [address] [place] [address] 06/11/2023 1:30 PM EST Office Visit Cardiology, [facility] [address] [place] [address] Sophy Sands, PALillyC [address] [place] [address] 06/28/2023 4:00 PM EST Telemedicine Orthopaedics [facility] [address] [place] [address] Carlos A Cid MD [address] [place] [phone] 07/05/2023 8:00 AM EST Office Visit Nutrition & Weight Management, [facility] [address] [place] [address] Iris Cerrato PA-C [address] [place] [address] 08/08/2023 2:00 PM EDT Office Visit [facility] [address] [place] [address] Taty Tobar CRNP [address] [place] [address] 10/03/2023 6:20 PM EDT Office Visit [facility] [address] [place] [address] Chris Asencio DO [address] [place] [address] 11/07/2023 3:40 PM EDT Office Visit [facility] [address] [place] [address] Chris Asencio, DO [address] [place] [address] 02/06/2024 2:00 PM EDT Office Visit Family Practice [facility] 132 [facility] [place] [address] Taty Tobar CRNP 132 [facility] [place] [address] 02/28/2024 1:30 PM EDT Imaging Radiology [facility] 1st Floor, [place] [address] [place] [address] 03/05/2024 2:00 PM EDT Office Visit Ophthalmology, [facility] 132 [facility] [place] [address] Ernie Rivers, DO [address] [facility] [place] [address] Scheduled Procedures Name Priority Associated Diagnoses Date/Ti [...] Additional history exists CKD PHOS USE SMARTSET 42878 01/11/202412/25, 09/06/2022, 03/01/2022, Additional history exists Albumin/Creatinine Ratio 01/25/2024 023, 09/06/2022, 11/24/2021, Additional history exists CKD HGB USE SMARTSET 57429 01/25/202401/24, 01/24/2023, 01/10/2023, Additional history exists Diabetic [...] Documents on File Type Date Recorded 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 Question Answer Comments Discussion of Advance Directives occurred with: Patient Does the patient have a Living Will? No Does the patient have Health Care Power of Car Worker Helper? No Care Teams Chemical Pumper Relationship Specialty Start Date End Date Chris Asencio DO [address] [place] [address] PCP - General Family Medicine 01/07/18 documented as of this encounter
--- OUTSIDE RECORDS SUMMARY | 2023-06-20 00:31 | External Medical Summary ---
Author Name Unknown Address Unknown Organization K01:[facility] [place] - [address] [place] [address] Laboratory Report Ordering Provider Test Date Status KENNERIKA 05/06/2023 16:36:23 Final Observation Date Value Abnormality Reference (Units ) Status Parathyrin.intact [Mass/volume] in Serum or Plasma 05/06/2023 16:36:23 60 15-65 (pg/mL) Final Performing Location LAB[facility] [place] - [address] [place] [address]
--- OUTSIDE RECORDS SUMMARY | 2023-06-20 00:32 | External Medical Summary | Summary of Care ---
Author Name Unknown Organization [facility] Address [address] [place] [address] Phone [phone] Care Team Providers Care Chief Security Officer Name Role Phone Jessica Asencio DO Primary Care Provider Reason for Visit * Reason Onset Date Comments Test Results 04/26/2023 Unexpected or In determinate Result Encounter Details Date Type Department Care Team ([facility] st Contact Info) Description 04/26/2023 Telephone Laboratory, [facility] [address] [place] [address] Jessica Asencio DO [address] [place] [address] Test Results (Unexpected or Indeterminate ... Allergies Active Allergy Reactions Criticality Noted Date [...] as of this encounter (statuses as of 04/30/2023) Medications Medication Sig Dispensed Refills Start Date [...] 1 Each 5 10/20/2020 Active Dexcom G6 Hat And Cap Parts Cutter Hand DeviceIndications:Typ e 2 diabetes mellitus with stage [...] DIRECTED 300 g 4 04/22/2023 Active Methscopolamine [place] 2.5 MG Oral TabletIndications:Irr itable bowel syndrome [...] as of this encounter (statuses as of 04/30/2023) Active Problems Patient Care Coordination No te [...] as of this encounter (statuses as of 04/30/2023) Resolved Problems Problem Noted Date Diagnosed Date [...] 06/04/2014 Overview: Signed 06/04/2014 Pranav Sanchez MD [facility] Pharmacy [place] Spinal pain 06/04/2014 02/02/2017 Type 2 diabetes [...] as of this encounter (statuses as of 04/30/2023) Immunizations Name Administration Dates Next Due COVID-19 [...] encounter Miscellaneous Notes * Telephone Encounter - Michelle Marion LPN - 04/30/2023 12:43 PM EST Message left on identified voice mail of information as noted per Dr. Asencio and x-ray instructions. Advised to return call for any question or concerns. * Telephone Encounter - Salud Asencio OSA - 04/29/2023 12:48 PM EST FYI ortho already scheduled and for the x-ray she can walk I no appt needed * Addendum Note - Jessica Asencio DO - 04/29/2023 12:39 PM ESTAddended by: JESSICA ASENCIO on: 04/29/2023 12:39 PM Modules accepted: Orders * Telephone Encounter - Jessica Asencio DO - 04/29/2023 12:37 PM EST Aware of message Please let patient know that her x-ray showed severe arthritis of the shoulder Advise f/u with ortho as scheduled The x-ray also showed an abnormal finding in the lung that wasn't visualized well on the shoulder x-ray and the radiologist would like her to have a dedicated chest xray to fully evaluate Please have it done at her earliest convenience Thank you! * Telephone Encounter - Yvette Mcgrath LPN - 04/29/2023 10:18 AM EST [facility] calling again, wanting to see if you saw this message. Please address. Thanks. * Telephone Encounter - Brandy López OSA - 04/26/2023 11:51 AM EST Hello- The radiologist discovered an unexpected or indeterminate finding on Liane Alejandre ([id number]) and asks that you review the following report. Study Type:XR SHOULDER, 2 OR MORE VIEWS Date of Study: 04/23/2023 IMPRESSION 1. 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 2. Mild acromioclavicular joint osteoarthritis. 3. Increased opacity is noted at the left lung base. This is incompletely characterized. Dedicated upright PA and lateral views of the chest is recommended for further assessment. Please respond to this encounter to acknowledge receipt of this message and take responsibility to ensure this report is reviewed. Thank you, KATERIN Mnoet Client Service [facility] documented in this encounter Plan of Treatment Upcoming Encounters Date Type Department Care Team (Late st Contact Info) Description 05/02/2023 2:00 PM EST Office Visit Orthopaedics [facility] [address] [place] [address] Carlos A Cid MD [address] [place] [address] 05/06/2023 3:20 PM EST Office Visit Nephrology, [facility] [address] [place] [address] Eric Day MD [address] [place] [address] 05/09/2023 1:40 PM EST Office Visit Family Practice [facility] 132 [facility] [place] [address] Jessica Asencio DO [address] [place] [address] 05/17/2023 10:00 AM EST [facility] [place] [address] Penny Parikh, RN [facility] [place] [address] 05/28/2023 11:30 AM EST Laboratory Laboratory, [place] [address] [place] [phone] [place] [address] [place] [address] 06/03/2023 2:30 PM EST Office Visit Hematology/Oncology [facility] 200 [facility] [place] [address] Henok Stauffer MD 200 [facility] [place] [address] 06/07/2023 10:30 AM EST Office Visit Gastroenterology, [facility] 132 [facility] [place] [address] Geovanna Bahena CRNP [facility] [place] [address] 06/11/2023 1:30 PM EST Office Visit Cardiology, [facility] [place] [address] Sophy Sands PA-C [address] [place] [address] 07/05/2023 8:00 AM EST Office Visit Nutrition & Weight Management, [facility] [address] [place] [address] Iris Cerrato PA-C [address] [place] [address] 08/08/2023 2:00 PM EDT Office Visit [facility] Practice [facility] [address] [place] [address] Taty Tobar CRNP [address] [place] [address] 10/03/2023 6:20 PM EDT Office Visit [facility] [address] [place] [address] Jessica Asencio, DO [address] [place] [address] 11/07/2023 3:40 PM EDT Office Visit [facility] [address] [place] [address] Jessica Asencio, DO [address] [place] [address] 02/06/2024 2:00 PM EDT Office Visit [facility] Practice [facility] [address] [place] [address] Taty Tobar CRNP [address] [place] [address] 02/28/2024 1:30 PM EDT Imaging Radiology [facility] 1st Floor, [place] [address] [place] [address] 03/05/2024 2:00 PM EDT Office Visit Ophthalmology, [facility] [address] [place] [address] Ernie Rivers, DO 21 [facility] [place] [address] Scheduled Orders Name Type Priority Associated Diagnoses Orde r Schedule XR CHEST 2 VIEWS Medical Imaging Routine Abnormal imaging of intrathoracic organ Ordered: 04/29/2023 Scheduled Procedures Name Priority Associated Diagnoses Date/Ti [...] Additional history exists CKD PHOS USE SMARTSET 68692 01/11/202412/25, 09/06/2022, 03/01/2022, Additional history exists Albumin/Creatinine Ratio 01/25/2024 023, 09/06/2022, 11/24/2021, Additional history exists CKD HGB USE SMARTSET 45632 01/25/202401/24, 01/24/2023, 01/10/2023, Additional history exists Diabetic [...] as of this encounter Visit Diagnoses Diagnosis Abnormal imaging of intrathoracic organ- Primary documented in this encounter Advance Directives Documents on File Type Date Recorded 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 Question Answer Comments Discussion of Advance Directives occurred with: Patient Does the patient have a Living Will? No Does the patient have Health Care Power of Auditor/Quality? No Care Teams Chief Security Officer Relationship Specialty Start Date End Date Jessica Asencio DO [address] [place] [address] PCP - General Family Medicine 01/07/18 documented as of this encounter
--- OUTSIDE RECORDS SUMMARY | 2023-06-20 00:32 | External Medical Summary | Summary of Care ---
Author Name Unknown Organization [facility] Address [address] [place] [address] Phone [phone] Care Team Providers Care News Production Supervisor Name Role Phone Jessica Asencio DO Primary Care Provider Reason for Visit * Reason Onset Date Comments Test Results 04/26/2023 Unexpected or In determinate Result Encounter Details Date Type Department Care Team ([facility] st Contact Info) Description 04/26/2023 Telephone Laboratory, [place] [address] [place] [address] Jessica Asencio DO [address] [place] [address] Test Results (Unexpected or Indeterminate [...] as of this encounter (statuses as of 04/29/2023) Medications Medication Sig Dispensed Refills Start Date [...] 1 Each 5 10/20/2020 Active Dexcom G6 Advisory Internship DeviceIndications:Typ e 2 diabetes mellitus with stage [...] DIRECTED 300 g 4 04/22/2023 Active Methscopolamine [place] 2.5 MG Oral TabletIndications:Irr itable bowel syndrome [...] as of this encounter (statuses as of 04/29/2023) Active Problems Patient Care Coordination No te [...] as of this encounter (statuses as of 04/29/2023) Resolved Problems Problem Noted Date Diagnosed Date [...] Overview: Signed 06/04/2014 Pranav Sanchez MD [facility] Pharmacy [place] Spinal pain 06/04/2014 02/02/2017 Type 2 diabetes [...] as of this encounter (statuses as of 04/29/2023) Immunizations Name Administration Dates Next Due COVID-19 [...] as of this encounter Miscellaneous Notes * Addendum Note - Jessica Asencio DO [...] Mcgrath LPN - 04/29/2023 10:18 AM EST [facility]ology calling again, wanting to see if you saw this message. Please address. Thanks. * Telephone Encounter - Brandy López, KATERIN - 04/26/2023 11:51 AM EST Hello- The radiologist discovered an unexpected or indeterminate finding on Liane A Pili ([id number]) and asks that you review the following [...] this report is reviewed. Thank you, KATERIN Monet Client Service Rep [facility] Medicine [place] documented in this encounter Plan of Treatment Upcoming Encounters Date Type Department Care Team (Late st Contact Info) Description 05/02/2023 2:00 PM EST Office Visit Orthopaedics [facility] [address] [place] [address] Carlos A Cid MD [address] [place] [phone] 05/06/2023 3:20 PM EST Office Visit Nephrology, [facility] 200 [facility] [place] [address] Eric Day MD 200 [facility] [place] [address] 05/09/2023 1:40 PM EST Office Visit Family Practice [facility] [address] [address] Jessica Asencio DO [address] [place] [address] 05/17/2023 10:00 AM EST Home Visit [facility] [address] [place] [address] Penny Parikh, RN [address] [place] [address] 05/28/2023 11:30 AM EST Laboratory Laboratory, [place] [address] [facility], [place] [address] [facility] [address] [facility], [place] [address] 06/03/2023 2:30 PM EST Office Visit [facility]ematology[facility]On[facility] 200 [facility] [place] [address] Henok Stauffer MD 200 [facility] [place] [address] 06/07/2023 10:30 AM EST Office Visit Gastroenterology, [facility] [address] [place] [address] Geovanna Bahena CRNP [address] [place] [address] 06/11/2023 1:30 PM EST Office Visit Cardiology, [facility] [address] [place] [address] Sophy Sands PA-C [address] [place] [address] 07/05/2023 8:00 AM EST Office Visit Nutrition & Weight Management, [facility] [address] [place] [address] Iris Cerrato PA-C [address] [place] [address] 08/08/2023 2:00 PM EDT Office Visit Family Practice [facility] [address] [place] [address] Taty Tobar CRNP [address] [place] [address] 10/03/2023 6:20 PM EDT Office Visit [facility] 132 [facility] [place] [address] Jessica Asencio, DO 132 [facility] [place] [address] 11/07/2023 3:40 PM EDT Office Visit [facility] 132 [facility] [place] [address] Jessica Asencio, DO 132 [facility] [place] [address] 02/06/2024 2:00 PM EDT Office Visit [facility] 132 [facility] [place] [address] Taty Tobar CRNP 132 [facility] [place] [address] 02/28/2024 1:30 PM EDT Imaging Radiology [facility] 1st Floor, [place] [facility] [place] [address] 03/05/2024 2:00 PM EDT Office Visit Ophthalmology, [facility] 132 [facility] [place] [address] Ernie Rivers, DO [address] [facility] [place] [address] Scheduled Orders Name Type Priority Associated Diagnoses [...] ( - 2022- season) 2023 09/09/2020, 08/19/2020 GFR 07/25/2023 01/24/2023, 12/25, 01/03/2023, Additional history exists Depression Screening 10/13/2023 10/12/2022 HbA1c 10/23/2023 04/24/2023, 12/27, 09/06/2022, Additional history exists CKD PHOS USE SMARTSET 98204 01/11/202412/25, 09/06/2022, 03/01/2022, Additional history exists Albumin/Creatinine Ratio 01/25/2024 023, 09/06/2022, 11/24/2021, Additional history exists CKD HGB USE SMARTSET 92195 01/25/202401/24, 01/24/2023, 01/10/2023, Additional history exists Diabetic [...] Documents on File Type Date Recorded 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 Question Answer Comments Discussion of Advance Directives occurred with: Patient Does the patient have a Living Will? No Does the patient have Health Care Power of Scouring Train Operator Chief? No Care Teams News Production Supervisor Relationship Specialty Start Date End Date Jessica Asencio DO [address] [place] [address] PCP - General Family Medicine 01/07/18 documented as of this encounter
--- OUTSIDE RECORDS SUMMARY | 2023-06-20 00:32 | External Medical Summary | Summary of Care ---
Author Name Unknown Organization [facility] Address [address] [place] [address] Phone [phone] Care Team Providers Care Animal Breeder Name Role Phone Jessica Asencio DO Primary Care Provider Reason for Visit * Reason Onset Date Comments Test Results 04/26/2023 Unexpected or In determinate Result Encounter Details Date Type Department Care Team ([facility] st Contact Info) Description 04/26/2023 Telephone Laboratory, [place] [address] [place] [address] Jessica Asencio DO [address] [place] [address] Test Results (Unexpected or Indeterminate [...] 1 Each 5 10/20/2020 Active Dexcom G6 Junior Technical Writer DeviceIndications:Typ e 2 diabetes mellitus with [...] DIRECTED 300 g 4 04/22/2023 Active Methscopolamine [place] 2.5 MG Oral TabletIndications:Irr itable bowel syndrome [...] 06/04/2014 Overview: Signed 06/04/2014 Pranav Sanchez MD [facility] [place] Spinal pain 06/04/2014 02/02/2017 Type 2 diabetes [...] mail of information as noted per Dr. Asencoi and x-ray instructions. Advised to return call [...] Mcgrath LPN - 04/29/2023 10:18 AM EST [place] radiology calling again, wanting to see if you saw this message. Please address. Thanks. * Telephone Encounter - Brandy López OSA - 04/26/2023 11:51 AM EST Hello- The radiologist discovered an unexpected or indeterminate finding on Liane Alejandre ([id number]) and asks that you review the following [...] reviewed. Thank you, KATERIN Monet Client Service [facility] documented in this encounter Plan of Treatment Upcoming Encounters Date Type Department Care Team (Late st Contact Info) Description 05/02/2023 2:00 PM EST Office Visit Orthopaedics [facility] [address] [address] Carlos A Cid MD [address] [place] [address] 05/06/2023 3:20 PM EST Office Visit Nephrology, [facility] [address] [place] [place] [address] Eric Day MD [address] [place] [address] 05/09/2023 1:40 PM EST Office Visit Family Practice [facility] 132 [facility] [place] [address] Jessica Asencio DO [address] [place] [address] 05/17/2023 10:00 AM EST [facility] [place] [address] Penny Parikh, RN [facility] [place] [address] 05/28/2023 11:30 AM EST Laboratory Laboratory, [place] [address] [place] [phone] [place] [address] [place] [address] 06/03/2023 2:30 PM EST Office Visit Hematology/Oncology [facility] [address] [facility] [place] [address] Henok Stauffer MD [address] [facility] [place] [address] 06/07/2023 10:30 AM EST Office Visit Gastroenterology, [facility] 132 [facility] [place] [address] Geovanna Bahena CRNP [facility] [place] [address] 06/11/2023 1:30 PM EST Office Visit Cardiology, [facility] [address] [facility] [place] [address] Sophy Sands PA-C [address] [place] [address] 07/05/2023 8:00 AM EST Office Visit Nutrition & Weight Management, [facility] [address] [place] [address] Iris Cerrato PA-C [address] [place] [address] 08/08/2023 2:00 PM EDT Office Visit [facility] [address] [place] [address] Taty Tobar CRNP [address] [place] [address] 10/03/2023 6:20 PM EDT Office Visit [facility] [address] [place] [address] Jessica Asencio, DO [address] [place] [address] 11/07/2023 3:40 PM EDT Office Visit [facility] [address] [place] [address] Jessica Asencio, DO [address] [place] [address] 02/06/2024 2:00 PM EDT Office Visit [facility] [address] [place] [address] Taty Tobar CRNP [address] [place] [address] 02/28/2024 1:30 PM EDT Imaging Radiology [facility] 1st Floor, [place] [address] [place] [address] 03/05/2024 2:00 PM EDT Office Visit Ophthalmology, [facility] [address] [place] [address] Ernie Rivers, DO [address] [facility] [place] [address] Scheduled Orders Name Type Priority Associated Diagnoses [...] Additional history exists CKD PHOS USE SMARTSET 25881 01/11/202412/25, 09/06/2022, 03/01/2022, Additional history exists Albumin/Creatinine Ratio 01/25/2024 023, 09/06/2022, 11/24/2021, Additional history exists CKD HGB USE SMARTSET 69070 01/25/202401/24, 01/24/2023, 01/10/2023, Additional history exists Diabetic [...] Documents on File Type Date Recorded 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 Question Answer Comments Discussion of Advance Directives occurred with: Patient Does the patient have a Living Will? No Does the patient have Health Care Power of Production Assistant? No Care Teams Animal Breeder Relationship Specialty Start Date End Date Jessica Asencio DO [address] [address] PCP - General Family Medicine 01/07/18 documented as of this encounter
--- OUTSIDE RECORDS SUMMARY | 2023-06-20 00:32 | External Medical Summary | Summary of Care ---
Author Name Unknown Organization [facility] Address [address] [place] [address] Phone [phone] Care Team Providers Care Mower Mechanic Name Role Phone Jessica Asencio DO Primary Care Provider Reason for Visit * Reason Onset Date Comments Test Results 04/26/2023 Unexpected or In determinate Result Encounter Details Date Type Department Care Team ([facility] st Contact Info) Description 04/26/2023 Telephone Laboratory, [place] [address] [place] [address] Jessica Asencio DO [address] [place] [address] Test Results (Unexpected or Indeterminate [...] 1 Each 5 10/20/2020 Active Dexcom G6 Manager Gallery DeviceIndications:Typ e 2 diabetes mellitus with stage [...] DIRECTED 300 g 4 04/22/2023 Active Methscopolamine [place] 2.5 MG Oral TabletIndications:Irr itable bowel syndrome [...] 06/04/2014 Overview: Signed 06/04/2014 Pranav Sanchez MD [facility] [place] Spinal pain 06/04/2014 02/02/2017 Type 2 diabetes [...] encounter Miscellaneous Notes * Telephone Encounter - [place] Asencio OSA [...] Mcgrath LPN - 04/29/2023 10:18 AM EST [place] radiology calling again, wanting to see if you saw this message. Please address. Thanks. * Telephone Encounter - Brandy López OSA - 04/26/2023 11:51 AM EST [place]- The radiologist discovered an unexpected or indeterminate finding on Liane Alejandre ([id number]) and asks that you review the following [...] Thank you, KATERIN Monet Client Service Rep [facility] documented in this encounter Plan of Treatment Upcoming Encounters Date Type Department Care Team (Late st Contact Info) Description 05/02/2023 2:00 PM EST Office Visit Orthopaedics [facility] [address] [address] Carlos A Cid MD [address] [phone] 05/06/2023 3:20 PM EST Office Visit Nephrology, [facility] [address] [place] [address] Eric Day MD [address] [place] [address] 05/09/2023 1:40 PM EST Office Visit Family Practice [facility] [address] [place] [address] Jessica Asencio DO [address] [place] [address] 05/17/2023 10:00 AM EST [facility] [address] [place] [address] Penny Parikh RN [address] [place] [address] 05/28/2023 11:30 AM EST Laboratory Laboratory, [place] [address] [place] [address] [facility] [address] [place] [address] 06/03/2023 2:30 PM EST Office Visit [facility]ematology/Oncology [facility] [address] [facility] [place] [address] Henok Stauffer MD 200 [facility] [place] [address] 06/07/2023 10:30 AM EST Office Visit Gastroenterology, [facility] 132 [facility] [place] [address] Geovanna Bahena CRNP [facility] [place] [address] 06/11/2023 1:30 PM EST Office Visit Cardiology, [facility] 132 [facility] [place] [address] Sophy Sands PA-C [address] [place] [address] 07/05/2023 8:00 AM EST Office Visit Nutrition & Weight Management, [facility] [address] [place] [address] Iris Cerrato PA-C [address] [place] [address] 08/08/2023 2:00 PM EDT Office Visit [facility] 132 [facility] [place] [address] Taty Tobar CRNP [address] [place] [address] 10/03/2023 6:20 PM EDT Office Visit [facility] 132 [facility] [place] [address] Jessica Asencio, 132 [facility] [place] [address] 11/07/2023 3:40 PM EDT Office Visit [facility] 132 [facility] [place] [address] Jessica Asencio, 132 [facility] [place] [address] 02/06/2024 2:00 PM EDT Office Visit [facility] 132 [facility] [place] [address] Taty Tobar CRNP 132 [facility] [place] [address] 02/28/2024 1:30 PM EDT Imaging Radiology [facility] 132 [facility] [place] [address] 03/05/2024 2:00 PM EDT Office Visit Ophthalmology, [facility] 132 [facility] [place] [address] Ernie Rivers, DO [address] [place] [address] Scheduled Orders Name Type Priority Associated Diagnoses [...] Additional history exists CKD PHOS USE SMARTSET 65369 01/11/202412/25, 09/06/2022, 03/01/2022, Additional history exists Albumin/Creatinine Ratio 01/25/2024 023, 09/06/2022, 11/24/2021, Additional history exists CKD HGB USE SMARTSET 59441 01/25/202401/24, 01/24/2023, 01/10/2023, Additional history exists Diabetic [...] Documents on File Type Date Recorded 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 Question Answer Comments Discussion of Advance Directives occurred with: Patient Does the patient have a Living Will? No Does the patient have Health Care Power of Nursery Supervisor? No Care Teams Mower Mechanic Relationship Specialty Start Date End Date Jessica Asencio DO [address] [place] [address] PCP - General Family Medicine 01/07/18 documented as of this encounter
--- OUTSIDE RECORDS SUMMARY | 2023-06-20 00:32 | External Medical Summary | Summary of Care ---
Author Name Unknown Organization [facility] Address [address] [place] [address] Phone [phone] Care Team Providers Care Checkroom Chief Name Role Phone Jessica Asencio DO Primary Care Provider Reason for Visit * Reason Onset Date Comments Test Results 04/26/2023 Unexpected or In determinate Result Encounter Details Date Type Department Care Team ([facility] st Contact Info) Description 04/26/2023 Telephone Laboratory, [place] [address] [place] [address] Jessica Asencio DO [address] [place] [address] Test Results (Unexpected or Indeterminate [...] 1 Each 5 10/20/2020 Active Dexcom G6 Consumer Loan Processor DeviceIndications:Typ e 2 diabetes mellitus with stage [...] DIRECTED 300 g 4 04/22/2023 Active Methscopolamine [place] 2.5 MG Oral TabletIndications:Irr itable bowel syndrome [...] 06/04/2014 Overview: Signed 06/04/2014 Pranav Sanchez MD [facility] Pharm[facility] [place] Spinal pain 06/04/2014 02/02/2017 Type 2 diabetes [...] Mcgrath LPN - 04/29/2023 10:18 AM EST [place] radiology calling again, wanting to see if you saw this message. Please address. Thanks. * Telephone Encounter - Brandy López OSA - 04/26/2023 11:51 AM EST Hello- The radiologist discovered an unexpected or indeterminate finding on Liane Alejandre ([id number]) and asks that you review the following [...] reviewed. Thank you, KATERIN Monet Client Service [facility] documented in this encounter Plan of Treatment Upcoming Encounters Date Type Department Care Team (Late st Contact Info) Description 05/02/2023 2:00 PM EST Office Visit Orthopaedics [facility] [address] [address] Carlos A Cid MD [address] [place] [address] 05/06/2023 3:20 PM EST Office Visit Nephrology, [facility] [address] [place] [address] Eric Day MD [address] [place] [address] 05/09/2023 1:40 PM EST Office Visit Family Practice [facility] 132 [facility] [place] [address] Jessica Asencio DO [address] [place] [address] 05/17/2023 10:00 AM EST [facility] [place] [address] Penny Parikh, RN [facility] [place] [address] 05/28/2023 11:30 AM EST Laboratory Laboratory, [place] [address] [place] [address] [place] [address] [place] [address] 06/03/2023 2:30 PM EST Office Visit Hematology/Oncology [facility] 200 [facility] [place] [address] Henok Stauffer MD 200 [facility] [place] [address] 06/07/2023 10:30 AM EST Office Visit Gastroenterology, [facility] 132 [facility] [place] [address] Geovanna Bahena CRNP [facility] [place] [address] 06/11/2023 1:30 PM EST Office Visit Cardiology, [facility] [place] [address] Sophy Sands PA-C [address] [place] [address] 07/05/2023 8:00 AM EST Office Visit Nutrition & Weight Management, [facility] [address] [place] [address] Iris Cerrato PA-C [address] [place] [address] 08/08/2023 2:00 PM EDT Office Visit [facility] Practice [facility] [address] [place] [address] Taty Tobar CRNP [address] [place] [address] 10/03/2023 6:20 PM EDT Office Visit [facility] [address] [place] [address] Jessica Asencio, DO [address] [place] [address] 11/07/2023 3:40 PM EDT Office Visit [facility] Practice [facility] [address] [place] [address] Jessica Asencio, DO [address] [place] [address] 02/06/2024 2:00 PM EDT Office Visit [facility] Practice [facility] [address] [place] [address] Taty Tobar CRNP [address] [place] [address] 02/28/2024 1:30 PM EDT Imaging Radiology [facility] 1st Floor, [place] [address] [place] [address] 03/05/2024 2:00 PM EDT Office Visit Ophthalmology, [facility] [address] [place] [address] Ernie Rivers, DO 21 [facility] [place] [address] Scheduled Orders Name Type Priority Associated Diagnoses [...] Additional history exists CKD PHOS USE SMARTSET 01214 01/11/202412/25, 09/06/2022, 03/01/2022, Additional history exists Albumin/Creatinine Ratio 01/25/2024 023, 09/06/2022, 11/24/2021, Additional history exists CKD HGB USE SMARTSET 22017 01/25/202401/24, 01/24/2023, 01/10/2023, Additional history exists Diabetic [...] Documents on File Type Date Recorded Patient Flag Decorator Expl anation POLST 10/20/2021 [place] OR [facility] FOR LIFE-SUSTAINING TREATMENT Latest Code Status on File Code Status Date Activated Date Inactivated Comments Full Code 03/30/2022 6:40 AM 03/30/2022 2:12 PM This order reflects the patients wishes and were consensually agreed upon. Question Answer Comments Discussion of Advance Directives occurred with: Patient Does the patient have a Living Will? No Does the patient have Health Care Power of Computer Help Desk Specialist? No Care Teams Checkroom Chief Relationship Specialty Start Date End Date Jessica Asencio DO [address] [address] PCP - General Family Medicine 01/07/18 documented as of this encounter
--- OUTSIDE RECORDS SUMMARY | 2023-06-20 00:33 | External Medical Summary | Summary of Care ---
Author Name Unknown Organization [facility] Address [address] [place] [address] Phone [phone] Care Team Providers Care Culinary Specialist Name Role Phone Chris Asencio DO Primary Care Provider Reason for Visit * Reason Onset Date Comments Test Results 04/26/2023 Unexpected or In determinate Result Encounter Details Date Type Department Care Team ([facility] st Contact Info) Description 04/26/2023 Telephone Laboratory, [place] [address] [place] [address] Chris Asencio DO [address] [place] [address] Test Results (Unexpected or Indeterminate [...] as of this encounter (statuses as of 04/26/2023) Medications Medication Sig Dispensed Refills Start Date [...] 1 Each 5 10/20/2020 Active Dexcom G6 Prison Warden DeviceIndications:Typ e 2 diabetes mellitus with stage [...] DIRECTED 300 g 4 04/22/2023 Active Methscopolamine [place] 2.5 MG Oral TabletIndications:Irr itable bowel syndrome [...] as of this encounter (statuses as of 04/26/2023) Active Problems Patient Care Coordination No te [...] as of this encounter (statuses as of 04/26/2023) Resolved Problems Problem Noted Date Diagnosed Date [...] 06/04/2014 Overview: Signed 06/04/2014 Pranav Sanchez MD [facility] [place] Spinal pain 06/04/2014 02/02/2017 Type 2 diabetes [...] as of this encounter (statuses as of 04/26/2023) Immunizations Name Administration Dates Next Due COVID-19 [...] encounter Miscellaneous Notes * Telephone Encounter - Brandy López OSA - 04/26/2023 11:51 AM EST Hello- The radiologist discovered an unexpected or indeterminate finding on Liane Alejandre ([id number]) and asks that you review the following [...] Thank you, KATERIN Monet Client Service Rep [facility] [place] documented in this encounter Plan of Treatment Upcoming Encounters Date Type Department Care Team (Late st Contact Info) Description 04/30/2023 2:00 PM EST Office Visit Orthopaedics [facility] [address] [address] Carlos A Cid MD [address] [place] [address] 05/06/2023 3:20 PM EST Office Visit [facility] [address] [place] [address] Eric Day MD [address] [place] [address] 05/09/2023 1:40 PM EST Office Visit Family Practice [facility] [place] [address] Chris Asencio DO [address] [place] [address] 05/17/2023 10:00 AM EST [facility] [place] [address] Penny Parikh RN [address] [place] [address] 05/28/2023 11:30 AM EST Laboratory Laboratory, [address] [phone] [place] [address] [place] [address] 06/03/2023 2:30 PM EST Office Visit Hematology/Oncology [facility] 200 [facility] [place] [address] Henok Stauffer MD [address] [facility] [place] [address] 06/07/2023 10:30 AM EST Office Visit Gastroenterology, [facility] 132 [facility] [place] [address] Geovanna Bahena CRNP [address] [place] [address] 06/11/2023 1:30 PM EST Office Visit Cardiology, [facility] 132 [facility] [place] [address] Sophy Sands PA-C [address] [place] [address] 07/05/2023 8:00 AM EST Office Visit Nutrition & Weight Management, [facility] [address] [place] [address] Iris Cerrato PA-C [address] [place] [address] 08/08/2023 2:00 PM EDT Office Visit Family Practice [facility] [address] [place] [address] Taty Tobar CRNP [address] [place] [address] 10/03/2023 6:20 PM EDT Office Visit Family Practice [facility] [address] [place] [address] Chris Asencio, DO [address] [place] [address] 11/07/2023 3:40 PM EDT Office Visit [facility] [place] [address] [place] [address] Chris Asencio, DO [address] [place] [address] 02/06/2024 2:00 PM EDT Office Visit [facility] Practice [facility] [address] [place] [address] Taty Tobar CRNP [address] [place] [address] 02/28/2024 1:30 PM EDT Imaging Radiology [facility] 1st Floor, [place] [address] [place] [address] 03/05/2024 2:00 PM EDT Office Visit Ophthalmology, [facility] [address] [place] [address] Ernie Rivers, DO [address] [place] [address] Scheduled Procedures Name Priority Associated Diagnoses Date/Ti [...] Additional history exists CKD PHOS USE SMARTSET 53344 01/11/202412/25, 09/06/2022, 03/01/2022, Additional history exists Albumin/Creatinine Ratio 01/25/2024 023, 09/06/2022, 11/24/2021, Additional history exists CKD HGB USE SMARTSET 45245 01/25/202401/24, 01/24/2023, 01/10/2023, Additional history exists Diabetic Eye Exam 02/22/2024 02/21/2023, , 02/21/2023, Additional history exists Mammogram 02/27/2024 02/26/2023, 12/26, 01/02/2022, Additional history exists COLONOSCOPY-EVERY 5 YRS AGES 18-100 03/17/2026 03/17/2021, 03/17/2021, 12/07/2014, Additional history exists DTaP,Tdap,and Td Vaccines (3 - Td or Tdap) 04/16/2026 04/16/2016, 04/12/2006 Lipid Panel 01/25/2028 01/24/2023, 04/1 07/2022, 03/01/2022, Additional history exists DXA Scan 08/22/2031 08/21/2022, 0 10/2019, 01/19/2008 Pneumococcal Vaccine: 65+ Years Completed [...] Documents on File Type Date Recorded 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 Question Answer Comments Discussion of Advance Directives occurred with: Patient Does the patient have a Living Will? No Does the patient have Health Care Power of Tank House Supervisor? No Care Teams Culinary Specialist Relationship Specialty Start Date End Date Chris Asencio DO [address] [place] [address] PCP - General Family Medicine 01/07/18 documented as of this encounter
--- OUTSIDE RECORDS SUMMARY | 2023-06-20 00:33 | External Medical Summary | Summary of Care ---
Author Name Unknown Organization [facility] Address [address] [place] [address] Phone [phone] Care Team Providers Care Roll Forger Name Role Phone Chris Asencio DO Primary Care Provider Reason for Visit * Reason Onset Date Comments Test Results 04/26/2023 Unexpected or In determinate Result Encounter Details Date Type Department Care Team ([facility] st Contact Info) Description 04/26/2023 Telephone Laboratory, [place] [address] [place] [address] Chris Asencio DO [address] [place] [address] Test Results (Unexpected or Indeterminate [...] 1 Each 5 10/20/2020 Active Dexcom G6 Metal Box Maker DeviceIndications:Typ e 2 diabetes mellitus with stage [...] DIRECTED 300 g 4 04/22/2023 Active Methscopolamine [place] 2.5 MG Oral TabletIndications:Irr itable bowel syndrome [...] 06/04/2014 Overview: Signed 06/04/2014 Pranav Sanchez MD [facility] [place] Spinal pain 06/04/2014 02/02/2017 Type 2 diabetes [...] unexpected or indeterminate finding on Liane Alejandre ([id number]) and asks that you review the following [...] Thank you, KATERIN Monet Client Service Rep [facility] Medicine [place] documented in this encounter Plan of Treatment Upcoming Encounters Date Type Department Care Team (Late st Contact Info) Description 04/30/2023 2:00 PM EST Office Visit Orthopaedics [facility] [address] [address] Carlos A Cid MD [address] [place] [phone] 05/06/2023 3:20 PM EST Office Visit [place] [address] [place] [address] Eric Day MD [address] [place] [address] 05/09/2023 1:40 PM EST Office Visit Family Practice [facility] [place] [address] Chris Asencio DO [address] [place] [address] 05/17/2023 10:00 AM EST [facility] [place] [address] Penny Parikh RN [address] [place] [address] 05/28/2023 11:30 AM EST Laboratory Laboratory, [address] [phone] [place] [address] [place] [address] 06/03/2023 2:30 PM EST Office Visit Hematology/Oncology [facility] [address] [facility] [place] [address] Henok Stauffer MD [address] [facility] [place] [address] 06/07/2023 10:30 AM EST Office Visit Gastroenterology, [facility] [address] [facility] [place] [address] Geovanna Bahena CRNP [address] [place] [address] 06/11/2023 1:30 PM EST Office Visit Cardiology, [facility] [address] [facility] [place] [address] Sophy Sands PA-C [address] [place] [address] 07/05/2023 8:00 AM EST Office Visit Nutrition & Weight Management, [facility] [address] [place] [address] Iris Cerrato PA-C [address] [place] [address] 08/08/2023 2:00 PM EDT Office Visit Family Practice [facility] [address] [place] [address] Taty Tobar CRNP [address] [place] [address] 10/03/2023 6:20 PM EDT Office Visit Family Practice [facility] [address] [place] [address] Chris Asencio, DO [address] [place] [address] 11/07/2023 3:40 PM EDT Office Visit [facility] [address] [place] [address] Chris Asencio, DO [address] [place] [address] 02/06/2024 2:00 PM EDT Office Visit [facility] Practice [facility] [address] [place] [address] Taty Tobar CRNP [address] [place] [address] 02/28/2024 1:30 PM EDT Imaging Radiology [facility] 1st Floor, [place] [address] [place] [address] 03/05/2024 2:00 PM EDT Office Visit Ophthalmology, 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 No Care Teams Roll Forger Relationship Specialty Start Date End Date Chris Asencio DO [address] [place] [address] PCP - General Family Medicine 01/07/18 documented as of this encounter
--- OUTSIDE RECORDS SUMMARY | 2023-06-20 00:33 | External Medical Summary | Summary of Care ---
Author Name Unknown Organization [facility] Address [address] [place] [address] Phone [phone] Care Team Providers Care Carriage Setter Name Role Phone Chris Asencio DO Primary Care Provider Reason for Visit * Reason Onset Date Comments Test Results 04/26/2023 Unexpected or In determinate Result Encounter Details Date Type Department Care Team ([facility] st Contact Info) Description 04/26/2023 Telephone Laboratory, [place] [address] [place] [address] Chris Asencio DO [address] [place] [address] Test Results (Unexpected or Indeterminate [...] 1 Each 5 10/20/2020 Active Dexcom G6 Production Officer DeviceIndications:Typ e 2 diabetes mellitus with stage [...] DIRECTED 300 g 4 04/22/2023 Active Methscopolamine [place] 2.5 MG Oral TabletIndications:Irr itable bowel syndrome [...] 06/04/2014 Overview: Signed 06/04/2014 Pranav Sanchez MD [facility] Pharmacy [place] Spinal pain 06/04/2014 02/02/2017 Type 2 diabetes [...] encounter Miscellaneous Notes * Telephone Encounter - Yvette Mcgrath LPN - 04/29/2023 10:18 AM EST [place] radiology calling again, wanting to see if you saw this message. Please address. Thanks. * Telephone Encounter - Brandy López OSA - 04/26/2023 11:51 AM EST Hello- The radiologist discovered an unexpected or indeterminate finding on Liane Alejandre ([id number]) and asks that you review the following [...] Thank you, KATERIN Monet Client Service Rep [facility] [place] documented in this encounter Plan of Treatment Upcoming Encounters Date Type Department Care Team (Late st Contact Info) Description 05/02/2023 2:00 PM EST Office Visit Orthopaedics [facility] 132 [facility] [place] [address] Carlos A Cid MD [address] [place] [phone] 05/06/2023 3:20 PM EST Office Visit Nephrology, [facility] [address] [facility] [place], [place] [address] Eric Day MD [address] [facility] [place], [place] [address] 05/09/2023 1:40 PM EST Office Visit Family Practice [facility] [place] [address] Chris Asencio DO [address] [facility] [place] [address] 05/17/2023 10:00 AM EST Home Visit [facility] [address] [place] [address] Penny Parikh RN [facility] [place] [address] 05/28/2023 11:30 AM EST Laboratory Laboratory, [address] [phone] [address] [address] 06/03/2023 2:30 PM EST Office Visit Hematology/Oncology [facility] [address] [facility] [place], [place] [address] Henok Stauffer MD [address] [facility] [place] [address] 06/07/2023 10:30 AM EST Office Visit Gastroenterology, [facility] [address] Geovanna Bahena CRNP [address] [place] [address] 06/11/2023 1:30 PM EST Office Visit Cardiology, [facility] [address] [place] [address] Sophy Sands [place] [address] [place] [address] 07/05/2023 8:00 AM EST Office Visit Nutrition & Weight Management, [facility] [address] [place] [address] Iris Cerrato PA-C [address] [place] [address] 08/08/2023 2:00 PM EDT Office Visit [facility] Practice [facility] [address] [place] [address] Taty Tobar CRNP [address] [place] [address] 10/03/2023 6:20 PM EDT [facility] [address] [place] [address] Chris Asencio, [address] [place] [address] 11/07/2023 3:40 PM EDT Office Visit [facility] Practice [facility] [address] [place] [address] Chris Asencio, [address] [place] [address] 02/06/2024 2:00 PM EDT [facility] [address] [place] [address] Taty Tobar CRNP [address] [place] [address] 02/28/2024 1:30 PM EDT Imaging Radiology [address] [place] [address] 03/05/2024 2:00 PM EDT Office Visit Ophthalmology, [facility] 132 [facility] [place] [address] Ernie Rivers, DO [address] [place] [address] Scheduled Procedures Name Priority Associated Diagnoses Date/Ti [...] Additional history exists CKD PHOS USE SMARTSET 85889 01/11/202412/25, 09/06/2022, 03/01/2022, Additional history exists Albumin/Creatinine Ratio 01/25/20242 023, 09/06/2022, 11/24/2021, Additional history exists CKD HGB USE SMARTSET 29441 01/25/202401/24, 01/24/2023, 01/10/2023, Additional history exists Diabetic [...] Documents on File Type Date Recorded Patient Stocking And Box Shop Supervisor Expl anation POLST 10/20/2021 [place] [facility] Latest Code Status on File Code Status Date Activated Date Inactivated Comments Full Code 03/30/2022 6:40 AM 03/30/2022 2:12 PM This order reflects the patients wishes and were consensually agreed upon. Question Answer Comments Discussion of Advance Directives occurred with: Patient Does the patient have a Living Will? No Does the patient have Health Care Power of Experimental Aircraft Mechanic? No Care Teams Carriage Setter Relationship Specialty Start Date End Date Chris Asencio DO [address] [place] [address] PCP - General Family Medicine 01/07/18 documented as of this encounter
--- OUTSIDE RECORDS SUMMARY | 2023-06-20 00:34 | External Medical Summary ---
Author Name Unknown Address Unknown Organization K01:[facility] [place] - [address] [facility] [id number] Laboratory Report Ordering Provider Test Date Status HARLEY LOPEZ 04/24/2023 11:18:51 Final Observation Date Value Abnormality Reference (Units ) Status HbA1C 04/24/2023 11:18:51 6.9 Above high normal 4. 0-5.6 (%) Final The use of HbA1c to monitor glycemic status is based on normal hemoglobin and HbA composition. This test should not be used in patients with abnormal hemoglobin that affects the half life of the red blood cell or the in vivo glycation rates. Glucose, estimated average 04/24/2023 11:18:51 151 Above high normal <126 (mg/dL) Spencer galvez Performing Location [facility] [place] - [address] [facility] [id number]
--- OUTSIDE RECORDS SUMMARY | 2023-06-20 00:34 | External Medical Summary | Summary of Care ---
Author Name Unknown Organization [facility] Address [address] [place] [address] Phone [phone] Care Team Providers Care Electric Distribution Engineer Name Role Phone Chris Asencio DO Primary Care Provider Reason for Referral * Evaluate & Treat - Unlimited Visits (Within 10 days (routine)) - Authorized Specialty Diagnoses / Procedures Referred By Kristin mayer Referred To Contact Orthopaedic Surgery / Orthopedics Diagnoses Chronic left shoulder pain Chris Asencio DO [address] [place] [address] Referral ID Status Reason Start Date Expiration Date Visits Requested Visits Authorized [id number] Authorized Specialty Services Required 3 [phone] Question Answer Referral Priority Within 10 days (routine) Where should this appointment be scheduled? [facility] What body part is the patient being seen for? Shoulder What condition is the patient being seen for? Arthritis including related infection Reason for Visit * Reason Comments Return Visit Pt here for return v isit. 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, unspecified whether fpc insulin use ([facility]); Dyslipidemia, goal LDL below 70; Moderate persistent asthma without complication; HTN, goal below 130/80; Pulmonary hypertension, unspecified ([facility]); Gastroesophageal reflux disease with esophagitis without hemorrhage; Hypertensive kidney disease with stage 3b chronic kidney disease ([facility]); Chronic kidney disease, stage 3b ([facility]); Major depressive disorder, recurrent, moderate ([facility]); PTSD (post-traumatic stress disorder); Unspecified mood (affective) disorder ([facility]); Vaginal atrophy; Chronic left shoulder pain Allergies Active Allergy Reactions Criticality Noted Date [...] as of this encounter (statuses as of 04/23/2023) Medications Medication Sig Dispensed Refills Start Date End Date Status Spacer/Aero-Holding Chambers DEVIIndications:Moder ate persistent asthma without complication Use with inhaler. 1 Device 0 07/10/2018 Active multivitamin (MVI) Tablet TAKE 1 TABLET BY MOUTH EVERY DAY FOR SUPPLEMENT 1 09/17/2018 Active ONETOUCH PAWAN BORGES FINE MISC Use up to four times [...] with long-term current use of insulin ([facility]) Use as directed. 1 Each 1 10/20/2020 Active Dexcom G6 SensorIndications:Typ e 2 diabetes mellitus with stage 3a chronic kidney disease, with long-term current use of insulin ([facility]) Use as directed. 1 Each 5 10/20/2020 Active Dexcom G6 Horse Show Judge DeviceIndications:Typ e 2 diabetes mellitus with stage 3a chronic kidney disease, with long-term current use of insulin ([facility]) Use as directed. 1 [...] DIRECTED 300 g 4 04/22/2023 Active Methscopolamine [place] 2.5 MG Oral TabletIndications:Irr itable bowel syndrome [...] as of this encounter (statuses as of 04/23/2023) Active Problems Patient Care Coordination No te [...] as of this encounter (statuses as of 04/23/2023) Resolved Problems Problem Noted Date Diagnosed Date [...] 06/04/2014 Overview: Signed 06/04/2014 Pranav Sanchez MD [facility] Pharm[facility] [place] Spinal pain 06/04/2014 02/02/2017 Type 2 diabetes [...] as of this encounter (statuses as of 04/23/2023) Immunizations Name Administration Dates Next Due COVID-19 mRNA, LNP-s, No Pre serve, 2-Dose Series (Powervation) 09/09/2020,08/19/2020 Pneumococcal Conjugate Vacc, 13 Valent (Prevnar) [...] Sign Reading Time Taken Comments Blood Pressure 110/68 04/23/2023 2:02 PM EST Pulse 70 04/23/2023 2:02 PM EST Temperature 35.6 C (96.1 F) 04/23/2023 2:02 PM ES T Respiratory Rate 16 04/23/2023 2:02 PM EST Oxygen Saturation 97% 04/23/2023 2:02 PM EST Inhaled Oxygen Concentration - - Weight 111.6 kg (246 lb) 04/23/2023 2:02 PM EST Height - - Body Mass Index 36.33 10/12/2022 2:18 PM EDT documented in this encounter Progress Notes * Nazia Asencior Jammie, DO - 04/23/2023 2:11 PM EST Images from the original note were not included. 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,unspecified whether fpc insulin use (HCC) Dyslipidemia, goal LDL below 70 Stable on current regimen Moderate persistent asthma without complication Stable respiratory status Continue to monitor HTN, goal below 130/80 Stable BP Continue meds Pulmonary hypertension, unspecified (HCC) Gastroesophageal reflux disease with esophagitis without hemorrhage stable Hypertensive kidney disease with stage 3b chronic kidney disease (HCC) Chronic kidney disease, stage 3b (HCC) Major depressive disorder, recurrent, moderate (HCC) PTSD (post-traumatic stress disorder) Unspecified mood (affective) disorder (HCC) Vaginal atrophy - Estrogens Conjugated 0.625 MG/GM Vaginal Cream (Premarin); Administer 0.5 g into the vagina at bedtime. Do this 3 evenings per week Chronic left shoulder pain - XR SHOULDER, 2 OR MORE VIEWS - ORTHOPAEDICS REFERRAL OP History of Present Illness Liane Alejandre is a 72 year old female that presents for Return Visit (Pt here for return visit.) Presents in f/u today Doing very well overall And compliant with meds Labs done in December were excellent from the Diabetic control standpoint Having some vaginal irritation and frequent UTI's Notes that her vaginal tissue feels dry Physical Exam Vitals: 04/23/23 1402 Temp: 35.6 C (96.1 F) Pulse: 70 Resp: 16 SpO2: 97% BP: 110/68 Physical Exam Constitutional: Appearance: Normal appearance. HENT: [...] Affect: Mood normal. Behavior: Behavior normal. Wrap-Up Follow-up: Return in about 3 months (around 07/24/2023). | Check-out note: Every other with [facility] prior to next f/u Time: Total time today was 42 minutes excluding any time spent in the performance of separately billed services. documented in this encounter Plan of Treatment Upcoming Encounters Date Type Department Care Team (Late st Contact Info) Description 04/23/2023 3:00 PM EST Imaging Radiology [facility] 1st Floor, [place] [address] [facility] [place] [address] Arrived 04/24/2023 2:00 PM EST Office Visit Pharmacy, [facility] [address] [facility] [place] [address] [facility] [address] [facility] [place] [address] 04/30/2023 2:00 PM EST Office Visit Orthopaedics [facility] [address] [facility] [place] [address] Carlos A Cid MD [address] [place] [phone] 05/06/2023 3:20 PM EST Office Visit Nephrology, [address] [place] [address] Eric Day MD [address] [facility] [place], [place] [address] 05/09/2023 1:40 PM EST Office Visit Family Practice [facility] [address] [place] [address] Chris Asencio DO 132 [place] [address] 05/17/2023 10:00 AM EST [facility] [address] [place] [address] Penny Parikh RN [facility] [place] [address] 05/28/2023 11:30 AM EST Laboratory Laboratory, [place] [address] [place] [phone] [facility] [address] [place] [address] 06/03/2023 2:30 PM EST Office Visit Hematology/Oncology [facility] [address] [place], [place] [address] Henok Stauffer MD [address] [facility] [place], [place] [address] 06/07/2023 10:30 AM EST Office Visit Gastroenterology, [facility] [address] [facility] [place] [address] Geovanna Bahena CRNP [facility] [place] [address] 06/11/2023 1:30 PM EST Office Visit Cardiology, [facility] [address] [facility] [place] [address] Sophy Sands PA-C [address] [place] [address] 07/05/2023 8:00 AM EST Office Visit Nutrition & Weight Management, [facility] [address] [place] [address] Iris Cerrato PA-C [address] [place] [address] 08/08/2023 2:00 PM EDT Office Visit Family Practice [facility] [address] [place] [address] Taty Tobar CRNP [address] [place] [address] 10/03/2023 6:20 PM EDT Office Visit Family Practice [facility] [address] [place] [address] Chris Asencio DO [address] [place] [address] 11/07/2023 3:40 PM EDT Office Visit [facility] Practice [facility] [address] [place] [address] Chris Asencio DO [address] [place] [address] 02/06/2024 2:00 PM EDT Office Visit [facility] Practice [facility] [address] [place] [address] Taty Tobar CRNP [address] [place] [address] 02/28/2024 1:30 PM EDT Imaging Radiology [facility] [address] [facility] [place] [address] 03/05/2024 2:00 PM EDT Office Visit Ophthalmology, [facility] [address] [facility] [place] [address] Ernie Rivers, DO [address] [facility] [address] [place] [address] Pending Results Name Type Priority Associated Diagnoses Date /Time XR SHOULDER, 2 OR MORE VIEWS Medical Imaging Routine Chronic left shoulder pain 04/23/2023 2:36 PM EST Scheduled Orders Name Type Priority Associated Diagnoses Orde r Schedule HEMOGLOBIN A1C Lab Routine Type II diabetes mellitus with neurological manifestations (HCC) Expected: 04/23/2023 (Approximate), Expires: 04/22/2024 Scheduled Procedures Name Priority Associated Diagnoses Date/Ti me COLONOSCOPY FLEXIBLE PROXIMA L DIAGNOSTIC Recall Family history of colon cancer Scheduled Referrals Name Type Priority Associated Diagnoses Order Schedule ORTHOPAEDICS REFERRAL OP Referral Within 10 days (routine) Chronic left shoulder pain Ordered: 04/23/2023 Health Maintenance Due Date Last Done Comments Hepatitis B (1 of 3 - Risk 3-dose series) 2012 Zoster Vaccines (2 of 3) 05/07/2013 03/12/2013 Diabetic Foot Exam 05/23/2021 05/23/2020, 1 06/06/2018, 06/05/2018, Additional history exists COVID-19 Vaccine ( season) 2023 09/09/2020, 08/19/2020 GFR 07/25/2023 01/24/2023, 12/25, 01/03/2023, Additional history exists HbA1c 07/25/2023 01/24/2023, 08/25, 08/10/2022, Additional history exists Depression Screening 10/13/2023 10/12/2022 CKD PHOS USE SMARTSET 29504 01/11/202412/25, 09/06/2022, 03/01/2022, Additional history exists Albumin/Creatinine Ratio 01/25/2024 023, 09/06/2022, 11/24/2021, Additional history exists CKD HGB USE SMARTSET 86161 01/25/202401/24, 01/24/2023, 01/10/2023, Additional history exists Diabetic [...] of this encounter Visit Diagnoses Diagnosis Type II diabetes mellitus with neurological manifestations (HCC)- Primary Type II or unspecified type diabetes mellitus with neurological manifestations, not stated as uncontrolled Type 2 diabetes mellitus with stage 3a chronic kidney disease, with long-term current use of insulin (HCC) Type 2 diabetes mellitus with diabetic nephropathy, with long-term current use of insulin (HCC) 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, unspecified whether superintendent container terminal insulin use (HCC) Dyslipidemia, goal LDL below 70 Other and unspecified hyperlipidemia Moderate persistent asthma without complication Unspecified asthma HTN, goal below 130/80 Unspecified essential hypertension Pulmonary hypertension, unspecified (HCC) Gastroesophageal reflux disease with esophagitis without hemorrhage Hypertensive kidney disease with stage 3b chronic kidney disease (HCC) Chronic kidney disease, stage 3b (HCC) Major depressive disorder, recurrent, moderate (HCC) Major depressive disorder, recurrent episode, moderate PTSD (post-traumatic stress disorder) Posttraumatic stress disorder Unspecified mood (affective) disorder (HCC) Vaginal atrophy Postmenopausal atrophic vaginitis Chronic left shoulder pain Pain in joint, shoulder region documented in this encounter Advance Directives Documents on File Type Date Recorded Patient [employer] Expl anation POLST 10/20/2021 [place] OR [facility] FOR LIFE-SUSTAINING [...] the patient have Health Care Power of Comb Tender? No Care Teams Electric Distribution Engineer Relationship Specialty Start Date End Date Chris Asencio DO [address] [address] PCP - General Family Medicine 01/07/18 documented as of this encounter
--- OUTSIDE RECORDS SUMMARY | 2023-06-20 00:34 | External Medical Summary | Summary of Care ---
Author Name Unknown Organization [facility] Address [address] [place] [place] [address] Phone [phone] Care Team Providers Care Dialysis Technician Name Role Phone Chris Asencio DO Primary Care Provider Reason for Visit * Reason Comments Dosage Adjustment In Person (Anticoag Cl inic) Diabetes Follow-Up Encounter Details Date Type Department Care Team (Late st Contact Info) Description 04/24/2023 10:40 AM EST Office Visit Pharm[facility], [facility] [address] [facility] 132 [facility] [place] [address] Type 2 diabetes mellitus with hemoglobin A1c goal of 7.0%-8.0% ([facility])* Allergies Active Allergy Reactions Criticality Noted Date [...] as of this encounter (statuses as of 04/24/2023) Medications Medication Sig Dispensed Refills Start Date [...] 1 Each 5 10/20/2020 Active Dexcom G6 Linseed Oil Order Filler DeviceIndications:Typ e 2 diabetes mellitus with stage [...] long-term current use of insulin ([facility]) Inject 0.5 mg under the skin once a week. 9 mL 3 03/05/2023 Active Toujeo SoloStar 300 UNIT/ML Subcutaneous Solution Pen-injector (Insulin Glargine (1 Unit Dial))Indications:Typ e 2 diabetes mellitus with stage 3a chronic kidney disease, with long-term current use of insulin ([facility]),Type II diabetes mellitus with neurological manifestations (HCC) [...] long-term current use of insulin ([facility]) Take 2 Tablets by mouth in the morning. 10 Tablet 0 04/15/2023 Active OneTouch Verio In Vitro Strip (Glucose Blood)Indications:Typ e 2 diabetes mellitus with stage 3b chronic kidney disease, with long-term current use of insulin ([facility]) Use up to 3 times a day [...] DIRECTED 300 g 4 04/22/2023 Active Methscopolamine [place] 2.5 MG Oral TabletIndications:Irr itable bowel syndrome [...] as of this encounter (statuses as of 04/24/2023) Active Problems Patient Care Coordination No te [...] as of this encounter (statuses as of 04/24/2023) Resolved Problems Problem Noted Date Diagnosed Date [...] 06/04/2014 Overview: Signed 06/04/2014 Pranav Sanchez MD [facility] Pharm[facility] [place] Spinal pain 06/04/2014 02/02/2017 Type 2 diabetes [...] as of this encounter (statuses as of 04/24/2023) Immunizations Name Administration Dates Next Due COVID-19 [...] money to buy more. Never true 10/13/19 Within the past 12 months, t he [...] as of this encounter Progress Notes * Kate Ye, [facility] - 04/24/2023 10:31 AM EST Medication Therapy Disease Management Clinic - Diabetes Management Progress Note Liane Alejandre, identified by name and date of , is a 72 year old female being seen for diabetes management/education. Patient presents for return diabetic visit. DIABETES: Current diabetic medications: Toujeo U300 22 units daily *rash noted with metformin Ozempic 0.5 mg weekly Novolog 4 units with breakfast Medication Injection Site: Abdomen Lifestyle: Diet: unchanged Glucose Review/SMBG: Readings per patient memory/recall: Patient is currently testing 1-2 times a day Hypoglycemia: Does your blood sugar go below 70 mg/dL? No Hyperglycemia symptoms present: none Recent Labs Units 01/24/23 1357 09/06/22 1235 08/10/22 1122 HEMOGLOBIN A1C - [facility] % 6.0* 6.7* 6.7* Recent Labs Units 01/24/23 1357 01/10/23 0908 01/03/23 1002 ESTIMATED GLOMERULAR FILTRATION RATE - [facility] mL/min 49* 35* 27* CREATININE - [facility] mg/dL 1.2* 1.6* 1.9* HYPERTENSION: Patient on ACEi/ARB: no, not indicated BP Readings from Last 3 Encounters: 04/23/23 110/68 04/16/23 142/80 03/22/23 100/60 Blood pressure at goal: yes HYPERLIPIDEMIA: Patient is taking moderate or high intensity statin: yes HEALTH MAINTENANCE REVIEW: Health Maintenance Due Topic Date Due Hepatitis B (1 of 3 - Risk 3-dose series) Never done Zoster Vaccines (2 of 3) 05/07/2013 Diabetic Foot Exam 05/23/2021 COVID-19 Vaccine ( season) 2023 ASSESSMENT & PLAN: No diagnosis found. BG Readings - Blood sugars controlled. A1c of 6.0%. Medications - Reviewed current regimen, patient is adherent to regimen. Will continue at this time. Diet, Exercise, Lifestyle - No significant lifestyle changes since last visit. Discussed with patient . Patient is agreeable to CGM Patient aware to contact clinic if any hypoglycemia before next visit. MEDICATION CHANGES: no change Diabetic Medications: Toujeo U300 22 units daily *rash noted with metformin Ozempic 0.5 mg weekly Novolog 4 units with breakfast HEALTH MAINTENANCE INTERVENTIONS: Labs: Up to Date Immunizations: Up to Date Foot Exam: Up to Date Eye Exam: Up to Date Annual Wellness Visit: Up to Date FOLLOW UP: This patient has met their goal HgA1C and has been graduated from the [facility] Diabetes Management Program effective today Yes. Kate Ye [facility] Clinical Pharmacist - Bilingual Legal Assistant Medication Therapy Management Clinic 04/24/2023, 10:31 AM documented in this encounter Plan of Treatment Upcoming Encounters Date Type Department Care Team (Late st Contact Info) Description 04/24/2023 11:50 AM EST [facility] [address] [place] [phone] Castillo Garza [address] [place] [address] Type II diabetes mellitus with neurological manifestations (HCC) 04/30/2023 2:00 PM EST [facility] [address] [place] [address] Carlos A Cid MD [address] [phone] 05/06/2023 3:20 PM EST Office Visit Nephrology, [facility] [address] [place] [address] Eric Day MD 200 [facility] [place] [address] 05/09/2023 1:40 PM EST Office Visit Family [facility] [place] [address] Chris Asencio DO [address] [place] [address] 05/17/2023 10:00 AM EST [facility] [place] [address] Penny Parikh RN [address] [facility] [place] [place] [address] 05/28/2023 11:30 AM EST [facility] [place] [address] [place] [phone] [place] [address] [place] [address] 06/03/2023 2:30 PM EST Office Visit Hematology/Oncology [facility] [address] [facility] [place] [address] Henok Stauffer MD [address] [facility] [place] [address] 06/07/2023 10:30 AM EST Office Visit Gastroenterology, [facility] [address] [facility] [place] [address] Geovanna Bahena CRNP [facility] [place] [address] 06/11/2023 1:30 PM EST Office Visit Cardiology, [facility] [address] [facility] [place] [address] Sophy [place] [address] [place] [address] 07/05/2023 8:00 AM EST Office Visit Nutrition & Weight Management, [facility] [address] [place] [address] Iris Cerrato PA-C [address] [place] [address] 08/08/2023 2:00 PM EDT Office Visit [facility] Practice [facility] [address] [place] [address] Taty Tobar CRNP [address] [place] [address] 10/03/2023 6:20 PM EDT Office Visit Family Practice [facility] [address] [place] [address] Chris Asencio DO [address] [place] [address] 11/07/2023 3:40 PM EDT Office Visit [facility] [place] [address] [place] [address] Chris Asencio, [address] [place] [address] 02/06/2024 2:00 PM EDT Office Visit [facility] [place] [address] [place] [address] Taty Tobar CRNP [address] [place] [address] 02/28/2024 1:30 PM EDT Imaging [facility] [address] [place] [address] 03/05/2024 2:00 PM EDT Office Visit Ophthalmology, [facility] [address] [place] [address] Ernie Rivers, DO [address] [place] [address] Scheduled Procedures Name Priority Associated Diagnoses Date/Ti [...] Screening 10/13/2023 10/12/2022 CKD PHOS USE SMARTSET 92959 01/11/202412/25, 09/06/2022, 03/01/2022, Additional history exists Albumin/Creatinine Ratio 01/25/2024 023, 09/06/2022, 11/24/2021, Additional history exists CKD HGB USE SMARTSET 91401 01/25/202401/24, 01/24/2023, 01/10/2023, Additional history exists Diabetic [...] Diagnoses Diagnosis Type 2 diabetes mellitus with hemoglobin A1c goal of 7.0%-8.0% (HCC)- Primary Type II diabetes mellitus with neurological manifestations (HCC) Type II or unspecified type diabetes mellitus with neurological manifestations, not stated as uncontrolled documented in this encounter Advance Directives Documents on File Type Date Recorded Patient [employer] Department Head Expl anation POLST 10/20/2021 [place] OR [facility] FOR LIFE-SUSTAINING [...] the patient have Health Care Power of Stand Grinder? No Care Teams Dialysis Technician Relationship Specialty Start Date End Date Chris Asencio DO [address] [place] [place] [address] PCP - General Family Medicine 01/07/18 documented as of this encounter
--- OUTSIDE RECORDS SUMMARY | 2023-06-20 00:34 | External Medical Summary | Summary of Care ---
Author Name Unknown Organization [facility] Address [address] [place] [facility] [place] [address] Phone [phone] Care Team Providers Care Shake Maker Name Role Phone Chris Asencio DO Primary Care Provider Reason for Visit * Reason Comments Outpatient Testing Encounter Details Date Type Department Care Team (Late st Contact Info) Description 04/24/2023 11:50 AM EST Laboratory Laboratory, [facility] [address] [facility] [place] [address] [facility] [address] [facility] [place] [address] Type II diabetes mellitus with neurological manifestations (HCC) Allergies Active Allergy Reactions Criticality Noted [...] 1 Each 5 10/20/2020 Active Dexcom G6 Operations And Maintenance Technican DeviceIndications:Typ e 2 diabetes mellitus with stage [...] DIRECTED 300 g 4 04/22/2023 Active Methscopolamine Arm[place] 2.5 MG Oral TabletIndications:Irr itable bowel syndrome [...] 06/04/2014 Overview: Signed 06/04/2014 Pranav Sanchez MD [facility] [place] Spinal pain 06/04/2014 02/02/2017 Type 2 diabetes [...] 04/30/2023 2:00 PM EST Office Visit Orthopaedics [facility] [address] [address] Carlos A Cid MD [address] [phone] 05/06/2023 3:20 PM EST Office Visit Nephrology, [facility] [address] [facility] [place] [address] Eric Day MD [address] [facility] [place] [address] 05/09/2023 1:40 PM EST Office Visit Family Practice [facility] [address] [address] Chris Asencio DO [address] [address] 05/17/2023 10:00 AM EST [facility] Visit [facility], [facility] [address] [address] Penny Parikh, RN [address] [address] 05/28/2023 11:30 AM EST [address], [address] [id number] [facility] [address] [place] [place] [address] 06/03/2023 2:30 PM EST Office Visit Hematology/Oncology [facility] [address] [facility] [place] [address] Henok Stauffer MD [address] [facility] [place] [address] 06/07/2023 10:30 AM EST Office Visit Gastroenterology, [facility] [address] [place] [address] Geovanna Bahena CRNP [address] [place] [address] 06/11/2023 1:30 PM EST Office Visit Cardiology, [facility] [address] [place] [address] Sophy Sands PA-C [address] [place] [address] 07/05/2023 8:00 AM EST Office Visit Nutrition & Weight Management, [facility] [address] [place] [address] Iris Cerrato PA-C [address] [place] [address] 08/08/2023 2:00 PM EDT Office Visit Family Practice [facility] [address] [place] [address] Taty Tobar CRNP [address] [place] [address] 10/03/2023 6:20 PM EDT Office Visit Family [facility] [address] [facility] [place] [address] Chris Asencio, DO [address] [facility] [place] [address] 11/07/2023 3:40 PM EDT Office Visit [facility] [address] [facility] [place] [address] Chris Asencio, DO 132 [facility] [place] [address] 02/06/2024 2:00 PM EDT Office Visit [facility] [address] [facility] [place] [address] Taty Tobar CRNP 132 [facility] [place] [address] 02/28/2024 1:30 PM EDT Imaging Radiology [facility] 1st Floor, [place] [address] [facility] [place] [address] 03/05/2024 2:00 PM EDT Office Visit Ophthalmology, [facility] [address] [facility] [place] [address] Ernie Rivers, DO [address] [facility] [place] [address] Pending Results Name Type Priority Associated Diagnoses Date /Time HEMOGLOBIN A1C Lab Routine Type II diabetes mellitus with neurological manifestations (HCC) 04/24/2023 11:18 AM EST Scheduled Procedures Name Priority Associated [...] Screening 10/13/2023 10/12/2022 CKD PHOS USE SMARTSET 97043 01/11/202412/25, 09/06/2022, 03/01/2022, Additional history exists Albumin/Creatinine Ratio 01/25/2024 023, 09/06/2022, 11/24/2021, Additional history exists CKD HGB USE SMARTSET 59206 01/25/202401/24, 01/24/2023, 01/10/2023, Additional history exists Diabetic [...] Documents on File Type Date Recorded Patient Nurses' Association Counselor Expl anation POLST 10/20/2021 [place] [facility] FOR LIFE-SUSTAINING TREATMENT Latest Code Status on File Code Status Date Activated Date Inactivated Comments Full Code 03/30/2022 6:40 AM 03/30/2022 2:12 PM This order reflects the patients wishes and were consensually agreed upon. Question Answer Comments Discussion of Advance Directives occurred with: Patient Does the patient have a Living Will? No Does the patient have Health Care Power of Macroeconomics Professor? No Care Teams Shake Maker Relationship Specialty Start Date End Date Chris Asencio DO [address] [address] PCP - General Family Medicine 01/07/18 documented as of this encounter
--- OUTSIDE RECORDS SUMMARY | 2023-06-20 00:35 | External Medical Summary | Summary of Care ---
Author Name Unknown Organization [facility] Address [address] [facility] [address] Phone [phone] Care Team Providers Care Legal Contracts Specialist Name Role Phone Chris Asencio DO Primary Care Provider Reason for Visit * Reason Onset Date Comments Medication Problem 04/10/2023 Encounter Details Date Type Department Care Team (Late st Contact Info) Description 04/10/2023 Telephone Family Practice [facility] [address] [place] [address] Chris Asencio DO [address] [place] [address] Medication Problem Allergies Active Allergy Reactions Criticality Noted Date [...] as of this encounter (statuses as of 04/17/2023) Medications Medication Sig Dispensed Refills Start Date [...] 1 Each 5 1 Active Dexcom G6 Facility Rehab Director DeviceIndications:T ype 2 diabetes mellitus with stage [...] EVERY DAY 90 Tablet 1 2 Active Diclofenac Sodium 1 % External Gel (Voltaren) PLACE 4 GRAMS TOPICALLY ON THE SKIN TWICE DAILY TO AFFECTED AREAS DIRECTED 300 g 4 2 Active Additional Information Patient taking differently: 2 g QID(AM/NOON/PM/HS), PLACE 4 GRAMS TOPICALLY ON THE SKIN TWICE DAILY TO AFFECTED AREAS DIRECTED, Reported on 12/24/2022 Atorvastatin Calcium 40 MG Oral Tablet (Lipitor) TAKE 1 TABLET BY MOUTH EVERY DAY IN THE MORNING 90 Tablet 3 2 Active Montelukast Sodium 10 MG Oral Tablet (Singulair) TAKE 1 TABLET BY MOUTH EVERY DAY 90 Tablet 2 3 Active Fluticasone Propionate 50 MCG/ACT Nasal Suspension (Flonase)Indication s:LRTI (lower respiratory tract infection),Moderate persistent asthma with acute exacerbation,Acute URI ADMINISTER INTO EACH NOSTRIL 2 SPRAYS IN THE MORNING. 48 mL 2 3 Active Additional Information Patient taking differently:2 [place] Each NostrilBID (.AM/PM), Reported on 12/24/2022 Famotidine 40 MG Oral Tablet (Pepcid) TAKE 1 TABLET BY MOUTH EVERY DAY 90 Tablet 2 3 Active Budesonide 0.5 MG/2ML Inhalation Suspension (Pulmicort)Indicati ons:Acute respiratory disease due to COVID-19 virus INHALE VIA NEBULIZER 1 VIAL IN THE MORNING AND 1 VIAL BEFORE BEDTIME 360 mL 2 3 Active Metoprolol Succinate ER 25 MG Oral Tablet Extended Release 24 Hour (toPROL XL)Indications:PVC' s (premature ventricular contractions) TAKE 1 TAB BY MOUTH EVERY MORNING AND ONE-HALF TAB AT BEDTIME. 135 Tablet 3 3 Active EpiPen 2-Ronni 0.3 MG/0.3ML Injection [...] the morning. 90 Tablet 3 3 Active Prochlorperazine Maleate 10 MG Oral Tablet (Compazine)Indicati ons:Gastroesophagea l reflux disease with esophagitis without hemorrhage,Irritabl e bowel syndrome, unspecified type TAKE 1 TABLET BY MOUTH EVERY 6 HOURS NEEDED FOR NAUSEA 30 Tablet 0 3 Active Additional Information Patient not taking.Reported on 02/01/2023 Diphenoxylate-Atrop ine 2.5-0.025 MG Oral Tablet (Lomotil)Indication [...] at bedtime. 90 Tablet 3 3 Active Methscopolamine [place] 2.5 MG Oral TabletIndications:I rritable bowel syndrome with diarrhea TAKE 1 TAB UP TO 3 TIMES DAILY NEEDED FOR ABDOMINAL CRAMPS & DIARRHEA, 270 Tablet 1 3 Active Pantoprazole Sodium 40 MG Oral [...] the skin with breakfast 0 3 Active Nitrofurantoin Monohyd Macro 100 MG Oral Capsule (Macrobid)Indicatio ns:Suspected urinary tract infection Take 1 Capsule by mouth in the morning and 1 Capsule before bedtime. Do all this for 7 days. With food until gone. 14 Capsule 0 3 023 Active OneTouch Verio In Vitro Strip (Glucose [...] E 11.9 400 Each 5 3 Active Accu-Chek Guide In Vitro Strip (Glucose Blood) Use to test blood sugar three times daily E 11.9 400 Strip 5 3 023 Discontinued Hospital, Clinic, or Other Facility Administered Medication Ordered Dose Route Frequency Start Date End Date Status albuterol sulfate (PROVENTIL) (2.5 MG/3ML) 0.083% inhalation solution 2.5 mgIndications:Moderate persistent asthma without complication 2.5 mg NEBULIZER Q4H PRN 08/13/2018 Active documented as of this encounter (statuses as of 04/17/2023) Active Problems Patient Care Coordination No te [...] as of this encounter (statuses as of 04/17/2023) Resolved Problems Problem Noted Date Diagnosed Date [...] 06/04/2014 Overview: Signed 06/04/2014 Pranav Sanchez MD [facility] [place] Spinal pain 06/04/2014 02/02/2017 Type 2 diabetes [...] as of this encounter (statuses as of 04/17/2023) Immunizations Name Administration Dates Next Due COVID-19 mRNA, LNP-s, No Pre serve, 2-Dose Series (QuantumSphere) 09/09/2020,08/19/2020 Pneumococcal Conjugate Vacc, 13 Valent (Prevnar) [...] Miscellaneous Notes * Telephone Encounter - Bridgette Whitney OSA - 04/17/2023 9:35 AM EST Patient has been notified of the message. Patient has no further questions. * Telephone Encounter - Екатерина Lizarraga MED CHELA - 04/17/2023 8:31 AM EST Unable to reach, left message to return call. * Telephone Encounter - Chris Asencio DO - 04/17/2023 7:44 AM EST Signed Thank you for pending! Dr Asencio * Telephone Encounter - Madison Jones LPN - 04/16/2023 2:22 PM EST Called [facility]-- Accu- Chek strips are not on pts formulary. We need to order the one touch verio strips and the meter that goes with it: flex or reflex and lancets if needed. Pended what's needed for pt * Telephone Encounter - Vy Gold LPN - 04/10/2023 4:40 PM EST Pt is calling to reports that the accu-check test strips are going to cost her $170. States that [facility] told her that Dr. Bhardwaj office has to call the insurance company to override the test strips. documented in this encounter Plan of Treatment Upcoming Encounters Date Type Department Care Team (Late st Contact Info) Description 04/23/2023 2:20 PM EST Office Visit [facility] [address] [place] [address] Chris Asencio, [address] [place] [address] 04/24/2023 2:00 PM EST Office Visit Pharmacy, [facility] [address] [place] [address] [facility] [address] [place] [address] 05/06/2023 3:20 PM EST Office Visit Nephrology, [facility] [address] [facility] [place] [address] Eric Day MD 200 [facility] [place] [address] 05/09/2023 1:40 PM EST Office Visit [facility] [address] [place] [address] Chris Asencio, [address] [place] [address] 05/17/2023 10:00 AM EST Home Visit [facility], [facility] [address] [place] [address] Penny Parikh, RN [address] [place] [address] 05/28/2023 11:30 AM EST Laboratory Laboratory, [place] [address] [place] [facility] [place] [address] [facility] [address] [place] [facility] [address] 06/03/2023 2:30 PM EST Office Visit Hematology/Oncology [facility] [address] [facility] [place] [address] Henok Stauffer MD 200 [facility] [place] [address] 06/07/2023 10:30 AM EST Office Visit Gastroenterology, [facility] [address] [place] [address] Geovanna Bahena CRNP [address] [place] [address] 06/11/2023 1:30 PM EST Office Visit Cardiology, [facility] [address] [place] [address] Sophy Sands PA-C [address] [place] [address] 07/05/2023 8:00 AM EST Office Visit Nutrition & Weight Management, [facility] [address] [place] [address] Iris Cerrato PA-C [address] [place] [address] 08/08/2023 2:00 PM EDT Office Visit Family Practice [facility] [address] [place] [address] Taty Tobar CRNP [address] [place] [address] 10/03/2023 6:20 PM EDT Office Visit [facility] [address] [place] [address] Chris Asencio, DO [address] [place] [address] 11/07/2023 3:40 PM EDT Office Visit [facility] [address] [place] [address] Chris Asencio, DO [address] [place] [address] 02/06/2024 2:00 PM EDT Office Visit [facility] [address] [place] [address] Taty Tobar CRNP [address] [place] [address] 02/28/2024 1:30 PM EDT Imaging Radiology [facility] [facility] [address] [place] [address] 03/05/2024 2:00 PM EDT Office Visit Ophthalmology, [facility] [address] [place] [address] Ernie Rivers, DO [facility] [place] [address] Scheduled Procedures Name Priority Associated Diagnoses Date/Ti me COLONOSCOPY FLEXIBLE PROXIMA L DIAGNOSTIC Recall Family history of colon cancer Health Maintenance Due Date Last Done Comments Hepatitis B (1 of 3 - Risk 3-dose series) 2012 Zoster Vaccines (2 of 3) 05/07/2013 03/12/2013 Diabetic Foot Exam 05/23/2021 05/23/2020, 1 06/06/2018, 06/05/2018, Additional history exists COVID-19 Vaccine (2022- season) 2023 09/09/2020, 08/19/2020 GFR 07/25/2023 01/24/2023, 12/25, 01/03/2023, Additional history exists HbA1c 07/25/2023 01/24/2023, 08/25, 08/10/2022, Additional history exists Depression Screening 10/13/2023 10/12/2022 CKD PHOS USE SMARTSET 41297 01/11/202412/25, 09/06/2022, 03/01/2022, Additional history exists Albumin/Creatinine Ratio 01/25/2024 023, 09/06/2022, 11/24/2021, Additional history exists CKD HGB USE SMARTSET 66072 01/25/202401/24, 01/24/2023, 01/10/2023, Additional history exists Diabetic [...] long-term current use of insulin (HCC)- Primary documented in this encounter Advance Directives Documents on File Type Date Recorded Patient Garbage Person Expl anation POLST 10/20/2021 [place] OR [facility] FOR LIFE-SUSTAINING TREATMENT [...] the patient have Health Care Power of Residential Subcontractor? No Care Teams Legal Contracts Specialist Relationship Specialty Start Date End Date Chris Asencio DO [address] [address] PCP - General Family Medicine 01/07/18 documented as of this encounter
--- OUTSIDE RECORDS SUMMARY | 2023-06-20 00:35 | External Medical Summary | Summary of Care ---
Author Name Unknown Organization [facility] Address [address] [facility] [address] Phone [phone] Care Team Providers Care Enrollment Consultant Name Role Phone Jessica Asencio DO Primary Care Provider Reason for Visit * Reason Comments eRx-Medication Refill Encounter Details Date Type Department Care Team (Late st Contact Info) Description 04/17/2023 Refill Family Practice [facility] [address] [place] [address] Jessica Asencio DO [address] [place] [address] LRTI (lower respiratory tract infection); Moderate persistent asthma with acute exacerbation; Acute URI; Irritable bowel syndrome with diarrhea Allergies Active Allergy Reactions Criticality Noted Date [...] as of this encounter (statuses as of 04/22/2023) Medications Medication Sig Dispensed Refills Start Date [...] 1 Each 5 1 Active Dexcom G6 Activities Director DeviceIndications:T ype 2 diabetes mellitus with [...] EVERY DAY 90 Tablet 1 2 Active Budesonide 0.5 MG/2ML Inhalation Suspension (Pulmicort)Indicati [...] long-term current use of insulin ([facility]) Inject 0.5 mg under the [...] as needed 30 g 0 3 Active predniSONE 20 MG Oral Tablet (Deltasone)Indicati ons:Type 2 diabetes mellitus with stage 3b chronic kidney disease, with long-term current use of insulin (HCC) Take 2 Tablets by mouth in the morning. 10 Tablet 0 3 Active OneTouch Verio In Vitro [...] DIRECTED 300 g 4 3 Active Methscopolamine [place] 2.5 MG Oral TabletIndications:I rritable bowel syndrome with diarrhea TAKE 1 TAB UP TO 3 TIMES DAILY NEEDED FOR ABDOMINAL CRAMPS & DIARRHEA, 270 Tablet 1 3 Active Diclofenac Sodium 1 % External Gel (Voltaren) PLACE 4 GRAMS TOPICALLY ON THE SKIN TWICE DAILY TO AFFECTED AREAS DIRECTED 300 g 4 10/20/202 2 023 Discontinued Atorvastatin Calcium 40 MG Oral Tablet (Lipitor) TAKE 1 TABLET BY MOUTH EVERY DAY IN THE MORNING 90 Tablet 3 2 023 Discontinued Montelukast Sodium 10 MG Oral Tablet (Singulair) TAKE 1 TABLET BY MOUTH EVERY DAY 90 Tablet 2 3 023 Discontinued Fluticasone Propionate 50 MCG/ACT Nasal Suspension (Flonase)Indication s:LRTI (lower respiratory tract infection),Moderate persistent asthma with acute exacerbation,Acute URI ADMINISTER INTO EACH NOSTRIL 2 SPRAYS IN THE MORNING. 48 mL 2 3 023 Discontinued Famotidine 40 MG Oral Tablet (Pepcid) TAKE 1 TABLET BY MOUTH EVERY DAY 90 Tablet 2 3 023 Discontinued Methscopolamine [place] 2.5 MG Oral TabletIndications:I rritable bowel syndrome with diarrhea TAKE 1 TAB UP TO 3 TIMES DAILY NEEDED FOR ABDOMINAL CRAMPS & DIARRHEA, 270 Tablet 1 3 023 Discontinued Nitrofurantoin Monohyd Macro 100 MG Oral Capsule (Macrobid)Indicatio ns:Suspected urinary tract infection Take 1 Capsule by mouth in the morning and 1 Capsule before bedtime. Do all this for 7 days. With food until gone. 14 Capsule 0 3 023 Hospital, Clinic, or Other Facility Administered Medication Ordered Dose Route Frequency Start Date End Date Status albuterol sulfate (PROVENTIL) (2.5 MG/3ML) 0.083% inhalation solution 2.5 mgIndications:Moderate persistent asthma without complication 2.5 mg NEBULIZER Q4H PRN 08/13/2018 Active documented as of this encounter (statuses as of 04/22/2023) Active Problems Patient Care Coordination No te [...] as of this encounter (statuses as of 04/22/2023) Resolved Problems Problem Noted Date Diagnosed Date [...] 06/04/2014 Overview: Signed 06/04/2014 Pranav Sanchez MD [facility] [place] Spinal pain 06/04/2014 02/02/2017 Type 2 diabetes [...] as of this encounter (statuses as of 04/22/2023) Immunizations Name Administration Dates Next Due COVID-19 mRNA, LNP-s, No Pre serve, 2-Dose Series ([employer]) 09/09/2020,08/19/2020 Pneumococcal Conjugate Vacc, 13 Valent (Prevnar) [...] encounter Miscellaneous Notes * Telephone Encounter - Emma Arellano MD - 04/22/2023 12:06 PM EST Signed Prescriptions: Disp Refills Atorvastatin Calcium 40 MG Oral Tablet (Li*90 Tab*3 Sig: TAKE 1 TABLET BY MOUTH EVERY DAY IN THE MORNING Authorizing Provider: JESSICA ASENCIO Ordering User: TRAVIS NOEL Famotidine 40 MG Oral Tablet (Pepcid) 90 Tab*3 Sig: TAKE 1 TABLET BY MOUTH EVERY DAY Authorizing Provider: JESSICA ASENCIO Ordering User: TRAVIS COSTA Montelukast Sodium 10 MG Oral Tablet (Sing*90 Tab*3 Sig: TAKE 1 TABLET BY MOUTH EVERY DAY Authorizing Provider: JESSICA ASENCIO Ordering User: TRAVIS NOEL Fluticasone Propionate 50 MCG/ACT Nasal Avelar*48 mL 3 Sig: Administer 2 Sprays into each nostril in the morning and 2 Sprays before bedtime. Authorizing Provider: EMMA ARELLANO Diclofe nac Sodium 1 % External Gel (Voltar*300 g 4 Sig: PLACE 4 GRAMS TOPICALLY ON THE SKIN TWICE DAILY DIRECTED Authorizing Provider: EMMA ARELLANO Methscopolamine [place] 2.5 MG Oral Tablet 270 Ta*1 Sig: TAKE 1 TAB UP TO 3 TIMES DAILY NEEDED FOR ABDOMINAL CRAMPS & DIARRHEA, Authorizing Provider: EMMA ARELLANO * Telephone Encounter - Travis Noel, [facility] - 04/17/2023 5:10 PM EST Pending Prescriptions: Disp Refills Fluticasone Propionate 50 MCG/ACT Nasal Avelar*48 mL 3 Sig: Administer 2 Sprays into each nostril in the morning and 2 Sprays before bedtime. Diclofenac Sodium 1 % External Gel (Voltar*300 g 4 Sig: PLACE 4 GRAMS TOPICALLY ON THE SKIN TWICE DAILY DIRECTED Methscopolamine [place] 2.5 MG Oral Tablet 270 Ta*1 Sig: T JENNYFER 1 TAB UP TO 3 TIMES DAILY NEEDED FOR ABDOMINAL CRAMPS & DIARRHEA, Signed Prescriptions: Disp Refills Atorvastatin Calcium 40 MG Oral Tablet (Li*90 Tab*3 Sig: TAKE 1 TABLET BY MOUTH EVERY DAY IN THE MORNING Authorizing Provider: JESSICA ASENCIO Ordering User: TRAVIS NOEL Famotidine 40 MG Oral Tablet (Pepcid) 90 Tab*3 Sig: TAKE 1 TABLET BY MOUTH EVERY DAY Authorizing Provider: JESSICA ASENCIO Ordering User: TRAVIS NOEL Montelukast Sodium 10 MG Oral Tablet (Sing*90 Tab*3 Sig: TAKE 1 TABLET BY MOUTH EVERY DAY Authorizing Provider: JESSICA ASENCIO Ordering User: TRAVIS NOEL * Telephone Encounter - Travis Noel RPh - 04/17/2023 5:09 PM EST [facility] is currently not authorized to approve refills for the pended medication(s) per refill protocol. Please approve if appropriate. Thanks, Travis Noel, PharmD Clinical Pharmacist [facility] ([facility]) [phone] 04/17/2023, 5:10 PM documented in this encounter Plan of Treatment Upcoming Encounters Date Type Department Care Team (Late st Contact Info) Description 04/23/2023 2:20 PM EST Office Visit Family Practice [facility] [address] [place] [address] [address] Jessica Asencio, [address] [place] [address] 04/24/2023 2:00 PM EST Office Visit Pharmacy, [facility] [address] [place] [address] [address] [facility] [address] [facility] [place] [address] 05/06/2023 3:20 PM EST Office Visit Nephrology, [facility] [address] [place], [place] [address] Eric Day MD [address] [place], [place] [address] 05/09/2023 1:40 PM EST Office Visit Family Practice [facility] [address] [facility] [place] [address] Jessica Asencio DO [address] [place] [address] 05/17/2023 10:00 AM EST [facility] [address] [place] [address] Penny Parikh RN [address] [place] [address] 05/28/2023 11:30 AM EST Laboratory Laboratory, [address] [id number] [place] [address] [place] [address] 06/03/2023 2:30 PM EST Office Visit Hematology/Oncology [facility] [address] [place], [place] [address] Henok Stauffer MD [address] [place] [address] 06/07/2023 10:30 AM EST Office Visit Gastroenterology, [facility] [address] [place] [address] Geovanna Bahena CRNP [address] [place] [address] 06/11/2023 1:30 PM EST Office Visit Cardiology, [facility] [address] [place] [address] Sophy Sands PALillyC [address] [place] [address] 07/05/2023 8:00 AM EST Office Visit Nutrition & Weight Management, [facility] [address] [place] [address] Iris Cerrato PA-C [address] [place] [address] 08/08/2023 2:00 PM EDT Office Visit [facility] [address] [place] [address] Taty Tobar CRNP [address] [place] [address] 10/03/2023 6:20 PM EDT Office Visit [facility] [address] [place] [address] Jessica Asencio, [address] [place] [address] 11/07/2023 3:40 PM EDT Office Visit [facility] [address] [place] [address] eJssica Asencio, [address] [place] [address] 02/06/2024 2:00 PM EDT Office Visit [facility] [address] [place] [address] Taty Tobar CRNP [address] [place] [address] 02/28/2024 1:30 PM EDT Imaging Radiology [facility] [place] [address] 03/05/2024 2:00 PM EDT Office Visit Ophthalmology, [facility] [address] [facility] [place] [address] Ernie Rivers, DO [address] [place] [address] Scheduled Procedures Name Priority Associated Diagnoses Date/Ti [...] Screening 10/13/2023 10/12/2022 CKD PHOS USE SMARTSET 95184 01/11/202412/25, 09/06/2022, 03/01/2022, Additional history exists Albumin/Creatinine Ratio 01/25/2024 023, 09/06/2022, 11/24/2021, Additional history exists CKD HGB USE SMARTSET 02826 01/25/202401/24, 01/24/2023, 01/10/2023, Additional history exists Diabetic [...] as of this encounter Visit Diagnoses Diagnosis LRTI (lower respiratory tract infection) Other diseases of respiratory system, not elsewhere classified Moderate persistent asthma with acute exacerbation Acute URI Acute upper respiratory infections of unspecified site Irritable bowel syndrome with diarrhea Irritable bowel syndrome documented in this encounter Advance Directives Documents on File Type Date Recorded 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 Question Answer Comments Discussion of Advance Directives occurred with: Patient Does the patient have a Living Will? No Does the patient have Health Care Power of Abstractor? No Care Teams Enrollment Consultant Relationship Specialty Start Date End Date Jessica Asencio DO [address] [place] [address] [address] PCP - General Family Medicine 01/07/18 documented as of this encounter
--- OUTSIDE RECORDS SUMMARY | 2023-06-20 00:35 | External Medical Summary | Summary of Care ---
Author Name Unknown Organization [facility] Address [address] [place] [address] Phone [phone] Care Team Providers Care Senior Windows Engineer Name Role Phone Luis M Chris Sheranay Primary Care Provider Reason for Visit * Reason Onset Date Comments Med Request 04/15/2023 Pt requesting me ds Encounter Details Date Type Department Care Team (Late st Contact Info) Description 04/15/2023 Telephone Dermatology [facility] [address] [place] [address] Services, Scheduling [address] [place] [address] Med Request (Pt requesting meds) Allergies Active Allergy Reactions Criticality Noted Date [...] as of this encounter (statuses as of 04/15/2023) Medications Medication Sig Dispensed Refills Start Date [...] 1 Each 5 1 Active Dexcom G6 Human Resources Department Supervisor DeviceIndications:Ty pe 2 diabetes mellitus with stage [...] 3 Active Additional Information Patient taking differently:2 Justice Each NostrilBID (.AM/PM), Reported on 12/24/2022 Famotidine [...] Active Prochlorperazine Maleate 10 MG Oral Tablet (Compazine)Indicatio ns:Gastroesophageal reflux disease with esophagitis without hemorrhage,Irritable bowel syndrome, unspecified type TAKE 1 TABLET BY MOUTH EVERY 6 HOURS NEEDED FOR NAUSEA 30 Tablet 0 3 Active Additional Information Patient not taking.Reported on 02/01/2023 Diphenoxylate-Atropi ne 2.5-0.025 MG Oral Tablet (Lomotil)Indications [...] bedtime. 90 Tablet 3 3 Active Methscopolamine [place] 2.5 MG Oral TabletIndications:Ir ritable bowel syndrome [...] long-term current use of insulin ([facility]) Inject 0.5 mg under the skin once a week. 9 mL 3 3 Active Toujeo SoloStar 300 UNIT/ML Subcutaneous Solution Pen-injector (Insulin Glargine (1 Unit Dial))Indications:Ty pe 2 diabetes mellitus with stage 3a chronic kidney disease, with long-term current use of insulin ([facility]),Type II diabetes mellitus with neurological manifestations (HCC) INJECT UNDER THE SKIN 20 units in am. 0 3 Active NovoLOG FlexPen 100 UNIT/ML Subcutaneous Solution Pen-injector (insulin aspart)Indications:N ot taking 4 units under the skin with breakfast 0 3 Active Accu-Chek Guide In Vitro Strip (Glucose Blood) Use to test blood sugar three times daily E 11.9 400 Strip 5 3 Active Nitrofurantoin Monohyd Macro 100 MG Oral Capsule (Macrobid)Indication s:Suspected urinary tract infection Take 1 Capsule by mouth in the morning and 1 Capsule before bedtime. Do all this for 7 days. With food until gone. 14 Capsule 0 3 04/17/20 23 Active Triamcinolone Acetonide 0.1 % External Cream (Aristocort)Indicati ons:Rash and nonspecific skin eruption Apply to rash on body nightly as needed 30 g 0 3 Active predniSONE 20 MG Oral Tablet (Deltasone)Indicatio ns:Type 2 diabetes mellitus with stage 3b chronic kidney disease, with long-term current use of insulin ([facility]) Take 2 Tablets by mouth in the morning. 10 Tablet 0 3 Active predniSONE 20 MG Oral Tablet (Deltasone)Indicatio ns:Type 2 diabetes mellitus with stage 3b chronic kidney disease, with long-term current use of insulin ([facility]) Take 2 Tablets by mouth in the morning for 5 days. 10 Tablet 0 3 04/15/20 23 Discontinu ed(Refill) Hospital, Clinic, or Other Facility Administered Medication Ordered Dose Route Frequency Start Date End Date Status albuterol sulfate (PROVENTIL) (2.5 MG/3ML) 0.083% inhalation solution 2.5 mgIndications:Moderate persistent asthma without complication 2.5 mg NEBULIZER Q4H PRN 08/13/2018 Active documented as of this encounter (statuses as of 04/15/2023) Active Problems Patient Care Coordination No te [...] as of this encounter (statuses as of 04/15/2023) Resolved Problems Problem Noted Date Diagnosed Date [...] 06/04/2014 Overview: Signed 06/04/2014 Pranav Sanchez MD [facility] [place] Spinal pain 06/04/2014 02/02/2017 Type 2 diabetes [...] as of this encounter (statuses as of 04/15/2023) Immunizations Name Administration Dates Next Due COVID-19 mRNA, LNP-s, No Pre serve, 2-Dose Series (An[employer]on) 09/09/2020,08/19/2020 Pneumococcal Conjugate Vacc, 13 Valent (Prevnar) [...] encounter Miscellaneous Notes * Addendum Note - Tati Bolton MD - 04/15/2023 2:03 PM ESTAddended by: TATI BOLTON on: 04/15/2023 02:03 PM Modules accepted: Orders * Addendum Note - Boris Davis MED ASSIST - 04/15/2023 11:21 AM ESTAddended by: BORIS DAVIS on: 04/15/2023 11:21 AM Modules accepted: Orders * Telephone Encounter - Boris Davis MED ASSIST - 04/15/2023 11:18 AM EST Pending Prescriptions: Disp Refills Triamcinolone Acetonide 0.1 % External Cr*30 g 0 Sig: Apply to rash on body nightly as needed predniSONE 20 MG Oral Tablet (Deltasone) 10 Tab*0 Sig: Take 2 Tablets by mouth in the morning. Last Visit: 10/18/2022 (in office), 08/22/2022 (telemedicine) Next Visit: Visit date not found Last medication order date: 02/2023- prednisone 08/16 triamcinolone ACTION FOR REFILL: Prescriptions pended for your approval. * Telephone Encounter - Lenora Vasquez OSA - 04/15/2023 10:44 AM EST Richie, Patient called. Would like refill on this cream and prednisone. Pharmacy [facility] [place] Triamcinolone Acetonide 0.1 % External Cream (Aristocort) (Discontinued) 30 g 0 Pt requesting Prednisone as well. Thank you. KATERIN Rodrigues documented in this encounter Plan of Treatment Upcoming Encounters Date Type Department Care Team (Late st Contact Info) Description 04/16/2023 10:00 AM EST Home Visit [facility] [address] [place] [address] Penny Parikh RN [address] [place] [address] 04/23/2023 2:20 PM EST Office Visit [facility] [address] [place] [address] [address] Chris Asencio, [address] [place] [address] 04/24/2023 2:00 PM EST Office Visit Pharmacy, [facility] [address] [place] [address] [facility] [address] [place] [address] 05/06/2023 3:20 PM EST Office Visit Nephrology, [facility] [address] [place] [address] Eric Day MD [address] [place] [address] 05/09/2023 1:40 PM EST Office Visit [facility] [address] [place] [address] [address] Chris Asencio, [address] [place] [address] 05/28/2023 11:30 AM EST Laboratory Laboratory, [place] [address] [employer] [place] [phone] [facility] [address] [facility] [place] [address] 06/03/2023 2:30 PM EST [facility] [address] [facility] [place] [address] Henok Stauffer MD [address] [facility] [place] [address] 06/07/2023 10:30 AM EST Office Visit Gastroenterology, [facility] [address] [place] [address] Geovanna Bahena CRNP [address] [place] [address] 06/11/2023 1:30 PM EST Office Visit Cardiology, [facility] [address] [place] [address] Sophy Sands PA-C [address] [place] [address] 07/05/2023 8:00 AM EST Office Visit Nutrition & Weight Management, [facility] [address] [place] [address] Iris Cerrato PA-C [address] [place] [address] 08/08/2023 2:00 PM EDT Office Visit Family Practice [facility] [address] [place] [address] Taty oTbar CRNP [address] [place] [address] 10/03/2023 6:20 PM EDT Office Visit [facility] [address] [facility] [place] [address] Chris Asencio, DO [address] [facility] [place] [address] 11/07/2023 3:40 PM EDT Office Visit [facility] [address] [facility] [place] [address] Chris Asencio, DO [address] [facility] [place] [address] 02/06/2024 2:00 PM EDT Office Visit [facility] [address] [facility] [place] [address] Taty Tobar CRNP [address] [place] [address] 02/28/2024 1:30 PM EDT Imaging Radiology [facility] 1st Floor, [place] [address] [facility] [place] [address] 03/05/2024 2:00 PM EDT Office Visit Ophthalmology, [facility] [address] [facility] [place] [address] Ernie Rivers, DO [address] [place] [address] Scheduled Procedures Name Priority Associated Diagnoses Date/Ti me COLONOSCOPY FLEXIBLE PROXIMA L DIAGNOSTIC Recall Family history of colon cancer Health Maintenance Due Date Last Done Comments Hepatitis B (1 of 3 - Risk 3-dose series) 2012 Zoster Vaccines (2 of 3) 05/07/2013 03/12/2013 Diabetic Foot Exam 05/23/2021 05/23/2020, 1 06/06/2018, 06/05/2018, Additional history exists COVID-19 Vaccine (3 - 2022-24 season) 2023 09/09/2020, 08/19/2020 GFR 07/25/2023 01/24/2023, 12/25, 01/03/2023, Additional history exists HbA1c 07/25/2023 01/24/2023, 08/25, 08/10/2022, Additional history exists Depression Screening 10/13/2023 10/12/2022 CKD PHOS USE SMARTSET 17093 01/11/202412/25, 09/06/2022, 03/01/2022, Additional history exists Albumin/Creatinine Ratio 01/25/2024 023, 09/06/2022, 11/24/2021, Additional history exists CKD HGB USE SMARTSET 71723 01/25/202401/24, 01/24/2023, 01/10/2023, Additional history exists Diabetic [...] eruption Rash and other nonspecific skin eruption Type 2 diabetes mellitus with stage 3b chronic kidney disease, with long-term current use of insulin (HCC) documented in this encounter Advance Directives Documents on File Type Date Recorded 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 No Care Teams Senior Windows Engineer Relationship Specialty Start Date End Date Chris Asencio DO [address] [place] [address] [address] PCP - General Family Medicine 01/07/18 documented as of this encounter
--- OUTSIDE RECORDS SUMMARY | 2023-06-20 00:35 | External Medical Summary | Summary of Care ---
Author Name Unknown Organization [facility] Address [address] [facility] [address] Phone [phone] Care Team Providers Care Family Coach Name Role Phone Chris Asencio DO Primary Care Provider Reason for Visit * Reason Comments [facility]: Maintenance Encounter Details Date Type Department Care Team (Late st Contact Info) Description 04/16/2023 10:00 AM EST [facility] Visit [facility], [facility] [address] [place] [address] Penny Parikh, RN [address] [place] [address] Allergies Active Allergy Reactions Criticality Noted Date [...] as of this encounter (statuses as of 04/16/2023) Medications Medication Sig Dispensed Refills Start Date [...] 1 Each 5 10/20/2020 Active Dexcom G6 Biological Sciences Instructor DeviceIndications:Typ e 2 diabetes mellitus with stage [...] EVERY DAY 90 Tablet 1 09/22/2021 Active Diclofenac Sodium 1 % External Gel (Voltaren) PLACE 4 GRAMS TOPICALLY ON THE SKIN TWICE DAILY TO AFFECTED AREAS DIRECTED 300 g 4 03/15/2022 Active Additional Information Patient taking differently: 2 g QID(AM/NOON/PM/HS), PLACE 4 GRAMS TOPICALLY ON THE SKIN TWICE DAILY TO AFFECTED AREAS DIRECTED, Reported on 12/24/2022 Atorvastatin Calcium 40 MG Oral Tablet (Lipitor) TAKE 1 TABLET BY MOUTH EVERY DAY IN THE MORNING 90 Tablet 3 04/04/2022 Active Montelukast Sodium 10 MG Oral Tablet (Singulair) TAKE 1 TABLET BY MOUTH EVERY DAY 90 Tablet 2 08/06/2022 Active Fluticasone Propionate 50 MCG/ACT Nasal Suspension (Flonase)Indications: LRTI (lower respiratory tract infection),Moderate persistent asthma with acute exacerbation,Acute URI ADMINISTER INTO EACH NOSTRIL 2 SPRAYS IN THE MORNING. 48 mL 2 08/06/2022 Active Additional Information Patient taking differently:2 [place] Each NostrilBID (.AM/PM), Reported on 12/24/2022 Famotidine 40 MG Oral Tablet (Pepcid) TAKE 1 TABLET BY MOUTH EVERY DAY 90 Tablet 2 08/06/2022 Active Budesonide 0.5 MG/2ML Inhalation Suspension (Pulmicort)Indication s:Acute respiratory disease due to COVID-19 virus INHALE VIA NEBULIZER 1 VIAL IN THE MORNING AND 1 VIAL BEFORE BEDTIME 360 mL 2 08/06/2022 Active Metoprolol Succinate ER 25 MG Oral Tablet Extended Release 24 Hour (toPROL XL)Indications:PVC's (premature ventricular contractions) TAKE 1 TAB BY MOUTH EVERY MORNING AND ONE-HALF TAB AT BEDTIME. 135 Tablet 3 08/06/2022 Active EpiPen 2-Ronni 0.3 MG/0.3ML Injection [...] at bedtime. 90 Tablet 3 10/23/2022 Active Methscopolamine Junior 2.5 MG Oral TabletIndications:Irr itable bowel syndrome with diarrhea TAKE 1 TAB UP TO 3 TIMES DAILY NEEDED FOR ABDOMINAL CRAMPS & DIARRHEA, 270 Tablet 1 11/08/2022 Active Pantoprazole Sodium 40 MG Oral Tablet [...] disease, with long-term current use of insulin ([facility]) Inject 0.5 mg under the skin once a week. 9 mL 3 03/05/2023 Active Toujeo SoloStar 300 UNIT/ML Subcutaneous Solution Pen-injector (Insulin Glargine (1 Unit Dial))Indications:Typ e 2 diabetes mellitus with stage 3a chronic kidney disease, with long-term current use of insulin ([facility]),Type II diabetes mellitus with neurological manifestations ([facility]) INJECT UNDER THE SKIN 20 units in am. 0 03/22/2023 Active NovoLOG FlexPen 100 UNIT/ML Subcutaneous Solution Pen-injector (insulin aspart)Indications:No t taking 4 units under the skin with breakfast 0 03/22/2023 Active Accu-Chek Guide In Vitro Strip (Glucose Blood) Use to test blood sugar three times daily E 11.9 400 Strip 5 04/09/2023 Active Nitrofurantoin Monohyd Macro 100 MG Oral Capsule (Macrobid)Indications :Suspected urinary tract infection Take 1 Capsule by mouth in the morning and 1 Capsule before bedtime. Do all this for 7 days. With food until gone. 14 Capsule 0 04/10/2023 3 Active Triamcinolone Acetonide 0.1 % External Cream (Aristocort)Indicatio ns:Rash and nonspecific skin eruption Apply to rash on body nightly as needed 30 g 0 04/15/2023 Active predniSONE 20 MG Oral Tablet (Deltasone)Indication s:Type 2 diabetes mellitus with stage 3b chronic kidney disease, with long-term current use of insulin ([facility]) Take 2 Tablets by mouth in the morning. 10 Tablet 0 04/15/2023 Active Hospital, Clinic, or Other Facility Administered Medication Ordered Dose Route Frequency Start Date End Date Status albuterol sulfate (PROVENTIL) (2.5 MG/3ML) 0.083% inhalation solution 2.5 mgIndications:Moderate persistent asthma without complication 2.5 mg NEBULIZER Q4H PRN 08/13/2018 Active documented as of this encounter (statuses as of 04/16/2023) Active Problems Patient Care Coordination No te [...] as of this encounter (statuses as of 04/16/2023) Resolved Problems Problem Noted Date Diagnosed Date [...] MD [facility] [place] Spinal pain 06/04/2014 02/02/2017 Type 2 diabetes [...] as of this encounter (statuses as of 04/16/2023) Immunizations Name Administration Dates Next Due COVID-19 [...] Sign Reading Time Taken Comments Blood Pressure 142/80 04/16/2023 10:33 AM EST Pulse 62 04/16/2023 10:33 AM EST Temperature 36.9 C (98.4 F) 04/16/2023 10:[address] Respiratory Rate 18 04/16/2023 10:33 AM EST Oxygen Saturation 95% 04/16/2023 10:33 AM EST Inhaled Oxygen Concentration - - Weight - - Height - - Body Mass Index - - documented in this encounter Progress Notes * Penny Parikh, RN - 04/16/2023 10:25 AM EST [facility] [employer] [facility] [employer] Consultant Visit Date: 04/16/2023 Time: 10:25 AM Name: Liane Alejandre : 1950 Current Concerns: Pt seen for return RNCM visit Uses Dexcom G7 for blood sugar monitoring Also has a glucometer and checks blood sugar manually daily to compare Per Dexcom log, readings for the past week averate 134 and she has been in range 91%- of the time She feels she is doing well with her diabetes management Pt reports she has had to use her rescue inhaler more Feels she has been a little more SOB than normal Lungs are clear bilaterally. No increased LE edema Vitals stable Physical Exam: BP 142/80 | Pulse 62 | Temp 36.9 C (98.4 F) | Resp 18 | SpO2 95% Pain 0 Physical Exam Constitutional: General: She is not in acute distress. Cardiovascular: Rate and Rhythm: Normal rate and regular rhythm. Pulses: Normal pulses. Heart sounds: Normal heart sounds. Pulmonary: Effort: Pulmonary effort is normal. Breath sounds: Normal breath sounds. Abdominal: General: Bowel sounds are normal. Palpations: Abdomen is soft. Musculoskeletal: Right lower leg: Edema present. Left lower leg: Edema present. Skin: General: Skin is warm and dry. Neurological: Mental Status: She is alert and oriented to person, place, and time. Problems/Symptoms: Review of Systems Constitutional: Negative. HENT: Negative. Eyes: Negative. Respiratory: Positive for shortness of breath. Cardiovascular: Positive for leg swelling. Gastrointestinal: Negative. Endocrine: Negative. Genitourinary: Negative. Musculoskeletal: Positive for arthralgias. Skin: Negative. Neurological: Negative. Hematological: Negative. Psychiatric/Behavioral: Negative. Medication Reconciliation: (See medication list) Does patient take medications as ordered: Yes Patient Well Being: PHQ2/9: No questionnaires available. No change in living situation Denies falls [facility] Completed this Visit: No. Routine visit and No falls since last visit Advanced Care Planning: POLST. Patient's Goals of Care: To be able to work in garden Be useful to others Reinforcement/Education: Educated on home safety: Create a fall proof home Clear floors of clutter, loose wires, throw rugs, and cords. Make sure halls, stairways, and entrances are well lit. Install a nightlight in your bedroom, hallway and bathroom. Install grab bars or handrails in the bathroom and on stairs. Use a non-skid tub/shower mat. Avoid climbing on a chair; instead use a step stool with a high handrail. Keep sidewalks and steps in good repair Keep steps and sidewalks free of snow and ice. Using aids to support and prevent falls If you have poor balance or have fallen in the past, consider additional support such as a cane or walker. Use a cane with good support and that is the proper length for you. Use a walker if a cane doesnt provide enough support. Avoid medications that increase the risk of falling by causing dizziness, change in sensation or slowed reflexes. Certain medicines may cause falls - blood pressure pills, heart medicines, water pills, or sleepingpills. Be sure to understand each medicine that you are taking and any side effects that may occur. Improve your balance and flexibility with muscle strengthening exercises. Ask your health care provider for some exercises that will be right for you. Reinforced safety education and fall prevention. and Reinforced medication regimen. Timing., Dosing., and Purspose. Treatment/Plan: Continue to hold bp meds until otherwise instructed Compression socks - on in am, off in pm Low sodium diet Dexcom G7 for glucose monitoring MTM for DM management Elevate legs when sitting Follow up with nephrology Home Interventions Provided: Home Intervention: Other; eval Reinforced current Plan of Care, including self-management and medication regimen Patient's 'Red Flags': N/V/D Decreased urine output Increased weakness or fatigue Patient Needs to Remember: Call [facility] at with any new or worsening health concerns or problems, red flag symptoms. Referrals Needed: Other none Follow Up: Is there cellular connectivity/connectivity in the home? Yes Does the patient have internet in the home? Yes Patient encouraged to call the intake phone number for all urgent but not emergent issues. Is the patient new to [facility] within the last 30 days? No, Assess appropriateness for upcoming telehealth visits. Cancel telehealth visits & schedule home visit with care steam pressure chamber operator(s)as indicated. Provider is in agreement with Plan of Care: Yes Scheduled to follow up with patient in 5 weeks. Penny Parikh RN 04/16/2023 10:25 AM documented in this encounter Plan of Treatment Upcoming Encounters Date Type Department Care Team (Late st Contact Info) Description 04/23/2023 2:20 PM EST Office Visit Family [facility] [address] [place] [address] Chris Asencio DO [address] [place] [address] 04/24/2023 2:00 PM EST Office Visit Pharmacy, [facility] [address] [place] [address] [facility] [address] [place] [address] 05/06/2023 3:20 PM EST Office Visit Nephrology, [facility] [address] [place] [address] Eric Day MD [address] [place] [address] 05/09/2023 1:40 PM EST Office Visit [facility] [address] [place] [address] Chris Asencio DO [address] [place] [address] 05/17/2023 10:00 AM EST [facility] 132 [facility] [place] [address] Penny Parikh RN 132 [place] [address] 05/28/2023 11:30 AM EST Laboratory Laboratory, [place] [address] [place] [id number] [facility] [address] [place] [address] 06/03/2023 2:30 PM EST Office Visit Hematology/Oncology [facility] 200 [facility] [place] [address] Henok Stauffer MD 200 [facility] [place] [address] 06/07/2023 10:30 AM EST Office Visit [facility]ology, [facility] [address] Geovanna Bahena CRNP 132 [facility] [address] 06/11/2023 1:30 PM EST Office Visit Cardiology, [facility] 132 [facility] [place] [address] Sophy Sands [place] 132 [facility] [place] [address] 07/05/2023 8:00 AM EST Office Visit Nutrition & Weight Management, [facility] [address] [place] [address] Iris Cerrato PA-C [address] [place] [address] 08/08/2023 2:00 PM EDT Office Visit [facility] [address] [place] [address] Taty Tobar CRNP [address] [place] [address] 10/03/2023 6:20 PM EDT Office Visit [facility] [address] [place] [address] Chris Asencio DO [address] [place] [address] 11/07/2023 3:40 PM EDT Office Visit [facility] [address] [place] [address] Chris Asencio DO [address] [place] [address] 02/06/2024 2:00 PM EDT Office Visit [facility] [address] [place] [address] Taty Tobar CRNP [address] [place] [address] 02/28/2024 1:30 PM EDT Imaging [facility] [address] [place] [address] 03/05/2024 2:00 PM EDT Office Visit Ophthalmology, [facility] [address] [place] [address] Ernie Rivers DO [address] [facility] [address] [place] [address] Scheduled Procedures Name Priority Associated Diagnoses Date/Ti [...] Screening 10/13/2023 10/12/2022 CKD PHOS USE SMARTSET 56286 01/11/202412/25, 09/06/2022, 03/01/2022, Additional history exists Albumin/Creatinine Ratio 01/25/2024 023, 09/06/2022, 11/24/2021, Additional history exists CKD HGB USE SMARTSET 87128 01/25/202401/24, 01/24/2023, 01/10/2023, Additional history exists Diabetic Eye Exam 02/22/2024 02/21/2023, , 02/21/2023, Additional history exists Mammogram 02/27/2024 02/26/2023, 12/26, 01/02/2022, Additional history exists COLONOSCOPY-EVERY 5 YRS AGES 18-100 03/17/2026 03/17/2021, 03/17/2021, 12/07/2014, Additional history exists DTaP,Tdap,and Td Vaccines (3 - Td or Tdap) 04/16/2026 04/16/2016, 04/12/2006 Lipid Panel 01/25/2028 01/24/2023, 0407/2022, 03/01/2022, Additional history exists DXA Scan 08/22/2031 [...] Documents on File Type Date Recorded 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 Question Answer Comments Discussion of Advance Directives occurred with: Patient Does the patient have a Living Will? No Does the patient have Health Care Power of Wood Cutter? No Care Teams Family Coach Relationship Specialty Start Date End Date Chris Asencio DO [address] [place] [address] PCP - General Family Medicine 01/07/18 documented as of this encounter
--- OUTSIDE RECORDS SUMMARY | 2023-06-20 00:35 | External Medical Summary | Summary of Care ---
Author Name Unknown Organization [facility] Address [address] [place] [address] Phone [phone] Care Team Providers Care Material Handling Supervisor Name Role Phone Asencio Chris Fabiananay Primary Care Provider Reason for Visit * Reason Comments eRx-Medication Refill Encounter Details Date Type Department Care Team (Late st Contact Info) Description 04/17/2023 Refill Dermatology [facility] 200 [facility] [place] [address] Tati Bolton MD 200 [facility] [place] [address] Rash and nonspecific skin eruption Allergies Active [...] 1 Each 5 10/20/2020 Active Dexcom G6 Pile Driver Operator Barge Mounted DeviceIndications:Typ e 2 diabetes mellitus with stage [...] TO AFFECTED AREAS DIRECTED, Reported on 12/24/2022 Fluticasone Propionate 50 MCG/ACT Nasal Suspension (Flonase)Indications: LRTI (lower respiratory tract infection),Moderate persistent asthma with acute exacerbation,Acute URI ADMINISTER INTO EACH NOSTRIL 2 SPRAYS IN THE MORNING. 48 mL 2 08/06/2022 Active Additional Information Patient taking differently:2 [place] Each NostrilBID (.AM/PM), Reported on 12/24/2022 Budesonide 0.5 MG/2ML Inhalation Suspension (Pulmicort)Indication s:Acute [...] bedtime. 90 Tablet 3 10/23/2022 Active Methscopolamine [place] 2.5 MG Oral TabletIndications:Irr itable bowel syndrome [...] insulin ([facility]) Inject 0.5 mg under the skin once a week. 9 mL 3 03/05/2023 Active Toujesseo SoloStar 300 UNIT/ML Subcutaneous Solution Pen-injector (Insulin [...] the skin with breakfast 0 03/22/2023 Active Nitrofurantoin Monohyd Macro 100 MG Oral [...] EVERY DAY 90 Tablet 3 04/17/2023 Active Hospital, Clinic, or Other Facility Administered [...] 06/04/2014 Overview: Signed 06/04/2014 Pranav Sanchez MD [facility] Pharm[facility] [place] Spinal pain 06/04/2014 02/02/2017 Type 2 diabetes [...] mRNA, LNP-s, No Pre serve, 2-Dose Series ([employer]) 09/09/2020,08/19/2020 Pneumococcal Conjugate Vacc, 13 Valent (Prevnar) [...] encounter Miscellaneous Notes * Telephone Encounter - Tati Bolton MD - 04/17/2023 5:21 PM EST Refused Prescriptions: Disp Refills Triamcinolone Acetonide 0.1 % External Cre*30 g 0 Sig: APPLY TORASH ON BODY NIGHTLY NEEDEDRefused By: TATI BOLTON LReason for Refusal: Duplicate Request * Telephone Encounter - Jennifer Stern LPN - 04/17/2023 10:12 AM EST Pending Prescriptions: Disp Refills Triamcinolone Acetonide 0.1 % External Cre*30 g 0 Sig: Apply torash on body nightly as needed documented in this encounter Plan of Treatment Upcoming Encounters Date Type Department Care Team (Late st Contact Info) Description 04/23/2023 2:20 PM EST Office Visit Family Practice [facility] [address] [place] [address] Chris Asencio, [address] [place] [address] 04/24/2023 2:00 PM EST Office Visit Pharmacy, [facility] [place] [address] [address] [facility] [place] [address] [place] [address] 05/06/2023 3:20 PM EST Office Visit Nephrology, [facility] [address] [place] [address] Eric Day MD [address] [place] [address] 05/09/2023 1:40 PM EST Office Visit [facility] [address] [place] [address] Chris Asencio, [address] [place] [address] 05/17/2023 10:00 AM EST [facility] [address] [place] [address] Penny Parikh, RN [address] [place] [address] 05/28/2023 11:30 AM EST Laboratory Laboratory, [place] [address] [place] [id number] [facility] [address] [facility] [place] [address] 06/03/2023 2:30 PM EST Office Visit [facility]ology[facility] [address] [facility] [place] [address] Henok Stauffer MD 200 [facility] [place] [address] 06/07/2023 10:30 AM EST Office Visit Gastroenterology, [facility] [address] [place] [address] Geovanna Bahena CRNP [address] [place] [address] 06/11/2023 1:30 PM EST Office Visit Cardiology, [facility] [address] [place] [address] Sophy Sands PA-C [address] [place] [address] 07/05/2023 8:00 AM EST Office Visit Nutrition & Weight Management, [facility] [address] [place] [address] Iris Cerrato PA-C [address] [place] [address] 08/08/2023 2:00 PM EDT Office Visit Family Practice [facility] [address] [place] [address] Tayt Tobar CRNP [address] [place] [address] 10/03/2023 6:20 PM EDT Office Visit [facility] [address] [place] [address] Chris Asencio, DO [address] [place] [address] 11/07/2023 3:40 PM EDT Office Visit [facility] [address] [place] [address] Chris Asencio, DO [address] [place] [address] 02/06/2024 2:00 PM EDT Office Visit [facility] 132 [facility] [place] [address] Taty Tobar CRNP [address] [place] [address] 02/28/2024 1:30 PM EDT Imaging Radiology [facility] 1st Floor, [place] 132 [facility] [place] [address] 03/05/2024 2:00 PM EDT Office Visit Ophthalmology, [facility] 132 [facility] [place] [address] Ernie Rivers, DO 21 [facility] [place] [address] Scheduled Procedures Name Priority Associated Diagnoses Date/Ti [...] Screening 10/13/2023 10/12/2022 CKD PHOS USE SMARTSET 44030 01/11/202412/25, 09/06/2022, 03/01/2022, Additional history exists Albumin/Creatinine Ratio 01/25/2024 023, 09/06/2022, 11/24/2021, Additional history exists CKD HGB USE SMARTSET 15288 01/25/202401/24, 01/24/2023, 01/10/2023, Additional history exists Diabetic [...] Documents on File Type Date Recorded 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 Question Answer Comments Discussion of Advance Directives occurred with: Patient Does the patient have a Living Will? No Does the patient have Health Care Power of Pants Presser Automatic? No Care Teams Material Handling Supervisor Relationship Specialty Start Date End Date Chris Asencio DO [address] [place] [address] PCP - General Family Medicine 01/07/18 documented as of this encounter
--- OUTSIDE RECORDS SUMMARY | 2023-06-20 00:35 | External Medical Summary | Summary of Care ---
Author Name Unknown Organization [facility] Address [address] [facility] [address] Phone [phone] Care Team Providers Care Juice Mixer Name Role Phone Luis M Chris Agudelo DO Primary Care Provider Reason for Visit * Reason Comments eRx-Medication Refill Encounter Details Date Type Department Care Team (Late st Contact Info) Description 04/17/2023 Refill Cardiology, [facility] [address] [place] [phone] Alexia Parikh PA-C [address] [place] [address] PVC's (premature ventricular contractions) Allergies Active Allergy Reactions Criticality Noted Date [...] 1 Each 5 1 Active Dexcom G6 Registered Nurse Cardiovascular Icu DeviceIndications:T ype 2 diabetes mellitus with stage [...] 3 Active Additional Information Patient taking differently:2 [place] Each NostrilBID (.AM/PM), Reported on 12/24/2022 Famotidine [...] bedtime. 90 Tablet 3 3 Active Methscopolamine [place] 2.5 MG Oral TabletIndications:I rritable bowel syndrome [...] a week. 9 mL 3 3 Active Toufrederick SoloStar 300 UNIT/ML Subcutaneous Solution Pen-injector (Insulin [...] gone. 14 Capsule 0 3 023 Active Triamcinolone Acetonide 0.1 % External Cream (Aristocort)Indicat ions:Rash and nonspecific skin eruption Apply to rash on body nightly as needed 30 g 0 3 Active predniSONE 20 MG Oral Tablet (Deltasone)Indicati ons:Type 2 diabetes mellitus with stage 3b chronic kidney disease, with long-term current use of insulin ([facility]) Take 2 Tablets by mouth in the [...] AT BEDTIME. 135 Tablet 3 3 Active Metoprolol Succinate ER 25 MG Oral Tablet Extended Release 24 Hour (toPROL XL)Indications:PVC' s (premature ventricular contractions) TAKE 1 TAB BY MOUTH EVERY MORNING AND ONE-HALF TAB AT BEDTIME. 135 Tablet 3 3 023 Discontinued Hospital, Clinic, or Other [...] Overview: Signed 06/04/2014 Pranav Sanchez MD [facility] Pharmacy [place] Spinal pain 06/04/2014 02/02/2017 Type 2 diabetes [...] encounter Miscellaneous Notes * Telephone Encounter - Alexia Parikh PA-C - 04/17/2023 2:21 PM EST Signed Prescriptions: Disp Refills Metoprolol Succinate ER 25 MG Oral Tablet *135 Ta*3 Sig: TAKE 1 TAB BY MOUTH EVERY MORNING AND ONE-HALF TAB AT BEDTIME. Authorizing Provider: ALEXIA PARIKH * Telephone Encounter - Catherine Ryan COT - 04/17/2023 10:38 AM ESTPending Prescriptions: Disp Refills Metoprolol Succinate ER 25 MG Oral Tablet *135 Ta*3 Sig: TAKE 1 TAB BY MOUTH EVERY MORNING AND ONE-HALF TAB AT BEDTIME. * Telephone Encounter - Catherine Ryan COT - 04/17/2023 10:38 AM EST Did you pend patient's preferred pharmacy and medication before forwarding?yes Pharmacy: [id number] [address] [facility] Pending Prescriptions: Disp Refills Metoprolol Succinate ER 25 MG Oral Tablet*135 Ta*3 Sig: TAKE 1 TAB BY MOUTH EVERY MORNING AND ONE-HALF TAB AT BEDTIME. Last Visit: 02/15/2022 (in office), Visit date not found (telemedicine) Next Visit: 06/11/2023 If no future appointments scheduled, and last appointment is greater than a year ago, please schedule patient for a follow-up appointment Last date the medication was ordered: 08-06-2022 Is this request for a controlled substance?No Urine Drug Screen:No results found. However, due to the size of the patient record, not all encounters were searched. Please check Results Review for a complete set of results. Patient Phone Numbers Labs: Lab Results Component Value Date/Time CREAT 1.2 (H) 01/24/2023 01:57 PM CREAT 0.95 09/20/2021 12:00 AM CREAT 1.0 05/24/2020 11:20 AM POTASSIUM 3.9 01/24/2023 01:57 PM POTASSIUM 3.8 09/20/2021 12:00 AM POTASSIUM 4.0 05/24/2020 11:20 AM TSH 3.15 12/28/2022 11:49 AM TSH 1.19 05/06/2019 11:23 AM LDLCALC 34 09/06/2022 12:35 PM LDLCALC 78 05/14/2018 12:26 PM LDLDIRECT 51 01/24/2023 01:57 PM LDLDIRECT 61 10/30/2019 03:49 PM LDLDIRECT 71 05/14/2017 01:52 PM ALT 10 01/24/2023 01:57 PM ALT 15 10/30/2019 03:49 PM HGBA1C 6.0 (H) 01/24/2023 01:57 PM HGBA1C 6.2 (A) 09/15/2021 12:00 AM HGBA1C 6.7 (H) 05/24/2020 11:20 AM documented in this encounter Plan of Treatment Upcoming Encounters Date Type Department Care Team (Late st Contact Info) Description 04/23/2023 2:20 PM EST Office Visit [facility] [address] [place] [address] Chris Asencio DO 132 [facility] [place] [address] 04/24/2023 2:00 PM EST Office Visit Pharmacy, [facility] [address] [place] [address] [facility] [address] [place] [address] 05/06/2023 3:20 PM EST Office Visit Nephrology, [facility] [address] [place] [address] Eric Day MD [address] [place] [address] 05/09/2023 1:40 PM EST Office Visit [facility] [address] [place] [address] Chris Asencio DO 132 [place] [address] 05/17/2023 10:00 AM EST [facility] [address] [place] [address] Penny Parikh, RN [address] [place] [address] 05/28/2023 11:30 AM EST Laboratory Laboratory, [place] [address] [place] [address] [facility] [address] [place] [address] 06/03/2023 2:30 PM EST Office Visit [facility]ology[facility] [address] [facility] [place] [address] Henok Stauffer MD 200 [facility] [address] 06/07/2023 10:30 AM EST Office Visit Gastroenterology, [facility] 132 [facility] [place] [address] Geovanna Bahena CRNP [address] [place] [address] 06/11/2023 1:30 PM EST Office Visit Cardiology, [facility] 132 [facility] [place] [address] Alexia Parikh PA-C [address] [place] [address] 07/05/2023 8:00 AM EST Office Visit Nutrition & Weight Management, [facility] [address] Iris Cerrato PA-C [address] [place] [address] 08/08/2023 2:00 PM EDT Office Visit [facility] [address] [place] [address] Taty Tobar CRNP [address] [place] [address] 10/03/2023 6:20 PM EDT Office Visit [facility] [address] [place] [address] Chris Asencio, DO [address] [place] [address] 11/07/2023 3:40 PM EDT Office Visit [facility] [address] [place] [address] Chris Asencio, DO 132 [facility] [place] [address] 02/06/2024 2:00 PM EDT Office Visit [facility] 132 [facility] [place] [address] Taty Tobar CRNP [address] [place] [address] 02/28/2024 1:30 PM EDT Imaging [facility] 132 [facility] [place] [address] 03/05/2024 2:00 PM EDT Office Visit Ophthalmology, [facility] 132 [facility] [place] [address] Ernie Rivers, DO [address] [place] [address] Scheduled Procedures Name Priority Associated Diagnoses Date/Ti [...] Screening 10/13/2023 10/12/2022 CKD PHOS USE SMARTSET 48682 01/11/202412/25, 09/06/2022, 03/01/2022, Additional history exists Albumin/Creatinine Ratio 01/25/2024 023, 09/06/2022, 11/24/2021, Additional history exists CKD HGB USE SMARTSET 04512 01/25/202401/24, 01/24/2023, 01/10/2023, Additional history exists Diabetic [...] as of this encounter Visit Diagnoses Diagnosis PVC's (premature ventricular contractions) Other premature beats documented in this encounter Advance Directives Documents on File Type Date Recorded Patient Photographic Reproduction Technician Expl anation POLST 10/20/2021 [place] OR [facility] FOR LIFE-SUSTAINING TREATMENT Latest Code Status on File Code Status Date Activated Date Inactivated Comments Full Code 03/30/2022 6:40 AM 03/30/2022 2:12 PM This order reflects the patients wishes and were consensually agreed upon. Question Answer Comments Discussion of Advance Directives occurred with: Patient Does the patient have a Living Will? No Does the patient have Health Care Power of Sample Mounter? No Care Teams Juice Mixer Relationship Specialty Start Date End Date Chris Asencio DO [address] [place] [address] PCP - General Family Medicine 01/07/18 documented as of this encounter
--- OUTSIDE RECORDS SUMMARY | 2023-06-20 00:36 | External Medical Summary | Summary of Care ---
Author Name Unknown Organization [facility] Address [address] [place] [address] Phone [phone] Care Team Providers Care Carbon Dioxide Operator Name Role Phone Luis M Chris Sheranay Primary Care Provider Reason for Visit * Reason Onset Date Comments Med Request 04/15/2023 Pt requesting me ds Encounter Details Date Type Department Care Team (Late st Contact Info) Description 04/15/2023 Telephone Dermatology [facility] [address] [place] [address] Services, Scheduling [address] [place] [address] Med Request (Pt requesting meds) Allergies Active [...] 1 Each 5 10/20/2020 Active Dexcom G6 Overlock Collar Setter DeviceIndications:Typ e 2 diabetes mellitus with stage [...] 08/06/2022 Active Additional Information Patient taking differently:2 [place] Each NostrilBID (.AM/PM), Reported on 12/24/2022 Famotidine [...] bedtime. 90 Tablet 3 10/23/2022 Active Methscopolamine [place] 2.5 MG Oral TabletIndications:Irr itable bowel syndrome [...] disease, with long-term current use of insulin ([facility]),Type II diabetes mellitus with neurological manifestations (HCC) [...] gone. 14 Capsule 0 04/10/2023 3 Active Hospital, Clinic, or Other Facility [...] 06/04/2014 Overview: Signed 06/04/2014 Pranav Sanchez MD [facility] Pharmacy [place] Spinal pain 06/04/2014 02/02/2017 Type 2 diabetes [...] mRNA, LNP-s, No Pre serve, 2-Dose Series ([employer]) 09/09/2020,08/19/2020 Pneumococcal Conjugate Vacc, 13 Valent (Prevnar) [...] encounter Miscellaneous Notes * Telephone Encounter - Lenora Vasquez OSA - 04/15/2023 10:44 AM EST Richie, Patient called. Would like refill on this cream and prednisone. Pharmacy - [facility] in [place] Triamcinolone Acetonide 0.1 % External Cream (Aristocort) (Discontinued) 30 g 0 Pt requesting Prednisone as well. Thank you. AKTERIN Rodrigues documented in this encounter Plan of Treatment Upcoming Encounters Date Type Department Care Team (Late st Contact Info) Description 04/16/2023 10:00 AM EST Home Visit [facility] [address] [place] [address] Penny Parikh RN [address] [place] [address] 04/23/2023 2:20 PM EST Office Visit [facility] [address] [address] Chris Asencio, [address] [place] [address] 04/24/2023 2:00 PM EST Office Visit Pharmacy, [facility] 132 [facility] [place] [address] [facility] 132 [facility] [place] [address] 05/06/2023 3:20 PM EST Office Visit Nephrology, [facility] [address] [place] [address] Eric Day MD [address] [place] [address] 05/09/2023 1:40 PM EST Office Visit [facility] [address] [place] [address] Chris Asencio, [address] [place] [address] 05/28/2023 11:30 AM EST Laboratory Laboratory[address] [place] [id number] [facility] [address] [facility] [address] 06/03/2023 2:30 PM EST Office Visit Hematology/Oncology [facility] 200 [facility] [place] [address] Henok Stauffer MD 200 [facility] [place] [address] 06/07/2023 10:30 AM EST Office Visit Gastroenterology, [facility] [address] [place] [address] Geovanna Bahena CRNP [address] [place] [address] 06/11/2023 1:30 PM EST Office Visit Cardiology, [facility] [address] [place] [address] Sophy Sands PA-C [address] [place] [address] 07/05/2023 8:00 AM EST Office Visit Nutrition & Weight Management, [facility] [address] [place] [address] Iris Cerrato PA-C [address] [place] [address] 08/08/2023 2:00 PM EDT Office Visit Family Practice [facility] [address] [place] [address] Taty Tobar CRNP [address] [place] [address] 10/03/2023 6:20 PM EDT Office Visit [facility] 132 [facility] [place] [address] Chris Asencio, DO 132 [facility] [place] [address] 11/07/2023 3:40 PM EDT Office Visit [facility] 132 [facility] [place] [address] Chris Asencio, DO 132 [facility] [place] [address] 02/06/2024 2:00 PM EDT Office Visit [facility] 132 [facility] [place] [address] Taty Tobar CRNP 132 [facility] [place] [address] 02/28/2024 1:30 PM EDT Imaging Radiology [facility] 1st Floor, [place] 132 [facility] [place] [address] 03/05/2024 2:00 PM EDT Office Visit Ophthalmology, [facility] 132 [facility] [place] [address] Ernie Rivers, DO [facility] [place] [address] Scheduled Procedures Name Priority Associated Diagnoses Date/Ti [...] Screening 10/13/2023 10/12/2022 CKD PHOS USE SMARTSET 03518 01/11/202412/25, 09/06/2022, 03/01/2022, Additional history exists Albumin/Creatinine Ratio 01/25/2024 023, 09/06/2022, 11/24/2021, Additional history exists CKD HGB USE SMARTSET 98938 01/25/202401/24, 01/24/2023, 01/10/2023, Additional history exists Diabetic [...] Documents on File Type Date Recorded 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 Question Answer Comments Discussion of Advance Directives occurred with: Patient Does the patient have a Living Will? No Does the patient have Health Care Power of Advertising Space Clerk? No Care Teams Carbon Dioxide Operator Relationship Specialty Start Date End Date Chris Asencio DO [address] [place] [address] PCP - General Family Medicine 01/07/18 documented as of this encounter
--- OUTSIDE RECORDS SUMMARY | 2023-06-20 00:36 | External Medical Summary | Summary of Care ---
Author Name Unknown Organization [facility] Address [address] [place] [address] Phone [phone] Care Team Providers Care Audiovisual Tech Name Role Phone Nazia Asenciomarcos Fabiananay Primary Care Provider Reason for Visit * Reason Onset Date Comments [facility]: Maintenance 04/03/2023 Encounter Details Date Type Department Care Team ([facility] st Contact Info) Description 04/03/2023 Telephone [facility], [address] [address] Services, Scheduling [address] [place] [address] [facility]: Maintenance Allergies Active Allergy [...] as of this encounter (statuses as of 04/03/2023) Medications Medication Sig Dispensed Refills Start Date [...] 1 Each 5 10/20/2020 Active Dexcom G6 Drafting Detailer DeviceIndications:Typ e 2 diabetes mellitus with stage [...] 08/06/2022 Active Additional Information Patient taking differently:2 [place] Each NostrilBID (.AM/PM), Reported on 12/24/2022 Famotidine [...] bedtime. 90 Tablet 3 10/23/2022 Active Methscopolamine [place] 2.5 MG Oral TabletIndications:Irr itable bowel syndrome with diarrhea TAKE 1 TAB UP TO 3 TIMES DAILY NEEDED FOR ABDOMINAL CRAMPS & DIARRHEA, 270 Tablet 1 11/08/2022 Active OneTouch Verio In Vitro Strip (Glucose Blood)Indications:Typ e II diabetes mellitus with neurological manifestations (HCC) USE UP TO 4 TIMES A DAY DIRECTED 100 Strip 11 11/28/2022 Active Pantoprazole Sodium 40 MG Oral Tablet [...] the skin with breakfast 0 03/22/2023 Active Cephalexin 500 MG Oral Capsule Take 1 Capsule by mouth in the morning and 1 Capsule before bedtime. Do all this for 7 days. 14 Capsule 0 04/01/2023 3 Active Hospital, Clinic, or Other Facility Administered Medication Ordered Dose Route Frequency Start Date End Date Status albuterol sulfate (PROVENTIL) (2.5 MG/3ML) 0.083% inhalation solution 2.5 mgIndications:Moderate persistent asthma without complication 2.5 mg NEBULIZER Q4H PRN 08/13/2018 Active documented as of this encounter (statuses as of 04/03/2023) Active Problems Patient Care Coordination No te [...] as of this encounter (statuses as of 04/03/2023) Resolved Problems Problem Noted Date Diagnosed Date [...] 06/04/2014 Overview: Signed 06/04/2014 Pranav Sanchez MD [facility] Pharmacy [place] Spinal pain 06/04/2014 02/02/2017 Type 2 diabetes [...] as of this encounter (statuses as of 04/03/2023) Immunizations Name Administration Dates Next Due COVID-19 [...] encounter Miscellaneous Notes * Telephone Encounter - Torri Zavaleta OSA - 04/03/2023 12:18 PM EST Lmom for patient to return call, looking to schedule covid booster on 04/10/23 with TAMIA Mcdonough. Please do not give time it will be sometime that day. Phone number provided for [facility] at [phone]. KATERIN Hernandes documented in this encounter Plan of Treatment Upcoming Encounters Date Type Department Care Team (Late st Contact Info) Description 04/09/2023 3:20 PM EST Office Visit Family [facility] [address] [place] [address] Chris Asencio DO [address] [place] [address] 04/11/2023 3:00 PM EST Office Visit Gastroenterology, [facility] [address] [place] [address] Geovanna Bahena CRNP [address] [place] [address] 04/16/2023 10:00 AM EST Home Visit [facility] [address] [place] [address] Penny Parikh, RN [address] [place] [address] 04/24/2023 2:00 PM EST Office Visit Pharmacy, [facility] 132 [facility] [place] [address] [facility] [address] [place] [address] 05/06/2023 3:20 PM EST Office Visit Nephrology, Misty Calderon [address] [place] [address] Eric Day MD [address] [place] [address] 05/09/2023 1:40 PM EST Office Visit [facility] [place] [address] Chris Asencio, [address] [place] [address] 05/28/2023 11:30 AM EST Laboratory Laboratory, [place] [address] [place] [address] [facility] [address] [place] [facility] [place] [address] 06/03/2023 2:30 PM EST Office Visit Hematology/Oncology [facility] 200 [facility] [place] [address] Henok Stauffer MD 200 [facility] [place] [address] 06/11/2023 1:30 PM EST Office Visit Cardiology, [facility] [address] [place] [address] Sophy Sands PALillyC [address] [place] [address] 07/05/2023 8:00 AM EST Office Visit Nutrition & Weight Management, [facility] [address] [place] [address] Iris Cerrato [place] [address] [place] [address] 08/08/2023 2:00 PM EDT Office Visit Family Practice [facility] [address] [place] [address] Taty Tobar CRNP [address] [place] [address] 10/03/2023 6:20 PM EDT Office Visit Family [facility] [address] [place] [address] Chris Asencio, DO [address] [facility] [place] [place] [address] 11/07/2023 3:40 PM EDT Office Visit [facility] [address] [facility] [place] [address] Chris Asencio, DO [address] [facility] [place] [address] 02/06/2024 2:00 PM EDT Office Visit [facility] 132 [facility] [place] [address] Taty Tobar CRNP [address] [facility] [place] [address] 02/28/2024 1:30 PM EDT Imaging Radiology [facility] 1st Floor, [place] [facility] [place] [address] 03/05/2024 2:00 PM EDT Office Visit Ophthalmology, 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 FOR LIFE-SUSTAINING TREATMENT Latest Code Status on File Code Status Date Activated Date Inactivated Comments Full Code 03/30/2022 6:40 AM 03/30/2022 2:12 PM This order reflects the patients wishes and were consensually agreed upon. Question Answer Comments Discussion of Advance Directives occurred with: Patient Does the patient have a Living Will? No Does the patient have Health Care Power of Plain Goods Hemmer? No Care Teams Audiovisual Tech Relationship Specialty Start Date End Date Chris Asencio DO [address] [place] [address] PCP - General Family Medicine 01/07/18 documented as of this encounter
--- OUTSIDE RECORDS SUMMARY | 2023-06-20 00:36 | External Medical Summary | Summary of Care ---
Author Name Unknown Organization [facility] Address [address] [place] [facility] [place] [address] Phone [phone] Care Team Providers Care Puttier Name Role Phone Chris Asencio DO Primary Care Provider Encounter Details Date Type Department Care Team (Late st Contact Info) Description 04/01/2023 Telephone Family Practice [facility] [address] [place] [address] Chris Asencio DO [address] [place] [address] Allergies Active Allergy Reactions Criticality Noted Date [...] as of this encounter (statuses as of 04/02/2023) Medications Medication Sig Dispensed Refills Start Date [...] 1 Each 5 10/20/2020 Active Dexcom G6 Marble Chip Terrazzo Worker DeviceIndications:Typ e 2 diabetes mellitus with stage [...] 08/06/2022 Active Additional Information Patient taking differently:2 [place] Each NostrilBID (.AM/PM), Reported on 12/24/2022 Famotidine [...] bedtime. 90 Tablet 3 10/23/2022 Active Methscopolamine [place] 2.5 MG Oral TabletIndications:Irr itable bowel syndrome [...] as of this encounter (statuses as of 04/02/2023) Active Problems Patient Care Coordination No te [...] as of this encounter (statuses as of 04/02/2023) Resolved Problems Problem Noted Date Diagnosed Date [...] 06/04/2014 Overview: Signed 06/04/2014 Pranav Sanchez MD [facility] [place] Spinal pain 06/04/2014 02/02/2017 Type 2 diabetes [...] as of this encounter (statuses as of 04/02/2023) Immunizations Name Administration Dates Next Due COVID-19 [...] encounter Miscellaneous Notes * Telephone Encounter - Travis Noel RPh - 04/01/2023 3:56 PM EST Handled in nurse triage. Thanks, Travis Noel, PharmD Clinical Pharmacist [facility] ([facility]) (formerly Telepharmacy) [phone] 04/01/2023, 3:56 PM * Telephone Encounter - Robert Erickson OSA - 04/01/2023 1:51 PM EST Pt calling back in stating she was to call Dr Asencio if she had another UTI. Pt sent specimen to labthis morning. Pt said urine was very cloudy, bladder has spasms and burning with urination. Pt was in the hospital a month and half ago pt was in hospital for UTI and stomach infection and had gone into septic shock. Pt asking if antibiotic an be prescribed. Pt uses [facility] in [place]. Please advise pt [phone]. documented in this encounter Plan of Treatment Upcoming Encounters Date Type Department Care Team (Late st Contact Info) Description 04/09/2023 3:20 PM EST Office Visit Family Practice [facility] [address] [place] [address] Chris Asencio DO [address] [place] [address] 04/11/2023 3:00 PM EST Office Visit Gastroenterology, [facility] [address] [place] [address] Geovanna Bahena CRNP [address] [place] [address] 04/16/2023 10:00 AM EST Home Visit [facility], [facility] [address] [place] [address] Penny Parikh, RN [address] [place] [address] 04/24/2023 2:00 PM EST Office Visit Pharmacy, [facility] [address] [address] Garza, [facility] [address] [place] [address] 05/06/2023 3:20 PM EST Office Visit Nephrology, [address] [place] [address] Eric Day MD [address] [place] [address] 05/09/2023 1:40 PM EST Office Visit [facility] [place] [address] Chris Asencio DO [address] [facility] [place] [address] 05/28/2023 11:30 AM EST Laboratory Laboratory, [place] [address] [place] [id number] [facility] [address] [place] [address] 06/03/2023 2:30 PM EST Office Visit Hematology/Oncology [facility] [place] [address] [place] [address] Henok Stauffer MD [address] [place] [address] 06/11/2023 1:30 PM EST Office Visit Cardiology, [facility] [place] [address] Sophy Sands PALillyC [address] [place] [address] 07/05/2023 8:00 AM EST Office Visit Nutrition & Weight Management, [facility] [address] [place] [address] Iris Cerrato PA-C [address] [place] [address] 08/08/2023 2:00 PM EDT Office Visit [facility] [address] [place] [address] Taty Tobar CRNP [address] [place] [address] 10/03/2023 6:20 PM EDT Office Visit [facility] [address] [place] [address] Chris Asencio, DO [address] [place] [address] 11/07/2023 3:40 PM EDT Office Visit [facility] [address] [place] [address] Chris Asencio, DO 132 [facility] [place] [address] 02/06/2024 2:00 PM EDT Office Visit [facility] [address] [place] [address] Taty Tobar CRNP [address] [place] [address] 02/28/2024 1:30 PM EDT Imaging [facility] [address] [place] [address] 03/05/2024 2:00 PM EDT Office Visit Ophthalmology, [facility] 132 [facility] [place] [address] Ernie Rivers, DO [address] [place] [address] Scheduled Procedures Name Priority Associated Diagnoses Date/Ti [...] Screening 10/13/2023 10/12/2022 CKD PHOS USE SMARTSET 75994 01/11/202412/25, 09/06/2022, 03/01/2022, Additional history exists Albumin/Creatinine Ratio 01/25/2024 023, 09/06/2022, 11/24/2021, Additional history exists CKD HGB USE SMARTSET 52180 01/25/202401/24, 01/24/2023, 01/10/2023, Additional history exists Diabetic [...] Documents on File Type Date Recorded Patient Adapted Physical Education Aide Expl anation POLST 10/20/2021 [place] OR [facility] FOR LIFE-SUSTAINING TREATMENT Latest Code Status on File Code Status Date Activated Date Inactivated Comments Full Code 03/30/2022 6:40 AM 03/30/2022 2:12 PM This order reflects the patients wishes and were consensually agreed upon. Question Answer Comments Discussion of Advance Directives occurred with: Patient Does the patient have a Living Will? No Does the patient have Health Care Power of Lead Python Developer? No Care Teams Puttier Relationship Specialty Start Date End Date Chris Asencio DO [address] [place] [address] PCP - General Family Medicine 01/07/18 documented as of this encounter
--- OUTSIDE RECORDS SUMMARY | 2023-06-20 00:36 | External Medical Summary | Summary of Care ---
Author Name Unknown Organization [facility] Address [address] [place] [address] Phone [phone] Care Team Providers Care Dimensional Integration Engineer Name Role Phone Luis M Chris Sheranay Primary Care Provider Reason for Visit * Reason Onset Date Comments Med Request 04/15/2023 Pt requesting me ds Encounter Details Date Type Department Care Team (Late st Contact Info) Description 04/15/2023 Telephone Dermatology [facility] [address] [place] [address] Services, Scheduling [address] [place] [address] Med Request (Pt requesting meds) Allergies Active [...] 1 Each 5 10/20/2020 Active Dexcom G6 Site Operations Manager DeviceIndications:Typ e 2 diabetes mellitus with [...] 08/06/2022 Active Additional Information Patient taking differently:2 [place] Each NostrilBID (.AM/PM), Reported on 12/24/2022 Famotidine [...] bedtime. 90 Tablet 3 10/23/2022 Active Methscopolamine [place] 2.5 MG Oral TabletIndications:Irr itable bowel syndrome [...] current use of insulin ([facility]),Type II diabetes mellitus with neurological manifestations [...] Overview: Signed 06/04/2014 Pranav Sanchez MD [facility] [place] Spinal pain 06/04/2014 02/02/2017 Type 2 diabetes [...] mRNA, LNP-s, No Pre serve, 2-Dose Series (rocket staff) 09/09/2020,08/19/2020 Pneumococcal Conjugate Vacc, 13 Valent (Prevnar) [...] 5:15 PM EDT Sexual Orientation Straight 02/25/2020 5 :15 PM EDT Job Start Date Occupation Industry Not on file Not on file Not on file documented as of this encounter Miscellaneous Notes * Telephone Encounter - Lenora Vasquez OSA - 04/15/2023 10:44 AM EST Richie, Patient called. Would like refill on this cream and prednisone. Pharmacy - [facility] in [place] Triamcinolone Acetonide 0.1 % External Cream (Aristocort) (Discontinued) 30 g 0 Pt requesting Prednisone as well. Thank you. KATERIN Rodrigues documented in this encounter Plan of Treatment Upcoming Encounters Date Type Department Care Team (Late st Contact Info) Description 04/16/2023 10:00 AM EST Home Visit [facility] [address] [place] [address] Penny Parikh RN [address] [place] [address] 04/23/2023 2:20 PM EST Office Visit [facility] [place] [address] [address] Chris Asencio, [address] [place] [address] 04/24/2023 2:00 PM EST Office Visit Pharmacy, [facility] [address] [facility] [place] [address] [facility] [address] [facility] [place] [address] 05/06/2023 3:20 PM EST Office Visit Nephrology, [facility] [address] [place] [address] Eric Day MD [address] [place] [address] 05/09/2023 1:40 PM EST Office Visit [facility] [place] [address] [place] [address] Chris Asencio, [address] [place] [address] 05/28/2023 11:30 AM EST Laboratory Laboratory[address] [place] [phone] [facility] [address] [facility] [address] 06/03/2023 2:30 PM EST Office Visit Hematology/Oncology [facility] 200 [facility] [place] [address] Henok Stauffer MD 200 [facility] [place] [address] 06/07/2023 10:30 AM EST Office Visit Gastroenterology, [facility] [address] [place] [address] Geovanna Bahena CRNP [address] [place] [address] 06/11/2023 1:30 PM EST Office Visit Cardiology, [facility] [address] [place] [address] Sophy Sands PA-C [address] [place] [address] 07/05/2023 8:00 AM EST Office Visit Nutrition & Weight Management, [facility] [address] [place] [address] Iris Cerrato PA-C [address] [place] [address] 08/08/2023 2:00 PM EDT Office Visit Family Practice [facility] [address] [place] [address] Taty Tobar CRNP [address] [place] [address] 10/03/2023 6:20 PM EDT Office Visit [facility] [place] [address] [facility] [place] [address] Chris Asencio, DO 132 [facility] [place] [address] 11/07/2023 3:40 PM EDT Office Visit [facility] [place] [address] [facility] [place] [address] Chris Asencio, DO 132 [facility] [place] [address] 02/06/2024 2:00 PM EDT Office Visit [facility] [place] [address] [facility] [place] [address] Taty Tobar CRNP 132 [facility] [place] [address] 02/28/2024 1:30 PM EDT Imaging Radiology [facility] 1st Floor, [place] [address] [facility] [place] [address] 03/05/2024 2:00 PM EDT Office Visit Ophthalmology, [facility] [address] [facility] [place] [address] Ernie Rivers, DO [address] [place] [address] Scheduled Procedures Name Priority Associated Diagnoses Date/Ti [...] Screening 10/13/2023 10/12/2022 CKD PHOS USE SMARTSET 69650 01/11/202412/25, 09/06/2022, 03/01/2022, Additional history exists Albumin/Creatinine Ratio 01/25/2024 023, 09/06/2022, 11/24/2021, Additional history exists CKD HGB USE SMARTSET 78347 01/25/202401/24, 01/24/2023, 01/10/2023, Additional history exists Diabetic [...] Documents on File Type Date Recorded 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 Question Answer Comments Discussion of Advance Directives occurred with: Patient Does the patient have a Living Will? No Does the patient have Health Care Power of Reconsignment Clerk? No Care Teams Dimensional Integration Engineer Relationship Specialty Start Date End Date Chris Asencio DO [address] [place] [address] PCP - General Family Medicine 01/07/18 documented as of this encounter
--- OUTSIDE RECORDS SUMMARY | 2023-06-20 00:36 | External Medical Summary | Summary of Care ---
Author Name Unknown Organization [facility] Address [address] [place] [address] Phone [phone] Care Team Providers Care Steam Service Inspector Name Role Phone Luis M Chris Sheranay Primary Care Provider Reason for Visit * Reason Onset Date Comments Med Request 04/15/2023 Pt requesting me ds Encounter Details Date Type Department Care Team (Late st Contact Info) Description 04/15/2023 Telephone Dermatology [facility] [address] [place] [address] Services, Scheduling [address] [place] [address] Med Request (Pt requesting meds) Allergies Active [...] 1 Each 5 10/20/2020 Active Dexcom G6 Voip Engineer DeviceIndications:Typ e 2 diabetes mellitus with stage [...] 08/06/2022 Active Additional Information Patient taking differently:2 [place] Each NostrilBID (.AM/PM), Reported on 12/24/2022 Famotidine [...] bedtime. 90 Tablet 3 10/23/2022 Active Methscopolamine [place] 2.5 MG Oral TabletIndications:Irr itable bowel syndrome [...] disease, with long-term current use of insulin ([facility]),Type II diabetes mellitus with neurological manifestations (HCC) [...] 06/04/2014 Overview: Signed 06/04/2014 Pranav Sanchez MD [facility] [place] Spinal pain 06/04/2014 02/02/2017 Type 2 diabetes [...] mRNA, LNP-s, No Pre serve, 2-Dose Series ([employer]) 09/09/2020,08/19/2020 Pneumococcal Conjugate Vacc, 13 Valent (Prevnar) [...] encounter Miscellaneous Notes * Addendum Note - Boris Davis, MED ASSIST - 04/15/2023 11:21 AM ESTAddended [...] Vasquez OSA - 04/15/2023 10:44 AM EST Hello, Patient called. Would like refill on this cream and prednisone. Pharmacy - [facility] [place] Triamcinolone Acetonide 0.1 % External Cream (Aristocort) (Discontinued) 30 g 0 Pt requesting Prednisone as well. Thank you. KATERIN Rodrigues documented in this encounter Plan of Treatment Upcoming Encounters Date Type Department Care Team (Late st Contact Info) Description 04/16/2023 10:00 AM EST Home [facility] [address] [place] [address] Penny Parikh, RN [address] [place] [address] 04/23/2023 2:20 PM EST Office Visit Family [facility] [address] [place] [address] Chris Asencio DO [address] [place] [address] 04/24/2023 2:00 PM EST Office Visit Pharmacy, [facility] 132 [facility] [place] [address] [facility] 132 [facility] [place] [address] 05/06/2023 3:20 PM EST Office Visit Nephrology, [facility] [address] [place] [address] Eric Day MD [address] [place] [address] 05/09/2023 1:40 PM EST Office Visit Family Practice [facility] [place] [address] Chris Asencio DO [address] [facility] [place] [address] 05/28/2023 11:30 AM EST Laboratory Laboratory, [place] [address] [place] [phone] [place] [address] [place] [address] 06/03/2023 2:30 PM EST Office Visit Hematology/Oncology [facility] [address] [place] [address] Henok Stauffer MD [address] [place] [address] 06/07/2023 10:30 AM EST Office Visit Gastroenterology, [facility] 132 [facility] [place] [address] Geovanna Bahena CRNP 132 [facility] [address] 06/11/2023 1:30 PM EST Office Visit Cardiology, [facility] [address] [place] [address] Sophy Sands PA-C [address] [place] [address] 07/05/2023 8:00 AM EST Office Visit Nutrition & Weight Management, [facility] [address] [place] [address] Iris Cerrato PA-C [address] [place] [address] 08/08/2023 2:00 PM EDT Office Visit Family Practice [facility] [address] [place] [address] Taty Tobar CRNP [address] [place] [address] 10/03/2023 6:20 PM EDT Office Visit [facility] Practice [facility] [address] [place] [address] Chris Asencio, DO [address] [place] [address] 11/07/2023 3:40 PM EDT Office Visit Family Practice [facility] [address] [place] [address] Chris Asencio, DO [address] [place] [address] 02/06/2024 2:00 PM EDT Office Visit [facility] Practice [facility] [address] [place] [address] Taty Tobar CRNP [address] [place] [address] 02/28/2024 1:30 PM EDT Imaging Radiology [facility] 1st [facility] 132 [facility] [place] [address] 03/05/2024 2:00 PM EDT Office Visit Ophthalmology, [facility] 132 [facility] [place] [address] Ernie Rivers, DO [address] [place] [address] Scheduled Procedures Name Priority Associated Diagnoses Date/Ti [...] Screening 10/13/2023 10/12/2022 CKD PHOS USE SMARTSET 21373 01/11/202412/25, 09/06/2022, 03/01/2022, Additional history exists Albumin/Creatinine Ratio 01/25/2024 023, 09/06/2022, 11/24/2021, Additional history exists CKD HGB USE SMARTSET 17459 01/25/202401/24, 01/24/2023, 01/10/2023, Additional history exists Diabetic [...] Documents on File Type Date Recorded Patient Speedometer Inspector Expl anation POLST 10/20/2021 [place] OR [facility] FOR [...] the patient have Health Care Power of Meat Products Demonstrator? No Care Teams Steam Service Inspector Relationship Specialty Start Date End Date Chris Asencio DO [address] [place] [address] PCP - General Family Medicine 01/07/18 documented as of this encounter
--- OUTSIDE RECORDS SUMMARY | 2023-06-20 00:36 | External Medical Summary | Summary of Care ---
Author Name Unknown Organization [facility] Address [address] [place] [address] Phone [phone] Care Team Providers Care It Integration Architect Name Role Phone Nazia Asenciomarcos Fabiananay Primary Care Provider Reason for Visit * Reason Onset Date Comments [facility]: Maintenance 04/03/2023 Encounter Details Date Type Department Care Team ([facility] st Contact Info) Description 04/03/2023 Telephone [facility], [address] [address] Services, Scheduling [address] [place] [address] [facility]: Maintenance Allergies Active Allergy [...] 1 Each 5 10/20/2020 Active Dexcom G6 Senior Cyber Security Analyst DeviceIndications:Typ e 2 diabetes mellitus with stage [...] 08/06/2022 Active Additional Information Patient taking differently:2 [place] Each NostrilBID (.AM/PM), Reported on 12/24/2022 Famotidine [...] bedtime. 90 Tablet 3 10/23/2022 Active Methscopolamine [place] 2.5 MG Oral TabletIndications:Irr itable bowel syndrome [...] 06/04/2014 Overview: Signed 06/04/2014 Pranav Sanchez MD [facility] [place] Spinal pain 06/04/2014 02/02/2017 Type 2 diabetes [...] encounter Miscellaneous Notes * Telephone Encounter - Jamaal Olivarez OSA - 04/03/2023 4:14 PM EST Inbound call from pt stating she will try to get her covid vaccine booster at her next PCP appt on 04/09, if by chance, she can't get it there, she will call [facility] back to schedule in the home. * Telephone Encounter - Torri Zavaleta OSA - 04/03/2023 12:18 PM EST Lmom for patient to return call, looking to schedule covid booster on 04/10/23 with [facility]. Please do not give time it will be sometime that day. Phone number provided for [facility] at [phone]. KATERIN Hernandes documented in this encounter Plan of Treatment Upcoming Encounters Date Type Department Care Team (Late st Contact Info) Description 04/09/2023 3:20 PM EST Office Visit Family Practice [facility] [address] [place] [address] Chris Asencio DO [address] [place] [address] 04/11/2023 3:00 PM EST Office Visit Gastroenterology, [facility] [address] [place] [address] Geovanna Bahena CRNP [address] [place] [address] 04/16/2023 10:00 AM EST Home Visit [facility] [address] [place] [address] Penny Parikh, RN [address] [place] [address] 04/24/2023 2:00 PM EST Office Visit Pharmacy, [facility] [address] [place] [address] [facility] [address] [place] [address] 05/06/2023 3:20 PM EST Office Visit Nephrology, [facility] [address] [place], [place] [address] Eric Day MD [address] [place] [address] 05/09/2023 1:40 PM EST Office Visit Family Practice [facility] [place] [address] Chris Asencio DO [address] [place] [address] 05/28/2023 11:30 AM EST Laboratory Laboratory, [place] [address] [place] [phone] [place] [address] [place] [address] 06/03/2023 2:30 PM EST Office Visit Hematology/Oncology [facility] [address] [place] [address] Henok Stauffer MD [address] [place] [address] 06/11/2023 1:30 PM EST Office Visit Cardiology, [facility] [address] [place] [address] Sophy Sands PA-C [address] [place] [address] 07/05/2023 8:00 AM EST Office Visit Nutrition & Weight Management, [facility] [address] [place] [address] Iris Cerrato PA-C [address] [place] [address] 08/08/2023 2:00 PM EDT Office Visit [facility] [address] [place] [address] Taty Tobar CRNP [address] [place] [address] 10/03/2023 6:20 PM EDT Office Visit [facility] [address] [place] [address] Chris Asencio, DO [address] [place] [address] 11/07/2023 3:40 PM EDT Office Visit [facility] [address] [place] [address] Chris Asencio, DO [address] [place] [address] 02/06/2024 2:00 PM EDT Office Visit [facility] [address] [place] [address] Taty Tobar CRNP [address] [place] [address] 02/28/2024 1:30 PM EDT Imaging Radiology [facility] 1st Floor, [place] 132 [facility] [place] [address] 03/05/2024 2:00 PM EDT Office Visit Ophthalmology, [facility] 132 [facility] [place] [address] Ernie Rivers, DO [address] [place] [address] Scheduled Procedures Name Priority Associated Diagnoses Date/Ti [...] Screening 10/13/2023 10/12/2022 CKD PHOS USE SMARTSET 68338 01/11/202412/25, 09/06/2022, 03/01/2022, Additional history exists Albumin/Creatinine Ratio 01/25/2024 023, 09/06/2022, 11/24/2021, Additional history exists CKD HGB USE SMARTSET 56387 01/25/202401/24, 01/24/2023, 01/10/2023, Additional history exists Diabetic [...] Documents on File Type Date Recorded 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 No Care Teams It Integration Architect Relationship Specialty Start Date End Date Chris Asencio DO [address] [place] [address] PCP - General Family Medicine 01/07/18 documented as of this encounter
--- OUTSIDE RECORDS SUMMARY | 2023-06-20 00:37 | External Medical Summary ---
Author Name Unknown Address Unknown Organization [id number]:[facility] [place] [address] [facility] [address] Laboratory Report Ordering Provider Test Date Status BIANCA KAUR 04/01/2023 10:54:43 Final Observation Date Value Abnormality Reference (Units ) Status Bacteria identified in Specimen by Culture 04/01/2023 10:54:43 [id number]^ESCHE RICHIA COLI Abnormal Final 10,000 to 100,000 colonies/m L Escherichia coli Performing Location [facility] [place] [address] [facility] [address] Ordering Provider Test Date Status BIANCA KAUR 04/01/2023 10:54:43 Final Observation Date Value Abnormality Reference (Units ) Status Ampicillin 04/01/2023 10:54:43 <=2 Susceptible Final Cefazolin 04/01/2023 10:54:43 <=4 Susceptible Final Cefepime susceptibility 04/01/2023 10:54:43 <=1 Susceptible Final Ceftriaxone suceptibility 04/01/2023 10:54:43 <=1 Susceptible Final Ciprofloxacin 04/01/2023 10:54:43 <=0.25 Susceptible Final Due to serious side effects, the FDA has advised against using Ciprofloxacin to treat uncomplicated UTIs and respiratory tract infections unless there are no alternative treatment options. Gentamicin susceptibility 04/01/2023 10:54:43 <=1 Susc eptible Final Nitrofurantoin susceptibility 04/01/2023 10:54:43 <=16 Susceptible Final Piperacillin + Tazobactamsusceptibility 04/01/2023 10:54:43 <=4 Susceptible Final TMP-SMZ susceptibility 04/01/2023 10:54:43 <=20 Suscept ible Final Test: Culture, Urine, Quanti tative
Specimen Source: Urine, Clean Catch
Specimen Type: Urine
Specimen Date: 04/01/2023 10:54 AM
Result Date: 04/03/2023 7:10 AM
Result Status: Final result
Abnormal: Yes
Resulting Lab: [facility] [place]
[address]
[facility] [id number]

CULTURE

10,000 to 100,000 colonies/mL Escherichia coli (Abnormal)

SUSCEPTIBILITY

Escherichia coli
METHOD MICROBROTH DILUTIONS

AMPICILLIN <=2 Susceptible
CEFAZOLIN <=4 Susceptible
CEFEPIME <=1 Susceptible
CEFTRIAXONE <=1 Susceptible
CIPROFLOXACIN <=0.25 Susceptible [1]
GENTAMICIN <=1 Susceptible
NITROFURANTOIN <=16 Susceptible
PIPERACILLIN TAZOBACTAM <=4 Susceptible
TRIMETH/SULFAMETHOXAZOLE <=20 Susceptible

[1] Due to serious side effects, the FDA has advised against using
Ciprofloxacin to treat uncomplicated UTIs and respiratory tract infections
unless there are no alternative treatment options.

null Performing Location [facility] [place] [address] [facility] [address]
--- OUTSIDE RECORDS SUMMARY | 2023-06-20 00:37 | External Medical Summary | Summary of Care ---
Author Name Unknown Organization [facility] Address [address] [place] [address] Phone [phone] Care Team Providers Care Rough Patcher Name Role Phone Chris Asencio Primary Care Provider Reason for Visit * Reason Comments [facility]: Telehealth Encounter Details Date Type Department Care Team (Late st Contact Info) Description 03/22/2023 3:00 PM EDT Telemedicine [facility], [facility] [address] [place] [address] Em Zuluaga CRNP [address] [place] [address] Yvette Licea, [facility] [address] [place], [place] [id number] Anemia, chronic disease*; Type 2 diabetes mellitus with stage 3a chronic kidney disease, with long-term current use of insulin ([facility]); Type II diabetes mellitus with neurological manifestations ([facility]); Moderate persistent asthma without complication; Primary pulmonary hypertension ([facility]); KATERIN (obstructive sleep apnea) Allergies Active Allergy Reactions Criticality Noted Date [...] as of this encounter (statuses as of 03/26/2023) Medications Medication Sig Dispensed Refills Start Date [...] 1 Each 5 1 Active Dexcom G6 Dispensing Optician Apprentice DeviceIndications:Ty pe 2 diabetes mellitus with stage [...] 3 Active Additional Information Patient taking differently:2 [place] Each NostrilBID (.AM/PM), Reported on 12/24/2022 Famotidine [...] bedtime. 90 Tablet 3 3 Active Methscopolamine [place] 2.5 MG Oral TabletIndications:Ir ritable bowel syndrome with diarrhea TAKE 1 TAB UP TO 3 TIMES DAILY NEEDED FOR ABDOMINAL CRAMPS & DIARRHEA, 270 Tablet 1 3 Active OneTouch Verio In Vitro Strip (Glucose Blood)Indications:Ty pe II diabetes mellitus with neurological manifestations (HCC) USE UP TO 4 TIMES A DAY DIRECTED 100 Strip 11 3 Active Pantoprazole Sodium 40 MG Oral [...] the skin with breakfast 0 3 Active BiPAP every night at bedtime . 0 03/22/20 23 Discontinu ed(Patient preference /discontin uation) Alosetron HCl 1 MG Oral Tablet TAKE 1 MG BY MOUTH 2 TIMES A DAY. 180 Tablet 2 3 03/22/20 23 Discontinu ed(Patient preference /discontin uation) Furosemide 40 MG Oral Tablet (Lasix)Indications:H TN, goal below 140/90,Venous insufficiency Take 1 Tablet by mouth in the morning and 1 Tablet before bedtime. 180 Tablet 3 3 03/22/20 23 Discontinu ed(Medicat ion List Clean Up) Toujeo SoloStar 300 UNIT/ML Subcutaneous Solution Pen-injector (Insulin Glargine (1 Unit Dial))Indications:Ty pe 2 diabetes mellitus with hemoglobin A1c goal of 7.0%-8.0% ([facility]),Type 2 diabetes mellitus with stage 3a chronic kidney disease, with long-term current use of insulin ([facility]),Type II diabetes mellitus with neurological manifestations ([facility]) INJECT UNDER THE SKIN 50 UNITS 2 TIMES A DAY . 13.5 mL 5 3 03/22/20 23 Discontinu ed(Refill) NovoLOG FlexPen 100 UNIT/ML Subcutaneous Solution Pen-injector (insulin aspart)Indications:N ot taking INJECT 25 UNITS UNDER THE SKIN 3 TIMES A DAY. 75 Each 3 3 03/22/20 23 Discontinu ed(Refill) Hospital, Clinic, or Other Facility Administered Medication Ordered Dose Route Frequency Start Date End Date Status albuterol sulfate (PROVENTIL) (2.5 MG/3ML) 0.083% inhalation solution 2.5 mgIndications:Moderate persistent asthma without complication 2.5 mg NEBULIZER Q4H PRN 08/13/2018 Active documented as of this encounter (statuses as of 03/26/2023) Active Problems Patient Care Coordination No te [...] as of this encounter (statuses as of 03/26/2023) Resolved Problems Problem Noted Date Diagnosed Date [...] 06/04/2014 Overview: Signed 06/04/2014 Pranav Sanchez MD [facility] [place] Spinal pain 06/04/2014 02/02/2017 Type 2 diabetes [...] Allergic rhinitis 10/27/2019 Overview: Acute. Dysthymic disorder Neuralgia of chest 8 Asthma exacerbation 10/18/19 17 Asthma dependent on inhaled steroids 02/02/2017 documented as of this encounter (statuses as of 03/26/2023) Immunizations Name Administration Dates Next Due COVID-19 mRNA, LNP-s, No Pre serve, 2-Dose Series (Pay with a Tweet) 09/09/2020,08/19/2020 Pneumococcal Conjugate Vacc, 13 Valent (Prevnar) [...] Sign Reading Time Taken Comments Blood Pressure 100/60 03/22/2023 2:57 PM EDT Pulse 62 03/22/2023 2:57 PM EDT Temperature 36.3 C (97.3 F) 03/22/2023 2:57 PM ED T Respiratory Rate - - Oxygen Saturation 95% 03/22/2023 2:57 PM EDT Inhaled Oxygen Concentration - - Weight - - Height - - Body Mass Index - - documented in this encounter Progress Notes * Em Zuluaga CRNP - 03/22/2023 3:00 PM EDT Images from the original note were not included. [facility] Problem Oriented Charting Provider Visit Date: 03/22/2023 Time: 3:12 PM [facility] Sub-Program: Focused Care Management (3-9 months) [facility] Episode Start Date: Noted: 12/17/2022 Assessment and Plan #1 Anemia, chronic disease (Primary) Assessment & Plan: Followed by hematology #2 Type 2 diabetes mellitus with stage 3a chronic kidney disease, with long-term current use of insulin (HCC) Overview: Per CKD protocol Assessment & Plan: Current Status: "Stable" for [...] Trulicity, Ozempic) Other: toujeo DM Secondary Prevention LCARITA Inhibitor / ARB Moderate-High Intensity Statin Aspirin [...] - [facility] 7.6 (H) 05/06/2019 11:23 AM Orders: - Toujeo SoloStar; INJECT UNDER THE SKIN 20 units in am. #3 Type II diabetes mellitus with neurological manifestations (HCC) - Toujeo SoloStar; INJECT UNDER THE SKIN 20 units in am. #4 Moderate persistent asthma without complication Assessment & Plan: singulair daily breo daily pulmicort nebs BID PFT 2019 Has rescue inhaler uses very seldom Cannot use albuterol nebs d/t hear racing and increased anxiety #5 Primary pulmonary hypertension (HCC) Assessment & Plan: Continue diuretic #6 KATERIN (obstructive sleep apnea) Assessment & Plan: Reports she does not tolerate BIPAP Other orders - NovoLOG FlexPen; 4 units under the skin with breakfast Additional Medical Decision Making: Stable today. No further scheduled [facility] provider visits. She plans to keep all scheduled pcp and specialty visits. RNCM to monitor and graduate in future. Scheduled appointments in the next 60 days: Future Appointments-next 60 days Date/Time Provider Specialty Dept Phone 03/22/2023 3:00 PM Yvette Licea, [facility]; Em Zuluaga CRNP [facility] [phone] 04/09/2023 3:20 PM (Arrive by 3:05 PM) Chris Asencio DO Family Medicine [phone] 04/11/2023 3:00 PM (Arrive by 2:45 PM) Geovanna Bahena CRNP Gastroenterology [phone] 04/16/2023 10:00 AM Penny Parikh RN [facility] [phone] 04/24/2023 2:00 PM [facility] [phone] 05/06/2023 3:20 PM (Arrive by 3:05 PM) Eric Day MD Nephrology [phone] 05/09/2023 1:40 PM (Arrive by 1:25 PM) Chris Asencio DO Family Medicine [phone] 05/28/2023 11:30 AM [facility] [phone] 06/03/2023 2:30 PM (Arrive by 2:15 PM) Henok Stauffer MD Hematology Oncology [phone] 06/11/2023 1:30 PM (Arrive by 1:15 PM) Sophy Sands PA-C Cardiology [phone] 07/05/2023 8:00 AM (Arrive by 7:45 AM) Iris Cerrato PA-C Gastroenterology [phone] 08/08/2023 2:00 PM (Arrive by 1:45 PM) Taty Tobar CRNP Family Medicine [phone] 10/03/2023 6:20 PM (Arrive by 6:05 PM) Chris Asencio DO Family Medicine [phone] 11/07/2023 3:40 PM (Arrive by 3:25 PM) Chris Asencio DO Family Medicine [phone] 02/06/2024 2:00 PM (Arrive by 1:45 PM) Taty Tobar CRNP Family Medicine [phone] 02/28/2024 1:30 PM (Arrive by 1:15 PM) [email or web address] Radiology [phone] 03/05/2024 2:00 PM Ernie Rivers DO Ophthalmology [phone] A total of 35 minutes was spent face to face (via video-based telemedicine if designated as a telemedicine visit) Subjective Subjective Is this a Telemedicine Visit? Yes, Patient location: HOME. I was not in a hospital or clinic location. After connecting through televideo, patient was verified with two unique identifiers. Patient (or authorized legal special service representative) was then informed that this was a Telemedicine visit and being conducted confidentially over secure lines. Methods to assure confidentiality were taken. Patient acknowledged consent and understanding of privacy and security of the Telemedicine visit. The patient agreed to participate. Reason For [facility] Visit: Follow-Up Current Concerns: Liane Alejandre is a 72 year old female [facility] PMH--dm, moderate persistent asthma, KATERIN does not tolerate BiPAP, nocturnal oxygen 3-4 L, pulmonaryhypertension, IBS, GERD, CKD 3 She was inpatient [facility] in November for sepsis, respiratory failure and acute renal failure with a peak creatinine 13.3 on day of discharge creatinine was down to 1.3. Followed by heme Onc-felt anemia of chronic disease. PCP appointment 03/05-had a asthma flare given a few days of prednisone. She was seen by Nephrology in December--it was noted her renal function does fluctuate a lot and seems to get worse very easily. Noted concern that she had 2 episodes of very very severe acute renal failure-1st episode in 2017 with a peak creatinine of 8.8 and now recently in November with a peak creatinine 13.3. Noted she recovered both times without dialysis. Today's concerns are: Feeling better since starting prednisone. Reports she lost 86lb since starting ozempic. Has Dexcom Does not tolerate albuterol in [facility]. Uses budesonide prn. Additional Review of Systems Constitutional: Negative for activity change, appetite change, chills and fever. Respiratory: Positive for shortness of breath (with steps). Negative for cough and wheezing. Cardiovascular: Positive for leg swelling (wears compression stockings). Negative for chest pain. Genitourinary: Negative for difficulty urinating. Musculoskeletal: Positive for back pain (uses tylenol for pain prn). Objective Objective Vitals: 03/22/23 1457 Temp: 36.3 C (97.3 F) Pulse: 62 SpO2: 95% BP: 100/60 Last Weights: Wt Readings from Last 3 Encounters: 02/26/23 105.2 kg (232 lb) 01/29/23 103.5 kg (228 lb 3.2 oz) 01/24/23 106.8 kg (235 lb 6 oz) Last BPs: BP Readings from Last 4 Encounters: 03/22/23 100/60 03/05/23 110/60 02/26/23 98/56 02/01/23 132/76 Physical Exam Vitals reviewed. Constitutional: General: She is not in acute distress. Appearance: She is not toxic-appearing. HENT: Head: Normocephalic. Cardiovascular: Rate and Rhythm: Normal rate and regular rhythm. Heart sounds: No murmur heard. Pulmonary: Effort: Pulmonary effort is normal. No respiratory distress. Breath sounds: Normal breath sounds. Skin: Coloration: Skin is not pale. Neurological: General: No focal deficit present. Mental Status: She is alert and oriented to person, place, and time. Psychiatric: Mood and Affect: Mood normal. Behavior: Behavior normal. Thought Content: Thought content normal. Judgment: Judgment normal. Lab Review: I have reviewed the following results: BMP results Recent Labs Units 01/24/23 1357 01/10/23 0908 01/03/23 1002 SODIUM - [facility] mmol/L 138 135 136 POTASSIUM - [facility] mmol/L 3.9 3.8 4.2 CHLORIDE - [facility] mmol/L 101 98 96* CO2 - [facility] mmol/L 26 23 24 CREATININE - [facility] mg/dL 1.2* 1.6* 1.9* BUN - [facility] mg/dL 18 25* 22* Lipid panel results Recent Labs Units 01/24/23 1357 09/06/22 1235 03/01/22 1317 08/23/21 1002 CHOLESTEROL - [facility] mg/dL 131 100 152 114 LDL CHOLESTEROL (CALCULATED) - [facility] mg/dL -- 34 -- 44 HDL CHOLESTEROL - [facility] mg/dL 33* 39* 37* 44* TRIGLYCERIDES - [facility] mg/dL 288* 133 300* 129 CBC results Recent Labs Units 01/24/23 1357 01/10/23 0908 12/28/22 1149 WBC AUTO - [facility] K/uL 5.07 6.63 4.74 HGB - [facility] g/dL 10.8* 10.4* 8.8* HCT - [facility] % 34.1* 32.7* 28.3* PLATELET AUTO - [facility] K/uL 250 308 472* HbA1c results Recent Labs Units 01/24/23 1357 09/06/22 1235 08/10/22 1122 HEMOGLOBIN A1C - [facility] % 6.0* 6.7* 6.7* TSH results Recent Labs Units 12/28/22 1149 TSH - [facility] uIU/mL 3.15 Vitamin D results Recent Labs Units 01/10/23 0908 25-HYDROXY VITAMIN D - [facility] ng/mL 38 Hepatic panel results Recent Labs Units 01/24/23 1357 09/06/22 1235 03/01/22 1317 PROTEIN - [facility] g/dL 7.8 6.9 7.4 BILIRUBIN, TOTAL - [facility] mg/dL 0.3 0.4 0.5 ALKALINE PHOSPHATASE - [facility] U/L 143* 114 109 AST - [facility] U/L 14 16 17 ALT - [facility] U/L 10 15 11 Protein/cr ratio results No results for input(s): "PROCRRATIO" in the last 27386 hours. Medication Review "Bottles Out" medication review performed today and medication list in EMR updated Mobility Evaluation: MAHC10 Assessment: [facility] ([facility]) Fall Risk Assessment Tool Age 65+: Yes (03/22/231499) Diagnosis (3 or more co-existing): Yes (03/22/231499) Prior history of falls within 3 months: No (03/22/231499) Incontinence: Yes (03/22/231499) Visual impairment: Yes (03/22/231499) Impaired functional mobility: Yes (03/22/231499) Environmental hazards: No (03/22/231499) Poly Pharmacy (4 or more prescriptions - any type): Yes (03/22/231499) Pain affecting level of function: Yes (03/22/231499) Cognitive impairment: No (03/22/231499) Score - a score of 4 or more is considered at risk for fallin (03/22/231499) Assistive Devices Used in the Home: Walker (standard or rollator) SDoH: NO SOCIAL DETERMINATE NEEDS IDENTIFIED Advance Care Planning Advance Care Planning Gutiérrez Information: Aligning Care With What Matters Most: After reviewing the preceding "Discerning What Matters Most" conversation, the following decisions were discussed: Interventions/Choices:: CPR; Intubation/mechanical ventilation; Dialysis; Artificial nutrition; Antibiotic therapy (01/03/2023 2:03 PM) CPR decision: : Declines CPR (01/03/2023 2:03 PM) Intubation/Mechanical Ventilation decision: : Declines Intubation/mechanical ventilation (:03 PM) Antibiotic therapy decision: : Patient chooses Antibiotic therapy (01/03/2023 2:03 PM) Artificial nutrition decision: : Declines Artificial nutrition (01/03/2023 2:03 PM) IV hydration decision: : Patient chooses IV hydration (01/03/2023 2:03 PM) Dialysis decision: : Declines Dialysis (01/03/2023 2:03 PM) Source: Content from Respecting Choices Program ADELA Aguillon 9:53 AM *Communication sent to PCP (via autofax if non-[facility]), [facility] Health Care Team members,relevant Specialty Care Physicians* * Yvette Licea [facility] - 03/22/2023 2:53 PM EDT [facility] Telephone Visit Date: 03/22/2023 Time: 2:54 PM Name: Liane Alejandre : 1950 Source of Information: Patient COVID-19 screening completed: Yes Vitals: Vital signs completed: Yes, vital signs within normal range. BP 100/60 (BP Site: Left Arm, BP Position: Sitting, BP Cuff Size: Large) | Pulse 62 | Temp 36.3 C(97.3 F) (Infrared ) | SpO2 95% Condition Changes: Changes in health or social status since last visit: Was put on prednisone for 5 days for her lungs The patient has new concerns since last visit: No Progress towards goals since last visit: See above Medications: Medication review completed? Yes, no gaps identified Does the patient have barriers to medication adherence? No. Symptoms Surveys and Evaluations: [facility] flowsheet [facility]: Age 65+: 1 (01/03/2023 1:00 PM) Diagnosis (3 or more co-existing): 1 (01/03/2023 1:00 PM) Prior history of falls within 3 months: 0 (01/03/2023 1:00 PM) Incontinence: 1 (01/03/2023 1:00 PM) Visual impairment: 1 (01/03/2023 1:00 PM) Impaired functional mobility: 1 (01/03/2023 1:00 PM) Environmental hazards: 1 (01/03/2023 1:00 PM) Poly Pharmacy (4 or more prescriptions - any type): 1 (01/03/2023 1:00 PM) Pain affecting level of function: 1 (01/03/2023 1:00 PM) Cognitive impairment: 0 (01/03/2023 1:00 PM) Score - a score of 4 or more is considered at risk for fallin (01/03/2023 1:00 PM) COPD Checklist COPD ENIO ([facility]) Checklist The patient uses oxygen: No The patient uses a nebulizer: Yes Describe how the patient uses their nebulizer: Demonstrated using the nebulizer and appeared to understand. Describe how the patient cleans the nebulizer (including the filter): Patient demonstrated cleaningand appeared to understand. The patient uses an inhaler: Yes Describe how the patient uses the inhaler: Patient demonstrated using the inhaler and appeared to understand. Describe how the patient cleans the inhaler: Patient demonstrated cleaning and appeared to understand. Frequency of inhaler use: as prescribed COPD Assessment Test (CAT) completed this visit: Yes Last flowsheet values for COPD Assessment Test (CAT): [id number])@ Plan: Reinforced care plan established by care team Reinforced patient's three red flags by the care team No red flags were identified at this time Follow Up: Patient encouraged to call the intake phone number for all urgent but not emergent issues. Scheduled to follow up with patient as scheduled. Yvette Licea [facility] 03/22/2023 2:54 PM Electronically signed by Yvette Licea [facility] at 03/26/2023 1:57 PM EDT documented in this encounter Miscellaneous Notes * Assessment & Plan Note - Em Zuluaga CRNP - 03/26/2023 1:56 PM EDT Associated Problem(s): Type 2 diabetes mellitus with stage 3a chronic kidney disease, with long-term current use of insulin (HCC) Current Status: "Stable" for patient / At [...] - [facility] 7.6 (H) 05/06/2019 11:23 AM * Assessment & Plan Note - Em Zuluaga CRNP - 03/26/2023 1:55 PM EDT Associated Problem(s): KATERIN (obstructive sleep apnea) Reports she does not tolerate BIPAP * Assessment & Plan Note - Em Zuluaga CRNP - 03/26/2023 1:54 PM EDT Associated Problem(s): Primary pulmonary hypertension (HCC) Continue diuretic * Assessment & Plan Note - Em Zuluaga CRNP - 03/26/2023 1:54 PM EDT Associated Problem(s): Moderate persistent asthma without complication singulair daily breo daily pulmicort nebs BID PFT 2019 Has rescue inhaler uses very seldom Cannot use albuterol nebs d/t hear racing and increased anxiety * Assessment & Plan Note - Em Zuluaga CRNP - 03/26/2023 1:51 PM EDT Associated Problem(s): Anemia, chronic disease Followed by hematology documented in this encounter Plan of Treatment Upcoming Encounters Date Type Department Care Team (Late st Contact Info) Description 04/09/2023 3:20 PM EST Office Visit Family Practice [facility] [address] [address] Chris Asencio DO [address] [address] 04/11/2023 3:00 PM EST Office Visit Gastroenterology, [facility] [address] [address] Geovanna Bahena CRNP [address] [address] 04/16/2023 10:00 AM EST Home Visit [facility] [address] [place], [place] [address] Penny Parikh, RN [address], [place] [address] 04/24/2023 2:00 PM EST Office [facility] [address] [facility] [place] [place] [address] 05/06/2023 3:20 PM EST Office Visit Nephrology, [facility] [address] [place] [address] Eric Day MD [address] [place] [address] 05/09/2023 1:40 PM EST Office Visit Family Practice [facility] [place] [address] Chris [facility]encio DO [address] [facility] [place] [address] 05/28/2023 11:30 AM EST Laboratory Laboratory, [address] [phone] [address] [address] 06/03/2023 2:30 PM EST Office Visit Hematology/Oncology [facility] [address] [place] [address] Henok Stauffer MD [address] [place] [address] 06/11/2023 1:30 PM EST Office Visit Cardiology, [facility] [address] [facility] [place] [address] Sophy Sands PA-C [address] [place] [address] 07/05/2023 8:00 AM EST Office Visit Nutrition & Weight Management, [facility] [address] [place] [address] Iris Cerrato PA-C [address] [place] [address] 08/08/2023 2:00 PM EDT Office Visit [facility] [address] [place] [address] Taty Tobar CRNP [address] [place] [address] 10/03/2023 6:20 PM EDT Office Visit Family [facility] [address] [place] [address] Chris Asencio DO [address] [place] [address] 11/07/2023 3:40 PM EDT Office Visit [facility] [address] [place] [address] Chris Asencio DO [address] [place] [address] 02/06/2024 2:00 PM EDT Office Visit [facility] [address] [place] [address] Taty Tobar CRNP [address] [place] [address] 02/28/2024 1:30 PM EDT Imaging Radiology [facility] 1st Floor, [place] [address] [place] [address] 03/05/2024 2:00 PM EDT Office Visit Ophthalmology, [facility] [address] [place] [address] Ernie Rivers, DO [address] [place] [address] Scheduled Procedures Name Priority Associated Diagnoses Date/Ti [...] Screening 10/13/2023 10/12/2022 CKD PHOS USE SMARTSET 53235 01/11/202412/25, 09/06/2022, 03/01/2022, Additional history exists Albumin/Creatinine Ratio 01/25/2024 023, 09/06/2022, 11/24/2021, Additional history exists CKD HGB USE SMARTSET 32110 01/25/202401/24, 01/24/2023, 01/10/2023, Additional history exists Diabetic [...] disease- Primary Anemia of other chronic disease Type 2 diabetes mellitus with stage 3a chronic kidney disease, with long-term current use of insulin (HCC) Type II diabetes mellitus with neurological manifestations (HCC) Type II or unspecified type diabetes mellitus with neurological manifestations, not stated as uncontrolled Moderate persistent asthma without complication Unspecified asthma Primary pulmonary hypertension (HCC) Primary pulmonary hypertension KATERIN (obstructive sleep apnea) Obstructive sleep apnea (adult) (pediatric) documented in this encounter Advance Directives Documents on File Type Date Recorded Patient Asset Protection Officer Expl anation POL 10/20/2021 [place] [facility] FOR LIFE-SUSTAINING TREATMENT Latest Code Status on File Code Status Date Activated Date Inactivated Comments Full Code 03/30/2022 6:40 AM 03/30/2022 2:12 PM This order reflects the patients wishes and were consensually agreed upon. Question Answer Comments Discussion of Advance Directives occurred with: Patient Does the patient have a Living Will? No Does the patient have Health Care Power of Materials Management Supervisor? No Care Teams Rough Patcher Relationship Specialty Start Date End Date Chris Asencio DO [facility] [place] [address] PCP - General Family Medicine 01/07/18 documented as of this encounter
--- OUTSIDE RECORDS SUMMARY | 2023-06-20 00:37 | External Medical Summary | Summary of Care ---
Author Name Unknown Organization [facility] Address [address] [place] [address] Phone [phone] Care Team Providers Care Sales Representative Gas Service Name Role Phone Asencio Chris Fabiananay Primary Care Provider Reason for Visit * Reason Comments Outpatient Testing Encounter Details Date Type Department Care Team (Late st Contact Info) Description 04/01/2023 11:00 AM EST Laboratory Laboratory, [place] [address] [place] [address] [place], [facility] [address] [place] [address] Suspected urinary tract infection Allergies Active Allergy Reactions Criticality Noted Date [...] Ondansetron Other (Please comment) 09/06/2020 Pt requesting afia be placed on allergy list due to extreme tiredness and fatigue after medication. documented as of this encounter (statuses as of 04/01/2023) Medications Medication Sig Dispensed Refills Start Date [...] 1 Each 5 10/20/2020 Active Dexcom G6 Rig Welder DeviceIndications:Typ e 2 diabetes mellitus with stage [...] 08/06/2022 Active Additional Information Patient taking differently:2 [place] Each NostrilBID (.AM/PM), Reported on 12/24/2022 Famotidine [...] bedtime. 90 Tablet 3 10/23/2022 Active Methscopolamine [place] 2.5 MG Oral TabletIndications:Irr itable bowel syndrome [...] as of this encounter (statuses as of 04/01/2023) Active Problems Patient Care Coordination No te [...] as of this encounter (statuses as of 04/01/2023) Resolved Problems Problem Noted Date Diagnosed Date [...] Signed 06/04/2014 Pranav Sanchez MD [facility] [place] Spinal pain 06/04/2014 02/02/2017 Type 2 diabetes [...] Carpal tunnel syndrome 09/11/200503/09 HTN, goal below 140/07/11/200509/06 Overview: Per HTN Taxonomy. OBESITY, UNSPECIFIED 08/13/2004 [...] as of this encounter (statuses as of 04/01/2023) Immunizations Name Administration Dates Next Due COVID-19 mRNA, LNP-s, No Pre serve, 2-Dose Series ([employer]) 09/09/2020,08/19/2020 Pneumococcal Conjugate Vacc, 13 Valent (Prevnar) [...] 3:20 PM EST Office Visit Family Practice [facility] [address] [address] Chris Asencio, [address] [place] [address] 04/11/2023 3:00 PM EST Office Visit Gastroenterology, [facility] [address] [place] [address] Geovanna Bahena CRNP [address] [place] [address] 04/16/2023 10:00 AM EST [facility] Visit [facility], [facility] [address] [place] [address] Penny Parikh RN [address] [place] [address] 04/24/2023 2:00 PM EST Office Visit Pharmacy, [facility] 132 [facility] [place] [address] [facility] [place] [address] 05/06/2023 3:20 PM EST Office Visit Nephrology, [facility] [address] [place] [address] Eric Day MD [address] [place] [address] 05/09/2023 1:40 PM EST Office Visit Family Practice [facility] [address] [place] [address] Chris Asencio DO [address] [place] [address] 05/28/2023 11:30 AM EST Laboratory Laboratory, [place] [address] [place] [id number] [place] [address] [place] [address] 06/03/2023 2:30 PM EST Office Visit Hematology/Oncology [facility] [address] [place] [address] Henok Stauffer MD 200 [facility] [place] [address] 06/11/2023 1:30 PM EST Office Visit Cardiology, [facility] [address] [place] [address] Sophy Sands PALillyC [address] [place] [address] 07/05/2023 8:00 AM EST Office Visit Nutrition & Weight Management, [facility] [address] [facility] [place] [address] Iris Cerrato PA-C [address] [place] [address] 08/08/2023 2:00 PM EDT Office Visit [facility] [address] [place] [address] Taty Tobar CRNP [address] [place] [address] 10/03/2023 6:20 PM EDT Office Visit [facility] [address] [facility] [place] [address] Chris Asencio, [address] [place] [address] 11/07/2023 3:40 PM EDT Office Visit [facility] [address] [place] [address] Chris Asencio, [address] [place] [address] 02/06/2024 2:00 PM EDT Office Visit [facility] [address] [place] [address] Taty Tobar CRNP [address] [place] [address] 02/28/2024 1:30 PM EDT Imaging Radiology [facility] [address] [place] [address] 03/05/2024 2:00 PM EDT Office Visit Ophthalmology, [facility] [address] [place] [address] Ernie Rivers, DO [address] [facility] [place] [address] Pending Results Name Type Priority Associated Diagnoses Date /Time URINALYSIS WITH MICROSCOPIC EXAM Lab Routine Suspected urinary tract infection 04/01/2023 10:54 AM EST CULTURE, URINE, QUANTITATIVE Lab Routine Suspected urinary tract infection 04/01/2023 10:54 AM EST Scheduled Procedures Name Priority Associated [...] Screening 10/13/2023 10/12/2022 CKD PHOS USE SMARTSET 72349 01/11/202412/25, 09/06/2022, 03/01/2022, Additional history exists Albumin/Creatinine Ratio 01/25/2024 023, 09/06/2022, 11/24/2021, Additional history exists CKD HGB USE SMARTSET 87725 01/25/202401/24, 01/24/2023, 01/10/2023, Additional history exists Diabetic [...] as of this encounter Visit Diagnoses Diagnosis Suspected urinary tract infection documented in this encounter Advance Directives Documents on File Type Date Recorded Patient Transformation Manager Expl anation POLST 10/20/2021 [place] [facility] FOR [facility]-SUSTAINING [...] the patient have Health Care Power of Mobile Application Tester? No Care Teams Sales Representative Gas Service Relationship Specialty Start Date End Date Chris Asencio DO [address] [address] PCP - General Family Medicine 01/07/18 documented as of this encounter
--- OUTSIDE RECORDS SUMMARY | 2023-06-20 00:37 | External Medical Summary | Summary of Care ---
Author Name Unknown Organization [facility] Address [address] [place] [address] Phone [phone] Care Team Providers Care Regulatory Agency Director Name Role Phone Nazia Asenciomarcos Fabiananay Primary Care Provider Reason for Visit * Reason Onset Date Comments Appointment 03/19/2023 Encounter Details Date Type Department Care Team ([facility] st Contact Info) Description 03/19/2023 Telephone [facility] [place], [address] [address] Services, Scheduling [address] [place] [address] Appointment (//) Allergies Active Allergy Reactions Criticality Noted Date [...] as of this encounter (statuses as of 03/19/2023) Medications Medication Sig Dispensed Refills Start Date [...] 1 Each 5 10/20/2020 Active Dexcom G6 Medical Management Specialist DeviceIndications:Typ e 2 diabetes mellitus with stage 3a chronic kidney disease, with long-term current use of insulin (HCC) Use as directed. 1 Each 1 10/20/2020 Active BD Pen Needle Mini U/F 31G X 5 MM (Insulin Pen Needle) USE DIRECTED WITH NOVOLOG 300 Each 1 04/19/2021 Active BiPAP every night at bedtime . 0 Active Systane Complete 0.6 % Ophthalmic Solution [...] 08/06/2022 Active Additional Information Patient taking differently:2 [place] Each NostrilBID (.AM/PM), Reported on 12/24/2022 Famotidine [...] AT BEDTIME. 135 Tablet 3 08/06/2022 Active Alosetron HCl 1 MG Oral Tablet TAKE 1 MG BY MOUTH 2 TIMES A DAY. 180 Tablet 2 08/30/2022 Active Additional Information Patient not taking.Reported on 02/01/2023 EpiPen 2-Ronni 0.3 MG/0.3ML Injection Solution Auto-injectorIndicati [...] bedtime. 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 180 Tablet 3 01/22/2023 Active Pantoprazole Sodium 40 MG Oral Tablet [...] by mouth in the morning. 0 Active Toujeo SoloStar 300 UNIT/ML Subcutaneous Solution Pen-injector (Insulin Glargine (1 Unit Dial))Indications:Typ e 2 diabetes mellitus with hemoglobin A1c goal of 7.0%-8.0% ([facility]),Type 2 diabetes mellitus with stage 3a chronic kidney disease, with long-term current use of insulin ([facility]),Type II diabetes mellitus with neurological manifestations ([facility]) INJECT UNDER THE SKIN 50 UNITS 2 TIMES A DAY . 13.5 mL 5 02/12/2023 Active NovoLOG FlexPen 100 UNIT/ML Subcutaneous Solution Pen-injector (insulin aspart)Indications:No t taking INJECT 25 UNITS UNDER THE SKIN 3 TIMES A DAY. 75 Each 3 02/12/2023 Active Ozempic (0.25 or 0.5 MG/DOSE) 2 MG/3ML Solution Pen-injector (Semaglutide(0.25 or 0.5MG/DOS))Indication s:Type 2 diabetes mellitus with stage 3b chronic kidney disease, with long-term current use of insulin ([facility]) Inject 0.5 mg under the skin once a week. 9 mL 3 03/05/2023 Active Hospital, Clinic, or Other Facility Administered Medication Ordered Dose Route Frequency Start Date End Date Status albuterol sulfate (PROVENTIL) (2.5 MG/3ML) 0.083% inhalation solution 2.5 mgIndications:Moderate persistent asthma without complication 2.5 mg NEBULIZER Q4H PRN 08/13/2018 Active documented as of this encounter (statuses as of 03/19/2023) Active Problems Patient Care Coordination No te Formatting of this note migh t be different from the original. Patient's 'Red Flags': 1. N/v/diarrhea 2. Decreased urine output 3. Unable to get out of bed Problem Noted Date Diagnosed Date Pulmonary hypertension, unspecified 01/24/2023 Hypertensive kidney disease with stage 3b chronic kidney disease 01/07/2023 Overview: Per CKD protocol Type 2 diabetes mellitus wit h stage 3b chronic kidney disease, with long-term current use of insulin 01/07/2023 Overview: Per CKD protocol Chronic kidney [...] (post-traumatic stress disorder) 10/14/2020 Persistent insomnia 10/05/2020 Major depressive disorder, recurrent, moderate 0 08/15/2020 Iron metabolism disease 08/15/2020 KATERIN (obstructive sleep apnea) 11/13/2019 Last Assessment & Plan: Prescribed Bipap- patient does not use it Has not used in over 1.5 years Medical marijuana use 11/13/2019 Ganglion cyst of volar aspect of left wrist 09/2019 Primary pulmonary hypertension 11/04/2018 Last Assessment & Plan: Controlled with current lasix 40 mg daily Follows with cardiology Type 2 diabetes mellitus wit h diabetic [...] as of this encounter (statuses as of 03/19/2023) Resolved Problems Problem Noted Date Diagnosed Date Resolved Date Cardiogenic shock 01/03/2023 01/03/2023 Acute respiratory disease du e to COVID-19 virus 09/22/2021 02/15/2022 Chronic kidney disease, stage 3a 10/04/2020 01/10/2023 Overview: Per CKD protocol Type 2 diabetes mellitus wit h stage 3a chronic kidney disease, with long-term current use of insulin 10/04/2020 01/10/2023 Overview: Per CKD protocol Last Assessment & Plan: Current Status: "Stable" for patient / At or near baseline Degree of Condition Awareness: Demonstrates very good awareness of condition, disease course, and prognosis "RED FLAG" Diabetic symptoms: o none Goal HgbA1c o <7 Diabetic Complications o Vascular (examples: PVD, PAD, CAD, CVA) o Neurologic (example: Peripheral Neuropathy) o Renal (example: CKD, Proteinuria, Dialysis) Medication Regimen o GLP-1 Agonist (ex: Victoza, Trulicity, Ozempic) o Other: toujeo DM Secondary Prevention o CLARITA Inhibitor / ARB o Moderate-High Intensity Statin o Aspirin o Routine Podiatry Care o Yearly Diabetic Eye Exam Hemoglobin AIC Results: Lab Results Component Value Date/Time HEMOGLOBIN A1C - [facility] 6.7 (H) 09/06/2022 12:35 PM HEMOGLOBIN A1C - [facility] 6.7 (H) 08/10/2022 11:22 AM HEMOGLOBIN A1C - [facility] 6.1 (H) 03/01/2022 01:17 PM HEMOGLOBIN A1C - [facility] 6.7 (H) 05/24/2020 11:20 AM HEMOGLOBIN A1C - [facility] 7.0 (H) 11/13/2019 03:25 PM HEMOGLOBIN A1C - [facility] 7.6 (H) 05/06/2019 11:23 AM Unspecified mood (affective) disorder 08/15/2020 10/14/2020 Hypertensive [...] 06/04/2014 Overview: Signed 06/04/2014 Pranav Sanchez MD [facility] [place] Spinal pain 06/04/2014 02/02/2017 Type 2 diabetes [...] as of this encounter (statuses as of 03/19/2023) Immunizations Name Administration Dates Next Due COVID-19 mRNA, LNP-s, No Pre serve, 2-Dose Series ([employer]) 09/09/2020,08/19/2020 Pneumococcal Conjugate Vacc, 13 Valent (Prevnar) [...] encounter Miscellaneous Notes * Telephone Encounter - KATERIN Cameron - 03/19/2023 8:11 AM EDT Due to call off, telemed r/s to this fri 03/22 at 3pm, pt aware and agreeable documented in this encounter Plan of Treatment Upcoming Encounters Date Type Department Care Team (Late st Contact Info) Description 03/22/2023 3:00 PM EDT Telemedicine [facility] [place], [facility] 132 [facility] [place] [address] Em Zuluaga CRNP [address] [facility] [place] [address] Yvette Licea, Community Health Patient Access Manager [address] [place] [address] 04/09/2023 3:20 PM EST Office Visit Family Practice [facility] 132 [facility] [place] [address] Chris Asencio DO [address] [place] [address] 04/11/2023 3:00 PM EST Office Visit Gastroenterology, [facility] 132 [facility] [place] [address] Geovanna Bahena CRNP [address] [facility] [place] [address] 04/16/2023 10:00 AM EST Home Visit [facility], [facility] [address] [place] [address] Penny Parikh, RN [address] [place] [address] 04/24/2023 2:00 PM EST Office Visit Pharmacy, [facility] 132 [facility] [place] [address] [facility] [address] [place] [address] 05/06/2023 3:20 PM EST [facility] [address] [facility] [place] [address] Eric Day MD [address] [facility] [place] [address] 05/09/2023 1:40 PM EST Office Visit Family Practice [facility] [address] [place] [address] Chris Asencio DO [address] [place] [address] 05/28/2023 11:30 AM EST Laboratory Laboratory, [place] [address] [place] [phone] [place] [address] [place] [address] 06/03/2023 2:30 PM EST Office Visit Hematology/Oncology [facility] [address] [place] [address] Henok Stauffer MD [address] [facility] [place] [address] 06/11/2023 1:30 PM EST Office Visit Cardiology, [facility] [address] [place] [address] Sophy [place]ands, [place] [address] [place] [address] 07/05/2023 8:00 AM EST Office Visit Nutrition & Weight Management, [facility] [address] [place] [address] Iris Cerrato PA-C [address] [place] [address] 08/08/2023 2:00 PM EDT Office Visit [facility] [address] [place] [address] Taty Tobar CRNP [address] [place] [address] 10/03/2023 6:20 PM EDT Office Visit [facility] [address] [place] [address] Chris Asencio, [address] [place] [address] 11/07/2023 3:40 PM EDT Office Visit [facility] [address] [place] [address] Chris Asencio, [address] [place] [address] 02/06/2024 2:00 PM EDT Office Visit [facility] 132 [facility] [place] [address] Taty Tobar CRNP [address] [place] [address] 02/28/2024 1:30 PM EDT [facility] 132 [facility] [place] [address] 03/05/2024 2:00 PM EDT Office Visit [facility]hthal[facility], [facility] [place] [address] Ernie Rivers, DO [address] [place] [address] Scheduled Procedures Name Priority Associated Diagnoses Date/Ti [...] Screening 10/13/2023 10/12/2022 CKD PHOS USE SMARTSET 67475 01/11/202412/25, 09/06/2022, 03/01/2022, Additional history exists Albumin/Creatinine Ratio 01/25/2024 023, 09/06/2022, 11/24/2021, Additional history exists CKD HGB USE SMARTSET 13026 01/25/202401/24, 01/24/2023, 01/10/2023, Additional history exists DIABETES-EYE EXAM 02/22/2024 02/21/2023, , 02/21/2023, Additional history exists [...] Documents on File Type Date Recorded Patient Sourcing Intern Expl anation POLST 10/20/2021 [place] OR [facility] FOR LIFE-SUSTAINING TREATMENT Latest Code Status on File Code Status Date Activated Date Inactivated Comments Full Code 03/30/2022 6:40 AM 03/30/2022 2:12 PM This order reflects the patients wishes and were consensually agreed upon. Question Answer Comments Discussion of Advance Directives occurred with: Patient Does the patient have a Living Will? No Does the patient have Health Care Power of Crm Campaign Manager? No Care Teams Regulatory Agency Director Relationship Specialty Start Date End Date Chris Asencio DO [address] [place] [address] PCP - General Family Medicine 01/07/18 documented as of this encounter
--- OUTSIDE RECORDS SUMMARY | 2023-06-20 00:37 | External Medical Summary | Summary of Care ---
Author Name Unknown Organization [facility] Address [address] [place] [address] Phone [phone] Care Team Providers Care Head Of Insight Name Role Phone AsencioJoeChrismelissa Fabiananay Primary Care Provider Reason for Visit * Reason Comments [facility]: Maintenance Encounter Details Date Type Department Care Team Description 02/26/2023 Home Visit [facility], [facility] [address] [facility] [place] [address] Penny Parikh RN [address] [facility] [place] [address] Allergies Active Allergy Reactions Severity Noted Date Comments Pioglitazone Hydrochloride Rash 03/01/2010 [...] as of this encounter (statuses as of 03/05/2023) Medications Medication Sig Dispensed Refills Start Date [...] 1 Each 5 1 Active Dexcom G6 Md Pediatric Allergist DeviceIndications:Ty pe 2 diabetes mellitus with stage 3a chronic kidney disease, with long-term current use of insulin (HCC) Use as directed. 1 Each 1 1 Active BD Pen Needle Mini U/F 31G X 5 MM (Insulin Pen Needle) USE DIRECTED WITH NOVOLOG 300 Each 1 1 Active BiPAP every night at bedtime . [...] 3 Active Additional Information Patient taking differently:2 Kiel Each NostrilBID (.AM/PM), Reported on 12/24/2022 Famotidine [...] AT BEDTIME. 135 Tablet 3 3 Active Alosetron HCl 1 MG Oral Tablet TAKE 1 MG BY MOUTH 2 TIMES A DAY. 180 Tablet 2 3 Active Additional Information Patient not taking.Reported on 02/01/2023 EpiPen 2-Ronni 0.3 MG/0.3ML Injection Solution Auto-injectorIndicat [...] bedtime. 90 Tablet 3 3 Active Methscopolamine [place] 2.5 MG Oral TabletIndications:Ir ritable bowel syndrome with diarrhea TAKE 1 TAB UP TO 3 TIMES DAILY NEEDED FOR ABDOMINAL CRAMPS & DIARRHEA, 270 Tablet 1 3 Active OneTouch Verio In Vitro Strip (Glucose Blood)Indications:Ty pe II diabetes mellitus with neurological manifestations (HCC) USE UP TO 4 TIMES A DAY DIRECTED 100 Strip 11 3 Active Furosemide 40 MG Oral Tablet (Lasix)Indications:H TN, goal below 140/90,Venous insufficiency Take 1 Tablet by mouth in the morning and 1 Tablet before bedtime. 180 Tablet 3 3 Active Pantoprazole Sodium 40 [...] mellitus with hemoglobin A1c goal of 7.0%-8.0% ([facility]),Type 2 diabetes mellitus with stage 3a chronic kidney disease, with long-term current use of insulin ([facility]),Type II diabetes mellitus with neurological manifestations ([facility]) INJECT UNDER THE SKIN 50 UNITS 2 TIMES A DAY . 13.5 mL 5 3 Active NovoLOG FlexPen 100 UNIT/ML Subcutaneous Solution Pen-injector (insulin aspart)Indications:N ot taking INJECT 25 UNITS UNDER THE SKIN 3 TIMES A DAY. 75 Each 3 3 Active Ozempic (0.25 or 0.5 MG/DOSE) 2 MG/3ML Solution Pen-injector (Semaglutide(0.25 or 0.5MG/DOS))Indicatio ns:Type 2 diabetes mellitus with stage 3b chronic kidney disease, with long-term current use of insulin ([facility]) Inject 0.5 mg under the skin once a week. 9 mL 3 3 03/05/20 23 Discontinu ed(Refill) Hospital, Clinic, or Other Facility Administered Medication Ordered Dose Route Frequency Start Date End Date Status albuterol sulfate (PROVENTIL) (2.5 MG/3ML) 0.083% inhalation solution 2.5 mgIndications:Moderate persistent asthma without complication 2.5 mg NEBULIZER Q4H PRN 08/13/2018 Active documented as of this encounter (statuses as of 03/05/2023) Active Problems Patient Care Coordination No te Formatting of this note migh t be different from the original. Patient's 'Red Flags': 1. N/v/diarrhea 2. Decreased urine output 3. 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 08/22/2021 Unspecified mood (affective) disorder Panic disorder 08/22/2021 KARI (generalized anxiety disorder) 10/14 PVC's (premature ventricular contraction s) 10/14/2020 PTSD (post-traumatic stress disorder) Persistent insomnia 10/05/2020 Major depressive disorder, recurrent, mo derate 08/15/2020 Iron metabolism disease 08/15/2020 KATERIN (obstructive sleep apnea) 11/13/2019 Last Assessment & Plan: Prescribed Bipap- patient does not use it Has not used in over 1.5 years Medical marijuana use 11/13/2019 Ganglion cyst of volar aspect of left wr ist 07/01/2019 Primary pulmonary hypertension 9 Last Assessment & Plan: Controlled with current lasix 40 mg daily Follows with cardiology Type 2 diabetes mellitus wit h diabetic nephropathy, with long-term current use of insulin 11/04/2018 Moderate persistent asthma without compl ication 07/10/2018 Last Assessment & Plan: singulair daily breo daily pulmicort nebs BID PFT 2019 Has rescue inhaler uses very seldom Cannot use albuterol nebs d/t hear racing and increased anxiety Restless legs syndrome 07/10/2018 Type II diabetes mellitus with neurologi quinn manifestations 06/05/2018 HTN, goal below 130/80 08/01/2015 Overview: Per HTN Protocol #27. Gastroesophageal reflux disease with eso phagitis without hemorrhage 01/16/2012 Last Assessment & Plan: protonix 40 mg BID Irritable bowel syndrome documented as of this encounter (statuses as of 03/05/2023) Resolved Problems Problem Noted Date Resolved Date Cardiogenic shock 01/03/2023 01/03/2023 Acute respiratory disease due to COVID-19 virus 09/22/2021 02/15/2022 Chronic kidney disease, stage 3a 10/04/2020 01/10/2023 Overview: Per CKD protocol Type 2 diabetes mellitus wit h stage 3a chronic kidney disease, with long-term current use of insulin 10/04/2020 023 Overview: Per CKD protocol Last Assessment & [...] with long-term current use of insulin 10/27/2019 021 Overview: DM2 + CKD III - conditions have assumed relationship per current coding guidelines. Hypertensive kidney disease with chronic kidney disease stage III 10/27/2019 04/07/2020 Overview: HTN + CKD III - conditions have assumed relationship per current coding guidelines. Kidney disease, chronic, stage III (GFR 30-59 ml /min) 06/08/2019 11/05/2019 Overview: Per CKD protocol Type 2 diabetes mellitus wit h hemoglobin A1c goal of less than 8.0% 11/04/2018 01/03/2023 Current use of insulin 07/10/2018 Body mass index (BMI) of 40.0 to 44.9 in adult 0 06/09/2018 10/27/2019 Overview: Per Obesity protocol #1 Duplicate. Primary osteoarthritis of right knee 06/05/2018 11/13/2019 Acute adjustment disorder with anxiety 8 10/14/2020 Diabetes mellitus due to und erlying condition with diabetic mononeuropathy 04/07/2018 05/14/2018 Adult BMI 45.0-49.9 kg/sq m 04/07/201805/27 Overview: Per Obesity protocol #1 Opioid dependence in remission 04/07/2018 1 07/15/2017 Body mass index (BMI) of 45.0 to 49.9 in adult 1 05/09/2018 Overview: Per Obesity protocol #1 Morbid obesity with body mass index of 40.0-44.9 in adult 07/10/2017 09/06/2022 Moderate persistent asthma with exacerbation 07/10/2018 Uncontrolled type 2 diabetes mellitus with microalbuminuria, with long-term current use of insulin 07/10/2017 07/10/2018 Asthma exacerbation 10/17/2016 02/02/2017 MEDICATION USE AGREEMENT 06/04/2014 018 Overview: Signed 06/04/2014 Pranav Sanchez MD [facility] [place] Spinal pain 06/04/2014 02/02/2017 Type 2 diabetes mellitus wit h hemoglobin A1c goal of 7.0%-8.0% 05/13/2014 10/14/2020 Overview: ICD-10 update of inactive term Spinal pain 05/13/2014 06/04/2014 DM type 2 causing renal disease 06/16/2012 10/14/2020 HTN, GOAL BELOW 140/80 01/14/2012 6 Overview: Per HTN Protocol #27. Acute cystitis 06/12/2010 03/09/2011 OBESITY, BMI 30-34 (SEE ACTUAL BMI) 08/18/2009 01/07/2018 Overview: Per Obesity Taxonomy HTN, GOAL BELOW 130/80 06/22/2009 2 Overview: Per HTN Taxonomy. Dyslipidemia 05/11/2009 08/09/2022 Overview: Per Lipid Taxonomy. Type 2 diabetes mellitus wit h hemoglobin A1c goal of less than 7.0% 03/24/2009 06/16/2012 Overview: Per Diabetes Taxonomy. ICD-10 update of inactive term Type 2 diabetes mellitus wit h hemoglobin A1c goal of less than 7.0% 08/20/2006 03/24/2009 Overview: Per Diabetes Taxonomy. ICD-10 update of inactive term ADVANCE DIRECTIVE INFORMATION 01/08/2006 Overview: Pt declines booklet. Carpal tunnel syndrome 09/11/2005 1 HTN, goal below 140/90 07/11/2005 3 Overview: Per HTN Taxonomy. OBESITY, UNSPECIFIED 08/13/2004 08/18/2009 Overview: Per Obesity Taxonomy Venous insufficiency 04/27/2002 10/14/2020 NEURALGIA-NEURITIS NOS 12/18/2001 2 OTHER SPECIFIED COMPLICATION S OF PROCEDURES NOT ELSEWHERE CLASSIFIED 06/16/2001 07/24/2011 Edema 03/06/2001 07/24/2011 Mixed dyslipidemia 03/06/2001 05/11/2009 Overview: Per Lipid Taxonomy. Varicose vein of leg 11/21/2000 01/07/2018 FAMILY HX-BREAST MALIG 03/18/2000 5 FAMILY HX-GI MALIGNANCY 06/08/1997 07/10/19 19 Panic disorder 10/14/2020 CLASSICAL MIGRAINE WITHOU MENTION OF INTRACTABLE MIGRAINE 09/24/2013 BACKACHE NOS 02/02/2017 Menopause 07/24/2011 Allergic rhinitis 10/27/2019 Overview: Acute. Dysthymic disorder 10/14/2020 Neuralgia of chest 01/07/2018 Asthma exacerbation 10/17/2016 Asthma dependent on inhaled steroids 02/02/2017 documented as of this encounter (statuses as of 03/05/2023) Immunizations Name Administration Dates Next Due COVID-19 mRNA, LNP-s, No Pre serve, 2-Dose Series ([employer]) 09/09/2020,08/19/2020 Pneumococcal Conjugate Vacc, 13 Valent (Prevnar) [...] drink = 0.6 oz pur e alcohol) Food Insecurity Answer Date Recorded Within the past 12 months, y ou worried that your food would run out before you got money to buy more. Never true 10/12/2022 Within the past 12 months, t he food you bought just didn't last and you didn't have money to get more. Never true 10/12/2022 Sex Assigned at Date Recorded Female 02/25/2020 5:15 PM E DT Job Start Date Occupation Industry Not on file Not on file Not on file documented as of this encounter Last Filed Vital Signs Vital Sign Reading Time Taken Comments Blood Pressure 98/56 02/26/2023 2:05 PM EDT Pulse 60 02/26/2023 2:05 PM EDT Temperature 36.1 C (96.9 F) 02/26/2023 2:05 PM ED T Respiratory Rate 18 02/26/2023 2:05 PM EDT Oxygen Saturation 98% 02/26/2023 2:05 PM EDT Inhaled Oxygen Concentration - - Weight 105.2 kg (232 lb) 02/26/2023 2:05 PM EDT Height - - Body Mass Index 34.26 10/12/2022 2:18 PM EDT documented in this encounter Progress Notes * Penny Parikh, RN - 02/26/2023 1:54 PM EDT [facility] [employer] Visit Date: 02/26/2023 Time: 1:54 PM Name: Liane Alejandre : 1950 Current Concerns: Pt seen for return RN visit Uses Dexcom G6 sensor for glucose readings Per device, average is 131 for past 7 days Pt reports she has been monitoring her bp and noticed that it is getting higher- states she was told by doctors in hospital to stop Lisinopril 20mg but can restart it if it starts to go back up again. Pt reports she restarted this about 3 days ago She states she has been feeling well since restarting it States bp was averaging 150/90 before the lisinopril Bp readings past 3 days were not checked by pt During visit bp 98/56 Pt states she has no dizziness and is feeling well She is going to continue to monitor bp and let PCP know of readings Pt denies any concerns at this time Physical Exam: BP 98/56 | Pulse 60 | Temp 36.1 C (96.9 F) | Resp 18 | Wt 105.2 kg (232 lb) | SpO2 98% | BMI 34.26 kg/m | BSA 2.26 m Pain 0 Physical Exam Constitutional: General: She is not in acute distress. Cardiovascular: Rate and Rhythm: Normal rate and regular rhythm. Pulses: Normal pulses. Heart sounds: Normal heart sounds. Pulmonary: Effort: Pulmonary effort is normal. Breath sounds: Normal breath sounds. Abdominal: Palpations: Abdomen is soft. Musculoskeletal: Right lower leg: Edema (trace) present. Left lower leg: Edema (+1) present. Skin: General: Skin is warm and dry. Neurological: Mental Status: She is alert and oriented to person, place, and time. Problems/Symptoms: Review of Systems Constitutional: Negative. HENT: Negative. Eyes: Negative. Respiratory: Positive for shortness of breath (WILLIAM - at baseline). Cardiovascular: Positive for leg swelling. Gastrointestinal: Negative. Endocrine: Negative. Genitourinary: Negative. Musculoskeletal: Positive for arthralgias. Skin: Negative. Neurological: Negative. Psychiatric/Behavioral: Negative. Medication Reconciliation: (See medication list) Does patient take medications as ordered: Yes Patient Well Being: PHQ2/9: No questionnaires available. No change in living situation Denies falls [facility]-10 Completed this Visit: No. Routine visit and No falls since last visit Advanced Care Planning: POLST. Patient's Goals of Care: To be able to work in garden 2. To be useful to others Reinforcement/Education: Educated on home [...] am, off in pm Low sodium diet Elevate legs above heart level as tolerated x 20 minutes 3 times daily Elevate legs when sitting Follow up with nephrology Home Interventions Provided: Home Intervention: Other; Eval Reinforced current Plan of Care, including self-management and medication regimen Patient's 'Red Flags': N/V/D Decreased urine output Unable to get out of bed Patient Needs to Remember: Call [facility] at with any new or worsening health concerns or problems, red flag symptoms. Referrals Needed: Other none Follow Up: Is there cellular connectivity/connectivity in the home? Yes Does the patient have internet in the home? Yes Patient encouraged to call the intake phone number for all urgent but not emergent issues. Is the patient new to [facility] within the last 30 days? No, Assess appropriateness for upcoming telehealth visits. Cancel telehealth visits & schedule home visit with care merchandise flow team leader(s)as indicated. Provider is in agreement with Plan of Care: Yes Scheduled to follow up with patient in 3 weeks with provider, 3 weeks after with RNCM. Penny Parikh RN 02/26/2023 1:54 PM documented in this encounter Plan of Treatment Upcoming Encounters Date Type Specialty Care Team Description 03/12/2023 Imaging Radiology 03/19/2023 Telemedicine [facility] Em Zuluaga CRNP [address] [place] [address] [place], Community [facility] Computer Numerical Control Programmer [address] [place] [address] [place] [address] 04/09/2023 Office Visit Family Medicine Chris Asencio DO [address] [place] [address] 04/11/2023 Office Visit Gastroenterology Geovanna Bahena CRNP [address] [place] [address] 04/16/2023 Home Visit [facility] Penny Parikh RN [address] [place] [address] 04/24/2023 Office Visit Pharmacy [facility] Amira [address] [place] [address] 05/06/2023 Office Visit Nephrology Eric Day MD [address] [facility] [place] [address] 05/09/2023 Office Visit Family Medicine Chris Asencio DO [address] [place] [address] 05/28/2023 Laboratory Laboratory [address] [address] 06/03/2023 Office Visit Hematology Oncology Henok Stauffer MD [address] [facility] [place] [address] 06/11/2023 Office Visit Cardiology Sophy Sands PA-C [address] [place] [address] 07/05/2023 Office Visit Gastroenterology Iris Cerrato PA-C [address] [place] [address] 08/08/2023 Office Visit Family Medicine Taty Tobar CRNP [address] [place] [address] 10/03/2023 Office Visit Family Medicine Chris Asencio DO [address] [place] [address] 11/07/2023 Office Visit Family Medicine Chris Asencio, DO [address] [place] [address] 02/06/2024 Office Visit Family Medicine Taty Tobar CRNP [address] [place] [address] 02/28/2024 Imaging Radiology 03/05/2024 Office Visit Ophthalmology Ernie Rivers, DO [facility] [place] [id number] Scheduled Procedures Name Priority Associated Diagnoses Date/Ti me COLONOSCOPY FLEXIBLE PROXIMA L DIAGNOSTIC Recall Family history of colon cancer Health Maintenance Due Date Last Done Comments Zoster Vaccines (2 of 3) 05/07/2013 03/12/2013 Diabetic Foot Exam 05/23/2021 05/23/2020, 1 06/06/2018, 06/05/2018, Additional history exists COVID-19 Vaccine ( season) 2023 09/09/2020, 08/19/2020 GFR 07/25/2023 01/24/2023, 12/25, 01/03/2023, Additional history exists HbA1c 07/25/2023 01/24/2023, 08/25, 08/10/2022, Additional history exists Depression Screening 10/13/2023 10/12/2022 CKD PHOS USE SMARTSET 26782 01/11/202412/25, 09/06/2022, 03/01/2022, Additional history exists Albumin/Creatinine Ratio 01/25/2024 023, 09/06/2022, 11/24/2021, Additional history exists CKD HGB USE SMARTSET 70636 01/25/202401/24, 01/24/2023, 01/10/2023, Additional history exists DIABETES-EYE [...] on patient's age to complete this topic Hepatitis B Aged Out No longer eligi ble based on patient's age to complete this topic MENINGOCOCCAL (MENACTRA/MENVEO) Aged Out No longer eligible based on patient's age to complete this topic documented as of this encounter Medical Devices Not on filedocumented as of this encounter Advance Directives Documents on File Type Date Recorded 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 No Care Teams Head Of Insight Relationship Specialty Start Date End Date Chris Asencio DO [address] [place] [address] PCP - General Family Medicine 01/07/18 documented as of this encounter
--- OUTSIDE RECORDS SUMMARY | 2023-06-20 00:37 | External Medical Summary ---
Author Name Unknown Address Unknown Organization [id number]:LABORATORY [facility] - [address] [facility] [address] Laboratory Report Ordering Provider Test Date Status BIANCA KAUR 04/01/2023 10:54:43 Final Observation Date Value Abnormality Reference (Units ) Status Color of Urine by Auto 04/01/2023 10:54:43 Yellow Colorless, Light Yellow, Yellow, Dark Yellow Final Clarity, Urine 04/01/2023 10:54:43 Cloudy Abnormal Clear Final Glucose [Mass/volume] in Urine by Automated test strip 04/01/2023 10:54:43 Negative Negative (mg/dL) Final Bilirubin.total [Presence] in Urine by Automated test strip 04/01/2023 10:54:43 Negative Negative Final Ketones [Mass/volume] in Urine by Automated test strip 04/01/2023 10:54:43 Negative Negative (mg/dL) Final Specific gravity, Urine 04/01/2023 10:54:43 1.009 1.003-1.030 Final Hemoglobin [Presence] in Urine by Automated test strip 04/01/2023 10:54:43 Moderate Abnormal Negative Final pH, Urine 04/01/2023 10:54:43 6.0 5.0-7.5 (Units) Final Protein [Mass/volume] in Urine by Automated test strip 04/01/2023 10:54:43 30 Abnormal Negative (mg/dL) Final Urobilinogen [Mass/volume] in Urine by Automated test strip 04/01/2023 10:54:43 Normal Normal (mg/dL) Final Nitrite [Presence] in Urine by Automated test strip 04/01/2023 10:54:43 Negative Negative Final Leukocyte esterase [Presence] in Urine by Automated test strip 04/01/2023 10:54:43 Large Abnormal Negative Final RBC, Urine 04/01/2023 10:54:43 50+ Abnormal 0-2 (/HPF) Final WBC, Urine 04/01/2023 10:54:43 50+ Abnormal 0-2 (/HPF) Final Bacteria [#/area] in Urine sediment by Microscopy high power field 04/01/2023 10:54:43 0-25 0-25 (/HPF) Final Leukocyte clumps [#/area] in Urine sediment by Microscopy high power field 04/01/2023 10:54:43 Present Abnormal None (/HPF) Final Performing Location LABORATORY [facility] - [address] [facility] [address]
--- OUTSIDE RECORDS SUMMARY | 2023-06-20 00:38 | External Medical Summary | Summary of Care ---
Author Name Unknown Organization [facility] Address [address] [address] Phone [phone] Care Team Providers Care Newspaper Inserter Name Role Phone AsencioJoeChrismelissa Fabiananay Primary Care Provider Reason for Visit * Reason Comments Follow Up Return SERGEI 2020. Pt states" I was in the hospital because I had infection and was septic. When I was higher dose of Ozempic vision was blurry but when on low dose its better" Encounter Details Date Type Department Care Team Description 02/21/2023 Office Visit Ophthalmology, [facility] [address] [facility] [place] [address] Ernie Rivers DO [address] [facility] [place] [address] Mild nonproliferative diabetic retinopathy of both eyes without macular edema associated with type 2 diabetes mellitus (HCC)*; Diabetic eye exam (HCC); Combined forms of age-related cataract of both eyes; Dry eyes, bilateral; Visual distortions of shape and size Allergies Active Allergy Reactions Severity Noted Date [...] as of this encounter (statuses as of 02/21/2023) Medications Medication Sig Dispensed Refills Start Date [...] HCl 100 MG Oral Capsule (SINEquan) Take 1 Capsule by mouth at bedtime. 0 08/10/2020 Active [...] 1 Each 5 10/20/2020 Active Dexcom G6 Income Tax Consultant DeviceIndications:Typ e 2 diabetes mellitus with stage [...] 08/06/2022 Active Additional Information Patient taking differently:2 [place] Each NostrilBID (.AM/PM), Reported on 12/24/2022 Famotidine [...] the morning. 90 Tablet 3 09/06/2022 Active Additional Information Patient not taking.Reason: on hold 12/27 for hypotension, Reported on 12/27/2022 Prochlorperazine Maleate 10 MG Oral Tablet (Compazine)Indication [...] bedtime. 90 Tablet 3 10/23/2022 Active Methscopolamine [place] 2.5 MG Oral TabletIndications:Irr itable bowel syndrome [...] fluid accumulation or weight gain. 180 Tablet 01/24/2023 Active Vitamin C 500 MG Oral Capsule Take 1 Capsule by mouth in the morning. 0 Active Ferrous Gluconate 240 (27 Fe) MG Oral Tablet (Ferate) Take 1 Tablet by mouth in the morning. 0 Active Toujeo SoloStar 300 UNIT/ML Subcutaneous Solution Pen-injector (Insulin Glargine (1 Unit Dial))Indications:Typ e 2 diabetes mellitus with hemoglobin A1c goal of 7.0%-8.0% ([facility]),Type 2 diabetes mellitus with stage 3a chronic kidney disease, with long-term current use of insulin ([facility]),Type II diabetes mellitus with neurological manifestations (HCC) INJECT UNDER THE SKIN 50 UNITS 2 [...] current use of insulin ([facility]) Inject 0.5 mg under the skin once a week. 9 mL 3 02/12/2023 Active Hospital, Clinic, or Other Facility Administered Medication Ordered Dose Route Frequency Start Date End Date Status albuterol sulfate (PROVENTIL) (2.5 MG/3ML) 0.083% inhalation solution 2.5 mgIndications:Moderate persistent asthma without complication 2.5 mg NEBULIZER Q4H PRN 08/13/2018 Active documented as of this encounter (statuses as of 02/21/2023) Active Problems Patient Care Coordination No te [...] as of this encounter (statuses as of 02/21/2023) Resolved Problems Problem Noted Date Resolved Date [...] 11/04/2018 01/03/2023 Current use of insulin 07/10/2018 1 Body mass index (BMI) of 40.0 to [...] 018 Overview: Signed 06/04/[address] [facility] [place] Spinal pain 06/04/2014 02/02/2017 Type 2 diabetes [...] as of this encounter (statuses as of 02/21/2023) Immunizations Name Administration Dates Next Due COVID-19 mRNA, LNP-s, No Pre serve, 2-Dose Series (Pfizer) 09/09/2020,08/19/2020 Pneumococcal Conjugate Vacc, 13 Valent (Prevnar) 04/03/2018,10/17/2016 Pneumococcal Polysaccharide PPV23 (Pneumovax) 04/04/2019,11/04/2018,12/10/2006 Seasonal Influenza, PF, 6 mo ns & Above, IM , (Flulaval) 02/25/2020,02/05/2019,01/29/2018,04/16 Seasonal Influenza, Quadriva lent Hd (Fluzone [...] as of this encounter Progress Notes * Ernie Rivers, DO - 02/21/2023 12:30 PM EDT 02/21/23 [facility] Op[facility]mology Clinic Note HPI: Liane Alejandre is a 72 year old pt who presents to the eye clinic today as a return. Location: OU Severity: Mild/moderate Quality: Visual disturbances, blue/purple in vision for minutes. Recent bacteremia at [facility] [place], recovering. Exacerbating/Remitting Factors: Denies Associated Sx: Denies Past Ocular History: Glasses Cataract OU Mild NPDR OU STIVEN OU Eye Medications:Denies Family Ocular History: Denies ROS: Pt denies acute vision changes Pt denies new onset double vision Pt denies new WARNER Pt denies new issues surrounding eyes Pt admits to above Please see below for full exam details. Base Eye Exam Visual Acuity (Snellen - Linear) Right Left Dist cc 20/30 20/30 Correction: Glasses Tonometry (Tonopen, 12:37 PM) Right Left Pressure 11 10 Pupils Light Shape React APD Right 5 Round Minimal None Left 5 Round Minimal None Visual Crowell (Counting fingers) Right Left Full Restrictions Partial outer inferior nasal deficiency Extraocular Movement Right Left Full Full Neuro/Psych Oriented x3: Yes Mood/Affect: Normal Dilation Both eyes: 0.5% Proparacaine, 2.5% Phenylephrine, 1.0% Mydriacyl @ 12:37 PM Additional Tests Keratometry K1 [place] K2 [place] Right 44.75 076 45.25 166 Left 45.75 081 46.25 171 Slit Lamp and Fundus Exam External Exam Right Left External Normal Normal Slit Lamp Exam Right Left Lids/Lashes MGD MGD Conjunctiva/Sclera White and quiet White and quiet Cornea PEK PEK Anterior Chamber Deep and quiet Deep and quiet Iris Round and reactive Round and reactive Lens 1.5+ NSC, diffuse vacuoles 1.5+ NSC, diffuse vacuoles, peripheral cortical diffuse Fundus Exam Right Left Vitreous PVD, no pigment PVD, no pigment Disc Normal Normal Macula Rare MA Rare MA Vessels Normal Normal Periphery Normal, no RT/RD Normal, no RT/RD Refraction Wearing Rx Sphere Cylinder [place] Add Right -0.75 +1.50 002 +2.25 Left -0.75 +1.75 170 +2.25 Manifest Refraction (Auto) Sphere Cylinder [place] Right -0.25 +1.50 173 Left -0.75 +0.75 167 Date: 04/13/21 OCT Macula: OD - Normal, no DME OS - Normal, no DME Refraction 05/11/21: Right eye: -0.75 +1.25 x 180 - 20/25 Left eye: -1.00 +1.75 x180 - 20/40 ADD +2.75 - J2 A/P: Cataract, OU Stable, monitor for now Dry Eyes OU -Recommend artificial tears up to 4 times daily -Brand names given - Refresh or Systane As needed Mild NPDR, OU -Mild diabetic changes on posterior exam -Cont blood glucose control and HTN control -Explained pathophysiology of how diabetes affects eyes -RTC in 1 year for routine f/u Actually improved over past few years Last performed 01/2023 Due next 01/2024 Visual disturbance -Patient states this resolved after decreasing ozempic and has not returned If any return or worsening, would elect for carotid doppler RTC 1 year or sooner prn. Ernie Rivers DO 02/21/23 I spent a total of 10-19 minutes (exact time 15 mins) on the date of service in preparation, delivery, and documentation of the care provided to Liane Alejandre excluding any time spent in the performance of separately billed services. documented in this encounter Nursing Notes * GUERO Salinas - 02/21/2023 12:31 PM EDT Return SERGEI 2020. Pt states" I was in the hospital because I had infection and was septic. When I was higher dose of Ozempic vision was blurry but when on low dose its better" Do you check your sugar daily? YES. Fasting BS this mornin mg/dl. Last Hemoglobin A1C: Lab Results Component Value Date/Time HGBA1C 6.0 (H) 01/24/2023 01:57 PM HGBA1C 6.7 (H) 09/06/2022 12:35 PM HGBA1C 6.7 (H) 08/10/2022 11:22 AM HGBA1C 6.2 (A) 09/15/2021 12:00 AM HGBA1C 6.7 (H) 05/24/2020 11:20 AM HGBA1C 7.0 (H) 11/13/2019 03:25 PM HGBA1C 7.6 (H) 05/06/2019 11:23 AM documented in this encounter Plan of Treatment Upcoming Encounters Date Type Specialty Care Team Description 02/26/2023 Imaging Radiology 02/26/2023 Imaging Radiology 03/01/2023 Home Visit [facility] Penny Parikh RN [address] [place] [address] 03/19/2023 Telemedicine [facility] Em Zuluaga CRNP [address] [place] [address] [place], [address] [place] [address] 04/09/2023 Office Visit Family Medicine Chris Asencio DO [address] [place] [address] 04/11/2023 Office Visit Gastroenterology Geovanna Bahena CRNP [address] [place] [address] 04/24/2023 Office Visit Pharmacy [facility] Amira [address] [place] [address] 05/06/2023 Office Visit Nephrology Eric Day MD [address] [place], [place] [address] [address] 05/09/2023 Office Visit Family [facility] Chris Asencio DO [address] [place] [address] 05/28/2023 Laboratory Laboratory [facility] Laboratory [address] [place] [address], [place] [address] 06/03/2023 Office Visit Hematology Oncology Henok Stauffer MD [address] [place] [address] 06/11/2023 Office Visit Cardiology Sophy Sands PA-C [address] [place] [address] 07/05/2023 Office Visit Gastroenterology Iris Cerrato PA-C [address] [place] [address] 08/08/2023 Office Visit Family [facility] Taty Tobar CRNP [address] [place] [address] 11/07/2023 Office Visit [facility] Chris Asencio DO [address] [place] [address] 02/06/2024 Office Visit Family [facility] Taty Tobar CRNP [address] [place] [address] 03/05/2024 Office Visit Ophthalmology Ernie Rivers DO [address] [place] [address] Scheduled Procedures Name Priority Associated Diagnoses Date/Ti me COLONOSCOPY FLEXIBLE PROXIMA L DIAGNOSTIC Recall Family history of colon cancer Health Maintenance Due Date Last Done Comments Zoster Vaccines (2 of 3) 05/07/2013 03/12/2013 COVID-19 Vaccine (3 - Pfizer series) 11/04/2020 09/09/2020, 08/19/2020 Diabetic Foot Exam 05/23/2021 05/23/2020, 1 06/06/2018, 06/05/2018, Additional history exists Mammogram 01/17/2023 01/17/2022, 01/2022, 06/09/2019, Additional history exists GFR 07/25/2023 01/24/2023, 12/25, 01/03/2023, Additional history exists HbA1c 07/25/2023 01/24/2023, 08/25, 08/10/2022, Additional history exists Depression Screening 10/13/2023 10/12/2022 CKD PHOS USE SMARTSET 82605 01/11/202412/25, 09/06/2022, 03/01/2022, Additional history exists Albumin/Creatinine Ratio 01/25/2024 023, 09/06/2022, 11/24/2021, Additional history exists CKD HGB USE SMARTSET 97948 01/25/202401/24, 01/24/2023, 01/10/2023, Additional history exists DIABETES-EYE EXAM 02/22/2024 02/21/2023, , 02/21/2023, Additional history exists COLONOSCOPY-EVERY 5 YRS AGES [...] as of this encounter Visit Diagnoses Diagnosis Mild nonproliferative diabetic retinopathy of both eyes without macular edema associated with type 2 diabetes mellitus (HCC)- Primary Diabetic eye exam (HCC) Type II or unspecified type diabetes mellitus without mention of complication, not stated as uncontrolled Combined forms of age-related cataract of both eyes Other and combined forms of senile cataract Dry eyes, bilateral Tear film insufficiency, unspecified Visual distortions of shape and size documented in this encounter Advance Directives Documents on File Type Date Recorded Patient Electronic Video Games Servicer Expl anation POL 10/20/2021 [place] [facility] FOR LIFE-SUSTAINING TREATMENT Latest Code Status on File Code Status Date Activated Date Inactivated Comments Full Code 03/30/2022 6:40 AM 03/30/2022 2:12 PM This order reflects the patients wishes and were consensually agreed upon. Question Answer Comments Discussion of Advance Directives occurred with: Patient Does the patient have a Living Will? No Does the patient have Health Care Power of Steelworker? No Care Teams Newspaper Inserter Relationship Specialty Start Date End Date Chris Asencio DO [address] [place] [address] PCP - General Family Medicine 01/07/18 documented as of this encounter
--- OUTSIDE RECORDS SUMMARY | 2023-06-20 00:38 | External Medical Summary | Summary of Care ---
Author Name Unknown Organization [facility] Address [address] [place] [address] Phone [phone] Care Team Providers Care Water Softener Installer Name Role Phone Chris Asencio DO Primary Care Provider Encounter Details Date Type Department Care Team Description 03/05/2023 Office Visit Family Practice [facility] [address] [place] [address] Chris Asencio DO [address] [place] [address] Moderate persistent asthma without complication*; Acute cough; Acute bilateral thoracic back pain; Type 2 diabetes mellitus with stage 3b chronic kidney disease, with long-term current use of insulin (HCC); Type II diabetes mellitus with neurological manifestations (HCC); Lump in neck Allergies Active Allergy Reactions Severity Noted Date [...] 1 Each 5 1 Active Dexcom G6 Railroad Baggage Porter DeviceIndications:Ty pe 2 diabetes mellitus with stage [...] 3 Active Additional Information Patient taking differently:2 [place] Each NostrilBID (.AM/PM), Reported on 12/24/2022 Famotidine [...] bedtime. 90 Tablet 3 3 Active Methscopolamine [place] 2.5 MG Oral TabletIndications:Ir ritable bowel syndrome [...] mellitus with hemoglobin A1c goal of 7.0%-8.0% ([facility]),Type 2 diabetes mellitus with stage 3a chronic kidney disease, with long-term current use of insulin ([facility]),Type II diabetes mellitus with neurological manifestations ([facility]) INJECT UNDER THE SKIN 50 UNITS 2 [...] long-term current use of insulin ([facility]) Inject 0.5 mg under the skin once a week. 9 mL 3 3 Active predniSONE 20 MG Oral Tablet (Deltasone)Indicatio ns:Type 2 diabetes mellitus with stage 3b chronic kidney disease, with long-term current use of insulin ([facility]) Take 2 Tablets by mouth in the morning for 5 days. 10 Tablet 0 3 03/10/20 23 Active Ozempic (0.25 or 0.5 MG/DOSE) 2 [...] 018 Overview: Signed 06/04/2014 Pranav Sanchez MD [facility] [place] Spinal pain 06/04/2014 02/02/2017 Type 2 diabetes [...] mRNA, LNP-s, No Pre serve, 2-Dose Series (Heavy) 09/09/2020,08/19/2020 Pneumococcal Conjugate Vacc, 13 Valent (Prevnar) [...] Sign Reading Time Taken Comments Blood Pressure 110/60 03/05/2023 3:32 PM EDT Pulse 70 03/05/2023 3:32 PM EDT Temperature 37 C (98.6 F) 03/05/2023 3:32 PM EDT Respiratory Rate - - Oxygen Saturation - - Inhaled Oxygen Concentration - - Weight - - Height - - Body Mass Index - - documented in this encounter Progress Notes * Chris Asencio, DO - 03/05/2023 3:26 PM EDT Images from the original note were not included. Assessment and Plan Moderate persistent asthma without complication Acute asthma flare Without hypoxia Lung exam normal Will give a few days of prednisone Followed by her home regimen Return if not improving Acute cough Acute bilateral thoracic back pain Type 2 diabetes mellitus with stage 3b chronic kidney disease, with long-term current use of insulin (HCC) - Ozempic (0.25 or 0.5 MG/DOSE) 2 MG/3ML Solution Pen-injector (Semaglutide(0.25 or 0.5MG/DOS)); Inject 0.5 mg under the skin once a week. - predniSONE 20 MG Oral Tablet (Deltasone); Take 2 Tablets by mouth in the morning for 5 days. Type II diabetes mellitus with neurological manifestations (HCC) Lump in neck - US HEAD AND NECK; Future History of Present Illness Liane Alejandre is a 72 year old female that presents for No chief complaint on file. Presents for acute visit today For cough/asthma flare For a few days Some mild cough, no fever No increase in sputum production Compliant with meds But feels that inhalers aren't helping as much Physical Exam Vitals: 03/05/23 1532 Temp: 37 C (98.6 F) Pulse: 70 BP: 110/60 Physical Exam Constitutional: Appearance: Normal appearance. HENT: Head: Normocephalic and atraumatic. Eyes: Extraocular Movements: Extraocular movements intact. Pupils: Pupils are equal, round, and reactive to light. Neurological: General: No focal deficit present. Mental Status: She is alert and oriented to person, place, and time. Psychiatric: Mood and Affect: Mood normal. Behavior: Behavior normal. Wrap-Up Follow Up: Return in about 6 months (around 09/04/2023). Time: Total time today was 28 minutes excluding any time spent in the performance of separately billed services. documented in this encounter Plan of Treatment Upcoming Encounters Date Type Specialty Care Team Description 03/12/2023 Imaging Radiology 03/19/2023 Telemedicine [facility] Em Zuluaga CRNP [address] [place] [address] [place], [facility] [address] [place] [address] 04/09/2023 Office Visit Family Medicine Chris Asencio DO [address] [place] [address] 04/11/2023 Office Visit Gastroenterology Geovanna Bahena CRNP [address] [place] [address] 04/16/2023 Home Visit [facility] Penny Parikh RN [address] [place] [address] 04/24/2023 Office Visit [facility] Amira [address] [place] [address] 05/06/2023 Office Visit Nephrology Eric Day MD [address] [facility] [place] [address] 05/09/2023 Office Visit Family Medicine Chris Asencio DO [address] [place] [address] 05/28/2023 Laboratory Laboratory [address] [address] 06/03/2023 Office Visit Hematology Oncology Henok Stauffer MD [address] [place], [place] [address] 06/11/2023 Office Visit Cardiology Sophy Sands PA-C [address] [place] [address] 07/05/2023 Office Visit Gastroenterology Iris Cerrato PA-C [address] [place] [address] 08/08/2023 Office Visit Family Medicine Taty Tobar CRNP [address] [place] [address] 10/03/2023 Office Visit Family Medicine Chris Asencio DO [address] [place] [address] 11/07/2023 Office Visit Family Medicine Chris Asencio DO [address] [place] [address] 02/06/2024 Office Visit Family Medicine Taty Tobar CRNP [address] [place] [address] 02/28/2024 Imaging Radiology 03/05/2024 Office Visit Ophthalmology Ernie Rivers, DO [address] [place] [id number] Scheduled Orders Name Type Priority Associated Diagnoses Orde r Schedule US HEAD AND NECK Medical Imaging Routine Lump in neck Expected: 03/05/2023, Expires: 04/05/2024 Scheduled Procedures Name Priority Associated Diagnoses Date/Ti [...] Screening 10/13/2023 10/12/2022 CKD PHOS USE SMARTSET 54709 01/11/202412/25, 09/06/2022, 03/01/2022, Additional history exists Albumin/Creatinine Ratio 01/25/2024 023, 09/06/2022, 11/24/2021, Additional history exists CKD HGB USE SMARTSET 86547 01/25/202401/24, 01/24/2023, 01/10/2023, Additional history exists DIABETES-EYE [...] as of this encounter Visit Diagnoses Diagnosis Moderate persistent asthma without complication- Primary Unspecified asthma Acute cough Acute bilateral thoracic back pain Type 2 diabetes mellitus with stage 3b chronic kidney disease, with long-term current use of insulin (HCC) Type II diabetes mellitus with neurological manifestations (HCC) Type II or unspecified type diabetes mellitus with neurological manifestations, not stated as uncontrolled Lump in neck Swelling, mass, or lump in head and neck documented in this encounter Advance Directives Documents on File Type Date Recorded Patient 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 Question Answer Comments Discussion of Advance Directives occurred with: Patient Does the patient have a Living Will? No Does the patient have Health Care Power of Pigs Feet Finisher? No Care Teams Water Softener Installer Relationship Specialty Start Date End Date Chris Asencio DO [address] [place] [address] PCP - General Family Medicine 01/07/18 documented as of this encounter
--- OUTSIDE RECORDS SUMMARY | 2023-06-20 00:38 | External Medical Summary | Summary of Care ---
Author Name Unknown Organization [facility] Address [address] [place] [address] Phone [phone] Care Team Providers Care Bit Sharpener Name Role Phone Jessica Asencio DO Primary Care Provider Reason for Visit * Reason Comments eRx-Medication Refill Encounter Details Date Type Department Care Team Description 02/12/2023 Refill Pharmacy, [facility] [address] [place] [address] Jessica Asencio DO [address] [place] [address] Type 2 diabetes mellitus with hemoglobin A1c goal of 7.0%-8.0% ([facility]); Type 2 diabetes mellitus with stage 3a chronic kidney disease, with long-term current use of insulin ([facility]); Type II diabetes mellitus with neurological manifestations ([facility]) Allergies Active Allergy Reactions Severity Noted Date [...] as of this encounter (statuses as of 02/12/2023) Medications Medication Sig Dispensed Refills Start Date [...] 1 Capsule by mouth at bedtime. 0 1 Active [...] 1 Each 5 1 Active Dexcom G6 Real Time Analyst DeviceIndications:T ype 2 diabetes mellitus with stage [...] 3 Active Additional Information Patient taking differently:2 [place] Each NostrilBID (.AM/PM), Reported on 12/24/2022 Famotidine [...] 02/01/2023 EpiPen 2-Ronni 0.3 MG/0.3ML Injection Solution Auto-injectorIndica [...] the morning. 90 Tablet 3 3 Active Additional Information Patient not taking.Reason: on hold 12/27 for hypotension, Reported on 12/27/2022 Prochlorperazine Maleate 10 MG Oral Tablet (Compazine)Indicati [...] bedtime. 90 Tablet 3 3 Active Methscopolamine [place] 2.5 MG Oral TabletIndications:I rritable bowel syndrome with diarrhea TAKE 1 TAB UP TO 3 TIMES DAILY NEEDED FOR ABDOMINAL CRAMPS & DIARRHEA, 270 Tablet 1 3 Active OneTouch Verio In Vitro Strip (Glucose Blood)Indications:T ype II diabetes mellitus with neurological manifestations (HCC) USE UP TO 4 TIMES A DAY DIRECTED 100 Strip 11 3 Active Furosemide 40 MG Oral Tablet (Lasix)Indications: HTN, goal below 140/90,Venous insufficiency Take 1 Tablet [...] weight gain. 180 Tablet 11 3 Active Semaglutide 7 MG Oral Tablet (Rybelsus)Indicatio ns:Type 2 diabetes mellitus with stage 3b chronic kidney disease, with long-term current use of insulin (HCC) Take 7 mg by mouth daily first thing in the morning. 90 Tablet 3 3 Active Vitamin C 500 MG Oral Capsule Take 1 Capsule by mouth in the morning. 0 Active Ferrous Gluconate 240 (27 Fe) MG Oral Tablet (Ferate) Take 1 Tablet by mouth in the morning. 0 Active Toujeo SoloStar 300 UNIT/ML Subcutaneous Solution Pen-injector (Insulin Glargine (1 Unit Dial))Indications:T ype 2 diabetes mellitus with hemoglobin A1c goal of 7.0%-8.0% (HCC),Type 2 diabetes mellitus with stage 3a chronic kidney disease, with long-term current use of insulin (HCC),Type II diabetes mellitus with neurological manifestations (HCC) INJECT UNDER THE SKIN 50 UNITS 2 TIMES A DAY . 13.5 mL 5 3 Active NovoLOG FlexPen 100 UNIT/ML Subcutaneous Solution Pen-injector (insulin aspart)Indications: Not taking INJECT 25 UNITS UNDER THE SKIN 3 TIMES A DAY. 75 Each 3 3 Active Toujeo SoloStar 300 UNIT/ML Subcutaneous Solution Pen-injector (Insulin Glargine (1 Unit Dial))Indications:T ype 2 diabetes mellitus with hemoglobin A1c goal of 7.0%-8.0% (HCC),Type 2 diabetes mellitus with stage 3a chronic kidney disease, with long-term current use of insulin (HCC),Type II diabetes mellitus with neurological manifestations (HCC) Inject 20 Units under the skin in the morning. 15 mL 5 3 023 Discontinued Hospital, Clinic, or Other Facility Administered Medication Ordered Dose Route Frequency Start Date End Date Status albuterol sulfate (PROVENTIL) (2.5 MG/3ML) 0.083% inhalation solution 2.5 mgIndications:Moderate persistent asthma without complication 2.5 mg NEBULIZER Q4H PRN 08/13/2018 Active documented as of this encounter (statuses as of 02/12/2023) Active Problems Patient Care Coordination No te [...] as of this encounter (statuses as of 02/12/2023) Resolved Problems Problem Noted Date Resolved Date [...] Agonist (ex: Victoza, Trulicity, Ozempic) o Other: toufrederick DM Secondary Prevention o CLARITA Inhibitor / [...] 018 Overview: Signed 06/04/2014 Pranav Sanchez MD [facility] [place] Spinal pain 06/04/2014 02/02/2017 Type 2 diabetes [...] as of this encounter (statuses as of 02/12/2023) Immunizations Name Administration Dates Next Due COVID-19 [...] Telephone Encounter - Jessica Asencio DO - 02/12/2023 2:48 PM EDTSigned Prescriptions: Disp Refills Toujeo SoloStar 300 UNIT/ML Subcutaneous S*13.5 mL5 Sig: INJECT UNDER THE SKIN 50 UNITS 2 TIMES A DAY . Authorizing Provider: JESSICA ASENCIO NovoLOG FlexPen 100 UNIT/ML Subcutaneous S*75 Each3 Sig: INJECT 25 UNITS UNDER THE SKIN 3 TIMES A DAY. Authorizing Provider: JESSICA ASENCIO * Telephone Encounter - Krissy Reza LPN - 02/12/2023 12:08 PM EDTPending Prescriptions: Disp Refills Toujeo SoloStar 300 UNIT/ML Subcutaneous S*13.5 mL5 Sig: INJECT UNDER THE SKIN 50 UNITS 2 TIMES A DAY . NovoLOG FlexPen 100 UNIT/ML Subcutaneous S*75 Each3 Sig: INJECT 25 UNITS UNDER THE SKIN 3 TIMES A DAY. * Telephone Encounter - Krissy Reza LPN - 02/12/2023 12:04 PM EDT Did you pend patient's preferred pharmacy and medication before forwarding?yes Pharmacy: [id number] [address] [facility] Pending Prescriptions: Disp Refills Toujeo SoloStar 300 UNIT/ML Subcutaneous *13.5 mL5 Sig: INJECT UNDER THE SKIN 50 UNITS 2 TIMES A DAY . NovoLOG FlexPen 100 UNIT/ML Subcutaneous *75 Each3 Sig: INJECT 25 UNITS UNDER THE SKIN 3 TIMES A DAY. Last Visit: 10/24/2022 (in office), Visit date not found (telemedicine) Next Visit: 04/24/2023 If no future appointments scheduled, and last appointment is greater than a year ago, please schedule patient for a follow-up appointment Last date the medication was ordered: 06/20/22 Is this request for a controlled substance?No [...] Encounters Date Type Specialty Care Team Description 02/21/2023 Office Visit Gastroenterology Iris Cerrato PA-C [address] [place] [address] 02/21/2023 Office Visit Ophthalmology Ernie Rivers DO [facility] [place] [address] 02/26/2023 Imaging Radiology 02/26/2023 Imaging Radiology 03/01/2023 Home Visit [facility] Penny Parikh RN [address] [place] [address] 03/19/2023 Telemedicine [facility] Em Zuluaga CRNP [address] [place] [address] [place], [address] [place] [address] 04/09/2023 Office Visit Family Medicine Jessica Asencio DO [address] [place] [address] 04/11/2023 Office Visit Gastroenterology Geovanna Bahena CRNP [address] [place] [address] 04/24/2023 Office Visit Janet Hare [address] [place] [address] 05/06/2023 Office Visit Nephrology Eric Day MD [address] [facility] [place], [place] [address] 05/09/2023 Office Visit Family Medicine Jessica Asencio DO [address] [place] [address] 05/28/2023 Laboratory Laboratory [address] [address] 06/03/2023 Office Visit Hematology Oncology Henok Stauffer MD [address] [facility] [place] [address] 06/11/2023 Office Visit Cardiology Sophy Sands PA-C [address] [place] [address] 08/08/2023 Office Visit Family Medicine Taty Tobar CRNP [address] [place] [address] 11/07/2023 Office Visit Family Medicine Jessica Asencio DO [address] [place] [address] 02/06/2024 Office Visit Family Medicine Taty Tobar CRNP [address] [place] [address] Scheduled Procedures Name Priority Associated Diagnoses Date/Ti [...] 07/25/2023 01/24/2023, 08/25, 08/10/2022, Additional history exists DIABETES-EYE EXAM 08/10/2023 08/09/2022, , 04/13/2021, Additional history exists Depression Screening 10/13/2023 10/12/2022 CKD PHOS USE SMARTSET 65492 01/11/202412/25, 09/06/2022, 03/01/2022, Additional history exists Albumin/Creatinine Ratio 01/25/2024 023, 09/06/2022, 11/24/2021, Additional history exists CKD HGB USE SMARTSET 10178 01/25/202401/24, 01/24/2023, 01/10/2023, Additional history exists COLONOSCOPY-EVERY 5 YRS [...] mellitus with hemoglobin A1c goal of 7.0%-8.0% (HCC) Type 2 diabetes mellitus with stage 3a chronic kidney disease, with long-term current use of insulin (HCC) Type II diabetes mellitus with neurological manifestations (HCC) Type II or unspecified type diabetes mellitus with neurological manifestations, not stated as uncontrolled documented in this encounter Advance Directives Documents on File Type Date Recorded Patient Chain Hoist Operator Expl anation POLST 10/20/2021 [place] [facility] FOR [facility]-SUSTAINING [...] the patient have Health Care Power of Swatch Maker? No Care Teams Bit Sharpener Relationship Specialty Start Date End Date Jessica Asencio DO [address] [place] [address] PCP - General Family Medicine 01/07/18 documented as of this encounter
--- OUTSIDE RECORDS SUMMARY | 2023-06-20 00:38 | External Medical Summary | Summary of Care ---
Author Name Unknown Organization [facility] Address [address] [place] [address] Phone [phone] Care Team Providers Care Tube Cleaning Operator Name Role Phone Chris Asencio DO Primary Care Provider Reason for Visit * Reason Onset Date Comments Other 02/12/2023 Rybelsus Medication Problem 02/12/2023 Patient has r magdy due to medication /would like a change Encounter Details Date Type Department Care Team Description 02/12/2023 Telephone Family Practice [facility] [address] [place] [address] Chris Asencio DO [address] [place] [address] Other (Rybelsus); Medication Problem (Bety... Allergies Active Allergy Reactions Severity Noted Date [...] as of this encounter (statuses as of 02/13/2023) Medications Medication Sig Dispensed Refills Start Date [...] 1 Each 5 1 Active Dexcom G6 Loan Workout Officer DeviceIndications:T ype 2 diabetes mellitus with stage [...] 3 Active Additional Information Patient taking differently:2 [place] Each NostrilBID (.AM/PM), Reported on 12/24/2022 Famotidine [...] bedtime. 90 Tablet 3 3 Active Methscopolamine [place] 2.5 MG Oral TabletIndications:I rritable bowel syndrome with diarrhea TAKE 1 TAB UP TO 3 TIMES DAILY NEEDED FOR ABDOMINAL CRAMPS & DIARRHEA, 270 Tablet 1 3 Active OneTouch Verio In Vitro Strip (Glucose Blood)Indications:T ype II diabetes mellitus with neurological manifestations (HCC) USE UP TO 4 TIMES A DAY DIRECTED 100 Strip 11 07/05/202 3 Active Furosemide 40 MG Oral Tablet [...] fluid accumulation or weight gain. 180 Tablet 3 Active Vitamin C 500 MG Oral Capsule Take 1 Capsule by mouth in the morning. 0 Active Ferrous Gluconate 240 (27 Fe) MG Oral Tablet (Ferate) Take 1 Tablet by mouth in the morning. 0 Active Toujeo SoloStar 300 UNIT/ML Subcutaneous Solution Pen-injector (Insulin Glargine (1 Unit Dial))Indications:T ype 2 diabetes mellitus with hemoglobin A1c goal of 7.0%-8.0% ([facility]),Type 2 diabetes mellitus with stage 3a chronic kidney disease, with long-term current use of insulin ([facility]),Type II diabetes mellitus with neurological manifestations ([facility]) INJECT UNDER THE SKIN 50 UNITS 2 TIMES A DAY . 13.5 mL 3 Active NovoLOG FlexPen 100 UNIT/ML Subcutaneous Solution Pen-injector (insulin aspart)Indications: Not taking INJECT 25 UNITS UNDER THE SKIN 3 TIMES A DAY. 75 Each 3 3 Active Ozempic (0.25 or 0.5 MG/DOSE) 2 MG/3ML Solution Pen-injector (Semaglutide(0.25 or 0.5MG/DOS))Indicati ons:Type 2 diabetes mellitus with stage 3b chronic kidney disease, with long-term current use of insulin ([facility]) Inject 0.5 mg under the skin once a week. 9 mL 3 3 Active Semaglutide 7 MG Oral Tablet (Rybelsus)Indicatio ns:Type 2 diabetes mellitus with stage 3b chronic kidney disease, with long-term current use of insulin ([facility]) Take 7 mg by mouth daily first thing in the morning. 90 Tablet 3 3 023 Discontinued Hospital, Clinic, or Other Facility Administered Medication Ordered Dose Route Frequency Start Date End Date Status albuterol sulfate (PROVENTIL) (2.5 MG/3ML) 0.083% inhalation solution 2.5 mgIndications:Moderate persistent asthma without complication 2.5 mg NEBULIZER Q4H PRN 08/13/2018 Active documented as of this encounter (statuses as of 02/13/2023) Active Problems Patient Care Coordination No te [...] as of this encounter (statuses as of 02/13/2023) Resolved Problems Problem Noted Date Resolved Date [...] Sanchez MD [facility] [place] Spinal pain 06/04/2014 02/02/2017 Type 2 diabetes [...] as of this encounter (statuses as of 02/13/2023) Immunizations Name Administration Dates Next Due COVID-19 [...] encounter Miscellaneous Notes * Telephone Encounter - Moncho Cabral [facility] - 02/13/2023 4:26 PM EDT Patient Phone Numbers Called to relay message to patient that Ozempic already called in by PCP. No answer, left VM. Moncho Cabral, PharmD, [facility] Foot Cutter Clinical Pharmacist 02/13/2023, 4:27 PM * Telephone Encounter - KATERIN Stewart - 02/12/2023 3:36 PM EDT Patient calling in to check on the status of previous message. Relayed message below * Telephone Encounter - Chris Asencio DO - 02/12/2023 3:30 PM EDT Placed order for ozempic 0.5mg * Telephone Encounter - KATERIN Marin - 02/12/2023 3:25 PM EDT Patient calling back to check on status of previous message , * Telephone Encounter - Carmen Elmore [facility] - 02/12/2023 11:06 AM EDT Pt calling regarding Rybelsus. Pt stated she is itchy and has red bumps. She is using hydrocortisone cream and went through a whole tube. Stated she knows it's from the Rybelsus, did not have before she started the medication. Pt stated the medication is also not working for her. Her BS are not controlled, running high 200-250. Pt was previously on Ozempic and appears was switched due to diarrhea but pt stated she was in the hospital and the diarrhea was due to a stomach infection. She stated the diarrhea stopped. Pt askingto be switched back to Ozempic. Pt stated she has appt with [facility] but not until March. Stated she spoke with Kate and was told she can go back on Ozempic 0.5 mg. Advised Kate is out of office but will route for follow up if needed. Please review and send new rx for Ozempic if appropriate for pt. Thanks, Carmen Elmore, PharmD Clinical Pharmacist [facility] ([email or web address]) [phone] 02/12/2023 11:15 AM * Telephone Encounter - Keeley Bertrand CPhT - 02/12/2023 11:02 AM EDT Patient calling into with medication questions regarding, Rybelsus. Warm transferred to [facility]. Thank you, Keeley Bertrand Recoating Machine Operator [employer] 02/12/2023, 11:04 AM documented in this encounter Plan of Treatment Upcoming Encounters Date Type Specialty Care Team Description 02/21/2023 Office Visit Gastroenterology Iris Cerrato PA-C [address] [place] [address] 02/21/2023 Office Visit Ophthalmology Ernie Rivers DO [address] [place] [address] 02/26/2023 Imaging Radiology 02/26/2023 Imaging Radiology 03/01/2023 Home Visit [facility] Penny Parikh RN [address] [place] [address] 03/19/2023 Telemedicine [facility] Em Zuluaga CRNP [address] [place] [address] [place] [address] [place] [address] 04/09/2023 Office Visit Family Medicine Chris Asencio DO [address] [place] [address] 04/11/2023 Office Visit Gastroenterology Geovanna Bahena CRNP [address] [place] [address] 04/24/2023 Office Visit Pharmacy [facility] [address] [place] [address] 05/06/2023 Office Visit Nephrology Eric Day MD [address] [facility] [place], [place] [address] 05/09/2023 Office Visit Family Medicine Chris Asencio DO [address] [place] [address] 05/28/2023 Laboratory Laboratory [facility] Laboratory [facility] [place] [facility] [place] [address] 06/03/2023 Office Visit Hematology Oncology Henok Stauffer MD [address] [facility] [place] [address] 06/11/2023 Office Visit Cardiology Sophy Sands PA-C [address] [place] [address] 08/08/2023 Office Visit Family Medicine Taty Tobar CRNP [address] [place] [address] 11/07/2023 Office Visit Family Medicine Chris Asencio DO [address] [place] [address] 02/06/2024 Office Visit Family Medicine Taty Tobar CRNP [address] [place] [address] Scheduled Procedures Name Priority Associated Diagnoses Date/Ti me COLONOSCOPY FLEXIBLE PROXIMA L DIAGNOSTIC Recall Family history of colon cancer Health Maintenance Due Date Last Done Comments Zoster Vaccines (2 of 3) 05/07/2013 03/12/2013 COVID-19 Vaccine (3 - Pfizer series) 11/04/2020 09/09/2020, 08/19/2020 Diabetic Foot Exam 05/23/2021 05/23/2020, 1 06/06/2018, 06/05/2018, Additional history exists Mammogram 01/17/2023 01/17/2022, 08/0 01/2022, 06/09/2019, Additional history exists GFR 07/25/2023 01/24/2023, 12/25, 01/03/2023, Additional history exists HbA1c 07/25/2023 01/24/2023, 08/25, 08/10/2022, Additional history exists DIABETES-EYE EXAM 08/10/2023 08/09/2022, , 04/13/2021, Additional history exists Depression Screening 10/13/2023 10/12/2022 CKD PHOS USE SMARTSET 99805 01/11/202412/25, 09/06/2022, 03/01/2022, Additional history exists Albumin/Creatinine Ratio 01/25/2024 023, 09/06/2022, 11/24/2021, Additional history exists CKD HGB USE SMARTSET 05767 01/25/202401/24, 01/24/2023, 01/10/2023, Additional history exists COLONOSCOPY-EVERY [...] Documents on File Type Date Recorded Patient Quality Assurance Supervisor Trim Expl anation POLST 10/20/2021 [place] [facility] FOR LIFE-SUSTAINING TREATMENT Latest Code Status on File Code Status Date Activated Date Inactivated Comments Full Code 03/30/2022 6:40 AM 03/30/2022 2:12 PM This order reflects the patients wishes and were consensually agreed upon. Question Answer Comments Discussion of Advance Directives occurred with: Patient Does the patient have a Living Will? No Does the patient have Health Care Power of Pediatric Care Coordinator? No Care Teams Tube Cleaning Operator Relationship Specialty Start Date End Date Chris Asencio DO [address] [place] [address] PCP - General Family Medicine 01/07/18 documented as of this encounter
--- OUTSIDE RECORDS SUMMARY | 2023-06-20 00:39 | External Medical Summary | Summary of Care ---
Author Name Unknown Organization [facility] Address [address] [place] [address] Phone [phone] Care Team Providers Care Tight Barrel Inspector Name Role Phone AsencioJoeChrismelissa Fabiananay Primary Care Provider Reason for Visit * Reason Comments [facility]: Maintenance Encounter Details Date Type Department Care Team Description 02/01/2023 Home Visit [facility], [facility] [address] [facility] [place] [address] Penny Parikh RN [address] [facility] [place] [address] Allergies Active Allergy Reactions Severity Noted Date [...] as of this encounter (statuses as of 02/01/2023) Medications Medication Sig Dispensed Refills Start Date [...] 1 Each 5 1 Active Dexcom G6 White Shoe Ragger DeviceIndications:Ty pe 2 diabetes mellitus with stage [...] nephropathy, with long-term current use of insulin ([facility]) CHEW 1 TABLET BY MOUTH EVERY DAY [...] THE MORNING 90 Tablet 3 2 Active Toujeo SoloStar 300 UNIT/ML Subcutaneous Solution Pen-injector (Insulin Glargine (1 Unit Dial))Indications:Ty pe 2 diabetes mellitus with hemoglobin A1c goal of 7.0%-8.0% ([facility]),Type 2 diabetes mellitus with stage 3a chronic kidney disease, with long-term current use of insulin ([facility]),Type II diabetes mellitus with neurological manifestations ([facility]) Inject 20 Units under the skin in the morning. 15 mL 5 3 Active Montelukast Sodium 10 MG Oral Tablet (Singulair) TAKE 1 TABLET BY MOUTH EVERY DAY 90 Tablet 2 3 Active Fluticasone Propionate 50 MCG/ACT Nasal Suspension (Flonase)Indications :LRTI (lower respiratory tract infection),Moderate persistent asthma with acute exacerbation,Acute URI ADMINISTER INTO EACH NOSTRIL 2 SPRAYS IN THE MORNING. 48 mL 2 3 Active Additional Information Patient taking differently:2 [place] Each NostrilBID (.AM/PM), Reported on 12/24/2022 Famotidine [...] 12/27/2022 Prochlorperazine Maleate 10 MG Oral Tablet (Compazine)Indicatio [...] bedtime. 90 Tablet 3 3 Active Methscopolamine [place] 2.5 MG Oral TabletIndications:Ir ritable bowel syndrome [...] 3 Active Semaglutide 7 MG Oral Tablet (Rybelsus)Indication s:Type 2 diabetes mellitus with stage 3b [...] by mouth in the morning. 0 Active Triamcinolone Acetonide 0.1 % External Cream (Aristocort)Indicati ons:Rash and nonspecific skin eruption APPLY TO RASH ON BODY NIGHTLY NEEDED 30 g 0 3 02/02/20 23 Discontinu ed(Medicat ion List Clean Up) Hospital, Clinic, or Other Facility Administered Medication Ordered Dose Route Frequency Start Date End Date Status albuterol sulfate (PROVENTIL) (2.5 MG/3ML) 0.083% inhalation solution 2.5 mgIndications:Moderate persistent asthma without complication 2.5 mg NEBULIZER Q4H PRN 08/13/2018 Active documented as of this encounter (statuses as of 02/01/2023) Active Problems Patient Care Coordination No te [...] as of this encounter (statuses as of 02/01/2023) Resolved Problems Problem Noted Date Resolved Date [...] 018 Overview: Signed 06/04/2014 Pranav Sanchez MD [facility] [place] Spinal pain 06/04/2014 02/02/2017 Type 2 diabetes [...] as of this encounter (statuses as of 02/01/2023) Immunizations Name Administration Dates Next Due COVID-19 mRNA, LNP-s, No Pre serve, 2-Dose Series ([employer]) 09/09/2020,08/19/2020 Pneumococcal Conjugate Vacc, 13 Valent (Prevnar) [...] Sign Reading Time Taken Comments Blood Pressure 132/76 02/01/2023 2:22 PM EDT Pulse 70 02/01/2023 2:22 PM EDT Temperature 36.1 C (97 F) 02/01/2023 2:22 PM EDT Respiratory Rate 18 02/01/2023 2:22 PM EDT Oxygen Saturation 97% 02/01/2023 2:22 PM EDT Inhaled Oxygen Concentration - - Weight - - Height - - Body Mass Index - - documented in this encounter Progress Notes * Penny Parikh, RN - 02/01/2023 2:07 PM EDT [facility] Preforming Machine Operator Visit Date: 02/01/2023 Time: 2:07 PM Name: Liane Alejandre : 1950 Current Concerns: Pt seen for return RNCM visit Saw heme/onc for anemia of chronic disease - had labs done - plan is to go back in 4 months with repeat lab work Pt reports she started taking Ferate 27mg again because she is not getting iron infusions at this time She is also going to get Vitamin C to take with it for absorption and to help with UTI prevention Uses Dexcom G6 sensor and per device, average reading for past week was 156 Per dexcom, readings have been 77% within range Average for 14 days is 161 Pt inquiring about getting RSV vaccine - Will send TE to PCP in regards to this as not given by [facility] - states she can go to [facility] to have it done but will need order sent there. Physical Exam: BP 132/76 | Pulse 70 | Temp 36.1 C (97 F) | Resp 18 | SpO2 97% Pain 0 Physical Exam Constitutional: General: She [...] No change in living situation Denies falls [facility]-10 Completed this Visit: No. Routine visit and No falls since last visit Advanced Care Planning: POLST. In chart but pt cannot find her copy - new POLST provided and pt will fill out Patient's Goals of Care: To be able to work in garden To be able to be useful to others Reinforcement/Education: Educated on [...] nephrology Home Interventions Provided: Home Intervention: Other; Millaal Consulted PCP/Specialist Reinforced current Plan of Care, including self-management and medication regimen Patient's 'Red Flags': N/V/D Decreased urine output Unable to get out of bed Patient Needs to Remember: Call [facility] at with any new or worsening health [...] visits & schedule home visit with care hourly team members(s)as indicated. Provider is in agreement with Plan of Care: Yes Scheduled to follow up with patient in one month. Penny Parikh RN 02/01/2023 2:07 PM documented in this encounter Plan of Treatment Upcoming Encounters Date Type Specialty Care Team Description 02/21/2023 Office Visit Gastroenterology Iris Cerrato PA-C [address] [place] [address] 02/21/2023 Office Visit Ophthalmology Ernie Rivers, DO [address] [place] [address] 02/26/2023 Imaging Radiology 02/26/2023 Imaging Radiology 03/01/2023 Home Visit [facility] Penny Parikh RN [address] [place] [address] 03/19/2023 Telemedicine [facility] Em Zuluaga CRNP [address] [place] [address] [place], [address] [place] [address] 04/09/2023 Office Visit Family Medicine Chris Asencio DO [address] [place] [address] 04/11/2023 Office Visit Gastroenterology Geovanna Bahena CRNP [address] [place] [address] 04/24/2023 Office Visit Pharmacy [facility] [address] [place] [address] 05/06/2023 Office Visit Nephrology Eric Day MD [address] [place] [address] 05/09/2023 Office Visit Family [facility] Chris Asencio DO [address] [place] [address] 05/28/2023 Laboratory Laboratory [place], [address] [address] 06/03/2023 Office Visit Hematology Oncology Henok Stauffer MD [address] [place] [address] 06/11/2023 Office Visit Cardiology Sophy Sands PA-C [address] [place] [address] 08/08/2023 Office Visit Family Medicine Taty Tobar CRNP [address] [place] [address] 11/07/2023 Office Visit Family Medicine Chris Asencio DO [address] [place] [address] 02/06/2024 Office Visit Family Medicine Taty Tobar CRNP [address] [place] [address] Scheduled Procedures Name Priority Associated Diagnoses Date/Ti me COLONOSCOPY FLEXIBLE PROXIMA L DIAGNOSTIC Recall Family history of colon cancer Health Maintenance Due Date Last Done Comments Zoster Vaccines (2 of 3) 05/07/2013 03/12/2013 COVID-19 Vaccine (3 - Pfizer series) 11/04/2020 09/09/2020, 08/19/2020 Diabetic Foot Exam 05/23/2021 05/23/2020, 1 06/06/2018, 06/05/2018, Additional history exists Mammogram 01/17/2023 01/17/2022, 0801/2022, 06/09/2019, Additional history exists GFR 07/25/2023 01/24/2023, 12/25, 01/03/2023, Additional history exists HbA1c 07/25/2023 01/24/2023, 08/25, 08/10/2022, Additional history exists DIABETES-EYE EXAM 08/10/2023 08/09/2022, , 04/13/2021, Additional history exists Depression Screening 10/13/2023 10/12/2022 CKD PHOS USE SMARTSET 05188 01/11/202412/25, 09/06/2022, 03/01/2022, Additional history exists Albumin/Creatinine Ratio 01/25/2024 023, 09/06/2022, 11/24/2021, Additional history exists CKD HGB USE SMARTSET 30489 01/25/202401/24, 01/24/2023, 01/10/2023, Additional history exists COLONOSCOPY-EVERY [...] Documents on File Type Date Recorded Patient Chief Administrative Officer Expl anation POLST 10/20/2021 [place] OR [facility] FOR [...] the patient have Health Care Power of Education Department Chair? No Care Teams Tight Barrel Inspector Relationship Specialty Start Date End Date Chris Asencio DO [address] [place] [address] PCP - General Family Medicine 01/07/18 documented as of this encounter
--- OUTSIDE RECORDS SUMMARY | 2023-06-20 00:39 | External Medical Summary | Summary of Care ---
Author Name Unknown Organization [facility] Address [address] [place] [address] Phone [phone] Care Team Providers Care Tire Setter Name Role Phone Chris Asencio DO Primary Care Provider Reason for Visit * Reason Onset Date Comments Appointment 01/30/2023 Dr. Stauffer Encounter Details Date Type Department Care Team Description 01/30/2023 Telephone Hematology/Oncology [facility] [place] [address] [place] [address] Henok Stauffer MD [address] [place] [address] Appointment (Dr. Stauffer) Allergies Active Allergy Reactions Severity Noted Date [...] as of this encounter (statuses as of 01/30/2023) Medications Medication Sig Dispensed Refills Start Date [...] 1 Each 5 10/20/2020 Active Dexcom G6 Uniform Cap Operator DeviceIndications:Typ e 2 diabetes mellitus with [...] nephropathy, with long-term current use of insulin ([facility]) CHEW 1 TABLET BY MOUTH [...] THE MORNING 90 Tablet 3 04/04/2022 Active Toujeo SoloStar 300 UNIT/ML Subcutaneous Solution Pen-injector (Insulin Glargine (1 Unit Dial))Indications:Typ e 2 diabetes mellitus with hemoglobin A1c goal of 7.0%-8.0% ([facility]),Type 2 diabetes mellitus with stage 3a chronic kidney disease, with long-term current use of insulin ([facility]),Type II diabetes mellitus with neurological manifestations ([facility]) Inject 20 Units under the skin in the morning. 15 mL 5 06/20/2022 Active Montelukast Sodium 10 MG Oral Tablet (Singulair) TAKE 1 TABLET BY MOUTH EVERY DAY 90 Tablet 2 08/06/2022 Active Fluticasone Propionate 50 MCG/ACT Nasal Suspension (Flonase)Indications: LRTI (lower respiratory tract infection),Moderate persistent asthma with acute exacerbation,Acute URI ADMINISTER INTO EACH NOSTRIL 2 SPRAYS IN THE MORNING. 48 mL 2 08/06/2022 Active Additional Information Patient taking differently:2 [place] Each NostrilBID (.AM/PM), Reported on 12/24/2022 Famotidine [...] A DAY. 180 Tablet 2 08/30/2022 Active EpiPen 2-Ronni 0.3 MG/0.3ML Injection Solution [...] FOR NAUSEA 30 Tablet 0 09/06/2022 Active Diphenoxylate-Atropin e 2.5-0.025 MG Oral [...] bedtime. 90 Tablet 3 10/23/2022 Active Methscopolamine [place] 2.5 MG Oral TabletIndications:Irr itable bowel syndrome with diarrhea TAKE 1 TAB UP TO 3 TIMES DAILY NEEDED FOR ABDOMINAL CRAMPS & DIARRHEA, 270 Tablet 1 11/08/2022 Active Additional Information Patient not taking.Reported on 01/04/2023 [place] In Vitro Strip (Glucose Blood)Indications:Typ e II diabetes mellitus with neurological manifestations (HCC) USE UP TO 4 TIMES A DAY DIRECTED 100 Strip 11 11/28/2022 Active Triamcinolone Acetonide 0.1 % External Cream (Aristocort)Indicatio ns:Rash and nonspecific skin eruption APPLY TO RASH ON BODY NIGHTLY NEEDED 30 g 0 01/02/2023 Active Furosemide 40 MG Oral Tablet (Lasix)Indications:HT [...] weight gain. 180 Tablet 11 01/24/2023 Active Semaglutide 7 MG Oral Tablet (Rybelsus)Indications :Type 2 diabetes mellitus with stage 3b chronic kidney disease, with long-term current use of insulin (HCC) Take 7 mg by mouth daily first thing in the morning. 90 Tablet 3 01/24/2023 Active Hospital, Clinic, or Other Facility Administered Medication Ordered Dose Route Frequency Start Date End Date Status albuterol sulfate (PROVENTIL) (2.5 MG/3ML) 0.083% inhalation solution 2.5 mgIndications:Moderate persistent asthma without complication 2.5 mg NEBULIZER Q4H PRN 08/13/2018 Active documented as of this encounter (statuses as of 01/30/2023) Active Problems Patient Care Coordination No te [...] 07/10/2018 Type II diabetes mellitus with neurologi qiunn manifestations 06/05/2018 HTN, goal below 130/80 08/01/2015 Overview: Per HTN Protocol #27. Gastroesophageal reflux disease with eso phagitis without hemorrhage 01/16/2012 Last Assessment & Plan: protonix 40 mg BID Irritable bowel syndrome documented as of this encounter (statuses as of 01/30/2023) Resolved Problems Problem Noted Date Resolved Date [...] 018 Overview: Signed 06/04/2014 Pranav Sanchez MD [facility] Pharm[facility] [place] Spinal pain 06/04/2014 02/02/2017 Type 2 diabetes [...] as of this encounter (statuses as of 01/30/2023) Immunizations Name Administration Dates Next Due COVID-19 [...] Miscellaneous Notes * Telephone Encounter - KATERIN Benitez - 01/30/2023 11:57 AM EDT Mailed out patients appt earlier today for her 4 month follow up. * Telephone Encounter - KATERIN Garzon - 01/30/2023 11:51 AM EDT Pt called in stating that at her appt yesterday when leaving Dr. Stauffer said for her to schedule a f/u with labs in 4 months. There are no open appts with Dr. Stauffer in 4 months so she is asking if someone in the office can please give her a call to schedule with Dr. Stauffer and labs. She states either line will work for a call back documented in this encounter Plan of Treatment Upcoming Encounters Date Type Specialty Care Team Description 02/01/2023 Home Visit [facility] Penny Parikh RN [address] [place] [address] 02/21/2023 Office Visit Gastroenterology Iris Cerrato PA-C [address] [place] [address] 02/21/2023 Office Visit Ophthalmology Ernie Rivers, [address] [place] [address] 02/26/2023 Imaging Radiology 02/26/2023 Imaging Radiology 03/19/2023 Telemedicine [facility] Em Zuluaga CRNP [address] [place] [address] [place], [address] [place] [address] 04/09/2023 Office Visit Family Medicine Chris Asencio, [address] [place] [address] 04/11/2023 Office Visit Gastroenterology Geovanna Bahena CRNP [address] [place] [address] 04/24/2023 Office Visit [facility] [address] [place] [address] 05/06/2023 Office Visit Nephrology Eric Day MD [address] [place] [address] 05/09/2023 Office Visit Family Medicine Chris Asencio DO [address] [place] [address] 05/28/2023 Laboratory Laboratory [address] [address] 06/03/2023 Office Visit Hematology Oncology Henok Stauffer MD [address] [facility], [place] [address] 06/11/2023 Office Visit Cardiology Sophy Sands PA-C [address] [place] [address] 08/08/2023 Office Visit Family Medicine Taty Tobar CRNP [address] [place] [address] 11/07/2023 Office Visit Family Chris Myles DO [address] [place] [address] 02/06/2024 Office Visit Family Taty Beard CRNP [address] [place] [address] Scheduled Procedures Name Priority Associated Diagnoses Date/Ti [...] 08/09/2022, , 04/13/2021, Additional history exists Depression Screening, Annual for Pts 12 and Over 10/13/2023 10/12/2022 CKD PHOS USE SMARTSET 62212 01/11/202412/25, 09/06/2022, 03/01/2022, Additional history exists Albumin/Creatinine Ratio 01/25/2024 023, 09/06/2022, 11/24/2021, Additional history exists CKD HGB USE SMARTSET 27342 01/25/202401/24, 01/24/2023, 01/10/2023, Additional history exists COLONOSCOPY-EVERY [...] Documents on File Type Date Recorded Patient Dietetic Intern Expl anation POLST 10/20/2021 [place] [facility] [...] the patient have Health Care Power of Diesel Maintenance Electrician? No Care Teams Tire Setter Relationship Specialty Start Date End Date Chris Asencio DO [address] [place] [address] PCP - General Family Medicine 01/07/18 documented as of this encounter
--- OUTSIDE RECORDS SUMMARY | 2023-06-20 00:39 | External Medical Summary | Summary of Care ---
Author Name Unknown Organization [facility] Address [address] [place] [address] Phone [phone] Care Team Providers Care Hot Stick Man Name Role Phone Chris Asencio DO Primary Care Provider Reason for Visit * Reason Onset Date Comments Appointment 01/30/2023 Dr. Stauffer Encounter Details Date Type Department Care Team Description 01/30/2023 Telephone Hematology/Oncology [facility] [place] [address] [place] [address] Henok Stauffer MD [address] [place] [address] Appointment (Dr. Stauffer) Allergies Active Allergy Reactions [...] 1 Each 5 10/20/2020 Active Dexcom G6 Hand Shaper DeviceIndications:Typ e 2 diabetes mellitus with stage [...] long-term current use of insulin ([facility]) CHEW 1 TABLET BY MOUTH EVERY DAY [...] hemoglobin A1c goal of 7.0%-8.0% ([facility]),Type 2 diabetes mellitus with stage 3a chronic kidney disease, with long-term current use of insulin ([facility]),Type II diabetes mellitus with neurological manifestations ([facility]) Inject 20 Units under the skin in [...] 08/06/2022 Active Additional Information Patient taking differently:2 [place] Each NostrilBID (.AM/PM), Reported on 12/24/2022 Famotidine [...] bedtime. 90 Tablet 3 10/23/2022 Active Methscopolamine [place] 2.5 MG Oral TabletIndications:Irr itable bowel [...] 018 Overview: Signed 06/04/2014 Pranav Sanchez MD [facility] Pharm[facility] [place] Spinal pain 06/04/2014 02/02/2017 Type 2 diabetes [...] Parikh RN [address] [place] [address] 02/21/2023 Office Visit Gastroenterology Iris Cerrato PA-C [address] [place] [address] 02/21/2023 Office Visit Ophthalmology Ernie Rivers, [address] [place] [address] 02/26/2023 Imaging Radiology 02/26/2023 Imaging Radiology 03/19/2023 Telemedicine [facility] Em Zuluaga CRNP [address] [place] [address] [place], [address] [place] [address] 04/09/2023 Office Visit Family Medicine Chris Asencio, [address] [place] [address] 04/11/2023 Office Visit Gastroenterology Geovanna Bahena CRNP [address] [place] [address] 04/24/2023 Office Visit [facility] Amira [address] [place] [address] 05/06/2023 Office Visit Nephrology Eric Day MD [address] [facility] [place] [address] 05/09/2023 Office Visit Family Medicine Chris Asencio DO [address] [place] [address] 05/28/2023 Laboratory Laboratory [address] [address] 06/03/2023 Office Visit Hematology Oncology Henok Stauffer MD [address] [facility], [place] [address] 06/11/2023 Office Visit Cardiology Sophy Sands PA-C [address] [place] [address] 08/08/2023 Office Visit Family Medicine Taty Tobar CRNP [address] [place] [address] 11/07/2023 Office Visit Family Chris Myles DO [address] [place] [address] 02/06/2024 Office Visit Family Taty Beard CRNP [address] [place] [address] Scheduled Procedures Name Priority Associated Diagnoses Date/Ti [...] Over 10/13/2023 10/12/2022 CKD PHOS USE SMARTSET 06234 01/11/202412/25, 09/06/2022, 03/01/2022, Additional history exists Albumin/Creatinine Ratio 01/25/2024 023, 09/06/2022, 11/24/2021, Additional history exists CKD HGB USE SMARTSET 97511 01/25/202401/24, 01/24/2023, 01/10/2023, Additional history exists COLONOSCOPY-EVERY [...] Documents on File Type Date Recorded Patient Mime Artist Expl anation POLST 10/20/2021 [place] OR [facility] FOR LIFE-SUSTAINING TREATMENT Latest Code Status on File Code Status Date Activated Date Inactivated Comments Full Code 03/30/2022 6:40 AM 03/30/2022 2:12 PM This order reflects the patients wishes and were consensually agreed upon. Question Answer Comments Discussion of Advance Directives occurred with: Patient Does the patient have a Living Will? No Does the patient have Health Care Power of Dictating Machine Mechanic? No Care Teams Hot Stick Man Relationship Specialty Start Date End Date Chris Asencio DO [address] [place] [address] PCP - General Family Medicine 01/07/18 documented as of this encounter
--- OUTSIDE RECORDS SUMMARY | 2023-06-20 00:39 | External Medical Summary | Summary of Care ---
Author Name Unknown Organization [facility] Address [address] [place] [address] Phone [phone] Care Team Providers Care Director Business Integration Name Role Phone Nazia Asenciomarcos Fabiananay Primary Care Provider Reason for Visit * Reason Onset Date Comments [facility]: Maintenance 02/01/2023 Encounter Details Date Type Department Care Team Description 02/01/2023 Telephone [facility], [facility] [address] [facility] [address] Penny Parikh RN [address] [address] [facility]: Maintenance Allergies Active Allergy Reactions Severity Noted Date [...] as of this encounter (statuses as of 02/06/2023) Medications Medication Sig Dispensed Refills Start Date [...] 1 Each 5 10/20/2020 Active Dexcom G6 Sustain Engineer DeviceIndications:Typ e 2 diabetes mellitus with [...] nephropathy, with long-term current use of insulin ([facility]) CHEW 1 TABLET BY MOUTH EVERY DAY [...] mellitus with hemoglobin A1c goal of 7.0%-8.0% ([facility]),Type 2 diabetes mellitus with stage 3a chronic kidney disease, with long-term current use of insulin ([facility]),Type II diabetes mellitus with neurological manifestations ([facility]) Inject 20 Units under the skin in [...] 08/06/2022 Active Additional Information Patient taking differently:2 [place] Each NostrilBID (.AM/PM), Reported on 12/24/2022 Famotidine [...] bedtime. 90 Tablet 3 10/23/2022 Active Methscopolamine [place] 2.5 MG Oral TabletIndications:Irr itable bowel syndrome [...] the morning. 90 Tablet 3 01/24/2023 Active Vitamin C 500 MG Oral Capsule Take 1 Capsule by mouth in the morning. 0 Active Ferrous Gluconate 240 (27 Fe) MG Oral Tablet (Ferate) Take 1 Tablet by mouth in the morning. 0 Active Hospital, Clinic, or Other Facility Administered Medication Ordered Dose Route Frequency Start Date End Date Status albuterol sulfate (PROVENTIL) (2.5 MG/3ML) 0.083% inhalation solution 2.5 mgIndications:Moderate persistent asthma without complication 2.5 mg NEBULIZER Q4H PRN 08/13/2018 Active documented as of this encounter (statuses as of 02/06/2023) Active Problems Patient Care Coordination No te [...] as of this encounter (statuses as of 02/06/2023) Resolved Problems Problem Noted Date Resolved Date [...] 40 mg daily Lisinopril remains on hold 2/ hypotension Type 2 diabetes mellitus wit h [...] 06/05/2018 11/13/2019 Acute adjustment disorder with anxiety 10/14/2020 Diabetes mellitus due to und erlying [...] 018 Overview: Signed 06/04/2014 Pranav Sanchez MD [facility] [place] Spinal pain 06/04/2014 02/02/2017 Type 2 diabetes [...] as of this encounter (statuses as of 02/06/2023) Immunizations Name Administration Dates Next Due COVID-19 mRNA, LNP-s, No Pre serve, 2-Dose Series ([employer]) 09/09/2020,08/19/2020 Pneumococcal Conjugate Vacc, 13 Valent (Prevnar) [...] encounter Miscellaneous Notes * Telephone Encounter - Sandra Rea RN - 02/06/2023 12:06 PM EDT Called [facility] and confirmed that pt does not need an order for RSV vaccine as she is over age 60. Called pt to notify. * Telephone Encounter - Chris Asencio DO - 02/04/2023 8:28 AM EDT We don't have the order built out in [facility] And patient shouldn't need our order to get a shot that is recommended for her age By the CDC If needed, ok to give verbal to [facility] * Telephone Encounter - Penny Parikh RN - 02/01/2023 2:[address] Asencio - Pt is inquiring about having the RSV vaccine. [facility] does not provide that. She said she saw that she can go to [facility] in [place] to have done if you could send an order to them please. Thank you. documented in this encounter Plan of Treatment Upcoming Encounters Date Type Specialty Care Team Description 02/21/2023 Office Visit Gastroenterology Iris Cerrato PA-C [address] [place] [address] 02/21/2023 Office Visit Ophthalmology Ernie Rivers DO [address] [facility] [place] [address] 02/26/2023 Imaging Radiology 02/26/2023 Imaging Radiology 03/01/2023 Home Visit [facility] Penny Parikh RN [address] [place] [address] 03/19/2023 Telemedicine [facility] Em Zuluaga CRNP [address] [place] [address] [place], [address] [place] [address] 04/09/2023 Office Visit Family Medicine Chris Asencio, DO [address] [place] [address] 04/11/2023 Office Visit Gastroenterology Geovanna Bahena CRNP [address] [place] [address] 04/24/2023 Office Visit Pharmacy [facility] [address] [place], [place] [address] 05/06/2023 Office Visit Nephrology Eric Day MD [address] [place] [address] 05/09/2023 Office Visit Family Medicine Chris Asencio, [address] [place] [address] 05/28/2023 Laboratory Laboratory [address] [address] 06/03/2023 Office Visit Hematology Oncology Henok Stauffer MD [address] [place] [address] 06/11/2023 Office Visit Cardiology Sophy Sands PA-C [address] [place] [address] 08/08/2023 Office Visit Family Medicine Taty Tobar CRNP [address] [place] [address] 11/07/2023 Office Visit Family Medicine Chris Asencio, [address] [place] [address] 02/06/2024 Office Visit Family Medicine Ekaterina Taty, ADELA [address] [place] [address] Scheduled Procedures Name Priority Associated Diagnoses Date/Ti [...] Screening 10/13/2023 10/12/2022 CKD PHOS USE SMARTSET 89099 01/11/202412/25, 09/06/2022, 03/01/2022, Additional history exists Albumin/Creatinine Ratio 01/25/2024 023, 09/06/2022, 11/24/2021, Additional history exists CKD HGB USE SMARTSET 36707 01/25/202401/24, 01/24/2023, 01/10/2023, Additional history exists COLONOSCOPY-EVERY [...] Documents on File Type Date Recorded 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 No Care Teams Director Business Integration Relationship Specialty Start Date End Date Chris Asencio DO [address] [place] [address] PCP - General Family Medicine 01/07/18 documented as of this encounter
--- OUTSIDE RECORDS SUMMARY | 2023-06-20 00:39 | External Medical Summary | Summary of Care ---
Author Name Unknown Organization [facility] Address [address] [place] [address] Phone [phone] Care Team Providers Care Entry Level Drafter Name Role Phone Chris Asencio DO Primary Care Provider Reason for Visit * Reason Onset Date Comments Advice 02/05/2023 Encounter Details Date Type Department Care Team Description 02/05/2023 Telephone Family Practice [facility] [address] [facility] [place] [address] Chris Asencio DO [address] [facility] [place] [address] Advice Allergies Active Allergy Reactions Severity Noted Date [...] 1 Each 5 10/20/2020 Active Dexcom G6 Seed Service Advisor DeviceIndications:Typ e 2 diabetes mellitus with stage [...] current use of insulin ([facility]) CHEW 1 TABLET BY MOUTH EVERY [...] mellitus with hemoglobin A1c goal of 7.0%-8.0% ([facility]),Type 2 diabetes mellitus with stage 3a chronic kidney disease, with long-term current use of insulin ([facility]),Type II diabetes mellitus with neurological manifestations ([facility]) Inject 20 Units under the skin [...] 08/06/2022 Active Additional Information Patient taking differently:2 [place] Each NostrilBID (.AM/PM), Reported on 12/24/2022 Famotidine [...] bedtime. 90 Tablet 3 10/23/2022 Active Methscopolamine [place] 2.5 MG Oral TabletIndications:Irr itable bowel syndrome [...] 018 Overview: Signed 06/04/2014 Pranav Sanchez MD [facility] [place] Spinal pain 06/04/2014 02/02/2017 Type 2 diabetes [...] Encounter - Sandra Rea RN - 02/06/2023 12:07 PM EDT Called [facility] pharmacy and confirmed that she can go there for vaccine and that she does not need order. Called pt to notify. * Telephone Encounter - Chris Asencio DO - 02/05/2023 4:13 PM EDT Yep that sounds good! * Telephone Encounter - Yvette Mcgrath LPN - 02/05/2023 3:57 PM EDT We don't have them, at least not yet. Ok to advise that she can go to her local pharmacy or call them first to see if local pharmacy will be carrying them? * Telephone Encounter - KATERIN Nicholas - 02/05/2023 3:32 PM EDT Pt calling in regards to getting the RSV vaccine as soon as it is available. Stating her home health Nurse said they are available. documented in this encounter Plan of Treatment Upcoming Encounters Date Type Specialty Care Team Description 02/21/2023 Office Visit Gastroenterology Iris Cerrato PA-C [address] [place] [address] 02/21/2023 Office Visit Ophthalmology Ernie Rivers DO [address] [place] [address] 02/26/2023 Imaging Radiology 02/26/2023 Imaging Radiology 03/01/2023 Home Visit [facility] Penny Parikh RN [address] [place] [address] 03/19/2023 Telemedicine [facility] Em Zuluaga CRNP [address] [place] [address] [place], [facility] [employer] Con[employer] [address] [place] [address] [place] [address] 04/09/2023 Office Visit Family Medicine Chris Asencio DO [address] [place] [address] 04/11/2023 Office Visit Gastroenterology Geovanna Bahena CRNP [address] [place] [address] 04/24/2023 Office Visit Pharmacy [facility] [address] [place] [address] 05/06/2023 Office Visit Nephrology Eric Day MD [address] [place] [address] 05/09/2023 Office Visit Family [facility] Chris Asencio DO [address] [place] [address] 05/28/2023 Laboratory Laboratory [address] [address] 06/03/2023 Office Visit Hematology Oncology Henok Stauffer MD [address] [place] [address] 06/11/2023 Office Visit Cardiology Sophy Sands PA-C [address] [place] [address] 08/08/2023 Office Visit Family Medicine Taty Tobar CRNP [address] [place] [address] 11/07/2023 Office Visit Family Medicine Chris Asencio DO [address] [place] [address] 02/06/2024 Office Visit Family Medicine Taty Tobar CRNP [address] [place] [address] Scheduled Procedures Name Priority Associated Diagnoses Date/Ti me COLONOSCOPY FLEXIBLE PROXIMA L DIAGNOSTIC Recall Family history of colon cancer Health Maintenance Due Date Last Done Comments Zoster Vaccines (2 of 3) 05/07/2013 03/12/2013 COVID-19 Vaccine (3 - Pfizer series) 11/04/2020 09/09/2020, 08/19/2020 Diabetic Foot Exam 05/23/2021 05/23/2020, 1 06/06/2018, 06/05/2018, Additional history exists Mammogram 01/17/2023 01/17/2022, 080 01/2022, 06/09/2019, Additional history exists GFR 07/25/2023 01/24/2023, 12/25, 01/03/2023, Additional history exists HbA1c 07/25/2023 01/24/2023, 08/25, 08/10/2022, Additional history exists DIABETES-EYE EXAM 08/10/2023 08/09/2022, , 04/13/2021, Additional history exists Depression Screening 10/13/2023 10/12/2022 CKD PHOS USE SMARTSET 90251 01/11/202412/25, 09/06/2022, 03/01/2022, Additional history exists Albumin/Creatinine Ratio 01/25/2024 023, 09/06/2022, 11/24/2021, Additional history exists CKD HGB USE SMARTSET 87383 01/25/202401/24, 01/24/2023, 01/10/2023, Additional history exists COLONOSCOPY-EVERY [...] Documents on File Type Date Recorded 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 No Care Teams Entry Level Drafter Relationship Specialty Start Date End Date Chris Asencio DO [address] [place] [address] PCP - General Family Medicine 01/07/18 documented as of this encounter
--- OUTSIDE RECORDS SUMMARY | 2023-06-20 00:40 | External Medical Summary | Summary of Care ---
Author Name Unknown Organization [facility] Address [address] [place] [address] Phone [phone] Care Team Providers Care Web Machine Tender Name Role Phone Chris Asencio DO Primary Care Provider Reason for Visit * Reason Comments Acute Pt being seen for c/ o UTI with symptoms that began last night with burning, frequency, pain. Was in hospital over a week ago for renal failure and had fernandes cath in. Encounter Details Date Type Department Care Team Description 01/11/2023 Office Visit Family [facility] [address] [place] [address] Dany Duncan DO [address] [place] [address] Acute cystitis without hematuria*; Type 2 diabetes mellitus with stage 3b chronic kidney disease, with long-term current use of insulin (HCC); Hypertensive kidney disease with stage 3b chronic kidney disease (HCC); HTN, goal below 130/80 Allergies Active Allergy Reactions Severity Noted Date [...] as of this encounter (statuses as of 01/27/2023) Medications Medication Sig Dispensed Refills Start Date End Date Status Spacer/Aero-Holding Chambers DEVIIndications:Mod erate persistent asthma without complication Use with inhaler. 1 Device 0 07/10/19 Active multivitamin (MVI) Tablet TAKE 1 TABLET BY MOUTH EVERY DAY FOR SUPPLEMENT 1 09/18/19 Active ONETOUCH DELICA LANCETS FINE MISC Use up to four times a day as directed DX E11.9 400 Each 3 04/16/20 Active clonazePAM 0.5 MG Oral Tablet Take 1 Tablet by mouth 3 times a day as needed for Anxiety. 0 Active Doxepin HCl 100 MG Oral Capsule (SINEquan) Take 1 Capsule by mouth at bedtime. 0 08/11/19 Active Dexcom G6 TransmitterIndicati ons:Type 2 diabetes mellitus with stage 3a chronic kidney disease, with long-term current use of insulin (HCC) Use as directed. 1 Each 1 10/21/19 21 Active Dexcom G6 SensorIndications:T ype 2 diabetes mellitus with stage 3a chronic kidney disease, with long-term current use of insulin (HCC) Use as directed. 1 Each 5 10/21/19 21 Active Dexcom G6 Skin Care Specialist DeviceIndications:T ype 2 diabetes mellitus with stage 3a chronic kidney disease, with long-term current use of insulin (HCC) Use as directed. 1 Each 1 10/21/19 21 Active BD Pen Needle Mini U/F 31G X 5 MM (Insulin Pen Needle) USE DIRECTED WITH NOVOLOG 300 Each 1 04/19/20 21 Active BiPAP every night at bedtime . [...] nephropathy, with long-term current use of insulin ([facility]) CHEW 1 TABLET BY MOUTH EVERY DAY 90 Tablet 1 09/23/19 22 Active Diclofenac Sodium 1 % External Gel (Voltaren) PLACE 4 GRAMS TOPICALLY ON THE SKIN TWICE DAILY TO AFFECTED AREAS DIRECTED 300 g 4 03/15/20 22 Active Additional Information Patient taking differently: 2 g QID(AM/NOON/PM/HS), PLACE 4 GRAMS TOPICALLY ON THE SKIN TWICE DAILY TO AFFECTED AREAS DIRECTED, Reported on 12/24/2022 Atorvastatin Calcium 40 MG Oral Tablet (Lipitor) TAKE 1 TABLET BY MOUTH EVERY DAY IN THE MORNING 90 Tablet 3 04/04/20 22 Active Toujeo SoloStar 300 UNIT/ML Subcutaneous Solution Pen-injector (Insulin Glargine (1 Unit Dial))Indications:T ype 2 diabetes mellitus with hemoglobin A1c goal of 7.0%-8.0% ([facility]),Type 2 diabetes mellitus with stage 3a chronic kidney disease, with long-term current use of insulin ([facility]),Type II diabetes mellitus with neurological manifestations ([facility]) Inject 20 Units under the skin in the morning. 15 mL 5 06/20/19 23 Active Montelukast Sodium 10 MG Oral Tablet (Singulair) TAKE 1 TABLET BY MOUTH EVERY DAY 90 Tablet 2 08/07/19 23 Active Fluticasone Propionate 50 MCG/ACT Nasal Suspension (Flonase)Indication s:LRTI (lower respiratory tract infection),Moderate persistent asthma with acute exacerbation,Acute URI ADMINISTER INTO EACH NOSTRIL 2 SPRAYS IN THE MORNING. 48 mL 2 08/07/19 23 Active Additional Information Patient taking differently:2 Hunker Each NostrilBID(AM/PM), Reported on 12/24/2022 Famotidine 40 MG Oral Tablet (Pepcid) TAKE 1 TABLET BY MOUTH EVERY DAY 90 Tablet 2 08/07/19 Active Budesonide 0.5 MG/2ML Inhalation Suspension (Pulmicort)Indicati ons:Acute respiratory disease due to COVID-19 virus INHALE VIA NEBULIZER 1 VIAL IN THE MORNING AND 1 VIAL BEFORE BEDTIME 360 mL 2 08/07/19 Active Metoprolol Succinate ER 25 MG Oral Tablet Extended Release 24 Hour (toPROL XL)Indications:PVC' s (premature ventricular contractions) TAKE 1 TAB BY MOUTH EVERY MORNING AND ONE-HALF TAB AT BEDTIME. 135 Tablet 3 08/07/19 Active Alosetron HCl 1 MG Oral Tablet TAKE 1 MG BY MOUTH 2 TIMES A DAY. 180 Tablet 2 08/31/19 Active EpiPen 2-Ronni 0.3 MG/0.3ML Injection Solution Auto-injectorIndica tions:Allergy, subsequent encounter For a severe reaction: Place orange end against the outer thigh, press firmly, hold in place for 10 seconds and go to the Emergency room. 2 Each 09/07/19 Active Lisinopril 20 MG Oral Tablet (Prinivil)Indicatio ns:HTN, goal below 130/80,Stage 3a chronic kidney disease (HCC) Take 1 Tablet by mouth in the morning. 90 Tablet 09/07/19 Active Additional Information Patient not taking.Reason: on hold 12/27 for hypotension, Reported on 12/27/2022 Prochlorperazine Maleate 10 MG Oral Tablet (Compazine)Indicati ons:Gastroesophagea l reflux disease with esophagitis without hemorrhage,Irritabl e bowel syndrome, unspecified type TAKE 1 TABLET BY MOUTH EVERY 6 HOURS NEEDED FOR NAUSEA 30 Tablet 0 09/07/19 Active Diphenoxylate-Atrop ine 2.5-0.025 MG Oral Tablet (Lomotil)Indication s:Irritable bowel syndrome with diarrhea Take 2 Tablets by mouth every 6 hours as needed for Diarrhea. 30 Tablet 3 09/07/19 23 Active Breo Ellipta 100-25 MCG/ACT Inhalation Aerosol Powder Breath Activated (fluticasone furoate-vilanterol) Indications:Moderat e persistent asthma without complication INHALE 1 PUFF BY MOUTH EVERY DAY 180 Each 1 09/14/19 Active Pramipexole Dihydrochloride 1 MG Oral Tablet (Mirapex)Indication s:Right knee pain, unspecified chronicity Take 1 Tablet by mouth at bedtime. 90 Tablet 3 10/24/19 23 Active Methscopolamine [place] 2.5 MG Oral TabletIndications:I rritable bowel syndrome with diarrhea TAKE 1 TAB UP TO 3 TIMES DAILY NEEDED FOR ABDOMINAL CRAMPS & DIARRHEA, 270 Tablet 1 11/09/19 Active Additional Information Patient not taking.Reported on 01/04/2023 [id number] [employer] In Vitro Strip (Glucose Blood)Indications:T ype II diabetes mellitus with neurological manifestations (HCC) USE UP TO 4 TIMES A DAY DIRECTED 100 Strip 11 11/29/19 Active Triamcinolone Acetonide 0.1 % External Cream (Aristocort)Indicat ions:Rash and nonspecific skin eruption APPLY TO RASH ON BODY NIGHTLY NEEDED 30 g 0 01/03/20 Active Ferate 240 (27 Fe) MG Oral Tablet (Ferrous Gluconate) TAKE BY MOUTH 1 TABLET DAILY . 90 Tablet 3 04/04/20 22 023 Discontinued Furosemide 40 MG Oral Tablet (Lasix)Indications: Venous insufficiency,HTN, goal below 140/90 TAKE 1 TABLET BY MOUTH EVERY DAY 90 Tablet 3 04/04/20 22 023 Discontinued Ozempic (2 MG/DOSE) 8 MG/3ML Subcutaneous Solution Pen-injector (Semaglutide (2 MG/DOSE)) Inject 0.75 mL under the skin once a week. 9 mL 3 10/25/19 23 023 Discontinued Pantoprazole Sodium 40 MG Oral Tablet Delayed Release (Protonix) Take 1 Tablet by mouth in the morning and 1 Tablet before bedtime. 0 023 Discontinued(Re fill) Nitrofurantoin Monohyd Macro 100 MG Oral Capsule (Macrobid)Indicatio ns:Acute cystitis without hematuria Take 1 Capsule by mouth in the morning and 1 Capsule before bedtime. Do all this for 7 days. With food until gone. 14 Capsule 0 01/12/20 23 023 Hospital, Clinic, or Other Facility Administered Medication Ordered Dose Route Frequency Start Date End Date Status albuterol sulfate (PROVENTIL) (2.5 MG/3ML) 0.083% inhalation solution 2.5 mgIndications:Moderate persistent asthma without complication 2.5 mg NEBULIZER Q4H PRN 08/13/2018 Active documented as of this encounter (statuses as of 01/27/2023) Active Problems Patient Care Coordination No te [...] protocol Dyslipidemia, goal LDL below 70 03/06/20 History of COVID-19 02/15/2022 Type 2 diabetes [...] as of this encounter (statuses as of 01/27/2023) Resolved Problems Problem Noted Date Resolved Date [...] Overview: Signed 06/04/[address] [facility] [place] Spinal pain 06/04/2014 02/02/2017 Type 2 diabetes [...] as of this encounter (statuses as of 01/27/2023) Immunizations Name Administration Dates Next Due COVID-19 mRNA, LNP-s, No Pre serve, 2-Dose Series (Pfizer) 09/09/2020,08/19/2020 Pneumococcal Conjugate Vacc, 13 Valent (Prevnar) 04/03/2018,10/17/2016 Pneumococcal Polysaccharide PPV23 (Pneumovax) 04/04/2019,11/04/2018,12/10/2006 Seasonal Influenza, PF, 6 mo ns & Above, IM , (Flulaval) 02/25/2020,02/05/2019,01/29/2018,04/16 Seasonal Influenza, Quadriva lent Hd (Fluzone Hd) 03/01/2022,03/27/2021 Seasonal Influenza, Quadriva lent, No Preserve, IM [...] Sign Reading Time Taken Comments Blood Pressure 96/60 01/11/2023 11:56 AM EDT Pulse 77 01/11/2023 11:56 AM EDT Temperature 36.7 C (98 F) 01/11/2023 11:56 AM EDT Respiratory Rate 16 01/11/2023 11:56 AM EDT Oxygen Saturation - - Inhaled Oxygen Concentration - - Weight 101.6 kg (224 lb) 01/11/2023 11:56 AM EDT Height - - Body Mass Index 33.08 10/12/2022 2:18 PM EDT documented in this encounter Progress Notes * Dany Duncan DO - 01/11/2023 12:26 PM EDT Images from the original note were not included. History of Present Illness Liane Alejandre is a 72 year old female that presents for Acute (Pt being seen for c/o UTI with symptoms that began last night with burning, frequency, pain. Was in hospital over a week ago for renal failure and had fernandes cath in. ) Patient is a 72-year-old female with history diabetes mellitus type 2, hypertension and CKD 3. Patient complains of urinary frequency and dysuria. Patient denies back pain or gross hematuria. Patientdenies fatigue fever chills or sweats. Patient denies polydipsia or blurred vision. Patient denies h ypoglycemia.Patient denies fatigue fever chills or sweats. Patient denies nasal congestion sore throat or earache. Patient denies cough or sputum. Patient denies chest pain shortness breath palpitations or edema. Patient denies abdominal pain nausea vomiting diarrhea constipation. Patient denies neck or back pain, joint pain or swelling. Patient denies headache dizziness weakness or numbness. Patient denies skin rash or lesions. Review systems otherwise negative Physical Exam Vitals: 01/11/23 1156 Temp: 36.7 C (98 F) Pulse: 77 Resp: 16 BP: 96/60 General: alert, healthy, and no distress Head: Normocephalic, No masses, lesions, tenderness or abnormalities Eye Exam: PERRLA, extraocular movements intact, conjunctiva are pink and non- injected, sclera clear Ears: External ears normal, Canals clear, TM's Normal Nose: no mucosal erythema, no mucosal edema, no purulent discharge Oropharynx: no exudate, no erythema, lips, buccal mucosa, and tongue normal, and mucous membranes are moist Neck: supple, no adenopathy, no bruits, thyroid normal size, non-tender, without nodularity Lymph: no palpable lymphadenopathy Heart: regular rate & rhythm, no murmur, and no gallops Lungs: chest symmetric with normal AP diameter, no chest deformities noted, no chest wall tenderness, lungs clear to auscultation Pulses: carotid=2/4 w/o bruits Abdomen: abdomen soft, suprapubic tenderness, negative Corbin sign normal bowel sounds, and no masses or organomegaly Back: back symmetric, no curvature, no costovertebral angle tenderness, range of motion is normal Extremities: less than 2 second capillary refill, no joint deformities, effusion, or inflammation Neuro Exam: alert & oriented x 3 with fluent speech, no focal motor/sensory deficits, gait normal, reflexes normal and symmetric Skin: skin color, texture, turgor are normal, no rashes or significant lesions I have reviewed the following results: BMP Assessment and Plan Acute cystitis without hematuria - Nitrofurantoin Monohyd Macro 100 MG Oral Capsule (Macrobid); Take 1 Capsule by mouth in the morning and 1 Capsule before bedtime. Do all this for 7 days. With food until gone. - URINALYSIS, REFLEX TO CULTURE (NOT FOR NEUTROPENIC PATIENTS); Future Type 2 diabetes mellitus with stage 3b chronic kidney disease, with long-term current use of insulin (HCC) Continue present medication Toujeo 20 units once daily Ozempic 2 mg once weekly Hypertensive kidney disease with stage 3b chronic kidney disease (HCC) Continue present medication Lisinopril 20 mg 1 tab once daily Metoprolol succinate ER 25 mg 1 tab a.m., 1/2 tab p.m. Avoid NSAIDs HTN, goal below 130/80 As above Wrap-Up Time: I spent a total of 20-29 minutes (exact time 20 mins) on the date of service in preparation, delivery, and documentation of the care provided to Liane Alejandre excluding any time spent in the performance of separately billed services. documented in this encounter Plan of Treatment Upcoming Encounters Date Type Specialty Care Team Description 01/29/2023 Office Visit Hematology Oncology Henok Stauffer MD [address] [place] [address] 02/01/2023 Home Visit [facility] Penny Parikh RN [address] [place] [address] 02/21/2023 Office Visit Gastroenterology Iris Cerrato PA-C [address] [place] [address] 02/21/2023 Office Visit Ophthalmology Ernie Rivers DO [address] [facility] [address] [place] [address] 02/26/2023 Imaging Radiology 02/26/2023 Imaging Radiology 03/19/2023 Telemedicine [facility] Em Zuluaga CRNP [address] [place] [address] [place], [address] [place] [address] 04/09/2023 Office Visit Family Medicine Chris Asencio DO [address] [place] [address] 04/11/2023 Office Visit Gastroenterology Geovanna Bahena CRNP [address] [place] [address] 04/24/2023 Office Visit Pharmacy [facility] Amira [address] [place] [address] 05/06/2023 Office Visit Nephrology Eric Day MD [address] [place] [address] 05/09/2023 Office Visit Family Medicine Chris Asencio, DO [address] [place] [address] 06/11/2023 Office Visit Cardiology Sophy Sands PA-C [address] [place] [address] 08/08/2023 Office Visit Family Medicine Taty Tobar CRNP [address] [place] [address] 11/07/2023 Office Visit Family Medicine Chris Asencio, [address] [place] [address] 02/06/2024 Office Visit Family Medicine Taty Tobar CRNP [address] [place] [address] Scheduled Procedures Name Priority Associated Diagnoses Date/Ti me COLONOSCOPY FLEXIBLE PROXIMA L DIAGNOSTIC Recall Family history of colon cancer Health Maintenance Due Date Last Done Comments Zoster Vaccines (2 of 3) 05/07/2013 03/12/2013 COVID-19 Vaccine (3 - Pfizer series) 11/04/2020 09/09/2020, 08/19/2020 DIABETES-FOOT EXAM 05/23/2021 05/23/2020, 1 06/06/2018, 06/05/2018, Additional history exists Mammogram 01/17/2023 01/17/2022, 01/2022, 06/09/2019, Additional history exists GFR 07/25/2023 01/24/2023, 12/25, 01/03/2023, Additional history exists HbA1c 07/25/2023 01/24/2023, 08/25, 08/10/2022, Additional history exists DIABETES-EYE EXAM 08/10/2023 08/09/2022, , 04/13/2021, Additional history exists Depression Screening, Annual for Pts 12 and Over 10/13/2023 10/12/2022 CKD PHOS USE SMARTSET 92622 01/11/202412/25, 09/06/2022, 03/01/2022, Additional history exists Albumin/Creatinine Ratio 01/25/2024 023, 09/06/2022, 11/24/2021, Additional history exists CKD HGB USE SMARTSET 09670 01/25/202401/24, 01/24/2023, 01/10/2023, Additional history exists COLONOSCOPY-EVERY [...] Not on filedocumented as of this encounter Procedures Procedure Name Priority Date/Time Associated Diagnosis Comments URINALYSIS, REFLEX TO CULTURE Routine 01/11/2023 12:37 PM EDT Acute cystitis without hematuria URINALYSIS, REFLEX TO CULTURE (CUP ONLY) Routine 01/11/2023 12:37 PM EDT Acute cystitis without hematuria URINALYSIS, REFLEX TO CULTURE (NOT FOR NEUTROPENIC PATIENTS) Routine 01/11/2023 12:37 PM EDT Acute cystitis without hematuria CULTURE, URINE, QUANTITATIVE Routine 01/11/2023 12:37 PM EDT Acute cystitis without hematuria documented in this encounter Results * CULTURE, URINE, QUANTITATIVE (01/11/2023 12:37 PM EDT) Culture Growth No significant growth 01/12/2023 3:27 PM EDT LABORATORY C Urine Urine specimen obtained by clean catch procedure / Unknown Non-blood Collection / Unknown 01/11/2023 12:37 PM EDT 01/11/2023 12:37 PM EDT Dany Duncan DO LAB MICRO - GENERAL ORDERABLES Performing Organization Address City/State/[facility] Co de Phone Number LABORATORY C [address] [place] [address] * (ABNORMAL) URINALYSIS, REFLEX TO CULTURE (01/11/2023 12:37 PM EDT) Color, Urine Light Yellow Colorless, Light Yellow, Yellow, Dark Yellow 01/11/2023 7:13 PM EDT LABORATORY [facility] Clarity, Urine Clear Clear 01/11/2023 7:13 PM EDT LABORATORY [facility] Glucose, Urine Negative Negative mg/dL 01/11/2023 7:13 PM EDT LABORATORY [facility] Bilirubin, Urine Negative Negative 01/12/20 7:13 PM EDT LABORATORY [facility] Ketone, Urine Negative Negative mg/dL 01/11/2023 7:13 PM EDT LABORATORY [facility] Specific [place], Urine 1.010 1.003 - 1.030 01/11/2023 7:13 PM EDT LABORATORY [facility] Blood, Urine Negative Negative 01/11/2023 7:13 PM EDT LABORATORY [facility] pH, Urine 6.5 5.0 - 7.5 Units 01/11/2023 7:13 PM EDT LABORATORY [facility] Protein, Urine Negative Negative mg/dL 01/11/2023 7:13 PM EDT LABORATORY [facility] Urobilinogen, Urine Normal Normal mg/dL 01/11/2023 7:13 PM EDT LABORATORY C Nitrite, Urine Negative Negative 01/11/2023 7:13 PM EDT LABORATORY [facility] Esterase, Urine Moderate(A) Negative 01/12/20 7:13 PM EDT LABORATORY [facility] RBC, Urine 3-5(A) 0 - 2 /HPF 01/11/2023 7:13 PM EDT LABORATORY C WBC, Urine 50+(A) 0 - 2 /HPF 01/11/2023 7:13 PM EDT LABORATORY [facility] Bacteria, Urine 51-100(A) 0 - 25 /HPF 01/12/20 7:13 PM EDT LABORATORY [facility] Hyaline, Cast, Urine 10-19(A) None /LPF 01/11/2023 7:13 PM EDT LABORATORY [facility] Renal Epithelial Cells, Urine 1-4(A) None /HPF 01/11/2023 7:13 PM EDT LABORATORY [facility] Transitional Epithelial Cells, Urine 1-4(A) None /HPF 01/11/2023 7:13 PM EDT LABORATORY [facility] WBC Clumps, Urine Present(A) None /HPF 01/11/2023 7:13 PM EDT LABORATORY [facility] Culture, Urine 01/11/2023 7:13 PM EDT LABORATORY [facility] Comment:Quantitative urine c ulture to be performed Urine Urine specimen obtained by clean catch procedure / Unknown Non-blood Collection / Unknown 01/11/2023 12:37 PM EDT 01/11/2023 12:37 PM EDT Dany Duncan DO LAB URINE ORDERABLES LABORATORY [facility] [address] [place] [address] * URINALYSIS, REFLEX TO CULTURE (CUP ONLY) (01/11/2023 12:37 PM EDT) Urinalysis, Reflex to Culture Specimen Specimen collected and received 01/11/2023 2:01 PM EDT LABORATORY [facility]10 Urine Urine specimen obtained by clean catch procedure / Unknown Non-blood Collection / Unknown 01/11/2023 12:37 PM EDT 01/11/2023 12:37 PM EDT Dany Dakota DO LAB URINE ORDERABLES LABORATORY [facility] [place] [address] documented in this encounter Visit Diagnoses Diagnosis Acute cystitis without hematuria- Primary Acute cystitis Type 2 diabetes mellitus with stage 3b chronic kidney disease, with long-term current use of insulin (HCC) Hypertensive kidney disease with stage 3b chronic kidney disease (HCC) HTN, goal below 130/80 Unspecified essential hypertension documented in this encounter Advance Directives Documents on File Type Date Recorded Patient Coconut Boiler Expl anation POLST 10/20/[address] [place] [address] [facility] [...] the patient have Health Care Power of Ladle Cleaner? No Care Teams Web Machine Tender Relationship Specialty Start Date End Date Chris Asencio DO [address] [place] [address] PCP - General Family Medicine 01/07/18 documented as of this encounter
--- OUTSIDE RECORDS SUMMARY | 2023-06-20 00:40 | External Medical Summary | Summary of Care ---
Author Name Unknown Organization [facility] Address [address] [place] [address] Phone [phone] Care Team Providers Care Workday Director Name Role Phone Chris Asencio DO Primary Care Provider Reason for Visit * Reason Comments Consultation Iron deficiency anem ia * Evaluate & Treat - Unlimited Visits (Within 3 days (urgent)) - Authorized Specialty Diagnoses / Procedures Referred By Contac t Referred To Contact Hematology/Oncology / Hematology Oncology Diagnoses Other iron deficiency anemia Chris Asencio DO [address] [place] [address] Referral ID Status Reason Start Date Expiration Date Visits Requested Visits Authorized [id number] Authorized Specialty Services Required 01/24/[phone] Encounter Details Date Type Department Care Team Description 01/29/2023 Office Visit Hematology/Oncology Misty Calderon [place] [address] [place] [address] Henok Stauffer MD [address] [place] [address] Anemia, unspecified type* Allergies Active Allergy Reactions Severity Noted Date [...] as of this encounter (statuses as of 01/29/2023) Medications Medication Sig Dispensed Refills Start Date [...] 1 Each 5 10/20/2020 Active Dexcom G6 Basketball Assembler DeviceIndications:Typ e 2 diabetes mellitus with stage [...] of insulin (FORMERLY [facility]) CHEW 1 TABLET BY MOUTH EVERY DAY [...] THE MORNING 90 Tablet 3 04/04/2022 Active Toufrederick SoloStar 300 UNIT/ML Subcutaneous Solution Pen-injector (Insulin Glargine (1 Unit Dial))Indications:Typ e 2 diabetes mellitus with hemoglobin A1c goal of 7.0%-8.0% (FORMERLY [facility]),Type 2 diabetes mellitus with stage 3a chronic kidney disease, with long-term current use of insulin (FORMERLY [facility]),Type II diabetes mellitus with neurological manifestations (FORMERLY [facility]) Inject 20 Units under the skin in [...] 08/06/2022 Active Additional Information Patient taking differently:2 [place] Each NostrilBID (.AM/PM), Reported on 12/24/2022 Famotidine [...] bedtime. 90 Tablet 3 10/23/2022 Active Methscopolamine [place] 2.5 MG Oral TabletIndications:Irr itable bowel syndrome with diarrhea TAKE 1 TAB UP TO 3 TIMES DAILY NEEDED FOR ABDOMINAL CRAMPS & DIARRHEA, 270 Tablet 1 11/08/2022 Active Additional Information Patient not taking.Reported on 01/04/2023 Daojia In Vitro Strip (Glucose Blood)Indications:Typ e II [...] as of this encounter (statuses as of 01/29/2023) Active Problems Patient Care Coordination No te [...] as of this encounter (statuses as of 01/29/2023) Resolved Problems Problem Noted Date Resolved Date [...] 018 Overview: Signed 06/04/2014 Pranav Sanchez MD [facility] [place] Spinal pain 06/04/2014 02/02/2017 Type 2 diabetes [...] as of this encounter (statuses as of 01/29/2023) Immunizations Name Administration Dates Next Due COVID-19 [...] Sign Reading Time Taken Comments Blood Pressure 130/79 01/29/2023 3:53 PM EDT Pulse 83 01/29/2023 3:53 PM EDT Temperature - - Respiratory Rate 16 01/29/2023 3:53 PM EDT Oxygen Saturation 96% 01/29/2023 3:53 PM EDT Inhaled Oxygen Concentration - - Weight 103.5 kg (228 lb 3.2 oz) 01/29/2023 3:53 PM EDT Height - - Body Mass Index 33.7 10/12/2022 2:18 PM EDT documented in this encounter Progress Notes * Henok Stauffer MD - 01/29/2023 3:55 PM EDT Outpatient Consult Note Data Source: Patient, Epic record. 01/29/2023 3:55 PM Lianeshorty Russoters [id number] 72 year old Chris Asencio, DO Chris Asencio, Patient Encounter: HEMATOLOGY/ONCOLOGY [facility] Reason for consult: Iron deficiency anemia? HPI: 72-year-old female with complicated past medical history including [...] the above diagnosis. She was admitted in [facility] November 2022 and was discharged December [...] One niece was diagnosed of labial cancer. 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 Dexcom G6 Transmitter Use as directed. 1 Each 1 Dexcom G6 Sensor Use as directed. 1 Each 5 Dexcom G6 Basketball Assembler Device Use as directed. 1 Each 1 BD Pen Needle Mini U/F 31G X 5 MM (Insulin Pen Needle) USE DIRECTED WITH NOVOLOG 300 Each 1 BiPAP every night at bedtime . (Patient not taking: Reported on 09/06/2022) Systane Complete 0.6 % Ophthalmic Solution (Propylene Glycol) Instill 1 Drop into both eyes in the morning and 1 Drop at noon and 1 Drop in the evening and 1 Drop before bedtime. Proventil HFA 108 (90 Base) MCG/ACT Inhalation Aerosol Solution Inhale 1-2 Puffs by mouth 4 times aday as needed for Shortness of Breath or Wheezing. As needed (Patient not taking: Reported on 12/24/2022) Acetaminophen ER 650 MG Oral Tablet Extended Release Take 1 Tablet by mouth every 8 hours as needed. Aspirin Low Dose 81 MG Oral Tablet Chewable (aspirin) CHEW 1 TABLET BY MOUTH EVERY DAY 90 Tablet 1 Diclofenac Sodium 1 % External Gel (Voltaren) PLACE 4 GRAMS TOPICALLY ON THE SKIN TWICE DAILY TO AFFECTED AREAS DIRECTED (Patient taking differently: 2 g in the morning and 2 g at noon and 2 g in the evening and [address] 4 GRAMS TOPICALLY ON THE SKIN TWICE DAILY TO AFFECTED AREAS DIRECTED.) 300 g 4 Atorvastatin Calcium 40 MG Oral Tablet (Lipitor) TAKE 1 TABLET BY MOUTH EVERY DAY IN THE MORNING 90Tablet 3 Toujeo SoloStar 300 UNIT/ML Subcutaneous Solution Pen-injector (Insulin Glargine (1 Unit Dial)) Inject 20 Units under the skin in the morning. 15 mL 5 Montelukast Sodium 10 MG Oral Tablet (Singulair) TAKE 1 TABLET BY MOUTH EVERY DAY 90 Tablet 2 Fluticasone Propionate 50 MCG/ACT Nasal Suspension (Flonase) ADMINISTER INTO EACH NOSTRIL 2 SPRAYS IN THE MORNING. (Patient taking differently: Administer 2 Sprays into each nostril in the morning and 2 Sprays before bedtime.) 48 mL 2 Famotidine 40 MG Oral Tablet (Pepcid) TAKE 1 TABLET BY MOUTH EVERY DAY 90 Tablet 2 Budesonide 0.5 MG/2ML Inhalation Suspension (Pulmicort) INHALE VIA NEBULIZER 1 VIAL IN THE MORNING AND 1 VIAL BEFORE BEDTIME 360 mL 2 Metoprolol Succinate ER 25 MG Oral Tablet Extended Release 24 Hour (toPROL XL) TAKE 1 TAB BY MOUTH EVERY MORNING AND ONE-HALF TAB AT BEDTIME. 135 Tablet 3 Alosetron HCl 1 MG Oral Tablet TAKE 1 MG BY MOUTH 2 TIMES A DAY. 180 Tablet 2 EpiPen 2-Ronni 0.3 MG/0.3ML Injection Solution Auto-injector For a severe reaction: Place orange end against the outer thigh, press firmly, hold in place for 10 seconds and go to the Emergency room. 2 Each 3 Lisinopril 20 MG Oral Tablet (Prinivil) Take 1 Tablet by mouth in the morning. (Patient not taking:Reported on 12/24/2022) 90 Tablet 3 Prochlorperazine Maleate 10 MG Oral Tablet (Compazine) TAKE 1 TABLET BY MOUTH EVERY 6 HOURS NEEDED FOR NAUSEA 30 Tablet 0 Diphenoxylate-Atropine 2.5-0.025 MG Oral Tablet (Lomotil) Take 2 Tablets by mouth every 6 hours as needed for Diarrhea. 30 Tablet 3 Breo Ellipta 100-25 MCG/ACT Inhalation Aerosol Powder Breath Activated (fluticasone furoate-vilanterol) INHALE 1 PUFF BY MOUTH EVERY DAY 180 Each 1 Pramipexole Dihydrochloride 1 MG Oral Tablet (Mirapex) Take 1 Tablet by mouth at bedtime. 90 Tablet3 Methscopolamine Cambridge 2.5 MG Oral Tablet TAKE 1 TAB UP TO 3 TIMES DAILY NEEDED FOR ABDOMINAL CRAMPS & DIARRHEA, (Patient not taking: Reported on 01/04/2023) 270 Tablet 1 OneTouch Verio In Vitro Strip (Glucose Blood) USE UP TO 4 TIMES A DAY DIRECTED 100 Strip 11 Triamcinolone Acetonide 0.1 % External Cream (Aristocort) APPLY TO RASH ON BODY NIGHTLY NEEDED 30 g 0 Furosemide 40 MG Oral Tablet (Lasix) Take 1 Tablet by mouth in the morning and 1 Tablet before bedtime. 180 Tablet 3 Pantoprazole Sodium 40 MG Oral Tablet Delayed Release (Protonix) Take 1 Tablet by mouth in the morning and 1 Tablet before bedtime. 180 Tablet 3 Furosemide 40 MG Oral Tablet (Lasix) Take 1 Tablet by mouth in the morning and 1 Tablet before bedtime. for fluid accumulation or weight gain. 180 Tablet 11 Semaglutide 7 MG Oral Tablet (Rybelsus) Take 7 mg by mouth daily first thing in the morning. 90 Tablet 3 Current Facility-Administered Medications Medication Dose Route Frequency [...] on file Occupational History Occupation: on disability Tobacco Use Smoking status: Never Smokeless tobacco: Never Tobacco comments: Vape THC every night to help with pain to sleep Vaping Use Vaping Use: Every day Substances: THC Devices: Disposable Substance and Sexual Activity Alcohol use: No Drug use: No Sexual activity: Never Other Topics Concern Service Not Asked Blood [...] Asked Social History Narrative Not on file Social Determinants of Health Financial Resource Strain: Not on file Food Insecurity: No Food Insecurity Worried About Running Out of Food in the Last Year: Never true Ran Out of Food in the Last Year: Never true Transportation Needs: Not on file Physical Activity: Not on file Stress: Not on file Social Connections: Not on file Intimate Partner Violence: Not on file Housing Stability: Not on file Family History Problem Relation Age of Onset Musculo-skeletal Disorder Mother severe osteoporosis, age 76 Diabetes Mother Cancer Father lung cancer Colon cancer Sister Uterine cancer Sister Diabetes Sister Diabetes Sister Diabetes Brother REVIEW OF SYSTEMS: General: No Fever, chills, night sweats HEENT: No change in visual acuity, blurred or double vision. No epistaxis, facial pain, nasal discharge or change in hearing. Denies dysphagia, no muscosal ulceration, or sores noted. Cardiovascular: No chest pain, WILLIAM, or palpitations Respiratory: No shortness of breath, cough, hemoptysis, or pleuritic chest pain Gastrointestinal: No abdominal pain, nausea, vomiting, diarrhea, rectal pain or bleeding Genitourinary: Denies Hematuria or dysuria Musculoskeletal: Generalized weakness Skin: No skin rash or lesions noted Psychiatric: No vegetative signs of depression Endocrine: No symptoms of hypothyroidism or hyperglycemia Hematologic: No bleeding or lymph nodes noted As mentioned above, all other systems were reviewed in full and are unremarkable. Review of patient's allergies indicates: Allergen Reactions [...] appearing patient in no acute distress BP 130/79 (BP Site: Left Arm, BP Position: Sitting, BP Cuff Size: Large) | Pulse 83 | Resp 16 | Wt 103.5 kg (228 lb 3.2 oz) | SpO2 96% | BMI 33.70 kg/m | BSA 2.24 m Vitals were reviewed. HEENT: No oral or pharyngeal masses, ulceration or thrush noted, no sinus tenderness. Neck is supple with no thyromegaly or JVD noted. Lymph Nodes: No lymphadenopathy noted in the occipital, pre and post auricular, cervical, supra andinfraclavicular, axillary, epitrochlear, inguinal, and popliteal region. Lungs/Thorax: Clear to auscultation, no accessory muscles of respiration being used. Heart: Regular rate and rhythm, normal S1, S2. Abdomen: Soft, nontender, bowel sounds present, no appreciable hepatosplenomegaly, no palpable masses Extremeties: Good pulses bilaterally, bilateral lower extremity edema Skin: Normal skin tone with no rash, petechiae, ecchymosis noted. Musculoskeletal: No pain on palpation over bony prominence, no edema, no evidence of gout, no jointor bony deformity ASSESSMENT: 72-year-old female with complicated past medical history including [...] to continue to monitor the patient clinically. Based on the available blood test result, she does not have iron deficiency anemia. Discussed with the patient in detail about diagnosis reviewed all the available blood test result with her. At this point the best option is to continue to monitor the patient clinically. PLAN: She will return clinic for follow-up in 4 months with CBC, CMP, erythropoietin level and ferritin. The patient voiced understanding of all of [...] Nursing Notes * Samantha Asencio CMA - 01/29/2023 3:54 PM EDT Patient identifed by name and birthdate Do you have any concerns about pain management for today's visit? No Living Will or Advance Directive for Health Care as noted on the problem list. [facility] is a way you can talk to your provider on line through e-mail. Would you like to sign up? I can activate it for you? IN PROCESS Filed Vitals: 01/29/23 1553 BP: 130/79 Pulse: 83 Resp: 16 SpO2: 96% Weight: 103.5 kg (228 lb 3.2 oz) Patient was instructed to not get up on the exam table/exam chair until directed and assisted by their provider; patient is to remain seated in the chair/ wheelchair/ exam table/ exam chair for fall prevention and safety reasons. Patient is aware to have assistance to step down off exam table/exam chair with personnel. Patient voiced full comprehension of instructions. One ground level fall/slide to the ground due to foot numbness documented in this encounter Plan of Treatment Upcoming Encounters Date Type Specialty Care Team Description 02/01/2023 Home Visit [facility] Penny Parikh, RN [address] [place] [address] 02/21/2023 Office Visit Gastroenterology Iris Cerrato PA-C [address] [place] [address] 02/21/2023 Office Visit Ophthalmology Ernie Rivers DO [address] [facility] [address] [place] [address] 02/26/2023 Imaging Radiology 02/26/2023 Imaging Radiology 03/19/2023 Telemedicine [facility] Em Zuluaga CRNP [address] [place] [address] [place], [address] [place] [address] 04/09/2023 Office Visit Family Medicine Chris Asencio DO [address] [place] [address] 04/11/2023 Office Visit Gastroenterology Geovanna Bahena CRNP [address] [place] [address] 04/24/2023 Office Visit Pharmacy Greg Okemr Collier [address] [place] [address] 05/06/2023 [facility] [address] [facility] [address] 05/09/2023 Office Visit Family Medicine Chris Asencio, DO [address] [place] [address] 06/11/2023 Office Visit Cardiology Sophy Sands PA-C [address] [place] [address] 08/08/2023 Office Visit Family Medicine Taty Tobar CRNP [address] [place] [address] 11/07/2023 Office Visit Family [facility] Chris Asencio DO [address] [place] [address] 02/06/2024 Office Visit Family Medicine Taty Tobar CRNP [address] [place] [address] Scheduled Orders Name Type Priority Associated Diagnoses Orde r Schedule CBC WITH WBC DIFFERENTIAL Lab Routine Anemia, unspecified type Expected: 06/03/2023, Expires: 09/16/2023 COMPREHENSIVE METABOLIC PANEL Lab Routine Anemia, unspecified type Expected: 06/03/2023, Expires: 09/16/2023 FERRITIN Lab Routine Anemia, unspecified type Expected: 06/03/2023, Expires: 09/16/2023 ERYTHROPOIETIN (EPO) Lab Routine Anemia, unspecified type Expected: 06/03/2023, Expires: 09/16/2023 Scheduled Procedures Name Priority Associated Diagnoses Date/Ti [...] Over 10/13/2023 10/12/2022 CKD PHOS USE SMARTSET 16185 01/11/202412/25, 09/06/2022, 03/01/2022, Additional history exists Albumin/Creatinine Ratio 01/25/2024 023, 09/06/2022, 11/24/2021, Additional history exists CKD HGB USE SMARTSET 73998 01/25/202401/24, 01/24/2023, 01/10/2023, Additional history exists COLONOSCOPY-EVERY [...] this encounter Visit Diagnoses Diagnosis Anemia, unspecified type- Primary documented in this encounter Advance Directives Documents on File Type Date Recorded Patient Mental Health Advanced Practice Nurse Expl anation POLST 10/20/2021 [place] OR DERS FOR LIFE-SUSTAINING TREATMENT Latest Code Status on File Code Status Date Activated Date Inactivated Comments Full Code 03/30/2022 6:40 AM 03/30/2022 2:12 PM This order reflects the patients wishes and were consensually agreed upon. Question Answer Comments Discussion of Advance Directives occurred with: Patient Does the patient have a Living Will? No Does the patient have Health Care Power of Service Desk Lead? No Care Teams Workday Director Relationship Specialty Start Date End Date Chris Asencio DO [address] [place] [address] PCP - General Family Medicine 01/07/18 documented as of this encounter
--- OUTSIDE RECORDS SUMMARY | 2023-06-20 00:40 | External Medical Summary | Summary of Care ---
Author Name Unknown Organization [facility] Address [address] [place] [address] Phone [phone] Care Team Providers Care Litigation Manager Name Role Phone Chris Asencio DO Primary Care Provider Reason for Referral * Evaluate & Treat - Unlimited Visits (Within 3 days (urgent)) - Authorized Specialty Diagnoses / Procedures Referred By Contnavya t Referred To Contact Hematology/Oncology / Hematology Oncology Diagnoses Other iron deficiency anemia Chris Asencio DO [address] [place] [address] Referral ID Status Reason Start Date Expiration Date Visits Requested Visits Authorized [id number] Authorized Specialty Services Required 01/24/2023 999 999 Question Answer Referral Priority Within 3 days (urgent) Reason for Referral Anemia Reason for Visit * Reason Onset Date Comments Hospital Follow-Up See office no te with [facility], was seen for hosp f/u as pt was at [facility] from 12/12/2022 to 12/22/2028 due to sepsis. Pt would like to discuss Iron level. Medication Administration 01/24/2023 Flu an d/or Pneumo Inj Encounter Details Date Type Department Care Team Description 01/24/2023 Office Visit Family [facility] [address] [place] [address] Chris Asencio DO [address] [place] [address] Hospital discharge follow-up*; Other iron deficiency anemia; Type 2 diabetes mellitus with stage 3b chronic kidney disease, with long-term current use of insulin ([facility]); Dyslipidemia, goal LDL below 70; Moderate persistent asthma without complication; KATERIN (obstructive sleep apnea); HTN, goal below 130/80; PVC's (premature ventricular contractions); Gastroesophageal reflux disease with esophagitis without hemorrhage; Hypertensive kidney disease with stage 3b chronic kidney disease (HCC); Chronic kidney disease, stage 3b ([facility]); Bilateral lower extremity edema; Need for prophylactic vaccination and inoculation against influenza; Pulmonary hypertension, unspecified ([facility]) Allergies Active Allergy Reactions Severity Noted Date [...] as of this encounter (statuses as of 01/24/2023) Medications Medication Sig Dispensed Refills Start Date End Date Status Spacer/Aero-Holding Chambers DEVIIndications:Mod erate persistent asthma without complication Use with inhaler. 1 Device 0 07/10/19 19 Active multivitamin (MVI) Tablet TAKE 1 TABLET BY MOUTH EVERY DAY FOR SUPPLEMENT 1 09/18/19 19 Active ONETOUCH DELICA LANCETS FINE MISC Use up to four times a day as directed DX E11.9 400 Each 3 04/16/20 19 Active clonazePAM 0.5 MG Oral Tablet Take 1 Tablet by mouth 3 times a day as needed for Anxiety. 0 Active Doxepin HCl 100 MG Oral Capsule (SINEquan) Take 1 Capsule by mouth at bedtime. 0 08/11/19 21 Active Dexcom G6 TransmitterIndicati ons:Type 2 diabetes mellitus with stage 3a chronic kidney disease, with long-term current use of insulin (HCC) Use as directed. 1 Each 1 10/21/19 21 Active Dexcom G6 SensorIndications:T ype 2 diabetes mellitus with stage 3a chronic kidney disease, with long-term current use of insulin (HCC) Use as directed. 1 Each 5 10/21/19 21 Active Dexcom G6 Design And Sales Consultant DeviceIndications:T ype 2 diabetes mellitus with stage [...] MORNING 90 Tablet 3 04/04/20 22 Active Toufrederick SoloStar 300 UNIT/ML Subcutaneous Solution Pen-injector (Insulin Glargine (1 Unit Dial))Indications:T ype 2 diabetes mellitus with hemoglobin A1c goal of 7.0%-8.0% ([facility]),Type 2 diabetes mellitus with stage 3a chronic kidney disease, with long-term current use of insulin ([facility]),Type II diabetes mellitus with neurological manifestations ([facility]) Inject 20 Units under the skin [...] 23 Active Additional Information Patient taking differently:2 [place] Each NostrilBID(AM/PM), Reported on 12/24/2022 Famotidine 40 MG Oral Tablet (Pepcid) TAKE 1 TABLET BY MOUTH EVERY DAY 90 Tablet 2 08/07/19 23 Active Budesonide 0.5 MG/2ML Inhalation Suspension (Pulmicort)Indicati ons:Acute respiratory disease due to COVID-19 virus INHALE VIA NEBULIZER 1 VIAL IN THE MORNING AND 1 VIAL BEFORE BEDTIME 360 mL 2 08/07/19 23 Active Metoprolol Succinate ER 25 MG Oral Tablet Extended Release 24 Hour (toPROL XL)Indications:PVC' s (premature ventricular contractions) TAKE 1 TAB BY MOUTH EVERY MORNING AND ONE-HALF TAB AT BEDTIME. 135 Tablet 3 08/07/19 23 Active Alosetron HCl 1 MG Oral Tablet TAKE 1 MG BY MOUTH 2 TIMES A DAY. 180 Tablet 2 08/31/19 23 Active EpiPen 2-Ronni 0.3 MG/0.3ML Injection Solution Auto-injectorIndica tions:Allergy, subsequent encounter For a severe reaction: Place orange end against the outer thigh, press firmly, hold in place for 10 seconds and go to the Emergency room. 2 Each 3 09/07/19 23 Active Lisinopril 20 MG Oral Tablet (Prinivil)Indicatio ns:HTN, goal below 130/80,Stage 3a chronic kidney disease (HCC) Take 1 Tablet by mouth in the morning. 90 Tablet 3 09/07/19 23 Active Additional Information Patient not taking.Reason: on hold 12/27 for hypotension, Reported on 12/27/2022 Prochlorperazine Maleate 10 MG Oral Tablet (Compazine)Indicati ons:Gastroesophagea l reflux disease with esophagitis without hemorrhage,Irritabl e bowel syndrome, unspecified type TAKE 1 TABLET BY MOUTH EVERY 6 HOURS NEEDED FOR NAUSEA 30 Tablet 0 09/07/19 23 Active Diphenoxylate-Atrop ine 2.5-0.025 MG Oral Tablet (Lomotil)Indication s:Irritable bowel syndrome with diarrhea Take 2 Tablets by mouth every 6 hours as needed for Diarrhea. 30 Tablet 3 09/07/19 23 Active Breo Ellipta 100-25 MCG/ACT Inhalation Aerosol Powder Breath Activated (fluticasone furoate-vilanterol) Indications:Moderat e persistent asthma without complication INHALE 1 PUFF BY MOUTH EVERY DAY 180 Each 1 09/14/19 23 Active Pramipexole Dihydrochloride 1 MG Oral Tablet (Mirapex)Indication s:Right knee pain, unspecified chronicity Take 1 Tablet by mouth at bedtime. 90 Tablet 3 10/24/19 23 Active Methscopolamine Gage 2.5 MG Oral TabletIndications:I rritable bowel syndrome with diarrhea TAKE 1 TAB UP TO 3 TIMES DAILY NEEDED FOR ABDOMINAL CRAMPS & DIARRHEA, 270 Tablet 1 11/09/19 23 Active Additional Information Patient not taking.Reported on 01/04/2023 [place] Isaac In Vitro Strip (Glucose Blood)Indications:T ype II diabetes mellitus with neurological manifestations (HCC) USE UP TO 4 TIMES A DAY DIRECTED 100 Strip 11 11/29/19 23 Active Triamcinolone Acetonide 0.1 % External Cream (Aristocort)Indicat ions:Rash and nonspecific skin eruption APPLY TO RASH ON BODY NIGHTLY NEEDED 30 g 0 01/03/20 23 Active Furosemide 40 MG Oral Tablet (Lasix)Indications: HTN, goal below 140/90,Venous insufficiency Take 1 Tablet by mouth in the morning and 1 Tablet before bedtime. 180 Tablet 3 01/23/20 23 Active Pantoprazole Sodium 40 MG Oral Tablet Delayed Release (Protonix)Indicatio ns:Gastroesophageal reflux disease with esophagitis without hemorrhage Take 1 Tablet by mouth in the morning and 1 Tablet before bedtime. 180 Tablet 3 01/25/20 23 Active Furosemide 40 MG Oral Tablet (Lasix)Indications: Bilateral lower extremity edema Take 1 Tablet by mouth in the morning and 1 Tablet before bedtime. for fluid accumulation or weight gain. 180 Tablet 11 01/25/20 23 Active Semaglutide 7 MG Oral Tablet (Rybelsus)Indicatio ns:Type 2 diabetes mellitus with stage 3b chronic kidney disease, with long-term current use of insulin (HCC) Take 7 mg by mouth daily first thing in the morning. 90 Tablet 3 01/25/20 23 Active Ferate 240 (27 Fe) MG Oral [...] 1 Tablet before bedtime. 180 Tablet 3 01/23/20 23 023 Discontinued(Re fill) Hospital, Clinic, or Other Facility Administered Medication Ordered Dose Route Frequency Start Date End Date Status albuterol sulfate (PROVENTIL) (2.5 MG/3ML) 0.083% inhalation solution 2.5 mgIndications:Moderate persistent asthma without complication 2.5 mg NEBULIZER Q4H PRN 08/13/2018 Active documented as of this encounter (statuses as of 01/24/2023) Active Problems Patient Care Coordination No te [...] as of this encounter (statuses as of 01/24/2023) Resolved Problems Problem Noted Date Resolved Date [...] Sanchez MD [facility] [place] Spinal pain 06/04/2014 02/02/2017 Type 2 diabetes [...] as of this encounter (statuses as of 01/24/2023) Immunizations Name Administration Dates Next Due COVID-19 [...] Sign Reading Time Taken Comments Blood Pressure 120/68 01/24/2023 12:58 PM EDT Pulse 74 01/24/2023 12:58 PM EDT Temperature 36.8 C (98.2 F) 01/24/2023 12:58 PM E DT Respiratory Rate 16 01/24/2023 12:58 PM EDT Oxygen Saturation 98% 01/24/2023 12:58 PM EDT Inhaled Oxygen Concentration - - Weight 106.8 kg (235 lb 6 oz) 01/24/2023 12:58 P M EDT Height - - Body Mass Index 34.76 10/12/2022 2:18 PM EDT documented in this encounter Patient Instructions * Patient Instructions* Michelle Marion LPN - 01/24/2023 1:29 PM EDT ~~PATIENT INSTRUCTIONS FOR FLU SHOT~~ Possible side effects of influenza vaccine, (flu shot), are usually mild and include: 1. Soreness or redness at injection site 2. Low grade fever 3. Body aches You may use Tylenol/Acetaminophen as needed for these symptoms. LET YOUR DOCTOR KNOW IMMEDIATELY IF YOU HAVE DIFFICULTY BREATHING OR SWALLOWING, EXPERIENCE ITCHINGOF FEET OR HANDS, HAVE SWELLING OF EYES, FACE OR INSIDE OF NOSE. documented in this encounter Progress Notes * Michelle Marion LPN - 01/24/2023 1:29 PM EDT PRE - ADMINISTRATION DOCUMENTATION Are you experiencing any cold symptoms or fever? No Have you had Guillain-Comer Syndrome (an illness that causes paralysis) within the last 6 weeks? No Have you had the flu shot in the past? YES Have you ever had a reaction to the flu shot? No Michelle Marion LPN, 01/24/2023 1:29 PM Immunization Administration Documentation Time Out Procedure Performed: Yes Patient Identified (Ask Name/Date of ): Yes Does the patient have a fever greater than 101 degrees today? No Patient allergic to latex? No [facility] Stock: No Immunization(s) verified: Yes, Immunization Name: Flu , VIS Sheet(s) given: Yes Verified Side and Site: Yes Verified Shot(s) with Parent(s)/Patient: Yes * Chris Asencio DO - 01/24/2023 1:18 PM EDT Images from the original note were not included. Assessment and Plan Hospital discharge follow-up Overall doing better and is losing much of the fluid That she had accumulated from the fluid resuscitation at the hospital. Stomach pain and BMs much improved off SQ ozempic and after treatment with abx. Other iron deficiency anemia - HEMATOLOGY/ONCOLOGY REFERRAL OP - CBC WITH WBC DIFFERENTIAL; Future - IRON SCREEN, INCLUDING TIBC; Future Type 2 diabetes mellitus with stage 3b chronic kidney disease, with long-term current use of insulin (HCC) Will switch to oral semaglutide due to intense stomach pain and diarrhea with ozempic SQ - COMPREHENSIVE METABOLIC PANEL; Future - HEMOGLOBIN A1C; Future - ALBUMIN / CREATININE RATIO, URINE; Future - Semaglutide 7 MG Oral Tablet (Rybelsus); Take 7 mg by mouth daily first thing in the morning. Dyslipidemia, goal LDL below 70 - LIPID PANEL WITH DIRECT LDL IF TG IS HIGH; Future Moderate persistent asthma without complication KATERIN (obstructive sleep apnea) HTN, goal below 130/80 PVC's (premature ventricular contractions) Gastroesophageal reflux disease with esophagitis without hemorrhage - Pantoprazole Sodium 40 MG Oral Tablet Delayed Release (Protonix); Take 1 Tablet by mouth in the morning and 1 Tablet before bedtime. Hypertensive kidney disease with stage 3b chronic kidney disease (HCC) Chronic kidney disease, stage 3b (HCC) Bilateral lower extremity edema - Furosemide 40 MG Oral Tablet (Lasix); Take 1 Tablet by mouth in the morning and 1 Tablet before bedtime. for fluid accumulation or weight gain. Need for prophylactic vaccination and inoculation against influenza - INFLUENZA VACC, QUAD, HIGH DOSE (FLUZONE HD) Pulmonary hypertension, unspecified (HCC) History of Present Illness Liane Alejandre is a 72 year old female that presents for Hospital Follow-Up (See office note with Ramiro, was seen for hosp f/u as pt was at [facility] from 12/12/2022 to 12/22/2028 due to sepsis.Pt would like to discuss Iron level.) and Medication Administration (Flu and/or Pneumo Inj) Presents today in hospital f/u Doing much better overall And energy is slowly coming back Blood sugars are elevated since being off ozempi Physical Exam Vitals: 01/24/23 1258 Temp: 36.8 C (98.2 F) Pulse: 74 Resp: 16 SpO2: 98% BP: 120/68 Physical Exam Constitutional: Appearance: Normal appearance. HENT: Head: Normocephalic and atraumatic. Eyes: Extraocular Movements: Extraocular movements intact. Pupils: Pupils are equal, round, and reactive to light. Cardiovascular: Rate and Rhythm: Normal rate and regular rhythm. Pulmonary: Effort: Pulmonary effort is normal. Breath sounds: Normal breath sounds. Abdominal: General: Abdomen is flat. Bowel sounds are normal. Palpations: Abdomen is soft. Neurological: General: No focal deficit present. Mental Status: She is alert and oriented to person, place, and time. Psychiatric: Mood and Affect: Mood normal. Behavior: Behavior normal. Wrap-Up Follow-up: Return in about 3 months (around 04/25/2023). | Check-out note: 3 months with me, thiedein 6, me in 9, thiede in 12 Time: Total time today was 60 minutes excluding any time spent in the performance of separately billed services. documented in this encounter Plan of Treatment Upcoming Encounters Date Type Specialty Care Team Description 01/29/2023 Immunization Ancillary Amira, Flu Shot Clinic [facility] [address] [place] [address] 01/29/2023 Office Visit [facility] [address] [facility] [address] 02/01/2023 Home Visit [facility] Penny Parikh RN [address] [place] [address] 02/21/2023 Office Visit Gastroenterology Iris Cerrato PA-C [address] [place] [address] 02/21/2023 Office Visit Ophthalmology Ernie Rivers DO [address] [facility] [place] [address] 02/26/2023 Imaging Radiology 02/26/2023 Imaging Radiology 03/19/2023 Telemedicine [facility] Em Zuluaga CRNP [address] [place] [address] [place], [address] [place] [address] 04/09/2023 Office Visit Family Medicine Chris Asencio DO [address] [place] [address] 04/11/2023 Office Visit Gastroenterology Geovanna Bahena CRNP [address] [place] [address] 04/24/2023 Office Visit Pharmacy [facility] [address] [place] [address] 05/06/2023 Office Visit Nephrology Eric Day MD [address] [facility], [place] [address] 05/09/2023 Office Visit Family Medicine Chris Asencio DO [address] [place] [address] 06/11/2023 Office Visit Cardiology Sophy Sands PA-C [address] [place] [address] 08/08/2023 Office Visit Family Taty Beard CRNP [address] [place] [address] 11/07/2023 Office Visit Family Medicine Chris Asencio DO [address] [place] [address] 02/06/2024 Office Visit Family Medicine Taty Tobar CRNP [address] [place] [address] Pending Results Name Type Priority Associated Diagnoses Date /Time COMPREHENSIVE METABOLIC PANEL Lab Routine Type 2 diabetes mellitus with stage 3b chronic kidney disease, with long-term current use of insulin (HCC) 01/24/2023 1:57 PM EDT HEMOGLOBIN A1C Lab Routine Type 2 diabetes mellitus with stage 3b chronic kidney disease, with long-term current use of insulin (HCC) 01/24/2023 1:57 PM EDT ALBUMIN / CREATININE RATIO, URINE Lab Routine Type 2 diabetes mellitus with stage 3b chronic kidney disease, with long-term current use of insulin (HCC) 01/24/2023 1:57 PM EDT LIPID PANEL WITH DIRECT LDL IF TG IS HIGH Lab Routine Dyslipidemia, goal LDL below 70 01/24/2023 1:57 PM EDT IRON SCREEN, INCLUDING TIBC Lab Routine Other iron deficiency anemia 01/24/2023 1:57 PM EDT Scheduled Orders Name Type Priority Associated Diagnoses Orde r Schedule COMPREHENSIVE METABOLIC PANEL Lab Routine Type 2 diabetes mellitus with stage 3b chronic kidney disease, with long-term current use of insulin (HCC) Expected: 01/24/2023 (Approximate), Expires: 01/25/2024 HEMOGLOBIN A1C Lab Routine Type 2 diabetes mellitus with stage 3b chronic kidney disease, with long-term current use of insulin (HCC) Expected: 01/24/2023 (Approximate), Expires: 01/25/2024 ALBUMIN / CREATININE RATIO, URINE Lab Routine Type 2 diabetes mellitus with stage 3b chronic kidney disease, with long-term current use of insulin (HCC) Expected: 01/24/2023 (Approximate), Expires: 01/25/2024 LIPID PANEL WITH DIRECT LDL IF TG IS HIGH Lab Routine Dyslipidemia, goal LDL below 70 Expected: 01/24/2023, Expires: 01/25/2024 IRON SCREEN, INCLUDING TIBC Lab Routine Other iron deficiency anemia Expected: 01/24/2023 (Approximate), Expires: 01/24/2024 Scheduled Procedures Name Priority Associated Diagnoses Date/Ti me COLONOSCOPY FLEXIBLE PROXIMA L DIAGNOSTIC Recall Family history of colon cancer Scheduled Referrals Name Type Priority Associated Diagnoses Orde r Schedule HEMATOLOGY/ONCOLOGY REFERRAL OP Referral Within 3 days (urgent) Other iron deficiency anemia Ordered: 01/24/2023 Health Maintenance Due Date Last Done Comments Zoster Vaccines (2 of 3) 05/07/2013 03/12/2013 COVID-19 Vaccine (3 - Pfizer series) 11/04/2020 09/09/2020, 08/19/2020 DIABETES-FOOT EXAM 05/23/2021 05/23/2020, 1 06/06/2018, 06/05/2018, Additional history exists Mammogram 01/17/2023 01/17/2022, 01/2022, 06/09/2019, Additional history exists HbA1c 03/08/2023 09/06/2022, 07/25, 03/01/2022, Additional history exists GFR 07/13/2023 01/10/2023, 12/25, 12/28/2022, Additional history exists DIABETES-EYE EXAM 08/10/2023 08/09/2022, , 04/13/2021, Additional history exists Albumin/Creatinine Ratio 09/07/2023 023, 11/24/2021, 11/15/2020, Additional history exists Depression Screening, Annual for Pts 12 and Over 10/13/2023 10/12/2022 CKD PHOS USE SMARTSET 89833 01/11/202412/25, 09/06/2022, 03/01/2022, Additional history exists CKD HGB USE SMARTSET 61185 01/25/202401/24, 01/24/2023, 01/10/2023, Additional history exists COLONOSCOPY-EVERY 5 YRS AGES 18-100 03/17/2026 03/17/2021, 03/17/2021, 12/07/2014, Additional history exists DTaP,Tdap,and Td Vaccines (3 - Td or Tdap) 04/16/2026 04/16/2016, 04/12/2006 Lipid Panel 09/07/2027 09/06/2022, 10/2021, 08/23/2021, Additional history exists DXA Scan 08/22/2031 08/21/2022, [...] as of this encounter Visit Diagnoses Diagnosis Hospital discharge follow-up- Primary Other follow-up examination Other iron deficiency anemia Type 2 diabetes mellitus with stage 3b chronic kidney disease, with long-term current use of insulin (HCC) Dyslipidemia, goal LDL below 70 Other and unspecified hyperlipidemia Moderate persistent asthma without complication Unspecified asthma KATERIN (obstructive sleep apnea) Obstructive sleep apnea (adult) (pediatric) HTN, goal below 130/80 Unspecified essential hypertension PVC's (premature ventricular contractions) Other premature beats Gastroesophageal reflux disease with esophagitis without hemorrhage Hypertensive kidney disease with stage 3b chronic kidney disease (HCC) Chronic kidney disease, stage 3b (HCC) Bilateral lower extremity edema Edema Need for prophylactic vaccination and inoculation against influenza Pulmonary hypertension, unspecified (HCC) documented in this encounter Advance Directives Documents on File Type Date Recorded Patient Straddle Bug Driver Expl bhargav MCGILL 10/20/2021 [place] [facility] FOR LIFE-SUSTAINING TREATMENT Latest Code Status on File Code Status Date Activated Date Inactivated Comments Full Code 03/30/2022 6:40 AM 03/30/2022 2:12 PM This order reflects the patients wishes and were consensually agreed upon. Question Answer Comments Discussion of Advance Directives occurred with: Patient Does the patient have a Living Will? No Does the patient have Health Care Power of Composition Stone Applicator? No Care Teams Litigation Manager Relationship Specialty Start Date End Date Chris Asencio DO [address] [place] [address] PCP - General Family Medicine 01/07/18 documented as of this encounter
--- OUTSIDE RECORDS SUMMARY | 2023-06-20 00:41 | External Medical Summary | Summary of Care ---
Author Name Unknown Organization [facility] Address [address] [place] [address] Phone [phone] Care Team Providers Care Freezer Machine Operator Name Role Phone Chris Asencio Ruianay Primary Care Provider Reason for Visit * Reason Onset Date Comments [facility]: Maintenance 01/22/2023 Encounter Details Date Type Department Care Team Description 01/22/2023 Telephone [facility] [address] [facility] [place] [address] Lenora Tao LPN [facility]: Maintenance Allergies Active Allergy [...] as of this encounter (statuses as of 01/22/2023) Medications Medication Sig Dispensed Refills Start Date [...] 1 Each 5 10/20/2020 Active Dexcom G6 Restorative Care Technician DeviceIndications:Typ e 2 diabetes mellitus with stage [...] THE MORNING 90 Tablet 3 04/04/2022 Active Ferate 240 (27 Fe) MG Oral Tablet (Ferrous Gluconate) TAKE BY MOUTH 1 TABLET DAILY . 90 Tablet 3 04/04/2022 Active Toujeo SoloStar [...] 08/06/2022 Active Additional Information Patient taking differently:2 [place] Each NostrilBID(AM/PM), Reported on 12/24/2022 Famotidine 40 [...] at bedtime. 90 Tablet 3 10/23/2022 Active Ozempic (2 MG/DOSE) 8 MG/3ML Subcutaneous Solution Pen-injector (Semaglutide (2 MG/DOSE)) Inject 0.75 mL under the skin once a week. 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 0 Active Triamcinolone Acetonide 0.1 % External Cream (Aristocort)Indicatio ns:Rash and nonspecific skin eruption APPLY TO RASH ON BODY NIGHTLY NEEDED 30 g 0 01/02/2023 Active Furosemide 40 MG Oral Tablet (Lasix)Indications:Ve nous insufficiency,HTN, goal below 140/90 TAKE 1 TABLET BY MOUTH EVERY DAY 90 Tablet 3 01/16/2023 Active Hospital, Clinic, or Other Facility Administered Medication Ordered Dose Route Frequency Start Date End Date Status albuterol sulfate (PROVENTIL) (2.5 MG/3ML) 0.083% inhalation solution 2.5 mgIndications:Moderate persistent asthma without complication 2.5 mg NEBULIZER Q4H PRN 08/13/2018 Active documented as of this encounter (statuses as of 01/22/2023) Active Problems Patient Care Coordination No te Formatting of this note migh t be different from the original. Patient's 'Red Flags': 1. N/v/diarrhea 2. Decreased urine output 3. Unable to get out of bed Problem Noted Date Hypertensive kidney disease with stage 3 b chronic kidney disease 01/07/2023 Overview: Per CKD protocol Type 2 diabetes mellitus wit h stage 3b chronic kidney disease, with long-term current use of insulin 01/07/2023 Overview: Per CKD protocol Chronic kidney disease, stage 3b 023 Overview: Per CKD protocol Dyslipidemia, goal LDL below 70 10/11/20 22 History of COVID-19 02/15/2022 Type 2 [...] as of this encounter (statuses as of 01/22/2023) Resolved Problems Problem Noted Date Resolved Date [...] Sanchez MD [facility] [place] Spinal pain 06/04/2014 02/02/2017 Type 2 diabetes [...] as of this encounter (statuses as of 01/22/2023) Immunizations Name Administration Dates Next Due COVID-19 mRNA, LNP-s, No Pre serve, 2-Dose Series (hybris) 09/09/2020,08/19/2020 Pneumococcal Conjugate Vacc, 13 Valent (Prevnar) [...] Miscellaneous Notes * Telephone Encounter - Lenora Tao, YAAKOV - 01/22/2023 9:35 AM EDT Received call from patient asking about iron. She reports 2 days ago she noted feeling more tired and was thinking her iron maybe low. She has just been worn out and even took a nap yesterday which is out of the norm for her. Has an appt w/ PCP this week and was questioning if she needed lab work to check her levels. Informed pt she should notmake med changes without speaking with her PCP. Wt is down 17 lbs since dc from the hospital and BLE edema has resolved. Has been checking BS does not think they are as well controlled, sometimes going into the 300s after a small amount of carb intake. Patient has multiple concerns. Encouraged to discuss concerns with PCP at this weeks appt. Emotional support provided. documented in this encounter Plan of Treatment Upcoming Encounters Date Type Specialty Care Team Description 01/24/2023 Office Visit Family Chris Myles DO [address] [place] [address] 01/29/2023 Immunization Ancillary [facility], Flu Shot Clinic Fam Prac [address] [place] [address] 02/01/2023 Home Visit [facility] Penny Parikh RN [address] [place] [address] 02/21/2023 Office Visit Gastroenterology Iris Cerrato PA-C [address] [place] [address] 02/21/2023 Office Visit Ophthalmology Ernie Rivers, DO [address] [place] [address] 02/26/2023 Imaging Radiology 02/26/2023 Imaging Radiology 03/19/2023 Telemedicine [facility] Em Zuluaga CRNP [address] [place] [address] [place] Dan [address] [place] [address] 04/09/2023 Office Visit Chris Jones DO [address] [place] [address] 04/11/2023 Office Visit Gastroenterology Geovanna Bahena CRNP [address] [place] [address] 04/24/2023 Office Visit Pharmacy [facility] Amira [address] [place] [address] 05/06/2023 [facility] [address] [facility] [address] 06/11/2023 Office Visit Cardiology Sophy Sands PA-C [address] [place] [address] Scheduled Procedures Name Priority Associated Diagnoses Date/Ti me COLONOSCOPY FLEXIBLE PROXIMA L DIAGNOSTIC Recall Family history of colon cancer Health Maintenance Due Date Last Done Comments Zoster Vaccines (2 of 3) 05/07/2013 03/12/2013 COVID-19 Vaccine (3 - Pfizer series) 11/04/2020 09/09/2020, 08/19/2020 DIABETES-FOOT EXAM 05/23/2021 05/23/2020, 1 06/06/2018, 06/05/2018, Additional history exists Mammogram 01/17/2023 01/17/2022, 08/0 01/2022, 06/09/2019, Additional history exists Influenza Vaccine (FLU shot) (#1) 2023 03/01/2022, 03/27/2021, 03/04/2020, Additional history exists HbA1c 03/08/2023 09/06/2022, 07/25, 03/01/2022, Additional history exists GFR 07/13/2023 01/10/2023, 12/25, 12/28/2022, Additional history exists DIABETES-EYE EXAM 08/10/2023 08/09/2022, , 04/13/2021, Additional history exists Albumin/Creatinine Ratio 09/07/20232 023, 11/24/2021, 11/15/2020, Additional history exists Depression Screening, Annual for Pts 12 and Over 10/13/2023 10/12/2022 CKD HGB USE SMARTSET 73715 01/11/202401/103, 01/10/2023, 12/28/2022, Additional history exists CKD PHOS USE SMARTSET 90362 01/11/202412/25, 09/06/2022, 03/01/2022, Additional history exists COLONOSCOPY-EVERY 5 YRS AGES 18-100 03/17/2026 03/17/2021, 03/17/2021, 12/07/2014, Additional history exists DTaP,Tdap,and Td Vaccines (3 - Td or Tdap) 04/16/2026 04/16/2016, 04/12/2006 Lipid Panel 09/07/2027 09/06/2022, 10/2021, 08/23/2021, Additional history exists DXA Scan 08/22/2031 08/21/2022, 10/2019, 01/19/2008 Pneumococcal Vaccine: 65+ Years Completed 04/04/2019, 11/04/2018, 04/03/2018, Additional history exists GARDASIL-HPV IMMUNIZATION SERIES Aged [...] Documents on File Type Date Recorded Patient Graduate Engineer Expl anation POLST 10/20/2021 [place] [...] the patient have Health Care Power of Pattern Chart Writer? No Care Teams Freezer Machine Operator Relationship Specialty Start Date End Date Chris Asencio DO [address] [place] [address] PCP - General Family Medicine 01/07/18 documented as of this encounter
--- OUTSIDE RECORDS SUMMARY | 2023-06-20 00:41 | External Medical Summary ---
Author Name Unknown Address Unknown Organization [id number]:[facility] [place] [address] [place] [id number] Laboratory Report Ordering Provider Test Date Status HARLEY LOPEZ 01/24/2023 13:57:06 Final Observation Date Value Abnormality Reference (Units ) Status Iron 01/24/2023 13:57:06 46 33-151 (ug /dL) Final Iron-binding capacity 01/24/2023 13:57:06 284 250-425 (ug/dL) Final Transferrin Sat % 01/24/2023 13:57:06 16 15 -55 (%) Final Performing Location [facility] [place] [facility] [address] [place] [address]
--- OUTSIDE RECORDS SUMMARY | 2023-06-20 00:41 | External Medical Summary | Summary of Care ---
Author Name Unknown Organization [facility] Address [address] [place] [address] Phone [phone] Care Team Providers Care Travel Money Advisor Name Role Phone Jessica Asencio DO Primary Care Provider Reason for Visit * Reason Onset Date Comments Medication Refill 01/21/2023 Encounter Details Date Type Department Care Team Description 01/21/2023 Refill Family Practice [facility] [address] [place] [address] Jessica Asencio DO [address] [facility] [place] [address] Allergies Active Allergy Reactions Severity Noted Date [...] 1 Each 5 10/20/2020 Active Dexcom G6 Shuttle Veneering Supervisor DeviceIndications:Ty pe 2 diabetes mellitus with [...] nephropathy, with long-term current use of insulin ([facility]) CHEW 1 TABLET BY MOUTH [...] mellitus with hemoglobin A1c goal of 7.0%-8.0% ([facility]),Type 2 diabetes mellitus with stage 3a chronic kidney disease, with long-term current use of insulin ([facility]),Type II diabetes mellitus with neurological manifestations ([facility]) Inject 20 Units under the [...] 08/06/2022 Active Additional Information Patient taking differently:2 [place] Each NostrilBID(AM/PM), Reported on 12/24/2022 Famotidine 40 MG Oral Tablet (Pepcid) TAKE 1 TABLET BY MOUTH EVERY DAY 90 Tablet 2 08/06/2022 Active Budesonide 0.5 MG/2ML Inhalation Suspension (Pulmicort)Indicatio [...] 09/06/2022 Active Lisinopril 20 MG Oral Tablet (Prinivil)Indication [...] FOR NAUSEA 30 Tablet 0 09/06/2022 Active Diphenoxylate-Atropi ne 2.5-0.025 MG Oral Tablet [...] Information Patient not taking.Reported on 12/24/2022 Methscopolamine [place] 2.5 MG Oral TabletIndications:Ir ritable bowel syndrome with diarrhea TAKE 1 TAB UP TO 3 TIMES DAILY NEEDED FOR ABDOMINAL CRAMPS & DIARRHEA, 270 Tablet 1 11/08/2022 Active Additional Information Patient not taking.Reported on 01/04/2023 [employer] [place] In Vitro Strip (Glucose Blood)Indications:Ty pe II diabetes mellitus with neurological manifestations (HCC) USE UP TO 4 TIMES A DAY DIRECTED 100 Strip 11 11/28/2022 Active Triamcinolone Acetonide 0.1 % External Cream (Aristocort)Indicati ons:Rash and nonspecific skin eruption APPLY TO RASH ON BODY NIGHTLY NEEDED 30 g 0 01/02/2023 Active Pantoprazole Sodium 40 MG Oral Tablet Delayed Release (Protonix) Take 1 Tablet by mouth in the morning and 1 Tablet before bedtime. 180 Tablet 3 01/22/2023 Active Pantoprazole Sodium 40 MG Oral Tablet Delayed Release (Protonix) Take 1 Tablet by mouth in the morning and 1 Tablet before bedtime. 0 01/22/20 Discontinu ed(Refill) Furosemide 40 MG Oral Tablet (Lasix)Indications:V enous insufficiency,HTN, goal below 140/90 TAKE 1 TABLET BY MOUTH EVERY DAY 90 Tablet 3 01/16/2023 01/23/20 23 Discontinu ed(Refill) Hospital, Clinic, or Other [...] 018 Overview: Signed 06/04/2014 Pranav Sanchez MD [facility] [place] Spinal pain 06/04/2014 02/02/2017 Type 2 diabetes [...] mRNA, LNP-s, No Pre serve, 2-Dose Series ([employer]) 09/09/2020,08/19/2020 Pneumococcal Conjugate Vacc, 13 Valent (Prevnar) [...] Telephone Encounter - Jessica Asencio DO - 01/22/2023 4:39 PM EDTSigned Prescriptions: Disp Refills Pantoprazole Sodium 40 MG Oral Tablet [place]*180 Ta*3 Sig: Take 1 Tablet by mouth in the morning and 1 Tablet before bedtime. Authorizing Provider: JESSICA ASENCIO * Telephone Encounter - Keisha Merino LPN - 01/22/2023 9:42 AM EDTPending Prescriptions: Disp Refills Pantoprazole Sodium 40 MG Oral Tablet [place]eredith*180 Ta*1 Sig: Take 1 Tablet by mouth in the morning and 1 Tablet before bedtime. * Telephone Encounter - Kamilah Baron - 01/21/2023 2:27 PM EDT Did you pend patient's preferred pharmacy and medication before forwarding?yes Pharmacy: [id number] [address] [facility] Pending Prescriptions: Disp Refills Pantoprazole Sodium 40 MG Oral Tablet Del* Sig: Take 1 Tablet by mouth in the morning and 1 Tablet before bedtime. Last Visit: 01/11/2023 (in office), 06/30/2021 (telemedicine) Next Visit: 04/09/2023 If no future appointments scheduled, and last appointment is greater than a year ago, please schedule patient for a follow-up appointment Last date the medication was ordered: 12.22.22 Is this request for a controlled substance?No Urine Drug Screen:No results found. However, due to the size of the patient record, not all encounters were searched. Please check Results Review for a complete set of results. Patient Phone Numbers Labs: Lab Results Component Value Date/Time CREAT 1.6 (H) 01/10/2023 09:08 AM CREAT 0.95 09/20/2021 12:00 AM CREAT 1.0 05/24/2020 11:20 AM POTASSIUM 3.8 01/10/2023 09:08 AM POTASSIUM 3.8 09/20/2021 12:00 AM POTASSIUM 4.0 05/24/2020 11:20 AM TSH 3.15 12/28/2022 11:49 AM TSH 1.19 05/06/2019 11:23 AM LDLCALC 34 09/06/2022 12:35 PM LDLCALC 78 05/14/2018 12:26 PM LDLDIRECT 67 03/01/2022 01:17 PM LDLDIRECT 61 10/30/2019 03:49 PM LDLDIRECT 71 05/14/2017 01:52 PM ALT 15 09/06/2022 12:35 PM ALT 15 10/30/2019 03:49 PM HGBA1C 6.7 (H) 09/06/2022 12:35 PM HGBA1C 6.2 (A) 09/15/2021 12:00 AM HGBA1C 6.7 (H) 05/24/2020 11:20 AM documented in this encounter Plan of Treatment Upcoming Encounters Date Type Specialty Care Team Description 01/24/2023 Office Visit Family Medicine Jessica Asencio DO [address] [place] [address] 01/29/2023 Immunization Ancillary Amira, Flu Shot Clinic Fam Prac [address] [place] [address] 02/01/2023 Home Visit [facility] Penny Parikh RN [address] [place] [address] 02/21/2023 Office Visit Gastroenterology Iris Cerrato PA-C [address] [place] [address] 02/21/2023 Office Visit Ophthalmology Ernie Rivers DO [address] [place] [address] 02/26/2023 Imaging Radiology 02/26/2023 Imaging Radiology 03/19/2023 Telemedicine [facility] Em Zuluaga CRNP [address] [place] [address] [place], Count Includes [facility] [address] [place] [address] 04/09/2023 Office Visit Family Medicine Jessica Asencio DO [address] [place] [address] 04/11/2023 Office Visit Gastroenterology Geovanna Bahena CRNP [address] [place] [address] 04/24/2023 Office Visit Pharmacy [facility] Amira [address] [place] [address] 05/06/2023 Office Visit [facility]ph[facility] [address] [facility] [address] 06/11/2023 Office Visit Cardiology Sophy Sands PA-C [address] [place] [address] Scheduled Procedures Name Priority Associated Diagnoses Date/Ti me COLONOSCOPY FLEXIBLE PROXIMA L DIAGNOSTIC Recall Family history of colon cancer Health Maintenance Due Date Last Done Comments Zoster Vaccines (2 of 3) 05/07/2013 03/12/2013 COVID-19 Vaccine (3 - Pfizer series) 11/04/2020 09/09/2020, 08/19/2020 DIABETES-FOOT EXAM 05/23/2021 05/23/2020, 1 06/06/2018, 06/05/2018, Additional history exists Mammogram 01/17/2023 01/17/2022, 2, 06/09/2019, Additional history exists Influenza Vaccine (FLU [...] Over 10/13/2023 10/12/2022 CKD HGB USE SMARTSET 31948 01/11/202401/10, 01/10/2023, 12/28/2022, Additional history exists CKD PHOS USE SMARTSET 94549 01/11/202412/25, 09/06/2022, 03/01/2022, Additional history exists COLONOSCOPY-EVERY [...] Documents on File Type Date Recorded Patient Computer System Validation Specialist Expl anation POLST 10/20/2021 [place] OR [facility] FOR LIFE-SUSTAINING TREATMENT Latest Code Status on File Code Status Date Activated Date Inactivated Comments Full Code 03/30/2022 6:40 AM 03/30/2022 2:12 PM This order reflects the patients wishes and were consensually agreed upon. Question Answer Comments Discussion of Advance Directives occurred with: Patient Does the patient have a Living Will? No Does the patient have Health Care Power of Archery Instructor? No Care Teams Travel Money Advisor Relationship Specialty Start Date End Date Jessica Asencio DO [address] [place] [address] PCP - General Family Medicine 01/07/18 documented as of this encounter
--- OUTSIDE RECORDS SUMMARY | 2023-06-20 00:41 | External Medical Summary ---
Author Name Unknown Address Unknown Organization [id number]:[facility] - [address] [place] [address] Laboratory Report Ordering Provider Test Date Status HARLEY LOPEZ 01/24/2023 13:57:06 Final Observation Date Value Abnormality Reference (Units ) Status WBC, Total 01/24/2023 13:57:06 5.07 4.00-10.8 0 (K/uL) Final RBC 01/24/2023 13:57:06 3.65 3.85-5.15 (M/uL) Final Hemoglobin 01/24/2023 13:57:06 10.8 Below low normal 12 .0-15.3 (g/dL) Final HCT 01/24/2023 13:57:06 34.1 Below low normal 36. 0-45.2 (%) Final MCV 01/24/2023 13:57:06 93.4 81.5-97.5 (fL) Final MCH 01/24/2023 13:57:06 29.6 27.0-34.0 (pg) Final MCHC 01/24/2023 13:57:06 31.7 32.0-36.0 (g/dL) Final RDW 01/24/2023 13:57:06 15.6 11.5-15.5 (%) Final Platelets 01/24/2023 13:57:06 250 140-400 (K /uL) Final MPV 01/24/2023 13:57:06 10.3 6.6-11.1 ( fL) Final Performing Location [facility] - [address] [place] [address]
--- OUTSIDE RECORDS SUMMARY | 2023-06-20 00:41 | External Medical Summary | Summary of Care ---
Author Name Unknown Organization [facility] Address [address] [place] [address] Phone [phone] Care Team Providers Care Tool Drawing Checker Name Role Phone Chris Asencio DO Primary Care Provider Reason for Visit * Reason Onset Date Comments Advice 01/21/2023 Med Request 01/21/2023 Encounter Details Date Type Department Care Team Description 01/21/2023 Telephone Family Practice [facility] [address] [place] [phone] Chris Asencio DO [address] [place] [address] Advice; Med Request Allergies Active Allergy Reactions Severity Noted Date [...] 1 Each 5 10/20/2020 Active Dexcom G6 Staff Radiologist DeviceIndications:Ty pe 2 diabetes mellitus with stage [...] long-term current use of insulin ([facility]) CHEW 1 TABLET BY MOUTH EVERY [...] hemoglobin A1c goal of 7.0%-8.0% ([facility]),Type 2 diabetes mellitus with stage 3a chronic kidney disease, with long-term current use of insulin ([facility]),Type II diabetes mellitus with neurological manifestations ([facility]) Inject 20 Units under the skin [...] 08/06/2022 Active Additional Information Patient taking differently:2 [place] Each NostrilBID(AM/PM), Reported on 12/24/2022 Famotidine 40 [...] Information Patient not taking.Reported on 12/24/2022 Methscopolamine [place] 2.5 MG Oral TabletIndications:Ir ritable bowel syndrome with diarrhea TAKE 1 TAB UP TO 3 TIMES DAILY NEEDED FOR ABDOMINAL CRAMPS & DIARRHEA, 270 Tablet 1 11/08/2022 Active Additional Information Patient not taking.Reported on 01/04/2023 OneTouch [place]io In Vitro Strip (Glucose Blood)Indications:Ty pe II diabetes mellitus with neurological manifestations (HCC) USE UP TO 4 TIMES A DAY DIRECTED 100 Strip 11 11/28/2022 Active Triamcinolone Acetonide 0.1 % External Cream (Aristocort)Indicati ons:Rash and nonspecific skin eruption APPLY TO RASH ON BODY NIGHTLY NEEDED 30 g 0 01/02/2023 Active Furosemide 40 MG Oral Tablet (Lasix)Indications:H [...] 018 Overview: Signed 06/04/2014 Pranav Sanchez MD [facility] [place] Spinal pain 06/04/2014 02/02/2017 Type 2 [...] mRNA, LNP-s, No Pre serve, 2-Dose Series (Gingerd) 09/09/2020,08/19/2020 Pneumococcal Conjugate Vacc, 13 Valent (Prevnar) [...] Telephone Encounter - Yvette Mcgrath LPN - 01/22/2023 2:31 PM EDT Please change rx and sent to pharmacy if you agree. Pt is taking 40 mg 2 daily, and this is not howit is listed on her med list. Can you change? She was taking 2 daily since being in the hospital. Please advise. * Telephone Encounter - RIAN Garcia - 01/21/2023 4:39 PM EDT Pt is calling again pt was told to take Furosemide 40 MG Oral Tablet (Lasix two a day She was told this in the hospital she needs new rx for above she has been taking two a day and it is working Please send Thank you for your assistance Precious Vargas Powder Truck Driver II [facility] ([facility]) 01/21/2023,4:41 PM * Telephone Encounter - KATERIN Orellana - 01/21/2023 12:14 PM EDT Pt requesting to speak to PCP or nurse regarding lasix. documented in this encounter Plan of Treatment Upcoming Encounters Date Type Specialty Care Team Description 01/24/2023 Office Visit Family Medicine Chris Asencio DO [address] [place] [address] 01/29/2023 Immunization Ancillary Am[place], Flu Shot Clinic Fam Prac [address] [place] [address] 02/01/2023 [facility] Penny Parikh RN [address] [place] [address] 02/21/2023 Office Visit Gastroenterology Iris Cerrato PA-C [address] [place] [address] 02/21/2023 Office Visit Ophthalmology Ernie Rivers DO [address] [place] [address] 02/26/2023 Imaging Radiology 02/26/2023 Imaging Radiology 03/19/2023 Telemedicine [facility] Em Zuluaga CRNP [address] [place] [address] [place], [address] [place] [address] 04/09/2023 Office Visit Family Medicine Chris Asencio DO [address] [place] [address] 04/11/2023 Office Visit Gastroenterology Geovanna Bahena CRNP [address] [place] [address] 04/24/2023 Office Visit Pharmacy [facility] [address] [place] [address] 05/06/2023 [facility] [address] 06/11/2023 Office Visit Cardiology Sophy Sands PA-C [address] [place] [address] Scheduled Procedures Name Priority Associated Diagnoses Date/Ti me COLONOSCOPY FLEXIBLE PROXIMA L DIAGNOSTIC Recall Family history of colon cancer Health Maintenance Due Date Last Done Comments Zoster Vaccines (2 of 3) 05/07/2013 03/12/2013 COVID-19 Vaccine (3 - Pfizer series) 11/04/2020 09/09/2020, 08/19/2020 DIABETES-FOOT EXAM 05/23/2021 05/23/2020, 1 06/06/2018, 06/05/2018, Additional history exists Mammogram 01/17/2023 01/17/2022, 0 01/2022, 06/09/2019, Additional history exists Influenza Vaccine [...] Over 10/13/2023 10/12/2022 CKD HGB USE SMARTSET 62509 01/11/202401/10, 01/10/2023, 12/28/2022, Additional history exists CKD PHOS USE SMARTSET 43279 01/11/202412/25, 09/06/2022, 03/01/2022, Additional history exists COLONOSCOPY-EVERY [...] as of this encounter Visit Diagnoses Diagnosis HTN, goal below 140/90 Unspecified essential hypertension Venous insufficiency Unspecified venous (peripheral) insufficiency documented in this encounter Advance Directives Documents on File Type Date Recorded Patient Internal Medicine Hospitalist Expl anation POLST 10/20/2021 [place] [facility] FOR LIFE-SUSTAINING TREATMENT Latest Code Status on File Code Status Date Activated Date Inactivated Comments Full Code 03/30/2022 6:40 AM 03/30/2022 2:12 PM This order reflects the patients wishes and were consensually agreed upon. Question Answer Comments Discussion of Advance Directives occurred with: Patient Does the patient have a Living Will? No Does the patient have Health Care Power of Household Appliance Repairer? No Care Teams Tool Drawing Checker Relationship Specialty Start Date End Date Chris Asencio DO [address] [place] [address] PCP - General Family Medicine 01/07/18 documented as of this encounter
--- OUTSIDE RECORDS SUMMARY | 2023-06-20 00:41 | External Medical Summary ---
Author Name Unknown Address Unknown Organization [id number]:[place] [facility] [place] [facility] [place] [address] [place] [address] Laboratory Report Ordering Provider Test Date Status JESSICAHARLEY 01/24/2023 13:57:06 Final Observation Date Value Abnormality Reference (Units ) Status LDL, (direct) 01/24/2023 13:57:06 51 <=129 (mg/dL) Final LDL Cholesterol Reference Ra nges (mg/dL):
<70 Target level for high risk ASCVD patient
<100 Optimal for general population
100-129 Near optimal for general population
130-159 Borderline high
160-189 High
>=190 Very high Performing Location LABORATORY [facility] - [address] [place] [address]
--- OUTSIDE RECORDS SUMMARY | 2023-06-20 00:41 | External Medical Summary ---
Author Name Unknown Address Unknown Organization [id number]:LABORATORY [facility] - [address] [place] [address] Laboratory Report Ordering Provider Test Date Status HARLEY LOPEZ 01/24/2023 13:57:06 Final Observation Date Value Abnormality Reference (Units ) Status BUN 01/24/2023 13:57:06 18 6-20 (mg/dL) Final Creatinine 01/24/2023 13:57:06 1.2 Above high normal 0.5-1.0 (mg/dL) Final Glomerular filtration rate/1.73 sq M.predicted [Volume Rate/Area] in Serum, Plasma or Blood by Creatinine-based formula (CKD-EPI) 01/24/2023 13:57:06 49 Below low normal >=60 (mL/min) Final eGFR is calculated based on the CKD-EPI 2020 equation SODIUM 01/24/2023 13:57:06 138 135-146 (m mol/L) Final Potassium 01/24/2023 13:57:06 3.9 3.5-5.1 (m mol/L) Final Cl 01/24/2023 13:57:06 101 98-107 (mm ol/L) Final CO2 01/24/2023 13:57:06 26 22-32 (mmo l/L) Final Anion gap 01/24/2023 13:57:06 11 7-15 (mmol /L) Final Glucose 01/24/2023 13:57:06 129 Above high normal 70 -120 (mg/dL) Final Albumin 01/24/2023 13:57:06 4.1 3.8-5.0 (g /dL) Final AST (Aspartate aminotransferase) 01/24/2023 13:57:06 14 10-35 (U/L) Fin al Alk Phos 01/24/2023 13:57:06 143 Above high normal 35 -130 (U/L) Final Bilirubin, Total 01/24/2023 13:57:06 0.3 <=1 .2 (mg/dL) Final Calcium 01/24/2023 13:57:06 9.8 8.4-10.2 ( mg/dL) Final Protein 01/24/2023 13:57:06 7.8 6.0-8.3 (g /dL) Final ALT (Alanine aminotransferase) 01/24/2023 13:57:06 10 10-35 (U/L) Spencer galvez Performing Location LABORATORY [place] [facility] 0 - [address] [place] [address]
--- OUTSIDE RECORDS SUMMARY | 2023-06-20 00:41 | External Medical Summary | Summary of Care ---
Author Name Unknown Organization [facility] Address [address] [place] [address] Phone [phone] Care Team Providers Care Quantitative Associate Name Role Phone Chris Asencioanay Primary Care Provider Reason for Visit * Reason Comments Outpatient Testing Encounter Details Date Type Department Care Team Description 01/24/2023 Laboratory [facility] [address] [facility] [phone] [facility] [address] [facility] [address] Other iron deficiency anemia; Type 2 diabetes mellitus with stage 3b chronic kidney disease, with long-term current use of insulin ([facility]); Dyslipidemia, goal LDL below 70 Allergies Active Allergy Reactions Severity Noted Date [...] 1 Each 5 10/20/2020 Active Dexcom G6 Machine Hamper Maker DeviceIndications:Typ e 2 diabetes mellitus with [...] nephropathy, with long-term current use of insulin ([facility]) CHEW 1 TABLET BY MOUTH EVERY DAY [...] with neurological manifestations ([facility]) Inject 20 Units under the skin in [...] 08/06/2022 Active Additional Information Patient taking differently:2 [place] Each NostrilBID(AM/PM), Reported on 12/24/2022 Famotidine 40 [...] bedtime. 90 Tablet 3 10/23/2022 Active Methscopolamine [place] 2.5 MG Oral TabletIndications:Irr itable bowel syndrome with diarrhea TAKE 1 TAB UP TO 3 TIMES DAILY NEEDED FOR ABDOMINAL CRAMPS & DIARRHEA, 270 Tablet 1 11/08/2022 Active Additional Information Patient not taking.Reported on 01/04/2023 [place] In Vitro Strip (Glucose Blood)Indications:Typ e II [...] Signed 06/04/2014 Pranav Sanchez MD [facility] [place] Spinal pain 06/04/2014 02/02/2017 Type 2 diabetes [...] Medicine Chris Asencio DO [address] [place] [address] Type 2 diabetes mellitus with stage 3b chronic kidney disease, with long-term current use of insulin (HCC)*; Other iron deficiency anemia; Dyslipidemia, goal LDL below 70; Moderate persistent asthma without complication; KATERIN (obstructive sleep apnea); HTN, goal below 130/80; PVC's (premature ventricular contractions); Gastroesophageal reflux disease with esophagitis without hemorrhage; Hypertensive kidney disease with stage 3b chronic kidney disease (HCC); Chronic kidney disease, stage 3b (HCC); Bilateral lower extremity edema; Need for prophylactic vaccination and inoculation against influenza 01/29/2023 Immunization Ancillary [place], Flu Shot [facility] Prac [address] [place] [address] 02/01/2023 Home Visit [facility] Penny Parikh RN [address] [place] [address] 02/21/2023 Office Visit Gastroenterology Iris Cerrato PA-C [address] [place] [address] 02/21/2023 Office Visit Ophthalmology Ernie Rivers DO [address] [place] [address] 02/26/2023 Imaging Radiology 02/26/2023 Imaging Radiology 03/19/2023 Telemedicine [facility] Em Zuluaga CRNP [address] [place] [address] [place] [address] [place] [address] 04/09/2023 Office Visit Family Medicine Chris Asencio DO [address] [place] [address] 04/11/2023 Office Visit Gastroenterology Geovanna Bahena CRNP [address] [place] [address] 04/24/2023 Office Visit [facility]acy [facility] [address] [place] [address] 05/06/2023 Office Visit Nephrology Eric Day MD [address] [place] [address] 05/09/2023 Office Visit Family Medicine Chris Asencio, DO [address] [place] [address] 06/11/2023 Office Visit Cardiology Sophy Sands PA-C [address] [place] [address] 08/08/2023 Office Visit Family Medicine Taty Tobar CRNP [address] [place] [address] 11/07/2023 Office Visit Family [facility] Chris Asencio, [address] [place] [address] 02/06/2024 Office Visit Family [facility] Taty Tobar CRNP [address] [place] [address] Pending Results Name Type Priority Associated Diagnoses Date /Time CBC WITH WBC DIFFERENTIAL Lab Routine Other iron deficiency anemia 01/24/2023 1:57 PM EDT COMPREHENSIVE METABOLIC PANEL Lab Routine Type 2 diabetes mellitus with stage 3b chronic kidney disease, with long-term current use of insulin ([facility]) 01/24/2023 1:57 PM EDT HEMOGLOBIN A1C Lab Routine Type 2 diabetes mellitus with stage 3b chronic kidney disease, with long-term current use of insulin ([facility]) 01/24/2023 1:57 PM EDT ALBUMIN / CREATININE RATIO, URINE Lab Routine Type 2 diabetes mellitus with stage 3b chronic kidney disease, with long-term current use of insulin ([facility]) 01/24/2023 1:57 PM EDT LIPID PANEL WITH DIRECT LDL IF TG IS HIGH Lab Routine Dyslipidemia, goal LDL below 70 01/24/2023 1:57 PM EDT IRON SCREEN, INCLUDING TIBC Lab Routine Other iron deficiency anemia 01/24/2023 1:57 PM EDT CBC Lab Routine Other iron deficiency anemia 01/24/2023 1:57 PM EDT DIFFERENTIAL, AUTOMATED Lab Routine Other iron deficiency anemia 01/24/2023 1:57 PM EDT Scheduled Procedures Name Priority Associated Diagnoses Date/Ti me COLONOSCOPY FLEXIBLE PROXIMA L DIAGNOSTIC Recall Family history of colon cancer Health Maintenance Due Date Last Done Comments Zoster Vaccines (2 of 3) 05/07/2013 03/12/2013 COVID-19 Vaccine (3 - Pfizer series) 11/04/2020 09/09/2020, 08/19/2020 DIABETES-FOOT EXAM 05/23/2021 05/23/2020, 1 06/06/2018, 06/05/2018, Additional history exists Mammogram 01/17/2023 01/17/2022, 08/0 01/2022, 06/09/2019, Additional history exists HbA1c 03/08/2023 09/06/2022, 07/25, 03/01/2022, Additional history exists GFR 07/13/2023 01/10/2023, 12/25, 12/28/2022, Additional history exists DIABETES-EYE EXAM 08/10/2023 08/09/2022, , 04/13/2021, Additional history exists Albumin/Creatinine Ratio 09/07/202309/06/ 023, 11/24/2021, 11/15/2020, Additional history exists Depression Screening, Annual for Pts 12 and Over 10/13/2023 10/12/2022 CKD HGB USE SMARTSET 59310 01/11/202401/10, 01/10/2023, 12/28/2022, Additional history exists CKD PHOS USE SMARTSET 70684 01/11/202412/25, 09/06/2022, 03/01/2022, Additional history exists COLONOSCOPY-EVERY [...] long-term current use of insulin (HCC)- Primary Other iron deficiency anemia Dyslipidemia, goal LDL below 70 Other and [...] for prophylactic vaccination and inoculation against influenza Other iron deficiency anemia Type 2 diabetes mellitus with stage 3b chronic kidney disease, with long-term current use of insulin (HCC) Dyslipidemia, goal LDL below 70 Other and unspecified hyperlipidemia documented in this encounter Advance Directives Documents on File Type Date Recorded 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 No Care Teams Quantitative Associate Relationship Specialty Start Date End Date Chris Asencio, [address] [place] [address] PCP - General Family Medicine 01/07/18 documented as of this encounter
--- OUTSIDE RECORDS SUMMARY | 2023-06-20 00:41 | External Medical Summary ---
Author Name Unknown Address Unknown Organization K01:LAB[place]ORY [facility] [place] - [facility] [address] [place] [address] Laboratory Report Ordering Provider Test Date Status HARLEY LOPEZ 01/24/2023 13:57:06 Final Normal: <30 mg/g creatinine< br/>High: 30-300 mg/g creatinine
Very High: >300 mg/g creatinine
Nephrotic: >2200 mg/g creatinine Observation Date Value Abnormality Reference (Units) Status Albumin, Urine 01/24/2023 13:57:06 <1.20 (mg/dL) Final Creatinine, Urine 01/24/2023 13:57:06 23 (mg/dL) Final ALBUMIN/CREATININE RATIO, HIDE 01/24/2023 13:57:06 Uninterpretable Albumin/Creatinine ratio due to very low albumin and creatinine values. <30 (mg/g Creat) Final Performing Location LABORATORY [facility] [place] - [address] [place] [address]
--- OUTSIDE RECORDS SUMMARY | 2023-06-20 00:41 | External Medical Summary ---
Author Name Unknown Address Unknown Organization [id number]:LABORATORY [facility] [place] [address] [facility] [address] Laboratory Report Ordering Provider Test Date Status HARLEY LOPEZ 01/24/2023 13:57:06 Final Observation Date Value Abnormality Reference (Units ) Status HbA1C 01/24/2023 13:57:06 6.0 Above high normal 4. 0-5.6 (%) Final The use of HbA1c to monitor glycemic status is based on normal hemoglobin and HbA composition. This test should not be used in patients with abnormal hemoglobin that affects the half life of the red blood cell or the in vivo glycation rates. Glucose, estimated average 01/24/2023 13:57:06 126 Above high normal <126 (mg/dL) Spencer galvez Performing Location LAB[facility]ATORY [facility] [place] [facility] [address] [facility] [address] [address]
--- OUTSIDE RECORDS SUMMARY | 2023-06-20 00:41 | External Medical Summary ---
Author Name Unknown Address Unknown Organization K0G[facility] [address] [place] [address] Laboratory Report Ordering Provider Test Date Status HARLEY LOPEZ 01/24/2023 13:57:06 Final Observation Date Value Abnormality Reference (Units ) Status SYNC LEUKOCYTES IN BLOOD BY AUTOMATED COUNT 01/24/2023 13:57:06 5.07 4.00-10.80 (K/uL) Final Segs 01/24/2023 13:57:06 48.5 40.0-75.0 (%) Final Lymphs % 01/24/2023 13:57:06 37.5 18.0-42.0 (%) Final Monos 01/24/2023 13:57:06 8.9 1.0-11.0 (%) Final Eosinophils 01/24/2023 13:57:06 4.5 0.0-6.0 (%) Final Basos 01/24/2023 13:57:06 0.6 0.0-2.0 (%) Final Absolute Segs 01/24/2023 13:57:06 2.46 1.80-7.70 (K/uL) Final Lymphs, absolute 01/24/2023 13:57:06 1.90 1.00-4.80 (K/ul) Final Monos, Abs 01/24/2023 13:57:06 0.45 0.00-1.10 (K/uL) Final Eos, Abs 01/24/2023 13:57:06 0.23 0.00-0.70 (K/uL) Final Basos, Abs 01/24/2023 13:57:06 0.03 0.00-0.20 (K/uL) Final Performing Location LABORATORY [facility] 0 - [address] [place] [address]
--- OUTSIDE RECORDS SUMMARY | 2023-06-20 00:41 | External Medical Summary ---
Author Name Unknown Address Unknown Organization K01:[place] [facility] [place] [address] [facility] [address] Laboratory Report Ordering Provider Test Date Status HARLEY LOPEZ 01/24/2023 13:57:06 Final Observation Date Value Abnormality Reference (Units ) Status Triglyceride 01/24/2023 13:57:06 288 Above high normal <=174 (mg/dL) Final Triglyceride Reference Range s (mg/dL):
<150 Acceptable
150-174 Borderline high
175-499 High
>=500 Very high Cholesterol 01/24/2023 13:57:06 131 <200 (mg /dL) Final Total Cholesterol Reference Ranges (mg/dL):
<200 Desirable
200-239 Borderline high
>=240 High HDL 01/24/2023 13:57:06 33 Below low normal >49 (mg/dL) Final HDL Cholesterol Reference Ra nges (mg/dL):
>=60 High (Desirable)
<50 Low (Undesirable) For Females
<40 Low (Undesirable) For Males NON-HDL CHOLESTEROL 01/24/2023 13:57:06 98 <=159 (mg/dL) Final Non-HDL Cholesterol Referenc e Range (mg/dL):
<100 Target level for high risk ASCVD patient
<130 Optimal for general population
130-159 Near optimal for general population
160-189 Borderline High
190-219 High
>=220 Very High Performing Location [place]ORY [facility] [place] - [address] [facility] [address]
--- OUTSIDE RECORDS SUMMARY | 2023-06-20 00:42 | External Medical Summary | Summary of Care ---
Author Name Unknown Organization [facility] Address [address] [place] [address] Phone [phone] Care Team Providers Care Qi Specialist Name Role Phone Asencio Chris Fabiananay Primary Care Provider Reason for Visit * Reason Onset Date Comments Appointment 01/22/2023 Encounter Details Date Type Department Care Team Description 01/22/2023 Telephone [facility] [address] [place] [address] Services, Scheduling [address] [place] [address] Appointment (//) Allergies Active Allergy Reactions Severity Noted Date [...] 1 Each 5 10/20/2020 Active Dexcom G6 Social Psychologist DeviceIndications:Typ e 2 diabetes mellitus with stage [...] nephropathy, with long-term current use of insulin ([facility]) CHEW 1 TABLET BY MOUTH [...] hemoglobin A1c goal of 7.0%-8.0% ([facility]),Type 2 diabetes mellitus with stage 3a chronic kidney disease, with long-term current use of insulin ([facility]),Type II diabetes mellitus with neurological manifestations ([facility]) Inject 20 Units under the [...] 08/06/2022 Active Additional Information Patient taking differently:2 [place] Each NostrilBID(AM/PM), Reported on 12/24/2022 Famotidine 40 [...] Information Patient not taking.Reported on 12/24/2022 Methscopolamine [place] 2.5 MG Oral TabletIndications:Irr itable bowel syndrome with diarrhea TAKE 1 TAB UP TO 3 TIMES DAILY NEEDED FOR ABDOMINAL CRAMPS & DIARRHEA, 270 Tablet 1 11/08/2022 Active Additional Information Patient not taking.Reported on 01/04/2023 One[employer] Verio In Vitro Strip (Glucose Blood)Indications:Typ [...] 018 Overview: Signed 06/04/2014 Pranav Sanchez MD [facility] [place] Spinal pain 06/04/2014 02/02/2017 Type 2 diabetes [...] mRNA, LNP-s, No Pre serve, 2-Dose Series ([employer]) 09/09/2020,08/19/2020 Pneumococcal Conjugate Vacc, 13 Valent (Prevnar) [...] Miscellaneous Notes * Telephone Encounter - KATERIN Pang - 01/22/2023 9:23 AM EDT Per Request to schedule 2/3 month telemed... Called s/w pt she advised 03/19 at 11:00am is a good date and time. She also wanted to s/w a nurse about iron medication. Transfer to [place] documented in this encounter Plan of Treatment Upcoming Encounters Date Type Specialty Care Team Description 01/24/2023 Office Visit Family Medicine Chris Asencio, [address] [place] [address] 01/29/2023 Immunization Ancillary Amira, Flu Shot Clinic Fam Prac [address] [place] [address] 02/01/2023 Home Visit [facility] Penny Parikh RN [address] [place] [address] 02/21/2023 Office Visit Gastroenterology Iris Cerrato PA-C [address] [place] [address] 02/21/2023 Office Visit Ophthalmology Ernie Rivers DO [address] [place] [address] 02/26/2023 Imaging Radiology 02/26/2023 Imaging Radiology 03/19/2023 Telemedicine [facility] Em Zuluaga CRNP [address] [place] [address] [place] [address] [place] [address] 04/09/2023 Office Visit Family Medicine Chris Asencio DO [address] [place] [address] 04/11/2023 Office Visit Gastroenterology Geovanna Bahena CRNP [address] [place] [address] 04/24/2023 Office Visit Pharmacy Garza, [facility] [address] [place] [address] 05/06/2023 Office Visit Nephrology Eric Day MD [address] [facility] [place] [address] 06/11/2023 Office Visit Cardiology Sophy Sands PA-C [address] [place] [address] Scheduled Procedures Name Priority Associated Diagnoses Date/Ti me COLONOSCOPY FLEXIBLE PROXIMA L DIAGNOSTIC Recall Family history of colon cancer Health Maintenance Due Date Last Done Comments Zoster Vaccines (2 of 3) 05/07/2013 03/12/2013 COVID-19 Vaccine (3 - Pfizer series) 11/04/2020 09/09/2020, 08/19/2020 DIABETES-FOOT EXAM 05/23/2021 05/23/2020, 1 06/06/2018, 06/05/2018, Additional history exists Mammogram 01/17/2023 01/17/2022, 0801/2022, 06/09/2019, Additional history exists Influenza Vaccine (FLU shot) (#1) 2023 03/01/2022, 03/27/2021, 03/04/2020, Additional history exists HbA1c 03/08/2023 09/06/2022, 07/25, 03/01/2022, Additional history exists GFR 07/13/2023 01/10/2023, 12/25, 12/28/2022, Additional history exists DIABETES-EYE EXAM 08/10/2023 08/09/2022, , 04/13/2021, Additional history exists Albumin/Creatinine Ratio 09/07/202309/06/2 023, 11/24/2021, 11/15/2020, Additional history exists Depression Screening, Annual for Pts 12 and Over 10/13/2023 10/12/2022 CKD HGB USE SMARTSET 59378 01/11/202401/10, 01/10/2023, 12/28/2022, Additional history exists CKD PHOS USE SMARTSET 29910 01/11/202412/25, 09/06/2022, 03/01/2022, Additional history exists COLONOSCOPY-EVERY [...] Documents on File Type Date Recorded 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 No Care Teams Qi Specialist Relationship Specialty Start Date End Date Chris Asencio DO [address] [place] [address] PCP - General Family Medicine 01/07/18 documented as of this encounter
--- OUTSIDE RECORDS SUMMARY | 2023-06-20 00:42 | External Medical Summary | Summary of Care ---
Author Name Unknown Organization [facility] Address [address] [place] [address] Phone [phone] Care Team Providers Care Strike Off Machine Operator Name Role Phone Chris Asencio DO Primary Care Provider Reason for Visit * Reason Onset Date Comments Advice 01/21/2023 Encounter Details Date Type Department Care Team Description 01/21/2023 Telephone Family Practice [facility] [address] [facility] [place] [address] Chris Asencio DO [address] [facility] [place] [address] Advice Allergies Active Allergy Reactions Severity Noted [...] 1 Each 5 10/20/2020 Active Dexcom G6 Java Solutions Architect DeviceIndications:Typ e 2 diabetes mellitus with stage [...] 08/06/2022 Active Additional Information Patient taking differently:2 [place] Each NostrilBID(AM/PM), Reported on 12/24/2022 Famotidine 40 [...] Patient not taking.Reported on 12/24/2022 Methscopolamine [place] 2.5 MG Oral TabletIndications:Irr itable bowel syndrome with diarrhea TAKE 1 TAB UP TO 3 TIMES DAILY NEEDED FOR ABDOMINAL CRAMPS & DIARRHEA, 270 Tablet 1 11/08/2022 Active Additional Information Patient not taking.Reported on 01/04/2023 [email or web address] In Vitro Strip (Glucose Blood)Indications:Typ e II [...] Asthma exacerbation 10/17/2016 02/02/2017 MEDICATION USE AGREEMENT 06/04/201405/14/ 018 Overview: Signed 06/04/2014 Pranav Sanchez MD [facility] Pharmacy [place] Spinal pain 06/04/2014 02/02/2017 Type 2 diabetes [...] mRNA, LNP-s, No Pre serve, 2-Dose Series ([employer]) 09/09/2020,08/19/2020 Pneumococcal Conjugate Vacc, 13 Valent (Prevnar) [...] Notes * Telephone Encounter - Salud Asencio - 01/22/2023 8:20 AM EDT Appt scheduled with pt * Telephone Encounter - KATERIN Amador - 01/21/2023 4:54 PM EDT Patient called. She did not know she should have a hospital discharge appointment. She is not bouncing back after her severe kidney issues that hospitalized her. She thinks she came home from [facility] [place] on 12-22-2022. Patient would like to see Dr Asencio sooner thant 04-09-2023 and she does not have a portal for [employer]. Please call the patient regarding follow up, either number. Thank you. documented in this encounter Plan of Treatment Upcoming Encounters Date Type Specialty Care Team Description 01/24/2023 Office Visit Family Chris Myles DO [address] [place] [address] 01/29/2023 Immunization Ancillary Am[place], Flu Shot Clinic Fam Prac [address] [place] [address] 02/01/2023 Home Visit [facility] Penny Parikh RN [address] [place] [address] 02/21/2023 Office Visit Gastroenterology Iris Cerrato PA-C [address] [place] [address] 02/21/2023 Office Visit Ophthalmology Ernie Rivers, DO [address] [place] [address] 02/26/2023 Imaging Radiology 02/26/2023 Imaging Radiology 04/09/2023 Office Visit Family Chris Myles DO [address] [place] [address] 04/11/2023 Office Visit Gastroenterology Geovanna Bahena CRNP [address] [place] [address] 04/24/2023 Office Visit Pharmacy Janet Garza [facility] Amira [address] [place] [address] 05/06/2023 [facility] [address] 06/11/2023 Office Visit Cardiology Sophy Sands PA-C [address] [place] [address] Scheduled Procedures Name Priority Associated Diagnoses Date/Ti [...] Over 10/13/2023 10/12/2022 CKD HGB USE SMARTSET 44180 01/11/202401/10, 01/10/2023, 12/28/2022, Additional history exists CKD PHOS USE SMARTSET 85951 01/11/202412/25, 09/06/2022, 03/01/2022, Additional history exists COLONOSCOPY-EVERY 5 YRS AGES 18-100 03/17/2026 03/17/2021, 03/17/2021, 12/07/2014, Additional history exists DTaP,Tdap,and Td Vaccines (3 - Td or Tdap) 04/16/2026 04/16/2016, 04/12/2006 Lipid Panel 09/07/2027 09/06/2022, 100 10/2021, 08/23/2021, Additional history exists DXA Scan [...] Documents on File Type Date Recorded 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 Question Answer Comments Discussion of Advance Directives occurred with: Patient Does the patient have a Living Will? No Does the patient have Health Care Power of Manager Intermediate? No Care Teams Strike Off Machine Operator Relationship Specialty Start Date End Date Chris Asencio DO [address] [place] [address] PCP - General Family Medicine 01/07/18 documented as of this encounter
--- OUTSIDE RECORDS SUMMARY | 2023-06-20 00:42 | External Medical Summary | Summary of Care ---
Author Name Unknown Organization [facility] Address [address] [place] [address] Phone [phone] Care Team Providers Care Batter Mixer Name Role Phone Asencio Chris Fabiananay Primary Care Provider Reason for Visit * Reason Onset Date Comments [facility]: Maintenance 01/17/2023 Encounter Details Date Type Department Care Team Description 01/17/2023 Scheduled Telephone [facility], [facility] [address] [facility] [place] [address] Coordinator, [facility] [address] [facility] [place] [address] Allergies Active Allergy Reactions Severity Noted Date [...] as of this encounter (statuses as of 01/17/2023) Medications Medication Sig Dispensed Refills Start Date [...] 1 Each 5 10/20/2020 Active Dexcom G6 Indoor Plant Technician DeviceIndications:Typ e 2 diabetes mellitus with [...] nephropathy, with long-term current use of insulin ([facility]) CHEW 1 TABLET BY MOUTH EVERY DAY [...] mellitus with hemoglobin A1c goal of 7.0%-8.0% ([facility]),Type 2 diabetes mellitus with stage 3a chronic kidney disease, with long-term current use of insulin ([facility]),Type II diabetes mellitus with neurological manifestations ([facility]) Inject 20 Units under the skin in [...] 08/06/2022 Active Additional Information Patient taking differently:2 [place] Each NostrilBID(AM/PM), Reported on 12/24/2022 Famotidine 40 [...] Information Patient not taking.Reported on 12/24/2022 Methscopolamine [place] 2.5 MG Oral TabletIndications:Irr itable bowel syndrome with diarrhea TAKE 1 TAB UP TO 3 TIMES DAILY NEEDED FOR ABDOMINAL CRAMPS & DIARRHEA, 270 Tablet 1 11/08/2022 Active Additional Information Patient not taking.Reported on 01/04/2023 [email or web address] In Vitro Strip (Glucose Blood)Indications:Typ e II [...] NIGHTLY NEEDED 30 g 0 01/02/2023 Active Nitrofurantoin Monohyd Macro 100 MG Oral Capsule (Macrobid)Indications :Acute cystitis without hematuria Take 1 Capsule by mouth in the morning and 1 Capsule before bedtime. Do all this for 7 days. With food until gone. 14 Capsule 0 01/11/2023 Active Furosemide 40 MG Oral Tablet (Lasix)Indications:Ve [...] as of this encounter (statuses as of 01/17/2023) Active Problems Patient Care Coordination No te [...] as of this encounter (statuses as of 01/17/2023) Resolved Problems Problem Noted Date Resolved Date [...] 018 Overview: Signed 06/04/2014 Pranav Sanchez MD [facility] Pharm[facility] [place] Spinal pain 06/04/2014 02/02/2017 Type 2 diabetes [...] as of this encounter (statuses as of 01/17/2023) Immunizations Name Administration Dates Next Due COVID-19 mRNA, LNP-s, No Pre serve, 2-Dose Series ([employer]) 09/09/2020,08/19/2020 Pneumococcal Conjugate Vacc, 13 Valent (Prevnar) [...] encounter Miscellaneous Notes * Telephone Encounter - Carrie Benitez RN - 01/17/2023 3:57 PM EDT Pt is returning PC to [facility]. Advised her that repeat urine was good- no growth. Pt wanted to know her H/H. She slept until 12pm today. She was tired from not sleeping at night. Advised her to call [facility] for any worsening sxs. * Telephone Encounter - Juany Louie RN - 01/17/2023 12:46 PM EDT [facility] Telephonic Nurse Follow-Up Call [facility] Subprogram: Focused Care Management (3-9 months) Follow Up Call Type: Routine follow up call / Status Check Acute issue requiring follow-up call: Other: f/u on urine cx Objective: 01/15/2023 9:00 AM 01/11/2023 11:56 AM 01/04/2023 8:55 AM 01/03/2023 1:15 PM 12/27/2022 11:52 AM VITALS ACROSS ENCOUNTERS BP 114/72 96/60 119/59 122/70 92/60 Pulse 72 77 77 80 80 Weight 101.6 kg 102.5 kg 105.7 kg BMI 33.08 kg/m2 33.37 kg/m2 34.41 kg/m2 Lab Results Component Value Date BLOOD, URINE - [facility] Negative 01/11/2023 PROTEIN, RANDOM URINE - [facility] 22 01/10/2023 PROTEIN, URINE - [facility] Negative 01/11/2023 PROTEIN/ CREATININE RATIO, URINE - [facility] 232 (H) 01/10/2023 ESTERASE, URINE - [facility] Moderate (A) 01/11/2023 WBC AUTO - [facility] 6.63 01/10/2023 WBC CLUMPS, URINE -[facility] Present (A) 01/11/2023 WBC, URINE - [facility] 50+ (A) 01/11/2023 NITRITE, URINE - [facility] Negative 01/11/2023 QUANT URINE CULTURE GROWTH No significant growth 01/15/2023 Lab Results Component Value Date WBC AUTO - [facility] 6.63 01/10/2023 HGB - [facility] 10.4 (L) 01/10/2023 PLATELET AUTO - [facility] 308 01/10/2023 Lab Results Component Value Date SODIUM - [facility] 135 01/10/2023 POTASSIUM - [facility] 3.8 01/10/2023 MAGNESIUM - [facility] 2.2 01/10/2023 CO2 - [facility] 23 01/10/2023 CREATININE - [facility] 1.6 (H) 01/10/2023 ESTIMATED GLOMERULAR FILTRATION RATE - [facility] 35 (L) 01/10/2023 ALBUMIN - [facility] 3.9 01/10/2023 No results found for: PRO BNP, LEFT VENTRICULAR EJECTION FRACTION Remote Patient Monitoring: NONE Oxygen Needs: NO supplemental oxygen needs identified DME Needs: NO DME needs identified Medications: New medication(s) added: Nitrofurantoin Subjective: Condition Status: LMOM requesting return call to [facility] Current Concerns: Urine culture report reveals no growth Disposition: Issue resolved. All appropriate follow up scheduled. Future Visits Scheduled: Future Appointments-next 60 days Date/Time Provider Specialty Dept Phone 01/17/2023 1:00 PM [facility] Landscaper [facility] [phone] 02/01/2023 2:30 PM Penny Parikh RN [facility] [phone] 02/21/2023 12:00 PM (Arrive by 11:45 AM) Iris Cerrato PA-C Gastroenterology [phone] 02/21/2023 2:15 PM Ernie Rivers DO Ophthalmology [phone] 02/26/2023 12:30 PM (Arrive by 12:15 PM) [email or web address] Radiology [phone] 02/26/2023 1:30 PM (Arrive by 1:15 PM) [address] Radiology [phone] 04/09/2023 3:20 PM (Arrive by 3:05 PM) Chris Asencio DO Family Medicine [phone] 04/11/2023 3:00 PM (Arrive by 2:45 PM) ADELA Puentes Gastroenterology [phone] 04/24/2023 2:00 PM [facility] [phone] 05/06/2023 3:20 PM (Arrive by 3:05 PM) Eric Day MD Nephrology [phone] 06/11/2023 1:30 PM (Arrive by 1:15 PM) Sophy Sands PA-C Cardiology [phone] Juany Louie, RN documented in this encounter Plan of Treatment Upcoming Encounters Date Type Specialty Care Team Description 02/01/2023 Home Visit [facility] Penny Parikh, RN [address] [place] [address] 02/21/2023 Office Visit Gastroenterology Iris Cerrato PA-C [address] [place] [address] 02/21/2023 Office Visit Ophthalmology Ernie Rivers DO [facility] [place] [address] 02/26/2023 Imaging Radiology 02/26/2023 Imaging Radiology 04/09/2023 Office Visit Family Medicine Chris Asencio DO [address] [place] [address] 04/11/2023 Office Visit Gastroenterology Geovanna Bahena CRNP [address] [place] [address] 04/24/2023 Office Visit Pharmacy [facility] [address] [place] [address] 05/06/2023 [facility] [address] 06/11/2023 Office Visit Cardiology Sophy Sands PA-C [address] [place] [address] Scheduled Procedures Name Priority Associated Diagnoses Date/Ti [...] Over 10/13/2023 10/12/2022 CKD HGB USE SMARTSET 60121 01/11/202401/10, 01/10/2023, 12/28/2022, Additional history exists CKD PHOS USE SMARTSET 07684 01/11/202412/25, 09/06/2022, 03/01/2022, Additional history exists COLONOSCOPY-EVERY [...] Documents on File Type Date Recorded Patient Service Operator Expl anation POLST 10/20/2021 [place] OR [facility] FOR LIFE-SUSTAINING [...] the patient have Health Care Power of Android Framework Developer? No Care Teams Batter Mixer Relationship Specialty Start Date End Date Chris Asencio DO [address] [place] [address] PCP - General Family Medicine 01/07/18 documented as of this encounter
--- OUTSIDE RECORDS SUMMARY | 2023-06-20 00:42 | External Medical Summary | Summary of Care ---
Author Name Unknown Organization [facility] Address [address] [facility] [place] [address] Phone [phone] Care Team Providers Care Equine Pharmacology Technician Name Role Phone Chris Asencioanay Primary Care Provider Reason for Visit * Reason Onset Date Comments Advice 01/21/2023 Encounter Details Date Type Department Care Team Description 01/21/2023 Telephone [facility], [facility] [address] [facility] [place] [address] Coordinator, [facility] [address] [facility] [place] [address] Advice Allergies Active Allergy Reactions Severity Noted [...] as of this encounter (statuses as of 01/21/2023) Medications Medication Sig Dispensed Refills Start Date [...] 1 Each 5 10/20/2020 Active Dexcom G6 Computer Network Specialist DeviceIndications:Typ e 2 diabetes mellitus with [...] nephropathy, with long-term current use of insulin ([facility]) CHEW 1 TABLET BY MOUTH EVERY [...] mellitus with hemoglobin A1c goal of 7.0%-8.0% ([facility]),Type 2 diabetes mellitus with stage 3a chronic kidney disease, with long-term current use of insulin ([facility]),Type II diabetes mellitus with neurological manifestations ([facility]) Inject 20 Units under the skin [...] 08/06/2022 Active Additional Information Patient taking differently:2 [place] Each NostrilBID(AM/PM), Reported on 12/24/2022 Famotidine 40 [...] Information Patient not taking.Reported on 12/24/2022 Methscopolamine [place] 2.5 MG Oral TabletIndications:Irr itable bowel syndrome [...] as of this encounter (statuses as of 01/21/2023) Active Problems Patient Care Coordination No te [...] as of this encounter (statuses as of 01/21/2023) Resolved Problems Problem Noted Date Resolved Date [...] Pranav Sanchez MD [facility] Pharm[facility] [place] Spinal pain 06/04/2014 02/02/2017 Type 2 diabetes [...] as of this encounter (statuses as of 01/21/2023) Immunizations Name Administration Dates Next Due COVID-19 mRNA, LNP-s, No Pre serve, 2-Dose Series ([place]) 09/09/2020,08/19/2020 Pneumococcal Conjugate Vacc, 13 Valent (Prevnar) [...] encounter Miscellaneous Notes * Telephone Encounter - Juany Louie RN - 01/21/2023 11:31 AM EDT Received in basket message re: flu vaccine. Outgoing call to pt. She states that she has a nurse appt tomorrow and was asking if she can have them give her the flu vaccine? Advised she has no appt with [facility]. Inquired if she has a home health agency that she perhaps has an appt with tomorrow? She states she has [facility] [phone]. Outgoing call to [facility] and spoke with clinical coordinator. The pt does get therapy from their agency. Since the pt does not receive SN she would not be able to receive a flu vaccine from their agency. Outgoing call to pt to notify her of the above. Advised pt that I will notify her [facility] RNCM that she is requesting to receive the flu vaccine. Informed pt that her next [facility] appt is on 02/01/23 2:30pm with Paula Parikh RNCM. Pt is agreeable to same. Juany NICKERSON, RN [facility] Intake Triage Coordinator [phone] * Telephone Encounter - KATERIN Morin - 01/21/2023 11:03 AM EDT Patient is asking if the home health nurse can give her the flu shot, states bateman an appointment tomorrow. Patient does not want to come to clinic if not necessary. Received letter stating she is at high risk for the flu. Patient can be reached at [phone] documented in this encounter Plan of Treatment Upcoming Encounters Date Type Specialty Care Team Description 02/01/2023 Home Visit [facility] Penny Parikh RN [address] [place] [address] 02/21/2023 Office Visit Gastroenterology Iris Cerrato PA-C [address] [place] [address] 02/21/2023 Office Visit Ophthalmology Ernie Rivers, [address] [facility] [place] [address] 02/26/2023 Imaging Radiology 02/26/2023 Imaging Radiology 04/09/2023 Office Visit Family Medicine Chris Asencio DO [address] [place] [address] 04/11/2023 Office Visit Gastroenterology Geovanna Bahena CRNP [address] [place] [address] 04/24/2023 Office Visit Pharmacy [facility] [address] [place] [address] 05/06/2023 Office Visit Nephrology Eric Day MD [address] [facility], [place] [address] 06/11/2023 Office Visit Cardiology Sophy Sands PA-C [address] [place] [address] Scheduled Procedures Name Priority Associated Diagnoses Date/Ti [...] Over 10/13/2023 10/12/2022 CKD HGB USE SMARTSET 93247 01/11/202401/10, 01/10/2023, 12/28/2022, Additional history exists CKD PHOS USE SMARTSET 89288 01/11/202412/25, 09/06/2022, 03/01/2022, Additional history exists COLONOSCOPY-EVERY [...] Documents on File Type Date Recorded Patient Guitar Maker Hand Expl anation POLST 10/20/2021 [place] OR [facility] FOR LIFE-SUSTAINING TREATMENT Latest Code Status on File Code Status Date Activated Date Inactivated Comments Full Code 03/30/2022 6:40 AM 03/30/2022 2:12 PM This order reflects the patients wishes and were consensually agreed upon. Question Answer Comments Discussion of Advance Directives occurred with: Patient Does the patient have a Living Will? No Does the patient have Health Care Power of Barber Instructor? No Care Teams Equine Pharmacology Technician Relationship Specialty Start Date End Date Chris Asencio DO [address] [place] [address] PCP - General Family Medicine 01/07/18 documented as of this encounter
--- OUTSIDE RECORDS SUMMARY | 2023-06-20 00:42 | External Medical Summary | Summary of Care ---
Author Name Unknown Organization [facility] Address [address] [place] [address] Phone [phone] Care Team Providers Care Signalling And Communications Engineer Name Role Phone Asencio Chris Fabiananay Primary Care Provider Reason for Visit * Reason Onset Date Comments [facility]: Maintenance 01/17/2023 Encounter Details Date Type Department Care Team Description 01/17/2023 Scheduled Telephone [facility], [facility] [address] [facility] [place] [address] Coordinator, [facility] [address] [facility] [place] [address] Allergies Active Allergy Reactions Severity Noted Date [...] 1 Each 5 10/20/2020 Active Dexcom G6 [place] Machine Operator DeviceIndications:Typ e 2 diabetes mellitus with [...] nephropathy, with long-term current use of insulin ([facility]) CHEW 1 TABLET BY MOUTH EVERY DAY [...] mellitus with hemoglobin A1c goal of 7.0%-8.0% ([facility]),Type 2 diabetes mellitus with stage 3a chronic kidney disease, with long-term current use of insulin ([facility]),Type II diabetes mellitus with neurological manifestations ([facility]) Inject 20 Units under the skin in [...] 08/06/2022 Active Additional Information Patient taking differently:2 [place] Each NostrilBID(AM/PM), Reported on 12/24/2022 Famotidine 40 [...] Information Patient not taking.Reported on 12/24/2022 Methscopolamine [place] 2.5 MG Oral TabletIndications:Irr itable bowel syndrome with diarrhea TAKE 1 TAB UP TO 3 TIMES DAILY NEEDED FOR ABDOMINAL CRAMPS & DIARRHEA, 270 Tablet 1 11/08/2022 Active Additional Information Patient not taking.Reported on 01/04/2023 One[employer] Light In Vitro Strip (Glucose Blood)Indications:Typ e II [...] Overview: Signed 06/04/2014 Pranav Sanchez MD [facility] Pharmacy [place] Spinal pain 06/04/2014 02/02/2017 Type 2 diabetes [...] mRNA, LNP-s, No Pre serve, 2-Dose Series ([employer]) 09/09/2020,08/19/2020 Pneumococcal Conjugate Vacc, 13 Valent (Prevnar) [...] Louie RN - 01/17/2023 12:46 PM EDT [facility] Telephonic Nurse Follow-Up Call [facility] Subprogram: Focused Care Management (3-9 months) Follow [...] Condition Status: LMOM requesting return call to [facility] Current Concerns: Urine culture report reveals no growth Disposition: Issue resolved. All appropriate follow up scheduled. Future Visits Scheduled: Future Appointments-next 60 days Date/Time Provider Specialty Dept Phone 01/17/2023 1:00 PM [facility] Davon Manager [facility] [phone] 02/01/2023 2:30 PM [facility] [phone] 02/21/2023 12:00 PM (Arrive by 11:45 AM) Iris Cerrato PA-C Gastroenterology [phone] 02/21/2023 2:15 PM Ernie Rivers DO Ophthalmology [phone] 02/26/2023 12:30 PM (Arrive by 12:15 PM) [email or web address] Radiology [phone] 02/26/2023 1:30 PM (Arrive by 1:15 PM) [address] Radiology [phone] 04/09/2023 3:20 PM (Arrive by 3:05 PM) Chris Asencio DO Family Medicine [phone] 04/11/2023 3:00 PM (Arrive by 2:45 PM) ADELA Puentes Gastroenterology [phone] 04/24/2023 2:00 PM [facility] [phone] 05/06/2023 3:20 PM (Arrive by 3:05 PM) Eric Day MD Nephrology [phone] 06/11/2023 1:30 PM (Arrive by 1:15 PM) Sophy Sands PA-C Cardiology [phone] Juany Louie RN documented in this encounter Plan of Treatment Upcoming Encounters Date Type Specialty Care Team Description 02/01/2023 Home [facility] Penny Parikh RN [address] [place] [address] 02/21/2023 Office Visit Gastroenterology Iris Cerrato PA-C [address] [place] [address] 02/21/2023 Office Visit Ophthalmology Ernie Rivers, DO [address] [facility] [place] [address] 02/26/2023 Imaging Radiology 02/26/2023 Imaging Radiology 04/09/2023 Office Visit Family Medicine Chris Asencio DO [address] [place] [address] 04/11/2023 Office Visit Gastroenterology Geovanna Bahena CRNP [address] [place] [address] 04/24/2023 Office Visit Pharmacy [facility] [address] [place] [address] 05/06/2023 Office Visit Nephrology Eric Day MD [address] [facility], [place] [address] 06/11/2023 Office Visit Cardiology Sophy Sands PA-C [address] [place] [address] Scheduled Procedures Name Priority Associated Diagnoses Date/Ti [...] Over 10/13/2023 10/12/2022 CKD HGB USE SMARTSET 57280 01/11/202401/10, 01/10/2023, 12/28/2022, Additional history exists CKD PHOS USE SMARTSET 46110 01/11/202412/25, 09/06/2022, 03/01/2022, Additional history exists COLONOSCOPY-EVERY [...] Documents on File Type Date Recorded Patient Data Technician Expl anation POLST 10/20/2021 [place] OR [facility] FOR LIFE-SUSTAINING TREATMENT Latest Code Status on File Code Status Date Activated Date Inactivated Comments Full Code 03/30/2022 6:40 AM 03/30/2022 2:12 PM This order reflects the patients wishes and were consensually agreed upon. Question Answer Comments Discussion of Advance Directives occurred with: Patient Does the patient have a Living Will? No Does the patient have Health Care Power of Paid Internship? No Care Teams Signalling And Communications Engineer Relationship Specialty Start Date End Date hCris Asencio DO [address] [place] [address] PCP - General Family Medicine 01/07/18 documented as of this encounter
--- OUTSIDE RECORDS SUMMARY | 2023-06-20 00:43 | External Medical Summary | Summary of Care ---
Author Name Unknown Organization [facility] Address [address] [place] [address] Phone [phone] Care Team Providers Care Shirt Maker Name Role Phone Jessica Asencio DO Primary Care Provider Reason for Visit * Reason Comments eRx-Medication Refill Encounter Details Date Type Department Care Team Description 01/16/2023 Refill Family Practice [facility] [address] [place] [address] Jessica Asencio DO [address] [place] [address] Venous insufficiency; HTN, goal below 140/90 Allergies Active Allergy Reactions Severity Noted Date [...] as of this encounter (statuses as of 01/16/2023) Medications Medication Sig Dispensed Refills Start Date [...] 1 Each 5 1 Active Dexcom G6 Placer Miner DeviceIndications:T ype 2 diabetes mellitus with stage [...] nephropathy, with long-term current use of insulin ([facility]) CHEW 1 TABLET BY MOUTH [...] THE MORNING 90 Tablet 3 2 Active Ferate 240 (27 Fe) MG Oral Tablet (Ferrous Gluconate) TAKE BY MOUTH 1 TABLET DAILY . 90 Tablet 3 2 Active Toujeo SoloStar 300 UNIT/ML Subcutaneous Solution Pen-injector (Insulin Glargine (1 Unit Dial))Indications:T ype 2 diabetes mellitus with hemoglobin A1c goal of 7.0%-8.0% ([facility]),Type 2 diabetes mellitus with stage 3a chronic kidney disease, with long-term current use of insulin ([facility]),Type II diabetes mellitus with neurological manifestations ([facility]) Inject 20 Units under the [...] 3 Active Additional Information Patient taking differently:2 [place] Each NostrilBID(AM/PM), Reported on 12/24/2022 Famotidine 40 [...] A DAY. 180 Tablet 2 3 Active EpiPen 2-Ronni 0.3 MG/0.3ML [...] FOR NAUSEA 30 Tablet 0 3 Active Diphenoxylate-Atrop ine 2.5-0.025 MG Oral [...] at bedtime. 90 Tablet 3 3 Active Ozempic (2 MG/DOSE) 8 MG/3ML Subcutaneous Solution Pen-injector (Semaglutide (2 MG/DOSE)) Inject 0.75 mL under the skin once a week. 9 mL 3 3 Active Additional Information Patient not taking.Reported on 12/24/2022 Methscopolamine [place] 2.5 MG Oral TabletIndications:I rritable bowel syndrome with diarrhea TAKE 1 TAB UP TO 3 TIMES DAILY NEEDED FOR ABDOMINAL CRAMPS & DIARRHEA, 270 Tablet 1 3 Active Additional Information Patient not taking.Reported on 01/04/2023 [facility] In Vitro Strip (Glucose Blood)Indications:T ype II [...] BODY NIGHTLY NEEDED 30 g 0 3 Active Nitrofurantoin Monohyd Macro 100 MG Oral Capsule (Macrobid)Indicatio ns:Acute cystitis without hematuria Take 1 Capsule by mouth in the morning and 1 Capsule before bedtime. Do all this for 7 days. With food until gone. 14 Capsule 0 3 01/19/20 23 Active Furosemide 40 MG Oral Tablet (Lasix)Indications: Venous insufficiency,HTN, goal below 140/90 TAKE 1 TABLET BY MOUTH EVERY DAY 90 Tablet 3 3 Active Furosemide 40 MG Oral Tablet (Lasix)Indications: Venous insufficiency,HTN, goal below 140/90 TAKE 1 TABLET BY MOUTH EVERY DAY 90 Tablet 3 2 01/17/20 23 Discontinued Hospital, Clinic, or Other Facility Administered Medication Ordered Dose Route Frequency Start Date End Date Status albuterol sulfate (PROVENTIL) (2.5 MG/3ML) 0.083% inhalation solution 2.5 mgIndications:Moderate persistent asthma without complication 2.5 mg NEBULIZER Q4H PRN 08/13/2018 Active documented as of this encounter (statuses as of 01/16/2023) Active Problems Patient Care Coordination No te [...] as of this encounter (statuses as of 01/16/2023) Resolved Problems Problem Noted Date Resolved Date [...] 018 Overview: Signed 06/04/2014 Pranav Sanchez MD [facility] [place] Spinal pain 06/04/2014 02/02/2017 Type 2 diabetes [...] as of this encounter (statuses as of 01/16/2023) Immunizations Name Administration Dates Next Due COVID-19 mRNA, LNP-s, No Pre serve, 2-Dose Series ([email or web address]) 09/09/2020,08/19/2020 Pneumococcal Conjugate Vacc, 13 Valent (Prevnar) [...] encounter Miscellaneous Notes * Telephone Encounter - Jose De Jesus Morton [facility] - 01/16/2023 5:54 PM EDTSigned Prescriptions: Disp Refills Furosemide 40 MG Oral Tablet (Lasix) 90 Tab*3 Sig: TAKE 1 TABLETBY MOUTH EVERY DAYAuthorizing Provider: JESSICA ASENCIO User: JOSE DE JESUS MORTON----- documented in this encounter Plan of Treatment Upcoming Encounters Date Type Specialty Care Team Description 01/17/2023 Scheduled Telephone [facility], [facility] [address] [place] [address] 02/01/2023 [facility] Penny Parikh RN [address] [place] [address] 02/21/2023 Office Visit Gastroenterology Iris Cerrato PA-C [address] [place] [address] 02/21/2023 Office Visit Ophthalmology Ernie Rivers DO [address] [place] [address] 02/26/2023 Imaging Radiology 02/26/2023 Imaging Radiology 04/09/2023 Office Visit Family Medicine Jessica Asencio DO [address] [place] [address] 04/11/2023 Office Visit Gastroenterology Geovanna Bahena CRNP [address] [place] [address] 04/24/2023 Office Visit [facility] [address] [place] [address] 05/06/2023 Office Visit Nephrology Eric Day MD [address] [facility] [place] [address] 06/11/2023 Office Visit Cardiology Sophy Sands PA-C [address] [place] [address] Scheduled Procedures Name Priority Associated Diagnoses Date/Ti [...] Over 10/13/2023 10/12/2022 CKD HGB USE SMARTSET 19184 01/11/202401/10, 01/10/2023, 12/28/2022, Additional history exists CKD PHOS USE SMARTSET 49692 01/11/202412/25, 09/06/2022, 03/01/2022, Additional history exists COLONOSCOPY-EVERY [...] as of this encounter Visit Diagnoses Diagnosis Venous insufficiency Unspecified venous (peripheral) insufficiency HTN, goal below 140/90 Unspecified essential hypertension documented in this encounter Advance Directives Documents on File Type Date Recorded Patient Merchandise Coordinator Expl anation POLST 10/20/2021 [place] OR [facility] FOR LIFE-SUSTAINING [...] the patient have Health Care Power of [place] Net? No Care Teams Shirt Maker Relationship Specialty Start Date End Date Jessica Asencio DO [address] [place] [address] PCP - General Family Medicine 01/07/18 documented as of this encounter
--- OUTSIDE RECORDS SUMMARY | 2023-06-20 00:43 | External Medical Summary | Summary of Care ---
Author Name Unknown Organization [facility] Address [address] [place] [address] Phone [phone] Care Team Providers Care Automotive Technician Name Role Phone Chris Asencio Primary Care Provider Reason for Visit * Reason Comments eRx-Medication Refill Encounter Details Date Type Department Care Team Description 01/16/2023 Refill Dermatology [facility] [address] [facility] [place] [address] Tati Bolton MD [address] [place] [address] [place] (granuloma annulare)* Allergies Active Allergy Reactions Severity Noted Date [...] 1 Each 5 10/20/2020 Active Dexcom G6 Garment Folder DeviceIndications:Typ e 2 diabetes mellitus with stage [...] with long-term current use of insulin ([facility]) CHEW 1 TABLET BY MOUTH [...] DAILY . 90 Tablet 3 04/04/2022 Active Furosemide 40 MG Oral Tablet (Lasix)Indications:Ve nous insufficiency,HTN, goal below 140/90 TAKE 1 TABLET BY MOUTH EVERY DAY 90 Tablet 3 04/04/2022 Active Toujeo SoloStar 300 UNIT/ML Subcutaneous Solution Pen-injector (Insulin Glargine (1 Unit Dial))Indications:Typ e 2 diabetes mellitus with hemoglobin A1c goal of 7.0%-8.0% ([facility]),Type 2 diabetes mellitus with stage 3a chronic kidney disease, with long-term current use of insulin ([facility]),Type II diabetes mellitus with neurological manifestations ([facility]) Inject 20 Units under the [...] 08/06/2022 Active Additional Information Patient taking differently:2 [place] Each NostrilBID(AM/PM), Reported on 12/24/2022 Famotidine 40 [...] Patient not taking.Reported on 12/24/2022 Methscopolamine [place] 2.5 MG Oral TabletIndications:Irr itable bowel syndrome with diarrhea TAKE 1 TAB UP TO 3 TIMES DAILY NEEDED FOR ABDOMINAL CRAMPS & DIARRHEA, 270 Tablet 1 11/08/2022 Active Additional Information Patient not taking.Reported on 01/04/2023 [employer] [employer] In Vitro Strip (Glucose Blood)Indications:Typ e II [...] until gone. 14 Capsule 0 01/11/2023 Active Hospital, Clinic, or Other Facility Administered [...] Signed 06/04/2014 Pranav Sanchez MD [facility] [place] Spinal pain 06/04/2014 02/02/2017 Type 2 diabetes [...] encounter Miscellaneous Notes * Telephone Encounter - Livier Arriaza LPN - 01/16/2023 2:37 PM EDTRefused Prescriptions: Disp Refills predniSONE 20 MG Oral Tablet (Deltasone) 20 Tab*0 Si TABLETS DAILY W/FOOD FOR 5 DAYS, THEN 1 FOR 5 DAYS, THEN 1/2 FOR 10 DAYSRefused By: LIVIER ARRIAZA forRefusal: Not indicated * Telephone Encounter - Livier Arriaza LPN - 01/16/2023 2:34 PM EDT Pt does not need meds. States her skin is doing great. * Telephone Encounter - Tati Bolton MD - 01/16/2023 1:21 PM EDTPending Prescriptions: Disp Refills predniSONE 20 MG Oral Tablet (Deltasone) 20 Tab*0 Si TABLETS DAILY W/FOOD FOR 5 DAYS, THEN 1 FOR 5 DAYS, THEN 1/2 FOR 10 DAYS * Telephone Encounter - Livier Arriaza LPN - 01/16/2023 10:59 AM EDTPending Prescriptions: Disp Refills predniSONE 20 MG Oral Tablet (Deltasone) 20 Tab*0 Si TABLETS DAILY W/FOOD FOR 5 DAYS, THEN 1 FOR 5 DAYS, THEN 1/2 FOR 10 DAYS documented in this encounter Plan of Treatment Upcoming Encounters Date Type Specialty Care Team Description 01/17/2023 Scheduled Telephone [facility] [employer] Instruments Inspector, [facility] [address] [place] [address] 02/01/2023 [facility] Penny Parikh, RN [address] [place] [address] 02/21/2023 Office Visit Gastroenterology Iris Cerrato PA-C [address] [place] [address] 02/21/2023 Office Visit Ophthalmology Ernie Rivers DO [address] [place] [address] 02/26/2023 Imaging Radiology 02/26/2023 Imaging Radiology 04/09/2023 Office Visit Family Medicine Chris Asencio DO [address] [place] [address] 04/11/2023 Office Visit Gastroenterology Geovanna Bahena CRNP [address] [place] [address] 04/24/2023 Office Visit Pharmacy [facility] [address] [place] [address] 05/06/2023 Office Visit Nephrology Eric Day MD [address] [place] [address] 06/11/2023 Office Visit Cardiology Sophy Sands PA-C [address] [place] [address] Scheduled Procedures Name Priority Associated Diagnoses Date/Ti [...] Over 10/13/2023 10/12/2022 CKD HGB USE SMARTSET 04939 01/11/202401/10, 01/10/2023, 12/28/2022, Additional history exists CKD PHOS USE SMARTSET 19402 01/11/202412/25, 09/06/2022, 03/01/2022, Additional history exists COLONOSCOPY-EVERY [...] as of this encounter Visit Diagnoses Diagnosis [place] (granuloma annulare)- Primary Other specified erythematous condition documented in this encounter Advance Directives Documents on File Type Date Recorded 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 No Care Teams Automotive Technician Relationship Specialty Start Date End Date Chris Asencio DO [address] [place] [address] PCP - General Family Medicine 01/07/18 documented as of this encounter
--- OUTSIDE RECORDS SUMMARY | 2023-06-20 00:43 | External Medical Summary | Summary of Care ---
Author Name Unknown Organization [facility] Address [address] [place] [address] Phone [phone] Care Team Providers Care Train Starter Name Role Phone Luis M Chris Fabiananay Primary Care Provider Reason for Visit * Reason Onset Date Comments [facility]: Maintenance 01/16/2023 Encounter Details Date Type Department Care Team Description 01/16/2023 Scheduled Telephone [facility], [facility] [address] [facility] [place] [address] Coordinator, [facility] [address] [facility] [place] [address] Allergies Active Allergy Reactions Severity Noted Date [...] 1 Each 5 10/20/2020 Active Dexcom G6 Country Director DeviceIndications:Typ e 2 diabetes mellitus with stage [...] long-term current use of insulin ([facility]) CHEW 1 TABLET BY MOUTH EVERY [...] hemoglobin A1c goal of 7.0%-8.0% ([facility]),Type 2 diabetes mellitus with stage 3a chronic kidney disease, with long-term current use of insulin ([facility]),Type II diabetes mellitus with neurological manifestations ([facility]) Inject 20 Units under the skin [...] 08/06/2022 Active Additional Information Patient taking differently:2 [place] Each NostrilBID(AM/PM), Reported on 12/24/2022 Famotidine 40 [...] Information Patient not taking.Reported on 12/24/2022 Methscopolamine [place] 2.5 MG Oral TabletIndications:Irr itable bowel syndrome [...] MD [facility] Pharmacy [place] Spinal pain 06/04/2014 02/02/2017 Type 2 diabetes [...] mRNA, LNP-s, No Pre serve, 2-Dose Series (TheraCoat) 09/09/2020,08/19/2020 Pneumococcal Conjugate Vacc, 13 Valent (Prevnar) [...] Telephone Encounter - Evon Martin RN - 01/16/2023 10:47 AM EDT [facility] Telephonic Nurse Follow-Up Call [facility] Subprogram: Focused Care Management (3-9 months) Follow Up Call Type: 24 hour follow up Acute issue requiring follow-up call: Complicated UTI Objective: 01/15/2023 9:00 AM 01/11/2023 11:56 AM [...] QUANT URINE CULTURE GROWTH No significant growth 01/11/2023 Lab Results Component Value Date WBC AUTO [...] DME needs identified Medications: New medication(s) added: Macrobid 100 mg capsul 2 x day x 7 days Subjective: Condition Status: Unable to determine Current Concerns: Patient saw PCP last week for UTI symptoms. He started her on Macrobid for 7 day. She had a culturecompleted on 01/11 with no growth. There is one currently in process. Called patient and call to Hot Dotmail. Left message to call [facility] along with phone number. Disposition: Follow up call scheduled for tomorrow with [facility] Future Visits Scheduled: Future Appointments-next 60 days Date/Time Provider Specialty Dept Phone 01/16/2023 12:30 PM [facility] [phone] [facility]23 [facility] [phone] 02/01/2023 2:30 PM Penny Parikh RN [facility] [phone] 02/21/2023 12:00 PM (Arrive by 11:45 AM) Iris Cerrato PA-C Gastroenterology [phone] 02/21/2023 2:15 PM Ernie Rivers DO Ophthalmology [phone] 02/26/2023 12:30 PM (Arrive by 12:15 PM) [email or web address] Radiology [phone] 02/26/2023 1:30 PM (Arrive by 1:15 PM) [address] [place] [address] Radiology [phone] 04/09/2023 3:20 PM (Arrive by 3:05 PM) Chris Asencio DO Family Medicine [phone] 04/11/2023 3:00 PM (Arrive by 2:45 PM) ADELA Puentes Gastroenterology [phone] 04/24/2023 2:00 PM [facility] [phone] 05/06/2023 3:20 PM (Arrive by 3:05 PM) Eric Day MD Nephrology [phone] 06/11/2023 1:30 PM (Arrive by 1:15 PM) Sophy Sands PA-C Cardiology [phone] Routed to care team Evon Martin RN documented in this encounter Plan of Treatment Upcoming Encounters Date Type Specialty Care Team Description 01/17/2023 Scheduled Telephone [facility], [facility] [address] [place] [address] 02/01/2023 [facility] Penny Parikh, RN [address] [place] [address] 02/21/2023 Office Visit Gastroenterology Iris Cerrato PA-C [address] [place] [address] 02/21/2023 Office Visit Ophthalmology Ernie Rivers DO [address] [place] [address] 02/26/2023 Imaging Radiology 02/26/2023 Imaging Radiology 04/09/2023 Office Visit Family Medicine Chris Asencio DO [address] [place] [address] 04/11/2023 Office Visit Gastroenterology Geovanna Bahena CRNP [address] [place] [address] 04/24/2023 Office Visit Pharmacy [facility] [address] [place] [address] 05/06/2023 Office Visit Nephrology Eric Day MD [address] [place] [address] 06/11/2023 Office Visit Cardiology Sophy Sands PA-C [address] [place] [address] Scheduled Procedures Name Priority Associated Diagnoses Date/Ti [...] Over 10/13/2023 10/12/2022 CKD HGB USE SMARTSET 84737 01/11/202401/10, 01/10/2023, 12/28/2022, Additional history exists CKD PHOS USE SMARTSET 25816 01/11/202412/25, 09/06/2022, 03/01/2022, Additional history exists COLONOSCOPY-EVERY [...] Documents on File Type Date Recorded 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 No Care Teams Train Starter Relationship Specialty Start Date End Date Chrsi Asencio DO [address] [place] [address] PCP - General Family Medicine 01/07/18 documented as of this encounter
--- OUTSIDE RECORDS SUMMARY | 2023-06-20 00:44 | External Medical Summary | Summary of Care ---
Author Name Unknown Organization [facility] Address [address] [place] [address] Phone [phone] Care Team Providers Care Rock Wool Applicator Name Role Phone AsencioNaziamarcos Fabiananay Primary Care Provider Reason for Visit * Reason Onset Date Comments Advice 01/15/2023 Encounter Details Date Type Department Care Team Description 01/15/2023 Telephone [facility], [facility] [address] [place] [address] Penny Parikh RN [address] [facility] [address] Advice Allergies Active Allergy Reactions Severity Noted [...] as of this encounter (statuses as of 01/15/2023) Medications Medication Sig Dispensed Refills Start Date [...] 1 Each 5 10/20/2020 Active Dexcom G6 Heavy Duty Diesel Mechanic DeviceIndications:Typ e 2 diabetes mellitus with stage [...] nephropathy, with long-term current use of insulin ([facility]) CHEW 1 TABLET BY MOUTH [...] mellitus with hemoglobin A1c goal of 7.0%-8.0% ([facility]),Type 2 diabetes mellitus with stage 3a chronic kidney disease, with long-term current use of insulin ([facility]),Type II diabetes mellitus with neurological manifestations ([facility]) Inject 20 Units under the [...] 08/06/2022 Active Additional Information Patient taking differently:2 [place] Each NostrilBID(AM/PM), Reported on 12/24/2022 Famotidine 40 [...] Information Patient not taking.Reported on 12/24/2022 Methscopolamine [place] 2.5 MG Oral TabletIndications:Irr itable bowel syndrome [...] as of this encounter (statuses as of 01/15/2023) Active Problems Patient Care Coordination No te [...] as of this encounter (statuses as of 01/15/2023) Resolved Problems Problem Noted Date Resolved Date [...] 018 Overview: Signed 06/04/2014 Pranav Sanchez MD [facility] Pharmacy [place] Spinal pain 06/04/2014 02/02/2017 Type 2 diabetes [...] as of this encounter (statuses as of 01/15/2023) Immunizations Name Administration Dates Next Due COVID-19 [...] encounter Miscellaneous Notes * Telephone Encounter - Penny Parikh RN - 01/15/2023 9:36 AM EDT Thank you. Pt aware and will collect urine specimen. * Telephone Encounter - Penny Parikh RN - 01/15/2023 9:35 AM EDT Thank you. Pt aware and will collect urine specimen. * Telephone Encounter - Dany Duncan DO - 01/15/2023 9:10 AM EDT Advise repeat urine culture. Advise increase fluid intake * Telephone Encounter - Penny Parikh RN - 01/15/2023 9:03 AM EDT Saw Provider last week for c/o UTI s/s - was started on Nitrofurantoin x 7 days Urine culture came back "no significant growth" Pt reports she started abx that she had at home prior to having urine collected and wondering if that could skew results Abx was cefuroxime 500mg She has been taking the nitrofurantoin but feels her symptoms of urgency/frequency and dark urine are unchanged. Wonder if needs a different abx Please advise. Thank you! documented in this encounter Plan of Treatment Upcoming Encounters Date Type Specialty Care Team Description 01/15/2023 [facility] Penny Parikh RN [address] [place] [address] 01/16/2023 Scheduled Telephone [facility] Internal Revenue Agent, [facility] [address] [place] [address] 01/17/2023 Scheduled Telephone [facility] Internal Revenue Agent, [facility]ates [address] [place] [address] 02/01/2023 Home Visit [facility] Penny Parikh RN [address] [place] [address] 02/21/2023 Office Visit Gastroenterology Iris Cerrato PA-C [address] [place] [address] 02/21/2023 Office Visit Ophthalmology Ernie Rivers, DO [address] [place] [id number] 02/26/2023 Imaging Radiology 02/26/2023 Imaging Radiology 04/09/2023 Office Visit Family Medicine Chris Asencio, [address] [place] [address] 04/11/2023 Office Visit Gastroenterology Geovanna Bahena CRNP [address] [place] [address] 04/24/2023 Office Visit Pharmacy [facility] [address] [place] [address] 05/06/2023 Office Visit Nephrology Eric Day MD [address] [facility], [place] [address] 06/11/2023 Office Visit Cardiology Sophy Sands PA-C [address] [place] [address] Scheduled Orders Name Type Priority Associated Diagnoses Orde r Schedule CULTURE, URINE, QUANTITATIVE Lab Routine Dysuria Expected: 01/15/2023, Expires: 01/16/2024 Scheduled Procedures Name Priority Associated Diagnoses Date/Ti me COLONOSCOPY FLEXIBLE PROXIMA L DIAGNOSTIC Recall Family history of colon cancer Health Maintenance Due Date Last Done Comments Zoster Vaccines (2 of 3) 05/07/2013 03/12/2013 COVID-19 Vaccine (3 - Pfizer series) 11/04/2020 09/09/2020, 08/19/2020 DIABETES-FOOT EXAM 05/23/2021 05/23/2020, 1 06/06/2018, 06/05/2018, Additional history exists Mammogram 01/17/2023 01/17/2022, 01/2022, 06/09/2019, Additional history exists Influenza Vaccine [...] Over 10/13/2023 10/12/2022 CKD HGB USE SMARTSET 64134 01/11/202401/10, 01/10/2023, 12/28/2022, Additional history exists CKD PHOS USE SMARTSET 75329 01/11/202412/25, 09/06/2022, 03/01/2022, Additional history exists COLONOSCOPY-EVERY [...] as of this encounter Visit Diagnoses Diagnosis Dysuria- Primary documented in this encounter Advance Directives Documents on File Type Date Recorded Patient Event Marketing Specialist Expl anation POLST 10/20/[address] [place] [address] [facility] [...] the patient have Health Care Power of Plate Glass Polisher? No Care Teams Rock Wool Applicator Relationship Specialty Start Date End Date Chris Asencio DO [address] [place] [address] PCP - General Family Medicine 01/07/18 documented as of this encounter
--- OUTSIDE RECORDS SUMMARY | 2023-06-20 00:44 | External Medical Summary | Summary of Care ---
Author Name Unknown Organization [facility] Address [address] [place] [address] Phone [phone] Care Team Providers Care Velvet Weaver Name Role Phone AsencioJoeChrismelissa Fabiananay Primary Care Provider Reason for Visit * Reason Comments [facility]: Maintenance Encounter Details Date Type Department Care Team Description 01/15/2023 [facility] Visit [facility] [address] [facility] [place] [address] Penny Parikh RN [address] [facility] [place] [address] Allergies Active Allergy Reactions Severity Noted Date [...] 1 Each 5 10/20/2020 Active Dexcom G6 Pocket Stitcher DeviceIndications:Typ e 2 diabetes mellitus with stage [...] current use of insulin ([facility]) CHEW 1 TABLET BY MOUTH EVERY DAY [...] mellitus with neurological manifestations ([facility]) Inject 20 Units under the skin in [...] 08/06/2022 Active Additional Information Patient taking differently:2 [place] Each NostrilBID(AM/PM), Reported on 12/24/2022 Famotidine 40 [...] Information Patient not taking.Reported on 12/24/2022 Methscopolamine [place] 2.5 MG Oral TabletIndications:Irr itable bowel syndrome [...] o Other: toujeo DM Secondary Prevention o BRYANT Inhibitor / ARB o Moderate-High Intensity Statin [...] 018 Overview: Signed 06/04/2014 Pranav Sanchez MD [facility] [place] Spinal pain 06/04/2014 02/02/2017 Type 2 diabetes [...] Sign Reading Time Taken Comments Blood Pressure 114/72 01/15/2023 9:00 AM EDT Pulse 72 01/15/2023 9:00 AM EDT Temperature 36.5 C (97.7 F) 01/15/2023 9:00 AM ED T Respiratory Rate 18 01/15/2023 9:00 AM EDT Oxygen Saturation 98% 01/15/2023 9:00 AM EDT Inhaled Oxygen Concentration - - Weight - - Height - - Body Mass Index - - documented in this encounter Progress Notes * Penny Parikh, RN - 01/15/2023 7:43 AM EDT [facility] Retail Mortgage Banker Visit Date: 01/15/2023 Time: 7:43 AM Name: Liane Alejandre : 1950 Current Concerns: Pt seen for return RNCM visit Saw PCP last week for c/o UTI s/s - [...] unchanged. Wonder if needs a different abx TE sent to PCP Pt reports she has been feeling pretty good lately Had days of good energy and then the next day is very tired - feels she may do too much on the dayswith good energy Blood sugars have been ranging up to mid 200's Pt having trouble keeping them controlled and does not have an appt with MTM until March Pt has been watching her sugars via G7 Dexcom and also glucometer - states she does not trust the G7 TE sent to [facility] pool at to get pt sooner appt Edema much improved since last week's visit Pt wears compression socks and compression pants Physical Exam: BP 114/72 | Pulse 72 | Temp 36.5 C (97.7 F) | Resp 18 | SpO2 98% Pain 0 Physical Exam Constitutional: General: She is not in acute distress. Cardiovascular: Rate and Rhythm: Normal rate and regular rhythm. Pulses: Normal pulses. Heart sounds: Normal heart sounds. Pulmonary: Effort: Pulmonary effort is normal. Breath sounds: Normal breath sounds. Abdominal: General: Bowel sounds are normal. Palpations: Abdomen is soft. Musculoskeletal: Right lower leg: Edema (trace) present. Left lower leg: Edema (trace) present. Skin: General: Skin is warm and dry. Neurological: Mental Status: She is alert and oriented to person, place, and time. Problems/Symptoms: Review of Systems Constitutional: Negative. HENT: Negative. Eyes: Negative. Respiratory: Positive for shortness of breath (WILLIAM - at baseline). Gastrointestinal: Negative. Endocrine: Negative. Genitourinary: Positive for urgency. Urine dark, concentrated Musculoskeletal: Positive for arthralgias. Skin: Negative. Neurological: Negative. Psychiatric/Behavioral: Negative. Medication Reconciliation: (See medication list) Does patient take medications as ordered: Yes Patient Well Being: PHQ2/9: No questionnaires available. No change in living situation Denies falls [facility] Completed this Visit: No. Routine visit and No falls since last visit Advanced Care Planning: POLST. ACP on file Patient's Goals of Care: To be able [...] to hold bp meds until otherwise instructed Bryant wraps to BLEs with 's help Low sodium diet Elevate legs above heart level as tolerated x 20 minutes 3 times daily Elevate legs when sitting Get follow up with nephrology-pt will call Per Dr. Dakota - repeat urine cx - specimen cup left in home and pt will take to lab when ready Home Interventions Provided: Home Intervention: Other; Evaluation Consulted PCP/Specialist Reinforced current Plan of Care, including self-management and medication regimen Patient's 'Red Flags': N/v/diarrhea Decreased urine output Unable to get out of bed Patient [facility]eds to Remember[facility] or [facility] [...] at Home within the last 30 days? Yes, Is this a Transitions of Care visit? Yes, this is the 2nd visit or later, Yes cellular connectivity. Was their Readmission Risk Score less than 18%? Yes Does the patient have any active signs of an exacerbation? No Has the patient had any ED visits since being discharged? No, Please forward to Community Manager Search for telehealth scheduling, and indicate appropriate week of Transition of Care. Provider is in agreement with Plan of Care: Yes Scheduled to follow up with patient in 3 weeks. Penny Parikh RN 01/15/2023 7:43 AM documented in this encounter Plan of Treatment Upcoming Encounters Date Type Specialty Care Team Description 01/16/2023 [facility]uled Telephone [facility] Nursing, [facility] [address] [place] [address] 01/17/2023 Scheduled Telephone [facility] Nursing, [facility] [address] [place] [address] 02/01/2023 Home [facility] Penny Parikh RN [address] [place] [address] 02/21/2023 Office Visit Gastroenterology Iris Cerrato PA-C [address] [place] [address] 02/21/2023 Office Visit Ophthalmology Ernie Rivers, [address] [place] [address] 02/26/2023 Imaging Radiology 02/26/2023 Imaging Radiology 04/09/2023 Office Visit Family Medicine Chris Asencio DO [address] [place] [address] 04/11/2023 Office Visit Gastroenterology Geovanna Bahena CRNP [address] [place] [address] 04/24/2023 Office Visit Pharmacy [facility] [address] [place] [address] 05/06/2023 Office Visit Nephrology Eric Day MD [address] [place] [address] 06/11/2023 Office Visit Cardiology Sophy Sands PA-C [address] [place] [address] Scheduled Procedures Name Priority Associated Diagnoses Date/Ti [...] Over 10/13/2023 10/12/2022 CKD HGB USE SMARTSET 07200 01/11/202401/10, 01/10/2023, 12/28/2022, Additional history exists CKD PHOS USE SMARTSET 50135 01/11/202412/25, 09/06/2022, 03/01/2022, Additional history exists COLONOSCOPY-EVERY [...] Documents on File Type Date Recorded Patient Open Die Inspector Expl bhargav POL 10/20/2021 [place] OR [facility] FOR LIFE-SUSTAINING TREATMENT Latest Code Status on File Code Status Date Activated Date Inactivated Comments Full Code 03/30/2022 6:40 AM 03/30/2022 2:12 PM This order reflects the patients wishes and were consensually agreed upon. Question Answer Comments Discussion of Advance Directives occurred with: Patient Does the patient have a Living Will? No Does the patient have Health Care Power of Clothes Shaker? No Care Teams Velvet Weaver Relationship Specialty Start Date End Date Chris Asencio DO [address] [place] [address] PCP - General Family Medicine 01/07/18 documented as of this encounter
--- OUTSIDE RECORDS SUMMARY | 2023-06-20 00:44 | External Medical Summary | Summary of Care ---
Author Name Unknown Organization [facility] Address [address] [place] [address] Phone [phone] Care Team Providers Care Fundraising Coordinator Name Role Phone Chris Asencioanay Primary Care Provider Reason for Visit * Reason Comments Outpatient Testing Encounter Details Date Type Department Care Team Description 01/15/2023 Laboratory Laboratory, [place] [address] [place] [address] St, Specimen Drop Off [facility] [address] [place] [address] Dysuria Allergies Active Allergy Reactions Severity Noted Date [...] 1 Each 5 10/20/2020 Active Dexcom G6 Radio Installer Automobile DeviceIndications:Typ e 2 diabetes mellitus with stage [...] nephropathy, with long-term current use of insulin ([facility]) CHEW 1 TABLET BY MOUTH [...] mellitus with hemoglobin A1c goal of 7.0%-8.0% ([facility]),Type 2 diabetes mellitus with stage 3a chronic kidney disease, with long-term current use of insulin ([facility]),Type II diabetes mellitus with neurological manifestations ([facility]) Inject 20 Units under the [...] 08/06/2022 Active Additional Information Patient taking differently:2 [place] Each NostrilBID(AM/PM), Reported on 12/24/2022 Famotidine 40 [...] Information Patient not taking.Reported on 12/24/2022 Methscopolamine [place] 2.5 MG Oral TabletIndications:Irr itable bowel syndrome [...] Sanchez MD [facility] [place] Spinal pain 06/04/2014 02/02/2017 Type 2 diabetes [...] Home Penny Parikh RN [address] [place] [address] 01/16/2023 Scheduled Telephone [facility] Elementary Reading TutorElena Luong [facility] [address] [place] [address] 01/17/2023 Scheduled Telephone [facility] Elementary Reading Tutor, [facility] [address] [place] [address] 02/01/2023 [facility] Penny Parikh, RN [address] [place] [address] 02/21/2023 Office Visit Gastroenterology Iris Cerrato PA-C [address] [place] [address] 02/21/2023 Office Visit Ophthalmology Ernie Rivers DO [address] [place] [address] 02/26/2023 Imaging Radiology 02/26/2023 Imaging Radiology 04/09/2023 Office Visit Family Medicine Chris Asencio DO [address] [place] [address] 04/11/2023 Office Visit Gastroenterology Geovanna Bahena CRNP [address] [place] [address] 04/24/2023 Office Visit Pharmacy [facility] [address] [place] [address] 05/06/2023 Office Visit Nephrology Eric Day MD [address] [place] [address] 06/11/2023 Office Visit Cardiology Sophy Sands PA-C [address] [place] [address] Pending Results Name Type Priority Associated Diagnoses Date /Time CULTURE, URINE, QUANTITATIVE Lab Routine Dysuria 01/15/2023 12:15 PM EDT Scheduled Procedures Name Priority Associated [...] Over 10/13/2023 10/12/2022 CKD HGB USE SMARTSET 66607 01/11/202401/10, 01/10/2023, 12/28/2022, Additional history exists CKD PHOS USE SMARTSET 39058 01/11/202412/25, 09/06/2022, 03/01/2022, Additional history exists COLONOSCOPY-EVERY [...] as of this encounter Visit Diagnoses Diagnosis Dysuria documented in this encounter Advance Directives Documents on File Type Date Recorded Patient Pediatrics Physician Expl anation POLST 10/20/2021 [place] OR [facility] FOR LIFE-SUSTAINING [...] the patient have Health Care Power of Blockmason? No Care Teams Fundraising Coordinator Relationship Specialty Start Date End Date Chris Asencio DO [address] [place] [address] PCP - General Family Medicine 01/07/18 documented as of this encounter
--- OUTSIDE RECORDS SUMMARY | 2023-06-20 00:44 | External Medical Summary ---
Author Name Unknown Address Unknown Organization K01:LABORATORY [facility] - [address] [facility] [address] Laboratory Report Ordering Provider Test Date Status JOSE ALFREDO STEEN 01/11/2023 12:37:43 Final Observation Date Value Abnormality Reference (Units ) Status Color of Urine by Auto 01/11/2023 12:37:43 Light Yellow Colorless, Light Yellow, Yellow, Dark Yellow Final Clarity, Urine 01/11/2023 12:37:43 Clear Clear Final Glucose [Mass/volume] in Urine by Automated test strip 01/11/2023 12:37:43 Negative Negative (mg/dL) Final Bilirubin.total [Presence] in Urine by Automated test strip 01/11/2023 12:37:43 Negative Negative Final Ketones [Mass/volume] in Urine by Automated test strip 01/11/2023 12:37:43 Negative Negative (mg/dL) Final Specific gravity, Urine 01/11/2023 12:37:43 1.010 1.003-1.030 Final Hemoglobin [Presence] in Urine by Automated test strip 01/11/2023 12:37:43 Negative Negative Final pH, Urine 01/11/2023 12:37:43 6.5 5.0-7.5 (Units) Final Protein [Mass/volume] in Urine by Automated test strip 01/11/2023 12:37:43 Negative Negative (mg/dL) Final Urobilinogen [Mass/volume] in Urine by Automated test strip 01/11/2023 12:37:43 Normal Normal (mg/dL) Final Nitrite [Presence] in Urine by Automated test strip 01/11/2023 12:37:43 Negative Negative Final Leukocyte esterase [Presence] in Urine by Automated test strip 01/11/2023 12:37:43 Moderate Abnormal Negative Final RBC, Urine 01/11/2023 12:37:43 3-5 Abnormal 0-2 (/HPF) Final WBC, Urine 01/11/2023 12:37:43 50+ Abnormal 0-2 (/HPF) Final Bacteria [#/area] in Urine sediment by Microscopy high power field 01/11/2023 12:37:43 51-100 Abnormal 0-25 (/HPF) Final Hyaline casts, Urine 01/11/2023 12:37:43 10-19 Abnormal None (/LPF) Final Epithelial cells.renal [#/area] in Urine sediment by Microscopy high power field 01/11/2023 12:37:43 1-4 Abnormal None (/HPF) Final Transitional cells [#/area] in Urine sediment by Microscopy high power field 01/11/2023 12:37:43 1-4 Abnormal None (/HPF) Final Leukocyte clumps [#/area] in Urine sediment by Microscopy high power field 01/11/2023 12:37:43 Present Abnormal None (/HPF) Final [facility] 01/11/2023 12:37:43 Final Quantitative urine culture t o be performed Performing Location LABORATORY [facility] - [address] [facility] [address]
--- OUTSIDE RECORDS SUMMARY | 2023-06-20 00:44 | External Medical Summary ---
Author Name Unknown Address Unknown Organization K01:LABORATORY [facility] - [address] [place] [id number] Laboratory Report Ordering Provider Test Date Status JOSE ALFREDO STEEN 01/11/2023 12:37:43 Final Observation Date Value Abnormality Reference (Units) Status Bacteria identified in Specimen by Culture 01/11/2023 12:37:43 No significant growth Final Test: Culture, Urine, Quanti tative
Specimen Source: Urine, Clean Catch
Specimen Type: Urine
Specimen Date: 01/11/2023 12:37 PM
Result Date: 01/12/2023 3:27 PM
Result Status: Final result
Resulting Lab: LABORATORY [facility]
[address]
[place] [address]

CULTURE

No significant growth

null Performing Location LABORATORY [facility] - [address] [facility] [address]
--- OUTSIDE RECORDS SUMMARY | 2023-06-20 00:44 | External Medical Summary | Summary of Care ---
Author Name Unknown Organization [facility] Address [address] [place] [address] Phone [phone] Care Team Providers Care Beaming Inspector Name Role Phone Nazia Asenciomarcos Fabiananay Primary Care Provider Reason for Visit * Reason Onset Date Comments Med Request 01/11/2023 Urinary Tract Infection Symptoms 01/11/2023 Pt calling to follow up on previous request. Pt states that she is having UTI Symptoms. Encounter Details Date Type Department Care Team Description 01/11/2023 Telephone NephrologyMisty [address] [place] [address] Eric Day MD [address] [facility] [place] [address] Med Request; Urinary Tract Infection Sympt... Allergies Active Allergy Reactions Severity Noted Date [...] as of this encounter (statuses as of 01/11/2023) Medications Medication Sig Dispensed Refills Start Date [...] Each 5 10/20/2020 Active Dexcom G6 Hand Umbrella Tipper DeviceIndications:Typ e 2 diabetes mellitus with stage [...] use of insulin ([facility]) CHEW 1 TABLET BY MOUTH EVERY [...] hemoglobin A1c goal of 7.0%-8.0% ([facility]),Type 2 diabetes mellitus with stage 3a chronic kidney disease, with long-term current use of insulin ([facility]),Type II diabetes mellitus with neurological manifestations ([facility]) Inject 20 Units under the skin [...] 08/06/2022 Active Additional Information Patient taking differently:2 [place] Each NostrilBID(AM/PM), Reported on 12/24/2022 Famotidine 40 [...] Information Patient not taking.Reported on 12/24/2022 Methscopolamine [place] 2.5 MG Oral TabletIndications:Irr itable bowel syndrome with diarrhea TAKE 1 TAB UP TO 3 TIMES DAILY NEEDED FOR ABDOMINAL CRAMPS & DIARRHEA, 270 Tablet 1 11/08/2022 Active Additional Information Patient not taking.Reported on 01/04/2023 OneTouch ParkAround In Vitro Strip (Glucose Blood)Indications:Typ e II [...] NIGHTLY NEEDED 30 g 0 01/02/2023 Active Hospital, Clinic, or Other Facility Administered Medication Ordered Dose Route Frequency Start Date End Date Status albuterol sulfate (PROVENTIL) (2.5 MG/3ML) 0.083% inhalation solution 2.5 mgIndications:Moderate persistent asthma without complication 2.5 mg NEBULIZER Q4H PRN 08/13/2018 Active documented as of this encounter (statuses as of 01/11/2023) Active Problems Patient Care Coordination No te [...] as of this encounter (statuses as of 01/11/2023) Resolved Problems Problem Noted Date Resolved Date [...] 018 Overview: Signed 06/04/2014 Pranav Sanchez MD [facility] [place] Spinal pain 06/04/2014 02/02/2017 Type 2 diabetes [...] as of this encounter (statuses as of 01/11/2023) Immunizations Name Administration Dates Next Due COVID-19 mRNA, LNP-s, No Pre serve, 2-Dose Series ([employer]) 09/09/2020,08/19/2020 Pneumococcal Conjugate Vacc, 13 Valent (Prevnar) [...] Miscellaneous Notes * Telephone Encounter - KATERIN Mendoza - 01/11/2023 8:03 AM EDT Pt was d/c from the hospital with a bladder infection but thinks she's starting with one again Asking for medication documented in this encounter Plan of Treatment Upcoming Encounters Date Type Specialty Care Team Description 01/15/2023 [facility] Penny Parikh RN [address] [facility] [place] [address] 02/15/2023 Office Visit Cardiology Sophy Sands PA-C [address] [place] [address] 02/21/2023 Office Visit Gastroenterology Iris Cerrato PA-C [address] [place] [address] 02/21/2023 Office Visit Ophthalmology Ernie Rivers, DO [address] [place] [address] 02/26/2023 Imaging Radiology 02/26/2023 Imaging Radiology 04/09/2023 Office Visit Family Medicine Chris Asencio DO [address] [place] [address] 04/11/2023 Office Visit Gastroenterology Geovanna Bahena CRNP [address] [place] [address] 04/24/2023 Office Visit Pharmacy [facility] [address] [place] [address] 05/06/2023 [facility] Visit [facility]phrology [facility] [address] [facility] [address] Scheduled Procedures Name Priority Associated Diagnoses Date/Ti [...] Over 10/13/2023 10/12/2022 CKD HGB USE SMARTSET 85344 01/11/202401/10, 01/10/2023, 12/28/2022, Additional history exists CKD PHOS USE SMARTSET 61765 01/11/202412/25, 09/06/2022, 03/01/2022, Additional history exists COLONOSCOPY-EVERY [...] on File Type Date Recorded Patient Plate Maker Zinc Expl anation POLST 10/20/2021 [place] OR DERS [...] the patient have Health Care Power of Wireless Consultant? No Care Teams Beaming Inspector Relationship Specialty Start Date End Date Chris Asencio DO [address] [place] [address] PCP - General Family Medicine 01/07/18 documented as of this encounter
--- OUTSIDE RECORDS SUMMARY | 2023-06-20 00:44 | External Medical Summary ---
Author Name Unknown Address Unknown Organization K01:LAB[facility]ATORY [facility] - [address] [place] [id number] Laboratory Report Ordering Provider Test Date Status JOSE ALFREDO STEEN 01/15/2023 12:15:44 Final Observation Date Value Abnormality Reference (Units) Status Bacteria identified in Specimen by Culture 01/15/2023 12:15:44 No significant growth Final Test: Culture, Urine, Quanti tative
Specimen Source: Urine, Clean Catch
Specimen Type: Urine
Specimen Date: 01/15/2023 12:15 PM
Result Date: 01/16/2023 4:13 PM
Result Status: Final result
Resulting Lab: [facility]
[address]
[place] [address]

CULTURE

No significant growth

null Performing Location LABORATORY [facility] - [address] [facility] [address]
--- OUTSIDE RECORDS SUMMARY | 2023-06-20 00:44 | External Medical Summary | Summary of Care ---
Author Name Unknown Organization [facility] Address [address] [place] [address] Phone [phone] Care Team Providers Care Team Manager Name Role Phone Nazia Asenciomarcos Fabiananay Primary Care Provider Reason for Visit * Reason Onset Date Comments Med Request 01/11/2023 Urinary Tract Infection Symptoms 01/11/2023 Pt calling to follow up on previous request. Pt states that she is having UTI Symptoms. Encounter Details Date Type Department Care Team Description 01/11/2023 Telephone [facility] [address] [place] [address] Eric Day MD 200 [facility] [place] [address] Med Request; Urinary Tract Infection Sympt... Allergies [...] 1 Each 5 10/20/2020 Active Dexcom G6 Vp Marketing Services And Skin DeviceIndications:Typ e 2 diabetes mellitus with stage [...] use of insulin ([facility]) CHEW 1 TABLET BY [...] with hemoglobin A1c goal of 7.0%-8.0% ([facility]),Type 2 diabetes mellitus with stage 3a chronic kidney disease, with long-term current use of insulin ([facility]),Type II diabetes mellitus with neurological manifestations ([facility]) Inject 20 Units under [...] 08/06/2022 Active Additional Information Patient taking differently:2 [place] Each NostrilBID(AM/PM), Reported on 12/24/2022 Famotidine 40 [...] Information Patient not taking.Reported on 12/24/2022 Methscopolamine [place] 2.5 MG Oral TabletIndications:Irr itable bowel syndrome with diarrhea TAKE 1 TAB UP TO 3 TIMES DAILY NEEDED FOR ABDOMINAL CRAMPS & DIARRHEA, 270 Tablet 1 11/08/2022 Active Additional Information Patient not taking.Reported on 01/04/2023 OneTouch Hubskip In Vitro Strip (Glucose Blood)Indications:Typ e II [...] Sanchez MD [facility] Pharmacy [place] Spinal pain 06/04/2014 02/02/2017 Type 2 diabetes [...] mRNA, LNP-s, No Pre serve, 2-Dose Series (Quvium) 09/09/2020,08/19/2020 Pneumococcal Conjugate Vacc, 13 Valent (Prevnar) [...] Telephone Encounter - Faby Milan LPN - 01/11/2023 11:32 AM EDT Called pt. She stated last night around 7pm she started having some burning and frequency. She stated her urine is dark. She d/c 1 week ago from hospital. Had bladder infection in hospital. Pt spoke with [facility] about her symptoms and they arranged an appointment for her with [facility]. She is there now * Telephone Encounter - KATERIN Mendoza - 01/11/2023 8:03 AM EDT Pt was d/c from the hospital with a bladder infection but thinks she's starting with one again Asking for medication documented in this encounter Plan of Treatment Upcoming Encounters Date Type Specialty Care Team Description 01/11/2023 Office Visit Family Medicine Dany Duncan, [address] [place] [address] Arrived 01/15/2023 Home Visit [facility] ePnny Parikh RN [address] [place] [address] 02/15/2023 Office Visit Cardiology Sophy Sands PA-C [address] [place] [address] 02/21/2023 Office Visit Gastroenterology Iris Cerrato PA-C [address] [place] [address] 02/21/2023 Office Visit Ophthalmology Ernie Rivers, DO [address] [place] [address] 02/26/2023 Imaging Radiology 02/26/2023 Imaging Radiology 04/09/2023 Office Visit Family Medicine Chris Asencio DO [address] [place] [address] 04/11/2023 Office Visit Gastroenterology Geovanna Bahena CRNP [address] [place] [address] 04/24/2023 Office Visit Pharmacy [facility] Amira [address] [place] [address] 05/06/2023 Office Visit Nephrology Eric Day MD [address] [facility] [place] [address] Scheduled Procedures Name Priority Associated Diagnoses Date/Ti [...] Over 10/13/2023 10/12/2022 CKD HGB USE SMARTSET 92624 01/11/202401/10, 01/10/2023, 12/28/2022, Additional history exists CKD PHOS USE SMARTSET 83435 01/11/202412/25, 09/06/2022, 03/01/2022, Additional history exists COLONOSCOPY-EVERY [...] Documents on File Type Date Recorded 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 No Care Teams Team Manager Relationship Specialty Start Date End Date Chris Asencio DO [address] [place] [address] PCP - General Family Medicine 01/07/18 documented as of this encounter
--- OUTSIDE RECORDS SUMMARY | 2023-06-20 00:44 | External Medical Summary | Summary of Care ---
Author Name Unknown Organization [facility] Address [address] [place] [address] Phone [phone] Care Team Providers Care Machine Bander And Cellophaner Helper Name Role Phone Nazia Asenciomarcos Fabiananay Primary Care Provider Reason for Visit * Reason Onset Date Comments [facility]: Maintenance 01/15/2023 Encounter Details Date Type Department Care Team Description 01/15/2023 Telephone [facility] [address] [facility] [place] [address] Penny Parikh RN [address] [facility] [address] [facility]: Maintenance Allergies Active Allergy [...] 1 Each 5 10/20/2020 Active Dexcom G6 Heat Treater Helper DeviceIndications:Typ e 2 diabetes mellitus with stage [...] nephropathy, with long-term current use of insulin ([facility]) CHEW 1 TABLET BY MOUTH EVERY [...] mellitus with hemoglobin A1c goal of 7.0%-8.0% ([facility]),Type 2 diabetes mellitus with stage 3a chronic kidney disease, with long-term current use of insulin ([facility]),Type II diabetes mellitus with neurological manifestations ([facility]) Inject 20 Units under the skin [...] 08/06/2022 Active Additional Information Patient taking differently:2 [place] Each NostrilBID(AM/PM), Reported on 12/24/2022 Famotidine 40 [...] Information Patient not taking.Reported on 12/24/2022 Methscopolamine [place] 2.5 MG Oral TabletIndications:Irr itable bowel syndrome with diarrhea TAKE 1 TAB UP TO 3 TIMES DAILY NEEDED FOR ABDOMINAL CRAMPS & DIARRHEA, 270 Tablet 1 11/08/2022 Active Additional Information Patient not taking.Reported on 01/04/2023 Data Virtuality In Vitro Strip (Glucose Blood)Indications:Typ e II [...] Pranav Sanchez MD [facility] Pharmacy [place] Spinal pain 06/04/2014 02/02/2017 Type 2 diabetes [...] mRNA, LNP-s, No Pre serve, 2-Dose Series (Celsion) 09/09/2020,08/19/2020 Pneumococcal Conjugate Vacc, 13 Valent (Prevnar) [...] encounter Miscellaneous Notes * Telephone Encounter - Manuela Ko RPh - 01/15/2023 3:11 PM EDT Per chart review, patient not cleared to r/s Ozempic at this time. Attempted to contact patient to further discuss/look towards scheduling sooner appointment. No answer, left message to return call to clinic to discuss. Manuela Ko RPh, PharmD Clinical Pharmacist - Ict Analyst Medication [facility] 01/15/2023, 3:14 PM [phone] * Telephone Encounter - Penny Parikh RN - 01/15/2023 9:11 AM EDT Pt concerned with blood glucose readings Blood sugars have been ranging up to mid 200's Pt having trouble keeping them controlled and does not have an appt with MTM until March Pt has been watching her sugars via G7 Dexcom and also glucometer - states she does not trust the G7 She is concerned with not being on Ozempic anymore. Can you please reach out to her and maybe get her an earlier appt? Thank you! documented in this encounter Plan of Treatment Upcoming Encounters Date Type Specialty Care Team Description 01/15/2023 [facility] Visit [facility] Penny Parikh RN [address] [place] [address] 01/16/2023 Scheduled Telephone [facility], Armaan Davon Yates [address] [place] [address] 01/17/2023 Scheduled Telephone [facility], [facility] Davon Yates [address] [place] [address] 02/01/2023 Home Visit [facility] Penny Parikh RN [address] [place] [address] 02/21/2023 Office Visit Gastroenterology Iris Cerrato PA-C [address] [place] [address] 02/21/2023 Office Visit Ophthalmology Ernei Rivers, DO [address] [place] [address] 02/26/2023 Imaging Radiology 02/26/2023 Imaging Radiology 04/09/2023 Office Visit Family Medicine Chris Asencio, [address] [place] [address] 04/11/2023 Office Visit Gastroenterology Geovanna Bahena CRNP [address] [place] [address] 04/24/2023 Office Visit Pharmacy [facility] Amira [address] [place] [address] 05/06/2023 Office Visit Nephrology Eric Day MD 200 [facility], [place] [address] 06/11/2023 Office Visit Cardiology Sophy Sands PA-C [address] [place] [address] Scheduled Procedures Name Priority Associated Diagnoses Date/Ti [...] Over 10/13/2023 10/12/2022 CKD HGB USE SMARTSET 47767 01/11/202401/10, 01/10/2023, 12/28/2022, Additional history exists CKD PHOS USE SMARTSET 38636 01/11/202412/25, 09/06/2022, 03/01/2022, Additional history exists COLONOSCOPY-EVERY [...] Documents on File Type Date Recorded 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 Question Answer Comments Discussion of Advance Directives occurred with: Patient Does the patient have a Living Will? No Does the patient have Health Care Power of Combination Man? No Care Teams Machine Bander And Cellophaner Helper Relationship Specialty Start Date End Date Chris Asencio DO [address] [place] [address] PCP - General Family Medicine 01/07/18 documented as of this encounter
--- OUTSIDE RECORDS SUMMARY | 2023-06-20 00:44 | External Medical Summary | Summary of Care ---
Author Name Unknown Organization [facility] Address [address] [place] [address] Phone [phone] Care Team Providers Care Business School Dean Name Role Phone Chris Asencioanay Primary Care Provider Reason for Visit * Reason Comments Outpatient Testing Encounter Details Date Type Department Care Team Description 01/10/2023 Laboratory [facility], [place] [address] [place] [address] [place], [facility] [address] [place] [address] [employer] [employer] Research Other*[id number]; Stage 3a chronic kidney disease (HCC) Allergies Active Allergy Reactions Severity Noted Date [...] as of this encounter (statuses as of 01/10/2023) Medications Medication Sig Dispensed Refills Start Date [...] 1 Each 5 10/20/2020 Active Dexcom G6 Gsa Coordinator DeviceIndications:Typ e 2 diabetes mellitus with stage [...] 08/06/2022 Active Additional Information Patient taking differently:2 [place] Each NostrilBID(AM/PM), Reported on 12/24/2022 Famotidine 40 [...] Information Patient not taking.Reported on 12/24/2022 Methscopolamine [place] 2.5 MG Oral TabletIndications:Irr itable bowel syndrome with diarrhea TAKE 1 TAB UP TO 3 TIMES DAILY NEEDED FOR ABDOMINAL CRAMPS & DIARRHEA, 270 Tablet 1 11/08/2022 Active Additional Information Patient not taking.Reported on 01/04/2023 Pongr In Vitro Strip (Glucose Blood)Indications:Typ e II [...] as of this encounter (statuses as of 01/10/2023) Active Problems Patient Care Coordination No te [...] CKD protocol Chronic kidney disease, stage 3b 08/14/2 023 Overview: Per CKD protocol Dyslipidemia, goal [...] as of this encounter (statuses as of 01/10/2023) Resolved Problems Problem Noted Date Resolved Date [...] USE AGREEMENT 06/04/201405/14/ 018 Overview: Signed 06/04/2014 rPanav Sanchez MD [facility] Pharmacy [place] Spinal pain 06/04/2014 02/02/2017 Type 2 diabetes [...] as of this encounter (statuses as of 01/10/2023) Immunizations Name Administration Dates Next Due COVID-19 mRNA, LNP-s, No Pre serve, 2-Dose Series (Pfizer) 09/09/2020,08/19/2020 Pneumococcal Conjugate Vacc, 13 Valent (Prevnar) 04/03/2018,10/17/2016 Pneumococcal Polysaccharide PPV23 (Pneumovax) 04/04/2019,11/04/2018,12/10/2006 Seasonal Influenza, Quadriva lent Hd (Fluzone Hd) 03/01/2022,03/27/2021 Seasonal Influenza, Quadriva lent, No Preserve, 6 Mons & Above, IM 02/25/2020,02/05/2019,01/29/2018,04/16 Seasonal Influenza, Quadriva lent, No Preserve, IM [...] Specialty Care Team Description 01/15/2023 Home Visit [facility] Penny Parikh RN [address] [place] [address] 02/15/2023 Office Visit Cardiology Sophy Sands PA-C [address] [place] [address] 02/21/2023 Office Visit Gastroenterology Iris Cerrato PA-C [address] [place] [address] 02/21/2023 Office Visit Ophthalmology Ernie Rivers, DO [address] [place] [address] 02/26/2023 Imaging Radiology 02/26/2023 Imaging Radiology 04/09/2023 Office Visit Family Medicine Chris Asencio DO [address] [place] [address] 04/11/2023 Office Visit Gastroenterology Geovanna Bahena CRNP [address] [place] [address] 04/24/2023 Office Visit Pharmacy [facility] Amira [address] [place] [address] 05/06/2023 Office Visit [facility]phrology [facility] [address] Pending Results Name Type Priority Associated Diagnoses Date /Time MYCODE SUBSEQUENT ADULT Lab Routine [employer] Research Other*[id number] 01/10/2023 9:08 AM EDT CBC WITH WBC DIFFERENTIAL Lab Routine Stage 3a chronic kidney disease (HCC) 01/10/2023 9:08 AM EDT PTH Lab Routine Stage 3a chronic kidney disease (HCC) 01/10/2023 9:08 AM EDT RENAL FUNCTION PANEL Lab Routine Stage 3a chronic kidney disease (HCC) 01/10/2023 9:08 AM EDT MAGNESIUM Lab Routine Stage 3a chronic kidney disease (HCC) 01/10/2023 9:08 AM EDT 25-HYDROXY VITAMIN D Lab Routine Stage 3a chronic kidney disease (HCC) 01/10/2023 9:08 AM EDT MYCODE SST1 Lab Routine [employer] Research Other*[id number] 01/10/2023 9:08 AM EDT MYCODE SST2 Lab Routine [employer] Research Other*[id number] 01/10/2023 9:08 AM EDT CBC Lab Routine Stage 3a chronic kidney disease (HCC) 01/10/2023 9:08 AM EDT DIFFERENTIAL, AUTOMATED Lab Routine Stage 3a chronic kidney disease ([facility]) 01/10/2023 9:08 AM EDT PROTEIN/ CREATININE RATIO, URINE Lab Routine Stage 3a chronic kidney disease ([facility]) 01/10/2023 9:17 AM EDT Scheduled Procedures Name Priority Associated Diagnoses [...] 03/04/2020, Additional history exists HbA1c 03/08/2023 09/06/2022, 0311/2022, 03/01/2022, Additional history exists GFR 07/06/2023 01/03/2023, 08/0 08/2022, 09/06/2022, Additional history exists DIABETES-EYE EXAM 08/10/2023 08/09/2022, , 04/13/2021, Additional history exists Albumin/Creatinine Ratio 09/07/20232 023, 11/24/2021, 11/15/2020, Additional history exists CKD PHOS USE SMARTSET 17853 09/07/202308/25, 03/01/2022, 03/27/2021, Additional history exists Depression Screening, Annual for Pts 12 and Over 10/13/2023 10/12/2022 CKD HGB USE SMARTSET 69266 12/29/202312/28, 12/28/2022, 09/06/2022, Additional history exists COLONOSCOPY-EVERY 5 YRS [...] this encounter Visit Diagnoses Diagnosis My[employer] Research Other*[id number] Stage 3a chronic kidney disease (HCC) documented in this encounter Advance Directives Documents on File Type Date Recorded Patient Row Boss Expl anation POLST 10/20/2021 [place] OR [facility] FOR LIFE-SUSTAINING [...] the patient have Health Care Power of Speech Language Pathologist Prn? No Care Teams Business School Dean Relationship Specialty Start Date End Date Chris Asencio DO [address] [place] [address] PCP - General Family Medicine 01/07/18 documented as of this encounter
--- OUTSIDE RECORDS SUMMARY | 2023-06-20 00:45 | External Medical Summary ---
Author Name Unknown Address Unknown Organization K01:[facility] [address] [place] [address] Laboratory Report Ordering Provider Test Date Status JOSE HAWKJULISA 01/10/2023 09:08:42 Final Observation Date Value Abnormality Reference (Units ) Status Magnesium 01/10/2023 09:08:42 2.2 1.5-2.6 (m g/dL) Final Performing Location [facility] - [address] [place] [address]
--- OUTSIDE RECORDS SUMMARY | 2023-06-20 00:45 | External Medical Summary | Summary of Care ---
Author Name Unknown Organization [facility] Address [address] [place] [address] Phone [phone] Care Team Providers Care Associate Software Development Engineer Name Role Phone Chris Asencioanay Primary Care Provider Reason for Visit * Reason Comments Outpatient Testing Encounter Details Date Type Department Care Team Description 01/10/2023 Laboratory Laboratory, [place] [address] [place] [address] [place], [facility] [address] [place] [address] [employer] Research Other*[id number]; Stage 3a chronic kidney disease (HCC) Allergies [...] 1 Each 5 10/20/2020 Active Dexcom G6 Electrical Systems Design Engineer DeviceIndications:Typ e 2 diabetes mellitus with [...] nephropathy, with long-term current use of insulin ([facility]) CHEW 1 TABLET BY MOUTH EVERY [...] 08/06/2022 Active Additional Information Patient taking differently:2 [place] Each NostrilBID(AM/PM), Reported on 12/24/2022 Famotidine 40 [...] Information Patient not taking.Reported on 12/24/2022 Methscopolamine [place] 2.5 MG Oral TabletIndications:Irr itable bowel syndrome with diarrhea TAKE 1 TAB UP TO 3 TIMES DAILY NEEDED FOR ABDOMINAL CRAMPS & DIARRHEA, 270 Tablet 1 11/08/2022 Active Additional Information Patient not taking.Reported on 01/04/2023 EverCloud In Vitro Strip (Glucose Blood)Indications:Typ e II [...] MD [facility] Pharmacy [place] Spinal pain 06/04/2014 02/02/2017 Type 2 diabetes [...] Penny Parikh RN [address] [place] [address] 02/15/2023 Office Visit Cardiology Sophy Sands PA-C [address] [place] [address] 02/21/2023 Office Visit Gastroenterology Iris Cerrato PA-C [address] [place] [address] 02/21/2023 Office Visit Ophthalmology Ernie Rivers, DO [address] [place] [address] 02/26/2023 Imaging Radiology 02/26/2023 Imaging Radiology 04/09/2023 Office Visit Family Medicine Chris Asencio DO [address] [place] [address] 04/11/2023 Office Visit Gastroenterology Geovanna Bahena CRNP [address] [place] [address] 04/24/2023 Office Visit Pharmacy [facility] Amira [address] [place] [address] 05/06/2023 Office Visit Nephrology Eric Day MD [address] [facility] [address] Pending Results Name Type Priority Associated Diagnoses Date /Time MYCODE SUBSEQUENT ADULT Lab Routine [employer] Research Other*[id number] 01/10/2023 9:08 AM EDT CBC WITH WBC [...] EDT MYCODE SST1 Lab Routine [employer] Other*[id number] 01/10/2023 9:08 AM EDT MYCODE SST2 Lab Routine [employer] Other*[id number] 01/10/2023 9:08 AM EDT CBC Lab Routine Stage 3a chronic kidney disease (HCC) 01/10/2023 9:08 AM EDT DIFFERENTIAL, AUTOMATED Lab Routine Stage 3a chronic kidney disease ([facility]) 01/10/2023 9:08 AM EDT PROTEIN/ CREATININE RATIO, URINE Lab Routine Stage 3a chronic kidney disease ([facility]) 01/10/2023 9:17 AM EDT Scheduled Procedures [...] Additional history exists CKD PHOS USE SMARTSET 36511 09/07/202308/25, 03/01/2022, 03/27/2021, Additional history exists Depression Screening, Annual for Pts 12 and Over 10/13/2023 10/12/2022 CKD HGB USE SMARTSET 63296 12/29/202312/28, 12/28/2022, 09/06/2022, Additional history exists COLONOSCOPY-EVERY [...] this encounter Visit Diagnoses Diagnosis [employer] Research Other*[id number] Stage 3a chronic kidney disease (HCC) documented in this encounter Advance Directives Documents on File Type Date Recorded Patient Transport Assistant Expl anation POLST 10/20/2021 [place] OR [facility] FOR LIFE-SUSTAINING TREATMENT Latest Code Status on File Code Status Date Activated Date Inactivated Comments Full Code 03/30/2022 6:40 AM 03/30/2022 2:12 PM This order reflects the patients wishes and were consensually agreed upon. Question Answer Comments Discussion of Advance Directives occurred with: Patient Does the patient have a Living Will? No Does the patient have Health Care Power of Care Manager Cna? No Care Teams Associate Software Development Engineer Relationship Specialty Start Date End Date Chris Asencio DO [address] [place] [address] PCP - General Family Medicine 01/07/18 documented as of this encounter
--- OUTSIDE RECORDS SUMMARY | 2023-06-20 00:45 | External Medical Summary ---
Author Name Unknown Address Unknown Organization K01:LABORATORY [facility] - [address] [place] [address] Laboratory Report Ordering Provider Test Date Status KALEB JJ 01/10/2023 09:08:42 Final Observation Date Value Abnormality Reference (Units ) Status MYCODE SPECIMEN-SST 01/10/2023 09:08:42 Freezing of extracted DNA, whole blood and/or serum. Final Performing Location [facility] - [address] [place] [address]
--- OUTSIDE RECORDS SUMMARY | 2023-06-20 00:45 | External Medical Summary ---
Author Name Unknown Address Unknown Organization K01:LABORATORY [facility] - [address] [facility] [place] [address] Laboratory Report Ordering Provider Test Date Status ERIKA HAWK 01/10/2023 09:08:42 Final Observation Date Value Abnormality Reference (Units ) Status SYNC LEUKOCYTES IN BLOOD BY AUTOMATED COUNT 01/10/2023 09:08:42 6.63 4.00-10.80 (K/uL) Final Segs 01/10/2023 09:08:42 61.9 40.0-75.0 (%) Final Lymphs % 01/10/2023 09:08:42 25.8 18.0-42.0 (%) Final Monos 01/10/2023 09:08:42 9.0 1.0-11.0 (%) Final Eosinophils 01/10/2023 09:08:42 2.1 0.0-6.0 (%) Final Basos 01/10/2023 09:08:42 0.6 0.0-2.0 (%) Final Immature Granulocyte, Percent 01/10/2023 09:08:42 0.6 0.0-2.0 (%) Final Absolute Segs 01/10/2023 09:08:42 4.10 1.80-7.70 (K/uL) Final Lymphs, absolute 01/10/2023 09:08:42 1.71 1.00-4.80 (K/ul) Final Monos, Abs 01/10/2023 09:08:42 0.60 0.00-1.10 (K/uL) Final Eos, Abs 01/10/2023 09:08:42 0.14 0.00-0.70 (K/uL) Final Basos, Abs 01/10/2023 09:08:42 0.04 0.00-0.20 (K/uL) Final Immature Granulocytes, Number 01/10/2023 09:08:42 0.04 0.00-0.20 (K/uL) Final Performing Location LABORATORY [facility] - [facility] [place] [address]
--- OUTSIDE RECORDS SUMMARY | 2023-06-20 00:45 | External Medical Summary ---
Author Name Unknown Address Unknown Organization K01:LABORATORY [facility] - [address] [place] [address] Laboratory Report Ordering Provider Test Date Status KALEB JJ 01/10/2023 09:08:42 Final Observation Date Value Abnormality Reference (Units ) Status MYCODE SPECIMEN-SST 01/10/2023 09:08:42 Freezing of extracted DNA, whole blood and/or serum. Final Performing Location [facility] - [address] [place] [address]
--- OUTSIDE RECORDS SUMMARY | 2023-06-20 00:45 | External Medical Summary ---
Author Name Unknown Address Unknown Organization K01:[facility]ORY [facility] - [address] [place] [address] Laboratory Report Ordering Provider Test Date Status ERIKA HAWK 01/10/2023 09:08:42 Final Deficient: <20 ng/mL
Ins ufficient: 20-29 ng/mL
Recommended/Optimum:30-50 ng/mL

Vitamin D intoxication is rare. If suspicious of Vitamin D toxicity, evaluation of serum Calcium and PTH is recommended. Observation Date Value Abnormality Reference (Units ) Status 25-OH Vitamin D total 01/10/2023 09:08:42 38 >19 (ng/mL) Final Performing Location LABORATORY C - [address] [place] [address]
--- OUTSIDE RECORDS SUMMARY | 2023-06-20 00:45 | External Medical Summary ---
Author Name Unknown Address Unknown Organization K01:[facility]ATORY [facility] - [address] [place] [address] Laboratory Report Ordering Provider Test Date Status ERIKA HAWK 01/10/2023 09:08:42 Final Observation Date Value Abnormality Reference (Units ) Status Parathyrin.intact [Mass/volume] in Serum or Plasma 01/10/2023 09:08:42 108 Above high normal 15-65 (pg/mL) Final Performing Location LABORATORY [facility] - [address] [place] [address]
--- OUTSIDE RECORDS SUMMARY | 2023-06-20 00:45 | External Medical Summary ---
Author Name Unknown Address Unknown Organization [id number]:LABORATORY [facility] [place] - [address] [place] [address] Laboratory Report Ordering Provider Test Date Status ERIKA HAWK 01/10/2023 09:08:42 Final Observation Date Value Abnormality Reference (Units ) Status WBC, Total 01/10/2023 09:08:42 6.63 4.00-10.80 (K/uL) Final RBC 01/10/2023 09:08:42 3.49 3.85-5.15 (M/uL) Final Hemoglobin 01/10/2023 09:08:42 10.4 Below low normal 12.0-15.3 (g/dL) Final HCT 01/10/2023 09:08:42 32.7 Below low normal 36.0-45.2 (%) Final MCV 01/10/2023 09:08:42 93.7 81.5-97.5 (fL) Final MCH 01/10/2023 09:08:42 29.8 27.0-34.0 (pg) Final MCHC 01/10/2023 09:08:42 31.8 32.0-36.0 (g/dL) Final RDW 01/10/2023 09:08:42 15.6 11.5-15.5 (%) Final Platelets 01/10/2023 09:08:42 308 140-400 (K/uL) Final MPV 01/10/2023 09:08:42 11.4 6.6-11.1 (fL) Final Nucleated erythrocytes/100 leukocytes [Ratio] in Blood by Automated count 01/10/2023 09:08:42 0 <=0 (/100 WBCs) Final Performing Location LABORATORY [facility] [place] - [address] [place] [address]
--- OUTSIDE RECORDS SUMMARY | 2023-06-20 00:45 | External Medical Summary ---
Author Name Unknown Address Unknown Organization [id number]:[facility] [place] - [address] [place] [address] Laboratory Report Ordering Provider Test Date Status ERIKA HAWK 01/10/2023 09:08:42 Final Observation Date Value Abnormality Reference (Units ) Status BUN 01/10/2023 09:08:42 25 Above high normal 6-20 (mg/dL) Final Creatinine 01/10/2023 09:08:42 1.6 Above high normal 0.5-1.0 (mg/dL) Final Glomerular filtration rate/1.73 sq M.predicted [Volume Rate/Area] in Serum, Plasma or Blood by Creatinine-based formula (CKD-EPI) 01/10/2023 09:08:42 35 Below low normal >=60 (mL/min) Final eGFR is calculated based on the CKD-EPI 2020 equation SODIUM 01/10/2023 09:08:42 135 135-146 (m mol/L) Final Potassium 01/10/2023 09:08:42 3.8 3.5-5.1 (m mol/L) Final Cl 01/10/2023 09:08:42 98 98-107 (mm ol/L) Final CO2 01/10/2023 09:08:42 23 22-32 (mmo l/L) Final Anion gap 01/10/2023 09:08:42 14 7-15 (mmol /L) Final Glucose 01/10/2023 09:08:42 193 Above high normal 70 -120 (mg/dL) Final Calcium 01/10/2023 09:08:42 9.6 8.4-10.2 ( mg/dL) Final Albumin 01/10/2023 09:08:42 3.9 3.8-5.0 (g /dL) Final Phosphate 01/10/2023 09:08:42 3.3 2.5-4.8 (m g/dL) Final Performing Location LABORATORY [facility] - [address] [place] [address]
--- OUTSIDE RECORDS SUMMARY | 2023-06-20 00:45 | External Medical Summary ---
Author Name Unknown Address Unknown Organization K01:LAB[facility]ATORY [facility] [place] - [address] [place] [address] Laboratory Report Ordering Provider Test Date Status ERIKA HAWK 01/10/2023 09:17:29 Final Normal: <150 mg/ g creatinine
High: 150-500 mg/g creatinine
Very High: >500 mg/g creatinine
Nephrotic: >3000 mg/g creatinine Observation Date Value Abnormality Reference (Units ) Status Protein/Creatinine [Ratio] in Urine 01/10/2023 09:17:29 232 Above high normal <150 (mg/g ) Final Protein, Urine 01/10/2023 09:17:29 22 (mg/dL) Final Creatinine, Urine 01/10/2023 09:17:29 95 (mg/dL) Final Performing Location LABORATORY [facility] [place] - [address] [place] [address]
--- OUTSIDE RECORDS SUMMARY | 2023-06-20 00:46 | External Medical Summary ---
Author Name Unknown Address Unknown Organization K01:LABORATORY [facility] [place] - [facility] [address] [place] [address] Laboratory Report Ordering Provider Test Date Status JANUARY SINGH 01/03/2023 10:02:38 Final Observation Date Value Abnormality Reference (Units ) Status BUN 01/03/2023 10:02:38 22 Above high normal 6-20 (mg/dL) Final Creatinine 01/03/2023 10:02:38 1.9 Above high normal 0.5-1.0 (mg/dL) Final Glomerular filtration rate/1.73 sq M.predicted [Volume Rate/Area] in Serum, Plasma or Blood by Creatinine-based formula (CKD-EPI) 01/03/2023 10:02:38 27 Below low normal >=60 (mL/min) Final eGFR is calculated based on the CKD-EPI 2020 equation SODIUM 01/03/2023 10:02:38 136 135-146 (m mol/L) Final Potassium 01/03/2023 10:02:38 4.2 3.5-5.1 (m mol/L) Final Cl 01/03/2023 10:02:38 96 Below low normal 98- 107 (mmol/L) Final CO2 01/03/2023 10:02:38 24 22-32 (mmo l/L) Final Anion gap 01/03/2023 10:02:38 16 Above high normal 7- 15 (mmol/L) Final Glucose 01/03/2023 10:02:38 215 Above high normal 70 -120 (mg/dL) Final Calcium 01/03/2023 10:02:38 9.7 8.4-10.2 ( mg/dL) Final Performing Location LABORATORY [facility] [place] - [address] [place] [address]
--- OUTSIDE RECORDS SUMMARY | 2023-06-20 00:46 | External Medical Summary | Summary of Care ---
Author Name Unknown Organization [facility] Address [address] [place] [address] Phone [phone] Care Team Providers Care Sales And Merchandising Representative Name Role Phone Nazia Asenciomarcos Fabiananay Primary Care Provider Encounter Details Date Type Department Care Team Description 01/03/2023 Telephone [facility] [address] [place] [address] Kristal Vora CRNP [address] [place] [address] Allergies Active Allergy Reactions Severity Noted Date [...] as of this encounter (statuses as of 01/03/2023) Medications Medication Sig Dispensed Refills Start Date [...] 1 Each 5 10/20/2020 Active Dexcom G6 Warehouse Supervisor 3Rd Shift DeviceIndications:Typ e 2 diabetes mellitus with stage [...] nephropathy, with long-term current use of insulin ([facility]) CHEW 1 TABLET BY MOUTH EVERY DAY [...] mellitus with neurological manifestations ([facility]) Inject 20 Units under the skin in [...] 08/06/2022 Active Additional Information Patient taking differently:2 [place] Each NostrilBID(AM/PM), Reported on 12/24/2022 Famotidine 40 [...] Information Patient not taking.Reported on 12/24/2022 Methscopolamine [place] 2.5 MG Oral TabletIndications:Irr itable bowel syndrome [...] as of this encounter (statuses as of 01/03/2023) Active Problems Patient Care Coordination No te Formatting of this note migh t be different from the original. Patient's 'Red Flags': 1. N/v/diarrhea 2. Decreased urine output 3. 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 08/22/2021 Unspecified mood (affective) disorder Panic disorder 08/22/2021 KARI (generalized anxiety disorder) 10/14 PVC's (premature ventricular contraction s) 10/14/2020 PTSD (post-traumatic stress disorder) Persistent insomnia 10/05/2020 Chronic kidney disease, stage 3a 021 Overview: Per CKD protocol Type 2 diabetes [...] 05/06/2019 11:23 AM Major depressive disorder, recurrent, mo derate 08/15/2020 Iron metabolism disease 08/15/2020 Hypertensive kidney disease with stage 3 a chronic kidney disease 04/04/2020 Overview: Per CKD protocol - HTN + [...] daily Lisinopril remains on hold 2/2 hypotension KATERIN (obstructive sleep apnea) 11/13/2019 Last Assessment [...] as of this encounter (statuses as of 01/03/2023) Resolved Problems Problem Noted Date Resolved Date Cardiogenic shock 01/03/2023 01/03/2023 Acute respiratory disease due to COVID-19 virus 09/22/2021 02/15/2022 Unspecified mood (affective) disorder 08/15/2020 10/14/2020 Type 2 diabetes mellitus wit h stage [...] 018 Overview: Signed 06/04/2014 Pranav Sanchez MD [facility] [place] Spinal pain 06/04/2014 02/02/2017 Type 2 diabetes [...] as of this encounter (statuses as of 01/03/2023) Immunizations Name Administration Dates Next Due COVID-19 [...] encounter Miscellaneous Notes * Telephone Encounter - Kate Ye RPh - 01/03/2023 2:15 PM EDT PCP needs to clear her to r/s ozempic after last hospital stay. Kate Ye, Pharm D, BCACP Clinical Pharmacist 01/03/2023, 2:15 PM * Telephone Encounter - ADELA Ashraf - 01/03/2023 2:06 PM EDT I had a telemed visit with liane today She is concerned with her blood sugars running high over last week- This am 234 On glucometer 185 -changed sensor today - 3 day average is 189 She is questioning if she should restart ozempic. Do you have any recommendations? Thank you ADELA Nowak [facility], [facility] documented in this encounter Plan of Treatment Upcoming Encounters Date Type Specialty Care Team Description 01/04/2023 Office Visit Nephrology Eric Day MD [address] [facility], [place] [address] 01/14/2023 Office Visit Gastroenterology Iris Cerrato PA-C [address] [place] [address] 01/15/2023 Home Visit [facility] Penny Parikh, JOVANY [address] [place] [address] 01/16/2023 Office Visit Gastroenterology Geovanna Bahena CRNP [address] [place] [address] 01/17/2023 Imaging Radiology 01/17/2023 Imaging Radiology 02/15/2023 Office Visit Cardiology Sophy Sands PA-C [address] [place] [address] 02/21/2023 Office Visit Ophthalmology Ernie Rivers, DO [address] [place] [address] 04/09/2023 Office Visit Family Medicine Chris Asencio DO [address] [place] [address] 04/24/2023 Office Visit Pharmacy [facility] [address] [place] [address] 05/06/2023 Office Visit Nephrology Eric Day MD [address] [place] [address], [place] [address] Scheduled Procedures Name Priority Associated Diagnoses Date/Ti me COLONOSCOPY FLEXIBLE PROXIMA L DIAGNOSTIC Recall Family history of colon cancer Health Maintenance Due Date Last Done Comments Zoster Vaccines (2 of 3) 05/07/2013 03/12/2013 COVID-19 Vaccine (3 - Pfizer series) 11/04/2020 09/09/2020, 08/19/2020 DIABETES-FOOT EXAM 05/23/2021 05/23/2020, 1 06/06/2018, 06/05/2018, Additional history exists Mammogram 01/17/2023 01/17/2022, 080 01/2022, 06/09/2019, Additional history exists Influenza Vaccine (FLU shot) (#1) 2023 03/01/2022, 03/27/2021, 03/04/2020, Additional history exists HbA1c 03/08/2023 09/06/2022, 07/25, 03/01/2022, Additional history exists GFR 06/30/2023 12/28/2022, 08/25, 03/01/2022, Additional history exists DIABETES-EYE EXAM 08/10/2023 08/09/2022, , 04/13/2021, Additional history exists Albumin/Creatinine Ratio 09/07/2023 023, 11/24/2021, 11/15/2020, Additional history exists CKD PHOS USE SMARTSET 94504 09/07/202308/25, 03/01/2022, 03/27/2021, Additional history exists Depression Screening, Annual for Pts 12 and Over 10/13/2023 10/12/2022 CKD HGB USE SMARTSET 10593 12/29/202312/28, 12/28/2022, 09/06/2022, Additional history exists COLONOSCOPY-EVERY [...] Documents on File Type Date Recorded Patient Academic Administrator Expl anation POLST 10/20/2021 [place] OR [facility] FOR [facility]-SUSTAINING [...] the patient have Health Care Power of Apparel Cutter? No Care Teams Sales And Merchandising Representative Relationship Specialty Start Date End Date Chris Asencio DO [address] [place] [address] PCP - General Family Medicine 01/07/18 documented as of this encounter
--- OUTSIDE RECORDS SUMMARY | 2023-06-20 00:46 | External Medical Summary | Summary of Care ---
Author Name Unknown Organization [facility] Address [address] [place] [address] Phone [phone] Care Team Providers Care Operations Officer Name Role Phone Luis M Chris Fabiananay Primary Care Provider Reason for Visit * Reason Comments Outpatient Testing Encounter Details Date Type Department Care Team Description 01/03/2023 Laboratory Laboratory, [facility] [address] [place] [address] [facility] [address] [place] [address] DAVONTE (acute kidney injury) (HCC) Allergies Active Allergy Reactions Severity Noted [...] DX E11.9 400 Each 3 04/16/2019 Active AMBULATORY MISCELLANEOUS MEDICATION ILERA "DREAM". Tincture: 8 parts THC:1 part CBD Patient takes 1 full dropper under tongue every night at bedtime 0 Active clonazePAM 0.5 MG Oral Tablet Take [...] 1 Each 5 10/20/2020 Active Dexcom G6 Purchasing Department Clerk DeviceIndications:Typ e 2 diabetes mellitus with [...] 08/06/2022 Active Additional Information Patient taking differently:2 [place] [...] Information Patient not taking.Reported on 12/24/2022 Methscopolamine [place] 2.5 MG Oral TabletIndications:Irr itable bowel syndrome with diarrhea TAKE 1 TAB UP TO 3 TIMES DAILY NEEDED FOR ABDOMINAL CRAMPS & DIARRHEA, 270 Tablet 1 11/08/2022 Active OneTouch Verio In Vitro Strip (Glucose Blood)Indications: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 0 Active Pantoprazole Sodium 40 MG Oral Tablet Delayed Release (Protonix) Take 1 Tablet by mouth in the morning and 1 Tablet before bedtime. 0 Active Ondansetron 4 MG Oral Tablet Disintegrating (Zofran) Place 1 Tablet on tongue every 6 hours as needed for Nausea. dissolve on tongue. 0 Active Albuterol Sulfate (2.5 MG/3ML) 0.083% Inhalation Nebulization Solution Inhale 1 Vial via nebulizer every 4 hours as needed for Wheezing or Shortness of Breath. 0 Active Triamcinolone Acetonide 0.1 % External [...] get out of bed Problem Noted Date Cardiogenic shock 01/03/2023 Dyslipidemia, goal LDL below 70 03/06/20 22 [...] of insulin 10/04/2020 Overview: Per CKD protocol Major depressive disorder, recurrent, mo derate 08/15/2020 Iron metabolism disease 08/15/2020 Hypertensive kidney disease with stage 3 a chronic kidney disease 04/04/2020 Overview: Per CKD protocol - HTN + CKD III - conditions have assumed relationship per current coding guidelines. KATERIN (obstructive sleep apnea) 11/13/2019 Medical marijuana use 11/13/2019 Ganglion cyst of volar aspect of left wr ist 07/01/2019 Primary pulmonary hypertension 9 Type 2 diabetes mellitus with hemoglobin A1c goal of less than 8.0% 11/04/2018 Type 2 diabetes mellitus wit h diabetic nephropathy, with long-term current use of insulin 11/04/2018 Moderate persistent asthma without compl ication 07/10/2018 Restless legs syndrome 07/10/2018 Type II diabetes mellitus with neurologi quinn manifestations 06/05/2018 HTN, goal below 130/80 08/01/2015 Overview: Per HTN Protocol #27. Gastroesophageal reflux disease with eso phagitis without hemorrhage 01/16/2012 Irritable bowel syndrome documented as of this encounter (statuses as of 01/03/2023) Resolved Problems Problem Noted Date Resolved Date Acute respiratory disease due to COVID-19 [...] /min) 06/08/2019 11/05/2019 Overview: Per CKD protocol Current use of insulin 07/10/2018 Body mass [...] exacerbation 10/17/2016 02/02/2017 MEDICATION USE AGREEMENT 06/04/2014 12/19/2 018 Overview: Signed 06/04/2014 Pranav Sanchez MD [facility] Pharm[facility] [place] Spinal pain 06/04/2014 02/02/2017 Type 2 diabetes [...] mRNA, LNP-s, No Pre serve, 2-Dose Series (L3) 09/09/2020,08/19/2020 Pneumococcal Conjugate Vacc, 13 Valent (Prevnar) [...] Encounters Date Type Specialty Care Team Description 01/03/2023 Telemedicine [facility] Kristal Vora CRNP [address] [facility] [place] [address] [facility] Nurse [address] [place] [address] [place] [address] 01/04/2023 Office Visit Nephrology Eric Day MD [address] [facility] [place] [address] 01/14/2023 Office Visit Gastroenterology Iris Cerrato PA-C [address] [place] [address] 01/15/2023 Home Visit [facility] Penny Parikh RN [address] [place] [address] 01/16/2023 Office Visit Gastroenterology Geovanna Bahena CRNP [address] [place] [address] 01/17/2023 Imaging Radiology 01/17/2023 Imaging Radiology 02/15/2023 Office Visit Cardiology Sophy Sands PA-C [address] [place] [address] 02/21/2023 Office Visit Ophthalmology Ernie Rivers, DO [address] [place] [phone] 04/09/2023 Office Visit Family Medicine Chris Asencio DO [address] [place] [address] 04/24/2023 Office Visit Pharmacy [facility] [place] [address] [place] [address] 05/06/2023 [facility] [address] Pending Results Name Type Priority Associated Diagnoses Date /Time BASIC METABOLIC PANEL Lab Routine DAVONTE (acute kidney injury) (HCC) 01/03/2023 10:02 AM EDT Scheduled Procedures Name Priority Associated [...] Additional history exists CKD PHOS USE SMARTSET 22875 09/07/202308/25, 03/01/2022, 03/27/2021, Additional history exists Depression Screening, Annual for Pts 12 and Over 10/13/2023 10/12/2022 CKD HGB USE SMARTSET 97488 12/29/202312/28, 12/28/2022, 09/06/2022, Additional history exists COLONOSCOPY-EVERY [...] as of this encounter Visit Diagnoses Diagnosis Cardiogenic shock (HCC) Cardiogenic shock DAVNOTE (acute kidney injury) (HCC) Acute kidney failure, unspecified documented in this encounter Advance Directives Documents on File Type Date Recorded Patient Product Support Representative Expl anation POLST 10/20/2021 [place] OR [facility] FOR LIFE-SUSTAINING [...] the patient have Health Care Power of Prop And Effects Designer? No Care Teams Operations Officer Relationship Specialty Start Date End Date Chris Asencio DO [address] [place] [address] PCP - General Family Medicine 01/07/18 documented as of this encounter
--- OUTSIDE RECORDS SUMMARY | 2023-06-20 00:46 | External Medical Summary | Summary of Care ---
Author Name Unknown Organization [facility] Address [address] [place] [address] Phone [phone] Care Team Providers Care Grain Buyer Name Role Phone Nazia Asenciomarcos Fabiananay Primary Care Provider Encounter Details Date Type Department Care Team Description 01/03/2023 Telephone [facility] [address] [place] [address] Kristal Vora CRNP [address] [place] [address] Allergies Active Allergy Reactions Severity Noted Date [...] 1 Each 5 10/20/2020 Active Dexcom G6 Milk Vendor DeviceIndications:Typ e 2 diabetes mellitus with [...] long-term current use of insulin ([facility]) CHEW 1 TABLET BY MOUTH EVERY DAY [...] hemoglobin A1c goal of 7.0%-8.0% ([facility]),Type 2 diabetes mellitus with stage 3a chronic kidney disease, with long-term current use of insulin ([facility]),Type II diabetes mellitus with neurological manifestations ([facility]) Inject 20 Units under the skin in [...] 08/06/2022 Active Additional Information Patient taking differently:2 [place] Each NostrilBID(AM/PM), Reported on 12/24/2022 Famotidine 40 [...] Information Patient not taking.Reported on 12/24/2022 Methscopolamine [place] 2.5 MG Oral TabletIndications:Irr itable bowel syndrome [...] 018 Overview: Signed 06/04/2014 Pranav Sanchez MD [facility] Pharm[facility] [place] Spinal pain 06/04/2014 02/02/2017 Type 2 diabetes [...] have any recommendations? Thank you ADELA Nowak [facility], [facility] documented in this encounter Plan of Treatment Upcoming Encounters Date Type Specialty Care Team Description 01/04/2023 Office Visit Nephrology Eric Day MD [address] [facility], [place] [address] 01/14/2023 Office Visit Gastroenterology Iris Cerrato PA-C [address] [place] [address] 01/15/2023 Home Visit [facility] Penny Parikh, JOVANY [address] [place] [address] 01/16/2023 Office Visit Gastroenterology Geovanna Bahena CRNP [address] [place] [address] 01/17/2023 Imaging Radiology 01/17/2023 Imaging Radiology 02/15/2023 Office Visit Cardiology Sophy Sands PA-C [address] [place] [address] 02/21/2023 Office Visit Ophthalmology Ernie Rivers, DO [address] [place] [address] 04/09/2023 Office Visit Family Medicine Chris Asencio DO [address] [place] [address] 04/24/2023 Office Visit Pharmacy [facility] [address] [place] [address] 05/06/2023 Office Visit Nephrology Eric Day MD [address] [place] [address], [place] [address] Scheduled Procedures Name Priority Associated Diagnoses Date/Ti [...] Additional history exists CKD PHOS USE SMARTSET 53875 09/07/202308/25, 03/01/2022, 03/27/2021, Additional history exists Depression Screening, Annual for Pts 12 and Over 10/13/2023 10/12/2022 CKD HGB USE SMARTSET 91379 12/29/202312/28, 12/28/2022, 09/06/2022, Additional history exists COLONOSCOPY-EVERY [...] on File Type Date Recorded Patient Manager Freelance Expl anation POLST 10/20/2021 [place] OR [facility] FOR [...] the patient have Health Care Power of Wire Spooler? No Care Teams Grain Buyer Relationship Specialty Start Date End Date Chris Asencio DO [address] [place] [address] PCP - General Family Medicine 01/07/18 documented as of this encounter
--- OUTSIDE RECORDS SUMMARY | 2023-06-20 00:46 | External Medical Summary | Summary of Care ---
Author Name Unknown Organization [facility] Address [address] [place] [address] Phone [phone] Care Team Providers Care Project Analyst Name Role Phone Luis M Chris Fabiananay Primary Care Provider Encounter Details Date Type Department Care Team Description 01/03/2023 Telemedicine [facility] [address] [place] [address] Kristal Vora CRNP [address] [place] [place] [address] Alexandria Dan [address] [place] [address] Advanced care planning/counseling discussion*; Primary pulmonary hypertension (HCC); KATERIN (obstructive sleep apnea); Moderate persistent asthma without complication; Gastroesophageal reflux disease with esophagitis without hemorrhage; Type 2 diabetes mellitus with stage 3a chronic kidney disease, with long-term current use of insulin (HCC); Hypertensive kidney disease with stage 3a chronic kidney disease (HCC) Allergies Active [...] 1 Each 5 10/20/2020 Active Dexcom G6 Engineering Lecturer DeviceIndications:Ty pe 2 diabetes mellitus with stage [...] long-term current use of insulin ([facility]) CHEW 1 TABLET BY MOUTH EVERY DAY [...] 04/04/2022 Active Furosemide 40 MG Oral Tablet (Lasix)Indications:V enous insufficiency,HTN, goal below 140/90 TAKE 1 TABLET BY MOUTH EVERY DAY 90 Tablet 3 04/04/2022 Active Toujeo SoloStar 300 UNIT/ML Subcutaneous Solution Pen-injector (Insulin Glargine (1 Unit Dial))Indications:Ty pe 2 diabetes mellitus with hemoglobin A1c goal of 7.0%-8.0% ([facility]),Type 2 diabetes mellitus with stage 3a chronic kidney disease, with long-term current use of insulin ([facility]),Type II diabetes mellitus with neurological manifestations ([facility]) Inject 20 Units under the skin in [...] 08/06/2022 Active Additional Information Patient taking differently:2 [place] Each NostrilBID(AM/PM), Reported on 12/24/2022 Famotidine 40 [...] Information Patient not taking.Reported on 12/24/2022 Methscopolamine [place] 2.5 MG Oral TabletIndications:Ir ritable bowel syndrome [...] NIGHTLY NEEDED 30 g 0 01/02/2023 Active AMBULATORY MISCELLANEOUS MEDICATION ILERA "DREAM". Tincture: 8 parts THC:1 part CBD Patient takes 1 full dropper under tongue every night at bedtime 0 01/04/20 Discontinu ed(Medicat ion List Clean Up) Fluconazole 100 MG Oral Tablet (Diflucan) Take 1 Tablet by mouth in the morning. 0 01/04/20 Discontinu ed(Medicat ion List Clean Up) Ondansetron 4 MG Oral Tablet Disintegrating (Zofran) Place 1 Tablet on tongue every 6 hours as needed for Nausea. dissolve on tongue. 0 01/04/20 Discontinu ed(Medicat ion List Clean Up) Albuterol Sulfate (2.5 MG/3ML) 0.083% Inhalation Nebulization Solution Inhale 1 Vial via nebulizer every 4 hours as needed for Wheezing or Shortness of Breath. 0 01/04/20 23 Discontinu ed(Medicat ion List Clean Up) [...] 018 Overview: Signed 06/04/2014 Pranav Sanchez MD [facility] [place] Spinal pain 06/04/2014 02/02/2017 Type 2 diabetes [...] Sign Reading Time Taken Comments Blood Pressure 122/70 01/03/2023 1:15 PM EDT Pulse 80 01/03/2023 1:15 PM EDT Temperature 36.4 C (97.5 F) 01/03/2023 1:15 PM ED T Respiratory Rate 16 01/03/2023 1:15 PM EDT Oxygen Saturation 98% 01/03/2023 1:15 PM EDT Inhaled Oxygen Concentration - - Weight - - Height - - Body Mass Index - - documented in this encounter Progress Notes * Alexandria Dan [facility] Environmental Assistant - 01/03/2023 1:27 PM EDT Community [facility] Environmental Assistant Visit Date: 01/03/2023 Time: 1:27 PM Name: Liane Alejandre : 1950 Referral Source: operations research manager Source of Information: Patient Spoken language: Citizen Of [place] Patient can read in Citizen Of [place]: Yes. Cuprous Chloride Helper needed: No. COVID-19 screening completed: Yes Vitals: Vital signs completed: Yes, vital signs within normal range. BP 122/70 (BP Site: Right Arm, BP Position: Sitting, BP Cuff Size: Regular) | Pulse 80 | Temp 36.4 C (97.5 F) | Resp 16 | SpO2 98% Condition Changes: Changes in health or social status since last visit: [facility] home visit for return telemed with [facility] provider. The patient has new concerns since last visit: Yes, feeling more fatigued than usual. States she was very active yesterday, "and I'm paying for it today". Progress towards goals since last visit: Continues working toward goals 1. To be able to work in garden 2. To be able to be useful to others Medications: Medication review completed? No, Does the patient have barriers to medication adherence? No. Patient reports difficulty paying for medications or might in the future: No. Telehealth: This is a telehealth visit: Yes. Type of telehealth visit: Transition of Care Visit conducted with: Physician/AP Symptoms Surveys and Evaluations: [facility]10 completed this visit: Yes. Score is 4 or more? Yes, notified Provider/Quilt Stuffer Last flowsheet values for [facility]0: Age 65+: 1 (01/03/2023 1:00 PM) Diagnosis [...] at risk for fallin (01/03/2023 1:00 PM) Transition of Care: Patient complains/reports: increased fatigue from baseline. Provider aware. Plan: Reinforced patient's three red flags by the care team 1. N/V/D 2. Decreased urine output 3. Unable to get out of bed Follow Up: Patient encouraged to call the intake phone number for all urgent but not emergent issues. Scheduled to follow up with patient in as scheduled. [facility] Environmental Assistant 01/03/2023 1:27 PM * ADELA Ashraf - 01/03/2023 10:11 AM EDT Images from the original note were not included. [facility] Problem Oriented Charting Provider Visit Date: 01/03/2023 Time: 10:11 AM [facility] Sub-Program: Focused Care Management (3-9 months) [facility] Episode Start Date: Noted: 12/17/2022 Assessment and Plan #1 Advanced care planning/counseling discussion #2 Primary pulmonary hypertension (HCC) Assessment & Plan: Controlled with current lasix 40 mg daily Follows with cardiology #3 KATERIN (obstructive sleep apnea) Assessment & Plan: Prescribed Bipap- patient does not use it Has not used in over 1.5 years #4 Moderate persistent asthma without complication Assessment & Plan: singulair daily breo daily pulmicort nebs BID PFT 2019 Has rescue inhaler uses very seldom Cannot use albuterol nebs d/t hear racing and increased anxiety #5 Gastroesophageal reflux disease with esophagitis without hemorrhage Assessment & Plan: protonix 40 mg BID #6 Type 2 diabetes mellitus with stage 3a [...] - [facility] 7.6 (H) 05/06/2019 11:23 AM #7 Hypertensive kidney disease with stage 3a chronic kidney disease (HCC) Overview: Per CKD protocol - HTN + CKD III - conditions have assumed relationship per current coding guidelines. Assessment & Plan: Current Status: "Stable" for [...] daily Lisinopril remains on hold 2/2 hypotension Additional Medical Decision Making: New enrollment- Had repeat labs done today - results not avail at this time- Concern with blood sugars Check-out note: Please help in scheduling the recommended follow up as listed below: Luci WOOD (see care team) within approx 2-3 months for Telemedicine Visit Scheduled appointments in the next 60 days: Future Appointments-next 60 days Date/Time Provider Specialty Dept Phone 01/03/2023 1:00 PM Alexandria Dan, [facility] Environmental Assistant; ADELA Ashraf [facility] [phone] 01/04/2023 9:00 AM (Arrive by 8:45 AM) Eric Day MD Nephrology [phone] 01/14/2023 12:00 PM (Arrive by 11:45 AM) Iris Cerrato PA-C Gastroenterology [phone] 01/15/2023 4:00 PM Penny Parikh RN [facility] [phone] 01/16/2023 2:00 PM (Arrive by 1:45 PM) ADELA Puentes Gastroenterology [phone] 01/17/2023 1:00 PM (Arrive by 12:45 PM) [id number] Radiology [phone] 01/17/2023 1:30 PM (Arrive by 12:45 PM) [address] Radiology [phone] 02/15/2023 1:00 PM (Arrive by 12:45 PM) Sophy Sands PA-C Cardiology [phone] 02/21/2023 2:15 PM Ernie Rivers DO Ophthalmology [phone] 04/09/2023 3:20 PM (Arrive by 3:05 PM) Chris Asencio DO Family Medicine [phone] 04/24/2023 2:00 PM [facility] [phone] 05/06/2023 3:20 PM (Arrive by 3:05 PM) Eric Day MD Nephrology [phone] Subjective Subjective Is this a Telemedicine Visit? Yes, Patient location: HOME. I was not in a hospital or clinic location. After connecting through televideo, patient was verified with two unique identifiers. Patient (or authorized legal senior human resources representative) was then informed that this was a Telemedicine visit and being conducted confidentially over secure lines. Methods to assure confidentiality were taken. Patient acknowledged consent and understanding of privacy and security of the Telemedicine visit. The patient agreed to participate. Reason For [facility] Visit: Enrollment Current Concerns: Liane Alejandre is a 72 year old female seen today for a [facility] provider visit. hospitalization for septic shock, DAVONTE, UTI. Pt admitted to [facility] 12/12-12/22/22. Blood and urine cultures both +for klebsiella. Full course of antibiotics finished while inpatient- found to have HGB 7- EGD showed gastritis and esophageal candidiasis- treated with fluconazole continue PPI 12/27- RN enrollment- ozempic remains on hold at this time per PCP- 3 days left of fluconazole- 01/01 PCP- HGB is trending- her CR increased - recommend hydrate- repeat BMP in 2- 3 days- follow up with nephro Today's concerns are: Sitting in kitchen- feeling tired - usual for her to have good and bad days - does not rest enough Completed fluconazole Denies s/s bleeding in urine or stool Having formed stool no diarrhea Only concern is blood sugar- was told not to use SSI and her BG have been high up to 200 Has dexcom- This am 234 On glucometer 185 - changed sensor today - 3 day average is 189 Has appt with nephrology tomorrow Additional Review of Systems Constitutional: Negative for activity change, appetite change (eating smaller amounts but good appetite), chills and fever. Respiratory: Negative for cough and shortness of breath. Cardiovascular: Positive for leg swelling (RLE- baseline - has DEL stockings ). Negative for chest pain and palpitations. Gastrointestinal: Positive for nausea (intermittent- use compazine PRN ). Negative for abdominal pain, diarrhea and vomiting. Genitourinary: Negative for difficulty urinating, dysuria and hematuria. Musculoskeletal: Positive for arthralgias (BL knees- chronic). Skin: Negative for rash and wound. Neurological: Positive for light-headedness (intermittent with low BP). Negative for dizziness and speech difficulty. Psychiatric/Behavioral: Negative for confusion. Objective Objective Vitals: 01/03/23 1315 Temp: 36.4 C (97.5 F) Pulse: 80 Resp: 16 SpO2: 98% BP: 122/70 BP Readings from Last 3 Encounters: 01/03/23 122/70 12/27/22 92/60 12/24/22 100/56 Last Weights: Wt Readings from Last 3 Encounters: 12/27/22 105.7 kg (233 lb) 12/24/22 106 kg (233 lb 11.2 oz) 10/12/22 112 kg (246 lb 14.4 oz) Last BPs: BP Readings from Last 4 Encounters: 01/03/23 122/70 12/27/22 92/60 12/24/22 100/56 10/12/22 96/54 Physical Exam Constitutional: General: She is not in acute distress. Appearance: She is not ill-appearing. Cardiovascular: Rate and Rhythm: Normal rate and regular rhythm. Pulmonary: Effort: Pulmonary effort is normal. Breath sounds: Normal breath sounds. No wheezing, rhonchi or rales. Skin: General: Skin is warm and dry. Coloration: Skin is not pale. Neurological: Mental Status: She is alert and oriented to person, place, and time. Psychiatric: Mood and Affect: Mood normal. Behavior: Behavior normal. Lab Review: I have reviewed the following results: BMP results Recent Labs Units 12/28/22 1149 09/06/22 1235 03/01/22 1317 09/20/21 0000 08/23/21 1002 SODIUM - [facility] mmol/L -- 139 138 -- 140 POTASSIUM - [facility] mmol/L -- 5.0 4.7 -- 4.3 POTASSIUM-OUTSIDE LAB MMOL/L -- -- -- 3.8 -- CHLORIDE - [facility] mmol/L -- 103 100 -- 101 CO2 - [facility] mmol/L -- 25 25 -- 28 CREATININE - [facility] mg/dL 2.3* 1.7* 1.1* -- 1.0 CREATININE-OUTSIDE LAB MG/DL -- -- -- 0.95 -- BUN - [facility] mg/dL -- 27* 18 -- 16 CBC results Recent Labs Units 12/28/22 1149 09/06/22 1235 03/19/22 1303 WBC AUTO - [facility] K/uL 4.74 6.03 9.48 HGB - [facility] g/dL 8.8* 11.4* 12.6 HCT - [facility] % 28.3* 35.3* 39.0 PLATELET AUTO - [facility] K/uL 472* 235 269 HbA1c results Recent Labs Units 09/06/22 1235 08/10/22 1122 03/01/22 1317 HEMOGLOBIN A1C - [facility] % 6.7* 6.7* 6.1* Medication Review "Bottles Out" medication review performed today and medication list in EMR updated ADELA Ashraf 10:11 AM *Communication sent to PCP (via autofax if [facility]), [facility] Care Team members,relevant Specialty Care Physicians* documented in this encounter Miscellaneous Notes * Assessment & Plan Note - ADELA Ashraf - 01/03/2023 12:20 PM EDT Associated Problem(s): Hypertensive kidney disease with stage 3a chronic kidney disease (HCC) Current Status: "Stable" for patient / [...] daily Lisinopril remains on hold 2/2 hypotension * Assessment & Plan Note - ADELA Ashraf - 01/03/2023 12:18 PM EDT Associated Problem(s): Type 2 diabetes [...] AM * Assessment & Plan Note - ADELA Ashraf - 01/03/2023 12:18 PM EDT Associated Problem(s): Gastroesophageal reflux disease with esophagitis without hemorrhage protonix 40 mg BID * Assessment & Plan Note - ADELA Ashraf - 01/03/2023 10:21 AM EDT Associated Problem(s): Moderate persistent asthma without complication singulair daily breo daily pulmicort nebs BID PFT 2019 Has rescue inhaler uses very seldom Cannot use albuterol nebs d/t hear racing and increased anxiety * Assessment & Plan Note - ADELA Ashraf - 01/03/2023 10:21 AM EDT Associated Problem(s): KATERIN (obstructive sleep apnea) Prescribed Bipap- patient does not use it Has not used in over 1.5 years * Assessment & Plan Note - ADELA Ashraf - 01/03/2023 10:20 AM EDT Associated Problem(s): Primary pulmonary hypertension (HCC) Controlled with current lasix 40 mg daily Follows with cardiology * ACP (Advance Care Planning) - ADELA Ashraf - 01/03/2023 10:18 AM EDT Patient-centered Communication 01/03/2023 Location: Home Individual(s) present for conversation: Patient Decisions Synopsis SmartLink Most Recent Value Past ~10 years 01/03/2023 14:03 Decisions CPR decision: Declines CPR 01/03/2023 Declines CPR Intubation/Mechanical Ventilation decision: Declines Intubation/mechanical ventilation 01/03/2023 Declines Intubation/mechanical ventilation Non-invasive ventilation or BIPAP decision: Patient chooses non-invasive ventilation. Select interventions below 01/05/2022 Non-Invasive Ventilation Interventions: Oxygen only 01/05/2022 Antibiotic therapy decision: Patient chooses Antibiotic therapy 01/03/2023 Patient chooses Antibiotic therapy Artificial nutrition decision: Declines Artificial nutrition 01/03/2023 Declines Artificial nutrition IV hydration decision: Patient chooses IV hydration 01/03/2023 Patient chooses IV hydration Surgical procedure(s) decision: Patient chooses Surgical procedure 01/05/2022 Blood transfusion decision: Patient chooses Blood transfusion 01/05/2022 Lab draw decision: Patient chooses Lab draws 01/05/2022 Transport decision: Patient chooses Transport 01/05/2022 Dialysis decision: Declines Dialysis 01/03/2023 Declines Dialysis Additional Comments Synopsis SmartLink Most Recent Value Past ~10 years 01/03/2023 14:03 Additional Comments Additional Comments: POLST on file reviewed and no changes wishes to remain DNR 01/03/2023 POLST on file reviewed and no changes wishes to remain DNR Discerning What Matters Most to the Patient: Synopsis SmartLink Most Recent Value Past ~10 years 12/27/2022 13:22 Discerning What Matters Most to the Patient In their own words, patient's UNDERSTANDING of their illness is: I know that I was very sick and they didn't know if I was going to make it 12/27/2022 I know that I was very sick and they didn't know if I was going to make it Their current SYMPTOMS include: Tiredness;Depression;Reduced overall well being 12/27/2022 Tiredness;Depression;Reduced overall well being They say their illness has CHANGED THEIR LIFE by: Less enjoyment (quality of life);Feel like a burden to family/loved ones 12/27/2022 Less enjoyment (quality of life);Feel like a burden to family/loved ones The patient thinks COMPLICATIONS in the future may be: More fatigue;More hospitalizations 12/27/2022 More fatigue;More hospitalizations The patient's HOPES are: Maintain current functional abilities;Avoid further hospitalization; with dignity (define below) 12/27/2022 Maintain current functional abilities;Avoid further hospitalization; with dignity (define below) The patient's FEARS/WORRIES about illness are: Being a burden to family 12/27/2022 Being a burden to family The patient's PRIOR EXPERIENCES: Pt is tearful and states above all else, she doesn't want to be a burden to her family. 12/27/2022 Pt is tearful and states above all else, she doesn't want to be a burden to her family. The patient considers these as 'UNACCEPTABLE OUTCOMES': Unable to talk/interact with loved ones;"Being a vegetable" (define below);Prolonged mechanical ventilation (define below) 12/27/2022 Unable to talk/interact with loved ones;"Being a vegetable" (define below);Prolonged mechanical ventilation (define below) Prolonged mechanical ventilation, patient defines as: does not want any mechanical ventilation 12/27/2022 does not want any mechanical ventilation Source: Content from [employer]ing [employer] Program Aligning Care With What Matters Most: Synopsis Virtual Ports Most Recent Value Past ~10 years 01/03/2023 14:03 Aligning Care With What Matters Most Interventions/Choices: CPR;Intubation/mechanical ventilation;Dialysis;Artificial nutrition;Antibiotic therapy 01/03/2023 CPR;Intubation/mechanical ventilation;Dialysis;Artificial nutrition;Antibiotic therapy Rationale for Decisions Source: Content from [employer]pecting Cho[employer] Program ADELA Ashraf documented in this encounter Plan of Treatment Upcoming Encounters Date Type Specialty Care Team Description 01/04/2023 [facility] [address] 01/14/2023 Office Visit Gastroenterology Iris Cerrato PA-C [address] [place] [address] 01/15/2023 Home Visit [facility] Penny Parikh, JOVANY [address] [place] [address] 01/16/2023 Office Visit Gastroenterology Geovanna Bahena CRNP [address] [place] [address] 01/17/2023 Imaging Radiology 01/17/2023 Imaging Radiology 02/15/2023 Office Visit Cardiology Sophy Sands PA-C [address] [place] [address] 02/21/2023 Office Visit Ophthalmology Ernie Rivers DO [facility] [place] [address] 04/09/2023 Office Visit Family Medicine Chris Asencio DO [address] [place] [address] 04/24/2023 Office Visit Pharmacy Janet Garza [address] [place] [address] 05/06/2023 Office Visit Nephrology Eric Day MD [address] [place] [address] Scheduled Procedures Name Priority Associated Diagnoses Date/Ti [...] Additional history exists CKD PHOS USE SMARTSET 84583 09/07/202308/25, 03/01/2022, 03/27/2021, Additional history exists Depression Screening, Annual for Pts 12 and Over 10/13/2023 10/12/2022 CKD HGB USE SMARTSET 47637 12/29/202312/28, 12/28/2022, 09/06/2022, Additional history exists COLONOSCOPY-EVERY [...] as of this encounter Visit Diagnoses Diagnosis Advanced care planning/counseling discussion- Primary Other specified counseling Primary pulmonary hypertension (HCC) Primary pulmonary hypertension KATERIN (obstructive sleep apnea) Obstructive sleep apnea (adult) (pediatric) Moderate persistent asthma without complication Unspecified asthma Gastroesophageal reflux disease with esophagitis without hemorrhage Type 2 diabetes mellitus with stage 3a chronic kidney disease, with long-term current use of insulin (HCC) Hypertensive kidney disease with stage 3a chronic kidney disease (HCC) documented in this encounter Advance Directives Documents on File Type Date Recorded Patient Instructional Services Librarian Expl anation POLST 10/20/2021 [place] [facility] FOR LIFE-SUSTAINING TREATMENT Latest Code Status on File Code Status Date Activated Date Inactivated Comments Full Code 03/30/2022 6:40 AM 03/30/2022 2:12 PM This order reflects the patients wishes and were consensually agreed upon. Question Answer Comments Discussion of Advance Directives occurred with: Patient Does the patient have a Living Will? No Does the patient have Health Care Power of Clean Up Worker? No Care Teams Project Analyst Relationship Specialty Start Date End Date Chris Asencio DO [address] [place] [address] PCP - General Family Medicine 01/07/18 documented as of this encounter
--- OUTSIDE RECORDS SUMMARY | 2023-06-20 00:46 | External Medical Summary | Summary of Care ---
Author Name Unknown Organization [facility] Address [address] [place] [address] Phone [phone] Care Team Providers Care Hardwood Floor Layer Name Role Phone AsencioNaziamarcos Fabiananay Primary Care Provider Reason for Visit * Reason Comments Chronic Kidney Disease (CKD) Encounter Details Date Type Department Care Team Description 01/04/2023 Office Visit Nephrology, Misty Calderon [address] [facility] [address] Eric Day MD [address] [facility] [address] DAVONTE (acute kidney injury) (HCC)*; Stage 3a chronic kidney disease (HCC) Allergies [...] as of this encounter (statuses as of 01/04/2023) Medications Medication Sig Dispensed Refills Start Date [...] 1 Each 5 10/20/2020 Active Dexcom G6 Rotary Cutter Operator DeviceIndications:Typ e 2 diabetes mellitus with [...] 08/06/2022 Active Additional Information Patient taking differently:2 [place] Each NostrilBID(AM/PM), Reported on 12/24/2022 Famotidine 40 [...] Information Patient not taking.Reported on 12/24/2022 Methscopolamine [place] 2.5 MG Oral TabletIndications:Irr itable bowel syndrome with diarrhea TAKE 1 TAB UP TO 3 TIMES DAILY NEEDED FOR ABDOMINAL CRAMPS & DIARRHEA, 270 Tablet 1 11/08/2022 Active Additional Information Patient not taking.Reported on 01/04/2023 Visualead In Vitro Strip (Glucose Blood)Indications:Typ e II [...] as of this encounter (statuses as of 01/04/2023) Active Problems Patient Care Coordination No te [...] as of this encounter (statuses as of 01/04/2023) Resolved Problems Problem Noted Date Resolved Date Cardiogenic shock 01/03/2023 01/03/2023 Acute respiratory disease due to COVID-19 virus 09/22/2021 02/15/2022 Unspecified mood (affective) disorder 08/15/2020 10/14/2020 Type 2 diabetes mellitus wit h stage 3 chronic kidney disease, with long-term current use of insulin 10/27/2019 05/13/2 021 Overview: DM2 + CKD III - [...] 018 Overview: Signed 06/04/2014 Pranav Sanchez MD [facility] [place] Spinal pain 06/04/2014 02/02/2017 Type 2 diabetes [...] as of this encounter (statuses as of 01/04/2023) Immunizations Name Administration Dates Next Due COVID-19 mRNA, LNP-s, No Pre serve, 2-Dose Series ([employer]) 09/09/2020,08/19/2020 Pneumococcal Conjugate Vacc, 13 Valent (Prevnar) [...] Sign Reading Time Taken Comments Blood Pressure 119/59 01/04/2023 8:55 AM EDT Pulse 77 01/04/2023 8:55 AM EDT Temperature 37.2 C (99 F) 01/04/2023 8:55 AM EDT Respiratory Rate 18 01/04/2023 8:55 AM EDT Oxygen Saturation 98% 01/04/2023 8:55 AM EDT Inhaled Oxygen Concentration - - Weight 102.5 kg (226 lb) 01/04/2023 8:55 AM EDT Height - - Body Mass Index 33.37 10/12/2022 2:18 PM EDT documented in this encounter Progress Notes * Eric Day MD - 01/04/2023 9:00 AM EDT Chief Complaint Patient presents with Chronic Kidney Disease (CKD) HPI: 72/F with h/o Severe ARF peak [...] just recently. Has Sig Psych problems too. Since last visit ----was admitted in [facility] November 2022 and was discharged December 22. Admission was for sepsis respiratory failure acute renal failure with a peak creatinine of 13.3 BUNof 174 and a potassium of 6.6 !!!!. On the day of discharge creatinine was down to 1.3. She has lotof lower extremity edema and was taking Lasix 40 twice daily. Lisinopril is still on hold. Summary of other hospital issues : [facility] 12/12/22 to 12/22/22 UTI, severe sepsis, DAVONTE, [...] colitis Ambulatory dysfunction Declined rehab, home PT/OT On the day of discharge December 22 creatinine was down to 1.3. She has lot of lower extremity edema and was taking Lasix 40 twice daily. Lisinopril is still on hold. However blood work from December 28 which was 5 days after discharge creatinine was up to 2.3 and yesterday is down to 1.9 with normal electrolytes. She is making good urine and edema is going down. She has not restarted Ozempic yet. Appetite still not good and she is predominantly drinking liquids but not enough solid food. 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 Moderate persistent asthma without complication J45.40 Restless legs syndrome G25.81 Primary pulmonary hypertension (HCC) I27.0 Type 2 diabetes mellitus with diabetic nephropathy, with long-term current use of insulin (HCC)E11.21, Z79.4 Ganglion cyst of volar aspect of left wrist M67.432 KATERIN (obstructive sleep apnea) G47.33 Medical marijuana use Z79.899 Hypertensive kidney disease with stage 3a chronic kidney disease (HCC) I12.9, N18.31 Major depressive disorder, recurrent, moderate (HCC) F33.1 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 Persistent insomnia G47.00 Chronic kidney disease, stage 3a (HCC) N18.31 Type 2 diabetes mellitus with stage 3a chronic kidney disease, with long- term current use of insulin (HCC) E11.22, N18.31, Z79.4 KARI (generalized anxiety disorder) F41.1 PVC's (premature ventricular contractions) I49.3 PTSD (post-traumatic stress disorder) F43.10 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 Doxepin HCl 100 MG Oral Capsule (SINEquan) Take 1 Capsule by mouth at bedtime. Dexcom G6 Sensor Use as directed. 1 Each 5 BD Pen Needle Mini U/F 31G X 5 MM (Insulin Pen Needle) USE DIRECTED WITH NOVOLOG 300 Each 1 Systane Complete 0.6 % Ophthalmic Solution (Propylene Glycol) Instill 1 Drop into both eyes in the morning and 1 Drop at noon and 1 Drop in the evening and 1 Drop before bedtime. Acetaminophen ER 650 MG Oral Tablet Extended [...] and 2 g at noon and 2 gin the evening and [address] 4 GRAMS TOPICALLY ON THE SKIN TWICE DAILY TO AFFECTED AREAS DIRECTED.) 300 g 4 Atorvastatin Calcium 40 MG Oral Tablet (Lipitor) TAKE 1 TABLET BY MOUTH EVERY DAY IN THE MORNING 90 Tablet 3 Ferate 240 (27 Fe) MG Oral Tablet (Ferrous Gluconate) TAKE BY MOUTH 1 TABLET DAILY . 90 Tablet 3 Furosemide 40 MG Oral Tablet (Lasix) TAKE 1 TABLET BY MOUTH EVERY DAY 90 Tablet 3 Toujeo SoloStar 300 UNIT/ML Subcutaneous Solution Pen-injector (Insulin Glargine (1 Unit Dial))Inject 20 Units under the skin in the [...] to the Emergency room. 2 Each 3 Prochlorperazine Maleate 10 MG Oral Tablet (Compazine) TAKE 1 TABLET BY MOUTH EVERY 6 HOURS NEEDED FOR NAUSEA 30 Tablet 0 Diphenoxylate-Atropine 2.5-0.025 MG Oral Tablet (Lomotil) Take 2 Tablets by mouth every 6 hoursas needed for Diarrhea. 30 Tablet 3 Breo Ellipta 100-25 MCG/ACT Inhalation Aerosol Powder Breath Activated (fluticasone furoate-vilanterol) INHALE 1 PUFF BY MOUTH EVERY DAY 180 Each 1 Pramipexole Dihydrochloride 1 MG Oral Tablet (Mirapex) Take 1 Tablet by mouth at bedtime. 90 Tablet 3 Pantoprazole Sodium 40 MG Oral Tablet Delayed Release (Protonix) Take 1 Tablet by mouth in the morning and 1 Tablet before bedtime. Triamcinolone Acetonide 0.1 % External Cream (Aristocort) APPLY TO RASH ON BODY NIGHTLY NEEDED 30 g 0 Spacer/Aero-Holding Chambers LAURA Use with inhaler. 1 Device 0 ONETOUCH DELICA LANCETS FINE MISC Use up to four times a day as directed DX E11.9 400 Each 3 Dexcom G6 Transmitter Use as directed. 1 Each 1 Dexcom G6 Rotary Cutter Operator Device Use as directed. 1 Each 1 BiPAP every night at bedtime . (Patient not taking: Reported on 09/06/2022) Proventil HFA 108 (90 Base) MCG/ACT Inhalation Aerosol Solution Inhale 1-2 Puffs by mouth 4 times a day as needed for Shortness of Breath or Wheezing. As needed (Patient not taking: Reported on 12/24/2022) Lisinopril 20 MG Oral Tablet (Prinivil) Take 1 Tablet by mouth in the morning. (Patient not taking: Reported on 12/24/2022) 90 Tablet 3 Ozempic (2 MG/DOSE) 8 MG/3ML Subcutaneous Solution Pen-injector (Semaglutide (2 MG/DOSE)) Inject 0.75 mL under the skin once a week. (Patient not taking: Reported on 12/24/2022) 9 mL 3 Methscopolamine [place] 2.5 MG Oral Tablet TAKE 1 TAB UP TO 3 TIMES DAILY NEEDED FOR ABDOMINAL CRAMPS & DIARRHEA, (Patient not taking: Reported on 01/04/2023) 270 Tablet 1 OneTouch Verio In Vitro Strip (Glucose Blood) USE UP TO 4 TIMES A DAY DIRECTED 100 Strip 11 Current Facility-Administered Medications Medication Dose Route Frequency Provider Last Rate Last Admin albuterol sulfate (PROVENTIL) (2.5 MG/3ML) 0.083% inhalation solution 2.5 mg 2.5 mg Nebulizer Q4H PRN Enrie Coker PA-C 2.5 mg at 08/22/18 1326 [...] Right 10/21/2014 Benign BREAST BIOPSY Right 02/14/2022 COLONOSCOPY 1999 COLONOSCOPY W/ BIOPSY (RECTUM) 12/17/2008 diverticulosis, stool aspirate,repeat in 5 yrs , random bx show no evidence of microscopic colitis COLONOSCOPY, DIAGNOSTIC (RECTUM) 12/07/2014 ischemic colitis, hyperplastic polyp, repeat 5 yrs/[facility] COLONOSCOPY, DIAGNOSTIC (RECTUM) 03/17/2021 poor prep/sigmoid diverticulosis/biopsies normal/recall 5 years/COLONOSCOPY FLEXIBLE PROXIMAL DIAGNOSTIC performed by Brittany Blackman MD at ENDOSCOPY [facility] EGD, FLEXIBLE, DIAGNOSTIC N/A 12/17/2022 esophageal plaques, suspicious for candidias/diffuse gastritis/biopsies confirm casie/EGD/MN EXC BREAST LESION RADMARK Right 03/30/2022 EXCISION OF BREAST LESION RADIOLOGICAL MARKER performed by Lila Mora MD at OR [facility] KNEE ARTHROSCOPY, DIAGNOSTIC 1989 Knee Arthroscopy REMOVE [...] file Gets together: Not on file Attends mormon service: Not on file Active member of [...] systems reviewed and negative OBJECTIVE:Physical Exam: BP 119/59 (BP Site: Right Arm, BP Position: Sitting, BP Cuff Size: Regular) | Pulse 77 | Temp 37.2 C (99 F) | Resp 18 | Wt 102.5 kg (226 lb) | SpO2 98% | BMI 33.37 kg/m | BSA 2.23 m MM-moist. No JVD Chest CTA CVS---RRR [...] mg/g 70 Microalb/cr ratio <30 mg/g creat DAVONTE (acute kidney injury) (HCC) (Primary) Recent complicated hospital stay with severe unless including respiratory failure sepsis with severe ATN with a peak creatinine of 13.3 BUN of 174 as well as multiple other issues. Fortunately recovered without dialysis and by day of discharge her creatinine was down to 1.3. Most recent blood work from yesterday shows a creatinine of 1.9. Will repeat labs again next week to follow the trend of the renal recovery. Her renal function does fluctuate a lot in seems to get worse very easily. it is very concerning that she has had 2 episodes of very very severe acute renal failure 1st in 2017 with a peak creatinine of 8.8 and now November 2022 with a peak creatinine of 13.3. However fortunately both times she recovered without dialysis. Stage 3a chronic kidney disease (HCC) Prior to this recent hospital admission her creatinine was around 1.7 back in August 2022. However she had a completely normal creatinine of 1 as of 2021. However it is very concerning that she has had 2 episodes of very very severe acute renal failure 1st in 2017 with a peak creatinine of 8.8 and now November 2022 with a peak creatinine of 13.3. However fortunately both times she recovered without dialysis. Labs as below January 10 - CBC WITH WBC DIFFERENTIAL; Future; Expected date: 01/10/2023 - PTH; Future; Expected date: 01/10/2023 - RENAL FUNCTION PANEL; Future; Expected date: 01/10/2023 - PROTEIN/ CREATININE RATIO, URINE; Future; Expected date: 01/10/2023 - MAGNESIUM; Future; Expected date: 01/10/2023 - 25-HYDROXY VITAMIN D; Future; Expected date: 01/10/2023 I spent a total of Greater than 55 mins (exact time 57 mins) on the date of service in preparation,delivery, and documentation of the care provided to Liane Alejandre excluding any time spent in the performance of separately billed services. Follow Up: Return in about 4 months (around 05/06/2023) for Clinic Visit. | For: Clinic Visit Eric Day MD documented in this encounter Nursing Notes * Domi Mallory RN - 01/04/2023 8:57 AM EDT Hospital discharge visit.States she is still very tired. Continues to have edema in feet and lower legs. present in room for visit. documented in this encounter Plan of Treatment Upcoming Encounters Date Type Specialty Care Team Description 01/14/2023 Office Visit Gastroenterology Iris Cerrato PA-C [address] [place] [address] 01/15/2023 Home Visit [facility] Penny Parikh, RN [address] [place] [address] 01/16/2023 Office Visit Gastroenterology Geovanna Bahena CRNP [address] [place] [address] 01/17/2023 Imaging Radiology 01/17/2023 Imaging Radiology 02/15/2023 Office Visit Cardiology Sophy Sands PA-C [address] [place] [address] 02/21/2023 Office Visit Ophthalmology Ernie Rivers DO [address] [facility] [place] [address] 04/09/2023 Office Visit Family Medicine Chris Asencio DO [address] [place] [address] 04/24/2023 Office Visit Pharmacy [facility] Amira [address] [place] [address] 05/06/2023 Office Visit Nephrology Eric Day MD [address] [facility] [place] [address] Scheduled Orders Name Type Priority Associated Diagnoses Orde r Schedule CBC WITH WBC DIFFERENTIAL Lab Routine Stage 3a chronic kidney disease (HCC) Expected: 01/10/2023 (Approximate), Expires: 07/03/2023 PTH Lab Routine Stage 3a chronic kidney disease (HCC) Expected: 01/10/2023 (Approximate), Expires: 07/03/2023 RENAL FUNCTION PANEL Lab Routine Stage 3a chronic kidney disease (HCC) Expected: 01/10/2023 (Approximate), Expires: 07/03/2023 PROTEIN/ CREATININE RATIO, URINE Lab Routine Stage 3a chronic kidney disease (HCC) Expected: 01/10/2023 (Approximate), Expires: 07/03/2023 MAGNESIUM Lab Routine Stage 3a chronic kidney disease (HCC) Expected: 01/10/2023 (Approximate), Expires: 07/03/2023 25-HYDROXY VITAMIN D Lab Routine Stage 3a chronic kidney disease (HCC) Expected: 01/10/2023 (Approximate), Expires: 07/03/2023 Scheduled Procedures Name Priority Associated Diagnoses Date/Ti [...] 09/06/2022, 07/25, 03/01/2022, Additional history exists GFR 07/06/2023 01/03/2023, 08/0 08/2022, 09/06/2022, Additional history exists DIABETES-EYE EXAM 08/10/2023 08/09/2022, , 04/13/2021, Additional history exists Albumin/Creatinine Ratio 09/07/2023 023, 11/24/2021, 11/15/2020, Additional history exists CKD PHOS USE SMARTSET 00780 09/07/202308/25, 03/01/2022, 03/27/2021, Additional history exists Depression Screening, Annual for Pts 12 and Over 10/13/2023 10/12/2022 CKD HGB USE SMARTSET 55336 12/29/202312/28, 12/28/2022, 09/06/2022, Additional history exists COLONOSCOPY-EVERY [...] as of this encounter Visit Diagnoses Diagnosis DAVONTE (acute kidney injury) (HCC)- Primary Acute kidney failure, unspecified Stage 3a chronic kidney disease (HCC) documented in this encounter Advance Directives Documents on File Type Date Recorded Patient Staff Analyst Expl anation POLST 10/20/2021 [place] [facility]-SUSTAIN[facility] TREATMENT [...] the patient have Health Care Power of Head Of Acquisitions? No Care Teams Hardwood Floor Layer Relationship Specialty Start Date End Date Chris Asencio DO [address] [place] [address] PCP - General Family Medicine 01/07/18 documented as of this encounter
--- OUTSIDE RECORDS SUMMARY | 2023-06-20 00:47 | External Medical Summary | Summary of Care ---
Author Name Unknown Organization [facility] Address [address] [place] [address] Phone [phone] Care Team Providers Care Slab Installer Name Role Phone Asencio Chris Fabiananay Primary Care Provider Reason for Visit * Reason Comments Outpatient Testing Encounter Details Date Type Department Care Team Description 12/28/2022 Laboratory Laboratory, [place] [address] [place] [address] [place] [address] [place] [address] Anemia, unspecified type Allergies Active Allergy Reactions Severity Noted Date [...] as of this encounter (statuses as of 12/28/2022) Medications Medication Sig Dispensed Refills Start Date [...] 1 Each 5 10/20/2020 Active Dexcom G6 Landscape Architecture Professor DeviceIndications:Typ e 2 diabetes mellitus with stage [...] of insulin ([facility]) CHEW 1 TABLET BY MOUTH EVERY [...] mellitus with neurological manifestations ([facility]) Inject 20 Units under the skin [...] 08/06/2022 Active Additional Information Patient taking differently:2 [place] Each NostrilBID(AM/PM), Reported on 12/24/2022 Famotidine 40 [...] Information Patient not taking.Reported on 12/24/2022 Methscopolamine [place] 2.5 MG Oral TabletIndications:Irr itable bowel syndrome [...] body nightly as needed 30 g 0 11/28/2022 Active Fluconazole 100 MG Oral Tablet [...] Wheezing or Shortness of Breath. 0 Active Hospital, Clinic, or Other Facility Administered Medication Ordered Dose Route Frequency Start Date End Date Status albuterol sulfate (PROVENTIL) (2.5 MG/3ML) 0.083% inhalation solution 2.5 mgIndications:Moderate persistent asthma without complication 2.5 mg NEBULIZER Q4H PRN 08/13/2018 Active documented as of this encounter (statuses as of 12/28/2022) Active Problems Patient Care Coordination No te [...] as of this encounter (statuses as of 12/28/2022) Resolved Problems Problem Noted Date Resolved Date [...] Pranav Sanchez MD [facility] Pharm[facility] [place] Spinal pain 06/04/2014 02/02/2017 Type 2 diabetes [...] as of this encounter (statuses as of 12/28/2022) Immunizations Name Administration Dates Next Due COVID-19 [...] Telemedicine [facility]al Vora [facility] [address] [facility] [address] [place], [facility] Patient Financial Rep [address] [place] [address] [place] [address] 01/04/2023 Office Visit Nephrology Eric Day MD [address] [facility] [address] 01/14/2023 Office Visit Gastroenterology Iris Cerrato PA-C [address] [place] [address] 01/15/2023 Home Visit [facility] Penny Parikh RN [address] [place] [address] 01/16/2023 Office Visit Gastroenterology Geovanna Bahean CRNP [address] [place] [address] 01/17/2023 Imaging Radiology 01/17/2023 Imaging Radiology 02/15/2023 Office Visit Cardiology Sophy Sands PA-C [address] [place] [address] 02/21/2023 Office Visit Ophthalmology Ernie Rivers, DO [address] [facility] [place] [address] 04/09/2023 Office Visit Family Medicine Chris Asencio DO [address] [place] [address] 04/24/2023 Office Visit Pharmacy [facility] Amira [address] [place] [address] 05/06/2023 Office Visit Nephrology Eric Day MD [address] [facility], [place] [address] Pending Results Name Type Priority Associated Diagnoses Date /Time CBC WITH WBC DIFFERENTIAL AND ANEMIA REFLEX WORKUP Lab Routine Anemia, unspecified type 12/28/2022 11:49 AM EDT IRON SCREEN, INCLUDING TIBC Lab Routine Anemia, unspecified type 12/28/2022 11:49 AM EDT ANEMIA CBC Lab Routine Anemia, unspecified type 12/28/2022 11:49 AM EDT DIFFERENTIAL, AUTOMATED Lab Routine Anemia, unspecified type 12/28/2022 11:49 AM EDT ANEMIA REFLEX CHEMISTRY HOLD Lab Routine Anemia, unspecified type 12/28/2022 11:49 AM EDT Scheduled Procedures Name Priority Associated [...] 2023 03/01/2022, 03/27/2021, 03/04/2020, Additional history exists GFR 03/08/2023 09/06/2022, 10/2021, 09/20/2021, Additional history exists HbA1c 03/08/2023 09/06/2022, 07/25, 03/01/2022, Additional history exists DIABETES-EYE EXAM 08/10/2023 08/09/2022, , 04/13/2021, Additional history exists Albumin/Creatinine Ratio 09/07/2023 023, 11/24/2021, 11/15/2020, Additional history exists CKD HGB USE SMARTSET 41000 09/07/202309/06, 09/06/2022, 03/19/2022, Additional history exists CKD PHOS USE SMARTSET 71887 09/07/202308/25, 03/01/2022, 03/27/2021, Additional history exists Depression Screening, Annual for Pts 12 and Over 10/13/2023 10/12/2022 COLONOSCOPY-EVERY 5 YRS AGES 18-100 03/17/2026 03/17/2021, [...] encounter Visit Diagnoses Diagnosis Anemia, unspecified type documented in this encounter Advance Directives Documents on File Type Date Recorded Patient Development Officer Expl anation POLST 10/20/2021 [place] [facility] [...] the patient have Health Care Power of Director Industrial? No Care Teams Slab Installer Relationship Specialty Start Date End Date Chris Asencio DO [address] [place] [address] PCP - General Family Medicine 01/07/18 documented as of this encounter
--- OUTSIDE RECORDS SUMMARY | 2023-06-20 00:47 | External Medical Summary | Summary of Care ---
Author Name Unknown Organization [facility] Address [address] [place] [address] Phone [phone] Care Team Providers Care Real Estate Director Name Role Phone Luis M Chris Fabiananay Primary Care Provider Reason for Visit * Reason Onset Date Comments Test Results 01/01/2023 Encounter Details Date Type Department Care Team Description 01/01/2023 Telephone Family Practice [facility] [address] [facility] [place] [address] Ramiro Hitchcock CRNP [address] [facility] [place] [address] Test Results Allergies Active Allergy Reactions Severity Noted Date [...] as of this encounter (statuses as of 01/01/2023) Medications Medication Sig Dispensed Refills Start Date [...] 1 Each 5 10/20/2020 Active Dexcom G6 Geographic Analyst DeviceIndications:Typ e 2 diabetes mellitus with [...] 08/06/2022 Active Additional Information Patient taking differently:2 [place] Each NostrilBID(AM/PM), Reported on 12/24/2022 Famotidine 40 [...] Information Patient not taking.Reported on 12/24/2022 Methscopolamine [place] 2.5 MG Oral TabletIndications:Irr itable bowel syndrome [...] as of this encounter (statuses as of 01/01/2023) Active Problems Patient Care Coordination No te [...] as of this encounter (statuses as of 01/01/2023) Resolved Problems Problem Noted Date Resolved Date [...] 018 Overview: Signed 06/04/2014 Pranav Sanchez MD [facility] Pharmacy [place] Spinal pain 06/04/2014 02/02/2017 Type 2 diabetes [...] Venous insufficiency 04/27/2002 10/14/2020 NEURALGIA-NEURITIS NOS 12/18/2001 02/28/201 2 OTHER SPECIFIED COMPLICATION S OF PROCEDURES [...] as of this encounter (statuses as of 01/01/2023) Immunizations Name Administration Dates Next Due COVID-19 [...] encounter Miscellaneous Notes * Telephone Encounter - Brian Richmond RN - 01/01/2023 7:07 PM EDT Provider to address: N/A Reason for Call: Test Results Contact: Telephone Call Contact Type: Follow-up Outcome: Called patient and she said she had a better day today. She said she is getting a little stronger. Patient states she is measuring her urine - about 3 to 4 times a day, states it is 300-400 ml and it is straw colored. Patient states both her ankles and feet are swollen, but not like it was. Patient states she can only wear DEL stockings for little while as they cut into her legs. She said her CLARITA wrap and she wraps and elevates her legs at night. Patient states she gets pins an needlesin her legs at night. Patient states she is trying to be as careful as she can be. She states she is getting up and walking through the yard. Patient states she uses her walker and cane. Patient states she gets a little short of breath once in a while. Patient states she is not having any diarrhea any more. Informed patient of Ramiro's previous message and she verbalized understanding of all information and is agreeable to all recommendations. Patient said she is drinking so much already that she feels like she is going to float away. Patient states she is drinking Pedialyte. Patient is asking if this ok? Please advise. Patient said she is worried about the creatinine going up again and is very scared. Patient said she will not go on dialysis. Patient said she has heard that Trulicity may keep people from going into renal failure. She is asking about this medication? Please advise. Total Time including non face to face (minutes): 25 * Telephone Encounter - ADELA Shaikh - 01/01/2023 12:35 PM EDT Please check on how she is doing. Her hemoglobin is similar to discharge (slightly better). However, her Cr increased from 1.2 to 2.3 in 1 week. Recommend to hydrate, recheck BMP in 2-3 days, follow up with nephrology. documented in this encounter Plan of Treatment Upcoming Encounters Date Type Specialty Care Team Description 01/03/2023 [facility]icine [facility] [address] [place] [address] [place] [id number] 01/04/2023 Office Visit Nephrology Eric Day MD 200 [facility] [place] [address] 01/14/2023 Office Visit Gastroenterology Iris Cerrato PA-C [address] [place] [address] 01/15/2023 Home Visit [facility] Penny Parikh RN [address] [place] [address] 01/16/2023 Office Visit Gastroenterology Geovanna Bahena CRNP [address] [place] [address] 01/17/2023 Imaging Radiology 01/17/2023 Imaging Radiology 02/15/2023 Office Visit Cardiology Sophy Sands PA-C [address] [place] [address] 02/21/2023 Office Visit Ophthalmology Ernie Rivres DO [address] [place] [address] 04/09/2023 Office Visit Family Medicine Chris Asencio DO [address] [place] [address] 04/24/2023 Office Visit Pharmacy [facility] [address] [place] [address] 05/06/2023 Office Visit Nephrology Eric Day MD 200 [facility], [place] [address] Scheduled Orders Name Type Priority Associated Diagnoses Orde r Schedule BASIC METABOLIC PANEL Lab Routine DAVONTE (acute kidney injury) (HCC) Expected: 01/01/2023 (Approximate), Expires: 01/01/2024 Scheduled Procedures Name Priority Associated Diagnoses Date/Ti [...] Additional history exists CKD PHOS USE SMARTSET 90915 09/07/202308/25, 03/01/2022, 03/27/2021, Additional history exists Depression Screening, Annual for Pts 12 and Over 10/13/2023 10/12/2022 CKD HGB USE SMARTSET 40021 12/29/202312/28, 12/28/2022, 09/06/2022, Additional history exists COLONOSCOPY-EVERY [...] injury) (HCC)- Primary Acute kidney failure, unspecified documented in this encounter Advance Directives Documents on File Type Date Recorded Patient Cloth Cutting Inspector Expl anation POLST 10/20/2021 [place] OR [facility] FOR LIFE-SUSTAINING TREATMENT Latest Code Status on File Code Status Date Activated Date Inactivated Comments Full Code 03/30/2022 6:40 AM 03/30/2022 2:12 PM This order reflects the patients wishes and were consensually agreed upon. Question Answer Comments Discussion of Advance Directives occurred with: Patient Does the patient have a Living Will? No Does the patient have Health Care Power of Perfume Compounder? No Care Teams Real Estate Director Relationship Specialty Start Date End Date Chris Asencio DO [address] [place] [address] PCP - General Family Medicine 01/07/18 documented as of this encounter
--- OUTSIDE RECORDS SUMMARY | 2023-06-20 00:47 | External Medical Summary | Summary of Care ---
Author Name Unknown Organization [facility] Address [address] [facility] [place] [address] Phone [phone] Care Team Providers Care Information Engineer Name Role Phone Nazia Asenciomarcos Fabiananay Primary Care Provider Reason for Visit * Reason Onset Date Comments Medication Question 12/31/2022 Encounter Details Date Type Department Care Team Description 12/31/2022 Telephone Pharmacy Call Center [address] [facility] [place] [address] [facility] [place] [address] [facility] [address] Medication Question Allergies Active Allergy Reactions Severity Noted Date [...] as of this encounter (statuses as of 12/31/2022) Medications Medication Sig Dispensed Refills Start Date [...] 1 Each 5 10/20/2020 Active Dexcom G6 Wood Stock Blank Handler DeviceIndications:Typ e 2 diabetes mellitus with stage [...] 08/06/2022 Active Additional Information Patient taking differently:2 [place] Each NostrilBID(AM/PM), Reported on 12/24/2022 Famotidine 40 [...] Information Patient not taking.Reported on 12/24/2022 Methscopolamine [place] 2.5 MG Oral TabletIndications:Irr itable bowel syndrome [...] as of this encounter (statuses as of 12/31/2022) Active Problems Patient Care Coordination No te [...] as of this encounter (statuses as of 12/31/2022) Resolved Problems Problem Noted Date Resolved Date [...] 018 Overview: Signed 06/04/2014 Pranav Sanchez MD [facility] Pharmacy [place] Spinal pain 06/04/2014 02/02/2017 Type 2 diabetes [...] as of this encounter (statuses as of 12/31/2022) Immunizations Name Administration Dates Next Due COVID-19 mRNA, LNP-s, No Pre serve, 2-Dose Series ([employer]) 09/09/2020,08/19/2020 Pneumococcal Conjugate Vacc, 13 Valent (Prevnar) [...] Notes * Telephone Encounter - Kate Ye [facility] - 12/31/2022 10:35 AM EDT Patient Phone Numbers Spoke to patient via phone. Instructed to continue tresiba 22 units daily. Patient does not need sliding scale based on A1c and has not been cleared by pcp to r/s ozempic at this time per [facility] note on12/27. Kate Ye, Pharm D, BCACP Clinical Pharmacist 12/31/2022, 10:47 AM * Telephone Encounter - RIAN Buitrago - 12/31/2022 10:30 AM EDT Caller's name: Liane Preferred call back number(OFFICE NUMBER FOR ): [phone] Reason for call: Patient would like to speak to the [facility]. in regards to her insulin. She was discharged from the hospital on 12/22/22. Please return her call. She is confused. Thank you, Chioma Fuentes Oxyacetylene Torch Operator [facility] 12/31/2022,10:30 AM documented in this encounter Plan of Treatment Upcoming Encounters Date Type Specialty Care Team Description 01/03/2023 Telemedicine [facility] Kristal Vora CRNP [address] [facility] [place] [address] [place], [address] [place] [address] 01/04/2023 Office [facility] [address] 01/14/2023 Office Visit Gastroenterology Iris Cerrato PA-C [address] [place] [address] 01/15/2023 Home Visit [facility] Penny Parikh RN [address] [place] [address] 01/16/2023 Office Visit Gastroenterology Geovanna Bahena CRNP [address] [place] [address] 01/17/2023 Imaging Radiology 01/17/2023 Imaging Radiology 02/15/2023 Office Visit Cardiology Sophy Sands PA-C [address] [place] [address] 02/21/2023 Office Visit Ophthalmology Ernie Rivers DO [address] [place] [address] 04/09/2023 Office Visit Family Medicine Chris Asencio DO [address] [place] [address] 04/24/2023 Office Visit [facility]acy [facility] [place] [address] [place] [address] 05/06/2023 [facility] [address] Scheduled Procedures Name Priority Associated Diagnoses Date/Ti [...] Additional history exists CKD PHOS USE SMARTSET 21858 09/07/202308/25, 03/01/2022, 03/27/2021, Additional history exists Depression Screening, Annual for Pts 12 and Over 10/13/2023 10/12/2022 CKD HGB USE SMARTSET 21557 12/29/202312/28, 12/28/2022, 09/06/2022, Additional history exists COLONOSCOPY-EVERY [...] Documents on File Type Date Recorded Patient Maintenance And Utilities Supervisor Expl anation POLST 10/20/2021 [place] OR [facility] FOR LIFE-SUSTAINING TREATMENT Latest Code Status on File Code Status Date Activated Date Inactivated Comments Full Code 03/30/2022 6:40 AM 03/30/2022 2:12 PM This order reflects the patients wishes and were consensually agreed upon. Question Answer Comments Discussion of Advance Directives occurred with: Patient Does the patient have a Living Will? No Does the patient have Health Care Power of Press Service Reader? No Care Teams Information Engineer Relationship Specialty Start Date End Date Chris Asencio DO [address] [place] [address] PCP - General Family Medicine 01/07/18 documented as of this encounter
--- OUTSIDE RECORDS SUMMARY | 2023-06-20 00:47 | External Medical Summary | Summary of Care ---
Author Name Unknown Organization [facility] Address [address] [place] [address] Phone [phone] Care Team Providers Care Lingo Cleaner Name Role Phone Chris Asencio DO Primary Care Provider Reason for Visit * Reason Comments eRx-Medication Refill Encounter Details Date Type Department Care Team Description 01/01/2023 Refill Family Practice [facility] [address] [place] [address] Chris Asencio DO [address] [place] [address] Allergies Active Allergy Reactions Severity Noted Date [...] as of this encounter (statuses as of 01/02/2023) Medications Medication Sig Dispensed Refills Start Date [...] 1 Each 5 10/20/2020 Active Dexcom G6 Conservation Biology Professor DeviceIndications:Typ e 2 diabetes mellitus with [...] nephropathy, with long-term current use of insulin ([facility]) CHEW 1 TABLET BY MOUTH EVERY [...] mellitus with hemoglobin A1c goal of 7.0%-8.0% ([facility]),Type 2 diabetes mellitus with stage 3a chronic kidney disease, with long-term current use of insulin ([facility]),Type II diabetes mellitus with neurological manifestations ([facility]) Inject 20 Units under the skin [...] 08/06/2022 Active Additional Information Patient taking differently:2 [place] Each NostrilBID(AM/PM), Reported on 12/24/2022 Famotidine 40 [...] Information Patient not taking.Reported on 12/24/2022 Methscopolamine [place] 2.5 MG Oral TabletIndications:Irr itable bowel syndrome [...] as of this encounter (statuses as of 01/02/2023) Active Problems Patient Care Coordination No te [...] as of this encounter (statuses as of 01/02/2023) Resolved Problems Problem Noted Date Resolved Date [...] 018 Overview: Signed 06/04/2014 Pranav Sanchez MD [facility] Pharmacy [place] Spinal pain 06/04/2014 02/02/2017 Type 2 diabetes [...] as of this encounter (statuses as of 01/02/2023) Immunizations Name Administration Dates Next Due COVID-19 [...] encounter Miscellaneous Notes * Telephone Encounter - Brandon Kirk RPh - 01/02/2023 11:08 AM EDT Refused Prescriptions: Disp Refills NovoLOG FlexPen 100 UNIT/ML Subcutaneous S* 3 Sig: INJECT 25 UNITS UNDER THE SKIN 3 TIMES A DAY.Refused By: BRANDON KIRK for Refusal: Patient Should Contact Provider Shannan for Refusal Comment: med was d/c documented in this encounter Plan of Treatment Upcoming Encounters Date Type Specialty Care Team Description 01/03/2023 [facility] Kristal Vora CRNP [address] [place] [address] [place], [facility] [employer] [address] [place] [address] [place] [address] 01/04/2023 Office Visit Nephrology Eric Day MD [address] [place] [address] 01/14/2023 Office Visit Gastroenterology Iris Cerrato PA-C [address] [place] [address] 01/15/2023 Home Visit [facility] Penny Parikh RN [address] [place] [address] 01/16/2023 Office Visit Gastroenterology Geovanna Bahena CRNP [address] [place] [address] 01/17/2023 Imaging Radiology 01/17/2023 Imaging Radiology 02/15/2023 Office Visit Cardiology Sophy Sands PA-C [address] [place] [address] 02/21/2023 Office Visit Ophthalmology Ernie Rivers DO [address] [place] [address] 04/09/2023 Office Visit Family Medicine Chris Asencio DO [address] [place] [address] 04/24/2023 Office Visit Pharmacy Janet Garza [address] [place] [address] 05/06/2023 Office Visit Nephrology Eric Day MD [address] [place] [address] Scheduled Procedures Name Priority Associated Diagnoses Date/Ti [...] Additional history exists CKD PHOS USE SMARTSET 06572 09/07/202308/25, 03/01/2022, 03/27/2021, Additional history exists Depression Screening, Annual for Pts 12 and Over 10/13/2023 10/12/2022 CKD HGB USE SMARTSET 57811 12/29/202312/28, 12/28/2022, 09/06/2022, Additional history exists COLONOSCOPY-EVERY [...] Documents on File Type Date Recorded Patient Informatics Consultant Expl anation POLST 10/20/2021 [place] OR [facility] FOR LIFE-SUSTAINING TREATMENT [...] the patient have Health Care Power of Orthotic Finish Grinding Technician? No Care Teams Lingo Cleaner Relationship Specialty Start Date End Date Chris Asencio DO [address] [place] [address] PCP - General Family Medicine 01/07/18 documented as of this encounter
--- OUTSIDE RECORDS SUMMARY | 2023-06-20 00:47 | External Medical Summary | Summary of Care ---
Author Name Unknown Organization [facility] Address [address] [place] [address] Phone [phone] Care Team Providers Care Mathematics Instructor Name Role Phone Chris Asencio Primary Care Provider Reason for Visit * Reason Comments eRx-Medication Refill Encounter Details Date Type Department Care Team Description 01/01/2023 Refill Dermatology [facility] 200 [facility] [place] [address] Tati Bolton MD [address] [place] [address] Rash and nonspecific skin eruption Allergies Active Allergy Reactions Severity Noted Date [...] DX E11.9 400 Each 3 9 Active AMBULATORY MISCELLANEOUS MEDICATION ILERA "DREAM". Tincture: [...] 1 Each 5 1 Active Dexcom G6 Flake Miller Helper DeviceIndications:T ype 2 diabetes mellitus with stage [...] of insulin ([facility]) CHEW 1 TABLET BY MOUTH EVERY [...] DAILY . 90 Tablet 3 2 Active Furosemide 40 MG Oral Tablet (Lasix)Indications: Venous insufficiency,HTN, goal below 140/90 TAKE 1 TABLET BY MOUTH EVERY DAY 90 Tablet 3 2 Active Toujeo SoloStar 300 UNIT/ML Subcutaneous Solution Pen-injector (Insulin Glargine (1 Unit Dial))Indications:T ype 2 diabetes mellitus with hemoglobin A1c goal of 7.0%-8.0% ([facility]),Type 2 diabetes mellitus with stage 3a chronic kidney disease, with long-term current use of insulin ([facility]),Type II diabetes mellitus with neurological manifestations ([facility]) Inject 20 Units under the skin [...] 3 Active Additional Information Patient taking differently:2 [place] Each NostrilBID(AM/PM), Reported on 12/24/2022 Famotidine 40 [...] Information Patient not taking.Reported on 12/24/2022 Methscopolamine [place] 2.5 MG Oral TabletIndications:I rritable bowel syndrome with diarrhea TAKE 1 TAB UP TO 3 TIMES DAILY NEEDED FOR ABDOMINAL CRAMPS & DIARRHEA, 270 Tablet 1 3 Active OneTouch Verio In Vitro Strip (Glucose Blood)Indications:T ype II diabetes mellitus with neurological manifestations (HCC) USE UP TO 4 TIMES A DAY DIRECTED 100 Strip 11 3 Active Fluconazole 100 MG Oral Tablet (Diflucan) [...] NIGHTLY NEEDED 30 g 0 3 Active Triamcinolone Acetonide 0.1 % External Cream (Aristocort)Indicat ions:Rash and nonspecific skin eruption Apply to rash on body nightly as needed 30 g 0 3 01/03/20 23 Discontinued Hospital, Clinic, or Other Facility [...] Overview: Signed 06/04/2014 Pranav Sanchez MD [facility] Pharmacy [place] Spinal pain 06/04/2014 02/02/2017 Type 2 diabetes [...] Telephone Encounter - Tati Bolton MD - 01/02/2023 12:00 PM EDTSigned Prescriptions: Disp Refills Triamcinolone Acetonide 0.1 % External Cre*30 g 0 Sig: APPLY TO RASH ON BODY NIGHTLY NEEDED Authorizing Provider: TATI BOLTON * Telephone Encounter - Augusta Mora LPN - 01/02/2023 7:37 AM EDTPending Prescriptions: Disp Refills Triamcinolone Acetonide 0.1 % External Cre*30 g 0 Sig: Apply to rash on body nightly as needed * Telephone Encounter - Augusta Mora LPN - 01/02/2023 7:36 AM EDT Pending Prescriptions: Disp Refills Triamcinolone Acetonide 0.1 % External Cr*30 g 0 Sig: APPLY TO RASH ON BODY NIGHTLY NEEDED 10/18/2022 (in office), 08/22/2022 (telemedicine) Visit date not found If no future appointments scheduled, and last appointment is greater than a year ago, please schedule patient for a follow-up appointment Last date the medication was ordered: Patient Phone Numbers Labs: Lab Results Component Value Date/Time CREAT 2.3 (H) 12/28/2022 11:49 AM CREAT 0.95 09/20/2021 12:00 AM CREAT 1.0 05/24/2020 11:20 AM POTASSIUM 5.0 09/06/2022 12:35 PM POTASSIUM 3.8 09/20/2021 12:00 AM POTASSIUM [...] Telemedicine [facility] Kristal Vora CRNP [address] [facility] [place] [address] [place] [address] [place] [address] 01/04/2023 Office Visit Nephrology Eric Day MD 200 [facility] [address] 01/14/2023 Office Visit Gastroenterology Iris Cerrato PA-C [address] [place] [address] 01/15/2023 Home Visit [facility] Penny Parikh RN [address] [place] [address] 01/16/2023 Office Visit Gastroenterology Geovanna Bahena CRNP [address] [place] [address] 01/17/2023 Imaging Radiology 01/17/2023 Imaging Radiology 02/15/2023 Office Visit Cardiology Sophy Sands PA-C [address] [place] [address] 02/21/2023 Office Visit Ophthalmology Ernie Rivers, DO [address] [place] [address] 04/09/2023 Office Visit Family Medicine Chris Asencio DO [address] [place] [address] 04/24/2023 Office Visit Pharmacy [place] [place] [address] [place] [address] 05/06/2023 Office Visit Nephrology Eric Day MD 200 [facility] [address] Scheduled Procedures Name Priority Associated Diagnoses Date/Ti [...] 09/07/202309/06/2 023, 11/24/2021, 11/15/2020, Additional history exists CKD PHOS USE SMARTSET 85799 09/07/202308/25, 03/01/2022, 03/27/2021, Additional history exists Depression Screening, Annual for Pts 12 and Over 10/13/2023 10/12/2022 CKD HGB USE SMARTSET 90098 12/29/202312/28, 12/28/2022, 09/06/2022, Additional history exists COLONOSCOPY-EVERY 5 YRS AGES 18-100 03/17/2026 03/17/2021, 03/17/2021, 12/07/2014, Additional history exists DTaP,Tdap,and Td Vaccines (3 - Td or Tdap) 04/16/2026 04/16/2016, 04/12/2006 Lipid Panel 09/07/2027 09/06/2022, 0 10/2021, 08/23/2021, Additional history exists DXA Scan [...] on File Type Date Recorded Patient Chief Sustainability Officer Expl anation POLST 10/20/2021 [place] OR [facility] FOR LIFE-SUSTAINING TREATMENT Latest Code Status on File Code Status Date Activated Date Inactivated Comments Full Code 03/30/2022 6:40 AM 03/30/2022 2:12 PM This order reflects the patients wishes and were consensually agreed upon. Question Answer Comments Discussion of Advance Directives occurred with: Patient Does the patient have a Living Will? No Does the patient have Health Care Power of Portable Track Crew Chief? No Care Teams Mathematics Instructor Relationship Specialty Start Date End Date Chris Asencio DO [address] [place] [address] PCP - General Family Medicine 01/07/18 documented as of this encounter
--- OUTSIDE RECORDS SUMMARY | 2023-06-20 00:48 | External Medical Summary ---
Author Name Unknown Address Unknown Organization K01:[facility]ORY [facility] - [address] [place] [address] Laboratory Report Ordering Provider Test Date Status JANUARY SINGH 12/28/2022 11:49:33 Final Observation Date Value Abnormality Reference (Units ) Status Folic Acid 12/28/2022 11:49:33 12.9 >4.5 (ng/ mL) Final Performing Location [facility] - [address] [place] [address]
--- OUTSIDE RECORDS SUMMARY | 2023-06-20 00:48 | External Medical Summary ---
Author Name Unknown Address Unknown Organization K01[facility] [address] [place] [address] Laboratory Report Ordering Provider Test Date Status JANUARY SINGH 12/28/2022 11:49:33 Final Observation Date Value Abnormality Reference (Units ) Status Vitamin B12 12/28/2022 11:49:33 [id number] (pg/mL) Final Performing Location [facility] - [address] [place] [address]
--- OUTSIDE RECORDS SUMMARY | 2023-06-20 00:48 | External Medical Summary | Summary of Care ---
Author Name Unknown Organization [facility] Address [address] [place] [address] Phone [phone] Care Team Providers Care Blind Hanger Name Role Phone Chris Asencio DO Primary Care Provider Reason for Visit * Reason Onset Date Comments Hospital Follow-Up 12/25/2022 Encounter Details Date Type Department Care Team Description 12/25/2022 Telephone General Internal Medicine [facility] [address] [place] [address] Chris Asencio DO [address] [place] [address] Hospital Follow-Up Allergies Active Allergy Reactions Severity Noted Date [...] as of this encounter (statuses as of 12/27/2022) Medications Medication Sig Dispensed Refills Start Date [...] 1 Each 5 10/20/2020 Active Dexcom G6 Footwear Sales Associate DeviceIndications:Ty pe 2 diabetes mellitus with stage [...] nephropathy, with long-term current use of insulin ([facility]) CHEW 1 TABLET BY MOUTH [...] mellitus with hemoglobin A1c goal of 7.0%-8.0% ([facility]),Type 2 diabetes mellitus with stage 3a chronic kidney disease, with long-term current use of insulin ([facility]),Type II diabetes mellitus with neurological manifestations ([facility]) Inject 20 Units under the [...] 08/06/2022 Active Additional Information Patient taking differently:2 [place] Each NostrilBID(AM/PM), Reported on 12/24/2022 Famotidine 40 [...] Tablet 2 08/30/2022 Active Additional Information Patient taking differently:1 mg Oral BID(AM/PM),Indications: hold 12/27/22 due to hypotension, Reported on 12/27/2022 EpiPen 2-Ronni 0.3 MG/0.3ML Injection Solution Auto-injectorIndicat [...] Information Patient not taking.Reported on 12/24/2022 Methscopolamine [place] 2.5 MG Oral TabletIndications:Ir ritable bowel syndrome [...] Wheezing or Shortness of Breath. 0 Active Omeprazole 20 MG Oral Capsule Delayed Release (PriLOSEC) TAKE 1 CAPSULE BY MOUTH EVERY DAY 90 Capsule 3 01/20/2022 12/28/19 23 Discontinu ed(Medicat ion List Clean Up) cloNIDine HCl 0.1 MG Oral Tablet (Catapres) Take 1 Tablet by mouth at bedtime. 0 09/28/2022 12/28/19 23 Discontinu ed(Medicat ion List Clean Up) Hospital, Clinic, or Other Facility Administered Medication Ordered Dose Route Frequency Start Date End Date Status albuterol sulfate (PROVENTIL) (2.5 MG/3ML) 0.083% inhalation solution 2.5 mgIndications:Moderate persistent asthma without complication 2.5 mg NEBULIZER Q4H PRN 08/13/2018 Active documented as of this encounter (statuses as of 12/27/2022) Active Problems Problem Noted Date Dyslipidemia, goal LDL below [...] as of this encounter (statuses as of 12/27/2022) Resolved Problems Problem Noted Date Resolved Date [...] Sanchez MD [facility] Pharm[facility] [place] Spinal pain 06/04/2014 02/02/2017 Type 2 diabetes [...] as of this encounter (statuses as of 12/27/2022) Immunizations Name Administration Dates Next Due COVID-19 [...] at Date Recorded Female 02/25/2020 5:15 PM EDT Job Start Date Occupation Industry Not on file Not on file Not on file documented as of this encounter Miscellaneous Notes * Telephone Encounter - ADELA Shaikh - 12/27/2022 2:05 PM EDT Oh -- Saturday/Saturday is her 's availability. No need to f/u with primary care, but definitely w/ nephrology. * Telephone Encounter - Dipti Contreras - 12/27/2022 1:55 PM EDT Patient thought they needed a follow up from appointment- check out notes just said Saturday or Saturday. -please confirm patient does not need another appointment with family practice? * Telephone Encounter - ADELA Shaikh - 12/27/2022 1:38 PM EDT Patient already had hospital follow up with PCP office on 12/24/22. She was scheduled to f/u with nephrology. Please cancel appt on 01/11/23 and reschedule f/u with nephrology. * Telephone Encounter - Faby Milan LPN - 12/26/2022 9:34 AM EDT Pt will follow up with PCP * Telephone Encounter - Guillermo Egan RN - 12/25/2022 1:05 PM EDT Patient discharged from [facility] on 12/22/22 after treatment for septic shock. Nephrology was consulted for DAVONTE. No recommendations for follow up. Please assess if follow up is needed. Thank you documented in this encounter Plan of Treatment Upcoming Encounters Date Type Specialty Care Team Description 01/03/2023 Telemedicine [facility] Kristal Vora CRNP [address] [facility] [place] [address] [place] [address] [place] [address] 01/11/2023 Office Visit Family Medicine Ramiro Hitchcock CRNP [address] [place] [address] 01/14/2023 Office Visit Gastroenterology Iris Cerrato PA-C [address] [place] [address] 01/15/2023 Home Visit [facility] Penny Parikh, RN [address] [place] [address] 01/16/2023 Office Visit Gastroenterology Geovanna Bahena CRNP [address] [place] [address] 01/17/2023 Imaging Radiology 01/17/2023 Imaging Radiology 02/15/2023 Office Visit Cardiology Sophy Sands PA-C [address] [place] [address] 02/21/2023 Office Visit Ophthalmology Ernie Rivers DO [address] [place] [address] 04/09/2023 Office Visit Family Medicine Chris Asencio DO [address] [place] [address] 04/24/2023 Office Visit Pharmacy [facility] [address] [place] [address] 05/06/2023 Office Visit Nephrology Eric Day MD [address] [place] [address] Scheduled Procedures Name Priority Associated Diagnoses Date/Ti [...] Additional history exists CKD HGB USE SMARTSET 77160 09/07/202309/06, 09/06/2022, 03/19/2022, Additional history exists CKD PHOS USE SMARTSET 14812 09/07/202308/25, 03/01/2022, 03/27/2021, Additional history exists Depression [...] Documents on File Type Date Recorded 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 No Care Teams Blind Hanger Relationship Specialty Start Date End Date Chris Asencio DO [address] [place] [address] PCP - General Family Medicine 01/07/18 documented as of this encounter
--- OUTSIDE RECORDS SUMMARY | 2023-06-20 00:48 | External Medical Summary ---
Author Name Unknown Address Unknown Organization K01:[facility]ATORY [facility] [place] - [address] [facility] [place] [address] Laboratory Report Ordering Provider Test Date Status JANUARY SINGH 12/28/2022 11:49:33 Final Observation Date Value Abnormality Reference (Units ) Status WBC, Total 12/28/2022 11:49:33 4.74 4.00-10.8 0 (K/uL) Final RBC 12/28/2022 11:49:33 2.94 3.85-5.15 (M/uL) Final Hemoglobin 12/28/2022 11:49:33 8.8 Below low normal 12 .0-15.3 (g/dL) Final Anemia reflex testing trigge rs on a HGB < 12.0 for Females and HGB < 13.0 for Males in accordance with the WHO Anemia Guidelines
Anemia reflex testing triggers on a HGB < 12.0 for Females and HGB < 13.0 for Males in accordance with the WHO Anemia Guidelines HCT 12/28/2022 11:49:33 28.3 Below low normal 36. 0-45.2 (%) Final MCV 12/28/2022 11:49:33 96.3 81.5-97.5 (fL) Final MCH 12/28/2022 11:49:33 29.9 27.0-34.0 (pg) Final MCHC 12/28/2022 11:49:33 31.1 32.0-36.0 (g/dL) Final RDW 12/28/2022 11:49:33 14.1 11.5-15.5 (%) Final Platelets 12/28/2022 11:49:33 472 Above hi gh normal 140-400 (K/uL) Final MPV 12/28/2022 11:49:33 12.5 6.6-11.1 ( fL) Final Nucleated erythrocytes/100 leukocytes [Ratio] in Blood by Automated count 12/28/2022 11:49:33 0 <=0 (/100 WBCs) Final Performing Location [facility] [place] - [facility] [place] [address]
--- OUTSIDE RECORDS SUMMARY | 2023-06-20 00:48 | External Medical Summary | Summary of Care ---
Author Name Unknown Organization [facility] Address [address] [place] [address] Phone [phone] Care Team Providers Care Instrument Repairer Steam Plant Name Role Phone Chris Asencio DO Primary Care Provider Reason for Visit * Reason Onset Date Comments Hospital Follow-Up 12/25/2022 Encounter Details Date Type Department Care Team Description 12/25/2022 Telephone General Internal Medicine [facility] [address] [place] [address] Chris Asencio DO [address] [place] [address] Hospital Follow-Up Allergies Active Allergy Reactions Severity [...] Each 5 10/20/2020 Active Dexcom G6 Senior Clinician DeviceIndications:Ty pe 2 diabetes mellitus with stage [...] with long-term current use of insulin ([facility]) CHEW 1 TABLET BY MOUTH [...] with hemoglobin A1c goal of 7.0%-8.0% ([facility]),Type 2 diabetes mellitus with stage 3a chronic kidney disease, with long-term current use of insulin ([facility]),Type II diabetes mellitus with neurological manifestations ([facility]) Inject 20 Units under the [...] 08/06/2022 Active Additional Information Patient taking differently:2 [place] Each NostrilBID(AM/PM), Reported on 12/24/2022 Famotidine 40 [...] Information Patient not taking.Reported on 12/24/2022 Methscopolamine [place] 2.5 MG Oral TabletIndications:Ir ritable bowel syndrome [...] Overview: Signed 06/04/2014 Pranav Sanchez MD [facility] Pharmacy [place] Spinal pain 06/04/2014 02/02/2017 Type 2 diabetes [...] encounter Miscellaneous Notes * Telephone Encounter - Dipti Contreras - [...] PM EDT Patient discharged from [facility] on 12/22/22 after treatment for septic shock. Nephrology was consulted for DAVONTE. No recommendations for follow up. Please assess if follow up is needed. Thank you documented in this encounter Plan of Treatment Upcoming Encounters Date Type Specialty Care Team Description 01/03/2023 Telemedicine [facility] Kristal Vora CRNP [address] [facility] [place] [address] [place], [address] [place] [address] 01/11/2023 Office Visit Family Medicine Ramiro Hitchcock CRNP [address] [place] [address] 01/14/2023 Office Visit Gastroenterology Iris Cerrato PA-C [address] [place] [address] 01/15/2023 Home Visit [facility] Penny Parikh RN [address] [place] [address] 01/16/2023 Office Visit Gastroenterology Geovanna Bahena CRNP [address] [place] [address] 01/17/2023 Imaging Radiology 01/17/2023 Imaging Radiology 02/15/2023 Office Visit Cardiology Sophy Sands PA-C [address] [place] [address] 02/21/2023 Office Visit Ophthalmology Ernie Rivers, DO [address] [place] [address] 04/09/2023 Office Visit Family Medicine Chris Asencio DO [address] [place] [address] 04/24/2023 Office Visit Pharmacy [facility] [address] [place] [address] 05/06/2023 Office Visit [facility] [address] [facility] [address] Scheduled Procedures Name Priority Associated Diagnoses Date/Ti [...] Additional history exists CKD HGB USE SMARTSET 75227 09/07/202309/06, 09/06/2022, 03/19/2022, Additional history exists CKD PHOS USE SMARTSET 54060 09/07/202308/25, 03/01/2022, 03/27/2021, Additional history exists Depression [...] Documents on File Type Date Recorded Patient Flake Miller [employer] Expl anation POLST 10/20/2021 [place] OR [facility] FOR [...] the patient have Health Care Power of Hvac/R Service Technician? No Care Teams Instrument Repairer Steam Plant Relationship Specialty Start Date End Date Chris Asencio DO [address] [place] [address] PCP - General Family Medicine 01/07/18 documented as of this encounter
--- OUTSIDE RECORDS SUMMARY | 2023-06-20 00:48 | External Medical Summary | Summary of Care ---
Author Name Unknown Organization [facility] Address [address] [place] [address] Phone [phone] Care Team Providers Care Nursery Attendant Name Role Phone Chris Asencio DO Primary Care Provider Reason for Visit * Reason Onset Date Comments Hospital Follow-Up 12/25/2022 Encounter Details Date Type Department Care Team Description 12/25/2022 Telephone General Internal Medicine [facility] [address] [place] [address] Chris Asencio DO [address] [place] [address] Hospital Follow-Up Allergies Active Allergy Reactions Severity [...] 1 Each 5 10/20/2020 Active Dexcom G6 Custodian Blood Bank DeviceIndications:Ty pe 2 diabetes mellitus with stage [...] use of insulin ([facility]) CHEW 1 TABLET BY MOUTH EVERY [...] hemoglobin A1c goal of 7.0%-8.0% ([facility]),Type 2 diabetes mellitus with stage 3a chronic kidney disease, with long-term current use of insulin ([facility]),Type II diabetes mellitus with neurological manifestations ([facility]) Inject 20 Units under the skin [...] 08/06/2022 Active Additional Information Patient taking differently:2 [place] Each NostrilBID(AM/PM), Reported on 12/24/2022 Famotidine 40 [...] Information Patient not taking.Reported on 12/24/2022 Methscopolamine [place] 2.5 MG Oral TabletIndications:Ir ritable bowel syndrome [...] 018 Overview: Signed 06/04/2014 Pranav Sanchez MD [facility] Pharmacy [place] Spinal pain 06/04/2014 02/02/2017 Type 2 diabetes [...] Telephone Encounter - Dipti Contreras - 12/27/2022 2:32 PM EDT Spoke with patient- appt cancelled for 01/11 * Telephone Encounter - ADELA Shaikh - [...] 12/25/2022 1:05 PM EDT Patient discharged from [facility] on 12/22/22 after treatment for septic shock. Nephrology was consulted for DAVONTE. No recommendations for follow up. Please assess if follow up is needed. Thank you documented in this encounter Plan of Treatment Upcoming Encounters Date Type Specialty Care Team Description 01/03/2023 Telemedicine [facility] Kristal Vora CRNP [address] [facility] [place] [address] [place], [address] [place] [address] 01/14/2023 Office Visit Gastroenterology Iris Cerrato PA-C [address] [place] [address] 01/15/2023 Home Visit [facility] Penny Parikh, RN [address] [place] [address] 01/16/2023 Office Visit Gastroenterology Geovanna Bahena CRNP [address] [place] [address] 01/17/2023 Imaging Radiology 01/17/2023 Imaging Radiology 02/15/2023 Office Visit Cardiology Sophy Sands PA-C [address] [place] [address] 02/21/2023 Office Visit Ophthalmology Ernie Rivers DO [address] [place] [address] 04/09/2023 Office Visit Family Medicine Chris Asencio DO [address] [place] [address] 04/24/2023 Office Visit Pharmacy [facility] [address] [place] [address] 05/06/2023 Office Visit Nephrology [facility] [address] [facility] [address] Scheduled Procedures Name Priority Associated Diagnoses Date/Ti [...] Additional history exists CKD HGB USE SMARTSET 61545 09/07/202309/06, 09/06/2022, 03/19/2022, Additional history exists CKD PHOS USE SMARTSET 80799 09/07/202308/25, 03/01/2022, 03/27/2021, Additional history exists Depression [...] Documents on File Type Date Recorded Patient Care Analyst Expl anation POLST 10/20/2021 [place] OR [facility] [...] the patient have Health Care Power of Human Resources Coordinator? No Care Teams Nursery Attendant Relationship Specialty Start Date End Date Chris Asencio DO [address] [place] [address] PCP - General Family Medicine 01/07/18 documented as of this encounter
--- OUTSIDE RECORDS SUMMARY | 2023-06-20 00:48 | External Medical Summary | Summary of Care ---
Author Name Unknown Organization [facility] Address [address] [place] [address] Phone [phone] Care Team Providers Care Beam Dyer Operator Name Role Phone Chris Asencio DO Primary Care Provider Reason for Visit * Reason Onset Date Comments Hospital Follow-Up 12/25/2022 Encounter Details Date Type Department Care Team Description 12/25/2022 Telephone General Internal Medicine [facility] [address] [place] [address] Chris Asencio DO [address] [place] [address] Hospital Follow-Up Allergies Active Allergy Reactions Severity [...] 1 Each 5 10/20/2020 Active Dexcom G6 Spool Sander DeviceIndications:Ty pe 2 diabetes mellitus with stage [...] use of insulin ([facility]) CHEW 1 TABLET BY MOUTH [...] hemoglobin A1c goal of 7.0%-8.0% ([facility]),Type 2 diabetes mellitus with stage 3a chronic kidney disease, with long-term current use of insulin ([facility]),Type II diabetes mellitus with neurological manifestations ([facility]) Inject 20 Units under the [...] 08/06/2022 Active Additional Information Patient taking differently:2 [place] Each NostrilBID(AM/PM), Reported on 12/24/2022 Famotidine 40 [...] Information Patient not taking.Reported on 12/24/2022 Methscopolamine [place] 2.5 MG Oral TabletIndications:Ir ritable bowel syndrome [...] Pranav Sanchez MD [facility] Pharmacy [place] Spinal pain 06/04/2014 02/02/2017 Type 2 diabetes [...] 12/25/2022 1:05 PM EDT Patient discharged from [facility] on 12/22/22 after treatment for septic shock. Nephrology was consulted for DAVONTE. No recommendations for follow up. Please assess if follow up is needed. Thank you documented in this encounter Plan of Treatment Upcoming Encounters Date Type Specialty Care Team Description 01/03/2023 Telemedicine [facility] Kristal Vora CRNP [address] [facility] [place] [address] [place], [address] [place] [address] 01/11/2023 Office Visit Family Medicine Ramiro Hitchcock CRNP [address] [place] [address] 01/14/2023 Office Visit Gastroenterology Iris Cerrato PA-C [address] [place] [address] 01/15/2023 Home Visit [facility] Penny Parikh RN [address] [place] [address] 01/16/2023 Office Visit Gastroenterology Geovanna Bahena CRNP [address] [place] [address] 01/17/2023 Imaging Radiology 01/17/2023 Imaging Radiology 02/15/2023 Office Visit Cardiology Sophy Sands PA-C [address] [place] [address] 02/21/2023 Office Visit Ophthalmology Ernie Rivers, DO [address] [place] [id number] 04/09/2023 Office Visit Family Medicine Chris Asencioanay, [address] [place] [address] 04/24/2023 Office Visit Pharmacy [facility] [address] [place] [address] 05/06/2023 Office Visit [facility]rology [facility] [address] [facility] [address] Scheduled Procedures Name Priority Associated Diagnoses Date/Ti [...] Additional history exists CKD HGB USE SMARTSET 46017 09/07/202309/06, 09/06/2022, 03/19/2022, Additional history exists CKD PHOS USE SMARTSET 89346 09/07/202308/25, 03/01/2022, 03/27/2021, Additional history exists Depression [...] on File Type Date Recorded Patient Service Order Expediter Expl anation POLST 10/20/2021 [place] OR [facility] FOR [...] the patient have Health Care Power of Nursing Specialist? No Care Teams Beam Dyer Operator Relationship Specialty Start Date End Date Chris Asencio DO [address] [place] [address] PCP - General Family Medicine 01/07/18 documented as of this encounter
--- OUTSIDE RECORDS SUMMARY | 2023-06-20 00:48 | External Medical Summary ---
Author Name Unknown Address Unknown Organization K01:LABORATORY [facility] [place] - [address] [place] [address] Laboratory Report Ordering Provider Test Date Status JANAURY SINGH 12/28/2022 11:49:33 Final Observation Date Value Abnormality Reference (Units ) Status Iron 12/28/2022 11:49:33 33 33-151 (ug/dL) Final Iron-binding capacity 12/28/2022 11:49:33 230 Below low normal 250-425 (ug/dL) Final Transferrin Sat % 12/28/2022 11:49:33 14 Below low normal 15-55 (%) Final Performing Location [facility]ORY [facility] [place] - [address] [place] [address]
--- OUTSIDE RECORDS SUMMARY | 2023-06-20 00:48 | External Medical Summary ---
Author Name Unknown Address Unknown Organization K01:[facility] [facility] [place] [address] [facility] [place] [address] Laboratory Report Ordering Provider Test Date Status JANUARY SINGH 12/28/2022 11:49:33 Final Observation Date Value Abnormality Reference (Units ) Status SYNC LEUKOCYTES IN BLOOD BY AUTOMATED COUNT 12/28/2022 11:49:33 4.74 4.00-10.80 (K/uL) Final Segs 12/28/2022 11:49:33 62.1 40.0-75.0 (%) Final Lymphs % 12/28/2022 11:49:33 24.1 18.0-42.0 (%) Final Monos 12/28/2022 11:49:33 11.6 Above high normal 1.0-11.0 (%) Final Eosinophils 12/28/2022 11:49:33 0.8 0.0-6.0 (%) Final Basos 12/28/2022 11:49:33 0.8 0.0-2.0 (%) Final Immature Granulocyte, Percent 12/28/2022 11:49:33 0.6 0.0-2.0 (%) Final Absolute Segs 12/28/2022 11:49:33 2.94 1.80-7.70 (K/uL) Final Lymphs, absolute 12/28/2022 11:49:33 1.14 1.00-4.80 (K/ul) Final Monos, Abs 12/28/2022 11:49:33 0.55 0.00-1.10 (K/uL) Final Eos, Abs 12/28/2022 11:49:33 0.04 0.00-0.70 (K/uL) Final Basos, Abs 12/28/2022 11:49:33 0.04 0.00-0.20 (K/uL) Final Immature Granulocytes, Number 12/28/2022 11:49:33 0.03 0.00-0.20 (K/uL) Final Performing Location [facility] [facility] [place] [facility] [address] [facility] [address]
--- OUTSIDE RECORDS SUMMARY | 2023-06-20 00:48 | External Medical Summary ---
Author Name Unknown Address Unknown Organization K01:[facility] [place] - [address] [place] [address] Laboratory Report Ordering Provider Test Date Status JANUARY SINGH 12/28/2022 11:49:33 Final Observation Date Value Abnormality Reference (Units ) Status TSH 12/28/2022 11:49:33 3.15 0.27-4.20 (uIU/mL) Final Performing Location LABORATORY [facility] - [address] [place] [address]
--- OUTSIDE RECORDS SUMMARY | 2023-06-20 00:48 | External Medical Summary ---
Author Name Unknown Address Unknown Organization K01:[place] [place] [facility] [address] [place] [address] Laboratory Report Ordering Provider Test Date Status FRANCISCOSIN 12/28/2022 11:49:33 Final Observation Date Value Abnormality Reference (Units ) Status Creatinine 12/28/2022 11:49:33 2.3 Above high normal 0.5-1.0 (mg/dL) Final Glomerular filtration rate/1.73 sq M.predicted [Volume Rate/Area] in Serum, Plasma or Blood by Creatinine-based formula (CKD-EPI) 12/28/2022 11:49:33 23 Below low normal >=60 (mL/min) Final eGFR is calculated based on the CKD-EPI 2020 equation Performing Location [facility] [place] [facility] [address] [place] [address]
--- OUTSIDE RECORDS SUMMARY | 2023-06-20 00:48 | External Medical Summary | Summary of Care ---
Author Name Unknown Organization [facility] Address [address] [place] [address] Phone [phone] Care Team Providers Care Land Commissioner Name Role Phone Chris Asencioanay Primary Care Provider Encounter Details Date Type Department Care Team Description 12/27/2022 Telephone Family Practice [facility] [address] [facility] [place] [address] Ramiro Hitchcock CRNP [address] [facility] [place] [address] Allergies Active Allergy Reactions Severity Noted Date [...] 1 Each 5 10/20/2020 Active Dexcom G6 Manufacturing Machine Operator DeviceIndications:Typ e 2 diabetes mellitus [...] 08/06/2022 Active Additional Information Patient taking differently:2 [place] Each NostrilBID(AM/PM), Reported on 12/24/2022 Famotidine 40 [...] 12/27/2022 EpiPen 2-Ronni 0.3 MG/0.3ML Injection Solution Auto-injectorIndicati [...] Information Patient not taking.Reported on 12/24/2022 Methscopolamine [place] 2.5 MG Oral TabletIndications:Irr itable bowel syndrome [...] 018 Overview: Signed 06/04/2014 Pranav Sanchez MD [facility] [place] Spinal pain 06/04/2014 02/02/2017 Type 2 diabetes [...] mRNA, LNP-s, No Pre serve, 2-Dose Series ([place]) 09/09/2020,08/19/2020 Pneumococcal Conjugate Vacc, 13 Valent (Prevnar) [...] Telemedicine [facility] Kristal Vora CRNP [address] [facility] [address] [place], [facility] [address] [place] [address] [place] [address] 01/04/2023 [facility] [address] 01/14/2023 Office Visit Gastroenterology Iris Cerrato PA-C [address] [place] [address] 01/15/2023 Home Visit [facility] Penny Parikh RN [address] [place] [address] 01/16/2023 Office Visit Gastroenterology Geovanan Bahena CRNP [address] [place] [address] 01/17/2023 Imaging Radiology 01/17/2023 Imaging Radiology 02/15/2023 Office Visit Cardiology Sophy Sands PA-C [address] [place] [address] 02/21/2023 Office Visit Ophthalmology Ernie Rivers, DO [address] [place] [id number] 04/09/2023 Office Visit Family Medicine Chris Asencio DO [address] [place] [address] 04/24/[address] [facility] Amira [address] [place] [address] 05/06/2023 Office Visit [facility]phrology [facility] [address] Scheduled Procedures Name Priority Associated Diagnoses Date/Ti [...] 03/04/2020, Additional history exists GFR 03/08/2023 09/06/2022, 1010/2021, 09/20/2021, Additional history exists HbA1c 03/08/2023 09/06/2022, 07/25, 03/01/2022, Additional history exists DIABETES-EYE EXAM 08/10/2023 08/09/2022, , 04/13/2021, Additional history exists Albumin/Creatinine Ratio 09/07/2023 023, 11/24/2021, 11/15/2020, Additional history exists CKD HGB USE SMARTSET 75203 09/07/202309/06, 09/06/2022, 03/19/2022, Additional history exists CKD PHOS USE SMARTSET 85603 09/07/202308/25, 03/01/2022, 03/27/2021, Additional history exists Depression [...] Documents on File Type Date Recorded Patient 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 No Care Teams Land Commissioner Relationship Specialty Start Date End Date Chris Asencio DO [address] [place] [address] PCP - General Family Medicine 01/07/18 documented as of this encounter
--- OUTSIDE RECORDS SUMMARY | 2023-06-20 00:48 | External Medical Summary ---
Author Name Unknown Address Unknown Organization K01:[facility] [place] - [address] [place] [address] Laboratory Report Ordering Provider Test Date Status JANUARY SINGH 12/28/2022 11:49:33 Final Observation Date Value Abnormality Reference (Units ) Status Ferritin 12/28/2022 11:49:33 419 Above high normal 13 -150 (ng/mL) Final Postmenopausal women have hi gher ferritin levels than pre-menopausal women. The above reference interval is based on pre-menopausal women. Performing Location [facility] - [address] [place] [address]
--- OUTSIDE RECORDS SUMMARY | 2023-06-20 00:48 | External Medical Summary ---
Author Name Unknown Address Unknown Organization K01:[facility]ATORY [place] [address] [place] [address] Laboratory Report Ordering Provider Test Date Status JANUARY SINGH 12/28/2022 11:49:33 Final Observation Date Value Abnormality Reference (Units ) Status Retic, % (auto) 12/28/2022 11:49:33 3.15 Above high normal 0.80-1.90 (%) Final Reticulocytes, Absolute 12/28/2022 11:49:33 93.2 31.3-100.1 (K/uL) Final Reticulocyte fraction, immature 12/28/2022 11:49:33 20.5 2.5-20.6 (%) Final Reticulocyte HGB 12/28/2022 11:49:33 29.5 Below low normal 29.7-37.4 (pg) Final Performing Location [facility] - [facility] [place] [address]
--- OUTSIDE RECORDS SUMMARY | 2023-06-20 00:48 | External Medical Summary | Summary of Care ---
Author Name Unknown Organization [facility] Address [address] [place] [address] Phone [phone] Care Team Providers Care Waterside Worker Name Role Phone AsencioJoeChrismelissa Fabiananay Primary Care Provider Reason for Visit * Reason Comments [facility]: Enrollment Encounter Details Date Type Department Care Team Description 12/27/2022 Home Visit [facility], [facility] [address] [place] [address] Yvette Hinojosa RN [address] [place] [address] Advanced care planning/counseling discussion* Allergies Active Allergy Reactions Severity Noted Date [...] Each 5 10/20/2020 Active Dexcom G6 Seed Packer DeviceIndications:Ty pe 2 diabetes mellitus with stage [...] use of insulin ([facility]) CHEW 1 TABLET BY MOUTH EVERY [...] A1c goal of 7.0%-8.0% ([facility]),Type 2 diabetes mellitus with stage 3a chronic kidney disease, with long-term current use of insulin ([facility]),Type II diabetes mellitus with neurological manifestations ([facility]) Inject 20 Units under the skin [...] 08/06/2022 Active Additional Information Patient taking differently:2 [place] Each NostrilBID(AM/PM), Reported on 12/24/2022 Famotidine 40 [...] 12/24/2022 Methscopolamine [place] 2.5 MG Oral TabletIndications:Ir ritable bowel syndrome [...] Date Dyslipidemia, goal LDL below 70 03/06/20 History [...] 06/04/2014 Pranav Sanchez MD [facility] [place] Spinal pain 06/04/2014 02/02/2017 Type 2 diabetes [...] Sign Reading Time Taken Comments Blood Pressure 92/60 12/27/2022 11:52 AM EDT Pulse 80 12/27/2022 11:52 AM EDT Temperature 36.8 C (98.2 F) 12/27/2022 11:52 AM E DT Respiratory Rate 16 12/27/2022 11:52 AM EDT Oxygen Saturation 98% 12/27/2022 11:52 AM EDT Inhaled Oxygen Concentration - - Weight 105.7 kg (233 lb) 12/27/2022 11:52 AM EDT Height - - Body Mass Index 34.41 10/12/2022 2:18 PM EDT documented in this encounter Progress Notes * Yvette Hinojosa RN - 12/27/2022 12:30 PM EDT [facility] [employer] [place] 1 Visit Date: 12/27/2022 Time: 11:22 AM Name: Liane Alejandre : 1950 Current Concerns: Pt being seen for new enrollment/ [place] 1 s/p hospitalization for septic shock, DAVONTE, UTI. [facility]. Blood and urine cultures both +for klebsiella. Full course of antibiotics finished while inpatient. Pt had acute blood loss anemia. hgb on dc 10.7/ was 7 on admission. EGD done showing gastritis and esophageal candidiasis. Has 3 more days of fluconazole and then course will be complete. Was also discharged on pantoprazole. Omeprazole dcd. Pt noted that diarrhea started when her ozempic was increased to 2mg. cdiff test was done inpatientand showed colonization. CT of abd/pelvis showing colitis. Pt has hx of IBS and has frequent bouts of diarrhea, but this was increased from her normal diarrhea. Uses PRN lomotil. Decreased dose of Ozempic ordered on dc. Per pharmacy, needs new Rx. Ozempic on hold for now per pcp notes, when restarted will need new Rx. Getting home PT,OT through [facility] Wt Readings from Last 8 Encounters: 12/27/22 105.7 kg (233 lb) 12/24/22 106 kg (233 lb 11.2 oz) 10/12/22 112 kg (246 lb 14.4 oz) 09/06/22 109.8 kg (242 lb) 08/09/22 110.4 kg (243 lb 6.4 oz) 05/07/22 111.3 kg (245 lb 6.4 oz) 03/30/22 113.4 kg (250 lb) 03/15/22 116 kg (255 lb 12.8 oz) BP Readings from Last 8 Encounters: 12/27/22 92/60 12/24/22 100/56 10/12/22 96/54 09/06/22 96/58 08/09/22 104/60 05/07/22 124/60 03/30/22 109/48 03/15/22 150/65 Physical Exam: BP 92/60 (BP Site: Left Arm, BP Position: Sitting, BP Cuff Size: Large) | Pulse 80 | Temp 36.8 C (98.2 F) (Infrared ) | Resp 16 | Wt 105.7 kg (233 lb) | SpO2 98% | BMI 34.41 kg/m | BSA 2.27 m Pain 0 Physical Exam Cardiovascular: Rate and Rhythm: Normal rate and regular rhythm. Pulses: Normal pulses. Pulmonary: Effort: Pulmonary effort is normal. Breath [...] Content: Thought content normal. Judgment: Judgment normal. Problems/Symptoms: Review of Systems Constitutional: Negative for chills and fever. HENT: Negative. Respiratory: Negative for shortness of breath and wheezing. Cardiovascular: Positive for leg swelling. Gastrointestinal: Negative. Genitourinary: Negative for decreased urine volume, difficulty urinating and dysuria. Musculoskeletal: Negative. Skin: Negative. Neurological: Positive for weakness. Negative for dizziness and light-headedness. Hematological: Negative. Psychiatric/Behavioral: Negative. Medication Reconciliation: (See medication list) Does patient take medications as ordered: Yes Patient Well Being: PHQ2/9: No questionnaires available. [facility] Completed this Visit: Yes. [facility]-10: Reason Completed: Enrollment [facility]-10 ([facility]) Fall Risk Assessment Tool Age 65+: Yes (12/27/221299) Diagnosis (3 or more co-existing): Yes (12/27/221299) Prior history of falls within 3 months: No (12/27/221299) Incontinence: Yes (12/27/221299) Visual impairment: Yes (12/27/221299) Impaired functional mobility: Yes (12/27/221299) Environmental hazards: Yes (12/27/221299) Poly Pharmacy (4 or more prescriptions - any type): Yes (12/27/221299) Pain affecting level of function: Yes (12/27/221299) Cognitive impairment: No (12/27/221299) Score - a score of 4 or more is considered at risk for fallin (12/27/22 1300) [facility]-10 Interventions: Fall education provided, reviewed/provided Fall brochure Advanced Care Planning: No documentation, will work through acp activity. Patient's Goals of Care: 1. To be able to work in garden 2. To be able to be useful to others Reinforcement/Education: Educated on home safety: Create a fall proof home o Clear floors of clutter, loose wires, throw rugs, and cords. o Make sure halls, stairways, and entrances are well lit. o Install a nightlight in your bedroom, hallway and bathroom. o Install grab bars or handrails in the bathroom and on stairs. o Use a non-skid tub/shower mat. o Avoid climbing on a chair; instead use a step stool with a high handrail. o Keep sidewalks and steps in good repair o Keep steps and sidewalks free of snow and ice. Using aids to support and prevent falls o If you have poor balance or have fallen in the past, consider additional support such as a cane or walker. o Use a cane with good support and that is the proper length for you. o Use a walker if a cane doesnt provide enough support. Avoid medications that increase the risk of falling by causing dizziness, change in sensation or slowed reflexes. o Certain medicines may cause falls - blood pressure pills, heart medicines, water pills, or sleeping pills. o Be sure to understand each medicine that you are taking and any side effects that may occur. Improve your balance and flexibility with muscle strengthening exercises. Ask your health care provider for some exercises that will be right for you. Reinforced safety education and fall prevention. and Reinforced medication regimen. Timing., Dosing. and Purspose. Treatment/Plan: Continue to hold bp meds until otherwise instructed Bryant wraps to BLEs with 's help Low sodium diet Elevate legs above heart level as tolerated x 20 minutes 3 times daily Elevate legs when sitting Get follow up with nephrology-pt will call [facility] provider visit 01/03-wrote down [facility] RNCM return 01/15/23 Home Interventions Provided: Consulted PCP/Specialist Reinforced current Plan of Care, including self-management and medication regimen Patient's 'Red Flags': 1. N/v/diarrhea 2. Decreased urine output 3. Unable to get out of bed Patient Needs to Remember: Call [facility] at with any new or worsening health concerns or problems, red flag symptoms. Referrals Needed: NA Follow Up: Is there cellular connectivity/connectivity in the home? Yes Does the patient have internet in the home? Yes Patient encouraged to call the intake phone number for all urgent but not emergent issues. Is the patient new to [facility] within the last 30 days? Yes, Is this a Transitions of Care visit? Yes, this is the 1st visit. Provider is in agreement with Plan of Care: Yes Scheduled to follow up with patient in 1 week with provider, 2 weeks with RNCM. Yvette Hinojosa RN 12/27/2022 1:19 PM documented in this encounter Miscellaneous Notes * ACP (Advance Care Planning) - Yvette Hinojosa RN - 12/27/2022 12:41 PM EDT Patient-centered Communication 12/27/2022 The patient/surrogate voluntarily agreed to participate in advance care planning discussion. They were advised that this is a separate service which may incur out of pocket cost in the form of copayment and/or deductibles. Location: Home Individual(s) present for conversation: Patient Decisions Synopsis SmartLink Most Recent Value Past ~10 years 12/27/2022 13:25 Decisions CPR decision: Declines CPR 12/27/2022 Declines CPR Intubation/Mechanical Ventilation decision: Declines Intubation/mechanical ventilation 12/27/2022 Declines Intubation/mechanical ventilation Non-invasive ventilation or BIPAP decision: Patient chooses non-invasive ventilation. Select interventions below 01/05/2022 Non-Invasive Ventilation Interventions: Oxygen only 01/05/2022 Antibiotic therapy decision: Patient chooses Antibiotic therapy 01/05/2022 Artificial nutrition decision: Patient chooses Artificial nutrition 01/05/2022 IV hydration decision: Patient chooses IV hydration 01/05/2022 Surgical procedure(s) decision: Patient chooses Surgical procedure 01/05/2022 Blood transfusion decision: Patient chooses Blood transfusion 01/05/2022 Lab draw decision: Patient chooses Lab draws 01/05/2022 Transport decision: Patient chooses Transport 01/05/2022 Dialysis decision: Declines Dialysis 12/27/2022 Declines Dialysis Additional Comments Synopsis SmartLink Most Recent Value Past ~10 years 12/27/2022 13:25 Additional Comments Additional Comments: even while in the hospital and nephrology was recommending dialysis, pt refused. 12/27/2022 even while in the hospital and nephrology was recommending dialysis, pt refused. Discerning What Matters Most to the Patient: [...] any mechanical ventilation Source: Content from [facility] Aligning Care With What Matters Most: Synopsis SmartLink Most Recent Value Past ~10 years 12/27/2022 13:25 Aligning Care With What Matters Most Interventions/Choices: CPR;Intubation/mechanical ventilation;Dialysis 12/27/2022 CPR;Intubation/mechanical ventilation;Dialysis Rationale for Decisions Source: Content from [facility] 20 minutes spent in direct [id number] discussion today, Yvette Hinojosa, RN documented in this encounter Plan of Treatment Upcoming Encounters Date Type Specialty Care Team Description 01/03/2023 Telemedicine [facility] [facility] [address] [place], [address] [place] [address] 01/04/2023 Office Visit [facility]phrology [facility] [address] 01/14/2023 Office Visit Gastroenterology Iris Cerrato PA-C [address] [place] [address] 01/15/2023 Home Visit [facility] Penny Parikh RN [address] [place] [address] 01/16/2023 Office Visit Gastroenterology Geovanna Bahena CRNP [address] [place] [address] 01/17/2023 Imaging Radiology 01/17/2023 Imaging Radiology 02/15/2023 Office Visit Cardiology Sophy Sands PA-C [address] [place] [address] 02/21/2023 Office Visit Ophthalmology Ernie Rivers, DO [address] [place] [address] 04/09/2023 Office Visit Family Medicine Chris Asencio DO [address] [place] [address] 04/24/2023 Office Visit Pharmacy [facility] Amira [address] [place] [address] 05/06/2023 Office Visit Nephrology [facility] [address] Scheduled Procedures Name Priority Associated Diagnoses Date/Ti [...] 09/20/2021, Additional history exists HbA1c 03/08/2023 09/06/2022, 0311/2022, 03/01/2022, Additional history exists DIABETES-EYE EXAM 08/10/2023 08/09/2022, , 04/13/2021, Additional history exists Albumin/Creatinine Ratio 09/07/2023 023, 11/24/2021, 11/15/2020, Additional history exists CKD HGB USE SMARTSET 46734 09/07/202309/06, 09/06/2022, 03/19/2022, Additional history exists CKD PHOS USE SMARTSET 42219 09/07/202308/25, 03/01/2022, 03/27/2021, Additional history exists Depression [...] care planning/counseling discussion- Primary Other specified counseling documented in this encounter Advance Directives Documents on File Type Date Recorded 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 No Care Teams Waterside Worker Relationship Specialty Start Date End Date Chris Asencio DO [address] [place] [address] PCP - General Family Medicine 01/07/18 documented as of this encounter
--- OUTSIDE RECORDS SUMMARY | 2023-06-20 00:49 | External Medical Summary | Summary of Care ---
Author Name Unknown Organization [facility] Address [address] [place] [address] Phone [phone] Care Team Providers Care Band Top Maker Name Role Phone Chris Asencio DO Primary Care Provider Reason for Visit * Reason Onset Date Comments Home Health 12/26/2022 Encounter Details Date Type Department Care Team Description 12/26/2022 Telephone Family Practice [facility] [address] [place] [address] Chris Asencio DO [address] [facility] [place] [address] Home Health Allergies Active Allergy Reactions Severity Noted Date [...] Each 5 10/20/2020 Active Dexcom G6 Vp Medical DeviceIndications:Ty pe 2 diabetes mellitus with stage [...] nephropathy, with long-term current use of insulin ([facility]) CHEW 1 TABLET BY MOUTH [...] mellitus with hemoglobin A1c goal of 7.0%-8.0% ([facility]),Type 2 diabetes mellitus with stage 3a chronic kidney disease, with long-term current use of insulin ([facility]),Type II diabetes mellitus with neurological manifestations ([facility]) Inject 20 Units under the [...] 08/06/2022 Active Additional Information Patient taking differently:2 [place] Each NostrilBID(AM/PM), Reported on 12/24/2022 Famotidine 40 MG Oral Tablet (Pepcid) TAKE 1 TABLET BY MOUTH EVERY DAY 90 Tablet 2 08/06/2022 Active Budesonide 0.5 MG/2ML Inhalation Suspension (Pulmicort)Indicatio ns:Acute respiratory disease due to COVID-19 virus INHALE VIA NEBULIZER 1 VIAL IN THE MORNING AND 1 VIAL BEFORE BEDTIME 360 mL 2 08/06/2022 Active Additional Information Patient not taking.Reported on 12/24/2022 Metoprolol Succinate ER 25 MG Oral Tablet [...] Additional Information Patient not taking.Reported on 12/24/2022 Prochlorperazine Maleate 10 MG Oral Tablet (Compazine)Indicatio [...] Information Patient not taking.Reported on 12/24/2022 Methscopolamine [place] 2.5 MG Oral TabletIndications:Ir ritable bowel syndrome [...] Overview: Signed 06/04/2014 Pranav Sanchez MD [facility] [place] Spinal pain 06/04/2014 02/02/2017 Type 2 diabetes [...] mRNA, LNP-s, No Pre serve, 2-Dose Series ([place]) 09/09/2020,08/19/2020 Pneumococcal Conjugate Vacc, 13 Valent (Prevnar) [...] Telephone Encounter - Kellie Gutierres LPN - 12/26/2022 12:56 PM EDT Provider to address: Chris Asencio DO Reason for Call: Home Health Contact: Telephone Call Contact Type: Information Outcome: mickey Powell from [facility] Home Health calling: Evaluation done and continuation orders requested for: PT 1 times per week for 1 weeks Then 2 times a week for 2 weeks Then 1 time a week for 2 weeks Focusing on: Gait Training, stair training, therapeutic exercise, home exercise program. Advised that additional visit orders will be signed by Chris Asencio DO and to fax to the office for signature Total Time including non face to face (minutes): 5 documented in this encounter Plan of Treatment Upcoming Encounters Date Type Specialty Care Team Description 01/03/2023 Telemedicine [facility] Kristal Vora CRNP [address] [facility] [place] [address] [place], [address] [place] [address] 01/11/2023 Office Visit Family Medicine Ramiro Hitchcock CRNP [address] [place] [address] 01/14/2023 Office Visit Gastroenterology Iris Cerrato PA-C [address] [place] [address] 01/15/2023 Home Visit [facility] Penny Parikh RN [address] [place] [address] 01/16/2023 Office Visit Gastroenterology Geovanna Bahena CRNP [address] [place] [address] 01/17/2023 Imaging Radiology 01/17/2023 Imaging Radiology 02/15/2023 Office Visit Cardiology Sophy Sands PA-C [address] [place] [address] 02/21/2023 Office Visit Ophthalmology Ernie Rivers DO [address] [place] [address] 04/09/2023 Office Visit Family Medicine Chris Asencio DO [address] [place] [address] 04/24/2023 Office Visit Pharmacy [facility] Alta Collier [address] [place] [address] 05/06/2023 Office Visit Nephrology [facility] Day MD [facility] [place] [address] Scheduled Procedures Name Priority Associated Diagnoses Date/Ti [...] Additional history exists CKD HGB USE SMARTSET 73165 09/07/202309/06, 09/06/2022, 03/19/2022, Additional history exists CKD PHOS USE SMARTSET 23837 09/07/202308/25, 03/01/2022, 03/27/2021, Additional history exists Depression [...] Documents on File Type Date Recorded Patient Educational Director Expl anation POLST 10/20/2021 [place] OR [facility] [...] the patient have Health Care Power of Workforce Development Vice President? No Care Teams Band Top Maker Relationship Specialty Start Date End Date Chris Asencio DO [address] [place] [address] PCP - General Family Medicine 01/07/18 documented as of this encounter
--- OUTSIDE RECORDS SUMMARY | 2023-06-20 00:49 | External Medical Summary | Summary of Care ---
Author Name Unknown Organization [facility] Address [address] [place] [address] Phone [phone] Care Team Providers Care Concrete Pourer Name Role Phone Chris Asencio DO Primary Care Provider Reason for Visit * Reason Comments Hospital Follow-Up Septic shock, UTI, v olume overload, DAVONTE, hyponatremia, hyperkalemia, metabolic acidosis, esophageal candidiasis, diffuse gastritis, acute blood loss anemia - patient states she is feeling really weak today Encounter Details Date Type Department Care Team Description 12/24/2022 Office Visit Family [facility] [address] [place] [address] Ramiro Hitchcock CRNP [address] [place] [address] Hospital discharge follow-up*; Hx of sepsis; Acute kidney injury (HCC); Anemia, unspecified type; Diarrhea, unspecified type; Type 2 diabetes mellitus with stage 3a chronic kidney disease, with long-term current use of insulin (HCC); Moderate persistent asthma without complication; KARI (generalized anxiety disorder); Pedal edema; HTN, goal below 130/80 Allergies Active Allergy [...] 1 Each 5 10/20/2020 Active Dexcom G6 Concessionist DeviceIndications:Ty pe 2 diabetes mellitus with stage 3a chronic kidney disease, with long-term current use of insulin ([facility]) Use as directed. 1 Each 1 10/20/2020 [...] long-term current use of insulin ([facility]) CHEW 1 TABLET BY MOUTH EVERY DAY [...] EVERY DAY 90 Tablet 3 04/04/2022 Active Toufrederick SoloStar 300 UNIT/ML Subcutaneous Solution Pen-injector (Insulin Glargine (1 Unit Dial))Indications:Ty pe 2 diabetes mellitus with hemoglobin A1c goal of 7.0%-8.0% ([facility]),Type 2 diabetes mellitus with stage 3a chronic kidney disease, with long-term current use of insulin ([facility]),Type II diabetes mellitus with neurological manifestations ([facility]) Inject 20 Units under the skin in [...] 08/06/2022 Active Additional Information Patient taking differently:2 [place] Each NostrilBID(AM/PM), Reported on 12/24/2022 Famotidine [...] Information Patient not taking.Reported on 12/24/2022 Methscopolamine [place] 2.5 MG Oral TabletIndications:Ir ritable bowel syndrome [...] 018 Overview: Signed 06/04/2014 Pranav Sanchez MD [facility] [place] Spinal pain 06/04/2014 02/02/2017 Type 2 diabetes [...] mRNA, LNP-s, No Pre serve, 2-Dose Series ([email or web address]) 09/09/2020,08/19/2020 Pneumococcal Conjugate Vacc, 13 Valent (Prevnar) [...] Sign Reading Time Taken Comments Blood Pressure 100/56 12/24/2022 3:32 PM EDT Pulse 88 12/24/2022 3:32 PM EDT Temperature 36.8 C (98.2 F) 12/24/2022 3:32 PM ED T Respiratory Rate 16 12/24/2022 3:32 PM EDT Oxygen Saturation - - Inhaled Oxygen Concentration - - Weight 106 kg (233 lb 11.2 oz) 12/24/2022 3:32 P M EDT Height - - Body Mass Index 34.51 10/12/2022 2:18 PM EDT documented in this encounter Progress Notes * ADELA Shaikh - 12/24/2022 3:37 PM EDT Images from the original note were not included. Follow up Family Medicine Visit History of Present Illness Liane Alejandre is a 72 year old female with PMH listed below presenting with Hospital follow up. [facility] 12/12/22 to 12/22/22 UTI, severe sepsis, DAVONTE, blood transfusion. Her Ozempic dose was increase to 2 mg and she had severe diarrhea about 10 days to admission. Urosepsis - Klebsiella pneumoniae, treated with IV flagyl and ceftriaxone Repeat UCX negative DAVONTE related to septic shock, hyponatremia, hyperkalemia, metabolic acidosis Cr was 13.3, trend down to 1.2 on discharge 12/22/22 Acute blood loss anemia EGD on 12/17 gastritis and esophageal candidiasis Hgb down from 10.7 on admission to 7 1 unit of PRBC + Fecal occult Protonix BID Fluconazole Outpatient colonoscopy planned Diarrhea C.diff colonization, CT abdo/pelvis colitis Ambulatory dysfunction Declined rehab, home PT/OT Still feels tired and not back to her baseline. Adequate urine outputs, measuring I&O. Social History Socioeconomic History Marital status: Spouse [...] on file Housing Stability: Not on file PMH: Past Medical History: Diagnosis Date Acute respiratory [...] 12/07/2014 ischemic colitis, hyperplastic polyp, repeat 5 yrs/[facility] COLONOSCOPY, DIAGNOSTIC (RECTUM) 03/17/2021 poor prep/sigmoid diverticulosis/biopsies normal/recall 5 years/COLONOSCOPY FLEXIBLE PROXIMAL DIAGNOSTIC performed by Brittany Blackman MD at ENDOSCOPY [facility] EGD, FLEXIBLE, DIAGNOSTIC N/A 12/17/2022 esophageal plaques, suspicious for candidias/diffuse gastritis/biopsies confirm casie/EGD/CO EXC BREAST LESION RADMARK Right 03/30/2022 EXCISION OF BREAST LESION RADIOLOGICAL MARKER performed by Lila Mora MD at OR [facility] KNEE ARTHROSCOPY, DIAGNOSTIC 1989 Knee Arthroscopy REMOVE GALLBLADDER 1974 Cholecystectomy, Open TOTAL ABD HYSTERECTOMY W/WO REMOVAL OF TUBE(S) 1986 for endometriosis Outpatient Medications Marked as Taking for the 12/24/22 encounter (Office Visit) with ADELA Shaikh Medication Sig Albuterol Sulfate (2.5 MG/3ML) 0.083% Inhalation Nebulization Solution (Proventil) Inhale 1 Vial via nebulizer every 4 hours as needed for Wheezing or Shortness of Breath. Fluconazole 100 MG Oral Tablet (Diflucan) Take 1 Tablet by mouth in the morning. Ondansetron 4 MG Oral Tablet Disintegrating (Zofran) Place 1 Tablet on tongue every 6 hours as needed for Nausea. dissolve on tongue. Pantoprazole Sodium 40 MG Oral Tablet Delayed Release (Protonix) Take 1 Tablet by mouth in the morning and 1 Tablet before bedtime. OneTouch Verio In Vitro Strip (Glucose Blood) USE UP TO 4 TIMES A DAY DIRECTED Triamcinolone Acetonide 0.1 % External Cream (Aristocort) Apply to rash on body nightly as needed Methscopolamine [place] 2.5 MG Oral Tablet TAKE 1 TAB UP TO 3 TIMES DAILY NEEDED FOR ABDOMINAL CRAMPS & DIARRHEA, Pramipexole Dihydrochloride 1 MG Oral Tablet (Mirapex) Take 1 Tablet by mouth at bedtime. Breo Ellipta 100-25 MCG/ACT Inhalation Aerosol Powder Breath Activated (fluticasone furoate-vilanterol) INHALE 1 PUFF BY MOUTH EVERY DAY Diphenoxylate-Atropine 2.5-0.025 MG Oral Tablet (Lomotil) Take 2 Tablets by mouth every 6 hoursas needed for Diarrhea. EpiPen 2-Ronni 0.3 MG/0.3ML Injection Solution Auto-injector For a severe reaction: Place orange end against the outer thigh, press firmly, hold in place for 10 seconds and go to the Emergency room. Prochlorperazine Maleate 10 MG Oral Tablet (Compazine) TAKE 1 TABLET BY MOUTH EVERY 6 HOURS NEEDED FOR NAUSEA Alosetron HCl 1 MG Oral Tablet TAKE 1 MG BY MOUTH 2 TIMES A DAY. Famotidine 40 MG Oral Tablet (Pepcid) TAKE 1 TABLET BY MOUTH EVERY DAY Fluticasone Propionate 50 MCG/ACT Nasal Suspension (Flonase) ADMINISTER INTO EACH NOSTRIL 2 SPRAYS IN THE MORNING. (Patient taking differently: Administer 2 Sprays into each nostril in the morning and 2 Sprays before bedtime.) Metoprolol Succinate ER 25 MG Oral Tablet Extended Release 24 Hour (toPROL XL) TAKE 1 TAB BY MOUTH EVERY MORNING AND ONE-HALF TAB AT BEDTIME. Montelukast Sodium 10 MG Oral Tablet (Singulair) TAKE 1 TABLET BY MOUTH EVERY DAY Mathew RodriguezoStar 300 UNIT/ML Subcutaneous Solution Pen-injector (Insulin Glargine (1 Unit Dial))Inject 20 Units under the skin in the morning. Atorvastatin Calcium 40 MG Oral Tablet (Lipitor) TAKE 1 TABLET BY MOUTH EVERY DAY IN THE MORNING Ferate 240 (27 Fe) MG Oral Tablet (Ferrous Gluconate) TAKE BY MOUTH 1 TABLET DAILY . Furosemide 40 MG Oral Tablet (Lasix) TAKE 1 TABLET BY MOUTH EVERY DAY Diclofenac Sodium 1 % External Gel (Voltaren) PLACE 4 GRAMS TOPICALLY ON THE SKIN TWICE DAILY TO AFFECTED AREAS DIRECTED (Patient taking differently: 2 g in the morning and 2 g at noon and 2 gin the evening and [address] 4 GRAMS TOPICALLY ON THE SKIN TWICE DAILY TO AFFECTED AREAS DIRECTED.) Aspirin Low Dose 81 MG Oral Tablet Chewable (aspirin) CHEW 1 TABLET BY MOUTH EVERY DAY Acetaminophen ER 650 MG Oral Tablet Extended Release Take 1 Tablet by mouth every 8 hours as needed. Proventil HFA 108 (90 Base) MCG/ACT Inhalation Aerosol Solution Inhale 1-2 Puffs by mouth 4 times a day as needed for Shortness of Breath or Wheezing. As needed Systane Complete 0.6 % Ophthalmic Solution (Propylene Glycol) Instill 1 Drop into both eyes in the morning and 1 Drop at noon and 1 Drop in the evening and 1 Drop before bedtime. BD Pen Needle Mini U/F 31G X 5 MM (Insulin Pen Needle) USE DIRECTED WITH Lenet Dexcom G6 Concessionist Device Use as directed. Dexcom G6 Sensor Use as directed. Dexcom G6 Transmitter Use as directed. Doxepin HCl 100 MG Oral Capsule (SINEquan) Take 1 Capsule by mouth at bedtime. clonazePAM 0.5 MG Oral Tablet Take 1 Tablet by mouth 3 times a day as needed for Anxiety. ONETOUCH DELICA LANCETS FINE MISC Use up to four times a day as directed DX E11.9 multivitamin (MVI) Tablet TAKE 1 TABLET BY MOUTH EVERY DAY FOR SUPPLEMENT Spacer/Aero-Holding Chambers LAURA Use with inhaler. Current Facility-Administered Medications for the 12/24/22 encounter (Office Visit) with ADELA Shaikh Medication albuterol sulfate (PROVENTIL) (2.5 MG/3ML) 0.083% inhalation solution 2.5 mg Review of patient's allergies indicates: Allergen Reactions [...] fatigue after medication. Melatonin Nervous , anxiety Most Recent Immunizations Administered Date(s) Administered COVID-19 mRNA, LNP-s, No Preserve, 2-Dose Series ([email or web address]) 09/09/2020 Pneumococcal Conjugate Vacc, 13 Valent (Prevnar) 04/03/2018 Pneumococcal Polysaccharide PPV23 (Pneumovax) 04/04/2019 Seasonal Influenza, Quadrivalent Hd (Fluzone Hd) 03/01/2022 Seasonal Influenza, Quadrivalent, No Preserve, 6 Mons & Above, IM 02/25/2020 Seasonal Influenza, Quadrivalent, No Preserve, IM 03/04/2020 Seasonal Influenza, Split, IIV3, With Preserve, Inj 01/27/2015 Seasonal Influenza, Trivalent, High Dose, No Preserve, IM 02/16/2019 TD, Preservative Free 04/16/2016 TDAP (age 11 and older)(Adacel) 04/12/2006 Varicella Zoster Vaccine (Adult) 03/12/2013 Review of Systems: Physical Exam BP 100/56 (BP Site: Left Arm, BP Position: Sitting, BP Cuff Size: Large) | Pulse 88 | Temp 36.8 C(98.2 F) (Tympanic) | Resp 16 | Wt 106 kg (233 lb 11.2 oz) | BMI 34.51 kg/m | BSA 2.27 m Physical Exam Constitutional: Appearance: She is ill-appearing. HENT: Head: Normocephalic. Cardiovascular: Rate and Rhythm: Normal rate and regular rhythm. Pulmonary: Effort: Pulmonary effort is normal. Breath sounds: Normal breath sounds. Musculoskeletal: Cervical back: Neck supple. Skin: General: Skin is warm. Neurological: Mental Status: She is alert and oriented to person, place, and time. Psychiatric: Mood and Affect: Mood normal. Assessment and Plan 1. Hospital discharge follow-up UTI, septic shock, DAVONTE, anemia, diarrhea, Right IJ CVC Feeling fatigue, tired, but better than when she was in the hospital Recommend f/u with nephrology, scheduled [facility] home health is scheduled 2. Hx of sepsis 3. Acute kidney injury (HCC) 4. Anemia, unspecified type Iron 325 every other day, repeat CBC in 1 month - CBC WITH WBC DIFFERENTIAL AND ANEMIA REFLEX WORKUP; Future - IRON SCREEN, INCLUDING TIBC; Future 5. Diarrhea, unspecified type Cont imodium, f/u with GI for outpt colonoscopy 6. Type 2 diabetes mellitus with stage 3a chronic kidney disease, with long-term current use of insulin ([facility]) A1C 6.4 during hospitazationa Off Ozempic for now 7. Moderate persistent asthma without complication 8. KARI (generalized anxiety disorder) 9. Pedal edema Compression stocking, low sodium Currently using lasix 40mg daily -- defer to nephrology 10. HTN, goal below 130/80 Stopped linisopril/clonidine Wrap-Up I have advised the patient to call our office with any worsening or new symptoms. I spent a total of Greater than 55 mins (exact time 59 mins) on the date of service in preparation,delivery, and documentation of the care provided to Liane Alejandre excluding any time spent in the performance of separately billed services. BONNIE Shaikh, ADELA [facility] documented in this encounter Nursing Notes * Brian Richmond RN - 12/24/2022 3:11 PM EDT Chief Complaint Patient presents with Hospital Follow-Up Septic shock, UTI, volume overload, DAVONTE, hyponatremia, hyperkalemia, metabolic acidosis, esophagealcandidiasis, diffuse gastritis, acute blood loss anemia - patient states she is feeling really weaktoday documented in this encounter Plan of Treatment Upcoming Encounters Date Type Specialty Care Team Description 01/03/2023 Telemedicine [facility] Kristal Vora CRNP [address] [facility] [place] [address] [place] Dan, [address] [place] [address] 01/11/2023 Office Visit Family Medicine Ramiro Hitchcock CRNP [address] [place] [address] 01/14/2023 Office Visit Gastroenterology Iris Cerrato PA-C [address] [place] [address] 01/15/2023 Home Visit [facility] Penny Parikh RN [address] [place] [address] 01/16/2023 Office Visit Gastroenterology Geovanna Bahena CRNP [address] [place] [address] 01/17/2023 Imaging Radiology 01/17/2023 Imaging Radiology 02/15/2023 Office Visit Cardiology Sophy Sands PA-C [address] [place] [address] 02/21/2023 Office Visit Ophthalmology Ernie Rivers, [address] [place] [address] 04/09/2023 Office Visit Family Medicine Chris Asencio DO [address] [place] [address] 04/24/2023 Office Visit Pharmacy [facility] [place] Collier [address] [place] [address] 05/06/2023 Office Visit Nephrology [facility] Day MD [address] [facility] [place] [address] Scheduled Orders Name Type Priority Associated Diagnoses Orde r Schedule CBC WITH WBC DIFFERENTIAL AND ANEMIA REFLEX WORKUP Lab Routine Anemia, unspecified type Expected: 01/24/2023 (Approximate), Expires: 12/25/2023 IRON SCREEN, INCLUDING TIBC Lab Routine Anemia, unspecified type Expected: 01/24/2023 (Approximate), Expires: 12/24/2023 Scheduled Procedures Name Priority Associated Diagnoses Date/Ti [...] Additional history exists CKD HGB USE SMARTSET 06816 09/07/202309/06, 09/06/2022, 03/19/2022, Additional history exists CKD PHOS USE SMARTSET 49091 09/07/202308/25, 03/01/2022, 03/27/2021, Additional history exists Depression [...] Hospital discharge follow-up- Primary Other follow-up examination Hx of sepsis Personal history of other infectious and parasitic disease Acute kidney injury (HCC) Acute kidney failure, unspecified Anemia, unspecified type Diarrhea, unspecified type Type 2 diabetes mellitus with stage 3a chronic kidney disease, with long-term current use of insulin (HCC) Moderate persistent asthma without complication Unspecified asthma KARI (generalized anxiety disorder) Generalized anxiety disorder Pedal edema Edema HTN, goal below 130/80 Unspecified essential hypertension documented in this encounter Advance Directives Documents on File Type Date Recorded 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 Question Answer Comments Discussion of Advance Directives occurred with: Patient Does the patient have a Living Will? No Does the patient have Health Care Power of Bag Turner? No Care Teams Concrete Pourer Relationship Specialty Start Date End Date Chris Asencio, [address] [place] [address] PCP - General Family Medicine 01/07/18 documented as of this encounter
--- OUTSIDE RECORDS SUMMARY | 2023-06-20 00:49 | External Medical Summary | Summary of Care ---
Author Name Unknown Organization [facility] Address [address] [place] [address] Phone [phone] Care Team Providers Care Utility Person Name Role Phone Chris Asencio Primary Care Provider Reason for Visit * Reason Onset Date Comments [facility] Care Coordination Services 12/24/2022 Encounter Details Date Type Department Care Team Description 12/24/2022 Telephone Care Coordination [address] [place] [address] Tracey Davis, Community Health Hides Inspector [address], [place] [id number] [facility] Care Coordination Services Allergies Active Allergy Reactions Severity Noted Date [...] Each 5 10/20/2020 Active Dexcom G6 Electrical Tester DeviceIndications:Ty pe 2 diabetes mellitus with stage [...] use of insulin ([facility] CHEW 1 TABLET BY [...] with hemoglobin A1c goal of 7.0%-8.0% ([facility]),Type 2 diabetes mellitus with stage 3a chronic kidney disease, with long-term current use of insulin ([facility]),Type II diabetes mellitus with neurological manifestations ([facility]) Inject 20 Units under [...] 08/06/2022 Active Additional Information Patient taking differently:2 [place] Each NostrilBID(AM/PM), Reported on 12/24/2022 Famotidine 40 [...] Information Patient not taking.Reported on 12/24/2022 Methscopolamine [place] 2.5 MG Oral TabletIndications:Ir ritable bowel syndrome [...] as needed 30 g 0 11/28/2022 Active Omeprazole 20 MG Oral Capsule Delayed [...] CKD protocol Current use of insulin 07/10/2018 1 Body [...] 018 Overview: Signed 06/04/2014 Pranav Sanchez MD [facility] Pharmacy [place] Spinal pain 06/04/2014 02/02/2017 Type 2 diabetes [...] mRNA, LNP-s, No Pre serve, 2-Dose Series ([employer]) 09/09/2020,08/19/2020 Pneumococcal Conjugate Vacc, 13 Valent (Prevnar) [...] encounter Miscellaneous Notes * Telephone Encounter - Kayli Cool LPN - 12/24/2022 4:45 PM EDT Call to pt at home#[phone] no answer left VM requesting a return call to [facility] at [phone] opt#3 Call to no answer left VM and return number as above Call to pt's contact son Polo at [phone] recoding states call can not be completed as dialed. * Telephone Encounter - Marlee Escobar RN - 12/24/2022 3:54 PM EDT Spoke with patient at office visit, she prefers to follow with G@H services. Made aware they will be reaching out to her. * Telephone Encounter - Tracey Davis, Community Health Hides Inspector - 12/24/2022 12:03 PM EDT CAMERON-A: - This patient alerted in IVR (Direct to IVR enrollment?) for waiting for contact from home health,unsteadiness/dizziness when walking at home, help caring for self and request call from nurse. - CAMERON-A contacted CM via Teams with above information. As per CM, will disenroll from IVR and CM will re-enroll if needed. - Patient has appointment at [facility] PCP today and CM will attempt to talk to patient and willfollow up. MERRY Sanchez CAMERON-A [phone] Electronically signed by Tracey Davis [facility] Hides Inspector at 12/24/2022 12:04 PM EDT documented in this encounter Plan of Treatment Upcoming Encounters Date Type Specialty Care Team Description 01/03/2023 Telemedicine [facility] Kristal Vora CRNP [address] [facility] [place] [address] [place] Dan [facility] Hides Inspector [address] [place] [address] [place] [address] 01/11/2023 Office Visit Family Medicine Ramiro Hitchcock CRNP [address] [place] [address] 01/14/2023 Office Visit Gastroenterology Iris Cerrato PA-C [address] [place] [address] 01/15/2023 Home Visit [facility] Penny Parikh RN [address] [place] [address] 01/16/2023 Office Visit Gastroenterology Geovanna Bahena CRNP [address] [place] [address] 01/17/2023 Imaging Radiology 01/17/2023 Imaging Radiology 02/15/2023 Office Visit Cardiology Sophy Sands PA-C [address] [place] [address] 02/21/2023 Office Visit Ophthalmology Ernie Rivers, DO [address] [place] [address] 04/09/2023 Office Visit Family Medicine Chris Asencio DO [address] [place] [address] 04/24/2023 Office Visit Pharmacy [facility] Amira [address] [place] [address] 05/06/2023 Office Visit Nephrology Eric Day MD [address] [facility], [place] [address] Scheduled Procedures Name Priority Associated Diagnoses Date/Ti [...] Additional history exists CKD HGB USE SMARTSET 72723 09/07/202309/06, 09/06/2022, 03/19/2022, Additional history exists CKD PHOS USE SMARTSET 21496 09/07/202308/25, 03/01/2022, 03/27/2021, Additional history exists Depression [...] Documents on File Type Date Recorded 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 No Care Teams Utility Person Relationship Specialty Start Date End Date Chris Asencio DO [address] [place] [address] PCP - General Family Medicine 01/07/18 documented as of this encounter
--- OUTSIDE RECORDS SUMMARY | 2023-06-20 00:50 | External Medical Summary | Summary of Care ---
Author Name Unknown Organization [facility] Address [address] [place] [address] Phone [phone] Care Team Providers Care Veterinary Pharmacologist Name Role Phone Chris Asencio DO Primary Care Provider Reason for Visit * Reason Onset Date Comments Hospital Follow-Up 12/25/2022 Encounter Details Date Type Department Care Team Description 12/25/2022 Telephone General Internal Medicine [facility] [address] [place] [address] Chris Asencio DO [address] [place] [address] Hospital Follow-Up Allergies Active Allergy Reactions Severity [...] as of this encounter (statuses as of 12/26/2022) Medications Medication Sig Dispensed Refills Start Date [...] 1 Each 5 10/20/2020 Active Dexcom G6 Mold Tooling Technician DeviceIndications:Typ e 2 diabetes mellitus with [...] EVERY DAY 90 Tablet 1 09/22/2021 Active Omeprazole 20 MG Oral Capsule Delayed Release (PriLOSEC) TAKE 1 CAPSULE BY MOUTH EVERY DAY 90 Capsule 3 01/20/2022 Active Additional Information Patient not taking.Reported on 12/24/2022 Diclofenac Sodium 1 % External Gel (Voltaren) [...] 08/06/2022 Active Additional Information Patient taking differently:2 [place] Each NostrilBID(AM/PM), Reported on 12/24/2022 Famotidine 40 [...] 12/24/2022 Prochlorperazine Maleate 10 MG Oral Tablet (Compazine)Indication [...] EVERY DAY 180 Each 1 09/13/2022 Active cloNIDine HCl 0.1 MG Oral Tablet (Catapres) Take 1 Tablet by mouth at bedtime. 0 09/28/2022 Active Pramipexole Dihydrochloride 1 MG Oral Tablet (Mirapex)Indications: Right knee pain, unspecified chronicity Take 1 Tablet by mouth at bedtime. 90 Tablet 3 10/23/2022 Active Ozempic (2 MG/DOSE) 8 MG/3ML Subcutaneous Solution Pen-injector (Semaglutide (2 MG/DOSE)) Inject 0.75 mL under the skin once a week. 9 mL 3 10/24/2022 Active Additional Information Patient not taking.Reported on 12/24/2022 Methscopolamine [place] 2.5 MG Oral TabletIndications:Irr itable bowel syndrome [...] as of this encounter (statuses as of 12/26/2022) Active Problems Problem Noted Date Dyslipidemia, goal [...] as of this encounter (statuses as of 12/26/2022) Resolved Problems Problem Noted Date Resolved Date [...] USE AGREEMENT 06/04/2014 018 Overview: Signed 06/04/2014 rPanav Sanchez MD [facility] Pharmacy [place] Spinal pain 06/04/2014 02/02/2017 Type 2 diabetes [...] as of this encounter (statuses as of 12/26/2022) Immunizations Name Administration Dates Next Due COVID-19 mRNA, LNP-s, No Pre serve, 2-Dose Series ([employer]) 09/09/2020,08/19/2020 Pneumococcal Conjugate Vacc, 13 Valent (Prevnar) [...] 12/25/2022 1:05 PM EDT Patient discharged from [facility] on 12/22/22 after treatment for septic shock. Nephrology was consulted for DAVONTE. No recommendations for follow up. Please assess if follow up is needed. Thank you documented in this encounter Plan of Treatment Upcoming Encounters Date Type Specialty Care Team Description 12/27/2022 Home Visit [facility] Yvette Hinojosa RN [address] [facility] [place] [address] 01/03/2023 Telemedicine [facility] Kristal Vora CRNP [address] [facility] [place] [address] [place], [address] [place] [address] 01/11/2023 Office Visit Family Medicine Ramiro Hitchcock CRNP [address] [place] [address] 01/14/2023 Office Visit Gastroenterology Iris Cerrato PA-C [address] [place] [address] 01/16/2023 Office Visit Gastroenterology Geovanna Bahena CRNP [address] [place] [address] 01/17/2023 Imaging Radiology 01/17/2023 Imaging Radiology 02/15/2023 Office Visit Cardiology Sophy Sands PA-C [address] [place] [address] 02/21/2023 Office Visit Ophthalmology Ernie Rivers DO [address] [place] [address] 04/09/2023 Office Visit Family Medicine Chris Asencio DO [address] [place] [address] 04/24/2023 Office Visit Pharmacy [facility] [address] Amira [address] [place] [address] 05/06/2023 Office Visit Nephrology Eric Day MD [address] [place] [address] Scheduled Procedures Name Priority Associated Diagnoses Date/Ti [...] Additional history exists CKD HGB USE SMARTSET 95209 09/07/202309/06, 09/06/2022, 03/19/2022, Additional history exists CKD PHOS USE SMARTSET 45328 09/07/202308/25, 03/01/2022, 03/27/2021, Additional history exists Depression [...] Documents on File Type Date Recorded 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 Question Answer Comments Discussion of Advance Directives occurred with: Patient Does the patient have a Living Will? No Does the patient have Health Care Power of Air Table Operator? No Care Teams Veterinary Pharmacologist Relationship Specialty Start Date End Date Chris Asencio DO [address] [place] [address] PCP - General Family Medicine 01/07/18 documented as of this encounter
--- OUTSIDE RECORDS SUMMARY | 2023-06-20 00:50 | External Medical Summary | Summary of Care ---
Author Name Unknown Organization [facility] Address [address] [place] [address] Phone [phone] Care Team Providers Care Earthmoving Plant Operator Name Role Phone Chris Asencio DO Primary Care Provider Reason for Visit * Reason Comments Hospital Follow-Up Septic shock, UTI, v olume overload, DAVONTE, hyponatremia, hyperkalemia, metabolic acidosis, esophageal candidiasis, diffuse gastritis, acute blood loss anemia - patient states she is feeling really weak today Encounter Details Date Type Department Care Team Description 12/24/2022 Office Visit Family [facility] [address] [place] [address] Ramiro Hitchcock CRNP [address] [place] [address] Hospital discharge follow-up*; Hx of sepsis; Acute [...] 1 Each 5 10/20/2020 Active Dexcom G6 Precast Concrete Products Installer DeviceIndications:Ty pe 2 diabetes mellitus with stage [...] insulin ([facility]) CHEW 1 TABLET BY MOUTH EVERY DAY [...] hemoglobin A1c goal of 7.0%-8.0% ([facility]),Type 2 diabetes mellitus with stage 3a chronic kidney disease, with long-term current use of insulin ([facility]),Type II diabetes mellitus with neurological manifestations ([facility]) Inject 20 Units under the skin in [...] 08/06/2022 Active Additional Information Patient taking differently:2 [place] Each NostrilBID(AM/PM), Reported on 12/24/2022 Famotidine 40 [...] Information Patient not taking.Reported on 12/24/2022 Methscopolamine [place] 2.5 MG Oral TabletIndications:Ir ritable bowel syndrome [...] 06/04/2014 Pranav Sanchez MD [facility] Pharmacy [place] Spinal pain 06/04/2014 02/02/2017 Type 2 diabetes [...] mRNA, LNP-s, No Pre serve, 2-Dose Series ([employer]) 09/09/2020,08/19/2020 Pneumococcal Conjugate Vacc, 13 Valent (Prevnar) [...] listed below presenting with Hospital follow up. [facility] 12/12/22 to 12/22/22 UTI, severe sepsis, DAVONTE, [...] 12/07/2014 ischemic colitis, hyperplastic polyp, repeat 5 yrs/[facility] COLONOSCOPY, DIAGNOSTIC (RECTUM) 03/17/2021 poor prep/sigmoid diverticulosis/biopsies normal/recall 5 years/COLONOSCOPY FLEXIBLE PROXIMAL DIAGNOSTIC performed by Brittany Blackman MD at ENDOSCOPY [facility] EGD, FLEXIBLE, DIAGNOSTIC N/A 12/17/2022 esophageal plaques, suspicious for candidias/diffuse gastritis/biopsies confirm casie/EGD/UT EXC BREAST LESION RADMARK Right 03/30/2022 EXCISION OF BREAST LESION RADIOLOGICAL MARKER performed by Lila Mora MD at OR [facility] KNEE ARTHROSCOPY, DIAGNOSTIC 1989 Knee [...] rash on body nightly as needed Methscopolamine [place] 2.5 MG Oral Tablet TAKE 1 TAB [...] MM (Insulin Pen Needle) USE DIRECTED WITH [employer] Dexcom G6 Precast Concrete Products Installer Device Use as directed. Dexcom G6 Sensor [...] COVID-19 mRNA, LNP-s, No Preserve, 2-Dose Series ([employer]) 09/09/2020 Pneumococcal Conjugate Vacc, 13 Valent (Prevnar) [...] the hospital Recommend f/u with nephrology, scheduled [facility] home health is scheduled 2. Hx of [...] insulin ([facility]) A1C 6.4 during hospitazationa Off Ozempic for [...] of separately billed services. BONNIE Shaikh, ADELA [facility] documented in this encounter Nursing Notes * [...] Team Description 01/03/2023 Telemedicine [facility] DionyKristal CRNP [address] [facility] [place] [address] [place], [address] [place] [address] 01/11/2023 Office Visit Family Medicine Ramiro Hitchcock CRNP [address] [place] [address] 01/14/2023 Office Visit Gastroenterology Iris Cerrato PA-C [address] [place] [address] 01/16/2023 Office Visit Gastroenterology Geovanna Bahena CRNP [address] [place] [address] 01/17/2023 Imaging Radiology 01/17/2023 Imaging Radiology 02/15/2023 Office Visit Cardiology Sophy Sands PA-C [address] [place] [address] 02/21/2023 Office Visit Ophthalmology Ernie Rivers DO [address] [place] [address] 04/09/2023 Office Visit Family Medicine Chris Asencio DO [address] [place] [address] 04/24/2023 Office Visit Pharmacy [facility] [address] Amira [address] [place] [address] 05/06/2023 Office Visit Nephrology Eric Day MD [address] [facility] [place] [address] Scheduled Orders Name Type Priority Associated Diagnoses [...] Additional history exists CKD HGB USE SMARTSET 93140 09/07/202309/06, 09/06/2022, 03/19/2022, Additional history exists CKD PHOS USE SMARTSET 10770 09/07/202308/25, 03/01/2022, 03/27/2021, Additional history exists Depression [...] Documents on File Type Date Recorded Patient Forge Press Operator Expl anation POLST 10/20/2021 [place] [facility] FOR LIFE-SUSTAINING TREATMENT [...] the patient have Health Care Power of Progress Man? No Care Teams Earthmoving Plant Operator Relationship Specialty Start Date End Date Chris Asencio DO [address] [place] [address] PCP - General Family Medicine 01/07/18 documented as of this encounter
--- OUTSIDE RECORDS SUMMARY | 2023-06-20 00:50 | External Medical Summary | Summary of Care ---
Author Name Unknown Organization [facility] Address [address] [place] [address] Phone [phone] Care Team Providers Care Electronic Design Engineer Name Role Phone Chris Asencio DO Primary Care Provider Reason for Visit * Reason Onset Date Comments Home Health 12/26/2022 Encounter Details Date Type Department Care Team Description 12/26/2022 Telephone Family Practice [facility] [address] [place] [address] Chris Asencio DO [address] [facility] [place] [address] Home Health Allergies Active Allergy Reactions Severity [...] 1 Each 5 10/20/2020 Active Dexcom G6 Supervisor Taping DeviceIndications:Typ e 2 diabetes mellitus with stage [...] nephropathy, with long-term current use of insulin ([facility]) CHEW 1 TABLET BY [...] with hemoglobin A1c goal of 7.0%-8.0% ([facility]),Type 2 diabetes mellitus with stage 3a chronic kidney disease, with long-term current use of insulin ([facility]),Type II diabetes mellitus with neurological manifestations ([facility]) Inject 20 Units under [...] 08/06/2022 Active Additional Information Patient taking differently:2 [place] Each NostrilBID(AM/PM), Reported on 12/24/2022 Famotidine 40 [...] Information Patient not taking.Reported on 12/24/2022 Methscopolamine [place] 2.5 MG Oral TabletIndications:Irr itable bowel syndrome [...] 018 Overview: Signed 06/04/2014 Pranav Sanchez MD [facility] Pharmacy [place] Spinal pain 06/04/2014 02/02/2017 Type 2 diabetes [...] mRNA, LNP-s, No Pre serve, 2-Dose Series ([employer]) 09/09/2020,08/19/2020 Pneumococcal Conjugate Vacc, 13 Valent (Prevnar) [...] Contact Type: Information Outcome: mickey Powell from [facility] Home Health calling: Evaluation done and continuation [...] Specialty Care Team Description 12/27/2022 Home Visit [facility] Yvette Hinojosa RN [address] [place] [address] 01/03/2023 Telemedicine [facility] Kristal Vora CRNP [address] [facility] [place] [address] [place], [address] [place] [address] 01/11/2023 Office Visit Family Medicine Ramiro Hitchcock CRNP [address] [place] [address] 01/14/2023 Office Visit Gastroenterology Iris Cerrato PA-C [address] [place] [address] 01/16/2023 Office Visit Gastroenterology Geovanna Bahena CRNP [address] [place] [address] 01/17/2023 Imaging Radiology 01/17/2023 Imaging Radiology 02/15/2023 Office Visit Cardiology Sophy Sands PA-C [address] [place] [address] 02/21/2023 Office Visit Ophthalmology Ernie Rivers, [address] [place] [address] 04/09/2023 Office Visit Family Medicine Chris Asencio DO [address] [place] [address] 04/24/2023 Office Visit Pharmacy [facility] Amira [address] [place] [address] 05/06/2023 Office Visit Nephrology Eric Day MD [address] [place] [address] Scheduled Procedures Name Priority Associated Diagnoses Date/Ti [...] Additional history exists CKD HGB USE SMARTSET 66923 09/07/202309/06, 09/06/2022, 03/19/2022, Additional history exists CKD PHOS USE SMARTSET 99008 09/07/202308/25, 03/01/2022, 03/27/2021, Additional history exists Depression [...] Documents on File Type Date Recorded Patient Fiber Optics Engineer Expl anation POLST 10/20/2021 [place] [facility] [...] the patient have Health Care Power of Acid Changer? No Care Teams Electronic Design Engineer Relationship Specialty Start Date End Date Chris Asencio DO [address] [place] [address] PCP - General Family Medicine 01/07/18 documented as of this encounter
--- OUTSIDE RECORDS SUMMARY | 2023-06-20 00:50 | External Medical Summary | Summary of Care ---
Author Name Unknown Organization [facility] Address [address] [place] [address] Phone [phone] Care Team Providers Care Optical Effects Line Up Person Name Role Phone Joe Asenciomelissa Fabiananay Primary Care Provider Reason for Visit * Reason Onset Date Comments Appointment 12/25/2022 Encounter Details Date Type Department Care Team Description 12/25/2022 Telephone [facility] [place] [address] [place] [address] [phone] Services, Scheduling [address] [place] [address] Appointment (/) Allergies Active Allergy Reactions Severity Noted Date [...] Ondansetron Other (Please comment) 09/06/2020 Pt requesting zoan be placed on allergy list due to [...] 1 Each 5 10/20/2020 Active Dexcom G6 General Operations Agent DeviceIndications:Ty pe 2 diabetes mellitus with [...] insulin ([facility]) CHEW 1 TABLET BY MOUTH [...] hemoglobin A1c goal of 7.0%-8.0% ([facility]),Type 2 diabetes mellitus with stage 3a chronic kidney disease, with long-term current use of insulin ([facility]),Type II diabetes mellitus with neurological manifestations ([facility]) Inject 20 Units under the [...] 08/06/2022 Active Additional Information Patient taking differently:2 [place] Each NostrilBID(AM/PM), Reported on 12/24/2022 Famotidine 40 [...] Information Patient not taking.Reported on 12/24/2022 Methscopolamine [place] 2.5 MG Oral TabletIndications:Ir ritable bowel syndrome [...] exacerbation 10/17/2016 02/02/2017 MEDICATION USE AGREEMENT 06/04/2014 12/2 018 Overview: Signed 06/04/2014 Pranav Sanchez MD [facility] Pharmacy [place] Spinal pain 06/04/2014 02/02/2017 Type 2 [...] mRNA, LNP-s, No Pre serve, 2-Dose Series ([employer]) 09/09/2020,08/19/2020 Pneumococcal Conjugate Vacc, 13 Valent (Prevnar) [...] * Telephone Encounter - KATERIN Cameron - 12/25/2022 10:48 AM EDT [facility] Engagement Attempt Engagement: Engagement Attempt 1: Unable to contact Engagement Attempt 2: Unable to contact Engagement Attempt 3: Contacted - Agreed to home-based services Scheduled appointment information: lalita: 12/27 & AP telemed: 01/03 Home Information: Has pets Advance Care Planning (ACP): No data was found Has Living Will or Advance Directive: Yes - have available for first visit Anticipated Sub-Program: Short-Term Management (less than 3 months) Confirmation of Sub-Program Type (by care service desk team lead): No data was found Handoff Information: Current care team notified via: [employer] communication Current telemonitoring equipment: No data was found documented in this encounter Plan of Treatment Upcoming Encounters Date Type Specialty Care Team Description 01/03/2023 Telemedicine [facility] Kristal Vora CRNP [address] [facility] [place] [address] [place], [address] [place] [address] 01/11/2023 Office Visit Family Medicine Ramiro Hitchcock CRNP [address] [place] [address] 01/14/2023 Office Visit Gastroenterology Iris Cerrato PA-C [address] [place] [address] 01/15/2023 Home Visit [facility] Penny Parikh RN [address] [place] [address] 01/16/2023 Office Visit Gastroenterology Geovanna Bahena CRNP [address] [place] [address] 01/17/2023 Imaging Radiology 01/17/2023 Imaging Radiology 02/15/2023 Office Visit Cardiology Sophy Sands PA-C [address] [place] [address] 02/21/2023 Office Visit Ophthalmology Ernie Rivers DO [address] [place] [address] 04/09/2023 Office Visit Family Medicine Chris Asencio DO [address] [place] [address] 04/24/2023 Office Visit Pharmacy [facility] Amira [address] [place] [address] 05/06/2023 Office Visit Nephrology Eric Day MD [address] [place] [address] Scheduled Procedures Name Priority Associated Diagnoses Date/Ti [...] Additional history exists CKD HGB USE SMARTSET 85838 09/07/202309/06, 09/06/2022, 03/19/2022, Additional history exists CKD PHOS USE SMARTSET 00202 09/07/202308/25, 03/01/2022, 03/27/2021, Additional history exists Depression Screening, Annual for Pts 12 and Over 10/13/2023 10/12/2022 COLONOSCOPY-EVERY 5 YRS AGES 18-100 03/17/2026 03/17/2021, 03/17/2021, 12/07/2014, Additional history exists DTaP,Tdap,and Td Vaccines (3 - Td or Tdap) 04/16/2026 04/16/2016, 04/12/2006 Lipid Panel 09/07/2027 09/06/2022, 1010/2021, 08/23/2021, Additional history exists DXA Scan 08/22/2031 [...] Documents on File Type Date Recorded Patient Hydro Generation Manager Expl anation POLST 10/20/2021 [place] [facility] FOR LIFE-SUSTAINING TREATMENT [...] the patient have Health Care Power of Supervisor Photocomposition? No Care Teams Optical Effects Line Up Person Relationship Specialty Start Date End Date Chris Asencio DO [address] [place] [address] PCP - General Family Medicine 01/07/18 documented as of this encounter
--- OUTSIDE RECORDS SUMMARY | 2023-06-20 00:50 | External Medical Summary | Summary of Care ---
Author Name Unknown Organization [facility] Address [address] [place] [address] Phone [phone] Care Team Providers Care Machine Maintenance Servicer Name Role Phone Chris Asencioanay Primary Care Provider Reason for Visit * Reason Onset Date Comments [facility]: Maintenance 12/27/2022 Encounter Details Date Type Department Care Team Description 12/27/2022 Telephone [facility], [facility] [address] [facility] [place] [address] [facility] Nurse [facility] [address] [facility] [place] [address] [facility]: Maintenance Allergies Active Allergy [...] 1 Each 5 10/20/2020 Active Dexcom G6 Document Preparer Microfilming DeviceIndications:Typ e 2 diabetes mellitus with stage [...] 08/06/2022 Active Additional Information Patient taking differently:2 [place] Each NostrilBID(AM/PM), Reported on 12/24/2022 Famotidine 40 [...] Information Patient not taking.Reported on 12/24/2022 Methscopolamine [place] 2.5 MG Oral TabletIndications:Irr itable bowel syndrome [...] 018 Overview: Signed 06/04/2014 Pranav Sanchez MD [facility] Pharmacy [place] Spinal pain 06/04/2014 02/02/2017 Type 2 diabetes [...] mRNA, LNP-s, No Pre serve, 2-Dose Series ([employer]) 09/09/2020,08/19/2020 Pneumococcal Conjugate Vacc, 13 Valent (Prevnar) [...] encounter Miscellaneous Notes * Telephone Encounter - Desire Bell LPN - 12/27/2022 8:29 AM EDT Voice mail received x's 2 this am confirming todays appt. + swelling in legs. Call to pt and got VM. Left msg confirming appt. documented in this encounter Plan of Treatment Upcoming Encounters Date Type Specialty Care Team Description 12/27/2022 Home Visit [facility] Yvette Hinojosa RN [address] [place] [address] 01/03/2023 Telemedicine [facility] Kristal Vora CRNP [address] [facility] [place] [address] [place] [address] [place] [address] 01/11/2023 Office Visit Family Medicine Ramiro Hitchcock CRNP [address] [place] [address] 01/14/2023 Office Visit Gastroenterology Iris Cerrato PA-C [address] [place] [address] 01/16/2023 Office Visit Gastroenterology Geovanna Bahena CRNP [address] [place] [address] 01/17/2023 Imaging Radiology 01/17/2023 Imaging Radiology 02/15/2023 Office Visit Cardiology Sophy Sands PA-C [address] [place] [address] 02/21/2023 Office Visit Ophthalmology Ernie Rivers DO [address] [place] [id number] 04/09/2023 Office Visit Family Medicine Chris Asencio DO [address] [place] [address] 04/24/2023 Office Visit Pharmacy [facility] [address] [place] [address] 05/06/2023 Office Visit Nephrology Eric Day MD [address] [facility] [place], [place] [address] Scheduled Procedures Name Priority Associated Diagnoses Date/Ti [...] Additional history exists CKD HGB USE SMARTSET 05107 09/07/202309/06, 09/06/2022, 03/19/2022, Additional history exists CKD PHOS USE SMARTSET 21969 09/07/202308/25, 03/01/2022, 03/27/2021, Additional history exists Depression [...] Documents on File Type Date Recorded Patient Yard Hostler Expl anation POLST 10/20/2021 [place] OR [facility] FOR LIFE-SUSTAINING TREATMENT Latest Code Status on File Code Status Date Activated Date Inactivated Comments Full Code 03/30/2022 6:40 AM 03/30/2022 2:12 PM This order reflects the patients wishes and were consensually agreed upon. Question Answer Comments Discussion of Advance Directives occurred with: Patient Does the patient have a Living Will? No Does the patient have Health Care Power of Network Systems Analyst? No Care Teams Machine Maintenance Servicer Relationship Specialty Start Date End Date Chris Asencio DO [address] [place] [address] PCP - General Family Medicine 01/07/18 documented as of this encounter
--- OUTSIDE RECORDS SUMMARY | 2023-06-20 00:50 | External Medical Summary | Summary of Care ---
Author Name Unknown Organization [facility] Address [address] [place] [address] Phone [phone] Care Team Providers Care Industrial Engineering Analyst Name Role Phone Chris Asencio DO Primary Care Provider Reason for Visit * Reason Onset Date Comments Home Health 12/25/2022 Encounter Details Date Type Department Care Team Description 12/25/2022 Telephone Family Practice [facility] [address] [place] [address] Chris Asencio DO [address] [facility] [place] [address] Home Health Allergies Active Allergy Reactions Severity [...] 1 Each 5 10/20/2020 Active Dexcom G6 Funeral Home Location Manager DeviceIndications:Ty pe 2 diabetes mellitus with stage [...] 08/06/2022 Active Additional Information Patient taking differently:2 [place] Each NostrilBID(AM/PM), Reported on 12/24/2022 Famotidine 40 [...] Information Patient not taking.Reported on 12/24/2022 Methscopolamine [place] 2.5 MG Oral TabletIndications:Ir ritable bowel syndrome [...] Overview: Signed 06/04/2014 Pranav Sanchez MD [facility] Pharmacy [place] Spinal pain 06/04/2014 02/02/2017 Type 2 diabetes [...] mRNA, LNP-s, No Pre serve, 2-Dose Series (Jawbone) 09/09/2020,08/19/2020 Pneumococcal Conjugate Vacc, 13 Valent (Prevnar) [...] Telephone Encounter - Kellie Gutierres LPN - 12/25/2022 11:55 AM EDT Provider to address: Chris Asencio DO Reason for Call: Home Health Contact: Telephone Call Contact Type: Information Outcome: Patient requested visit change to tomorrow. Will fax everything over to the office. Total Time including non face to face (minutes): 5 documented in this encounter Plan of Treatment Upcoming Encounters Date Type Specialty Care Team Description 01/03/2023 Telemedicine [facility] Kristal Vora CRNP [address] [place] [address] [place] Dan, Community Health Learning Operations Specialist [address] [place] [address] [place] [address] 01/11/2023 Office Visit Family Medicine Ramiro Hitchcock CRNP [address] [place] [address] 01/14/2023 Office Visit Gastroenterology Iris Cerrato PA-C [address] [place] [address] 01/15/2023 Home Visit [facility] Penny Parikh RN [address] [place] [address] 01/16/2023 Office Visit Gastroenterology Geovanna Bahena CRNP [address] [place] [address] 01/17/2023 Imaging Radiology 01/17/2023 Imaging Radiology 02/15/2023 Office Visit Cardiology Spohy Sands PA-C [address] [place] [address] 02/21/2023 Office Visit Ophthalmology Ernie Rivers DO [address] [place] [address] 04/09/2023 Office Visit Family Medicine Chris Asencio DO [address] [place] [address] 04/24/2023 Office Visit Pharmacy Janet Garza Amira [address] [place] [address] 05/06/2023 Office Visit Nephrology Eric Day MD 200 [facility] [place] [address] Scheduled Procedures Name Priority Associated Diagnoses Date/Ti [...] Additional history exists CKD HGB USE SMARTSET 20448 09/07/202309/06, 09/06/2022, 03/19/2022, Additional history exists CKD PHOS USE SMARTSET 39705 09/07/202308/25, 03/01/2022, 03/27/2021, Additional history exists Depression [...] Documents on File Type Date Recorded Patient Access Registrar Expl anation POLST 10/20/2021 [place] OR [facility] FOR LIFE-SUSTAINING [...] the patient have Health Care Power of Brassiere Cup Mold Cutter? No Care Teams Industrial Engineering Analyst Relationship Specialty Start Date End Date Chris Asencio DO [address] [place] [address] PCP - General Family Medicine 01/07/18 documented as of this encounter
--- OUTSIDE RECORDS SUMMARY | 2023-06-20 00:51 | External Medical Summary | Summary of Care ---
Author Name Unknown Organization [facility] Address [address] [place] [address] Phone [phone] Care Team Providers Care Yarder Name Role Phone Chris Asencio DO Primary Care Provider Reason for Visit * Reason Onset Date Comments Home Health 12/25/2022 Encounter Details Date Type Department Care Team Description 12/25/2022 Telephone Family Practice [facility] [address] [place] [address] Chris Asencio DO [address] [facility] [place] [address] Home Health Allergies Active Allergy Reactions Severity [...] as of this encounter (statuses as of 12/25/2022) Medications Medication Sig Dispensed Refills Start Date [...] 1 Each 5 10/20/2020 Active Dexcom G6 Transit Bus Operator DeviceIndications:Typ e 2 diabetes mellitus with [...] 08/06/2022 Active Additional Information Patient taking differently:2 [place] Each NostrilBID(AM/PM), Reported on 12/24/2022 Famotidine 40 [...] Information Patient not taking.Reported on 12/24/2022 Methscopolamine [place] 2.5 MG Oral TabletIndications:Irr itable bowel syndrome [...] as of this encounter (statuses as of 12/25/2022) Active Problems Problem Noted Date Dyslipidemia, goal [...] as of this encounter (statuses as of 12/25/2022) Resolved Problems Problem Noted Date Resolved Date [...] 018 Overview: Signed 06/04/2014 Pranav Sanchez MD [facility] Pharmacy [place] Spinal pain 06/04/2014 02/02/2017 Type 2 diabetes [...] as of this encounter (statuses as of 12/25/2022) Immunizations Name Administration Dates Next Due COVID-19 mRNA, LNP-s, No Pre serve, 2-Dose Series ([employer] You) 09/09/2020,08/19/2020 Pneumococcal Conjugate Vacc, 13 Valent (Prevnar) [...] [facility] Yvette Hinojosa RN [address] [place] [address] 01/03/2023 Telemedicine [facility] Kristal Vora CRNP [address] [facility] [place] [address] [place] Dan, [address] [place] [address] 01/11/2023 Office Visit Family Medicine Ramiro Hitchcock CRNP [address] [place] [address] 01/14/2023 Office Visit Gastroenterology Iris Cerrato PA-C [address] [place] [address] 01/16/2023 Office Visit Gastroenterology Geovanna Bahena CRNP [address] [place] [address] 01/17/2023 Imaging Radiology 01/17/2023 Imaging Radiology 02/15/2023 Office Visit Cardiology Sophy Sands PA-C [address] [place] [address] 02/21/2023 Office Visit Ophthalmology Ernie Rivers DO [address] [place] [address] 04/09/2023 Office Visit Family Medicine Chris Asencio DO [address] [place] [address] 04/24/2023 Office Visit Pharmacy [facility] Amira [address] [place] [address] 05/06/2023 Office Visit Nephrology Eric Day MD 200 [facility] [place] [address] Scheduled Procedures Name Priority Associated Diagnoses Date/Ti [...] Additional history exists CKD HGB USE SMARTSET 57072 09/07/202309/06, 09/06/2022, 03/19/2022, Additional history exists CKD PHOS USE SMARTSET 10636 09/07/202308/25, 03/01/2022, 03/27/2021, Additional history exists Depression [...] Documents on File Type Date Recorded Patient Auction Block Clerk Expl anation POLST 10/20/2021 [place] OR [facility] FOR LIFE-SUSTAINING [...] patient have Health Care Power of Director Clinical Applications? No Care Teams Yarder Relationship Specialty Start Date End Date Chris Asencio DO [address] [place] [address] PCP - General Family Medicine 01/07/18 documented as of this encounter
--- OUTSIDE RECORDS SUMMARY | 2023-06-20 00:51 | External Medical Summary | Summary of Care ---
Author Name Unknown Organization [facility] Address [address] [facility] [address] Phone [phone] Care Team Providers Care Bow Maker Machine Tender Name Role Phone Chris Asencioanay Primary Care Provider Reason for Visit * Reason Onset Date Comments Encounter Created in Error 12/25/2022 Encounter Details Date Type Department Care Team Description 12/25/2022 Scheduled Telephone [facility], [facility] [address] [facility] [place] [address] Coordinator, [facility] [address] [facility] [place] [address] Allergies Active Allergy Reactions Severity Noted Date [...] 1 Each 5 10/20/2020 Active Dexcom G6 Coagulating Drying Supervisor DeviceIndications:Typ e 2 diabetes mellitus with [...] of insulin ([facility]) CHEW 1 TABLET BY MOUTH [...] hemoglobin A1c goal of 7.0%-8.0% ([facility]),Type 2 diabetes mellitus with stage 3a chronic kidney disease, with long-term current use of insulin ([facility]),Type II diabetes mellitus with neurological manifestations ([facility]) Inject 20 Units under the [...] 08/06/2022 Active Additional Information Patient taking differently:2 [place] Each NostrilBID(AM/PM), Reported on 12/24/2022 Famotidine 40 [...] Information Patient not taking.Reported on 12/24/2022 Methscopolamine [place] 2.5 MG Oral TabletIndications:Irr itable bowel syndrome [...] 018 Overview: Signed 06/04/2014 Pranav Sanchez MD [facility] Pharmacy [place] Spinal pain 06/04/2014 02/02/2017 Type 2 diabetes [...] mRNA, LNP-s, No Pre serve, 2-Dose Series (LUBB-TEX) 09/09/2020,08/19/2020 Pneumococcal Conjugate Vacc, 13 Valent (Prevnar) [...] Telephone Encounter - Evon Martin RN - 12/25/2022 5:27 PM EDT error documented in this encounter Plan of Treatment Upcoming Encounters Date Type Specialty Care Team Description 12/27/2022 Home Visit [facility] Yvette Hinojosa RN 132 [facility] [place] [address] 01/03/2023 Telemedicine [facility] Kristal Vora CRNP [address] [facility] [place] [address] [place] Dan, Community Health [address] [place] [phone] 01/11/2023 Office Visit Family Medicine Ramiro Hitchcock CRNP [address] [place] [address] 01/14/2023 Office Visit Gastroenterology Iris Cerrato PA-C [address] [place] [address] 01/16/2023 Office Visit Gastroenterology Geovanna Bahena CRNP [address] [place] [address] 01/17/2023 Imaging Radiology 01/17/2023 Imaging Radiology 02/15/2023 Office Visit Cardiology Sophy Sands PA-C [address] [place] [address] 02/21/2023 Office Visit Ophthalmology Ernie Rivers DO [address] [place] [address] 04/09/2023 Office Visit Family Medicine Chris Asencio DO [address] [place] [address] 04/24/2023 Office Visit Pharmacy [facility] [address] [place] [address] 05/06/2023 Office Visit Nephrology Eric Day MD 200 [facility] [place] [address] Scheduled Procedures Name Priority Associated Diagnoses Date/Ti [...] Additional history exists CKD HGB USE SMARTSET 64955 09/07/202309/06, 09/06/2022, 03/19/2022, Additional history exists CKD PHOS USE SMARTSET 62413 09/07/202308/25, 03/01/2022, 03/27/2021, Additional history exists Depression [...] Documents on File Type Date Recorded Patient Clinical Rehabilitation Aide Expl anation POLST 10/20/2021 [place] OR [facility] FOR LIFE-SUSTAINING TREATMENT [...] the patient have Health Care Power of Building Services Engineer? No Care Teams Bow Maker Machine Tender Relationship Specialty Start Date End Date Chris Asencio DO [address] [place] [address] PCP - General Family Medicine 01/07/18 documented as of this encounter
--- OUTSIDE RECORDS SUMMARY | 2023-06-20 00:51 | External Medical Summary | Summary of Care ---
Author Name Unknown Organization [facility] Address [address] [place] [address] Phone [phone] Care Team Providers Care Newspaper Distributor Supervisor Name Role Phone Chris Asencio DO Primary Care Provider Reason for Visit * Reason Onset Date Comments Hospital Follow-Up 12/25/2022 Encounter Details Date Type Department Care Team Description 12/25/2022 Telephone General Internal Medicine [facility] [address] [place] [address] Chris Asencio DO [address] [place] [address] Hospital Follow-Up Allergies Active Allergy Reactions Severity [...] 1 Each 5 10/20/2020 Active Dexcom G6 Product Advisor DeviceIndications:Typ e 2 diabetes mellitus with [...] nephropathy, with long-term current use of insulin ([facility]) CHEW 1 TABLET BY MOUTH [...] mellitus with hemoglobin A1c goal of 7.0%-8.0% ([facility]),Type 2 diabetes mellitus with stage 3a chronic kidney disease, with long-term current use of insulin ([facility]),Type II diabetes mellitus with neurological manifestations ([facility]) Inject 20 Units under the [...] 08/06/2022 Active Additional Information Patient taking differently:2 [place] Each NostrilBID(AM/PM), Reported on 12/24/2022 Famotidine 40 [...] Information Patient not taking.Reported on 12/24/2022 Methscopolamine [place] 2.5 MG Oral TabletIndications:Irr itable bowel syndrome [...] 018 Overview: Signed 06/04/2014 Pranav Sanchez MD [facility] Pharmacy [place] Spinal pain 06/04/2014 02/02/2017 Type 2 diabetes [...] mRNA, LNP-s, No Pre serve, 2-Dose Series ([employer]) 09/09/2020,08/19/2020 Pneumococcal Conjugate Vacc, 13 Valent (Prevnar) [...] 12/25/2022 1:05 PM EDT Patient discharged from [facility] on 12/22/22 after treatment for septic shock. Nephrology was consulted for DAVONTE. No recommendations for follow up. Please assess if follow up is needed. Thank you documented in this encounter Plan of Treatment Upcoming Encounters Date Type Specialty Care Team Description 12/27/2022 Home Visit [facility] Yvette Hinojosa RN 132 [facility] [place] [address] 01/03/2023 Telemedicine [facility] Kristal Vora CRNP [address] [facility] [place] [address] [place] Dan, [address] [place] [address] 01/11/2023 Office Visit Family Medicine Ramiro Hitchcock CRNP [address] [place] [address] 01/14/2023 Office Visit Gastroenterology Iris Cerrato PA-C [address] [place] [address] 01/16/2023 Office Visit Gastroenterology Geovanna Bahena CRNP [address] [place] [address] 01/17/2023 Imaging Radiology 01/17/2023 Imaging Radiology 02/15/2023 Office Visit Cardiology Sophy Sands PA-C [address] [place] [address] 02/21/2023 Office Visit Ophthalmology Ernie Rivers DO [address] [place] [address] 04/09/2023 Office Visit Family Medicine Chris Asencio DO [address] [place] [address] 04/24/2023 Office Visit Pharmacy [facility] Amira [address] [place] [address] 05/06/2023 Office Visit Nephrology Eric Day MD 200 [place] [address] Scheduled Procedures Name Priority Associated Diagnoses Date/Ti [...] Additional history exists CKD HGB USE SMARTSET 46505 09/07/202309/06, 09/06/2022, 03/19/2022, Additional history exists CKD PHOS USE SMARTSET 27403 09/07/202308/25, 03/01/2022, 03/27/2021, Additional history exists Depression [...] Documents on File Type Date Recorded Patient Pearl Cutter Expl anation POLST 10/20/2021 [place] OR [facility] FOR [...] the patient have Health Care Power of Cadmium Burner? No Care Teams Newspaper Distributor Supervisor Relationship Specialty Start Date End Date Chris Asencio DO [address] [place] [address] PCP - General Family Medicine 01/07/18 documented as of this encounter
--- OUTSIDE RECORDS SUMMARY | 2023-06-20 00:52 | External Medical Summary | Summary of Care ---
Author Name Unknown Organization [facility] Address [address] [place] [address] Phone [phone] Care Team Providers Care Dials Supervisor Name Role Phone Chris Asencio Primary Care Provider Reason for Visit * Reason Onset Date Comments [facility] Care Coordination Services 12/24/2022 Encounter Details Date Type Department Care Team Description 12/24/2022 Telephone Care Coordination [address] [place] [address] Tracey Davis, Community Health Brimmer Blocker [address] [place], [place] [id number] [facility] Care Coordination Services Allergies Active [...] as of this encounter (statuses as of 12/24/2022) Medications Medication Sig Dispensed Refills Start Date [...] 1 Each 5 10/20/2020 Active Dexcom G6 Scudding Inspector DeviceIndications:Typ e 2 diabetes mellitus with stage [...] 08/06/2022 Active Additional Information Patient taking differently:2 [place] Each NostrilBID(AM/PM), Reported on 12/24/2022 Famotidine 40 [...] Information Patient not taking.Reported on 12/24/2022 Methscopolamine [place] 2.5 MG Oral TabletIndications:Irr itable bowel syndrome [...] as needed 30 g 0 11/28/2022 Active Hospital, Clinic, or Other Facility Administered Medication Ordered Dose Route Frequency Start Date End Date Status albuterol sulfate (PROVENTIL) (2.5 MG/3ML) 0.083% inhalation solution 2.5 mgIndications:Moderate persistent asthma without complication 2.5 mg NEBULIZER Q4H PRN 08/13/2018 Active documented as of this encounter (statuses as of 12/24/2022) Active Problems Problem Noted Date Dyslipidemia, goal [...] as of this encounter (statuses as of 12/24/2022) Resolved Problems Problem Noted Date Resolved Date [...] 018 Overview: Signed 06/04/2014 Pranav Sanchez MD [facility] Pharmacy [place] Spinal pain 06/04/2014 02/02/2017 Type 2 diabetes [...] as of this encounter (statuses as of 12/24/2022) Immunizations Name Administration Dates Next Due COVID-19 [...] 4:45 PM EDT Call to pt at home#[phone] no answer left VM requesting a return call to [facility] at [phone] opt#3 Call to no answer left VM and return number as above Call to pt's contact son Polo at [phone] recoding states call can not be completed as dialed. * Telephone Encounter - Marlee Escobar RN - 12/24/2022 3:54 PM EDT Spoke with patient at office visit, she prefers to follow with [facility] services. Made aware they will be reaching out to her. * Telephone Encounter - Tracey Davis, Community Health Brimmer Blocker - 12/24/2022 12:03 PM EDT CAMERON-A: - This patient alerted in IVR (Direct to IVR enrollment?) for waiting for contact from home health,unsteadiness/dizziness when walking at home, help caring for self and request call from nurse. - CAMERON-A contacted CM via Teams with above information. As per CM, will disenroll from IVR and CM will re-enroll if needed. - Patient has appointment at [facility] PCP today and CM will attempt to talk to patient and willfollow up. Tracey Davis, BS CAMERON-A [phone] documented in this encounter Plan of Treatment Upcoming Encounters Date Type Specialty Care Team Description 12/25/2022 Scheduled Telephone [facility] Coordinator, [facility] [address] [place] [address] 12/25/2022 Office Visit Nephrology Vivienne Mitchell [facility]C [facility] [address] 01/11/2023 Office Visit Family Medicine Ramiro Hitchcock CRNP [address] [place] [address] 01/14/2023 Office Visit Gastroenterology Iris Cerrato PA-C [address] [place] [address] 01/16/2023 Office Visit Gastroenterology Geovanna Bahena CRNP [address] [place] [address] 01/17/2023 Imaging Radiology 01/17/2023 Imaging Radiology 02/15/2023 Office Visit Cardiology Sophy Sands PA-C [address] [place] [address] 02/21/2023 Office Visit Ophthalmology Ernie Rivers DO [address] [place] [address] 04/09/2023 Office Visit Family Medicine Chris Asencio DO [address] [place] [address] 04/24/2023 Office Visit Pharmacy [facility] Amira [address] [place] [address] Scheduled Procedures Name Priority Associated Diagnoses Date/Ti [...] Additional history exists CKD HGB USE SMARTSET 53284 09/07/202309/06, 09/06/2022, 03/19/2022, Additional history exists CKD PHOS USE SMARTSET 72609 09/07/202308/25, 03/01/2022, 03/27/2021, Additional history exists Depression [...] Documents on File Type Date Recorded Patient Executive Legal Secretary Expl anation POLST 10/20/2021 [place] OR [facility] FOR LIFE-SUSTAINING [...] the patient have Health Care Power of Orthopedic Nurse? No Care Teams Dials Supervisor Relationship Specialty Start Date End Date Chris Asencio DO [address] [place] [address] PCP - General Family Medicine 01/07/18 documented as of this encounter
--- OUTSIDE RECORDS SUMMARY | 2023-06-20 00:52 | External Medical Summary | Summary of Care ---
Author Name Unknown Organization [facility] Address [address] [place] [address] Phone [phone] Care Team Providers Care Expert Medical Writer Name Role Phone Joe Asenciomelissa Fabiananay Primary Care Provider Reason for Visit * Reason Onset Date Comments Appointment 12/25/2022 Encounter Details Date Type Department Care Team Description 12/25/2022 Telephone [facility], [place] [address] [place] [phone] Services, Scheduling [address] [place] [address] Appointment (/) Allergies Active Allergy Reactions Severity [...] 1 Each 5 10/20/2020 Active Dexcom G6 Cut Off Tender Glass DeviceIndications:Typ e 2 diabetes mellitus with stage [...] nephropathy, with long-term current use of insulin ([facility]) CHEW 1 TABLET BY MOUTH EVERY DAY [...] mellitus with hemoglobin A1c goal of 7.0%-8.0% ([facility]),Type 2 diabetes mellitus with stage 3a chronic kidney disease, with long-term current use of insulin ([facility]),Type II diabetes mellitus with neurological manifestations ([facility]) Inject 20 Units under the skin in [...] 08/06/2022 Active Additional Information Patient taking differently:2 [place] Each NostrilBID(AM/PM), Reported on 12/24/2022 Famotidine 40 [...] Information Patient not taking.Reported on 12/24/2022 Methscopolamine [place] 2.5 MG Oral TabletIndications:Irr itable bowel syndrome [...] 018 Overview: Signed 06/04/2014 Pranav Sanchez MD [facility] Pharmacy [place] Spinal pain 06/04/2014 02/02/2017 Type 2 diabetes [...] months) Confirmation of Sub-Program Type (by care donor services team leader): No data was found Handoff Information: Current care team notified via: Epic communication Current telemonitoring equipment: No data was found documented in this encounter Plan of Treatment Upcoming Encounters Date Type Specialty Care Team Description 12/27/2022 Home Visit [facility] Yvette Hinojosa RN [address] [place] [address] 01/03/2023 Telemedicine [facility] Kristal Vora CRNP [address] [facility] [place] [address] [place], [address] [place] [address] 01/11/2023 Office Visit Family Medicine Ramiro Hitchcock CRNP [address] [place] [address] 01/14/2023 Office Visit Gastroenterology Iris Cerrato PA-C [address] [place] [address] 01/16/2023 Office Visit Gastroenterology Geovanna Bahena CRNP [address] [place] [address] 01/17/2023 Imaging Radiology 01/17/2023 Imaging Radiology 02/15/2023 Office Visit Cardiology Sophy Sands PA-C [address] [place] [address] 02/21/2023 Office Visit Ophthalmology Ernie Rivers, [address] [place] [address] 04/09/2023 Office Visit Family Medicine Chris Asencio DO [address] [place] [address] 04/24/2023 Office Visit Pharmacy [facility] Amira [address] [place] [address] 05/06/2023 Office Visit Nephrology Eric Day MD 200 [place] [address] Scheduled Procedures Name Priority Associated Diagnoses Date/Ti [...] Additional history exists CKD HGB USE SMARTSET 89284 09/07/202309/06, 09/06/2022, 03/19/2022, Additional history exists CKD PHOS USE SMARTSET 54689 09/07/202308/25, 03/01/2022, 03/27/2021, Additional history exists Depression [...] Documents on File Type Date Recorded Patient Psychiatric Lpn Expl anation POLST 10/20/2021 [place] OR [facility] FOR [...] the patient have Health Care Power of Logistics Lead? No Care Teams Expert Medical Writer Relationship Specialty Start Date End Date Chris Asencio DO [address] [place] [address] PCP - General Family Medicine 01/07/18 documented as of this encounter
--- OUTSIDE RECORDS SUMMARY | 2023-06-20 00:52 | External Medical Summary | Summary of Care ---
Author Name Unknown Organization [facility] Address [address] [place] [address] Phone [phone] Care Team Providers Care Cuff Setter Overlock Name Role Phone Chris Asencio Primary Care Provider Reason for Visit * Reason Onset Date Comments [facility] Care Coordination Services 12/24/2022 Encounter Details Date Type Department Care Team Description 12/24/2022 Telephone Care Coordination [address] [place] [address] Tracey Davis, Community Health Office Support Associate [address] [place], [place] [id number] [facility] Care Coordination Services Allergies Active Allergy Reactions [...] 1 Each 5 10/20/2020 Active Dexcom G6 Life Sciences Manager DeviceIndications:Typ e 2 diabetes mellitus with [...] 08/06/2022 Active Additional Information Patient taking differently:2 [place] Each NostrilBID(AM/PM), Reported on 12/24/2022 Famotidine 40 [...] Information Patient not taking.Reported on 12/24/2022 Methscopolamine [place] 2.5 MG Oral TabletIndications:Irr itable bowel syndrome [...] Signed 06/04/2014 Pranav Sanchez MD [facility] Pharmacy [place] Spinal pain 06/04/2014 02/02/2017 Type 2 diabetes [...] 4:45 PM EDT Call to pt at home#[phone] no answer left VM requesting a return call to [facility] at [phone] opt#3 Call to no answer left VM and return number as above Call to pt's contact son Polo at [phone] recoding states call can not be completed as dialed. * Telephone Encounter - Marlee Escobar RN - 12/24/2022 3:54 PM EDT Spoke with patient at office visit, she prefers to follow with G@H services. Made aware they will be reaching out to her. * Telephone Encounter - Tracey Davis, Community Health Office Support Associate - 12/24/2022 12:03 PM EDT CAMERON-A: - This patient alerted in IVR (Direct to IVR enrollment?) for waiting for contact from home health,unsteadiness/dizziness when walking at home, help caring for self and request call from nurse. - CAMERON-A contacted CM via Teams with above information. As per CM, will disenroll from IVR and CM will re-enroll if needed. - Patient has appointment at [facility] PCP today and CM will attempt to talk to patient and willfollow up. Tracey Davis, BS CAMERON-A [phone] documented in this encounter Plan of Treatment Upcoming Encounters Date Type Specialty Care Team Description 12/25/2022 Scheduled Telephone [facility] Ethanol Maintenance Mechanic, [facility] [address] [place] [address] 12/25/2022 Office Visit [facility]phrology [facility] [address] 01/11/2023 Office Visit Family Medicine Ramiro Hitchcock CRNP [address] [place] [address] 01/14/2023 Office Visit Gastroenterology Iris Cerrato PA-C [address] [place] [address] 01/16/2023 Office Visit Gastroenterology Geovanna Bahena CRNP [address] [place] [address] 01/17/2023 Imaging Radiology 01/17/2023 Imaging Radiology 02/15/2023 Office Visit Cardiology Sophy Sands PA-C [address] [place] [address] 02/21/2023 Office Visit Ophthalmology Ernie Rivers DO [address] [facility] [place] [address] 04/09/2023 Office Visit Family Medicine Chris Asencio DO [address] [place] [address] 04/24/2023 Office Visit Pharmacy [facility] Amira [address] [place] [address] Scheduled Procedures Name Priority Associated Diagnoses Date/Ti [...] Additional history exists CKD HGB USE SMARTSET 93588 09/07/202309/06, 09/06/2022, 03/19/2022, Additional history exists CKD PHOS USE SMARTSET 22410 09/07/202308/25, 03/01/2022, 03/27/2021, Additional history exists Depression [...] Documents on File Type Date Recorded Patient Pvc Loader Expl anation POLST 10/20/2021 [place] OR [facility] FOR LIFE-SUSTAINING [...] the patient have Health Care Power of Oilseed Meat Presser? No Care Teams Cuff Setter Overlock Relationship Specialty Start Date End Date Chris Asencio DO [address] [place] [address] PCP - General Family Medicine 01/07/18 documented as of this encounter
--- OUTSIDE RECORDS SUMMARY | 2023-06-20 00:52 | External Medical Summary | Summary of Care ---
Author Name Unknown Organization [facility] Address [address] [place] [address] Phone [phone] Care Team Providers Care Maintenance Machinist Name Role Phone Chris Asencioanay Primary Care Provider Reason for Visit * Reason Onset Date Comments [facility]: Engagement 12/24/2022 Encounter Details Date Type Department Care Team Description 12/24/2022 Scheduled Telephone [facility], [facility] [address] [facility] [place] [address] Coordinator, [facility] [address] [facility] [place] [address] Allergies Active Allergy Reactions Severity Noted Date [...] 1 Each 5 10/20/2020 Active Dexcom G6 Digital Media Representative DeviceIndications:Typ e 2 diabetes mellitus with [...] 08/06/2022 Active Additional Information Patient taking differently:2 [place] Each NostrilBID(AM/PM), Reported on 12/24/2022 Famotidine 40 [...] Information Patient not taking.Reported on 12/24/2022 Methscopolamine [place] 2.5 MG Oral TabletIndications:Irr itable bowel syndrome [...] 018 Overview: Signed 06/04/2014 Pranav Sanchez MD [facility] Pharmacy [place] Spinal pain 06/04/2014 02/02/2017 Type 2 diabetes [...] mRNA, LNP-s, No Pre serve, 2-Dose Series ([employer]) 09/09/2020,08/19/2020 Pneumococcal Conjugate Vacc, 13 Valent (Prevnar) [...] Encounter - Kayli Cool LPN - 12/24/2022 4:49 PM EDT [facility] Engagement Attempt Engagement: Engagement Attempt 1: Unable to contact Engagement Attempt 2: Unable to contact Call to pt at home#[phone] no answer left VM requesting a return call to [facility] at [phone] opt#3 Call to no answer left VM and return number as above Call to pt's contact son Polo at [phone] recoding states call can not be completed as dialed. Engagement Attempt 3: No data was found Home Information: No data was found Advance Care Planning (ACP): No data was found Has Living Will or Advance Directive: No data was found Anticipated Sub-Program: Short-Term Management (less than 3 months) Confirmation of Sub-Program Type (by care produce team member): No data was found Handoff Information: Current care team notified via: [email or web address] communication Current telemonitoring equipment: No data was found documented in this encounter Plan of Treatment Upcoming Encounters Date Type Specialty Care Team Description 12/25/2022 Scheduled Telephone [facility] Shield Operator, [facility] [address] [place] [address] 12/25/2022 Office Visit Nephrology Vivienne Mitchell PA-C [address] [facility], [place] [address] 01/11/2023 Office Visit Family Medicine Ramiro Hitchcock CRNP [address] [place] [address] 01/14/2023 Office Visit Gastroenterology Iris Cerrato PA-C [address] [place] [address] 01/16/2023 Office Visit Gastroenterology Geovanna Bahena CRNP [address] [place] [address] 01/17/2023 Imaging Radiology 01/17/2023 Imaging Radiology 02/15/2023 Office Visit Cardiology Sophy Sands PA-C [address] [place] [address] 02/21/2023 Office Visit Ophthalmology Ernie Rivers, DO [address] [place] [address] 04/09/2023 Office Visit Family Medicine Chris Asencio DO [address] [place] [address] 04/24/2023 Office Visit Pharmacy [facility] Amira [address] [facility] [place] [address] Scheduled Procedures Name Priority Associated Diagnoses Date/Ti [...] Additional history exists CKD HGB USE SMARTSET 14569 09/07/202309/06, 09/06/2022, 03/19/2022, Additional history exists CKD PHOS USE SMARTSET 36566 09/07/202308/25, 03/01/2022, 03/27/2021, Additional history exists Depression [...] Documents on File Type Date Recorded Patient Front Office Manager Expl anation POLST 10/20/2021 [place] OR [facility] FOR LIFE-SUSTAINING TREATMENT [...] the patient have Health Care Power of Construction Area Manager? No Care Teams Maintenance Machinist Relationship Specialty Start Date End Date Chris Asencio DO [address] [place] [address] PCP - General Family Medicine 01/07/18 documented as of this encounter
--- OUTSIDE RECORDS SUMMARY | 2023-06-20 00:53 | External Medical Summary | Summary of Care ---
Author Name Unknown Organization [facility] [address] [facility] [address] Phone [phone] Care Team Providers Care Cementing Machine Operator Name Role Phone Asencio Chris Fabiananay Primary Care Provider Reason for Visit * Reason Onset Date Comments [facility]: Screening 12/17/2022 [facility]: Engagement 12/17/2022 Encounter Details Date Type Department Care Team Description 12/17/2022 Telephone [facility], [facility] [address] [facility] [place] [address] [facility], Nurse [facility] [address] [facility] [place] [address] [facility]: Screening; [facility]... Allergies Active Allergy Reactions Severity Noted Date [...] Active Additional Information Patient not taking.Reported on 09/06/2022 AMBULATORY MISCELLANEOUS MEDICATION ILERA "DREAM". Tincture: 8 parts THC:1 part CBD Patient takes 1 full dropper under tongue every night at bedtime 0 Active clonazePAM 0.5 MG Oral Tablet Take 1 Tablet by mouth in the morning and 1 Tablet at noon and 1 Tablet before bedtime. 0 Active Doxepin HCl 100 MG Oral [...] 1 Each 5 10/20/2020 Active Dexcom G6 [place] Planning Manager DeviceIndications:Typ e 2 diabetes mellitus with [...] (90 Base) MCG/ACT Inhalation Aerosol Solution Inhale by mouth . As needed 0 Active Acetaminophen ER 650 [...] EVERY DAY 90 Capsule 3 01/20/2022 Active Diclofenac Sodium 1 % External Gel (Voltaren) PLACE 4 GRAMS TOPICALLY ON THE SKIN TWICE DAILY TO AFFECTED AREAS DIRECTED 300 g 4 03/15/2022 Active Atorvastatin Calcium 40 MG Oral Tablet [...] THE MORNING. 48 mL 2 08/06/2022 Active Famotidine 40 MG Oral Tablet (Pepcid) [...] a week. 9 mL 3 10/24/2022 Active Methscopolamine [place] 2.5 MG Oral TabletIndications:Irr itable bowel syndrome [...] Unspecified mood (affective) disorder Panic disorder 08/22/2021 AKRI (generalized anxiety disorder) 10/14 PVC's (premature ventricular [...] 018 Overview: Signed 06/04/2014 Pranav Sanchez MD [facility] Pharmacy [place] Spinal pain 06/04/2014 02/02/2017 Type 2 diabetes [...] encounter Miscellaneous Notes * Telephone Encounter - Sandy Resendez [facility] 911 Dispatcher - 12/24/2022 9:33 AM EDT [facility] Enrollment Form Screening: Referral Source: [facility] Primary Reason for Referral (Select most relevant): No data was found Engagement: Engagement Attempt 1: Unable to contact Engagement Attempt 2: No data was found Home Information: No data was found Advance Care Planning (ACP): No data was found Has Living Will or Advance Directive: No data was found Anticipated Sub-Program: Short-Term Management (less than 3 months) Confirmation of Sub-Program Type (by care security team lead): No data was found Handoff Information: Current care team notified via: devsisters communication Current telemonitoring equipment: No data was found UTC#1 Left voicemail for patient if she returns phone call can offer 12/25/2022 @ 1:00 pm Penny ABDULLAHI 01/02/2023 @ 2:00 pm. Video Visit Luis M/KATERIN Owens * Telephone Encounter - Shalini Mi LPN - 12/17/2022 11:32 AM EDT Liane Alejandre was referred as a potential candidate for enrollment for [facility]. A review of this chart was completed and: Liane meets criteria for [facility]. Jump to Episodes of Care to create Episode and document smartforms Referring care team was notified via: devsisters communication and [place] [facility] documented in this encounter Plan of Treatment Upcoming Encounters Date Type Specialty Care Team Description 12/24/2022 Office Visit Family Medicine Ramiro Hitchcock CRNP [address] [place] [address] 12/25/2022 Scheduled Telephone [facility] Camper Assembler, [facility] [address] [place] [address] 12/25/2022 Office Visit Nephrology Vivienne Mitchell PA-C [address] [facility] [address] 01/14/2023 Office Visit Gastroenterology Iris Cerrato PA-C [address] [place] [address] 01/16/2023 Office Visit Gastroenterology Geovanna Bahena CRNP [address] [place] [address] 01/17/2023 Imaging Radiology 01/17/2023 Imaging Radiology 02/15/2023 Office Visit Cardiology Sophy Sands PA-C [address] [place] [address] 02/21/2023 Office Visit Ophthalmology Ernie Rivers, DO [address] [place] [address] 04/09/2023 Office Visit Family Medicine Chris Asencio DO [address] [place] [address] 04/24/2023 Office Visit Pharmacy [facility] [address] [place] [address] Scheduled Procedures Name Priority Associated Diagnoses Date/Ti [...] Additional history exists CKD HGB USE SMARTSET 67809 09/07/202309/06, 09/06/2022, 03/19/2022, Additional history exists CKD PHOS USE SMARTSET 68131 09/07/202308/25, 03/01/2022, 03/27/2021, Additional history exists Depression [...] Documents on File Type Date Recorded Patient Box Shook Patcher Expl anation POLST 10/20/2021 [place] OR [facility] FOR LIFE-SUSTAINING TREATMENT Latest Code Status on File Code Status Date Activated Date Inactivated Comments Full Code 03/30/2022 6:40 AM 03/30/2022 2:12 PM This order reflects the patients wishes and were consensually agreed upon. Question Answer Comments Discussion of Advance Directives occurred with: Patient Does the patient have a Living Will? No Does the patient have Health Care Power of Epic Trainer? No Care Teams Cementing Machine Operator Relationship Specialty Start Date End Date Chris Asencio DO [address] [place] [address] PCP - General Family Medicine 01/07/18 documented as of this encounter
--- OUTSIDE RECORDS SUMMARY | 2023-06-20 00:53 | External Medical Summary | Summary of Care ---
Author Name Unknown Organization [facility] Address [address] [place] [address] Phone [phone] Care Team Providers Care Reexaminer Name Role Phone Chris Asencio Primary Care Provider Reason for Visit * Reason Onset Date Comments [facility] Care Coordination Services 12/24/2022 Encounter Details Date Type Department Care Team Description 12/24/2022 Telephone Care Coordination [address] [place] [address] Tracey Davis, Community Health Slurry Control Operator Helper [address] [place], [place] [id number] [facility] Care Coordination Services Allergies Active [...] Each 5 10/20/2020 Active Dexcom G6 Staff Certified Nurse Midwife DeviceIndications:Typ e 2 diabetes mellitus with stage [...] with long-term current use of insulin ([facility]) CHEW 1 TABLET BY MOUTH [...] with hemoglobin A1c goal of 7.0%-8.0% ([facility]),Type 2 diabetes mellitus with stage 3a chronic kidney disease, with long-term current use of insulin ([facility]),Type II diabetes mellitus with neurological manifestations ([facility]) Inject 20 Units under the [...] 08/06/2022 Active Additional Information Patient taking differently:2 [place] Each NostrilBID(AM/PM), Reported on 12/24/2022 Famotidine 40 [...] Information Patient not taking.Reported on 12/24/2022 Methscopolamine [place] 2.5 MG Oral TabletIndications:Irr itable bowel syndrome [...] 018 Overview: Signed 06/04/2014 Pranav Sanchez MD [facility] Pharmacy [place] Spinal pain 06/04/2014 02/02/2017 Type 2 diabetes [...] encounter Miscellaneous Notes * Telephone Encounter - Marlee Escobar RN - 12/24/2022 3:54 PM EDT Spoke with patient at office visit, she prefers to follow with G@H services. Made aware they will be reaching out to her. * Telephone Encounter - [facility] Slurry Control Operator Helper - 12/24/2022 12:03 PM EDT CAMERON-A: - This patient alerted in IVR (Direct to IVR enrollment?) for waiting for contact from home health,unsteadiness/dizziness when walking at home, help caring for self and request call from nurse. - CAMERON-A contacted CM via Teams with above information. As per CM, will disenroll from IVR and CM will re-enroll if needed. - Patient has appointment at [facility] PCP today and CM will attempt to talk to patient and willfollow up. MERRY Sanchez CAMERON-A [phone] documented in this encounter Plan of Treatment Upcoming Encounters Date Type Specialty Care Team Description 12/25/2022 Scheduled Telephone [facility] Automotive Mechanic, [address] [place] [address] 12/25/2022 Office Visit Nephrology Vivienne Mitchell PA-C [address] [facility] [address] 01/14/2023 Office Visit Gastroenterology Iris Cerrato PA-C [address] [place] [address] 01/16/2023 Office Visit Gastroenterology Geovanna Bahena CRNP [address] [place] [address] 01/17/2023 Imaging Radiology 01/17/2023 Imaging Radiology 02/15/2023 Office Visit Cardiology Sophy Sands PA-C [address] [place] [address] 02/21/2023 Office Visit Ophthalmology Ernie Rivers DO [address] [place] [address] 04/09/2023 Office Visit Family Medicine Chris Asencio DO [address] [place] [address] 04/24/2023 Office Visit [facility] [address] [place] [address] Scheduled Procedures Name Priority Associated Diagnoses Date/Ti [...] Additional history exists CKD HGB USE SMARTSET 65587 09/07/202309/06, 09/06/2022, 03/19/2022, Additional history exists CKD PHOS USE SMARTSET 29693 09/07/202308/25, 03/01/2022, 03/27/2021, Additional history exists Depression [...] Documents on File Type Date Recorded Patient Advertising Clerk Expl anation POLST 10/20/2021 [place] OR [facility] FOR LIFE-SUSTAINING TREATMENT Latest Code Status on File Code Status Date Activated Date Inactivated Comments Full Code 03/30/2022 6:40 AM 03/30/2022 2:12 PM This order reflects the patients wishes and were consensually agreed upon. Question Answer Comments Discussion of Advance Directives occurred with: Patient Does the patient have a Living Will? No Does the patient have Health Care Power of Employee Communications Manager? No Care Teams Reexaminer Relationship Specialty Start Date End Date Chris Asencio DO [address] [place] [address] PCP - General Family Medicine 01/07/18 documented as of this encounter
--- OUTSIDE RECORDS SUMMARY | 2023-06-20 00:53 | External Medical Summary | Summary of Care ---
Author Name Unknown Organization [facility] Address [address] [place] [address] Phone [phone] Care Team Providers Care Scalp Treatment Specialist Name Role Phone Chris Asencio Primary Care Provider Reason for Visit * Reason Onset Date Comments [facility] Care Coordination Services 12/24/2022 Encounter Details Date Type Department Care Team Description 12/24/2022 Telephone Care Coordination [address] [place] [address] Tracey Davis, Community Health Forestry Worker [address] [place], [place] [phone] [facility] Care Coordination Services Allergies Active Allergy [...] 1 Each 5 10/20/2020 Active Dexcom G6 Shipping Support Clerk DeviceIndications:Typ e 2 diabetes mellitus with [...] nephropathy, with long-term current use of insulin ([facility]) CHEW 1 TABLET BY MOUTH [...] mellitus with hemoglobin A1c goal of 7.0%-8.0% ([facility]),Type 2 diabetes mellitus with stage 3a chronic kidney disease, with long-term current use of insulin ([facility]),Type II diabetes mellitus with neurological manifestations ([facility]) Inject 20 Units under the [...] week. 9 mL 3 10/24/2022 Active Methscopolamine [place] 2.5 MG Oral TabletIndications:Irr itable bowel [...] Overview: Signed 06/04/2014 Pranav Sanchez MD [facility] Pharmacy [place] Spinal pain 06/04/2014 02/02/2017 Type 2 diabetes [...] encounter Miscellaneous Notes * Telephone Encounter - Tracey Davis [facility] Health Forestry Worker - 12/24/2022 12:03 PM EDT CAMERON-A: - This patient alerted in IVR (Direct to IVR enrollment?) for waiting for contact from home health,unsteadiness/dizziness when walking at home, help caring for self and request call from nurse. - CAMERON-A contacted CM via Teams with above information. As per CM, will disenroll from IVR and CM will re-enroll if needed. - Patient has appointment at [facility] PCP today and CM will attempt to talk to patient and willfollow up. MERRY Sanchez CAMERON-A [phone] Electronically signed by Tracey Davis [facility] Health Forestry Worker at 12/24/2022 12:04 PM EDT documented in this encounter Plan of Treatment Upcoming Encounters Date Type Specialty Care Team Description 12/24/2022 Office Visit Family Medicine Ramiro Hitchcock CRNP [address] [place] [address] 12/25/2022 Scheduled Telephone [facility] Prism Measurer, Elena Mays [facility] [address] [place] [address] 12/25/2022 Office Visit Nephrology Vivienne Mitchell PA-C [address] [place] [address] 01/14/2023 Office Visit Gastroenterology Iris Cerrato PA-C [address] [place] [address] 01/16/2023 Office Visit Gastroenterology Geovanna Bahena CRNP [address] [place] [address] 01/17/2023 Imaging Radiology 01/17/2023 Imaging Radiology 02/15/2023 Office Visit Cardiology Sophy Sands PA-C [address] [place] [address] 02/21/2023 Office Visit Ophthalmology Ernie Rivers, DO [address] [place] [address] 04/09/2023 Office Visit Family Medicine Chris Asencio DO [address] [place] [address] 04/24/2023 Office Visit Pharmacy [facility] [address] [place] [address] Scheduled Procedures Name Priority Associated Diagnoses Date/Ti [...] Additional history exists CKD HGB USE SMARTSET 34195 09/07/202309/06, 09/06/2022, 03/19/2022, Additional history exists CKD PHOS USE SMARTSET 03039 09/07/202308/25, 03/01/2022, 03/27/2021, Additional history exists Depression [...] Documents on File Type Date Recorded Patient Seed Tester Expl anation POLST 10/20/2021 [place] OR [facility] FOR LIFE-SUSTAINING [...] the patient have Health Care Power of Cardiopulmonary Supervisor? No Care Teams Scalp Treatment Specialist Relationship Specialty Start Date End Date Chris Asencio DO [address] [place] [address] PCP - General Family Medicine 01/07/18 documented as of this encounter
--- OUTSIDE RECORDS SUMMARY | 2023-06-20 00:53 | External Medical Summary | Summary of Care ---
Author Name Unknown Organization [facility] Address [address] [place] [address] Phone [phone] Care Team Providers Care Adjunct Philosophy Faculty Name Role Phone Chris Asencioanay Primary Care Provider Reason for Visit * Reason Onset Date Comments Advice 12/17/2022 Encounter Details Date Type Department Care Team Description 12/17/2022 Telephone Gastroenterology, [facility] [address] [place] [address] Jennifer Mora DO [address] [place] [address] Advice Allergies Active Allergy Reactions Severity Noted [...] 1 Each 5 10/20/2020 Active Dexcom G6 Stitcher Tape Controlled Machine DeviceIndications:Typ e 2 diabetes mellitus with stage [...] long-term current use of insulin ([facility]) CHEW 1 TABLET BY MOUTH [...] hemoglobin A1c goal of 7.0%-8.0% ([facility]),Type 2 diabetes mellitus with stage 3a chronic kidney disease, with long-term current use of insulin ([facility]),Type II diabetes mellitus with neurological manifestations ([facility]) Inject 20 Units under the [...] week. 9 mL 3 10/24/2022 Active Methscopolamine [place] 2.5 MG Oral TabletIndications:Irr itable bowel syndrome [...] Pranav Sanchez MD [facility] [place] Spinal pain 06/04/2014 02/02/2017 Type 2 diabetes [...] Obesity Taxonomy HTN, GOAL BELOW 130/80 06/22/2009 08/23/201 2 Overview: Per HTN Taxonomy. Dyslipidemia 05/11/2009 [...] Miscellaneous Notes * Telephone Encounter - KATERIN Irving - 12/24/2022 11:24 AM EDT Pt received letter about procedure, she can not do it, she was in hosp for 15 days w/renal ailure and wants to hold off for now * Telephone Encounter - KATERIN Yang - 12/17/2022 3:10 PM EDT Pt returned call stating she wants to wait until she her treatment is completed for her stomach infection before she has a colonoscopy. She states she will call back when her treatment is completed. * Telephone Encounter - KATERIN Milan - 12/17/2022 2:24 PM EDT LMOM for pt to call back to schedule * Telephone Encounter - Jennifer Mora DO - 12/17/2022 11:55 AM EDT This patient was seen in consultation for question of diarrhea and a longstanding history of anemiathought related to renal failure. Given her history we are planning to do a repeat colonoscopy overthe next few months. The patient will need a 2-day bowel preparation as she had a poor bowel prep in 2020. documented in this encounter Plan of Treatment Upcoming Encounters Date Type Specialty Care Team Description 12/24/2022 Office Visit Family Medicine Ramiro Hitchcock CRNP [address] [place] [address] 12/25/2022 Scheduled Telephone [facility] at Logistics Analyst, [facility] [address] [place] [id number] 12/25/2022 Office Visit Nephrology Vivienne Mitchell PA-C [address] [facility], [place] [address] 01/14/2023 Office Visit Gastroenterology Iris Cerrato PA-C [address] [place] [address] 01/16/2023 Office Visit Gastroenterology Geovanna Bahena CRNP [address] [place] [address] 01/17/2023 Imaging Radiology 01/17/2023 Imaging Radiology 02/15/2023 Office Visit Cardiology Sophy Sands PA-C [address] [place] [address] 02/21/2023 Office Visit Ophthalmology Ernie Rivers, DO [address] [facility] [place] [address] 04/09/2023 Office Visit Family Medicine Chris Asencio DO [address] [place] [address] 04/24/2023 Office Visit [facility] [address] [place] [address] Scheduled Orders Name Type Priority Associated Diagnoses Orde r Schedule COLONOSCOPY Gastro Lower Routine Chronic diarrhea Ordered: 12/17/2022 Scheduled Procedures Name Priority Associated Diagnoses Date/Ti [...] Additional history exists CKD HGB USE SMARTSET 62177 09/07/202309/06, 09/06/2022, 03/19/2022, Additional history exists CKD PHOS USE SMARTSET 18899 09/07/202308/25, 03/01/2022, 03/27/2021, Additional history exists Depression [...] as of this encounter Visit Diagnoses Diagnosis Chronic diarrhea- Primary Diarrhea documented in this encounter Advance Directives Documents on File Type Date Recorded 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 No Care Teams Adjunct Philosophy Faculty Relationship Specialty Start Date End Date Chris Asencio DO [address] [place] [address] PCP - General Family Medicine 01/07/18 documented as of this encounter
[2023-06-20] MEDS: SODIUM CHLORIDE 0.9% 1,000 ML IV SCH (01:26)
--- OUTSIDE RECORDS SUMMARY | 2023-06-20 04:07 | External Medical Summary | Summary of Care ---
Author Name Unknown Organization [facility] Address [address] [place] [address] Phone [phone] Care Team Providers Care Executive Chef Name Role Phone Chris Asencioanay Primary Care Provider Reason for Visit * Reason Onset Date Comments Test Results 06/19/2023 Encounter Details Date Type Department Care Team (Late st Contact Info) Description 06/19/2023 Telephone [facility] [address] [place] [address] Eric Day MD [address] [facility] [place] [address] Test Results Allergies Active Allergy Reactions Criticality [...] as of this encounter (statuses as of 06/19/2023) Medications Medication Sig Dispensed Refills Start Date [...] 1 Each 5 10/20/2020 Active Dexcom G6 Epic [place] Analyst DeviceIndications:Typ e 2 diabetes mellitus with [...] bedtime. 48 mL 3 05/09/2023 Active Methscopolamine [place] 2.5 MG Oral TabletIndications:Irr itable bowel syndrome [...] disease, with long-term current use of insulin ([facility]) Use 1 Device as directed [...] as of this encounter (statuses as of 06/19/2023) Active Problems Patient Care Coordination No te [...] as of this encounter (statuses as of 06/19/2023) Resolved Problems Problem Noted Date Diagnosed Date [...] Sanchez MD [facility] Pharm[facility] [place] Spinal pain 06/04/2014 02/02/2017 Type 2 diabetes [...] 06/16/2001 07/24/2011 Edema 03/06/2001 07/24/2011 Mixed dyslipidemia 03/06/200105/11/ 9 Overview: Per Lipid Taxonomy. Varicose vein [...] as of this encounter (statuses as of 06/19/2023) Immunizations Name Administration Dates Next Due COVID-19 mRNA, LNP-s, No Pre serve, 2-Dose Series ([employer]) 09/09/2020,08/19/2020 Pneumococcal Conjugate Vacc, 13 Valent (Prevnar) [...] Telephone Encounter - Domi Mallory RN - 06/19/2023 1:56 PM EST TE with pt regarding critical lab results and need to go to hospital. Pt states she doesn't understand why they are this bad. She is doing what she is supposed to but states she did restart her Lisinopril due to her bp elevating despite it being on hold. [facility] ER notified that pt will be coming for evaluation and probable admission. * Telephone Encounter - Domi Mallory RN - 06/19/2023 1:55 PM EST ----- Message from Eric Day MD sent at 06/19/2023 1:43 PM EST ----- Kidney function even worse even after stopping Lasix and lisinopril. Potassium is now 6.2. Given all of this patient should be admitted in the hospital. She has had history of severe acute renal failure in the past documented in this encounter Plan of Treatment Upcoming Encounters Date Type Department Care Team (Late st Contact Info) Description 06/21/2023 1:40 PM EST Office Visit Nephrology, [facility] [address] [place] [address] Eric Day MD 200 [facility] [place] [address] 06/28/2023 4:00 PM EST Telemedicine Orthopaedics [facility] [address] [address] Carlos A Cid MD [address] [place] [phone] 08/08/2023 2:00 PM EDT Office Visit Family Practice [facility] [address] [place] [address] Taty Tobar CRNP [address] [place] [address] 08/30/2023 2:00 PM EDT Office Visit Nephrology, [facility] [address] [place] [address] Eric Day MD [address] [place] [address] 09/25/2023 1:00 PM EDT Laboratory Laboratory, [place] [address] [place] [phone] [facility] [address] [place] [address] 10/02/2023 4:00 PM EDT Office Visit Hematology/Oncology [facility] [address] [place] [address] Henok Stauffer MD [address] [place] [address] 10/03/2023 6:20 PM EDT Office Visit [facility] [address] [place] [address] Chris Asencio DO [address] [place] [address] 11/07/2023 3:40 PM EDT Office Visit [facility] [address] [place] [address] Chris Asencio, [address] [place] [address] 02/06/2024 2:00 PM EDT Office Visit [facility] [address] [place] [address] Taty Tobar CRNP [address] [place] [address] 02/28/2024 1:30 PM EDT Imaging Radiology [facility] [place] [facility] [place] [address] 03/05/2024 2:00 PM EDT Office Visit Ophthalmology, [facility] 132 [facility] [place] [address] Ernie Rivers, DO [address] [place] [address] 05/14/2024 1:00 PM EST Office Visit Family Practice [facility] 132 [facility] [place] [address] Chris Asencio, [address] [facility] [place] [address] Scheduled Procedures Name Priority Associated Diagnoses Date/Ti [...] 10/23/2023 04/24/2023, 0805/2022, 09/06/2022, Additional history exists GFR 12/17/2023 06/18/2023, 05/27, 05/28/2023, Additional history exists Albumin/Creatinine Ratio 01/25/202401/24/2 023, 09/06/2022, 11/24/2021, Additional history exists Diabetic Eye Exam 02/22/2024 02/21/2023, , 02/21/2023, Additional history exists Mammogram 02/27/2024 02/26/2023, 12/26, 01/02/2022, Additional history exists CKD HGB USE SMARTSET 57003 06/18/202406/18, 05/28/2023, 05/28/2023, Additional history exists CKD PHOS USE SMARTSET 69600 06/18/202405/28, 06/06/2023, 05/06/2023, Additional history exists COLONOSCOPY-EVERY 5 YRS [...] Documents on File Type Date Recorded 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 No Care Teams Executive Chef Relationship Specialty Start Date End Date Chris Asencio DO [address] [place] [address] PCP - General Family Medicine 01/07/18 documented as of this encounter
[2023-06-20 04:52] LABS: Anion Gap 6 (3-11); BUN Creatinine Ratio 28.4 (10-20); Blood Urea Nitrogen 85 mg/dl (6-23); Calcium 9.3 mg/dl (8.6-10.3); Carbon Dioxide 25 mmol/L (21-32); Chloride 104 mmol/L (98-107); Est GFR (African American) 17.5 ml/min; Est GFR (Non-African American) 15.1 ml/min; Glucose 84 mg/dl (70-99(Fasting)); Magnesium 2.3 mg/dl (1.7-2.4); Potassium 4.5 mmol/L (3.5-5.1); Sodium 135 mmol/L (136-145)
[2023-06-20] MEDS: ACETAMINOPHEN 500 MG TAB PO SCH ×3 (05:22→21:25)
[2023-06-20] MEDS: HEPARIN SOD 5,000 UNIT/0.5 ML VIAL SQ SCH ×3 (05:22→21:26)
[2023-06-20] MEDS ORDERED: SODIUM CHLORIDE 0.9% 1,000 ML IV ONE (05:44)
[2023-06-20] MEDS: BUDESONIDE 0.5 MG/2 ML VIAL (PULMICORT) INH SCH ×2 (07:10→19:21)
[2023-06-20] MEDS: FLUTICASONE PROPIONATE NA SPR 16 GM BTL NAE SCH ×2 (07:41→21:26)
[2023-06-20] MEDS: FLUTICASONE/VILANTEROL 100/25MCG 14 PUFFS/INHALER INH SCH (07:42)
[2023-06-20] MEDS: MONTELUKAST SODIUM 10 MG TABLET PO SCH (07:42)
[2023-06-20] MEDS: clonazePAM 0.5 MG TAB PO SCH ×3 (08:16→21:25)
[2023-06-20] MEDS: ASPIRIN 81 MG CHEW PO SCH (08:16)
[2023-06-20] MEDS: PANTOprazole 40 MG TAB PO SCH ×2 (08:17→21:26)
[2023-06-20] MEDS: METOPROLOL SUCC 25MG EXT REL TAB PO SCH (09:33)
[2023-06-20] MEDS: FAMOTIDINE 40 MG TABLET PO SCH (09:34)
[2023-06-20] MEDS: INSULIN ASPART PER UNIT CHARGE SC SCH ×4 (09:58→21:19)
[2023-06-20] MEDS: LANTUS PER UNIT CHARGE SQ SCH (09:58)
--- NOTE | 2023-06-20 13:10 | Hospitalist Progress Note ---
Date of Service June 20, 2023 Assessment & Plan (1) Acute renal failure: (2) Hyperkalemia: (3) DM type 2 (diabetes mellitus, type 2): Plan: (4) Hypertension: (5) Morbid obesity: (6) Anxiety: Plan Ms. Alejandre is a 73 year old woman complicated past medical history includingdiabetes, on long-term insulin, iron metabolism disease, diabetic retinopathy, hyperlipidemia, moderate persistent asthma, obstructive sleep apnea does not tolerate BiPAP on nocturnal oxygen 3 to 4 L, hypertension, pulmonary hypertension, PVCs, irritable bowel syndrome, GERD, chronic kidney disease stage III, restless leg syndrome, depression, KARI, PTSD, prior COVIDreferred with the above diagnosis. #Acute on chronic renal failure #History of ATN 2/2 sepsis Patient with multiple hospitalizations with acute renal failure; thought to be multifactorial 2/2 HTN/DMTII and NSAID abuse. Autoimmune/serologic tests negative -sepsis induced ATN with a high creatinine peaking around 13 during admission November 2022 that was responsive to fluids and she did not require hemodialysis.Cont with IVF overnight and trend BMP in am. -avoid NSAIDs, ACEI and diuretics. -Urine studies are pending. -Nephrology consulted. -Renal US ordered -Daily weights, standing -Strict I/Os #Hyperkalemia K is elevated 5.2 on admission, down to 4.5 this am with IVF Hold lisinopril at this time Trend BM, monitor on tele #DMTII chronic, well controlled on care home insulin therapy. Cont basal/bolus insulin. Continue ASA 81 #Relative Hypotension #Hypertension chronic, currently hypotensive. Holding antihypertensives. #Right shoulder osteoarthritis Follows orthopedics, pending scope/intervention Cont voltaren gel and tylenol #Morbid Obesity weight loss recommended for overall better health. Scheduled tylenol for joint pain. She continues on Ozempic on fridays. #IBS, diarrhea -Continue home Lomotil and methscopolamine prn for diarrhea/cramps #PVCS Continue Metoprolol 25mg daily #Primary PHTN -stable, CTM #KATERIN on noctural O2 -Did not tolerate BiPAP Continue nocturnal O2 3-4L #Asthma Continue breo ellipta inhalers and montelukast #Anemia of chronic disease -Follow Dr. Stauffer, established care 06/03/2023 Hgb baseline ~10, stable at this time -Continue trend CBC, transfuse <7.0 #HLD Continue statin #Anxiety chronic, controlled. Cont scheduled clonazepam per home regimen and doxepin. Heparin-DVT proph Full Code-per admission "initial resuscitation ok with temporary ventilator support. NO PROLONGED VENTILATOR SUPPORT DESIRED, per my conversation with she and her on admission. " Dispo-to telemetry. Admission and Anticipated Discharge Date Admission Date: June 19, 2023 Subjective Reports feeling "alright " this morning Discussed chain of events leading to UOP decline, she reports multiple infections, but disclosed taking naproxen a "couple of times" Denies any other symptoms at this time, like chest pain, palpitation, SOB or other acute concerns; however, she reports chronic right shoulder pain Physical Exam Constitutional: WD/WN, vitals as above Respiratory: normal respiratory effort, lungs clear to auscultation Cardiovascular: RRR, no murmur, no edema Gastrointestinal (Abdomen): normal bowel sounds, soft, nontender, no hepatosplenomegaly Musculoskeletal: no cyanosis or clubbing, extremities motor strength 5/5 Results & Data Results & Data Vital Signs (Past 12 Hours) Vital Signs Pulse Pulse Resp BP Pulse Ox O2 Del Method 06/20/23 07:39 62 18 96/46 L 97 Room Air 06/20/23 07:18 84 06/20/23 07:10 62 18 99 Room Air 06/20/23 06:04 58 L 18 78/34 L 96 Room Air 06/20/23 05:24 58 L 16 65/27 L 96 Room Air 06/20/23 01:33 66 21 99/48 L 96 Room Air Laboratory Results Short CBC 06/19/23 Range/Units 15:46 WBC 7.52 (4.8-10.8) K/ul Hgb 11.6 L (12.0-16.0) g/dl Hct 35.5 L (37.0-47.0) % Plt Count 300 (130-400) K/uL BMP 06/19/23 06/20/23 15:46 03:51 Sodium 131 L 135 L Potassium 5.2 H 4.5 Chloride 97 L 104 Carbon Dioxide 25 25 BUN 95 H 85 H Creatinine 4.05 H 2.99 H D Glucose 173 H 84 Calcium 10.3 9.3 Liver Function 06/19/23 Range/Units 15:46 Total Bilirubin 0.8 (0.2-1.0) mg/dl AST 12 L (13-39) U/L ALT 11 (7-52) U/L Alkaline Phosphatase 110 H (34-104) U/L Albumin 4.7 (3.4-5.0) gm/dl Urine 06/19/23 Range/Units 18:00 Urine Color Yellow Urine Appearance Clear (Clear) Urine pH 5.5 (4.5-7.5) Ur Specific [place] 1.007 (1.000-1.030) Urine Protein Negative (Negative) Urine Glucose (UA) Negative (Negative) Medications Administered Home Medications Medication Instructions Recorded Confirmed Last Taken furosemide 40 mg tablet 40 mg PO QAM 05/03/18 06/19/23 06/19/23 methscopolamine 2.5 mg tablet 2.5 mg PO QAM Cramps 05/03/18 06/19/23 06/19/23 diclofenac sodium 1 % topical gel 2 g topical QID PRN joint pain 07/22/18 06/19/23 06/19/23 fluticasone furoate 100 1 inh inhalation QAM 07/22/18 06/19/23 06/19/23 mcg-vilanterol 25 mcg/dose inhalation powder (Breo Ellipta) ondansetron 4 mg disintegrating 4 mg PO Q6H PRN Nausea 07/22/18 06/19/23 Unknown tablet albuterol sulfate 90 mcg/actuation 1 - 2 inh inhalation QID PRN 09/14/21 06/19/23 Unknown aerosol inhaler (Proventil HFA) Shortness Of Breath Or Wheezing aspirin 81 mg chewable tablet 81 mg PO QAM 09/14/21 06/19/23 06/19/23 atorvastatin 40 mg tablet 40 mg PO HS 09/14/21 06/19/23 06/18/23 clonazepam 0.5 mg tablet 0.5 mg PO TID Anxiety 09/14/21 06/19/23 06/19/23 famotidine 40 mg tablet 40 mg PO QAM 09/14/21 06/19/23 06/19/23 fluticasone propionate 50 2 spray intranasal BID 09/14/21 06/19/23 06/19/23 mcg/actuation nasal spray,suspension lisinopril 20 mg tablet 20 mg PO QAM 09/14/21 06/19/2324 metoprolol succinate 25 mg 25 mg PO DAILY 09/14/21 06/19/23 06/19/23 tablet,extended release 24 hr montelukast 10 mg tablet 10 mg PO QAM 09/14/21 06/19/23 06/19/23 pramipexole 1 mg tablet 1 mg PO HS 09/14/21 06/19/23 06/19/23 ferrous gluconate 240 mg (27 mg 240 mg PO Q2D 12/12/22 06/19/23 06/18/23 iron) tablet (Ferate) pantoprazole 40 mg tablet,delayed 40 mg PO BID #60 tabs 12/22/22 06/19/23 06/19/23 release budesonide 0.5 mg/2 mL suspension 0.5 mg inhalation BID 06/19/23 06/19/23 06/19/23 for nebulization conjugated estrogens 0.625 mg/gram 1 applic vaginal HS 06/19/23 06/19/23 06/18/23 vaginal cream (Premarin) doxepin 150 mg capsule 150 mg PO HS 06/19/23 06/19/23 06/18/23 insulin aspart U-100 100 unit/mL 4 unit subcut TID PRN sliding scale 06/19/23 06/19/23 Unknown (3 mL) subcutaneous pen (Novolog FlexPen U-100 Insulin aspart) insulin glargine U-300 conc 300 22 unit subcut QAM 06/19/23 06/19/23 06/19/23 unit/mL (1.5 mL) subcutaneous pen (Toujeo SoloStar U-300 Insulin) semaglutide 0.25 mg or 0.5 mg (2 0.5 mg subcut WK 06/19/23 06/19/23 06/14/23 mg/3 mL) subcutaneous pen injector (Ozempic) Active Medications Generic Name Dose Route Start Last Admin Trade Name Freq PRN Reason Stop Dose Admin Acetaminophen 1,000 mg 06/19/23 22:00 06/20/23 05:22 Acetaminophen 500 Mg Tab PO 07/19/23 21:59 1,000 mg Q8H FRANCESCO Administration Aspirin 81 mg 06/20/23 09:00 06/20/23 08:16 Aspirin 81 Mg Chew PO 07/20/23 08:59 81 mg QAM FRANCESCO Administration Atorvastatin Calcium 40 mg 06/19/23 21:59 06/19/23 22:42 Atorvastatin 40 Mg Tab PO 07/19/23 21:58 40 mg HS FRANCESCO Administration Budesonide 0.5 mg 06/19/23 21:59 06/20/23 07:10 Budesonide 0.5 Mg/2 Ml Vial (Pulmicort) INH 07/19/23 21:58 0.5 mg BIDR FRANCESCO Administration Clonazepam 0.5 mg 06/19/23 21:59 06/20/23 08:16 Clonazepam 0.5 Mg Tab PO 07/19/23 21:58 0.5 mg TID FRANCESCO Administration Diclofenac Sodium 2 gm 06/19/23 21:59 06/20/23 07:43 Diclofenac Sod 1% Gel 100 Gm Tube EXT 07/19/23 21:58 2 gm QID PRN Administration joint pain Protocol Doxepin HCl 150 mg 06/19/23 21:59 06/19/23 22:42 Doxepin Hcl 75 Mg Capsule PO 07/19/23 21:58 150 mg HS FRANCESCO Administration Estrogens Conjugated 1 appln 06/19/23 21:59 06/19/23 22:41 Premarin Vag Crm 14 Appln/30 Gm Tube PV 07/19/23 21:58 1 appln HS FRANCESCO Administration Famotidine 40 mg 06/20/23 09:00 06/20/23 09:34 Famotidine 40 Mg Tablet PO 07/20/23 08:59 40 mg QAM FRANCESCO Administration Fluticasone Propionate 2 sprays 06/19/23 21:59 06/20/23 07:41 Fluticasone Propionate Na Spr 16 Gm Btl SAI 07/19/23 21:58 2 sprays BID FRANCESCO Administration Fluticasone/Vilanterol 1 puffs 06/20/23 09:00 06/20/23 07:42 Fluticasone/Vilanterol 100/25mcg 14 Puffs/Inhaler INH 07/20/23 08:59 1 puffs QAM FRANCESCO Administration Heparin Sodium (Porcine) 5,000 units 06/19/23 22:00 06/20/23 05:22 Heparin Sod 5,000 Unit/0.5 Ml Vial SQ 07/19/23 21:59 5,000 units Q8H FRANCESCO Administration Insulin Aspart 0 units 06/19/23 21:59 06/20/23 09:58 Insulin Aspart Per Unit Charge SC 07/19/23 21:58 7 units ACHS FRANCESCO Administration Insulin Glargine 18 units 06/20/23 09:00 06/20/23 09:58 Lantus Per Unit Charge SQ 07/20/23 08:59 18 units DAILY FRANCESCO Administration Metoprolol Succinate 25 mg 06/20/23 09:00 06/20/23 09:33 Metoprolol Succ 25mg Ext Rel Tab PO 07/20/23 08:59 Not Given QAM FRANCESCO Miscellaneous 1 each 06/20/23 00:00 06/20/23 08:17 Order Awaiting Action: Methscopolamine 2.5 Mg Tablet N/A 07/20/23 00:00 Not Given QS FRANCESCO Montelukast Sodium 10 mg 06/20/23 09:00 06/20/23 07:42 Montelukast Sodium 10 Mg Tablet PO 07/20/23 08:59 10 mg QAM FRANCESCO Administration Pantoprazole Sodium 40 mg 06/19/23 21:59 06/20/23 08:17 Pantoprazole 40 Mg Tab PO 07/19/23 21:58 40 mg BID FRANCESCO Administration Pramipexole Dihydrochloride 1 mg 06/19/23 21:59 06/19/23 22:42 Pramipexole Dihydrochlo 0.5 Mg Tab PO 07/19/23 21:58 1 mg HS FRANCESCO Administration (1) Acute renal failure Acute renal failure type: unspecified Qualified Code(s): N17.9 - Acute kidney failure, unspecified
--- NOTE | 2023-06-20 14:37 | Nephrology Consultation ---
Date of Consultation June 20, 2023 Assessment & Plan (1) DAVONTE (acute kidney injury): She is very susceptible to acute kidney injury. in fact summer 2022 she had ATN from sepsis with a peak creatinine of 13. also had Severe ARF peak creat 8+ in 04/2018 with high K ( sec to ATN in the setting of Polypharmacy drug overdose). Got better with iv fluids and no dialysis. creatinine has been rising for the last few weeks from 1.9 then 2.7 then 3.1 and 3.8 as outpt. urine sediment completely bland without microscopic hematuria or proteinuria. all the serological test done and were normal on June 18, 2023 and can be seen in [facility] medical record with [employer]. she did get 2 L of normal saline overnight and with that creatinine has gone from 4 to 3 now. so this is a significant improvement. most likely etiology is still renal hemodynamic imbalance--- combination of naproxen Lasix lisinopril. unfortunately patient did not follow the advice she was given as an outpatient will hold Lasix and lisinopril avoid NSAIDs or any contrast agent or nephrotoxic agents. continue daily labs renal imaging to evaluate for hydronephrosis no need of further IV fluids Plan more than 60 minutes was spent in the care of the patient. case discussed with primary team History of Present Illness Reason for Consultation: DAVONTE and high K Attending Physician: Valeria Barnard MD History of Present Illness 73/F who is my clinic patient. I advise her to go to the hospital for admission because of outpatient labs showing worsening creatinine and high potassium of 6.2. creatinine has continued to get worse over the last few weeks from 1.9-2.7 and then 3.8 despite telling the patient to stop lisinopril and Lasix. however it appears patient was not exactly following the advice she was given---- it seems she was taking Lasix on her own as well as taking NSAIDs and lisinopril. so clearly at this time I have no idea what she was actually taking or not taking at home. She has a history of sepsis induced ATN with a max creatinine of around 13 with her last admission summer 2022. on the test done June 18, 2023---- serological test were all negative and urine sediment was bland without any protein or blood. complement and ANCA panels were negative. ANU, MILAGROS and dsDNA evaluations were also negative. Denies chest pain, SOB, abd pain, nausea, vomiting, changes in bowels, no urination issues except for that lower amount. she reports slightly more lower extremity edema review of systems---- as detailed in HPI. unless stated otherwise 12 systems reviewed and negative. Physical Exam Physical Exam: CONSTITUTIONAL: obese, well-appearing, no respiratory distress HEENT--- mucous membrane moist neck is supple and no JVD RESPIRATORY: clear to auscultation bilaterally, no crackles, rales or wheezes, normal respiratory effort CARDIOVASCULAR: regular rate and rhythm, S1 and 2 heard without murmurs. 1+ peripheral edema CHEST: inspection of chest was normal GASTROINTESTINAL: soft, nontender, ND, no guarding MUSCULOSKELETAL: strength 5/5 throughout, head is normocephalic and atraumatic SKIN: warm and dry NEUROLOGIC: CN 2-12 grossly intact, no sensory deficit, normal cognition, normal speech, no tremor PSYCHIATRIC: alert cooperative and oriented to person, place and time. Euthymic mood, makes good eye contact, language grossly intact, recent and remote memory grossly intact. Allergies Allergy/AdvReac Type Severity Reaction Status Date / Time bee venom protein (honey bee) Allergy Severe ANAPHYLAXIS Verified 06/19/23 17:11 iodine Allergy Severe ANAPHYLAXIS Verified 06/19/23 17:11 -SHELLFISH colestipol Allergy Unknown RASH Verified 06/19/23 17:11 doxycycline Allergy Unknown HIVES Verified 06/19/23 17:11 glimepiride Allergy Unknown RASH Verified 06/19/23 17:11 glyburide Allergy Unknown RASH Verified 06/19/23 17:11 metformin Allergy Unknown RASH Verified 06/19/23 17:11 ondansetron [From Zofran] Allergy Unknown Unknown Verified 06/19/23 17:11 pioglitazone Allergy Unknown RASH Verified 06/19/23 17:11 rosuvastatin Allergy Unknown ITCHING Verified 06/19/23 17:11 RASH shellfish derived Allergy Unknown SWELLING Verified 06/19/23 17:11 OF FACE AND MOUTH tramadol Allergy Unknown EARS RING, Verified 06/19/23 17:11 FUZZY VISION melatonin AdvReac Intermediate Causes Unverified 06/19/23 17:12 insomnia and makes me wide awake amitriptyline [From Elavil] AdvReac Unknown WT GAIN Verified 06/19/23 17:11 diphenhydramine AdvReac Unknown HEAD GOES Verified 06/19/23 17:11 CRAZY-RINGING EARS,STRANGE hydroxyzine AdvReac Unknown MENTAL Verified 06/19/23 17:11 CONFUSION pseudoephedrine AdvReac Unknown JITTERINESS Verified 06/19/23 17:11 sulfamethoxazole AdvReac Unknown Unknown Verified 06/19/23 17:11 [From Bactrim] trimethoprim [From Bactrim] AdvReac Unknown Unknown Verified 06/19/23 17:11 Home Medications Medication Instructions Recorded Confirmed Type furosemide 40 mg tablet 40 mg PO QAM 05/03/18 06/19/23 History methscopolamine 2.5 mg tablet 2.5 mg PO QAM Cramps 05/03/18 06/19/23 History diclofenac sodium 1 % topical gel 2 g topical QID PRN joint pain 07/22/1805/28 History fluticasone furoate 100 1 inh inhalation QAM 07/22/18 06/19/23 History mcg-vilanterol 25 mcg/dose inhalation powder (Breo Ellipta) ondansetron 4 mg disintegrating 4 mg PO Q6H PRN Nausea 07/22/18 06/19/23 History tablet albuterol sulfate 90 mcg/actuation 1 - 2 inh inhalation QID PRN 09/14/21 06/19/23 History aerosol inhaler (Proventil HFA) Shortness Of Breath Or Wheezing aspirin 81 mg chewable tablet 81 mg PO QAM 09/14/21 06/19/23 History atorvastatin 40 mg tablet 40 mg PO HS 09/14/21 06/19/23 History clonazepam 0.5 mg tablet 0.5 mg PO TID Anxiety 09/14/21 06/19/23 History famotidine 40 mg tablet 40 mg PO QAM 09/14/21 06/19/23 History fluticasone propionate 50 2 spray intranasal BID 09/14/21 06/19/23 History mcg/actuation nasal spray,suspension lisinopril 20 mg tablet 20 mg PO QAM 09/14/21 06/19/23 History metoprolol succinate 25 mg 25 mg PO DAILY 09/14/21 06/19/23 History tablet,extended release 24 hr montelukast 10 mg tablet 10 mg PO QAM 09/14/21 06/19/23 History pramipexole 1 mg tablet 1 mg PO HS 09/14/21 06/19/23 History ferrous gluconate 240 mg (27 mg 240 mg PO Q2D 12/12/22 06/19/23 History iron) tablet (Ferate) pantoprazole 40 mg tablet,delayed 40 mg PO BID #60 tabs 12/22/22 06/19/23 Rx release budesonide 0.5 mg/2 mL suspension 0.5 mg inhalation BID 06/19/23 06/19/23 History for nebulization conjugated estrogens 0.625 mg/gram 1 applic vaginal HS 06/19/23 06/19/23 History vaginal cream (Premarin) doxepin 150 mg capsule 150 mg PO HS 06/19/23 06/19/23 History insulin aspart U-100 100 unit/mL 4 unit subcut TID PRN sliding scale 06/19/23 06/19/23 History (3 mL) subcutaneous pen (Novolog FlexPen U-100 Insulin aspart) insulin glargine U-300 conc 300 22 unit subcut QAM 06/19/23 06/19/23 History unit/mL (1.5 mL) subcutaneous pen (Toujeo SoloStar U-300 Insulin) semaglutide 0.25 mg or 0.5 mg (2 0.5 mg subcut WK 06/19/23 06/19/23 History mg/3 mL) subcutaneous pen injector (Ozempic) Patient History Medical History RLS (restless legs syndrome) Pulmonary HTN KATERIN (obstructive sleep apnea) CKD (chronic kidney disease) stage 3, GFR 30-59 ml/min 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 Neuropathy DIABETIC NEUROPATHY- FEET Chronic back pain LOWER Osteoarthritis Temporomandibular joint disorder + CLICKING; NO LOCKING Diverticular disease GERD (gastroesophageal reflux disease) CONTROLLED Asthma moderate persistent Migraine History of opioid abuse PER RECORDS Panic disorder Depression DJD (degenerative joint disease), cervical GERD (gastroesophageal reflux disease) Venous insufficiency DM type 2 (diabetes mellitus, type 2) IDDM IBS (irritable bowel syndrome) Osteoporosis Dyslipidemia Anxiety Hypertension Surgical History History of difficult intubation RIGHT SHOULDER SCOPE WITH RCR= 06/29/16= GLIDESCOPE #3 "GOOD VIEW", ETT 7 AT [facility] Perianal abscess S/P DRAINAGE History of repair of rotator cuff B/L History of esophagogastroduodenoscopy (EGD) History of colonoscopy 02/2021, sigmoid diverticulosis, poor prep History of total knee replacement LEFT H/O arthroscopic knee surgery LEFT S/P cholecystectomy H/O colonoscopy S/P hysterectomy Family History Sister Family history of diabetes mellitus Family hx of colon cancer Brother Family history of diabetes mellitus Grandmother (Maternal) Family history of diabetes mellitus Family/Other Family history of diabetes mellitus Other Diabetes Social History Smoking Status: Never smoker Second Hand Exposure: No; Do You Dip or Chew Tobacco: No; Hx Alcohol Use: No Hx Substance Use: No Preferred Language: Nicaraguan Communication Ability: Effective Supervisor [employer] Required: No Beliefs That Will Affect Care: None marital status: Current Living Situation: Spouse Current Living Situation Comment: home current occupational status: retired Feels Safe at Home: Yes Assistive Devices: Cane and Walker Results & Data Vital Signs (Past 12 Hours) Vital Signs Pulse Pulse Resp BP Pulse Ox O2 Del Method 06/20/23 07:39 62 18 96/46 L 97 Room Air 06/20/23 07:18 84 06/20/23 07:10 62 18 99 Room Air 06/20/23 06:04 58 L 18 78/34 L 96 Room Air 06/20/23 05:24 58 L 16 65/27 L 96 Room Air Laboratory Results reviewed both inpt and outpt labs
[2023-06-20] MEDS ORDERED: TRIAMCINOLONE ACET 0.1% OINT 15 GM TUBE EXT PRN (14:49)
--- NOTE | 2023-06-20 19:46 | Electrocardiogram Report ---
Test Reason : Blood Pressure : / mmHG Vent. Rate : 070 BPM Atrial Rate : 070 BPM P-R Int : 184 ms QRS Dur : 086 ms QT Int : 374 ms P-R-T Axes : 040 -05 039 degrees QTc Int : 403 ms Normal sinus rhythm Minimal voltage criteria for LVH, may be normal variant Abnormal ECG When compared with ECG of 14-DEC-2022 04:21, No significant change was found Confirmed by Lasha Adair ([id number]) on 06/20/2023 7:45:40 PM Referred By: Confirmed By:Gera Adair
[2023-06-20] MEDS: PRAMIPEXOLE DIHYDROCHLO 0.5 MG TAB PO SCH (21:25)
[2023-06-20] MEDS: ATORVASTATIN 40 MG TAB PO SCH (21:25)
[2023-06-20] MEDS: DOXEPIN HCL 75 MG CAPSULE PO SCH (21:25)
[2023-06-20] MEDS: PREMARIN VAG CRM 14 APPLN/30 GM TUBE PV SCH (21:34)
[2023-06-21] MEDS: HEPARIN SOD 5,000 UNIT/0.5 ML VIAL SQ SCH ×3 (05:30→20:57)
[2023-06-21] MEDS: ACETAMINOPHEN 500 MG TAB PO SCH ×3 (05:31→20:55)
[2023-06-21] MEDS: BUDESONIDE 0.5 MG/2 ML VIAL (PULMICORT) INH SCH ×2 (06:23→19:51)
[2023-06-21 06:43] LABS: Hematocrit (blood only) 30.1 % (37.0-47.0); Hemoglobin 9.4 g/dl (12.0-16.0); Mean Corpuscular Hemoglobin 29.9 pg (25.0-34.0); Mean Corpuscular Hgb Conc 31.2 g/dL (32.0-36.0); Mean Corpuscular Volume 95.9 fL (80.0-100.0); Mean Platelet Volume 10.7 fL (9.4-12.4); Platelet Count 208 K/uL (130-400); RDW Coefficient of Variation 15.7 % (11.5-14.5); RDW Standard Deviation 55.1 fL (36.4-46.3); Red Blood Count 3.14 M/uL (4.20-5.40); White Blood Count 4.17 K/ul (4.8-10.8)
[2023-06-21 07:24] LABS: BUN Creatinine Ratio 31.2 (10-20); Calcium 9.5 mg/dl (8.6-10.3); Creatinine Clr Calc Pharmacy 33.8 ml/min; Est GFR (African American) 30.4 ml/min; Est GFR (Non-African American) 26.2 ml/min; Magnesium 2.2 mg/dl (1.7-2.4); Phosphorus 3.6 mg/dl (2.5-4.9); Potassium 4.8 mmol/L (3.5-5.1)
[2023-06-21] MEDS: ASPIRIN 81 MG CHEW PO SCH (08:20)
[2023-06-21] MEDS: FAMOTIDINE 40 MG TABLET PO SCH (08:20)
[2023-06-21] MEDS: PANTOprazole 40 MG TAB PO SCH ×2 (08:21→20:55)
[2023-06-21] MEDS: FLUTICASONE/VILANTEROL 100/25MCG 14 PUFFS/INHALER INH SCH (08:21)
[2023-06-21] MEDS: METOPROLOL SUCC 25MG EXT REL TAB PO SCH (08:21)
[2023-06-21] MEDS: MONTELUKAST SODIUM 10 MG TABLET PO SCH (08:21)
[2023-06-21] MEDS: LANTUS PER UNIT CHARGE SQ SCH (08:25)
[2023-06-21] MEDS: clonazePAM 0.5 MG TAB PO SCH ×3 (09:01→20:53)
--- NOTE | 2023-06-21 09:09 | Nephrology Progress Note ---
Date of Service June 21, 2023 Assessment & Plan Admission and Anticipated Discharge Date Admission Date: June 19, 2023 Subjective Assessment & Plan (1) DAVONTE (acute kidney injury): She is very susceptible to acute kidney injury. in fact summer 2022 she had ATN from sepsis with a peak creatinine of 13. also had Severe ARF peak creat 8+ in 04/2018 with high K ( sec to ATN in the setting of Polypharmacy drug overdose). Got better with iv fluids and no dialysis. creatinine has been rising for the last few weeks from 1.9 then 2.7 then 3.1 and 3.8 as outpt. urine sediment completely bland without microscopic hematuria or proteinuria. all the serological test done and were normal on June 18, 2023 and can be seen in [facility] medical record with [employer]. she did get 2 L of normal saline overnight and with that creatinine has gone from 4 to 3 now. so this is a significant improvement. most likely etiology is still renal hemodynamic imbalance--- combination of naproxen Lasix lisinopril. unfortunately patient did not follow the advice she was given as an outpatient will hold Lasix and lisinopril avoid NSAIDs or any contrast agent or nephrotoxic agents. continue daily labs Pending renal US. Given how easily creat got better I do think she was taking Lot more NSAIDS than she is admitting and was also taking lasix and Lisinopril without nephrology approval. Should be even better by tomorrow. BP still good so no need to restart lisinopril or lasix. S--Feels stable. making urine and labs even better Physical Exam Physical Exam: CONSTITUTIONAL: obese, well-appearing, no respiratory distress HEENT--- mucous membrane moist neck is supple and no JVD RESPIRATORY: clear to auscultation bilaterally, no crackles, rales or wheezes, normal respiratory effort CARDIOVASCULAR: regular rate and rhythm, S1 and 2 heard without murmurs. 1+ peripheral edema CHEST: inspection of chest was normal GASTROINTESTINAL: soft, nontender, ND, no guarding MUSCULOSKELETAL: strength 5/5 throughout, head is normocephalic and atraumatic SKIN: warm and dry NEUROLOGIC: CN 2-12 grossly intact, no sensory deficit, normal cognition, normal speech, no tremor PSYCHIATRIC: alert cooperative and oriented to person, place and time. Euthymic mood, makes good eye contact, language grossly intact, recent and remote memory grossly intact. Results & Data Vital Signs (Past 12 Hours) Vital Signs Temp Pulse Pulse Resp BP Pulse Ox O2 Del Method 06/21/23 07:44 59 L 06/21/23 07:33 36.6 C 70 18 125/71 95 Room Air 06/21/23 06:25 67 14 96 Room Air 06/21/23 03:47 36.4 C L 70 18 137/72 97 Room Air 06/21/23 01:01 71 06/20/23 23:22 36.4 C L 70 16 82/45 L 95 Room Air
--- NOTE | 2023-06-21 09:49 | Ultrasound Report ---
US renal/blad retro comp CLINICAL HISTORY: DAVONTE on ckd TECHNIQUE: Multiple sonographic real-time images of the kidneys and bladder were obtained. COMPARISON: None available at the time of this dictation. FINDINGS: The right kidney measures 9.46 cm in length, and the left kidney measures 10.83 cm in length. The right kidney is diminutive in size with cortical thinning noted. No hydronephrosis is identified. No renal lesion is identified. The left kidney is normal in size, contour, cortical thickness and echogenicity. No hydronephrosis i s identified. No renal lesion is identified. The bladder is partially distended. Bilateral jets are seen. Incidental note is made of a tiny hepati c cyst. IMPRESSION: Mildly atrophic right kidney without acute abnormalities. ACT 112: Negative or not required by law. Electronically signed by: Liban Jessica M.D. 06/21/2023 9:46 AM
[2023-06-21] MEDS: INSULIN ASPART PER UNIT CHARGE SC SCH ×4 (10:30→20:54)
[2023-06-21] MEDS: FLUTICASONE PROPIONATE NA SPR 16 GM BTL NAE SCH ×2 (10:36→20:54)
[2023-06-21] MEDS: GLUCOSE 40% GEL 15 GM TUBE PO PRN (15:20)
--- NOTE | 2023-06-21 16:34 | Hospitalist Progress Note ---
Date of Service June 21, 2023 Assessment & Plan (1) Acute renal failure: (2) Hyperkalemia: (3) DM type 2 (diabetes mellitus, type 2): Plan: (4) Hypertension: (5) Morbid obesity: (6) Anxiety: Plan Ms. Alejandre is a 73 year old woman complicated past medical history includingdiabetes, on long-term insulin, iron metabolism disease, diabetic retinopathy, hyperlipidemia, moderate persistent asthma, obstructive sleep apnea does not tolerate BiPAP on nocturnal oxygen 3 to 4 L, hypertension, pulmonary hypertension, PVCs, irritable bowel syndrome, GERD, chronic kidney disease stage III, restless leg syndrome, depression, KARI, PTSD, prior COVIDreferred with the above diagnosis. #Acute on chronic renal failure *improving #History of ATN 2/2 sepsis Patient with multiple hospitalizations with acute renal failure; thought to be multifactorial 2/2 HTN/DMTII and NSAID abuse. Autoimmune/serologic tests negative -sepsis induced ATN with a high creatinine peaking around 13 during admission November 2022 that was responsive to fluids and she did not require hemodialysis.Cont with IVF overnight and trend BMP in am. -avoid NSAIDs, ACEI and diuretics. -Nephrology consulted. -Hold lasix and lisinopril -Repeat CMP in morning -Renal US: Mildly atrophic right kidney without acute abnormalities. -Daily weights, standing -Strict I/Os #Hyperkalemia K is elevated 5.2 on admission, down to 4.5 this am with IVF Hold lisinopril at this time Trend BM, monitor on tele #DMTII chronic, well controlled on chcf insulin therapy. Cont basal/bolus insulin. Continue ASA 81 #Relative Hypotension #Hypertension chronic, currently hypotensive. Holding antihypertensives. #Right shoulder osteoarthritis Follows orthopedics, pending scope/intervention Cont voltaren gel and tylenol #Morbid Obesity weight loss recommended for overall better health. Scheduled tylenol for joint pain. She continues on Ozempic on fridays. #IBS, diarrhea -Continue home Lomotil and methscopolamine prn for diarrhea/cramps #PVCS Continue Metoprolol 25mg daily #Primary PHTN -stable, CTM #KATERIN on noctural O2 -Did not tolerate BiPAP Continue nocturnal O2 3-4L #Asthma Continue breo ellipta inhalers and montelukast #Anemia of chronic disease -Follow Dr. Stauffer, established care 06/03/2023 Hgb baseline ~10, stable at this time -Continue trend CBC, transfuse <7.0 #HLD Continue statin #Anxiety chronic, controlled. Cont scheduled clonazepam per home regimen and doxepin. Heparin-DVT proph Full Code-per admission "initial resuscitation ok with temporary ventilator support. NO PROLONGED VENTILATOR SUPPORT DESIRED, per my conversation with she and her on admission. " Dispo-to telemetry. Possible Discharge tomorrow Admission and Anticipated Discharge Date Admission Date: June 19, 2023 Subjective NAEO Long discussion regarding pain management and avoiding NSAIDs Physical Exam Constitutional: WD/WN, vitals as above Respiratory: normal respiratory effort, lungs clear to auscultation Cardiovascular: RRR, no murmur, no edema Gastrointestinal (Abdomen): normal bowel sounds, soft, nontender, no hepatosplenomegaly Musculoskeletal: no cyanosis or clubbing, extremities motor strength 5/5 Results & Data Results & Data Vital Signs (Past 12 Hours) Vital Signs Temp Pulse Pulse Resp BP Pulse Ox O2 Del Method 06/21/23 15:12 36.7 C 64 18 129/71 97 Room Air 06/21/23 14:50 65 06/21/23 11:06 36.5 C 68 18 141/63 H 98 Room Air 06/21/23 07:44 59 L 06/21/23 07:33 36.6 C 70 18 125/71 95 Room Air 06/21/23 06:25 67 14 96 Room Air Laboratory Results Short CBC 06/21/23 Range/Units 05:31 WBC 4.17 L (4.8-10.8) K/ul Hgb 9.4 L (12.0-16.0) g/dl Hct 30.1 L (37.0-47.0) % Plt Count 208 (130-400) K/uL BMP 06/21/23 05:31 Sodium 139 Potassium 4.8 Chloride 109 H Carbon Dioxide 26 BUN 59 H D Creatinine 1.89 H D Glucose 111 H Calcium 9.5 Medications Administered Home Medications Medication Instructions Recorded Confirmed Last Taken furosemide 40 mg tablet 40 mg PO QAM 05/03/18 06/19/23 06/19/23 methscopolamine 2.5 mg tablet 2.5 mg PO QAM Cramps 05/03/18 06/19/23 06/19/23 diclofenac sodium 1 % topical gel 2 g topical QID PRN joint pain 07/22/18 06/19/23 06/19/23 fluticasone furoate 100 1 inh inhalation QAM 07/22/18 06/19/23 06/19/23 mcg-vilanterol 25 mcg/dose inhalation powder (Breo Ellipta) ondansetron 4 mg disintegrating 4 mg PO Q6H PRN Nausea 07/22/18 06/19/23 Unknown tablet albuterol sulfate 90 mcg/actuation 1 - 2 inh inhalation QID PRN 09/14/21 06/19/23 Unknown aerosol inhaler (Proventil HFA) Shortness Of Breath Or Wheezing aspirin 81 mg chewable tablet 81 mg PO QA 09/14/21 06/19/23 06/19/23 atorvastatin 40 mg tablet 40 mg PO HS 09/14/21 06/19/23 06/18/23 clonazepam 0.5 mg tablet 0.5 mg PO TID Anxiety 09/14/21 06/19/23 06/19/23 famotidine 40 mg tablet 40 mg PO [facility] 09/14/21 06/19/23 06/19/23 fluticasone propionate 50 2 spray intranasal BID 09/14/21 06/19/23 06/19/23 mcg/actuation nasal spray,suspension lisinopril 20 mg tablet 20 mg PO [facility] 09/14/21 06/19/23 06/19/23 metoprolol succinate 25 mg 25 mg PO DAILY 09/14/21 06/19/23 06/19/23 tablet,extended release 24 hr montelukast 10 mg tablet 10 mg PO [facility] 09/14/21 06/19/23 06/19/23 pramipexole 1 mg tablet 1 mg PO 09/14/21 06/19/23 06/19/23 ferrous gluconate 240 mg (27 mg 240 mg PO Q2D 12/12/22 06/19/23 06/18/23 iron) tablet (Ferate) pantoprazole 40 mg tablet,delayed 40 mg PO BID #60 tabs 12/22/22 06/19/23 06/19/23 release budesonide 0.5 mg/2 mL suspension 0.5 mg inhalation BID 06/19/23 06/19/23 06/19/23 for nebulization conjugated estrogens 0.625 mg/gram 1 applic vaginal HS 06/19/23 06/19/23 06/18/23 vaginal cream (Premarin) doxepin 150 mg capsule 150 mg PO HS 06/19/23 06/19/23 06/18/23 insulin aspart U-100 100 unit/mL 4 unit subcut TID PRN sliding scale 06/19/23 06/19/23 Unknown (3 mL) subcutaneous pen (Novolog FlexPen U-100 Insulin aspart) insulin glargine U-300 conc 300 22 unit subcut QAM 06/19/23 06/19/23 06/19/23 unit/mL (1.5 mL) subcutaneous pen (Toujeo SoloStar U-300 Insulin) semaglutide 0.25 mg or 0.5 mg (2 0.5 mg subcut WK 06/19/23 06/19/23 06/14/23 mg/3 mL) subcutaneous pen injector (Ozempic) Active Medications Generic Name Dose Route Start Last Admin Trade Name Freq PRN Reason Stop Dose Admin Acetaminophen 1,000 mg 06/19/23 22:00 06/21/23 13:33 Acetaminophen 500 Mg Tab PO 07/19/23 21:59 1,000 mg Q8H FRANCESCO Administration Aspirin 81 mg 06/20/23 09:00 06/21/23 08:20 Aspirin 81 Mg Chew PO 07/20/23 08:59 81 mg QAM FRANCESCO Administration Atorvastatin Calcium 40 mg 06/19/23 21:59 06/20/23 21:25 Atorvastatin 40 Mg Tab PO 07/19/23 21:58 40 mg HS FRANCESCO Administration Budesonide 0.5 mg 06/19/23 21:59 06/21/23 06:23 Budesonide 0.5 Mg/2 Ml Vial (Pulmicort) INH 07/19/23 21:58 0.5 mg BIDR FRANCESCO Administration Clonazepam 0.5 mg 06/19/23 21:59 06/21/23 13:33 Clonazepam 0.5 Mg Tab PO 07/19/23 21:58 0.5 mg TID FRANCESCO Administration Diclofenac Sodium 2 gm 06/19/23 21:59 06/20/23 07:43 Diclofenac Sod 1% Gel 100 Gm Tube EXT 07/19/23 21:58 2 gm QID PRN Administration joint pain Protocol Doxepin HCl 150 mg 06/19/23 21:59 06/20/23 21:25 Doxepin Hcl 75 Mg Capsule PO 07/19/23 21:58 150 mg HS FRANCESCO Administration Estrogens Conjugated 1 appln 06/19/23 21:59 06/20/23 21:34 Premarin Vag Crm 14 Appln/30 Gm Tube PV 07/19/23 21:58 1 appln HS FRANCESCO Administration Famotidine 40 mg 06/20/23 09:00 06/21/23 08:20 Famotidine 40 Mg Tablet PO 07/20/23 08:59 40 mg QAM FRANCESCO Administration Fluticasone Propionate 2 sprays 06/19/23 21:59 06/21/23 10:36 Fluticasone Propionate Na Spr 16 Gm Btl SAI 07/19/23 21:58 2 sprays BID FRANCESCO Administration Fluticasone/Vilanterol 1 puffs 06/20/23 09:00 06/21/23 08:21 Fluticasone/Vilanterol 100/25mcg 14 Puffs/Inhaler INH 07/20/23 08:59 1 puffs QAM FRANCESCO Administration Glucose 15 - 30 gm 06/19/23 21:59 06/21/23 15:20 Glucose 40% Gel 15 Gm Tube PO 07/19/23 21:58 15 gm UD PRN Administration Hypoglycemia Protocol Protocol Heparin Sodium (Porcine) 5,000 units 06/19/23 22:00 06/21/23 13:33 Heparin Sod 5,000 Unit/0.5 Ml Vial SQ 07/19/23 21:59 5,000 units Q8H FRANCESCO Administration Insulin Aspart 0 units 06/19/23 21:59 06/21/23 13:33 Insulin Aspart Per Unit Charge SC 07/19/23 21:58 9 units ACHS FRANCESCO Administration Insulin Glargine 18 units 06/20/23 09:00 06/21/23 08:25 Lantus Per Unit Charge SQ 07/20/23 08:59 18 units DAILY FRANCESCO Administration Metoprolol Succinate 25 mg 06/20/23 09:00 06/21/23 08:21 Metoprolol Succ 25mg Ext Rel Tab PO 07/20/23 08:59 25 mg QAM FRANCESCO Administration Miscellaneous 1 each 06/20/23 00:00 06/21/23 15:08 Order Awaiting Action: Methscopolamine 2.5 Mg Tablet N/A 02/24/24 00:00 Not Given QS FRANCESCO Miscellaneous 15 - 30 gm 06/19/23 21:59 06/21/23 15:19 Carbohydrates For Hypoglycemia PO 07/19/23 21:58 15 gm UD PRN Administration Hypoglycemia Protocol Montelukast Sodium 10 mg 06/20/23 09:00 06/21/23 08:21 Montelukast Sodium 10 Mg Tablet PO 07/20/23 08:59 10 mg QAM FRANCESCO Administration Pantoprazole Sodium 40 mg 06/19/23 21:59 06/21/23 08:21 Pantoprazole 40 Mg Tab PO 07/19/23 21:58 40 mg BID FRANCESCO Administration Pramipexole Dihydrochloride 1 mg 06/19/23 21:59 06/20/23 21:25 Pramipexole Dihydrochlo 0.5 Mg Tab PO 07/19/23 21:58 1 mg HS FRANCESCO Administration (1) Acute renal failure Acute renal failure type: unspecified Qualified Code(s): N17.9 - Acute kidney failure, unspecified
[2023-06-21] MEDS: ATORVASTATIN 40 MG TAB PO SCH (20:53)
[2023-06-21] MEDS: DOXEPIN HCL 75 MG CAPSULE PO SCH (20:54)
[2023-06-21] MEDS: PRAMIPEXOLE DIHYDROCHLO 0.5 MG TAB PO SCH (20:55)
[2023-06-21] MEDS: PREMARIN VAG CRM 14 APPLN/30 GM TUBE PV SCH (21:03)
[2023-06-22] MEDS: GLUCOSE 40% GEL 15 GM TUBE PO PRN (03:13)
[2023-06-22] MEDS: HEPARIN SOD 5,000 UNIT/0.5 ML VIAL SQ SCH ×3 (06:02→19:48)
[2023-06-22] MEDS: ACETAMINOPHEN 500 MG TAB PO SCH ×3 (06:05→22:21)
[2023-06-22 06:29] LABS: Hematocrit (blood only) 28.4 % (37.0-47.0); Hemoglobin 9.3 g/dl (12.0-16.0); Mean Corpuscular Hemoglobin 30.6 pg (25.0-34.0); Mean Corpuscular Hgb Conc 32.7 g/dL (32.0-36.0); Mean Corpuscular Volume 93.4 fL (80.0-100.0); Mean Platelet Volume 10.7 fL (9.4-12.4); Platelet Count 215 K/uL (130-400); RDW Coefficient of Variation 15.8 % (11.5-14.5); RDW Standard Deviation 54.3 fL (36.4-46.3); Red Blood Count 3.04 M/uL (4.20-5.40); White Blood Count 4.92 K/ul (4.8-10.8)
[2023-06-22 06:43] LABS: BUN Creatinine Ratio 27.4 (10-20); Calcium 9.3 mg/dl (8.6-10.3); Est GFR (African American) 35.1 ml/min; Est GFR (Non-African American) 30.2 ml/min; Magnesium 2.1 mg/dl (1.7-2.4); Phosphorus 3.9 mg/dl (2.5-4.9); Potassium 4.9 mmol/L (3.5-5.1)
[2023-06-22] MEDS: BUDESONIDE 0.5 MG/2 ML VIAL (PULMICORT) INH SCH ×2 (07:24→19:16)
[2023-06-22] MEDS: PANTOprazole 40 MG TAB PO SCH ×2 (09:08→19:48)
[2023-06-22] MEDS: FLUTICASONE/VILANTEROL 100/25MCG 14 PUFFS/INHALER INH SCH (09:09)
[2023-06-22] MEDS: FAMOTIDINE 40 MG TABLET PO SCH (09:09)
[2023-06-22] MEDS: MONTELUKAST SODIUM 10 MG TABLET PO SCH (09:09)
[2023-06-22] MEDS: METOPROLOL SUCC 25MG EXT REL TAB PO SCH (09:09)
[2023-06-22] MEDS: FLUTICASONE PROPIONATE NA SPR 16 GM BTL NAE SCH ×2 (09:10→19:49)
[2023-06-22] MEDS: LANTUS PER UNIT CHARGE SQ SCH (09:15)
[2023-06-22] MEDS: INSULIN ASPART PER UNIT CHARGE SC SCH ×4 (09:16→21:20)
[2023-06-22] MEDS: clonazePAM 0.5 MG TAB PO SCH ×3 (09:17→19:47)
[2023-06-22] MEDS: ASPIRIN 81 MG CHEW PO SCH (09:17)
[2023-06-22] MEDS: METHSCOPOLAMINE SCH (09:18)
[2023-06-22 10:01] LABS: Urea Nitrogen, Random Urine 268 mg/dL
--- NOTE | 2023-06-22 11:42 | Nephrology Progress Note ---
Date of Service June 22, 2023 Assessment & Plan (1) DAVONTE (acute kidney injury): Plan: She is very susceptible to acute kidney injury. in fact summer 2022 she had ATN from sepsis with a peak creatinine of 13. also had Severe ARF peak creat 8+ in 04/2018 with high K ( sec to ATN in the setting of Polypharmacy drug overdose). Got better with iv fluids and no dialysis. creatinine has been rising for the last few weeks from 1.9 then 2.7 then 3.1 and 3.8 as outpt. urine sediment completely bland without microscopic hematuria or proteinuria. all the serological test done and were normal on June 18, 2023 and can be seen in [facility] medical record with [facility]. she did get 2 L of normal saline overnight and with that creatinine has gone from 4 to 3 now. so this is a significant improvement. most likely etiology is still renal hemodynamic imbalance--- combination of naproxen Lasix lisinopril. -Creatinine is downtrending to 1.68 today. Baseline creatinine around 1.4. -Will continue to monitor renal function daily BMP -Blood pressure is improving. Admission and Anticipated Discharge Date Admission Date: June 19, 2023 Subjective Seen for DAVONTE and hypotension. She feels better today. Main complaint is pain in her joints in the fingers and both shoulders. Review of Systems 2 Review of Systems: All other systems were reviewed and negative except as noted in HPI Physical Exam 2 Physical Exam: General exam: Appears comfortable, no acute distress HEENT: Pupils are equal and reactive to light Neck: No JVD, neck is supple trachea is midline Respiratory system: Clear breath sounds bilaterally. Gastrointestinal: Abdomen is soft, non distended, non tender, bowel sounds are present CVS: Regular rate and rhythm. No murmurs, rubs or gallops Musculoskeletal: No joint or muscle tenderness Extremities: Non tender, no edema, peripheral pulses are present Neuro: Oriented, no tremors, no focal neurological deficits Skin: No rashes Results & Data Vital Signs (Past 12 Hours) Vital Signs Temp Pulse Pulse Resp BP Pulse Ox O2 Del Method 06/22/23 08:05 56 L 06/22/23 07:54 36.4 C L 55 L 16 110/71 100 Room Air 06/22/23 07:25 56 L 14 99 Room Air 06/22/23 03:04 36.7 C 60 18 89/56 L 99 Room Air FiO2 06/22/23 08:05 06/22/23 07:54 06/22/23 07:25 21 06/22/23 03:04 Laboratory Results 06/22/23 05:30 06/22/23 05:30 WBC 4.92 RBC 3.04 L MCV 93.4 MCH 30.6 MCHC 32.7 RDW Std Deviation 54.3 H RDW Coeff of Pérez 15.8 H Plt Count 215 MPV 10.7 Phosphorus 3.9
--- NOTE | 2023-06-22 12:41 | Hospitalist Progress Note ---
Date of Service June 22, 2023 Assessment & Plan (1) Acute renal failure: (2) Hyperkalemia: (3) DM type 2 (diabetes mellitus, type 2): Plan: (4) Hypertension: (5) Morbid obesity: (6) Anxiety: Plan Ms. Alejandre is a 73 year old woman complicated past medical history includingdiabetes, on long-term insulin, iron metabolism disease, diabetic retinopathy, hyperlipidemia, moderate persistent asthma, obstructive sleep apnea does not tolerate BiPAP on nocturnal oxygen 3 to 4 L, hypertension, pulmonary hypertension, PVCs, irritable bowel syndrome, GERD, chronic kidney disease stage III, restless leg syndrome, depression, KARI, PTSD, prior COVIDreferred with the above diagnosis. #Acute on chronic DAVONTE #History of ATN 2/2 sepsis Patient with multiple hospitalizations with acute renal failure; thought to be multifactorial 2/2 HTN/DMTII and NSAID abuse. Autoimmune/serologic tests negative History of use of NSAIDs, CLARITA and diuretics. Presented with creatinine of 4.5 Renal US: Mildly atrophic right kidney without acute abnormalities. Creatinine improvement with IV hydration. Continue to hold Lasix and lisinopril. Daily weights, standing Strict I/Os Hyperkalemia K is elevated 5.2 on admission, down to 4.5 this am with IVF Hold lisinopril at this time. 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 Cont basal/bolus insulin. Continue ASA 81 Hypertension chronic, currently hypotensive. Holding antihypertensives. Right shoulder osteoarthritis Follows orthopedics, pending scope/intervention Cont voltaren gel and tylenol Morbid Obesity weight loss recommended for overall better health. Scheduled tylenol for joint pain. She continues on Ozempic on fridays. IBS, diarrhea -Continue home Lomotil and methscopolamine prn for diarrhea/cramps PVCS Continue Metoprolol 25mg daily #Primary PHTN -stable, CTM KATERIN on noctural O2 -Did not tolerate BiPAP Continue nocturnal O2 3-4L Asthma Continue breo ellipta inhalers and montelukast Anemia of chronic disease -Follow Dr. Stauffer, [facility] care 06/03/2023 Hgb baseline ~10, stable at this time -Continue trend CBC, transfuse <7.0 HLD Continue statin Anxiety chronic, controlled. Cont scheduled clonazepam per home regimen and doxepin. Heparin-DVT proph Full Code-per admission "initial resuscitation ok with temporary ventilator support. NO PROLONGED VENTILATOR SUPPORT DESIRED Dispo-to telemetry. Time spent evaluating patient, direct bedside care, chart review, placing orders, interpretation of diagnostic studies, discussion with consultants, patient, and family members, as well as other required patient management activities is 50 minutes Please note the above document was generated using voice recognition software. It may contain grammatical, syntax or spelling errors. Any formal questions or concerns about the content, text or information contained within the body of this dictation should be directly addressed to the provider for clarification Admission and Anticipated Discharge Date Admission Date: June 19, 2023 Subjective Patient seen and examined at bedside. She is comfortably sitting up at the side of the bed; not in distress. She denies any pain or discomfort. Review of Systems Review of Systems: All systems reviewed & are unremarkable except as noted in Subjective Physical Exam Physical Exam: CONSTITUTIONAL: Alert oriented x 3; not in distress. RESPIRATORY: clear to auscultation bilaterally, no crackles, rales or wheezes, normal respiratory effort CARDIOVASCULAR: regular rate and rhythm, S1 and 2 heard without murmurs, gallops or rubs, no JVD, no peripheral edema CHEST: inspection of chest was normal GASTROINTESTINAL: soft, nontender, ND, no guarding MUSCULOSKELETAL: strength 5/5 throughout, head is normocephalic and atraumatic SKIN: warm and dry NEUROLOGIC: CN 2-12 grossly intact, no sensory deficit, normal cognition, normal speech, no tremor PSYCHIATRIC: alert cooperative and oriented to person, place and time. Results & Data Results & Data Vital Signs (Past 12 Hours) Vital Signs Temp Pulse Pulse Resp BP Pulse Ox O2 Del Method 06/22/23 11:57 36.4 C L 80 16 96/57 L 97 Room Air 06/22/23 08:05 56 L 06/22/23 07:54 36.4 C L 55 L 16 110/71 100 Room Air 06/22/23 07:25 56 L 14 99 Room Air 06/22/23 03:04 36.7 C 60 18 89/56 L 99 Room Air FiO2 06/22/23 11:57 06/22/23 08:05 06/22/23 07:54 06/22/23 07:25 21 06/22/23 03:04 (1) Acute renal failure Acute renal failure type: unspecified Qualified Code(s): N17.9 - Acute kidney failure, unspecified
[2023-06-22] MEDS: PRAMIPEXOLE DIHYDROCHLO 0.5 MG TAB PO SCH (19:47)
[2023-06-22] MEDS: ATORVASTATIN 40 MG TAB PO SCH (19:48)
[2023-06-22] MEDS: DOXEPIN HCL 75 MG CAPSULE PO SCH (19:48)
[2023-06-22] MEDS: PREMARIN VAG CRM 14 APPLN/30 GM TUBE PV SCH (19:49)
[2023-06-23] MEDS: ACETAMINOPHEN 500 MG TAB PO SCH (05:12)
[2023-06-23] MEDS: HEPARIN SOD 5,000 UNIT/0.5 ML VIAL SQ SCH (05:14)
[2023-06-23 07:02] LABS: Basophils # (auto) 0.02 K/uL (0.00-0.20); Basophils % (auto) 0.4 %; Eosinophils # (auto) 0.15 K/uL (0.00-0.50); Hematocrit (blood only) 31.6 % (37.0-47.0); Hemoglobin 9.9 g/dl (12.0-16.0); Immature Granulocytes # (auto) 0.01 K/uL (0.01-0.20); Immature Granulocytes % (auto) 0.2 %; Lymphocytes # (auto) 1.75 K/uL (1.20-3.40); Lymphocytes % (auto) 35.1 %; Mean Corpuscular Hemoglobin 29.4 pg (25.0-34.0); Mean Corpuscular Hgb Conc 31.3 g/dL (32.0-36.0); Mean Corpuscular Volume 93.8 fL (80.0-100.0); Mean Platelet Volume 10.6 fL (9.4-12.4); Monocytes # (auto) 0.44 K/uL (0.11-0.59); Monocytes % (auto) 8.8 %; Neutrophils # (auto) 2.61 K/uL (1.40-6.50); Neutrophils % (auto) 52.5 %; Platelet Count 238 K/uL (130-400); RDW Coefficient of Variation 15.6 % (11.5-14.5); RDW Standard Deviation 53.7 fL (36.4-46.3); Red Blood Count 3.37 M/uL (4.20-5.40); White Blood Count 4.98 K/ul (4.8-10.8)
[2023-06-23] MEDS: BUDESONIDE 0.5 MG/2 ML VIAL (PULMICORT) INH SCH (07:27)
[2023-06-23 07:30] LABS: BUN Creatinine Ratio 24.6 (10-20); Calcium 9.9 mg/dl (8.6-10.3); Est GFR (Non-African American) 37.1 ml/min; Potassium 4.7 mmol/L (3.5-5.1)
[2023-06-23] MEDS: PANTOprazole 40 MG TAB PO SCH (08:39)
[2023-06-23] MEDS: FAMOTIDINE 40 MG TABLET PO SCH (08:40)
[2023-06-23] MEDS: METOPROLOL SUCC 25MG EXT REL TAB PO SCH (08:40)
[2023-06-23] MEDS: MONTELUKAST SODIUM 10 MG TABLET PO SCH (08:40)
[2023-06-23] MEDS: METHSCOPOLAMINE SCH (08:41)
[2023-06-23] MEDS: FLUTICASONE PROPIONATE NA SPR 16 GM BTL NAE SCH (08:41)
[2023-06-23] MEDS: clonazePAM 0.5 MG TAB PO SCH (08:49)
[2023-06-23] MEDS: ASPIRIN 81 MG CHEW PO SCH (08:49)
[2023-06-23] MEDS: INSULIN ASPART PER UNIT CHARGE SC SCH (08:56)
[2023-06-23] MEDS: FLUTICASONE/VILANTEROL 100/25MCG 14 PUFFS/INHALER INH SCH (08:56)
[2023-06-23] MEDS: LANTUS PER UNIT CHARGE SQ SCH (09:00)
--- NOTE | 2023-06-23 13:07 | Discharge Summary ---
Date of Service June 23, 2023 Admission HPI Per Admitting Provider 73-year-old female referred by her dialysis technician after outpatient testing revealed hyperkalemia with a K of 6.2 and an elevated creatinine despite stopping lisinopril and Lasix. The patient has a history of sepsis induced ATN with a max creatinine of around 13 with her last admission over the summer 2022. She has recently been noted on trending lab work to have a rising creatinine. She is being followed by Dr. Soni of [facility] nephrology who recently ordered complement and ANCA panels which were negative. ANU, MILAGROS and dsDNA evaluations were also negative. No evidence of proteinuria on outpatient lab work yesterday. Was told to stop her lasix and lisinopril. She just stopped two weeks ago as advised but then restarted the lisinopril again because of high BP readings at home. Then she noticed her urine output decreasing despite drinking 3-4 small jugs of water each day. Noticed her hands and feet were swelling and that she was starting to gain weight. She restarted the lasix again but only took 40mg once per day. This helped her symptoms and improved her urine output initially, but then felt her urine output decreasing again, so she gave herself a second dose of 40mg in the afternoons, and the urine output improved again. She was feeling fine but noticed her urine output declining again. Noted having recently taken naproxen two days only about 1-2 weeks ago for severe joint pain. Denies chest pain, SOB, abd pain, nausea, vomiting, changes in bowels, no urination issues except for that lower amount noted above. Reports a 13 lb weight gain in last 2-4 weeks from poor appetite. Reports food didn't taste good to her. is at bedside and assists with the history. Admission Exam Per Admitting Provider CONSTITUTIONAL: obese, vitals as above, generally well-appearing, NAD EYES: pupils are round and equal bilaterally, normal conjunctivae, no scleral icterus ENT: external ear and nose normal, oropharynx clear, MMM NECK: trachea midline, RESPIRATORY: clear to auscultation bilaterally, no crackles, rales or wheezes, normal respiratory effort CARDIOVASCULAR: regular rate and rhythm, S1 and 2 heard without murmurs, gallops or rubs, no JVD, no peripheral edema CHEST: inspection of chest was normal GASTROINTESTINAL: soft, nontender, ND, no guarding MUSCULOSKELETAL: strength 5/5 throughout, head is normocephalic and atraumatic SKIN: warm and dry NEUROLOGIC: CN 2-12 grossly intact, no sensory deficit, normal cognition, normal speech, no tremor PSYCHIATRIC: alert cooperative and oriented to person, place and time. Euthymic mood, makes good eye contact, language grossly intact, recent and remote memory grossly intact. Principal Diagnosis #Acute on chronic DAVONTE #Hyperkalemia Discharge Exam CONSTITUTIONAL: Alert oriented x 3; not in distress. RESPIRATORY: clear to auscultation bilaterally, no crackles, rales or wheezes, normal respiratory effort CARDIOVASCULAR: regular rate and rhythm, S1 and 2 heard without murmurs, gallops or rubs, no JVD, no peripheral edema CHEST: inspection of chest was normal GASTROINTESTINAL: soft, nontender, ND, no guarding MUSCULOSKELETAL: strength 5/5 throughout, head is normocephalic and atraumatic SKIN: warm and dry NEUROLOGIC: CN 2-12 grossly intact, no sensory deficit, normal cognition, normal speech, no tremor PSYCHIATRIC: alert cooperative and oriented to person, place and time. Discharge Data Allergies Allergy/AdvReac Type Severity Reaction Status Date / Time bee venom protein (honey bee) Allergy Severe ANAPHYLAXIS Verified 06/19/23 17:11 iodine Allergy Severe ANAPHYLAXIS Verified 06/19/23 17:11 -SHELLFISH colestipol Allergy Unknown RASH Verified 06/19/23 17:11 doxycycline Allergy Unknown HIVES Verified 06/19/23 17:11 glimepiride Allergy Unknown RASH Verified 06/19/23 17:11 glyburide Allergy Unknown RASH Verified 06/19/23 17:11 metformin Allergy Unknown RASH Verified 06/19/23 17:11 ondansetron [From Zofran] Allergy Unknown Unknown Verified 06/19/23 17:11 pioglitazone Allergy Unknown RASH Verified 06/19/23 17:11 rosuvastatin Allergy Unknown ITCHING Verified 06/19/23 17:11 RASH shellfish derived Allergy Unknown SWELLING Verified 06/19/23 17:11 OF FACE AND MOUTH tramadol Allergy Unknown EARS RING, Verified 06/19/23 17:11 FUZZY VISION melatonin AdvReac Intermediate Causes Unverified 06/19/23 17:12 insomnia and makes me wide awake amitriptyline [From Elavil] AdvReac Unknown WT GAIN Verified 06/19/23 17:11 diphenhydramine AdvReac Unknown HEAD GOES Verified 06/19/23 17:11 CRAZY-RINGING EARS,STRANGE hydroxyzine AdvReac Unknown MENTAL Verified 06/19/23 17:11 CONFUSION pseudoephedrine AdvReac Unknown JITTERINESS Verified 06/19/23 17:11 sulfamethoxazole AdvReac Unknown Unknown Verified 06/19/23 17:11 [From Bactrim] trimethoprim [From Bactrim] AdvReac Unknown Unknown Verified 06/19/23 17:11 Consultations 06/19/23 17:08 ED Decision to Admit Stat 06/20/23 10:59 Consult Nephrology Routine Ordered Studies 06/20/23 14:56 US Renal Bladder [US renal/blad retro comp] Routine Hospital Course (1) Acute renal failure: (2) Hyperkalemia: (3) DM type 2 (diabetes mellitus, type 2): (4) Hypertension: (5) Morbid obesity: (6) Anxiety: Plan Ms. Alejandre is a 73 year old woman complicated past medical history includingdiabetes, on long-term insulin, iron metabolism disease, diabetic retinopathy, hyperlipidemia, moderate persistent asthma, obstructive sleep apnea does not tolerate BiPAP on nocturnal oxygen 3 to 4 L, hypertension, pulmonary hypertension, PVCs, irritable bowel syndrome, GERD, chronic kidney disease stage III, restless leg syndrome, depression, KARI, PTSD, prior COVIDreferred with the above diagnosis. #Acute on chronic DAVONTE #History of ATN 2/2 sepsis #Hyperkalemia Patient with multiple hospitalizations with acute renal failure; thought to be multifactorial 2/2 HTN/DMTII and NSAID abuse. Autoimmune/serologic tests negative History of use of NSAIDs, CLARITA and diuretics. Presented with creatinine of 4.5 Renal US: Mildly atrophic right kidney without acute abnormalities. During the hospitalization patient was treated with IV fluids. Lasix, lisinopril and naproxen were stopped. Patient creatinine down trended. Patient was discharged home with instruction to stop lisinopril, Lasix and naproxen indefinitively. Patient to follow-up with PCP. Please note the above document was generated using voice recognition software. It may contain grammatical, syntax or spelling errors. Any formal questions or concerns about the content, text or information contained within the body of this dictation should be directly addressed to the provider for clarification Total Time Total Time Spent Total Time Spent (In Minutes): 35 Total Time Includes: Examination of the Patient, Discharge Planning, Medication Reconciliation, Communication With Other Providers and Other Discharge Plan Discharge Items Patient Disposition: Home - Self-Care Reason For Visit: HYPERKALEMIA Discharge Diagnosis: Acute kidney injury Hyperkalemia Activity: Resume your previous activity Non-emergency contact: Primary Care Provider Call non-emergency contact if: you have any medication questions and your symptoms worsen Follow-up/Referrals: Chris Asencio DO [Primary Care Provider] - (Date & Time 06/27/2023 9:00 AM Provider Chris Asencio DO Department [facility] ) Diet: Regular Addtl Attending Provider Instructions: You were admitted to the hospital due to acute kidney injury and high potassium level. The likely cause for the acute kidney injury and high potassium level is combination of medication including naproxen, Lasix and lisinopril. Please stop these medications. Continue other medications. For the shoulder pain, you can take Tylenol as needed every 8 hours. You have an appointment with your primary care doctor on June 27, 2023. Please obtain BMP to check on your potassium and your kidney function levels. Pending Studies at Discharge: No Stand-Alone Forms: My [facility] [employer], Smoking Cessation Medications and DC Order Prescriptions: New acetaminophen [Tylenol Extra Strength] 500 mg Tablet 1,000 mg PO Q8H Qty: 30 0RF Continued methscopolamine 2.5 mg tablet 2.5 mg PO QAM Rx Instructions: Can take 2.5mg by mouth later in the day if needed fluticasone furoate-vilanterol [Breo Ellipta] 100-25 mcg/dose Blister With Device 1 inh INHALATION QAM diclofenac sodium 1 % Gel 2 g TOPICAL QID PRN (Reason: joint pain) Rx Instructions: Apply to both knees ondansetron 4 mg Tablet,Disintegrating 4 mg PO Q6H PRN (Reason: Nausea) aspirin 81 mg tablet,chewable 81 mg PO QAM atorvastatin 40 mg tablet 40 mg PO HS pramipexole 1 mg tablet 1 mg PO HS famotidine 40 mg tablet 40 mg PO QAM metoprolol succinate 25 mg tablet extended release 24 hr 25 mg PO DAILY albuterol sulfate [Proventil HFA] 90 mcg/actuation Hfa Aerosol Inhaler 1 - 2 inh INHALATION QID PRN (Reason: Shortness Of Breath Or Wheezing) fluticasone propionate 50 mcg/actuation spray,suspension 2 spray INTRANASAL BID clonazepam 0.5 mg tablet 0.5 mg PO TID montelukast 10 mg tablet 10 mg PO QAM Premarin 0.625 mg/gram cream 1 applic vaginal HS budesonide 0.5 mg/2 mL suspension for nebulization 0.5 mg inhalation BID doxepin 150 mg capsule 150 mg PO HS insulin aspart U-100 [Novolog FlexPen U-100 Insulin] 100 unit/mL (3 mL) insul in pen 4 unit SUBCUT TID PRN (Reason: sliding scale) Toujesseo SoloStar U-300 Insulin 300 unit/mL (1.5 mL) insulin pen 22 unit SUBCUT QAM Ozempic 0.25 mg or 0.5 mg (2 mg/3 mL) pen injector 0.5 mg SUBCUT WK Rx Instructions: Fridays ferrous gluconate [Ferate] 240 mg (27 mg iron) tablet 240 mg PO Q2D pantoprazole 40 mg Tablet,Delayed Release (Dr/Ec) 40 mg PO BID Qty: 60 1RF Discontinued furosemide 40 mg tablet 40 mg PO QAM lisinopril 20 mg tablet 20 mg PO QAM Hold Instructions: To be determined by Primary Care Physician as to when to resume Discharge Orders: Discharge Order (Routine); Ordered 06/23/23 Ordered By: Sean Castro Admission Data Admit Date/Time: 06/19/23 21:28 Attending Provider: Sean Castro Admit Provider: Daniel Dickinson Primary Care Provider: Chris Asencio Other Providers: Eliana Carter; Eric Day Other Interventions: Discharge Summary Assessment (RN) Last Done: 06/23/23 12:45
== END 2023-06-23 14:36 | disposition home or self-care (01) | DRG 683 ==
LOC: ED 15:10 → SUATTDRO 21:28 → EDINP 21:28 → 2N 21:59

== ENCOUNTER 2024-09-21 13:43 | Inpatient (IN) ==
--- NOTE | 2024-09-21 14:01 | Emergency Department Note ---
Impression & Plan Chest pain ED Provider Note NAME: EVA FOOTE AGE: 74 SEX: F : 1950 ARRIVES VIA: Ambulance INFORMANT: Patient, ED PROVIDER(S): Andrés Shook DO CHIEF COMPLAINT: Chest pain HPI: The patient is a 74-year-old female who presented to the emergency department for an evaluation of chest pain. The patient notices anterior chest pain that she describes as a pressure. She initially noticed it yesterday when she was working in her garden. She noticed it again today. The patient was treated with aspirin as well as nitroglycerin prior to arrival. She states it goes to her jaw as well as her left shoulder. She has not been seen by her family doctor but came directly to the emergency department for further evaluation. The patient denies having any fever. She does note some shortness of breath. She also notices nausea. She states the aspirin and nitroglycerin did significantly improve her pain. ROS: See above HPI for pertinent positives & negatives. A total of 10 systems reviewed and were otherwise negative. PAST MEDICAL HISTORY: See Below PAST SURGICAL HISTORY: See Below FAMILY HISTORY: See Below SOCIAL HISTORY: See Below HOME MEDICATIONS: See Below ALLERGIES: See Below VITALS: See Below PHYSICAL EXAMINATION: GENERAL: Patient is awake alert in no acute distress patient is resting comfortably and showing no signs of anxiety EYES: The conjunctivae are clear. The pupils are round and reactive. EARS, NOSE, MOUTH AND THROAT: The nose is without any evidence of any deformity. NECK: The neck is nontender and supple. RESPIRATORY: Normal respiratory effort is noted there is no evidence of wheezing rhonchi or rales CARDIOVASCULAR: Regular rate and rhythm noted there no murmurs rubs or gallops normal S1 normal S2. GASTROINTESTINAL: The abdomen is soft. Abdomen is nontender. MUSCULOSKELETAL/EXTREMITIES: There is no evidence of gross deformity full range of motion is noted in the hips and shoulders. SKIN: There is no obvious evidence of any rash. Trace pedal edema was noted bilaterally. NEUROLOGIC: Patient is awake alert and oriented x3 MEDICAL DECISION MAKING: The patient is a 74-year-old female who presented to the emergency department for an evaluation of chest pain. The patient has multiple risk factors for coronary artery disease. She was having initial chest pain with some exertion. The chest pain did resolve but then returned today. The patient presented to the emergency department for further evaluation. She was treated with aspirin and nitroglycerin prior to arrival. Upon arrival she was pain-free. I discussed the patient's laboratory and radiographic studies with her. I discussed the limitations of the emergency department workup for chest pain with her. Given her past medical history and comorbidities I do not feel that she would be a good candidate for outpatient treatment. For this reason I discussed her condition with the on-call [facility] hospitalist. Triage Nursing notes reviewed. Prior medical records reviewed Vital Signs: reviewed and remarkable for no significant abnormalities Differential diagnosis: Cardiac ischemia, aortic dissection, pulmonary embolism, pneumothorax, pneumonia, pericarditis, myocarditis, esophageal rupture, GERD, cholecystitis, pancreatitis, musculoskeletal, as well as other pathologies. ER treatment provided: See below Diagnostics interpreted by me: ECG: EKG was obtained in the emergency department. My interpretation is normal sinus rhythm at 80 bpm. There was no ectopy. There was no acute ST segment abnormalities noted. LVH was suggested by voltage criteria. This was compared to a tracing from March 15, 2024. No changes were noted. A prehospital EKG was obtained and reviewed by myself. My interpretation is normal sinus rhythm at 89 bpm. No ectopy was noted. ST abnormalities were noted in the lateral leads. This compares similar to the EKG obtained in the emergency department. Cardiac Monitoring: An order was placed for continuous cardiac monitoring. The monitor shows a rate of 63 bpm with sinus rhythm. Laboratory studies: As stated above and show below. Imaging studies: See below. Radiographic imaging was reviewed by myself Consultation(s): I discussed this case with Ki[facility] Past Med/Surg History Problem List Chest pain (Acute) Acute blood loss anemia Pyelonephritis Bacteremia due to Klebsiella pneumoniae Septic shock Diarrhea Metabolic acidosis Hyponatremia Severe sepsis DVT prophylaxis Hypoxia (Acute) SOB (shortness of breath) (Acute) Asthma exacerbation (Acute) COVID-19 (Acute) RLS (restless legs syndrome) KATERIN (obstructive sleep apnea) CKD (chronic kidney disease) stage 3, GFR 30-59 ml/min Morbid obesity History of difficult intubation RIGHT SHOULDER SCOPE WITH RCR= 06/29/16= GLIDESCOPE #3 "GOOD VIEW", ETT 7 AT [facility] History of opioid abuse PER RECORDS Hypertension Anxiety Dyslipidemia Osteoporosis IBS (irritable bowel syndrome) DM type 2 (diabetes mellitus, type 2) IDDM Venous insufficiency GERD (gastroesophageal reflux disease) DJD (degenerative joint disease), cervical Depression Panic disorder S/P hysterectomy H/O colonoscopy S/P cholecystectomy H/O arthroscopic knee surgery LEFT Medical History DAVONTE (acute kidney injury) Pulmonary HTN 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 Neuropathy DIABETIC NEUROPATHY- FEET Chronic back pain LOWER Osteoarthritis Temporomandibular joint disorder + CLICKING; NO LOCKING Diverticular disease GERD (gastroesophageal reflux disease) CONTROLLED Asthma moderate persistent Migraine Surgical History Perianal abscess S/P DRAINAGE History of repair of rotator cuff B/L History of esophagogastroduodenoscopy (EGD) History of colonoscopy 02/2021, sigmoid diverticulosis, poor prep History of total knee replacement LEFT Family History Sister Family history of diabetes mellitus Family hx of colon cancer Brother Family history of diabetes mellitus Grandmother (Maternal) Family history of diabetes mellitus Family/Other Family history of diabetes mellitus Other Diabetes Social History Smoking Status: Never smoker Second Hand Exposure: No; Do You Dip or Chew Tobacco: No; Hx Alcohol Use: No Hx Substance Use: No Preferred Language: Citizen Of [place] Communication Ability: Effective 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 Beliefs That Will Affect Care: None marital status: Current Living Situation: Spouse Current Living Situation Comment: home current occupational status: retired Feels Safe at Home: Yes Assistive Devices: Cane and Walker Allergies Allergies Allergy/AdvReac Type Severity Reaction Status Date / Time bee venom protein (honey bee) Allergy Severe ANAPHYLAXIS Verified 09/21/24 15:55 iodine Allergy Severe ANAPHYLAXIS Verified 09/21/24 15:55 -SHELLFISH shellfish derived Allergy Severe SWELLING Verified 09/21/24 15:55 OF FACE AND MOUTH colestipol Allergy Intermediate RASH Verified 09/21/24 15:55 doxycycline Allergy Intermediate HIVES Verified 09/21/24 15:55 glimepiride Allergy Intermediate RASH Verified 09/21/24 15:55 glyburide Allergy Intermediate RASH Verified 09/21/24 15:55 metformin Allergy Intermediate RASH Verified 09/21/24 15:55 pioglitazone Allergy Intermediate RASH Verified 09/21/24 15:55 rosuvastatin Allergy Intermediate ITCHING Verified 09/21/24 15:55 RASH ondansetron [From Zofran] Allergy Unknown Unknown Verified 09/21/24 15:55 amitriptyline [From Elavil] AdvReac Intermediate WT GAIN Verified 09/21/24 15:55 diphenhydramine AdvReac Intermediate HEAD GOES Verified 09/21/24 15:55 CRAZY-RINGING EARS,STRANGE hydroxyzine AdvReac Intermediate MENTAL Verified 09/21/24 15:55 CONFUSION melatonin AdvReac Intermediate Causes Verified 09/21/24 15:55 insomnia and makes me wide awake pseudoephedrine AdvReac Intermediate JITTERINESS Verified 09/21/24 15:55 tramadol AdvReac Intermediate EARS RING, Verified 09/21/24 15:55 FUZZY VISION sulfamethoxazole AdvReac Unknown Unknown Verified 09/21/24 15:55 [From Bactrim] trimethoprim [From Bactrim] AdvReac Unknown Unknown Verified 09/21/24 15:55 Home Meds Home Medications Medication Instructions Recorded Confirmed methscopolamine 2.5 mg tablet 2.5 mg PO TID PRN ABD CRAMPS 05/03/18 09/21/24 diclofenac sodium 1 % topical gel 2 g topical QID PRN joint pain 07/22/18 09/21/24 fluticasone furoate 100 1 inh inhalation QAM 07/22/18 09/21/24 mcg-vilanterol 25 mcg/dose inhalation powder (Breo Ellipta) aspirin 81 mg chewable tablet 81 mg PO QAM 09/14/21 09/21/24 atorvastatin 40 mg tablet 40 mg PO QAM 09/14/21 09/21/24 clonazepam 0.5 mg tablet 0.5 mg PO .1-2XDAILY Anxiety 09/14/21 09/21/24 famotidine 40 mg tablet 40 mg PO QAM 09/14/21 09/21/24 fluticasone propionate 50 2 spray intranasal BID 09/14/21 09/21/24 mcg/actuation nasal spray,suspension metoprolol succinate 25 mg See Rx Instructions .Route .COMPLEX 09/14/21 09/21/24 tablet,extended release 24 hr montelukast 10 mg tablet 10 mg PO QAM 09/14/21 09/21/24 pramipexole 1 mg tablet 1 mg PO HS 09/14/21 09/21/24 ferrous gluconate 240 mg (27 mg 240 mg PO Q OTHER DAY 12/12/22 09/21/24 iron) tablet (Ferate) budesonide 0.5 mg/2 mL suspension 0.5 mg inhalation BID 06/19/23 09/21/24 for nebulization conjugated estrogens 0.625 mg/gram 1 applic vaginal 3XWK 06/19/23 09/21/24 vaginal cream (Premarin) doxepin 150 mg capsule 150 mg PO HS 06/19/23 09/21/24 insulin aspart U-100 100 unit/mL 10 unit subcut TIDM 06/19/23 09/21/24 (3 mL) subcutaneous pen (Novolog FlexPen U-100 Insulin aspart) Calcium/Vitamin D/Zinc Supp. 1 tab PO BID 09/21/24 09/21/24 acetaminophen 500 mg tablet 1,000 mg PO BID 09/21/24 09/21/24 (Tylenol Extra Strength) albuterol sulfate 2.5 mg/3 mL 2.5 mg inhalation Q4H PRN 09/21/24 09/21/24 (0.083 %) solution for nebulization Shortness Of Breath Or Wheezing albuterol sulfate 90 mcg/actuation 1 - 2 inh inhalation Q4H PRN 09/21/24 09/21/24 aerosol inhaler Shortness Of Breath Or Wheezing amoxicillin 875 mg tablet 875 mg PO BID 09/21/24 09/21/24 ascorbic acid (vitamin C) 500 mg 500 mg PO BID 09/21/24 09/21/24 tablet (Vitamin C) benzonatate 100 mg capsule 100 mg PO TID PRN Cough 09/21/24 09/21/24 bupropion HCl 100 mg tablet,12 hr 100 mg PO QAM 09/21/24 09/21/24 sustained-release (Wellbutrin SR) calcitonin (salmon) 200 200 unit intranasal (ALT) QAM 09/21/24 09/21/24 unit/actuation nasal spray diphenoxylate-atropine 2.5 2 tab PO Q6H PRN Diarrhea 09/21/24 09/21/24 mg-0.025 mg tablet (Lomotil) dulaglutide 3 mg/0.5 mL 3 mg subcut WK 09/21/24 09/21/24 subcutaneous pen injector (Trulicity) epinephrine 0.3 mg/0.3 mL 0.3 mg IM DIRECTED PRN Allergic 09/21/24 09/21/24 injection, auto-injector (EpiPen) Reaction furosemide 20 mg tablet (Lasix) 20 mg PO BID 09/21/24 09/21/24 insulin glargine 100 unit/mL (3 28 unit subcut QAM 09/21/24 09/21/24 mL) subcutaneous pen (Lantus Solostar U-100 Insulin) molnupiravir 200 mg capsule (EUA) 800 mg PO Q12H 09/21/24 09/21/24 multivitamin 1 tab PO DAILY 09/21/24 09/21/24 propylene glycol 0.6 % eye drops 1 drp OPB QID 09/21/24 09/21/24 (Systane Complete) triamcinolone acetonide 0.1 % 1 applic topical BID PRN SKIN 09/21/24 09/21/24 topical ointment IRRITATIONS Previous Rx's Medication Instructions Recorded pantoprazole 40 mg tablet,delayed 40 mg PO BID #60 tabs 12/22/22 release Results & Data (ED) Vital Signs Vital Signs - 24 hr 09/21/24 13:56 09/21/24 13:59 09/21/24 13:59 Temperature 36.5 C Temperature Source Oral Pulse Rate 79 82 Pulse Rate [Apical] Pulse Rhythm [Apical] Pulse Strength [Apical] Respiratory Rate 19 Respiratory Effort / Characteristics Spontaneous Blood Pressure 148/78 H Blood Pressure [Left Arm] Blood Pressure Mean 101 Blood Pressure Mean [Left Arm] Blood Pressure Position Semi-fowlers Blood Pressure Position [Left Arm] Pulse Oximetry 97 97 Oxygen Delivery Method Room Air Room Air Sepsis Recent Fever Within 48 Hours No Sepsis New/Unexplained Change in Mental Status N/A Sepsis Action Taken by Nursing No Action Required 09/21/24 13:59 09/21/24 13:59 09/21/24 15:41 Temperature 36.5 C Temperature Source Oral Pulse Rate 82 Pulse Rate [Apical] 82 65 Pulse Rhythm [Apical] Regular Pulse Strength [Apical] Normal Respiratory Rate 19 19 19 Respiratory Effort / Characteristics Spontaneous Spontaneous Blood Pressure Blood Pressure [Left Arm] 148/78 H 98/66 L Blood Pressure Mean Blood Pressure Mean [Left Arm] 101 76 Blood Pressure Position Blood Pressure Position [Left Arm] Semi-fowlers Semi-fowlers Pulse Oximetry 97 97 98 Oxygen Delivery Method Room Air Room Air Room Air Sepsis Recent Fever Within 48 Hours Sepsis New/Unexplained Change in Mental Status Sepsis Action Taken by Nursing 09/21/24 17:37 Temperature Temperature Source Pulse Rate 63 Pulse Rate [Apical] Pulse Rhythm [Apical] Pulse Strength [Apical] Respiratory Rate Respiratory Effort / Characteristics Blood Pressure Blood Pressure [Left Arm] Blood Pressure Mean Blood Pressure Mean [Left Arm] Blood Pressure Position Blood Pressure Position [Left Arm] Pulse Oximetry Oxygen Delivery Method Sepsis Recent Fever Within 48 Hours Sepsis New/Unexplained Change in Mental Status Sepsis Action Taken by Detention Medications Current Medication List: was personally reviewed by me Laboratory Data Attestation: I reviewed the patient's lab results. 09/21/24 13:18 09/21/24 13:18 Lab Results 09/21/24 09/21/24 Range/Units 13:18 16:16 WBC 6.93 (4.8-10.8) K/ul RBC 4.46 (4.20-5.40) M/uL Hgb 13.2 (12.0-16.0) g/dl Hct 39.2 (37.0-47.0) % MCV 87.9 (80.0-100.0) fL MCH 29.6 (25.0-34.0) pg MCHC 33.7 (32.0-36.0) g/dL RDW Std Deviation 46.8 H (36.4-46.3) fL RDW Coeff of Pérez 14.6 H (11.5-14.5) % Plt Count 285 (130-400) K/uL MPV 10.9 (9.4-12.4) fL Immature Gran % (Auto) 0.3 % Neut % (Auto) 58.5 % Lymph % (Auto) 30.9 % [place] % (Auto) 7.4 % Eos % (Auto) 2.5 % Baso % (Auto) 0.4 % Neut # (Auto) 4.06 (1.40-6.50) K/uL Lymph # (Auto) 2.14 (1.20-3.40) K/uL [place] # (Auto) 0.51 (0.11-0.59) K/uL Eos # (Auto) 0.17 (0.00-0.50) K/uL Baso # (Auto) 0.03 (0.00-0.20) K/uL Immature Gran # (Auto) 0.02 (0.01-0.20) K/uL PT 10.4 (9.0-12.0) Seconds INR 1.0 (0.9-1.1) APTT 26 (21-31) Seconds PTT Ratio 1.0 Sodium 138 (136-145) mmol/L Potassium 3.1 L (3.5-5.1) mmol/L Chloride 100 (98-107) mmol/L Carbon Dioxide 29 (21-32) mmol/L Anion Gap 9 (3-11) BUN 16 (6-23) mg/dl Creatinine 1.29 H (0.6-1.2) mg/dl Est Cr Clr Drug Dosing 54.0 ml/min eGFR 44.10 BUN/Creatinine Ratio 12.4 (10-20) Glucose 159 H (70-99(Fasting)) mg/dl Calcium 9.3 (8.6-10.3) mg/dl Total Bilirubin 0.6 (0.2-1.0) mg/dl AST 15 (13-39) U/L ALT 13 (7-52) U/L Alkaline Phosphatase 116 H (34-104) U/L Troponin I High Sens 7.1 9.4 (0-14) pg/ml Total Protein 8.0 (6.0-8.3) gm/dl Albumin 4.2 (3.4-5.0) gm/dl Globulin 3.8 (2.5-4.0) gm/dl Albumin/Globulin Ratio 1.1 (0.9-2) Lipase 40 (11-82) U/L Administered Medications Discontinued Medications Potassium Chloride (Potassium Chloride Crtab 20 Meq Tabcr) 40 meq PO NOW STA Stop: 09/21/24 16:34 Last Admin: 09/21/24 17:13 Dose: 40 meq Documented By: MNE Imaging Data Attestation: I personally reviewed and interpreted this imaging study as follows: My Impression: 1 view chest x-ray was obtained in the emergency department. My interpretation is no free air or definite infiltrate, final report below. Radiologist's Impression: Chest X-Ray 09/21/24 13:59 XR chest 1V portable CLINICAL HISTORY: Chest pain, nonspecific COMPARISON STUDY: Chest radiograph June 19, 2023. FINDINGS: Calcific densities suggestive of joint bodies within the left glenohumeral joint are again noted. Lung volumes are mildly diminished. There is no pneumothorax or pleural effusion. Interstitial thickening is present. This may be technical. Cardiomediastinal silhouette is stable. No consolidation is identified. IMPRESSION: 1. Subtle interstitial thickening. This may be related to a hypoventilatory study or represent pulmonary vascular congestion. 2. No consolidation to suggest pneumonia. ACT 112: Negative or not required by law. Electronically signed by: Nolan Gastelum M.D. 09/21/2024 2:24 PM Discharge Plan Visit Data Chief Complaint: Chest Pain Stated Complaint: Chest pain ED Provider: Anrdés Shook Discharge Problem: Chest pain Patient Disposition: Being Evaluated by Hospitalist Forms Stand Alone Forms: My [facility] Prescriptions Prescriptions: No Action methscopolamine 2.5 mg tablet 2.5 mg PO TID PRN (Reason: ABD CRAMPS) fluticasone furoate-vilanterol [Breo Ellipta] 100-25 mcg/dose Blister With Device 1 inh INHALATION QAM diclofenac sodium 1 % Gel 2 g TOPICAL QID PRN (Reason: joint pain) Rx Instructions: Apply to both knees aspirin 81 mg tablet,chewable 81 mg PO QAM atorvastatin 40 mg tablet 40 mg PO QAM pramipexole 1 mg tablet 1 mg PO HS famotidine 40 mg tablet 40 mg PO QAM metoprolol succinate 25 mg tablet extended release 24 hr See Rx Instructions .ROUTE .COMPLEX Rx Instructions: TAKES 25 MG QAM, THEN 12.5 MG QHS. fluticasone propionate 50 mcg/actuation spray,suspension 2 spray INTRANASAL BID clonazepam 0.5 mg tablet 0.5 mg PO .1-2XDAILY montelukast 10 mg tablet 10 mg PO QAM Premarin 0.625 mg/gram cream 1 applic vaginal 3XWK Rx Instructions: AT HS, DIRECTED. budesonide 0.5 mg/2 mL suspension for nebulization 0.5 mg inhalation BID doxepin 150 mg capsule 150 mg PO HS insulin aspart U-100 [Novolog FlexPen U-100 Insulin] 100 unit/mL (3 mL) insulin pen 10 unit SUBCUT TIDM ferrous gluconate [Ferate] 240 mg (27 mg iron) tablet 240 mg PO Q OTHER DAY pantoprazole 40 mg Tablet,Delayed Release (Dr/Ec) 40 mg PO BID Qty: 60 1RF multivitamin Tablet 1 tab PO DAILY albuterol sulfate [Proventil] 2.5 mg /3 mL (0.083 %) Solution For Nebulization 2.5 mg INHALATION Q4H PRN (Reason: Shortness Of Breath Or Wheezing) diphenoxylate-atropine [Lomotil] 2.5-0.025 mg Tablet 2 tab PO Q6H PRN (Reason: Diarrhea) bupropion HCl [Wellbutrin SR] 100 mg Tablet Sustained-Release 12 Hr 100 mg PO QAM amoxicillin 875 mg tablet 875 mg PO BID Rx Instructions: STARTED 09/14/24 FOR 7 DAYS ascorbic acid (vitamin C) [Vitamin C] 500 mg Tablet 500 mg PO BID calcitonin (salmon) 200 unit/actuation [place],Non-Aerosol 200 unit intranasal (ALT) QAM benzonatate 100 mg Capsule 100 mg PO TID PRN (Reason: Cough) triamcinolone acetonide 0.1 % Ointment 1 applic TOPICAL BID PRN (Reason: SKIN IRRITATIONS) furosemide [Lasix] 20 mg Tablet 20 mg PO BID epinephrine [EpiPen] 0.3 mg/0.3 mL Auto-Injector 0.3 mg IM DIRECTED PRN (Reason: Allergic Reaction) albuterol sulfate [Proventil HFA] 90 mcg/actuation Hfa Aerosol Inhaler 1 - 2 inh INHALATION Q4H PRN (Reason: Shortness Of Breath Or Wheezing) insulin glargine [Lantus Solostar U-100 Insulin] 100 unit/mL (3 mL) Insulin Pen 28 unit SUBCUT QAM Systane Complete 0.6 % Drops 1 drp OPB QID Trulicity 3 mg/0.5 mL Pen Injector 3 mg SUBCUT WK molnupiravir 200 mg Capsule 800 mg PO Q12H Calcium/Vitamin D/Zinc Supp. 1 tab PO BID Rx Instructions: CHEWABLE acetaminophen [Tylenol Extra Strength] 500 mg tablet 1,000 mg PO BID Referrals Referrals: Chris Asencio DO [Primary Care Provider] -
[2024-09-21 14:14] LABS: Basophils # (auto) 0.03 K/uL (0.00-0.20); Basophils % (auto) 0.4 %; Eosinophils # (auto) 0.17 K/uL (0.00-0.50); Eosinophils % (auto) 2.5 %; Hematocrit (blood only) 39.2 % (37.0-47.0); Hemoglobin 13.2 g/dl (12.0-16.0); Immature Granulocytes # (auto) 0.02 K/uL (0.01-0.20); Immature Granulocytes % (auto) 0.3 %; Lymphocytes # (auto) 2.14 K/uL (1.20-3.40); Lymphocytes % (auto) 30.9 %; Mean Corpuscular Hemoglobin 29.6 pg (25.0-34.0); Mean Corpuscular Hgb Conc 33.7 g/dL (32.0-36.0); Mean Corpuscular Volume 87.9 fL (80.0-100.0); Mean Platelet Volume 10.9 fL (9.4-12.4); Monocytes # (auto) 0.51 K/uL (0.11-0.59); Monocytes % (auto) 7.4 %; Neutrophils # (auto) 4.06 K/uL (1.40-6.50); Neutrophils % (auto) 58.5 %; Platelet Count 285 K/uL (130-400); RDW Coefficient of Variation 14.6 % (11.5-14.5); RDW Standard Deviation 46.8 fL (36.4-46.3); Red Blood Count 4.46 M/uL (4.20-5.40); White Blood Count 6.93 K/ul (4.8-10.8)
--- NOTE | 2024-09-21 14:25 | XRay Report ---
XR chest 1V portable CLINICAL HISTORY: Chest pain, nonspecific COMPARISON STUDY: Chest radiograph June 19, 2023. FINDINGS: Calcific densities suggestive of joint bodies within the left glenohumeral joint are again noted. Lung volumes are mildly diminished. There is no pneumothorax or pleural effusion. Interstitial thickening is present. This may be technical. Cardiomediastinal silhouette is stable. No consolidati on is identified. IMPRESSION: 1. Subtle interstitial thickening. This may be related to a hypoventilatory study or represent pulmon andrés vascular congestion. 2. No consolidation to suggest pneumonia. ACT 112: Negative or not required by law. Electronically signed by: Nolan Gastelum M.D. 09/21/2024 2:24 PM
[2024-09-21 14:41] LABS: Albumin Globulin Ratio 1.1 (0.9-2); Albumin Level 4.2 gm/dl (3.4-5.0); BUN Creatinine Ratio 12.4 (10-20); Bilirubin,Total 0.6 mg/dl (0.2-1.0); Calcium 9.3 mg/dl (8.6-10.3); Globulin 3.8 gm/dl (2.5-4.0); Potassium 3.1 mmol/L (3.5-5.1)
[2024-09-21 14:44] LABS: Troponin I High Sensitivity 7.1 pg/ml (0-14)
[2024-09-21 14:47] LABS: Partial Thromboplastin Time 26 Seconds (21-31); Prothrombin Time 10.4 Seconds (9.0-12.0)
--- NOTE | 2024-09-21 15:58 | History & Physical Report ---
Date of Service September 21, 2024 Assessment & Plan (1) Chest pain: Plan: Liane Alejandre is a 74y/o F with PMHx significant for DM type II with bilateral mild nonproliferative retinopathy on long-term insulin therapy, moderate persistent asthma, KATERIN intolerant to CPAP and BiPAP, chronic pedal edema, HLD, HTN, CKD stage III, primary pulmonary hypertension, PVCs, IBS, GERD with esophagitis, RLS, generalized osteoarthritis, anemia of chronic disease, medical marijuana use for chronic pain, persistent insomnia, PTSD and depression with anxiety who presented to the ED with chest pain and is being admitted under our service for further inpatient evaluation. S/p 324mg ASA and nitro spray x 2 en route to ED with significant improvement. High-sensitivity troponin x 2 negative. EKG obtained in ED without any acute evidence of ST abnormalities. CXR obtained and grossly unremarkable upon personal review. Prior dobutamine stress echocardiogram completed in May 2020 with was negative for inducible ischemia. TTE from November 2022 with normal LVEF of 55 to 60%, borderline concentric LVH, no regional wall motion abnormalities, trace MR and trace TR. Telemetry monitoring. PRN SL nitroglycerin for chest pain. PRN EKG with chest pain. Trend troponin Q6H. Obtain updated TTE. NPO after MN for possible cardiac stress testing tomorrow - appreciate cardiology consult. (2) Acute sinusitis: Plan: Diagnosed as an outpatient. Notes compliance with ABX therapy. 1 more dose of po amoxicillin to complete full 7-day course this evening. Feeling improved in this regard. (3) Hypokalemia: Plan: Repleted 40mEq po KCl in ED. Continue to monitor and replete PRN. (4) Hypertension: Plan: Remains normotensive on admission. Continue home antihypertensive regimen, including Lasix, with routine BP monitoring and hold parameters. (5) DM type 2 (diabetes mellitus, type 2): Plan: Hemoglobin A1c 7.1% 6 days ago. Hold home agents. CC diet. Basal/bolus insulin regimen while inpatient. Appreciate assistance of glycemic pharmacy for insulin management. (6) Asthma: Plan: Currently well-controlled. Continue home inhalers/nebs and Singulair. (7) CKD (chronic kidney disease), stage III: Plan: Cr stable on admission, baseline Cr around 1.1-1.5 per chart review. Avoid nephrotoxic agents when able. Monitor renal function closely with daily labs and renally dose medications when able. (8) Anemia of chronic disease: Plan: H/H stable on admission. Continue iron supplementation. Continue daily H/H monitoring. Follows with Dr. Stauffer of [facility] hematology. Other Chronic Medical Conditions: HLD/PTSD/Anxiety/Depression/GERD/RLS - Continue home meds for these specific conditions as/when able. DVT Prophylaxis: SQ Heparin Code Status: FULL CODE PCP: Chris Asencio DO Disposition: Admit to med/tele for further inpatient evaluation and management as per above. Patient seen in collaboration with Dr. Castro. Please see addendum. I spent a total of 60 minutes coordinating, documenting, and providing care for this patient excluding time spent in the performance of separately billed services or time spent by another provider/QHP. This included personally reviewing all current laboratories and imaging studies, medical reconciliation, outpatient chart review and discussion with specialists. This chart was completed in part utilizing Speech Voice Recognition Software. Grammatical errors, random word insertions, pronoun errors, and incomplete sentences are an occasional consequence of this system due to software limitations, ambient noise, and hardware issues. Any formal questions or concerns about the content, text, or information contained within the body of this dictation should be directly addressed to the provider for clarification. History of Present Illness Chief Complaint: Chest Pain Primary Care Provider: Chris Asencio DO Liane Alejandre is a 74y/o F with PMHx significant for DM type II with bilateral mild nonproliferative retinopathy on long-term insulin therapy, moderate persistent asthma, KATERIN intolerant to CPAP and BiPAP, chronic pedal edema, HLD, HTN, primary pulmonary hypertension, PVCs, IBS, GERD with esophagitis, RLS, generalized osteoarthritis, anemia of chronic disease, medical marijuana use for chronic pain, persistent insomnia, PTSD and depression with anxiety who presented to the ED via EMS with complaint of chest pain. History obtained from the patient, at bedside, discussion with ED provider and associated chart review. Endorses 2 separate episodes of mid substernal chest pressure yesterday which both occurred with exertion whilst she was performing various yard work activities outside. These episodes lasted no longer than a few minutes and resolved with rest. She then experienced another episode of mid substernal chest pressure this morning with associated pain and dyspnea whilst cleaning around the house. Some nausea and lightheadedness with this event as well. Describes the chest pain as mid substernal and sharp in nature with radiation up into her right jaw region and also down her left arm. No associated diaphoresis with this event. Had never experienced an episode like this before therefore she alerted her to call EMS. She received 324mg ASA and nitro spray x 2 en route to the ED with significant improvement in her chest discomfort. Endorses minimal mid substernal chest pressure during our conversation but denies any sharp pains or dyspnea. High- sensitivity troponin x 2 negative. EKG obtained in ED without any acute evidence of ST abnormalities. CXR obtained and grossly unremarkable upon review. Prior dobutamine stress echocardiogram completed in May 2020 with was negative for inducible ischemia. TTE from November 2022 with normal LVEF of 55 to 60%, borderline concentric LVH, no regional wall motion abnormalities, trace MR and trace TR. Medical marijuana use (via vape) for chronic pain. No prior cigarette use. Rare alcohol use. Allergies Allergy/AdvReac Type Severity Reaction Status Date / Time bee venom protein (honey bee) Allergy Severe ANAPHYLAXIS Verified 09/21/24 15:55 iodine Allergy Severe ANAPHYLAXIS Verified 09/21/24 15:55 -SHELLFISH shellfish derived Allergy Severe SWELLING Verified 09/21/24 15:55 OF FACE AND MOUTH colestipol Allergy Intermediate RASH Verified 09/21/24 15:55 doxycycline Allergy Intermediate HIVES Verified 09/21/24 15:55 glimepiride Allergy Intermediate RASH Verified 09/21/24 15:55 glyburide Allergy Intermediate RASH Verified 09/21/24 15:55 metformin Allergy Intermediate RASH Verified 09/21/24 15:55 pioglitazone Allergy Intermediate RASH Verified 09/21/24 15:55 rosuvastatin Allergy Intermediate ITCHING Verified 09/21/24 15:55 RASH ondansetron [From Zofran] Allergy Unknown Unknown Verified 09/21/24 15:55 amitriptyline [From Elavil] AdvReac Intermediate WT GAIN Verified 09/21/24 15:55 diphenhydramine AdvReac Intermediate HEAD GOES Verified 09/21/24 15:55 CRAZY-RINGING EARS,STRANGE hydroxyzine AdvReac Intermediate MENTAL Verified 09/21/24 15:55 CONFUSION melatonin AdvReac Intermediate Causes Verified 09/21/24 15:55 insomnia and makes me wide awake pseudoephedrine AdvReac Intermediate JITTERINESS Verified 09/21/24 15:55 tramadol AdvReac Intermediate EARS RING, Verified 09/21/24 15:55 FUZZY VISION sulfamethoxazole AdvReac Unknown Unknown Verified 09/21/24 15:55 [From Bactrim] trimethoprim [From Bactrim] AdvReac Unknown Unknown Verified 09/21/24 15:55 Home Medications Medication Instructions Recorded Confirmed Type methscopolamine 2.5 mg tablet 2.5 mg PO TID PRN ABD CRAMPS 05/03/18 09/21/24 History diclofenac sodium 1 % topical gel 2 g topical QID PRN joint pain 07/22/18 09/21/24 History fluticasone furoate 100 1 inh inhalation QAM 07/22/18 09/21/24 History mcg-vilanterol 25 mcg/dose inhalation powder (Breo Ellipta) aspirin 81 mg chewable tablet 81 mg PO QAM 09/14/21 09/21/24 History atorvastatin 40 mg tablet 40 mg PO QAM 09/14/21 09/21/24 History clonazepam 0.5 mg tablet 0.5 mg PO .1-2XDAILY Anxiety 09/14/21 09/21/24 History famotidine 40 mg tablet 40 mg PO QAM 09/14/21 09/21/24 History fluticasone propionate 50 2 spray intranasal BID 09/14/21 09/21/24 History mcg/actuation nasal spray,suspension metoprolol succinate 25 mg See Rx Instructions .Route .COMPLEX 09/14/21 09/21/24 History tablet,extended release 24 hr montelukast 10 mg tablet 10 mg PO QAM 09/14/21 09/21/24 History pramipexole 1 mg tablet 1 mg PO HS 09/14/21 09/21/24 History ferrous gluconate 240 mg (27 mg 240 mg PO Q OTHER DAY 12/12/22 09/21/24 History iron) tablet (Ferate) pantoprazole 40 mg tablet,delayed 40 mg PO BID #60 tabs 12/22/22 09/21/24 Rx release budesonide 0.5 mg/2 mL suspension 0.5 mg inhalation BID 06/19/23 09/21/24 Hi story for nebulization conjugated estrogens 0.625 mg/gram 1 applic vaginal 3XWK 06/19/23 09/21/24 History vaginal cream (Premarin) doxepin 150 mg capsule 150 mg PO HS 06/19/23 09/21/24 History insulin aspart U-100 100 unit/mL 10 unit subcut TIDM 06/19/23 09/21/24 History (3 mL) subcutaneous pen (Novolog FlexPen U-100 Insulin aspart) Calcium/Vitamin D/Zinc Supp. 1 tab PO BID 09/21/24 09/21/24 History acetaminophen 500 mg tablet 1,000 mg PO BID 09/21/24 09/21/24 History (Tylenol Extra Strength) albuterol sulfate 2.5 mg/3 mL 2.5 mg inhalation Q4H PRN 09/21/24 09/21/24 History (0.083 %) solution for nebulization Shortness Of Breath Or Wheezing albuterol sulfate 90 mcg/actuation 1 - 2 inh inhalation Q4H PRN 09/21/24 09/21/24 History aerosol inhaler Shortness Of Breath Or Wheezing amoxicillin 875 mg tablet 875 mg PO BID 09/21/24 09/21/24 History ascorbic acid (vitamin C) 500 mg 500 mg PO BID 09/21/24 09/21/24 History tablet (Vitamin C) benzonatate 100 mg capsule 100 mg PO TID PRN Cough 09/21/24 09/21/24 History bupropion HCl 100 mg tablet,12 hr 100 mg PO QAM 09/21/24 09/21/24 History sustained-release (Wellbutrin SR) calcitonin (salmon) 200 200 unit intranasal (ALT) QAM 09/21/24 09/21/24 History unit/actuation nasal spray diphenoxylate-atropine 2.5 2 tab PO Q6H PRN Diarrhea 09/21/24 09/21/24 History mg-0.025 mg tablet (Lomotil) dulaglutide 3 mg/0.5 mL 3 mg subcut WK 09/21/24 09/21/24 History subcutaneous pen injector (Trulicity) epinephrine 0.3 mg/0.3 mL 0.3 mg IM DIRECTED PRN Allergic 09/21/24 09/21/24 History injection, auto-injector (EpiPen) Reaction furosemide 20 mg tablet (Lasix) 20 mg PO BID 09/21/24 09/21/24 History insulin glargine 100 unit/mL (3 28 unit subcut QAM 09/21/24 09/21/24 History mL) subcutaneous pen (Lantus Solostar U-100 Insulin) molnupiravir 200 mg capsule (EUA) 800 mg PO Q12H 09/21/24 09/21/24 History multivitamin 1 tab PO DAILY 09/21/24 09/21/24 History propylene glycol 0.6 % eye drops 1 drp OPB QID 09/21/24 09/21/24 History (Systane Complete) triamcinolone acetonide 0.1 % 1 applic topical BID PRN SKIN 09/21/24 09/21/24 History topical ointment IRRITATIONS Past Med/Surg History Problem List CKD (chronic kidney disease), stage III Anemia of chronic disease Acute sinusitis Chest pain (Acute) Acute blood loss anemia Pyelonephritis Bacteremia due to Klebsiella pneumoniae Septic shock Diarrhea Metabolic acidosis Hyponatremia Severe sepsis DVT prophylaxis Hypoxia (Acute) SOB (shortness of breath) (Acute) Asthma exacerbation (Acute) COVID-19 (Acute) RLS (restless legs syndrome) KATERIN (obstructive sleep apnea) CKD (chronic kidney disease) stage 3, GFR 30-59 ml/min Morbid obesity History of difficult intubation RIGHT SHOULDER SCOPE WITH RCR= 06/29/16= GLIDESCOPE #3 "GOOD VIEW", ETT 7 AT [facility] History of opioid abuse PER RECORDS Hypertension Anxiety Dyslipidemia Osteoporosis IBS (irritable bowel syndrome) DM type 2 (diabetes mellitus, type 2) IDDM Venous insufficiency GERD (gastroesophageal reflux disease) DJD (degenerative joint disease), cervical Depression Panic disorder S/P hysterectomy H/O colonoscopy S/P cholecystectomy H/O arthroscopic knee surgery LEFT Medical History DAVONTE (acute kidney injury) Pulmonary HTN 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 Neuropathy DIABETIC NEUROPATHY- FEET Chronic back pain LOWER Osteoarthritis Temporomandibular joint disorder + CLICKING; NO LOCKING Diverticular disease GERD (gastroesophageal reflux disease) CONTROLLED Asthma moderate persistent Migraine Surgical History Perianal abscess S/P DRAINAGE History of repair of rotator cuff B/L History of esophagogastroduodenoscopy (EGD) History of colonoscopy 02/2021, sigmoid diverticulosis, poor prep History of total knee replacement LEFT Family History Sister Family history of diabetes mellitus Family hx of colon cancer Brother Family history of diabetes mellitus Grandmother (Maternal) Family history of diabetes mellitus Family/Other Family history of diabetes mellitus Other Diabetes Social History Smoking Status: Never smoker Second Hand Exposure: No; Do You Dip or Chew Tobacco: No; Hx Alcohol Use: No Hx Substance Use: No Preferred Language: Sammarinese Communication Ability: Effective Securities Lending Trader Required: No Beliefs That Will Affect Care: None marital status: Current Living Situation: Spouse Current Living Situation Comment: home current occupational status: retired Feels Safe at Home: Yes Assistive Devices: Cane and Walker Review of Systems Review of Systems: At least ten systems reviewed and negative, except as noted in the HPI. Physical Exam Physical Exam: General: Obese, F. NAD. Sitting up in bed. Very pleasant. A&Ox4. present at bedside. HEENT: Normocephalic, atraumatic. Conjunctivae normal. External ear/nose normal, oropharynx normal. Dry lips. Respiratory: Normal respiratory effort, lungs clear to auscultation bilaterally. No accessory muscle use. On RA. Cardiovascular: Regular rate and rhythm. Normal peripheral pulses. No murmurs. BLE compression stocking in place. Abdomen/GI: Normal bowel sounds, soft. Obese abdomen. Nontender to palpation in all quadrants. Extremities/Musculoskeletal: No cyanosis or clubbing. Extremities motor strength intact, actively moves all extremities. Neurologic: No overt focal deficits, CN's II-XI not formally tested but appear grossly intact bilaterally. Results & Data Results & Data Vital Signs (Past 12 Hours) Vital Signs Temp Pulse Pulse Resp BP BP Pulse Ox 09/21/24 15:41 65 19 98/66 L 98 09/21/24 13:59 82 19 97 09/21/24 13:59 36.5 C 82 19 148/78 H 97 09/21/24 13:59 97 09/21/24 13:59 36.5 C 82 19 148/78 H 97 09/21/24 13:56 79 O2 Del Method 09/21/24 15:41 Room Air 09/21/24 13:59 Room Air 09/21/24 13:59 Room Air 09/21/24 13:59 Room Air 09/21/24 13:59 Room Air 09/21/24 13:56 Laboratory Results Short CBC 09/21/24 Range/Units 13:18 WBC 6.93 (4.8-10.8) K/ul Hgb 13.2 (12.0-16.0) g/dl Hct 39.2 (37.0-47.0) % Plt Count 285 (130-400) K/uL BMP 09/21/24 13:18 Sodium 138 Potassium 3.1 L Chloride 100 Carbon Dioxide 29 BUN 16 Creatinine 1.29 H Glucose 159 H Calcium 9.3 Liver Function 09/21/24 Range/Units 13:18 Total Bilirubin 0.6 (0.2-1.0) mg/dl AST 15 (13-39) U/L ALT 13 (7-52) U/L Alkaline Phosphatase 116 H (34-104) U/L Albumin 4.2 (3.4-5.0) gm/dl Diagnostic Findings Chest X-Ray 09/21/24 13:59 XR chest 1V portable CLINICAL HISTORY: Chest pain, nonspecific COMPARISON STUDY: Chest radiograph June 19, 2023. FINDINGS: Calcific densities suggestive of joint bodies within the left glenohumeral joint are again noted. Lung volumes are mildly diminished. There is no pneumothorax or pleural effusion. Interstitial thickening is present. This may be technical. Cardiomediastinal silhouette is stable. No consolidation is identified. IMPRESSION: 1. Subtle interstitial thickening. This may be related to a hypoventilatory study or represent pulmonary vascular congestion. 2. No consolidation to suggest pneumonia. ACT 112: Negative or not required by law. Electronically signed by: Nolan Gastelum M.D. 09/21/2024 2:24 PM Medications Administered Discontinued Medications Promethazine HCl (Phenergan) 12.5 mg in 50.5 mls @ 202 mls/hr IV NOW STA Stop: 09/21/24 18:15 Last Admin: 09/21/24 18:24 Dose: 202 mls/hr Documented By: RADHA Potassium Chloride (Potassium Chloride Crtab 20 Meq Tabcr) 40 meq PO NOW STA Stop: 09/21/24 16:34 Last Admin: 09/21/24 17:13 Dose: 40 meq Documented By: MNE Code Status & VTE Plan Code Status FULL CODE Supervising Physician Co-Signing Physician Notes Patient seen and examined independently. Discussed with above provider. Keya mayer presents with left-sided chest pain with radiation to the jaw. Chest pain resolved with nitroglycerin. Continue on aspirin, Lipitor. Trend troponin; consult cardiology for possible stress test in the AM. I have reviewed the advanced practitioner's documentation, and I agree with, and take responsibility for the plan of care I spent a total of 30 minutes coordinating, documenting, and providing care for this patient excluding time spent in the performance of separately billed services. All of the aforementioned completed while collaborating with the assigned advanced practitioner for a full treatment plan (1) Chest pain Chest pain type: unspecified Qualified Code(s): R07.9 - Chest pain, unspecified (2) Acute sinusitis Recurrence: not specified as recurrent Sinusitis location: unspecified location Qualified Code(s): J01.90 - Acute sinusitis, unspecified (4) Hypertension Hypertension type: unspecified Qualified Code(s): I10 - Essential (primary) hypertension (5) DM type 2 (diabetes mellitus, type 2) Diabetes mellitus complication detail: with diabetic retinopathy Diabetes mellitus complication status: with ophthalmic complications Diabetes mellitus intermediate insulin use: with terminal supervisor use Diabetes mellitus macular edema: macular edema presence unspecified Diabetic retinopathy severity: with unspecified retinopathy severity Laterality: bilateral Qualified Code(s): E11.319 - Type 2 diabetes mellitus with unspecified diabetic retinopathy without macular edema; Z79.4 - [facility] (current) use of insulin (6) Asthma Asthma complication type: unspecified Asthma persistence: unspecified Asthma severity: unspecified severity Qualified Code(s): J45.909 - Unspecified asthma, uncomplicated (7) CKD (chronic kidney disease), stage III Chronic kidney disease stage 3 subtype: unspecified whether 3a or 3b Qualified Code(s): N18.30 - Chronic kidney disease, stage 3 unspecified
[2024-09-21] MEDS: POTASSIUM CHLORIDE CRTAB 20 MEQ TABCR PO STA (17:13)
[2024-09-21] MEDS ORDERED: ALBUTEROL 0.083% NEBU SOLN 3 ML VIAL INH PRN (18:15)
[2024-09-21] MEDS ORDERED: METOPROLOL SUCC 25MG EXT REL TAB PO SCH (18:15)
[2024-09-21] MEDS: PROMETHAZINE 12.5 MG/50.5 ML BAG IV STA (18:24)
[2024-09-21] MEDS: ACETAMINOPHEN 500 MG TAB PO STA (19:45)
[2024-09-21] MEDS: BUDESONIDE 0.5 MG/2 ML VIAL (PULMICORT) INH SCH (20:14)
[2024-09-21] MEDS ORDERED: PROMETHAZINE 6.25 MG/50.25 ML BAG IV PRN (21:39)
[2024-09-21] MEDS ORDERED: DEXTROSE 50% 50 ML SYRINGE IV PRN (21:39)
[2024-09-21] MEDS ORDERED: CARBOHYDRATES FOR HYPOGLYCEMIA PO PRN (21:39)
[2024-09-21] MEDS ORDERED: GLUCOSE 40% GEL 15 GM TUBE PO PRN (21:39)
[2024-09-21] MEDS ORDERED: POLYETHYLENE (MIRALAX) 17 GM PACK PO PRN (21:39)
[2024-09-21] MEDS ORDERED: GLUCAGON FOR INJ 1 MG VIAL SQ PRN (21:39)
[2024-09-21] MEDS ORDERED: PHARMACY GLYCEMIC MGMT CONSULT PRN (21:39)
[2024-09-21] MEDS ORDERED: MAGNESIUM HYDROXIDE SUSP 30 ML UDC PO PRN (21:39)
[2024-09-21] MEDS ORDERED: GLUCOSE 10 TAB/TUBE PO PRN (21:39)
[2024-09-21] MEDS ORDERED: NITROGLYCERIN SL 0.4 MG/TAB TAB SL PRN (21:39)
[2024-09-21] MEDS: PRAMIPEXOLE DIHYDROCHLO 0.5 MG TAB PO SCH (22:00)
[2024-09-21] MEDS: PANTOprazole 40 MG TAB PO SCH (22:00)
[2024-09-21] MEDS: ASCORBIC ACID 500 MG TAB PO SCH (22:00)
[2024-09-21] MEDS: AMOXICILLIN 875 MG TAB PO SCH (22:01)
[2024-09-21] MEDS: DOXEPIN HCL 75 MG CAPSULE PO SCH (22:01)
[2024-09-21] MEDS: FUROSEMIDE 20 MG TAB PO SCH (22:02)
[2024-09-21] MEDS: FLUTICASONE PROPIONATE NA SPR 16 GM BTL SCH (22:02)
[2024-09-21] MEDS: ARTIFICIAL TEARS OP SCH (22:14)
[2024-09-21] MEDS: METOPROLOL SUCC 25MG EXT REL TAB PO SCH (22:16)
[2024-09-21] MEDS: HEPARIN SOD 5,000 UNIT/0.5 ML VIAL SQ SCH (22:16)
[2024-09-21] MEDS: INSULIN ASPART PER UNIT CHARGE SC SCH (22:17)
--- OUTSIDE RECORDS SUMMARY | 2024-09-21 22:33 | External Medical Summary ---
Author Name Unknown Address Unknown Organization K01:[facility] [place] - [address] [facility] [id number] Laboratory Report Ordering Provider Test Date Status 09/15/2024 08:06:47 Final Observation Date Value Abnormality Reference (Units ) Status HbA1C 09/15/2024 08:06:47 7.1 Above high normal 4. 0-5.6 (%) Final The use of HbA1c to monitor glycemic status is based on normal hemoglobin and HbA composition. This test should not be used in patients with abnormal hemoglobin that affects the half life of the red blood cell or the in vivo glycation rates. Glucose, estimated average 09/15/2024 08:06:47 157 Above high normal <126 (mg/dL) Spencer galvez Performing Location [facility] [place] [facility] [address] [place] [address]
--- OUTSIDE RECORDS SUMMARY | 2024-09-21 22:33 | External Medical Summary | Summary of Care ---
Author Name Unknown Organization [facility] Address [address] [place] [address] Phone [phone] Care Team Providers Care Line Fixer Name Role Phone Phuc Grider MD Primary Care Provider [phone] Reason for Visit * Reason Onset Date Comments Appointment 09/15/2024 Encounter Details Date Type Department Care Team (Late st Contact Info) Description 09/15/2024 Telephone Hematology/Oncology [facility] [address] [facility] [place] [id number] Henok Stauffer MD [address] [place] [address] Appointment Allergies Active Allergy Reactions Criticality Noted Date [...] as of this encounter (statuses as of 09/15/2024) Medications Spacer/Aero-Holding Chambers DEVIIndications:Mod erate persistent asthma without complication Use with inhaler. 1 Device 07/10/19 19 Active multivitamin (MVI) Tablet TAKE 1 TABLET BY MOUTH EVERY DAY FOR SUPPLEMENT 1 09/18/19 19 Active ONETOUCH DELICA LANCETS FINE MISC Use up to four times a day as directed DX E11.9 400 Each 3 04/16/20 19 Active Doxepin HCl 150 MG Oral Capsule Take 1 Capsule by mouth at bedtime. 08/11/19 21 Active Systane Complete 0.6 % Ophthalmic Solution (Propylene Glycol) Instill 1 Drop into both eyes in the morning and 1 Drop at noon and 1 Drop in the evening and 1 Drop before bedtime. Active Proventil HFA 108 (90 Base) MCG/ACT Inhalation Aerosol Solution Inhale 1-2 Puffs by mouth 4 times a day as needed for Shortness of Breath or Wheezing. As needed Active EpiPen 2-Ronni 0.3 MG/0.3ML Injection Solution Auto-injectorIndica tions:Allergy, subsequent encounter For a severe reaction: Place orange end against the outer thigh, press firmly, hold in place for 10 seconds and go to the Emergency room. 2 Each 3 09/07/19 23 Active Vitamin C 500 MG Oral Capsule Take 1 Capsule by mouth in the morning and 1 Capsule before bedtime. Active OneTouch Verio In Vitro Strip (Glucose Blood)Indications:T ype 2 diabetes mellitus with stage 3b chronic kidney disease, with long-term current use of insulin (HCC) Use up to 3 times a day E11.9 400 Strip 5 04/17/20 Active [employer] UltraSoft LancetsIndications: Type 2 diabetes mellitus with stage 3b chronic kidney disease, with long-term current use of insulin (HCC) Use as directed 4 times a day. Use up to four times a day as directed to check blood glucose E 11.9 400 Each 5 04/17/20 Active BD Pen Needle Mini U/F 31G X 5 MM (Insulin Pen Needle)Indications: Type 2 diabetes mellitus with diabetic nephropathy, with long-term current use of insulin (HCC) USE DIRECTED WITH NOVOLOG 300 Each 1 05/10/2023 6:19 PM EST 05/09/20 Active Fluticasone Furoate-Vilanterol 100-25 MCG/ACT Inhalation Aerosol Powder Breath Activated (BREO ellipta)Indications :Moderate persistent asthma without complication INHALE 1 PUFF BY MOUTH EVERY DAY 180 Each 3 09/04/2023 5:45 PM EDT 05/09/20 Active Budesonide 0.5 MG/2ML Inhalation Suspension (Pulmicort)Indicati ons:Acute respiratory disease due to COVID-19 virus INHALE VIA NEBULIZER 1 VIAL IN THE MORNING AND 1 VIAL BEFORE BEDTIME 360 mL 3 09/04/2023 5:45 PM EDT 05/09/20 Active Fluticasone Propionate 50 MCG/ACT Nasal Suspension (Flonase)Indication s:LRTI (lower respiratory tract infection),Moderate persistent asthma with acute exacerbation,Acute URI Administer 2 Sprays into each nostril in the morning and 2 Sprays before bedtime. 48 g 3 09/17/2023 3:16 PM EDT 05/09/20 Active Ostrovok Verio Flex System w/Device Kit USE 1 DEVICE DIRECTED EVERY EVENING. UP TO 4 TIMES A DAY TO CHECK BLOOD GLUCOSE E11.9 04/17/20 Active Dexcom G7 Ramp Lead Device Use as directed. Active Dexcom G7 Sensor Use as directed. Active Triamcinolone Acetonide 0.1 % External Ointment (Aristocort) Apply topically to affected area 2 times a day 80 g 5 10/18/2023 12:34 PM EDT 07/11/19 Active clonazePAM 0.5 MG Oral Tablet (KlonoPIN) Take 1 Tablet by mouth 3 times a day as needed. 03/13/20 24 Active Calcium-Cholecalcif dayton-Zinc 650-20-5.5 MG-MCG-MG Oral Tablet Chewable Take 1 Tablet by mouth in the morning and 1 Tablet before bedtime. Active Acetaminophen 500 MG Oral Tablet (Tylenol) Take 2 Tablets by mouth 2 times a day. Active Calcitonin (Sutton) 200 UNIT/ACT Nasal Solution Administer 1 Yermo into one nostril in the morning. alternate nostrils.. 3 mL 11 09/25/19 24 Active buPROPion HCl ER (SR) 100 MG Oral Tablet Extended Release 12 Hour (Wellbutrin SR) Take 1 Tablet by mouth in the morning. Active Pantoprazole Sodium 40 MG Oral Tablet Delayed Release (Protonix)Indicatio ns:Gastroesophageal reflux disease with esophagitis without hemorrhage TAKE 1 TABLET IN THE MORNING AND BEFORE BEDTIME 180 Tablet 3 02/16/20 24 Active Molnupiravir 200 MG Oral CapsuleIndications: Person under investigation for COVID-19,Pneumonia due to suspected gram-negative bacteria Take 4 Capsules by mouth in the morning and 4 Capsules before bedtime. 40 Capsule 04/14/20 24 Active Methscopolamine Austin 2.5 MG Oral TabletIndications:I rritable bowel syndrome with diarrhea TAKE 1 TAB UP TO 3 TIMES DAILY NEEDED FOR ABDOMINAL CRAMPS & DIARRHEA, 270 Tablet 1 05/04/20 24 Active Aspirin 81 MG Oral Tablet Chewable (Aspirin Low Dose)Indications:Ty pe 2 diabetes mellitus with diabetic nephropathy, with long-term current use of insulin (HCC) CHEW 1 TABLET BY MOUTH EVERY DAY 90 Tablet 3 05/02/20 24 Active Atorvastatin Calcium 40 MG Oral Tablet (Lipitor)Indication s:Dyslipidemia, goal LDL below 70 TAKE 1 TABLET BY MOUTH EVERY DAY IN THE MORNING 90 Tablet 3 05/02/20 24 Active Premarin 0.625 MG/GM Vaginal Cream (Estrogens Conjugated)Indicati ons:Vaginal atrophy ADMINISTER 0.5 G INTO THE VAGINA AT BEDTIME. DO THIS 3 EVENINGS PER WEEK 30 g 5 05/12/20 24 Active Montelukast Sodium 10 MG Oral Tablet (Singulair)Indicati ons:Moderate persistent asthma without complication TAKE 1 TABLET BY MOUTH EVERY DAY 90 Tablet 3 05/18/20 24 Active Famotidine 40 MG Oral Tablet (Pepcid)Indications :Gastroesophageal reflux disease with esophagitis without hemorrhage TAKE 1 TABLET BY MOUTH EVERY DAY IN THE MORNING 90 Tablet 3 05/18/20 24 Active Diphenoxylate-Atrop ine 2.5-0.025 MG Oral Tablet (Lomotil)Indication s:Irritable bowel syndrome with diarrhea Take 2 Tablets by mouth every 6 hours as needed for Diarrhea. 30 Tablet 11 05/28/19 25 Active Diclofenac Sodium 1 % External Gel (Voltaren)Indicatio ns:Right knee pain, unspecified chronicity PLACE 4 GRAMS TOPICALLY ON THE SKIN TWICE DAILY DIRECTED 300 g 4 06/02/19 25 Active Metoprolol Succinate ER 25 MG Oral Tablet Extended Release 24 Hour (toPROL XL)Indications:PVC' s (premature ventricular contractions) TAKE 1 TAB BY MOUTH EVERY MORNING AND ONE-HALF TAB AT BEDTIME. 135 Tablet 1 06/15/19 25 Active Furosemide 20 MG Oral Tablet (Lasix) Take 1 Tablet by mouth in the morning and 1 Tablet before bedtime. 08/26/19 25 Active Benzonatate 100 MG Oral Capsule Take 1 Capsule by mouth 3 times a day as needed for Cough. 30 Capsule 08/29/19 25 Active Trulicity 3 MG/0.5ML Subcutaneous Solution Auto-injector (Dulaglutide)Indica tions:Type 2 diabetes mellitus with hemoglobin A1c goal of less than 8.0% (HCC) Inject 3 mg under the skin once a week. Replaces ozempic 6 mL 09/10/19 25 Active Pramipexole Dihydrochloride 1 MG Oral Tablet (Mirapex)Indication s:Right knee pain, unspecified chronicity TAKE 1 TABLET BY MOUTH EVERYDAY AT BEDTIME 90 Tablet 1 09/12/19 25 Active Ferate 240 (27 Fe) MG Oral Tablet (Ferrous Gluconate) TAKE 1 TABLET BY MOUTH EVERY DAY 90 Tablet 1 09/12/19 25 Active Insulin Glargine Solostar 100 UNIT/ML Subcutaneous Solution Pen-injector (Lantus SoloStar)Indication s:Type 2 diabetes mellitus with hemoglobin A1c goal of less than 8.0% (HCC) Inject 28 Units under the skin daily. 30 mL 4 09/12/19 25 Active NovoLOG FlexPen 100 UNIT/ML Subcutaneous Solution Pen-injector (insulin aspart)Indications: Type 2 diabetes mellitus with hemoglobin A1c goal of less than 8.0% (HCC) Inject 10 Units under the skin in the morning and 10 Units at noon and 10 Units in the evening. Inject with meals. 30 mL 4 09/12/19 25 Active Amoxicillin 875 MG Oral TabletIndications:A cute non-recurrent frontal sinusitis Take 1 Tablet by mouth in the morning and 1 Tablet before bedtime. Do all this for 7 days. 14 Tablet 09/15/19 25 025 Active Hospital, Clinic, or Other Facility Administered Medication Ordered Dose Route Frequency Start Date End Date Status albuterol sulfate (PROVENTIL) (2.5 MG/3ML) 0.083% inhalation solution 2.5 mgIndications:Moderate persistent asthma without complication 2.5 mg NEBULIZER Q4H PRN 08/13/2018 Active documented as of this encounter (statuses as of 09/15/2024) Active Problems Patient Care Coordination No te Formatting of this note migh t be different from the original. Patient's 'Red Flags': 1. N/v/diarrhea 2. Decreased urine output 3. Unable to get out of bed Problem Noted Date Diagnosed Date Major depressive disorder, recurrent, moderate 0 09/14/2024 Generalized anxiety disorder 09/14/2024 Dyslipidemia, goal LDL below 100 09/14/2024 Type 2 diabetes mellitus wit h both eyes affected by mild nonproliferative retinopathy without macular edema, with long-term current use of insulin 03/25/2024 Type 2 diabetes mellitus wit h diabetic cataract, with long-term current use of insulin 03/25/2024 Type 2 diabetes mellitus wit h stage 3a chronic kidney disease, with long-term current use of insulin 01/09/2024 Assessment & Plan (01/09/2024 2:17 PM EDT): "RED FLAG" Diabetic symptoms: Generalized Weakness Goal HgbA1c <8 Diabetic Complications Renal (example: CKD, Proteinuria, Dialysis) Medication Regimen Basal/Long Acting Insulin Bolus/Short Acting Insulin GLP-1 Agonist (ex: Victoza, Trulicity, Ozempic) DM Secondary Prevention Moderate-High Intensity Statin Aspirin Additional Comments Followed by MTM-hemoglobin A1c 6.4 Osteoarthritis of spine with radiculopathy, thor acic region 01/09/2024 Assessment & Plan (01/09/2024 2:19 PM EDT): Followed by interventional pain management-MRI was ordered but she can not afford co-pay right now. Feels okay unless she coughs or sneezes. Uses heating pad and intermittent Tylenol. Depression with anxiety 09/25/2023 Assessment & Plan (01/09/2024 2:21 PM EDT): Followed by psych--reports she was started on wellbutrin for depression this month. She was worried about the dose being too high. She contacted pcp who is following. She lowered dose to 100mg daily on her own. Feels her depression is improved. She does not like to take new medications. Anemia, chronic disease 03/26/2023 Assessment & Plan (01/09/2024 2:20 PM EDT): Followed by hematology--most recent visit they noted she was stable--hemoglobin 13.9 Assessment & Plan (03/26/2023 1:51 PM EDT): Followed by hematology Hypertensive kidney disease with stage 3b chronic kidney disease 01/07/2023 Overview: Per CKD protocol Assessment & Plan (01/09/2024 2:21 PM EDT): BP at goal on metoprolol Following with nephrology Baseline creatinine 1.2 Assessment & Plan (06/26/2023 2:29 PM EST): BP at goal on metoprolol Following with nephrology D/c creat not noted on discharge summary. Pt sees pcp this week and will get repeat labs PVC's (premature ventricular contractions) 10/14 PTSD (post-traumatic stress disorder) 10/14/2020 Persistent insomnia 10/05/2020 KATERIN (obstructive sleep apnea) 11/13/2019 Assessment & Plan (01/09/2024 2:18 PM EDT): Continues nocturnal oxygen 3-4 L does not tolerate BiPAP/CPAP Assessment & Plan (03/26/2023 1:55 PM EDT): Reports she does not tolerate BIPAP Assessment & Plan (01/03/2023 1:52 PM EDT): Prescribed Bipap- patient does not use it Has not used in over 1.5 years Medical marijuana use 11/13/2019 Primary pulmonary hypertension 11/04/2018 Assessment & Plan (06/26/2023 2:32 PM EST): Continue diuretic Assessment & Plan (03/26/2023 1:54 PM EDT): Continue diuretic Assessment & Plan (01/03/2023 10:20 AM EDT): Controlled with current lasix 40 mg daily Follows with cardiology Type 2 diabetes mellitus wit h hemoglobin A1c goal of less than 8.0% 11/04/2018 Moderate persistent asthma without complication 07/10/2018 Assessment & Plan (01/09/2024 2:18 PM EDT): singulair daily breo daily pulmicort nebs BID PFT 2019 Has rescue inhaler uses very seldom Cannot use albuterol nebs d/t hear racing and increased anxiety Assessment & Plan (06/26/2023 2:32 PM EST): singulair daily breo daily pulmicort nebs BID PFT 2019 Has rescue inhaler uses very seldom Cannot use albuterol nebs d/t hear racing and increased anxiety Assessment & Plan (03/26/2023 1:54 PM EDT): singulair daily breo daily pulmicort nebs BID PFT 2019 Has rescue inhaler uses very seldom Cannot use albuterol nebs d/t hear racing and increased anxiety Assessment & Plan (01/03/2023 1:57 PM EDT): singulair daily breo daily pulmicort nebs BID PFT 2019 Has rescue inhaler uses very seldom Cannot use albuterol nebs d/t hear racing and increased anxiety Restless legs syndrome 07/10/2018 HTN, goal below 130/80 08/01/2015 Overview: Per HTN Protocol #27. Gastroesophageal reflux dise ase with esophagitis without hemorrhage 01/16/2012 Assessment & Plan (01/03/2023 12:18 PM EDT): protonix 40 mg BID Obesity, Class II, BMI 35-39.9, isolated (see ac tual BMI) 08/18/2009 Overview (08/18/2009): Per Obesity Taxonomy Irritable bowel syndrome documented as of this encounter (statuses as of 09/15/2024) Resolved Problems Problem Noted Date Diagnosed Date Resolved Date Morbid (severe) obesity due to excess calories 08/13/2023 09/25/2023 Type 2 diabetes mellitus wit h stage 3b chronic kidney disease, with long-term current use of insulin 06/25/2023 09/25/2023 Assessment & Plan (06/26/2023 2:36 PM EST): "RED FLAG" Diabetic symptoms: Generalized Weakness Goal HgbA1c <8 Diabetic Complications Renal (example: CKD, Proteinuria, Dialysis) Opthalmologic Medication Regimen Basal/Long Acting Insulin Bolus/Short Acting Insulin GLP-1 Agonist (ex: Victoza, Trulicity, Ozempic) DM Secondary Prevention Moderate-High Intensity Statin Aspirin Routine Podiatry Care Yearly Diabetic Eye Exam Additional Comments Hgba1c 6.9 Pulmonary hypertension, unspecified 01/24/2023 06/26/2023 Type 2 diabetes mellitus wit h stage 3b chronic kidney disease, with long-term current use of insulin 01/07/2023 03/26/2023 Overview: Per CKD protocol Chronic kidney disease, stage 3b 01/07/2023 09/25/2023 Overview: Per CKD protocol Cardiogenic shock 01/03/2023 01/03/2023 Dyslipidemia, goal LDL below 70 03/06/2022 09/25/2023 Assessment & Plan (06/26/2023 2:23 PM EST): Continue atorvastatin History of COVID-19 02/15/2022 09/25/19 24 Acute respiratory disease du e to COVID-19 virus 09/22/2021 02/15/2022 Type 2 diabetes mellitus wit h mild nonproliferative retinopathy of both eyes without macular edema 08/22/2021 09/25/2023 Unspecified mood (affective) disorder 08/22/2021 09/25/2023 Panic disorder 08/22/2021 09/25/2023 KARI (generalized anxiety disorder) 10/14/2020 09/25/2023 Chronic kidney disease, stage 3a 10/04/2020 01/10/2023 Overview: Per CKD protocol Type 2 diabetes mellitus wit h stage 3a chronic kidney disease, with long-term current use of insulin 10/04/2020 06/25/2023 Overview: Per CKD protocol Assessment & Plan (03/26/2023 1:56 PM EDT): Current Status: "Stable" for patient / At [...] - [facility] 7.6 (H) 05/06/2019 11:23 AM Assessment & Plan (01/03/2023 12:20 PM EDT): Current Status: "Stable" for patient / At [...] (H) 05/06/2019 11:23 AM Major depressive disorder, r ecurrent, moderate 08/15/2020 09/25/2023 Assessment & Plan (06/26/2023 2:32 PM EST): Stable today Not currently on antidepressants. Continue to monitor. Unspecified mood (affective) disorder 08/15/2020 10/14/2020 Iron metabolism disease 08/15/202005/29 Hypertensive kidney disease with stage 3a chronic kidney disease 04/04/2020 01/10/2023 Overview: Per CKD protocol - HTN + CKD III - conditions have assumed relationship per current coding guidelines. Assessment & Plan (01/03/2023 1:54 PM EDT): Current Status: "Stable" for patient / At [...] long-term current use of insulin 10/27/2019 10/06/2020 Overview (10/27/2019): DM2 + CKD III - conditions have assumed relationship per current coding guidelines. Hypertensive kidney disease with chronic kidney disease stage III 10/27/2019 04/07/2020 Overview (10/27/2019): HTN + CKD III - conditions have assumed relationship per current coding guidelines. Ganglion cyst of volar aspect of left wrist 07/01/2019 09/25/2023 Kidney disease, chronic, sta ge III (GFR 30-59 ml/min) 06/08/2019 11/05/2019 Overview: Per CKD protocol Type 2 diabetes mellitus wit h diabetic nephropathy, with long-term current use of insulin 11/04/2018 09/25/2023 Current use of insulin 07/10/201810/14 Body mass index (BMI) of 40. 0 to 44.9 in adult 06/09/2018 10/27/2019 Overview (10/27/2019): Per Obesity protocol #1 Duplicate. Primary osteoarthritis of right knee 06/05/2018 11/13/2019 Type II diabetes mellitus wi th neurological manifestations 06/05/2018 09/25/2023 Acute adjustment disorder with anxiety 04/07/2018 10/14/2020 [...] 10/17/2016 02/03/20 17 MEDICATION USE AGREEMENT 06/04/2014 Overview (06/04/2014): Signed 06/04/2014 Pranav Sanchez MD [facility] [place] Spinal pain 06/04/2014 02/02/2017 Type 2 diabetes mellitus wit h hemoglobin A1c goal of 7.0%-8.0% 05/13/2014 10/14/2020 Overview (09/22/2015): ICD-10 update of inactive term Spinal pain 05/13/2014 06/04/2014 DM type 2 causing renal disease 06/16/2012 10/14/2020 HTN, GOAL BELOW 140/80 01/14/201208/31 Overview: Per HTN Protocol #27. Acute cystitis 06/12/2010 03/09/2011 HTN, GOAL BELOW 130/80 06/22/200901/16 Overview (06/22/2009): Per HTN Taxonomy. Dyslipidemia 05/11/2009 08/09/2022 Overview (05/11/2009): Per Lipid Taxonomy. Type 2 diabetes mellitus wit h hemoglobin A1c goal of less than 7.0% 03/24/2009 06/16/2012 Overview (09/20/2015): Per Diabetes Taxonomy. ICD-10 update of inactive term Type 2 diabetes mellitus wit h hemoglobin A1c goal of less than 7.0% 08/20/2006 03/24/2009 Overview (09/20/2015): Per Diabetes Taxonomy. ICD-10 update of inactive term ADVANCE DIRECTIVE INFORMATION 01/08/2006 03/09/2011 Overview (01/08/2006): Pt declines booklet. Carpal tunnel syndrome 09/11/200503/09 HTN, goal below 140/90 07/11/200509/06 Overview (06/22/2009): Per HTN Taxonomy. Morbid obesity 08/13/2004 09/25/2023 Overview (08/18/2009): Per Obesity Taxonomy Venous insufficiency 04/27/2002 021 NEURALGIA-NEURITIS NOS 12/18/200107/24 OTHER SPECIFIED COMPLICATION S OF PROCEDURES NOT ELSEWHERE CLASSIFIED 06/16/2001 07/24/2011 Edema 03/06/2001 07/24/2011 Mixed dyslipidemia 03/06/2001 9 Overview (05/11/2009): Per Lipid Taxonomy. Varicose vein of leg 11/21/2000 018 FAMILY HX-BREAST MALIG 03/18/200010/26 FAMILY HX-GI MALIGNANCY 06/08/199706/27 Panic disorder 10/14/2020 CLASSICAL MIGRAINE WITHOU ME NTION OF INTRACTABLE MIGRAINE 09/24/2013 BACKACHE NOS 02/02/2017 Menopause 07/24/2011 Allergic rhinitis 10/27/2019 Overview (10/27/2019): Acute. Dysthymic disorder 1 Neuralgia of chest 8 Asthma exacerbation 10/18/19 17 Asthma dependent on inhaled steroids 02/02/2017 documented as of this encounter (statuses as of 09/15/2024) Immunizations Name Administration Dates Next Due COVID-19 mRNA, LNP-s, No Pre serve, 2-Dose Series (Undertone) 09/09/2020,08/19/2020 Covid-19, Mrna, Lnp-s, Pf, B ivalent, 30 Mcg, IM, 12 yrs and above (Undertone) 03/02/2024 Pneumococcal Conjugate Vacc, 13 Valent (Prevnar) 04/03/2018,10/17/2016 Pneumococcal Polysaccharide PPV23 (Pneumovax) 04/04/2019,11/04/2018,12/10/2006 Seasonal Influenza Vac., MDV , IM, 0.5 mL (Fluzone) 01/27/2015,02/10/2014,03/12/2013,06/10,02/13/2011,03/01/2010,07/19/2009 ,04/19/2008,03/10/2007,04/12/2006,02/25 Seasonal Influenza, High Dos e, Trivalent, PF, IM (Fluzone HD) 02/16/2019,01/29/2018 Seasonal Influenza, PF, 6 M & above, IM , (FluLaval or Fluzone) 02/25/2020,02/05/2019,01/29/2018,04/16 Seasonal Influenza, Quadriva lent Hd (Fluzone Hd) 01/24/2023,03/01/2022,03/27/2021 Seasonal Influenza, Quadriva lent, No Preserve, IM 03/04/2020,02/25/2020,04/16/2016 Seasonal Influenza, Trivalen t, Adjuvanted, 65+ YRS, PF, (Fluad) 03/02/2024 TD, Preservative Free 04/16/2016 TDAP, Age 7 and older, IM (Adacel) 04/12/2006 Varicella Zoster Vaccine Herrera lt (Zostavax) 03/12/2013 documented as of this encounter Social [...] the money to buy more. Never true 09/10/19 25 Within the past 12 months, t he food you bought just didn't last and you didn't have money to get more. Never true 09/09/2024 Childcare Answer Date Recorded Do you feel overwhelmed with taking care of a child, family member or friend? Yes 09/09/2024 Does your family need help f inding childcare? (Household - for ages 0-17 years) Not on file 09/09/2024 Clothing Answer Date Recorded Have you been unable to get clothing when it was really needed? No 09/09/2024 Is your family able to get c lothes or diapers when needed? (Household - for ages 0-17 years) Not on file 09/09/2024 Personal Safety Answer Date Recorded Do you feel unsafe or have concerns for your saf ety? No 09/09/2024 Do you have concerns for you r family's safety? (Household - for ages 0-17 years) Not on file 09/09/2024 Utilities Answer Date Recorded Do you have trouble paying y our heating, water, or electric bill? No 09/09/2024 Is your family able to pay t he heat, water, or electric bill? (Household - for ages 0-17 years) Not on file 09/09/2024 Does your family have access to good internet? (Household - for ages 0-17 years) Not on file 09/09/2024 Employment Status Answer Date Recorded Are you unemployed or without regular income? Ye s 09/09/2024 Does the household have a re gular source of income? (Household - for ages 0-17 years) Not on file 09/09/2024 Social Connections Answer Date Recorded How often do you feel lonely or isolated from th ose around you? Rarely 09/09/2024 Financial Resource Strain Answer Date R ecorded Do you have any trouble payi ng for your medications, or do you think you might in the future? No 09/09/2024 Does your family have troubl e paying for medicine? (Household - for ages 0-17 years) Not on file 09/09/2024 Transportation Needs Answer Date Record ed Do you have trouble getting a ride to medical visits or work? (Adult - for ages 18 years and over) Not on file 09/09/2024 Does your family have a hard time getting a ride to doctors visits? (Household - for ages 0-17 years) Not on file 09/09/2024 Has lack of transportation k ept you from medical appointments, meetings, work, or from getting things needed for daily living? Check all that apply. No 09/09/2024 Do you (or your family) have trouble finding or paying for a ride (transportation)? (Household - for ages 0-17 years) Not on file 09/09/2024 Housing Stability Answer Date Recorded Do you currently live in a s helter or have no steady place to sleep at night? No 09/09/2024 Do you think you are at risk of becoming homeless? (Adult - for ages 18 years and over) Not on file 09/09/2024 Does your family worry about paying for your home or becoming homeless? (Household - for ages 0-17 years) Not on file 0 09/09/2024 Are you homeless or worried that you might be in the future? No 09/09/2024 Are you (or your family) bayron eless or worried that you might be in the future? (Household - for ages 0-17 years) Not on file Food Insecurity Answer Date Recorded Do you need food for this week? No 12/20/2023 Are you able to get enough f ood for your family? (Household - for ages 0-17 years) Not on file 12/20/2023 Does your family need food t his week? (Household - for ages 0-17 years) Not on file 12/20/2023 Do you always have enough fo od for your family? (Household - for ages 0-17 years) Not on file 12/20/2023 Food Insecurity Answer Date Recorded Within the past 12 months, y ou worried that your food would run out before you got the money to buy more. Never true 09/10/19 25 Within the past 12 months, t he food you bought just didn't last and you didn't have money to get more. Never true 09/09/2024 Do you need food for this week? No 09/09/2024 Comments No Sex and Gender Information Value Date Recorded Sex Assigned at Female 02/25/2020 5:15 PM EDT Legal Sex Female 7:05 AM EST Gender Identity Female 02/25/2020 5:15 PM EDT Sexual Orientation Straight 02/25/2020 5: 15 PM EDT Occupation Industry Job Start Date Job End Date on disability Not on file Not on file Not on file documented as of this encounter Miscellaneous Notes * Telephone Encounter - Manuela Mcqueen LPN - 09/15/2024 9:44 AM EDT My G sent. * Telephone Encounter - Manuela Mcqueen LPN - 09/15/2024 6:58 AM EDT Patient scheduled 09/21/[address] Stauffer, will need cbcd and cmp. No shows 09/02/2024. Call patient to remind appointment and schedule labs. documented in this encounter Plan of Treatment Upcoming Encounters Date Type Department Care Team (Late st Contact Info) Description 09/21/2024 2:30 PM EDT Office Visit [facility] [place] [address] [place] [phone] Henok Stauffer MD [facility] [place] [address] 09/22/2024 2:00 PM EDT Office Visit Interventional Pain Center [facility] [address] [place] [phone] Tonya Murray PA-C [address] [place] [phone] 10/07/2024 2:40 PM EDT Office Visit Pharmacy, [place] [address] [facility] [phone] Janet Watson [address] [address] 11/24/2024 2:40 PM EDT Office Visit Nephrology, [facility] [address] [place] [address] Eric Day MD [address] [place] [address] 03/17/2025 2:20 PM EDT [facility] [place] [phone] Phuc Grider MD 226 [facility] [address] 03/29/2025 3:45 PM EST Office Visit [facility]hthal[facility], [place] [facility] [place] [address] Ernie Rivers DO 21 [facility] [place] [address] 04/15/2025 10:00 AM EST Office Visit [facility] [address] [facility] [place] [address] Chris Asencio DO 132 [facility] [place] [address] Scheduled Orders Name Type Priority Associated Diagnoses Orde r Schedule CBC WITH WBC DIFFERENTIAL Lab STAT Anemia, unspecified type Expected: 09/15/2024 (Approximate), Expires: 10/15/2024 COMPREHENSIVE METABOLIC PANEL Lab STAT Anemia, unspecified type Expected: 09/15/2024 (Approximate), Expires: 10/15/2024 Scheduled Procedures Name Priority Associated Diagnoses Date/Ti me COLONOSCOPY FLEXIBLE PROXIMA L DIAGNOSTIC Recall Family history of colon cancer Health Maintenance Due Date Last Done Comments Cologuard 1997 Fecal Occult Blood Test 1997 Sigmoidoscopy 1997 Zoster Vaccines (2 of 3) 05/07/2013 03/12/2013 Adult Wellness Visit 10/13/2023 10/12/2022, 01/10/20 21 Depression Monitoring 10/13/2023 10/12/2022 CKD PHOS USE SMARTSET 60167 09/16/2024 04/2 07/2023, 06/18/2023, 06/06/2023, Additional history exists GFR 09/23/2024 03/25/2024, 02/25, 01/06/2024, Additional history exists HbA1c 09/23/2024 03/25/2024, 08/26, 04/24/2023, Additional history exists Diabetic Eye Exam 03/05/2025 03/05/2024, , 03/05/2024, Additional history exists Mammogram 03/05/2025 03/05/2024, 07/2022, 02/26/2023, Additional history exists CKD HGB USE SMARTSET 88299 03/25/202503/25, 03/25/2024, 03/16/2024, Additional history exists Albumin/Creatinine Ratio 03/27/2025 024, 01/24/2023, 09/06/2022, Additional history exists Diabetic Foot Exam 09/14/2025 09/14/2024, 0 10/03/2023, 05/23/2020, Additional history exists Colonoscopy 03/17/2026 03/17/2021, 02/25, 12/07/2014, Additional history exists Colorectal Cancer Screening 03/17/2026 DTap/Tdap Vaccines (3 - Td or Tdap) 04/16/2026 04/16/2016, 04/12/2006 Lipid Panel 03/25/2029 03/25/2024, 12/27, 09/06/2022, Additional history exists DXA Scan 08/22/2031 08/21/2022, 07/26, 06/01/2019, Additional history exists Pneumococcal Vaccine: 50+ Years Completed 04/04/2019, 11/04/2018, 04/03/2018, Additional history exists RETIRED - COLONOSCOPY-EVERY 5 YRS AGES 18-100 Discontinued 03/17/2021, 03/17/2021, 12/07/2014, Additional history exists COVID-19 Vaccine Discontinued 03/02/2024, , 08/19/2020 Influenza Vaccine (FLU shot) Completed 03/02/2024, 01/24/2023, 03/01/2022, Additional history exists HPV (Gardasil) Vaccine Aged Out No lo nger eligible based on patient's age to complete this topic Hepatitis B Vaccine Aged Out No longe r eligible based on patient's age to complete this topic MENINGOCOCCAL (MENACTRA/MENVEO) Aged Out No longer eligible based on patient's age to complete this topic Meningitis B Vaccine (Bexsero/Trumemba) Aged Out No longer eligible based on [...] with stage 3a chronic kidney disease (HCC) Anemia, chronic disease- Primary Anemia of other [...] sleep apnea) Obstructive sleep apnea (adult) (pediatric) Advanced care planning/counseling discussion- Primary Other specified counseling Pulmonary hypertension, unspecified (HCC) Major depressive disorder, recurrent, moderate (HCC) Major depressive disorder, recurrent episode, moderate Type 2 diabetes mellitus with stage 3b chronic kidney disease, with long-term current use of insulin (HCC) Dyslipidemia, goal LDL below 70 Other and unspecified hyperlipidemia Moderate persistent asthma without complication Unspecified asthma Primary pulmonary hypertension (HCC) Primary pulmonary hypertension Hypertensive kidney disease with stage 3b chronic kidney disease (HCC) Type 2 diabetes mellitus with stage 3a chronic kidney disease, with long-term current use of insulin (HCC)- Primary Moderate persistent asthma without complication Unspecified asthma KATERIN (obstructive sleep apnea) Obstructive sleep apnea (adult) (pediatric) Osteoarthritis of spine with radiculopathy, thoracic region Anemia, chronic disease Anemia of other chronic disease Depression with anxiety Dysthymic disorder Hypertensive kidney disease with stage 3b chronic kidney disease (HCC) Anemia, unspecified type- Primary Thrombocytopenia, congenital and hereditary (HCC) Congenital and hereditary thrombocytopenic purpura Erythrocytosis Polycythemia, secondary documented in this encounter Advance Directives Documents on File Type Date Recorded Patient Business Development Representative Expl anatrichard POLST 10/20/2021 [place] OR [facility] FOR LIFE-SUSTAINING TREATMENT * Full Code (Latest Code Status on File) Date Activated Date Inactivated Comments 03/30/2022 6:40 AM 03/30/2022 2:12 PM This order r eflects the patients wishes and were consensually agreed upon. Question Answer Comments Discussion of Advance Directives occurred with: Patient Does the patient have a Living Will? No Does the patient have Health Care Power of Attor buddy? No Care Teams Line Fixer Relationship Specialty Start Date End Date September, Phuc Gordon MD [address] [facility] [place] [address] PCP - General Family Medicine 09/14/24 documented as of this encounter
--- OUTSIDE RECORDS SUMMARY | 2024-09-21 22:33 | External Medical Summary | Summary of Care ---
Author Name Unknown Organization [facility] Address [address] [place] [address] Phone [phone] Care Team Providers Care Manager Labor Delivery Name Role Phone Phuc Grider MD Primary Care Provider [phone] Reason for Visit * Reason Comments Outpatient Testing Encounter Details Date Type Department Care Team (Late st Contact Info) Description 09/15/2024 8:40 AM EDT Laboratory Laboratory, [facility] [address] [place] [address] [facility] [address] [place], [place] [phone] Type 2 diabetes mellitus with diabetic cataract, with long-term current use of insulin (HCC); [...] day E11.9 400 Strip 5 04/17/20 Active Universal BiosensorsTouch UltraSoft LancetsIndications: Type 2 diabetes mellitus with [...] 3 09/17/2023 3:16 PM EDT 05/09/20 Active Universal BiosensorsToFraudMetrix Verio Flex System w/Device Kit USE 1 DEVICE DIRECTED EVERY EVENING. UP TO 4 TIMES A DAY TO CHECK BLOOD GLUCOSE E11.9 04/17/20 Active Dexcom G7 Fryer Line Helper Device Use as directed. Active Dexcom G7 Sensor Use as directed. Active Triamcinolone Acetonide 0.1 % External Ointment (Aristocort) Apply topically to affected area 2 times a day 80 g 5 10/18/2023 12:34 PM EDT 07/11/19 24 Active clonazePAM 0.5 MG Oral Tablet (KlonoPIN) Take 1 Tablet by mouth 3 times a day as needed. 08/07/19 24 Active Calcium-Cholecalcif dayton-Zinc 650-20-5.5 MG-MCG-MG Oral Tablet Chewable Take 1 Tablet by mouth in the morning and 1 Tablet before bedtime. Active Acetaminophen 500 MG Oral Tablet (Tylenol) Take 2 Tablets by mouth 2 times a day. Active Calcitonin ([place]) 200 UNIT/ACT Nasal Solution Administer 1 [place] into one nostril in the morning. alternate [...] bedtime. 40 Capsule 04/14/20 24 Active Methscopolamine [place] 2.5 MG Oral TabletIndications:I rritable bowel syndrome [...] hemoglobin A1c goal of less than 8.0% ([facility]) Inject 10 Units under the skin in [...] Continue atorvastatin History of COVID-19 02/15/2022 09/25/19 Acute respiratory disease du e to COVID-19 [...] Overview (06/04/2014): Signed 06/04/2014 Pranav Sanchez MD [facility] [place] Spinal pain 06/04/2014 02/02/2017 Type 2 diabetes [...] mRNA, LNP-s, No Pre serve, 2-Dose Series (mobileo) 09/09/2020,08/19/2020 Covid-19, Mrna, Lnp-s, Pf, B ivalent, 30 Mcg, IM, 12 yrs and above (Pfizer) 03/02/2024 Pneumococcal Conjugate Vacc, 13 Valent (Prevnar) 04/03/2018,10/17/2016 Pneumococcal Polysaccharide PPV23 (Pneumovax) 04/04/2019,11/04/2018,12/10/2006 Seasonal Influenza Vac., MDV , IM, 0.5 mL (Fluzone) 01/27/2015,02/10/2014,03/12/2013,06/10,02/13/2011,03/01/2010,07/19/2009 ,04/19/2008,03/10/2007,04/12/2006 Seasonal Influenza, High Dos e, Trivalent, PF, [...] 09/21/2024 2:30 PM EDT Office Visit Hematology/Oncology [place] [place] [address] [place] [phone] Henok Stauffer MD [address] [place] [address] 09/22/2024 2:00 PM EDT Office Visit Interventional Pain Center [facility] [address] [place] [phone] Tonya Murray PA-C [address] [place] [phone] 10/07/2024 2:40 PM EDT Office Visit Pharmacy, [facility] [address] [place] [phone] Walter [address] [address] 11/24/2024 2:40 PM EDT Office Visit Nephrology, [place] [address] [place] [address] Eric Day MD [address] [place] [address] 03/17/2025 2:20 PM EDT Office Visit Family Practice, [place] [address] [place] [phone] Phuc Grider MD [facility] [place] [address] 03/29/2025 3:45 PM EST Office Visit OphthalmologyJeevan [address] [place] [address] Ernie Rivers, DO [address] [place] [address] 04/15/2025 10:00 AM EST Office Visit Family Practice [facility] [address] [place] [address] Chris Asencio, DO [address] [place] [address] Pending Results Name Type Priority Associated Diagnoses Date /Time COMPREHENSIVE METABOLIC PANEL Lab Routine Type 2 diabetes mellitus with diabetic cataract, with long-term current use of insulin (HCC) 09/15/2024 8:06 AM EDT PHOSPHORUS Lab Routine Hypertensive kidney disease with stage 3b chronic kidney disease (HCC) 09/15/2024 8:06 AM EDT HEMOGLOBIN A1C Lab Routine Type 2 diabetes mellitus with diabetic cataract, with long-term current use of insulin ([facility]) 09/15/2024 8:06 AM EDT CBC WITH WBC DIFFERENTIAL Lab Routine HTN, goal below 130/80 09/15/2024 8:06 AM EDT CBC Lab Routine HTN, goal below 130/80 09/15/2024 8:06 AM EDT DIFFERENTIAL, AUTOMATED Lab Routine HTN, goal below 130/80 09/15/2024 8:06 AM EDT Scheduled Procedures Name Priority Associated Diagnoses Date/Ti me COLONOSCOPY FLEXIBLE PROXIMA L DIAGNOSTIC Recall Family history of colon cancer Health Maintenance Due Date Last Done Comments Cologuard 1997 Fecal Occult Blood Test 1997 Sigmoidoscopy 1997 Zoster Vaccines (2 of 3) 05/07/2013 03/12/2013 Adult Wellness Visit 10/13/2023 10/12/2022, 01/10/20 21 Depression Monitoring 10/13/2023 10/12/2022 CKD PHOS USE SMARTSET 92108 09/16/202408/26, 06/18/2023, 06/06/2023, Additional history exists GFR 09/23/2024 03/25/2024, 02/25, 01/06/2024, Additional history exists HbA1c 09/23/2024 03/25/2024, 08/26, 04/24/2023, Additional history exists Diabetic Eye Exam 03/05/2025 03/05/2024, , 03/05/2024, Additional history exists Mammogram 03/05/2025 03/05/2024, 1007/2022, 02/26/2023, Additional history exists CKD HGB USE SMARTSET 60996 03/25/202503/25, 03/25/2024, 03/16/2024, Additional history exists Albumin/Creatinine [...] disease (HCC) Type 2 diabetes mellitus with diabetic cataract, with long-term current use of insulin (HCC) Hypertensive kidney disease with stage 3b chronic kidney disease (HCC) HTN, goal below 130/80 Unspecified essential hypertension documented in this encounter Advance Directives Documents on File Type Date Recorded Patient Director Health Expl anation POLST 10/20/2021 [place] OR [facility] FOR LIFE-SUSTAINING TREATMENT * Full Code (Latest [...] Power of Attor buddy? No Care Teams Manager Labor Delivery Relationship Specialty Start Date End Date September, Phuc Gordon MD [address] [place] [address] PCP - General Family Medicine 09/14/24 documented as of this encounter
--- OUTSIDE RECORDS SUMMARY | 2024-09-21 22:33 | External Medical Summary | Summary of Care ---
Author Name Unknown Organization [facility] Address [address] [place] [address] Phone [phone] Care Team Providers Care Musical Instrument Maker Or Repairer Name Role Phone Phuc Grider MD Primary Care Provider [phone] Encounter Details Date Type Department Care Team (Late st Contact Info) Description 09/16/2024 Orders Only PATIENT PORTAL DO NOT DELETE THIS DEPT USED BY [place] [phone] Allergies Active Allergy Reactions Criticality Noted Date [...] as of this encounter (statuses as of 09/16/2024) Medications Spacer/Aero-Holding Chambers DEVIIndications:Mod erate persistent asthma without complication Use with inhaler. 1 Device 07/10/19 Active multivitamin (MVI) Tablet TAKE 1 TABLET BY MOUTH EVERY DAY FOR SUPPLEMENT 1 09/18/19 Active ONETOUCH DELICA LANCETS FINE MISC Use up to four times a day as directed DX E11.9 400 Each 3 04/16/20 Active Doxepin HCl 150 MG Oral Capsule Take 1 Capsule by mouth at bedtime. 08/11/19 Active Systane Complete 0.6 % Ophthalmic Solution [...] the Emergency room. 2 Each 3 09/07/19 Active Vitamin C 500 MG Oral Capsule Take 1 Capsule by mouth in the morning and 1 Capsule before bedtime. Active OneTouch Verio In Vitro Strip (Glucose Blood)Indications:T ype 2 diabetes mellitus with stage 3b chronic kidney disease, with long-term current use of insulin (HCC) Use up to 3 times a day E11.9 400 Strip 5 04/17/20 Active OneTouch UltraSoft LancetsIndications: Type 2 diabetes [...] 3 09/17/2023 3:16 PM EDT 05/09/20 Active MiTu Network Flex System w/Device Kit USE 1 DEVICE DIRECTED EVERY EVENING. UP TO 4 TIMES A DAY TO CHECK BLOOD GLUCOSE E11.9 04/17/20 Active Dexcom G7 Atmospheric Chemist Device Use as directed. Active Dexcom G7 [...] mouth 2 times a day. Active Calcitonin ([place]) 200 UNIT/ACT Nasal Solution Administer 1 [place] into one nostril in the morning. alternate [...] bedtime. 40 Capsule 04/14/20 24 Active Methscopolamine [place] 2.5 MG Oral TabletIndications:I rritable bowel syndrome [...] TABLET BY MOUTH EVERY DAY 90 Tablet 09/12/19 25 Active Insulin Glargine Solostar 100 UNIT/ML Subcutaneous Solution Pen-injector (Lantus SoloStar)Indication s:Type 2 diabetes mellitus with hemoglobin A1c goal of less than 8.0% (HCC) Inject 28 Units under the skin daily. 30 mL 09/12/19 25 Active NovoLOG FlexPen 100 UNIT/ML Subcutaneous Solution Pen-injector (insulin aspart)Indications: Type 2 diabetes mellitus with hemoglobin A1c goal of less than 8.0% (HCC) Inject 10 Units under the skin in the morning and 10 Units at noon and 10 Units in the evening. Inject with meals. 30 mL 09/12/19 25 Active Amoxicillin 875 MG Oral [...] as of this encounter (statuses as of 09/16/2024) Active Problems Patient Care Coordination No te [...] as of this encounter (statuses as of 09/16/2024) Resolved Problems Problem Noted Date Diagnosed Date [...] 40 mg daily Lisinopril remains on hold 06/28 hypotension Type 2 diabetes mellitus wit h [...] Overview (06/04/2014): Signed 06/04/2014 Pranav Sanchez MD [facility] Pharm[facility] [place] Spinal pain 06/04/2014 02/02/2017 Type 2 diabetes [...] as of this encounter (statuses as of 09/16/2024) Immunizations Name Administration Dates Next Due COVID-19 mRNA, LNP-s, No Pre serve, 2-Dose Series ([employer]) 09/09/2020,08/19/2020 Covid-19, Mrna, Lnp-s, Pf, B ivalent, 30 Mcg, IM, 12 yrs and above ([employer]) 03/02/2024 Pneumococcal Conjugate Vacc, 13 Valent (Prevnar) [...] 09/21/2024 2:30 PM EDT Office Visit Hematology/Oncology [facility] [place] [address] [place] [phone] Henok Stauffer MD [address] [place] [address] [address] 09/22/2024 2:00 PM EDT Office Visit Interventional Pain Center [facility] [address] [place] [phone] Tonya Murray PA-C [address] [place] [phone] 10/07/2024 2:40 PM EDT Office Visit Pharmacy, [facility] [address] [facility] [place] [phone] [place] [address] 11/24/2024 2:40 PM EDT Office Visit Nephrology, [facility] [address] [place] [address] Eric Day MD [address] [place] [address] 03/17/2025 2:20 PM EDT [facility] Visit [facility] [phone] Phuc Grider MD 226 [place] [address] 03/29/2025 3:45 PM EST Office Visit Ophthalmology, [place] [address] [place] [address] Ernie Rivers DO [address] [place] [address] 04/15/2025 10:00 AM EST Office Visit Family [facility] [address] [place] [address] Chris Asencio DO [address] [place] [address] Scheduled Procedures Name Priority Associated Diagnoses Date/Ti me COLONOSCOPY FLEXIBLE PROXIMA L DIAGNOSTIC Recall Family history of colon cancer Health Maintenance Due Date Last Done Comments Cologuard 1997 Fecal Occult Blood Test 1997 Sigmoidoscopy 1997 Zoster Vaccines (2 of 3) 05/07/2013 03/12/2013 Adult Wellness Visit 10/13/2023 10/12/2022, 01/10/20 21 Depression Monitoring 10/13/2023 10/12/2022 Diabetic Eye Exam 03/05/2025 03/05/2024, , 03/05/2024, Additional history exists Mammogram 03/05/2025 03/05/2024, 07/2022, 02/26/2023, Additional history exists GFR 03/17/2025 09/15/2024, 02/26, 03/16/2024, Additional history exists HbA1c 03/17/2025 09/15/2024, 02/26, 09/17/2023, Additional history exists Albumin/Creatinine Ratio 03/27/2025 024, 01/24/2023, 09/06/2022, Additional history exists Diabetic Foot Exam 09/14/2025 09/14/2024, 0 10/03/2023, 05/23/2020, Additional history exists CKD HGB USE SMARTSET 75492 09/15/202509/15, 09/15/2024, 03/25/2024, Additional history exists CKD PHOS USE SMARTSET 31557 09/15/202508/26, 09/17/2023, 06/18/2023, Additional history exists Colonoscopy 03/17/2026 03/17/2021, 02/25, [...] Documents on File Type Date Recorded Patient Shot Man Expl bhargav POL 10/20/2021 [place] OR [email or web address] FOR LIFE-SUSTAINING TREATMENT * Full Code (Latest [...] Power of Attor buddy? No Care Teams Musical Instrument Maker Or Repairer Relationship Specialty Start Date End Date September, Phuc Gordon MD [address] [place] [address] PCP - General Family Medicine 09/14/24 documented as of this encounter
--- OUTSIDE RECORDS SUMMARY | 2024-09-21 22:33 | External Medical Summary | Summary of Care ---
Author Name Unknown Organization [facility] Address [address] [place] [address] Phone [phone] Care Team Providers Care Naturopathic Doctor Name Role Phone Phuc Grider MD Primary Care Provider [phone] Reason for Visit * Reason Onset Date Comments Appointment 09/15/2024 Encounter Details Date Type Department Care Team (Late st Contact Info) Description 09/15/2024 Telephone Hematology/Oncology [facility] 200 [place] [phone] Henok Stauffer MD 200 [place] [address] Appointment Allergies Active Allergy Reactions Criticality Noted [...] day E11.9 400 Strip 5 04/17/20 Active Interface21ToCyberDefender UltraSoft LancetsIndications: Type 2 diabetes mellitus with [...] 3 09/17/2023 3:16 PM EDT 05/09/20 Active [employer] Verio Flex System w/Device Kit USE 1 DEVICE DIRECTED EVERY EVENING. UP TO 4 TIMES A DAY TO CHECK BLOOD GLUCOSE E11.9 04/17/20 Active Dexcom G7 Chief Port Director Device Use as directed. Active Dexcom G7 [...] mouth 2 times a day. Active Calcitonin ([place]) 200 UNIT/ACT Nasal Solution Administer 1 [place] into one nostril in the morning. alternate [...] bedtime. 40 Capsule 04/14/20 24 Active Methscopolamine [place] 2.5 MG Oral TabletIndications:I rritable bowel syndrome [...] Overview (06/04/2014): Signed 06/04/2014 Pranav Sanchez MD [facility] Pharmacy [place] Spinal pain 06/04/2014 02/02/2017 Type 2 diabetes [...] mRNA, LNP-s, No Pre serve, 2-Dose Series ([employer]) 09/09/2020,08/19/2020 Covid-19, Mrna, Lnp-s, Pf, B ivalent, 30 Mcg, IM, 12 yrs and above ([employer]) 03/02/2024 Pneumococcal Conjugate Vacc, 13 Valent (Prevnar) [...] 09/21/2024 2:30 PM EDT Office Visit Hematology/Oncology [facility] [place] [address] [place] [phone] Henok Stauffer MD 200 [facility] [place] [address] 09/22/2024 2:00 PM EDT Office Visit Interventional Pain Center [facility] [address] [place] [phone] Tonya Murray PA-C [address] [place] [phone] 10/07/2024 2:40 PM EDT [facility] [place] [facility] [address] [place] [address] [phone] [place] [address] [place] [address] [place] [address] 11/24/2024 2:40 PM EDT Office Visit Nephrology, [facility] [address] [place] [address] [address] Eric Day MD [address] [place] [address] [address] 03/17/2025 2:20 PM EDT Office Visit Family [facility] 226 [facility] [place] [phone] Phuc Grider MD [address] [place] [address] 03/29/2025 3:45 PM EST Office Visit Ophthalmology, [place] [address] [place] [address] Ernie Rivers DO [address] [place] [address] 04/15/2025 10:00 AM EST Office Visit Family Practice [facility] [address] [place] [address] Chris Asencio, [address] [place] [address] Scheduled Orders Name Type Priority Associated Diagnoses [...] Monitoring 10/13/2023 10/12/2022 CKD PHOS USE SMARTSET 18079 09/16/202408/26, 06/18/2023, 06/06/2023, Additional history exists GFR 09/23/2024 03/25/2024, 02/25, 01/06/2024, Additional history exists HbA1c 09/23/2024 03/25/2024, 08/26, 04/24/2023, Additional history exists Diabetic Eye Exam 03/05/2025 03/05/2024, , 03/05/2024, Additional history exists Mammogram 03/05/2025 03/05/2024, 07/2022, 02/26/2023, Additional history exists CKD HGB USE SMARTSET 74561 03/25/202503/25, 03/25/2024, 03/16/2024, Additional history exists Albumin/Creatinine [...] Documents on File Type Date Recorded 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 No Care Teams Naturopathic Doctor Relationship Specialty Start Date End Date September, Phuc Gordon MD [address] [place] [address] PCP - General Family Medicine 09/14/24 documented as of this encounter
--- OUTSIDE RECORDS SUMMARY | 2024-09-21 22:33 | External Medical Summary | Summary of Care ---
Author Name Unknown Organization [facility] Address [address] [place] [address] Phone [phone] Care Team Providers Care Roaster Operator Name Role Phone SeptemberPhuc MD Primary Care Provider [phone] Reason for Visit * Reason Onset Date Comments Advice 09/21/2024 Encounter Details Date Type Department Care Team (Late st Contact Info) Description 09/21/2024 Telephone [facility] [address] [place] [address] Phuc Grider MD [address] [place], [place] [phone] Advice Allergies Active Allergy Reactions Criticality Noted [...] as of this encounter (statuses as of 09/21/2024) Medications Spacer/Aero-Holding Chambers DEVIIndications:Mod erate persistent asthma [...] Breath or Wheezing. As needed Active EpiPen 2-Rnoni 0.3 MG/0.3ML Injection Solution Auto-injectorIndica tions:Allergy, subsequent [...] a day E11.9 400 Strip 5 04/17/20 23 Active Genocea BiosciencesToRailRunner UltraSoft LancetsIndications: Type 2 diabetes mellitus with [...] 3 09/17/2023 3:16 PM EDT 05/09/20 Active Opentopic Verio Flex System w/Device Kit USE 1 DEVICE DIRECTED EVERY EVENING. UP TO 4 TIMES A DAY TO CHECK BLOOD GLUCOSE E11.9 04/17/20 23 Active Dexcom G7 Pure Culture Operator Device Use as directed. Active Dexcom G7 [...] mouth 2 times a day. Active Calcitonin (Aurora) 200 UNIT/ACT Nasal Solution Administer 1 [place] into one nostril in the morning. alternate [...] bedtime. 40 Capsule 04/14/20 24 Active Methscopolamine [place] 2.5 MG Oral TabletIndications:I rritable bowel syndrome [...] AND ONE-HALF TAB AT BEDTIME. 135 Tablet 06/15/19 25 Active Furosemide 20 MG Oral [...] as of this encounter (statuses as of 09/21/2024) Active Problems Patient Care Coordination No te [...] as of this encounter (statuses as of 09/21/2024) Resolved Problems Problem Noted Date Diagnosed Date [...] Overview (06/04/2014): Signed 06/04/2014 Pranav Sanchez MD [facility] [place] Spinal pain 06/04/2014 02/02/2017 Type 2 diabetes [...] as of this encounter (statuses as of 09/21/2024) Immunizations Name Administration Dates Next Due COVID-19 mRNA, LNP-s, No Pre serve, 2-Dose Series (Balakam) 09/09/2020,08/19/2020 Covid-19, Mrna, Lnp-s, Pf, B ivalent, 30 Mcg, IM, 12 yrs and above (Balakam) 03/02/2024 Pneumococcal Conjugate Vacc, 13 Valent (Prevnar) [...] encounter Miscellaneous Notes * Telephone Encounter - MiguelDesire mendiola CPhT - 09/21/2024 10:04 AM EDT [facility] calling in to request scripts be sent to them. I advised the person we need clarificationfrom the patient. I reached out to patient and LMOVM for her to call back to verify. Thank you, Desire Rivera CPhT Beer Runner [facility] ([facility]) 09/21/2024,10:05 AM * Telephone Encounter - Marlyn Peres OSA - 09/21/2024 9:54 AM EDT [facility]onne from [facility] - calling requesting to speak to PA or MA for Chris Asencio. documented in this encounter Plan of Treatment Upcoming Encounters Date Type Department Care Team (Late st Contact Info) Description 09/22/2024 2:00 PM EDT Office Visit [facility] [address] [place] [phone] Tonya Murray PA-C [address] [place] [address] 10/07/2024 2:40 PM EDT Office Visit Pharmacy, Walter [facility] [address] [place] [phone] [facility] [address] [place], [place] [address] [address] 11/24/2024 2:40 PM EDT Office Visit Nephrology, Misty Calderon [address] [place] [address] Eric Day MD [address] [place] [address] 03/17/2025 2:20 PM EDT [facility] [address] [place] [address] Phuc Grider MD [address] [place] [address] 03/29/2025 3:45 PM EST Office Visit Ophthalmology, Jeevan [address] [place] [address] Ernie Rivers DO [address] [place] [address] 04/15/2025 10:00 AM EST Office Visit [facility] [address] [place] [address] Chris Asencio DO [address] [place] [address] Scheduled Procedures Name Priority Associated Diagnoses Date/Ti [...] Additional history exists CKD HGB USE SMARTSET 03987 09/15/202509/15, 09/15/2024, 03/25/2024, Additional history exists CKD PHOS USE SMARTSET 61133 09/15/202508/26, 09/17/2023, 06/18/2023, Additional history exists Colonoscopy [...] Documents on File Type Date Recorded 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 No Care Teams Roaster Operator Relationship Specialty Start Date End Date September, Phuc Gordon MD 226 [facility] [place] [address] PCP - General Family Medicine 09/14/24 documented as of this encounter
--- OUTSIDE RECORDS SUMMARY | 2024-09-21 22:33 | External Medical Summary | Summary of Care ---
Author Name Unknown Organization [facility] Address [address] [place] [address] Phone [phone] Care Team Providers Care Component Assembler Name Role Phone Phuc Grider MD Primary Care Provider [phone] Reason for Visit * Reason Onset Date Comments Appointment 09/15/2024 Encounter Details Date Type Department Care Team (Late st Contact Info) Description 09/15/2024 Telephone Hematology/Oncology [facility] 200 [place] [phone] Henok Stauffer MD [address] [place] [address] Appointment Allergies Active Allergy Reactions Criticality Noted [...] day E11.9 400 Strip 5 04/17/20 Active Gekko [email or web address] UltraSoft LancetsIndications: Type 2 diabetes mellitus with [...] 3 09/17/2023 3:16 PM EDT 05/09/20 Active Picocent Verio Flex System w/Device Kit USE 1 DEVICE DIRECTED EVERY EVENING. UP TO 4 TIMES A DAY TO CHECK BLOOD GLUCOSE E11.9 04/17/20 Active Dexcom G7 Passenger Car Upholsterer Apprentice Device Use as directed. Active Dexcom G7 [...] mouth 2 times a day. Active Calcitonin ([place]) 200 UNIT/ACT Nasal Solution Administer 1 [place] into one nostril in the morning. alternate [...] bedtime. 40 Capsule 04/14/20 24 Active Methscopolamine [place] 2.5 MG Oral TabletIndications:I rritable bowel syndrome [...] Overview (06/04/2014): Signed 06/04/2014 Pranav Sanchez MD [facility] Pharmacy [place] Spinal pain 06/04/2014 02/02/2017 Type [...] mRNA, LNP-s, No Pre serve, 2-Dose Series (Indix) 09/09/2020,08/19/2020 Covid-19, Mrna, Lnp-s, Pf, B ivalent, 30 Mcg, IM, 12 yrs and above (Indix) 03/02/2024 Pneumococcal Conjugate Vacc, 13 Valent (Prevnar) [...] 09/21/2024 2:30 PM EDT Office Visit [facility] [place] [address] [place] [phone] Henok Stauffer MD 200 [facility] [place] [address] 09/22/2024 2:00 PM EDT Office Visit [facility] [address] [place] [phone] Tonya Murray PA-C [address] [place] [phone] 10/07/2024 2:40 PM EDT Office Visit Pharmacy, [place] [address] [facility] [phone] [address] [address] 11/24/2024 2:40 PM EDT Office Visit Nephrology, [facility] [address] [place] [address] Eric Day MD [address] [place] [address] 03/17/2025 2:20 PM EDT [facility] [address] [facility] [place] [phone] Phuc Grider MD 226 [place] [address] 03/29/2025 3:45 PM EST Office Visit [facility]hthalmology, [place] [facility] [place] [address] Ernie Rivers DO 21 [facility] [place] [address] 04/15/2025 10:00 AM EST Office Visit [facility] 132 [facility] [place] [address] Chris Asencio DO 132 [facility] [place] [address] Scheduled Orders Name Type Priority Associated Diagnoses [...] Additional history exists CKD HGB USE SMARTSET 98741 09/15/202509/15, 09/15/2024, 03/25/2024, Additional history exists CKD PHOS USE SMARTSET 89517 09/15/202508/26, 09/17/2023, 06/18/2023, Additional history exists Colonoscopy [...] on File Type Date Recorded 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 No Care Teams Component Assembler Relationship Specialty Start Date End Date September, Phuc Gordon MD [address] [facility] [place] [address] PCP - General Family Medicine 09/14/24 documented as of this encounter
--- OUTSIDE RECORDS SUMMARY | 2024-09-21 22:34 | External Medical Summary | Summary of Care ---
Author Name Unknown Organization [facility] Address [address] [place] [address] Phone [phone] Care Team Providers Care Epic Stork Specialists Name Role Phone Chris Asencio Primary Care Provider Reason for Visit * Reason Onset Date Comments [facility]: Screening 09/09/2024 Encounter Details Date Type Department Care Team (Late st Contact Info) Description 09/09/2024 Telephone [facility] [place] [address] [place] [address] Maria Teresa Smith LPN [address] [facility] [place] [address] [facility]: Screening Allergies Active Allergy Reactions Criticality Noted Date [...] as of this encounter (statuses as of 09/11/2024) Medications Spacer/Aero-Holdin socorro Singh DEVIIndications:Mo derate persistent asthma without complication Use with inhaler. 1 Device 019 Active multivitamin (MVI) Tablet TAKE 1 TABLET BY MOUTH EVERY DAY FOR SUPPLEMENT 1 019 Active ONETOUCH DELICA LANCETS FINE MISC Use up to four times a day as directed DX E11.9 400 Each 3 019 Active Doxepin HCl 150 MG Oral Capsule Take 1 Capsule by mouth at bedtime. 021 Active Systane Complete 0.6 % Ophthalmic Solution [...] Active EpiPen 2-Ronni 0.3 MG/0.3ML Injection Solution Auto-injectorIndic ations:Allergy, subsequent encounter For a severe reaction: Place orange end against the outer thigh, press firmly, hold in place for 10 seconds and go to the Emergency room. 2 Each 3 023 Active Vitamin C 500 MG Oral Capsule Take 1 Capsule by mouth in the morning and 1 Capsule before bedtime. Active OneTouch Verio In Vitro Strip (Glucose Blood)Indications: Type 2 diabetes mellitus with stage 3b chronic kidney disease, with long-term current use of insulin (HCC) Use up to 3 times a day E11.9 400 Strip 5 023 Active OneTouch UltraSoft LancetsIndications :Type 2 diabetes mellitus with stage 3b chronic kidney disease, with long-term current use of insulin (HCC) Use as directed 4 times a day. Use up to four times a day as directed to check blood glucose E 11.9 400 Each 5 023 Active BD Pen Needle Mini U/F 31G X 5 MM (Insulin Pen Needle)Indications :Type 2 diabetes mellitus with diabetic nephropathy, with long-term current use of insulin (HCC) USE DIRECTED WITH NOVOLOG 300 Each 1 05/10/20 23 6:19 PM EST 023 Active Fluticasone Furoate-Vilanterol 100-25 MCG/ACT Inhalation Aerosol Powder Breath Activated (BREO ellipta)Indication s:Moderate persistent asthma without complication INHALE 1 PUFF BY MOUTH EVERY DAY 180 Each 3 09/04/19 24 5:45 PM EDT 023 Active Budesonide 0.5 MG/2ML Inhalation Suspension (Pulmicort)Indicat ions:Acute respiratory disease due to COVID-19 virus INHALE VIA NEBULIZER 1 VIAL IN THE MORNING AND 1 VIAL BEFORE BEDTIME 360 mL 3 09/04/19 24 5:45 PM EDT 023 Active Fluticasone Propionate 50 MCG/ACT Nasal Suspension (Flonase)Indicatio ns:LRTI (lower respiratory tract infection),Moderat e persistent asthma with acute exacerbation,Acute URI Administer 2 Sprays into each nostril in the morning and 2 Sprays before bedtime. 48 g 3 09/17/19 24 3:16 PM EDT 023 Active OneTouch Verio Flex System w/Device Kit USE 1 DEVICE DIRECTED EVERY EVENING. UP TO 4 TIMES A DAY TO CHECK BLOOD GLUCOSE E11.9 023 Active Dexcom G7 Hat Renovator Device Use as directed. Active Dexcom G7 Sensor Use as directed. Active Triamcinolone Acetonide 0.1 % External Ointment (Aristocort) Apply topically to affected area 2 times a day 80 g 5 10/18/19 24 12:34 PM EDT 024 Active clonazePAM 0.5 MG Oral Tablet (KlonoPIN) Take 1 Tablet by mouth 3 times a day as needed. Active Calcium-Cholecalci ferol-Zinc 650-20-5.5 MG-MCG-MG Oral Tablet Chewable Take 1 Tablet by mouth in the morning and 1 Tablet before bedtime. Active Acetaminophen 500 MG Oral Tablet (Tylenol) Take 2 Tablets by mouth 2 times a day. Active Calcitonin ([place]) 200 UNIT/ACT Nasal Solution Administer 1 [place] into one nostril in the morning. alternate nostrils.. 3 mL 11 Active buPROPion HCl ER (SR) 100 MG Oral Tablet Extended Release 12 Hour (Wellbutrin SR) Take 1 Tablet by mouth in the morning. Active Pantoprazole Sodium 40 MG Oral Tablet Delayed Release (Protonix)Indicati ons:Gastroesophage al reflux disease with esophagitis without hemorrhage TAKE 1 TABLET IN THE MORNING AND BEFORE BEDTIME 180 Tablet 3 024 Active Molnupiravir 200 MG Oral CapsuleIndications :Person under investigation for COVID-19,Pneumonia due to suspected gram-negative bacteria Take 4 Capsules by mouth in the morning and 4 Capsules before bedtime. 40 Capsule 024 Active Methscopolamine [place] 2.5 MG Oral TabletIndications: Irritable bowel syndrome with diarrhea TAKE 1 TAB UP TO 3 TIMES DAILY NEEDED FOR ABDOMINAL CRAMPS & DIARRHEA, 270 Tablet 1 024 Active Aspirin 81 MG Oral Tablet Chewable (Aspirin Low Dose)Indications:T ype 2 diabetes mellitus with diabetic nephropathy, with long-term current use of insulin (HCC) CHEW 1 TABLET BY MOUTH EVERY DAY 90 Tablet 3 024 Active Atorvastatin Calcium 40 MG Oral Tablet (Lipitor)Indicatio ns:Dyslipidemia, goal LDL below 70 TAKE 1 TABLET BY MOUTH EVERY DAY IN THE MORNING 90 Tablet 3 024 Active Premarin 0.625 MG/GM Vaginal Cream (Estrogens Conjugated)Indicat ions:Vaginal atrophy ADMINISTER 0.5 G INTO THE VAGINA AT BEDTIME. DO THIS 3 EVENINGS PER WEEK 30 g 5 024 Active Montelukast Sodium 10 MG Oral Tablet (Singulair)Indicat ions:Moderate persistent asthma without complication TAKE 1 TABLET BY MOUTH EVERY DAY 90 Tablet 3 024 Active Famotidine 40 MG Oral Tablet (Pepcid)Indication s:Gastroesophageal reflux disease with esophagitis without hemorrhage TAKE 1 TABLET BY MOUTH EVERY DAY IN THE MORNING 90 Tablet 3 024 Active Diphenoxylate-Atro pine 2.5-0.025 MG Oral Tablet (Lomotil)Indicatio ns:Irritable bowel syndrome with diarrhea Take 2 Tablets by mouth every 6 hours as needed for Diarrhea. 30 Tablet 11 025 Active Diclofenac Sodium 1 % External Gel (Voltaren)Indicati ons:Right knee pain, unspecified chronicity PLACE 4 GRAMS TOPICALLY ON THE SKIN TWICE DAILY DIRECTED 300 g 4 025 Active Metoprolol Succinate ER 25 MG Oral Tablet Extended Release 24 Hour (toPROL XL)Indications:PVC 's (premature ventricular contractions) TAKE 1 TAB BY MOUTH EVERY MORNING AND ONE-HALF TAB AT BEDTIME. 135 Tablet 1 025 Active Furosemide 20 MG Oral Tablet (Lasix) Take 1 Tablet by mouth in the morning and 1 Tablet before bedtime. 025 Active Benzonatate 100 MG Oral Capsule Take 1 Capsule by mouth 3 times a day as needed for Cough. 30 Capsule 025 Active Trulicity 3 MG/0.5ML Subcutaneous Solution Auto-injector (Dulaglutide)Indic ations:Type 2 diabetes mellitus with hemoglobin A1c goal of less than 8.0% (HCC) Inject 3 mg under the skin once a week. Replaces ozempic 6 mL 025 Active Insulin Glargine Solostar 100 UNIT/ML Subcutaneous Solution Pen-injector (Lantus SoloStar)Indicatio ns:Type 2 diabetes mellitus with hemoglobin A1c goal of less than 8.0% (HCC) Inject 28 Units under the skin daily. 30 mL 4 025 Active NovoLOG FlexPen 100 UNIT/ML Subcutaneous Solution Pen-injector (insulin aspart)Indications :Type 2 diabetes mellitus with hemoglobin A1c goal of less than 8.0% (HCC) Inject 10 Units under the skin in the morning and 10 Units at noon and 10 Units in the evening. Inject with meals. 30 mL 4 025 Active Ferrous Gluconate 240 (27 Fe) MG Oral Tablet (Ferate) TAKE BY MOUTH 1 TABLET DAILY . 90 Tablet 3 08/06/19 24 2:42 PM EDT 024 2024 Discontinued Pramipexole Dihydrochloride 1 MG Oral Tablet (Mirapex)Indicatio ns:Right knee pain, unspecified chronicity TAKE 1 TABLET BY MOUTH EVERYDAY AT BEDTIME 90 Tablet 1 024 2024 Discontinued Insulin Glargine Solostar 100 UNIT/ML Subcutaneous Solution Pen-injector (Lantus SoloStar)Indicatio ns:Type 2 diabetes mellitus with hemoglobin A1c goal of less than 8.0% ([facility]) Inject 20 Units under the skin daily. Replaces tresiba 15 mL 4 025 2024 Discontinued(R efill) NovoLOG FlexPen 100 UNIT/ML Subcutaneous Solution Pen-injector (insulin aspart)Indications :Type 2 diabetes mellitus with hemoglobin A1c goal of less than 8.0% (HCC) inject 5 units before breakfast, 2 units with lunch and 2 units with supper + CF of 1:50 over 200 15 mL 4 025 2024 Discontinued(R efill) Hospital, Clinic, or Other Facility Administered Medication Ordered Dose Route Frequency Start Date End Date Status albuterol sulfate (PROVENTIL) (2.5 MG/3ML) 0.083% inhalation solution 2.5 mgIndications:Moderate persistent asthma without complication 2.5 mg NEBULIZER Q4H PRN 08/13/2018 Active documented as of this encounter (statuses as of 09/11/2024) Active Problems Patient Care Coordination No te Formatting of this note migh t be different from the original. Patient's 'Red Flags': 1. N/v/diarrhea 2. Decreased urine output 3. Unable to get out of bed Problem Noted Date Diagnosed Date Type 2 diabetes mellitus wit h both [...] as of this encounter (statuses as of 09/11/2024) Resolved Problems Problem Noted Date Diagnosed Date [...] Overview (06/04/2014): Signed 06/04/2014 Pranav Sanchez MD [facility] Pharmacy [place] Spinal pain 06/04/2014 02/02/2017 Type 2 diabetes [...] as of this encounter (statuses as of 09/11/2024) Immunizations Name Administration Dates Next Due COVID-19 mRNA, LNP-s, No Pre serve, 2-Dose Series (HealthyChic) 09/09/2020,08/19/2020 Covid-19, Mrna, Lnp-s, Pf, B ivalent, 30 Mcg, IM, 12 yrs and above (HealthyChic) 03/02/2024 Pneumococcal Conjugate Vacc, 13 Valent (Prevnar) [...] encounter Miscellaneous Notes * Addendum Note - Vickie Vogel RP - 09/11/2024 11:11 AM EDT Addended by: VICKIE VOGEL on: 09/11/2024 11:11 AM Modules accepted: Orders * Telephone Encounter - Vickie Vogel RPh - 09/11/2024 11:10 AM EDT Scripts sent. Patient called in in another TE. I will call her back and document in that TE when I have adequate time to address it. Vickie Vogel, GwenD, [facility] Clinical Pharmacist Medication Therapy Disease Management 09/11/2024, 11:11 AM * Telephone Encounter - Lakshmi Morris PHARM Tech - 09/11/2024 10:34 AM EDT Pt calling back and informed me that her dosage on her lantus is now 28 units and her Novolog is 10units three times a day. Pt's old dosages are still active in her med list.Please send updated scripts to [id number] [address] [facility] Thank you, Lakshmi Morris [facility] Honing Machine Operator Semiautomatic II [facility] ([facility]) 09/11/2024,10:36 AM * Telephone Encounter - Vickie Vogel RPh - 09/10/2024 6:59 AM EDT Noted by MTM. * Telephone Encounter - Maria Teresa Smith LPN - 09/09/2024 3:18 PM EDT MTM referring Sent to [facility] leadership to review Former [facility] not eligible for [facility] per leadership also was referred to Level 2 CM also who can manage Liane A Pili was referred as a potential candidate for enrollment for [facility]. A review of this chart was completed and: Liane does not meet criteria for enrollment into [facility]. Referral Source: PCP/Specialty Criteria for Ineligibility: Not Located in Service Area Referring care team was notified via : Bluesocket communication In area but not eligible at this time for [place] documented in this encounter Plan of Treatment Upcoming Encounters Date Type Department Care Team (Late st Contact Info) Description 09/14/2024 3:40 PM EDT Office Visit [facility] [place] [address] [place] [phone] SeptemberPhuc MD [address] [place] [address] 09/21/2024 2:30 PM EDT Office Visit Hematology/Oncology Misty [place] [address] [place] [phone] Henok Stauffer MD [address] [place] [address] 09/22/2024 2:00 PM EDT Office Visit Interventional Pain Center [facility] [address] [place] [phone] Tonya Murray PA-C [address] [place] [address] 10/07/2024 2:40 PM EDT Office Visit [facility] [phone] Walter [address] [address] 11/24/2024 2:40 PM EDT Office Visit Nephrology, [facility] [address] [place] [address] Eric Day MD 200 [facility] [place] [address] 03/29/2025 3:45 PM EST Office Visit Ophthalmology, Jeevan [address] [place] [address] Ernie Rivers DO [facility] [place] [address] 04/15/2025 10:00 AM EST Office Visit Family Practice [facility] [place] [address] Chris Asencio DO 132 [facility] [place] [address] Scheduled Procedures Name Priority Associated Diagnoses Date/Ti me COLONOSCOPY FLEXIBLE PROXIMA L DIAGNOSTIC Recall Family history of colon cancer Health Maintenance Due Date Last Done Comments Cologuard 1997 Fecal Occult Blood Test 1997 Sigmoidoscopy 1997 Zoster Vaccines (2 of 3) 05/07/2013 03/12/2013 Adult Wellness Visit 10/13/2023 10/12/2022, 01/10/20 21 Depression Monitoring 10/13/2023 10/12/2022 CKD PHOS USE SMARTSET 87979 09/16/202408/26, 06/18/2023, 06/06/2023, Additional history exists GFR 09/23/2024 03/25/2024, 02/25, 01/06/2024, Additional history exists HbA1c 09/23/2024 03/25/2024, 08/26, 04/24/2023, Additional history exists Diabetic Foot Exam 10/02/2024 10/03/2023, 1 07/24/2019, 04/06/2019, Additional history exists Diabetic Eye Exam 03/05/2025 03/05/2024, , 03/05/2024, Additional history exists Mammogram 03/05/2025 03/05/2024, 07/2022, 02/26/2023, Additional history exists CKD HGB USE SMARTSET 98907 03/25/202503/25, 03/25/2024, 03/16/2024, Additional history exists Albumin/Creatinine Ratio 03/27/2025 024, 01/24/2023, 09/06/2022, Additional history exists Colonoscopy 03/17/2026 03/17/2021, 02/25, [...] disease (HCC) Type 2 diabetes mellitus with hemoglobin A1c goal of less than 8.0% (HCC) documented in this encounter Advance Directives Documents on File Type Date Recorded 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 No Care Teams Epic Stork Specialists Relationship Specialty Start Date End Date Chris Asencio DO [address] [place] [address] PCP - General Family Medicine 01/07/18 documented as of this encounter
--- OUTSIDE RECORDS SUMMARY | 2024-09-21 22:34 | External Medical Summary | Summary of Care ---
Author Name Unknown Organization [facility] Address [address] [place] [address] Phone [phone] Care Team Providers Care Board Liner Operator Name Role Phone Jessica Asencio DO Primary Care Provider Reason for Visit * Reason Comments eRx-Medication Refill Encounter Details Date Type Department Care Team (Late st Contact Info) Description 09/10/2024 Refill Family Practice [facility] [address] [place] [address] Jessica Asencio DO [address] [place] [address] Right knee pain, unspecified chronicity Allergies Active Allergy Reactions Criticality Noted Date [...] day E11.9 400 Strip 5 023 Active ChipSensorsTouch UltraSoft LancetsIndications :Type 2 diabetes mellitus with [...] 09/17/19 24 3:16 PM EDT 023 Active ChipSensorsToGold Lasso Verio Flex System w/Device Kit USE 1 DEVICE DIRECTED EVERY EVENING. UP TO 4 TIMES A DAY TO CHECK BLOOD GLUCOSE E11.9 023 Active Dexcom G7 Machine Shorthand Reporter Device Use as directed. Active Dexcom G7 Sensor Use as directed. Active Triamcinolone Acetonide 0.1 % External Ointment (Aristocort) Apply topically to affected area 2 times a day 80 g 5 10/18/19 24 12:34 PM EDT 024 Active clonazePAM 0.5 MG Oral Tablet (KlonoPIN) Take 1 Tablet by mouth 3 times a day as needed. 024 Active Calcium-Cholecalci ferol-Zinc 650-20-5.5 MG-MCG-MG Oral Tablet Chewable Take 1 Tablet by mouth in the morning and 1 Tablet before bedtime. Active Acetaminophen 500 MG Oral Tablet (Tylenol) Take 2 Tablets by mouth 2 times a day. Active Calcitonin ([place]) 200 UNIT/ACT Nasal Solution Administer 1 [place] into one nostril in the morning. alternate [...] before bedtime. 40 Capsule 024 Active Methscopolamine [place] 2.5 MG Oral TabletIndications: Irritable bowel syndrome with diarrhea TAKE 1 TAB UP TO 3 TIMES DAILY NEEDED FOR ABDOMINAL CRAMPS & DIARRHEA, 270 Tablet 1 Active Aspirin 81 MG Oral Tablet Chewable [...] hemoglobin A1c goal of less than 8.0% ([facility]) Inject 3 mg under the skin once a week. Replaces ozempic 6 mL 025 Active Pramipexole Dihydrochloride 1 MG Oral Tablet (Mirapex)Indicatio ns:Right knee pain, unspecified chronicity TAKE 1 TABLET BY MOUTH EVERYDAY AT BEDTIME 90 Tablet 1 025 Active Ferate 240 (27 Fe) MG Oral Tablet (Ferrous Gluconate) TAKE 1 TABLET BY MOUTH EVERY DAY 90 Tablet 1 025 Active Ferrous Gluconate 240 (27 Fe) MG Oral Tablet (Ferate) TAKE BY MOUTH 1 TABLET DAILY . 90 Tablet 3 08/06/19 24 2:42 PM EDT 2024 Discontinued Pramipexole Dihydrochloride 1 MG Oral Tablet (Mirapex)Indicatio ns:Right knee pain, unspecified chronicity TAKE 1 TABLET BY MOUTH EVERYDAY AT BEDTIME 90 Tablet 1 024 2024 Discontinued Insulin Glargine Solostar 100 UNIT/ML Subcutaneous Solution Pen-injector (Lantus SoloStar)Indicatio ns:Type 2 diabetes mellitus with hemoglobin A1c goal of less than 8.0% ([facility]) Inject 20 Units under the skin daily. Replaces tresiba 15 mL 4 025 2024 Discontinued(R efill) NovoLOG FlexPen 100 UNIT/ML Subcutaneous Solution Pen-injector (insulin aspart)Indications :Type 2 diabetes mellitus with hemoglobin A1c goal of less than 8.0% ([facility]) inject 5 units before breakfast, 2 units [...] Overview (06/04/2014): Signed 06/04/2014 Pranav Sanchez MD [facility] [place] Spinal pain 06/04/2014 02/02/2017 Type 2 diabetes [...] mRNA, LNP-s, No Pre serve, 2-Dose Series (CV Ingenuity) 09/09/2020,08/19/2020 Covid-19, Mrna, Lnp-s, Pf, B ivalent, [...] encounter Miscellaneous Notes * Telephone Encounter - Dean Coppola DO - 09/11/2024 9:57 AM EDTSigned Prescriptions: Disp Refills Pramipexole Dihydrochloride 1 MG Oral Tabl*90 Tab*1 Sig: TAKE 1 TABLET BY MOUTH EVERYDAY AT BEDTIME Authorizing Provider: DEAN COPPOLA Ferate 240 (27 Fe) MG Oral Tablet (Ferrous*90 Tab*1 Sig: TAKE 1 TABLET BY MOUTH EVERY DAY Authorizing Provider: JESSICA ASENCIO Ordering User: EVARISTO TATE * Telephone Encounter - Evaristo Tate RP - 09/11/2024 7:40 AM EDTPending Prescriptions: Disp Refills Pramipexole Dihydrochloride 1 MG Oral Tabl*90 Tab*1 Sig: TAKE 1 TABLET BY MOUTH EVERYDAY AT BEDTIME Signed Prescriptions: Disp Refills Ferate 240 (27 Fe) MG Oral Tablet (Ferrous*90 Tab*1 Sig: TAKE 1 TABLET BY MOUTH EVERY DAY Authorizing Provider: JESSICA ASENCIO Ordering User: EVARISTO TATE ----- * Telephone Encounter - Evaristo Tate RPh - 09/11/2024 7:39 AM EDT Did you pend patient's preferred pharmacy and medication before forwarding?yes Pharmacy: [id number] [address] [facility] Pending Prescriptions: Disp Refills Pramipexole Dihydrochloride 1 MG Oral Tab*90 Tab*1 Sig: TAKE 1 TABLET BY MOUTH EVERYDAY AT BEDTIME Signed Prescriptions: Disp Refills Ferate 240 (27 Fe) MG Oral Tablet (Ferrous*90 Tab*1 Sig: TAKE 1 TABLET BY MOUTH EVERY DAY Authorizing Provider: JESSICA ASENCIO Ordering User: EVARISTO TATE Last Visit: 08/28/2024 (in office), 06/30/2021 (telemedicine) Next Visit: 04/15/2025 If no future appointments scheduled, and last appointment is greater than a year ago, please schedule patient for a follow-up appointment Last date the medication was ordered: 05/13/24 Is this request for a controlled substance?No Urine Drug Screen:No results found. However, due to the size of the patient record, not all encounters were searched. Please check Results Review for a complete set of results. Patient Phone Numbers Labs: Lab Results Component Value Date/Time CREAT 1.1 (H) 03/25/2024 01:11 PM CREAT 0.95 09/20/2021 12:00 AM CREAT 1.0 05/24/2020 11:20 AM POTASSIUM 3.5 03/25/2024 01:11 PM POTASSIUM 3.8 09/20/2021 12:00 AM POTASSIUM 4.0 05/24/2020 11:20 AM TSH 3.15 12/28/2022 11:49 AM TSH 1.19 05/06/2019 11:23 AM LDL 65 03/25/2024 01:11 PM LDL 34 09/06/2022 12:35 PM LDL 61 10/30/2019 03:49 PM LDL 78 05/14/2018 12:26 PM ALT 22 03/25/2024 01:11 PM ALT 15 10/30/2019 03:49 PM HGBA1C 6.1 (H) 03/25/2024 01:11 PM HGBA1C 6.2 (A) 09/15/2021 12:00 AM HGBA1C 6.7 (H) 05/24/2020 11:20 AM documented in this encounter Plan of Treatment Upcoming Encounters Date Type Department Care Team (Late st Contact Info) Description 09/14/2024 3:40 PM EDT Office Visit [facility] [address] [place] [phone] Phuc Grider MD [address] [facility] [place] [place] [address] 09/21/2024 2:30 PM EDT Office Visit Hematology/Oncology [facility] [address] [place] [phone] Henok Stauffer MD [address] [place] [id number] 09/22/2024 2:00 PM EDT Office Visit [facility] [address] [place] [phone] Tonya Murray PA-C [address] [place] [address] 10/07/2024 2:40 PM EDT Office Visit Pharmacy, [place] [facility] [address] [facility] [phone] [facility] [address] [facility] [place] [address] 11/24/2024 2:40 PM EDT Office Visit Nephrology, Misty Calderon [address] [place] [address] Eric Day MD [address] [place] [address] 03/29/2025 3:45 PM EST Office Visit Ophthalmology, [place] [address] [facility] [place] [phone] Ernie Rivers, DO [address] [place] [address] 04/15/2025 10:00 AM EST Office Visit Family Practice [facility] [address] [place] [address] Jessica Asencio, [address] [place] [address] Scheduled Procedures Name Priority Associated Diagnoses Date/Ti me COLONOSCOPY FLEXIBLE PROXIMA L DIAGNOSTIC Recall Family history of colon cancer Health Maintenance Due Date Last Done Comments Cologuard 1997 Fecal Occult Blood Test 1997 Sigmoidoscopy 1997 Zoster Vaccines (2 of 3) 05/07/2013 03/12/2013 Adult Wellness Visit 10/13/2023 10/12/2022, 01/10/20 21 Depression Monitoring 10/13/2023 10/12/2022 CKD PHOS USE SMARTSET 79514 09/16/202408/26, 06/18/2023, 06/06/2023, Additional history exists GFR 09/23/2024 03/25/2024, 02/25, 01/06/2024, Additional history exists HbA1c 09/23/2024 03/25/2024, 08/26, 04/24/2023, Additional history exists Diabetic Foot Exam 10/02/2024 10/03/2023, 1 07/24/2019, 04/06/2019, Additional history exists Diabetic Eye Exam 03/05/2025 03/05/2024, , 03/05/2024, Additional history exists Mammogram 03/05/2025 03/05/2024, 07/2022, 02/26/2023, Additional history exists CKD HGB USE SMARTSET 33355 03/25/202503/25, 03/25/2024, 03/16/2024, Additional history exists Albumin/Creatinine [...] with stage 3b chronic kidney disease (HCC) Right knee pain, unspecified chronicity documented in this encounter Advance Directives Documents on File Type Date Recorded Patient Mobile Tester Expl bhargav MCGILL 10/20/2021 [place] [facility] FOR LIFE-SUSTAINING TREATMENT * Full [...] Power of Attor buddy? No Care Teams Board Liner Operator Relationship Specialty Start Date End Date Jessica Asencio DO [address] [place] [place] [phone] PCP - General Family Medicine 01/07/18 documented as of this encounter
--- OUTSIDE RECORDS SUMMARY | 2024-09-21 22:34 | External Medical Summary | Summary of Care ---
Author Name Unknown Organization [facility] Address [address] [place] [address] Phone [phone] Care Team Providers Care Turkey Picker Name Role Phone Phuc Grider MD Primary Care Provider Reason for Visit * Reason Comments NEW PATIENT Patient is here to [facility].Patient has concerns about a possible sinus infection, green mucus, and sore throat that started Saturday. Encounter Details Date Type Department Care Team (Latest Contact Info) Description 09/14/2024 3:40 PM EDT Office [facility] [facility] [place] [phone] Phuc Grider MD [address], [place] [phone] Type 2 diabetes mellitus with diabetic cataract, with long-term current use of insulin ([facility])*; Type 2 diabetes mellitus with hemoglobin A1c goal of less than 8.0% ([facility]); Moderate persistent asthma without complication; HTN, goal below 130/80; Irritable bowel syndrome with diarrhea; Hypertensive kidney disease with stage 3b chronic kidney disease ([facility]); PTSD (post-traumatic stress disorder); Medical marijuana use; Acute non-recurrent frontal sinusitis; Primary pulmonary hypertension (HCC); Major depressive disorder, recurrent, moderate ([facility]); Type 2 diabetes mellitus with both eyes affected by mild nonproliferative retinopathy without macular edema, with long-term current use of insulin (HCC); Type 2 diabetes mellitus with stage 3a chronic kidney disease, with long-term current use of insulin (HCC); Generalized anxiety disorder; Dyslipidemia, goal LDL below 100 Allergies Active Allergy Reactions Criticality Noted Date [...] Each 1 05/10/2023 6:19 PM EST 05/09/20 23 Active Fluticasone Furoate-Vilanterol 100-25 MCG/ACT Inhalation Aerosol Powder Breath Activated (BREO ellipta)Indications :Moderate persistent asthma without complication INHALE 1 PUFF BY MOUTH EVERY DAY 180 Each 3 09/04/2023 5:45 PM EDT 05/09/20 23 Active Budesonide 0.5 MG/2ML Inhalation Suspension (Pulmicort)Indicati ons:Acute respiratory disease due to COVID-19 virus INHALE VIA NEBULIZER 1 VIAL IN THE MORNING AND 1 VIAL BEFORE BEDTIME 360 mL 3 09/04/2023 5:45 PM EDT 05/09/20 23 Active Fluticasone Propionate 50 MCG/ACT Nasal Suspension (Flonase)Indication s:LRTI (lower respiratory tract infection),Moderate persistent asthma with acute exacerbation,Acute URI Administer 2 Sprays into each nostril in the morning and 2 Sprays before bedtime. 48 g 3 09/17/2023 3:16 PM EDT 05/09/20 Active OxThera Flex System w/Device Kit USE 1 DEVICE DIRECTED EVERY EVENING. UP TO 4 TIMES A DAY TO CHECK BLOOD GLUCOSE E11.9 04/17/20 23 Active Dexcom G7 Legal Billing Clerk Device Use as directed. Active Dexcom G7 [...] mouth 2 times a day. Active Calcitonin ([place]) 200 UNIT/ACT Nasal Solution Administer 1 [place] into one nostril in the morning. alternate nostrils.. 3 mL 09/25/19 24 Active buPROPion HCl ER (SR) [...] bedtime. 40 Capsule 04/14/20 24 Active Methscopolamine [place] 2.5 MG Oral TabletIndications:I rritable bowel syndrome [...] hemoglobin A1c goal of less than 8.0% ([facility]) Inject 3 mg under the skin once [...] Overview (06/04/2014): Signed 06/04/2014 Pranav Sanchez MD [facility] [place] Spinal pain 06/04/2014 02/02/2017 Type 2 diabetes [...] mRNA, LNP-s, No Pre serve, 2-Dose Series ([employer]) 09/09/2020,08/19/2020 Covid-19, Mrna, Lnp-s, Pf, B ivalent, [...] Sign Reading Time Taken Comments Blood Pressure 118/77 09/14/2024 3:34 PM EDT Pulse 69 09/14/2024 3:34 PM EDT Temperature 35.9 °C (96.6 °F) 09/14/2024 3:34 PM ED T Respiratory Rate 18 09/14/2024 3:34 PM EDT Oxygen Saturation 95% 09/14/2024 3:34 PM EDT Inhaled Oxygen Concentration - - Weight 117 kg (257 lb 14.4 oz) 09/14/2024 3:34 P M EDT Height - - Body Mass Index 38.09 08/28/2024 1:45 PM EDT documented in this encounter Patient Instructions * Patient Instructions* Misti Miller LPN - 09/14/2024 3:39 PM EDT Diabetes: Keeping Feet Healthy Inspect your feet every day for signs of a problem. Diabetes can damage nerves in your feet and cause neuropathy. This condition makes it hard for you to feel injuries or sore spots. Diabetes can also change blood flow, making it harder for small problems, like a blister, to heal properly. In fact, minor injuries can quickly become serious infections that send you to the hospital. Practice self-care to protect your feet and keep them healthy. Take Special Care Inspect your feet daily for problems such as redness, blisters, cracks, dry skin, or numbness. Use a mirror to see the bottoms of your feet. Or, ask for help. Manage your diabetes. Monitor and control your blood sugar. Take all your medications as prescribed. Avoid walking barefoot, even indoors. Wash your feet with warm water and mild soap. Dry well, especially between toes. Don’t treat corns or calluses yourself. Talk to your doctor or surgeon partner (a doctor who specializes in foot care) if you need assistance trimming your toenails. Use moisturizing cream or lotion if you have dry skin, but don’t use it between toes. Don’t use heating pads on your feet. If you have neuropathy, you could get a burn and not feel it. Stop smoking. Smoking restricts blood flow and can make it harder for wounds to heal. Have Regular Checkups Foot problems can develop quickly. So be sure to follow your healthcare team’s schedule for regular checkups. During office visits, take off your shoes and socks as soon as you get in the exam room. Ask your healthcare provider to examine your feet for problems. This will make it easier to find and treat small skin irritations before they get worse. Regular checkups can also help keep track of the blood flow and feeling in your feet. If you have neuropathy, you may need to have checkups more often. Wear Proper Footwear Wearing proper footwear is very important. If areas of your feet have been damaged by too much pressure, your healthcare provider may recommend changing your footwear. In some cases, avoiding high heels or tight work boots may be all that’s needed. Or, your healthcare provider may recommend special shoes or custom inserts. These help protect your feet and keep existing irritations from getting worse. If you need special footwear, ask your healthcare provider if you qualify for Medicare’s diabetic shoe program. Make Sure Shoes and Socks Fit Any pair of shoes--new or old--should feel comfortable as soon as you put them on. There shouldn’t be any rubbing when you walk. Wear the right shoe for any activity. For instance, a running shoe is designed to keep your feet injury-free while jogging. Buy shoes at the end of the day, when your feet are larger. Make sure they provide support without feeling too loose. Make sure your socks fit, t oo. Wear soft, seamless, well-padded socks for activity. Cotton or microfiber socks are best to help to absorb sweat. To protect your feet, avoid shoes that are open-toed or open-heeled. If you have questions about what kinds of shoes and socks are best, talk to your healthcare team. Get Regular Exercise Regular exercise improves blood flow in your feet. It also increases foot strength and flexibility.Gentle exercises, like walking or riding a stationary bicycle, are best. You can also do special foot exercises. Just be sure to talk with your healthcare provider before starting any exercise program. Also mention if any exercise causes pain, redness, or other signs of foot problems. Note: If you have any kind of break in the skin of your foot or ankle, keep the area clean. Then call your doctor--especially if the area doesn’t appear to be healing. © 6754-9462 [employer], [address] [place] [address], [place] [address]. All rights reserved. This information is not intended as a substitute for professional medical care. Always follow your healthcare professional's instructions. documented in this encounter Progress Notes * Phuc Grider MD - 09/14/2024 3:41 PM EDT Images from the original note were not included. Donna Alejandre is a 74 year old female that presents for NEW PATIENT (Patient is here to establish care./Patient has concerns about a possible sinus infection, green mucus, and sore throat that started Saturday. ) History of Present Illness The patient, a 74-year-old female with a complex medical history including type two diabetes, CKD stage three A, moderate persistent asthma, hypertension, IBS, obesity, GERD, PTSD, depression, anxiety, and medical marijuana use, presents to establish care. She reports symptoms of a sinus infection, including mucus production and a sore throat, which havebeen present since Saturday. She also discusses struggles with depression, insomnia, and memory issues, which have been worsening. She has a history of falling, with four falls in the past three months. She is currently experiencing issues with her diabetes management, with blood sugars fluctuating and a recent change in medication from Ozempic to Trulicity. She also reports a history of toxic shock and has been turned down for shoulder surgery due to her complex medical history. Objective BP 118/77 | Pulse 69 | Temp 96.6 °F (35.9 °C) (Tympanic) | Resp 18 | Wt 257 lb 14.4 oz (117 kg) |SpO2 95% | BMI 38.09 kg/m² | BSA 2.39 m² Physical Exam Results LABS A1c: 6.1% (02/2024) Creatinine: 1.1 mg/dL (02/2024) GFR: 53 mL/min/1.73m² (02/2024) Total Cholesterol: 125 mg/dL (02/2024) LDL Cholesterol: 65 mg/dL (02/2024) Assessment and Plan Assessment & Plan Type 2 diabetes mellitus with insulin use Blood glucose levels variable, recent A1c 6.1%. Transitioned to Trulicity from Ozempic to avoid plateau effect. - Continue Trulicity 3 mg weekly, Lantus 28 units daily, NovoLog 10 units with meals. - Monitor blood glucose levels regularly. - Follow up with [facility] for diabetes management. Chronic kidney disease, stage 3 CKD stage 3 with improved GFR from 53 to 60 mL/min/1.73m². History of peritoneal dialysis, currently managed without dialysis. - Order lab work to assess kidney function, phosphorus, and blood count. Obesity Weight gain after previous loss with Ozempic. Transitioned to Trulicity for weight management and improved insulin resistance. - Monitor weight and response to Trulicity. Sinusitis Acute sinusitis with dark green mucus. No antibiotic allergies. Avoid steroids due to adverse effects. Amoxicillin appropriate. - Prescribe amoxicillin for sinusitis. Moderate persistent asthma Asthma managed with Pulmicort and Breo Ellipta. No acute exacerbations. Current regimen effective. - Continue Pulmicort twice daily via nebulizer. - Continue Breo Ellipta as prescribed. Gastroesophageal reflux disease (GERD) GERD managed with famotidine and pantoprazole. No acute symptoms. Current regimen effective. - Continue famotidine 40 mg daily. - Continue pantoprazole 40 mg daily. Depression Chronic depression managed by psychologist and psychiatrist. Clonazepam reduced to 0.5 mg daily dueto fall risk and dependency concerns. - Continue current psychiatric management with psychologist and psychiatrist. - Use clonazepam sparingly, maximum once daily. Chronic pain Chronic pain managed with Tylenol and medical marijuana, allowing daily functioning. - Continue current pain management regimen with Tylenol and medical marijuana. Visit Diagnoses and Orders 1. Type 2 diabetes mellitus with diabetic cataract, with long-term current use of insulin ([facility]) DIABETES FOOT EXAM, COMPREHENSIVE METABOLIC PANEL, HEMOGLOBIN A1C 2. Type 2 diabetes mellitus with hemoglobin A1c goal of less than 8.0% ([facility]) 3. Moderate persistent asthma without complication 4. HTN, goal below 130/80 CBC WITH WBC DIFFERENTIAL 5. Irritable bowel syndrome with diarrhea 6. Hypertensive kidney disease with stage 3b chronic kidney disease ([facility]) PHOSPHORUS 7. PTSD (post-traumatic stress disorder) 8. Medical marijuana use 9. Acute non-recurrent frontal sinusitis Amoxicillin 875 MG Oral Tablet 10. Primary pulmonary hypertension ([facility]) 11. Major depressive disorder, recurrent, moderate ([facility]) 12. Type 2 diabetes mellitus with both eyes affected by mild nonproliferative retinopathy without macular edema, with long-term current use of insulin ([facility]) 13. Type 2 diabetes mellitus with stage 3a chronic kidney disease, with long- term current use of insulin ([facility]) 14. Generalized anxiety disorder 15. Dyslipidemia, goal LDL below 100 Wrap-Up Follow Up: Return in about 6 months (around 03/16/2025) for 6 month return for yearly physical. | For: 6 month return for yearly physical I spent a total of 40-54 minutes (exact time 45 mins) on the date of service in preparation, delivery, and documentation of the care provided to Liane Alejandre excluding any time spent in the performance of separately billed services. Text in this note was generated using an [employer] documentation service. I discussed the use of a device to record and summarize our discussion today. All persons present during the encounter consented to its use. * Misti Miller LPN - 09/14/2024 3:33 PM EDT Socks and Shoes Removed for Annual Diabetic Foot Screening RIGHT FOOT: No Reddened, Cracking, Or Open Areas Noted. RIGHT Dorsalis Pedis Pulse: Palpable RIGHT Posterior Tibial Pulse: Palpable RIGHT Monofilament:Patient reports difficulty feeling monofilament at Great toe- plantar surface, Third toe-plantar surface, Ball of Foot-base of great toe, Ball of Foot-base of 3rd toe, and Ball of Foot-base of little toe LEFT FOOT: No Reddened, Cracking or Open Areas Noted. LEFT Dorsalis Pedis Pulse: Palpable LEFT Posterior Tibial Pulse: Palpable LEFT Monofilament:Patient reports difficulty feeling monofilament at Great toe- plantar surface, Third toe-plantar surface, Ball of Foot-base of great toe, Ball of Foot-base of 3rd toe, and Ball of Foot-base of little toe Do you need diabetic shoes: Yes DM Foot Exam completed today. Provider aware. Misti Miller LPN documented in this encounter Nursing Notes * Misti Miller LPN - 09/14/2024 3:32 PM EDT The patient has been properly identified by confirmation of name and date of . Chief Complaint Patient presents with NEW PATIENT Patient is here to establish care. Patient has concerns about a possible sinus infection, green mucus, and sore throat that started Saturday. documented in this encounter Plan of Treatment Upcoming Encounters Date Type Department Care Team (Late st Contact Info) Description 09/21/2024 2:30 PM EDT Office Visit Hematology/Oncology [facility] [place] [address] [place] [address] Henok Stauffer MD [address] [facility] [place], [place] [address] 09/22/2024 2:00 PM EDT Office Visit [facility] [address] [facility] [place] [phone] Tonya Murray PA-C [address] [place] [phone] 10/07/2024 2:40 PM EDT [facility] [place] [facility] [phone] [place], [address] [address] 11/24/2024 2:40 PM EDT Office Visit Nephrology, Janee Yumiko [address] [place] [address] Eric Day MD [address] [facility] [place], [place] [address] 03/17/2025 2:20 PM EDT Office Visit [facility] [phone] Phuc Grider MD [address] [place] [id number] 03/29/2025 3:45 PM EST Office Visit Ophthalmology, [place] [address] [place] [address] Ernie Rivers DO [address] [place] [address] 04/15/2025 10:00 AM EST Office Visit Family [facility] [address] [place] [address] Chris Asencio, DO [address] [place] [address] Scheduled Orders Name Type Priority Associated Diagnoses Orde r Schedule COMPREHENSIVE METABOLIC PANEL Lab Routine Type 2 diabetes mellitus with diabetic cataract, with long-term current use of insulin (HCC) Expected: 09/14/2024 (Approximate), Expires: 09/14/2025 PHOSPHORUS Lab Routine Hypertensive kidney disease with stage 3b chronic kidney disease (HCC) Expected: 09/14/2024 (Approximate), Expires: 09/14/2025 HEMOGLOBIN A1C Lab Routine Type 2 diabetes mellitus with diabetic cataract, with long-term current use of insulin (HCC) Expected: 09/14/2024 (Approximate), Expires: 09/14/2025 CBC WITH WBC DIFFERENTIAL Lab Routine HTN, goal below 130/80 Expected: 09/14/2024 (Approximate), Expires: 09/14/2025 Scheduled Procedures Name Priority Associated Diagnoses Date/Ti me COLONOSCOPY FLEXIBLE PROXIMA L DIAGNOSTIC Recall Family history of colon cancer Health Maintenance Due Date Last Done Comments Cologuard 1997 Fecal Occult Blood Test 1997 Sigmoidoscopy 1997 Zoster Vaccines (2 of 3) 05/07/2013 03/12/2013 Adult Wellness Visit 10/13/2023 10/12/2022, 01/10/20 21 Depression Monitoring 10/13/2023 10/12/2022 CKD PHOS USE SMARTSET [id number] 09/16/202408/26, 06/18/2023, 06/06/2023, Additional history exists GFR 09/23/2024 03/25/2024, 02/25, 01/06/2024, Additional history exists HbA1c 09/23/2024 03/25/2024, 08/26, 04/24/2023, Additional history exists Diabetic Eye Exam 03/05/2025 03/05/2024, , 03/05/2024, Additional history exists Mammogram 03/05/2025 03/05/2024, 07/2022, 02/26/2023, Additional history exists CKD HGB USE SMARTSET 15722 03/25/202503/25, 03/25/2024, 03/16/2024, Additional history exists Albumin/Creatinine [...] cataract, with long-term current use of insulin (HCC)- Primary Type 2 diabetes mellitus with hemoglobin A1c goal of less than 8.0% (HCC) Moderate persistent asthma without complication Unspecified asthma HTN, goal below 130/80 Unspecified essential hypertension Irritable bowel syndrome with diarrhea Irritable bowel syndrome Hypertensive kidney disease with stage 3b chronic kidney disease (HCC) PTSD (post-traumatic stress disorder) Posttraumatic stress disorder Medical marijuana use Encounter for long-term (current) use of other medications Acute non-recurrent frontal sinusitis Primary pulmonary hypertension (HCC) Primary pulmonary hypertension Major depressive disorder, recurrent, moderate (HCC) Major depressive disorder, recurrent episode, moderate Type 2 diabetes mellitus with both eyes affected by mild nonproliferative retinopathy without macular edema, with long-term current use of insulin ([facility]) Type 2 diabetes mellitus with stage 3a chronic kidney disease, with long-term current use of insulin (HCC) Generalized anxiety disorder Dyslipidemia, goal LDL below 100 Other and unspecified hyperlipidemia documented in this encounter Advance Directives Documents on File Type Date Recorded 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 No Care Teams Turkey Picker Relationship Specialty Start Date End Date September, Phuc Gordon MD [address] [facility] [place] [address] PCP - General Family Medicine 09/14/24 documented as of this encounter
--- OUTSIDE RECORDS SUMMARY | 2024-09-21 22:34 | External Medical Summary ---
Author Name Unknown Address Unknown Organization [id number]:LABORATORY [facility] [place] - [address] [place] [address] Laboratory Report Ordering Provider Test Date Status 09/15/2024 08:06:47 Final Observation Date Value Abnormality Reference (Units ) Status WBC, Total 09/15/2024 08:06:47 7.17 4.00-10.80 (K/uL) Final RBC 09/15/2024 08:06:47 4.35 3.85-5.15 (M/uL) Final Hemoglobin 09/15/2024 08:06:47 13.0 12.0-15.3 (g/dL) Final HCT 09/15/2024 08:06:47 40.7 36.0-45.2 (%) Final MCV 09/15/2024 08:06:47 93.6 81.5-97.5 (fL) Final MCH 09/15/2024 08:06:47 29.9 27.0-34.0 (pg) Final MCHC 09/15/2024 08:06:47 31.9 32.0-36.0 (g/dL) Final RDW 09/15/2024 08:06:47 15.0 11.5-15.5 (%) Final Platelets 09/15/2024 08:06:47 280 140-400 (K/uL) Final MPV 09/15/2024 08:06:47 11.5 6.6-11.1 (fL) Final Nucleated erythrocytes/100 leukocytes [Ratio] in Blood by Automated count 09/15/2024 08:06:47 0 <=0 (/100 WBCs) Final Performing Location LAB[facility]ORY [facility] [place] - [address] [place] [address]
--- OUTSIDE RECORDS SUMMARY | 2024-09-21 22:34 | External Medical Summary ---
Author Name Unknown Address Unknown Organization [id number]:LABORATORY [facility] - [address] [place] [address] Laboratory Report Ordering Provider Test Date Status 09/15/2024 08:06:47 Final Observation Date Value Abnormality Reference (Units ) Status Phosphate 09/15/2024 08:06:47 4.2 2.5-4.8 (m g/dL) Final Performing Location [facility]ATORY [facility] - [address] [place] [address]
--- OUTSIDE RECORDS SUMMARY | 2024-09-21 22:34 | External Medical Summary ---
Author Name Unknown Address Unknown Organization [id number]:LABORATORY [facility] [place] - [address] [facility] [address] [place] [address] Laboratory Report Ordering Provider Test Date Status JOSIANE,09/15/2024 08:06:47 Final Observation Date Value Abnormality Reference (Units ) Status SYNC LEUKOCYTES IN BLOOD BY AUTOMATED COUNT 09/15/2024 08:06:47 7.17 4.00-10.80 (K/uL) Final Segs 09/15/2024 08:06:47 54.1 40.0-75.0 (%) Final Lymphs % 09/15/2024 08:06:47 32.5 18.0-42.0 (%) Final Monos 09/15/2024 08:06:47 8.9 1.0-11.0 (%) Final Eosinophils 09/15/2024 08:06:47 3.3 0.0-6.0 (%) Final Basos 09/15/2024 08:06:47 0.6 0.0-2.0 (%) Final Immature Granulocyte, Percent 09/15/2024 08:06:47 0.6 0.0-2.0 (%) Final Absolute Segs 09/15/2024 08:06:47 3.88 1.80-7.70 (K/uL) Final Lymphs, absolute 09/15/2024 08:06:47 2.33 1.00-4.80 (K/ul) Final Monos, Abs 09/15/2024 08:06:47 0.64 0.00-1.10 (K/uL) Final Eos, Abs 09/15/2024 08:06:47 0.24 0.00-0.70 (K/uL) Final Basos, Abs 09/15/2024 08:06:47 0.04 0.00-0.20 (K/uL) Final Immature Granulocytes, Number 09/15/2024 08:06:47 0.04 0.00-0.20 (K/uL) Final Performing Location LABORATORY [facility] [place] - [address] [facility] [address]
--- OUTSIDE RECORDS SUMMARY | 2024-09-21 22:34 | External Medical Summary | Summary of Care ---
Author Name Unknown Organization [facility] Address [address] [place] [address] Phone [phone] Care Team Providers Care Rn Case Manager Name Role Phone Chris Asencio Primary Care Provider Reason for Visit * Reason Onset Date Comments [facility]: Screening 09/09/2024 Encounter Details Date Type Department Care Team (Late st Contact Info) Description 09/09/2024 Telephone [facility] [address] [place] [address] Maria Teresa Smith LPN [address] [facility] [place]rica [place] [address] [facility]: Screening Allergies Active Allergy [...] BLOOD GLUCOSE E11.9 023 Active Dexcom G7 Concrete Inspector Device Use as directed. Active Dexcom G7 [...] mouth 2 times a day. Active Calcitonin ([place]) 200 UNIT/ACT Nasal Solution Administer 1 [place] into one nostril in the morning. alternate [...] before bedtime. 40 Capsule 024 Active Methscopolamine [place] 2.5 MG Oral TabletIndications: Irritable bowel syndrome [...] hemoglobin A1c goal of less than 8.0% ([facility]) Inject 20 [...] Overview (06/04/2014): Signed 06/04/2014 Pranav Sanchez MD [facility] Pharmacy [place] Spinal pain 06/04/2014 02/02/2017 Type 2 diabetes [...] mRNA, LNP-s, No Pre serve, 2-Dose Series (ThoughtBuzz) 09/09/2020,08/19/2020 Covid-19, Mrna, Lnp-s, Pf, B ivalent, 30 Mcg, IM, 12 yrs and above (ThoughtBuzz) 03/02/2024 Pneumococcal Conjugate Vacc, 13 Valent (Prevnar) [...] time to address it. Vickie Vogel, GwenD, [facility] Clinical Pharmacist Medication Therapy Disease Management 09/11/2024, [...] updated scripts to [id number] [address] [facility] Thank you, Lakshmi Morris [facility] Business Liaison Manager II [facility]acy Services ([facility]) 09/11/2024,10:36 AM * Telephone Encounter - Vickie Vogel RPh - 09/10/2024 6:59 AM EDT Noted by MTM. * Telephone Encounter - Maria Teresa Smith LPN - 09/09/2024 3:18 PM EDT MTM referring Sent to [facility] leadership to review Former [facility] not eligible for [facility] per leadership also was referred to Level [...] Referring care team was notified via : [employer] communication In area but not eligible at this time for [place] documented in this encounter Plan of Treatment Upcoming Encounters Date Type Department Care Team (Late st Contact Info) Description 09/14/2024 3:40 PM EDT Office Visit [facility] [place] [address] [phone] SeptemberPhuc MD [address] [place] [address] 09/21/2024 2:30 PM EDT Office Visit Hematology/Oncology Misty Calderon [place] [address] [place] [phone] Henok Stauffer MD [address] [place] [address] 09/22/2024 2:00 PM EDT Office Visit Interventional [facility] Center [facility] [address] [place] [phone] Tonya Murray PA-C [address] [place] [address] 10/07/2024 2:40 PM EDT Office Visit [facility] [phone] Walter [address] [address] 11/24/2024 2:40 PM EDT Office Visit Nephrology, [facility] [address] [place] [address] Eric Day MD 200 [facility] [place] [place] [address] 03/29/2025 3:45 PM EST Office Visit Ophthalmology, Jeevan [address] [place] [place] [address] Ernie Rivers DO [address] [facility] [place] [address] 04/15/2025 10:00 AM EST Office Visit Family Practice [facility] [place] [address] Chris Asencio DO 132 [facility] [place] [address] Scheduled Procedures Name Priority Associated Diagnoses Date/Ti me COLONOSCOPY FLEXIBLE PROXIMA L DIAGNOSTIC Recall Family history of colon cancer Health Maintenance Due Date Last Done Comments Cologuard 1997 Fecal Occult Blood Test 1997 Sigmoidoscopy 1997 Zoster Vaccines (2 of 3) 05/07/2013 03/12/2013 Adult Wellness Visit 10/13/2023 10/12/2022, 01/10/20 21 Depression Monitoring 10/13/2023 10/12/2022 CKD PHOS USE SMARTSET 06902 09/16/202408/26, 06/18/2023, 06/06/2023, Additional history exists GFR 09/23/2024 03/25/2024, 02/25, 01/06/2024, Additional history exists HbA1c 09/23/2024 03/25/2024, 08/26, 04/24/2023, Additional history exists Diabetic Foot Exam 10/02/2024 10/03/2023, 1 07/24/2019, 04/06/2019, Additional history exists Diabetic Eye Exam 03/05/2025 03/05/2024, , 03/05/2024, Additional history exists Mammogram 03/05/2025 03/05/2024, 07/2022, 02/26/2023, Additional history exists CKD HGB USE SMARTSET 09784 03/25/202503/25, 03/25/2024, 03/16/2024, Additional history exists Albumin/Creatinine [...] Documents on File Type Date Recorded Patient Direct Service Professional Expl anation POLST 10/20/2021 [place] OR [facility] FOR LIFE-SUSTAINING TREATMENT * Full Code [...] Power of Attor buddy? No Care Teams Rn Case Manager Relationship Specialty Start Date End Date Chris Asencio DO [address] [place] [address] PCP - General Family Medicine 01/07/18 documented as of this encounter
--- OUTSIDE RECORDS SUMMARY | 2024-09-21 22:34 | External Medical Summary | Summary of Care ---
Author Name Unknown Organization [facility] Address [address] [place] [address] Phone [phone] Care Team Providers Care Cart Pusher Name Role Phone Asencio Chris Fabiananay Primary Care Provider Reason for Visit * Reason Onset Date Comments Medication Question 09/11/2024 Encounter Details Date Type Department Care Team (Late st Contact Info) Description 09/11/2024 Telephone [facility], Jerrica Mccann [address] [place] [address] [place] [address] [facility] [address] [place], [place] [phone] Medication Question Allergies Active Allergy Reactions Criticality Noted Date [...] this encounter (statuses as of 09/11/2024) Medications Spacer/Aero-Holding Chambers DEVIIndications:Mod erate persistent asthma [...] day E11.9 400 Strip 5 04/17/20 Active MultiZona.comToAnapsis UltraSoft LancetsIndications: Type 2 diabetes mellitus with [...] 3 09/17/2023 3:16 PM EDT 05/09/20 Active Tectura Verio Flex System w/Device Kit USE 1 DEVICE DIRECTED EVERY EVENING. UP TO 4 TIMES A DAY TO CHECK BLOOD GLUCOSE E11.9 04/17/20 Active Dexcom G7 Plant Tech Device Use as directed. Active Dexcom G7 [...] mouth 2 times a day. Active Calcitonin ([place]) 200 UNIT/ACT Nasal Solution Administer 1 [place] into one nostril in the morning. alternate [...] bedtime. 40 Capsule 04/14/20 24 Active Methscopolamine [place] 2.5 MG Oral TabletIndications:I rritable bowel syndrome [...] meals. 30 mL 4 09/12/19 25 Active Hospital, Clinic, or Other Facility Administered [...] Overview (06/04/2014): Signed 06/04/2014 Pranav Sanchez MD [facility] Pharmacy [place] Spinal pain 06/04/2014 02/02/2017 Type 2 diabetes [...] mRNA, LNP-s, No Pre serve, 2-Dose Series (TAKO) 09/09/2020,08/19/2020 Covid-19, Mrna, Lnp-s, Pf, B ivalent, 30 Mcg, IM, 12 yrs and above (TAKO) 03/02/2024 Pneumococcal Conjugate Vacc, 13 Valent (Prevnar) [...] encounter Miscellaneous Notes * Telephone Encounter - Debbie Goldman, [facility] - 09/11/2024 12:43 PM EDT Patient Phone Numbers Returned call to patient. Mailbox full. Twelvefold message sent. Debbie Goldman, PharmD, BCACP Clinical Pharmacist Medication Therapy Disease Management 09/11/2024, 12:43 PM * Telephone Encounter - Sarina Avalos blood donor recruiter - 09/11/2024 8:41 AM EDT Caller's name: Liane Preferred call back number(OFFICE NUMBER FOR ): [phone] Reason for call: Patient called in regards to her insulin instructions. Is a bit confused about what to take and which medication is which. Has to take her insulin for the morning still. Would like acall back from Debbie [facility] when available. Sarina Avalos [employer] [facility] [address] [place] [address] Dr. Johnson [address] [address] [id number] 09/11/2024,8:41 AM documented in this encounter Plan of Treatment Upcoming Encounters Date Type Department Care Team (Late st Contact Info) Description 09/14/2024 3:40 PM EDT Office Visit [facility]f [address] [phone] Phuc Grider MD [address] [place] [address] 09/21/2024 2:30 PM EDT Office Visit Hematology/Oncology [facility] [place] 200 [facility] [place] [phone] Henok Stauffer MD [address] [place] [address] 09/22/2024 2:00 PM EDT Office Visit [facility] Center [facility] [address] [place] [phone] Tonya Murray PA-C [address] [place] [address] 10/07/2024 2:40 PM EDT Office Visit Pharmacy, Walter Cummings [address] [phone] Walter [facility] [address] [facility] [address] 11/24/2024 2:40 PM EDT Office Visit Nephrology, Misty Calderon [address] [place] [address] Eric Day MD 200 [facility] [place] [address] 03/29/2025 3:45 PM EST Office Visit Ophthalmology, Jeevan [address] [place] [address] Ernie Rivers DO [address] [facility] [place] [address] 04/15/2025 10:00 AM EST Office Visit Family Practice [facility] [address] [place] [address] Chris Asencio DO 132 [facility] [place] [address] Scheduled Procedures Name Priority Associated Diagnoses Date/Ti me COLONOSCOPY FLEXIBLE PROXIMA L DIAGNOSTIC Recall Family history of colon cancer Health Maintenance Due Date Last Done Comments Cologuard 1997 Fecal Occult Blood Test 1997 Sigmoidoscopy 1997 Zoster Vaccines (2 of 3) 05/07/2013 03/12/2013 Adult Wellness Visit 10/13/2023 10/12/2022, 01/10/20 21 Depression Monitoring 10/13/2023 10/12/2022 CKD PHOS USE SMARTSET 97235 09/16/202408/26, 06/18/2023, 06/06/2023, Additional history exists GFR 09/23/2024 03/25/2024, 02/25, 01/06/2024, Additional history exists HbA1c 09/23/2024 03/25/2024, 08/26, 04/24/2023, Additional history exists Diabetic Foot Exam 10/02/2024 10/03/2023, 1 07/24/2019, 04/06/2019, Additional history exists Diabetic Eye Exam 03/05/2025 03/05/2024, , 03/05/2024, Additional history exists Mammogram 03/05/2025 03/05/2024, 07/2022, 02/26/2023, Additional history exists CKD HGB USE SMARTSET 67922 03/25/202503/25, 03/25/2024, 03/16/2024, Additional history exists Albumin/Creatinine [...] Documents on File Type Date Recorded Patient Hvac Technician Residential Expl anation POLST 10/20/[address] [place] [address] [facility] FOR LIFE-SUSTAINING TREATMENT * Full [...] Power of Attor buddy? No Care Teams Cart Pusher Relationship Specialty Start Date End Date Chris Asencio DO [address] [place] [address] PCP - General Family Medicine 01/07/18 documented as of this encounter
--- OUTSIDE RECORDS SUMMARY | 2024-09-21 22:34 | External Medical Summary ---
Author Name Unknown Address Unknown Organization K01:[facility] [place] - [address] [address] [address] Laboratory Report Ordering Provider Test Date Status 09/15/2024 08:06:47 Final Observation Date Value Abnormality Reference (Units ) Status BUN 09/15/2024 08:06:47 20 6-20 (mg/dL) Final Creatinine 09/15/2024 08:06:47 1.3 Above high normal 0.5-1.0 (mg/dL) Final Glomerular filtration rate/1.73 sq M.predicted [Volume Rate/Area] in Serum, Plasma or Blood by Creatinine-based formula (CKD-EPI) 09/15/2024 08:06:47 43 Below low normal >=60 (mL/min) Final eGFR is calculated based on the CKD-EPI 2020 equation. Sodium 09/15/2024 08:06:47 140 135-146 (m mol/L) Final Potassium 09/15/2024 08:06:47 3.3 Below low normal 3.5 -5.1 (mmol/L) Final Cl 09/15/2024 08:06:47 98 98-107 (mm ol/L) Final CO2 09/15/2024 08:06:47 31 22-32 (mmo l/L) Final Anion gap 09/15/2024 08:06:47 11 7-15 (mmol /L) Final Glucose 09/15/2024 08:06:47 121 Above high normal 70 -120 (mg/dL) Final Albumin 09/15/2024 08:06:47 4.1 3.8-5.0 (g /dL) Final AST (Aspartate aminotransferase) 09/15/2024 08:06:47 18 10-35 (U/L) Fin al Alk Phos 09/15/2024 08:06:47 140 Above high normal 35 -130 (U/L) Final Bilirubin, Total 09/15/2024 08:06:47 0.6 <=1 .2 (mg/dL) Final Calcium 09/15/2024 08:06:47 9.7 8.4-10.2 ( mg/dL) Final Protein 09/15/2024 08:06:47 7.0 6.0-8.3 (g /dL) Final ALT (Alanine aminotransferase) 09/15/2024 08:06:47 16 10-35 (U/L) Spencer galvez Performing Location [facility] [place] - [address] [facility] [address]
--- OUTSIDE RECORDS SUMMARY | 2024-09-21 22:35 | External Medical Summary | Summary of Care ---
Author Name Unknown Organization [facility] Address [address] [place] [address] Phone [phone] Care Team Providers Care Financial Systems Director Name Role Phone Chris Asencio Primary Care Provider Reason for Visit * Reason Onset Date Comments [facility]: Screening 09/09/2024 Encounter Details Date Type Department Care Team (Late st Contact Info) Description 09/09/2024 Telephone [facility] [address] [place] [address] Maria Teresa Smith LPN [address] [facility] Jerrica [place] [address] [facility]: Screening Allergies Active Allergy [...] as of this encounter (statuses as of 09/09/2024) Medications Spacer/Aero-Holding Chambers DEVIIndications:Mod erate persistent asthma [...] day E11.9 400 Strip 5 04/17/20 Active SudikshaTouch UltraSoft LancetsIndications: Type 2 diabetes mellitus with [...] 3 09/17/2023 3:16 PM EDT 05/09/20 Active SudikshaToAvito.ru Verio Flex System w/Device Kit USE 1 DEVICE DIRECTED EVERY EVENING. UP TO 4 TIMES A DAY TO CHECK BLOOD GLUCOSE E11.9 04/17/20 Active Dexcom G7 Technology Teacher Device Use as directed. Active Dexcom G7 Sensor Use as directed. Active Triamcinolone Acetonide 0.1 % External Ointment (Aristocort) Apply topically to affected area 2 times a day 80 g 5 10/18/2023 12:34 PM EDT 07/11/19 Active Ferrous Gluconate 240 (27 Fe) MG Oral Tablet (Ferate) TAKE BY MOUTH 1 TABLET DAILY . 90 Tablet 3 08/06/2023 2:42 PM EDT 08/01/19 24 Active clonazePAM 0.5 MG Oral Tablet (KlonoPIN) Take 1 Tablet by mouth 3 times a day as needed. 08/07/19 24 Active Calcium-Cholecalcif dayton-Zinc 650-20-5.5 MG-MCG-MG Oral Tablet Chewable Take 1 Tablet by mouth in the morning and 1 Tablet before bedtime. Active Acetaminophen 500 MG Oral Tablet (Tylenol) Take 2 Tablets by mouth 2 times a day. Active Calcitonin ([place]) 200 UNIT/ACT Nasal Solution Administer 1 [place] into one nostril in the morning. alternate [...] bedtime. 40 Capsule 04/14/20 24 Active Methscopolamine [place]cure 2.5 MG Oral TabletIndications:I rritable bowel syndrome [...] WEEK 30 g 5 05/12/20 24 Active Pramipexole Dihydrochloride 1 MG Oral Tablet (Mirapex)Indication s:Right knee pain, unspecified chronicity TAKE 1 TABLET BY MOUTH EVERYDAY AT BEDTIME 90 Tablet 1 05/13/20 24 Active Montelukast Sodium 10 MG Oral [...] BEDTIME. 135 Tablet 1 06/15/19 25 Active Insulin Glargine Solostar 100 UNIT/ML Subcutaneous Solution Pen-injector (Lantus SoloStar)Indication s:Type 2 diabetes mellitus with hemoglobin A1c goal of less than 8.0% (HCC) Inject 20 Units under the skin daily. Replaces tresiba 15 mL 4 07/07/19 25 Active NovoLOG FlexPen 100 UNIT/ML Subcutaneous Solution Pen-injector (insulin aspart)Indications: Type 2 diabetes mellitus with hemoglobin A1c goal of less than 8.0% (HCC) inject 5 units before breakfast, 2 units with lunch and 2 units with supper + CF of 1:50 over 200 15 mL 4 07/07/19 25 Active Furosemide 20 MG Oral Tablet [...] hemoglobin A1c goal of less than 8.0% ([facility]) Inject 3 mg under the skin once a week. Replaces ozempic 6 mL 09/10/19 25 Active Hospital, Clinic, or Other Facility Administered Medication Ordered Dose Route Frequency Start Date End Date Status albuterol sulfate (PROVENTIL) (2.5 MG/3ML) 0.083% inhalation solution 2.5 mgIndications:Moderate persistent asthma without complication 2.5 mg NEBULIZER Q4H PRN 08/13/2018 Active documented as of this encounter (statuses as of 09/09/2024) Active Problems Patient Care Coordination No te [...] as of this encounter (statuses as of 09/09/2024) Resolved Problems Problem Noted Date Diagnosed Date [...] 40 mg daily Lisinopril remains on hold 2 hypotension Type 2 diabetes mellitus wit h [...] Overview (06/04/2014): Signed 06/04/2014 Pranav Sanchez MD [facility] Pharmacy [place] Spinal pain 06/04/2014 02/02/2017 Type 2 diabetes [...] as of this encounter (statuses as of 09/09/2024) Immunizations Name Administration Dates Next Due COVID-19 mRNA, LNP-s, No Pre serve, 2-Dose Series (PowerOasis) 09/09/2020,08/19/2020 Covid-19, Mrna, Lnp-s, Pf, B ivalent, 30 Mcg, IM, 12 yrs and above (PowerOasis) 03/02/2024 Pneumococcal Conjugate Vacc, 13 Valent (Prevnar) [...] encounter Miscellaneous Notes * Telephone Encounter - Maria Teresa Smith LPN - 09/09/2024 3:18 PM EDT MTM referring Sent to [facility] leadership to review Former [facility] not eligible for GAH per leadership also was referred to Level [...] Referring care team was notified via : Epic communication In area but not eligible at this time for GAH documented in this encounter Plan of Treatment Upcoming Encounters Date Type Department Care Team (Late st Contact Info) Description 09/14/2024 3:40 PM EDT Office Visit [facility] Emiliano Bahena [address] [phone] Phuc Grider MD 226 [facility] [place] [address] 09/21/2024 2:30 PM EDT Office Visit Hematology/Oncology [facility] 200 [facility] [place] [phone] Henok Stauffer MD 200 [facility] [place] [address] 09/22/2024 2:00 PM EDT Office Visit Interventional [facility] Center [facility] [address] [place] [phone] Tonya Murray PA-C [address] [place] [address] 10/07/2024 2:40 PM EDT [facility] [address] [phone] Walter [address] [address] 11/24/2024 2:40 PM EDT Office Visit Nephrology, Misty Calderon [address] [place] [address] Eric Day MD 200 [facility] [place] [address] 03/29/2025 3:45 PM EST Office Visit Ophthalmology, Jeevan [address] [facility] [place] [address] Ernie Rivers DO [address] [facility] [place] [address] 04/15/2025 10:00 AM EST Office Visit Family Practice [facility] [address] [place] [address] Chris Asencio DO [facility] [place] [address] Scheduled Procedures Name Priority Associated Diagnoses Date/Ti me COLONOSCOPY FLEXIBLE PROXIMA L DIAGNOSTIC Recall Family history of colon cancer Health Maintenance Due Date Last Done Comments Cologuard 1997 Fecal Occult Blood Test 1997 Sigmoidoscopy 1997 Zoster Vaccines (2 of 3) 05/07/2013 03/12/2013 Adult Wellness Visit 10/13/2023 10/12/2022, 01/10/20 21 Depression Monitoring 10/13/2023 10/12/2022 CKD PHOS USE SMARTSET 20667 09/16/202408/26, 06/18/2023, 06/06/2023, Additional history exists GFR 09/23/2024 03/25/2024, 02/25, 01/06/2024, Additional history exists HbA1c 09/23/2024 03/25/2024, 08/26, 04/24/2023, Additional history exists Diabetic Foot Exam 10/02/2024 10/03/2023, 1 07/24/2019, 04/06/2019, Additional history exists Diabetic Eye Exam 03/05/2025 03/05/2024, , 03/05/2024, Additional history exists Mammogram 03/05/2025 03/05/2024, 07/2022, 02/26/2023, Additional history exists CKD HGB USE SMARTSET 37508 03/25/202503/25, 03/25/2024, 03/16/2024, Additional history exists Albumin/Creatinine [...] Documents on File Type Date Recorded Patient Excellence Coach Expl bhargav POLST 10/20/2021 [place] OR [facility] FOR LIFE-SUSTAINING TREATMENT * Full [...] Power of Attor buddy? No Care Teams Financial Systems Director Relationship Specialty Start Date End Date Chris Asencio DO [address] [place] [address] PCP - General Family Medicine 01/07/18 documented as of this encounter
--- OUTSIDE RECORDS SUMMARY | 2024-09-21 22:35 | External Medical Summary | Summary of Care ---
Author Name Unknown Organization [facility] Address [address] [place] [address] Phone [phone] Care Team Providers Care Project Inspector Name Role Phone Chris Asencio Primary Care Provider Reason for Visit * Reason Onset Date Comments No Show 09/02/2024 Encounter Details Date Type Department Care Team (Late st Contact Info) Description 09/02/2024 Telephone Hematology/Oncology [facility] [address] [place] [phone] Henok Stauffer MD [address] [place] [address] No Show Allergies Active Allergy Reactions Criticality Noted Date [...] as of this encounter (statuses as of 09/04/2024) Medications Spacer/Aero-Holding Chambers DEVIIndications:Mod erate persistent asthma [...] day E11.9 400 Strip 5 04/17/20 Active Mobile IronToTimZon UltraSoft LancetsIndications: Type 2 diabetes mellitus with [...] 3 09/17/2023 3:16 PM EDT 05/09/20 Active Labtrip Verio Flex System w/Device Kit USE 1 DEVICE DIRECTED EVERY EVENING. UP TO 4 TIMES A DAY TO CHECK BLOOD GLUCOSE E11.9 04/17/20 23 Active Dexcom G7 Egg Pasteurizer Device Use as directed. Active Dexcom G7 [...] mouth 2 times a day. Active Calcitonin ([place]) 200 UNIT/ACT Nasal Solution Administer 1 [place] into one nostril in the morning. alternate [...] bedtime. 40 Capsule 04/14/20 24 Active Methscopolamine [place] 2.5 MG Oral TabletIndications:I rritable bowel syndrome [...] the skin daily. Replaces tresiba 15 mL 07/07/19 25 Active NovoLOG FlexPen 100 UNIT/ML Subcutaneous Solution Pen-injector (insulin aspart)Indications: Type 2 diabetes mellitus with hemoglobin A1c goal of less than 8.0% (HCC) inject 5 units before breakfast, 2 units with lunch and 2 units with supper + CF of 1:50 over 200 15 mL 07/07/19 25 Active Ozempic (1 MG/DOSE) 4 MG/3ML Subcutaneous Solution Pen-injector (Semaglutide (1 MG/DOSE))Indication s:Type 2 diabetes mellitus with hemoglobin A1c goal of less than 8.0% (HCC) Inject 1 mg under the skin once a week. 3 mL 07/07/19 25 Active Furosemide 20 MG Oral Tablet (Lasix) Take 1 Tablet by mouth in the morning and 1 Tablet before bedtime. 08/26/19 25 Active Amoxicillin-Pot Clavulanate 500-125 MG Oral Tablet (Augmentin) Take 1 Tablet by mouth in the morning and 1 Tablet before bedtime. Do all this for 7 days. 14 Tablet 08/29/19 25 025 Active dexAMETHasone 4 MG Oral Tablet (Decadron) Take 1 Tablet by mouth daily with breakfast. 3 Tablet 08/29/19 25 Active Benzonatate 100 MG Oral Capsule Take 1 Capsule by mouth 3 times a day as needed for Cough. 30 Capsule 08/29/19 25 Active Hospital, Clinic, or Other Facility Administered Medication Ordered Dose Route Frequency Start Date End Date Status albuterol sulfate (PROVENTIL) (2.5 MG/3ML) 0.083% inhalation solution 2.5 mgIndications:Moderate persistent asthma without complication 2.5 mg NEBULIZER Q4H PRN 08/13/2018 Active documented as of this encounter (statuses as of 09/04/2024) Active Problems Patient Care Coordination No te [...] as of this encounter (statuses as of 09/04/2024) Resolved Problems Problem Noted Date Diagnosed Date [...] Overview (06/04/2014): Signed 06/04/2014 Pranav Sanchez MD [facility] [place] Spinal pain 06/04/2014 02/02/2017 Type 2 diabetes [...] as of this encounter (statuses as of 09/04/2024) Immunizations Name Administration Dates Next Due COVID-19 mRNA, LNP-s, No Pre serve, 2-Dose Series ([employer]ame) 09/09/2020,08/19/2020 Covid-19, Mrna, Lnp-s, Pf, B ivalent, 30 Mcg, IM, 12 yrs and above (Meuugame) 03/02/2024 Pneumococcal Conjugate Vacc, 13 Valent (Prevnar) [...] the money to buy more. Never true 12/20/19 24 Within the past 12 months, t he food you bought just didn't last and you didn't have money to get more. Never true 12/20/2023 Childcare Answer Date Recorded Do you feel overwhelmed with taking care of a child, family member or friend? No 12/20/2023 Does your family need help f inding childcare? (Household - for ages 0-17 years) Not on file 12/20/2023 Clothing Answer Date Recorded Have you been unable to get clothing when it was really needed? No 12/20/2023 Is your family able to get c lothes or diapers when needed? (Household - for ages 0-17 years) Not on file 12/20/2023 Personal Safety Answer Date Recorded Do you feel unsafe or have concerns for your saf ety? No 12/20/2023 Do you have concerns for you r family's safety? (Household - for ages 0-17 years) Not on file 12/20/2023 Utilities Answer Date Recorded Do you have trouble paying y our heating, water, or electric bill? No 12/20/2023 Is your family able to pay t he heat, water, or electric bill? (Household - for ages 0-17 years) Not on file 12/20/2023 Does your family have access to good internet? (Household - for ages 0-17 years) Not on file 12/20/2023 Employment Status Answer Date Recorded Are you unemployed or without regular income? No 12/20/2023 Does the household have a [facility] psychiatric center[facility] source of income? (Household - for ages 0-17 years) Not on file 12/20/2023 Social Connections Answer Date Recorded How often do you feel lonely or isolated from those around you? Sometimes 12/20/2023 Financial Resource Strain Answer Date R ecorded Do you have any trouble payi ng for your medications, or do you think you might in the future? Yes 12/20/2023 Does your family have troubl e paying for medicine? (Household - for ages 0-17 years) Not on file 12/20/2023 Transportation Needs Answer Date Record ed Do you have trouble getting a ride to medical visits or work? (Adult - for ages 18 years and over) Not on file 12/20/2023 Does your family have a hard time getting a ride to doctors visits? (Household - for ages 0-17 years) Not on file 12/20/2023 Has lack of transportation k ept you from medical appointments, meetings, work, or from getting things needed for daily living? Check all that apply. No 12/20/2023 Do you (or your family) have trouble finding or paying for a ride (transportation)? (Household - for ages 0-17 years) Not on file 12/20/2023 Housing Stability Answer Date Recorded Do you currently live in a s helter or have no steady place to sleep at night? No 12/20/2023 Do you think you are at risk of becoming homeless? (Adult - for ages 18 years and over) Not on file 12/20/2023 Does your family worry about paying for your home or becoming homeless? (Household - for ages 0-17 years) Not on file 0 12/20/2023 Are you homeless or worried that you might be in the future? No 12/20/2023 Are you (or your family) bayron eless [...] the money to buy more. Never true 12/20/19 24 Within the past 12 months, t he food you bought just didn't last and you didn't have money to get more. Never true 12/20/2023 Do you need food for this week? No 12/20/2023 Comments No Sex and Gender Information Value [...] encounter Miscellaneous Notes * Telephone Encounter - Adi Segal OSA - 09/04/2024 8:41 AM EDT Patient rescheduled with call center * Telephone Encounter - Adi Segal OSA - 09/03/2024 8:46 AM EDT Left message x2 and MyG sent * Telephone Encounter - Esthela Damon OSA - 09/02/2024 11:19 AM EDT Left message * Telephone Encounter - Kellie Corey MED ASSIST - 09/02/2024 11:03 AM EDT Pt did not show for her appointment today 09/02/[address] Stauffer. Please call to reschedule. Thank You documented in this encounter Plan of Treatment Upcoming Encounters Date Type Department Care Team (Late st Contact Info) Description 09/09/2024 11:00 AM EDT [facility] Visit [facility] [address] [facility] [phone] [facility] [address] [facility] [address] 09/21/2024 2:30 PM EDT Office Visit Hematology/Oncology [facility] [address] [place] [phone] Henok Stauffer MD [address] [facility] [place] [address] 09/22/2024 2:00 PM EDT Office Visit Interventional Pain Center [facility] [address] [place] [phone] Toyna Murray PA-C [address] [place] [address] 11/24/2024 2:40 PM EDT Office Visit Nephrology, [facility] [address] [place] [address] Eric Day MD [address] [facility] [place] [address] 03/29/2025 3:45 PM EST Office Visit Ophthalmology, [place] [address] [place] [address] Ernie Rivers DO [address] [place] [address] 04/15/2025 10:00 AM EST Office Visit Family Practice [facility] [address] [place] [address] Chris Asencio DO [address] [place] [address] Scheduled Procedures Name Priority Associated Diagnoses Date/Ti me COLONOSCOPY FLEXIBLE PROXIMA L DIAGNOSTIC Recall Family history of colon cancer Health Maintenance Due Date Last Done Comments Cologuard 1997 Fecal Occult Blood Test 1997 Sigmoidoscopy 1997 Zoster Vaccines (2 of 3) 05/07/2013 03/12/2013 Adult Wellness Visit 10/13/2023 10/12/2022, 01/10/20 21 Depression Monitoring 10/13/2023 10/12/2022 CKD PHOS USE SMARTSET 35592 09/16/202408/26, 06/18/2023, 06/06/2023, Additional history exists GFR 09/23/2024 03/25/2024, 02/25, 01/06/2024, Additional history exists HbA1c 09/23/2024 03/25/2024, 08/26, 04/24/2023, Additional history exists Diabetic Foot Exam 10/02/2024 10/03/2023, 1 07/24/2019, 04/06/2019, Additional history exists Diabetic Eye Exam 03/05/2025 03/05/2024, , 03/05/2024, Additional history exists Mammogram 03/05/2025 03/05/2024, 07/2022, 02/26/2023, Additional history exists CKD HGB USE SMARTSET 82157 03/25/202503/25, 03/25/2024, 03/16/2024, Additional history exists Albumin/Creatinine [...] on File Type Date Recorded 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 No Care Teams Project Inspector Relationship Specialty Start Date End Date Chris Asencio DO [address] [place] [address] PCP - General Family Medicine 01/07/18 documented as of this encounter
--- OUTSIDE RECORDS SUMMARY | 2024-09-21 22:35 | External Medical Summary | Summary of Care ---
Author Name Unknown Organization [facility] Address [address] [place] [address] Phone [phone] Care Team Providers Care [employer] Supervisor Name Role Phone Chris Asencio DO Primary Care Provider Reason for Visit * Reason Onset Date Comments Medication Refill 09/08/2024 Encounter Details Date Type Department Care Team (Late st Contact Info) Description 09/08/2024 Refill Family Practice [facility] [address] [place] [address] Chris Asencio DO [address] [place] [address] Vaginal atrophy; Moderate persistent asthma without complication Allergies Active Allergy Reactions Criticality Noted Date [...] E11.9 400 Strip 5 04/17/20 23 Active WellAppsTouch UltraSoft LancetsIndications: Type 2 diabetes mellitus with stage 3b chronic kidney disease, with long-term current use of insulin (HCC) Use as directed 4 times a day. Use up to four times a day as directed to check blood glucose E 11.9 400 Each 5 04/17/20 23 Active BD Pen Needle Mini U/F 31G X 5 MM (Insulin Pen Needle)Indications: Type 2 diabetes mellitus with diabetic nephropathy, with long-term current use of insulin (HCC) USE DIRECTED WITH NOVOLOG 300 Each 1 3 6:19 PM EST 05/09/20 Active Fluticasone Furoate-Vilanterol 100-25 MCG/ACT Inhalation Aerosol Powder Breath Activated (BREO ellipta)Indications :Moderate persistent asthma without complication INHALE 1 PUFF BY MOUTH EVERY DAY 180 Each 3 4 5:45 PM EDT 05/09/20 23 Active Budesonide 0.5 MG/2ML Inhalation Suspension (Pulmicort)Indicati ons:Acute respiratory disease due to COVID-19 virus INHALE VIA NEBULIZER 1 VIAL IN THE MORNING AND 1 VIAL BEFORE BEDTIME 360 mL 3 4 5:45 PM EDT 05/09/20 23 Active Fluticasone Propionate 50 MCG/ACT Nasal Suspension (Flonase)Indication s:LRTI (lower respiratory tract infection),Moderate persistent asthma with acute exacerbation,Acute URI Administer 2 Sprays into each nostril in the morning and 2 Sprays before bedtime. 48 g 3 4 3:16 PM EDT 05/09/20 23 Active WellAppsToLeonar3Do Verio Flex System w/Device Kit USE 1 DEVICE DIRECTED EVERY EVENING. UP TO 4 TIMES A DAY TO CHECK BLOOD GLUCOSE E11.9 04/17/20 23 Active Dexcom G7 Dispenser Operator Device Use as directed. Active Dexcom G7 Sensor Use as directed. Active Triamcinolone Acetonide 0.1 % External Ointment (Aristocort) Apply topically to affected area 2 times a day 80 g 5 4 12:34 PM EDT 07/11/19 24 Active Ferrous Gluconate 240 (27 Fe) MG Oral Tablet (F[place]) TAKE BY MOUTH 1 TABLET DAILY . 90 Tablet 3 4 2:42 PM EDT 08/01/19 24 Active clonazePAM [...] mouth 2 times a day. Active Calcitonin ([place]) 200 UNIT/ACT Nasal Solution Administer 1 [place] into one nostril in the morning. alternate [...] 40 Capsule 04/14/20 24 Active Methscopolamine [place] 2.5 MG Oral TabletIndications:I [...] hemoglobin A1c goal of less than 8.0% ([facility]) Inject 20 Units under the skin daily. [...] for Cough. 30 Capsule 08/29/19 25 Active Ozempic (1 MG/DOSE) 4 MG/3ML Subcutaneous Solution Pen-injector (Semaglutide (1 MG/DOSE))Indication s:Type 2 diabetes mellitus with hemoglobin A1c goal of less than 8.0% ([facility]) Inject 1 mg under the skin once a week. 3 mL 11 07/07/19 25 025 Discontin ued(Medic ation/Dos e Changed) Nitrofurantoin Monohyd Macro 100 MG Oral Capsule (Macrobid)Indicatio ns:Suspected urinary tract infection Take 1 Capsule by mouth in the morning and 1 Capsule before bedtime. Do all this for 5 days. 10 Capsule 08/01/19 25 025 Discontin ued(Medic ation List Clean Up) Cephalexin 500 MG Oral Capsule (Keflex)Indications :Suspected UTI Take 1 Capsule by mouth in the morning and 1 Capsule at noon and 1 Capsule in the evening and 1 Capsule before bedtime. Do all this for 7 days. 28 Capsule 08/13/19 025 Discontin ued(Medic ation List Clean Up) Amoxicillin-Pot Clavulanate 500-125 MG Oral Tablet (Augmentin) Take 1 Tablet by mouth in the morning and 1 Tablet before bedtime. Do all this for 7 days. 14 Tablet 08/29/19 25 025 Discontin ued(Medic ation List Clean Up) dexAMETHasone 4 MG Oral Tablet (Decadron) Take 1 Tablet by mouth daily with breakfast. 3 Tablet 08/29/19 025 Discontin ued(End of Procedure ) Hospital, Clinic, or Other Facility Administered Medication [...] Dialysis) Medication Regimen o GLP-1 Agonist (ex: Victolaura, Win, Tremayneempic) o Other: toujeo DM Secondary Prevention o [...] Sanchez MD [facility] Pharm[facility] [place] Spinal pain 06/04/2014 02/02/2017 Type 2 diabetes [...] mRNA, LNP-s, No Pre serve, 2-Dose Series ([employer]) 09/09/2020,08/19/2020 Covid-19, Mrna, Lnp-s, Pf, B ivalent, [...] No 12/20/2023 Does the household have a re gular [...] encounter Miscellaneous Notes * Telephone Encounter - Mauri Foreman RP - 09/09/2024 12:05 PM EDT Refused Prescriptions: Disp Refills Ferrous Gluconate 240 (27 Fe) MG Oral Tabl*90 Tab*3 Sig: TAKE BY MOUTH 1 TABLET DAILY .Refused By: MAURI FOREMAN for Refusal: Too soon Premarin 0.625 MG/GM Vaginal Cream ([place]*30 g 5 Refused By: MAURI FOREMAN for Refusal: Too soon Montelukast Sodium 10 MG Oral Tablet (Sing*90 Tab*3 Sig: Take 1 Tablet by mouth in the morning.RefusedBy: MAURI FOREMAN for Refusal: Too soon documented in this encounter Plan of Treatment Upcoming Encounters Date Type Department Care Team (Susy st Contact Info) Description 09/14/2024 3:40 PM EDT [facility] [place] [facility] [address] [place] [phone] Phuc Grider MD [address] [facility] [address] 09/21/2024 2:30 PM EDT Office Visit Hematology/Oncology [facility] [address] [place] [phone] Henok Stauffer MD [address] [place] [address] 09/22/2024 2:00 PM EDT Office Visit Interventional Pain Center [facility] [address] [place] [phone] Tonya Murray PA-C [address] [place] [address] 10/07/2024 2:40 PM EDT [facility] [address] [facility] [phone] [place], [address] [address] 11/24/2024 2:40 PM EDT Office Visit Nephrology, [facility] [address] [place] [address] [address] Erci Day MD [address] [place] [address] 03/29/2025 3:45 PM EST Office Visit Ophthalmology, [place] [address] [place] [address] Ernie Rivers DO [address] [place] [address] 04/15/2025 10:00 AM EST Office Visit [facility] [place] [address] Chris Asencio, DO [address] [place] [address] Scheduled Procedures Name Priority Associated Diagnoses Date/Ti me COLONOSCOPY FLEXIBLE PROXIMA L DIAGNOSTIC Recall Family history of colon cancer Health Maintenance Due Date Last Done Comments Cologuard 1997 Fecal Occult Blood Test 1997 Sigmoidoscopy 1997 Zoster Vaccines (2 of 3) 05/07/2013 03/12/2013 Adult Wellness Visit 10/13/2023 10/12/2022, 01/10/20 21 Depression Monitoring 10/13/2023 10/12/2022 CKD PHOS USE SMARTSET 51322 09/16/202408/26, 06/18/2023, 06/06/2023, Additional history exists GFR 09/23/2024 03/25/2024, 02/25, 01/06/2024, Additional history exists HbA1c 09/23/2024 03/25/2024, 08/26, 04/24/2023, Additional history exists Diabetic Foot Exam 10/02/2024 10/03/2023, 1 07/24/2019, 04/06/2019, Additional history exists Diabetic Eye Exam 03/05/2025 03/05/2024, , 03/05/2024, Additional history exists Mammogram 03/05/2025 03/05/2024, 07/2022, 02/26/2023, Additional history exists CKD HGB USE SMARTSET 92327 03/25/202503/25, 03/25/2024, 03/16/2024, Additional history exists Albumin/Creatinine [...] with stage 3b chronic kidney disease (HCC) Vaginal atrophy Postmenopausal atrophic vaginitis Moderate persistent asthma without complication Unspecified asthma documented in this encounter Advance Directives Documents on File Type Date Recorded 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 No Care Teams [employer] Supervisor Relationship Specialty Start Date End Date Chris Asencio DO [address] [place] [address] PCP - General Family Medicine 01/07/18 documented as of this encounter
--- OUTSIDE RECORDS SUMMARY | 2024-09-21 22:35 | External Medical Summary | Summary of Care ---
Author Name Unknown Organization [facility] Address [address] [place] [address] Phone [phone] Care Team Providers Care Instrumentation And Controls Technician Name Role Phone Chris Asencio Primary Care Provider Reason for Visit * Reason Onset Date Comments [facility]: Screening 09/09/2024 Encounter Details Date Type Department Care Team (Late st Contact Info) Description 09/09/2024 Telephone [facility] [address] [place] [address] Maria Teresa Smith LPN [address] [facility] [place] [address] [facility]: Screening Allergies Active Allergy [...] as of this encounter (statuses as of 09/10/2024) Medications Spacer/Aero-Holding Chambers DEVIIndications:Mod erate persistent asthma [...] day E11.9 400 Strip 5 04/17/20 Active TaktioTouch UltraSoft LancetsIndications: Type 2 diabetes mellitus with [...] 3 09/17/2023 3:16 PM EDT 05/09/20 Active TaktioToMarkkit Verio Flex System w/Device Kit USE 1 DEVICE DIRECTED EVERY EVENING. UP TO 4 TIMES A DAY TO CHECK BLOOD GLUCOSE E11.9 04/17/20 Active Dexcom G7 Bi Data Modeler Device Use as directed. Active Dexcom G7 [...] mouth 2 times a day. Active Calcitonin ([place]) 200 UNIT/ACT Nasal Solution Administer 1 [place] into one nostril in the morning. alternate [...] bedtime. 40 Capsule 04/14/20 24 Active Methscopolamine [place] 2.5 MG Oral TabletIndications:I rritable bowel syndrome [...] hemoglobin A1c goal of less than 8.0% ([facility]) Inject 3 mg under the skin once a week. Replaces ozempic 6 mL 09/10/19 25 Active Hospital, Clinic, or Other Facility Administered Medication Ordered Dose Route Frequency Start Date End Date Status albuterol sulfate (PROVENTIL) (2.5 MG/3ML) 0.083% inhalation solution 2.5 mgIndications:Moderate persistent asthma without complication 2.5 mg NEBULIZER Q4H PRN 08/13/2018 Active documented as of this encounter (statuses as of 09/10/2024) Active Problems Patient Care Coordination No te [...] as of this encounter (statuses as of 09/10/2024) Resolved Problems Problem Noted Date Diagnosed Date [...] Overview (06/04/2014): Signed 06/04/[address] [facility] Pharm[facility] [place] Spinal pain 06/04/2014 02/02/2017 Type 2 diabetes [...] as of this encounter (statuses as of 09/10/2024) Immunizations Name Administration Dates Next Due COVID-19 mRNA, LNP-s, No Pre serve, 2-Dose Series ([employer]) 09/09/2020,08/19/2020 Covid-19, Mrna, Lnp-s, Pf, B ivalent, 30 Mcg, IM, 12 yrs and above ([employer]) 03/02/2024 Pneumococcal Conjugate Vacc, 13 Valent (Prevnar) [...] Miscellaneous Notes * Telephone Encounter - Debbie Goldman RPh - 09/10/2024 6:59 AM EDT Noted by MTMissy. * Telephone Encounter - Maria Teresa Smith LPN - 09/09/2024 3:18 PM EDT MTM referring Sent to [facility] leadership to review Former [facility] not eligible for [facility] per leadership also was referred to Level [...] Referring care team was notified via : [employer] communication In area but not eligible at this time for [facility] documented in this encounter Plan of Treatment Upcoming Encounters Date Type Department Care Team (Late st Contact Info) Description 09/14/2024 3:40 PM EDT [facility] [address] [place] [address] [phone] Phuc Grider MD [address] [facility] [place] [address] 09/21/2024 2:30 PM EDT Office Visit Hematology/Oncology [facility] 200 [facility] [place] [phone] Henok Stauffer MD 200 [facility] [place] [address] 09/22/2024 2:00 PM EDT Office Visit Interventional Pain Center [facility] [address] [place] [phone] Tonya Murray PA-C [address] [place] [address] 10/07/2024 2:40 PM EDT Office Visit Pharmacy, Walter Cummings [address] [place] [phone] [facility] [address] [facility] [address] 11/24/2024 2:40 PM EDT Office Visit Nephrology, Misty Calderon [address] [place], [place] [address] Eric Day MD 200 [facility] [place], [place] [address] 03/29/2025 3:45 PM EST Office Visit Ophthalmology, [place] [address] [place] [address] Ernie Rivers DO [address] [place] [address] 04/15/2025 10:00 AM EST Office Visit Family Practice [facility] 132 [facility] [place] [address] Chris Asencio DO 132 [facility] [place] [address] Scheduled Procedures Name Priority Associated Diagnoses Date/Ti me COLONOSCOPY FLEXIBLE PROXIMA L DIAGNOSTIC Recall Family history of colon cancer Health Maintenance Due Date Last Done Comments Cologuard 1997 Fecal Occult Blood Test 1997 Sigmoidoscopy 1997 Zoster Vaccines (2 of 3) 05/07/2013 03/12/2013 Adult Wellness Visit 10/13/2023 10/12/2022, 01/10/20 21 Depression Monitoring 10/13/2023 10/12/2022 CKD PHOS USE SMARTSET 90710 09/16/202408/26, 06/18/2023, 06/06/2023, Additional history exists GFR 09/23/2024 03/25/2024, 02/25, 01/06/2024, Additional history exists HbA1c 09/23/2024 03/25/2024, 08/26, 04/24/2023, Additional history exists Diabetic Foot Exam 10/02/2024 10/03/2023, 1 07/24/2019, 04/06/2019, Additional history exists Diabetic Eye Exam 03/05/2025 03/05/2024, , 03/05/2024, Additional history exists Mammogram 03/05/2025 03/05/2024, 07/2022, 02/26/2023, Additional history exists CKD HGB USE SMARTSET 12702 03/25/202503/25, 03/25/2024, 03/16/2024, Additional history exists Albumin/Creatinine [...] Documents on File Type Date Recorded 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 No Care Teams Instrumentation And Controls Technician Relationship Specialty Start Date End Date Chris Asencio DO [address] [place] [address] PCP - General Family Medicine 01/07/18 documented as of this encounter
--- OUTSIDE RECORDS SUMMARY | 2024-09-21 22:35 | External Medical Summary | Summary of Care ---
Author Name Unknown Organization [facility] Address [address] [place] [address] Phone [phone] Care Team Providers Care Cost Recovery Technician Name Role Phone Chris Asencio Primary Care Provider Reason for Visit * Reason Onset Date Comments [facility]: Screening 09/09/2024 Encounter Details Date Type Department Care Team (Late st Contact Info) Description 09/09/2024 Telephone [facility] [address] [place] [address] Maria Teresa Smith LPN [address] [facility] [place] [address] [facility]: Screening Allergies Active Allergy [...] day E11.9 400 Strip 5 04/17/20 Active Share Your BrainTouch UltraSoft LancetsIndications: Type 2 diabetes mellitus with [...] 3 09/17/2023 3:16 PM EDT 05/09/20 Active Share Your BrainToUpWind Solutions Verio Flex System w/Device Kit USE 1 DEVICE DIRECTED EVERY EVENING. UP TO 4 TIMES A DAY TO CHECK BLOOD GLUCOSE E11.9 04/17/20 Active Dexcom G7 Edm Operator Device Use as directed. Active Dexcom [...] mouth 2 times a day. Active Calcitonin ([place]) 200 UNIT/ACT Nasal Solution Administer 1 [place] into one nostril in the morning. alternate [...] bedtime. 40 Capsule 04/14/20 24 Active Methscopolamine [place] 2.5 MG Oral TabletIndications:I rritable bowel syndrome [...] hemoglobin A1c goal of less than 8.0% ([facility]) Inject 3 mg under the [...] Overview (06/04/2014): Signed 06/04/2014 Pranav Sanchez MD [facility] Pharmacy [place] Spinal pain 06/04/2014 02/02/2017 Type 2 diabetes [...] mRNA, LNP-s, No Pre serve, 2-Dose Series ([employer]) 09/09/2020,08/19/2020 Covid-19, Mrna, Lnp-s, Pf, B ivalent, 30 Mcg, IM, 12 yrs and above ([employer]) 03/02/2024 Pneumococcal Conjugate Vacc, 13 Valent (Prevnar) [...] 3:18 PM EDT MTM referring Sent to [facility] leadership to review Former [facility] not eligible for [facility] per leadership also [...] Description 09/14/2024 3:40 PM EDT Office Visit [facility] Emiliano Bahena [address] [phone] Phuc Grider MD 226 [facility] [place] [address] 09/21/2024 2:30 PM EDT Office Visit Hematology/Oncology [facility] 200 [facility] [place] [phone] Henok Stauffer MD 200 [facility] [place] [address] 09/22/2024 2:00 PM EDT Office Visit Interventional [facility] Center [facility] [address] [place] [phone] Tonya Murray PA-C [address] [place] [address] 10/07/2024 2:40 PM EDT [facility] [address] [place] [address] [phone] Walter [address] [address] 11/24/2024 2:40 PM EDT Office Visit Nephrology, Misty Calderon [address] [place] [address] Eric Day MD 200 [facility] [place] [address] 03/29/2025 3:45 PM EST Office Visit Ophthalmology, [place] [facility] [place] [address] Ernie Rivers DO [address] [facility] [place] [address] 04/15/2025 10:00 AM EST Office Visit Family Practice [facility] [address] [place] [address] Chris Asencio DO [facility] [place] [address] Scheduled Procedures Name Priority Associated Diagnoses Date/Ti me COLONOSCOPY FLEXIBLE PROXIMA L DIAGNOSTIC Recall Family history of colon cancer Health Maintenance Due Date Last Done Comments Cologuard 1997 Fecal Occult Blood Test 1997 Sigmoidoscopy 1997 Zoster Vaccines (2 of 3) 05/07/2013 03/12/2013 Adult Wellness Visit 10/13/2023 10/12/2022, 01/10/20 21 Depression Monitoring 10/13/2023 10/12/2022 CKD PHOS USE SMARTSET 74955 09/16/202408/26, 06/18/2023, 06/06/2023, Additional history exists GFR 09/23/2024 03/25/2024, 02/25, 01/06/2024, Additional history exists HbA1c 09/23/2024 03/25/2024, 08/26, 04/24/2023, Additional history exists Diabetic Foot Exam 10/02/2024 10/03/2023, 1 07/24/2019, 04/06/2019, Additional history exists Diabetic Eye Exam 03/05/2025 03/05/2024, , 03/05/2024, Additional history exists Mammogram 03/05/2025 03/05/2024, 07/2022, 02/26/2023, Additional history exists CKD HGB USE SMARTSET 88249 03/25/202503/25, 03/25/2024, 03/16/2024, Additional history exists Albumin/Creatinine [...] Documents on File Type Date Recorded Patient Informaticist Expl bhargav POLST 10/20/2021 [place] OR [facility] FOR LIFE-SUSTAINING TREATMENT * Full Code [...] Power of Attor buddy? No Care Teams Cost Recovery Technician Relationship Specialty Start Date End Date Chris Asencio DO [address] [place] [address] PCP - General Family Medicine 01/07/18 documented as of this encounter
--- OUTSIDE RECORDS SUMMARY | 2024-09-21 22:35 | External Medical Summary | Summary of Care ---
Author Name Unknown Organization [facility] Address [address] [place] [address] Phone [phone] Care Team Providers Care Casting And Pasting Supervisor Name Role Phone Chris Asencio Primary Care Provider Encounter Details Date Type Department Care Team (Late st Contact Info) Description 09/09/2024 Referral Triage Care Coordination and Integration [address], [place] [phone] Jessica Schroeder, KATERIN [address], [place] [phone] Allergies Active Allergy Reactions Criticality Noted Date [...] E11.9 400 Strip 5 04/17/20 23 Active OneTouch UltraSoft LancetsIndications: Type 2 diabetes [...] 3 09/17/2023 3:16 PM EDT 05/09/20 Active Verax Biomedical Flex System w/Device Kit USE 1 DEVICE DIRECTED EVERY EVENING. UP TO 4 TIMES A DAY TO CHECK BLOOD GLUCOSE E11.9 04/17/20 23 Active Dexcom G7 Copy Writer Device Use as directed. Active Dexcom G7 Sensor Use as directed. Active Triamcinolone Acetonide 0.1 % External Ointment (Aristocort) Apply topically to affected area 2 times a day 80 g 5 10/18/2023 12:34 PM EDT 07/11/19 24 Active Ferrous [...] mouth 2 times a day. Active Calcitonin ([place]) 200 UNIT/ACT Nasal Solution Administer 1 [place] into one nostril in the morning. alternate [...] bedtime. 40 Capsule 04/14/20 24 Active Methscopolamine [place] 2.5 MG Oral TabletIndications:I rritable bowel syndrome [...] over 200 15 mL 07/07/19 25 Active Furosemide 20 MG [...] Agonist (ex: Victoza, Trulicity, Ozempic) o Other: toujetara DM Secondary Prevention o CLARITA Inhibitor / [...] MD [facility] Pharmacy [place] Spinal pain 06/04/2014 02/02/2017 Type [...] mRNA, LNP-s, No Pre serve, 2-Dose Series ([employer]) 09/09/2020,08/19/2020 Covid-19, Mrna, Lnp-s, Pf, B ivalent, 30 Mcg, IM, 12 yrs and above ([employer]) 03/02/2024 Pneumococcal Conjugate Vacc, 13 Valent (Prevnar) [...] 09/14/2024 3:40 PM EDT [facility] [address] [place] [address] [phone] SeptemberPhuc MD [address] [place] [address] 09/21/2024 2:30 PM EDT Office Visit Hematology/Oncology Misty Calderon [facility] [address] [place] [phone] Henok Stauffer MD 200 [facility] [place] [address] 09/22/2024 2:00 PM EDT Office Visit Interventional Pain Center [facility] [address] [place] [phone] Tonya Murray PA-C [address] [place] [address] 10/07/2024 2:40 PM EDT Office Visit Pharmacy, [facility] [phone] [place] [address] 11/24/2024 2:40 PM EDT Office Visit Nephrology, Misty Calderon [address] [place] [address] Eric Day MD 200 [facility] [place] [address] 03/29/2025 3:45 PM EST Office Visit Ophthalmology, [place] [address] [place] [address] Ernie Rivers DO [address] [facility] [place] [address] 04/15/2025 10:00 AM EST Office Visit Family Practice [facility] [address] [place] [address] Chris Asencio DO [address] [place] [address] Scheduled Procedures Name Priority Associated Diagnoses Date/Ti me COLONOSCOPY FLEXIBLE PROXIMA L DIAGNOSTIC Recall Family history of colon cancer Health Maintenance Due Date Last Done Comments Cologuard 1997 Fecal Occult Blood Test 1997 Sigmoidoscopy 1997 Zoster Vaccines (2 of 3) 05/07/2013 03/12/2013 Adult Wellness Visit 10/13/2023 10/12/2022, 01/10/20 Depression Monitoring 10/13/2023 10/12/2022 CKD PHOS USE SMARTSET 30077 09/16/202408/26, 06/18/2023, 06/06/2023, Additional history exists GFR 09/23/2024 03/25/2024, 02/25, 01/06/2024, Additional history exists HbA1c 09/23/2024 03/25/2024, 08/26, 04/24/2023, Additional history exists Diabetic Foot Exam 10/02/2024 10/03/2023, 1 07/24/2019, 04/06/2019, Additional history exists Diabetic Eye Exam 03/05/2025 03/05/2024, , 03/05/2024, Additional history exists Mammogram 03/05/2025 03/05/2024, 07/2022, 02/26/2023, Additional history exists CKD HGB USE SMARTSET 11429 03/25/202503/25, 03/25/2024, 03/16/2024, Additional history exists Albumin/Creatinine [...] Documents on File Type Date Recorded Patient [place] Setter Expl anation POLST 10/20/2021 [place] OR [facility] FOR LIFE-SUSTAINING TREATMENT * Full Code (Latest [...] Power of Attor buddy? No Care Teams Casting And Pasting Supervisor Relationship Specialty Start Date End Date Chris Asencio DO [address] [place] [address] PCP - General Family Medicine 01/07/18 documented as of this encounter
--- OUTSIDE RECORDS SUMMARY | 2024-09-21 22:35 | External Medical Summary | Summary of Care ---
Author Name Unknown Organization [facility] Address [address] [place] [address] Phone [phone] Care Team Providers Care Interior Design Professor Name Role Phone Asencio Chris Fabiananay Primary Care Provider Reason for Referral * Social Care (Within 10 days (routine)) - Authorized Specialty Diagnoses / Procedures Referred By Kristin mayer Referred To Contact Review Manager Diagnoses Type 2 diabetes mellitus with hemoglobin A1c goal of less than 8.0% ([facility]) Debbie Goldman RPh [address] [place] [address] Phone: tel: fax: Referral ID Status Reason Start Date Expiration Date Visits Requested Visits Authorized [id number] Authorized Specialty Services Required 09/09/2024 999 [id number] Question Answer Referral Priority Within 10 days (routine) Where should this appointment be scheduled? [facility] Role Oiling Machine Operator Oiling Machine Operator Referral Reason High Utilizer/Patient Comments Is patient being transitioned from [facility] to Complex Case Management? No; I am placing a [facility] referral as well * Social Care (Within 10 days (routine)) - Authorized Specialty Diagnoses / Procedures Referred By Kristin mayer Referred To Contact HOME CARE / [facility] Diagnoses Type 2 diabetes mellitus with hemoglobin A1c goal of less than 8.0% ([facility]) Debbie Goldman RPh [address] [place] [address] Phone: tel: fax: Referral ID Status Reason Start Date Expiration Date Visits Requested Visits Authorized [id number] Authorized Specialty Services Required 09/09/2024 999 999 Question Answer Referral Priority Within 10 days (routine) Where should this appointment be scheduled? [facility] Does patient have multiple co-morbid conditions? Yes Does patient have P insurance? Yes Comments Is referral coming from Care Coordination and Integration? No Previously was with [facility], I think she might benefit from re- enrollment if possible Reason for Visit * Reason Comments Dosage Adjustment In Person (Anticoag Cl inic) Diabetes Follow-Up Encounter Details Date Type Department Care Team (Late st Contact Info) Description 09/09/2024 1:40 PM EDT Office Visit Pharmacy, [address] [place] [phone] [facility] [address] [place] [facility] [place] [address] Type 2 diabetes mellitus with hemoglobin A1c goal of less than 8.0% ([facility])* Allergies Active Allergy Reactions Criticality Noted Date [...] Each 1 3 6:19 PM EST 05/09/20 23 Active Fluticasone [...] g 3 4 3:16 PM EDT 05/09/20 Active [employer] Verio Flex System w/Device Kit USE 1 DEVICE DIRECTED EVERY EVENING. UP TO 4 TIMES A DAY TO CHECK BLOOD GLUCOSE E11.9 04/17/20 23 Active Dexcom G7 Carton Maker Device Use as directed. Active Dexcom G7 [...] mouth 2 times a day. Active Calcitonin ([place]) 200 UNIT/ACT Nasal Solution Administer 1 [place] into one nostril in the morning. alternate [...] bedtime. 40 Capsule 04/14/20 24 Active Methscopolamine [place] 2.5 MG Oral TabletIndications:I rritable bowel syndrome [...] THE SKIN TWICE DAILY DIRECTED 300 g 06/02/19 25 Active Metoprolol Succinate ER 25 [...] Replaces ozempic 6 mL 09/10/19 25 Active Ozempic (1 MG/DOSE) 4 MG/3ML Subcutaneous Solution Pen-injector (Semaglutide (1 MG/DOSE))Indication s:Type 2 diabetes mellitus with hemoglobin A1c goal of less than 8.0% ([facility]) Inject 1 mg under the skin once [...] this for 7 days. 28 Capsule 08/13/19 25 025 Discontin ued(Medic ation List Clean Up) Amoxicillin-Pot Clavulanate 500-125 MG Oral Tablet (Augmentin) Take 1 Tablet by mouth in the morning and 1 Tablet before bedtime. Do all this for 7 days. 14 Tablet 08/29/19 25 Discontin ued(Medic ation List Clean Up) dexAMETHasone 4 MG Oral Tablet (Decadron) Take 1 Tablet by mouth daily with breakfast. 3 Tablet 08/29/19 25 Discontin ued(End of Procedure ) Hospital, Clinic, [...] Sanchez MD [facility] Pharm[facility] [place] Spinal pain 06/04/2014 02/02/2017 Type 2 diabetes [...] mRNA, LNP-s, No Pre serve, 2-Dose Series ([employer]) 09/09/2020,08/19/2020 Covid-19, Mrna, Lnp-s, Pf, B ivalent, 30 Mcg, IM, 12 yrs and above ([employer]) 03/02/2024 Pneumococcal Conjugate Vacc, 13 Valent (Prevnar) [...] as of this encounter Progress Notes * Debbie Goldman, [facility] - 09/09/2024 1:42 PM EDT Images from the original note were not included. Medication Therapy Disease Management Clinic - Diabetes Management Progress Note Liane Alejandre, identified by name and date of , is a 74 year old female being seen for diabetes management/education. Patient presents for return diabetic visit. DIABETES: Current diabetic medications: Ozempic 1 mg once weekly- Saturdays Tresiba U 200 24 units once daily in AM Novolog 5 units before breakfast; 2 units before lunch; 2 units with supper + CF of 1:50 over 200 10 units 2-3 times a day with or without food Medication Injection Site: Abdomen Lifestyle: Diet: unchanged Glucose Review/SMBG: Readings obtained from patient device BEFORE DEXAMETHASONE USE SINCE DEXAMETHASONE USE: Hypoglycemia: Does your blood sugar go below 70 mg/dL? No Hyperglycemia symptoms present: none Recent Labs Units 03/25/24 1311 09/17/23 1423 04/24/23 1118 HEMOGLOBIN A1C - [facility] % 6.1* 6.4* 6.9* Recent Labs Units 03/25/24 1311 03/16/24 1158 01/06/24 1109 ESTIMATED GLOMERULAR FILTRATION RATE - [facility] mL/min 53* 41* 49* CREATININE - [facility] mg/dL 1.1* 1.4* 1.2* HYPERTENSION: Patient on ACEi/ARB: no, not using BP Readings from Last 3 Encounters: 08/28/24 122/62 04/14/24 126/80 04/06/24 125/74 Blood pressure at goal: yes HYPERLIPIDEMIA: Recent Labs Units 03/25/24 1311 01/24/23 1357 LDL CHOLESTEROL (DIRECT MEASURE) - [facility] mg/dL 65 51 Does patient have clinical ASCVD? No, is patient LDL less than 70mg/dL? Yes ASSESSMENT & PLAN: ICD-10-CM 1. Type 2 diabetes mellitus with hemoglobin A1c goal of less than 8.0% ([facility]) E11.9 Considerations: - metformin - diarrhea and rash - Glyburide - rash - actos - rash - possibility that patient is intolerant to "fillers" of pills vs the active ingredient themselves - avoid ozempic 2 mg due to past hx of tolerability issues with it - Renal function BG Readings - Blood sugars controlled. Reviewed dexcom download sugars were better controlled priorto dexamethasone (as can be expected). No low blood sugars. Elevated above target. Medications - Reviewed current regimen, patient is reportedly taking 10 units of novolog 3x a day with or without food. Advised that she increase her long acting insulin to 28 units daily, and advised novolog should only be in relation to food. She feels as though ozempic has plateau in its effects on her sugars, but higher doses of it have caused diarrhea in the past. Will switch to trulicity, and consider mounjaro in the future if trulicity does not show benefit. Diet, Exercise, Lifestyle - She reports a lot of concerns/issues with her health and mental wellness that is not diabetes related. Reports that she has gotten maybe 6 hours of sleep in the last week.Was tearful at times in visit today. Reports that she has gained 8 lbs in a matter of 10 days- notes it is fluid build up in her ankles, takes furosemide, no hx of heart failure. Reports that she doesn't have much of an appetite. Concerned about her kidney function and her anemia. I placed a referral for [facility] (previously worked with patient) as well as case management. I also ensured that she has a visit with a primary care provider within the next week, as she also reports having issues with her balance and getting dizzy. Patient is agreeable to SMBG dexcom g7 daily. Patient aware to contact clinic if any hypoglycemia before next visit. MEDICATION CHANGES: no change Diabetic Medications: STOP Ozempic 1 mg once weekly- Saturdays START Trulicity 3 mg once weekly INC Lantus 28 units once daily in AM Novolog 10 units three times a day with meals. HEALTH MAINTENANCE INTERVENTIONS: Labs: Up to Date Immunizations: Up to Date Foot Exam: Up to Date Eye Exam: Up to Date Annual Wellness Visit: due FOLLOW UP: Return to clinic in 4 months Visit date not found I spent a total of 30-39 minutes (exact time 34 mins) on the date of service in preparation, delivery, and documentation of the care provided to Liane Alejandre excluding any time spent in the performance of separately billed services. Debbie Goldman, PharmD, BCACP Clinical Pharmacist Medication Therapy Disease Management 09/09/2024, 1:42 PM documented in this encounter Plan of Treatment Upcoming Encounters Date Type Department Care Team (Late st Contact Info) Description 09/14/2024 3:40 PM EDT Office Visit [facility] [address] [facility] [facility] [place] [phone] Phuc Grider MD [address] [facility] [place] [address] 09/21/2024 2:30 PM EDT Office Visit Hematology/Oncology [facility] [address] [place] [phone] Henok Stauffer MD [address] [place] [address] 09/22/2024 2:00 PM EDT Office Visit Interventional Pain Center [facility] [address] [place] [phone] Tonya Murray PA-C [address] [place] [address] 10/07/2024 2:40 PM EDT Office Visit Pharmacy, [facility] [address] [place] [phone] [address] [address] 11/24/2024 2:40 PM EDT Office Visit Nephrology, [place] [address] [facility] [place] [address] Eric Day MD [address] [facility] [place] [address] 03/29/2025 3:45 PM EST Office Visit Ophthalmology, [place] [address] [place] [address] Ernie Rivers DO [address] [place] [address] 04/15/2025 10:00 AM EST Office Visit Family Practice [facility] [address] [place] [address] Chris Asencio DO [address] [place] [address] Scheduled Procedures Name Priority Associated Diagnoses Date/Ti me COLONOSCOPY FLEXIBLE PROXIMA L DIAGNOSTIC Recall Family history of colon cancer Scheduled Referrals Name Type Priority Associated Diagnoses Orde r Schedule [facility] REFERRAL OP Referral Within 10 days (routine) Type 2 diabetes mellitus with hemoglobin A1c goal of less than 8.0% (HCC) Ordered: 09/09/2024 POPULATION HEALTH REFERRAL OP Referral Within 10 days (routine) Type 2 diabetes mellitus with hemoglobin A1c goal of less than 8.0% (HCC) Ordered: 09/09/2024 Health Maintenance Due Date Last Done Comments Cologuard 1997 Fecal Occult Blood Test 1997 Sigmoidoscopy 1997 Zoster Vaccines (2 of 3) 05/07/2013 03/12/2013 Adult Wellness Visit 10/13/2023 10/12/2022, 01/10/20 21 Depression Monitoring 10/13/2023 10/12/2022 CKD PHOS USE SMARTSET 69754 09/16/202408/26, 06/18/2023, 06/06/2023, Additional history exists GFR 09/23/2024 03/25/2024, 02/25, 01/06/2024, Additional history exists HbA1c 09/23/2024 03/25/2024, 08/26, 04/24/2023, Additional history exists Diabetic Foot Exam 10/02/2024 10/03/2023, 1 07/24/2019, 04/06/2019, Additional history exists Diabetic Eye Exam 03/05/2025 03/05/2024, , 03/05/2024, Additional history exists Mammogram 03/05/2025 03/05/2024, 07/2022, 02/26/2023, Additional history exists CKD HGB USE SMARTSET 72171 03/25/202503/25, 03/25/2024, 03/16/2024, Additional history exists Albumin/Creatinine [...] hemoglobin A1c goal of less than 8.0% (HCC)- Primary documented in this encounter Advance Directives Documents on File Type Date Recorded Patient Housekeeping Room Inspector Expl anation POLST 10/20/2021 [place] OR [facility] FOR LIFE-SUSTAINING TREATMENT * [...] Power of Attor buddy? No Care Teams Interior Design Professor Relationship Specialty Start Date End Date Chris Asencio DO [address] [place] [address] PCP - General Family Medicine 01/07/18 documented as of this encounter
--- OUTSIDE RECORDS SUMMARY | 2024-09-21 22:36 | External Medical Summary | Summary of Care ---
Author Name Unknown Organization [facility] Address [address] [place] [address] Phone [phone] Care Team Providers Care Wire Spring Relay Adjuster Name Role Phone Chris Asencio Primary Care Provider Reason for Visit * Reason Onset Date Comments No Show 09/02/2024 Encounter Details Date Type Department Care Team (Late st Contact Info) Description 09/02/2024 Telephone Hematology/Oncology [facility] [address] [place] [phone] Henok Stauffer MD [address] [place] [address] No Show Allergies Active Allergy Reactions Criticality [...] as of this encounter (statuses as of 09/02/2024) Medications Spacer/Aero-Holding Chambers DEVIIndications:Mod erate persistent asthma [...] day E11.9 400 Strip 5 04/17/20 Active [employer] UltraSoft LancetsIndications: Type 2 diabetes mellitus with [...] 3 09/17/2023 3:16 PM EDT 05/09/20 Active [employer] Verio Flex System w/Device Kit USE 1 DEVICE DIRECTED EVERY EVENING. UP TO 4 TIMES A DAY TO CHECK BLOOD GLUCOSE E11.9 04/17/20 23 Active Dexcom G7 Coin Machine Assembler Device Use as directed. Active Dexcom G7 [...] mouth 2 times a day. Active Calcitonin ([place]) 200 UNIT/ACT Nasal Solution Administer 1 [place] into one nostril in the morning. alternate [...] 40 Capsule 04/14/20 24 Active Methscopolamine [place] 2.5 MG Oral TabletIndications:I rritable bowel syndrome [...] as of this encounter (statuses as of 09/02/2024) Active Problems Patient Care Coordination No te [...] as of this encounter (statuses as of 09/02/2024) Resolved Problems Problem Noted Date Diagnosed Date [...] Overview (06/04/2014): Signed 06/04/2014 Pranav Sanchez MD [facility] Pharmacy [place] Spinal pain 06/04/2014 02/02/2017 Type 2 diabetes [...] as of this encounter (statuses as of 09/02/2024) Immunizations Name Administration Dates Next Due COVID-19 mRNA, LNP-s, No Pre serve, 2-Dose Series ([employer]) 09/09/2020,08/19/2020 Covid-19, Mrna, Lnp-s, Pf, B ivalent, 30 Mcg, IM, 12 yrs and above ([employer]) 03/02/2024 Pneumococcal Conjugate Vacc, 13 Valent (Prevnar) [...] No 12/20/2023 Does the household have a [facility] source of income? (Household - for [...] encounter Miscellaneous Notes * Telephone Encounter - Esthela Damon OSA [...] 09/09/2024 11:00 AM EDT [facility] [place] [facility] [address] [place] [phone] [facility] [address] [facility] [address] 09/21/2024 2:30 PM EDT Office Visit Hematology/Oncology [facility] [place] [address] [place] [phone] Henok Stauffer MD [address] [place] [address] 09/22/2024 2:00 PM EDT Office Visit Interventional Pain Center [facility] [address] [place] [phone] Tonya Murray PA-C [address] [place] [address] 11/24/2024 2:40 PM EDT Office Visit Nephrology, [facility] [address] [place] [address] Eric Day MD [address] [place] [address] [address] 03/29/2025 3:45 PM EST Office Visit Ophthalmology, [place] [address] [place] [address] Ernie Rivers DO [address] [place] [address] 04/15/2025 10:00 AM EST Office Visit Family Practice [facility] [address] [place] [address] Chris Asencio DO [address] [place] [address] Scheduled Procedures Name Priority Associated Diagnoses Date/Ti me COLONOSCOPY FLEXIBLE PROXIMA L DIAGNOSTIC Recall Family history of colon cancer Health Maintenance Due Date Last Done Comments Cologuard 1997 Fecal Occult Blood Test 1997 Sigmoidoscopy 1997 Zoster Vaccines (2 of 3) 05/07/2013 03/12/2013 Adult Wellness Visit 10/13/2023 10/12/2022, 01/10/20 21 Depression Monitoring 10/13/2023 10/12/2022 CKD PHOS USE SMARTSET 00191 09/16/202408/26, 06/18/2023, 06/06/2023, Additional history exists GFR 09/23/2024 03/25/2024, 02/25, 01/06/2024, Additional history exists HbA1c 09/23/2024 03/25/2024, 08/26, 04/24/2023, Additional history exists Diabetic Foot Exam 10/02/2024 10/03/2023, 1 07/24/2019, 04/06/2019, Additional history exists Diabetic Eye Exam 03/05/2025 03/05/2024, , 03/05/2024, Additional history exists Mammogram 03/05/2025 03/05/2024, 07/2022, 02/26/2023, Additional history exists CKD HGB USE SMARTSET 90681 03/25/202503/25, 03/25/2024, 03/16/2024, Additional history exists Albumin/Creatinine [...] on File Type Date Recorded Patient Supervisor Sign Shop Expl anation POLST 10/20/[address] [place] [address] [facility] [...] Power of Attor buddy? No Care Teams Wire Spring Relay Adjuster Relationship Specialty Start Date End Date Chris Asencio DO [address] [place] [address] PCP - General Family Medicine 01/07/18 documented as of this encounter
--- OUTSIDE RECORDS SUMMARY | 2024-09-21 22:36 | External Medical Summary | Summary of Care ---
Author Name Unknown Organization [facility] Address [address] [place] [address] Phone [phone] Care Team Providers Care Solar Sales Advisor Name Role Phone Chris Asencio Primary Care Provider Reason for Visit * Reason Onset Date Comments No Show 09/02/2024 Encounter Details Date Type Department Care Team (Late st Contact Info) Description 09/02/2024 Telephone Hematology/Oncology [facility] [address] [place] [phone] Henok Stauffer MD [address] [place] [address] No Show Allergies Active Allergy Reactions Criticality [...] as of this encounter (statuses as of 09/03/2024) Medications Spacer/Aero-Holding Chambers DEVIIndications:Mod erate persistent asthma [...] day E11.9 400 Strip 5 04/17/20 Active [employer] UltraSoft LancetsIndications: Type 2 diabetes mellitus with [...] 3 09/17/2023 3:16 PM EDT 05/09/20 Active [employer] Verio Flex System w/Device Kit USE 1 DEVICE DIRECTED EVERY EVENING. UP TO 4 TIMES A DAY TO CHECK BLOOD GLUCOSE E11.9 04/17/20 23 Active Dexcom G7 Colon And Rectal Surgeon Device Use as directed. Active Dexcom G7 [...] mouth 2 times a day. Active Calcitonin ([place]) 200 UNIT/ACT Nasal Solution Administer 1 [place] into one nostril in the morning. alternate [...] bedtime. 40 Capsule 04/14/20 24 Active Methscopolamine [place] 2.5 MG Oral TabletIndications:I rritable bowel syndrome [...] as of this encounter (statuses as of 09/03/2024) Active Problems Patient Care Coordination No te [...] as of this encounter (statuses as of 09/03/2024) Resolved Problems Problem Noted Date Diagnosed Date [...] Overview (06/04/2014): Signed 06/04/2014 Pranav Sanchez MD [facility] Pharmacy [place] Spinal pain 06/04/2014 02/02/2017 Type 2 [...] as of this encounter (statuses as of 09/03/2024) Immunizations Name Administration Dates Next Due COVID-19 mRNA, LNP-s, No Pre serve, 2-Dose Series ([email or web address]) 09/09/2020,08/19/2020 Covid-19, Mrna, Lnp-s, Pf, B ivalent, 30 Mcg, IM, 12 yrs and above ([email or web address]) 03/02/2024 Pneumococcal Conjugate Vacc, 13 Valent (Prevnar) [...] 12/20/2023 Does the household have a [facility] source of income? (Household - for [...] 09/09/2024 11:00 AM EDT Office Visit Pharmacy, [facility] [address] [facility] [place] [phone] [facility] [address] [facility] [place] [address] 09/21/2024 2:30 PM EDT Office [facility] [place] [address] [place] [phone] Henok Stauffer MD [address] [facility] [place] [address] 09/22/2024 2:00 PM EDT Office Visit Interventional [facility] Center [facility] [address] [place] [phone] Tonya Murray PA-C [address] [place] [address] 11/24/2024 2:40 PM EDT Office Visit Nephrology, [place] [address] [place] [address] Eric Day MD [address] [facility] [place] [address] 03/29/2025 3:45 PM EST Office Visit Ophthalmology, [place] [address] [place] [address] Ernie Rivers DO [address] [place] [address] 04/15/2025 10:00 AM EST Office Visit Family Practice [facility] [address] [facility] [place] [address] Chris Asencio DO [address] [facility] [place] [address] Scheduled Procedures Name Priority Associated Diagnoses Date/Ti me COLONOSCOPY FLEXIBLE PROXIMA L DIAGNOSTIC Recall Family history of colon cancer Health Maintenance Due Date Last Done Comments Cologuard 1997 Fecal Occult Blood Test 1997 Sigmoidoscopy 1997 Zoster Vaccines (2 of 3) 05/07/2013 03/12/2013 Adult Wellness Visit 10/13/2023 10/12/2022, 01/10/20 21 Depression Monitoring 10/13/2023 10/12/2022 CKD PHOS USE SMARTSET 59918 09/16/202408/26, 06/18/2023, 06/06/2023, Additional history exists GFR 09/23/2024 03/25/2024, 02/25, 01/06/2024, Additional history exists HbA1c 09/23/2024 03/25/2024, 08/26, 04/24/2023, Additional history exists Diabetic Foot Exam 10/02/2024 10/03/2023, 1 07/24/2019, 04/06/2019, Additional history exists Diabetic Eye Exam 03/05/2025 03/05/2024, , 03/05/2024, Additional history exists Mammogram 03/05/2025 03/05/2024, 07/2022, 02/26/2023, Additional history exists CKD HGB USE SMARTSET 71671 03/25/202503/25, 03/25/2024, 03/16/2024, Additional history exists Albumin/Creatinine [...] Documents on File Type Date Recorded Patient Track Mechanic Expl anation POLST 10/20/2021 [place] OR [facility] FOR LIFE-SUSTAINING [...] Power of Attor buddy? No Care Teams Solar Sales Advisor Relationship Specialty Start Date End Date Chris Asencio DO [address] [place] [address] PCP - General Family Medicine 01/07/18 documented as of this encounter
--- OUTSIDE RECORDS SUMMARY | 2024-09-21 22:36 | External Medical Summary ---
Author Name Unknown Address Unknown Organization K01:[facility] - [address] [facility] [address] Laboratory Report Ordering Provider Test Date Status REAGAN LOWERY 08/12/2024 10:33:43 Final Observation Date Value Abnormality Reference (Units ) Status Color of Urine by Auto 08/12/2024 10:33:43 Light Yellow Colorless, Light Yellow, Yellow, Dark Yellow Final Clarity, Urine 08/12/2024 10:33:43 Slightly Cloudy Abnormal Clear Final Glucose [Mass/volume] in Urine by Automated test strip 08/12/2024 10:33:43 Negative Negative (mg/dL) Final Bilirubin.total [Presence] in Urine by Automated test strip 08/12/2024 10:33:43 Negative Negative Final Ketones [Mass/volume] in Urine by Automated test strip 08/12/2024 10:33:43 Negative Negative (mg/dL) Final Specific gravity, Urine 08/12/2024 10:33:43 1.009 1.003-1.030 Final Hemoglobin [Presence] in Urine by Automated test strip 08/12/2024 10:33:43 Trace Abnormal Negative Final pH, Urine 08/12/2024 10:33:43 7.0 5.0-7.5 (Units) Final Protein [Mass/volume] in Urine by Automated test strip 08/12/2024 10:33:43 Trace Abnormal Negative (mg/dL) Final Urobilinogen [Mass/volume] in Urine by Automated test strip 08/12/2024 10:33:43 Normal Normal (mg/dL) Final Nitrite [Presence] in Urine by Automated test strip 08/12/2024 10:33:43 Negative Negative Final Leukocyte esterase [Presence] in Urine by Automated test strip 08/12/2024 10:33:43 Large Abnormal Negative Final RBC, Urine 08/12/2024 10:33:43 6-9 Abnormal 0-2 (/HPF) Final WBC, Urine 08/12/2024 10:33:43 50+ Abnormal 0-2 (/HPF) Final Bacteria [#/area] in Urine sediment by Microscopy high power field 08/12/2024 10:33:43 151-200 Abnormal 0-25 (/HPF) Final Hyaline casts, Urine 08/12/2024 10:33:43 5-9 Abnormal None (/LPF) Final Performing Location [facility] - [facility] [address] [facility] [address]
--- OUTSIDE RECORDS SUMMARY | 2024-09-21 22:36 | External Medical Summary | Summary of Care ---
Author Name Unknown Organization [facility] Address [address] [place] [address] Phone [phone] Care Team Providers Care Lcac Operator Name Role Phone Chris Asencio Primary Care Provider Reason for Visit * Reason Comments Acute Pt here for c/o sinu s pressure and drainage. Pt reports that she is losing her voice and glands seem to me enlarged. Encounter Details Date Type Department Care Team (Late st Contact Info) Description 08/28/2024 1:40 PM EDT Office Visit Family [facility] [address] [facility] [address] [place] [address] Sotero Segura MD [address] [place] [address] Acute bacterial sinusitis*; Laryngitis Allergies Active Allergy Reactions Criticality Noted Date [...] as of this encounter (statuses as of 08/28/2024) Medications Spacer/Aero-Holdin socorro Singh DEVIIndications:Mo derate persistent [...] day E11.9 400 Strip 5 023 Active Cocrystal Discoveryuch UltraSoft LancetsIndications :Type 2 diabetes mellitus with [...] 09/17/19 24 3:16 PM EDT 023 Active NutritionixToBiologics Modular Verio Flex System w/Device Kit USE 1 DEVICE DIRECTED EVERY EVENING. UP TO 4 TIMES A DAY TO CHECK BLOOD GLUCOSE E11.9 023 Active Dexcom G7 Office Workforce Planner Device Use as directed. Active Dexcom G7 Sensor Use as directed. Active Triamcinolone Acetonide 0.1 % External Ointment (Aristocort) Apply topically to affected area 2 times a day 80 g 5 10/18/19 24 12:34 PM EDT Active Ferrous Gluconate 240 (27 Fe) MG Oral Tablet (Ferate) TAKE BY MOUTH 1 TABLET DAILY . 90 Tablet 3 08/06/19 24 2:42 PM EDT Active clonazePAM 0.5 MG Oral Tablet (KlonoPIN) Take 1 Tablet by mouth 3 times a day as needed. Active Calcium-Cholecalci ferol-Zinc 650-20-5.5 MG-MCG-MG Oral Tablet Chewable Take 1 Tablet by mouth in the morning and 1 Tablet before bedtime. Active Acetaminophen 500 MG Oral Tablet (Tylenol) Take 2 Tablets by mouth 2 times a day. Active Calcitonin ([place]) 200 UNIT/ACT Nasal Solution Administer 1 [place] into one nostril in the morning. alternate [...] MORNING AND BEFORE BEDTIME 180 Tablet 3 Active Molnupiravir 200 MG Oral CapsuleIndications :Person under investigation for COVID-19,Pneumonia due to suspected gram-negative bacteria Take 4 Capsules by mouth in the morning and 4 Capsules before bedtime. 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 DO THIS 3 EVENINGS PER WEEK 30 g 5 024 Active Pramipexole Dihydrochloride 1 MG Oral Tablet (Mirapex)Indicatio ns:Right knee pain, unspecified chronicity TAKE 1 TABLET BY MOUTH EVERYDAY AT BEDTIME 90 Tablet 1 024 Active Montelukast Sodium 10 MG Oral [...] AT BEDTIME. 135 Tablet 1 025 Active Insulin Glargine Solostar 100 UNIT/ML Subcutaneous Solution Pen-injector (Lantus SoloStar)Indicatio ns:Type 2 diabetes mellitus with hemoglobin A1c goal of less than 8.0% (HCC) Inject 20 Units under the skin daily. Replaces tresiba 15 mL 4 025 Active NovoLOG FlexPen 100 UNIT/ML Subcutaneous Solution Pen-injector (insulin aspart)Indications :Type 2 diabetes mellitus with hemoglobin A1c goal of less than 8.0% (HCC) inject 5 units before breakfast, 2 units with lunch and 2 units with supper + CF of 1:50 over 200 15 mL 4 025 Active Ozempic (1 MG/DOSE) 4 MG/3ML Subcutaneous Solution Pen-injector (Semaglutide (1 MG/DOSE))Indicatio ns:Type 2 diabetes mellitus with hemoglobin A1c goal of less than 8.0% (HCC) Inject 1 mg under the skin once a week. 3 mL 11 Active Furosemide 20 MG Oral Tablet (Lasix) Take 1 Tablet by mouth in the morning and 1 Tablet before bedtime. Active Amoxicillin-Pot Clavulanate 500-125 MG Oral Tablet (Augmentin) Take 1 Tablet by mouth in the morning and 1 Tablet before bedtime. Do all this for 7 days. 14 Tablet 2024 Active dexAMETHasone 4 MG Oral Tablet (Decadron) Take 1 Tablet by mouth daily with breakfast. 3 Tablet Active Benzonatate 100 MG Oral Capsule Take 1 Capsule by mouth 3 times a day as needed for Cough. 30 Capsule Active Furosemide 40 MG Oral Tablet (Lasix)Indications :Localized edema TAKE 1 TABLET BY MOUTH IN THE MORNING AND 1 TABLET BEFORE BEDTIME. FOR FLUID ACCUMULATION OR WEIGHT GAIN. 180 Tablet 11 024 2024 Discontinued Hospital, Clinic, or Other Facility Administered Medication Ordered Dose Route Frequency Start Date End Date Status albuterol sulfate (PROVENTIL) (2.5 MG/3ML) 0.083% inhalation solution 2.5 mgIndications:Moderate persistent asthma without complication 2.5 mg NEBULIZER Q4H PRN 08/13/2018 Active documented as of this encounter (statuses as of 08/28/2024) Active Problems Patient Care Coordination No te [...] as of this encounter (statuses as of 08/28/2024) Resolved Problems Problem Noted Date Diagnosed Date [...] Overview (06/04/2014): Signed 06/04/2014 Pranav Sanchez MD [facility] [place] Spinal pain 06/04/2014 02/02/2017 Type 2 diabetes [...] 1 Neuralgia of chest 8 Asthma exacerbation 05/24/20 17 Asthma dependent on inhaled steroids 02/02/2017 documented as of this encounter (statuses as of 08/28/2024) Immunizations Name Administration Dates Next Due COVID-19 mRNA, LNP-s, No Pre serve, 2-Dose Series (Bionaturis) 09/09/2020,08/19/2020 Covid-19, Mrna, Lnp-s, Pf, B ivalent, 30 Mcg, IM, 12 yrs and above (Bionaturis) 03/02/2024 Pneumococcal Conjugate Vacc, 13 Valent (Prevnar) [...] Sign Reading Time Taken Comments Blood Pressure 122/62 08/28/2024 1:45 PM EDT Pulse 63 08/28/2024 1:45 PM EDT Temperature 36.1 °C (96.9 °F) 08/28/2024 1:45 PM ED T Respiratory Rate 16 08/28/2024 1:45 PM EDT Oxygen Saturation 94% 08/28/2024 1:45 PM EDT Inhaled Oxygen Concentration - - Weight 115.8 kg (255 lb 6.4 oz) 08/28/2024 1:45 PM EDT Height 175.3 cm (5' 9") 08/28/2024 1:45 PM EDT Body Mass Index 37.72 08/28/2024 1:45 PM EDT documented in this encounter Progress Notes * Sotero Segura MD - 08/28/2024 2:07 PM EDT Images from the original note were not included. History of Present Illness Liane Alejandre is a 74 year old female that presents for Acute (Pt here for c/o sinus pressure and drainage. Pt reports that she is losing her voice and glands seem to me enlarged. ) Physical Exam BP 122/62 (BP Site: Right Arm, BP Position: Sitting, BP Cuff Size: Large) | Pulse 63 | Temp 96.9 °F (36.1 °C) (Tympanic) | Resp 16 | Ht 5' 9" (1.753 m) | Wt 255 lb 6.4 oz (115.8 kg) | SpO2 94% | BMI 37.72 kg/m² | BSA 2.37 m² AAOx3 Normal affect NCAT/ PERRL + maxillary sinus tenderness Neck supple w/ shotty and mobile anterior cervical nodes Throat red/erythematous with dry membranes Throat raspy w/ hoarseness RRR Lungs CTABL Ext warm and well perfused No gross neuro deficits Hunched cervical posture Antalgic gait pattern I have reviewed most recent labs CMP and Hemoglobin A1C Assessment and Plan Acute bacterial sinusitis - new. Will treat. Amox-clav 500-125mg BID x 7 days. 3 days PO steroid - start tomorrow. Tessalon perles prn Laryngitis - related to above Wrap-Up Prn/scheduled Time: I spent a total of 10-19 minutes (exact time 15 mins) on the date of service in preparation, delivery, and documentation of the care provided to Liane Alejandre excluding any time spent in the performance of separately billed services. documented in this encounter Plan of Treatment Upcoming Encounters Date Type Department Care Team (Late st Contact Info) Description 09/02/2024 9:00 AM EDT Office Visit Hematology/Oncology [facility] [place] [address] [place] [phone] Henok Stauffer MD [address] [facility] [place] [address] 09/09/2024 11:00 AM EDT [facility] [address] [place] [phone] [facility] [address] [place] [address] 09/22/2024 2:00 PM EDT Office Visit Interventional [facility] [address] [place] [phone] Tonya Murray PA-C [address] [place] [address] 11/24/2024 2:40 PM EDT Office Visit Nephrology, [facility] [address] [place] [address] [address] Eric Day MD [address] [place] [address] 03/29/2025 3:45 PM EST Office Visit Ophthalmology, [place] [address] [place] [address] Ernie Rivers DO [address] [place] [address] 04/15/2025 10:00 AM EST Office Visit Family Practice [facility] [address] [place] [address] Chris Asencio DO [address] [place] [address] Scheduled Procedures Name Priority Associated Diagnoses Date/Ti me COLONOSCOPY FLEXIBLE PROXIMA L DIAGNOSTIC Recall Family history of colon cancer Health Maintenance Due Date Last Done Comments Cologuard 1997 Fecal Occult Blood Test 1997 Sigmoidoscopy 1997 Adult Wellness Visit 10/13/2023 10/12/2022, 01/10/20 21 Depression Monitoring 10/13/2023 10/12/2022 Zoster Vaccines (2 of 3) 08/29/2024 03/12/2013 Pos tponed from 05/07/2013 (Acute Illness) CKD PHOS USE SMARTSET 81208 09/16/202408/26, 06/18/2023, 06/06/2023, Additional history exists GFR 09/23/2024 03/25/2024, 02/25, 01/06/2024, Additional history exists HbA1c 09/23/2024 03/25/2024, 08/26, 04/24/2023, Additional history exists Diabetic Foot Exam 10/02/2024 10/03/2023, 1 07/24/2019, 04/06/2019, Additional history exists Diabetic Eye Exam 03/05/2025 03/05/2024, , 03/05/2024, Additional history exists Mammogram 03/05/2025 03/05/2024, 07/2022, 02/26/2023, Additional history exists CKD HGB USE SMARTSET 58940 03/25/202503/25, 03/25/2024, 03/16/2024, Additional history exists Albumin/Creatinine [...] with stage 3b chronic kidney disease (HCC) Acute bacterial sinusitis- Primary Acute sinusitis, unspecified Laryngitis Acute laryngitis, without mention of obstruction documented in this encounter Advance Directives Documents on File Type Date Recorded Patient Procurement Technician Expl anation POLST 10/20/2021 [place] OR [facility] FOR LIFE-SUSTAINING TREATMENT * Full Code (Latest [...] Power of Attor buddy? No Care Teams Lcac Operator Relationship Specialty Start Date End Date Chris Asencio, DO [address] [place] [address] PCP - General Family Medicine 01/07/18 documented as of this encounter
--- OUTSIDE RECORDS SUMMARY | 2024-09-21 22:36 | External Medical Summary | Summary of Care ---
Author Name Unknown Organization [facility] Address [address] [place] [address] Phone [phone] Care Team Providers Care Plate Mounter Name Role Phone Chris Asencio Primary Care Provider Reason for Visit * Reason Onset Date Comments No Show 09/02/2024 Encounter Details Date Type Department Care Team (Late st Contact Info) Description 09/02/2024 Telephone Hematology/Oncology [facility] [address] [place] [phone] Henok Stauffer MD [address] [place] [address] No Show Allergies Active Allergy Reactions Criticality [...] day E11.9 400 Strip 5 04/17/20 Active [employer]ToTr[employer] UltraSoft LancetsIndications: Type 2 diabetes mellitus with [...] 3 09/17/2023 3:16 PM EDT 05/09/20 Active daysoft Verio Flex System w/Device Kit USE 1 DEVICE DIRECTED EVERY EVENING. UP TO 4 TIMES A DAY TO CHECK BLOOD GLUCOSE E11.9 04/17/20 23 Active Dexcom G7 Attendant Arcade Device Use as directed. Active Dexcom G7 [...] mouth 2 times a day. Active Calcitonin ([place]) 200 UNIT/ACT Nasal Solution Administer 1 [place] into one nostril in the morning. alternate [...] bedtime. 40 Capsule 04/14/20 24 Active Methscopolamine [place] 2.5 MG Oral TabletIndications:I rritable bowel syndrome [...] MD [facility] Pharm[facility] [place] Spinal pain 06/04/2014 02/02/2017 Type 2 diabetes [...] mRNA, LNP-s, No Pre serve, 2-Dose Series ([employer]) 09/09/2020,08/19/2020 Covid-19, Mrna, Lnp-s, Pf, B ivalent, 30 Mcg, IM, 12 yrs and above ([employer]) 03/02/2024 Pneumococcal Conjugate Vacc, 13 Valent (Prevnar) [...] No 12/20/2023 Does the household have a [facility] source of income? (Household - for ages [...] 09/09/2024 11:00 AM EDT [facility] [place] [facility] [address] [facility] [place] [phone] [facility] [address] [facility] [address] 09/21/2024 2:30 PM EDT Office Visit Hematology/Oncology [facility] [place] [address] [place] [phone] Henok Stauffer MD [address] [place] [address] 09/22/2024 2:00 PM EDT Office Visit Interventional Pain Center [facility] [address] [place] [phone] Tonya Murray PA-C [address] [place] [address] 11/24/2024 2:40 PM EDT Office Visit Nephrology, [facility] [address] [place] [address] Eric Day MD [address] [place] [address] 03/29/2025 3:45 PM EST Office Visit Ophthalmology, [place] [address] [place] [address] Ernie Rivers DO [address] [place] [address] 04/15/2025 10:00 AM EST Office Visit Family Practice [facility] [address] [place] [address] Chris Asencio DO [address] [place] [address] Scheduled Procedures Name Priority Associated Diagnoses Date/Ti me COLONOSCOPY FLEXIBLE PROXIMA L DIAGNOSTIC Recall Family history of colon cancer Health Maintenance Due Date Last Done Comments Cologuard 1997 Fecal Occult Blood Test 1997 Sigmoidoscopy 1997 Zoster Vaccines (2 of 3) 05/07/2013 03/12/2013 Adult Wellness Visit 10/13/2023 10/12/2022, 01/10/20 21 Depression Monitoring 10/13/2023 10/12/2022 CKD PHOS USE SMARTSET 53479 09/16/202408/26, 06/18/2023, 06/06/2023, Additional history exists GFR 09/23/2024 03/25/2024, 02/25, 01/06/2024, Additional history exists HbA1c 09/23/2024 03/25/2024, 08/26, 04/24/2023, Additional history exists Diabetic Foot Exam 10/02/2024 10/03/2023, 1 07/24/2019, 04/06/2019, Additional history exists Diabetic Eye Exam 03/05/2025 03/05/2024, , 03/05/2024, Additional history exists Mammogram 03/05/2025 03/05/2024, 07/2022, 02/26/2023, Additional history exists CKD HGB USE SMARTSET 24787 03/25/202503/25, 03/25/2024, 03/16/2024, Additional history exists Albumin/Creatinine [...] on File Type Date Recorded Patient Cylinder Inspector Expl anation POLST 10/20/2021 [place] OR [facility] FOR LIFE-SUSTAINING TREATMENT * Full [...] Power of Attor buddy? No Care Teams Plate Mounter Relationship Specialty Start Date End Date Chris Asencio DO [address] [place] [address] PCP - General Family Medicine 01/07/18 documented as of this encounter
--- OUTSIDE RECORDS SUMMARY | 2024-09-21 22:36 | External Medical Summary | Summary of Care ---
Author Name Unknown Organization [facility] Address [address] [place] [address] Phone [phone] Care Team Providers Care Parts Designer Name Role Phone Chris Asencio DO Primary Care Provider Reason for Visit * Reason Onset Date Comments Medication Refill 08/03/2024 Encounter Details Date Type Department Care Team (Late st Contact Info) Description 08/03/2024 Telephone Family Practice [facility] [address] [place] [address] Chris Asencio DO [address] [place] [address] Medication Refill Allergies Active Allergy Reactions Criticality Noted Date [...] as of this encounter (statuses as of 08/04/2024) Medications Spacer/Aero-Holding Chambers DEVIIndications:Mod erate persistent asthma [...] E11.9 400 Strip 5 04/17/20 23 Active WidgetboxToAltruja UltraSoft LancetsIndications: Type 2 diabetes mellitus with [...] 4 3:16 PM EDT 05/09/20 23 Active Co.Import Verio Flex System w/Device Kit USE 1 DEVICE DIRECTED EVERY EVENING. UP TO 4 TIMES A DAY TO CHECK BLOOD GLUCOSE E11.9 04/17/20 23 Active Dexcom G7 Compensation And Benefits Advisor Device Use as directed. Act vlad Dexcom G7 Sensor Use as directed. Active [...] mouth 2 times a day. Active Calcitonin ([place]) 200 UNIT/ACT Nasal Solution Administer 1 [place] into one nostril in the morning. alternate [...] BEDTIME 180 Tablet 3 02/16/20 24 Active Furosemide 40 MG Oral Tablet (Lasix)Indications: Localized edema TAKE 1 TABLET BY MOUTH IN THE MORNING AND 1 TABLET BEFORE BEDTIME. FOR FLUID ACCUMULATION OR WEIGHT GAIN. 180 Tablet 11 02/25/20 24 Active Molnupiravir 200 MG Oral CapsuleIndications: Person under investigation for COVID-19,Pneumonia due to suspected gram-negative bacteria Take 4 Capsules by mouth in the morning and 4 Capsules before bedtime. 40 Capsule 04/14/20 24 Active Methscopolamine [place] 2.5 MG Oral TabletIndications:I rritable bowel syndrome [...] 8.0% ([facility]) Inject 20 Units under the skin daily. Replaces tresiba 15 mL 4 07/07/19 25 Active NovoLOG FlexPen 100 UNIT/ML Subcutaneous Solution Pen-injector (insulin aspart)Indications: Type 2 diabetes mellitus with hemoglobin A1c goal of less than 8.0% ([facility]) inject 5 units before breakfast, 2 units with lunch and 2 units with supper + CF of 1:50 over 200 15 mL 4 07/07/19 25 Active Ozempic (1 MG/DOSE) 4 MG/3ML Subcutaneous Solution Pen-injector (Semaglutide (1 MG/DOSE))Indication s:Type 2 diabetes mellitus with hemoglobin A1c goal of less than 8.0% (HCC) Inject 1 mg under the skin once a week. 3 mL 11 07/07/19 25 Active Nitrofurantoin Monohyd Macro 100 MG Oral Capsule (Macrobid)Indicatio ns:Suspected urinary tract infection Take 1 Capsule by mouth in the morning and 1 Capsule before bedtime. Do all this for 5 days. 10 Capsule 08/01/19 25 025 Active Hospital, Clinic, or Other Facility Administered Medication Ordered Dose Route Frequency Start Date End Date Status albuterol sulfate (PROVENTIL) (2.5 MG/3ML) 0.083% inhalation solution 2.5 mgIndications:Moderate persistent asthma without complication 2.5 mg NEBULIZER Q4H PRN 08/13/2018 Active documented as of this encounter (statuses as of 08/04/2024) Active Problems Patient Care Coordination No te [...] as of this encounter (statuses as of 08/04/2024) Resolved Problems Problem Noted Date Diagnosed Date [...] Overview (06/04/2014): Signed 06/04/2014 Pranav Sanchez MD [facility] Pharmacy [place] Spinal pain 06/04/2014 02/02/2017 Type 2 diabetes [...] as of this encounter (statuses as of 08/04/2024) Immunizations Name Administration Dates Next Due COVID-19 mRNA, LNP-s, No Pre serve, 2-Dose Series ([employer]) 09/09/2020,08/19/2020 Covid-19, Mrna, Lnp-s, Pf, B ivalent, 30 Mcg, IM, 12 yrs and above ([employer]Home) 03/02/2024 Pneumococcal Conjugate Vacc, 13 Valent (Prevnar) [...] older, IM (Adacel) 04/12/2006 Varicella Zoster Vaccine (Adult) 03/12/2013 documented [...] No 12/20/2023 Does the household have a [facility] source of income? (Household - [...] encounter Miscellaneous Notes * Telephone Encounter - Dee Dee Sevilla OSA - 08/04/2024 3:23 PM EDT Patient stopped at the [place] office for these supplies. Made her aware that she will need to go to [facility] to pick these up as that is where she is seen. She understood. 08/04/2024 * Telephone Encounter - Leena Mann LPN - 08/03/2024 11:40 AM EDT Received pt assistance medication, novofine tips, ozempic and tresiba Placed in med room fridge (needles on counter in med room) Please be sure to get all bags ( 2 total) Called pt, no answer Sent myg, last active august 02 documented in this encounter Plan of Treatment Upcoming Encounters Date Type Department Care Team (Late st Contact Info) Description 08/25/2024 11:30 AM EDT Office Visit Interventional Pain Center [facility] [address] [place] [phone] Tonya Murray PA-C [address] [place] [address] 09/02/2024 9:00 AM EDT Office Visit Hematology/Oncology [facility] [address] [facility] [place] [phone] Henok Stauffer MD [address] [facility] [place] [address] 09/09/2024 11:00 AM EDT Office Visit Pharmacy, [place] [address] [place] [phone] [facility] [address] [place], [place] [address] [address] 11/24/2024 2:40 PM EDT Office Visit Nephrology, [place] [address] [place], [place] [phone] Eric Day MD [address] [facility] [place] [address] 12/24/2024 10:00 AM EDT Office Visit Cardiology, [facility] [address] [place] [address] Sophy Sands, LG [address] [place] [address] 03/29/2025 3:45 PM EST Office Visit Ophthalmology, [place] [address] [place] [address] Ernie Rivers DO [address] [place] [address] 04/15/2025 10:00 AM EST Office Visit Family Practice [facility] [address] [place] [address] Chris Asencio DO [address] [place] [address] Scheduled Procedures Name Priority Associated Diagnoses Date/Ti me COLONOSCOPY FLEXIBLE PROXIMA L DIAGNOSTIC Recall Family history of colon cancer Health Maintenance Due Date Last Done Comments Cologuard 1997 Fecal Occult Blood Test 1997 Sigmoidoscopy 1997 Zoster Vaccines (2 of 3) 05/07/2013 03/12/2013 Adult Wellness Visit 10/13/2023 10/12/2022, 01/10/20 21 Depression Monitoring 10/13/2023 10/12/2022 COVID-19 Vaccine ( season) 2024 03/02/2024, 09/09/2020, 08/19/2020 CKD PHOS USE SMARTSET 88345 09/16/2024 04/2 07/2023, 06/18/2023, 06/06/2023, Additional history exists GFR 09/23/2024 03/25/2024, 02/25, 01/06/2024, Additional history exists HbA1c 09/23/2024 03/25/2024, 08/26, 04/24/2023, Additional history exists Diabetic Foot Exam 10/02/2024 10/03/2023, 1 07/24/2019, 04/06/2019, Additional history exists Diabetic Eye Exam 03/05/2025 03/05/2024, , 03/05/2024, Additional history exists Mammogram 03/05/2025 03/05/2024, 07/2022, 02/26/2023, Additional history exists CKD HGB USE SMARTSET 56568 03/25/202503/25, 03/25/2024, 03/16/2024, Additional history exists Albumin/Creatinine [...] Discontinued 03/17/2021, 03/17/2021, 12/07/2014, Additional history exists Influenza Vaccine (FLU shot) Completed 03/02/2024, 01/24/2023, [...] Documents on File Type Date Recorded Patient Packing Checker Expl anation POLST 10/20/2021 [place] OR [facility] FOR LIFE-SUSTAINING TREATMENT * Full Code (Latest [...] Power of Attor buddy? No Care Teams Parts Designer Relationship Specialty Start Date End Date Chris Asencio DO [address] [place] [address] PCP - General Family Medicine 01/07/18 documented as of this encounter
--- OUTSIDE RECORDS SUMMARY | 2024-09-21 22:36 | External Medical Summary | Summary of Care ---
Author Name Unknown Organization [facility] Address [address] [place] [address] Phone [phone] Care Team Providers Care Precision Mechanical Instrument Maker Name Role Phone Chris Asencio DO Primary Care Provider Reason for Visit * Reason Comments Outpatient Testing Encounter Details Date Type Department Care Team (Late st Contact Info) Description 08/12/2024 10:30 AM EDT Laboratory Laboratory, [facility] [address] [place] [address] [address], Specimen Drop Off [address] [id number] Suspected UTI Allergies Active Allergy Reactions Criticality Noted Date [...] as of this encounter (statuses as of 08/12/2024) Medications Spacer/Aero-Holding Chambers DEVIIndications:Mod erate persistent asthma [...] E11.9 400 Strip 5 04/17/20 23 Active [employer] Game [employer] UltraSoft LancetsIndications: Type 2 diabetes mellitus with [...] 4 3:16 PM EDT 05/09/20 23 Active Nano Game [employer] Verio Flex System w/Device Kit USE 1 DEVICE DIRECTED EVERY EVENING. UP TO 4 TIMES A DAY TO CHECK BLOOD GLUCOSE E11.9 04/17/20 23 Active Dexcom G7 Mathematical Scientist Device Use as directed. Act vlad Dexcom [...] mouth 2 times a day. Active Calcitonin ([place]) 200 UNIT/ACT Nasal Solution Administer 1 [place] into one nostril in the morning. alternate [...] bedtime. 40 Capsule 04/14/20 24 Active Methscopolamine [place] 2.5 MG Oral TabletIndications:I rritable bowel syndrome [...] less than 8.0% ([facility]) inject 5 units before breakfast, 2 units with lunch and 2 units with supper + CF of 1:50 over 200 15 mL 4 07/07/19 25 Active Ozempic (1 MG/DOSE) 4 MG/3ML Subcutaneous Solution Pen-injector (Semaglutide (1 MG/DOSE))Indication s:Type 2 diabetes mellitus with hemoglobin A1c goal of less than 8.0% ([facility]) Inject 1 mg under the skin once a week. 3 mL 11 07/07/19 25 Active Hospital, Clinic, or Other Facility Administered Medication Ordered Dose Route Frequency Start Date End Date Status albuterol sulfate (PROVENTIL) (2.5 MG/3ML) 0.083% inhalation solution 2.5 mgIndications:Moderate persistent asthma without complication 2.5 mg NEBULIZER Q4H PRN 08/13/2018 Active documented as of this encounter (statuses as of 08/12/2024) Active Problems Patient Care Coordination No te [...] as of this encounter (statuses as of 08/12/2024) Resolved Problems Problem Noted Date Diagnosed Date [...] Overview (06/04/2014): Signed 06/04/2014 Pranav Sanchez MD [facility] Pharmacy [place] Spinal pain 06/04/2014 02/02/2017 Type 2 diabetes [...] as of this encounter (statuses as of 08/12/2024) Immunizations Name Administration Dates Next Due COVID-19 mRNA, LNP-s, No Pre serve, 2-Dose Series ([facility]) 09/09/2020,08/19/2020 Covid-19, Mrna, Lnp-s, Pf, B ivalent, 30 Mcg, IM, 12 yrs and above ([facility]) 03/02/2024 Pneumococcal Conjugate Vacc, 13 Valent (Prevnar) [...] 12/20/2023 Does the household have a re lar source of income? (Household - for ages [...] AM EDT Office Visit Interventional Pain Center [facility] [address] [place] [phone] Tonya Murray PA-C [address] [place] [address] 09/02/2024 9:00 AM EDT Office Visit Hematology/Oncology [facility] [address] [place] [phone] Henok Stauffer MD [address] [place] [address] 09/09/2024 11:00 AM EDT Office Visit Pharmacy, [facility] [address] [place] [phone] [facility] [address] [place] [address] 11/24/2024 2:40 PM EDT Office Visit Nephrology, [facility] [address] [place] [address] Eric Day MD [address] [place] [address] 12/24/2024 10:00 AM EDT Office Visit Cardiology, [facility] [address] [facility] [place] [address] Sophy Sands PA-C [address] [place] [address] 03/29/2025 3:45 PM EST Office Visit Ophthalmology, [place] [address] [place] [address] Ernie Rivers DO [address] [place] [address] 04/15/2025 10:00 AM EST Office Visit Family Practice [facility] [place] [address] Chris Asencio DO [address] [place] [address] Pending Results Name Type Priority Associated Diagnoses Date /Time URINALYSIS WITH MICROSCOPIC EXAM Lab Routine Suspected UTI 08/12/2024 10:33 AM EDT CULTURE, URINE, QUANTITATIVE Lab Routine Suspected UTI 08/12/2024 10:33 AM EDT Scheduled Procedures Name Priority Associated [...] 03/02/2024, 09/09/2020, 08/19/2020 CKD PHOS USE SMARTSET 66637 09/16/202408/26, 06/18/2023, 06/06/2023, Additional history exists GFR 09/23/2024 03/25/2024, 02/25, 01/06/2024, Additional history exists HbA1c 09/23/2024 03/25/2024, 08/26, 04/24/2023, Additional history exists Diabetic Foot Exam 10/02/2024 10/03/2023, 1 07/24/2019, 04/06/2019, Additional history exists Diabetic Eye Exam 03/05/2025 03/05/2024, , 03/05/2024, Additional history exists Mammogram 03/05/2025 03/05/2024, 07/2022, 02/26/2023, Additional history exists CKD HGB USE SMARTSET 11111 03/25/202503/25, 03/25/2024, 03/16/2024, Additional history exists Albumin/Creatinine [...] with stage 3b chronic kidney disease (HCC) Suspected UTI documented in this encounter Advance Directives Documents on File Type Date Recorded Patient Tub Tender Expl anation POLST 10/20/2021 [place] OR [facility] [...] Power of Attor buddy? No Care Teams Precision Mechanical Instrument Maker Relationship Specialty Start Date End Date Chris Asencio DO [address] [place] [address] PCP - General Family Medicine 01/07/18 documented as of this encounter
--- OUTSIDE RECORDS SUMMARY | 2024-09-21 22:36 | External Medical Summary ---
Author Name Unknown Address Unknown Organization [id number]:[facility] - [address] [place] [id number] Laboratory Report Ordering Provider Test Date Status REAGAN LOWERY 08/12/2024 10:33:43 Final Observation Date Value Abnormality Reference (Units) Status Bacteria identified in Specimen by Culture 08/12/2024 10:33:43 No significant growth Final Test: Culture, Urine, Quanti tative
Specimen Source: Urine, Clean Catch
Specimen Type: Urine
Specimen Date: 08/12/2024 1033
Result Date: 08/13/2024 1045
Result Status: Final result
Resulting Lab: [facility]
[address]
Aisha [facility]22

CULTURE

No significant growth

null Performing Location [facility] - [address] [facility] [address]
--- OUTSIDE RECORDS SUMMARY | 2024-09-21 22:37 | External Medical Summary | Summary of Care ---
Author Name Unknown Organization [facility] Address [address] [place] [address] Phone [phone] Care Team Providers Care Airplane Electrician Name Role Phone Chris Asencio Primary Care Provider Encounter Details Date Type Department Care Team (Late st Contact Info) Description 07/20/2024 Orders Only Outcomes Research Department [address], [place] [phone] Chioma Ware CHRA [facility] Research Other*[id number] Allergies Active Allergy Reactions Criticality Noted Date [...] as of this encounter (statuses as of 07/20/2024) Medications Spacer/Aero-Holding Chambers DEVIIndications:Mod erate persistent asthma [...] 4 3:16 PM EDT 05/09/20 23 Active [employer] Verio Flex System w/Device Kit USE 1 DEVICE DIRECTED EVERY EVENING. UP TO 4 TIMES A DAY TO CHECK BLOOD GLUCOSE E11.9 04/17/20 23 Active Dexcom G7 Data Entry Operator Device Use as directed. Act vlad Dexcom [...] mouth 2 times a day. Active Calcitonin ([place]) 200 UNIT/ACT Nasal Solution Administer 1 [place] into one nostril in the morning. alternate [...] bedtime. 40 Capsule 04/14/20 24 Active Methscopolamine [place] 2.5 MG Oral TabletIndications:I rritable bowel syndrome [...] hours as needed for Diarrhea. 30 Tablet 05/28/19 25 Active Diclofenac Sodium 1 % [...] a week. 3 mL 07/07/19 25 Active Hospital, Clinic, or Other Facility Administered Medication Ordered Dose Route Frequency Start Date End Date Status albuterol sulfate (PROVENTIL) (2.5 MG/3ML) 0.083% inhalation solution 2.5 mgIndications:Moderate persistent asthma without complication 2.5 mg NEBULIZER Q4H PRN 08/13/2018 Active documented as of this encounter (statuses as of 07/20/2024) Active Problems Patient Care Coordination No te [...] as of this encounter (statuses as of 07/20/2024) Resolved Problems Problem Noted Date Diagnosed Date [...] Overview (06/04/2014): Signed 06/04/2014 Pranav Sanchez MD [facility] Pharmacy [place] Spinal pain 06/04/2014 02/02/2017 Type 2 diabetes [...] as of this encounter (statuses as of 07/20/2024) Immunizations Name Administration Dates Next Due COVID-19 mRNA, LNP-s, No Pre serve, 2-Dose Series ([facility]) 09/09/2020,08/19/2020 Covid-19, Mrna, Lnp-s, Pf, B ivalent, 30 Mcg, IM, 12 yrs and above ([facility]) 03/02/2024 Pneumococcal Conjugate Vacc, 13 Valent (Prevnar) [...] AM EDT Office Visit Interventional Pain Center [facility] [address] [place] [phone] Tonya Murray PA-C [address] [place] [address] 09/09/2024 11:00 AM EDT Office Visit Pharmacy, [facility] [address] [place] [phone] [place], [facility] [address] [facility] [address] 11/24/2024 2:40 PM EDT [facility] [address] [place] [address] Eric Day MD 200 [facility] [place] [address] 12/24/2024 10:00 AM EDT Office Visit Cardiology, [facility] [place] [address] Sophy Sands PA-C [address] [place] [address] 03/29/2025 3:45 PM EST Office Visit Ophthalmology, [place] [address] [place] [address] Ernie Rivers DO [address] [place] [address] 04/15/2025 10:00 AM EST Office Visit Family Practice [facility] [address] [place] [address] Chris Asencio DO [address] [facility] [place] [address] Scheduled Orders Name Type Priority Associated Diagnoses Orde r Schedule MYCODE SUBSEQUENT ADULT Lab Routine MyCode Research Other*[id number] Every 6 Months for 2 Occurrences starting 07/20/2024 until 08/09/2025 Scheduled Procedures Name Priority Associated Diagnoses Date/Ti [...] 03/02/2024, 09/09/2020, 08/19/2020 CKD PHOS USE SMARTSET 04596 09/16/202408/26, 06/18/2023, 06/06/2023, Additional history exists GFR 09/23/2024 03/25/2024, 02/25, 01/06/2024, Additional history exists HbA1c 09/23/2024 03/25/2024, 08/26, 04/24/2023, Additional history exists Diabetic Foot Exam 10/02/2024 10/03/2023, 1 07/24/2019, 04/06/2019, Additional history exists Diabetic Eye Exam 03/05/2025 03/05/2024, , 03/05/2024, Additional history exists Mammogram 03/05/2025 03/05/2024, 07/2022, 02/26/2023, Additional history exists CKD HGB USE SMARTSET 38695 03/25/202503/25, 03/25/2024, 03/16/2024, Additional history exists Albumin/Creatinine [...] with stage 3b chronic kidney disease (HCC) [employer] Research Other*[id number] documented in this encounter Advance Directives Documents on File Type Date Recorded Patient Installment Agent Expl anation POLST 10/20/2021 [place] OR [facility] FOR LIFE-SUSTAINING TREATMENT * Full Code [...] Power of Attor buddy? No Care Teams Airplane Electrician Relationship Specialty Start Date End Date Chris Asencio DO [address] [place] [address] PCP - General Family Medicine 01/07/18 documented as of this encounter
--- OUTSIDE RECORDS SUMMARY | 2024-09-21 22:37 | External Medical Summary | Summary of Care ---
Author Name Unknown Organization [facility] Address [address] [place] [address] Phone [phone] Care Team Providers Care Spot Billing Clerk Name Role Phone Chris Asencio DO Primary Care Provider Reason for Referral * Evaluate & Treat - Unlimited Visits (Within 10 days (routine)) - Authorized Specialty Diagnoses / Procedures Referred By Kristin mayer Referred To Contact Pain Management / Pain Medicine Diagnoses Mild back pain Chris Asencio DO [address] [place] [address] Phone: tel: fax: Referral ID Status Reason Start Date Expiration Date Visits Requested Visits Authorized [id number] Authorized Specialty Services Required 07/14/2024 999 999 Question Answer Referral Priority Within 10 days (routine) Where should this appointment be scheduled? [facility] Reason for referral? Interventional Pain Management - (Injection) What condition is the patient being referred for? Back Axial What is the preferred location to have this test performed? [facility] Comments Patient Name: Liane Alejandre Date of : 1950 Department Phone Number: MRI or CT (if unable to have a MRI) is recommended if any of the following apply: 1. Patient has neck or back pain with radiation to extremities. A previous MRI will be accepted if symptoms unchanged since prior MRI. 2. Spinal surgery since last MRI. If yes, order a MRI with and without contrast. 3. Hx or ongoing cancer treatment. Patient will need spine x-ray (Ap/Lat) for axial neck or back pain if not done previously. Fax No. [facility] [phone] or contact help desk manager [phone] Fax No. [facility] [phone] or contact help desk manager [phone] [facility] [phone] or contact help desk manager [phone] Reason for Visit * Reason Onset Date Comments Health Maintenance 07/06/2024 Encounter Details Date Type Department Care Team (Late st Contact Info) Description 07/06/2024 Telephone Family Practice [facility] [address] [place] [address] Chris Asencio DO [address] [place] [address] Health Maintenance Allergies Active Allergy Reactions Criticality Noted [...] as of this encounter (statuses as of 07/22/2024) Medications Spacer/Aero-Holdin socorro Singh DEVIIndications:Mo derate persistent [...] Strip 5 04/17/20 23 Active OneTouch UltraSoft LancetsIndications :Type 2 diabetes [...] 23 Active Budesonide 0.5 MG/2ML Inhalation Suspension (Pulmicort)Indicat [...] 4 3:16 PM EDT 05/09/20 23 Active Digital H2O Flex System w/Device Kit USE 1 DEVICE DIRECTED EVERY EVENING. UP TO 4 TIMES A DAY TO CHECK BLOOD GLUCOSE E11.9 04/17/20 23 Active Dexcom G7 Bistro Server Device Use as directed. Active Dexcom G7 [...] a day as needed. 08/07/19 24 Active Calcium-Cholecalci ferol-Zinc 650-20-5.5 MG-MCG-MG Oral Tablet Chewable Take 1 Tablet by mouth in the morning and 1 Tablet before bedtime. Active Acetaminophen 500 MG Oral Tablet (Tylenol) Take 2 Tablets by mouth 2 times a day. Active Calcitonin ([place]) 200 UNIT/ACT Nasal Solution Administer 1 [place] into one nostril in the morning. alternate [...] 24 Active Furosemide 40 MG Oral Tablet (Lasix)Indications :Localized edema TAKE 1 TABLET BY MOUTH IN THE MORNING AND 1 TABLET BEFORE BEDTIME. FOR FLUID ACCUMULATION OR WEIGHT GAIN. 180 Tablet 11 02/25/20 24 Active Molnupiravir 200 MG Oral CapsuleIndications :Person under investigation for COVID-19,Pneumonia due to suspected gram-negative bacteria Take 4 Capsules by mouth in the morning and 4 Capsules before bedtime. 40 Capsule 04/14/20 24 Active Methscopolamine [place] 2.5 MG Oral TabletIndications: Irritable bowel syndrome [...] 24 Active Famotidine 40 MG Oral Tablet (Pepcid)Indication s:Gastroesophageal reflux disease with esophagitis without hemorrhage TAKE 1 TABLET BY MOUTH EVERY DAY IN THE MORNING 90 Tablet 3 05/18/20 24 Active Diphenoxylate-Atro pine 2.5-0.025 MG Oral Tablet [...] BEDTIME. 135 Tablet 1 06/15/19 25 Active Ozempic (1 MG/DOSE) 4 MG/3ML Subcutaneous Solution Pen-injector (Semaglutide (1 MG/DOSE)) Inject 1 mg under the skin once a week. Obtaining from [facility] 025 Discontin ued(Refil l) NovoLOG FlexPen 100 UNIT/ML Subcutaneous Solution Pen-injector (insulin aspart) Inject under the skin three times a day with meals. 5 units before breakfast, 2 units with lunch and 2 units with supper + CF of 1:50 over 120 [when off ozempic] 4 units before breakfast [when taking ozempic] [facility] Discontin ued(Refil l) Tresiba FlexTouch 200 UNIT/ML Subcutaneous Solution Pen-injector (Insulin Degludec) Inject 16 Units under the skin in the morning. Obtaining from [employer] [facility]. 025 Discontin ued(Refil l) Hospital, Clinic, or Other Facility Administered Medication Ordered Dose Route Frequency Start Date End Date Status albuterol sulfate (PROVENTIL) (2.5 MG/3ML) 0.083% inhalation solution 2.5 mgIndications:Moderate persistent asthma without complication 2.5 mg NEBULIZER Q4H PRN 08/13/2018 Active documented as of this encounter (statuses as of 07/22/2024) Active Problems Patient Care Coordination No te [...] as of this encounter (statuses as of 07/22/2024) Resolved Problems Problem Noted Date Diagnosed Date [...] Overview (06/04/2014): Signed 06/04/2014 Pranav Sanchez MD [facility] Pharm[facility] [place] Spinal pain 06/04/2014 02/02/2017 Type 2 diabetes [...] Taxonomy Venous insufficiency 04/27/2002 021 NEURALGIA-NEURITIS NOS 12/18/2001 02/28 /2012 OTHER SPECIFIED COMPLICATION S OF PROCEDURES NOT [...] as of this encounter (statuses as of 07/22/2024) Immunizations Name Administration Dates Next Due COVID-19 mRNA, LNP-s, No Pre serve, 2-Dose Series ([facility]) 09/09/2020,08/19/2020 Covid-19, Mrna, Lnp-s, Pf, B ivalent, 30 Mcg, IM, 12 yrs and above ([facility]) 03/02/2024 Pneumococcal Conjugate Vacc, 13 Valent (Prevnar) [...] encounter Miscellaneous Notes * Telephone Encounter - Catherine Sprague OSA - 07/15/2024 9:48 AM EST Tried calling again it rang multiple times and then went to a busy signal going to try MyG for appointment * Telephone Encounter - Catherine Sprague OSA - 07/14/2024 1:41 PM EST Tried to call 3 times all times busy signal will try at a later time * Addendum Note - Tracie Zacarias LPN - 07/14/2024 1:12 PM ESTAddended by: TRACIE ZACARIAS on: 07/14/2024 01:12 PM Modules accepted: Orders * Telephone Encounter - Tracie Zacarias LPN - 07/14/2024 1:12 PM EST Placed new referral * Telephone Encounter - Catherine Sprague OSA - 07/13/2024 2:54 PM EST I can not re instate the 10/03/23 to get it rescheduled if someone can reinstate or make a new referral I can call to schedule - thank you * Telephone Encounter - Tracie Zacarias LPN - 07/13/2024 2:33 PM EST Pt willing to see other provider in [place] in August. Pt has pain mgmt referral in from 10/03/2023 still AUTH-- please schedule appt for back pain as well. * Addendum Note - Migdalia Gonzalez LPN - 07/08/2024 3:00 PM ESTAddended by: MIGDALIA GONZALEZ on: 07/08/2024 03:00 PM Modules accepted: Orders * Telephone Encounter - Migdalia Gonzalez LPN - 07/08/2024 2:54 PM EST Patient left a vm I tried to call her back. When I call the number it rings and goes to a fast busy. * Telephone Encounter - Migdalia Gonzalez LPN - 07/08/2024 12:21 PM EST Patient left a vm I called patient back. No answer no vm. * Telephone Encounter - Migdalia Gonzalez LPN - 07/06/2024 1:47 PM EST Care Gaps Comprehensive Care Outreach Last Office/Telemedicine Visit: 04/14/2024 (in office), 06/30/2021 (telemedicine) Next Office Visit: Visit date not found Hemoglobin AIC Results: Lab Results Component Value Date/Time HEMOGLOBIN A1C - [facility] 6.1 (H) 03/25/2024 01:11 PM HEMOGLOBIN A1C - [facility] 6.4 (H) 09/17/2023 02:23 PM HEMOGLOBIN A1C - [facility] 6.9 (H) 04/24/2023 11:18 AM HEMOGLOBIN A1C - [facility] 6.7 (H) 05/24/2020 11:20 AM HEMOGLOBIN A1C - [facility] 7.0 (H) 11/13/2019 03:25 PM HEMOGLOBIN A1C - [facility] 7.6 (H) 05/06/2019 11:23 AM BP Readings from Last 1 Encounters: 04/14/24 126/80 Reviewed Health Maintenance below: Health Maintenance Topic Date Due Zoster Vaccines (2 of 3) 05/07/2013 Depression Monitoring 10/13/2023 Adult Wellness Visit 10/13/2023 COVID-19 Vaccine ( season) 2024 CKD PHOS USE SMARTSET 44027 09/16/2024 HbA1c 09/23/2024 GFR 09/23/2024 Diabetic Foot Exam 10/02/2024 Ov Labs August awv Care Gap Outreach Action Taken: Unable to reach and MyChart message sent Rings no vm documented in this encounter Plan of Treatment Upcoming Encounters Date Type Department Care Team (Late st Contact Info) Description 08/25/2024 11:30 AM EDT Office Visit Interventional Pain Center [facility] [address] [place] [phone] Tonya Murray PA-C [address] [place] [address] 09/02/2024 9:00 AM EDT Office Visit Hematology/Oncology [facility] [address] [facility] [place] [phone] Henok Stauffer MD [address] [facility] [place] [address] 09/09/2024 11:00 AM EDT Office Visit [facility], [facility] [phone] [facility] [address] [place] [address] 11/24/2024 2:40 PM EDT Office Visit Nephrology, [facility] [address] [facility] [place] [address] Eric Day MD [address] [facility] [place] [address] 12/24/2024 10:00 AM EDT Office Visit Cardiology, [facility] 132 [facility] [place] [address] Sophy Sands PA-C [address] [place] [address] 03/29/2025 3:45 PM EST Office Visit Ophthalmology, [place] [address] [place] [address] Ernie Rivers DO [address] [place] [address] 04/15/2025 10:00 AM EST Office Visit [facility] Practice [facility] [place] [address] Chris Asencio, DO [address] [place] [address] Scheduled Orders Name Type Priority Associated Diagnoses Orde r Schedule HEMOGLOBIN A1C Lab Routine Diabetes mellitus (HCC) Expected: 09/16/2024, Expires: 07/08/2025 PHOSPHORUS Lab Routine Chronic kidney disease, unspecified CKD stage Expected: 09/16/2024, Expires: 07/08/2025 COMPREHENSIVE METABOLIC PANEL Lab Routine Chronic kidney disease, unspecified CKD stage Expected: 09/16/2024, Expires: 07/08/2025 Scheduled Procedures Name Priority Associated Diagnoses Date/Ti me COLONOSCOPY FLEXIBLE PROXIMA L DIAGNOSTIC Recall Family history of colon cancer Scheduled Referrals Name Type Priority Associated Diagnoses Orde r Schedule PAIN MEDICINE REFERRAL OP Referral Within 10 days (routine) Mild back pain Ordered: 07/14/2024 Health Maintenance Due Date Last Done Comments Cologuard 1997 Fecal Occult Blood Test 1997 Sigmoidoscopy 1997 Zoster Vaccines (2 of 3) 05/07/2013 03/12/2013 Adult Wellness Visit 10/13/2023 10/12/2022, 01/10/20 21 Depression Monitoring 10/13/2023 10/12/2022 COVID-19 Vaccine ( season) 2024 03/02/2024, 09/09/2020, 08/19/2020 CKD PHOS USE SMARTSET 53781 09/16/202408/26, 06/18/2023, 06/06/2023, Additional history exists GFR 09/23/2024 03/25/2024, 02/25, 01/06/2024, Additional history exists HbA1c 09/23/2024 03/25/2024, 08/26, 04/24/2023, Additional history exists Diabetic Foot Exam 10/02/2024 10/03/2023, 1 07/24/2019, 04/06/2019, Additional history exists Diabetic Eye Exam 03/05/2025 03/05/2024, , 03/05/2024, Additional history exists Mammogram 03/05/2025 03/05/2024, 07/2022, 02/26/2023, Additional history exists CKD HGB USE SMARTSET 80743 03/25/202503/25, 03/25/2024, 03/16/2024, Additional history exists Albumin/Creatinine [...] with stage 3b chronic kidney disease (HCC) Mild back pain- Primary Diabetes mellitus (HCC) Type II or unspecified type diabetes mellitus without mention of complication, not stated as uncontrolled Chronic kidney disease, unspecified CKD stage documented in this encounter Advance Directives Documents on File Type Date Recorded 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 No Care Teams Spot Billing Clerk Relationship Specialty Start Date End Date Chris Asencio DO [address] [facility] [place] [address] PCP - General Family Medicine 01/07/18 documented as of this encounter
--- OUTSIDE RECORDS SUMMARY | 2024-09-21 22:37 | External Medical Summary ---
Author Name Unknown Address Unknown Organization [id number]:LABORATORY [facility] - [address] [facility] [address] Laboratory Report Ordering Provider Test Date Status MAHNAZ COLON 07/31/2024 11:10:47 Final Observation Date Value Abnormality Reference (Units ) Status Color of Urine by Auto 07/31/2024 11:10:47 Yellow Colorless, Light Yellow, Yellow, Dark Yellow Final Clarity, Urine 07/31/2024 11:10:47 Cloudy Abnormal Clear Final Glucose [Mass/volume] in Urine by Automated test strip 07/31/2024 11:10:47 Negative Negative (mg/dL) Final Bilirubin.total [Presence] in Urine by Automated test strip 07/31/2024 11:10:47 Negative Negative Final Ketones [Mass/volume] in Urine by Automated test strip 07/31/2024 11:10:47 Negative Negative (mg/dL) Final Specific gravity, Urine 07/31/2024 11:10:47 1.009 1.003-1.030 Final Hemoglobin [Presence] in Urine by Automated test strip 07/31/2024 11:10:47 Moderate Abnormal Negative Final pH, Urine 07/31/2024 11:10:47 7.0 5.0-7.5 (Units) Final Protein [Mass/volume] in Urine by Automated test strip 07/31/2024 11:10:47 Trace Abnormal Negative (mg/dL) Final Urobilinogen [Mass/volume] in Urine by Automated test strip 07/31/2024 11:10:47 Normal Normal (mg/dL) Final Nitrite [Presence] in Urine by Automated test strip 07/31/2024 11:10:47 Negative Negative Final Leukocyte esterase [Presence] in Urine by Automated test strip 07/31/2024 11:10:47 Large Abnormal Negative Final RBC, Urine 07/31/2024 11:10:47 6-9 Abnormal 0-2 (/HPF) Final WBC, Urine 07/31/2024 11:10:47 50+ Abnormal 0-2 (/HPF) Final Bacteria [#/area] in Urine sediment by Microscopy high power field 07/31/2024 11:10:47 26-50 Abnormal 0-25 (/HPF) Final Transitional cells [#/area] in Urine sediment by Microscopy high power field 07/31/2024 11:10:47 1-4 Abnormal None (/HPF) Final Leukocyte clumps [#/area] in Urine sediment by Microscopy high power field 07/31/2024 11:10:47 Present Abnormal None (/HPF) Final Performing Location LABORATORY [facility] - [address] [facility] [address]
--- OUTSIDE RECORDS SUMMARY | 2024-09-21 22:37 | External Medical Summary | Summary of Care ---
Author Name Unknown Organization [facility] Address [address] [place] [address] Phone [phone] Care Team Providers Care Wood Flour Miller Name Role Phone Chris Asencio DO Primary Care Provider Reason for Visit * Reason Onset Date Comments Medication Refill 08/03/2024 Encounter Details Date Type Department Care Team (Late st Contact Info) Description 08/03/2024 Telephone Family Practice [facility] [address] [place] [address] Chris Asencio DO [address] [place] [address] Medication Refill Allergies Active Allergy Reactions Criticality [...] as of this encounter (statuses as of 08/03/2024) Medications Spacer/Aero-Holding Chambers DEVIIndications:Mod erate persistent asthma [...] E11.9 400 Strip 5 04/17/20 23 Active XanEduToCheggin UltraSoft LancetsIndications: Type 2 diabetes mellitus with [...] 4 3:16 PM EDT 05/09/20 23 Active Movatu Verio Flex System w/Device Kit USE 1 DEVICE DIRECTED EVERY EVENING. UP TO 4 TIMES A DAY TO CHECK BLOOD GLUCOSE E11.9 04/17/20 23 Active Dexcom G7 It Systems Engineer Device Use as directed. Act vlad Dexcom [...] mouth 2 times a day. Active Calcitonin ([place]) 200 UNIT/ACT Nasal Solution Administer 1 [place] into one nostril in the morning. alternate [...] bedtime. 40 Capsule 04/14/20 24 Active Methscopolamine [place] 2.5 MG Oral TabletIndications:I rritable bowel [...] hemoglobin A1c goal of less than 8.0% ([facility]) Inject 20 Units under the skin daily. Replaces tresiba 15 mL 4 07/07/19 25 Active NovoLOG FlexPen 100 UNIT/ML Subcutaneous Solution Pen-injector (insulin aspart)Indications: Type 2 diabetes mellitus with hemoglobin A1c goal of less than 8.0% ([facility]) inject 5 units before breakfast, 2 [...] as of this encounter (statuses as of 08/03/2024) Active Problems Patient Care Coordination No te [...] as of this encounter (statuses as of 08/03/2024) Resolved Problems Problem Noted Date Diagnosed Date [...] Pranav Sanchez MD [facility] [place] Spinal pain 06/04/2014 02/02/2017 Type 2 diabetes [...] as of this encounter (statuses as of 08/03/2024) Immunizations Name Administration Dates Next Due COVID-19 mRNA, LNP-s, No Pre serve, 2-Dose Series ([employer]) 09/09/2020,08/19/2020 Covid-19, Mrna, Lnp-s, Pf, B ivalent, 30 Mcg, IM, 12 yrs and above ([employer]) 03/02/2024 Pneumococcal Conjugate Vacc, 13 Valent (Prevnar) [...] No 12/20/2023 Does the household have a [facility] source of income? (Household - for ages [...] encounter Miscellaneous Notes * Telephone Encounter - Leena Mann LPN [...] AM EDT Office Visit Interventional Pain Center [facility] [address] [place] [phone] Tonya Murray PA-C [address] [place] [address] 09/02/2024 9:00 AM EDT Office Visit Hematology/Oncology [facility] [place] [address] [place] [phone] Henok Stauffer MD [address] [place] [address] 09/09/2024 11:00 AM EDT [facility] Visit [facility] [phone] [address] 11/24/2024 2:40 PM EDT Office Visit Nephrology, [facility] [address] [place] [address] Eric Day MD [address] [place] [address] 12/24/2024 10:00 AM EDT Office Visit Cardiology, [facility] [address] [place] [address] Sophy Sands [place] [address] [place] [address] 03/29/2025 3:45 PM EST Office Visit Ophthalmology, [place] [address] [place] [address] Ernie Rivers, DO [address] [place] [address] 04/15/2025 10:00 AM EST Office Visit Family Practice [facility] [address] [place] [address] Chris Asencio, [address] [place] [address] Scheduled Procedures Name Priority Associated Diagnoses Date/Ti [...] 03/02/2024, 09/09/2020, 08/19/2020 CKD PHOS USE SMARTSET 62148 09/16/202408/26, 06/18/2023, 06/06/2023, Additional history exists GFR 09/23/2024 03/25/2024, 02/25, 01/06/2024, Additional history exists HbA1c 09/23/2024 03/25/2024, 08/26, 04/24/2023, Additional history exists Diabetic Foot Exam 10/02/2024 10/03/2023, 1 07/24/2019, 04/06/2019, Additional history exists Diabetic Eye Exam 03/05/2025 03/05/2024, , 03/05/2024, Additional history exists Mammogram 03/05/2025 03/05/2024, 07/2022, 02/26/2023, Additional history exists CKD HGB USE SMARTSET 36344 03/25/202503/25, 03/25/2024, 03/16/2024, Additional history exists Albumin/Creatinine [...] Documents on File Type Date Recorded 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 No Care Teams Wood Flour Miller Relationship Specialty Start Date End Date Chris Asencio DO [address] [place] [address] PCP - General Family Medicine 01/07/18 documented as of this encounter
--- OUTSIDE RECORDS SUMMARY | 2024-09-21 22:37 | External Medical Summary | Summary of Care ---
Author Name Unknown Organization [facility] Address [address] [place] [address] Phone [phone] Care Team Providers Care Strip Cutter Name Role Phone Chris Asencio DO Primary Care Provider Reason for Visit * Reason Onset Date Comments Medication Refill 08/03/2024 Encounter Details Date Type Department Care Team (Late st Contact Info) Description 08/03/[address] [facility] [address] [place] [address] Chris Asencio DO [address] [place] [address] Medication Refill Allergies Active Allergy Reactions Criticality [...] E11.9 400 Strip 5 04/17/20 23 Active Mu SigmaToRecommend UltraSoft LancetsIndications: Type 2 diabetes mellitus with [...] 4 3:16 PM EDT 05/09/20 23 Active [employer]St[employer].com Verio Flex System w/Device Kit USE 1 DEVICE DIRECTED EVERY EVENING. UP TO 4 TIMES A DAY TO CHECK BLOOD GLUCOSE E11.9 04/17/20 23 Active Dexcom G7 Operations Expert Device Use as directed. Act vlad Dexcom [...] mouth 2 times a day. Active Calcitonin ([place]) 200 UNIT/ACT Nasal Solution Administer 1 [place] into one nostril in the morning. alternate [...] bedtime. 40 Capsule 04/14/20 24 Active Methscopolamine [place] 2.5 MG Oral TabletIndications:I rritable bowel syndrome [...] hemoglobin A1c goal of less than 8.0% ([facility]) Inject 20 Units under the skin daily. Replaces tresiba 15 mL 4 07/07/19 25 Active NovoLOG FlexPen 100 UNIT/ML Subcutaneous Solution Pen-injector (insulin aspart)Indications: Type 2 diabetes mellitus with hemoglobin A1c goal of less than 8.0% ([facility]) inject 5 units before breakfast, [...] Overview (06/04/2014): Signed 06/04/2014 Pranav Sanchez MD [facility] [place] Spinal pain 06/04/2014 02/02/2017 Type 2 diabetes [...] mRNA, LNP-s, No Pre serve, 2-Dose Series ([employer]) 09/09/2020,08/19/2020 Covid-19, Mrna, Lnp-s, Pf, B ivalent, 30 Mcg, IM, 12 yrs and above ([employer]) 03/02/2024 Pneumococcal Conjugate Vacc, 13 Valent (Prevnar) [...] No 12/20/2023 Does the household have a [facility] source of income? (Household - for ages [...] AM EDT Office Visit Interventional Pain Center [facility] [address] [place] [phone] Tonya Murray PA-C [address] [place] [address] 09/02/2024 9:00 AM EDT Office Visit Hematology/Oncology [facility] [place] [address] [place] [phone] Henok Stauffer MD [address] [place] [address] 09/09/2024 11:00 AM EDT Office Visit Pharmacy, [facility] [phone] [address] 11/24/2024 2:40 PM EDT Office Visit Nephrology, [facility] [address] [place] [address] Eric Day MD [address] [place] [address] 12/24/2024 10:00 AM EDT Office Visit Cardiology, [facility] [address] [place] [address] Sophy Sands [place] [address] [place] [address] 03/29/2025 3:45 PM EST Office Visit Ophthalmology, [place] [address] [place] [address] Ernie Rivers, DO [address] [place] [address] 04/15/2025 10:00 AM EST Office Visit Family Practice [facility] [address] [place] [address] Chris Asencio, [address] [place] [address] Scheduled Procedures Name Priority Associated Diagnoses Date/Ti [...] 03/02/2024, 09/09/2020, 08/19/2020 CKD PHOS USE SMARTSET 61897 09/16/202408/26, 06/18/2023, 06/06/2023, Additional history exists GFR 09/23/2024 03/25/2024, 02/25, 01/06/2024, Additional history exists HbA1c 09/23/2024 03/25/2024, 08/26, 04/24/2023, Additional history exists Diabetic Foot Exam 10/02/2024 10/03/2023, 1 07/24/2019, 04/06/2019, Additional history exists Diabetic Eye Exam 03/05/2025 03/05/2024, , 03/05/2024, Additional history exists Mammogram 03/05/2025 03/05/2024, 07/2022, 02/26/2023, Additional history exists CKD HGB USE SMARTSET 54124 03/25/202503/25, 03/25/2024, 03/16/2024, Additional history exists Albumin/Creatinine [...] Documents on File Type Date Recorded Patient Drop Forger Expl anation POLST 10/20/2021 [place] OR [facility] FOR LIFE-SUSTAINING TREATMENT * [...] Power of Attor buddy? No Care Teams Strip Cutter Relationship Specialty Start Date End Date Chris Asencio DO [address] [place] [address] PCP - General Family Medicine 01/07/18 documented as of this encounter
--- OUTSIDE RECORDS SUMMARY | 2024-09-21 22:37 | External Medical Summary | Summary of Care ---
Author Name Unknown Organization [facility] Address [address] [place] [address] Phone [phone] Care Team Providers Care Sign Erector Name Role Phone Chris Asencio Primary Care Provider Reason for Visit * Reason Comments Outpatient Testing Encounter Details Date Type Department Care Team (Late st Contact Info) Description 07/31/2024 11:10 AM EST Laboratory Laboratory, [facility] [address] [place] [address] [facility] [address] [place], [place] [phone] Suspected urinary tract infection Allergies Active Allergy [...] as of this encounter (statuses as of 07/31/2024) Medications Spacer/Aero-Holding Chambers DEVIIndications:Mod erate persistent asthma [...] E11.9 400 Strip 5 04/17/20 23 Active Game VenturesTouch UltraSoft LancetsIndications: Type 2 diabetes mellitus with [...] 4 3:16 PM EDT 05/09/20 23 Active Game VenturesToPerkStreet Financial Verio Flex System w/Device Kit USE 1 DEVICE DIRECTED EVERY EVENING. UP TO 4 TIMES A DAY TO CHECK BLOOD GLUCOSE E11.9 04/17/20 23 Active Dexcom G7 Hop Strainer Device Use as directed. Act vlad Dexcom G7 Sensor Use as directed. Active Triamcinolone Acetonide 0.1 % External Ointment (Aristocort) Apply topically to affected area 2 times a day 80 g 5 4 12:34 PM EDT 07/11/19 24 Active Ferrous Gluconate 240 (27 Fe) MG Oral Tablet ([place]) TAKE BY MOUTH 1 TABLET DAILY . 90 Tablet 3 03/12/202 4 2:42 PM EDT 08/01/19 24 Active [...] mouth 2 times a day. Active Calcitonin ([place]) 200 UNIT/ACT Nasal Solution Administer 1 [place] into one nostril in the morning. alternate [...] bedtime. 40 Capsule 04/14/20 24 Active Methscopolamine [place] 2.5 MG Oral TabletIndications:I rritable bowel syndrome [...] hemoglobin A1c goal of less than 8.0% ([facility]) Inject 20 Units under the skin [...] as of this encounter (statuses as of 07/31/2024) Active Problems Patient Care Coordination No te [...] as of this encounter (statuses as of 07/31/2024) Resolved Problems Problem Noted Date Diagnosed Date [...] Overview (06/04/2014): Signed 06/04/2014 Pranav Sanchez MD [facility] Pharm[facility] [place] Spinal pain 06/04/2014 02/02/2017 Type 2 diabetes [...] as of this encounter (statuses as of 07/31/2024) Immunizations Name Administration Dates Next Due COVID-19 mRNA, LNP-s, No Pre serve, 2-Dose Series ([employer]) 09/09/2020,08/19/2020 Covid-19, Mrna, Lnp-s, Pf, B ivalent, 30 Mcg, IM, 12 yrs and above ([employer]) 03/02/2024 Pneumococcal Conjugate Vacc, 13 Valent (Prevnar) [...] AM EDT Office Visit Interventional Pain Center [facility] [address] [place] [phone] Tonya Murray PA-C [address] [place] [address] 09/02/2024 9:00 AM EDT Office Visit Hematology/Oncology [facility] [address] [facility] [address], [place] [phone] Henok Stauffer MD [address] [facility] [place] [address] 09/09/2024 11:00 AM EDT Office Visit [facility], [facility] [phone] [facility] [address] [place] [address] 11/24/2024 2:40 PM EDT Office Visit Nephrology, [facility] [address] [facility] [place] [address] Eric Day MD [address] [facility] [place] [address] 12/24/2024 10:00 AM EDT Office Visit Cardiology, [facility] 132 [facility] [place] [address] Sophy Sands, LG [address] [place] [address] 03/29/2025 3:45 PM EST Office Visit Ophthalmology, [place] [address] [place] [address] Ernie Rivers DO [address] [place] [address] 04/15/2025 10:00 AM EST Office Visit Family Practice [facility] [address] [place] [address] Chris Asencio, [address] [place] [address] Pending Results Name Type Priority Associated Diagnoses Date /Time CULTURE, URINE, QUANTITATIVE Lab Routine Suspected urinary tract infection 07/31/2024 11:10 AM EST Scheduled Procedures Name Priority Associated [...] 03/02/2024, 09/09/2020, 08/19/2020 CKD PHOS USE SMARTSET 62295 09/16/202408/26, 06/18/2023, 06/06/2023, Additional history exists GFR 09/23/2024 03/25/2024, 02/25, 01/06/2024, Additional history exists HbA1c 09/23/2024 03/25/2024, 08/26, 04/24/2023, Additional history exists Diabetic Foot Exam 10/02/2024 10/03/2023, 1 07/24/2019, 04/06/2019, Additional history exists Diabetic Eye Exam 03/05/2025 03/05/2024, , 03/05/2024, Additional history exists Mammogram 03/05/2025 03/05/2024, 07/2022, 02/26/2023, Additional history exists CKD HGB USE SMARTSET 06893 03/25/202503/25, 03/25/2024, 03/16/2024, Additional history exists Albumin/Creatinine [...] Procedure Name Priority Date/Time Associated Diagnosis Comments URINALYSIS WITH MICROSCOPIC EXAM Routine 07/31/2024 11:10 AM EST Suspected urinary tract infection documented in this encounter Results * (ABNORMAL) URINALYSIS WITH MICROSCOPIC EXAM (07/31/2024 11:10 AM EST) Color, Urine Yellow Colorless, Light Yellow, Yellow, Dark Yellow 07/31/2024 11:05 PM EST [facility] Clarity, Urine Cloudy(A) Clear 07/31/2024 11:05 PM EST [facility] Glucose, Urine Negative Negative mg/dL 07/31/2024 11:05 PM EST [facility] Bilirubin, Urine Negative Negative 08/01/19 25 11:05 PM EST [facility] Ketone, Urine Negative Negative mg/dL 07/31/2024 11:05 PM EST [facility] Specific [place], Urine 1.009 1.003 - 1.030 07/31/2024 11:05 PM EST [facility] Blood, Urine Moderate(A) Negative 07/31/2024 11:05 PM EST [facility] pH, Urine 7.0 5.0 - 7.5 Units 07/31/2024 11:05 PM EST [facility] Protein, Urine Trace(A) Negative mg/dL 07/31/2024 11:05 PM EST [facility] Urobilinogen, Urine Normal Normal mg/dL 07/31/2024 11:05 PM EST [facility] Nitrite, Urine Negative Negative 07/31/2024 11:05 PM EST [facility] Esterase, Urine Large(A) Negative 11:05 PM EST [facility] RBC, Urine 6-9(A) 0 - 2 /HPF 07/31/2024 11:05 PM EST [facility] WBC, Urine 50+(A) 0 - 2 /HPF 07/31/2024 11:05 PM EST [facility] Bacteria, Urine 26-50(A) 0 - 25 /HPF 08/01/19 25 11:05 PM EST [facility] Transitional Epithelial Cells, Urine 1-4(A) None /HPF 07/31/2024 11:05 PM EST [facility] WBC Clumps, Urine Present(A) None /HPF 07/31/2024 11:05 PM EST [facility] [place] Urine specimen obtained by clean catch procedure / Unknown Non-blood Collection / Unknown 07/31/2024 11:10 AM EST 07/31/2024 11:10 AM EST [facility] LAB URINE ORDERABLES Final Result [facility] [place] [address] [place] [address] documented in this encounter Visit Diagnoses Diagnosis Advanced care [...] stage 3b chronic kidney disease (HCC) Suspected urinary tract infection documented in this encounter Advance Directives Documents on File Type Date Recorded Patient Finishing Range Feeder Expl anation POLST 10/20/2021 [place] OR [facility] FOR LIFE-SUSTAINING TREATMENT * Full [...] Power of Attor buddy? No Care Teams Sign Erector Relationship Specialty Start Date End Date Chris Asecnio DO [address] [place] [address] PCP - General Family Medicine 01/07/18 documented as of this encounter
--- OUTSIDE RECORDS SUMMARY | 2024-09-21 22:37 | External Medical Summary | Summary of Care ---
Author Name Unknown Organization [facility] Address [address] [place] [address] Phone [phone] Care Team Providers Care Leather Grainer Name Role Phone Chris Asencio Primary Care Provider Reason for Visit * Reason Comments Outpatient Testing Encounter Details Date Type Department Care Team (Late st Contact Info) Description 07/31/2024 11:10 AM EST Laboratory Laboratory, [facility] [address] [place] [address] [facility] [address] [place], [place] [phone] Suspected urinary tract infection Allergies Active Allergy [...] E11.9 400 Strip 5 04/17/20 23 Active Traycer Diagnostic SystemsTouch UltraSoft LancetsIndications: Type 2 diabetes mellitus with [...] 4 3:16 PM EDT 05/09/20 23 Active Traycer Diagnostic SystemsToPrizeo Verio Flex System w/Device Kit USE 1 DEVICE DIRECTED EVERY EVENING. UP TO 4 TIMES A DAY TO CHECK BLOOD GLUCOSE E11.9 04/17/20 23 Active Dexcom G7 Basket Filler Device Use as directed. Act vlad Dexcom [...] mouth 2 times a day. Active Calcitonin ([place]) 200 UNIT/ACT Nasal Solution Administer 1 [place] into one nostril in the morning. alternate [...] 40 Capsule 04/14/20 24 Active Methscopolamine [place] [employer] 2.5 MG Oral TabletIndications:I rritable bowel syndrome [...] hemoglobin A1c goal of less than 8.0% ([facility]) Inject 20 Units [...] (06/04/2014): Signed 06/04/2014 Pranav Sanchez MD [facility] Pharm[facility] [place] Spinal pain 06/04/2014 02/02/2017 Type 2 diabetes [...] mRNA, LNP-s, No Pre serve, 2-Dose Series ([employer]) 09/09/2020,08/19/2020 Covid-19, Mrna, Lnp-s, Pf, B ivalent, 30 Mcg, IM, 12 yrs and above ([employer]) 03/02/2024 Pneumococcal Conjugate Vacc, 13 Valent [...] AM EDT Office Visit Interventional Pain Center [facility] [address] [place] [phone] Tonya Murray PA-C [address] [place] [address] 09/02/2024 9:00 AM EDT Office Visit Hematology/Oncology [facility] [address] [facility] [place], [place] [phone] Henok Stauffer MD [address] [facility] [place] [address] 09/09/2024 11:00 AM EDT Office Visit [facility], [facility] [phone] [facility] [address] [place] [address] 11/24/2024 2:40 PM EDT Office Visit Nephrology, [facility] [address] [facility] [place] [address] Eric Day MD [address] [facility] [place] [address] 12/24/2024 10:00 AM EDT Office Visit Cardiology, [facility] 132 [facility] [place] [address] Sophy Sands, [place] [address] [place] [address] 03/29/2025 3:45 PM EST Office Visit Ophthalmology, [place] [address] [place] [address] Ernie Rivers DO [address] [place] [address] 04/15/2025 10:00 AM EST Office Visit Family Practice [facility] [address] [place] [address] Chris Asencio, [address] [place] [address] Pending Results Name Type Priority Associated Diagnoses Date /Time URINALYSIS WITH MICROSCOPIC EXAM Lab Routine Suspected urinary tract infection 07/31/2024 11:10 AM EST CULTURE, URINE, QUANTITATIVE Lab Routine [...] 03/02/2024, 09/09/2020, 08/19/2020 CKD PHOS USE SMARTSET 92817 09/16/202408/26, 06/18/2023, 06/06/2023, Additional history exists GFR 09/23/2024 03/25/2024, 02/25, 01/06/2024, Additional history exists HbA1c 09/23/2024 03/25/2024, 08/26, 04/24/2023, Additional history exists Diabetic Foot Exam 10/02/2024 10/03/2023, 1 07/24/2019, 04/06/2019, Additional history exists Diabetic Eye Exam 03/05/2025 03/05/2024, , 03/05/2024, Additional history exists Mammogram 03/05/2025 03/05/2024, 07/2022, 02/26/2023, Additional history exists CKD HGB USE SMARTSET 12440 03/25/202503/25, 03/25/2024, 03/16/2024, Additional history exists Albumin/Creatinine [...] Documents on File Type Date Recorded Patient Race Starter Expl anation POLST 10/20/2021 [place] OR [facility] FOR LIFE-SUSTAINING TREATMENT * Full [...] Power of Attor buddy? No Care Teams Leather Grainer Relationship Specialty Start Date End Date Chris Asencio DO [address] [place] [address] [address] PCP - General Family Medicine 01/07/18 documented as of this encounter
--- OUTSIDE RECORDS SUMMARY | 2024-09-21 22:37 | External Medical Summary ---
Author Name Unknown Address Unknown Organization K01:[facility] [place] [address] [place] [id number] Laboratory Report Ordering Provider Test Date Status MAHNAZ COLON 07/31/2024 11:10:47 Final Observation Date Value Abnormality Reference (Units) Status Bacteria identified in Specimen by Culture 07/31/2024 11:10:47 No significant growth Final Test: Culture, Urine, Quanti tative
Specimen Source: Urine, Clean Catch
Specimen Type: Urine
Specimen Date: 07/31/2024 1110
Result Date: 08/01/2024 1638
Result Status: Final result
Resulting Lab: [facility]
[address]
[place] [address]

CULTURE

No significant growth

null Performing Location [facility] [place] [address] [facility] [place] [address]
--- OUTSIDE RECORDS SUMMARY | 2024-09-21 22:38 | External Medical Summary | Summary of Care ---
Author Name Unknown Organization [facility] Address [address] [place] [address] Phone [phone] Care Team Providers Care Computer Teacher Name Role Phone Chris Asencio Primary Care Provider Reason for Visit * Reason Onset Date Comments No Show 07/13/2024 Encounter Details Date Type Department Care Team (Late st Contact Info) Description 07/13/2024 Telephone Hematology/Oncology [facility] [address] [place] [address] Henok Stauffer MD [address] [place] [address] No Show Allergies Active Allergy Reactions Criticality [...] as of this encounter (statuses as of 07/14/2024) Medications Spacer/Aero-Holding Chambers DEVIIndications:Mod erate persistent asthma [...] E11.9 400 Strip 5 04/17/20 23 Active [employer] UltraSoft LancetsIndications: Type 2 diabetes mellitus with [...] 4 3:16 PM EDT 05/09/20 23 Active [employer] Verio Flex System w/Device Kit USE 1 DEVICE DIRECTED EVERY EVENING. UP TO 4 TIMES A DAY TO CHECK BLOOD GLUCOSE E11.9 04/17/20 23 Active Dexcom G7 Horticultural Worker Device Use as directed. Act vlad Dexcom G7 Sensor Use as directed. Active Triamcinolone Acetonide 0.1 % External Ointment (Aristocort) Apply topically to affected area 2 times a day 80 g 5 4 12:34 PM EDT 07/11/19 Active Ferrous Gluconate [...] mouth 2 times a day. Active Calcitonin ([place]) 200 UNIT/ACT Nasal Solution Administer 1 [place] into one nostril in the morning. alternate [...] bedtime. 40 Capsule 04/14/20 24 Active Methscopolamine [place] 2.5 MG Oral TabletIndications:I rritable bowel syndrome [...] A1c goal of less than 8.0% ([facility]) Inject 20 Units [...] as of this encounter (statuses as of 07/14/2024) Active Problems Patient Care Coordination No te [...] as of this encounter (statuses as of 07/14/2024) Resolved Problems Problem Noted Date Diagnosed Date [...] Pranav Sanchez MD [facility] Pharmacy [place] Spinal pain 06/04/2014 02/02/2017 Type 2 diabetes [...] as of this encounter (statuses as of 07/14/2024) Immunizations Name Administration Dates Next Due COVID-19 mRNA, LNP-s, No Pre serve, 2-Dose Series ([employer]) 09/09/2020,08/19/2020 Covid-19, Mrna, Lnp-s, Pf, B ivalent, 30 Mcg, IM, 12 yrs and above ([employer]) 03/02/2024 Pneumococcal Conjugate Vacc, 13 Valent (Prevnar) [...] Telephone Encounter - Esthela Damon OSA - 07/14/2024 7:56 AM EST 2nd attempt - Called unable to leave as the line was busy after about 15 rings * Telephone Encounter - Esthela Damon OSA - 07/13/2024 3:08 PM EST My g sent * Telephone Encounter - Kellie Corey MED ASSIST - 07/13/2024 3:04 PM EST Pt did not show for her appointment with on 07/13/24. Please call to reschedule. Thank You documented in this encounter Plan of Treatment Upcoming Encounters Date Type Department Care Team (Late st Contact Info) Description 09/09/2024 11:00 AM EDT [facility] [place] [facility] [address] [place] [phone] [facility] [address] [place] [address] 11/24/2024 2:40 PM EDT Office Visit Nephrology, [place] [address] [place] [address] Eric aDy MD 200 [facility] [place] [address] 12/24/2024 10:00 AM EDT Office Visit Cardiology, [facility] [address] [place] [address] Sophy Sands PA-C [address] [place] [address] 03/29/2025 3:45 PM EST Office Visit Ophthalmology, [place] [address] [place] [address] Ernie Rivers DO [address] [place] [address] 04/15/2025 10:00 AM EST Office Visit Family Practice [facility] [address] [place] [address] Chris Asencio DO [address] [place] [address] Scheduled Procedures Name Priority Associated Diagnoses Date/Ti [...] 03/02/2024, 09/09/2020, 08/19/2020 CKD PHOS USE SMARTSET 99988 09/16/202408/26, 06/18/2023, 06/06/2023, Additional history exists GFR 09/23/2024 03/25/2024, 02/25, 01/06/2024, Additional history exists HbA1c 09/23/2024 03/25/2024, 08/26, 04/24/2023, Additional history exists Diabetic Foot Exam 10/02/2024 10/03/2023, 1 07/24/2019, 04/06/2019, Additional history exists Diabetic Eye Exam 03/05/2025 03/05/2024, , 03/05/2024, Additional history exists Mammogram 03/05/2025 03/05/2024, 07/2022, 02/26/2023, Additional history exists CKD HGB USE SMARTSET 14936 03/25/202503/25, 03/25/2024, 03/16/2024, Additional history exists Albumin/Creatinine [...] Documents on File Type Date Recorded Patient Cook House Laborer Expl anation POLST 10/20/2021 [place] OR [facility] FOR LIFE-SUSTAINING TREATMENT * Full Code [...] Power of Attor buddy? No Care Teams Computer Teacher Relationship Specialty Start Date End Date Chris Asencio DO [address] [place] [address] PCP - General Family Medicine 01/07/18 documented as of this encounter
--- OUTSIDE RECORDS SUMMARY | 2024-09-21 22:38 | External Medical Summary | Summary of Care ---
Author Name Unknown Organization [facility] Address [address] [place] [address] Phone [phone] Care Team Providers Care Assistant County Engineer Name Role Phone Chris Asencio DO Primary Care Provider Reason for Referral * Evaluate & Treat - Unlimited Visits (Within 10 days (routine)) - Authorized Specialty Diagnoses / Procedures Referred By Kristin mayer Referred To Contact Pain Management / Pain Medicine Diagnoses Mild back pain Chris Asencio DO [address] [place] [address] Phone: tel: fax: Referral ID Status Reason Start Date Expiration Date Visits Requested Visits Authorized [id number] Authorized Specialty Services Required 07/14/2024 999 999 [...] pain if not done previously. Fax No. [facility] [phone] or contact agent spa desk [phone] Fax No. [facility] [phone] or contact agent spa desk [phone] Fax No. [facility] [phone] or contact agent spa desk [phone] Reason for Visit * Reason Onset Date Comments Health Maintenance 07/06/2024 Encounter Details Date Type Department Care Team (Late st Contact Info) Description 07/06/2024 Telephone Family Practice [facility] [address] [place] [address] Chris Asencio DO [address] [place] [address] Health Maintenance Allergies Active Allergy Reactions Criticality [...] as of this encounter (statuses as of 07/15/2024) Medications Spacer/Aero-Holdin socorro Singh DEVIIndications:Mo derate persistent [...] 400 Strip 5 04/17/20 Active OneTouch UltraSoft LancetsIndications :Type 2 diabetes [...] 4 3:16 PM EDT 05/09/20 23 Active [employer] Flex System w/Device Kit USE 1 DEVICE DIRECTED EVERY EVENING. UP TO 4 TIMES A DAY TO CHECK BLOOD GLUCOSE E11.9 04/17/20 23 Active Dexcom G7 Clay Temperer Device Use as directed. Active Dexcom G7 [...] mouth 2 times a day. Active Calcitonin (Alpha) 200 UNIT/ACT Nasal Solution Administer 1 [place] into one nostril in the morning. alternate [...] bedtime. 40 Capsule 04/14/20 24 Active Methscopolamine [place] 2.5 MG Oral TabletIndications: Irritable bowel syndrome [...] the skin once a week. Obtaining from [employer] 025 Discontin ued(Refil l) NovoLOG FlexPen 100 UNIT/ML Subcutaneous Solution Pen-injector (insulin aspart) Inject under the skin three times a day with meals. 5 units before breakfast, 2 units with lunch and 2 units with supper + CF of 1:50 over 120 [when off ozempic] 4 units before breakfast [when taking ozempic] [facility] [facility]25 Discontin ued(Refil l) Tresiba FlexTouch 200 UNIT/ML Subcutaneous Solution Pen-injector (Insulin Degludec) Inject 16 Units under the skin in the morning. Obtaining from [employer]. 025 Discontin ued(Refil l) Hospital, Clinic, or Other Facility Administered Medication Ordered Dose Route Frequency Start Date End Date Status albuterol sulfate (PROVENTIL) (2.5 MG/3ML) 0.083% inhalation solution 2.5 mgIndications:Moderate persistent asthma without complication 2.5 mg NEBULIZER Q4H PRN 08/13/2018 Active documented as of this encounter (statuses as of 07/15/2024) Active Problems Patient Care Coordination No te [...] as of this encounter (statuses as of 07/15/2024) Resolved Problems Problem Noted Date Diagnosed Date [...] Overview (06/04/2014): Signed 06/04/2014 Pranav Sanchez MD [facility] Pharmacy [place] Spinal pain 06/04/2014 02/02/2017 Type 2 [...] as of this encounter (statuses as of 07/15/2024) Immunizations Name Administration Dates Next Due COVID-19 mRNA, LNP-s, No Pre serve, 2-Dose Series (Confer) 09/09/2020,08/19/2020 Covid-19, Mrna, Lnp-s, Pf, B ivalent, 30 Mcg, IM, 12 yrs and above (Confer) 03/02/2024 Pneumococcal Conjugate Vacc, 13 Valent (Prevnar) [...] ( season) 2024 CKD PHOS USE SMARTSET 47881 09/16/2024 HbA1c 09/23/2024 GFR 09/23/2024 Diabetic Foot Exam 10/02/2024 O[facility] August awv Care Gap Outreach Action Taken: Unable to reach and MyChart message sent Rings no vm documented in this encounter Plan of Treatment Upcoming Encounters Date Type Department Care Team (Late st Contact Info) Description 08/25/2024 11:30 AM EDT Office Visit Interventional Pain Center [facility] [address] [place] [address] Tonya Murray PA-C [address] [place] [address] 09/09/2024 11:00 AM EDT [facility] [place] [facility] [address] [place] [phone] [place] [address] [address] 11/24/2024 2:40 PM EDT Office Visit Nephrology, [facility] [address] [place] [address] Eric Day MD [address] [place] [address] 12/24/2024 10:00 AM EDT Office Visit Cardiology, [facility] [place] [address] Sophy Sands PA-C [address] [place] [address] 03/29/2025 3:45 PM EST Office Visit Ophthalmology, [place] [address] [place] [address] Ernie Rivers DO [address] [place] [address] 04/15/2025 10:00 AM EST Office Visit Family Practice [facility] [address] [place] [address] Chris Asencio DO [address] [place] [address] Scheduled Orders Name Type Priority Associated Diagnoses [...] 03/02/2024, 09/09/2020, 08/19/2020 CKD PHOS USE SMARTSET 69417 09/16/202408/26, 06/18/2023, 06/06/2023, Additional history exists GFR 09/23/2024 03/25/2024, 02/25, 01/06/2024, Additional history exists HbA1c 09/23/2024 03/25/2024, 08/26, 04/24/2023, Additional history exists Diabetic Foot Exam 10/02/2024 10/03/2023, 1 07/24/2019, 04/06/2019, Additional history exists Diabetic Eye Exam 03/05/2025 03/05/2024, , 03/05/2024, Additional history exists Mammogram 03/05/2025 03/05/2024, 07/2022, 02/26/2023, Additional history exists CKD HGB USE SMARTSET 50332 03/25/202503/25, 03/25/2024, 03/16/2024, Additional history exists Albumin/Creatinine [...] Documents on File Type Date Recorded Patient Transportation Escort Expl anation POLST 10/20/2021 [place] OR [facility] FOR LIFE-SUSTAINING TREATMENT * Full Code [...] Power of Attor buddy? No Care Teams Assistant County Engineer Relationship Specialty Start Date End Date Chris Asencio DO [address] [place] [address] PCP - General Family Medicine 01/07/18 documented as of this encounter
--- OUTSIDE RECORDS SUMMARY | 2024-09-21 22:38 | External Medical Summary | Summary of Care ---
Author Name Unknown Organization [facility] Address [address] [place] [address] Phone [phone] Care Team Providers Care Ceramics Artist Name Role Phone Chris Asencio Primary Care Provider Reason for Visit * Reason Onset Date Comments No Show 07/13/2024 Encounter Details Date Type Department Care Team (Late st Contact Info) Description 07/13/2024 Telephone Hematology/Oncology [facility] [address] [place] [address] Henok Stauffer MD [address] [place] [address] No Show Allergies Active Allergy Reactions Criticality [...] E11.9 400 Strip 5 04/17/20 23 Active [employer] UltraSoft LancetsIndications: Type 2 diabetes mellitus with [...] 4 3:16 PM EDT 05/09/20 23 Active [employer] Verio Flex System w/Device Kit USE 1 DEVICE DIRECTED EVERY EVENING. UP TO 4 TIMES A DAY TO CHECK BLOOD GLUCOSE E11.9 04/17/20 23 Active Dexcom G7 Door Technician Device Use as directed. Act vlad Dexcom [...] mouth 2 times a day. Active Calcitonin ([place]) 200 UNIT/ACT Nasal Solution Administer 1 [place] into one nostril in the morning. alternate [...] bedtime. 40 Capsule 04/14/20 24 Active Methscopolamine [place] 2.5 MG Oral TabletIndications:I rritable bowel syndrome [...] hemoglobin A1c goal of less than 8.0% ([facility]) Inject 20 Units under [...] Overview (06/04/2014): Signed 06/04/2014 Pranav Sanchez MD [facility] Pharmacy [place] Spinal pain 06/04/2014 02/02/2017 Type 2 diabetes [...] mRNA, LNP-s, No Pre serve, 2-Dose Series ([employer]) 09/09/2020,08/19/2020 Covid-19, Mrna, Lnp-s, Pf, B ivalent, 30 Mcg, IM, 12 yrs and above ([employer]) 03/02/2024 Pneumococcal Conjugate Vacc, 13 Valent [...] 09/09/2024 11:00 AM EDT [facility] [place] [facility] [address] [place] [phone] [facility] [address] [place] [address] 11/24/2024 2:40 PM EDT Office Visit Nephrology, [place] Calder[place] [address] [place] [address] Eric Day MD 200 [facility] [place] [address] 12/24/2024 10:00 AM EDT Office Visit Cardiology, [facility] [address] [place] [address] Sophy Sands PA-C [address] [place] [address] 03/29/2025 3:45 PM EST Office Visit Ophthalmology, [place] [address] [place] [address] Ernie Rivers DO [address] [place] [address] 04/15/2025 10:00 AM EST Office Visit Family Practice [facility] [address] [place] [address] Chris Asencio DO [address] [place] [address] Scheduled Procedures Name Priority Associated Diagnoses Date/Ti [...] 03/02/2024, 09/09/2020, 08/19/2020 CKD PHOS USE SMARTSET 43975 09/16/202408/26, 06/18/2023, 06/06/2023, Additional history exists GFR 09/23/2024 03/25/2024, 02/25, 01/06/2024, Additional history exists HbA1c 09/23/2024 03/25/2024, 08/26, 04/24/2023, Additional history exists Diabetic Foot Exam 10/02/2024 10/03/2023, 1 07/24/2019, 04/06/2019, Additional history exists Diabetic Eye Exam 03/05/2025 03/05/2024, , 03/05/2024, Additional history exists Mammogram 03/05/2025 03/05/2024, 07/2022, 02/26/2023, Additional history exists CKD HGB USE SMARTSET 90633 03/25/202503/25, 03/25/2024, 03/16/2024, Additional history exists Albumin/Creatinine [...] on File Type Date Recorded Patient Field Care Manager Expl anation POLST 10/20/2021 [place] OR [facility] FOR LIFE-SUSTAINING TREATMENT * Full [...] Power of Attor buddy? No Care Teams Ceramics Artist Relationship Specialty Start Date End Date Chris Asencio DO [address] [place] [address] PCP - General Family Medicine 01/07/18 documented as of this encounter
--- OUTSIDE RECORDS SUMMARY | 2024-09-21 22:38 | External Medical Summary | Summary of Care ---
Author Name Unknown Organization [facility] Address [address] [place] [address] Phone [phone] Care Team Providers Care Plasterer Tender Name Role Phone Chris Asencio Primary Care Provider Reason for Visit * Reason Onset Date Comments No Show 07/13/2024 Encounter Details Date Type Department Care Team (Late st Contact Info) Description 07/13/2024 Telephone Hematology/Oncology [facility] [address] [place] [address] Henok Stauffer MD [address] [place] [address] No Show Allergies Active Allergy Reactions Criticality [...] this encounter (statuses as of 07/15/2024) Medications Spacer/Aero-Holding Chambers DEVIIndications:Mod erate persistent asthma [...] E11.9 400 Strip 5 04/17/20 23 Active [employer] UltraSoft LancetsIndications: Type 2 diabetes mellitus with [...] 4 3:16 PM EDT 05/09/20 23 Active [employer] Verio Flex System w/Device Kit USE 1 DEVICE DIRECTED EVERY EVENING. UP TO 4 TIMES A DAY TO CHECK BLOOD GLUCOSE E11.9 04/17/20 23 Active Dexcom G7 Olive Picker Device Use as directed. Act vlad Dexcom [...] mouth 2 times a day. Active Calcitonin ([place]) 200 UNIT/ACT Nasal Solution Administer 1 [place] into one nostril in the morning. alternate [...] bedtime. 40 Capsule 04/14/20 24 Active Methscopolamine [place] 2.5 MG Oral TabletIndications:I rritable bowel syndrome [...] hemoglobin A1c goal of less than 8.0% ([facility]) Inject 20 Units under [...] Overview (06/04/2014): Signed 06/04/2014 Pranav Sanchez MD [facility] Pharmacy [place] Spinal pain 06/04/2014 [...] mRNA, LNP-s, No Pre serve, 2-Dose Series ([employer]) 09/09/2020,08/19/2020 Covid-19, Mrna, Lnp-s, Pf, B ivalent, 30 Mcg, IM, 12 yrs and above ([employer]) 03/02/2024 Pneumococcal Conjugate Vacc, 13 Valent (Prevnar) [...] Telephone Encounter - Esthela Damon OSA - 07/15/2024 8:42 AM EST 3rd attempt line rang and then was busy My g sent Letter sent * Telephone Encounter - Esthela Damon OSA - 07/14/2024 7:56 AM EST 2nd attempt - Called unable to leave VM as the line was busy after about 15 rings * Telephone Encounter - Esthela Damon OSA - 07/13/2024 3:08 PM EST My g sent * Telephone Encounter - Kelile Corey MED ASSIST - 07/13/2024 3:04 PM EST Pt did not show for her appointment with on 07/13/24. Please call to reschedule. Thank You documented in this encounter Plan of Treatment Upcoming Encounters Date Type Department Care Team (Late st Contact Info) Description 09/09/2024 11:00 AM EDT Office Visit Pharmacy, [address] [facility] [place] [phone] [facility] [address] [place], [place] [address] [address] 11/24/2024 2:40 PM EDT Office Visit Nephrology, [place] Calder[place] [address] [place] [address] Eric Day MD [address] [place] [address] 12/24/2024 10:00 AM EDT Office Visit Cardiology, [facility] [address] [place] [address] Sophy Sands, LG 132 [facility] [place] [address] 03/29/2025 3:45 PM EST Office Visit Ophthalmology, [place] [address] [place] [address] Ernie Rivers, DO [address] [place] [address] 04/15/2025 10:00 AM EST Office Visit Family [facility] [address] [place] [address] Chris Asencio, DO [address] [place] [address] Scheduled Procedures Name Priority Associated Diagnoses Date/Ti [...] 03/02/2024, 09/09/2020, 08/19/2020 CKD PHOS USE SMARTSET 10123 09/16/202408/26, 06/18/2023, 06/06/2023, Additional history exists GFR 09/23/2024 03/25/2024, 02/25, 01/06/2024, Additional history exists HbA1c 09/23/2024 03/25/2024, 08/26, 04/24/2023, Additional history exists Diabetic Foot Exam 10/02/2024 10/03/2023, 1 07/24/2019, 04/06/2019, Additional history exists Diabetic Eye Exam 03/05/2025 03/05/2024, , 03/05/2024, Additional history exists Mammogram 03/05/2025 03/05/2024, 10/07/2022, 02/26/2023, Additional history exists CKD HGB USE SMARTSET 02519 03/25/202503/25, 03/25/2024, 03/16/2024, Additional history exists Albumin/Creatinine [...] Documents on File Type Date Recorded Patient Welfare Analyst Expl anation POLST 10/20/2021 [place] OR [facility] FOR LIFE-SUSTAINING TREATMENT * Full Code [...] Power of Attor buddy? No Care Teams Plasterer Tender Relationship Specialty Start Date End Date Chris Asencio DO [address] [place] [address] PCP - General Family Medicine 01/07/18 documented as of this encounter
--- OUTSIDE RECORDS SUMMARY | 2024-09-21 22:38 | External Medical Summary | Summary of Care ---
Author Name Unknown Organization [facility] Address [address] [place] [address] Phone [phone] Care Team Providers Care Bakery Technician Name Role Phone Chris Asencio DO Primary Care Provider Reason for Referral * Evaluate & Treat - Unlimited Visits (Within 10 days (routine)) - Authorized Specialty Diagnoses / Procedures Referred By Kristin mayer Referred To Contact Pain Management / Pain Medicine Diagnoses Mild back pain Chris Asencio DO [address] [place] [address] Phone: tel: fax: Referral ID Status Reason Start Date Expiration Date Visits Requested Visits Authorized [id number] Authorized Specialty Services Required 07/14/[phone] [...] pain if not done previously. Fax No. [facility] [phone] or contact front line supervisor [phone] Fax No. [facility] [phone] or contact front line supervisor [phone] Fax No. [facility] [phone] or contact front line supervisor [phone] Reason for Visit * Reason Onset Date Comments Health Maintenance 07/06/2024 Encounter Details Date Type Department Care Team (Late st Contact Info) Description 07/06/2024 Telephone Family Practice [facility] [address] [place] [address] Chris Asencio DO [address] [place] [address] Health Maintenance Allergies Active Allergy Reactions Criticality [...] this encounter (statuses as of 07/14/2024) Medications Spacer/Aero-Holdin socorro Sinhg DEVIIndications:Mo derate persistent asthma without complication Use [...] 4 3:16 PM EDT 05/09/20 23 Active Sgnam Flex System w/Device Kit USE 1 DEVICE DIRECTED EVERY EVENING. UP TO 4 TIMES A DAY TO CHECK BLOOD GLUCOSE E11.9 04/17/20 23 Active Dexcom G7 Senior Commissions Analyst Device Use as directed. Active Dexcom G7 [...] mouth 2 times a day. Active Calcitonin ([place]) 200 UNIT/ACT Nasal Solution Administer 1 [place] into one nostril in the morning. alternate [...] bedtime. 40 Capsule 04/14/20 24 Active Methscopolamine [place] 2.5 MG Oral TabletIndications: Irritable bowel syndrome [...] the skin once a week. Obtaining from [employer] [facility] 025 Discontin ued(Refil l) NovoLOG FlexPen 100 UNIT/ML Subcutaneous Solution Pen-injector (insulin aspart) Inject under the skin three times a day with meals. 5 units before breakfast, 2 units with lunch and 2 units with supper + CF of 1:50 over 120 [when off ozempic] 4 units before breakfast [when taking ozempic] [facility] 0[facility] Discontin ued(Refil l) Tresiba FlexTouch 200 UNIT/ML Subcutaneous Solution Pen-injector (Insulin Degludec) Inject 16 Units under the skin in the morning. Obtaining from [employer] [facility]. 025 Discontin ued(Refil l) Hospital, Clinic, or [...] Overview (06/04/2014): Signed 06/04/2014 Pranav Sanchez MD [facility] Pharmacy [place] Spinal pain 06/04/2014 02/02/2017 Type 2 diabetes [...] mRNA, LNP-s, No Pre serve, 2-Dose Series ([employer]) 09/09/2020,08/19/2020 Covid-19, Mrna, Lnp-s, Pf, B ivalent, 30 Mcg, IM, 12 yrs and above ([employer]) 03/02/2024 Pneumococcal Conjugate Vacc, 13 Valent (Prevnar) [...] ( season) 2024 CKD PHOS USE SMARTSET 51668 09/16/2024 HbA1c 09/23/2024 GFR 09/23/2024 Diabetic Foot Exam 10/02/2024 Ov Labs August Care Gap Outreach Action Taken: Unable to reach and TrendingGameshart message sent Rings no vm documented in this encounter Plan of Treatment Upcoming Encounters Date Type Department Care Team (Late st Contact Info) Description 09/09/2024 11:00 AM EDT Office Visit Pharmacy, [address] [place] [phone] [facility] [address] [place] [address] 11/24/2024 2:40 PM EDT Office Visit Nephrology, Misty Calderon [address] [place], [place] [phone] Eric Day MD 200 [facility] [place], [place] [address] 12/24/2024 10:00 AM EDT Office Visit Cardiology, [facility] [address] [place] [address] Sophy Sands, LG 132 [facility] [place] [address] 03/29/2025 3:45 PM EST Office Visit Ophthalmology, [place] [address] [place] [address] Ernie Rivers DO [facility] [place] [address] 04/15/2025 10:00 AM EST Office Visit Family Practice [facility] [address] [place] [address] Chris Asencio DO 132 [facility] [place] [address] Scheduled Orders Name Type Priority Associated Diagnoses [...] 03/02/2024, 09/09/2020, 08/19/2020 CKD PHOS USE SMARTSET 39628 09/16/202408/26, 06/18/2023, 06/06/2023, Additional history exists GFR 09/23/2024 03/25/2024, 02/25, 01/06/2024, Additional history exists HbA1c 09/23/2024 03/25/2024, 08/26, 04/24/2023, Additional history exists Diabetic Foot Exam 10/02/2024 10/03/2023, 1 07/24/2019, 04/06/2019, Additional history exists Diabetic Eye Exam 03/05/2025 03/05/2024, , 03/05/2024, Additional history exists Mammogram 03/05/2025 03/05/2024, 07/2022, 02/26/2023, Additional history exists CKD HGB USE SMARTSET 54331 03/25/202503/25, 03/25/2024, 03/16/2024, Additional history exists Albumin/Creatinine [...] Documents on File Type Date Recorded Patient Unclaimed Property Manager Expl anation POLST 10/20/2021 [place] OR [facility] [...] Power of Attor buddy? No Care Teams Bakery Technician Relationship Specialty Start Date End Date Chris Asencio DO [address] [place] [address] PCP - General Family Medicine 01/07/18 documented as of this encounter
--- OUTSIDE RECORDS SUMMARY | 2024-09-21 22:38 | External Medical Summary | Summary of Care ---
Author Name Unknown Organization [facility] Address [address] [place] [address] Phone [phone] Care Team Providers Care High Risk Case Manager Name Role Phone Chris Asencio DO Primary Care Provider Reason for Referral * Evaluate & Treat - Unlimited Visits (Within 10 days (routine)) - Authorized Specialty Diagnoses / Procedures Referred By Kristin mayer Referred To Contact Pain Management / Pain Medicine Diagnoses Mild back pain Chris Asencio DO [address] [place] [address] Phone: tel: fax: Referral ID Status Reason Start Date Expiration Date Visits Requested Visits Authorized [id number] Authorized Specialty Services Required 07/14/[phone] [...] pain if not done previously. Fax No. [facility] [phone] or contact front line supervisor [phone] Fax No. [facility] [phone] or contact front line supervisor [phone] Fax No. [facility] [phone] or contact front line supervisor [phone] Reason for Visit * Reason Onset Date Comments Health Maintenance 07/06/2024 Encounter Details Date Type Department Care Team (Late st Contact Info) Description 07/06/2024 Telephone Family Practice [facility] [address] [place] [address] Chris Asencio DO [address] [place] [address] Health Maintenance Allergies Active Allergy Reactions Criticality [...] (statuses as of 07/14/2024) Medications Spacer/Aero-Holdin socorro Singh DEVIIndications:Mo derate persistent [...] 4 3:16 PM EDT 05/09/20 23 Active [employer] Flex System w/Device Kit USE 1 DEVICE DIRECTED EVERY EVENING. UP TO 4 TIMES A DAY TO CHECK BLOOD GLUCOSE E11.9 04/17/20 23 Active Dexcom G7 Tourist Agent Device Use as directed. Active Dexcom G7 [...] mouth 2 times a day. Active Calcitonin ([place]) 200 UNIT/ACT Nasal Solution Administer 1 [place] into one nostril in the morning. alternate [...] bedtime. 40 Capsule 04/14/20 24 Active Methscopolamine [place] 2.5 MG Oral TabletIndications: Irritable bowel syndrome [...] the skin once a week. Obtaining from [employer] [facility] 025 Discontin ued(Refil l) NovoLOG FlexPen 100 UNIT/ML Subcutaneous Solution Pen-injector (insulin aspart) Inject under the skin three times a day with meals. 5 units before breakfast, 2 units with lunch and 2 units with supper + CF of 1:50 over 120 [when off ozempic] 4 units before breakfast [when taking ozempic] [facility] 025 Discontin ued(Refil l) Tresiba FlexTouch 200 UNIT/ML Subcutaneous Solution Pen-injector (Insulin Degludec) Inject 16 Units under the skin in the morning. Obtaining from [employer] [facility]. 025 Discontin ued(Refil l) Hospital, Clinic, or [...] Overview (06/04/2014): Signed 06/04/2014 Pranav Sanchez MD [facility] Pharmacy [place] Spinal pain 06/04/2014 02/02/2017 Type 2 diabetes [...] mRNA, LNP-s, No Pre serve, 2-Dose Series ([employer]) 09/09/2020,08/19/2020 Covid-19, Mrna, Lnp-s, Pf, B ivalent, 30 Mcg, IM, 12 yrs and above ([employer]) 03/02/2024 Pneumococcal Conjugate Vacc, 13 Valent (Prevnar) [...] ( season) 2024 CKD PHOS USE SMARTSET 08163 09/16/2024 HbA1c 09/23/2024 GFR 09/23/2024 Diabetic Foot Exam 10/02/2024 Ov Labs August Care Gap Outreach Action Taken: Unable to reach and REDPoint Internationalhart message sent Rings no vm documented in this encounter Plan of Treatment Upcoming Encounters Date Type Department Care Team (Late st Contact Info) Description 09/09/2024 11:00 AM EDT Office Visit Pharmacy, [address] [place] [phone] [facility] [address] [place] [address] [address] 11/24/2024 2:40 PM EDT Office Visit Nephrology, Misty Calder[place] [address] [place], [place] [phone] Eric Day MD 200 [facility] [place], [place] [address] 12/24/2024 10:00 AM EDT Office Visit Cardiology, [facility] [address] [place] [address] Sophy Sands, [place] 132 [facility] [place] [address] 03/29/2025 3:45 PM EST Office Visit Ophthalmology, [place] [address] [place] [address] Ernie Rivers DO 21 [facility] [place] [address] 04/15/2025 10:00 AM EST Office Visit Family Practice [facility] [address] [place] [address] Chris Asencio DO 132 [facility] [place] [address] Scheduled Orders Name Type Priority Associated Diagnoses [...] 03/02/2024, 09/09/2020, 08/19/2020 CKD PHOS USE SMARTSET 82751 09/16/202408/26, 06/18/2023, 06/06/2023, Additional history exists GFR 09/23/2024 03/25/2024, 02/25, 01/06/2024, Additional history exists HbA1c 09/23/2024 03/25/2024, 08/26, 04/24/2023, Additional history exists Diabetic Foot Exam 10/02/2024 10/03/2023, 1 07/24/2019, 04/06/2019, Additional history exists Diabetic Eye Exam 03/05/2025 03/05/2024, , 03/05/2024, Additional history exists Mammogram 03/05/2025 03/05/2024, 07/2022, 02/26/2023, Additional history exists CKD HGB USE SMARTSET 78357 03/25/202503/25, 03/25/2024, 03/16/2024, Additional history exists Albumin/Creatinine [...] Documents on File Type Date Recorded Patient Wood Last Maker Expl anation POLST 10/20/2021 [place] OR [facility] FOR LIFE-SUSTAINING TREATMENT * Full Code [...] Power of Attor buddy? No Care Teams High Risk Case Manager Relationship Specialty Start Date End Date Chris Asencio DO [address] [place] [address] PCP - General Family Medicine 01/07/18 documented as of this encounter
--- OUTSIDE RECORDS SUMMARY | 2024-09-21 22:39 | External Medical Summary | Summary of Care ---
Author Name Unknown Organization [facility] Address [address] [place] [address] Phone [phone] Care Team Providers Care Form Setter Steel Pan Forms Name Role Phone Chris Asencio Primary Care Provider Reason for Visit * Reason Onset Date Comments No Show 07/13/2024 Encounter Details Date Type Department Care Team (Late st Contact Info) Description 07/13/2024 Telephone Hematology/Oncology [facility] [address] [place] [address] Henok Stauffer MD [address] [place] [address] No Show Allergies Active Allergy Reactions Criticality [...] E11.9 400 Strip 5 04/17/20 23 Active ProficiencyToRed Karaoke UltraSoft LancetsIndications: Type 2 diabetes mellitus with [...] 4 3:16 PM EDT 05/09/20 23 Active Proficiency[employer] Verio Flex System w/Device Kit USE 1 DEVICE DIRECTED EVERY EVENING. UP TO 4 TIMES A DAY TO CHECK BLOOD GLUCOSE E11.9 04/17/20 23 Active Dexcom G7 Utilization Supervisor Device Use as directed. Act vlad Dexcom [...] mouth 2 times a day. Active Calcitonin ([place]) 200 UNIT/ACT Nasal Solution Administer 1 [place] into one nostril in the morning. alternate [...] bedtime. 40 Capsule 04/14/20 24 Active Methscopolamine [place] 2.5 MG Oral TabletIndications:I rritable bowel syndrome [...] hemoglobin A1c goal of less than 8.0% ([facility]) Inject 20 Units under [...] Overview (06/04/2014): Signed 06/04/2014 Pranav Sanchez MD [facility] Pharmacy [place] Spinal pain 06/04/2014 02/02/2017 Type 2 diabetes [...] mRNA, LNP-s, No Pre serve, 2-Dose Series ([employer]) 09/09/2020,08/19/2020 Covid-19, Mrna, Lnp-s, Pf, B ivalent, 30 Mcg, IM, 12 yrs and above ([employer]) 03/02/2024 Pneumococcal Conjugate Vacc, 13 Valent (Prevnar) [...] Damon OSA - 07/14/2024 7:56 AM EST Called unable to leave as the line [...] 09/09/2024 11:00 AM EDT [facility] [place] [facility] [phone] [facility] [address] [place] [address] 11/24/2024 2:40 PM EDT Office Visit Nephrology, [facility] [address] [place] [address] Eric Day MD 200 [facility] [place] [address] 12/24/2024 10:00 AM EDT Office Visit Cardiology, [facility] 132 [facility] [place] [address] Sophy Sands PA-C 132 [facility] [place] [address] 03/29/2025 3:45 PM EST Office Visit Ophthalmology, [place] [address] [place] [address] Ernie Rivers DO [address] [place] [address] 04/15/2025 10:00 AM EST Office Visit Family Practice [facility] [address] [place] [address] Chris Asencio DO [address] [place] [address] Scheduled Procedures Name Priority Associated Diagnoses Date/Ti [...] 03/02/2024, 09/09/2020, 08/19/2020 CKD PHOS USE SMARTSET 97903 09/16/202408/26, 06/18/2023, 06/06/2023, Additional history exists GFR 09/23/2024 03/25/2024, 02/25, 01/06/2024, Additional history exists HbA1c 09/23/2024 03/25/2024, 08/26, 04/24/2023, Additional history exists Diabetic Foot Exam 10/02/2024 10/03/2023, 1 07/24/2019, 04/06/2019, Additional history exists Diabetic Eye Exam 03/05/2025 03/05/2024, , 03/05/2024, Additional history exists Mammogram 03/05/2025 03/05/2024, 07/2022, 02/26/2023, Additional history exists CKD HGB USE SMARTSET 46624 03/25/202503/25, 03/25/2024, 03/16/2024, Additional history exists Albumin/Creatinine [...] Documents on File Type Date Recorded Patient Wheat Shipper Expl anation POLST 10/20/2021 [place] OR [facility] FOR LIFE-SUSTAINING TREATMENT * Full [...] Power of Attor buddy? No Care Teams Form Setter Steel Pan Forms Relationship Specialty Start Date End Date Chris Asencio DO [address] [place] [address] PCP - General Family Medicine 01/07/18 documented as of this encounter
--- OUTSIDE RECORDS SUMMARY | 2024-09-21 22:39 | External Medical Summary | Summary of Care ---
Author Name Unknown Organization [facility] Address [address] [place] [address] Phone [phone] Care Team Providers Care Licensed Mental Health Counselor Name Role Phone Chris Asencio DO Primary Care Provider Reason for Visit * Reason Onset Date Comments Health Maintenance 07/06/2024 Encounter Details Date Type Department Care Team (Late st Contact Info) Description 07/06/2024 Telephone Family Practice [facility] [address] [place] [address] Chris Asencio DO [address] [place] [address] Health Maintenance Allergies Active Allergy Reactions Criticality [...] E11.9 400 Strip 5 04/17/20 23 Active [employer]ech ControlsTouch UltraSoft LancetsIndications :Type 2 diabetes mellitus with [...] 4 3:16 PM EDT 05/09/20 23 Active [employer] ControlsToMaestrano Verio Flex System w/Device Kit USE 1 DEVICE DIRECTED EVERY EVENING. UP TO 4 TIMES A DAY TO CHECK BLOOD GLUCOSE E11.9 04/17/20 23 Active Dexcom G7 Photo Editor Device Use as directed. Active Dexcom G7 [...] mouth 2 times a day. Active Calcitonin ([place]) 200 UNIT/ACT Nasal Solution Administer 1 [place] into one nostril in the morning. alternate [...] bedtime. 40 Capsule 04/14/20 24 Active Methscopolamine [place] 2.5 MG Oral TabletIndications: Irritable bowel syndrome [...] the skin once a week. Obtaining from [employer] 025 Discontin ued(Refil l) NovoLOG FlexPen 100 UNIT/ML Subcutaneous Solution Pen-injector (insulin aspart) Inject under the skin three times a day with meals. 5 units before breakfast, 2 units with lunch and 2 units with supper + CF of 1:50 over 120 [when off ozempic] 4 units before breakfast [when taking ozempic] Obtaining from [employer] [facility] 025 Discontin ued(Refil l) Tresiba FlexTouch 200 UNIT/ML Subcutaneous Solution Pen-injector (Insulin Degludec) Inject 16 Units under the skin in the morning. Obtaining from [employer] [facility]. 025 Discontin ued(Refil l) Hospital, Clinic, or [...] Overview (06/04/2014): Signed 06/04/2014 Pranav Sanchez MD [facility] Pharmacy [place] Spinal pain 06/04/2014 02/02/2017 Type 2 diabetes [...] mRNA, LNP-s, No Pre serve, 2-Dose Series ([employer]) 09/09/2020,08/19/2020 Covid-19, Mrna, Lnp-s, Pf, B ivalent, 30 Mcg, IM, 12 yrs and above ([employer]) 03/02/2024 Pneumococcal Conjugate Vacc, 13 Valent (Prevnar) [...] - thank you * Telephone Encounter - Madison Jones LPN - 07/13/2024 2:33 PM EST Pt [...] ( season) 2024 CKD PHOS USE SMARTSET 92898 09/16/2024 HbA1c 09/23/2024 GFR 09/23/2024 Diabetic Foot Exam 10/02/2024 Ov Labs August aw Care Gap Outreach Action Taken: Unable to reach and MyChart message sent Rings no vm documented in this encounter Plan of Treatment Upcoming Encounters Date Type Department Care Team (Late st Contact Info) Description 09/09/2024 11:00 AM EDT Office Visit Pharmacy, [facility] 226 [place] [phone] [facility] [address] [place] [address] 11/24/2024 2:40 PM EDT Office Visit Nephrology, [place] [address] [place] [address] Eric Day MD [address] [place] [address] 12/24/2024 10:00 AM EDT Office Visit Cardiology, [facility] [address] [place] [address] Sophy Sands PA-C 132 [facility] [place] [address] 03/29/2025 3:45 PM EST Office Visit Ophthalmology, [place] [address] [place] [address] Ernie Rivers DO [address] [place] [address] 04/15/2025 10:00 AM EST Office Visit Family [facility] [address] [place] [address] Chris Asencio DO [address] [place] [address] Scheduled Orders Name Type Priority Associated Diagnoses [...] 03/02/2024, 09/09/2020, 08/19/2020 CKD PHOS USE SMARTSET 44664 09/16/202408/26, 06/18/2023, 06/06/2023, Additional history exists GFR 09/23/2024 03/25/2024, 02/25, 01/06/2024, Additional history exists HbA1c 09/23/2024 03/25/2024, 08/26, 04/24/2023, Additional history exists Diabetic Foot Exam 10/02/2024 10/03/2023, 1 07/24/2019, 04/06/2019, Additional history exists Diabetic Eye Exam 03/05/2025 03/05/2024, , 03/05/2024, Additional history exists Mammogram 03/05/2025 03/05/2024, 07/2022, 02/26/2023, Additional history exists CKD HGB USE SMARTSET 27777 03/25/202503/25, 03/25/2024, 03/16/2024, Additional history exists Albumin/Creatinine [...] with stage 3b chronic kidney disease (HCC) Diabetes mellitus (HCC)- Primary Type II or unspecified type diabetes mellitus without mention of complication, not stated as uncontrolled Chronic kidney disease, unspecified CKD stage documented in this encounter Advance Directives Documents on File Type Date Recorded 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 No Care Teams Licensed Mental Health Counselor Relationship Specialty Start Date End Date Chris Asencio DO [address] [place] [address] PCP - General Family Medicine 01/07/18 documented as of this encounter
--- OUTSIDE RECORDS SUMMARY | 2024-09-21 22:39 | External Medical Summary | Summary of Care ---
Author Name Unknown Organization [facility] Address [address] [place] [address] Phone [phone] Care Team Providers Care Fitness Sales Associate Name Role Phone Chris Asencio Primary Care Provider Reason for Visit * Reason Onset Date Comments No Show 07/13/2024 Encounter Details Date Type Department Care Team (Late st Contact Info) Description 07/13/2024 Telephone Hematology/Oncology [facility] [address] [place] [address] Henok Stauffer MD [address] [place] [address] No Show Allergies Active Allergy Reactions Criticality [...] E11.9 400 Strip 5 04/17/20 23 Active MammotomeToPer[employer] Solutions UltraSoft LancetsIndications: Type 2 diabetes mellitus with [...] 4 3:16 PM EDT 05/09/20 23 Active MammotomeToPerTrac [employer] Verio Flex System w/Device Kit USE 1 DEVICE DIRECTED EVERY EVENING. UP TO 4 TIMES A DAY TO CHECK BLOOD GLUCOSE E11.9 04/17/20 23 Active Dexcom G7 Ceramic Tile Mechanic Device Use as directed. Act vlad Dexcom [...] mouth 2 times a day. Active Calcitonin ([place]) 200 UNIT/ACT Nasal Solution Administer 1 [place] into one nostril in the morning. alternate [...] bedtime. 40 Capsule 04/14/20 24 Active Methscopolamine [place] 2.5 MG Oral TabletIndications:I rritable bowel syndrome [...] goal of less than 8.0% ([facility]) Inject 20 Units under the skin [...] Signed 06/04/2014 Pranav Sanchez MD [facility] [place] Spinal pain 06/04/2014 02/02/2017 Type 2 [...] mRNA, LNP-s, No Pre serve, 2-Dose Series ([employer]) 09/09/2020,08/19/2020 Covid-19, Mrna, Lnp-s, Pf, B ivalent, 30 Mcg, IM, 12 yrs and above ([employer]) 03/02/2024 Pneumococcal Conjugate Vacc, 13 Valent (Prevnar) [...] * Telephone Encounter - Kellie Corey MED CHELA - 07/13/2024 3:04 PM EST Pt did not show for her appointment with on 07/13/24. Please call to reschedule. Thank You documented in this encounter Plan of Treatment Upcoming Encounters Date Type Department Care Team (Late st Contact Info) Description 09/09/2024 11:00 AM EDT Office Visit Pharmacy, Walter Cummings [address] [facility] [place] [phone] [facility] [address] [facility] [address] 11/24/2024 2:40 PM EDT Office Visit Nephrology, Misty Cicero [address] [place] [address] Eric Day MD [address] [facility] [place] [place] [address] 12/24/2024 10:00 AM EDT Office Visit Cardiology, [facility] [address] [place] [address] Sophy Sands PA-C [address] [place] [address] 03/29/2025 3:45 PM EST Office Visit Ophthalmology, Jeevan [address] [place] [address] Ernie Rivers DO [address] [place] [address] 04/15/2025 10:00 AM EST Office Visit Family Practice [facility] [address] [place] [address] Chris Asencio DO [address] [place] [address] Scheduled Procedures Name Priority Associated Diagnoses Date/Ti [...] 03/02/2024, 09/09/2020, 08/19/2020 CKD PHOS USE SMARTSET 40612 09/16/202408/26, 06/18/2023, 06/06/2023, Additional history exists GFR 09/23/2024 03/25/2024, 02/25, 01/06/2024, Additional history exists HbA1c 09/23/2024 03/25/2024, 08/26, 04/24/2023, Additional history exists Diabetic Foot Exam 10/02/2024 10/03/2023, 1 07/24/2019, 04/06/2019, Additional history exists Diabetic Eye Exam 03/05/2025 03/05/2024, , 03/05/2024, Additional history exists Mammogram 03/05/2025 03/05/2024, 07/2022, 02/26/2023, Additional history exists CKD HGB USE SMARTSET 75586 03/25/202503/25, 03/25/2024, 03/16/2024, Additional history exists Albumin/Creatinine [...] Documents on File Type Date Recorded 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 No Care Teams Fitness Sales Associate Relationship Specialty Start Date End Date Chris Asencio DO [address] [place] [address] PCP - General Family Medicine 01/07/18 documented as of this encounter
--- OUTSIDE RECORDS SUMMARY | 2024-09-21 22:39 | External Medical Summary | Summary of Care ---
Author Name Unknown Organization [facility] Address [address] [place] [address] Phone [phone] Care Team Providers Care Mat Cutter Name Role Phone Chris Asencio Primary Care Provider Reason for Visit * Reason Onset Date Comments No Show 07/13/2024 Encounter Details Date Type Department Care Team (Late st Contact Info) Description 07/13/2024 Telephone Hematology/Oncology [facility] [address] [place] [phone] Henok Stauffer MD [address] [place] [address] No Show Allergies Active Allergy Reactions Criticality [...] E11.9 400 Strip 5 04/17/20 23 Active [place] [employer] Technology[employer]Tell[employer] UltraSoft LancetsIndications: Type 2 diabetes mellitus with [...] 4 3:16 PM EDT 05/09/20 23 Active [place] [employer]iang[employer] Technology[employer] Verio Flex System w/Device Kit USE 1 DEVICE DIRECTED EVERY EVENING. UP TO 4 TIMES A DAY TO CHECK BLOOD GLUCOSE E11.9 04/17/20 23 Active Dexcom G7 Side Framer Device Use as directed. Act vlad Dexcom [...] mouth 2 times a day. Active Calcitonin ([place]) 200 UNIT/ACT Nasal Solution Administer 1 [place] into one nostril in the morning. alternate [...] bedtime. 40 Capsule 04/14/20 24 Active Methscopolamine [place] 2.5 MG Oral TabletIndications:I rritable bowel syndrome [...] goal of less than 8.0% ([facility]) Inject 20 Units under the skin [...] Overview (06/04/2014): Signed 06/04/2014 Pranav Sanchez MD [facility] Pharmacy [place] Spinal pain 06/04/2014 02/02/2017 Type 2 diabetes [...] mRNA, LNP-s, No Pre serve, 2-Dose Series ([employer]) 09/09/2020,08/19/2020 Covid-19, Mrna, Lnp-s, Pf, B ivalent, 30 Mcg, IM, 12 yrs and above ([employer]) 03/02/2024 Pneumococcal Conjugate Vacc, 13 Valent (Prevnar) [...] Telephone Encounter - Adi Segal OSA - 07/14/2024 7:57 AM EST Attempt made to call - No VM - Unable to LMOM * Telephone Encounter - Esthela Damon OSA [...] 09/09/2024 11:00 AM EDT Office Visit Pharmacy, [place] [facility] [address] [place] [phone] [facility] [address] [place] [address] 11/24/2024 2:40 PM EDT Office Visit Nephrology, Misty Calderon [address] [place] [address] Eric Day MD [address] [place] [address] 12/24/2024 10:00 AM EDT Office Visit Cardiology, [facility] [address] [place] [address] Sophy Sands, [place] [address] [facility] [place] [address] 03/29/2025 3:45 PM EST Office Visit Ophthalmology, Jeevan [address] [place] [address] Ernie Rivers, DO [address] [place] [address] 04/15/2025 10:00 AM EST Office Visit Family Practice [facility] [address] [place] [address] Chris Asencio, DO [address] [place] [address] Scheduled Procedures Name Priority Associated Diagnoses Date/Ti [...] 03/02/2024, 09/09/2020, 08/19/2020 CKD PHOS USE SMARTSET 50477 09/16/202408/26, 06/18/2023, 06/06/2023, Additional history exists GFR 09/23/2024 03/25/2024, 02/25, 01/06/2024, Additional history exists HbA1c 09/23/2024 03/25/2024, 08/26, 04/24/2023, Additional history exists Diabetic Foot Exam 10/02/2024 10/03/2023, 1 07/24/2019, 04/06/2019, Additional history exists Diabetic Eye Exam 03/05/2025 03/05/2024, , 03/05/2024, Additional history exists Mammogram 03/05/2025 03/05/2024, 07/2022, 02/26/2023, Additional history exists CKD HGB USE SMARTSET 93560 03/25/202503/25, 03/25/2024, 03/16/2024, Additional history exists Albumin/Creatinine [...] Documents on File Type Date Recorded 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 No Care Teams Mat Cutter Relationship Specialty Start Date End Date Chris Asencio DO [address] [place] [address] PCP - General Family Medicine 01/07/18 documented as of this encounter
--- OUTSIDE RECORDS SUMMARY | 2024-09-21 22:39 | External Medical Summary | Summary of Care ---
Author Name Unknown Organization [facility] Address [address] [place] [address] Phone [phone] Care Team Providers Care Mold Technician Name Role Phone Chris Asencio Primary Care Provider Reason for Visit * Reason Onset Date Comments No Show 07/13/2024 Encounter Details Date Type Department Care Team (Late st Contact Info) Description 07/13/2024 Telephone Hematology/Oncology [facility] [address] [place] [address] Henok Stauffer MD [address] [place] [address] No Show Allergies Active Allergy Reactions Criticality [...] E11.9 400 Strip 5 04/17/20 23 Active SONIC BLUE AEROSPACEToBTR UltraSoft LancetsIndications: Type 2 diabetes mellitus with [...] 4 3:16 PM EDT 05/09/20 23 Active SONIC BLUE AEROSPACEToBTR Verio Flex System w/Device Kit USE 1 DEVICE DIRECTED EVERY EVENING. UP TO 4 TIMES A DAY TO CHECK BLOOD GLUCOSE E11.9 04/17/20 23 Active Dexcom G7 Operational Risk Consultant Device Use as directed. Act vlad Dexcom [...] mouth 2 times a day. Active Calcitonin ([place]) 200 UNIT/ACT Nasal Solution Administer 1 [place] into one nostril in the morning. alternate [...] bedtime. 40 Capsule 04/14/20 24 Active Methscopolamine [place] 2.5 MG Oral TabletIndications:I rritable bowel syndrome [...] less than 8.0% ([facility]) Inject 20 Units under the [...] Overview (06/04/2014): Signed 06/04/2014 Pranav Sanchez MD [facility] Pharm[facility] [place] Spinal pain 06/04/2014 02/02/2017 Type 2 diabetes [...] mRNA, LNP-s, No Pre serve, 2-Dose Series ([employer]) 09/09/2020,08/19/2020 Covid-19, Mrna, Lnp-s, Pf, B ivalent, 30 Mcg, IM, 12 yrs and above ([employer]) 03/02/2024 Pneumococcal Conjugate Vacc, 13 Valent [...] EDT Office Visit Pharmacy, [facility] Cummings [address] [facility] [place] [phone] [facility] [address] [facility] [address] 11/24/2024 2:40 PM EDT Office Visit Nephrology, [place] [address] [place] [address] Eric Day MD [address] [facility] [place] [address] 12/24/2024 10:00 AM EDT Office Visit Cardiology, [facility] [address] [place] [address] Sophy Sands PA-C [address] [place] [address] 03/29/2025 3:45 PM EST Office Visit Ophthalmology, Jeevan [address] [place] [address] Ernie Rivers DO [address] [place] [address] 04/15/2025 10:00 AM EST Office Visit Family Practice [facility] [address] [place] [address] Chris Asencio DO [address] [place] [address] Scheduled Procedures Name Priority Associated Diagnoses Date/Ti [...] 03/02/2024, 09/09/2020, 08/19/2020 CKD PHOS USE SMARTSET 05088 09/16/202408/26, 06/18/2023, 06/06/2023, Additional history exists GFR 09/23/2024 03/25/2024, 02/25, 01/06/2024, Additional history exists HbA1c 09/23/2024 03/25/2024, 08/26, 04/24/2023, Additional history exists Diabetic Foot Exam 10/02/2024 10/03/2023, 1 07/24/2019, 04/06/2019, Additional history exists Diabetic Eye Exam 03/05/2025 03/05/2024, , 03/05/2024, Additional history exists Mammogram 03/05/2025 03/05/2024, 07/2022, 02/26/2023, Additional history exists CKD HGB USE SMARTSET 66206 03/25/202503/25, 03/25/2024, 03/16/2024, Additional history exists Albumin/Creatinine [...] Documents on File Type Date Recorded Patient Program Aide Expl anation POLST 10/20/2021 [place] OR [facility] FOR LIFE-SUSTAINING TREATMENT * Full [...] Power of Attor buddy? No Care Teams Mold Technician Relationship Specialty Start Date End Date Chris Asencio DO [address] [place] [address] PCP - General Family Medicine 01/07/18 documented as of this encounter
--- OUTSIDE RECORDS SUMMARY | 2024-09-21 22:39 | External Medical Summary | Summary of Care ---
Author Name Unknown Organization [facility] Address [address] [place] [address] Phone [phone] Care Team Providers Care Metal Bonding Helper Name Role Phone Chris Asencio Primary Care Provider Reason for Visit * Reason Onset Date Comments No Show 07/13/2024 Encounter Details Date Type Department Care Team (Late st Contact Info) Description 07/13/2024 Telephone Hematology/Oncology [facility] [address] [place] [address] Henok Stauffer MD [address] [place] [address] No Show Allergies Active Allergy Reactions Criticality [...] E11.9 400 Strip 5 04/17/20 23 Active batteriiToStreetcar UltraSoft LancetsIndications: Type 2 diabetes mellitus with [...] 4 3:16 PM EDT 05/09/20 23 Active batteriiToStreetcar Verio Flex System w/Device Kit USE 1 DEVICE DIRECTED EVERY EVENING. UP TO 4 TIMES A DAY TO CHECK BLOOD GLUCOSE E11.9 04/17/20 23 Active Dexcom G7 Brush Washer Device Use as directed. Act vlad Dexcom [...] mouth 2 times a day. Active Calcitonin ([place]) 200 UNIT/ACT Nasal Solution Administer 1 [place] into one nostril in the morning. alternate [...] bedtime. 40 Capsule 04/14/20 24 Active Methscopolamine [place] 2.5 MG Oral TabletIndications:I rritable bowel syndrome [...] than 8.0% ([facility]) Inject 20 Units under the [...] (06/04/2014): Signed 06/04/2014 Pranav Sanchez MD [facility] Pharmacy [place] Spinal pain 06/04/2014 02/02/2017 Type 2 diabetes [...] mRNA, LNP-s, No Pre serve, 2-Dose Series (Place[employer]logger) 09/09/2020,08/19/2020 Covid-19, Mrna, Lnp-s, Pf, B ivalent, 30 Mcg, IM, 12 yrs and above (Place[employer]logger) 03/02/2024 Pneumococcal Conjugate Vacc, 13 Valent (Prevnar) [...] 09/09/2024 11:00 AM EDT [facility] [place] [facility] [address] [place] [phone] [facility] [address] [place] [address] 11/24/2024 2:40 PM EDT Office Visit Nephrology, Misty Calderon [address] [place] [address] Eric Day MD 200 [facility] [place] [address] 12/24/2024 10:00 AM EDT Office Visit Cardiology, [facility] [address] [place] [address] Sophy Sands PA-C [address] [place] [address] 03/29/2025 3:45 PM EST Office Visit Ophthalmology, Jeevan [address] [place] [address] Ernie Rivers DO [address] [place] [address] 04/15/2025 10:00 AM EST Office Visit Family Practice [facility] [address] [place] [address] Chris Asencio DO [address] [place] [address] Scheduled Procedures Name Priority Associated Diagnoses Date/Ti [...] 03/02/2024, 09/09/2020, 08/19/2020 CKD PHOS USE SMARTSET 82302 09/16/202408/26, 06/18/2023, 06/06/2023, Additional history exists GFR 09/23/2024 03/25/2024, 02/25, 01/06/2024, Additional history exists HbA1c 09/23/2024 03/25/2024, 08/26, 04/24/2023, Additional history exists Diabetic Foot Exam 10/02/2024 10/03/2023, 1 07/24/2019, 04/06/2019, Additional history exists Diabetic Eye Exam 03/05/2025 03/05/2024, , 03/05/2024, Additional history exists Mammogram 03/05/2025 03/05/2024, 07/2022, 02/26/2023, Additional history exists CKD HGB USE SMARTSET 33218 03/25/202503/25, 03/25/2024, 03/16/2024, Additional history exists Albumin/Creatinine [...] Documents on File Type Date Recorded 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 No Care Teams Metal Bonding Helper Relationship Specialty Start Date End Date Chris Asencio DO [address] [place] [address] PCP - General Family Medicine 01/07/18 documented as of this encounter
--- OUTSIDE RECORDS SUMMARY | 2024-09-21 22:40 | External Medical Summary | Summary of Care ---
Author Name Unknown Organization [facility] Address [address] [place] [address] Phone [phone] Care Team Providers Care Building Construction Supervisor Name Role Phone Chris Asencio DO Primary Care Provider Reason for Visit * Reason Onset Date Comments Health Maintenance 07/06/2024 Encounter Details Date Type Department Care Team (Late st Contact Info) Description 07/06/2024 Telephone Family Practice [facility] [address] [place] [address] Chris Asencio DO [address] [place] [address] Health Maintenance Allergies Active Allergy Reactions Criticality [...] as of this encounter (statuses as of 07/09/2024) Medications Spacer/Aero-Holdin socorro Singh DEVIIndications:Mo derate persistent [...] E11.9 400 Strip 5 04/17/20 23 Active KiwiTechTouch UltraSoft LancetsIndications :Type 2 diabetes mellitus with [...] 4 3:16 PM EDT 05/09/20 23 Active KiwiTechToApplyMap Verio Flex System w/Device Kit USE 1 DEVICE DIRECTED EVERY EVENING. UP TO 4 TIMES A DAY TO CHECK BLOOD GLUCOSE E11.9 04/17/20 23 Active Dexcom G7 Receiving Clerk Device Use as directed. Active Dexcom [...] mouth 2 times a day. Active Calcitonin ([place]) 200 UNIT/ACT Nasal Solution Administer 1 [place] into one nostril in the morning. alternate [...] bedtime. 40 Capsule 04/14/20 24 Active Methscopolamine [place] 2.5 MG Oral TabletIndications: Irritable bowel syndrome [...] the skin once a week. Obtaining from NovoCiralight [employer]isk PAP 025 Discontin ued(Refil l) NovoLOG FlexPen 100 UNIT/ML Subcutaneous Solution Pen-injector (insulin aspart) Inject under the skin three times a day with meals. 5 units before breakfast, 2 units with lunch and 2 units with supper + CF of 1:50 over 120 [when off ozempic] 4 units before breakfast [when taking ozempic] Obtaining from NovoCiralight [employer]isk PAP 025 Discontin ued(Refil l) Tresiba FlexTouch 200 UNIT/ML Subcutaneous Solution Pen-injector (Insulin Degludec) Inject 16 Units under the skin in the morning. Obtaining from DataSync PAP. 025 Discontin ued(Refil l) Hospital, Clinic, or Other Facility Administered Medication Ordered Dose Route Frequency Start Date End Date Status albuterol sulfate (PROVENTIL) (2.5 MG/3ML) 0.083% inhalation solution 2.5 mgIndications:Moderate persistent asthma without complication 2.5 mg NEBULIZER Q4H PRN 08/13/2018 Active documented as of this encounter (statuses as of 07/09/2024) Active Problems Patient Care Coordination No te [...] as of this encounter (statuses as of 07/09/2024) Resolved Problems Problem Noted Date Diagnosed Date [...] Overview (06/04/2014): Signed 06/04/2014 Pranav Sanchez MD [facility] [place] Spinal pain 06/04/2014 02/02/2017 Type 2 diabetes [...] as of this encounter (statuses as of 07/09/2024) Immunizations Name Administration Dates Next Due COVID-19 mRNA, LNP-s, No Pre serve, 2-Dose Series ([employer]) 09/09/2020,08/19/2020 Covid-19, Mrna, Lnp-s, Pf, B ivalent, 30 Mcg, IM, 12 yrs and above ([employer]) 03/02/2024 Pneumococcal Conjugate Vacc, 13 Valent (Prevnar) [...] encounter Miscellaneous Notes * Addendum Note - Migdalia Gonzalez LPN [...] ( season) 2024 CKD PHOS USE SMARTSET 55148 09/16/2024 HbA1c 09/23/2024 GFR 09/23/2024 Diabetic Foot Exam 10/02/2024 Ov Labs August awv Care Gap Outreach Action Taken: Unable to reach and MyChart message sent Rings no vm documented in this encounter Plan of Treatment Upcoming Encounters Date Type Department Care Team (Late st Contact Info) Description 07/13/2024 10:00 AM EST Office Visit Hematology/Oncology [facility] [place] [address] [facility] [place] [phone] Henok Stauffer MD [address] [facility] [place] [address] 09/09/2024 11:00 AM EDT Office Visit [facility], [facility] [address] [facility] [phone] [place], [facility] [address] [facility] [address] 11/24/2024 2:40 PM EDT Office Visit Nephrology, [facility] [address] [facility] [place] [address] Eric Day MD [address] [facility] [place] [address] 12/24/2024 10:00 AM EDT Office Visit Cardiology, [facility] [address] [facility] [place] [address] Sophy Sands PA-C [address] [place] [address] 03/29/2025 3:45 PM EST Office Visit Ophthalmology, [place] [address] [place] [address] Ernie Rivers DO [address] [place] [address] 04/15/2025 10:00 AM EST Office Visit Family Practice [facility] [address] [facility] [place] [address] Chris Asencio, DO [address] [place] [address] Scheduled Orders Name Type Priority Associated Diagnoses [...] 03/02/2024, 09/09/2020, 08/19/2020 CKD PHOS USE SMARTSET 62014 09/16/202408/26, 06/18/2023, 06/06/2023, Additional history exists GFR 09/23/2024 03/25/2024, 02/25, 01/06/2024, Additional history exists HbA1c 09/23/2024 03/25/2024, 08/26, 04/24/2023, Additional history exists Diabetic Foot Exam 10/02/2024 10/03/2023, 1 07/24/2019, 04/06/2019, Additional history exists Diabetic Eye Exam 03/05/2025 03/05/2024, , 03/05/2024, Additional history exists Mammogram 03/05/2025 03/05/2024, 07/2022, 02/26/2023, Additional history exists CKD HGB USE SMARTSET 11414 03/25/202503/25, 03/25/2024, 03/16/2024, Additional history exists Albumin/Creatinine [...] Documents on File Type Date Recorded Patient Carpet Installation Specialist Expl bhargav MCGILL 10/20/2021 [place] OR [facility] FOR LIFE-SUSTAINING TREATMENT * Full [...] Power of Attor buddy? No Care Teams Building Construction Supervisor Relationship Specialty Start Date End Date Chris Asencio DO [address] [place] [address] [address] PCP - General Family Medicine 01/07/18 documented as of this encounter
--- OUTSIDE RECORDS SUMMARY | 2024-09-21 22:40 | External Medical Summary | Summary of Care ---
Author Name Unknown Organization [facility] Address [address] [place] [address] Phone [phone] Care Team Providers Care Loan Underwriter Name Role Phone Chris Asencio DO Primary Care Provider Reason for Visit * Reason Onset Date Comments Health Maintenance 07/06/2024 Encounter Details Date Type Department Care Team (Late st Contact Info) Description 07/06/2024 Telephone Family Practice [facility] [address] [place] [address] Chris Asencio DO [address] [place] [address] Health Maintenance Allergies Active Allergy Reactions Criticality [...] as of this encounter (statuses as of 07/13/2024) Medications Spacer/Aero-Holdin socorro Singh DEVIIndications:Mo derate persistent [...] E11.9 400 Strip 5 04/17/20 23 Active ScreenTouch UltraSoft LancetsIndications :Type 2 diabetes mellitus with [...] 4 3:16 PM EDT 05/09/20 23 Active ScreenToStudent Ret[employer] Verio Flex System w/Device Kit USE 1 DEVICE DIRECTED EVERY EVENING. UP TO 4 TIMES A DAY TO CHECK BLOOD GLUCOSE E11.9 04/17/20 23 Active Dexcom G7 Produce Assistant Device Use as directed. Active Dexcom G7 [...] mouth 2 times a day. Active Calcitonin ([place]) 200 UNIT/ACT Nasal Solution Administer 1 [place] into one nostril in the morning. alternate [...] bedtime. 40 Capsule 04/14/20 24 Active Methscopolamine [place] 2.5 MG Oral TabletIndications: Irritable bowel syndrome [...] the skin once a week. Obtaining from NovoTwitpayisk PAP 025 Discontin ued(Refil l) NovoLOG FlexPen 100 UNIT/ML Subcutaneous Solution Pen-injector (insulin aspart) Inject under the skin three times a day with meals. 5 units before breakfast, 2 units with lunch and 2 units with supper + CF of 1:50 over 120 [when off ozempic] 4 units before breakfast [when taking ozempic] Obtaining from NovoTwitpayisk PAP 025 Discontin ued(Refil l) Tresiba FlexTouch 200 UNIT/ML Subcutaneous Solution Pen-injector (Insulin Degludec) Inject 16 Units under the skin in the morning. Obtaining from Compufirst PAP. 025 Discontin ued(Refil l) Hospital, Clinic, or Other Facility Administered Medication Ordered Dose Route Frequency Start Date End Date Status albuterol sulfate (PROVENTIL) (2.5 MG/3ML) 0.083% inhalation solution 2.5 mgIndications:Moderate persistent asthma without complication 2.5 mg NEBULIZER Q4H PRN 08/13/2018 Active documented as of this encounter (statuses as of 07/13/2024) Active Problems Patient Care Coordination No te [...] as of this encounter (statuses as of 07/13/2024) Resolved Problems Problem Noted Date Diagnosed Date [...] Overview (06/04/2014): Signed 06/04/2014 Pranav Sanchez MD [facility] [place] Spinal pain 06/04/2014 02/02/2017 Type 2 diabetes [...] as of this encounter (statuses as of 07/13/2024) Immunizations Name Administration Dates Next Due COVID-19 mRNA, LNP-s, No Pre serve, 2-Dose Series ([employer]) 09/09/2020,08/19/2020 Covid-19, Mrna, Lnp-s, Pf, B ivalent, 30 Mcg, IM, 12 yrs and above ([employer]) 03/02/2024 Pneumococcal Conjugate Vacc, 13 Valent [...] ( season) 2024 CKD PHOS USE SMARTSET 78470 09/16/2024 HbA1c 09/23/2024 GFR 09/23/2024 Diabetic Foot Exam 10/02/2024 Ov Labs August aw Care Gap Outreach Action Taken: Unable to reach and MyChart message sent Rings no vm documented in this encounter Plan of Treatment Upcoming Encounters Date Type Department Care Team (Late st Contact Info) Description 09/09/2024 11:00 AM EDT Office Visit Pharmacy, [facility] [address] [place] [phone] [facility] [address] [place] [address] 11/24/2024 2:40 PM EDT Office Visit Nephrology, Misty [facility]on [address] [place] [address] Eric Day MD [address] [place] [address] 12/24/2024 10:00 AM EDT Office Visit Cardiology, [facility] [address] [place] [address] Sophy Sands PA-C [address] [facility] [place] [address] 03/29/2025 3:45 PM EST Office Visit Ophthalmology, [place] [address] [place] [address] Ernie Rivers DO [address] [place] [address] 04/15/2025 10:00 AM EST Office Visit Family [facility] [address] [place] [address] Chris Asencio DO [address] [place] [address] Scheduled Orders Name Type Priority Associated Diagnoses [...] 03/02/2024, 09/09/2020, 08/19/2020 CKD PHOS USE SMARTSET 25185 09/16/202408/26, 06/18/2023, 06/06/2023, Additional history exists GFR 09/23/2024 03/25/2024, 02/25, 01/06/2024, Additional history exists HbA1c 09/23/2024 03/25/2024, 08/26, 04/24/2023, Additional history exists Diabetic Foot Exam 10/02/2024 10/03/2023, 1 07/24/2019, 04/06/2019, Additional history exists Diabetic Eye Exam 03/05/2025 03/05/2024, , 03/05/2024, Additional history exists Mammogram 03/05/2025 03/05/2024, 07/2022, 02/26/2023, Additional history exists CKD HGB USE SMARTSET 75279 03/25/202503/25, 03/25/2024, 03/16/2024, Additional history exists Albumin/Creatinine [...] on File Type Date Recorded Patient Manager Critical Care Unit Expl anation POLST 10/20/2021 [place] OR [facility] FOR LIFE-SUSTAINING TREATMENT * Full Code (Latest Code Status on File) Date Activated Date Inactivated Comments 03/30/2022 6:40 AM 03/30/2022 2:12 PM This order r eflects the patients wishes and were consensually agreed upon. Question Answer Comments Discussion of Advance Directives occurred with: Patient Does the patient have a Living Will? No Does the patient have Health Care Power of Attor ubddy? No Care Teams Loan Underwriter Relationship Specialty Start Date End Date Chris Asencio DO [address] [place] [address] PCP - General Family Medicine 01/07/18 documented as of this encounter
--- OUTSIDE RECORDS SUMMARY | 2024-09-21 22:40 | External Medical Summary | Summary of Care ---
Author Name Unknown Organization [facility] Address [address] [place] [address] Phone [phone] Care Team Providers Care Refrigeration Houseman Name Role Phone Chris Asencio Primary Care Provider Encounter Details Date Type Department Care Team (Late st Contact Info) Description 07/07/2024 Population Health External Data Unspecified Department Allergies [...] Ondansetron Other (Please comment) 09/06/2020 Pt requesting zojarod be placed on allergy list due to extreme tiredness and fatigue after medication. documented as of this encounter (statuses as of 07/08/2024) Medications Spacer/Aero-Holding Chambers DEVIIndications:Mod erate persistent asthma [...] 4 3:16 PM EDT 05/09/20 23 Active mSellerio Flex System w/Device Kit USE 1 DEVICE DIRECTED EVERY EVENING. UP TO 4 TIMES A DAY TO CHECK BLOOD GLUCOSE E11.9 04/17/20 23 Active Dexcom G7 Drafter Engineering Device Use as directed. Act vlad Dexcom [...] 2 times a day. Active Calcitonin ([place]) 200 UNIT/ACT Nasal Solution Administer 1 [place] into one nostril in the morning. alternate [...] bedtime. 40 Capsule 04/14/20 24 Active Methscopolamine [place] 2.5 MG Oral TabletIndications:I rritable bowel syndrome [...] as of this encounter (statuses as of 07/08/2024) Active Problems Patient Care Coordination No te [...] as of this encounter (statuses as of 07/08/2024) Resolved Problems Problem Noted Date Diagnosed Date [...] Overview (06/04/2014): Signed 06/04/2014 Pranav Sanchez MD [facility] [place] Spinal pain 06/04/2014 02/02/2017 Type 2 diabetes [...] as of this encounter (statuses as of 07/08/2024) Immunizations Name Administration Dates Next Due COVID-19 mRNA, LNP-s, No Pre serve, 2-Dose Series ([employer]) 09/09/2020,08/19/2020 Covid-19, Mrna, Lnp-s, Pf, B ivalent, 30 Mcg, IM, 12 yrs and above ([employer]) 03/02/2024 Pneumococcal Conjugate Vacc, 13 Valent (Prevnar) [...] 07/13/2024 10:00 AM EST Office Visit Hematology/Oncology [facility] [address] [place] [phone] Henok Stauffer MD [address] [place] [address] 09/09/2024 11:00 AM EDT Office Visit Pharmacy, [address] [place] [phone] [place] [address] 11/24/2024 2:40 PM EDT Office Visit Nephrology, [facility] [address] [place] [address] Eric Day MD [address] [place] [address] 12/24/2024 10:00 AM EDT Office Visit Cardiology, [facility] [address] [place] [address] Sophy Sands PA-C [address] [place] [address] 03/29/2025 3:45 PM EST Office Visit Ophthalmology, [place] [address] [facility] [place] [address] Ernie Rivers DO [address] [place] [address] 04/15/2025 10:00 AM EST Office Visit Family Practice [facility] [address] [place] [address] Chris Asencio DO [address] [place] [address] Scheduled Procedures Name Priority Associated Diagnoses Date/Ti [...] 03/02/2024, 09/09/2020, 08/19/2020 CKD PHOS USE SMARTSET 46188 09/16/2024/07/2023, 06/18/2023, 06/06/2023, Additional history exists GFR 09/23/2024 03/25/2024, 02/25, 01/06/2024, Additional history exists HbA1c 09/23/2024 03/25/2024, 08/26, 04/24/2023, Additional history exists Diabetic Foot Exam 10/02/2024 10/03/2023, 1 07/24/2019, 04/06/2019, Additional history exists Diabetic Eye Exam 03/05/2025 03/05/2024, , 03/05/2024, Additional history exists Mammogram 03/05/2025 03/05/2024, 07/2022, 02/26/2023, Additional history exists CKD HGB USE SMARTSET 43042 03/25/202503/25, 03/25/2024, 03/16/2024, Additional history exists Albumin/Creatinine [...] Documents on File Type Date Recorded Patient Treasury Consultant Expl anation POLST 10/20/2021 [place] OR [facility] FOR LIFE-SUSTAINING [...] Power of Attor buddy? No Care Teams Refrigeration Houseman Relationship Specialty Start Date End Date Chris Asencio DO [address] [place] [address] PCP - General Family Medicine 01/07/18 documented as of this encounter
--- OUTSIDE RECORDS SUMMARY | 2024-09-21 22:40 | External Medical Summary | Summary of Care ---
Author Name Unknown Organization [facility] Address [address] [place] [address] Phone [phone] Care Team Providers Care Vascular Ultrasound Technician Name Role Phone Chris Asencio DO Primary Care Provider Reason for Visit * Reason Onset Date Comments Health Maintenance 07/06/2024 Encounter Details Date Type Department Care Team (Late st Contact Info) Description 07/06/2024 Telephone Family Practice [facility] [address] [place] [address] Chris Asencio DO [address] [place] [address] Health Maintenance Allergies Active Allergy Reactions Criticality [...] this encounter (statuses as of 07/08/2024) Medications Spacer/Aero-Holdin socorro Singh DEVIIndications:Mo derate persistent [...] E11.9 400 Strip 5 04/17/20 23 Active SETVITouch UltraSoft LancetsIndications :Type 2 diabetes mellitus with [...] 4 3:16 PM EDT 05/09/20 23 Active SETVIToJamplify Verio Flex System w/Device Kit USE 1 DEVICE DIRECTED EVERY EVENING. UP TO 4 TIMES A DAY TO CHECK BLOOD GLUCOSE E11.9 04/17/20 23 Active Dexcom G7 Pan Helper Device Use as directed. Active Dexcom [...] mouth 2 times a day. Active Calcitonin ([place]) 200 UNIT/ACT Nasal Solution Administer 1 [place] into one nostril in the morning. alternate [...] bedtime. 40 Capsule 04/14/20 24 Active Methscopolamine [place] 2.5 MG Oral TabletIndications: Irritable bowel syndrome [...] the skin once a week. Obtaining from NovoEco Dream Ventureisk PAP 025 Discontin ued(Refil l) NovoLOG FlexPen 100 UNIT/ML Subcutaneous Solution Pen-injector (insulin aspart) Inject under the skin three times a day with meals. 5 units before breakfast, 2 units with lunch and 2 units with supper + CF of 1:50 over 120 [when off ozempic] 4 units before breakfast [when taking ozempic] Obtaining from NovoEco Dream Ventureisk PAP 025 Discontin ued(Refil l) Tresiba FlexTouch 200 UNIT/ML Subcutaneous Solution Pen-injector (Insulin Degludec) Inject 16 Units under the skin in the morning. Obtaining from BPeSA PAP. 025 Discontin ued(Refil l) Hospital, Clinic, [...] Signed 06/04/2014 Pranav Sanchez MD [facility] Pharm[facility] [place] Spinal pain 06/04/2014 02/02/2017 Type 2 diabetes [...] mRNA, LNP-s, No Pre serve, 2-Dose Series ([employer]) 09/09/2020,08/19/2020 Covid-19, Mrna, Lnp-s, Pf, B ivalent, 30 Mcg, IM, 12 yrs and above ([employer]) 03/02/2024 Pneumococcal Conjugate Vacc, 13 Valent (Prevnar) [...] ( season) 2024 CKD PHOS USE SMARTSET 72227 09/16/2024 HbA1c 09/23/2024 GFR 09/23/2024 Diabetic Foot Exam 10/02/2024 Ov Labs August awv Care Gap Outreach Action Taken: Unable to reach and MyChart message sent Rings no vm documented in this encounter Plan of Treatment Upcoming Encounters Date Type Department Care Team (Late st Contact Info) Description 07/13/2024 10:00 AM EST Office Visit Hematology/Oncology [facility] [place] [address] [facility] [place] [phone] Henok Stauffer MD [address] [facility] [place] [address] 09/09/2024 11:00 AM EDT Office Visit Pharmacy, [facility] [address] [facility] [phone] [place], [facility] [address] [facility] [address] 11/24/2024 2:40 PM EDT Office Visit Nephrology, [facility] [address] [facility] [place] [address] Eric Day MD [address] [facility] [place] [address] 12/24/2024 10:00 AM EDT Office Visit Cardiology, [facility] [address] [facility] [place] [address] Sophy Sands PA-C [address] [place] [address] 03/29/2025 3:45 PM EST Office Visit Ophthalmology, [place] [address] [place] [address] Ernie Rivers DO [address] [place] [address] 04/15/2025 10:00 AM EST Office Visit Family Practice [facility] [address] [facility] [place] [address] Chris Asencio, DO [address] [place] [address] Scheduled Orders Name Type Priority Associated Diagnoses [...] 03/02/2024, 09/09/2020, 08/19/2020 CKD PHOS USE SMARTSET 58255 09/16/202408/26, 06/18/2023, 06/06/2023, Additional history exists GFR 09/23/2024 03/25/2024, 02/25, 01/06/2024, Additional history exists HbA1c 09/23/2024 03/25/2024, 08/26, 04/24/2023, Additional history exists Diabetic Foot Exam 10/02/2024 10/03/2023, 1 07/24/2019, 04/06/2019, Additional history exists Diabetic Eye Exam 03/05/2025 03/05/2024, , 03/05/2024, Additional history exists Mammogram 03/05/2025 03/05/2024, 07/2022, 02/26/2023, Additional history exists CKD HGB USE SMARTSET 43532 03/25/202503/25, 03/25/2024, 03/16/2024, Additional history exists Albumin/Creatinine [...] Documents on File Type Date Recorded Patient Traffic Control Signaler Expl bhargav MCGILL 10/20/2021 [place] [facility] [...] Power of Attor buddy? No Care Teams Vascular Ultrasound Technician Relationship Specialty Start Date End Date Chris Asencio DO [address] [place] [address] PCP - General Family Medicine 01/07/18 documented as of this encounter
--- OUTSIDE RECORDS SUMMARY | 2024-09-21 22:40 | External Medical Summary | Summary of Care ---
Author Name Unknown Organization [facility] Address [address] [place] [address] Phone [phone] Care Team Providers Care Patient Care Provider Name Role Phone Chris Asencio Primary Care Provider Reason for Visit * Reason Onset Date Comments Medication Discussion 07/07/2024 Ozempic an d insulin costs at local pharmacy Encounter Details Date Type Department Care Team (Late st Contact Info) Description 07/07/2024 Telephone Pharmacy, [facility] [address] [place] [address] Vickie Goldman, [facility] [address] [place] [address] Medication Discussion (Ozempic and insulin... Allergies Active Allergy Reactions Criticality Noted Date [...] as of this encounter (statuses as of 07/07/2024) Medications Spacer/Aero-Holdin g Chambers DEVIIndications:Mo derate persistent asthma without complication Use [...] 09/17/19 24 3:16 PM EDT 023 Active EnergenoTouch Verio Flex System w/Device Kit USE 1 DEVICE DIRECTED EVERY EVENING. UP TO 4 TIMES A DAY TO CHECK BLOOD GLUCOSE E11.9 023 Active Dexcom G7 Insulation Engineman Device Use as directed. Active Dexcom G7 [...] 2 times a day. Active Calcitonin ([place]) 200 UNIT/ACT Nasal Solution Administer 1 [place] into one nostril in the morning. alternate [...] AND BEFORE BEDTIME 180 Tablet 3 Active Furosemide 40 MG Oral Tablet (Lasix)Indications :Localized edema TAKE 1 TABLET BY MOUTH IN THE MORNING AND 1 TABLET BEFORE BEDTIME. FOR FLUID ACCUMULATION OR WEIGHT GAIN. 180 Tablet 11 Active Molnupiravir 200 MG Oral CapsuleIndications :Person under investigation for COVID-19,Pneumonia due to suspected gram-negative bacteria Take 4 Capsules by mouth in the morning and 4 Capsules before bedtime. 40 Capsule Active Methscopolamine [place] 2.5 MG Oral TabletIndications: Irritable bowel syndrome [...] DAY IN THE MORNING 90 Tablet 3 12/07/2 024 Active Premarin 0.625 MG/GM Vaginal Cream [...] AT BEDTIME. 135 Tablet 1 025 Active Ozempic (1 MG/DOSE) 4 MG/3ML Subcutaneous Solution Pen-injector (Semaglutide (1 MG/DOSE))Indicatio ns:Type 2 diabetes mellitus with hemoglobin A1c goal of less than 8.0% (HCC) Inject 1 mg under the skin once a week. 3 mL 025 Active NovoLOG FlexPen 100 UNIT/ML Subcutaneous Solution Pen-injector (insulin aspart)Indications :Type 2 diabetes mellitus with hemoglobin A1c goal of less than 8.0% (HCC) inject 5 units before breakfast, 2 units with lunch and 2 units with supper + CF of 1:50 over 200 15 mL 025 Active Insulin Glargine Solostar 100 UNIT/ML Subcutaneous Solution Pen-injector (Lantus SoloStar)Indicatio ns:Type 2 diabetes mellitus with hemoglobin A1c goal of less than 8.0% (HCC) Inject 20 Units under the skin daily. Replaces tresiba 15 mL 4 025 Active Ozempic (1 MG/DOSE) 4 MG/3ML Subcutaneous Solution Pen-injector (Semaglutide (1 MG/DOSE)) Inject 1 mg under the skin once a week. Obtaining from NovoNordisk PAP 2024 Discontinued(R efill) NovoLOG FlexPen 100 UNIT/ML Subcutaneous Solution Pen-injector (insulin aspart) Inject under the skin three times a day with meals. 5 units before breakfast, 2 units with lunch and 2 units with supper + CF of 1:50 over 120 [when off ozempic] 4 units before breakfast [when taking ozempic] Obtaining from NovoNordisk PAP 2024 Discontinued(R efill) Tresiba FlexTouch 200 UNIT/ML Subcutaneous Solution Pen-injector (Insulin Degludec) Inject 16 Units under the skin in the morning. Obtaining from NovoNordisk PAP. 2024 Discontinued(R efill) Tresiba FlexTouch 200 UNIT/ML Subcutaneous Solution Pen-injector (Insulin Degludec)Indicatio ns:Type 2 diabetes mellitus with hemoglobin A1c goal of less than 8.0% (HCC) Inject 20 Units under the skin in the morning. 9 mL 11 025 2024 Discontinued Hospital, Clinic, or Other Facility Administered Medication Ordered Dose Route Frequency Start Date End Date Status albuterol sulfate (PROVENTIL) (2.5 MG/3ML) 0.083% inhalation solution 2.5 mgIndications:Moderate persistent asthma without complication 2.5 mg NEBULIZER Q4H PRN 08/13/2018 Active documented as of this encounter (statuses as of 07/07/2024) Active Problems Patient Care Coordination No te [...] as of this encounter (statuses as of 07/07/2024) Resolved Problems Problem Noted Date Diagnosed Date [...] (06/04/2014): Signed 06/04/2014 Pranav Sanchez MD [facility] Pharm[facility] [place] Spinal pain 06/04/2014 02/02/2017 Type 2 diabetes [...] as of this encounter (statuses as of 07/07/2024) Immunizations Name Administration Dates Next Due COVID-19 mRNA, LNP-s, No Pre serve, 2-Dose Series ([employer]) 09/09/2020,08/19/2020 Covid-19, Mrna, Lnp-s, Pf, B ivalent, 30 Mcg, IM, 12 yrs and above ([employer]) 03/02/2024 Pneumococcal Conjugate Vacc, 13 Valent (Prevnar) [...] Miscellaneous Notes * Addendum Note - Vickie Goldman RPh - 07/07/2024 10:11 AM EST Addended by: VICKIE GOLDMAN on: 07/07/2024 10:11 AM Modules accepted: Orders * Telephone Encounter - Vickie Goldman RPh - 07/07/2024 9:43 AM EST Received remind me to send scripts to [facility] to see cost on her diabetic medications-- if unaffordable, plan to re-enroll in NovoNordisk PAP. MyG messaging with patient to inform of cost info. Vickie Goldman, PharmD, BCACP Clinical Pharmacist Medication Therapy Disease Management 07/07/2024, 9:55 AM documented in this encounter Plan of Treatment Upcoming Encounters Date Type Department Care Team (Late st Contact Info) Description 07/13/2024 10:00 AM EST Office Visit Hematology/Oncology [facility] [address] [facility] [place], [place] [phone] Henok Stauffer MD [address] [facility] [place] [address] 09/09/2024 11:00 AM EDT Office Visit Pharm[facility], [facility] [address] [facility] [phone] [address] 11/24/2024 2:40 PM EDT Office Visit Nephrology, [facility] [address] [facility] [place] [address] Eric Dya MD [address] [facility] [place] [address] 12/24/2024 10:00 AM EDT Office Visit Cardiology, [facility] [address] [facility] [place] [address] Sophy Sands PA-C 132 [facility] [place] [address] 03/29/2025 3:45 PM EST Office Visit Ophthalmology, [place] [address] [place] [address] Ernie Rivers DO [address] [place] [address] Scheduled Procedures Name Priority Associated Diagnoses Date/Ti [...] 03/02/2024, 09/09/2020, 08/19/2020 CKD PHOS USE SMARTSET 35903 09/16/202408/26, 06/18/2023, 06/06/2023, Additional history exists GFR 09/23/2024 03/25/2024, 02/25, 01/06/2024, Additional history exists HbA1c 09/23/2024 03/25/2024, 08/26, 04/24/2023, Additional history exists Diabetic Foot Exam 10/02/2024 10/03/2023, 1 07/24/2019, 04/06/2019, Additional history exists Diabetic Eye Exam 03/05/2025 03/05/2024, , 03/05/2024, Additional history exists Mammogram 03/05/2025 03/05/2024, 07/2022, 02/26/2023, Additional history exists CKD HGB USE SMARTSET 13011 03/25/202503/25, 03/25/2024, 03/16/2024, Additional history exists Albumin/Creatinine [...] Documents on File Type Date Recorded 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 No Care Teams Patient Care Provider Relationship Specialty Start Date End Date Chris Asencio DO [address] [place] [address] PCP - General Family Medicine 01/07/18 documented as of this encounter
--- OUTSIDE RECORDS SUMMARY | 2024-09-21 22:40 | External Medical Summary | Summary of Care ---
Author Name Unknown Organization [facility] Address [address] [place] [address] Phone [phone] Care Team Providers Care Director Of Mechanical Engineering Name Role Phone Chris Asencio Primary Care Provider Reason for Visit * Reason Onset Date Comments Medication Discussion 07/07/2024 Ozempic an d insulin costs at local pharmacy Encounter Details Date Type Department Care Team (Late st Contact Info) Description 07/07/2024 Telephone Pharmacy, [facility] [address] [place] [address] Vickie Goldman, [facility] [address] [place] [address] Medication Discussion (Ozempic and insulin... Allergies Active [...] 09/17/19 24 3:16 PM EDT 023 Active IndustriaplexTouch Verio Flex System w/Device Kit USE 1 DEVICE DIRECTED EVERY EVENING. UP TO 4 TIMES A DAY TO CHECK BLOOD GLUCOSE E11.9 023 Active Dexcom G7 Front Office Spec Device Use as directed. Active Dexcom G7 [...] mouth 2 times a day. Active Calcitonin ([place]) 200 UNIT/ACT Nasal Solution Administer 1 [place] into one nostril in the morning. alternate [...] Capsules before bedtime. 40 Capsule Active Methscopolamine [place] 2.5 MG Oral TabletIndications: Irritable bowel syndrome [...] once a week. 3 mL 025 Active Ozempic (1 MG/DOSE) 4 MG/3ML [...] before breakfast [when taking ozempic] Obtaining from [facility] PAP 2024 Discontinued(R efill) Tresiba FlexTouch 200 UNIT/ML Subcutaneous Solution Pen-injector (Insulin Degludec) Inject 16 Units under the skin in the morning. Obtaining from NovoNoOombaisk PAP. 2024 Discontinued(R efill) Tresiba FlexTouch 200 UNIT/ML Subcutaneous Solution Pen-injector (Insulin Degludec)Indicatio ns:Type 2 diabetes mellitus with hemoglobin A1c goal of less than 8.0% (HCC) Inject 20 Units under the skin in the morning. 9 mL 025 2024 Discontinued Ozempic (1 MG/DOSE) 4 MG/3ML Subcutaneous Solution Pen-injector (Semaglutide (1 MG/DOSE))Indicatio ns:Type 2 diabetes mellitus with hemoglobin A1c goal of less than 8.0% (HCC) Inject 1 mg under the skin once a week. 3 mL 025 2024 Discontinued(R efill) NovoLOG FlexPen 100 UNIT/ML Subcutaneous Solution Pen-injector (insulin aspart)Indications :Type 2 diabetes mellitus with hemoglobin A1c goal of less than 8.0% (HCC) inject 5 units before breakfast, 2 units with lunch and 2 units with supper + CF of 1:50 over 200 15 mL 025 2024 Discontinued(R efill) Insulin Glargine Solostar 100 UNIT/ML Subcutaneous Solution Pen-injector (Lantus SoloStar)Indicatio ns:Type 2 diabetes mellitus with hemoglobin A1c goal of less than 8.0% ([facility]) Inject 20 Units under the skin daily. [...] (06/04/2014): Signed 06/04/2014 Pranav Sanchez MD [facility] [place] Spinal pain 06/04/2014 02/02/2017 Type 2 diabetes [...] mRNA, LNP-s, No Pre serve, 2-Dose Series ([employer]) 09/09/2020,08/19/2020 Covid-19, Mrna, Lnp-s, Pf, B ivalent, 30 Mcg, IM, 12 yrs and above ([employer]) 03/02/2024 Pneumococcal Conjugate Vacc, 13 Valent (Prevnar) [...] No 12/20/2023 Does the household have a [facility] source of income? (Household - for [...] Miscellaneous Notes * Addendum Note - Vickie Goldman, [facility] - 07/07/2024 2:25 PM ESTAddended by: VICKIE GOLDMAN on: 07/07/2024 02:25 PM Modules accepted: Orders * Telephone Encounter - Vickie Goldman RP - 07/07/2024 2:24 PM EST Cost of insulins is reasonable for patient. She would like them filled at [facility]. Scripts sent. Vickie Goldman PharmD, [place] Clinical Pharmacist Medication Therapy Disease Management 07/07/2024, 2:25 PM * Addendum Note - Vickie Goldman RPh - 07/07/2024 10:11 AM EST Addended by: VICKIE GOLDMAN on: 07/07/2024 10:11 AM Modules accepted: Orders * Telephone Encounter - Vickie Goldman [facility] - 07/07/2024 9:43 AM EST Received remind me to send scripts to [facility] to see cost on her diabetic medications-- if unaffordable, plan to re-enroll in NovoNordisk PAP. MyG messaging with patient to inform of cost info. Vickie Goldman PharmD, [place] Clinical Pharmacist Medication Therapy Disease Management 07/07/2024, 9:55 AM documented in this encounter Plan of Treatment Upcoming Encounters Date Type Department Care Team (Late st Contact Info) Description 07/13/2024 10:00 AM EST Office Visit Hematology/Oncology [facility] [address] [place] [phone] Henok Stauffer MD [address] [place] [address] 09/09/2024 11:00 AM EDT [facility], [place] [facility] [address] [facility] [place] [phone] [place] [address] [address] 11/24/2024 2:40 PM EDT Office Visit Nephrology, [facility] [place] [address] Eric Day MD [address] [facility] [place] [address] 12/24/2024 10:00 AM EDT Office Visit Cardiology, [facility] [address] [place] [address] Sophy Sands PA-C 132 [place] [address] 03/29/2025 3:45 PM EST Office Visit Ophthalmology, [place] [address] [facility] [place] [address] Ernie Rivers DO [address] [facility] [place] [address] Scheduled Procedures Name Priority Associated Diagnoses Date/Ti [...] 03/02/2024, 09/09/2020, 08/19/2020 CKD PHOS USE SMARTSET 33944 09/16/202408/26, 06/18/2023, 06/06/2023, Additional history exists GFR 09/23/2024 03/25/2024, 02/25, 01/06/2024, Additional history exists HbA1c 09/23/2024 03/25/2024, 08/26, 04/24/2023, Additional history exists Diabetic Foot Exam 10/02/2024 10/03/2023, 1 07/24/2019, 04/06/2019, Additional history exists Diabetic Eye Exam 03/05/2025 03/05/2024, , 03/05/2024, Additional history exists Mammogram 03/05/2025 03/05/2024, 07/2022, 02/26/2023, Additional history exists CKD HGB USE SMARTSET 26479 03/25/202503/25, 03/25/2024, 03/16/2024, Additional history exists Albumin/Creatinine [...] on File Type Date Recorded 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 No Care Teams Director Of Mechanical Engineering Relationship Specialty Start Date End Date Chris Asencio DO [address] [place] [address] PCP - General Family Medicine 01/07/18 documented as of this encounter
--- OUTSIDE RECORDS SUMMARY | 2024-09-21 22:41 | External Medical Summary | Summary of Care ---
Author Name Unknown Organization [facility] Address [address] [place] [address] Phone [phone] Care Team Providers Care Senior Science Consultant Name Role Phone Chris Asencio Primary Care Provider Reason for Visit * Reason Onset Date Comments Medication Discussion 07/07/2024 Ozempic an d insulin costs at local pharmacy Encounter Details Date Type Department Care Team (Late st Contact Info) Description 07/07/2024 Telephone Pharmacy, [facility] [address] [place] [address] Vickie Goldman, [facility] [address] [place] [address] Medication Discussion (Ozempic and insulin... Allergies Active [...] 09/17/19 24 3:16 PM EDT 023 Active ThermogenicsTouch Verio Flex System w/Device Kit USE 1 DEVICE DIRECTED EVERY EVENING. UP TO 4 TIMES A DAY TO CHECK BLOOD GLUCOSE E11.9 023 Active Dexcom G7 Desizing Machine Offbearer Device Use as directed. Active Dexcom G7 [...] mouth 2 times a day. Active Calcitonin ([place]) 200 UNIT/ACT Nasal Solution Administer 1 [place] into one nostril in the morning. alternate [...] Capsules before bedtime. 40 Capsule Active Methscopolamine [place] 2.5 MG Oral TabletIndications: Irritable bowel syndrome [...] (06/04/2014): Signed 06/04/2014 Pranav Sanchez MD [facility] [place] Spinal pain 06/04/2014 02/02/2017 Type 2 diabetes [...] mRNA, LNP-s, No Pre serve, 2-Dose Series ([employer]) 09/09/2020,08/19/2020 Covid-19, Mrna, Lnp-s, Pf, B ivalent, 30 Mcg, IM, 12 yrs and above ([employer]) 03/02/2024 Pneumococcal Conjugate Vacc, 13 Valent (Prevnar) [...] Received remind me to send scripts to [facility] to see cost on her [...] 07/13/2024 10:00 AM EST Office Visit [facility] [address] [facility] [place], [place] [phone] Henok Stauffer MD [address] [facility] [place] [address] 09/09/2024 11:00 AM EDT Office Visit Pharmacy, [facility] [phone] [address] 11/24/2024 2:40 PM EDT Office Visit Nephrology, [facility] 200 [place] [address] Eric Day MD [address] [facility] [place] [address] 12/24/2024 10:00 AM EDT Office Visit Cardiology, [facility] 132 [facility] [place] [address] Sophy Sands PA-C 132 [facility] [place] [address] 03/29/2025 3:45 PM EST Office Visit Ophthalmology, [place] [address] [place] [address] Ernie Rivers DO [address] [place] [address] Scheduled Procedures Name Priority Associated Diagnoses Date/Ti [...] 03/02/2024, 09/09/2020, 08/19/2020 CKD PHOS USE SMARTSET 28641 09/16/202408/26, 06/18/2023, 06/06/2023, Additional history exists GFR 09/23/2024 03/25/2024, 02/25, 01/06/2024, Additional history exists HbA1c 09/23/2024 03/25/2024, 08/26, 04/24/2023, Additional history exists Diabetic Foot Exam 10/02/2024 10/03/2023, 1 07/24/2019, 04/06/2019, Additional history exists Diabetic Eye Exam 03/05/2025 03/05/2024, , 03/05/2024, Additional history exists Mammogram 03/05/2025 03/05/2024, 07/2022, 02/26/2023, Additional history exists CKD HGB USE SMARTSET 47686 03/25/202503/25, 03/25/2024, 03/16/2024, Additional history exists Albumin/Creatinine [...] Documents on File Type Date Recorded 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 FOR LIFE-SUSTAINING TREATMENT * [...] Power of Attor buddy? No Care Teams Senior Science Consultant Relationship Specialty Start Date End Date Chris Asencio DO [address] [place] [address] PCP - General Family Medicine 01/07/18 documented as of this encounter
--- OUTSIDE RECORDS SUMMARY | 2024-09-21 22:41 | External Medical Summary | Summary of Care ---
Author Name Unknown Organization [facility] Address [address] [place] [address] Phone [phone] Care Team Providers Care Cone Treater Name Role Phone Chris Asencio Primary Care Provider Encounter Details Date Type Department Care Team (Late st Contact Info) Description 06/15/2024 Population Health External Data Unspecified Department Allergies [...] as of this encounter (statuses as of 06/15/2024) Medications Spacer/Aero-Holding Chambers DEVIIndications:Mod erate persistent asthma [...] blood glucose E 11.9 400 Each 5 11/22/20 23 Active BD Pen Needle Mini U/F [...] 4 3:16 PM EDT 05/09/20 23 Active ChangeTipio Flex System w/Device Kit USE 1 DEVICE DIRECTED EVERY EVENING. UP TO 4 TIMES A DAY TO CHECK BLOOD GLUCOSE E11.9 04/17/20 23 Active Dexcom G7 Enamel Burner Device Use as directed. Act vlad Dexcom [...] mouth 2 times a day. Active Calcitonin ([place]) 200 UNIT/ACT Nasal Solution Administer 1 [place] into one nostril in the morning. alternate nostrils.. 3 mL 11 09/25/19 24 Active buPROPion HCl ER (SR) 100 MG Oral Tablet Extended Release 12 Hour (Wellbutrin SR) Take 1 Tablet by mouth in the morning. Active Ozempic (1 MG/DOSE) 4 MG/3ML Subcutaneous Solution Pen-injector (Semaglutide (1 MG/DOSE)) Inject 1 mg under the skin once a week. Obtaining from [employer] Active NovoLOG FlexPen 100 UNIT/ML Subcutaneous Solution Pen-injector (insulin aspart) Inject under the skin three times a day with meals. 5 units before breakfast, 2 units with lunch and 2 units with supper + CF of 1:50 over 120 [when off ozempic] 4 units before breakfast [when taking ozempic] Obtaining from [employer] Active Tresiba FlexTouch 200 UNIT/ML Subcutaneous Solution Pen-injector (Insulin Degludec) Inject 16 Units under the skin in the morning. Obtaining from [employer]. Active Pantoprazole Sodium 40 MG Oral Tablet [...] bedtime. 40 Capsule 04/14/20 24 Active Methscopolamine [place] 2.5 MG Oral TabletIndications:I rritable bowel syndrome [...] BEDTIME. 135 Tablet 1 06/15/19 25 Active Hospital, Clinic, or Other Facility Administered Medication Ordered Dose Route Frequency Start Date End Date Status albuterol sulfate (PROVENTIL) (2.5 MG/3ML) 0.083% inhalation solution 2.5 mgIndications:Moderate persistent asthma without complication 2.5 mg NEBULIZER Q4H PRN 08/13/2018 Active documented as of this encounter (statuses as of 06/15/2024) Active Problems Patient Care Coordination No te [...] as of this encounter (statuses as of 06/15/2024) Resolved Problems Problem Noted Date Diagnosed Date [...] Overview (06/04/2014): Signed 06/04/2014 Pranav Sanchez MD [facility] Pharmacy [place] Spinal pain 06/04/2014 02/02/2017 Type 2 diabetes [...] as of this encounter (statuses as of 06/15/2024) Immunizations Name Administration Dates Next Due COVID-19 mRNA, LNP-s, No Pre serve, 2-Dose Series ([employer]) 09/09/2020,08/19/2020 Covid-19, Mrna, Lnp-s, Pf, B ivalent, 30 Mcg, IM, 12 yrs and above ([employer]) 03/02/2024 Pneumococcal Conjugate Vacc, 13 Valent (Prevnar) [...] ages 0-17 years) Not on file 12/20/2023 Comments No Sex and Gender Information [...] 07/13/2024 10:00 AM EST Office Visit Hematology/Oncology [facility] [place] [address] [place] [phone] Henok Stauffer MD [address] [place] [address] 09/09/2024 11:00 AM EDT Office Visit Pharmacy, [address] [place] [phone] [address] 11/24/2024 2:40 PM EDT Office Visit Nephrology, [facility] [address] [place] [address] Eric Day MD [address] [place] [address] 03/29/2025 3:45 PM EST Office Visit Ophthalmology, [place] [phone] Ernie Rivers DO [address] [place] [address] Scheduled Procedures Name Priority Associated Diagnoses Date/Ti [...] 03/02/2024, 09/09/2020, 08/19/2020 CKD PHOS USE SMARTSET 39686 09/16/202408/26, 06/18/2023, 06/06/2023, Additional history exists GFR 09/23/2024 03/25/2024, 02/25, 01/06/2024, Additional history exists HbA1c 09/23/2024 03/25/2024, 08/26, 04/24/2023, Additional history exists Diabetic Foot Exam 10/02/2024 10/03/2023, 1 07/24/2019, 04/06/2019, Additional history exists Diabetic Eye Exam 03/05/2025 03/05/2024, , 03/05/2024, Additional history exists Mammogram 03/05/2025 03/05/2024, 07/2022, 02/26/2023, Additional history exists CKD HGB USE SMARTSET 33095 03/25/202503/25, 03/25/2024, 03/16/2024, Additional history exists Albumin/Creatinine [...] Documents on File Type Date Recorded 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 No Care Teams Cone Treater Relationship Specialty Start Date End Date Chris Asencio DO [address] [place] [address] PCP - General Family Medicine 01/07/18 documented as of this encounter
--- OUTSIDE RECORDS SUMMARY | 2024-09-21 22:41 | External Medical Summary | Summary of Care ---
Author Name Unknown Organization [facility] Address [address] [place] [address] Phone [phone] Care Team Providers Care Abstract Maker Name Role Phone Chris Asencio Primary Care Provider Reason for Visit * Reason Comments eRx-Medication Refill Encounter Details Date Type Department Care Team (Late st Contact Info) Description 06/14/2024 Refill Cardiology, [facility] [address] [place] [address] Alexia Parikh PA-C [address] [place] [address] PVC's (premature ventricular contractions) Allergies Active Allergy [...] as of this encounter (statuses as of 06/18/2024) Medications Spacer/Aero-Holdin socorro Singh DEVIIndications:Mo derate persistent [...] 09/17/19 24 3:16 PM EDT 023 Active Shoot ExtremeToBee[employer] Verio Flex System w/Device Kit USE 1 DEVICE DIRECTED EVERY EVENING. UP TO 4 TIMES A DAY TO CHECK BLOOD GLUCOSE E11.9 023 Active Dexcom G7 Wood Grinder Device Use as directed. Active Dexcom G7 Sensor Use as directed. Active Triamcinolone Acetonide 0.1 % External Ointment (Aristocort) Apply topically to affected area 2 times a day 80 g 5 10/18/19 24 12:34 PM EDT 024 Active Ferrous Gluconate 240 (27 Fe) MG [...] mouth 2 times a day. Active Calcitonin ([place]) 200 UNIT/ACT Nasal Solution Administer 1 [place] into one nostril in the morning. alternate nostrils.. 3 mL 11 Active buPROPion HCl ER (SR) 100 MG Oral Tablet Extended Release 12 Hour (Wellbutrin SR) Take 1 Tablet by mouth in the morning. Active Ozempic (1 MG/DOSE) 4 MG/3ML Subcutaneous Solution Pen-injector (Semaglutide (1 MG/DOSE)) Inject 1 mg under the skin once a week. Obtaining from [employer] Active NovoLOG FlexPen 100 UNIT/ML Subcutaneous Solution Pen-injector (insulin aspart) Inject under the skin three times a day with meals. 5 units before breakfast, 2 units with lunch and 2 units with supper + CF of 1:50 over 120 [when off ozempic] 4 units before breakfast [when taking ozempic] Obtaining from [employer] Active Tresiba FlexTouch 200 UNIT/ML Subcutaneous Solution Pen-injector (Insulin Degludec) Inject 16 Units under the skin in the morning. Obtaining from [employer]. Active Pantoprazole Sodium 40 MG Oral Tablet [...] before bedtime. 40 Capsule 024 Active Methscopolamine [place] 2.5 MG Oral TabletIndications: Irritable bowel syndrome [...] AT BEDTIME. 135 Tablet 1 025 Active Metoprolol Succinate ER 25 MG Oral Tablet Extended Release 24 Hour (toPROL XL)Indications:PVC 's (premature ventricular contractions) TAKE 1 TABlet BY MOUTH EVERY MORNING AND ONE-HALF TABlet AT BEDTIME. 135 Tablet 3 09/17/19 24 3:16 PM EDT 023 2024 Discontinued Hospital, Clinic, or Other Facility Administered Medication Ordered Dose Route Frequency Start Date End Date Status albuterol sulfate (PROVENTIL) (2.5 MG/3ML) 0.083% inhalation solution 2.5 mgIndications:Moderate persistent asthma without complication 2.5 mg NEBULIZER Q4H PRN 08/13/2018 Active documented as of this encounter (statuses as of 06/18/2024) Active Problems Patient Care Coordination No te [...] as of this encounter (statuses as of 06/18/2024) Resolved Problems Problem Noted Date Diagnosed Date [...] Overview (06/04/2014): Signed 06/04/2014 Pranav Sanchez MD [facility] Pharm[facility] [place] Spinal pain 06/04/2014 02/02/2017 Type 2 diabetes [...] as of this encounter (statuses as of 06/18/2024) Immunizations Name Administration Dates Next Due COVID-19 mRNA, LNP-s, No Pre serve, 2-Dose Series ([employer]) 09/09/2020,08/19/2020 Covid-19, Mrna, Lnp-s, Pf, B ivalent, 30 Mcg, IM, 12 yrs and above ([employer]) 03/02/2024 Pneumococcal Conjugate Vacc, 13 Valent (Prevnar) [...] No 12/20/2023 Does the household have a [facility] source of income? (Household - for ages [...] encounter Miscellaneous Notes * Telephone Encounter - Purvi Liriano - 06/18/2024 7:59 PM EST Received message from [facility] regarding patient needing an appointment. Patient was notified. Successfully contacted patient and provided [facility] message. * Telephone Encounter - Kenroy Saldivar [facility] - 06/15/2024 12:45 PM ESTSigned Prescriptions: Disp Refills Metoprolol Succinate ER 25 MG Oral Tablet *135 Ta*1 Sig: TAKE 1 TAB BY MOUTH EVERY MORNING AND ONE-HALF TAB AT BEDTIME. Authorizing Provider: ALEXIA PARIKH Ordering User: KENROY SALDIVAR * Telephone Encounter - Kenroy Saldivar RP - 06/15/2024 12:45 PM EST Please contact patient so that an appointment can be scheduled with her CARDIOLOGY provider. Refills authorized to hold patient over in the mean time. Last Visit: 08/09/2023 (in office), Return in about 1 year (around 08/08/2024) Next Visit: Visit date not found Thank you, Kenroy Saldivar, PharmD Clinical Pharmacist [facility] ([facility]) [phone] 06/15/2024, 12:45 PM * Telephone Encounter - Krzysztof Liriano - 06/14/2024 2:44 PM ESTPending Prescriptions: Disp Refills Metoprolol Succinate ER 25 MG Oral Tablet *135 Ta*3 Sig: TAKE 1 TAB BY MOUTH EVERY MORNING AND ONE-HALF TAB AT BEDTIME. * Telephone Encounter - Krzysztof Liriano two - 06/14/2024 2:42 PM EST Did you pend patient's preferred pharmacy and medication before forwarding?yes Pharmacy: [id number] [address] [place] [address] Pending Prescriptions: Disp Refills Metoprolol Succinate ER 25 MG Oral Tablet*135 Ta*3 Sig: TAKE 1 TAB BY MOUTH EVERY MORNING AND ONE-HALF TAB AT BEDTIME. Last Visit: 08/09/2023 (in office), Visit date not found (telemedicine) Next Visit: Visit date not found If no future appointments scheduled, and last appointment is greater than a year ago, please schedule patient for a follow-up appointment Last date the medication was ordered: 05/09/2023 Is this request for a controlled substance?No [...] AM EST Office Visit Hematology/Oncology [place] [address] [place] [phone] Henok Stauffer MD 200 [facility] [place] [address] 09/09/2024 11:00 AM EDT Office Visit Pharmacy, [facility] [address] [place] [phone] [facility] [address] [place] [address] 11/24/2024 2:40 PM EDT Office Visit Nephrology, [facility] [address] [facility] [place] [address] Eric Day MD [address] [facility] [place] [address] 12/24/2024 10:00 AM EDT Office Visit Cardiology, [facility] [address] [place] [address] Alexia Parikh PA-C 132 [place] [address] 03/29/2025 3:45 PM EST Office Visit Ophthalmology, [place] [address] [facility] [place] [address] Ernie Rivers DO 21 [facility] [place] [address] Scheduled Procedures Name Priority Associated Diagnoses Date/Ti [...] 03/02/2024, 09/09/2020, 08/19/2020 CKD PHOS USE SMARTSET 15679 09/16/202408/26, 06/18/2023, 06/06/2023, Additional history exists GFR 09/23/2024 03/25/2024, 02/25, 01/06/2024, Additional history exists HbA1c 09/23/2024 03/25/2024, 08/26, 04/24/2023, Additional history exists Diabetic Foot Exam 10/02/2024 10/03/2023, 1 07/24/2019, 04/06/2019, Additional history exists Diabetic Eye Exam 03/05/2025 03/05/2024, , 03/05/2024, Additional history exists Mammogram 03/05/2025 03/05/2024, 07/2022, 02/26/2023, Additional history exists CKD HGB USE SMARTSET 28403 03/25/202503/25, 03/25/2024, 03/16/2024, Additional history exists Albumin/Creatinine [...] with stage 3b chronic kidney disease (HCC) PVC's (premature ventricular contractions) Other premature beats documented in this encounter Advance Directives Documents on File Type Date Recorded Patient Hydrologic Modeler Expl bhargav MCGILL 10/20/2021 [place] OR [facility] FOR LIFE-SUSTAINING TREATMENT * [...] Power of Attor buddy? No Care Teams Abstract Maker Relationship Specialty Start Date End Date Chris Asencio DO [address] [place] [address] PCP - General Family Medicine 01/07/18 documented as of this encounter
--- OUTSIDE RECORDS SUMMARY | 2024-09-21 22:41 | External Medical Summary | Summary of Care ---
Author Name Unknown Organization [facility] Address [address] [place] [address] Phone [phone] Care Team Providers Care [employer] Founder Name Role Phone Chris Asencio Primary Care Provider Reason for Visit * Reason Onset Date Comments Medication Discussion 07/07/2024 Ozempic an d insulin costs at local pharmacy Encounter Details Date Type Department Care Team (Late st Contact Info) Description 07/07/2024 Telephone Pharmacy, [facility] [address] [place] [address] Vickie Goldman, [facility] [address] [place] [address] Medication Discussion (Ozempic and insulin... Allergies Active [...] 09/17/19 24 3:16 PM EDT 023 Active Motion DisplaysTouch Verio Flex System w/Device Kit USE 1 DEVICE DIRECTED EVERY EVENING. UP TO 4 TIMES A DAY TO CHECK BLOOD GLUCOSE E11.9 023 Active Dexcom G7 Primary Class Teacher Device Use as directed. Active Dexcom [...] mouth 2 times a day. Active Calcitonin ([place]) 200 UNIT/ACT Nasal Solution Administer 1 [place] into one nostril in the morning. alternate [...] Capsules before bedtime. 40 Capsule Active Methscopolamine [place] 2.5 MG Oral TabletIndications: Irritable bowel syndrome [...] Sanchez MD [facility] Pharm[facility] [place] Spinal pain 06/04/2014 02/02/2017 Type 2 diabetes [...] mRNA, LNP-s, No Pre serve, 2-Dose Series ([employer]) 09/09/2020,08/19/2020 Covid-19, Mrna, Lnp-s, Pf, B ivalent, 30 Mcg, IM, 12 yrs and above ([employer]) 03/02/2024 Pneumococcal Conjugate Vacc, 13 Valent (Prevnar) [...] Received remind me to send scripts to [facility] to see cost on her [...] 07/13/2024 10:00 AM EST Office Visit Hematology/Oncology [facility] [address] [facility] [place], [place] [phone] Henok Stauffer MD [address] [facility] [place] [address] 09/09/2024 11:00 AM EDT Office Visit [facility] [address] [facility] [phone] [place] [address] 11/24/2024 2:40 PM EDT Office Visit Nephrology, [facility] [address] [place] [address] Eric Day MD [address] [facility] [place] [address] 12/24/2024 10:00 AM EDT Office Visit Cardiology, [facility] [address] [facility] [place] [address] Sophy Sands PA-C [address] [facility] [place] [address] 03/29/2025 3:45 PM EST Office Visit Ophthalmology, [place] [address] [place] [address] Ernie Rivers DO [address] [place] [address] Scheduled Procedures Name Priority Associated Diagnoses Date/Ti [...] 03/02/2024, 09/09/2020, 08/19/2020 CKD PHOS USE SMARTSET 69785 09/16/202408/26, 06/18/2023, 06/06/2023, Additional history exists GFR 09/23/2024 03/25/2024, 02/25, 01/06/2024, Additional history exists HbA1c 09/23/2024 03/25/2024, 08/26, 04/24/2023, Additional history exists Diabetic Foot Exam 10/02/2024 10/03/2023, 1 07/24/2019, 04/06/2019, Additional history exists Diabetic Eye Exam 03/05/2025 03/05/2024, , 03/05/2024, Additional history exists Mammogram 03/05/2025 03/05/2024, 07/2022, 02/26/2023, Additional history exists CKD HGB USE SMARTSET 27172 03/25/202503/25, 03/25/2024, 03/16/2024, Additional history exists Albumin/Creatinine [...] on File Type Date Recorded Patient Manager Of Program Expl anation POLST 10/20/2021 [place] OR [facility] FOR [...] Power of Attor buddy? No Care Teams [employer] Founder Relationship Specialty Start Date End Date Chris Asencio DO [address] [place] [address] PCP - General Family Medicine 01/07/18 documented as of this encounter
--- OUTSIDE RECORDS SUMMARY | 2024-09-21 22:41 | External Medical Summary | Summary of Care ---
Author Name Unknown Organization [facility] Address [address] [place] [address] Phone [phone] Care Team Providers Care Currency Examiner Name Role Phone Chris Asencio DO Primary Care Provider Reason for Visit * Reason Onset Date Comments FYI 03/13/2024 Missed Call Encounter Details Date Type Department Care Team (Late st Contact Info) Description 03/13/2024 Telephone Access Center, [place] [address] [facility] *DO NOT REMOVE THIS DEPARTMENT* [place] [address] Services, Scheduling [address] [place] [address] FYI (Missed Call) Allergies Active Allergy Reactions Criticality Noted Date [...] as of this encounter (statuses as of 06/12/2024) Medications Spacer/Aero-Holdin socorro Singh DEVIIndications:Mo derate persistent asthma without complication Use with inhaler. 1 Device Active multivitamin (MVI) Tablet TAKE 1 TABLET BY MOUTH EVERY DAY FOR SUPPLEMENT 1 Active ONETOUCH DELICA LANCETS FINE MISC Use up to four times a day as directed DX E11.9 400 Each 3 019 Active Doxepin HCl 150 MG Oral Capsule Take 1 Capsule by mouth at bedtime. Active Systane Complete 0.6 % Ophthalmic Solution [...] 09/17/19 24 3:16 PM EDT 023 Active Metoprolol Succinate ER 25 MG Oral Tablet Extended Release 24 Hour (toPROL XL)Indications:PVC 's (premature ventricular contractions) TAKE 1 TABlet BY MOUTH EVERY MORNING AND ONE-HALF TABlet AT BEDTIME. 135 Tablet 3 09/17/19 24 3:16 PM EDT 023 Active [employer] Verio Flex System w/Device Kit USE 1 DEVICE DIRECTED EVERY EVENING. UP TO 4 TIMES A DAY TO CHECK BLOOD GLUCOSE E11.9 023 Active Dexcom G7 Home Care Chaplain Device Use as directed. Active Dexcom G7 Sensor Use as directed. Active Triamcinolone Acetonide 0.1 % External Ointment (Aristocort) Apply topically to affected area 2 times a day 80 g 5 10/18/19 24 12:34 PM EDT Active Ferrous Gluconate 240 (27 Fe) MG Oral Tablet (Ferate) TAKE BY MOUTH 1 TABLET DAILY . 90 Tablet 3 08/06/19 24 2:42 PM EDT 024 Active clonazePAM 0.5 MG Oral Tablet (KlonoPIN) Take 1 Tablet by mouth 3 times a day as needed. Active Calcium-Cholecalci ferol-Zinc 650-20-5.5 MG-MCG-MG Oral Tablet Chewable Take 1 Tablet by mouth in the morning and 1 Tablet before bedtime. Active Acetaminophen 500 MG Oral Tablet (Tylenol) Take 2 Tablets by mouth 2 times a day. Active Calcitonin ([place]) 200 UNIT/ACT Nasal Solution Administer 1 [place] into one nostril in the morning. alternate nostrils.. 3 mL 11 Active buPROPion HCl ER (SR) 100 MG Oral Tablet Extended Release 12 Hour (Wellbutrin SR) Take 1 Tablet by mouth in the morning. Active Ozempic (1 MG/DOSE) 4 MG/3ML Subcutaneous Solution Pen-injector (Semaglutide (1 MG/DOSE)) Inject 1 mg under the skin once a week. Obtaining from [employer] Active NovoLOG FlexPen 100 UNIT/ML Subcutaneous Solution Pen-injector (insulin aspart) Inject under the skin three times a day with meals. 5 units before breakfast, 2 units with lunch and 2 units with supper + CF of 1:50 over 120 [when off ozempic] 4 units before breakfast [when taking ozempic] Obtaining from [employer] Active Tresiba FlexTouch 200 UNIT/ML Subcutaneous Solution Pen-injector (Insulin Degludec) Inject 16 Units under the skin in the morning. Obtaining from [employer]. Active Pantoprazole Sodium 40 MG Oral Tablet Delayed Release (Protonix)Indicati ons:Gastroesophage al reflux disease with esophagitis without hemorrhage TAKE 1 TABLET IN THE MORNING AND BEFORE BEDTIME 180 Tablet 3 Active Furosemide 40 MG Oral Tablet (Lasix)Indications :Localized edema TAKE 1 TABLET BY MOUTH IN THE MORNING AND 1 TABLET BEFORE BEDTIME. FOR FLUID ACCUMULATION OR WEIGHT GAIN. 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 Do this 3 evenings per week 30 g 5 07/13/19 24 7:57 AM EST 023 2023 Discontinued Famotidine 40 MG Oral Tablet (Pepcid)Indication s:Gastroesophageal reflux disease with esophagitis without hemorrhage Take 1 Tablet by mouth in the morning. 90 Tablet 3 09/05/19 24 6:32 AM EDT 023 2023 Discontinued Methscopolamine [place] 2.5 MG Oral TabletIndications: Irritable bowel syndrome with diarrhea TAKE 1 TAB UP TO 3 TIMES DAILY NEEDED FOR ABDOMINAL CRAMPS & DIARRHEA, 270 Tablet 1 10/28/19 24 5:56 PM EDT 023 2023 Discontinued Montelukast Sodium 10 MG Oral Tablet (Singulair)Indicat ions:Moderate persistent asthma without complication Take 1 Tablet by mouth in the morning. 90 Tablet 3 09/17/19 24 3:16 PM EDT 023 2023 Discontinued Pramipexole Dihydrochloride 1 MG Oral Tablet (Mirapex)Indicatio ns:Right knee pain, unspecified chronicity Take 1 Tablet by mouth at bedtime. 90 Tablet 3 09/04/19 24 5:45 PM EDT 023 2023 Discontinued Diclofenac Sodium 1 % External Gel (Voltaren)Indicati ons:Right knee pain, unspecified chronicity PLACE 4 GRAMS TOPICALLY ON THE SKIN TWICE DAILY DIRECTED 300 g 4 09/19/19 24 2:06 PM EDT 024 2024 Discontinued(R efill) Diphenoxylate-Atro pine 2.5-0.025 MG Oral Tablet (Lomotil)Indicatio ns:Irritable bowel syndrome with diarrhea TAKE 2 TABLETS BY MOUTH EVERY 6 HOURS NEEDED FOR DIARRHEA. 30 Tablet 11 024 2024 Discontinued(R efill) Hospital, Clinic, or Other Facility Administered Medication Ordered Dose Route Frequency Start Date End Date Status albuterol sulfate (PROVENTIL) (2.5 MG/3ML) 0.083% inhalation solution 2.5 mgIndications:Moderate persistent asthma without complication 2.5 mg NEBULIZER Q4H PRN 08/13/2018 Active documented as of this encounter (statuses as of 06/12/2024) Active Problems Patient Care Coordination No te [...] as of this encounter (statuses as of 06/12/2024) Resolved Problems Problem Noted Date Diagnosed Date [...] Overview (06/04/2014): Signed 06/04/2014 Pranav Sanchez MD [facility] Pharmacy [place] Spinal pain 06/04/2014 02/02/2017 Type 2 diabetes [...] as of this encounter (statuses as of 06/12/2024) Immunizations Name Administration Dates Next Due COVID-19 mRNA, LNP-s, No Pre serve, 2-Dose Series ([employer]) 09/09/2020,08/19/2020 Covid-19, Mrna, Lnp-s, Pf, B ivalent, 30 Mcg, IM, 12 yrs and above ([employer]) 03/02/2024 Pneumococcal Conjugate Vacc, 13 Valent (Prevnar) [...] No 12/20/2023 Does the household have a [facility] source of income? (Household - for [...] encounter Miscellaneous Notes * Telephone Encounter - Iris Martinez OSA - 03/13/2024 3:40 PM EDT Pt called stating that she missed a call while on a video Visit w/ her pcp office. Please reach outto pt if needed. documented in this encounter Plan of Treatment Upcoming Encounters Date Type Department Care Team (Late st Contact Info) Description 07/13/2024 10:00 AM EST Office Visit Hematology/Oncology [place], [place] [address] [place] [place] [phone] Henok Stauffer MD [address] [facility] [place], [place] [address] 09/09/2024 11:00 AM EDT Office Visit Pharmacy, [facility] [address] [place] [phone] [facility] [address] [place] [address] 11/24/2024 2:40 PM EDT Office Visit Nephrology, [facility] [address] [facility] [place], [place] [address] Eric Day MD [address] [facility] [place] [address] 03/29/2025 3:45 PM EST Office Visit Ophthalmology, [place] [address] [place] [address] Ernie Rivers DO [address] [place] [phone] Scheduled Procedures Name Priority Associated Diagnoses Date/Ti [...] 03/02/2024, 09/09/2020, 08/19/2020 CKD PHOS USE SMARTSET 02210 09/16/202408/26, 06/18/2023, 06/06/2023, Additional history exists GFR 09/23/2024 03/25/2024, 02/25, 01/06/2024, Additional history exists HbA1c 09/23/2024 03/25/2024, 08/26, 04/24/2023, Additional history exists Diabetic Foot Exam 10/02/2024 10/03/2023, 1 07/24/2019, 04/06/2019, Additional history exists Diabetic Eye Exam 03/05/2025 03/05/2024, , 03/05/2024, Additional history exists Mammogram 03/05/2025 03/05/2024, 07/2022, 02/26/2023, Additional history exists CKD HGB USE SMARTSET 49785 03/25/202503/25, 03/25/2024, 03/16/2024, Additional history exists Albumin/Creatinine [...] Not on filedocumented as of this encounter Additional Health Concerns Infection Onset Date Last Indicated Resolved Time Gastrointestinal Rule-Out 03/16/2024 03/16/2024 9:52 AM EDT C. difficile Rule-Out 03/16/2024 03/16/20242023 11:50 PM EDT documented as of this encounter Advance Directives Documents on File Type Date Recorded Patient Interior Mechanic Expl anation POLST 10/20/2021 [place] OR [facility] FOR [...] Power of Attor buddy? No Care Teams Currency Examiner Relationship Specialty Start Date End Date Chris Asencio DO [address] [place] [address] PCP - General Family Medicine 01/07/18 documented as of this encounter
--- OUTSIDE RECORDS SUMMARY | 2024-09-21 22:41 | External Medical Summary | Summary of Care ---
Author Name Unknown Organization [facility] Address [address] [place] [address] Phone [phone] Care Team Providers Care Human Resources Manager Name Role Phone Chris Asencio Primary Care Provider Encounter Details Date Type Department Care Team (Late st Contact Info) Description 06/09/2024 Population Health External Data Unspecified Department Allergies [...] as of this encounter (statuses as of 06/10/2024) Medications Spacer/Aero-Holding Chambers DEVIIndications:Mod erate persistent asthma [...] 4 3:16 PM EDT 05/09/20 23 Active Metoprolol Succinate ER 25 MG Oral Tablet Extended Release 24 Hour (toPROL XL)Indications:PVC' s (premature ventricular contractions) TAKE 1 TABlet BY MOUTH EVERY MORNING AND ONE-HALF TABlet AT BEDTIME. 135 Tablet 3 4 3:16 PM EDT 05/09/20 23 Active [employer] Flex System w/Device Kit USE 1 DEVICE DIRECTED EVERY EVENING. UP TO 4 TIMES A DAY TO CHECK BLOOD GLUCOSE E11.9 04/17/20 23 Active Dexcom G7 Manager Field Services Device Use as directed. Act vlad Dexcom [...] mouth 2 times a day. Active Calcitonin ([place]) 200 UNIT/ACT Nasal Solution Administer 1 [place] into one nostril in the morning. alternate nostrils.. 3 mL 11 09/25/19 24 Active buPROPion HCl ER (SR) 100 MG Oral Tablet Extended Release 12 Hour (Wellbutrin SR) Take 1 Tablet by mouth in the morning. Active Ozempic (1 MG/DOSE) 4 MG/3ML Subcutaneous Solution Pen-injector (Semaglutide (1 MG/DOSE)) Inject 1 mg under the skin once a week. Obtaining from [employer] Active NovoLOG FlexPen 100 UNIT/ML Subcutaneous Solution Pen-injector (insulin aspart) Inject under the skin three times a day with meals. 5 units before breakfast, 2 units with lunch and 2 units with supper + CF of 1:50 over 120 [when off ozempic] 4 units before breakfast [when taking ozempic] Obtaining from [employer] Active Tresiba FlexTouch 200 UNIT/ML Subcutaneous Solution Pen-injector (Insulin Degludec) Inject 16 Units under the skin in the morning. Obtaining from [employer]. Active Pantoprazole Sodium 40 MG Oral Tablet [...] bedtime. 40 Capsule 04/14/20 24 Active Methscopolamine [place] 2.5 MG Oral TabletIndications:I rritable bowel syndrome [...] DIRECTED 300 g 4 06/02/19 25 Active Hospital, Clinic, or Other Facility Administered Medication Ordered Dose Route Frequency Start Date End Date Status albuterol sulfate (PROVENTIL) (2.5 MG/3ML) 0.083% inhalation solution 2.5 mgIndications:Moderate persistent asthma without complication 2.5 mg NEBULIZER Q4H PRN 08/13/2018 Active documented as of this encounter (statuses as of 06/10/2024) Active Problems Patient Care Coordination No te [...] as of this encounter (statuses as of 06/10/2024) Resolved Problems Problem Noted Date Diagnosed Date [...] Pranav Sanchez MD [facility] Pharmacy [place] Spinal pain 06/04/2014 02/02/2017 Type 2 [...] as of this encounter (statuses as of 06/10/2024) Immunizations Name Administration Dates Next Due COVID-19 mRNA, LNP-s, No Pre serve, 2-Dose Series ([employer]) 09/09/2020,08/19/2020 Covid-19, Mrna, Lnp-s, Pf, B ivalent, 30 Mcg, IM, 12 yrs and above ([employer]) 03/02/2024 Pneumococcal Conjugate Vacc, 13 Valent (Prevnar) [...] 10:00 AM EST Office Visit Hematology/Oncology [employer] [address] [place] [phone] Henok Stauffer MD [address] [place] [address] 09/09/2024 11:00 AM EDT Office Visit Pharmacy, [address] [phone] [facility] [address] [place] [address] 11/24/2024 2:40 PM EDT Office Visit Nephrology, [place] [address] [place] [address] Eric Day MD [address] [place] [address] 03/29/2025 3:45 PM EST Office Visit Ophthalmology, [place] [address] [place] [address] Ernie Rivers DO [address] [place] [address] Scheduled Procedures Name Priority Associated Diagnoses Date/Ti [...] 03/02/2024, 09/09/2020, 08/19/2020 CKD PHOS USE SMARTSET 97731 09/16/202408/26, 06/18/2023, 06/06/2023, Additional history exists GFR 09/23/2024 03/25/2024, 02/25, 01/06/2024, Additional history exists HbA1c 09/23/2024 03/25/2024, 08/26, 04/24/2023, Additional history exists Diabetic Foot Exam 10/02/2024 10/03/2023, 1 07/24/2019, 04/06/2019, Additional history exists Diabetic Eye Exam 03/05/2025 03/05/2024, , 03/05/2024, Additional history exists Mammogram 03/05/2025 03/05/2024, 07/2022, 02/26/2023, Additional history exists CKD HGB USE SMARTSET 21476 03/25/202503/25, 03/25/2024, 03/16/2024, Additional history exists Albumin/Creatinine [...] Documents on File Type Date Recorded Patient Medical Educator Expl anation POLST 10/20/2021 [place] OR [facility] FOR LIFE-SUSTAINING [...] Power of Attor buddy? No Care Teams Human Resources Manager Relationship Specialty Start Date End Date Chris Asencio DO [address] [place] [address] PCP - General Family Medicine 01/07/18 documented as of this encounter
--- OUTSIDE RECORDS SUMMARY | 2024-09-21 22:41 | External Medical Summary | Summary of Care ---
Author Name Unknown Organization [facility] Address [address] [place] [address] Phone [phone] Care Team Providers Care Undercoat Sprayer Name Role Phone Chris Asencio DO Primary Care Provider Reason for Visit * Reason Onset Date Comments Health Maintenance 07/06/2024 Encounter Details Date Type Department Care Team (Late st Contact Info) Description 07/06/2024 Telephone Family Practice [facility] [address] [place] [address] Chris Asencio DO [address] [place] [address] Health Maintenance Allergies Active Allergy Reactions Criticality [...] as of this encounter (statuses as of 07/06/2024) Medications Spacer/Aero-Holding Chambers DEVIIndications:Mod erate persistent asthma [...] E11.9 400 Strip 5 04/17/20 23 Active [employer] UltraSoft LancetsIndications: Type 2 diabetes mellitus with [...] 4 3:16 PM EDT 05/09/20 23 Active [employer] Verio Flex System w/Device Kit USE 1 DEVICE DIRECTED EVERY EVENING. UP TO 4 TIMES A DAY TO CHECK BLOOD GLUCOSE E11.9 04/17/20 23 Active Dexcom G7 Bight Maker Device Use as directed. Act vlad Dexcom [...] mouth 2 times a day. Active Calcitonin ([place]) 200 UNIT/ACT Nasal Solution Administer 1 [place] into one nostril in the morning. alternate nostrils.. 3 mL 09/25/19 24 Active buPROPion HCl ER (SR) 100 MG Oral Tablet Extended Release 12 Hour (Wellbutrin SR) Take 1 Tablet by mouth in the morning. Active Ozempic (1 MG/DOSE) 4 MG/3ML Subcutaneous Solution Pen-injector (Semaglutide (1 MG/DOSE)) Inject 1 mg under the skin once a week. Obtaining from [employer] Active NovoLOG FlexPen 100 UNIT/ML Subcutaneous Solution Pen-injector (insulin aspart) Inject under the skin three times a day with meals. 5 units before breakfast, 2 units with lunch and 2 units with supper + CF of 1:50 over 120 [when off ozempic] 4 units before breakfast [when taking ozempic] Obtaining from [employer] Active Tresiba FlexTouch 200 UNIT/ML Subcutaneous Solution Pen-injector (Insulin Degludec) Inject 16 Units under the skin in the morning. Obtaining from [employer]. Active Pantoprazole Sodium 40 MG Oral Tablet [...] bedtime. 40 Capsule 04/14/20 24 Active Methscopolamine [place] 2.5 MG Oral TabletIndications:I rritable bowel syndrome [...] as of this encounter (statuses as of 07/06/2024) Active Problems Patient Care Coordination No te [...] as of this encounter (statuses as of 07/06/2024) Resolved Problems Problem Noted Date Diagnosed Date [...] Pranav Sanchez MD [facility] Pharmacy [place] Spinal pain 06/04/2014 02/02/2017 Type 2 diabetes [...] as of this encounter (statuses as of 07/06/2024) Immunizations Name Administration Dates Next Due COVID-19 mRNA, LNP-s, No Pre serve, 2-Dose Series ([employer]) 09/09/2020,08/19/2020 Covid-19, Mrna, Lnp-s, Pf, B ivalent, 30 Mcg, IM, 12 yrs and above ([employer]) 03/02/2024 Pneumococcal Conjugate Vacc, 13 Valent (Prevnar) [...] encounter Miscellaneous Notes * Telephone Encounter - Carolynn Marie LPN - 07/06/2024 1:47 PM EST Care [...] ( season) 2024 CKD PHOS USE SMARTSET 00903 09/16/2024 HbA1c 09/23/2024 GFR 09/23/2024 Diabetic Foot Exam 10/02/2024 [facility] [place] Outreach Action Taken: Unable to reach and [place] message sent Rings no vm documented in this encounter Plan of Treatment Upcoming Encounters Date Type Department Care Team (Late st Contact Info) Description 07/13/2024 10:00 AM EST Office Visit Hematology/Oncology [place] [address] [facility] [place] [phone] Henok Stauffer MD [address] [facility] [place] [address] 09/09/2024 11:00 AM EDT Office [place], [place] [facility] [place] [phone] [facility] [address] [place] [address] [place] [address] 11/24/2024 2:40 PM EDT Office Visit Nephrology, [facility] [address] [facility] [place] [address] Eric Day MD [address] [facility] [place] [address] 12/24/2024 10:00 AM EDT Office Visit Cardiology, [facility] [address] [place] [address] Sophy Sands PA-C [address] [place] [address] 03/29/2025 3:45 PM EST Office Visit Ophthalmology, [place] [address] [place] [address] Ernie Rivers DO [address] [place] [address] Scheduled Procedures Name Priority Associated Diagnoses Date/Ti [...] 03/02/2024, 09/09/2020, 08/19/2020 CKD PHOS USE SMARTSET 96035 09/16/202408/26, 06/18/2023, 06/06/2023, Additional history exists GFR 09/23/2024 03/25/2024, 02/25, 01/06/2024, Additional history exists HbA1c 09/23/2024 03/25/2024, 08/26, 04/24/2023, Additional history exists Diabetic Foot Exam 10/02/2024 10/03/2023, 1 07/24/2019, 04/06/2019, Additional history exists Diabetic Eye Exam 03/05/2025 03/05/2024, , 03/05/2024, Additional history exists Mammogram 03/05/2025 03/05/2024, 07/2022, 02/26/2023, Additional history exists CKD HGB USE SMARTSET 22332 03/25/202503/25, 03/25/2024, 03/16/2024, Additional history exists Albumin/Creatinine [...] Documents on File Type Date Recorded Patient Public Improvement Inspector Expl darwinion ARTEM 10/20/[address] [place] [address] [facility] FOR LIFE-SUSTAINING TREATMENT * Full Code [...] Power of Attor buddy? No Care Teams Undercoat Sprayer Relationship Specialty Start Date End Date Chris Asencio DO [address] [place] [address] PCP - General Family Medicine 01/07/18 documented as of this encounter
--- OUTSIDE RECORDS SUMMARY | 2024-09-21 22:42 | External Medical Summary | Summary of Care ---
Author Name Unknown Organization [facility] Address [address] [place] [address] Phone [phone] Care Team Providers Care Signaling Design Engineer Name Role Phone Jessica Asencio DO Primary Care Provider Reason for Visit * Reason Comments eRx-Medication Refill Encounter Details Date Type Department Care Team (Late st Contact Info) Description 05/15/2024 Refill Family Practice [facility] [address] [facility] [place] [address] Jessica Asencio DO [address] [facility] [place] [address] Moderate persistent asthma without complication; Gastroesophageal reflux disease with esophagitis without hemorrhage Allergies Active Allergy Reactions Criticality Noted Date [...] as of this encounter (statuses as of 05/18/2024) Medications Spacer/Aero-Holdin g Francisco DEVIIndications:Mo derate persistent asthma without complication Use [...] BLOOD GLUCOSE E11.9 023 Active Dexcom G7 Patient Coordinator Front Desk Device Use as directed. Active Dexcom G7 [...] by mouth 2 times a day. Active Diclofenac Sodium 1 % External Gel (Voltaren)Indicati ons:Right knee pain, unspecified chronicity PLACE 4 GRAMS TOPICALLY ON THE SKIN TWICE DAILY DIRECTED 300 g 4 09/19/19 24 2:06 PM EDT 024 Active Calcitonin (Winger) 200 UNIT/ACT Nasal Solution Administer 1 [place] into one nostril in the morning. alternate nostrils.. 3 mL Active buPROPion HCl ER (SR) 100 MG Oral Tablet Extended Release 12 Hour (Wellbutrin SR) Take 1 Tablet by mouth in the morning. Active Diphenoxylate-Atro pine 2.5-0.025 MG Oral Tablet (Lomotil)Indicatio ns:Irritable bowel syndrome with diarrhea TAKE 2 TABLETS BY MOUTH EVERY 6 HOURS NEEDED FOR DIARRHEA. 30 Tablet 11 Active Ozempic (1 MG/DOSE) 4 MG/3ML Subcutaneous Solution Pen-injector (Semaglutide (1 MG/DOSE)) Inject 1 mg under the skin once a week. Obtaining from [employer] PAP Active NovoLOG FlexPen 100 UNIT/ML Subcutaneous Solution Pen-injector (insulin aspart) Inject under the skin three times a day with meals. 5 units before breakfast, 2 units with lunch and 2 units with supper + CF of 1:50 over 120 [when off ozempic] 4 units before breakfast [when taking ozempic] Obtaining from [employer] Active Tresiba FlexTouch 200 UNIT/ML Subcutaneous Solution Pen-injector (Insulin Degludec) Inject 16 Units under the skin in the morning. Obtaining from [employer]. Active Pantoprazole Sodium 40 MG Oral Tablet Delayed Release (Protonix)Indicati ons:Gastroesophage al reflux disease with esophagitis without hemorrhage TAKE 1 TABLET IN THE MORNING AND BEFORE BEDTIME 180 Tablet 3 024 Active Furosemide 40 MG Oral Tablet (Lasix)Indications :Localized edema TAKE 1 TABLET BY MOUTH IN THE MORNING AND 1 TABLET BEFORE BEDTIME. FOR FLUID ACCUMULATION OR WEIGHT GAIN. 180 Tablet 11 024 Active Molnupiravir 200 MG Oral CapsuleIndications :Person under investigation for COVID-19,Pneumonia due to suspected gram-negative bacteria Take 4 Capsules by mouth in the morning and 4 Capsules before bedtime. 40 Capsule 024 Active Methscopolamine Oneco 2.5 MG Oral TabletIndications: Irritable bowel syndrome [...] THE MORNING 90 Tablet 3 024 Active Famotidine 40 MG Oral Tablet (Pepcid)Indication s:Gastroesophageal reflux disease with esophagitis without hemorrhage Take 1 Tablet by mouth in the morning. 90 Tablet 3 09/05/19 24 6:32 AM EDT 023 2023 Discontinued Montelukast Sodium 10 MG Oral Tablet (Singulair)Indicat ions:Moderate persistent asthma without complication Take 1 Tablet by mouth in the morning. 90 Tablet 3 09/17/19 24 3:16 PM EDT 023 2023 Discontinued Hospital, Clinic, or Other Facility Administered Medication Ordered Dose Route Frequency Start Date End Date Status albuterol sulfate (PROVENTIL) (2.5 MG/3ML) 0.083% inhalation solution 2.5 mgIndications:Moderate persistent asthma without complication 2.5 mg NEBULIZER Q4H PRN 08/13/2018 Active documented as of this encounter (statuses as of 05/18/2024) Active Problems Patient Care Coordination No te [...] as of this encounter (statuses as of 05/18/2024) Resolved Problems Problem Noted Date Diagnosed Date [...] Sanchez MD [facility] Pharmacy [place] Spinal pain 06/04/2014 02/02/2017 Type 2 [...] as of this encounter (statuses as of 05/18/2024) Immunizations Name Administration Dates Next Due COVID-19 mRNA, LNP-s, No Pre serve, 2-Dose Series ([employer]) 09/09/2020,08/19/2020 Covid-19, Mrna, Lnp-s, Pf, B [...] encounter Miscellaneous Notes * Telephone Encounter - Gallo Alberto, [facility] - 05/18/2024 4:28 AM ESTSigned Prescriptions: Disp Refills Montelukast Sodium 10 MG Oral Tablet (Sing*90 Tab*3 Sig: TAKE 1 TABLET BY MOUTH EVERY DAYAuthorizing Provider: JESSICA ASENCIO User: GALLO ALBERTO Famotidine 40 MG Oral Tablet (Pepcid) 90 Tab*3 Sig: TAKE 1 TABLET BY MOUTH EVERY DAY IN THE MORNINGAuthorizing Provider: JESSICA ASENCIO User: GALLO ALBERTO documented in this encounter Plan of Treatment Upcoming Encounters Date Type Department Care Team (Late st Contact Info) Description 05/25/2024 8:00 AM EST Office Visit Hematology/Oncology [facility] [place] [address] [place] [phone] Henok Stauffer MD [address] [place] [address] 09/09/2024 11:00 AM EDT Office Visit Pharmacy, [facility] [address] [place] [address] [address] 11/24/2024 2:40 PM EDT Office Visit Nephrology, [facility] [address] [place], [place] [address] Eric Day MD [address] [place], [place] [address] 03/29/2025 3:45 PM EST Office Visit Ophthalmology, [place] [address] [place] [phone] Ernie Rivers DO [address] [place] [phone] Scheduled Procedures Name Priority Associated Diagnoses Date/Ti [...] 03/02/2024, 09/09/2020, 08/19/2020 CKD PHOS USE SMARTSET 30497 09/16/202408/26, 06/18/2023, 06/06/2023, Additional history exists GFR 09/23/2024 03/25/2024, 02/25, 01/06/2024, Additional history exists HbA1c 09/23/2024 03/25/2024, 08/26, 04/24/2023, Additional history exists Diabetic Foot Exam 10/02/2024 10/03/2023, 1 07/24/2019, 04/06/2019, Additional history exists Diabetic Eye Exam 03/05/2025 03/05/2024, , 03/05/2024, Additional history exists Mammogram 03/05/2025 03/05/2024, 07/2022, 02/26/2023, Additional history exists CKD HGB USE SMARTSET 03850 03/25/202503/25, 03/25/2024, 03/16/2024, Additional history exists Albumin/Creatinine Ratio 03/27/2025 024, 01/24/2023, 09/06/2022, Additional history exists Colonoscopy 03/17/2026 03/17/2021, 02/25, 12/07/2014, Additional history exists Colorectal Cancer Screening 03/17/2026 DTap/Tdap Vaccines (3 - Td or Tdap) 04/16/2026 04/16/2016, 04/12/2006 Lipid Panel 03/25/2029 03/25/2024, 12/27, 09/06/2022, Additional history exists DXA Scan 08/22/2031 08/21/2022, 07/26, 06/01/2019, Additional history exists Pneumococcal Vaccine: 65+ Years Completed 04/04/2019, 11/04/2018, [...] with stage 3b chronic kidney disease (HCC) Moderate persistent asthma without complication Unspecified asthma Gastroesophageal reflux disease with esophagitis without hemorrhage documented in this encounter Advance Directives Documents on File Type Date Recorded Patient Hydrate Control Tender Expl anation POLST 10/20/2021 [place] OR [facility] FOR LIFE-SUSTAINING [...] Power of Attor buddy? No Care Teams Signaling Design Engineer Relationship Specialty Start Date End Date Jessica Asencio DO [address] [place] [address] PCP - General Family Medicine 01/07/18 documented as of this encounter
--- OUTSIDE RECORDS SUMMARY | 2024-09-21 22:42 | External Medical Summary | Summary of Care ---
Author Name Unknown Organization [facility] Address [address] [place] [address] Phone [phone] Care Team Providers Care Certified Medical Aide Name Role Phone Chris Asencio DO Primary Care Provider Reason for Visit * Reason Onset Date Comments Advice 05/15/2024 Encounter Details Date Type Department Care Team (Late st Contact Info) Description 05/15/2024 Telephone Family Practice [facility] [address] [place] [address] Chris Asencio DO [address] [place] [address] Advice Allergies Active Allergy Reactions Criticality Noted [...] as of this encounter (statuses as of 05/15/2024) Medications Spacer/Aero-Holding Chambers DEVIIndications:Mod erate persistent asthma [...] 4 5:45 PM EDT 05/09/20 23 Active Famotidine 40 MG Oral Tablet (Pepcid)Indications :Gastroesophageal reflux disease with esophagitis without hemorrhage Take 1 Tablet by mouth in the morning. 90 Tablet 3 4 6:32 AM EDT 05/09/20 Active Fluticasone Propionate 50 MCG/ACT [...] 4 3:16 PM EDT 05/09/20 23 Active Montelukast Sodium 10 MG Oral Tablet (Singulair)Indicati ons:Moderate persistent asthma without complication Take 1 Tablet by mouth in the morning. 90 Tablet 3 4 3:16 PM EDT 05/09/20 23 Active [employer]van Flex System w/Device Kit USE 1 DEVICE DIRECTED EVERY EVENING. UP TO 4 TIMES A DAY TO CHECK BLOOD GLUCOSE E11.9 04/17/20 23 Active Dexcom G7 Video News Editor Device Use as directed. Act vlad Dexcom [...] SKIN TWICE DAILY DIRECTED 300 g 4 4 2:06 PM EDT 09/04/19 24 Active Calcitonin ([place]) 200 UNIT/ACT Nasal Solution Administer 1 [place] into one nostril in the morning. alternate nostrils.. 3 mL 09/25/19 24 Active buPROPion HCl ER (SR) 100 MG Oral Tablet Extended Release 12 Hour (Wellbutrin SR) Take 1 Tablet by mouth in the morning. Active Diphenoxylate-Atrop ine 2.5-0.025 MG Oral Tablet (Lomotil)Indication s:Irritable bowel syndrome with diarrhea TAKE 2 TABLETS BY MOUTH EVERY 6 HOURS NEEDED FOR DIARRHEA. 30 Tablet 11 12/23/19 24 Active Ozempic (1 MG/DOSE) 4 MG/3ML Subcutaneous Solution Pen-injector (Semaglutide (1 MG/DOSE)) Inject 1 mg under the skin once a week. Obtaining from [employer] Active NovoLOG FlexPen 100 UNIT/ML Subcutaneous Solution Pen-injector (insulin aspart) Inject under the skin three times a day with meals. 5 units before breakfast, 2 units with lunch and 2 units with supper + CF of 1:50 over 120 [when off ozempic] 4 units before breakfast [when taking ozempic] Obtaining from [employer] Active Tresiba FlexTouch 200 UNIT/ML Subcutaneous Solution Pen-injector (Insulin Degludec) Inject 16 Units under the skin in the morning. Obtaining from [employer]. Active Pantoprazole Sodium 40 MG Oral Tablet [...] bedtime. 40 Capsule 04/14/20 24 Active Methscopolamine [place] 2.5 MG Oral TabletIndications:I rritable bowel syndrome [...] BEDTIME 90 Tablet 1 05/13/20 24 Active Hospital, Clinic, or Other Facility Administered Medication Ordered Dose Route Frequency Start Date End Date Status albuterol sulfate (PROVENTIL) (2.5 MG/3ML) 0.083% inhalation solution 2.5 mgIndications:Moderate persistent asthma without complication 2.5 mg NEBULIZER Q4H PRN 08/13/2018 Active documented as of this encounter (statuses as of 05/15/2024) Active Problems Patient Care Coordination No te [...] as of this encounter (statuses as of 05/15/2024) Resolved Problems Problem Noted Date Diagnosed Date [...] Overview (06/04/2014): Signed 06/04/2014 Pranav Sanchez MD [facility] Pharmacy [place] Spinal pain 06/04/2014 02/02/2017 Type 2 diabetes [...] as of this encounter (statuses as of 05/15/2024) Immunizations Name Administration Dates Next Due COVID-19 mRNA, LNP-s, No Pre serve, 2-Dose Series ([employer]) 09/09/2020,08/19/2020 Covid-19, Mrna, Lnp-s, Pf, B ivalent, 30 Mcg, IM, 12 yrs and above ([employer]) 03/02/2024 Pneumococcal Conjugate Vacc, 13 Valent (Prevnar) [...] encounter Miscellaneous Notes * Telephone Encounter - Sarah Villa OSA - 05/15/2024 9:36 AM EST Pt called advising she received a letter to come in for a BP check. Pt advised she is seen often and is staying on top of it. Pt will disregard the letter. documented in this encounter Plan of Treatment Upcoming Encounters Date Type Department Care Team (Late st Contact Info) Description 05/25/2024 8:00 AM EST Office Visit Hematology/Oncology [facility] [address] [place] [phone] Henok Stauffer MD [address] [place] [address] 09/09/2024 11:00 AM EDT Office Visit Pharmacy, [facility] [address] [place] [address] [phone] [facility] [address] [place] [address] [place] [address] 11/24/2024 2:40 PM EDT Office Visit Nephrology, [facility] [address] [facility] [address] [place] [address] Eric Day MD [address] [facility] [place] [address] 03/29/2025 3:45 PM EST Office Visit Ophthalmology, [place] [address] [place] [address] Ernie Rivers DO [address] [place] [address] Scheduled Procedures Name Priority Associated Diagnoses Date/Ti [...] 03/02/2024, 09/09/2020, 08/19/2020 CKD PHOS USE SMARTSET 96581 09/16/202408/26, 06/18/2023, 06/06/2023, Additional history exists GFR 09/23/2024 03/25/2024, 02/25, 01/06/2024, Additional history exists HbA1c 09/23/2024 03/25/2024, 08/26, 04/24/2023, Additional history exists Diabetic Foot Exam 10/02/2024 10/03/2023, 1 07/24/2019, 04/06/2019, Additional history exists Diabetic Eye Exam 03/05/2025 03/05/2024, , 03/05/2024, Additional history exists Mammogram 03/05/2025 03/05/2024, 07/2022, 02/26/2023, Additional history exists CKD HGB USE SMARTSET 72870 03/25/202503/25, 03/25/2024, 03/16/2024, Additional history exists Albumin/Creatinine [...] Documents on File Type Date Recorded Patient Utility Mechanic Expl anatrichard POLST 10/20/2021 [place] OR [facility] FOR [...] Power of Attor buddy? No Care Teams Certified Medical Aide Relationship Specialty Start Date End Date Chris Asencio DO [address] [place] [address] PCP - General Family Medicine 01/07/18 documented as of this encounter
--- OUTSIDE RECORDS SUMMARY | 2024-09-21 22:42 | External Medical Summary | Summary of Care ---
Author Name Unknown Organization [facility] Address [address] [place] [address] Phone [phone] Care Team Providers Care Emergency Response Technician Name Role Phone Jessica Asencio DO Primary Care Provider Reason for Visit * Reason Comments eRx-Medication Refill Encounter Details Date Type Department Care Team (Late st Contact Info) Description 05/12/2024 Refill Family Practice [facility] [address] [place] [address] Jessica Asencio DO [address] [place] [address] Right knee pain, unspecified chronicity Allergies Active [...] as of this encounter (statuses as of 05/13/2024) Medications Spacer/Aero-Holdin socorro Singh DEVIIndications:Mo derate persistent [...] 09/04/19 24 5:45 PM EDT 023 Active Famotidine 40 MG Oral Tablet (Pepcid)Indication s:Gastroesophageal reflux disease with esophagitis without hemorrhage Take 1 Tablet by mouth in the morning. 90 Tablet 3 09/05/19 24 6:32 AM EDT 023 Active Fluticasone Propionate 50 MCG/ACT [...] 09/17/19 24 3:16 PM EDT 023 Active Montelukast Sodium 10 MG Oral Tablet (Singulair)Indicat ions:Moderate persistent asthma without complication Take 1 Tablet by mouth in the morning. 90 Tablet 3 09/17/19 24 3:16 PM EDT 023 Active [employer] Flex System w/Device Kit USE 1 DEVICE DIRECTED EVERY EVENING. UP TO 4 TIMES A DAY TO CHECK BLOOD GLUCOSE E11.9 023 Active Dexcom G7 [employer] Device Use as directed. Active Dexcom G7 [...] 24 2:06 PM EDT 024 Active Calcitonin ([place]) 200 UNIT/ACT Nasal Solution Administer 1 [place] into one nostril in the morning. alternate nostrils.. 3 mL 024 Active buPROPion HCl ER (SR) 100 MG Oral Tablet Extended Release 12 Hour (Wellbutrin SR) Take 1 Tablet by mouth in the morning. Active Diphenoxylate-Atro pine 2.5-0.025 MG Oral Tablet (Lomotil)Indicatio ns:Irritable bowel syndrome with diarrhea TAKE 2 TABLETS BY MOUTH EVERY 6 HOURS NEEDED FOR DIARRHEA. 30 Tablet 11 024 Active Ozempic (1 MG/DOSE) 4 MG/3ML Subcutaneous Solution Pen-injector (Semaglutide (1 MG/DOSE)) Inject 1 mg under the skin once a week. Obtaining from [employer] Active NovoLOG FlexPen 100 UNIT/ML Subcutaneous Solution Pen-injector (insulin aspart) Inject under the skin three times a day with meals. 5 units before breakfast, 2 units with lunch and 2 units with supper + CF of 1:50 over 120 [when off ozempic] 4 units before breakfast [when taking ozempic] Obtaining from [employer] Active Tresiba FlexTouch 200 UNIT/ML Subcutaneous Solution Pen-injector (Insulin Degludec) Inject 16 Units under the skin in the morning. Obtaining from [employer]. Active Pantoprazole Sodium 40 MG Oral Tablet [...] before bedtime. 40 Capsule 024 Active Methscopolamine Rad[place] 2.5 MG Oral TabletIndications: Irritable bowel syndrome [...] AT BEDTIME 90 Tablet 1 024 Active Pramipexole Dihydrochloride 1 MG Oral Tablet (Mirapex)Indicatio ns:Right knee pain, unspecified chronicity Take 1 Tablet by mouth at bedtime. 90 Tablet 3 09/04/19 24 5:45 PM EDT 023 2023 Discontinued Hospital, Clinic, or Other Facility Administered Medication Ordered Dose Route Frequency Start Date End Date Status albuterol sulfate (PROVENTIL) (2.5 MG/3ML) 0.083% inhalation solution 2.5 mgIndications:Moderate persistent asthma without complication 2.5 mg NEBULIZER Q4H PRN 08/13/2018 Active documented as of this encounter (statuses as of 05/13/2024) Active Problems Patient Care Coordination No te [...] as of this encounter (statuses as of 05/13/2024) Resolved Problems Problem Noted Date Diagnosed Date [...] Overview (06/04/2014): Signed 06/04/2014 Pranav Sanchez MD [facility] Pharmacy [place] Spinal pain 06/04/2014 02/02/2017 Type [...] as of this encounter (statuses as of 05/13/2024) Immunizations Name Administration Dates Next Due COVID-19 mRNA, LNP-s, No Pre serve, 2-Dose Series ([email or web address]) 09/09/2020,08/19/2020 Covid-19, Mrna, Lnp-s, Pf, B ivalent, 30 Mcg, IM, 12 yrs and above ([email or web address]) 03/02/2024 Pneumococcal Conjugate Vacc, 13 Valent (Prevnar) [...] Telephone Encounter - Jessica Asencio DO - 05/13/2024 11:03 AM EST Signed Prescriptions: Disp Refills Pramipexole Dihydrochloride 1 MG Oral Tabl*90 Tab*1 Sig: TAKE 1 TABLET BY MOUTH EVERYDAY AT BEDTIME Authorizing Provider: JESSICA ASENCIO * Telephone Encounter - Екатерина Lizarraga MED ASSIST - 05/13/2024 9:33 AM EST Pending Prescriptions: Disp Refills Pramipexole Dihydrochloride 1 MG Oral Tabl*90 Tab*1 Sig: TAKE 1 TABLET BY MOUTH EVERYDAY AT BEDTIME * Telephone Encounter - Екатерина Lizarraga MED ASSIST - 05/13/2024 9:33 AM EST Did you pend patient's preferred pharmacy and medication before forwarding?yes Pharmacy: [id number] [address] [place] [address] Pending Prescriptions: Disp Refills Pramipexole Dihydrochloride 1 MG Oral Tab*90 Tab*1 Sig: TAKE 1 TABLET BY MOUTH EVERYDAY AT BEDTIME Last Visit: 04/14/2024 (in office), 06/30/2021 (telemedicine) Next Visit: Visit date not found If no future appointments scheduled, and last appointment is greater than a year ago, please schedule patient for a follow-up appointment Last date the medication was ordered: Is this request for a controlled substance?No [...] AM HGBA1C 6.7 (H) 05/24/2020 11:20 AM * Telephone Encounter - Krzysztof Liriano - 05/12/2024 2:06 PM ESTPending Prescriptions: Disp Refills Pramipexole Dihydrochloride 1 MG Oral Tabl*90 Tab*1 Sig: TAKE 1TABLET BY MOUTH EVERYDAY AT BEDTIME documented in this encounter Plan of Treatment Upcoming Encounters Date Type Department Care Team (Late st Contact Info) Description 05/14/2024 2:30 PM EST [facility] [address] [place] [phone] [facility] [address] [place] [address] [place] [address] 05/25/2024 8:00 AM EST Office Visit Hematology/Oncology [facility] [place] [address] [facility] [place], [place] [phone] Henok Stauffer MD [address] [facility] [address] [place] [address] 11/24/2024 2:40 PM EDT Office Visit Nephrology, [facility] [address] [facility] [place] [address] Eric Day MD [address] [facility] [place] [address] 03/29/2025 3:45 PM EST Office Visit Ophthalmology, [place] [address] [place] [address] [address] Ernie Rivers DO [address] [place] [address] Scheduled Procedures Name Priority Associated Diagnoses Date/Ti [...] 03/02/2024, 09/09/2020, 08/19/2020 CKD PHOS USE SMARTSET 25427 09/16/202408/26, 06/18/2023, 06/06/2023, Additional history exists GFR 09/23/2024 03/25/2024, 02/25, 01/06/2024, Additional history exists HbA1c 09/23/2024 03/25/2024, 08/26, 04/24/2023, Additional history exists Diabetic Foot Exam 10/02/2024 10/03/2023, 1 07/24/2019, 04/06/2019, Additional history exists Diabetic Eye Exam 03/05/2025 03/05/2024, , 03/05/2024, Additional history exists Mammogram 03/05/2025 03/05/2024, 07/2022, 02/26/2023, Additional history exists CKD HGB USE SMARTSET 14440 03/25/202503/25, 03/25/2024, 03/16/2024, Additional history exists Albumin/Creatinine [...] Documents on File Type Date Recorded 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 No Care Teams Emergency Response Technician Relationship Specialty Start Date End Date Jessica Asencio DO [facility] [place] [address] PCP - General Family Medicine 01/07/18 documented as of this encounter
--- OUTSIDE RECORDS SUMMARY | 2024-09-21 22:42 | External Medical Summary | Summary of Care ---
Author Name Unknown Organization [facility] Address [address] [place] [address] Phone [phone] Care Team Providers Care Straight Truck Driver Name Role Phone Chris Asencio DO Primary Care Provider Reason for Visit * Reason Onset Date Comments Medication Refill 06/01/2024 Encounter Details Date Type Department Care Team (Late st Contact Info) Description 06/01/2024 Refill Family Practice [facility] [address] [place] [address] Chris Asencio DO [address] [place] [address] Irritable bowel syndrome with diarrhea Allergies Active [...] as of this encounter (statuses as of 06/03/2024) Medications Spacer/Aero-Holding Chambers DEVIIndications:Mod erate persistent asthma [...] 3 4 3:16 PM EDT 05/09/20 Active Metoprolol Succinate ER 25 MG Oral Tablet Extended Release 24 Hour (toPROL XL)Indications:PVC' s (premature ventricular contractions) TAKE 1 TABlet BY MOUTH EVERY MORNING AND ONE-HALF TABlet AT BEDTIME. 135 Tablet 3 4 3:16 PM EDT 05/09/20 23 Active OneTouch Verio Flex System w/Device Kit USE 1 DEVICE DIRECTED EVERY EVENING. UP TO 4 TIMES A DAY TO CHECK BLOOD GLUCOSE E11.9 04/17/20 23 Active Dexcom G7 Driver Engineer Device Use as directed. Act vlad [...] mouth 2 times a day. Active Calcitonin ([place]) 200 UNIT/ACT Nasal Solution Administer 1 [place] into one nostril in the morning. alternate nostrils.. 3 mL 11 09/25/19 24 Active buPROPion HCl ER (SR) 100 MG Oral Tablet Extended Release 12 Hour (Wellbutrin SR) Take 1 Tablet by mouth in the morning. Active Ozempic (1 MG/DOSE) 4 MG/3ML Subcutaneous Solution Pen-injector (Semaglutide (1 MG/DOSE)) Inject 1 mg under the skin once a week. Obtaining from [employer] Active NovoLOG FlexPen 100 UNIT/ML Subcutaneous Solution Pen-injector (insulin aspart) Inject under the skin three times a day with meals. 5 units before breakfast, 2 units with lunch and 2 units with supper + CF of 1:50 over 120 [when off ozempic] 4 units before breakfast [when taking ozempic] Obtaining from [employer] Active Tresiba FlexTouch 200 UNIT/ML Subcutaneous Solution Pen-injector (Insulin Degludec) Inject 16 Units under the skin in the morning. Obtaining from [employer]. Active Pantoprazole Sodium 40 MG Oral Tablet [...] bedtime. 40 Capsule 04/14/20 24 Active Methscopolamine [place] 2.5 MG Oral TabletIndications:I rritable bowel syndrome [...] as of this encounter (statuses as of 06/03/2024) Active Problems Patient Care Coordination No te [...] as of this encounter (statuses as of 06/03/2024) Resolved Problems Problem Noted Date Diagnosed Date [...] o Other: toujeo DM Secondary Prevention o CLARTIA Inhibitor / ARB o Moderate-High Intensity Statin [...] Overview (06/04/2014): Signed 06/04/2014 Pranav Sanchez MD [facility] [place] Spinal pain 06/04/2014 02/02/2017 Type 2 diabetes [...] as of this encounter (statuses as of 06/03/2024) Immunizations Name Administration Dates Next Due COVID-19 mRNA, LNP-s, No Pre serve, 2-Dose Series ([employer]) 09/09/2020,08/19/2020 Covid-19, Mrna, Lnp-s, Pf, B ivalent, 30 Mcg, IM, 12 yrs and above ([employer]) 03/02/2024 Pneumococcal Conjugate Vacc, 13 Valent (Prevnar) [...] encounter Miscellaneous Notes * Telephone Encounter - Ivette Valentin RPh - 06/03/2024 8:37 AM ESTRefused Prescriptions: Disp Refills Diphenoxylate-Atropine 2.5-0.025 MG Oral T*30 Tab*11 Sig: Take 2 Tablets by mouth every 6 hours as needed for Diarrhea.Refused By: Liliane VALENTIN for Refusal: Too soon documented in this encounter Plan of Treatment Upcoming Encounters Date Type Department Care Team (Late st Contact Info) Description 07/13/2024 10:00 AM EST Office Visit Hematology/Oncology [place] [address] [facility] [place] [phone] Henok Stauffer MD [address] [facility] [place] [address] 09/09/2024 11:00 AM EDT [facility] [place] [facility] [phone] [facility] [address] [place], [place] [address] [address] 11/24/2024 2:40 PM EDT Office Visit Neph[facility], [place] [facility] [place] [address] Eric Day MD [address] [facility] [place] [address] 03/29/2025 3:45 PM EST [facility] [place] [facility] [place] [address] Ernie Rivers DO [address] [facility] [place] [address] Scheduled Procedures Name Priority Associated Diagnoses Date/Ti [...] 03/02/2024, 09/09/2020, 08/19/2020 CKD PHOS USE SMARTSET 53235 09/16/2024 04/2 07/2023, 06/18/2023, 06/06/2023, Additional history exists GFR 09/23/2024 03/25/2024, 02/25, 01/06/2024, Additional history exists HbA1c 09/23/2024 03/25/2024, 08/26, 04/24/2023, Additional history exists Diabetic Foot Exam 10/02/2024 10/03/2023, 1 07/24/2019, 04/06/2019, Additional history exists Diabetic Eye Exam 03/05/2025 03/05/2024, , 03/05/2024, Additional history exists Mammogram 03/05/2025 03/05/2024, 07/2022, 02/26/2023, Additional history exists CKD HGB USE SMARTSET 20914 03/25/202503/25, 03/25/2024, 03/16/2024, Additional history exists Albumin/Creatinine [...] with stage 3b chronic kidney disease (HCC) Irritable bowel syndrome with diarrhea Irritable bowel syndrome documented in this encounter Advance Directives Documents on File Type Date Recorded 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 No Care Teams Straight Truck Driver Relationship Specialty Start Date End Date Chris Asencio DO [address] [place] [address] PCP - General Family Medicine 01/07/18 documented as of this encounter
--- OUTSIDE RECORDS SUMMARY | 2024-09-21 22:42 | External Medical Summary | Summary of Care ---
Author Name Unknown Organization [facility] Address [address] [place] [address] Phone [phone] Care Team Providers Care Spudder Name Role Phone Jessica Asencio DO Primary Care Provider Reason for Visit * Reason Onset Date Comments Medication Refill 06/01/2024 Encounter Details Date Type Department Care Team (Late st Contact Info) Description 06/01/2024 Refill Family Practice [facility] [address] [place] [address] Jessica Asencio DO [address] [place] [address] Right knee pain, unspecified chronicity Allergies Active [...] as of this encounter (statuses as of 06/02/2024) Medications Spacer/Aero-Holdin socorro Singh DEVIIndications:Mo derate persistent [...] Tablet 3 4 3:16 PM EDT 05/09/20 Active OneTouch Verio Flex System w/Device Kit USE 1 DEVICE DIRECTED EVERY EVENING. UP TO 4 TIMES A DAY TO CHECK BLOOD GLUCOSE E11.9 04/17/20 23 Active Dexcom G7 Professional Fee Coder Device Use as directed. Active Dexcom G7 [...] mouth 2 times a day. Active Calcitonin ([place]) 200 UNIT/ACT Nasal Solution Administer 1 [place] into one nostril in the morning. alternate nostrils.. 3 mL 09/25/19 24 Active buPROPion HCl ER (SR) 100 MG Oral Tablet Extended Release 12 Hour (Wellbutrin SR) Take 1 Tablet by mouth in the morning. Active Ozempic (1 MG/DOSE) 4 MG/3ML Subcutaneous Solution Pen-injector (Semaglutide (1 MG/DOSE)) Inject 1 mg under the skin once a week. Obtaining from [employer] Active NovoLOG FlexPen 100 UNIT/ML Subcutaneous Solution Pen-injector (insulin aspart) Inject under the skin three times a day with meals. 5 units before breakfast, 2 units with lunch and 2 units with supper + CF of 1:50 over 120 [when off ozempic] 4 units before breakfast [when taking ozempic] Obtaining from [employer] Active Tresiba FlexTouch 200 UNIT/ML Subcutaneous Solution Pen-injector (Insulin Degludec) Inject 16 Units under the skin in the morning. Obtaining from [employer]. Active Pantoprazole Sodium 40 MG Oral Tablet [...] bedtime. 40 Capsule 04/14/20 24 Active Methscopolamine [place] 2.5 MG Oral TabletIndications: Irritable bowel syndrome [...] DIRECTED 300 g 4 06/02/19 25 Active Diclofenac Sodium 1 % External Gel (Voltaren)Indicati ons:Right knee pain, unspecified chronicity PLACE 4 GRAMS TOPICALLY ON THE SKIN TWICE DAILY DIRECTED 300 g 4 4 2:06 PM EDT 09/04/19 24 025 Discontin ued(Refil l) Hospital, Clinic, or Other Facility Administered Medication Ordered Dose Route Frequency Start Date End Date Status albuterol sulfate (PROVENTIL) (2.5 MG/3ML) 0.083% inhalation solution 2.5 mgIndications:Moderate persistent asthma without complication 2.5 mg NEBULIZER Q4H PRN 08/13/2018 Active documented as of this encounter (statuses as of 06/02/2024) Active Problems Patient Care Coordination No te [...] as of this encounter (statuses as of 06/02/2024) Resolved Problems Problem Noted Date Diagnosed Date [...] Sanchez MD [facility] Pharmacy [place] Spinal pain 06/04/2014 02/02/2017 Type 2 diabetes [...] as of this encounter (statuses as of 06/02/2024) Immunizations Name Administration Dates Next Due COVID-19 mRNA, LNP-s, No Pre serve, 2-Dose Series ([employer] 09/09/2020,08/19/2020 Covid-19, Mrna, Lnp-s, Pf, B ivalent, 30 Mcg, IM, 12 yrs and above ([employer] 03/02/2024 Pneumococcal Conjugate Vacc, 13 Valent (Prevnar) [...] No 12/20/2023 Does the household have a [facility] source of income? (Household - for [...] Telephone Encounter - Jessica Asencio DO - 06/02/2024 10:32 AM EST Signed Prescriptions: Disp Refills Diclofenac Sodium 1 % External Gel (Voltar*300 g 4 Sig: PLACE 4 GRAMS TOPICALLY ON THE SKIN TWICE DAILY DIRECTED Authorizing Provider: JESSICA ASENCIO * Telephone Encounter - Krissy Reza LPN - 06/02/2024 6:58 AM ESTPending Prescriptions: Disp Refills Diclofenac Sodium 1 % External Gel (Voltar*300 g 4 Sig: PLACE 4 GRAMS TOPICALLY ON THE SKIN TWICE DAILY DIRECTED * Telephone Encounter - Krissy Reza LPN - 06/02/2024 6:57 AM EST Did you pend patient's preferred pharmacy and medication before forwarding?yes Pharmacy: [id number] [address] [facility] Pending Prescriptions: Disp Refills Diclofenac Sodium 1 % External Gel ([place]*300 g 4 Sig: PLACE 4 GRAMS TOPICALLY ON THE SKIN TWICE DAILY DIRECTED Last Visit: 04/14/2024 (in office), 06/30/2021 (telemedicine) Next Visit: Visit date not found If no future appointments scheduled, and last appointment is greater than a year ago, please schedule patient for a follow-up appointment Last date the medication was ordered: 09/04/23 Is this request for a controlled substance?No [...] * Telephone Encounter - Krzysztof Liriano - 06/02/2024 4:23 AM ESTPending Prescriptions: Disp Refills Diclofenac Sodium 1 % External Gel (Voltar*300 g 4 Sig: PLACE 4 GRAMS TOPICALLY ON THE SKIN TWICE DAILY DIRECTED documented in this encounter Plan of Treatment Upcoming Encounters Date Type Department Care Team (Late st Contact Info) Description 06/03/2024 2:00 PM EST Office Visit Hematology/Oncology [place] [facility] [phone] Maria Teresa Bailey CRNP [address] [facility] [place] [address] 09/09/2024 11:00 AM EDT Office Visit Pharmacy, [address] [place] [phone] [facility] [address] [facility] [place] [address] 11/24/2024 2:40 PM EDT Office Visit Nephrology, Misty [place] 200 [facility] [place] [address] Eric Day MD 200 [facility] [place] [address] 03/29/2025 3:45 PM EST Office Visit Ophthalmology, [place] [address] [place] [address] Ernie Rivers DO [address] [place] [address] Scheduled Procedures Name Priority Associated Diagnoses Date/Ti [...] 03/02/2024, 09/09/2020, 08/19/2020 CKD PHOS USE SMARTSET 43924 09/16/202408/26, 06/18/2023, 06/06/2023, Additional history exists GFR 09/23/2024 03/25/2024, 02/25, 01/06/2024, Additional history exists HbA1c 09/23/2024 03/25/2024, 08/26, 04/24/2023, Additional history exists Diabetic Foot Exam 10/02/2024 10/03/2023, 1 07/24/2019, 04/06/2019, Additional history exists Diabetic Eye Exam 03/05/2025 03/05/2024, , 03/05/2024, Additional history exists Mammogram 03/05/2025 03/05/2024, 07/2022, 02/26/2023, Additional history exists CKD HGB USE SMARTSET 27489 03/25/202503/25, 03/25/2024, 03/16/2024, Additional history exists Albumin/Creatinine [...] Documents on File Type Date Recorded 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 No Care Teams Spudder Relationship Specialty Start Date End Date Jessica Asencio DO [address] [place] [address] PCP - General Family Medicine 01/07/18 documented as of this encounter
--- OUTSIDE RECORDS SUMMARY | 2024-09-21 22:42 | External Medical Summary | Summary of Care ---
Author Name Unknown Organization [facility] Address [address] [place] [address] Phone [phone] Care Team Providers Care Wind Site Manager Name Role Phone Chris Asencio Primary Care Provider Encounter Details Date Type Department Care Team (Late st Contact Info) Description 05/28/2024 Population Health External Data Unspecified Department Allergies [...] this encounter (statuses as of 06/02/2024) Medications Spacer/Aero-Holding Chambers DEVIIndications:Mod erate persistent asthma [...] 4 3:16 PM EDT 05/09/20 23 Active [employer] Flex System w/Device Kit USE 1 DEVICE DIRECTED EVERY EVENING. UP TO 4 TIMES A DAY TO CHECK BLOOD GLUCOSE E11.9 04/17/20 23 Active Dexcom G7 Child Life Therapist Device Use as directed. Act vlad Dexcom [...] 2:06 PM EDT 09/04/19 24 Active Calcitonin ([place]) 200 UNIT/ACT Nasal Solution Administer 1 [place] into one nostril in the morning. alternate nostrils.. 3 mL 11 09/25/19 24 Active buPROPion HCl ER (SR) 100 MG Oral Tablet Extended Release 12 Hour (Wellbutrin SR) Take 1 Tablet by mouth in the morning. Active Ozempic (1 MG/DOSE) 4 MG/3ML Subcutaneous Solution Pen-injector (Semaglutide (1 MG/DOSE)) Inject 1 mg under the skin once a week. Obtaining from [employer] Active NovoLOG FlexPen 100 UNIT/ML Subcutaneous Solution Pen-injector (insulin aspart) Inject under the skin three times a day with meals. 5 units before breakfast, 2 units with lunch and 2 units with supper + CF of 1:50 over 120 [when off ozempic] 4 units before breakfast [when taking ozempic] Obtaining from [employer] Active Tresiba FlexTouch 200 UNIT/ML Subcutaneous Solution Pen-injector (Insulin Degludec) Inject 16 Units under the skin in the morning. Obtaining from [employer]. Active Pantoprazole Sodium 40 MG Oral Tablet [...] bedtime. 40 Capsule 04/14/20 24 Active Methscopolamine [place] 2.5 MG Oral TabletIndications:I rritable bowel syndrome [...] Diarrhea. 30 Tablet 11 05/28/19 25 Active Hospital, Clinic, or Other Facility [...] Signed 06/04/2014 Pranav Sanchez MD [facility] Pharmacy [place] Spinal pain 06/04/2014 02/02/2017 Type 2 diabetes [...] mRNA, LNP-s, No Pre serve, 2-Dose Series ([employer]) 09/09/2020,08/19/2020 Covid-19, Mrna, Lnp-s, Pf, B ivalent, 30 Mcg, IM, 12 yrs and above ([employer]) 03/02/2024 Pneumococcal Conjugate Vacc, 13 Valent (Prevnar) [...] 06/03/2024 2:00 PM EST Office Visit Hematology/Oncology [place] [address] [place] [phone] Maria Teresa Bailey CRNP [address] [facility] [place] [address] 09/09/2024 11:00 AM EDT [facility] [place] [facility] [address] [place] [phone] [facility] [address] [place] [address] 11/24/2024 2:40 PM EDT Office Visit Nephrology, Misty Calderon [address] [place] [address] Eric Day MD [address] [place] [address] 03/29/2025 3:45 PM EST Office Visit Ophthalmology, [place] [address] [facility] [place] [address] Ernie Rivers, DO [address] [place] [address] Scheduled Procedures Name Priority Associated Diagnoses Date/Ti [...] 03/02/2024, 09/09/2020, 08/19/2020 CKD PHOS USE SMARTSET 20379 09/16/202408/26, 06/18/2023, 06/06/2023, Additional history exists GFR 09/23/2024 03/25/2024, 02/25, 01/06/2024, Additional history exists HbA1c 09/23/2024 03/25/2024, 08/26, 04/24/2023, Additional history exists Diabetic Foot Exam 10/02/2024 10/03/2023, 1 07/24/2019, 04/06/2019, Additional history exists Diabetic Eye Exam 03/05/2025 03/05/2024, , 03/05/2024, Additional history exists Mammogram 03/05/2025 03/05/2024, 07/2022, 02/26/2023, Additional history exists CKD HGB USE SMARTSET 10467 03/25/202503/25, 03/25/2024, 03/16/2024, Additional history exists Albumin/Creatinine [...] Documents on File Type Date Recorded Patient Support Merchandiser Expl anation POLST 10/20/2021 [place] OR [facility] FOR LIFE-SUSTAINING TREATMENT * Full [...] Power of Attor buddy? No Care Teams Wind Site Manager Relationship Specialty Start Date End Date Chris Asencio DO [address] [place] [address] PCP - General Family Medicine 01/07/18 documented as of this encounter
--- OUTSIDE RECORDS SUMMARY | 2024-09-21 22:42 | External Medical Summary | Summary of Care ---
Author Name Unknown Organization [facility] Address [address] [place] [address] Phone [phone] Care Team Providers Care High Climber Name Role Phone Chris Asencio Primary Care Provider Reason for Visit * Reason Comments Dosage Adjustment In Person (Anticoag Cl inic) Diabetes Follow-Up Encounter Details Date Type Department Care Team (Late st Contact Info) Description 05/14/2024 2:30 PM EST Office Visit Pharmacy, [address] [place] [phone] [facility] [address] [place] [address] Type 2 diabetes mellitus with hemoglobin A1c goal of less than 8.0% ([facility])* Allergies Active Allergy Reactions Criticality Noted Date [...] as of this encounter (statuses as of 05/14/2024) Medications Spacer/Aero-Holding Chambers DEVIIndications:Mod erate persistent asthma [...] Each 3 4 5:45 PM EDT 05/09/20 Active Budesonide 0.5 [...] 4 3:16 PM EDT 05/09/20 23 Active CircleCI Flex System w/Device Kit USE 1 DEVICE DIRECTED EVERY EVENING. UP TO 4 TIMES A DAY TO CHECK BLOOD GLUCOSE E11.9 04/17/20 23 Active Dexcom G7 Motor Vehicle Assembly Supervisor Device Use as directed. Act vlad [...] 2:06 PM EDT 09/04/19 24 Active Calcitonin ([place]) 200 UNIT/ACT Nasal Solution Administer 1 [place] into one nostril in the morning. alternate [...] the skin once a week. Obtaining from [employer] Active NovoLOG FlexPen 100 UNIT/ML Subcutaneous Solution Pen-injector (insulin aspart) Inject under the skin three times a day with meals. 5 units before breakfast, 2 units with lunch and 2 units with supper + CF of 1:50 over 120 [when off ozempic] 4 units before breakfast [when taking ozempic] Obtaining from [employer] Active Tresiba FlexTouch 200 UNIT/ML Subcutaneous Solution Pen-injector (Insulin Degludec) Inject 16 Units under the skin in the morning. Obtaining from [employer]. Active Pantoprazole Sodium 40 MG Oral Tablet [...] 40 Capsule 04/14/20 24 Active Methscopolamine [place] 2.5 MG Oral TabletIndications:I rritable bowel syndrome [...] as of this encounter (statuses as of 05/14/2024) Active Problems Patient Care Coordination No te [...] as of this encounter (statuses as of 05/14/2024) Resolved Problems Problem Noted Date Diagnosed Date [...] Overview (06/04/2014): Signed 06/04/2014 Pranav Sanchez MD [facility] Pharmacy [place] Spinal pain 06/04/2014 02/02/2017 Type 2 diabetes [...] as of this encounter (statuses as of 05/14/2024) Immunizations Name Administration Dates Next Due COVID-19 mRNA, LNP-s, No Pre serve, 2-Dose Series ([employer] 09/09/2020,08/19/2020 Covid-19, Mrna, Lnp-s, Pf, B ivalent, 30 Mcg, IM, 12 yrs and above ([employer] 03/02/2024 Pneumococcal Conjugate Vacc, 13 Valent (Prevnar) [...] this encounter Progress Notes * Debbie Goldman, [facility] - 05/14/2024 2:35 PM EST Images from the original note were not included. Medication Therapy Disease Management [facility] - Diabetes Management Progress Note Liane Alejandre, identified by name and date of , is a 74 year old female being seen for diabetes management/education. Patient presents for return diabetic visit. DIABETES: Current diabetic medications: Continue Ozempic 1 mg once weekly- Saturdays DECREASE Tresiba U 200 16 units once daily in AM giving 24 units Continue Novolog 5 units before breakfast; 2 units before lunch; 2 units with supper + CF of 1:50 over 200 Medication Injection Site: Abdomen Lifestyle: Diet: unchanged Glucose Review/SMBG: Readings obtained from patient device Hypoglycemia: Does your blood sugar go below [...] using BP Readings from Last 3 Encounters: 04/14/24 126/80 04/06/24 125/74 03/25/24 130/82 Blood pressure at goal: yes HYPERLIPIDEMIA: Recent Labs Units 03/25/24 1311 01/24/23 1357 09/06/22 1235 LDL CHOLESTEROL (CALCULATED) - [facility] mg/dL -- -- 34 LDL CHOLESTEROL (DIRECT MEASURE) - [facility] mg/dL 65 51 -- Does patient have clinical ASCVD? No, is patient LDL less than 70mg/dL? Yes HEALTH MAINTENANCE REVIEW: Health Maintenance Due Topic Date Due Zoster Vaccines (2 of 3) 05/07/2013 Depression Monitoring 10/13/2023 Adult Wellness Visit 10/13/2023 COVID-19 Vaccine ( season) 2024 ASSESSMENT & PLAN: ICD-10-CM 1. Type 2 diabetes mellitus with hemoglobin A1c goal of less than 8.0% ([facility]) E11.9 Considerations: - metformin - diarrhea and rash - Glyburide - rash - actos - rash - possibility that patient is intolerant to "fillers" of pills vs the active ingredient themselves - avoid ozempic 2 mg due to past hx of tolerability issues with it - Renal function BG Readings - Blood sugars controlled. Reviewed dexcom download with patient. TIR is 76%, which considering that she was recently on prednisone, is really good. Medications - Reviewed current regimen, patient is taking higher doses of insulin due to the highersugars with her having an infection/pneumonia + prednisone. We will see if she needs to re-enroll in Hochy eto PAP -- remind me sent to myself in Mid-June to send scripts to pharmacy to check copays. If unaffordable, will plan to re-enroll in NovoPAP atthat time. Diet, Exercise, Lifestyle - No significant lifestyle changes since last visit. Discussed with patient. Patient is agreeable to SMBG dexcom g7 daily. Patient aware to contact clinic if any hypoglycemia before next visit. MEDICATION CHANGES: no change Diabetic Medications: Continue Ozempic 1 mg once weekly- Saturdays Tresiba U 200 20 units once daily in AM Continue Novolog 5 units before breakfast; 2 units before lunch; 2 units with supper + CF of 1:50 over 200 HEALTH MAINTENANCE INTERVENTIONS: Labs: Up to Date Immunizations: Up to Date Foot Exam: Up to Date Eye Exam: Up to Date Annual Wellness Visit: due FOLLOW UP: Return to clinic in 4 months 09/09/2024 I spent a total of 30-39 minutes (exact time 34 mins) on the date of service in preparation, delivery, and documentation of the care provided to Liane Alejandre excluding any time spent in the performance of separately billed services. Debbie Goldman [facility] Clinical Pharmacist - [facility] Med[facility] Therapy Management [facility] 05/14/2024, 2:35 PM documented in this encounter Plan of Treatment Upcoming Encounters Date Type Department Care Team (Late st Contact Info) Description 05/25/2024 8:00 AM EST Office Visit Hematology/Oncology [facility] [address] [place] [phone] Henok Stauffer MD [address] [place] [address] 09/09/2024 11:00 AM EDT [facility] [address] [place] [phone] [facility] [address] [place] [address] [place] [address] 11/24/2024 2:40 PM EDT Office Visit Nephrology, [address] [facility] [place] [address] Eric Day MD [address] [facility] [place] [address] 03/29/2025 3:45 PM EST Office Visit Ophthalmology, [address] [place] [address] Ernie Rivers DO [address] [place] [address] Scheduled Procedures Name Priority Associated Diagnoses Date/Ti [...] 03/02/2024, 09/09/2020, 08/19/2020 CKD PHOS USE SMARTSET 07166 09/16/202408/26, 06/18/2023, 06/06/2023, Additional history exists GFR 09/23/2024 03/25/2024, 02/25, 01/06/2024, Additional history exists HbA1c 09/23/2024 03/25/2024, 08/26, 04/24/2023, Additional history exists Diabetic Foot Exam 10/02/2024 10/03/2023, 1 07/24/2019, 04/06/2019, Additional history exists Diabetic Eye Exam 03/05/2025 03/05/2024, , 03/05/2024, Additional history exists Mammogram 03/05/2025 03/05/2024, 07/2022, 02/26/2023, Additional history exists CKD HGB USE SMARTSET 26344 03/25/202503/254, 03/25/2024, 03/16/2024, Additional history exists Albumin/Creatinine Ratio [...] Documents on File Type Date Recorded Patient It Sales Executive Expl anation POL 10/20/2021 [place] OR [facility] FOR LIFE-SUSTAINING [...] of Attor buddy? No Care Teams High Climber Relationship Specialty Start Date End Date Chris Asencio DO [address] [place] [address] PCP - General Family Medicine 01/07/18 documented as of this encounter
--- OUTSIDE RECORDS SUMMARY | 2024-09-21 22:43 | External Medical Summary | Summary of Care ---
Author Name Unknown Organization [facility] Address [address] [place] [address] Phone [phone] Care Team Providers Care Bullion Weigher Name Role Phone Chris Asencio DO Primary Care Provider Reason for Visit * Reason Onset Date Comments Medication Refill 05/12/2024 Encounter Details Date Type Department Care Team (Late st Contact Info) Description 05/12/2024 Telephone Family Practice [facility] [address] [place] [address] Chris Asencio DO [address] [place] [address] Medication Refill Allergies Active Allergy Reactions Criticality [...] as of this encounter (statuses as of 05/12/2024) Medications Spacer/Aero-Holding Chambers DEVIIndications:Mod erate persistent asthma [...] 4 3:16 PM EDT 05/09/20 23 Active Pramipexole Dihydrochloride 1 MG Oral Tablet (Mirapex)Indication s:Right knee pain, unspecified chronicity Take 1 Tablet by mouth at bedtime. 90 Tablet 3 4 5:45 PM EDT 05/09/20 23 Active [employer]amorous Travel System w/Device Kit USE 1 DEVICE DIRECTED EVERY EVENING. UP TO 4 TIMES A DAY TO CHECK BLOOD GLUCOSE E11.9 04/17/20 23 Active Dexcom G7 Veneer Repairer Machine Device Use as directed. Act vlad Dexcom [...] 2:06 PM EDT 09/04/19 24 Active Calcitonin ([place]) 200 UNIT/ACT Nasal Solution Administer 1 [place] into one nostril in the morning. alternate [...] the skin once a week. Obtaining from [employer] Active NovoLOG FlexPen 100 UNIT/ML Subcutaneous Solution Pen-injector (insulin aspart) Inject under the skin three times a day with meals. 5 units before breakfast, 2 units with lunch and 2 units with supper + CF of 1:50 over 120 [when off ozempic] 4 units before breakfast [when taking ozempic] Obtaining from [employer] Active Tresiba FlexTouch 200 UNIT/ML Subcutaneous Solution Pen-injector (Insulin Degludec) Inject 16 Units under the skin in the morning. Obtaining from [employer]. Active Pantoprazole Sodium 40 MG Oral Tablet [...] bedtime. 40 Capsule 04/14/20 24 Active Methscopolamine [place] 2.5 MG Oral TabletIndications:I rritable bowel syndrome [...] WEEK 30 g 5 05/12/20 24 Active Hospital, Clinic, or Other Facility Administered Medication Ordered Dose Route Frequency Start Date End Date Status albuterol sulfate (PROVENTIL) (2.5 MG/3ML) 0.083% inhalation solution 2.5 mgIndications:Moderate persistent asthma without complication 2.5 mg NEBULIZER Q4H PRN 08/13/2018 Active documented as of this encounter (statuses as of 05/12/2024) Active Problems Patient Care Coordination No te [...] Class II, BMI 35-39.9, isolated (see ac claudia BMI) 08/18/2009 Overview (08/18/2009): Per Obesity Taxonomy Irritable bowel syndrome documented as of this encounter (statuses as of 05/12/2024) Resolved Problems Problem Noted Date Diagnosed Date [...] (06/04/2014): Signed 06/04/2014 Pranav Sanchez MD [facility] Pharmacy [place] Spinal pain 06/04/2014 02/02/2017 Type 2 diabetes [...] as of this encounter (statuses as of 05/12/2024) Immunizations Name Administration Dates Next Due COVID-19 mRNA, LNP-s, No Pre serve, 2-Dose Series ([employer]) 09/09/2020,08/19/2020 Covid-19, Mrna, Lnp-s, Pf, B ivalent, 30 Mcg, IM, 12 yrs and above ([employer]) 03/02/2024 Pneumococcal Conjugate Vacc, 13 Valent (Prevnar) [...] Telephone Encounter - Leena Mann LPN - 05/12/2024 3:29 PM EST Received pt assistance medication Ozempic, novolog, tresiba, and fine tip needles Placed in medication room Called pt, aware and will corn picker at convenience documented in this encounter Plan of Treatment Upcoming Encounters Date Type Department Care Team (Late st Contact Info) Description 05/14/2024 2:30 PM EST [facility] [address] [place] [phone] [place] [address] [address] [facility] [address] 05/25/2024 8:00 AM EST Office Visit Hematology/Oncology [employer] [address] [facility] [place] [phone] Henok Stauffer MD [address] [facility] [place] [address] 11/24/2024 2:40 PM EDT Office Visit Nephrology, [facility] [address] [facility] [place] [address] Eric Day MD [address] [facility] [place] [address] Scheduled Procedures Name Priority Associated Diagnoses Date/Ti [...] 03/02/2024, 09/09/2020, 08/19/2020 CKD PHOS USE SMARTSET 77773 09/16/202408/26, 06/18/2023, 06/06/2023, Additional history exists GFR 09/23/2024 03/25/2024, 02/25, 01/06/2024, Additional history exists HbA1c 09/23/2024 03/25/2024, 08/26, 04/24/2023, Additional history exists Diabetic Foot Exam 10/02/2024 10/03/2023, 1 07/24/2019, 04/06/2019, Additional history exists Diabetic Eye Exam 03/05/2025 03/05/2024, , 03/05/2024, Additional history exists Mammogram 03/05/2025 03/05/2024, 07/2022, 02/26/2023, Additional history exists CKD HGB USE SMARTSET 74015 03/25/202503/25, 03/25/2024, 03/16/2024, Additional history exists Albumin/Creatinine [...] Documents on File Type Date Recorded Patient 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 No Care Teams Bullion Weigher Relationship Specialty Start Date End Date Chris Asencio DO [address] [place] [address] PCP - General Family Medicine 01/07/18 documented as of this encounter
--- OUTSIDE RECORDS SUMMARY | 2024-09-21 22:43 | External Medical Summary | Summary of Care ---
Author Name Unknown Organization [facility] Address [address] [place] [address] Phone [phone] Care Team Providers Care Stave Bolt Equalizer Name Role Phone Jessica Asencio Primary Care Provider Reason for Visit * Reason Comments eRx-Medication Refill Encounter Details Date Type Department Care Team (Late st Contact Info) Description 04/30/2024 Refill Family Practice [facility] [address] [place] [address] Kaylen Aerllano MD [address] [place] [address] Irritable bowel syndrome with diarrhea Allergies Active [...] as of this encounter (statuses as of 05/04/2024) Medications Spacer/Aero-Holdin socorro Singh DEVIIndications:Mo derate persistent [...] 09/04/19 24 5:45 PM EDT 023 Active Estrogens Conjugated 0.625 MG/GM Vaginal Cream (Premarin)Indicati ons:Vaginal atrophy Administer 0.5 g into the vagina at bedtime. Do this 3 evenings per week 30 g 5 07/13/19 24 7:57 AM EST 023 Active Famotidine 40 MG Oral Tablet [...] 09/17/19 24 3:16 PM EDT 023 Active Pramipexole Dihydrochloride 1 MG Oral Tablet (Mirapex)Indicatio ns:Right knee pain, unspecified chronicity Take 1 Tablet by mouth at bedtime. 90 Tablet 3 09/04/19 24 5:45 PM EDT 023 Active Donay System w/Device Kit USE 1 DEVICE DIRECTED EVERY EVENING. UP TO 4 TIMES A DAY TO CHECK BLOOD GLUCOSE E11.9 023 Active DexSammie J's [employer] G7 Weapons Specialist Device Use as directed. Active Dexcom G7 [...] 24 2:06 PM EDT 024 Active Calcitonin ([place]) 200 UNIT/ACT Nasal Solution Administer 1 [place] into one nostril in the morning. alternate [...] the skin once a week. Obtaining from [employer] Active NovoLOG FlexPen 100 UNIT/ML Subcutaneous Solution Pen-injector (insulin aspart) Inject under the skin three times a day with meals. 5 units before breakfast, 2 units with lunch and 2 units with supper + CF of 1:50 over 120 [when off ozempic] 4 units before breakfast [when taking ozempic] Obtaining from [employer] Active Tresiba FlexTouch 200 UNIT/ML Subcutaneous Solution Pen-injector (Insulin Degludec) Inject 16 Units under the skin in the morning. Obtaining from [employer]. Active Pantoprazole Sodium 40 MG Oral Tablet [...] Capsules before bedtime. 40 Capsule Active Methscopolamine [place] 2.5 MG Oral TabletIndications: Irritable bowel syndrome [...] 24 4:37 PM EDT 023 2023 Discontinued Methscopolamine [place] 2.5 MG Oral TabletIndications: Irritable bowel syndrome with diarrhea TAKE 1 TAB UP TO 3 TIMES DAILY NEEDED FOR ABDOMINAL CRAMPS & DIARRHEA, 270 Tablet 1 10/28/19 24 5:56 PM EDT 023 2023 Discontinued Hospital, Clinic, or Other Facility Administered Medication Ordered Dose Route Frequency Start Date End Date Status albuterol sulfate (PROVENTIL) (2.5 MG/3ML) 0.083% inhalation solution 2.5 mgIndications:Moderate persistent asthma without complication 2.5 mg NEBULIZER Q4H PRN 08/13/2018 Active documented as of this encounter (statuses as of 05/04/2024) Active Problems Patient Care Coordination No te [...] as of this encounter (statuses as of 05/04/2024) Resolved Problems Problem Noted Date Diagnosed Date [...] Sanchez MD [facility] Pharmacy [place] Spinal pain 06/04/2014 02/02/2017 Type 2 [...] as of this encounter (statuses as of 05/04/2024) Immunizations Name Administration Dates Next Due COVID-19 mRNA, LNP-s, No Pre serve, 2-Dose Series ([email or web address]) 09/09/2020,08/19/2020 Covid-19, Mrna, Lnp-s, Pf, B ivalent, [...] the money to buy more. Never true 07/26/20 24 Within the past 12 months, t [...] Miscellaneous Notes * Telephone Encounter - Jessica Asencio, - 05/04/2024 12:09 PM EST Signed Prescriptions: Disp Refills Methscopolamine [place] 2.5 MG Oral Tablet 270 Ta*1 Sig: TAKE 1 TAB UP TO 3 TIMES DAILY NEEDED FOR ABDOMINAL CRAMPS & DIARRHEA, Authorizing Provider: JESSICA ASENCIO * Telephone Encounter - Екатерина Lizarraga MED ASSIST - 2024 7:09 AM EST Pending Prescriptions: Disp Refills Methscopolamine [place] 2.5 MG Oral Tablet*270 Ta*1 Sig: TAKE 1 TAB UP TO 3 TIMES DAILY NEEDED FOR ABDOMINAL CRAMPS & DIARRHEA, * Telephone Encounter - Екатерина Lizarraga MED ASSIST - 2024 7:09 AM EST Did you pend patient's preferred pharmacy and medication before forwarding?yes Pharmacy: [id number] [address] [place] [address] Pending Prescriptions: Disp Refills Methscopolamine [place] 2.5 MG Oral Table*270 Ta*1 Sig: TAKE 1 TAB UP TO 3 TIMES DAILY NEEDED FOR ABDOMINAL CRAMPS & DIARRHEA, Last Visit: 04/14/2024 (in office), 06/30/2021 (telemedicine) [...] * Telephone Encounter - Krzysztof Liriano - 2024 4:20 AM ESTPending Prescriptions: Disp Refills Methscopolamine [place] 2.5 MG Oral Tablet*270 Ta*1 Sig: TAKE 1TAB UP TO 3 TIMES DAILY NEEDED FOR ABDOMINAL CRAMPS & DIARRHEA, documented in this encounter Plan of Treatment Upcoming Encounters Date Type Department Care Team (Late st Contact Info) Description 05/14/2024 2:30 PM EST Office Visit Pharmacy, [place] [address] [facility] [place] [phone] [facility] [address] [facility] [place] [address] 11/24/2024 2:40 PM EDT Office Visit Nephrology, [address] [place] [address] Eric Day MD 200 [facility] [place] [address] 03/19/2025 1:00 PM EDT Office Visit Ophthalmology, [address] [place] [address] Ernie Rivers DO [address] [place] [address] Scheduled Procedures Name Priority Associated Diagnoses Date/Ti [...] 03/02/2024, 09/09/2020, 08/19/2020 CKD PHOS USE SMARTSET 79380 09/16/202408/26, 06/18/2023, 06/06/2023, Additional history exists GFR 09/23/2024 03/25/2024, 02/25, 01/06/2024, Additional history exists HbA1c 09/23/2024 03/25/2024, 08/26, 04/24/2023, Additional history exists Diabetic Foot Exam 10/02/2024 10/03/2023, 1 07/24/2019, 04/06/2019, Additional history exists Diabetic Eye Exam 03/05/2025 03/05/2024, , 03/05/2024, Additional history exists Mammogram 03/05/2025 03/05/2024, 07/2022, 02/26/2023, Additional history exists CKD HGB USE SMARTSET 91866 03/25/202503/25, 03/25/2024, 03/16/2024, Additional history exists Albumin/Creatinine [...] Documents on File Type Date Recorded Patient Communication Instructor Expl anation POLST 10/20/2021 [place] OR [facility] FOR LIFE-SUSTAINING [...] Power of Attor buddy? No Care Teams Stave Bolt Equalizer Relationship Specialty Start Date End Date Jessica Asencio DO [address] [place] [address] PCP - General Family Medicine 01/07/18 documented as of this encounter
--- OUTSIDE RECORDS SUMMARY | 2024-09-21 22:43 | External Medical Summary | Summary of Care ---
Author Name Unknown Organization [facility] Address [address] [place] [address] Phone [phone] Care Team Providers Care Pipe Racker Name Role Phone Chris Asencio Primary Care Provider Encounter Details Date Type Department Care Team (Late st Contact Info) Description 04/25/2024 Patient Reported Data Patient Survey Ortho OBERD [...] as of this encounter (statuses as of 04/25/2024) Medications Spacer/Aero-Holding Chambers DEVIIndications:Mod erate persistent asthma [...] E 11.9 400 Each 5 04/17/20 Active Aspirin 81 MG Oral Tablet Chewable (Aspirin Low Dose)Indications:Ty pe 2 diabetes mellitus with diabetic nephropathy, with long-term current use of insulin (HCC) CHEW 1 TABLET BY MOUTH EVERY DAY 90 Tablet 3 4 5:40 PM EDT 05/09/20 23 Active Additional Information Patient taking differently: Daily(AM), CHEW 1 TABLET BY MOUTH EVERY DAY, Reported on 04/06/2024 Atorvastatin Calcium 40 MG Oral Tablet (Lipitor)Indication s:Dyslipidemia, goal LDL below 70 TAKE 1 TABLET BY MOUTH EVERY DAY IN THE MORNING 90 Tablet 3 4 4:37 PM EDT 05/09/20 23 Active BD Pen Needle Mini U/F [...] 4 5:45 PM EDT 05/09/20 23 Active Estrogens Conjugated 0.625 MG/GM Vaginal Cream (Premarin)Indicatio ns:Vaginal atrophy Administer 0.5 g into the vagina at bedtime. Do this 3 evenings per week 30 g 5 4 7:57 AM EST 05/09/20 Active Famotidine 40 MG Oral Tablet (Pepcid)Indications :Gastroesophageal reflux disease with esophagitis without hemorrhage Take 1 Tablet by mouth in the morning. 90 Tablet 3 4 6:32 AM EDT 05/09/20 23 Active Fluticasone Propionate 50 MCG/ACT Nasal Suspension (Flonase)Indication s:LRTI (lower respiratory tract infection),Moderate persistent asthma with acute exacerbation,Acute URI Administer 2 Sprays into each nostril in the morning and 2 Sprays before bedtime. 48 g 3 4 3:16 PM EDT 05/09/20 23 Active Methscopolamine [place] 2.5 MG Oral TabletIndications:I rritable bowel syndrome with diarrhea TAKE 1 TAB UP TO 3 TIMES DAILY NEEDED FOR ABDOMINAL CRAMPS & DIARRHEA, 270 Tablet 1 4 5:56 PM EDT 05/09/20 23 Active Metoprolol Succinate [...] 4 5:45 PM EDT 05/09/20 23 Active ON DEMAND Microelectronics Flex System w/Device Kit USE 1 DEVICE DIRECTED EVERY EVENING. UP TO 4 TIMES A DAY TO CHECK BLOOD GLUCOSE E11.9 04/17/20 23 Active Dexcom G7 Cracker Dough Mixer Device Use as directed. Act vlad Dexcom [...] 2:06 PM EDT 09/04/19 24 Active Calcitonin ([place]) 200 UNIT/ACT Nasal Solution Administer 1 [place] into one nostril in the morning. alternate [...] the skin once a week. Obtaining from Moni Active NovoLOG FlexPen 100 UNIT/ML Subcutaneous Solution Pen-injector (insulin aspart) Inject under the skin three times a day with meals. 5 units before breakfast, 2 units with lunch and 2 units with supper + CF of 1:50 over 120 [when off ozempic] 4 units before breakfast [when taking ozempic] Obtaining from Moni Active Tresiba FlexTouch 200 UNIT/ML Subcutaneous Solution Pen-injector (Insulin Degludec) Inject 16 Units under the skin in the morning. Obtaining from Moni. Active Pantoprazole Sodium 40 MG Oral Tablet [...] before bedtime. 40 Capsule 04/14/20 24 Active Hospital, Clinic, or Other Facility Administered Medication Ordered Dose Route Frequency Start Date End Date Status albuterol sulfate (PROVENTIL) (2.5 MG/3ML) 0.083% inhalation solution 2.5 mgIndications:Moderate persistent asthma without complication 2.5 mg NEBULIZER Q4H PRN 08/13/2018 Active documented as of this encounter (statuses as of 04/25/2024) Active Problems Patient Care Coordination No te [...] as of this encounter (statuses as of 04/25/2024) Resolved Problems Problem Noted Date Diagnosed Date [...] MD [facility] Pharm[facility] [place] Spinal pain 06/04/2014 02/02/2017 Type 2 diabetes [...] as of this encounter (statuses as of 04/25/2024) Immunizations Name Administration Dates Next Due COVID-19 mRNA, LNP-s, No Pre serve, 2-Dose Series (Project 10K) 09/09/2020,08/19/2020 Covid-19, Mrna, Lnp-s, Pf, B ivalent, 30 Mcg, IM, 12 yrs and above (Project 10K) 03/02/2024 Pneumococcal Conjugate Vacc, 13 Valent (Prevnar) [...] Team (Late st Contact Info) Description 04/30/2024 1:30 PM EST Office Visit Orthopaedics [facility] [address] [place] [address] Ion Ortiz DO [address] [place] [address] 05/04/2024 2:00 PM EST Office Visit Hematology/Oncology [facility] [place] [address] [place] [phone] Henok Stauffer MD [address] [place] [address] 05/14/2024 2:30 PM EST Office Visit Pharmacy, [address] [place] [phone] [facility] [address] [facility] [address] 11/24/2024 2:40 PM EDT Office Visit Nephrology, [facility] [address] [place] [address] Eric Day MD 200 [facility] [place], [place] [address] 03/19/2025 1:00 PM EDT Office Visit Ophthalmology, [place] [address] [place] [address] Ernie Rivers DO [address] [place] [address] Scheduled Procedures Name Priority Associated Diagnoses Date/Ti [...] 03/02/2024, 09/09/2020, 08/19/2020 CKD PHOS USE SMARTSET 71420 09/16/202408/26, 06/18/2023, 06/06/2023, Additional history exists GFR 09/23/2024 03/25/2024, 02/25, 01/06/2024, Additional history exists HbA1c 09/23/2024 03/25/2024, 08/26, 04/24/2023, Additional history exists Diabetic Foot Exam 10/02/2024 10/03/2023, 1 07/24/2019, 04/06/2019, Additional history exists Diabetic Eye Exam 03/05/2025 03/05/2024, , 03/05/2024, Additional history exists Mammogram 03/05/2025 03/05/2024, 07/2022, 02/26/2023, Additional history exists CKD HGB USE SMARTSET 64370 03/25/202503/25, 03/25/2024, 03/16/2024, Additional history exists Albumin/Creatinine [...] on File Type Date Recorded Patient Hydro Pneumatic Tester Expl anation POLST 10/20/2021 [place] OR [facility] FOR LIFE-SUSTAINING [...] Power of Attor buddy? No Care Teams Pipe Racker Relationship Specialty Start Date End Date Chris Asencio DO [address] [place] [address] PCP - General Family Medicine 01/07/18 documented as of this encounter
--- OUTSIDE RECORDS SUMMARY | 2024-09-21 22:43 | External Medical Summary | Summary of Care ---
Author Name Unknown Organization [facility] Address [address] [place] [address] Phone [phone] Care Team Providers Care Pig Machine Operator Name Role Phone Jessica Asencio DO Primary Care Provider Reason for Visit * Reason Comments eRx-Medication Refill Encounter Details Date Type Department Care Team (Late st Contact Info) Description 2024 Refill Family Practice [facility] [address] [place] [address] Jessica Asencio DO [address] [place] [address] Type 2 diabetes mellitus with diabetic nephropathy, with long-term current use of insulin (HCC); Dyslipidemia, goal LDL below 70 Allergies Active Allergy Reactions Criticality Noted Date [...] as of this encounter (statuses as of 05/02/2024) Medications Spacer/Aero-Holdin g Chambers DEVIIndications:Mo derate persistent [...] AND 1 VIAL BEFORE BEDTIME 360 mL 09/04/19 24 5:45 PM EDT 023 Active Estrogens Conjugated 0.625 MG/GM Vaginal Cream (Premarin)Indicati ons:Vaginal atrophy Administer 0.5 g into the vagina at bedtime. Do this 3 evenings per week 30 g 5 07/13/19 24 7:57 AM EST 023 Active Famotidine 40 MG Oral Tablet (Pepcid)Indication s:Gastroesophageal reflux disease with esophagitis without hemorrhage Take 1 Tablet by mouth in the morning. 90 Tablet 09/05/19 24 6:32 AM EDT 023 Active Fluticasone Propionate 50 MCG/ACT Nasal Suspension (Flonase)Indicatio ns:LRTI (lower respiratory tract infection),Moderat e persistent asthma with acute exacerbation,Acute URI Administer 2 Sprays into each nostril in the morning and 2 Sprays before bedtime. 48 g 3 09/17/19 24 3:16 PM EDT 023 Active Methscopolamine [place] 2.5 MG Oral TabletIndications: Irritable bowel syndrome with diarrhea TAKE 1 TAB UP TO 3 TIMES DAILY NEEDED FOR ABDOMINAL CRAMPS & DIARRHEA, 270 Tablet 1 10/28/19 24 5:56 PM EDT 023 Active Metoprolol Succinate ER [...] 09/04/19 24 5:45 PM EDT 023 Active High[employer]s System w/Device Kit USE 1 DEVICE DIRECTED EVERY EVENING. UP TO 4 TIMES A DAY TO CHECK BLOOD GLUCOSE E11.9 023 Active Dexcom G7 Assistant Principal Device Use as directed. Active Dexcom G7 [...] g 4 09/19/19 24 2:06 PM EDT Active Calcitonin ([place]) 200 UNIT/ACT Nasal Solution Administer 1 [place] into one nostril in the morning. alternate nostrils.. 3 mL Active buPROPion HCl ER (SR) 100 MG Oral Tablet Extended Release 12 Hour (Wellbutrin SR) Take 1 Tablet by mouth in the morning. Active Diphenoxylate-Atro pine 2.5-0.025 MG Oral Tablet (Lomotil)Indicatio ns:Irritable bowel syndrome with diarrhea TAKE 2 TABLETS BY MOUTH EVERY 6 HOURS NEEDED FOR DIARRHEA. 30 Tablet Active Ozempic (1 MG/DOSE) 4 MG/3ML Subcutaneous Solution Pen-injector (Semaglutide (1 MG/DOSE)) Inject 1 mg under the skin once a week. Obtaining from [employer] Active NovoLOG FlexPen 100 UNIT/ML Subcutaneous Solution Pen-injector (insulin aspart) Inject under the skin three times a day with meals. 5 units before breakfast, 2 units with lunch and 2 units with supper + CF of 1:50 over 120 [when off ozempic] 4 units before breakfast [when taking ozempic] Obtaining from [employer] Active Tresiba FlexTouch 200 UNIT/ML Subcutaneous Solution Pen-injector (Insulin Degludec) Inject 16 Units under the skin in the morning. Obtaining from [employer]. Active Pantoprazole Sodium 40 MG Oral Tablet [...] and 4 Capsules before bedtime. 40 Capsule 11/19/2 024 Active Aspirin 81 MG Oral Tablet [...] THE MORNING 90 Tablet 3 024 Active Aspirin 81 MG Oral Tablet [...] 24 4:37 PM EDT 023 2023 Discontinued Hospital, Clinic, or Other Facility Administered Medication Ordered Dose Route Frequency Start Date End Date Status albuterol sulfate (PROVENTIL) (2.5 MG/3ML) 0.083% inhalation solution 2.5 mgIndications:Moderate persistent asthma without complication 2.5 mg NEBULIZER Q4H PRN 08/13/2018 Active documented as of this encounter (statuses as of 05/02/2024) Active Problems Patient Care Coordination No te [...] as of this encounter (statuses as of 05/02/2024) Resolved Problems Problem Noted Date Diagnosed Date [...] o Other: toujeo DM Secondary Prevention o CALRITA Inhibitor / ARB o Moderate-High Intensity Statin [...] AGREEMENT 06/04/2014 Overview (06/04/2014): Signed 06/04/2014 Pranav Sacnhez MD [facility] Pharmacy [place] Spinal pain 06/04/2014 02/02/2017 Type 2 diabetes [...] as of this encounter (statuses as of 05/02/2024) Immunizations Name Administration Dates Next Due COVID-19 mRNA, LNP-s, No Pre serve, 2-Dose Series (Ala-Septic) 09/09/2020,08/19/2020 Covid-19, Mrna, Lnp-s, Pf, B ivalent, [...] encounter Miscellaneous Notes * Telephone Encounter - Valente Valentin RPh - 05/02/2024 12:05 PM ESTSigned Prescriptions: Disp Refills Aspirin 81 MG Oral Tablet Chewable (Aspiri*90 Tab*3 Sig: CHEW 1 TABLET BY MOUTH EVERY DAYAuthorizing Provider: JESSICA ASENCIO User: VALENTE VALENTIN Atorvastatin Calcium 40 MG Oral Tablet (Li*90 Tab*3 Sig: TAKE 1 TABLET BY MOUTH EVERY DAY IN THE MORNINGAuthorizing Provider: JESSICA ASENCIO User: VALENTE VALENTIN documented in this encounter Plan of Treatment Upcoming Encounters Date Type Department Care Team (Late st Contact Info) Description 05/04/2024 2:00 PM EST Office Visit Hematology/Oncology [facility]y [facility] [place] [address] [place] [phone] Henok Stauffer MD [address] [place] [address] 05/14/2024 2:30 PM EST Office Visit Pharmacy, [facility] [address] [place] [phone] [facility] [address] [place] [address] 11/24/2024 2:40 PM EDT Office Visit Nephrology, [facility] [address] [place] [address] Eric Day MD [address] [place] [address] 03/19/2025 1:00 PM EDT Office Visit Ophthalmology, [place] [address] [place] [address] Ernie Rivers DO [address] [place] [address] Scheduled Procedures Name Priority Associated Diagnoses Date/Ti [...] 03/02/2024, 09/09/2020, 08/19/2020 CKD PHOS USE SMARTSET 46203 09/16/202408/26, 06/18/2023, 06/06/2023, Additional history exists GFR 09/23/2024 03/25/2024, 02/25, 01/06/2024, Additional history exists HbA1c 09/23/2024 03/25/2024, 08/26, 04/24/2023, Additional history exists Diabetic Foot Exam 10/02/2024 10/03/2023, 1 07/24/2019, 04/06/2019, Additional history exists Diabetic Eye Exam 03/05/2025 03/05/2024, , 03/05/2024, Additional history exists Mammogram 03/05/2025 03/05/2024, 07/2022, 02/26/2023, Additional history exists CKD HGB USE SMARTSET 34435 03/25/202503/25, 03/25/2024, 03/16/2024, Additional history exists Albumin/Creatinine [...] Documents on File Type Date Recorded Patient Human Factors Ergonomist Expl anation POL 10/20/2021 [place] [facility] [...] Power of Attor buddy? No Care Teams Pig Machine Operator Relationship Specialty Start Date End Date Jessica Asencio DO [facility] [place] [address] PCP - General Family Medicine 01/07/18 documented as of this encounter
--- OUTSIDE RECORDS SUMMARY | 2024-09-21 22:43 | External Medical Summary | Summary of Care ---
Author Name Unknown Organization [facility] Address [address] [place] [address] Phone [phone] Care Team Providers Care Metal Mixer Name Role Phone Chris Asencio DO Primary Care Provider Reason for Visit * Reason Onset Date Comments Advice 02/06/2024 Encounter Details Date Type Department Care Team (Late st Contact Info) Description 02/06/2024 Telephone Family Practice [facility] [address] [place] [address] Chris Asencio DO [address] [place] [address] Advice Allergies Active Allergy Reactions Criticality Noted [...] as of this encounter (statuses as of 05/07/2024) Medications Spacer/Aero-Holdin socorro Singh DEVIIndications:Mo derate persistent [...] 09/04/19 24 5:45 PM EDT 023 Active Handpressions System w/Device Kit USE 1 DEVICE DIRECTED EVERY EVENING. UP TO 4 TIMES A DAY TO CHECK BLOOD GLUCOSE E11.9 023 Active Dexcom G7 Manufacturer Device Use as directed. Active Dexcom G7 [...] 24 2:06 PM EDT 024 Active Calcitonin ([place]) 200 UNIT/ACT Nasal Solution Administer 1 [place] into one nostril in the morning. alternate nostrils.. 3 mL 11 2 024 Active buPROPion HCl ER (SR) 100 [...] the skin once a week. Obtaining from [employer] Active NovoLOG FlexPen 100 UNIT/ML Subcutaneous Solution Pen-injector (insulin aspart) Inject under the skin three times a day with meals. 5 units before breakfast, 2 units with lunch and 2 units with supper + CF of 1:50 over 120 [when off ozempic] 4 units before breakfast [when taking ozempic] Obtaining from [employer] Active Tresiba FlexTouch 200 UNIT/ML Subcutaneous Solution Pen-injector (Insulin Degludec) Inject 16 Units under the skin in the morning. Obtaining from [employer]. Active Aspirin 81 MG Oral Tablet Chewable (Aspirin Low Dose)Indications:T ype 2 diabetes mellitus with diabetic nephropathy, with long-term current use of insulin (HCC) CHEW 1 TABLET BY MOUTH EVERY DAY 90 Tablet 3 11/01/19 24 5:40 PM EDT 023 2023 Discontinued Atorvastatin Calcium 40 MG Oral Tablet (Lipitor)Ap ns:Dyslipidemia, goal LDL below 70 TAKE 1 TABLET BY MOUTH EVERY DAY IN THE MORNING 90 Tablet 3 09/03/19 24 4:37 PM EDT 023 2023 Discontinued Methscopolamine [place] 2.5 MG Oral TabletIndications: Irritable bowel syndrome [...] as of this encounter (statuses as of 05/07/2024) Active Problems Patient Care Coordination No te [...] as of this encounter (statuses as of 05/07/2024) Resolved Problems Problem Noted Date Diagnosed Date [...] (06/04/2014): Signed 06/04/2014 Pranav Sanchez MD [facility] Pharmacy [place] Spinal pain 06/04/2014 02/02/2017 Type 2 diabetes [...] as of this encounter (statuses as of 05/07/2024) Immunizations Name Administration Dates Next Due COVID-19 mRNA, LNP-s, No Pre serve, 2-Dose Series (LoveThatFit) 09/09/2020,08/19/2020 Pneumococcal Conjugate Vacc, 13 Valent (Prevnar) [...] Influenza, Quadriva lent, No Preserve, IM 03/04/2020,02/25/2020,04/16/2016 TD, Preservative Free 04/16/2016 TDAP, Age 9 [...] Telephone Encounter - Misti Alcaraz LPN - 02/06/2024 12:03 PM EDT Pt calling to give an update on swelled of leg since increase of lasix. Lasix has helped. no swelling no discoloration and veins are not engorged. Also she increased her tylenol as directed and pain has resolved. She is feeling so much better. documented in this encounter Plan of Treatment Upcoming Encounters Date Type Department Care Team (Late st Contact Info) Description 05/14/2024 2:30 PM EST Office Visit [facility], [address] [facility] [place] [phone] [facility] [address] [facility] [place] [address] 11/24/2024 2:40 PM EDT Office Visit Nephrology, [facility]y Calderon [address] [place] [address] Eric Day MD [address] [place] [address] 03/19/2025 1:00 PM EDT Office Visit Ophthalmology, [place] [address] [address] Ernie Rivers DO [address] [place] [place] [address] Scheduled Procedures Name Priority Associated Diagnoses Date/Ti [...] 03/02/2024, 09/09/2020, 08/19/2020 CKD PHOS USE SMARTSET 60245 09/16/202408/26, 06/18/2023, 06/06/2023, Additional history exists GFR 09/23/2024 03/25/2024, 02/25, 01/06/2024, Additional history exists HbA1c 09/23/2024 03/25/2024, 08/26, 04/24/2023, Additional history exists Diabetic Foot Exam 10/02/2024 10/03/2023, 1 07/24/2019, 04/06/2019, Additional history exists Diabetic Eye Exam 03/05/2025 03/05/2024, , 03/05/2024, Additional history exists Mammogram 03/05/2025 03/05/2024, 07/2022, 02/26/2023, Additional history exists CKD HGB USE SMARTSET 94666 03/25/202503/25, 03/25/2024, 03/16/2024, Additional history exists Albumin/Creatinine [...] Documents on File Type Date Recorded Patient Driver Medic Expl anation POLST 10/20/2021 [place] OR [facility] FOR [...] of Attor buddy? No Care Teams Metal Mixer Relationship Specialty Start Date End Date Chris Asencio DO [address] [address] PCP - General Family Medicine 01/07/18 documented as of this encounter
--- OUTSIDE RECORDS SUMMARY | 2024-09-21 22:43 | External Medical Summary | Summary of Care ---
Author Name Unknown Organization [facility] Address [address] [place] [address] Phone [phone] Care Team Providers Care Body Technician Name Role Phone Jessica Asencio DO Primary Care Provider Reason for Visit * Reason Comments eRx-Medication Refill Encounter Details Date Type Department Care Team (Late st Contact Info) Description 05/11/2024 Refill Family Practice [facility] [address] [facility] [place] [address] Jessica Asencio DO [address] [place] [address] Vaginal atrophy Allergies Active Allergy Reactions Criticality Noted Date [...] this encounter (statuses as of 05/12/2024) Medications Spacer/Aero-Holdin socorro Singh DEVIIndications:Mo derate persistent [...] 09/04/19 24 5:45 PM EDT 023 Active StyleTech System w/Device Kit USE 1 DEVICE DIRECTED EVERY EVENING. UP TO 4 TIMES A DAY TO CHECK BLOOD GLUCOSE E11.9 023 Active DexBuildersCloud G7 Manager Erp Device Use as directed. Active Dexcom G7 [...] 24 2:06 PM EDT 024 Active Calcitonin ([place]) 200 UNIT/ACT Nasal Solution Administer 1 [place] into one nostril in the morning. alternate [...] the skin once a week. Obtaining from [employer] Active NovoLOG FlexPen 100 UNIT/ML Subcutaneous Solution Pen-injector (insulin aspart) Inject under the skin three times a day with meals. 5 units before breakfast, 2 units with lunch and 2 units with supper + CF of 1:50 over 120 [when off ozempic] 4 units before breakfast [when taking ozempic] Obtaining from Prof[employer] Active Tresiba FlexTouch 200 UNIT/ML Subcutaneous Solution Pen-injector (Insulin Degludec) Inject 16 Units under the skin in the morning. Obtaining from Profyle. Active Pantoprazole Sodium 40 MG Oral Tablet [...] Capsules before bedtime. 40 Capsule Active Methscopolamine [place] 2.5 MG Oral TabletIndications: Irritable bowel syndrome [...] PER WEEK 30 g 5 024 Active Estrogens Conjugated 0.625 MG/GM Vaginal Cream (Premarin)Indicati ons:Vaginal atrophy Administer 0.5 g into the vagina at bedtime. Do this 3 evenings per week 30 g 5 07/13/19 24 7:57 AM EST 023 2023 Discontinued Hospital, Clinic, or Other [...] Overview (06/04/2014): Signed 06/04/2014 Pranav Sanchez MD [facility] Pharmacy [place] Spinal pain 06/04/2014 02/02/2017 Type 2 diabetes [...] mRNA, LNP-s, No Pre serve, 2-Dose Series (TruckTrack) 09/09/2020,08/19/2020 Covid-19, Mrna, Lnp-s, Pf, B ivalent, 30 Mcg, IM, 12 yrs and above (TruckTrack) 03/02/2024 Pneumococcal Conjugate Vacc, 13 Valent (Prevnar) [...] Telephone Encounter - Jessica Asencio DO - 05/12/2024 11:23 AM EST Signed Prescriptions: Disp Refills Premarin 0.625 MG/GM Vaginal Cream (Estrog*30 g 5 Sig: ADMINISTER 0.5 G INTO THE VAGINA AT BEDTIME. DO THIS 3 EVENINGS PER WEEK Authorizing Provider: JESSICA ASENCIO * Telephone Encounter - Madison Jones LPN - 05/12/2024 9:10 AM ESTPending Prescriptions: Disp Refills Premarin 0.625 MG/GM Vaginal Cream [Pharma*30 g 5 Sig: ADMINISTER 0.5 G INTO THE VAGINA AT BEDTIME. DO THIS 3 EVENINGS PER WEEK * Telephone Encounter - Madison Jones LPN - 05/12/2024 9:09 AM EST Did you pend patient's preferred pharmacy and medication before forwarding?yes Pharmacy: [id number] [address] [place] [address] Pending Prescriptions: Disp Refills Premarin 0.625 MG/GM Vaginal Cream (Estro*30 g 5 Sig: ADMINISTER 0.5 G INTO THE VAGINA AT BEDTIME. DO THIS 3 EVENINGS PER WEEK Last Visit: 04/14/2024 (in office), 06/30/2021 (telemedicine) [...] * Telephone Encounter - Krzysztof Liriano - 05/11/2024 7:26 PM ESTPending Prescriptions: Disp Refills Premarin 0.625 MG/GM Vaginal Cream [Pharma*30 g 5 Sig: ADMINISTER 0.5 G INTO THE VAGINA AT BEDTIME. DO THIS 3 EVENINGS PER WEEK documented in this encounter Plan of Treatment Upcoming Encounters Date Type Department Care Team (Late st Contact Info) Description 05/14/2024 2:30 PM EST [facility] [address] [place] [phone] [facility] [address] [place] [place] [address] 05/25/2024 8:00 AM EST Office Visit Hematology/Oncology [facility] [place] [address] [facility] [place] [phone] Henok Stauffer MD 200 [facility] [place] [address] 11/24/2024 2:40 PM EDT Office Visit Nephrology, [facility] [address] [facility] [place] [address] Eric Day MD 200 [facility] [place] [address] 03/19/2025 1:00 PM EDT Office Visit Ophthalmology, [place] [address] [place] [address] Ernie Rivers DO [address] [place] [address] Scheduled Procedures Name Priority Associated Diagnoses Date/Ti [...] 03/02/2024, 09/09/2020, 08/19/2020 CKD PHOS USE SMARTSET 27713 09/16/202408/26, 06/18/2023, 06/06/2023, Additional history exists GFR 09/23/2024 03/25/2024, 02/25, 01/06/2024, Additional history exists HbA1c 09/23/2024 03/25/2024, 08/26, 04/24/2023, Additional history exists Diabetic Foot Exam 10/02/2024 10/03/2023, 1 07/24/2019, 04/06/2019, Additional history exists Diabetic Eye Exam 03/05/2025 03/05/2024, , 03/05/2024, Additional history exists Mammogram 03/05/2025 03/05/2024, 07/2022, 02/26/2023, Additional history exists CKD HGB USE SMARTSET 78096 03/25/202503/25, 03/25/2024, 03/16/2024, Additional history exists Albumin/Creatinine [...] disease (HCC) Vaginal atrophy Postmenopausal atrophic vaginitis documented in this encounter Advance Directives Documents on File Type Date Recorded 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 No Care Teams Body Technician Relationship Specialty Start Date End Date Jessica Asencio DO [address] [address] PCP - General Family Medicine 01/07/18 documented as of this encounter
--- OUTSIDE RECORDS SUMMARY | 2024-09-21 22:44 | External Medical Summary | Summary of Care ---
Author Name Unknown Organization [facility] Address [address] [place] [address] Phone [phone] Care Team Providers Care Cnc Operator Machinist Name Role Phone Chris Asencio DO Primary Care Provider Reason for Visit * Reason Comments Return Visit Pt here for 6 mo ret urn. Productive cough with yellow to green phlegm for the past 6 days. Body aches present, chills present. Pt had + home Covid test last night, rechecked right after and it tested -. Pt has approx 3 days left on Xifaxan. Encounter Details Date Type Department Care Team (Latest Contact Info) Description 04/14/2024 2:20 PM EST Office Visit Family Practice [facility] [address] [facility] [place] [address] Chris Asencio DO [address] [facility] [place] [address] Person under investigation for COVID-19*; Type 2 diabetes mellitus with both eyes affected by mild nonproliferative retinopathy without macular edema, with long-term current use of insulin ([facility]); Type 2 diabetes mellitus with stage 3a chronic kidney disease, with long-term current use of insulin ([facility]); Pneumonia due to suspected gram-negative bacteria Allergies Active Allergy Reactions Criticality Noted Date [...] as of this encounter (statuses as of 04/14/2024) Medications Spacer/Aero-Holding Chambers DEVIIndications:Mod erate persistent asthma [...] Tablet 3 4 5:40 PM EDT 05/09/20 Active Additional Information Patient taking differently: Daily(AM), CHEW 1 TABLET BY MOUTH EVERY DAY, Reported on 04/06/2024 Atorvastatin Calcium 40 MG Oral Tablet (Lipitor)Indication s:Dyslipidemia, goal LDL below 70 TAKE 1 TABLET BY MOUTH EVERY DAY IN THE MORNING 90 Tablet 3 4 4:37 PM EDT 05/09/20 Active BD Pen Needle Mini U/F 31G [...] g 5 4 7:57 AM EST 05/09/20 23 Active Famotidine 40 MG Oral [...] 3:16 PM EDT 05/09/20 23 Active Methscopolamine [place] 2.5 MG Oral TabletIndications:I rritable bowel syndrome [...] 4 5:45 PM EDT 05/09/20 23 Active PO-MO Flex System w/Device Kit USE 1 DEVICE DIRECTED EVERY EVENING. UP TO 4 TIMES A DAY TO CHECK BLOOD GLUCOSE E11.9 04/17/20 23 Active Dexcom G7 Supervisor Precision Optical Elements Device Use as directed. Act vlad Dexcom [...] 2:06 PM EDT 09/04/19 24 Active Calcitonin (Ganado) 200 UNIT/ACT Nasal Solution Administer 1 [place] into one nostril in the morning. alternate [...] the skin once a week. Obtaining from [employer] PAP Active NovoLOG FlexPen 100 UNIT/ML Subcutaneous Solution Pen-injector (insulin aspart) Inject under the skin three times a day with meals. 5 units before breakfast, 2 units with lunch and 2 units with supper + CF of 1:50 over 120 [when off ozempic] 4 units before breakfast [when taking ozempic] Obtaining from [employer] Active Tresiba FlexTouch 200 UNIT/ML Subcutaneous Solution Pen-injector (Insulin Degludec) Inject 16 Units under the skin in the morning. Obtaining from [employer]. Active Pantoprazole Sodium 40 MG Oral Tablet [...] GAIN. 180 Tablet 11 02/25/20 24 Active predniSONE 20 MG Oral Tablet (Deltasone)Indicati ons:Person under investigation for COVID-19,Pneumonia due to suspected gram-negative bacteria Take 2 Tablets by mouth in the morning for 5 days. 10 Tablet 04/14/20 24 024 Active Azithromycin 250 MG Oral Tablet (Zithromax)Indicati ons:Person under investigation for COVID-19,Pneumonia due to suspected gram-negative bacteria Take 2 tabs by mouth on the first day, then 1 tab daily on days two through five 6 Tablet 04/14/20 24 024 Active Molnupiravir 200 MG Oral CapsuleIndications: Person under investigation for COVID-19,Pneumonia due to suspected gram-negative bacteria Take 4 Capsules by mouth in the morning and 4 Capsules before bedtime. 40 Capsule 04/14/20 Active Hospital, Clinic, or Other Facility Administered Medication Ordered Dose Route Frequency Start Date End Date Status albuterol sulfate (PROVENTIL) (2.5 MG/3ML) 0.083% inhalation solution 2.5 mgIndications:Moderate persistent asthma without complication 2.5 mg NEBULIZER Q4H PRN 08/13/2018 Active documented as of this encounter (statuses as of 04/14/2024) Active Problems Patient Care Coordination No te [...] as of this encounter (statuses as of 04/14/2024) Resolved Problems Problem Noted Date Diagnosed Date [...] Sanchez MD [facility] [place] Spinal pain 06/04/2014 02/02/2017 Type 2 diabetes [...] as of this encounter (statuses as of 04/14/2024) Immunizations Name Administration Dates Next Due COVID-19 mRNA, LNP-s, No Pre serve, 2-Dose Series (MJJ Sales) 09/09/2020,08/19/2020 Covid-19, Mrna, Lnp-s, Pf, B ivalent, [...] Sign Reading Time Taken Comments Blood Pressure 126/80 04/14/2024 2:06 PM EST Pulse 71 04/14/2024 2:06 PM EST Temperature 35.7 °C (96.2 °F) 04/14/2024 2 :06 PM EST Respiratory Rate 24 04/14/2024 2:06 PM EST Oxygen Saturation 97% 04/14/2024 2:0 6 PM EST Inhaled Oxygen Concentration - - Weight 111.6 kg (246 lb) 04/14/2024 2:0 6 PM EST pt reports this am Height - - Body Mass Index 36.33 09/25/2023 11:34 AM EDT documented in this encounter Progress Notes * Chris Asencio, DO - 04/14/2024 2:19 PM EST Nursing Notes: Michelle Marion LPN 04/14/24 1413 Signed The patient has been properly identified by confirmation of name and date of . Chief Complaint Patient presents with Return Visit Pt here for 6 mo return. Productive cough with yellow to green phlegm for the past 6 days. Body aches present, chills present. Pt had + home Covid test last night, rechecked right after and it tested-. Pt has approx 3 days left on Xifaxan. ASSESSMENT/PLAN: 1. Person under investigation for COVID-19 Will treat impirically given expressed severity of illness, will await return of COVID testing/flu Ok to stop anti-viral if negative, continue abx and pred - INFLUENZA A/B RSV SARS-COV2,PCR; Future - INFLUENZA A/B RSV SARS-COV2,PCR - predniSONE 20 MG Oral Tablet (Deltasone); Take 2 Tablets by mouth in the morning for 5 days. Dispense: 10 Tablet; Refill: 0 - Azithromycin 250 MG Oral Tablet (Zithromax); Take 2 tabs by mouth on the first day, then 1 tab daily on days two through five Dispense: 6 Tablet; Refill: 0 - Molnupiravir 200 MG Oral Capsule; Take 4 Capsules by mouth in the morning and 4 Capsules before bedtime. Dispense: 40 Capsule; Refill: 0 2. Type 2 diabetes mellitus with both eyes affected by mild nonproliferative retinopathy without macular edema, with long-term current use of insulin (HCC) Stable currently 3. Type 2 diabetes mellitus with stage 3a chronic kidney disease, with long-term current use of insulin (HCC) stable 4. Pneumonia due to suspected gram-negative bacteria - predniSONE 20 MG Oral Tablet (Deltasone); Take 2 Tablets by mouth in the morning for 5 days. Dispense: 10 Tablet; Refill: 0 - Azithromycin 250 MG Oral Tablet (Zithromax); Take 2 tabs by mouth on the first day, then 1 tab daily on days two through five Dispense: 6 Tablet; Refill: 0 - Molnupiravir 200 MG Oral Capsule; Take 4 Capsules by mouth in the morning and 4 Capsules before bedtime. Dispense: 40 Capsule; Refill: 0 HPI: Liane Cory Alejandre is a 73 year old female who presents to the clinic with worsening cough, SOB, fatigue, headache, malaise and green sputum that she continues to cough up. ROS: CONSTITUTIONAL: no weight loss, no fevers, no sweats, +malaise HEENT: no change in vision or hearing, + congestion, + sore throat CARDIAC: no chest pain, no palpitations, no orthopnea, no WILLIAM, no syncope RESP: +cough, +wheezing and significant SOB GI: no pain, no NVDC, no melena/hematochezia SKIN: no rashes MSK: no significant joint or muscle pain and no swelling : no dysuria or discharge NEURO: no memory loss, no numbness PSYCH: no SI/HI PHYSICAL EXAMINATION: BP 126/80 | Pulse 71 | Temp 96.2 °F (35.7 °C) | Resp 24 | Wt 246 lb (111.6 kg) Comment: pt reports this am | SpO2 97% | BMI 36.33 kg/m² | BSA 2.33 m² GENERAL: alert, healthy, mild distress, well nourished and well developed HEAD: normocephalic, atraumatic EYES: PERRL, EOMI, Conjunctiva are pink and non-injected, sclera clear EARS: External ears normal, Canals clear, TM's Normal NOSE: + mucosal erythema, + mucosal edema, + purulent discharge OROPHARYNX: no exudate, + erythema, lips, buccal mucosa, and tongue normal, mucous membranes are moist and dentition normal NECK: supple, + anterior cervical adenopathy, thyroid normal size, non-tender, without nodularity HEART: regular rate & rhythm, no murmurs and no gallops LUNGS: +wheezing bilaterally with decreased air movement SKIN: skin color, texture, turgor are normal, no rashes or significant lesions Patient Active Problem List Diagnosis Irritable bowel syndrome Obesity, Class II, BMI 35-39.9, isolated (see actual BMI) Gastroesophageal reflux disease with esophagitis without hemorrhage HTN, goal below 130/80 Moderate persistent asthma without complication Restless legs syndrome Primary pulmonary hypertension (HCC) Type 2 diabetes mellitus with hemoglobin A1c goal of less than 8.0% ([facility]) KATERIN (obstructive sleep apnea) Medical marijuana use Persistent insomnia PVC's (premature ventricular contractions) PTSD (post-traumatic stress disorder) Hypertensive kidney disease with stage 3b chronic kidney disease (HCC) Anemia, chronic disease Depression with anxiety Type 2 diabetes mellitus with stage 3a chronic kidney disease, with long-term current use of insulin ([facility]) Osteoarthritis of spine with radiculopathy, 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, with long-term current use of insulin ([facility]) Type 2 diabetes mellitus with diabetic cataract, with long-term current use of insulin ([facility]) Past Medical History: Diagnosis Date Acute respiratory disease due to COVID-19 virus 09/22/2021 Asthma dependent on inhaled steroids Asthma exacerbation Atypical ductal hyperplasia of breast 02/14/2022 Depression with anxiety 09/25/2023 Dyslipidemia, goal to be determined KARI (generalized [...] 12/07/2014 ischemic colitis, hyperplastic polyp, repeat 5 yrs/[facility] COLONOSCOPY, DIAGNOSTIC (RECTUM) 03/17/2021 poor prep/sigmoid diverticulosis/biopsies normal/recall 5 years/COLONOSCOPY FLEXIBLE PROXIMAL DIAGNOSTIC performed by Brittany Blackman MD at ENDOSCOPY [facility] EGD, FLEXIBLE, DIAGNOSTIC N/A 12/17/2022 esophageal plaques, suspicious for candidias/diffuse gastritis/biopsies confirm casie/EGD/MN EXC BREAST LESION RADMARK Right 03/30/2022 EXCISION OF BREAST LESION RADIOLOGICAL MARKER performed by Lila Mora MD at OR [facility] KNEE ARTHROSCOPY, DIAGNOSTIC 1989 Knee Arthroscopy REMOVE GALLBLADDER 1974 Cholecystectomy, Open TOTAL ABD HYSTERECTOMY W/WO REMOVAL OF TUBE(S) 1986 for endometriosis Current Outpatient Medications Medication Sig Dispense Refill predniSONE 20 MG Oral Tablet (Deltasone) Take 2 Tablets by mouth in the morning for 5 days. 10 Tablet 0 Azithromycin 250 MG Oral Tablet (Zithromax) Take 2 tabs by mouth on the first day, then 1 tab dailyon days two through five 6 Tablet 0 Molnupiravir 200 MG Oral Capsule Take 4 Capsules by mouth in the morning and 4 Capsules before bedtime. 40 Capsule 0 Spacer/Aero-Holding Chambers LAURA Use with inhaler. 1 Device 0 multivitamin (MVI) Tablet TAKE 1 TABLET BY MOUTH EVERY DAY FOR SUPPLEMENT 1 ONETOUCH DELICA LANCETS FINE MISC Use up to four times a day as directed DX E11.9 400 Each 3 Doxepin HCl 150 MG Oral Capsule Take 1 Capsule by mouth at bedtime. Systane Complete 0.6 % Ophthalmic Solution (Propylene Glycol) Instill 1 Drop into both eyes in the morning and 1 Drop at noon and 1 Drop in the evening and 1 Drop before bedtime. Proventil HFA 108 (90 Base) MCG/ACT Inhalation Aerosol Solution Inhale 1-2 Puffs by mouth 4 times aday as needed for Shortness of Breath or Wheezing. As needed EpiPen 2-Ronni 0.3 MG/0.3ML Injection Solution Auto-injector For a severe reaction: Place orange end against the outer thigh, press firmly, hold in place for 10 seconds and go to the Emergency room. 2 Each 3 Vitamin C 500 MG Oral Capsule Take 1 Capsule by mouth in the morning and 1 Capsule before bedtime. OneTouch Verio In Vitro Strip (Glucose Blood) Use up to 3 times a day E11.9 400 Strip 5 OneTouch UltraSoft Lancets Use as directed 4 times a day. Use up to four times a day as directed tocheck blood glucose E 11.9 400 Each 5 Aspirin 81 MG Oral Tablet Chewable (Aspirin Low Dose) CHEW 1 TABLET BY MOUTH EVERY DAY (Patient taking differently: daily. CHEW 1 TABLET BY MOUTH EVERY DAY) 90 Tablet 3 Atorvastatin Calcium 40 MG Oral [...] 1 VIAL BEFORE BEDTIME 360 mL 3 Estrogens Conjugated 0.625 MG/GM Vaginal Cream (Premarin) Administer 0.5 g into the vagina at bedtime. Do this 3 evenings per week 30 g 5 Famotidine 40 MG Oral Tablet (Pepcid) Take 1 Tablet by mouth in the morning. 90 Tablet 3 Fluticasone Propionate 50 MCG/ACT Nasal Suspension (Flonase) Administer 2 Sprays into each nostril in the morning and 2 Sprays before bedtime. 48 g 3 Methscopolamine [place] 2.5 MG Oral Tablet TAKE 1 TAB UP TO 3 TIMES DAILY NEEDED FOR ABDOMINAL CRAMPS & DIARRHEA, 270 Tablet 1 Metoprolol Succinate ER 25 MG Oral Tablet Extended Release 24 Hour (toPROL XL) TAKE 1 TABlet BY MOUTH EVERY MORNING AND ONE-HALF TABlet AT BEDTIME. 135 Tablet 3 Montelukast Sodium 10 MG Oral Tablet (Singulair) Take 1 Tablet by mouth in the morning. 90 Tablet 3 Pramipexole Dihydrochloride 1 MG Oral Tablet (Mirapex) Take 1 Tablet by mouth at bedtime. 90 Tablet3 Galaxy Digital System w/Device Kit USE 1 DEVICE DIRECTED EVERY EVENING. UP TO 4 TIMES A DAYTO CHECK BLOOD GLUCOSE E11.9 Dexcom G7 Supervisor Precision Optical Elements Device Use as directed. Dexcom G7 Sensor Use as directed. Triamcinolone Acetonide 0.1 % External Ointment (Aristocort) Apply topically to affected area 2 times a day 80 g 5 Ferrous Gluconate 240 (27 Fe) MG Oral Tablet (Ferate) TAKE BY MOUTH 1 TABLET DAILY . 90 Tablet 3 clonazePAM 0.5 MG Oral Tablet (KlonoPIN) Take 1 Tablet by mouth 3 times a day as needed. Wyrpqrl-Dfkuevgyhpilvdf-Ruop 650-20-5.5 MG-MCG-MG Oral Tablet Chewable Take 1 Tablet by mouth in the morning and 1 Tablet before bedtime. Acetaminophen 500 MG Oral Tablet (Tylenol) Take 2 Tablets by mouth 2 times a day. Diclofenac Sodium 1 % External Gel (Voltaren) PLACE 4 GRAMS TOPICALLY ON THE SKIN TWICE DAILY DIRECTED 300 g 4 Calcitonin (Ganado) 200 UNIT/ACT Nasal Solution Administer 1 [place] into one nostril in the morning.alternate nostrils.. 3 mL 11 buPROPion HCl ER (SR) 100 MG Oral Tablet Extended Release 12 Hour (Wellbutrin SR) Take 1 Tablet by mouth in the morning. Diphenoxylate-Atropine 2.5-0.025 MG Oral Tablet (Lomotil) TAKE 2 TABLETS BY MOUTH EVERY 6 HOURS NEEDED FOR DIARRHEA. 30 Tablet 11 Ozempic (1 MG/DOSE) 4 MG/3ML Subcutaneous Solution Pen-injector (Semaglutide (1 MG/DOSE)) Inject 1 mg under the skin once a week. Obtaining from [email or web address] PAP NovoLOG FlexPen 100 UNIT/ML Subcutaneous Solution Pen-injector (insulin aspart) Inject under the skin three times a day with meals. 5 units before breakfast, 2 units with lunch and 2 units with supper + CF of 1:50 over 120 [when off ozempic] 4 units before breakfast [when taking ozempic] Obtaining from [employer] Tresiba FlexTouch 200 UNIT/ML Subcutaneous Solution Pen-injector (Insulin Degludec) Inject 16 Unitsunder the skin in the morning. Obtaining from [employer]. Pantoprazole Sodium 40 MG Oral Tablet Delayed Release (Protonix) TAKE 1 TABLET IN THE MORNING AND BEFORE BEDTIME 180 Tablet 3 Furosemide 40 MG Oral Tablet (Lasix) TAKE 1 TABLET BY MOUTH IN THE MORNING AND 1 TABLET BEFORE BEDTIME. FOR FLUID ACCUMULATION OR WEIGHT GAIN. 180 Tablet 11 Current Facility-Administered Medications Medication Dose Route Frequency Provider Last Rate Last Admin albuterol sulfate (PROVENTIL) (2.5 MG/3ML) 0.083% inhalation solution 2.5 mg 2.5 mg Nebulizer Q4H PRN Ernie Coker PA-C 2.5 mg at 08/22/18 9634 Review of patient's allergies indicates: Allergen Reactions [...] fatigue after medication. Melatonin Nervous , anxiety Chris Asencio DO [facility] [address] [facility] [place] [id number] (This note was completed using the dictation program Fluency Direct. As such, there may be misspellings, word substitutions, or other variations that should not change the essence of the clinical content of this encounter note.If there is need for further clarification, please direct questions to the provider listed above.) documented in this encounter Nursing Notes * Michelle Marion LPN - 04/14/2024 2:06 PM EST The patient has been properly identified by confirmation of name and date of . Chief Complaint Patient presents with Return Visit Pt here for 6 mo return. Productive cough with yellow to green phlegm for the past 6 days. Body aches present, chills present. Pt had + home Covid test last night, rechecked right after and it tested-. Pt has approx 3 days left on Xifaxan. documented in this encounter Plan of Treatment Upcoming Encounters Date Type Department Care Team (Late st Contact Info) Description 04/30/2024 1:30 PM EST Office Visit Orthopaedics [facility] [address] [facility] [place] [address] Ion Ortiz DO [address] [facility] [place] [address] 05/04/2024 2:00 PM EST Office Visit Hematology/Oncology [facility] [address] [place] [phone] Henok Stauffer MD [address] [facility] [place] [address] 05/14/2024 2:30 PM EST Office Visit Pharmacy, [place] [address] [place] [address] [place], [facility] [address] [place] [address] 11/24/2024 2:40 PM EDT Office Visit Nephrology, [facility] [address] [place] [address] Eric Day MD 200 [facility] [place] [address] 03/19/2025 1:00 PM EDT [facility] [place] [place] [address] Ernie Rivers DO 21 [facility] [place] [address] Pending Results Name Type Priority Associated Diagnoses Date /Time INFLUENZA A/B RSV SARS-COV2,PCR Lab Routine Person under investigation for COVID-19 04/14/2024 2:14 PM EST Scheduled Orders Name Type Priority Associated Diagnoses Orde r Schedule INFLUENZA A/B RSV SARS-COV2,PCR Lab Routine Person under investigation for COVID-19 Expected: 04/14/2024 (Approximate), Expires: 04/14/2025 Scheduled Procedures Name Priority Associated Diagnoses Date/Ti [...] 03/02/2024, 09/09/2020, 08/19/2020 CKD PHOS USE SMARTSET 20234 09/16/202408/26, 06/18/2023, 06/06/2023, Additional history exists GFR 09/23/2024 03/25/2024, 02/25, 01/06/2024, Additional history exists HbA1c 09/23/2024 03/25/2024, 08/26, 04/24/2023, Additional history exists Diabetic Foot Exam 10/02/2024 10/03/2023, 1 07/24/2019, 04/06/2019, Additional history exists Diabetic Eye Exam 03/05/2025 03/05/2024, , 03/05/2024, Additional history exists Mammogram 03/05/2025 03/05/2024, 07/2022, 02/26/2023, Additional history exists CKD HGB USE SMARTSET 94173 03/25/202503/25, 03/25/2024, 03/16/2024, Additional history exists Albumin/Creatinine [...] with stage 3b chronic kidney disease (HCC) Person under investigation for COVID-19- Primary Type 2 diabetes mellitus with both eyes affected by mild nonproliferative retinopathy without macular edema, with long-term current use of insulin (HCC) Type 2 diabetes mellitus with stage 3a chronic kidney disease, with long-term current use of insulin (HCC) Pneumonia due to suspected gram-negative bacteria documented in this encounter Advance Directives Documents on File Type Date Recorded 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 No Care Teams Cnc Operator Machinist Relationship Specialty Start Date End Date Chris Asencio DO [address] [place] [address] PCP - General Family Medicine 01/07/18 documented as of this encounter
--- OUTSIDE RECORDS SUMMARY | 2024-09-21 22:44 | External Medical Summary ---
Author Name Unknown Address Unknown Organization [id number] [place] [address] [place] [address] Laboratory Report Ordering Provider Test Date Status HARLEY LOPEZ 04/14/2024 14:14:44 Final Observation Date Value Abnormality Reference (Units ) Status SARS Coronavirus 2 04/14/2024 14:14:44 Negative N egative Final No SARS-CoV2 Coronavirus RNA detected by PCR (amplified probe).
This express test was developed and its performance characteristics determined by [facility]. It has not been cleared or approved by the U.S. Food and Drug Administration (FDA). FDA does not require this test to go thru premarket FDA review. This test is used for clinical purposes. It should not be regarded as investigational or for research. This laboratory is certified under the Clinical Laboratory Improvement Amendments (CLIA) as qualified to perform high complexity clinical laboratory testing.

This test is a nucleic acid amplification test (NAAT), a reverse transcriptase polymerase chain reaction (RT-PCR) test, or a Centers for Disease Control-acceptable equivalent. The test is performed in a high complexity Clinical Laboratory Improvement Amendments-(CLIA) certified laboratory. The test is acceptable for SARS-CoV-2 diagnosis, surveillance, and travel within the [place] and to most countries. Please check with local testing authorities about requirements before travel.

The validation of bronchial specimens, tracheal aspirates, and sputum for this assay was developed and performance characteristics determined by [facility]. The validation of alternate specimen types has not been cleared or approved by the U.S. Food and Drug Administration (FDA). It has been determined that such clearance is not necessary. Influenza virus A RNA [Prese nce] in Specimen by LINDA with probe detection 04/14/2024 14:14:44 Negative Negative Final No Influenza A RNA detected by PCR (amplified probe) Influenza virus B RNA [Prese nce] in Specimen by LINDA with probe detection 04/14/2024 14:14:44 Negative Negative Final No Influenza B RNA detected by PCR (amplified probe) Respiratory syncytial virus RNA [Identifier] in Specimen by LINDA with probe detection 04/14/2024 14:14:44 Negative Negative Final No Respiratory Syncytial Vir us RNA detected by PCR (amplified probe) [facility] [facility] [address]
--- OUTSIDE RECORDS SUMMARY | 2024-09-21 22:44 | External Medical Summary | Summary of Care ---
Author Name Unknown Organization [facility] Address [address] [place] [address] Phone [phone] Care Team Providers Care Environmental Studies Faculty Member Name Role Phone Chris Asencio Primary Care [...] 3:16 PM EDT 05/09/20 23 Active Methscopolamine Arminto 2.5 MG Oral TabletIndications:I rritable bowel syndrome [...] 4 5:45 PM EDT 05/09/20 23 Active AgreeYa Mobility - Onvelop Flex System w/Device Kit USE 1 DEVICE DIRECTED EVERY EVENING. UP TO 4 TIMES A DAY TO CHECK BLOOD GLUCOSE E11.9 04/17/20 23 Active Dexcom G7 Supervisor Fish Processing Device Use as directed. Act vlad Dexcom [...] 2:06 PM EDT 09/04/19 24 Active Calcitonin ([place]) 200 UNIT/ACT Nasal Solution Administer 1 [place] into one nostril in the morning. alternate [...] the skin once a week. Obtaining from Visuu Active NovoLOG FlexPen 100 UNIT/ML Subcutaneous Solution Pen-injector (insulin aspart) Inject under the skin three times a day with meals. 5 units before breakfast, 2 units with lunch and 2 units with supper + CF of 1:50 over 120 [when off ozempic] 4 units before breakfast [when taking ozempic] Obtaining from Visuu Active Tresiba FlexTouch 200 UNIT/ML Subcutaneous Solution Pen-injector (Insulin Degludec) Inject 16 Units under the skin in the morning. Obtaining from Visuu. Active Pantoprazole Sodium 40 MG Oral Tablet [...] Overview (06/04/2014): Signed 06/04/2014 Pranav Sanchez MD [facility] Pharmacy [place] Spinal pain 06/04/2014 02/02/2017 Type 2 [...] mRNA, LNP-s, No Pre serve, 2-Dose Series ([employer]) 09/09/2020,08/19/2020 Covid-19, Mrna, Lnp-s, Pf, B ivalent, 30 Mcg, IM, 12 yrs and above ([employer]unie) 03/02/2024 Pneumococcal Conjugate Vacc, 13 Valent (Prevnar) [...] 04/30/2024 1:30 PM EST Office Visit Orthopaedics [facility] [address] [place] [address] Ion Ortiz DO [address] [address] 05/04/2024 2:00 PM EST Office Visit Hematology/Oncology [facility] [place] [address] [place] [phone] Henok Stauffer MD [address] [place] [address] 05/14/2024 2:30 PM EST Office Visit Pharmacy, [address] [place] [phone] [facility] [address] [facility] [address] 11/24/2024 2:40 PM EDT Office Visit Nephrology, Misty Calderon [address] [place] [address] Eric Day MD 200 [facility] [place], [place] [address] 03/19/2025 1:00 PM EDT Office Visit Ophthalmology, [place] [address] [place] [place] [address] Ernie Rivers DO [address] [address] Scheduled Procedures Name Priority Associated Diagnoses Date/Ti [...] 03/02/2024, 09/09/2020, 08/19/2020 CKD PHOS USE SMARTSET 44299 09/16/202408/26, 06/18/2023, 06/06/2023, Additional history exists GFR 09/23/2024 03/25/2024, 02/25, 01/06/2024, Additional history exists HbA1c 09/23/2024 03/25/2024, 08/26, 04/24/2023, Additional history exists Diabetic Foot Exam 10/02/2024 10/03/2023, 1 07/24/2019, 04/06/2019, Additional history exists Diabetic Eye Exam 03/05/2025 03/05/2024, , 03/05/2024, Additional history exists Mammogram 03/05/2025 03/05/2024, 07/2022, 02/26/2023, Additional history exists CKD HGB USE SMARTSET 71784 03/25/202503/25, 03/25/2024, 03/16/2024, Additional history exists Albumin/Creatinine [...] File Type Date Recorded 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 No Care Teams Environmental Studies Faculty Member Relationship Specialty Start Date End Date Chris Asencio DO [address] [place] [address] PCP - General Family Medicine 01/07/18 documented as of this encounter
--- OUTSIDE RECORDS SUMMARY | 2024-09-21 22:44 | External Medical Summary | Summary of Care ---
Author Name Unknown Organization [facility] Address [address] [place] [address] Phone [phone] Care Team Providers Care Active Directory Engineer Name Role Phone Chris Asencio Primary Care [...] 3:16 PM EDT 05/09/20 23 Active Methscopolamine [place] 2.5 MG Oral TabletIndications:I rritable bowel syndrome [...] 4 5:45 PM EDT 05/09/20 23 Active Telnic Flex System w/Device Kit USE 1 DEVICE DIRECTED EVERY EVENING. UP TO 4 TIMES A DAY TO CHECK BLOOD GLUCOSE E11.9 04/17/20 23 Active Dexcom G7 Windows Technical Specialist Device Use as directed. Act vlad Dexcom [...] 2:06 PM EDT 09/04/19 24 Active Calcitonin ([place]) 200 UNIT/ACT Nasal Solution Administer 1 [place] into one nostril in the morning. alternate [...] the skin once a week. Obtaining from pluriSelect Active NovoLOG FlexPen 100 UNIT/ML Subcutaneous Solution Pen-injector (insulin aspart) Inject under the skin three times a day with meals. 5 units before breakfast, 2 units with lunch and 2 units with supper + CF of 1:50 over 120 [when off ozempic] 4 units before breakfast [when taking ozempic] Obtaining from pluriSelect Active Tresiba FlexTouch 200 UNIT/ML Subcutaneous Solution Pen-injector (Insulin Degludec) Inject 16 Units under the skin in the morning. Obtaining from pluriSelect. Active Pantoprazole Sodium 40 MG Oral Tablet [...] [facility] Pharmacy [place] Spinal pain 06/04/2014 02/02/2017 Type 2 diabetes [...] mRNA, LNP-s, No Pre serve, 2-Dose Series ([employer] 09/09/2020,08/19/2020 Covid-19, Mrna, Lnp-s, Pf, B ivalent, 30 Mcg, IM, 12 yrs and above ([employer] 03/02/2024 Pneumococcal Conjugate Vacc, 13 Valent [...] 04/30/2024 1:30 PM EST Office Visit Orthopaedics [facility] [address] [place] [address] Ion Ortiz DO [address] [place] [address] [address] 05/04/2024 2:00 PM EST Office Visit Hematology/Oncology [facility] [place] [address] [place] [phone] Henok Stauffer MD [address] [place] [address] 05/14/2024 2:30 PM EST Office Visit Pharmacy, [address] [place] [phone] [facility] [address] [facility] [address] 11/24/2024 2:40 PM EDT Office Visit Nephrology, Misty Calderon [address] [place] [address] Eric Day MD 200 [facility] [place], [place] [address] 03/19/2025 1:00 PM EDT Office Visit Ophthalmology, [place] [address] [place] [address] Ernie Rivers DO [address] [place] [address] Scheduled Procedures Name Priority Associated Diagnoses Date/Ti [...] 03/02/2024, 09/09/2020, 08/19/2020 CKD PHOS USE SMARTSET 66048 09/16/202408/26, 06/18/2023, 06/06/2023, Additional history exists GFR 09/23/2024 03/25/2024, 02/25, 01/06/2024, Additional history exists HbA1c 09/23/2024 03/25/2024, 08/26, 04/24/2023, Additional history exists Diabetic Foot Exam 10/02/2024 10/03/2023, 1 07/24/2019, 04/06/2019, Additional history exists Diabetic Eye Exam 03/05/2025 03/05/2024, , 03/05/2024, Additional history exists Mammogram 03/05/2025 03/05/2024, 07/2022, 02/26/2023, Additional history exists CKD HGB USE SMARTSET 13042 03/25/202503/25, 03/25/2024, 03/16/2024, Additional history exists Albumin/Creatinine [...] Documents on File Type Date Recorded 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 No Care Teams Active Directory Engineer Relationship Specialty Start Date End Date Chris Asencio DO [address] [place] [address] PCP - General Family Medicine 01/07/18 documented as of this encounter
--- OUTSIDE RECORDS SUMMARY | 2024-09-21 22:44 | External Medical Summary | Summary of Care ---
Author Name Unknown Organization [facility] Address [address] [place] [address] Phone [phone] Care Team Providers Care In School Suspension Aide Name Role Phone Chris Asencio Primary Care Provider Encounter Details Date Type Department Care Team (Late st Contact Info) Description 04/02/2024 Population Health External Data Unspecified Department Allergies [...] as of this encounter (statuses as of 04/09/2024) Medications Spacer/Aero-Holding Chambers DEVIIndications:Mod erate persistent asthma [...] 11.9 400 Each 5 04/17/20 23 Active Aspirin 81 MG Oral Tablet Chewable [...] 3:16 PM EDT 05/09/20 23 Active Methscopolamine Redig 2.5 MG Oral TabletIndications:I rritable bowel syndrome [...] 4 5:45 PM EDT 05/09/20 23 Active R-[employer]olution Industries Flex System w/Device Kit USE 1 DEVICE DIRECTED EVERY EVENING. UP TO 4 TIMES A DAY TO CHECK BLOOD GLUCOSE E11.9 04/17/20 23 Active Dexcom G7 Preassembler Printed Circuit Board Device Use as directed. Act vlad Dexcom [...] 2:06 PM EDT 09/04/19 24 Active Calcitonin ([place]) 200 UNIT/ACT Nasal Solution Administer 1 [place] into one nostril in the morning. alternate [...] the skin once a week. Obtaining from [employer] Active NovoLOG FlexPen 100 UNIT/ML Subcutaneous Solution Pen-injector (insulin aspart) Inject under the skin three times a day with meals. 5 units before breakfast, 2 units with lunch and 2 units with supper + CF of 1:50 over 120 [when off ozempic] 4 units before breakfast [when taking ozempic] Obtaining from [email or web address] Active Tresiba FlexTouch 200 UNIT/ML Subcutaneous Solution Pen-injector (Insulin Degludec) Inject 16 Units under the skin in the morning. Obtaining from [email or web address]. Active Pantoprazole Sodium 40 MG Oral Tablet [...] GAIN. 180 Tablet 11 02/25/20 24 Active Hospital, Clinic, or Other Facility Administered Medication Ordered Dose Route Frequency Start Date End Date Status albuterol sulfate (PROVENTIL) (2.5 MG/3ML) 0.083% inhalation solution 2.5 mgIndications:Moderate persistent asthma without complication 2.5 mg NEBULIZER Q4H PRN 08/13/2018 Active documented as of this encounter (statuses as of 04/09/2024) Active Problems Patient Care Coordination No te [...] as of this encounter (statuses as of 04/09/2024) Resolved Problems Problem Noted Date Diagnosed Date [...] 06/04/2014 Pranav Sanchez MD [facility] Pharmacy [place] Spinal pain 06/04/2014 02/02/2017 Type 2 diabetes [...] as of this encounter (statuses as of 04/09/2024) Immunizations Name Administration Dates Next Due COVID-19 mRNA, LNP-s, No Pre serve, 2-Dose Series ([employer]) 09/09/2020,08/19/2020 Covid-19, Mrna, Lnp-s, Pf, B ivalent, 30 Mcg, IM, 12 yrs and above ([employer]) 03/02/2024 Pneumococcal Conjugate Vacc, 13 Valent [...] Care Team (Late st Contact Info) Description 04/15/2024 8:00 AM EST Office Visit Family Practice [facility] [address] [address] Chris Asencio, [address] [place] [address] 04/30/2024 1:30 PM EST Office Visit Orthopaedics [facility] [address] [address] Ion Ortiz, [address] [place] [address] 05/04/2024 2:00 PM EST Office Visit Hematology/Oncology [facility] [address] [place] [phone] Henok Stauffer MD 200 [facility] [place], [place] [address] 05/14/2024 2:30 PM EST Office Visit Pharmacy, [place] [address] [place] [address] [facility] [address] [place] [address] 11/24/2024 2:40 PM EDT Office Visit Nephrology, [facility] 200 [facility] [place], [place] [address] Eric Day MD 200 [facility] [place], [place] [address] 03/19/2025 1:00 PM EDT Office Visit Ophthalmology, [place] [address] [place] [address] Ernie Rivers DO [address] [place] [address] Scheduled Procedures Name Priority Associated Diagnoses Date/Ti [...] 03/02/2024, 09/09/2020, 08/19/2020 CKD PHOS USE SMARTSET 38508 09/16/202408/26, 06/18/2023, 06/06/2023, Additional history exists GFR 09/23/2024 03/25/2024, 02/25, 01/06/2024, Additional history exists HbA1c 09/23/2024 03/25/2024, 08/26, 04/24/2023, Additional history exists Diabetic Foot Exam 10/02/2024 10/03/2023, 1 07/24/2019, 04/06/2019, Additional history exists Diabetic Eye Exam 03/05/2025 03/05/2024, , 03/05/2024, Additional history exists Mammogram 03/05/2025 03/05/2024, 07/2022, 02/26/2023, Additional history exists CKD HGB USE SMARTSET 56062 03/25/202503/25, 03/25/2024, 03/16/2024, Additional history exists Albumin/Creatinine [...] Documents on File Type Date Recorded 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 No Care Teams In School Suspension Aide Relationship Specialty Start Date End Date Chris Asencio DO [address] [place] [address] PCP - General Family Medicine 01/07/18 documented as of this encounter
--- OUTSIDE RECORDS SUMMARY | 2024-09-21 22:44 | External Medical Summary | Summary of Care ---
Author Name Unknown Organization [facility] Address [address] [place] [address] Phone [phone] Care Team Providers Care Actuarial Intern Name Role Phone Chris Asencio DO Primary [...] 2:20 PM EST Office Visit Family Practice [facility] [address] [facility] [place] [address] Chris Asencio DO 132 [facility] [place] [address] Person under investigation for COVID-19*; Type 2 diabetes mellitus with both eyes affected by mild nonproliferative retinopathy without macular edema, with long-term current use of insulin ([facility]); Type 2 diabetes mellitus with stage 3a chronic kidney disease, with long-term current use of insulin ([facility]); Pneumonia due to suspected gram-negative bacteria Allergies [...] 3:16 PM EDT 05/09/20 23 Active Methscopolamine [place] 2.5 MG Oral TabletIndications:I rritable bowel syndrome [...] 4 5:45 PM EDT 05/09/20 23 Active Baravento Flex System w/Device Kit USE 1 DEVICE DIRECTED EVERY EVENING. UP TO 4 TIMES A DAY TO CHECK BLOOD GLUCOSE E11.9 04/17/20 23 Active Dexcom G7 Pathology Tech Device Use as directed. Act vlad Dexcom [...] 2:06 PM EDT 09/04/19 24 Active Calcitonin ([place]) 200 UNIT/ACT Nasal Solution Administer 1 [place] into one nostril in the morning. alternate [...] the skin once a week. Obtaining from [employer] Active NovoLOG FlexPen 100 UNIT/ML Subcutaneous Solution Pen-injector (insulin aspart) Inject under the skin three times a day with meals. 5 units before breakfast, 2 units with lunch and 2 units with supper + CF of 1:50 over 120 [when off ozempic] 4 units before breakfast [when taking ozempic] Obtaining from Kadriana Active Tresiba FlexTouch 200 UNIT/ML Subcutaneous Solution Pen-injector (Insulin Degludec) Inject 16 Units under the skin in the morning. Obtaining from Kadriana. Active Pantoprazole Sodium 40 MG Oral Tablet [...] Overview (06/04/2014): Signed 06/04/2014 Pranav Sanchez MD [facility] Pharmacy [place] Spinal pain 06/04/2014 02/02/2017 Type 2 [...] mRNA, LNP-s, No Pre serve, 2-Dose Series ([employer] At Home) 09/09/2020,08/19/2020 Covid-19, Mrna, Lnp-s, Pf, B ivalent, [...] less than 8.0% ([facility]) KATERIN (obstructive sleep apnea) Medical marijuana use Persistent insomnia PVC's (premature ventricular contractions) PTSD (post-traumatic stress disorder) Hypertensive kidney disease with stage 3b chronic kidney disease (HCC) Anemia, chronic disease Depression with anxiety Type 2 diabetes mellitus with stage 3a chronic kidney disease, with long-term current use of insulin ([facility]) Osteoarthritis of spine with radiculopathy, 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, with long-term current use of insulin ([facility]) Type 2 diabetes mellitus with diabetic cataract, with long-term current use of insulin ([facility]) Past Medical History: Diagnosis Date Acute respiratory [...] 12/07/2014 ischemic colitis, hyperplastic polyp, repeat 5 yrs/[facility] COLONOSCOPY, DIAGNOSTIC (RECTUM) 03/17/2021 poor prep/sigmoid diverticulosis/biopsies normal/recall 5 years/COLONOSCOPY FLEXIBLE PROXIMAL DIAGNOSTIC performed by Brittany Blackman MD at ENDOSCOPY [facility] EGD, FLEXIBLE, DIAGNOSTIC N/A 12/17/2022 esophageal plaques, suspicious for candidias/diffuse gastritis/biopsies confirm casie/EGD/MN EXC BREAST LESION RADMARK Right 03/30/2022 EXCISION OF BREAST LESION RADIOLOGICAL MARKER performed by Lila Mora MD at OR [facility] KNEE ARTHROSCOPY, DIAGNOSTIC 1989 Knee Arthroscopy REMOVE [...] Sprays before bedtime. 48 g 3 Methscopolamine [place] 2.5 MG Oral Tablet TAKE 1 TAB [...] Tablet by mouth at bedtime. 90 Tablet3 Nse [employer] System w/Device Kit USE 1 DEVICE DIRECTED EVERY EVENING. UP TO 4 TIMES A DAYTO CHECK BLOOD GLUCOSE E11.9 Dexcom G7 Pathology Tech Device Use as directed. Dexcom G7 Sensor [...] mouth 3 times a day as needed. Hmjkngt-Cvberqrfmdnyjfq-Fepd 650-20-5.5 MG-MCG-MG Oral Tablet Chewable Take 1 Tablet by mouth in the morning and 1 Tablet before bedtime. Acetaminophen 500 MG Oral Tablet (Tylenol) Take 2 Tablets by mouth 2 times a day. Diclofenac Sodium 1 % External Gel (Voltaren) PLACE 4 GRAMS TOPICALLY ON THE SKIN TWICE DAILY DIRECTED 300 g 4 Calcitonin ([place]) 200 UNIT/ACT Nasal Solution Administer 1 [place] into one nostril in the morning.alternate nostrils.. [...] the skin once a week. Obtaining from Novo[employer] PAP NovoLOG FlexPen 100 UNIT/ML Subcutaneous Solution Pen-injector (insulin aspart) Inject under the skin three times a day with meals. 5 units before breakfast, 2 units with lunch and 2 units with supper + CF of 1:50 over 120 [when off ozempic] 4 units before breakfast [when taking ozempic] Obtaining from Kadriana Tresiba FlexTouch 200 UNIT/ML Subcutaneous Solution Pen-injector (Insulin Degludec) Inject 16 Unitsunder the skin in the morning. Obtaining from Kadriana. Pantoprazole Sodium 40 MG Oral Tablet Delayed [...] Ernie Coker PA-C 2.5 mg at 08/22/18 4627 Review of patient's allergies indicates: Allergen Reactions [...] Melatonin Nervous , anxiety Chris Asencio DO [facility] 132 [facility] [place] [address] (This note was completed using the dictation [...] 04/30/2024 1:30 PM EST Office Visit Orthopaedics [facility] [address] [facility] [place] [address] Ion Ortiz DO 132 [facility] [place] [address] 05/04/2024 2:00 PM EST Office Visit Hematology/Oncology [facility] [address] [place] [phone] Henok Stauffer MD 200 [facility] [place] [address] 05/14/2024 2:30 PM EST Office Visit Pharmacy, [place] [address] [place] [address] [place], [facility] [address] [place] [address] 11/24/2024 2:40 PM EDT Office Visit Nephrology, [facility] [address] [place] [address] Eric Day MD 200 [facility] [place] [address] 03/19/2025 1:00 PM EDT Office Visit [facility], [place] [facility] [address] Ernie Rivers DO 21 [facility] [place] [address] Pending Results Name Type Priority Associated Diagnoses [...] 03/02/2024, 09/09/2020, 08/19/2020 CKD PHOS USE SMARTSET 15612 09/16/202408/26, 06/18/2023, 06/06/2023, Additional history exists GFR 09/23/2024 03/25/2024, 02/25, 01/06/2024, Additional history exists HbA1c 09/23/2024 03/25/2024, 08/26, 04/24/2023, Additional history exists Diabetic Foot Exam 10/02/2024 10/03/2023, 1 07/24/2019, 04/06/2019, Additional history exists Diabetic Eye Exam 03/05/2025 03/05/2024, , 03/05/2024, Additional history exists Mammogram 03/05/2025 03/05/2024, 07/2022, 02/26/2023, Additional history exists CKD HGB USE SMARTSET 15533 03/25/202503/25, 03/25/2024, 03/16/2024, Additional history exists Albumin/Creatinine [...] Documents on File Type Date Recorded 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 No Care Teams Actuarial Intern Relationship Specialty Start Date End Date Chris Asencio DO [address] [address] PCP - General Family Medicine 01/07/18 documented as of this encounter
--- OUTSIDE RECORDS SUMMARY | 2024-09-21 22:44 | External Medical Summary | Summary of Care ---
Author Name Unknown Organization [facility] Address [address] [place] [address] Phone [phone] Care Team Providers Care Hop Trainer Name Role Phone Chris Asencio Primary Care [...] 3:16 PM EDT 05/09/20 23 Active Methscopolamine [place] 2.5 MG Oral TabletIndications:I rritable bowel syndrome [...] 4 5:45 PM EDT 05/09/20 23 Active Media [employer]rie[employer] Flex System w/Device Kit USE 1 DEVICE DIRECTED EVERY EVENING. UP TO 4 TIMES A DAY TO CHECK BLOOD GLUCOSE E11.9 04/17/20 23 Active Dexcom G7 Supervisor Aluminum Fabrication Device Use as directed. Act vlad Dexcom [...] 2:06 PM EDT 09/04/19 24 Active Calcitonin ([place]) 200 UNIT/ACT Nasal Solution Administer 1 [place] into one nostril in the morning. alternate [...] the skin once a week. Obtaining from [employer]GET[employer] / ?.?? Active NovoLOG FlexPen 100 UNIT/ML Subcutaneous Solution Pen-injector (insulin aspart) Inject under the skin three times a day with meals. 5 units before breakfast, 2 units with lunch and 2 units with supper + CF of 1:50 over 120 [when off ozempic] 4 units before breakfast [when taking ozempic] Obtaining from [employer] / ?.?? Active Tresiba FlexTouch 200 UNIT/ML Subcutaneous Solution Pen-injector (Insulin Degludec) Inject 16 Units under the skin in the morning. Obtaining from [employer] / ?.??. Active Pantoprazole Sodium 40 MG Oral Tablet [...] [facility] Pharmacy [place] Spinal pain 06/04/2014 02/02/2017 Type 2 diabetes [...] mRNA, LNP-s, No Pre serve, 2-Dose Series ([employer]) 09/09/2020,08/19/2020 Covid-19, Mrna, Lnp-s, Pf, B ivalent, 30 Mcg, IM, 12 yrs and above ([employer]) 03/02/2024 Pneumococcal Conjugate Vacc, 13 Valent [...] 04/30/2024 1:30 PM EST Office Visit Orthopaedics [facility] [address] [place] [address] Ion Ortiz DO [address] [place] [address] [address] 05/04/2024 2:00 PM EST Office Visit Hematology/Oncology [facility] [place] [address] [place] [phone] Henok Stauffer MD [address] [place] [address] 05/14/2024 2:30 PM EST Office Visit Pharmacy, [address] [place] [phone] [facility] [address] [facility] [address] 11/24/2024 2:40 PM EDT Office Visit Nephrology, [facility]y [facility] [address] [place] [address] Eric Day MD 200 [facility] [place], [place] [address] 03/19/2025 1:00 PM EDT Office Visit Ophthalmology, [place] [address] [address] Ernie Rivers DO [address] [place] [address] Scheduled Procedures Name Priority Associated Diagnoses Date/Ti [...] 03/02/2024, 09/09/2020, 08/19/2020 CKD PHOS USE SMARTSET 40089 09/16/202408/26, 06/18/2023, 06/06/2023, Additional history exists GFR 09/23/2024 03/25/2024, 02/25, 01/06/2024, Additional history exists HbA1c 09/23/2024 03/25/2024, 08/26, 04/24/2023, Additional history exists Diabetic Foot Exam 10/02/2024 10/03/2023, 1 07/24/2019, 04/06/2019, Additional history exists Diabetic Eye Exam 03/05/2025 03/05/2024, , 03/05/2024, Additional history exists Mammogram 03/05/2025 03/05/2024, 07/2022, 02/26/2023, Additional history exists CKD HGB USE SMARTSET 08875 03/25/202503/25, 03/25/2024, 03/16/2024, Additional history exists Albumin/Creatinine [...] Documents on File Type Date Recorded 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 No Care Teams Hop Trainer Relationship Specialty Start Date End Date Chris Asencio DO [address] [place] [address] PCP - General Family Medicine 01/07/18 documented as of this encounter
--- OUTSIDE RECORDS SUMMARY | 2024-09-21 22:45 | External Medical Summary | Summary of Care ---
Author Name Unknown Organization [facility] Address [address] [place] [address] Phone [phone] Care Team Providers Care Hide Handler Name Role Phone AsencioJoeChrismelissa Fabiananay Primary Care Provider Reason for Visit * Reason Onset Date Comments Medication Question 01/08/2024 Encounter Details Date Type Department Care Team (Late st Contact Info) Description 01/08/2024 Telephone Centralized Clinical Pharmacy Services, Jerrica Mccann [address] [place] [address] [place] [address] [facility] [address] [place], [place] [id number] Medication Question Allergies Active Allergy Reactions Criticality [...] as of this encounter (statuses as of 04/08/2024) Medications Spacer/Aero-Holding Chambers DEVIIndications:Mod erate persistent asthma [...] mL 3 4 5:45 PM EDT 05/09/20 Active Estrogens Conjugated 0.625 MG/GM Vaginal Cream [...] 3:16 PM EDT 05/09/20 23 Active Methscopolamine [place] 2.5 MG Oral TabletIndications:I rritable bowel syndrome with diarrhea TAKE 1 TAB UP TO 3 TIMES DAILY NEEDED FOR ABDOMINAL CRAMPS & DIARRHEA, 270 Tablet 1 4 5:56 PM EDT 05/09/20 Active Metoprolol Succinate ER [...] 4 5:45 PM EDT 05/09/20 23 Active [employer] System w/Device Kit USE 1 DEVICE DIRECTED EVERY EVENING. UP TO 4 TIMES A DAY TO CHECK BLOOD GLUCOSE E11.9 04/17/20 23 Active Dexcom G7 Bank Teller Device Use as directed. Active Dexcom G7 [...] g 4 4 2:06 PM EDT 09/04/19 Active Calcitonin ([place]) 200 UNIT/ACT Nasal Solution Administer 1 [place] into one nostril in the morning. alternate nostrils.. 3 mL 09/25/19 Active buPROPion HCl ER (SR) 100 MG Oral Tablet Extended Release 12 Hour (Wellbutrin SR) Take 1 Tablet by mouth in the morning. Active Diphenoxylate-Atrop ine 2.5-0.025 MG Oral Tablet (Lomotil)Indication s:Irritable bowel syndrome with diarrhea TAKE 2 TABLETS BY MOUTH EVERY 6 HOURS NEEDED FOR DIARRHEA. 30 Tablet 12/23/19 24 Active Hospital, Clinic, or Other Facility Administered Medication Ordered Dose Route Frequency Start Date End Date Status albuterol sulfate (PROVENTIL) (2.5 MG/3ML) 0.083% inhalation solution 2.5 mgIndications:Moderate persistent asthma without complication 2.5 mg NEBULIZER Q4H PRN 08/13/2018 Active documented as of this encounter (statuses as of 04/08/2024) Active Problems Patient Care Coordination No te [...] as of this encounter (statuses as of 04/08/2024) Resolved Problems Problem Noted Date Diagnosed Date [...] Pranav Sanchez MD [facility] Pharm[facility] [place] Spinal pain 06/04/2014 02/02/2017 Type 2 diabetes [...] as of this encounter (statuses as of 04/08/2024) Immunizations Name Administration Dates Next Due COVID-19 [...] Telephone Encounter - Kellie Gutierres LPN - 01/08/2024 11:41 AM EDT Patient calling back: Advised that Ozempic has not arrived at the office yet. RAZ Mobile number: Called Anni Nordisc: Ozempic Shipping in process and will provide with shipping status including rj number as soonas it becomes available. Check back in 1 to 2 days. 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 * Telephone Encounter - Michelle Marion LPN - 01/08/2024 11:30 AM EDT No Ozempic from [employer] received at clinic at this time. Pt was not available on line as she disconnected prior to transfer. 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 Wants to know if in office Caller was transferred to [facility] at the nurse line. * Telephone Encounter - Sarina Avalos, cartridge assembling machine adjuster - 01/08/2024 10:06 AM EDT Caller's name: Liane Preferred call back number(OFFICE NUMBER FOR ): [phone] Reason for call: Patient received a letter in mail regards her Ozempic on 12/25. Says her prescription was sent to her ordering physician office and it should arrive and 10 to 14 business days. Patient has not received any call as of yet in regards to her medication arriving or not. Please advise. Sarina Avalos Lab Asst Centralized Clinical Pharmacy Services [address] [place] [address] Dr. Johnson [address] [place] [address] [id number] 01/08/2024,10:06 AM documented in this encounter Plan of Treatment Upcoming Encounters Date Type Department Care Team (Late st Contact Info) Description 04/15/2024 8:00 AM EST Office Visit Family Practice [facility] [address] [place] [address] Chris Asencio, DO [address] [place] [address] 04/30/2024 1:30 PM EST Office Visit Orthopaedics [facility] [address] [place] [address] Ion Ortiz, DO [address] [place] [address] 05/04/2024 2:00 PM EST Office Visit Hematology/Oncology [facility] [address] [facility] [place] [phone] Henok Stauffer MD 200 [facility] [place] [address] 05/14/2024 2:30 PM EST Office Visit Pharmacy, [address] [place] [address] [place], [facility] [address] [place] [address] 11/24/2024 2:40 PM EDT Office Visit Nephrology, [facility] [address] [facility] [place] [address] Eric Day MD 200 [facility] [place], [place] [address] 03/19/2025 1:00 PM EDT Office Visit Ophthalmology, [place] [address] [place] [address] Ernie Rivers DO [address] [place] [address] Scheduled Procedures Name Priority Associated Diagnoses Date/Ti [...] 03/02/2024, 09/09/2020, 08/19/2020 CKD PHOS USE SMARTSET 64586 09/16/202408/26, 06/18/2023, 06/06/2023, Additional history exists GFR 09/23/2024 03/25/2024, 02/25, 01/06/2024, Additional history exists HbA1c 09/23/2024 03/25/2024, 08/26, 04/24/2023, Additional history exists Diabetic Foot Exam 10/02/2024 10/03/2023, 1 07/24/2019, 04/06/2019, Additional history exists Diabetic Eye Exam 03/05/2025 03/05/2024, , 03/05/2024, Additional history exists Mammogram 03/05/2025 03/05/2024, 07/2022, 02/26/2023, Additional history exists CKD HGB USE SMARTSET 94020 03/25/202503/25, 03/25/2024, 03/16/2024, Additional history exists Albumin/Creatinine [...] on File Type Date Recorded 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 No Care Teams Hide Handler Relationship Specialty Start Date End Date Chris Asencio DO [address] [place] [address] PCP - General Family Medicine 01/07/18 documented as of this encounter
--- OUTSIDE RECORDS SUMMARY | 2024-09-21 22:45 | External Medical Summary | Summary of Care ---
Author Name Unknown Organization [facility] Address [address] [place] [address] Phone [phone] Care Team Providers Care Mopper Name Role Phone Chris Asencio Primary Care Provider Reason for Visit * Reason Comments Return Visit Chronic Kidney Disease (CKD) Hypertension CKD with anemia DM Encounter Details Date Type Department Care Team (Late st Contact Info) Description 04/06/2024 2:00 PM EST Office Visit Nephrology, Misty Calderon [address] [place] [address] Eric Day MD 200 [place] [address] Stage 3a chronic kidney disease (HCC)*; DAVONTE [...] as of this encounter (statuses as of 04/06/2024) Medications Spacer/Aero-Holding Chambers DEVIIndications:Mod erate persistent asthma [...] 3:16 PM EDT 05/09/20 23 Active Methscopolamine [place] 2.5 MG Oral TabletIndications:I rritable bowel syndrome [...] 3 4 3:16 PM EDT 05/09/20 Active Pramipexole Dihydrochloride 1 MG Oral Tablet (Mirapex)Indication s:Right knee pain, unspecified chronicity Take 1 Tablet by mouth at bedtime. 90 Tablet 3 4 5:45 PM EDT 05/09/20 Active Shoulder Options Verio Flex System w/Device Kit USE 1 DEVICE DIRECTED EVERY EVENING. UP TO 4 TIMES A DAY TO CHECK BLOOD GLUCOSE E11.9 04/17/20 23 Active Dexcom G7 Grade Foreman Device Use as directed. Act vlad Dexcom [...] 2:06 PM EDT 09/04/19 24 Active Calcitonin ([place]) 200 UNIT/ACT Nasal Solution Administer 1 [place] into one nostril in the morning. alternate [...] the skin once a week. Obtaining from [employer] Active NovoLOG FlexPen 100 UNIT/ML Subcutaneous Solution Pen-injector (insulin aspart) Inject under the skin three times a day with meals. 5 units before breakfast, 2 units with lunch and 2 units with supper + CF of 1:50 over 120 [when off ozempic] 4 units before breakfast [when taking ozempic] Obtaining from [employer] Active Tresiba FlexTouch 200 UNIT/ML Subcutaneous Solution Pen-injector (Insulin Degludec) Inject 16 Units under the skin in the morning. Obtaining from [employer]. Active Pantoprazole Sodium 40 MG Oral Tablet [...] GAIN. 180 Tablet 11 02/25/20 24 Active rifAXIMin 550 MG Oral Tablet (Xifaxan)Indication s:Irritable bowel syndrome with diarrhea,Chronic diarrhea Take 1 Tablet by mouth in the morning and 1 Tablet at noon and 1 Tablet before bedtime. Do all this for 14 days. 42 Tablet 03/25/20 24 024 Active Hospital, Clinic, or Other Facility Administered Medication Ordered Dose Route Frequency Start Date End Date Status albuterol sulfate (PROVENTIL) (2.5 MG/3ML) 0.083% inhalation solution 2.5 mgIndications:Moderate persistent asthma without complication 2.5 mg NEBULIZER Q4H PRN 08/13/2018 Active documented as of this encounter (statuses as of 04/06/2024) Active Problems Patient Care Coordination No te [...] as of this encounter (statuses as of 04/06/2024) Resolved Problems Problem Noted Date Diagnosed Date [...] Overview (06/04/2014): Signed 06/04/2014 Pranav Sanchez MD [facility] Pharm[facility] [place] Spinal pain 06/04/2014 02/02/2017 Type 2 diabetes [...] as of this encounter (statuses as of 04/06/2024) Immunizations Name Administration Dates Next Due COVID-19 mRNA, LNP-s, No Pre serve, 2-Dose Series (Vputi) 09/09/2020,08/19/2020 Covid-19, Mrna, Lnp-s, Pf, B ivalent, [...] Sign Reading Time Taken Comments Blood Pressure 125/74 04/06/2024 2:02 PM EST Pulse 60 04/06/2024 2:02 PM EST Temperature 36.6 °C (97.8 °F) 04/06/2024 2:02 PM ES T Respiratory Rate 20 04/06/2024 2:02 PM EST Oxygen Saturation 94% 04/06/2024 2:02 PM EST Inhaled Oxygen Concentration - - Weight 114.4 kg (252 lb 4.8 oz) 04/06/2024 2:02 PM EST Height - - Body Mass Index 37.26 09/25/2023 11:34 AM EDT documented in this encounter Progress Notes * Eric Day MD - 04/06/2024 2:10 PM EST Chief Complaint Patient presents with Return Visit Chronic Kidney Disease (CKD) Hypertension CKD with anemia DM HPI: 73F with h/o Severe ARF peak creat 8+ in 04/2018 with high K ( sec to ATN in the setting of Polypharmacy drug overdose). Got better with iv fluids and no dialysis. Recent baseline creat normal. Last 2 BMP abnormal with creat 1.3 GFR 41. Has DM2 on insulin for 10+ years, obesity, lymphedema on Chronic Lasix 40 , Primary Pulm HTN, Chronic NSAID/meloxicam--stopped just recently. Has Sig Psych problems too. ----was admitted in [facility] November 2022 and was discharged December 22. Admission was for sepsis respiratory failure acute renal failure with a peak creatinine of 13.3 BUNof 174 and a potassium of 6.6 ! ------admitted in [facility] May 2023 with a DAVONTE peak creatinine 4. Cause wasexcessive use of NSAIDs and and unapproved use of lisinopril. Got better without dialysis Since last visit ------no hospital admission but she had to go to the emergency department twice for severe diarrhea. She did see her PCP March 25, 2024 and was labeled as IBS and was startedon rifaximin for 2 weeks. She feels she is doing her really good and no longer has diarrhea. She had blood work done February 2024 and renal function was the best it has ever been with a creatinine of 1.1 GFR of 53. Does not take NSAIDs and is on Lasix 40 twice daily. Blood pressure seems reasonable. Diabetes is excellently controlled with an A1c of 6.1% Patient Active Problem List Diagnosis Irritable bowel syndrome Obesity, Class II, BMI 35-39.9, isolated (see actual BMI) Gastroesophageal reflux disease with esophagitis without hemorrhage HTN, goal below 130/80 Moderate persistent asthma without complication Restless legs syndrome Primary pulmonary hypertension (HCC) Type 2 diabetes mellitus with hemoglobin A1c goal of less than 8.0% ([facility]) KATERIN (obstructive sleep apnea) Medical marijuana use Persistent insomnia PVC's (premature ventricular contractions) PTSD (post-traumatic stress disorder) Hypertensive kidney disease with stage 3b chronic kidney disease ([facility]) Anemia, chronic disease Depression with anxiety Type 2 diabetes mellitus with stage 3a chronic kidney disease, with long-term current use of insulin ([facility]) Osteoarthritis of spine with radiculopathy, 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 48 g 3 Methscopolamine [place] 2.5 MG Oral Tablet TAKE 1 TAB [...] Tablet by mouth at bedtime. 90 Tablet3 siXis System w/Device Kit USE 1 DEVICE DIRECTED EVERY EVENING. UP TO 4 TIMES A DAYTO CHECK BLOOD GLUCOSE E11.9 Dexcom G7 Grade Foreman Device Use as directed. Dexcom G7 Sensor [...] mouth 3 times a day as needed. Tyjymxq-Xqdfasbwqihyvzk-Cznj 650-20-5.5 MG-MCG-MG Oral Tablet Chewable Take 1 Tablet by mouth in the morning and 1 Tablet before bedtime. Acetaminophen 500 MG Oral Tablet (Tylenol) Take 2 Tablets by mouth 2 times a day. Diclofenac Sodium 1 % External Gel (Voltaren) PLACE 4 GRAMS TOPICALLY ON THE SKIN TWICE DAILY DIRECTED 300 g 4 Calcitonin ([place]) 200 UNIT/ACT Nasal Solution Administer 1 [place] into one nostril in the morning.alternate nostrils.. [...] the skin once a week. Obtaining from [employer] NovoLOG FlexPen 100 UNIT/ML Subcutaneous Solution Pen-injector (insulin aspart) Inject under the skin three times a day with meals. 5 units before breakfast, 2 units with lunch and 2 units with supper + CF of 1:50 over 120 [when off ozempic] 4 units before breakfast [when taking ozempic] Obtaining from [employer] Tresiba FlexTouch 200 UNIT/ML Subcutaneous Solution Pen-injector (Insulin Degludec) Inject 16 Unitsunder the skin in the morning. Obtaining from [employer]. Pantoprazole Sodium 40 MG Oral Tablet Delayed Release (Protonix) TAKE 1 TABLET IN THE MORNING AND BEFORE BEDTIME 180 Tablet 3 Furosemide 40 MG Oral Tablet (Lasix) TAKE 1 TABLET BY MOUTH IN THE MORNING AND 1 TABLET BEFORE BEDTIME. FOR FLUID ACCUMULATION OR WEIGHT GAIN. 180 Tablet 11 rifAXIMin 550 MG Oral Tablet (Xifaxan) Take 1 Tablet by mouth in the morning and 1 Tablet at noon and 1 Tablet before bedtime. Do all this for 14 days. 42 Tablet 0 Current Facility-Administered Medications Medication Dose Route [...] 12/07/2014 ischemic colitis, hyperplastic polyp, repeat 5 yrs/[facility] COLONOSCOPY, DIAGNOSTIC (RECTUM) 03/17/2021 poor prep/sigmoid diverticulosis/biopsies normal/recall 5 years/COLONOSCOPY FLEXIBLE PROXIMAL DIAGNOSTIC performed by Brittany Blackman MD at ENDOSCOPY [facility] EGD, FLEXIBLE, DIAGNOSTIC N/A 12/17/2022 esophageal plaques, suspicious for candidias/diffuse gastritis/biopsies confirm casie/EGD/MO EXC BREAST LESION RADMARK Right 03/30/2022 EXCISION OF BREAST LESION RADIOLOGICAL MARKER performed by Lila Mora MD at OR [facility] KNEE ARTHROSCOPY, DIAGNOSTIC 1989 Knee [...] Nervous , anxiety Family History Problem Relation Name Age of Onset Musculo-skeletal Disorder Mother severe [...] file Gets together: Not on file Attends roman catholic service: Not on file Active member of [...] systems reviewed and negative OBJECTIVE:Physical Exam: BP 125/74 (BP Site: Right Arm, BP Position: Sitting, BP Cuff Size: Large) | Pulse 60 | Temp 36.6 °C (97.8 °F) (Tympanic) | Resp 20 | Wt 114.4 kg (252 lb 4.8 oz) | SpO2 94% | BMI 37.26 kg/m² | BSA 2.36 m² MM-moist. No JVD Chest CTA CVS---RRR Abd--Soft [...] of acute renal failure of severe type Last baseline creat 1.1 GFR of 53. This is the best it has ever been . Etiology of underlying CKD multifactorial with hypertension diabetes repeated acute renal failure with partial recovery No edema on current dose of Lasix plus she also uses compression stockings. She always has slightlymore edematous left leg than right. Continue current dose of Lasix - NEPHROLOGY FOLLOW UP APPT (DEPARTMENT USE ONLY); Future; Expected date: 10/04/2024 DAVONTE (acute kidney injury) ([facility]) H/o Severe DAVONTE 3 times. November 2022 peak creatinine of 13 and previous episode in 2017 with a peak creatinine of 8.8. Both time caused by sepsis with ATN and recovered without dialysis. This recent admission of DAVONTE was because of Heavy NSAIDS and unapproved use of CLARITA. Recovered and creat is now 1.1 from peak creat of 4. HTN, goal below 130/80 Bp is at goal today in the clinic. I do not want her to take blood pressure medication When her clinic blood pressure readings are consistently either low or low normal . She has had history of self utilizing blood pressure medication especially lisinopril when she feels her blood pressure is high.I have told her in the past not to do that Eric Day MD documented in this encounter Nursing Notes * Julianna Brasher LPN - 04/06/2024 1:59 PM EST Patient identified by verbal name and date of . Chief Complaint Patient presents with Return Visit Chronic Kidney Disease (CKD) Hypertension CKD with anemia DM No recent inpatient stays But seen x [address] [facility] ED for diarrhea Last seen 03/22/24 Pt notes SOB with exertion with bilateral ankle edema left greater than right Last labs 03/25/24 ACR 03/27/24 documented in this encounter Plan of Treatment Upcoming Encounters Date Type Department Care Team (Late st Contact Info) Description 04/15/2024 8:00 AM EST Office Visit Family Practice [facility] [address] [place] [address] Chris Asencio, DO [address] [place] [address] 04/30/2024 1:30 PM EST Office Visit Orthopaedics [facility] [address] [place] [address] Ion Ortiz, DO [address] [place] [address] 05/04/2024 2:00 PM EST Office Visit Hematology/Oncology [facility] [place] [address] [place] [phone] Henok Stauffer MD [address] [place] [address] 05/14/2024 2:30 PM EST Office Visit Pharmacy, [address] [address] [facility] [address] [place] [address] 11/24/2024 2:40 PM EDT Office Visit [facility], [facility] [address] [place] [address] Eric Day MD [address] [place] [address] 03/19/2025 1:00 PM EDT [facility] [place] [address] Ernie Rivers, DO [address] [facility] [address] [place] [address] Scheduled Procedures Name Priority Associated Diagnoses Date/Ti [...] 03/02/2024, 09/09/2020, 08/19/2020 CKD PHOS USE SMARTSET 57213 09/16/202408/26, 06/18/2023, 06/06/2023, Additional history exists GFR 09/23/2024 03/25/2024, 02/25, 01/06/2024, Additional history exists HbA1c 09/23/2024 03/25/2024, 08/26, 04/24/2023, Additional history exists Diabetic Foot Exam 10/02/2024 10/03/2023, 1 07/24/2019, 04/06/2019, Additional history exists Diabetic Eye Exam 03/05/2025 03/05/2024, , 03/05/2024, Additional history exists Mammogram 03/05/2025 03/05/2024, 07/2022, 02/26/2023, Additional history exists CKD HGB USE SMARTSET 37252 03/25/202503/25, 03/25/2024, 03/16/2024, Additional history exists Albumin/Creatinine [...] with stage 3b chronic kidney disease (HCC) Stage 3a chronic kidney disease (HCC)- Primary DAVONTE (acute kidney injury) (HCC) Acute kidney failure, unspecified HTN, goal below 130/80 Unspecified essential hypertension documented in this encounter Advance Directives Documents on File Type Date Recorded Patient History Tutor Expl anation POLST 10/20/2021 [place] OR [facility] FOR [...] Power of Attor buddy? No Care Teams Mopper Relationship Specialty Start Date End Date Chris Asencio DO [address] [place] [address] PCP - General Family Medicine 01/07/18 documented as of this encounter
--- OUTSIDE RECORDS SUMMARY | 2024-09-21 22:45 | External Medical Summary | Summary of Care ---
Author Name Unknown Organization [facility] Address [address] [place] [address] Phone [phone] Care Team Providers Care Supervisor Ride Assembly Name Role Phone Chris Asencio Primary Care Provider Reason for Visit * Reason Comments Outpatient Testing Encounter Details Date Type Department Care Team (Late st Contact Info) Description 03/27/2024 11:50 AM EDT Laboratory Laboratory, [place] [address] [place] [address] [facility] [address] [place] [address] Type 2 diabetes mellitus with hemoglobin A1c goal of less than 8.0% ([facility]); Hypertensive kidney disease with stage 3b chronic [...] as of this encounter (statuses as of 03/27/2024) Medications Medication Sig Dispensed Refills Start Date End Date Status Spacer/Aero-Holding Chambers DEVIIndications:Moder ate persistent asthma without complication Use with inhaler. 1 Device 07/10/2018 Active multivitamin (MVI) Tablet TAKE 1 TABLET BY MOUTH EVERY DAY FOR SUPPLEMENT 1 09/17/2018 Active ONETOUCH DELICA LANCETS FINE MISC Use up to four times a day as directed DX E11.9 400 Each 3 04/16/2019 Active Doxepin HCl 150 MG Oral Capsule Take 1 Capsule by mouth at bedtime. 08/10/2020 Active Systane Complete 0.6 % Ophthalmic Solution [...] Active Additional Information Patient not taking.Reported on 10/03/2023 Vitamin C 500 MG Oral Capsule Take 1 Capsule by mouth in the morning and 1 Capsule before bedtime. Active OneTouch Verio In Vitro Strip (Glucose Blood)Indications:Typ e 2 diabetes mellitus with stage 3b chronic kidney disease, with long-term current use of insulin (HCC) Use up to 3 times a day E11.9 400 Strip 5 04/17/2023 Active OneTouch UltraSoft LancetsIndications:Ty pe 2 diabetes mellitus with stage 3b chronic kidney disease, with long-term current use of insulin (HCC) Use as directed 4 times a day. Use up to four times a day as directed to check blood glucose E 11.9 400 Each 5 04/17/2023 Active Aspirin 81 MG Oral Tablet Chewable (Aspirin Low Dose)Indications:Type 2 diabetes mellitus with diabetic nephropathy, with long-term current use of insulin (HCC) CHEW 1 TABLET BY MOUTH EVERY DAY 90 Tablet 3 05/09/2023 Active Atorvastatin Calcium 40 MG Oral [...] BEFORE BEDTIME 360 mL 3 05/09/2023 Active Estrogens Conjugated 0.625 MG/GM Vaginal [...] 2 Sprays before bedtime. 48 g 3 05/09/2023 Active Methscopolamine [place] 2.5 MG Oral TabletIndications:Irr itable bowel syndrome with diarrhea TAKE 1 TAB UP TO 3 TIMES DAILY NEEDED FOR ABDOMINAL CRAMPS & DIARRHEA, 270 Tablet 1 05/09/2023 Active Metoprolol Succinate ER 25 MG Oral Tablet Extended Release 24 Hour (toPROL XL)Indications:PVC's (premature ventricular contractions) TAKE 1 TABlet BY MOUTH EVERY MORNING AND ONE-HALF TABlet AT BEDTIME. 135 Tablet 3 05/09/2023 Active Montelukast Sodium 10 MG Oral Tablet (Singulair)Indication s:Moderate persistent asthma without complication Take 1 Tablet by mouth in the morning. 90 Tablet 3 05/09/2023 Active Pramipexole Dihydrochloride 1 MG Oral Tablet (Mirapex)Indications: Right knee pain, unspecified chronicity Take 1 Tablet by mouth at bedtime. 90 Tablet 3 05/09/2023 Active [facility] System w/Device Kit USE 1 DEVICE DIRECTED EVERY EVENING. UP TO 4 TIMES A DAY TO CHECK BLOOD GLUCOSE E11.9 04/17/2023 Active Dexcom G7 Sas Etl Developer Device Use as directed. Active Dexcom G7 Sensor Use as directed. Ac tive Triamcinolone Acetonide 0.1 % External Ointment (Aristocort) Apply topically to affected area 2 times a day 80 g 5 07/11/2023 Active Ferrous Gluconate 240 (27 Fe) MG Oral Tablet (Ferate) TAKE BY MOUTH 1 TABLET DAILY . 90 Tablet 3 08/01/2023 Active clonazePAM 0.5 MG Oral Tablet (KlonoPIN) Take 1 Tablet by mouth 3 times a day as needed. 08/07/2023 Active Calcium-Cholecalcifer ol-Zinc 650-20-5.5 MG-MCG-MG Oral Tablet Chewable Take 1 Tablet by mouth daily. Active Acetaminophen 500 MG Oral Tablet (Tylenol) Take 2 Tablets by mouth 2 times a day. Active Diclofenac Sodium 1 % External Gel (Voltaren)Indications :Right knee pain, unspecified chronicity PLACE 4 GRAMS TOPICALLY ON THE SKIN TWICE DAILY DIRECTED 300 g 4 09/04/2023 Active Calcitonin ([place]) 200 UNIT/ACT Nasal Solution Administer 1 [place] into one nostril in the morning. alternate nostrils.. 3 mL 11 09/25/2023 Active buPROPion HCl ER (SR) 100 MG Oral Tablet Extended Release 12 Hour (Wellbutrin SR) Take 1 Tablet by mouth in the morning and 1 Tablet before bedtime. Active Diphenoxylate-Atropin e 2.5-0.025 MG Oral Tablet (Lomotil)Indications: Irritable bowel syndrome with diarrhea TAKE 2 TABLETS BY MOUTH EVERY 6 HOURS NEEDED FOR DIARRHEA. 30 Tablet 11 12/23/2023 Active Ozempic (1 MG/DOSE) 4 MG/3ML Subcutaneous Solution Pen-injector (Semaglutide (1 MG/DOSE)) Inject 1 mg under the skin once a week. Obtaining from [employer] Active NovoLOG FlexPen 100 UNIT/ML Subcutaneous Solution Pen-injector (insulin aspart) Inject under the skin three times a day with meals. 5 units before breakfast, 2 units with lunch and 2 units with supper + CF of 1:50 over 120 [when off ozempic] 4 units before breakfast [when taking ozempic] Obtaining from [employer] Active Tresiba FlexTouch 200 UNIT/ML Subcutaneous Solution Pen-injector (Insulin Degludec) Inject 16 Units under the skin in the morning. Obtaining from [employer]. Active Pantoprazole Sodium 40 MG Oral Tablet Delayed Release (Protonix)Indications :Gastroesophageal reflux disease with esophagitis without hemorrhage TAKE 1 TABLET IN THE MORNING AND BEFORE BEDTIME 180 Tablet 3 02/16/2024 Active Furosemide 40 MG Oral Tablet (Lasix)Indications:Lo calized edema TAKE 1 TABLET BY MOUTH IN THE MORNING AND 1 TABLET BEFORE BEDTIME. FOR FLUID ACCUMULATION OR WEIGHT GAIN. 180 Tablet 11 02/25/2024 Active rifAXIMin 550 MG Oral Tablet (Xifaxan)Indications: Irritable bowel syndrome with diarrhea,Chronic diarrhea Take 1 Tablet by mouth in the morning and 1 Tablet at noon and 1 Tablet before bedtime. Do all this for 14 days. 42 Tablet 03/25/2024 Active Hospital, Clinic, or Other Facility Administered Medication Ordered Dose Route Frequency Start Date End Date Status albuterol sulfate (PROVENTIL) (2.5 MG/3ML) 0.083% inhalation solution 2.5 mgIndications:Moderate persistent asthma without complication 2.5 mg NEBULIZER Q4H PRN 08/13/2018 Active documented as of this encounter (statuses as of 03/27/2024) Active Problems Patient Care Coordination No te [...] with long-term current use of insulin 01/09/2024 Last Assessment & Plan: "RED FLAG" Diabetic symptoms: Generalized Weakness Goal HgbA1c <8 Diabetic Complications Renal (example: CKD, Proteinuria, Dialysis) Medication Regimen Basal/Long Acting Insulin Bolus/Short Acting Insulin GLP-1 Agonist (ex: Victoza, Trulicity, Ozempic) DM Secondary Prevention Moderate-High Intensity Statin Aspirin Additional Comments Followed by MTM-hemoglobin A1c 6.4 Osteoarthritis of spine with radiculopathy, thor [facility] 01/09/2024 Last Assessment & Plan: Followed by interventional pain management-MRI was ordered but she can not afford co-pay right now. Feels okay unless she coughs or sneezes. Uses heating pad and intermittent Tylenol. Depression with anxiety 09/25/2023 Last Assessment & Plan: Followed by psych--reports she was started on wellbutrin for depression this month. She was worried about the dose being too high. She contacted pcp who is following. She lowered dose to 100mg daily on her own. Feels her depression is improved. She does not like to take new medications. Anemia, chronic disease 03/26/2023 Last Assessment & Plan: Followed by hematology--most recent visit they noted she was stable--hemoglobin 13.9 Hypertensive kidney disease with stage 3b chronic kidney disease 01/07/2023 Overview: Per CKD protocol Last Assessment & Plan: BP at goal on metoprolol Following with nephrology Baseline creatinine 1.2 PVC's (premature ventricular contractions) 10/14 PTSD (post-traumatic stress disorder) 10/14/2020 Persistent insomnia 10/05/2020 KATERIN (obstructive sleep apnea) 11/13/2019 Last Assessment & Plan: Continues nocturnal oxygen 3-4 L does not tolerate BiPAP/CPAP Medical marijuana use 11/13/2019 Primary pulmonary hypertension 11/04/2018 Last Assessment & Plan: Continue diuretic Type 2 diabetes mellitus wit h hemoglobin [...] Assessment & Plan: protonix 40 mg BID Obesity, Class II, BMI 35-39.9, isolated (see ac tual BMI) 08/18/2009 Overview: Per Obesity Taxonomy Irritable bowel syndrome documented as of this encounter (statuses as of 03/27/2024) Resolved Problems Problem Noted Date Diagnosed Date Resolved Date Morbid (severe) obesity due to excess calories 08/13/2023 09/25/2023 Type 2 diabetes mellitus wit h stage 3b chronic kidney disease, with long-term current use of insulin 06/25/2023 09/25/2023 Last Assessment & Plan: "RED FLAG" Diabetic symptoms: Generalized Weakness Goal [...] Dyslipidemia, goal LDL below 70 03/06/2022 09/25/2023 Last Assessment & Plan: Continue atorvastatin History of COVID-19 02/15/2022 09/25/19 [...] insulin 10/04/2020 06/25/2023 Overview: Per CKD protocol Last Assessment & [...] depressive disorder, r ecurrent, moderate 08/15/2020 09/25/2023 Last Assessment & Plan: Stable today Not currently on antidepressants. Continue [...] MD [facility] [place] Spinal pain 06/04/2014 02/02/2017 Type 2 diabetes mellitus wit h hemoglobin A1c goal of 7.0%-8.0% 05/13/2014 10/14/2020 Overview: ICD-10 update of inactive term Spinal pain 05/13/2014 06/04/2014 DM type 2 causing renal disease 06/16/2012 10/14/2020 HTN, GOAL BELOW 140/80 01/14/201208/31 Overview: Per HTN Protocol #27. Acute cystitis 06/12/2010 03/09/2011 HTN, GOAL BELOW 130/80 06/22/200901/16 Overview: Per [...] below 140/90 07/11/200509/06 Overview: Per HTN Taxonomy. Morbid obesity 08/13/2004 09/25/2023 Overview: Per Obesity Taxonomy Venous insufficiency 04/27/2002 [...] as of this encounter (statuses as of 03/27/2024) Immunizations Name Administration Dates Next Due COVID-19 mRNA, LNP-s, No Pre serve, 2-Dose Series (Money[employer]) 09/09/2020,08/19/2020 Covid-19, Mrna, Lnp-s, Pf, B ivalent, 30 Mcg, IM, 12 yrs and above (Money[employer]) 03/02/2024 Pneumococcal Conjugate Vacc, 13 Valent (Prevnar) [...] ages 0-17 years) Not on file 12/20/2023 Sex and Gender Information Value Date Recorded [...] Care Team (Late st Contact Info) Description 03/31/2024 11:00 AM EST Office Visit Gastroenterology, [facility] [address] [address] Geovanna Bahena CRNP [address] [place] [address] 04/15/2024 8:00 AM EST Office Visit Family Practice [facility] [address] [address] Chris Asencio, DO [address] [address] 04/30/2024 1:30 PM EST Office Visit Orthopaedics [facility] [address] [address] Ino Ortiz, DO [address] [place] [address] 05/04/2024 2:00 PM EST Office Visit Hematology/Oncology [facility] [place] [address] [place] [phone] Henok Stauffer MD [address] [place] [address] 05/12/2024 3:00 PM EST Office Visit Nephrology, [facility] [address] [facility] [place] [address] Eric Day MD [address] [facility] [place] [address] 05/14/2024 2:30 PM EST Office Visit Pharmacy, [place] [address] [place] [address] [facility] [address] [place] [address] 03/19/2025 1:00 PM EDT Office Visit Ophthalmology, [place] [address] [address] Ernie Rivers DO [address] [place] [phone] Pending Results Name Type Priority Associated Diagnoses Date /Time ALBUMIN / CREATININE RATIO, URINE Lab Routine Type 2 diabetes mellitus with hemoglobin A1c goal of less than 8.0% (HCC) Hypertensive kidney disease with stage 3b chronic kidney disease (HCC) 03/27/2024 11:39 AM EDT Scheduled Procedures Name Priority Associated Diagnoses Date/Ti me COLONOSCOPY FLEXIBLE PROXIMA L DIAGNOSTIC Recall Family history of colon cancer Health Maintenance Due Date Last Done Comments Cologuard 1997 Fecal Occult Blood Test 1997 Sigmoidoscopy 1997 Zoster Vaccines (2 of 3) 05/07/2013 03/12/2013 Adult Wellness Visit 10/13/2023 10/12/2022, 01/10/20 21 Depression Monitoring 10/13/2023 10/12/2022 Albumin/Creatinine Ratio 01/25/2024 023, 09/06/2022, 11/24/2021, Additional history exists COVID-19 Vaccine ( season) 2024 03/02/2024, 09/09/2020, 08/19/2020 CKD PHOS USE SMARTSET 08289 09/16/202408/26, 06/18/2023, 06/06/2023, Additional history exists GFR 09/23/2024 03/25/2024, 02/25, 01/06/2024, Additional history exists HbA1c 09/23/2024 03/25/2024, 08/26, 04/24/2023, Additional history exists Diabetic Foot Exam 10/02/2024 10/03/2023, 1 07/24/2019, 04/06/2019, Additional history exists Diabetic Eye Exam 03/05/2025 03/05/2024, , 03/05/2024, Additional history exists Mammogram 03/05/2025 03/05/2024, 07/2022, 02/26/2023, Additional history exists CKD HGB USE SMARTSET 55092 03/25/202503/25, 03/25/2024, 03/16/2024, Additional history exists Colonoscopy 03/17/2026 03/17/2021, 02/25, [...] A1c goal of less than 8.0% (HCC) Hypertensive kidney disease with stage 3b chronic kidney disease (HCC) documented in this encounter Advance Directives Documents on File Type Date Recorded Patient Information Technology Program Manager Expl anation POLST 10/20/2021 [place] [facility] FOR LIFE-SUSTAINING TREATMENT * Full [...] Power of Attor buddy? No Care Teams Supervisor Ride Assembly Relationship Specialty Start Date End Date Chris Asencio DO [address] [place] [address] PCP - General Family Medicine 01/07/18 documented as of this encounter
--- OUTSIDE RECORDS SUMMARY | 2024-09-21 22:45 | External Medical Summary ---
Author Name Unknown Address Unknown Organization [id number]:[facility] [place] [facility] [address] [place] [id number] Laboratory Report Ordering Provider Test Date Status HARLEY LOPEZ 03/27/2024 11:39:50 Final Normal: <30 mg/g creatinine< br/>High: 30-300 mg/g creatinine
Very High: >300 mg/g creatinine
Nephrotic: >2200 mg/g creatinine Observation Date Value Abnormality Reference (Units) Status Albumin, Urine 03/27/2024 11:39:50 <1.20 (mg/dL) Final Creatinine, Urine 03/27/2024 11:39:50 24 (mg/dL) Final ALBUMIN/CREATININE RATIO, HIDE 03/27/2024 11:39:50 Uninterpretable Albumin/Creatinine ratio due to very low albumin and creatinine values. <30 (mg/g Creat) Final Performing Location [facility] [place] - [address] [place] [id number]
[2024-09-22 03:48] LABS: Hematocrit (blood only) 36.2 % (37.0-47.0); Hemoglobin 11.9 g/dl (12.0-16.0); Mean Corpuscular Hemoglobin 29.3 pg (25.0-34.0); Mean Corpuscular Hgb Conc 32.9 g/dL (32.0-36.0); Mean Corpuscular Volume 89.2 fL (80.0-100.0); Mean Platelet Volume 10.4 fL (9.4-12.4); Platelet Count 256 K/uL (130-400); RDW Coefficient of Variation 14.8 % (11.5-14.5); RDW Standard Deviation 47.8 fL (36.4-46.3); Red Blood Count 4.06 M/uL (4.20-5.40); White Blood Count 5.68 K/ul (4.8-10.8)
[2024-09-22 04:03] LABS: Albumin Globulin Ratio 1.2 (0.9-2); Albumin Level 3.6 gm/dl (3.4-5.0); BUN Creatinine Ratio 12.1 (10-20); Bilirubin,Total 0.5 mg/dl (0.2-1.0); Creatinine Clr Calc Pharmacy 52.7 ml/min; Magnesium 1.9 mg/dl (1.7-2.4); Potassium 3.4 mmol/L (3.5-5.1); Total Protein 6.6 gm/dl (6.0-8.3)
[2024-09-22 04:09] LABS: Troponin I High Sensitivity 8.8 pg/ml (0-14)
[2024-09-22] MEDS: ATORVASTATIN 40 MG TAB PO SCH (07:57)
[2024-09-22] MEDS: FAMOTIDINE 40 MG TABLET PO SCH (07:57)
[2024-09-22] MEDS: ASPIRIN 81 MG CHEW PO SCH (07:57)
[2024-09-22] MEDS: MULTIVITAMIN TAB PO SCH (07:57)
[2024-09-22] MEDS: buPROPion SR 100 MG TABCR PO SCH (07:57)
[2024-09-22] MEDS: MONTELUKAST SODIUM 10 MG TABLET PO SCH (07:57)
[2024-09-22] MEDS: FLUTICASONE/VILANTEROL 100/25MCG 14 PUFFS/INHALER INH SCH (07:58)
[2024-09-22] MEDS: METOPROLOL SUCC 25MG EXT REL TAB PO SCH (07:58)
[2024-09-22] MEDS: FERROUS GLUCONATE 324 MG TAB PO SCH (07:59)
[2024-09-22] MEDS: POTASSIUM CHLORIDE / WTR 10 MEQ/100 ML PLCT IV SCH (08:05)
[2024-09-22] MEDS: POTASSIUM CHLORIDE CRTAB 20 MEQ TABCR PO STA (08:05)
--- NOTE | 2024-09-22 08:15 | Hospitalist Progress Note ---
Date of Service September 22, 2024 Assessment & Plan (1) Chest pain: (2) Acute sinusitis: (3) Hypertension: (4) DM type 2 (diabetes mellitus, type 2): (5) Asthma: (6) CKD (chronic kidney disease), stage III: (7) Anemia of chronic disease: Plan Ms. Alejandre is a 74 year old woman complicated past medical history includingdiabetes, on long-term insulin, iron metabolism disease, diabetic retinopathy, hyperlipidemia, moderate persistent asthma, obstructive sleep apnea does not tolerate BiPAP on nocturnal oxygen 3 to 4 L, hypertension, pulmonary hypertension, PVCs, irritable bowel syndrome, GERD, chronic kidney disease stage III, restless leg syndrome, depression, KARI, PTSD, prior COVIDadmitted for chest pain evaluation Dobutamine stress echo negative for ischemia. Orthostats positive. On lasix bid for BLE edema, but not for hf or other agent. Encouraged compression stockings and will monitor intake--encouraged po and holding lasix. Addition of spironolactone in am. Contingent on progress will determine either daily lasix v prn dosing. pending pt/ot eval #Chest pain No events on telemetry, troponin negative x 3 multiple cardiovascular risk factors including type 2 diabetes mellitus hypertension and hyperlipidemia. stress echo negative, Study negative for stress-induced ischemia. Cardiology consutled: add spironolactone 12.5 mg p.o. to regimen with close laboratory follow-up consider treating obstructive sleep apnea. -Will add spironolactone in am and consider prn lasix dosing for her edema #KATERIN with nocturnal hypoxa on 3-4L o2 continue nocturnal o2 #Relative Hypotension, +orthostats #Hypertension chronic, currently hypotensive. Holding lasix for now continue BB PT/OT eval given reported dizziness #Chronic renal kidney disease stage III #History of ATN 2/2 sepsis Patient with multiple hospitalizations with acute renal failure; thought to be multifactorial 2/2 HTN/DMTII and NSAID abuse. Autoimmune/serologic tests negative -sepsis induced ATN with a high creatinine peaking around 13 during admission November 2022 that was responsive to fluids and she did not require hemodialysis -avoid NSAIDs, ACEI and diuretics. -Hold lasix at this time 2/2 hypotension, trend bmp #Hypokalemia K 3.1 on admission Hold lasix for now 2/2 hypotension Replace K prn and start daily supplement especially for resumption of diuertic #DMTII chronic, well controlled on group home insulin therapy. Cont basal/bolus insulin. Continue ASA 81 #Morbid Obesity weight loss recommended for overall better health. #IBS, diarrhea -Continue home Lomotil and methscopolamine prn for diarrhea/cramps #PVCS Continue Metoprolol 25mg daily #Primary PHTN #KATERIN on noctural O2 -Did not tolerate BiPAP Continue nocturnal O2 3-4L #Asthma Continue breo ellipta inhalers and montelukast #Anemia of chronic disease -Follow Dr. Stauffer, established care 06/03/2023 Hgb baseline ~10, stable at this time -Continue trend CBC, transfuse <7.0 #HLD Continue statin #Anxiety chronic, controlled. Cont scheduled clonazepam per home regimen and doxepin. Heparin-DVT proph Full Code Admission and Anticipated Discharge Date Admission Date: September 21, 2024 Subjective Reports dizziness when standing and recent near falls states she has been experiencing intermittent chest pains reports feeling it was initially related to Klonopin which she has now reduced her dosing Denies any current chest pain, palpitations, or other acute concerns Physical Exam Constitutional: WD/WN, vitals as above anxious Respiratory: normal respiratory effort, lungs clear to auscultation Cardiovascular: RRR, no murmur, no edema Gastrointestinal (Abdomen): normal bowel sounds, soft, nontender, no hepatosplenomegaly Results & Data Results & Data Vital Signs (Past 12 Hours) Vital Signs Temp Pulse Pulse Resp BP BP Pulse Ox 09/22/24 08:00 36.4 C L 57 L 16 92/61 L 96 09/22/24 07:24 55 L 09/22/24 07:03 68 16 97 09/22/24 03:28 36.6 C 52 L 20 124/78 95 09/22/24 00:38 09/21/24 22:20 56 L 09/21/24 22:00 36.5 C 61 18 144/85 H 96 09/21/24 21:00 55 L 17 109/64 97 09/21/24 20:14 60 14 99 O2 Del Method FiO2 09/22/24 08:00 Room Air 09/22/24 07:24 09/22/24 07:03 Room Air 09/22/24 03:28 Room Air 09/22/24 00:38 Room Air 09/21/24 22:20 09/21/24 22:00 Room Air 09/21/24 21:00 Room Air 09/21/24 20:14 Room Air 21 Laboratory Results Short CBC 09/21/24 09/22/24 Range/Units 13:18 03:29 WBC 6.93 5.68 (4.8-10.8) K/ul Hgb 13.2 11.9 L (12.0-16.0) g/dl Hct 39.2 36.2 L (37.0-47.0) % Plt Count 285 256 (130-400) K/uL BMP 09/21/24 09/22/24 13:18 03:29 Sodium 138 139 Potassium 3.1 L 3.4 L Chloride 100 102 Carbon Dioxide 29 31 BUN 16 16 Creatinine 1.29 H 1.32 H Glucose 159 H 105 H Calcium 9.3 9.0 Liver Function 09/21/24 09/22/24 Range/Units 13:18 03:29 Total Bilirubin 0.6 0.5 (0.2-1.0) mg/dl AST 15 13 (13-39) U/L ALT 13 10 (7-52) U/L Alkaline Phosphatase 116 H 99 (34-104) U/L Albumin 4.2 3.6 (3.4-5.0) gm/dl Medications Administered Home Medications Medication Instructions Recorded Confirmed Last Taken methscopolamine 2.5 mg tablet 2.5 mg PO TID PRN ABD CRAMPS 05/03/18 09/21/24 06/19/23 diclofenac sodium 1 % topical gel 2 g topical QID PRN joint pain 07/22/18 09/21/24 06/19/23 fluticasone furoate 100 1 inh inhalation QA 07/22/18 09/21/24 09/21/24 mcg-vilanterol 25 mcg/dose inhalation powder (Breo Ellipta) aspirin 81 mg chewable tablet 81 mg PO QA 09/14/21 09/21/24 09/21/24 atorvastatin 40 mg tablet 40 mg PO QA 09/14/21 09/21/24 09/21/24 clonazepam 0.5 mg tablet 0.5 mg PO .1-2XDAILY Anxiety 09/14/21 09/21/24 06/19/23 famotidine 40 mg tablet 40 mg PO QA 09/14/21 09/21/24 09/21/24 fluticasone propionate 50 2 spray intranasal BID 09/14/21 09/21/24 09/21/24 08:00 mcg/actuation nasal spray,suspension metoprolol succinate 25 mg See Rx Instructions .Route .COMPLEX 09/14/21 09/21/24 09/21/24 08:00 tablet,extended release 24 hr montelukast 10 mg tablet 10 mg PO QAM 09/14/21 09/21/24 09/21/24 pramipexole 1 mg tablet 1 mg PO HS 09/14/21 09/21/24 09/20/24 ferrous gluconate 240 mg (27 mg 240 mg PO Q OTHER DAY 12/12/22 09/21/24 09/20/24 iron) tablet (Ferate) pantoprazole 40 mg tablet,delayed 40 mg PO BID #60 tabs 12/22/22 09/21/24 09/21/24 08:00 release budesonide 0.5 mg/2 mL suspension 0.5 mg inhalation BID 06/19/23 09/21/24 09/21/24 08:00 for nebulization conjugated estrogens 0.625 mg/gram 1 applic vaginal 3XWK 06/19/23 09/21/24 06/18/23 vaginal cream (Premarin) doxepin 150 mg capsule 150 mg PO HS 06/19/23 09/21/24 09/20/24 insulin aspart U-100 100 unit/mL 10 unit subcut TIDM 06/19/23 09/21/24 09/21/24 (3 mL) subcutaneous pen (Novolog FlexPen U-100 Insulin aspart) Calcium/Vitamin D/Zinc Supp. 1 tab PO BID 09/21/24 09/21/24 09/21/24 08:00 acetaminophen 500 mg tablet 1,000 mg PO BID 09/21/24 09/21/24 09/21/24 08:00 (Tylenol Extra Strength) albuterol sulfate 2.5 mg/3 mL 2.5 mg inhalation Q4H PRN 09/21/24 09/21/24 Unknown (0.083 %) solution for nebulization Shortness Of Breath Or Wheezing albuterol sulfate 90 mcg/actuation 1 - 2 inh inhalation Q4H PRN 09/21/24 09/21/24 Unknown aerosol inhaler Shortness Of Breath Or Wheezing amoxicillin 875 mg tablet 875 mg PO BID 09/21/24 09/21/24 09/21/24 08:00 ascorbic acid (vitamin C) 500 mg 500 mg PO BID 09/21/24 09/21/24 09/21/24 08:00 tablet (Vitamin C) benzonatate 100 mg capsule 100 mg PO TID PRN Cough 09/21/24 09/21/24 Unknown bupropion HCl 100 mg tablet,12 hr 100 mg PO QAM 09/21/24 09/21/24 09/21/24 sustained-release (Wellbutrin SR) calcitonin (salmon) 200 200 unit intranasal (ALT) QAM 09/21/24 09/21/24 09/21/24 unit/actuation nasal spray diphenoxylate-atropine 2.5 2 tab PO Q6H PRN Diarrhea 09/21/24 09/21/24 Unknown mg-0.025 mg tablet (Lomotil) dulaglutide 3 mg/0.5 mL 3 mg subcut WK 09/21/24 09/21/24 Unknown subcutaneous pen injector (Trulicity) epinephrine 0.3 mg/0.3 mL 0.3 mg IM DIRECTED PRN Allergic 09/21/24 09/21/24 Unknown injection, auto-injector (EpiPen) Reaction furosemide 20 mg tablet (Lasix) 20 mg PO BID 09/21/24 09/21/24 09/21/24 08:00 insulin glargine 100 unit/mL (3 28 unit subcut QAM 09/21/24 09/21/24 09/21/24 mL) subcutaneous pen (Lantus Solostar U-100 Insulin) molnupiravir 200 mg capsule (EUA) 800 mg PO Q12H 09/21/24 09/21/24 09/21/24 08:00 multivitamin 1 tab PO DAILY 09/21/24 09/21/24 09/21/24 propylene glycol 0.6 % eye drops 1 drp OPB QID 09/21/24 09/21/24 09/21/24 (Systane Complete) triamcinolone acetonide 0.1 % 1 applic topical BID PRN SKIN 09/21/24 09/21/24 Unknown topical ointment IRRITATIONS Active Medications Generic Name Dose Route Start Last Admin Trade Name Freq PRN Reason Stop Dose Admin Acetaminophen 650 mg 09/21/24 21:39 09/22/24 12:02 Acetaminophen 325 Mg Tab PO 10/21/24 21:38 650 mg Q4H PRN Administration Pain or Fever Artificial Tears 1 drops 09/21/24 21:00 09/22/24 07:58 Artificial Tears OP 10/21/24 20:59 1 drops QID FRANCESCO Administration Ascorbic Acid 500 mg 09/21/24 21:00 09/22/24 07:56 Ascorbic Acid 500 Mg Tab PO 10/21/24 20:59 500 mg BID FRANCESCO Administration Aspirin 81 mg 09/22/24 09:00 09/22/24 07:57 Aspirin 81 Mg Chew PO 10/22/24 08:59 81 mg QAM FRANCESCO Administration Atorvastatin Calcium 40 mg 09/22/24 09:00 09/22/24 07:57 Atorvastatin 40 Mg Tab PO 10/22/24 08:59 40 mg QAM FRANCESCO Administration Budesonide 0.5 mg 09/21/24 21:00 09/22/24 07:01 Budesonide 0.5 Mg/2 Ml Vial (Pulmicort) INH 10/21/24 20:59 0.5 mg BID FRANCESCO Administration Bupropion HCl 100 mg 09/22/24 09:00 09/22/24 07:57 Bupropion Sr 100 Mg Tabcr PO 10/22/24 08:59 100 mg QAM FRANCESCO Administration Clonazepam 0.5 mg 09/21/24 18:15 09/22/24 12:02 Clonazepam 0.5 Mg Tab PO 10/21/24 18:14 0.5 mg BID PRN Administration Anxiety Doxepin HCl 150 mg 09/21/24 21:00 09/21/24 22:01 Doxepin Hcl 75 Mg Capsule PO 10/21/24 20:59 150 mg HS FRANCESCO Administration Famotidine 40 mg 09/22/24 09:00 09/22/24 07:57 Famotidine 40 Mg Tablet PO 10/22/24 08:59 40 mg QAM FRANCESCO Administration Ferrous Gluconate 324 mg 09/22/24 09:00 09/22/24 07:59 Ferrous Gluconate 324 Mg Tab PO 10/22/24 08:59 324 mg Q48H FRANCESCO Administration Fluticasone Propionate 2 sprays 09/21/24 21:00 09/22/24 07:58 Fluticasone Propionate Na Spr 16 Gm Btl NA 10/21/24 20:59 2 sprays BID FRANCESCO Administration Fluticasone/Vilanterol 1 puffs 09/22/24 09:00 09/22/24 07:58 Fluticasone/Vilanterol 100/25mcg 14 Puffs/Inhaler INH 10/22/24 08:59 1 puffs QAM FRANCESCO Administration Furosemide 20 mg 09/21/24 21:00 09/22/24 07:56 Furosemide 20 Mg Tab PO 10/21/24 20:59 20 mg [id number] FRANCESCO Administration Heparin Sodium (Porcine) 7,500 units 09/21/24 21:39 09/22/24 08:05 Heparin Sod 5,000 Unit/0.5 Ml Vial SQ 10/21/24 21:38 7,500 units Q12 FRANCESCO Administration Insulin Aspart 0 units 09/21/24 22:00 09/22/24 06:27 Insulin Aspart Per Unit Charge SC 10/21/24 21:59 Not Given Q6 FRANCESCO Metoprolol Succinate 25 mg 09/22/24 09:00 09/22/24 07:58 Metoprolol Succ 25mg Ext Rel Tab PO 10/21/24 18:14 Not Given QAM FRANCESCO Metoprolol Succinate 12.5 mg 09/21/24 21:00 09/21/24 22:16 Metoprolol Succ 25mg Ext Rel Tab PO 10/21/24 20:59 Not Given HS FRANCESCO Montelukast Sodium 10 mg 09/22/24 09:00 09/22/24 07:57 Montelukast Sodium 10 Mg Tablet PO 10/22/24 08:59 10 mg QAM FRANCESCO Administration Multivitamins 1 tab 09/22/24 09:00 09/22/24 07:57 Multivitamin Tab PO 10/22/24 08:59 1 tab DAILY FRANCESCO Administration Pantoprazole Sodium 40 mg 09/21/24 21:00 09/22/24 07:56 Pantoprazole 40 Mg Tab PO 10/21/24 20:59 40 mg BID FRANCESCO Administration Pramipexole Dihydrochloride 1 mg 09/21/24 21:00 09/21/24 22:00 Pramipexole Dihydrochlo 0.5 Mg Tab PO 10/21/24 20:59 1 mg HS FRANCESCO Administration (1) Chest pain Chest pain type: unspecified Qualified Code(s): R07.9 - Chest pain, unspecified (2) Acute sinusitis Recurrence: not specified as recurrent Sinusitis location: unspecified location Qualified Code(s): J01.90 - Acute sinusitis, unspecified (3) Hypertension Hypertension type: unspecified Qualified Code(s): I10 - Essential (primary) hypertension (4) DM type 2 (diabetes mellitus, type 2) Diabetes mellitus complication detail: with diabetic retinopathy Diabetes mellitus complication status: with ophthalmic complications Diabetes mellitus group home insulin use: with intermission coordinator use Diabetes mellitus macular edema: macular edema presence unspecified Diabetic retinopathy severity: with unspecified retinopathy severity Laterality: bilateral Qualified Code(s): E11.319 - Type 2 diabetes mellitus with unspecified diabetic retinopathy without macular edema; 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
[2024-09-22 11:06] LABS: Estimated Average Glucose 154 mg/dl
[2024-09-22] MEDS: ATROPINE SULFATE 0.1 MG/ML 10ML SYR IV ONE (11:16)
[2024-09-22] MEDS: DOBUTamine HCL 12.5 MG/ML 20 ML VIAL IV ONE (11:17)
[2024-09-22] MEDS: METOPROLOL TARTRATE 1 MG/ML VIAL IV ONE (11:17)
--- NOTE | 2024-09-22 12:00 | Cardiology Consultation ---
Date of Consultation September 22, 2024 Assessment & Plan (1) Chest pain: (2) CKD (chronic kidney disease), stage III: Plan 74-year-old female with multiple cardiovascular risk factors including type 2 diabetes mellitus hypertension and hyperlipidemia. Presented with chest pain wi th radiation to the shoulder and angle of the jaw but without evidence of myocardial injury or ischemia by EKG or cardiac enzyme. Vague dizziness and complaints this morning recent treatment for sinusitis. Discussed options for management and assessment. Prior history of acute renal insufficiency with septic shock and stage class IIIa chronic renal insufficiency. Patient reluctant to undergo any dye administration if can be avoided. Will refer for dobutamine stress echocardiography and reassess risk factors. Dobutamine stress echocardiography negative for ischemia with excellent quality imaging obtained. Patient achieved 85% age-predicted maximal heart rate. Brief sharp chest pains in association with 2 isolated ventricular ectopic beats but otherwise no complaints. Study negative for stress-induced ischemia. Recommendations: Stress testing as noted above would add spironolactone 12.5 mg p.o. to regimen with close laboratory follow-up consider treating obstructive sleep apnea. History of Present Illness Reason for Consultation: Chest pain Requesting Physician: Dr. Barnard Attending Physician: Valeria Barnard MD History of Present Illness Patient is a 74-year-old female with underlying medical concerns which include 1. Type 2 diabetes mellitus, insulin requiring 2. CKD stage III with past acute renal insufficiency 3. Asthmatic lung disease 4. Acute sinusitis treated with amoxicillin 1 week ago 5. Chronic pain and depression 6. Hyperlipidemia on therapy 7. Obstructive sleep apnea not on therapies Patient referred for evaluation after ER presentation with symptoms of substernal pain radiating to angle of jaw and shoulders. Symptoms eased by nitroglycerin in the emergency room but no acute EKG changes or troponin elevation. Vague chest discomfort earlier this morning on awakening. No recent history of myocardial infarction angina or congestive heart failure. Prior evaluation by stress testing in the past negative for ischemia 2020 but no recent studies No bleeding issues no melena Hematochezia dysuria hematuria followed by nephrology and hematology. Significant sinusitis per patient with purulent drainage improved with course of amoxicillin. Recent cough improved Allergies Allergy/AdvReac Type Severity Reaction Status Date / Time bee venom protein (honey bee) Allergy Severe ANAPHYLAXIS Verified 09/21/24 15:55 iodine Allergy Severe ANAPHYLAXIS Verified 09/21/24 15:55 -SHELLFISH shellfish derived Allergy Severe SWELLING Verified 09/21/24 15:55 OF FACE AND MOUTH colestipol Allergy Intermediate RASH Verified 09/21/24 15:55 doxycycline Allergy Intermediate HIVES Verified 09/21/24 15:55 glimepiride Allergy Intermediate RASH Verified 09/21/24 15:55 glyburide Allergy Intermediate RASH Verified 09/21/24 15:55 metformin Allergy Intermediate RASH Verified 09/21/24 15:55 pioglitazone Allergy Intermediate RASH Verified 09/21/24 15:55 rosuvastatin Allergy Intermediate ITCHING Verified 09/21/24 15:55 RASH ondansetron [From Zofran] Allergy Unknown Unknown Verified 09/21/24 15:55 amitriptyline [From Elavil] AdvReac Intermediate WT GAIN Verified 09/21/24 15:55 diphenhydramine AdvReac Intermediate HEAD GOES Verified 09/21/24 15:55 CRAZY-RINGING EARS,STRANGE hydroxyzine AdvReac Intermediate MENTAL Verified 09/21/24 15:55 CONFUSION melatonin AdvReac Intermediate Causes Verified 09/21/24 15:55 insomnia and makes me wide awake pseudoephedrine AdvReac Intermediate JITTERINESS Verified 09/21/24 15:55 tramadol AdvReac Intermediate EARS RING, Verified 09/21/24 15:55 FUZZY VISION sulfamethoxazole AdvReac Unknown Unknown Verified 09/21/24 15:55 [From Bactrim] trimethoprim [From Bactrim] AdvReac Unknown Unknown Verified 09/21/24 15:55 Home Medications Medication Instructions Recorded Confirmed Type methscopolamine 2.5 mg tablet 2.5 mg PO TID PRN ABD CRAMPS 05/03/18 09/21/24 History diclofenac sodium 1 % topical gel 2 g topical QID PRN joint pain 07/22/1809/21 History fluticasone furoate 100 1 inh inhalation QAM 07/22/18 09/21/24 History mcg-vilanterol 25 mcg/dose inhalation powder (Breo Ellipta) aspirin 81 mg chewable tablet 81 mg PO QAM 09/14/21 09/21/24 History atorvastatin 40 mg tablet 40 mg PO QAM 09/14/21 09/21/24 History clonazepam 0.5 mg tablet 0.5 mg PO .1-2XDAILY Anxiety 09/14/21 09/21/24 History famotidine 40 mg tablet 40 mg PO QAM 09/14/21 09/21/24 History fluticasone propionate 50 2 spray intranasal BID 09/14/21 09/21/24 History mcg/actuation nasal spray,suspension metoprolol succinate 25 mg See Rx Instructions .Route .COMPLEX 09/14/21 09/21/24 History tablet,extended release 24 hr montelukast 10 mg tablet 10 mg PO QAM 09/14/21 09/21/24 History pramipexole 1 mg tablet 1 mg PO HS 09/14/21 09/21/24 History ferrous gluconate 240 mg (27 mg 240 mg PO Q OTHER DAY 12/12/22 09/21/24 History iron) tablet (Ferate) pantoprazole 40 mg tablet,delayed 40 mg PO BID #60 tabs 12/22/22 09/21/24 Rx release budesonide 0.5 mg/2 mL suspension 0.5 mg inhalation BID 06/19/23 09/21/24 History for nebulization conjugated estrogens 0.625 mg/gram 1 applic vaginal 3XWK 06/19/23 09/21/24 History vaginal cream (Premarin) doxepin 150 mg capsule 150 mg PO HS 06/19/23 09/21/24 History insulin aspart U-100 100 unit/mL 10 unit subcut TIDM 06/19/23 09/21/24 History (3 mL) subcutaneous pen (Novolog FlexPen U-100 Insulin aspart) Calcium/Vitamin D/Zinc Supp. 1 tab PO BID 09/21/24 09/21/24 History acetaminophen 500 mg tablet 1,000 mg PO BID 09/21/24 09/21/24 History (Tylenol Extra Strength) albuterol sulfate 2.5 mg/3 mL 2.5 mg inhalation Q4H PRN 09/21/24 09/21/24 History (0.083 %) solution for nebulization Shortness Of Breath Or Wheezing albuterol sulfate 90 mcg/actuation 1 - 2 inh inhalation Q4H PRN 09/21/24 09/21/24 History aerosol inhaler Shortness Of Breath Or Wheezing amoxicillin 875 mg tablet 875 mg PO BID 09/21/24 09/21/24 History ascorbic acid (vitamin C) 500 mg 500 mg PO BID 09/21/24 09/21/24 History tablet (Vitamin C) benzonatate 100 mg capsule 100 mg PO TID PRN Cough 09/21/24 09/21/24 History bupropion HCl 100 mg tablet,12 hr 100 mg PO QAM 09/21/24 09/21/24 History sustained-release (Wellbutrin SR) calcitonin (salmon) 200 200 unit intranasal (ALT) QAM 09/21/24 09/21/24 History unit/actuation nasal spray diphenoxylate-atropine 2.5 2 tab PO Q6H PRN Diarrhea 09/21/24 09/21/24 History mg-0.025 mg tablet (Lomotil) dulaglutide 3 mg/0.5 mL 3 mg subcut WK 09/21/24 09/21/24 History subcutaneous pen injector (Trulicity) epinephrine 0.3 mg/0.3 mL 0.3 mg IM DIRECTED PRN Allergic 09/21/24 09/21/24 History injection, auto-injector (EpiPen) Reaction furosemide 20 mg tablet (Lasix) 20 mg PO BID 09/21/24 09/21/24 History insulin glargine 100 unit/mL (3 28 unit subcut QAM 09/21/24 09/21/24 History mL) subcutaneous pen (Lantus Solostar U-100 Insulin) molnupiravir 200 mg capsule (EUA) 800 mg PO Q12H 09/21/24 09/21/24 History multivitamin 1 tab PO DAILY 09/21/24 09/21/24 History propylene glycol 0.6 % eye drops 1 drp OPB QID 09/21/24 09/21/24 History (Systane Complete) triamcinolone acetonide 0.1 % 1 applic topical BID PRN SKIN 09/21/24 09/21/24 History topical ointment IRRITATIONS Patient History Medical History DAVONTE (acute kidney injury) Pulmonary HTN 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 Neuropathy DIABETIC NEUROPATHY- FEET Chronic back pain LOWER Osteoarthritis Temporomandibular joint disorder + CLICKING; NO LOCKING Diverticular disease GERD (gastroesophageal reflux disease) CONTROLLED Asthma moderate persistent Migraine Surgical History Perianal abscess S/P DRAINAGE History of repair of rotator cuff B/L History of esophagogastroduodenoscopy (EGD) History of colonoscopy 02/2021, sigmoid diverticulosis, poor prep History of total knee replacement LEFT Family History Sister Family history of diabetes mellitus Family hx of colon cancer Brother Family history of diabetes mellitus Grandmother (Maternal) Family history of diabetes mellitus Family/Other Family history of diabetes mellitus Other Diabetes Social History Smoking Status: Never smoker Second Hand Exposure: No; Do You Dip or Chew Tobacco: No; Hx Alcohol Use: No Hx Substance Use: No Preferred Language: Macanese Communication Ability: Effective 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 Beliefs That Will Affect Care: None marital status: Current Living Situation: Spouse Current Living Situation Comment: home current occupational status: retired Other Information That Helps Us Care for You: No Feels Safe at Home: Yes Safety Concerns: Feels Safe At This Time Assistive Devices: Cane and Walker Review of Systems Review of Systems: All systems reviewed & are unremarkable except as noted in HPI & below Physical Exam Constitutional: + obese; no acute distress Eyes: PERRL, conjunctivae normal, anicteric sclerae ENMT: external ear and nose normal, oropharynx normal Neck: trachea midline, no thyromegaly Respiratory: normal respiratory effort, lungs clear to auscultation Cardiovascular: Rate/Rhythm: regular rate and regular rhythm Heart Sounds: normal S1 and normal S2; no murmur Vessels: normal carotid upstroke; no JVD Extremities: + pedal edema Gastrointestinal (Abdomen): normal bowel sounds, soft, nontender, no hepatosplenomegaly Results & Data Vital Signs (Past 12 Hours) Vital Signs Temp Pulse Pulse Resp BP BP Pulse Ox 09/22/24 11:49 36.4 C L 18 92 09/22/24 08:00 36.4 C L 57 L 16 92/61 L 96 09/22/24 07:24 55 L 09/22/24 07:03 68 16 97 09/22/24 03:28 36.6 C 52 L 20 124/78 95 09/22/24 00:38 O2 Del Method 09/22/24 11:49 Room Air 09/22/24 08:00 Room Air 09/22/24 07:24 09/22/24 07:03 Room Air 09/22/24 03:28 Room Air 09/22/24 00:38 Room Air Laboratory Results Laboratory Results - last 24 hr 09/21/24 09/21/24 09/21/24 13:18 16:16 18:33 WBC 6.93 RBC 4.46 Hgb 13.2 Hct 39.2 MCV 87.9 MCH 29.6 MCHC 33.7 RDW Std Deviation 46.8 H RDW Coeff of Pérez 14.6 H Plt Count 285 MPV 10.9 Immature Gran % (Auto) 0.3 Neut % (Auto) 58.5 Lymph % (Auto) 30.9 [place] % (Auto) 7.4 Eos % (Auto) 2.5 Baso % (Auto) 0.4 Neut # (Auto) 4.06 Lymph # (Auto) 2.14 [place] # (Auto) 0.51 Eos # (Auto) 0.17 Baso # (Auto) 0.03 Immature Gran # (Auto) 0.02 PT 10.4 INR 1.0 APTT 26 PTT Ratio 1.0 Sodium 138 Potassium 3.1 L Chloride 100 Carbon Dioxide 29 Anion Gap 9 BUN 16 Creatinine 1.29 H Est Cr Clr Drug Dosing 54.0 eGFR 44.10 BUN/Creatinine Ratio 12.4 Glucose 159 H POC Glucose 91 Estimat Average Glucose Hemoglobin A1c Calcium 9.3 Magnesium Total Bilirubin 0.6 AST 15 ALT 13 Alkaline Phosphatase 116 H Troponin I High Sens 7.1 9.4 Total Protein 8.0 Albumin 4.2 Globulin 3.8 Albumin/Globulin Ratio 1.1 Lipase 40 09/21/24 09/21/24 09/22/24 22:08 23:18 03:29 WBC 5.68 RBC 4.06 L Hgb 11.9 L Hct 36.2 L MCV 89.2 MCH 29.3 MCHC 32.9 RDW Std Deviation 47.8 H RDW Coeff of Pérez 14.8 H Plt Count 256 MPV 10.4 Immature Gran % (Auto) Neut % (Auto) Lymph % (Auto) [place] % (Auto) Eos % (Auto) Baso % (Auto) Neut # (Auto) Lymph # (Auto) [place] # (Auto) Eos # (Auto) Baso # (Auto) Immature Gran # (Auto) PT INR APTT PTT Ratio Sodium 139 Potassium 3.4 L Chloride 102 Carbon Dioxide 31 Anion Gap 6 BUN 16 Creatinine 1.32 H Est Cr Clr Drug Dosing 52.7 eGFR 42.90 BUN/Creatinine Ratio 12.1 Glucose 105 H POC Glucose 150 H Estimat Average Glucose 154 Hemoglobin A1c 7.0 H Calcium 9.0 Magnesium 1.9 Total Bilirubin 0.5 AST 13 ALT 10 Alkaline Phosphatase 99 Troponin I High Sens 7.4 8.8 Total Protein 6.6 Albumin 3.6 Globulin 3.0 Albumin/Globulin Ratio 1.2 Lipase 09/22/24 09/22/24 06:21 11:41 WBC RBC Hgb Hct MCV MCH MCHC RDW Std Deviation RDW Coeff of Pérez Plt Count MPV Immature Gran % (Auto) Neut % (Auto) Lymph % (Auto) [place] % (Auto) Eos % (Auto) Baso % (Auto) Neut # (Auto) Lymph # (Auto) [place] # (Auto) Eos # (Auto) Baso # (Auto) Immature Gran # (Auto) PT INR APTT PTT Ratio Sodium Potassium Chloride Carbon Dioxide Anion Gap BUN Creatinine Est Cr Clr Drug Dosing eGFR BUN/Creatinine Ratio Glucose POC Glucose 112 H Estimat Average Glucose Hemoglobin A1c Calcium Magnesium Total Bilirubin AST ALT Alkaline Phosphatase Troponin I High Sens Pending Total Protein Albumin Globulin Albumin/Globulin Ratio Lipase (2) CKD (chronic kidney disease), stage III Chronic kidney disease stage 3 subtype: unspecified whether 3a or 3b Qualified Code(s): N18.30 - Chronic kidney disease, stage 3 unspecified
[2024-09-22] MEDS: clonazePAM 0.5 MG TAB PO PRN (12:02)
[2024-09-22] MEDS: ACETAMINOPHEN 325 MG TAB PO PRN (12:02)
[2024-09-22] MEDS: LANTUS PER UNIT CHARGE SQ SCH ×2 (13:54→14:01)
[2024-09-22] MEDS: INSULIN ASPART PER UNIT CHARGE SC SCH (14:00)
--- NOTE | 2024-09-22 14:07 | Pharmacy Report ---
Pharmacy Glycemic Short Note 2 - Date of Service September 22, 2024 - Glycemic Short BSG Results (Last 24 hours): 09/21/24 09/21/24 09/21/24 13:18 18:33 22:08 Glucose 159 H POC Glucose 91 150 H 09/22/24 09/22/24 09/22/24 03:29 06:21 13:21 Glucose 105 H POC Glucose 112 H 137 H OUTPATIENT ANTIDIABETIC REGIMEN: * Lantus 28 units SQ QAM * Trulicity 3mg QWK * NovoLog 10 units TIDM * HbA1c 7.0% (09/22/24) 6.4% (12/13/22) ASSESSMENT: * Liane is a 74 year old female admitted with chest pain and a history of type 2 diabetes mellitus. Pharmacy has been consulted to assist with glycemic manag ement while inpatient. * BSG upon admission acceptable, diet just started with lunch, will give approximately half of home insulin dosage to start * NovoLog at a weight based stress of 2 PLAN FOR INPATIENT GLYCEMIC CONTROL: * Hold outpatient oral diabetes medications * Basal insulin * Lantus 15 units SQ QAM * Bolus insulin * NovoLog per scale ACHS or Q6hrs while NPO * Goal Range: Low 110 mg/dL - High 140 mg/dL * Correction Factor: 20 mg/dL/unit * Nutritional / Prandial insulin per carb ratio of 1 unit per 6 grams CHO consumed
[2024-09-23 07:57] LABS: Hemoglobin 11.5 g/dl (12.0-16.0); Mean Corpuscular Hemoglobin 29.4 pg (25.0-34.0); Mean Corpuscular Hgb Conc 32.9 g/dL (32.0-36.0); Mean Corpuscular Volume 89.5 fL (80.0-100.0); Mean Platelet Volume 10.6 fL (9.4-12.4); Platelet Count 220 K/uL (130-400); RDW Coefficient of Variation 15.1 % (11.5-14.5); RDW Standard Deviation 49.5 fL (36.4-46.3); Red Blood Count 3.91 M/uL (4.20-5.40); White Blood Count 4.83 K/ul (4.8-10.8)
[2024-09-23 08:34] LABS: BUN Creatinine Ratio 16.5 (10-20); Calcium 9.3 mg/dl (8.6-10.3); Creatinine Clr Calc Pharmacy 60.9 ml/min; Magnesium 2.1 mg/dl (1.7-2.4); Phosphorus 3.2 mg/dl (2.5-4.9); Potassium 4.2 mmol/L (3.5-5.1)
[2024-09-23] MEDS ORDERED: LANTUS PER UNIT CHARGE SQ SCH (09:00)
[2024-09-23] MEDS: LANTUS PER UNIT CHARGE SQ SCH (09:09)
[2024-09-23] MEDS: POTASSIUM CHLORIDE CRTAB 20 MEQ TABCR PO SCH (09:10)
[2024-09-23] MEDS: SPIRONOLACTONE 12.5 MG TAB PO SCH (09:14)
--- NOTE | 2024-09-23 11:07 | Pharmacy Report ---
Pharmacy Glycemic Short Note 2 - Date of Service September 23, 2024 - Glycemic Short BSG Results (Last 24 hours): 09/22/24 09/22/24 09/22/24 13:21 17:04 17:40 Glucose POC Glucose 137 H 93 85 09/22/24 09/23/24 09/23/24 20:34 07:27 08:06 Glucose 137 H POC Glucose 120 H 152 H OUTPATIENT ANTIDIABETIC REGIMEN: * Lantus 28 units SQ QAM * Trulicity 3mg QWK * NovoLog 10 units TIDM * HbA1c 7.0% (09/22/24) 6.4% (12/13/22) ASSESSMENT: 09/23 * Liane received 22 units of insulin yesterday (15 were basal) * Fasting BSG this AM acceptable, continue current basal regimen * BSG below goal range yesterday at dinner, likely due to too much carbohydrate coverage, will loosen NovoLog parameters. 09/22: * Liane is a 74 year old female admitted with chest pain and a history of type 2 diabetes mellitus. Pharmacy has been consulted to assist with glycemic management while inpatient. * BSG upon admission acceptable, diet just started with lunch, will give approximately half of home insulin dosage to start * NovoLog at a weight based stress of 2 PLAN FOR INPATIENT GLYCEMIC CONTROL: * Hold outpatient oral diabetes medications * Basal insulin * Lantus 15 units SQ QAM * Bolus insulin * NovoLog per scale ACHS or Q6hrs while NPO * Goal Range: Low 110 mg/dL - High 140 mg/dL * Correction Factor: 25 mg/dL/unit * Nutritional / Prandial insulin per carb ratio of 1 unit per 8 grams CHO consumed
--- NOTE | 2024-09-23 11:28 | Hospitalist Progress Note ---
Date of Service September 23, 2024 Assessment & Plan (1) Chest pain: (2) Acute sinusitis: (3) Hypertension: (4) DM type 2 (diabetes mellitus, type 2): (5) Asthma: (6) CKD (chronic kidney disease), stage III: (7) Anemia of chronic disease: Plan Ms. Alejandre is a 74 year old woman complicated past medical history includingdiabetes, on long-term insulin, iron metabolism disease, diabetic retinopathy, hyperlipidemia, moderate persistent asthma, obstructive sleep apnea does not tolerate BiPAP on nocturnal oxygen 3 to 4 L, hypertension, pulmonary hypertension, PVCs, irritable bowel syndrome, GERD, chronic kidney disease stage III, restless leg syndrome, depression, KARI, PTSD, prior COVIDadmitted for chest pain evaluation Dobutamine stress echo negative for ischemia. Orthostats positive. On lasix bid for BLE edema, but not for hf or other agent. Encouraged compression stockings and will monitor intake--encouraged po and holding lasix. Chest pain No events on telemetry, troponin negative x 3 multiple cardiovascular risk factors including type 2 diabetes mellitus hypertension and hyperlipidemia. stress echo negative, Study negative for stress-induced ischemia. Cardiology consulted, recommended/stated the following: -add spironolactone 12.5 mg p.o. to regimen with close laboratory follow-up -consider treating obstructive sleep apnea. -spironolactone 12.5mg added, monitor -consider resuming lasix prn Primary PHTN KATERIN Did not tolerate BiPAP Continue nocturnal O2 3-4L Relative Hypotension, +orthostats Hypertension chronic, initially hypotensive. Holding lasix for now continue BB on spironolactone PT/OT eval given reported dizziness -orthostats x 2 subsequently have been normal Chronic renal kidney disease stage III History of ATN 2/2 sepsis Patient with multiple hospitalizations with acute renal failure; thought to be multifactorial 2/2 HTN/DMTII and NSAID abuse. Autoimmune/serologic tests negative -sepsis induced ATN with a high creatinine peaking around 13 during admission November 2022 that was responsive to fluids and she did not require hemodialysis -avoid NSAIDs, ACEI and diuretics. -Hold lasix at this time 2/2 hypotension, trend bmp Hypokalemia replete as needed DMTII chronic, well controlled on terminal operations supervisor insulin therapy. Cont basal/bolus insulin. Continue ASA 81 Morbid Obesity weight loss recommended for overall better health. IBS, diarrhea -Continue home Lomotil and methscopolamine prn for diarrhea/cramps PVC Continue Metoprolol 25mg daily Asthma Continue breo ellipta inhalers and montelukast Anemia of chronic disease Follow Dr. Stauffer, [facility] care 06/03/2023 Hgb baseline ~10, stable at this time Continue trend CBC, transfuse <7.0 HLD Continue statin Anxiety chronic, controlled. Cont scheduled clonazepam per home regimen and doxepin. Heparin-DVT proph Full Code Admission and Anticipated Discharge Date Admission Date: September 21, 2024 Subjective pt was seen in the AM States that she still has the pressure like chest pain Some slight dizziness Review of Systems Review of Systems: All systems reviewed & are unremarkable except as noted in Subjective Physical Exam Physical Exam: General: Alert, oriented. No acute distress Psych: Appropriate mood and affect Neuro: No gross deficits HEENT: NC/AT Chest: tender to palpation. CV: RRR Resp: Breath sounds clear bilaterally, no increased effort of breathing Abdomen: Soft, nontender Extremities: No edema in lower extremities bilaterally. Results & Data Results & Data Vital Signs (Past 12 Hours) Vital Signs Temp Pulse Pulse Resp BP Pulse Ox O2 Del Method 09/23/24 07:47 36.3 C L 61 16 130/60 95 Room Air 09/23/24 07:23 61 16 95 Room Air 09/23/24 07:00 58 L 09/23/24 04:16 37.0 C 63 20 117/75 93 Room Air 09/23/24 00:15 36.4 C L 60 20 130/82 93 Room Air (1) Chest pain Chest pain type: unspecified Qualified Code(s): R07.9 - Chest pain, unspecified (2) Acute sinusitis Recurrence: not specified as recurrent Sinusitis location: unspecified location Qualified Code(s): J01.90 - Acute sinusitis, unspecified (3) Hypertension Hypertension type: unspecified Qualified Code(s): I10 - Essential (primary) hypertension (4) DM type 2 (diabetes mellitus, type 2) Diabetes mellitus complication detail: with diabetic retinopathy Diabetes mellitus complication status: with ophthalmic complications Diabetes mellitus fdc insulin use: with terminal operations supervisor use Diabetes mellitus macular edema: macular edema presence unspecified Diabetic retinopathy severity: with unspecified retinopathy severity Laterality: bilateral Qualified Code(s): E11.319 - Type 2 diabetes mellitus with unspecified diabetic retinopathy without macular edema; Z79.4 - USP (current) use of insulin (5) Asthma Asthma complication type: unspecified Asthma persistence: unspecified Asthma severity: unspecified severity Qualified Code(s): J45.909 - Unspecified asthma, uncomplicated (6) CKD (chronic kidney disease), stage III Chronic kidney disease stage 3 subtype: unspecified whether 3a or 3b Qualified Code(s): N18.30 - Chronic kidney disease, stage 3 unspecified
[2024-09-24 06:42] LABS: Basophils # (auto) 0.02 K/uL (0.00-0.20); Basophils % (auto) 0.3 %; Eosinophils # (auto) 0.17 K/uL (0.00-0.50); Eosinophils % (auto) 2.5 %; Hematocrit (blood only) 36.5 % (37.0-47.0); Hemoglobin 11.7 g/dl (12.0-16.0); Immature Granulocytes # (auto) 0.03 K/uL (0.01-0.20); Immature Granulocytes % (auto) 0.4 %; Lymphocytes # (auto) 1.71 K/uL (1.20-3.40); Mean Corpuscular Hemoglobin 29.4 pg (25.0-34.0); Mean Corpuscular Hgb Conc 32.1 g/dL (32.0-36.0); Mean Corpuscular Volume 91.7 fL (80.0-100.0); Mean Platelet Volume 11.1 fL (9.4-12.4); Monocytes # (auto) 0.56 K/uL (0.11-0.59); Monocytes % (auto) 8.2 %; Neutrophils # (auto) 4.35 K/uL (1.40-6.50); Neutrophils % (auto) 63.6 %; Platelet Count 227 K/uL (130-400); RDW Coefficient of Variation 15.1 % (11.5-14.5); RDW Standard Deviation 50.4 fL (36.4-46.3); Red Blood Count 3.98 M/uL (4.20-5.40); White Blood Count 6.84 K/ul (4.8-10.8)
[2024-09-24 07:07] LABS: BUN Creatinine Ratio 14.8 (10-20); Calcium 9.7 mg/dl (8.6-10.3); Creatinine Clr Calc Pharmacy 51.4 ml/min; Magnesium 2.2 mg/dl (1.7-2.4); Phosphorus 4.4 mg/dl (2.5-4.9); Potassium 4.3 mmol/L (3.5-5.1)
--- NOTE | 2024-09-24 09:04 | Electrocardiogram Report ---
Test Reason : Blood Pressure : */* mmHG Vent. Rate : 80 BPM Atrial Rate : 80 BPM P-R Int : 164 ms QRS Dur : 88 ms QT Int : 388 ms P-R-T Axes : 65 -10 58 degrees QTcB Int : 447 ms Normal sinus rhythm Moderate voltage criteria for LVH, may be normal variant ( R in aVL , Delvin product ) Borderline ECG When compared with ECG of 15-Mar-2024 13:29, T wave amplitude has decreased in Anterior leads Confirmed by Beni Jones ([id number]) on 09/24/2024 9:04:32 AM Referred By: Confirmed By: Beni Jones
[2024-09-24 11:46] VITALS: BP 150/80; RESP 18; TEMP 99.1; O2SAT 95
--- NOTE | 2024-09-24 15:36 | Discharge Summary ---
Discharge Summary Date of Service September 24, 2024 Principal Dx & Hospital Course #1 = Principal Diagnosis (1) Chest pain: (2) Acute sinusitis: (3) Hypertension: (4) DM type 2 (diabetes mellitus, type 2): (5) Asthma: (6) CKD (chronic kidney disease), stage III: (7) Anemia of chronic disease: Plan Ms. Alejandre is a 74 year old woman complicated past medical history includingdiabetes, on long-term insulin, iron metabolism disease, diabetic retinopathy, hyperlipidemia, moderate persistent asthma, obstructive sleep apnea does not tolerate BiPAP on nocturnal oxygen 3 to 4 L, hypertension, pulmonary hypertension, PVCs, irritable bowel syndrome, GERD, chronic kidney disease stage III, restless leg syndrome, depression, KARI, PTSD, prior COVIDadmitted for chest pain evaluation Dobutamine stress echo negative for ischemia. Orthostats positive. On lasix bid for BLE edema, but not for hf. Encouraged compression stockings, held lasix. Cardiology recommended starting spironolactone. She was treated as follows: Chest pain No events on telemetry, troponin negative x 3 multiple cardiovascular risk factors including type 2 diabetes mellitus hypertension and hyperlipidemia. stress echo negative, Study negative for stress-induced ischemia. Cardiology consulted, recommended/stated the following: -add spironolactone 12.5 mg p.o. to regimen with close laboratory follow-up -consider treating obstructive sleep apnea. -spironolactone 12.5mg added, monitor -consider resuming lasix prn Pt discharged with spironolactone 12.5mg daily with Lasix 20mg daily prn for progressive lower extremity swelling. Close PCP followup. Primary PHTN KATERIN Did not tolerate BiPAP Continue nocturnal O2 3-4L Consider cardiology recommendations as noted above Relative Hypotension, +orthostats Hypertension chronic, initially hypotensive. Held lasix continued BB- on Toprol XL 25mg qAM and 12.5mg qPM started on spironolactone 12.5mg per cardiology, Lasix changed to 20mg daily PRN on discharge with pcp f/u PT/OT eval given reported dizziness -orthostats x 2 subsequently have been normal PCP followup Chronic renal kidney disease stage III History of ATN 2/2 sepsis Patient with multiple hospitalizations with acute renal failure; thought to be multifactorial 2/2 HTN/DMTII and NSAID abuse. Autoimmune/serologic tests negative -sepsis induced ATN with a high creatinine peaking around 13 during admission November 2022 that was responsive to fluids and she did not require hemodialysis Held lasix, Lasix changed to 20mg daily PRN on discharge Cr 1.3 on discharge PCP followup Hypokalemia repleted as needed DMTII chronic, well controlled on skilled nursing insulin therapy. Cont basal/bolus insulin. Continue ASA 81 Morbid Obesity weight loss recommended for overall better health. IBS, diarrhea -Continue home Lomotil and methscopolamine prn for diarrhea/cramps PVC Continue Metoprolol 25mg daily Asthma Continue breo ellipta inhalers and montelukast Anemia of chronic disease Follow Dr. Stauffer, established care 06/03/2023 Hgb baseline ~10, stable at this time Continue trend CBC, transfuse <7.0 HLD Continue statin Anxiety chronic, controlled. Cont scheduled clonazepam per home regimen and doxepin. Notes For Next Care Provider As above Medication Changes From Visit Per cardiology: spironolactone 12.5mg daily Lasix changed to 20mg daily PRN Discontinue amoxicillin (completed treatment) Admission HPI Per Admitting Provider Liane Alejandre is a 74y/o F with PMHx significant for DM type II with bilateral mild nonproliferative retinopathy on long-term insulin therapy, moderate persistent asthma, KATERIN intolerant to CPAP and BiPAP, chronic pedal edema, HLD, HTN, primary pulmonary hypertension, PVCs, IBS, GERD with esophagitis, RLS, generalized osteoarthritis, anemia of chronic disease, medical marijuana use for chronic pain, persistent insomnia, PTSD and depression with anxiety who presented to the ED via EMS with complaint of chest pain. History obtained from the patient, at bedside, discussion with ED provider and associated chart review. Endorses 2 separate episodes of mid substernal chest pressure yesterday which both occurred with exertion whilst she was performing various yard work activities outside. These episodes lasted no longer than a few minutes and resolved with rest. She then experienced another episode of mid substernal chest pressure this morning with associated pain and dyspnea whilst cleaning around t he house. Some nausea and lightheadedness with this event as well. Describes the chest pain as mid substernal and sharp in nature with radiation up into her right jaw region and also down her left arm. No associated diaphoresis with this event. Had never experienced an episode like this before therefore she alerted her to call EMS. She received 324mg ASA and nitro spray x 2 en route to the ED with significant improvement in her chest discomfort. Endorses minimal mid substernal chest pressure during our conversation but denies any sharp pains or dyspnea. High- sensitivity troponin x 2 negative. EKG obtained in ED without any acute evidence of ST abnormalities. CXR obtained and grossly unremarkable upon review. Prior dobutamine stress echocardiogram completed in May 2020 with was negative for inducible ischemia. TTE from November 2022 with normal LVEF of 55 to 60%, borderline concentric LVH, no regional wall motion abnormalities, trace MR and trace TR. Medical marijuana use (via vape) for chronic pain. No prior cigarette use. Rare alcohol use. Admission Exam Per Admitting Provider General: Obese, F. NAD. Sitting up in bed. Very pleasant. A&Ox4. present at bedside. HEENT: Normocephalic, atraumatic. Conjunctivae normal. External ear/nose normal, oropharynx normal. Dry lips. Respiratory: Normal respiratory effort, lungs clear to auscultation bilaterally. No accessory muscle use. On RA. Cardiovascular: Regular rate and rhythm. Normal peripheral pulses. No murmurs. BLE compression stocking in place. Abdomen/GI: Normal bowel sounds, soft. Obese abdomen. Nontender to palpation in all quadrants. Extremities/Musculoskeletal: No cyanosis or clubbing. Extremities motor strength intact, actively moves all extremities. Neurologic: No overt focal deficits, CN's II-XI not formally tested but appear grossly intact bilaterally. Discharge Exam General: Alert, oriented. No acute distress Psych: Appropriate mood and affect Neuro: No gross deficits HEENT: NC/AT Chest: tender to palpation. CV: RRR Resp: Breath sounds clear bilaterally, no increased effort of breathing Abdomen: Soft, nontender Extremities: No edema in lower extremities bilaterally. Updated Medication List Medication Instructions Recorded Confirmed Type methscopolamine 2.5 mg tablet 2.5 mg PO TID PRN ABD CRAMPS 05/03/18 09/21/24 History diclofenac sodium 1 % topical gel 2 g topical QID PRN joint pain 07/22/18 09/21/24 History fluticasone furoate 100 1 inh inhalation QAM 07/22/18 09/21/24 History mcg-vilanterol 25 mcg/dose inhalation powder (Breo Ellipta) aspirin 81 mg chewable tablet 81 mg PO QAM 09/14/21 09/21/24 History atorvastatin 40 mg tablet 40 mg PO QAM 09/14/21 09/21/24 History clonazepam 0.5 mg tablet 0.5 mg PO .1-2XDAILY Anxiety 09/14/21 09/21/24 History famotidine 40 mg tablet 40 mg PO QAM 09/14/21 09/21/24 History fluticasone propionate 50 2 spray intranasal BID 09/14/21 09/21/24 History mcg/actuation nasal spray,suspension montelukast 10 mg tablet 10 mg PO QAM 09/14/21 09/21/24 History pramipexole 1 mg tablet 1 mg PO HS 09/14/21 09/21/24 History ferrous gluconate 240 mg (27 mg 240 mg PO Q OTHER DAY 12/12/22 09/21/24 History iron) tablet (Ferate) pantoprazole 40 mg tablet,delayed 40 mg PO BID #60 tabs 12/22/22 09/21/24 Rx release budesonide 0.5 mg/2 mL suspension 0.5 mg inhalation BID 06/19/23 09/21/24 History for nebulization conjugated estrogens 0.625 mg/gram 1 applic vaginal 3XWK 06/19/23 09/21/24 History vaginal cream (Premarin) doxepin 150 mg capsule 150 mg PO HS 06/19/23 09/21/24 History insulin aspart U-100 100 unit/mL 10 unit subcut TIDM 06/19/23 09/21/24 History (3 mL) subcutaneous pen (Novolog FlexPen U-100 Insulin aspart) Calcium/Vitamin D/Zinc Supp. 1 tab PO BID 09/21/24 09/21/24 History acetaminophen 500 mg tablet 1,000 mg PO BID 09/21/24 09/21/24 History (Tylenol Extra Strength) albuterol sulfate 2.5 mg/3 mL 2.5 mg inhalation Q4H PRN 09/21/24 09/21/24 History (0.083 %) solution for nebulization Shortness Of Breath Or Wheezing albuterol sulfate 90 mcg/actuation 1 - 2 inh inhalation Q4H PRN 09/21/24 09/21/24 History aerosol inhaler Shortness Of Breath Or Wheezing ascorbic acid (vitamin C) 500 mg 500 mg PO BID 09/21/24 09/21/24 History tablet (Vitamin C) benzonatate 100 mg capsule 100 mg PO TID PRN Cough 09/21/24 09/21/24 History bupropion HCl 100 mg tablet,12 hr 100 mg PO QAM 09/21/24 09/21/24 History sustained-release (Wellbutrin SR) calcitonin (salmon) 200 200 unit intranasal (ALT) QAM 09/21/24 09/21/24 History unit/actuation nasal spray diphenoxylate-atropine 2.5 2 tab PO Q6H PRN Diarrhea 09/21/24 09/21/24 History mg-0.025 mg tablet (Lomotil) dulaglutide 3 mg/0.5 mL 3 mg subcut WK 09/21/24 09/21/24 History subcutaneous pen injector (Trulicity) epinephrine 0.3 mg/0.3 mL 0.3 mg IM DIRECTED PRN Allergic 09/21/24 09/21/24 History injection, auto-injector (EpiPen) Reaction insulin glargine 100 unit/mL (3 28 unit subcut QAM 09/21/24 09/21/24 History mL) subcutaneous pen (Lantus Solostar U-100 Insulin) molnupiravir 200 mg capsule (EUA) 800 mg PO Q12H 09/21/24 09/21/24 History multivitamin 1 tab PO DAILY 09/21/24 09/21/24 History propylene glycol 0.6 % eye drops 1 drp OPB QID 09/21/24 09/21/24 History (Systane Complete) triamcinolone acetonide 0.1 % 1 applic topical BID PRN SKIN 09/21/24 09/21/24 History topical ointment IRRITATIONS furosemide 20 mg tablet (Lasix) 20 mg PO DAILY PRN edema in the 09/24/24 09/21/24 Rx lower extremities #0 tabs metoprolol succinate 25 mg 12.5 mg (1/2 x 25 mg) PO HS #15 09/24/24 Rx tablet,extended release 24 hr tabs metoprolol succinate 25 mg 25 mg PO QAM #30 tabs 09/24/24 Rx tablet,extended release 24 hr spironolactone 25 mg tablet 12.5 mg (1/2 x 25 mg) PO DAILY #15 09/24/24 Rx tabs Hospital Stay Data Consultations 09/21/24 16:05 ED Decision to Admit Stat 09/21/24 18:20 Consult Cardiology Routine Diagnostic Imagining Performed Chest X-Ray 09/21/24 13:59 XR chest 1V portable CLINICAL HISTORY: Chest pain, nonspecific COMPARISON STUDY: Chest radiograph June 19, 2023. FINDINGS: Calcific densities suggestive of joint bodies within the left glenohumeral joint are again noted. Lung volumes are mildly diminished. There is no pneumothorax or pleural effusion. Interstitial thickening is present. This may be technical. Cardiomediastinal silhouette is stable. No consolidation is identified. IMPRESSION: 1. Subtle interstitial thickening. This may be related to a hypoventilatory study or represent pulmonary vascular congestion. 2. No consolidation to suggest pneumonia. ACT 112: Negative or not required by law. Electronically signed by: Nolan Gastelum M.D. 09/21/2024 2:24 PM Discharge Instructions Given to Patient (Per Discharging Provider) Liane, You were seen by the blade groover and had a stress test done which showed that your chest pain was likely noncardiac. We recommend that you keep close followup with your primary care provider after discharge. Changes were made to your medications and you were started on the medication spironolactone. Please take it as prescribed. Please discontinue your twice daily use of the medication Lasix. Instead, take it as needed once daily only if you notice increased swelling in your lower extremities. Please also let your primary care provider know if you have increased swelling. We also started you on metoprolol to be taken nightly (12.5mg) in addition to your morning dose of 25mg. You completed treatment with amoxicillin while in the hospital. Please keep close follow up with your primary care provider after discharge. Please do not hesitate to come back to the emergency room if your symptoms worsen or return. It was a pleasure taking care of you while you were here. Total Time Total Time Spent Total Time Spent (In Minutes): 60
[2024-09-24 16:02] VITALS: PULSE 67
== END 2024-09-24 16:42 | disposition home health service (06) | DRG 313 ==
LOC: ED 13:43 → SUATTDRO 18:06 → EDINP 18:06 → 2N 21:23